=== PATIENT | female | born 1940 | race Caucasian/White ===

== ENCOUNTER 2016-11-13 09:54 | Outpatient (CLI) | payer MEDICARE, MEDICAID | END 2016-11-13 09:55 | disposition home or self-care (01) | DX: I80.209 Phlebitis and thrombophlebitis of unspecified deep vessels of unspecified lower extremity (principal) ==

== ENCOUNTER 2016-11-17 14:00 | Outpatient (CLI) | payer MEDICARE, MEDICAID | END 2016-11-17 14:01 | disposition home or self-care (01) | DX: R30.0 Dysuria (principal); F03.91 Unspecified dementia, unspecified severity, with behavioral disturbance ==

== ENCOUNTER 2016-12-19 08:18 | Outpatient (CLI) | payer MEDICARE, MEDICAID | END 2016-12-19 08:19 | disposition home or self-care (01) | DX: I80.209 Phlebitis and thrombophlebitis of unspecified deep vessels of unspecified lower extremity (principal); E03.9 Hypothyroidism, unspecified; D68.59 Other primary thrombophilia; R62.50 Unspecified lack of expected normal physiological development in childhood; R73.9 Hyperglycemia, unspecified ==

== ENCOUNTER 2017-01-29 10:39 | Outpatient (CLI) | payer MEDICARE, MEDICAID | END 2017-01-29 10:40 | disposition home or self-care (01) | DX: I80.209 Phlebitis and thrombophlebitis of unspecified deep vessels of unspecified lower extremity (principal) ==

== ENCOUNTER 2017-02-27 09:11 | Outpatient (CLI) | payer MEDICARE, MEDICAID ==
[2017-02-27 09:45] LABS: BASOPHILS % (AUTO) 0.6 %; EOSINOPHILS # (AUTO) 0.1 10^3/uL (0.0-0.7); EOSINOPHILS % (AUTO) 2.5 %; HCT - HEMATOCRIT 44.1 % (37.0-47.0); HGB - HEMOGLOBIN 14.4 g/dL (12.0-16.0); LYMPHOCYTES # (AUTO) 1.5 10^3/uL (1.5-3.5); LYMPHOCYTES % (AUTO) 34.9 %; MEAN CORPUSCULAR HEMOGLOBIN 30.4 pg (27.0-31.0); MEAN CORPUSCULAR HGB CONC 32.8 g/dL (32.0-36.0); MEAN CORPUSCULAR VOLUME 92.8 fL (81.0-99.0); MEAN PLATELET VOLUME 8.7 fL (7.9-10.8); MONOCYTES # (AUTO) 0.3 10^3/uL (0.0-1.0); MONOCYTES % (AUTO) 7.1 %; NEUTROPHILS # (AUTO) 2.4 10^3/uL (1.5-6.6); NEUTROPHILS % (AUTO) 54.9 %; NUCLEATED RED BLOOD CELLS AUTO 0.1 /100WBC; RED BLOOD COUNT 4.75 10^6/uL (4.20-5.40); RED CELL DISTRIBUTION WIDTH 14.8 % (12.0-15.0); UNCORRECTED WHITE BLOOD COUNT 4.4 x10^3/uL; WHITE BLOOD COUNT 4.4 x10^3/uL (4.8-10.8)
[2017-02-27 10:03] LABS: INR 2.3 (0.8-1.2); PT - PROTHROMBIN TIME 26.5 secs (9.9-12.6)
[2017-02-27 10:12] LABS: ALBUMIN/GLOBULIN RATIO 1.3 (1.0-2.2); BILIRUBIN,TOTAL 0.6 mg/dL (0.2-1.0); BUN - BLOOD UREA NITROGEN 13 mg/dL (6-20); CALCIUM 8.3 mg/dL (8.5-10.3); CARBON DIOXIDE - CO2 28 mmol/L (21-32); CHLORIDE 107 mmol/L (101-111); CHOL/HDL RATIO 2.9 (<4.4); CHOLESTEROL 149 mg/dL; CREATININE 0.8 mg/dL (0.4-1.0); GFR - MDRD 70 (>89); GLUCOSE 112 mg/dL (70-100); HDL CHOLESTEROL 52 mg/dL; LDL/HDL RATIO 1.4 (<4.4); POTASSIUM 3.6 mmol/L (3.5-5.0); SODIUM 142 mmol/L (135-145); TOTAL PROTEIN 6.4 g/dL (6.7-8.2); TRIGLYCERIDES 117 mg/dL; VLDL CHOLESTEROL 23 mg/dL
== END 2017-02-27 09:12 | disposition home or self-care (01) ==
LOC: LAB 09:11
PROVIDERS: ATTEND Family Medicine
DX: I80.209 Phlebitis and thrombophlebitis of unspecified deep vessels of unspecified lower extremity (principal); E03.9 Hypothyroidism, unspecified; D68.59 Other primary thrombophilia; R62.50 Unspecified lack of expected normal physiological development in childhood; R73.9 Hyperglycemia, unspecified
CPT/HCPCS: 36415; 80053; 80061; 84443; 85025; 85610

== ENCOUNTER 2017-04-02 09:55 | Outpatient (CLI) | payer MEDICARE, MEDICAID ==
[2017-04-02 10:22] LABS: INR 1.5 (0.8-1.2); PT - PROTHROMBIN TIME 16.3 secs (9.9-12.6)
== END 2017-04-02 09:56 | disposition home or self-care (01) ==
LOC: LAB 09:55
PROVIDERS: ATTEND Family Medicine
DX: I80.209 Phlebitis and thrombophlebitis of unspecified deep vessels of unspecified lower extremity (principal)
CPT/HCPCS: 36415; 85610

== ENCOUNTER 2017-04-16 10:13 | Outpatient (CLI) | payer MEDICARE, MEDICAID ==
[2017-04-16 10:32] LABS: INR 3.1 (0.8-1.2); PT - PROTHROMBIN TIME 34.6 secs (9.9-12.6)
== END 2017-04-16 10:14 | disposition home or self-care (01) ==
LOC: LAB 10:13
PROVIDERS: ATTEND Family Medicine
DX: I80.209 Phlebitis and thrombophlebitis of unspecified deep vessels of unspecified lower extremity (principal)
CPT/HCPCS: 36415; 85610

== ENCOUNTER 2017-04-24 09:30 | Outpatient (CLI) | payer MEDICARE, MEDICAID ==
[2017-04-24 10:17] LABS: PT - PROTHROMBIN TIME 45.4 secs (9.9-12.6)
== END 2017-04-24 09:31 | disposition home or self-care (01) ==
LOC: LAB 09:30
PROVIDERS: ATTEND Family Medicine
DX: I80.209 Phlebitis and thrombophlebitis of unspecified deep vessels of unspecified lower extremity (principal)
CPT/HCPCS: 36415; 85610

== ENCOUNTER 2017-05-08 09:29 | Outpatient (CLI) | payer MEDICARE, MEDICAID ==
[2017-05-08 09:53] LABS: INR 1.8 (0.8-1.2); PT - PROTHROMBIN TIME 20.1 secs (9.9-12.6)
== END 2017-05-08 09:30 | disposition home or self-care (01) ==
LOC: LAB 09:29
PROVIDERS: ATTEND Family Medicine
DX: I80.209 Phlebitis and thrombophlebitis of unspecified deep vessels of unspecified lower extremity (principal)
CPT/HCPCS: 36415; 85610

== ENCOUNTER 2017-05-14 09:53 | Outpatient (CLI) | payer MEDICARE, MEDICAID ==
[2017-05-14 10:24] LABS: INR 2.4 (0.8-1.2); PT - PROTHROMBIN TIME 26.6 secs (9.9-12.6)
== END 2017-05-14 09:54 | disposition home or self-care (01) ==
LOC: LAB 09:53
PROVIDERS: ATTEND Family Medicine
DX: I80.209 Phlebitis and thrombophlebitis of unspecified deep vessels of unspecified lower extremity (principal)
CPT/HCPCS: 36415; 85610

== ENCOUNTER 2017-05-28 10:15 | Outpatient (CLI) | payer MEDICARE, MEDICAID ==
[2017-05-28 10:41] LABS: INR 2.3 (0.8-1.2); PT - PROTHROMBIN TIME 26.3 secs (9.9-12.6)
== END 2017-05-28 10:16 | disposition home or self-care (01) ==
LOC: LAB 10:15
PROVIDERS: ATTEND Family Medicine
DX: I80.209 Phlebitis and thrombophlebitis of unspecified deep vessels of unspecified lower extremity (principal)
CPT/HCPCS: 36415; 85610

== ENCOUNTER 2017-06-25 10:31 | Outpatient (CLI) | payer MEDICARE, MEDICAID ==
[2017-06-25 11:08] LABS: INR 2.1 (0.8-1.2); PT - PROTHROMBIN TIME 23.9 secs (9.9-12.6)
== END 2017-06-25 10:32 | disposition home or self-care (01) ==
LOC: LAB 10:31
PROVIDERS: ATTEND Family Medicine
DX: I80.209 Phlebitis and thrombophlebitis of unspecified deep vessels of unspecified lower extremity (principal)
CPT/HCPCS: 36415; 85610

== ENCOUNTER 2017-07-23 10:40 | Outpatient (CLI) | payer MEDICARE, MEDICAID ==
[2017-07-23 11:16] LABS: INR 2.4 (0.8-1.2); PT - PROTHROMBIN TIME 26.8 secs (9.9-12.6)
== END 2017-07-23 10:41 | disposition home or self-care (01) ==
LOC: LAB 10:40
PROVIDERS: ATTEND Family Medicine
DX: I80.209 Phlebitis and thrombophlebitis of unspecified deep vessels of unspecified lower extremity (principal)
CPT/HCPCS: 36415; 85610

== ENCOUNTER 2017-09-01 10:34 | Outpatient (CLI) | payer MEDICARE, MEDICAID ==
[2017-09-01 11:39] LABS: BASOPHILS % (AUTO) 0.6 %; EOSINOPHILS # (AUTO) 0.1 10^3/uL (0.0-0.7); EOSINOPHILS % (AUTO) 1.5 %; HCT - HEMATOCRIT 42.6 % (37.0-47.0); LYMPHOCYTES % (AUTO) 23.6 %; MEAN CORPUSCULAR HEMOGLOBIN 30.6 pg (27.0-31.0); MEAN CORPUSCULAR HGB CONC 32.9 g/dL (32.0-36.0); MONOCYTES # (AUTO) 0.3 10^3/uL (0.0-1.0); MONOCYTES % (AUTO) 6.5 %; NEUTROPHILS # (AUTO) 2.9 10^3/uL (1.5-6.6); NEUTROPHILS % (AUTO) 67.8 %; RED BLOOD COUNT 4.57 10^6/uL (4.20-5.40); RED CELL DISTRIBUTION WIDTH 14.2 % (12.0-15.0); UNCORRECTED WHITE BLOOD COUNT 4.3 x10^3/uL; WHITE BLOOD COUNT 4.3 x10^3/uL (4.8-10.8)
[2017-09-01 11:45] LABS: INR 1.6 (0.8-1.2); PT - PROTHROMBIN TIME 17.9 secs (9.9-12.6)
[2017-09-01 12:02] LABS: ALBUMIN/GLOBULIN RATIO 1.2 (1.0-2.2); BILIRUBIN,TOTAL 0.6 mg/dL (0.2-1.0); BUN - BLOOD UREA NITROGEN 11 mg/dL (6-20); CALCIUM 8.7 mg/dL (8.5-10.3); CARBON DIOXIDE - CO2 27 mmol/L (21-32); CHLORIDE 103 mmol/L (101-111); CREATININE 0.9 mg/dL (0.4-1.0); GFR - MDRD 61 (>89); GLUCOSE 160 mg/dL (70-100); POTASSIUM 3.9 mmol/L (3.5-5.0); SODIUM 141 mmol/L (135-145); TOTAL PROTEIN 6.6 g/dL (6.7-8.2)
== END 2017-09-01 10:35 | disposition home or self-care (01) ==
LOC: LAB 10:34
PROVIDERS: ATTEND Family Medicine
DX: I80.209 Phlebitis and thrombophlebitis of unspecified deep vessels of unspecified lower extremity (principal); E03.9 Hypothyroidism, unspecified; F03.91 Unspecified dementia, unspecified severity, with behavioral disturbance; D68.59 Other primary thrombophilia; E78.5 Hyperlipidemia, unspecified
CPT/HCPCS: 36415; 80053; 84443; 85025; 85610

== ENCOUNTER 2017-09-24 10:50 | Outpatient (CLI) | payer MEDICARE, MEDICAID ==
[2017-09-24 11:57] LABS: INR 2.2 (0.8-1.2); PT - PROTHROMBIN TIME 24.5 secs (9.9-12.6)
== END 2017-09-24 10:51 | disposition home or self-care (01) ==
LOC: LAB 10:50
PROVIDERS: ATTEND Family Medicine
DX: I80.209 Phlebitis and thrombophlebitis of unspecified deep vessels of unspecified lower extremity (principal)
CPT/HCPCS: 36415; 85610

== ENCOUNTER 2017-12-17 10:44 | Outpatient (CLI) | payer MEDICARE, MEDICAID ==
[2017-12-17 11:06] LABS: INR 3.5 (0.8-1.2); PT - PROTHROMBIN TIME 37.5 secs (9.9-12.6)
== END 2017-12-17 10:45 | disposition home or self-care (01) ==
LOC: LAB 10:44
PROVIDERS: ATTEND Family Medicine
DX: I80.209 Phlebitis and thrombophlebitis of unspecified deep vessels of unspecified lower extremity (principal)
CPT/HCPCS: 36415; 85610

== ENCOUNTER 2017-12-31 10:29 | Outpatient (CLI) | payer MEDICARE, MEDICAID ==
[2017-12-31 11:08] LABS: INR 2.3 (0.8-1.2); PT - PROTHROMBIN TIME 24.9 secs (9.9-12.6)
== END 2017-12-31 10:30 | disposition home or self-care (01) ==
LOC: LAB 10:29
PROVIDERS: ATTEND Family Medicine
DX: I80.209 Phlebitis and thrombophlebitis of unspecified deep vessels of unspecified lower extremity (principal)
CPT/HCPCS: 36415; 85610

== ENCOUNTER 2018-01-07 10:35 | Outpatient (CLI) | payer MEDICARE, MEDICAID ==
[2018-01-07 11:14] LABS: INR 3.6 (0.8-1.2); PT - PROTHROMBIN TIME 38.3 secs (9.9-12.6)
== END 2018-01-07 10:36 | disposition home or self-care (01) ==
LOC: LAB 10:35
PROVIDERS: ATTEND Family Medicine
DX: I80.209 Phlebitis and thrombophlebitis of unspecified deep vessels of unspecified lower extremity (principal)
CPT/HCPCS: 36415; 85610

== ENCOUNTER 2018-01-15 10:22 | Outpatient (CLI) | payer MEDICARE, MEDICAID ==
[2018-01-15 11:17] LABS: INR 2.5 (0.8-1.2); PT - PROTHROMBIN TIME 26.8 secs (9.9-12.6)
== END 2018-01-15 10:23 | disposition home or self-care (01) ==
LOC: LAB 10:22
PROVIDERS: ATTEND Family Medicine
DX: I80.209 Phlebitis and thrombophlebitis of unspecified deep vessels of unspecified lower extremity (principal)
CPT/HCPCS: 36415; 85610

== ENCOUNTER 2018-01-21 10:16 | Outpatient (CLI) | payer MEDICARE, MEDICAID ==
[2018-01-21 10:39] LABS: INR 2.9 (0.8-1.2); PT - PROTHROMBIN TIME 31.3 secs (9.9-12.6)
== END 2018-01-21 10:17 | disposition home or self-care (01) ==
LOC: LAB 10:16
PROVIDERS: ATTEND Family Medicine
DX: I80.209 Phlebitis and thrombophlebitis of unspecified deep vessels of unspecified lower extremity (principal)
CPT/HCPCS: 36415; 85610

== ENCOUNTER 2018-02-04 10:33 | Outpatient (CLI) | payer MEDICARE, MEDICAID ==
[2018-02-04 11:10] LABS: INR 2.8 (0.8-1.2); PT - PROTHROMBIN TIME 30.9 secs (9.9-12.6)
== END 2018-02-04 10:34 | disposition home or self-care (01) ==
LOC: LAB 10:33
PROVIDERS: ATTEND Family Medicine
DX: I80.209 Phlebitis and thrombophlebitis of unspecified deep vessels of unspecified lower extremity (principal)
CPT/HCPCS: 36415; 85610

== ENCOUNTER 2018-03-29 10:07 | Outpatient (CLI) | payer MEDICARE, MEDICAID ==
[2018-03-29 10:41] LABS: PT - PROTHROMBIN TIME 32.7 secs (9.9-12.6)
== END 2018-03-29 10:08 | disposition home or self-care (01) ==
LOC: LAB 10:07
PROVIDERS: ATTEND Family Medicine
DX: I80.209 Phlebitis and thrombophlebitis of unspecified deep vessels of unspecified lower extremity (principal)
CPT/HCPCS: 36415; 85610

== ENCOUNTER 2018-05-04 10:05 | Outpatient (CLI) | payer MEDICARE, MEDICAID ==
[2018-05-04 11:18] LABS: INR 1.7 (0.8-1.2); PT - PROTHROMBIN TIME 18.7 secs (9.9-12.6)
== END 2018-05-04 10:06 | disposition home or self-care (01) ==
LOC: LAB 10:05
PROVIDERS: ATTEND Family Medicine
DX: I80.209 Phlebitis and thrombophlebitis of unspecified deep vessels of unspecified lower extremity (principal)
CPT/HCPCS: 36415; 85610

== ENCOUNTER 2018-05-14 10:21 | Outpatient (CLI) | payer MEDICARE, MEDICAID ==
[2018-05-14 10:52] LABS: INR 2.6 (0.8-1.2); PT - PROTHROMBIN TIME 28.7 secs (9.9-12.6)
== END 2018-05-14 10:22 | disposition home or self-care (01) ==
LOC: LAB 10:21
PROVIDERS: ATTEND Family Medicine
DX: I80.209 Phlebitis and thrombophlebitis of unspecified deep vessels of unspecified lower extremity (principal)
CPT/HCPCS: 36415; 85610

== ENCOUNTER 2018-07-06 10:46 | Outpatient (CLI) | payer MEDICARE, MEDICAID ==
[2018-07-06 11:21] LABS: INR 3.4 (0.8-1.2); PT - PROTHROMBIN TIME 36.4 secs (9.9-12.6)
== END 2018-07-06 10:47 | disposition home or self-care (01) ==
LOC: LAB 10:46
PROVIDERS: ATTEND Family Medicine
DX: I80.209 Phlebitis and thrombophlebitis of unspecified deep vessels of unspecified lower extremity (principal)
CPT/HCPCS: 36415; 85610

== ENCOUNTER 2018-07-20 14:55 | Outpatient (CLI) | payer MEDICARE, MEDICAID ==
--- NOTE | 2018-07-20 16:38 | Ultrasound Report ---
Reason: LEG EDEMA, RIGHT Procedure Date: 07/20/2018 Accession Number: [id number] / [id number] Procedure: US - Duplex Ext Veins Right CPT Code: FULL RESULT: EXAM: RIGHT LOWER EXTREMITY VENOUS ULTRASOUND EXAM DATE: 07/20/2018 03:59 PM. CLINICAL HISTORY: LEG EDEMA, RIGHT. COMPARISON: None. TECHNIQUE: Real-time sonographic vascular imaging was performed by the library technician through the lower extremity utilizing both color-flow and Doppler spectral analysis. Multiple patient admitting representative static images were saved for review. FINDINGS: Right side Common Femoral Vein (CFV): Normal. CFV-GSV [place]unction, Profunda Femoral Vein (PFV), and Proximal Femoral Vein: Small amount of nonocclusive predominantly linear material within the veins , question residual thrombus. Femoral Vein (FV) Mid: Normal. Femoral Vein (FV) Dist: Normal. Popliteal Vein: Normal. Posterior Tibial Veins and peroneal Veins: Obscured by lower extremity edema. Other: None. IMPRESSION: No evidence for occlusive venous thrombosis right lower extremity above the knee. Linear material within the proximal profundafemoral and femoral veins may represent residual organized thrombus from prior DVT. RADIA
== END 2018-07-20 14:56 | disposition home or self-care (01) ==
LOC: DI 14:55
PROVIDERS: ATTEND Physician Assistant
DX: R60.0 Localized edema (principal); Z86.718 Personal history of other venous thrombosis and embolism; Z79.01 Long term (current) use of anticoagulants

== ENCOUNTER 2018-09-02 11:10 | Outpatient (CLI) | payer MEDICARE, MEDICAID | END 2018-09-02 11:11 | disposition home or self-care (01) | LOC: LAB 11:10 | PROVIDERS: ATTEND Family Medicine | DX: D68.59 Other primary thrombophilia (principal) | CPT/HCPCS: 85610 ==

== ENCOUNTER 2018-12-07 10:43 | Outpatient (CLI) | payer MEDICARE, MEDICAID | END 2018-12-07 10:44 | disposition home or self-care (01) | LOC: LAB 10:43 | PROVIDERS: ATTEND Family Medicine | DX: D68.59 Other primary thrombophilia (principal) | CPT/HCPCS: 85610 ==

== ENCOUNTER 2018-12-21 11:01 | Outpatient (CLI) | payer MEDICARE, MEDICAID | END 2018-12-21 11:02 | disposition home or self-care (01) | LOC: LAB 11:01 | PROVIDERS: ATTEND Family Medicine | DX: D68.59 Other primary thrombophilia (principal) | CPT/HCPCS: 85610 ==

== ENCOUNTER 2019-01-23 08:00 | Outpatient (CLI) | payer MEDICARE, MEDICAID | END 2019-01-23 23:59 | disposition home or self-care (01) | LOC: LAB.R 08:00 | PROVIDERS: ATTEND Family Medicine | DX: N39.0 Urinary tract infection, site not specified (principal) | CPT/HCPCS: 87086; 87181 ==

== ENCOUNTER 2019-02-07 14:37 | Outpatient (CLI) | payer MEDICARE, MEDICAID | END 2019-02-07 14:38 | disposition home or self-care (01) | LOC: LAB 14:37 | PROVIDERS: ATTEND Family Medicine | DX: D68.59 Other primary thrombophilia (principal) | CPT/HCPCS: 85610 ==

== ENCOUNTER 2019-02-16 08:00 | Outpatient (CLI) | payer MEDICARE, MEDICAID | END 2019-02-16 23:59 | disposition home or self-care (01) | LOC: LAB.WCP 08:00 | PROVIDERS: ATTEND Family Medicine | DX: D68.59 Other primary thrombophilia (principal) ==

== ENCOUNTER 2019-03-10 10:05 | Outpatient (CLI) | payer MEDICARE, MEDICAID ==
[2019-03-10 11:00] LABS: BASOPHILS % (AUTO) 0.7 %; EOSINOPHILS # (AUTO) 0.1 10^3/uL (0.0-0.7); EOSINOPHILS % (AUTO) 2.1 %; LYMPHOCYTES # (AUTO) 1.5 10^3/uL (1.5-3.5); LYMPHOCYTES % (AUTO) 32.3 %; MEAN CORPUSCULAR HEMOGLOBIN 30.9 pg (27.0-31.0); MEAN CORPUSCULAR HGB CONC 33.1 g/dL (32.0-36.0); MEAN CORPUSCULAR VOLUME 93.4 fL (81.0-99.0); MEAN PLATELET VOLUME 8.3 fL (7.9-10.8); MONOCYTES # (AUTO) 0.4 10^3/uL (0.0-1.0); MONOCYTES % (AUTO) 7.5 %; NEUTROPHILS # (AUTO) 2.7 10^3/uL (1.5-6.6); NEUTROPHILS % (AUTO) 57.4 %; PLT - PLATELET COUNT 158 10^3/uL (130-450); RED BLOOD COUNT 4.53 10^6/uL (4.20-5.40); RED CELL DISTRIBUTION WIDTH 14.7 % (12.0-15.0); WHITE BLOOD COUNT 4.8 x10^3/uL (4.8-10.8)
[2019-03-10 11:15] LABS: ALBUMIN 3.8 g/dL (3.2-5.5); ALBUMIN/GLOBULIN RATIO 1.3 (1.0-2.2); ALKALINE PHOSPHATASE 68 IU/L (42-121); ALT ALANINE AMINOTRANSFERASE 13 IU/L (10-60); AST ASPARTATE AMINOTRANSFERASE 17 IU/L (10-42); BILIRUBIN,TOTAL 0.7 mg/dL (0.2-1.0); BUN - BLOOD UREA NITROGEN 15 mg/dL (6-20); CALCIUM 8.5 mg/dL (8.5-10.3); CARBON DIOXIDE - CO2 25 mmol/L (21-32); CHLORIDE 107 mmol/L (101-111); CHOL/HDL RATIO 2.5 (<4.4); CHOLESTEROL 157 mg/dL; CREATININE 0.9 mg/dL (0.4-1.0); GFR - MDRD 61 (>89); GLUCOSE 116 mg/dL (70-100); HDL CHOLESTEROL 64 mg/dL; LDL CHOLESTEROL,CALCULATED 61 mg/dL; SODIUM 144 mmol/L (135-145); TOTAL PROTEIN 6.8 g/dL (6.7-8.2); VLDL CHOLESTEROL 32 mg/dL
== END 2019-03-10 10:06 | disposition home or self-care (01) ==
LOC: LAB 10:05
PROVIDERS: ATTEND Family Medicine
DX: D68.59 Other primary thrombophilia (principal); E03.9 Hypothyroidism, unspecified; E78.5 Hyperlipidemia, unspecified
CPT/HCPCS: 36415; 80053; 80061; 83721; 84443; 85025; 85610

== ENCOUNTER 2019-03-10 10:40 | Emergency (ER) | payer MEDICARE, MEDICAID ==
--- NOTE | 2019-03-10 11:17 | ED Physician Documentation ---
PD HPI LOWER EXT INJURY - Stated complaint Stated Complaint: RT KNEE PX - Chief complaint Chief Complaint: Trauma Ext - History obtained from History obtained from: Patient - History of Present Illness PD HPI LOW EXT INJURY LOCATION: Right, Knee Type of injury: Twist (maybe). No: Fall, Blunt / blow Where injury occurred: Home Timing - onset: How many days ago (3) Timing - duration: Days (3) Timing - details: Gradual onset, Still present. No: Abrupt onset Improved by: No: Rest Worsened by: Moving. No: Palpating Associated symptoms: Swelling (some swelling right anterior knee.). No: Weakness, Numbness Similar symptoms before: Diagnosis (knee arthritis) Review of Systems Constitutional: denies: Fever, Chills Cardiac: denies: Chest pain / pressure, Palpitations Respiratory: denies: Dyspnea, Cough Skin: denies: Rash, Lesions PD PAST MEDICAL HISTORY - Past Medical History Cardiovascular: None Musculoskeletal: Osteoarthritis - Present Medications Home Medications: Ambulatory Orders Medication Instructions Recorded Confirmed Naproxen 375 mg PO BID #20 tablet 03/10/19 Tramadol HCl 50 mg PO Q6H PRN #20 tablet 03/10/19 - Allergies Allergies/Adverse Reactions: Allergies Allergy/AdvReac Type Severity Reaction Status Date / Time No Known Drug Allergies Allergy Verified 03/10/19 10:50 PD ED PE NORMAL - Vitals Vital signs reviewed: Yes - General General: Alert and oriented X 3, No acute distress, Well developed/nourished - Neck Neck: Supple, no meningeal sign, No adenopathy - Cardiac Cardiac: RRR, No murmur - Respiratory Respiratory: Clear bilaterally - Derm Derm: Normal color - Extremities Extremities: Other (right knee with some swelling anteriorly and mild joint effusion. No redness nor warmth to it.) - Neuro Neuro: No motor deficit, No sensory deficit Results - Vitals Vitals: Vital Signs - 24 hr 03/10/19 10:45 Temperature 36.7 C Heart Rate 75 Respiratory 18 Rate O2 Saturation 95 Oxygen O2 Source Room air - Rads (name of study) right knee Radiology: Prelim report reviewed (significant arthritis; no fractures), See rad report PD MEDICAL DECISION MAKING - ED course Complexity details: considered differential, d/w patient (and one of the owners of her [facility]. ) Departure - Departure Disposition: 01 Home, Self Care Clinical Impression: Knee pain, acute Qualifiers: Laterality: right Qualified Code(s): M25.561 - Pain in right knee Acute meniscal injury of knee Qualifiers: Encounter type: initial encounter Laterality: right Qualified Code(s): S83.8X1A - Sprain of other specified parts of right knee, initial encounter Condition: Stable Record reviewed to determine appropriate education?: Yes Instructions: ED Meniscal Injury Knee Poss Follow-Up: Brayden Leigh MD [Primary Care Provider] - Prescriptions: Naproxen 375 mg PO BID #20 tablet Tramadol HCl 50 mg PO Q6H PRN #20 tablet PRN Reason: Pain Comments: There is significant arthritis as expected on your knee x-ray. No obvious fractures. Your symptoms and exam are suggestive of a cartilage problem (meniscus). Use the knee brace when up and around over the next week. You do not have to wear it when you rested and in fact to be good to have it off when resting so your knee does not get too stiff. Use some anti-inflammatories of naproxen twice daily for the next week. Use Tylenol 3 or 4 times a day regularly for the next week. To that add tramadol if needed for pain. Follow-up with your primary care next week for reevaluation of the knee. Call for an appointment. Discharge Date/Time: 03/10/19 12:36
--- NOTE | 2019-03-10 11:32 | XRAY Report ---
Reason: knee pain Procedure Date: 03/10/2019 Accession Number: [id number] / [id number] Procedure: XR - Knee 4 View RT CPT Code: FULL RESULT: EXAM: RIGHT KNEE RADIOGRAPHY EXAM DATE: 03/10/2019 10:57 AM. CLINICAL HISTORY: Knee pain. COMPARISON: KNEE 2 VIEW RT 07/06/2018 2:00 PM. TECHNIQUE: 3 views. FINDINGS: Bones: No acute bony abnormality. Joints: Tricompartmental osteoarthritis which is severe in the patellofemoral compartment. No joint effusion. Soft Tissues: Normal. No soft tissue swelling. IMPRESSION: 1. No acute bony abnormality or joint effusion. 2. Severe patellofemoral joint osteoarthritis. RADIA
[2019-03-10] MEDS ORDERED: traMADol 50 MG TABLET PO STA (11:46)
[2019-03-10] MEDS ORDERED: ACETAMINOPHEN 325 MG TABLET PO STA (11:46)
== END 2019-03-10 12:36 | disposition home or self-care (01) ==
LOC: ED 10:40
DX: S83.8X1A Sprain of other specified parts of right knee, initial encounter (principal); X50.1XXA Overexertion from prolonged static or awkward postures, initial encounter; Y92.099 Unspecified place in other non-institutional residence as the place of occurrence of the external cause; M17.11 Unilateral primary osteoarthritis, right knee; D68.59 Other primary thrombophilia; E03.9 Hypothyroidism, unspecified; E78.5 Hyperlipidemia, unspecified
CPT/HCPCS: 73564; 99283; A9270; 36415; 80053; 80061; 83721; 84443; 85025; 85610

== ENCOUNTER 2019-04-13 09:37 | Outpatient (CLI) | payer MEDICARE, MEDICAID | END 2019-04-13 09:38 | disposition home or self-care (01) | LOC: LAB 09:37 | PROVIDERS: ATTEND Family Medicine | DX: D68.59 Other primary thrombophilia (principal) | CPT/HCPCS: 85610 ==

== ENCOUNTER 2019-04-15 15:10 | Outpatient (CLI) | payer MEDICARE, MEDICAID ==
[2019-04-15 18:43] LABS: BASOPHILS % (AUTO) 0.6 %; EOSINOPHILS # (AUTO) 0.1 10^3/uL (0.0-0.7); EOSINOPHILS % (AUTO) 1.1 %; HGB - HEMOGLOBIN 12.9 g/dL (12.0-16.0); LYMPHOCYTES # (AUTO) 1.7 10^3/uL (1.5-3.5); LYMPHOCYTES % (AUTO) 31.4 %; MEAN CORPUSCULAR HEMOGLOBIN 29.7 pg (27.0-31.0); MEAN CORPUSCULAR HGB CONC 30.1 g/dL (32.0-36.0); MEAN CORPUSCULAR VOLUME 98.6 fL (81.0-99.0); MEAN PLATELET VOLUME 10.8 fL (7.9-10.8); MONOCYTES # (AUTO) 0.4 10^3/uL (0.0-1.0); MONOCYTES % (AUTO) 6.4 %; NEUTROPHILS # (AUTO) 3.3 10^3/uL (1.5-6.6); NEUTROPHILS % (AUTO) 60.1 %; PLT - PLATELET COUNT 248 10^3/uL (130-450); RED BLOOD COUNT 4.34 10^6/uL (4.20-5.40); RED CELL DISTRIBUTION WIDTH 14.6 % (12.0-15.0); WHITE BLOOD COUNT 5.4 x10^3/uL (4.8-10.8)
[2019-04-15 19:16] LABS: ALBUMIN 3.4 g/dL (3.2-5.5); BILIRUBIN,TOTAL 0.7 mg/dL (0.2-1.0); CALCIUM 8.7 mg/dL (8.5-10.3); CREATININE 0.9 mg/dL (0.4-1.0); TOTAL PROTEIN 6.7 g/dL (6.7-8.2)
== END 2019-04-15 15:11 | disposition home or self-care (01) ==
LOC: LAB.WCP 15:10
PROVIDERS: ATTEND Family Medicine
DX: R60.0 Localized edema (principal); R25.1 Tremor, unspecified
CPT/HCPCS: 36415; 80053; 84443; 85025

== ENCOUNTER 2019-05-10 17:34 | Outpatient (CLI) | payer MEDICARE, MEDICAID | END 2019-05-10 17:35 | disposition home or self-care (01) | LOC: LAB 17:34 | PROVIDERS: ATTEND Family Medicine | DX: D68.59 Other primary thrombophilia (principal) | CPT/HCPCS: 85610 ==

== ENCOUNTER 2019-05-24 10:21 | Outpatient (CLI) | payer MEDICARE, MEDICAID | END 2019-05-24 10:22 | disposition home or self-care (01) | LOC: LAB 10:21 | PROVIDERS: ATTEND Family Medicine | DX: D68.59 Other primary thrombophilia (principal) | CPT/HCPCS: 85610 ==

== ENCOUNTER 2019-06-22 09:39 | Outpatient (CLI) | payer MEDICARE, MEDICAID | END 2019-06-22 09:40 | disposition home or self-care (01) | LOC: LAB 09:39 | PROVIDERS: ATTEND Family Medicine | DX: D68.59 Other primary thrombophilia (principal) | CPT/HCPCS: 85610 ==

== ENCOUNTER 2019-07-22 18:40 | Emergency (ER) | payer MEDICARE, MEDICAID ==
[2019-07-22] MEDS ORDERED: MELOXICAM 7.5 MG TABLET PO STA (20:07)
--- NOTE | 2019-07-22 20:11 | ED Physician Documentation ---
History of Present Illness - Stated complaint Stated Complaint: RT KNEE PX - Chief complaint Chief Complaint: Ext Problem - History obtained from History obtained from: Patient, Family - History of Present Illness Timing: Other (4 months) Pain level max: 5 Pain level now: 2 - Additonal information Additional information: Patient with right knee pain for at least 4 months. Her family home brought her in tonight in an attempt to get an MRI for her knee. There is no new injury. She uses a walker to ambulate. She is not wearing her brace. She never followed up with her primary care provider or orthopedics for further evaluation of her potential meniscus injury 4 months ago. She is taken Tylenol for pain. Review of Systems Constitutional: denies: Fever Musculoskeletal: denies: Neck pain, Back pain PD PAST MEDICAL HISTORY - Past Medical History Past Medical History: Yes Cardiovascular: None Endocrine/Autoimmune: HyPOthyroidism GI: Chronic constipation Psych: Anxiety Musculoskeletal: Osteoarthritis Derm: Psoriasis - Past Surgical History Past Surgical History: No - Present Medications Home Medications: Ambulatory Orders Medication Instructions Recorded Confirmed Naproxen 375 mg PO BID #20 tablet 03/10/19 07/22/19 Diclofenac Sodium [Voltaren] 4 gm TP TID PRN #1 gel..gram. 07/22/19 Levothyroxine [Synthroid] 1 tab PO DAILY 07/22/19 07/22/19 Potassium Chloride [K-Dur] 10 meq PO DAILY 07/22/19 07/22/19 Simvastatin [Zocor] 20 mg PO DAILY 07/22/19 07/22/19 Torsemide 40 mg PO DAILY 07/22/19 07/22/19 Warfarin [Coumadin] 5 mg PO DAILY 07/22/19 07/22/19 risperiDONE [Risperdal] 1 tab PO BID 07/22/19 07/22/19 traZODone [Desyrel] 200 mg PO DAILY 07/22/19 07/22/19 - Allergies Allergies/Adverse Reactions: Allergies Allergy/AdvReac Type Severity Reaction Status Date / Time Penicillins Allergy Unknown Verified 07/22/19 19:30 - Social History Does the pt smoke?: No Smoking Status: Never smoker Does the pt drink ETOH?: No Does the pt have substance abuse?: No - Immunizations Immunizations are current?: Yes - POLST Patient has POLST: No PD ED PE NORMAL - Vitals Vital signs reviewed: Yes - General General: Alert and oriented X 3, No acute distress - HEENT HEENT: Moist mucous membranes - Neck Neck: Supple, no meningeal sign - Extremities Extremities: No tenderness to palpate, Normal ROM s pain, No edema, No calf tenderness / cord, Other (Normal examination of the right knee.) - Neuro Neuro: Alert and oriented X 3 Results - Vitals Vitals: Oxygen O2 Source Room air - Labs Labs: Laboratory Tests 07/22/19 20:19 Whole Blood INR 1.9 H - Rads (name of study) Right knee x-ray Radiology: Prelim report reviewed, EMP read contemporaneously, See rad report (No acute abnormality) PD MEDICAL DECISION MAKING - ED course Complexity details: reviewed results, considered differential, d/w patient ED course: No acute abnormalities. No emergency medical condition. Will trial on Voltaren gel for home. Recommend that they keep her in the brace to help with her knee and that she follow-up with orthopedics and her doctor. Patient counseled regarding signs and symptoms for which I believe and urgent re-evaluation would be necessary. Patient with good understanding of and agreement to plan and is comfortable going home at this time This document was made in part using voice recognition software. While efforts are made to proofread this document, sound alike and grammatical errors may occur. Departure - Departure Disposition: 01 Home, Self Care Clinical Impression: Osteoarthritis Qualifiers: Osteoarthritis location: knee Osteoarthritis type: unspecified Laterality: right Qualified Code(s): M17.11 - Unilateral primary osteoarthritis, right knee Condition: Good Instructions: ED Degenerative Joint Disease Follow-Up: Brayden Leigh MD [Primary Care Provider] - Within 1 week [facility] [Provider Group] Prescriptions: Diclofenac Sodium [Voltaren] 4 gm TP TID PRN #1 gel..gram. PRN Reason: knee pain Comments: The x-ray does not show any significant changes. She needs to use the brace at home. We will trial her on Voltaren gel and see if this helps her symptoms. She can follow-up with her doctor and orthopedics for further care. Discharge Date/Time: 07/22/19 21:39
--- NOTE | 2019-07-22 21:05 | XRAY Report ---
Reason: R knee pain, no injury Procedure Date: 07/22/2019 Accession Number: [id number] / [id number] Procedure: XR - Knee 4 View RT CPT Code: FULL RESULT: EXAM: RIGHT KNEE RADIOGRAPHY EXAM DATE: 07/22/2019 08:33 PM. CLINICAL HISTORY: Right knee pain. COMPARISON: KNEE 4 VIEW RT 03/10/2019 10:57 AM. TECHNIQUE: 4 views. FINDINGS: Bones: The bones are osteopenic. No displaced acute fracture identified. No suspicious osseous lesion. Joints: Severe patellofemoral compartment osteoarthritis with small knee joint effusion, similar to prior. Again moderate medial and lateral compartment osteoarthritis. No dislocation. Other: Diffuse soft tissue swelling. IMPRESSION: 1. No acute osseous abnormality. 2. No significant change from prior. RADIA
[2019-07-22 21:37] VITALS: BP 155/86
== END 2019-07-22 21:39 | disposition home or self-care (01) ==
LOC: ED 18:40
DX: M17.11 Unilateral primary osteoarthritis, right knee (principal); Z91.19 Patient's noncompliance with other medical treatment and regimen; Z79.01 Long term (current) use of anticoagulants
CPT/HCPCS: 73564; 85610; 99284; A9270

== ENCOUNTER 2019-10-05 07:00 | Outpatient (CLI) | payer MEDICARE, MEDICAID | END 2019-10-05 23:59 | disposition home or self-care (01) | LOC: LAB.R 07:00 | PROVIDERS: ATTEND Family Medicine | DX: N39.0 Urinary tract infection, site not specified (principal) | CPT/HCPCS: 87086 ==

== ENCOUNTER 2020-01-11 11:02 | Outpatient (CLI) | payer MEDICARE, MEDICAID | END 2020-01-11 11:03 | disposition critical access hospital (66) | LOC: EMS 11:02 | PROVIDERS: ATTEND Surgery | DX: R41.82 Altered mental status, unspecified (principal) | CPT/HCPCS: A0425; A0427 ==

== ENCOUNTER 2020-01-11 11:16 | Inpatient (IN) | payer MEDICARE, MEDICAID ==
--- NOTE | 2020-01-11 11:20 | ED Physician Documentation ---
PD HPI ALTERED MENTAL STATUS - Stated complaint Stated Complaint: POSS STROKE - History obtained from History obtained from: EMS - History of Present Illness Timing - onset: Today (79-year-old woman who is on warfarin I guess became very altered this morning around 930 with some strokelike symptoms. She is somnolent and unable to give any history. Per the paramedics her blood sugar was in the 190s prior to arrival.) Review of Systems Unable to obtain: AMS PD PAST MEDICAL HISTORY - Past Medical History Cardiovascular: None Endocrine/Autoimmune: HyPOthyroidism GI: Chronic constipation Psych: Anxiety Musculoskeletal: Osteoarthritis Derm: Psoriasis - Past Surgical History Past Surgical History: No - Present Medications Home Medications: Ambulatory Orders Medication Instructions Recorded Confirmed Naproxen 375 mg PO BID #20 tablet 03/10/19 07/22/19 Diclofenac Sodium [Voltaren] 4 gm TP TID PRN #1 gel..gram. 07/22/19 Levothyroxine [Synthroid] 1 tab PO DAILY 07/22/19 07/22/19 Potassium Chloride [K-Dur] 10 meq PO DAILY 07/22/19 07/22/19 Simvastatin [Zocor] 20 mg PO DAILY 07/22/19 07/22/19 Torsemide 40 mg PO DAILY 07/22/19 07/22/19 Warfarin [Coumadin] 5 mg PO DAILY 07/22/19 07/22/19 risperiDONE [Risperdal] 1 tab PO BID 07/22/19 07/22/19 traZODone [Desyrel] 200 mg PO DAILY 07/22/19 07/22/19 - Allergies Allergies/Adverse Reactions: Allergies Allergy/AdvReac Type Severity Reaction Status Date / Time Penicillins Allergy Unknown Verified 07/22/19 19:30 - Social History Does the pt smoke?: No Smoking Status: Never smoker Does the pt drink ETOH?: No Does the pt have substance abuse?: No - Immunizations Immunizations are current?: Yes - POLST Patient has POLST: No PD ED PE NORMAL - Vitals Vital signs reviewed: Yes - General General: Other (She is somnolent, snoring respirations. She does not arouse.) - HEENT HEENT: Other (Left eye is everted which I guess is chronic per paramedics.) - Neck Neck: Supple, no meningeal sign, No bony TTP - Cardiac Cardiac: Other (Irregularly irregular) - Respiratory Respiratory: No respiratory distress, Clear bilaterally - Abdomen Abdomen: Soft, Non tender - Neuro Neuro: Other (She withdraws to painful stimulus in all 4 extremities; She seems to have some spontaneous motion in the right upper extremity. Nothing really volitional though.) Eye Opening: None Motor: Withdraws to Pain Verbal: None GCS Score: 6 NIHSS - Time Time: 11:20 - Level of Consciousness Level of consciousness: (3) Responds only with reflex motor or autonomic effects LOC Questions: (2) Answers neither correct LOC Commands: (2)Performs none - Gaze Best Gaze: (2) Forced deviation - Visual Visual: (0) No loss - Facial Palsy Facial Palsy: (3) Complete paralysis - Motor Arms (both separate) Motor Arm (right): (2) Some effort against gravity Motor Arm (left): (4) No movement - Motor Legs (both separate) Motor Leg (right): (2) Some effort against gravity Motor Leg (left): (2) Some effort against gravity - Limb Ataxia Limb Ataxia: (0) Absent - Sensory Sensory: (0) Normal - Best Language Best Language: (3) Mute, global aphasia - Dysarthria Dysarthria: (-) Intubated or other barrier, use comment - Extinction and Inattention (formally neg Extinction and inattention: (2) Profound ariella-inattention or extinction to more than one modality - Total Score/Results Total Score/Result: 27 Results - Vitals Vitals: Vital Signs - 24 hr 01/11/20 01/11/20 01/11/20 11:28 12:11 12:14 Temperature Heart Rate 85 82 94 Respiratory 20 15 17 Rate Blood Pressure 101/62 111/65 105/58 L O2 Saturation 91 L 100 89 L 01/11/20 01/11/20 01/11/20 12:18 12:30 12:42 Temperature Heart Rate 101 H 80 76 Respiratory 16 15 13 Rate Blood Pressure 161/70 H 113/50 L 118/68 O2 Saturation 100 100 99 01/11/20 01/11/20 01/11/20 12:54 13:00 13:15 Temperature 36.3 C L 36.3 C L Heart Rate 79 75 77 Respiratory 16 16 16 Rate Blood Pressure 121/73 127/61 126/74 O2 Saturation 100 100 100 01/11/20 01/11/20 13:30 13:50 Temperature 36.3 C L 36.3 C L Heart Rate 77 72 Respiratory 16 49 H Rate Blood Pressure 137/76 H 120/69 O2 Saturation 100 100 Oxygen O2 Source Mechanical ventilator Oxygen Flow Rate 15 - EKG (time done) 1136 Rate: Rate (enter#) (95) Rhythm: Atrial flutter (with pvcs) [place]: RAD Intervals: Normal [place] QRS: Normal Ischemia: Normal ST segments Computer interpretation: Agree with computer - Labs Labs: Laboratory Tests 01/11/20 01/11/20 01/11/20 11:37 11:37 11:37 WBC 3.3 L RBC 3.98 L Hgb 12.5 Hct 39.8 MCV 100.0 H MCH 31.4 H MCHC 31.4 L RDW 14.0 Plt Count 136 MPV 10.3 Neut # (Auto) 2.0 Lymph # (Auto) 1.0 L [place]elope # (Auto) 0.3 Eos # (Auto) 0.1 Baso # (Auto) 0.0 Absolute Nucleated RBC 0.00 Nucleated RBC % 0.0 PT 48.9 H INR 4.7 H* Whole Blood INR Bld Gas Analysis Time Sample Site ABG pH ABG pCO2 ABG pO2 ABG HCO3 ABG Total CO2 ABG O2 Saturation ABG Base Excess Ruperto Test Respiration Rate O2 Delivery Device Vent Mode FiO2 Tidal Volume PEEP Pressure Support Vent Sodium 138 Potassium 3.8 Chloride 105 Carbon Dioxide 26 Anion Gap 7.0 BUN 13 Creatinine 0.8 Estimated GFR (MDRD) 70 L Glucose 151 H Calcium 8.1 L Total Bilirubin 0.2 AST 16 ALT 10 Alkaline Phosphatase 62 Troponin I High Sens Total Protein 5.9 L Albumin 3.1 L Globulin 2.8 Albumin/Globulin Ratio 1.1 Lipase 43 Urine Color Urine Clarity Urine pH Ur Specific [place] Urine Protein Urine Glucose (UA) Urine Ketones Urine Occult Blood Urine Nitrite Urine Bilirubin Urine Urobilinogen Ur Leukocyte Esterase Ur Microscopic Review Urine Culture Comments Urine Opiates Screen Ur Oxycodone Screen Urine Methadone Screen Ur Propoxyphene Screen Ur Barbiturates Screen Ur Tricyclics Screen Ur Phencyclidine Scrn Ur Amphetamine Screen U Methamphetamines Scrn U Benzodiazepines Scrn Urine Cocaine Screen U Cannabinoids Screen Ethyl Alcohol < 5.0 01/11/20 01/11/20 01/11/20 11:42 12:32 12:47 WBC RBC Hgb Hct MCV MCH MCHC RDW Plt Count MPV Neut # (Auto) Lymph # (Auto) Antelope # (Auto) Eos # (Auto) Baso # (Auto) Absolute Nucleated RBC Nucleated RBC % PT INR Whole Blood INR 4.1 H Bld Gas Analysis Time Sample Site ABG pH ABG pCO2 ABG pO2 ABG HCO3 ABG Total CO2 ABG O2 Saturation ABG Base Excess Ruperto Test Respiration Rate O2 Delivery Device Vent Mode FiO2 Tidal Volume PEEP Pressure Support Vent Sodium Potassium Chloride Carbon Dioxide Anion Gap BUN Creatinine Estimated GFR (MDRD) Glucose Calcium Total Bilirubin AST ALT Alkaline Phosphatase Troponin I High Sens 66.6 H* Total Protein Albumin Globulin Albumin/Globulin Ratio Lipase Urine Color YELLOW Urine Clarity CLEAR Urine pH 6.0 Ur Specific [place] 1.025 Urine Protein NEGATIVE Urine Glucose (UA) NEGATIVE Urine Ketones NEGATIVE Urine Occult Blood NEGATIVE Urine Nitrite NEGATIVE Urine Bilirubin NEGATIVE Urine Urobilinogen 0.2 (NORMAL) Ur Leukocyte Esterase NEGATIVE Ur Microscopic Review NOT INDICATED Urine Culture Comments NOT INDICATED Urine Opiates Screen NEGATIVE Ur Oxycodone Screen NEGATIVE Urine Methadone Screen NEGATIVE Ur Propoxyphene Screen NEGATIVE Ur Barbiturates Screen NEGATIVE Ur Tricyclics Screen POSITIVE H Ur Phencyclidine Scrn NEGATIVE Ur Amphetamine Screen NEGATIVE U Methamphetamines Scrn POSITIVE H U Benzodiazepines Scrn NEGATIVE Urine Cocaine Screen POSITIVE H U Cannabinoids Screen NEGATIVE Ethyl Alcohol 01/11/20 12:54 WBC RBC Hgb Hct MCV MCH MCHC RDW Plt Count MPV Neut # (Auto) Lymph # (Auto) [place] # (Auto) Eos # (Auto) Baso # (Auto) Absolute Nucleated RBC Nucleated RBC % PT INR Whole Blood INR Bld Gas Analysis Time 1254 Sample Site LEFT RADIAL ABG pH 7.33 L ABG pCO2 57 H ABG pO2 132 H ABG HCO3 29.6 H ABG Total CO2 31.3 H ABG O2 Saturation 99 H ABG Base Excess 2.5 Ruperto Test POSITIVE Respiration Rate 16 O2 Delivery Device VENTILATOR Vent Mode SIMV FiO2 50.00 Tidal Volume 500 PEEP 5 Pressure Support Vent 10 Sodium Potassium Chloride Carbon Dioxide Anion Gap BUN Creatinine Estimated GFR (MDRD) Glucose Calcium Total Bilirubin AST ALT Alkaline Phosphatase Troponin I High Sens Total Protein Albumin Globulin Albumin/Globulin Ratio Lipase Urine Color Urine Clarity Urine pH Ur Specific [place] Urine Protein Urine Glucose (UA) Urine Ketones Urine Occult Blood Urine Nitrite Urine Bilirubin Urine Urobilinogen Ur Leukocyte Esterase Ur Microscopic Review Urine Culture Comments Urine Opiates Screen Ur Oxycodone Screen Urine Methadone Screen Ur Propoxyphene Screen Ur Barbiturates Screen Ur Tricyclics Screen Ur Phencyclidine Scrn Ur Amphetamine Screen U Methamphetamines Scrn U Benzodiazepines Scrn Urine Cocaine Screen U Cannabinoids Screen Ethyl Alcohol - Rads (name of study) Ct Head Radiology: EMP read contemporaneously (NAD) CTA Head Radiology: EMP read contemporaneously (3 mm mid right MCA aneurysm without acute disease) CTA of the neck Radiology: EMP read contemporaneously (No acute disease, multinodular thyroid goiter) 1v cxr post intubation Radiology: EMP read contemporaneously (Endotracheal tube is 4 cm above the sosa. OG tube extends beyond the inferior margin of the film. Reticular opacity within the lungs. Possible small effusions.) Procedures - Intubation Provider: Emergency physician Medications: Propofol (100mg), Succinylcholine (200mg), Fentanyl (100mcg) Blade: Glidescope Tube: Size-enter number (7.5), Cuffed, Marked at teeth-enter cm (23) Route: Oral Confirmation: Direct visualization, Bilateral breath sounds, No abdominal breath sound, End tidal CO2, Pulse ox, Chest xray Complications: No compications PD MEDICAL DECISION MAKING - ED course ED course: 79-year-old woman presents with acute obtundation and some strokelike symptoms. Head CT was without bleed and initial read of the CT angiography was without large vessel occlusion. Case was discussed by phone with her caregiver, Avelino Bello who is available at [phone], and her sister, Hortencia Massey who is in [place] but is her decision-maker. She is available at [phone]. The family did want at least a time trial of aggressive treatment and full CODE STATUS for now but may reconsider if after a couple of days she is not improving. Case was discussed by phone with Juliet Gil [facility] tele-stroke neurology who recommended strongly against TPA given her INR. Her urine drug screen was a bit surprising given her living circumstances, it may be causative but that portends a much better prognosis I think that an stroke. - Critical Care Time(min): 50 Time Includes: Direct patient care, Review records, Reassess patient, Document care, Coordinate care, Medical consult (Dr Russell for admit 1230pm), Family consult for tx dec (by phone) Data interpretation: Labs, Pulse ox Procedures included in critical care time: Peripheral IV Procedures excluded from critical care time: Intubation, EKG Departure - Departure Disposition: 66 [facility] DC/Xfer Clinical Impression: Stroke-like episode, Supratherapeutic international normalized ratio (INR) Altered mental status Qualifiers: Altered mental status type: coma Coma depth: Vinson coma 3-8 Coma timing: in the field (EMT or ambulance) Qualified Code(s): R40.2431 - Vinson coma scale score 3-8, in the field [EMT or ambulance] Respiratory failure Qualifiers: Chronicity: acute Respiratory failure complication: unspecified whether with hypoxia or hypercapnia Qualified Code(s): J96.00 - Acute respiratory failure, unspecified whether with hypoxia or hypercapnia Condition: Critical
--- NOTE | 2020-01-11 11:49 | CT Report ---
Reason: Stroke like symptoms Procedure Date: 01/11/2020 Accession Number: [id number] / [id number] Procedure: CT - Head W/O Stroke Protocol CPT Code: Final Report FULL RESULT: EXAM: CT HEAD EXAM DATE: 01/11/2020 11:32 AM. CLINICAL HISTORY: Stroke like symptoms. Acutely obtunded, quadriplegic, high NIH stroke scale. COMPARISON: CT head 05/19/2012. TECHNIQUE: Multiaxial CT images were obtained from the foramen magnum to the vertex. Reformats: Sagittal and coronal. IV contrast: None. In accordance with CT protocol optimization, one or more of the following dose reduction techniques were utilized for this exam: automated exposure control, adjustment of mA and/or KV based on patient size, or use of iterative reconstructive technique. FINDINGS: Parenchyma: No intraparenchymal hemorrhage. No evidence of mass, midline shift, or CT findings of acute infarction. Dc-white differentiation is distinct. Diffuse chronic microangiopathic white matter changes are evident. Extraaxial Spaces: Normal for age. No subdural or epidural collections identified. Ventricles: The ventricles and cortical sulci are enlarged, consistent with age-related tissue loss. Sinuses and orbits: Imaged paranasal sinuses, orbits, and mastoids show no significant abnormality. Bones: No evidence of fracture or calvarial defect. Other: None. IMPRESSION: 1. No intracranial hemorrhage. ASPECT score 10 out of 10. 2. Generalized age-related cortical atrophic changes without evidence of acute intracranial abnormality. RADIA The above critical test findings were discussed with Constantine Hwang by Dr. Félix Landin at 11:45 AM on 01/11/2020.
[2020-01-11] MEDS ORDERED: PROPOFOL 1000 MG/100 ML 100 ML IV STA (11:55)
[2020-01-11] MEDS ORDERED: fentaNYL 100 MCG/2 ML VIAL IVP STA (11:55)
[2020-01-11] MEDS ORDERED: PROPOFOL 200 MG/20 ML VIAL IVP STA (11:55)
[2020-01-11] MEDS ORDERED: SUCCINYLCHOLINE 200 MG/10 ML VIAL IVP STA (11:55)
[2020-01-11 11:56] LABS: BASOPHILS % (AUTO) 0.6 %; EOSINOPHILS # (AUTO) 0.1 10^3/uL (0.0-0.7); EOSINOPHILS % (AUTO) 2.4 %; HGB - HEMOGLOBIN 12.5 g/dL (12.0-16.0); LYMPHOCYTES % (AUTO) 28.8 %; MEAN CORPUSCULAR HEMOGLOBIN 31.4 pg (27.0-31.0); MEAN CORPUSCULAR HGB CONC 31.4 g/dL (32.0-36.0); MEAN PLATELET VOLUME 10.3 fL (7.9-10.8); MONOCYTES # (AUTO) 0.3 10^3/uL (0.0-1.0); MONOCYTES % (AUTO) 8.7 %; NEUTROPHILS % (AUTO) 59.2 %; PLT - PLATELET COUNT 136 10^3/uL (130-450); RED BLOOD COUNT 3.98 10^6/uL (4.20-5.40); WHITE BLOOD COUNT 3.3 x10^3/uL (4.8-10.8)
[2020-01-11 12:03] LABS: PT - PROTHROMBIN TIME 48.9 secs (9.9-12.6)
--- NOTE | 2020-01-11 12:06 | CT Report ---
Reason: altered, stroke sx Procedure Date: 01/11/2020 Accession Number: [id number] / [id number] Procedure: CT - ANGIO NECK W CPT Code: Final Report FULL RESULT: EXAM: CT ANGIOGRAM NECK EXAM DATE: 01/11/2020 11:34 AM. CLINICAL HISTORY: Altered, stroke sx. acutely obtunded, quadriplegic COMPARISON: CT head without contrast the same day. TECHNIQUE: Routine axial helical imaging was performed from the skull base through the aortic arch. Reconstructions: Routine multiplanar 3D MIP reconstructions. IV Contrast: 80 cc Optiray 320. Evaluation of arterial stenosis is based on a NASCET method of measurement. In accordance with CT protocol optimization, one or more of the following dose reduction techniques were utilized for this exam: automated exposure control, adjustment of mA and/or KV based on patient size, or use of iterative reconstructive technique. FINDINGS: Significant motion artifacts of the neck, likely from swallowing or breathing artifacts during acquisition. Most motion artifact centered around the larynx and upper chest. Right Carotid: The common carotid, internal carotid, and external carotid arteries are widely patent. No dissection, significant atherosclerotic plaque, or calcification identified. Left Carotid: The common carotid, internal carotid, and external carotid arteries are widely patent. No dissection, significant atherosclerotic plaque, or calcification identified. Vertebrals: The vertebrobasilar system shows no stenoses. 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 Multilevel degenerative changes of the cervical spine without significant canal narrowing. No suspicious lytic or sclerotic osseous lesion. There is a incidental bone island in right glenoid process of the right scapula. Visualized lungs are clear. IMPRESSION: 1. No significant cervical carotid or vertebral artery stenosis. 2. No evidence for dissection, accounting for motion artifacts centered at the larynx and upper chest. 3. Multinodular thyroid goiter, largest nodule projecting at the sternal notch, compatible with mediastinal goiter. [facility]
[2020-01-11 12:07] LABS: ALBUMIN 3.1 g/dL (3.2-5.5); ALBUMIN/GLOBULIN RATIO 1.1 (1.0-2.2); ALKALINE PHOSPHATASE 62 IU/L (42-121); ALT ALANINE AMINOTRANSFERASE 10 IU/L (10-60); AST ASPARTATE AMINOTRANSFERASE 16 IU/L (10-42); BILIRUBIN,TOTAL 0.2 mg/dL (0.2-1.0); BUN - BLOOD UREA NITROGEN 13 mg/dL (6-20); CALCIUM 8.1 mg/dL (8.5-10.3); CARBON DIOXIDE - CO2 26 mmol/L (21-32); CHLORIDE 105 mmol/L (101-111); CREATININE 0.8 mg/dL (0.4-1.0); GLUCOSE 151 mg/dL (70-100); LIPASE 43 U/L (22-51); SODIUM 138 mmol/L (135-145); TOTAL PROTEIN 5.9 g/dL (6.7-8.2)
[2020-01-11 12:13] LABS: INR 4.7 (0.8-1.2)
--- NOTE | 2020-01-11 12:13 | CT Report ---
Reason: altered, stroke sx Procedure Date: 01/11/2020 Accession Number: [id number] / [id number] Procedure: CT - ANGIO HEAD W/WO CPT Code: Final Report FULL RESULT: EXAM: CT ANGIOGRAM HEAD. CT SCAN OF THE HEAD WITH CONTRAST. EXAM DATE: 01/11/2020 11:34 AM CLINICAL HISTORY: Altered, stroke sx. acutely obtunded, quadriplegia COMPARISON: CT of the head without IV contrast, the same day. TECHNIQUE: - CT Scan Head: Using a multidetector scanner, axial images were acquired from the foramen magnum to the skull vertex following contrast administration. - CT Angiogram: Using a multidetector scanner, high-resolution axial images were acquired from the skull base through vertex following rapid infusion of intravenous contrast. Reformats: Multiplanar MIP reformats were reconstructed. NASCET criteria used for stenosis measurement. IV Contrast: OPTIRAY 320. In accordance with CT protocol optimization, one or more of the following dose reduction techniques were utilized for this exam: automated exposure control, adjustment of mA and/or KV based on patient size, or use of iterative reconstructive technique. FINDINGS: Post contrast CT Head: No abnormal enhancement. Dc white matter differentiation appear preserved. Dural venous sinus and deep cerebral veins appear normal. CTA HEAD: Anterior Circulation: 3.4 mm superiorly projecting aneurysm from the mid M1 segment right MCA with a 3 mm neck (coronal image 72 series 6). The internal carotid arteries (ICA), middle cerebral arteries (MCA), and anterior cerebral arteries ([place]) are patent bilaterally. The anterior communicating artery (A-COM) appears patent. No other aneurysms, stenoses, or anatomic anomalies evident. Posterior Circulation: The superior vertebral artery, basilar, and posterior cerebral arteries ([employer]ID[employer]ING [employer]) are patent. No aneurysms, stenoses, or anomalies evident. The posterior communicating arteries (P-COM) are patent bilaterally. IMPRESSION: CT Head: 1. No intracranial hemorrhage. ASPECT score 10 out of 10. 2. No evidence for hemorrhage, or midline shift, hydrocephalus mass lesion. No abnormal enhancement. CTA Head: 1. 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 2. No significant intracranial arterial stenosis. No evidence for large vessel occlusion. [facility] Preliminary findings were discussed with Constantine Hwang by Dr. Félix Susanto at 11:45 AM on 01/11/2020.
[2020-01-11] MEDS ORDERED: LORazepam 2 MG/ML VIAL IVP STA (12:32)
[2020-01-11 12:52] LABS: MUDS CUTOFF CONCENTRATIONS CUTOFF CONC BELOW:
[2020-01-11 12:58] LABS: BILIRUBIN,URINE NEGATIVE (NEGATIVE); GLUCOSE, URINE (UA) NEGATIVE (NEGATIVE); KETONES,URINE (UA) NEGATIVE (NEGATIVE); LEUKOCYTE ESTERASE, URINE NEGATIVE (NEGATIVE); NITRITE,URINE NEGATIVE (NEGATIVE); OCCULT BLOOD,URINE NEGATIVE (NEGATIVE); PROTEIN,URINE NEGATIVE (NEGATIVE); UROBILINOGEN,URINE 0.2 (NORMAL) E.U./dL (NORMAL)
[2020-01-11] MEDS ORDERED: DEXMEDETOMIDINE 400 MCG/100 ML 100 ML IV SCH (13:00)
--- NOTE | 2020-01-11 13:01 | XRAY Report ---
Reason: INTUBATION Procedure Date: 01/11/2020 Accession Number: [id number] / [id number] Procedure: XR - Chest for Line Placement CPT Code: Final Report FULL RESULT: EXAM: CHEST RADIOGRAPHY EXAM DATE: 01/11/2020 12:38 PM. CLINICAL HISTORY: INTUBATION. COMPARISON: XR CHEST PA AND LAT 05/19/2012 4:53 PM. TECHNIQUE: 1 view. FINDINGS: Lungs/Pleura: There is diffuse reticular opacity within the lungs. Costophrenic sulcus blunting may represent small effusions. No evidence of pneumothorax. Mediastinum: Within exam limitations, the cardiomediastinal contour is normal. Other: None. IMPRESSION: 1. Endotracheal tube tip is 4 cm above the sosa. Orogastric tube tip extends beyond the inferior margin of the film. 2. There is reticular opacity within the lungs. Differential considerations include edema, atelectasis, and/or interstitial lung disease. 3. Costophrenic sulcus blunting is suspicious for small effusions. 4. There is no evidence of pneumothorax. [facility]
[2020-01-11 13:02] LABS: CLARITY,URINE CLEAR (CLEAR)
[2020-01-11 13:11] LABS: ABG HCO3 29.6 mmol/L (22.0-26.0); ABG PCO2 57 mmHg (34-45); ABG PH 7.33 (7.35-7.45); ABG PO2 132 mmHg (80-100)
[2020-01-11 13:12] LABS: ABG BASE EXCESS 2.5 mmol/L (-2.0-3.0); ABG OXYGEN SATURATION 99 % (94-98); ABG TCO2 31.3 MMOL/L (21.0-29.0); ALLEN TEST POSITIVE
[2020-01-11 13:16] LABS: COCAINE SCREEN URINE POSITIVE (NEGATIVE); METHAMPHETAMINES SCREEN, URINE POSITIVE (NEGATIVE); TRICYCLIC ANTIDEPRESSANT,URINE POSITIVE (NEGATIVE)
[2020-01-11 13:17] LABS: AMPHETAMINE SCREEN,URINE NEGATIVE (NEGATIVE); BENZODIAZEPINES SCREEN, URINE NEGATIVE (NEGATIVE); METHADONE SCREEN, URINE NEGATIVE (NEGATIVE); OPIATE SCREEN, URINE NEGATIVE (NEGATIVE); OXYCODONE SCREEN, URINE NEGATIVE (NEGATIVE); PROPOXYPHENE SCREEN, URINE NEGATIVE (NEGATIVE)
[2020-01-11] MEDS ORDERED: ONDANSETRON 4 MG/2 ML VIAL IVP PRN (13:39)
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
[2020-01-11] MEDS: DEXTROSE 5%-0.45% NACL 1,000 ML IV SCH (15:16)
[2020-01-11] MEDS: MIDAZOLAM DRIP 50 MG/100 ML BAG IV SCH ×2 (15:53→23:29)
[2020-01-11] MEDS ORDERED: IOVERSOL 320 100 ML VIAL IVP ONE (16:00)
[2020-01-11 17:01] LABS: MAGNESIUM 2.3 mg/dL (1.7-2.8); PHOSPHORUS 2.4 mg/dL (2.5-4.6)
--- NOTE | 2020-01-11 17:10 | PHARMACY PROGRESS NOTE ---
- Best Possible Medication History Admit Date and Time: 01/11/20 1339 Processed by: Pharmacy Medication History completed: Yes Patient Interview: Pt unable to participate Secondary Source(s): Physician records, Pharmacy records As the person ultimately responsible for medication therapy, providers are able to order a medication from an existing home medication list in [facility] via the "Reconcile Routine" prior to Confirmation of that medication by instructional support technician. Such practice is discouraged except when the physician, in their clinical judgment, deems that a medical need exists for a medication without regard to previous use.
[2020-01-11] MEDS: SODIUM CHLORIDE FLUSH 0.9% 10 ML SYRINGE IVP SCH ×2 (18:03→23:32)
[2020-01-11] MEDS ORDERED: POTASSIUM PHOSPHATE 15 MMOL in SODIUM CHLORIDE 0.9% 250 ML IV ONE (18:30)
[2020-01-11 20:09] LABS: ABG PH 7.54 (7.35-7.45)
[2020-01-11 20:10] LABS: ABG BASE EXCESS 3.2 mmol/L (-2.0-3.0); ABG OXYGEN SATURATION 99 % (94-98); ABG PCO2 30 mmHg (34-45); ABG PO2 137 mmHg (80-100); ABG TCO2 25.9 MMOL/L (21.0-29.0); ALLEN TEST POSITIVE
[2020-01-11] MEDS: CHLORHEXIDINE GLUCONATE 15 ML UDC PO SCH (21:40)
[2020-01-11 23:48] LABS: ABG HCO3 22.8 mmol/L (22.0-26.0); ABG PCO2 32 mmHg (34-45); ABG PH 7.47 (7.35-7.45); ABG PO2 117 mmHg (80-100); ABG TCO2 23.7 MMOL/L (21.0-29.0)
[2020-01-11 23:49] LABS: ABG BASE EXCESS -0.2 mmol/L (-2.0-3.0); ABG OXYGEN SATURATION 98 % (94-98); ALLEN TEST POSITIVE
[2020-01-12] MEDS: SODIUM CHLORIDE FLUSH 0.9% 10 ML SYRINGE IVP PRN (00:45)
[2020-01-12] MEDS: DEXTROSE 5%-0.45% NACL 1,000 ML IV SCH ×3 (00:45→21:17)
[2020-01-12 05:22] LABS: BASOPHILS % (AUTO) 0.4 %; EOSINOPHILS # (AUTO) 0.1 10^3/uL (0.0-0.7); EOSINOPHILS % (AUTO) 2.3 %; HGB - HEMOGLOBIN 12.2 g/dL (12.0-16.0); LYMPHOCYTES # (AUTO) 1.5 10^3/uL (1.5-3.5); LYMPHOCYTES % (AUTO) 27.6 %; MEAN CORPUSCULAR HEMOGLOBIN 31.3 pg (27.0-31.0); MEAN CORPUSCULAR HGB CONC 31.9 g/dL (32.0-36.0); MEAN CORPUSCULAR VOLUME 98.2 fL (81.0-99.0); MEAN PLATELET VOLUME 10.8 fL (7.9-10.8); MONOCYTES # (AUTO) 0.4 10^3/uL (0.0-1.0); MONOCYTES % (AUTO) 8.3 %; NEUTROPHILS # (AUTO) 3.3 10^3/uL (1.5-6.6); PLT - PLATELET COUNT 127 10^3/uL (130-450); RED CELL DISTRIBUTION WIDTH 14.3 % (12.0-15.0); WHITE BLOOD COUNT 5.3 x10^3/uL (4.8-10.8)
[2020-01-12] MEDS ORDERED: MIDAZOLAM 50 MG/10 ML VIAL ONE (05:42)
[2020-01-12] MEDS: MIDAZOLAM DRIP 50 MG/100 ML BAG IV SCH (05:47)
[2020-01-12 05:57] LABS: CREATININE 0.6 mg/dL (0.4-1.0)
[2020-01-12] MEDS: POTASSIUM CHLOR 10 MEQ/100 ML 10 MEQ/100 ML BAG IV SCH ×4 (06:46→10:05)
[2020-01-12 08:09] LABS: MUDS CUTOFF CONCENTRATIONS CUTOFF CONC BELOW:
[2020-01-12 08:21] LABS: AMPHETAMINE SCREEN,URINE NEGATIVE (NEGATIVE); BENZODIAZEPINES SCREEN, URINE POSITIVE (NEGATIVE); COCAINE SCREEN URINE NEGATIVE (NEGATIVE); METHADONE SCREEN, URINE NEGATIVE (NEGATIVE); METHAMPHETAMINES SCREEN, URINE NEGATIVE (NEGATIVE); OPIATE SCREEN, URINE NEGATIVE (NEGATIVE); OXYCODONE SCREEN, URINE NEGATIVE (NEGATIVE); PROPOXYPHENE SCREEN, URINE NEGATIVE (NEGATIVE); TRICYCLIC ANTIDEPRESSANT,URINE POSITIVE (NEGATIVE)
[2020-01-12] MEDS ORDERED: FAMOTIDINE 20 MG/2 ML VIAL IVP SCH (09:00)
[2020-01-12] MEDS: SODIUM CHLORIDE FLUSH 0.9% 10 ML SYRINGE IVP SCH ×2 (09:10→17:05)
[2020-01-12] MEDS: CHLORHEXIDINE GLUCONATE 15 ML UDC PO SCH ×2 (09:15→21:36)
--- NOTE | 2020-01-12 09:56 | PROVIDER PROGRESS NOTE ---
Subjective - Prog Note Date Prog Note Date: 01/12/20 Prog Note Time: 09:54 - Subjective Pt reports feeling: Improved (79 yo F with past medical history with developmental delay, schizophrenia who lives in a snf admitted for new encephalopathy and acute respiratory failure requiring intubation found to have meth and cocaine in UDS. Patient easily arousable, follows simple commands.) Objective - Vital Signs/Intake & Output Reviewed Vital Signs: Yes Vital Signs: Vital Signs x48h Temp Pulse Pulse Resp BP Pulse Ox 01/12/20 09:00 36.4 C L 59 L 12 109/48 L 100 01/12/20 08:00 59 L 13 113/49 L 100 01/12/20 07:48 59 L 01/12/20 07:00 36.5 C 54 L 20 115/50 L 100 01/12/20 06:00 56 L 20 119/54 L 98 01/12/20 05:23 23 L 01/12/20 05:00 36.5 C 58 L 20 125/80 100 01/12/20 04:00 50 L 20 106/53 L 100 01/12/20 03:35 53 L 01/12/20 03:00 55 L 20 95/49 L 100 01/12/20 02:00 50 L 20 102/50 L 100 Intake & Output: Intake & Output 01/09/20 01/10/20 01/11/20 01/12/20 23:59 23:59 23:59 23:59 Intake Total 2830.818 3031.575 Output Total 875 607 Balance 291.390 956.575 - Objective General Appearance: positive: No acute distress Eyes Bilateral: positive: No lid inflammation, Conjunctivae nml, No scleral icterus, Other (Right lazy eye.) Respiratory: positive: No respiratory distress, Other (Mechanical ventilator sounds.) Cardiovascular: positive: Regular rate & rhythm, No murmur Neurologic/Psychiatric: negative: Facial droop - Lab Results Fish Bones: 01/12/20 05:10 01/12/20 05:10 Other Labs: Lab Results x24hrs 01/12/20 01/12/20 01/12/20 Range/Units 08:00 05:10 05:10 WBC (4.8-10.8) x10^3/uL RBC (4.20-5.40) 10^6/uL Hgb (12.0-16.0) g/dL Hct (37.0-47.0) % MCV (81.0-99.0) fL MCH (27.0-31.0) pg MCHC (32.0-36.0) g/dL RDW (12.0-15.0) % Plt Count (130-450) 10^3/uL MPV (7.9-10.8) fL Neut # (Auto) (1.5-6.6) 10^3/uL Lymph # (Auto) (1.5-3.5) 10^3/uL [place] # (Auto) (0.0-1.0) 10^3/uL Eos # (Auto) (0.0-0.7) 10^3/uL Baso # (Auto) (0.0-0.1) 10^3/uL Absolute Nucleated RBC x10^3/uL Nucleated RBC % /100WBC PT (9.9-12.6) secs INR (0.8-1.2) Whole Blood INR 3.7 H (0.8-1.2) Bld Gas Analysis Time Sample Site ABG pH (7.35-7.45) ABG pCO2 (34-45) mmHg ABG pO2 (80-100) mmHg ABG HCO3 (22.0-26.0) mmol/L ABG Total CO2 (21.0-29.0) MMOL/L ABG O2 Saturation (94-98) % ABG Base Excess (-2.0-3.0) mmol/L Ruperto Test Respiration Rate b/min O2 Delivery Device Vent Mode FiO2 Tidal Volume mL PEEP cmH2O Pressure Support Vent cmH2O Sodium (135-145) mmol/L Potassium (3.5-5.0) mmol/L Chloride (101-111) mmol/L Carbon Dioxide (21-32) mmol/L Anion Gap (6-13) BUN (6-20) mg/dL Creatinine (0.4-1.0) mg/dL Estimated GFR (MDRD) (>89) Glucose (70-100) mg/dL Calcium (8.5-10.3) mg/dL Phosphorus 3.8 (2.5-4.6) mg/dL Magnesium 2.3 (1.7-2.8) mg/dL Total Bilirubin (0.2-1.0) mg/dL AST (10-42) IU/L ALT (10-60) IU/L Alkaline Phosphatase (42-121) IU/L Troponin I High Sens (2.3-14.8) ng/L Total Protein (6.7-8.2) g/dL Albumin (3.2-5.5) g/dL Globulin (2.1-4.2) g/dL Albumin/Globulin Ratio (1.0-2.2) Lipase (22-51) U/L Urine Color Urine Clarity (CLEAR) Urine pH (5.0-7.5) PH Ur Specific [place] (1.002-1.030) Urine Protein (NEGATIVE) mg/dL Urine Glucose (UA) (NEGATIVE) mg/dL Urine Ketones (NEGATIVE) mg/dL Urine Occult Blood (NEGATIVE) Urine Nitrite (NEGATIVE) Urine Bilirubin (NEGATIVE) Urine Urobilinogen (NORMAL) E.U./dL Ur Leukocyte Esterase (NEGATIVE) Ur Microscopic Review Urine Culture Comments Nasal Screen MRSA (PCR) (NEGATIVE) Urine Opiates Screen NEGATIVE (NEGATIVE) Ur Oxycodone Screen NEGATIVE (NEGATIVE) Urine Methadone Screen NEGATIVE (NEGATIVE) Ur Propoxyphene Screen NEGATIVE (NEGATIVE) Ur Barbiturates Screen NEGATIVE (NEGATIVE) Ur Tricyclics Screen POSITIVE H (NEGATIVE) Ur Phencyclidine Scrn NEGATIVE (NEGATIVE) Ur Amphetamine Screen NEGATIVE (NEGATIVE) U Methamphetamines Scrn NEGATIVE (NEGATIVE) U Benzodiazepines Scrn POSITIVE H (NEGATIVE) Urine Cocaine Screen NEGATIVE (NEGATIVE) U Cannabinoids Screen NEGATIVE (NEGATIVE) Ethyl Alcohol mg/dL Coronavirus (PCR) 01/12/20 01/12/20 01/11/20 Range/Units 05:10 05:10 23:39 WBC 5.3 (4.8-10.8) x10^3/uL RBC 3.90 L (4.20-5.40) 10^6/uL Hgb 12.2 (12.0-16.0) g/dL Hct 38.3 (37.0-47.0) % MCV 98.2 (81.0-99.0) fL MCH 31.3 H (27.0-31.0) pg MCHC 31.9 L (32.0-36.0) g/dL RDW 14.3 (12.0-15.0) % Plt Count 127 L (130-450) 10^3/uL MPV 10.8 (7.9-10.8) fL Neut # (Auto) 3.3 (1.5-6.6) 10^3/uL Lymph # (Auto) 1.5 (1.5-3.5) 10^3/uL [place] # (Auto) 0.4 (0.0-1.0) 10^3/uL Eos # (Auto) 0.1 (0.0-0.7) 10^3/uL Baso # (Auto) 0.0 (0.0-0.1) 10^3/uL Absolute Nucleated RBC 0.00 x10^3/uL Nucleated RBC % 0.0 /100WBC PT (9.9-12.6) secs INR (0.8-1.2) Whole Blood INR (0.8-1.2) Bld Gas Analysis Time 2347 Sample Site RIGHT BRACHIAL ABG pH 7.47 H (7.35-7.45) ABG pCO2 32 L (34-45) mmHg ABG pO2 117 H (80-100) mmHg ABG HCO3 22.8 (22.0-26.0) mmol/L ABG Total CO2 23.7 (21.0-29.0) MMOL/L ABG O2 Saturation 98 (94-98) % ABG Base Excess -0.2 (-2.0-3.0) mmol/L Ruperto Test POSITIVE Respiration Rate 20 b/min O2 Delivery Device VENTILATOR Vent Mode SIMV FiO2 35.00 Tidal Volume 450 mL PEEP 5 cmH2O Pressure Support Vent 10 cmH2O Sodium 139 (135-145) mmol/L Potassium 3.3 L (3.5-5.0) mmol/L Chloride 109 (101-111) mmol/L Carbon Dioxide 25 (21-32) mmol/L Anion Gap 5.0 L (6-13) BUN 11 (6-20) mg/dL Creatinine 0.6 (0.4-1.0) mg/dL Estimated GFR (MDRD) 97 (>89) Glucose 113 H (70-100) mg/dL Calcium 8.0 L (8.5-10.3) mg/dL Phosphorus (2.5-4.6) mg/dL Magnesium (1.7-2.8) mg/dL Total Bilirubin (0.2-1.0) mg/dL AST (10-42) IU/L ALT (10-60) IU/L Alkaline Phosphatase (42-121) IU/L Troponin I High Sens (2.3-14.8) ng/L Total Protein (6.7-8.2) g/dL Albumin (3.2-5.5) g/dL Globulin (2.1-4.2) g/dL Albumin/Globulin Ratio (1.0-2.2) Lipase (22-51) U/L Urine Color Urine Clarity (CLEAR) Urine pH (5.0-7.5) PH Ur Specific [place] (1.002-1.030) Urine Protein (NEGATIVE) mg/dL Urine Glucose (UA) (NEGATIVE) mg/dL Urine Ketones (NEGATIVE) mg/dL Urine Occult Blood (NEGATIVE) Urine Nitrite (NEGATIVE) Urine Bilirubin (NEGATIVE) Urine Urobilinogen (NORMAL) E.U./dL Ur Leukocyte Esterase (NEGATIVE) Ur Microscopic Review Urine Culture Comments Nasal Screen MRSA (PCR) (NEGATIVE) Urine Opiates Screen (NEGATIVE) Ur Oxycodone Screen (NEGATIVE) Urine Methadone Screen (NEGATIVE) Ur Propoxyphene Screen (NEGATIVE) Ur Barbiturates Screen (NEGATIVE) Ur Tricyclics Screen (NEGATIVE) Ur Phencyclidine Scrn (NEGATIVE) Ur Amphetamine Screen (NEGATIVE) U Methamphetamines Scrn (NEGATIVE) U Benzodiazepines Scrn (NEGATIVE) Urine Cocaine Screen (NEGATIVE) U Cannabinoids Screen (NEGATIVE) Ethyl Alcohol mg/dL Coronavirus (PCR) 01/11/20 01/11/20 01/11/20 Range/Units 19:58 19:00 16:42 WBC (4.8-10.8) x10^3/uL RBC (4.20-5.40) 10^6/uL Hgb (12.0-16.0) g/dL Hct (37.0-47.0) % MCV (81.0-99.0) fL MCH (27.0-31.0) pg MCHC (32.0-36.0) g/dL RDW (12.0-15.0) % Plt Count (130-450) 10^3/uL MPV (7.9-10.8) fL Neut # (Auto) (1.5-6.6) 10^3/uL Lymph # (Auto) (1.5-3.5) 10^3/uL [place] # (Auto) (0.0-1.0) 10^3/uL Eos # (Auto) (0.0-0.7) 10^3/uL Baso # (Auto) (0.0-0.1) 10^3/uL Absolute Nucleated RBC x10^3/uL Nucleated RBC % /100WBC PT (9.9-12.6) secs INR (0.8-1.2) Whole Blood INR (0.8-1.2) Bld Gas Analysis Time 1957 Sample Site RIGHT BRACHIAL ABG pH 7.54 H (7.35-7.45) ABG pCO2 30 L (34-45) mmHg ABG pO2 137 H (80-100) mmHg ABG HCO3 25.0 (22.0-26.0) mmol/L ABG Total CO2 25.9 (21.0-29.0) MMOL/L ABG O2 Saturation 99 H (94-98) % ABG Base Excess 3.2 H (-2.0-3.0) mmol/L Ruperto Test POSITIVE Respiration Rate 16 b/min O2 Delivery Device VENTILATOR Vent Mode SIMV FiO2 40.00 Tidal Volume 600 mL PEEP 5 cmH2O Pressure Support Vent 10 cmH2O Sodium (135-145) mmol/L Potassium (3.5-5.0) mmol/L Chloride (101-111) mmol/L Carbon Dioxide (21-32) mmol/L Anion Gap (6-13) BUN (6-20) mg/dL Creatinine (0.4-1.0) mg/dL Estimated GFR (MDRD) (>89) Glucose (70-100) mg/dL Calcium (8.5-10.3) mg/dL Phosphorus (2.5-4.6) mg/dL Magnesium (1.7-2.8) mg/dL Total Bilirubin (0.2-1.0) mg/dL AST (10-42) IU/L ALT (10-60) IU/L Alkaline Phosphatase (42-121) IU/L Troponin I High Sens 76.4 H* (2.3-14.8) ng/L Total Protein (6.7-8.2) g/dL Albumin (3.2-5.5) g/dL Globulin (2.1-4.2) g/dL Albumin/Globulin Ratio (1.0-2.2) Lipase (22-51) U/L Urine Color Urine Clarity (CLEAR) Urine pH (5.0-7.5) PH Ur Specific [place] (1.002-1.030) Urine Protein (NEGATIVE) mg/dL Urine Glucose (UA) (NEGATIVE) mg/dL Urine Ketones (NEGATIVE) mg/dL Urine Occult Blood (NEGATIVE) Urine Nitrite (NEGATIVE) Urine Bilirubin (NEGATIVE) Urine Urobilinogen (NORMAL) E.U./dL Ur Leukocyte Esterase (NEGATIVE) Ur Microscopic Review Urine Culture Comments Nasal Screen MRSA (PCR) (NEGATIVE) Urine Opiates Screen (NEGATIVE) Ur Oxycodone Screen (NEGATIVE) Urine Methadone Screen (NEGATIVE) Ur Propoxyphene Screen (NEGATIVE) Ur Barbiturates Screen (NEGATIVE) Ur Tricyclics Screen (NEGATIVE) Ur Phencyclidine Scrn (NEGATIVE) Ur Amphetamine Screen (NEGATIVE) U Methamphetamines Scrn (NEGATIVE) U Benzodiazepines Scrn (NEGATIVE) Urine Cocaine Screen (NEGATIVE) U Cannabinoids Screen (NEGATIVE) Ethyl Alcohol mg/dL Coronavirus (PCR) NEGATIVE 01/11/20 01/11/20 01/11/20 Range/Units 16:24 16:24 14:50 WBC (4.8-10.8) x10^3/uL RBC (4.20-5.40) 10^6/uL Hgb (12.0-16.0) g/dL Hct (37.0-47.0) % MCV (81.0-99.0) fL MCH (27.0-31.0) pg MCHC (32.0-36.0) g/dL RDW (12.0-15.0) % Plt Count (130-450) 10^3/uL MPV (7.9-10.8) fL Neut # (Auto) (1.5-6.6) 10^3/uL Lymph # (Auto) (1.5-3.5) 10^3/uL [place] # (Auto) (0.0-1.0) 10^3/uL Eos # (Auto) (0.0-0.7) 10^3/uL Baso # (Auto) (0.0-0.1) 10^3/uL Absolute Nucleated RBC x10^3/uL Nucleated RBC % /100WBC PT (9.9-12.6) secs INR (0.8-1.2) Whole Blood INR (0.8-1.2) Bld Gas Analysis Time Sample Site ABG pH (7.35-7.45) ABG pCO2 (34-45) mmHg ABG pO2 (80-100) mmHg ABG HCO3 (22.0-26.0) mmol/L ABG Total CO2 (21.0-29.0) MMOL/L ABG O2 Saturation (94-98) % ABG Base Excess (-2.0-3.0) mmol/L Ruperto Test Respiration Rate b/min O2 Delivery Device Vent Mode FiO2 Tidal Volume mL PEEP cmH2O Pressure Support Vent cmH2O Sodium (135-145) mmol/L Potassium (3.5-5.0) mmol/L Chloride (101-111) mmol/L Carbon Dioxide (21-32) mmol/L Anion Gap (6-13) BUN (6-20) mg/dL Creatinine (0.4-1.0) mg/dL Estimated GFR (MDRD) (>89) Glucose (70-100) mg/dL Calcium (8.5-10.3) mg/dL Phosphorus 2.4 L (2.5-4.6) mg/dL Magnesium 2.3 (1.7-2.8) mg/dL Total Bilirubin (0.2-1.0) mg/dL AST (10-42) IU/L ALT (10-60) IU/L Alkaline Phosphatase (42-121) IU/L Troponin I High Sens 73.8 H* (2.3-14.8) ng/L Total Protein (6.7-8.2) g/dL Albumin (3.2-5.5) g/dL Globulin (2.1-4.2) g/dL Albumin/Globulin Ratio (1.0-2.2) Lipase (22-51) U/L Urine Color Urine Clarity (CLEAR) Urine pH (5.0-7.5) PH Ur Specific [place] (1.002-1.030) Urine Protein (NEGATIVE) mg/dL Urine Glucose (UA) (NEGATIVE) mg/dL Urine Ketones (NEGATIVE) mg/dL Urine Occult Blood (NEGATIVE) Urine Nitrite (NEGATIVE) Urine Bilirubin (NEGATIVE) Urine Urobilinogen (NORMAL) E.U./dL Ur Leukocyte Esterase (NEGATIVE) Ur Microscopic Review Urine Culture Comments Nasal Screen MRSA (PCR) NEGATIVE (NEGATIVE) Urine Opiates Screen (NEGATIVE) Ur Oxycodone Screen (NEGATIVE) Urine Methadone Screen (NEGATIVE) Ur Propoxyphene Screen (NEGATIVE) Ur Barbiturates Screen (NEGATIVE) Ur Tricyclics Screen (NEGATIVE) Ur Phencyclidine Scrn (NEGATIVE) Ur Amphetamine Screen (NEGATIVE) U Methamphetamines Scrn (NEGATIVE) U Benzodiazepines Scrn (NEGATIVE) Urine Cocaine Screen (NEGATIVE) U Cannabinoids Screen (NEGATIVE) Ethyl Alcohol mg/dL Coronavirus (PCR) 01/11/20 01/11/20 01/11/20 Range/Units 12:54 12:47 12:32 WBC (4.8-10.8) x10^3/uL RBC (4.20-5.40) 10^6/uL Hgb (12.0-16.0) g/dL Hct (37.0-47.0) % MCV (81.0-99.0) fL MCH (27.0-31.0) pg MCHC (32.0-36.0) g/dL RDW (12.0-15.0) % Plt Count (130-450) 10^3/uL MPV (7.9-10.8) fL Neut # (Auto) (1.5-6.6) 10^3/uL Lymph # (Auto) (1.5-3.5) 10^3/uL [place] # (Auto) (0.0-1.0) 10^3/uL Eos # (Auto) (0.0-0.7) 10^3/uL Baso # (Auto) (0.0-0.1) 10^3/uL Absolute Nucleated RBC x10^3/uL Nucleated RBC % /100WBC PT (9.9-12.6) secs INR (0.8-1.2) Whole Blood INR (0.8-1.2) Bld Gas Analysis Time 1254 Sample Site LEFT RADIAL ABG pH 7.33 L (7.35-7.45) ABG pCO2 57 H (34-45) mmHg ABG pO2 132 H (80-100) mmHg ABG HCO3 29.6 H (22.0-26.0) mmol/L ABG Total CO2 31.3 H (21.0-29.0) MMOL/L ABG O2 Saturation 99 H (94-98) % ABG Base Excess 2.5 (-2.0-3.0) mmol/L Ruperto Test POSITIVE Respiration Rate 16 b/min O2 Delivery Device VENTILATOR Vent Mode SIMV FiO2 50.00 Tidal Volume 500 mL PEEP 5 cmH2O Pressure Support Vent 10 cmH2O Sodium (135-145) mmol/L Potassium (3.5-5.0) mmol/L Chloride (101-111) mmol/L Carbon Dioxide (21-32) mmol/L Anion Gap (6-13) BUN (6-20) mg/dL Creatinine (0.4-1.0) mg/dL Estimated GFR (MDRD) (>89) Glucose (70-100) mg/dL Calcium (8.5-10.3) mg/dL Phosphorus (2.5-4.6) mg/dL Magnesium (1.7-2.8) mg/dL Total Bilirubin (0.2-1.0) mg/dL AST (10-42) IU/L ALT (10-60) IU/L Alkaline Phosphatase (42-121) IU/L Troponin I High Sens 66.6 H* (2.3-14.8) ng/L Total Protein (6.7-8.2) g/dL Albumin (3.2-5.5) g/dL Globulin (2.1-4.2) g/dL Albumin/Globulin Ratio (1.0-2.2) Lipase (22-51) U/L Urine Color YELLOW Urine Clarity CLEAR (CLEAR) Urine pH 6.0 (5.0-7.5) PH Ur Specific [place] 1.025 (1.002-1.030) Urine Protein NEGATIVE (NEGATIVE) mg/dL Urine Glucose (UA) NEGATIVE (NEGATIVE) mg/dL Urine Ketones NEGATIVE (NEGATIVE) mg/dL Urine Occult Blood NEGATIVE (NEGATIVE) Urine Nitrite NEGATIVE (NEGATIVE) Urine Bilirubin NEGATIVE (NEGATIVE) Urine Urobilinogen 0.2 (NORMAL) (NORMAL) E.U./dL Ur Leukocyte Esterase NEGATIVE (NEGATIVE) Ur Microscopic Review NOT INDICATED Urine Culture Comments NOT INDICATED Nasal Screen MRSA (PCR) (NEGATIVE) Urine Opiates Screen NEGATIVE (NEGATIVE) Ur Oxycodone Screen NEGATIVE (NEGATIVE) Urine Methadone Screen NEGATIVE (NEGATIVE) Ur Propoxyphene Screen NEGATIVE (NEGATIVE) Ur Barbiturates Screen NEGATIVE (NEGATIVE) Ur Tricyclics Screen POSITIVE H (NEGATIVE) Ur Phencyclidine Scrn NEGATIVE (NEGATIVE) Ur Amphetamine Screen NEGATIVE (NEGATIVE) U Methamphetamines Scrn POSITIVE H (NEGATIVE) U Benzodiazepines Scrn NEGATIVE (NEGATIVE) Urine Cocaine Screen POSITIVE H (NEGATIVE) U Cannabinoids Screen NEGATIVE (NEGATIVE) Ethyl Alcohol mg/dL Coronavirus (PCR) 01/11/20 01/11/20 01/11/20 Range/Units 11:42 11:37 11:37 WBC (4.8-10.8) x10^3/uL RBC (4.20-5.40) 10^6/uL Hgb (12.0-16.0) g/dL Hct (37.0-47.0) % MCV (81.0-99.0) fL MCH (27.0-31.0) pg MCHC (32.0-36.0) g/dL RDW (12.0-15.0) % Plt Count (130-450) 10^3/uL MPV (7.9-10.8) fL Neut # (Auto) (1.5-6.6) 10^3/uL Lymph # (Auto) (1.5-3.5) 10^3/uL [place] # (Auto) (0.0-1.0) 10^3/uL Eos # (Auto) (0.0-0.7) 10^3/uL Baso # (Auto) (0.0-0.1) 10^3/uL Absolute Nucleated RBC x10^3/uL Nucleated RBC % /100WBC PT 48.9 H (9.9-12.6) secs INR 4.7 H* (0.8-1.2) Whole Blood INR 4.1 H (0.8-1.2) Bld Gas Analysis Time Sample Site ABG pH (7.35-7.45) ABG pCO2 (34-45) mmHg ABG pO2 (80-100) mmHg ABG HCO3 (22.0-26.0) mmol/L ABG Total CO2 (21.0-29.0) MMOL/L ABG O2 Saturation (94-98) % ABG Base Excess (-2.0-3.0) mmol/L Ruperto Test Respiration Rate b/min O2 Delivery Device Vent Mode FiO2 Tidal Volume mL PEEP cmH2O Pressure Support Vent cmH2O Sodium 138 (135-145) mmol/L Potassium 3.8 (3.5-5.0) mmol/L Chloride 105 (101-111) mmol/L Carbon Dioxide 26 (21-32) mmol/L Anion Gap 7.0 (6-13) BUN 13 (6-20) mg/dL Creatinine 0.8 (0.4-1.0) mg/dL Estimated GFR (MDRD) 70 L (>89) Glucose 151 H (70-100) mg/dL Calcium 8.1 L (8.5-10.3) mg/dL Phosphorus (2.5-4.6) mg/dL Magnesium (1.7-2.8) mg/dL Total Bilirubin 0.2 (0.2-1.0) mg/dL AST 16 (10-42) IU/L ALT 10 (10-60) IU/L Alkaline Phosphatase 62 (42-121) IU/L Troponin I High Sens (2.3-14.8) ng/L Total Protein 5.9 L (6.7-8.2) g/dL Albumin 3.1 L (3.2-5.5) g/dL Globulin 2.8 (2.1-4.2) g/dL Albumin/Globulin Ratio 1.1 (1.0-2.2) Lipase 43 (22-51) U/L Urine Color Urine Clarity (CLEAR) Urine pH (5.0-7.5) PH Ur Specific [place] (1.002-1.030) Urine Protein (NEGATIVE) mg/dL Urine Glucose (UA) (NEGATIVE) mg/dL Urine Ketones (NEGATIVE) mg/dL Urine Occult Blood (NEGATIVE) Urine Nitrite (NEGATIVE) Urine Bilirubin (NEGATIVE) Urine Urobilinogen (NORMAL) E.U./dL Ur Leukocyte Esterase (NEGATIVE) Ur Microscopic Review Urine Culture Comments Nasal Screen MRSA (PCR) (NEGATIVE) Urine Opiates Screen (NEGATIVE) Ur Oxycodone Screen (NEGATIVE) Urine Methadone Screen (NEGATIVE) Ur Propoxyphene Screen (NEGATIVE) Ur Barbiturates Screen (NEGATIVE) Ur Tricyclics Screen (NEGATIVE) Ur Phencyclidine Scrn (NEGATIVE) Ur Amphetamine Screen (NEGATIVE) U Methamphetamines Scrn (NEGATIVE) U Benzodiazepines Scrn (NEGATIVE) Urine Cocaine Screen (NEGATIVE) U Cannabinoids Screen (NEGATIVE) Ethyl Alcohol < 5.0 mg/dL Coronavirus (PCR) 01/11/20 Range/Units 11:37 WBC 3.3 L (4.8-10.8) x10^3/uL RBC 3.98 L (4.20-5.40) 10^6/uL Hgb 12.5 (12.0-16.0) g/dL Hct 39.8 (37.0-47.0) % MCV 100.0 H (81.0-99.0) fL MCH 31.4 H (27.0-31.0) pg MCHC 31.4 L (32.0-36.0) g/dL RDW 14.0 (12.0-15.0) % Plt Count 136 (130-450) 10^3/uL MPV 10.3 (7.9-10.8) fL Neut # (Auto) 2.0 (1.5-6.6) 10^3/uL Lymph # (Auto) 1.0 L (1.5-3.5) 10^3/uL [place] # (Auto) 0.3 (0.0-1.0) 10^3/uL Eos # (Auto) 0.1 (0.0-0.7) 10^3/uL Baso # (Auto) 0.0 (0.0-0.1) 10^3/uL Absolute Nucleated RBC 0.00 x10^3/uL Nucleated RBC % 0.0 /100WBC PT (9.9-12.6) secs INR (0.8-1.2) Whole Blood INR (0.8-1.2) Bld Gas Analysis Time Sample Site ABG pH (7.35-7.45) ABG pCO2 (34-45) mmHg ABG pO2 (80-100) mmHg ABG HCO3 (22.0-26.0) mmol/L ABG Total CO2 (21.0-29.0) MMOL/L ABG O2 Saturation (94-98) % ABG Base Excess (-2.0-3.0) mmol/L Ruperto Test Respiration Rate b/min O2 Delivery Device Vent Mode FiO2 Tidal Volume mL PEEP cmH2O Pressure Support Vent cmH2O Sodium (135-145) mmol/L Potassium (3.5-5.0) mmol/L Chloride (101-111) mmol/L Carbon Dioxide (21-32) mmol/L Anion Gap (6-13) BUN (6-20) mg/dL Creatinine (0.4-1.0) mg/dL Estimated GFR (MDRD) (>89) Glucose (70-100) mg/dL Calcium (8.5-10.3) mg/dL Phosphorus (2.5-4.6) mg/dL Magnesium (1.7-2.8) mg/dL Total Bilirubin (0.2-1.0) mg/dL AST (10-42) IU/L ALT (10-60) IU/L Alkaline Phosphatase (42-121) IU/L Troponin I High Sens (2.3-14.8) ng/L Total Protein (6.7-8.2) g/dL Albumin (3.2-5.5) g/dL Globulin (2.1-4.2) g/dL Albumin/Globulin Ratio (1.0-2.2) Lipase (22-51) U/L Urine Color Urine Clarity (CLEAR) Urine pH (5.0-7.5) PH Ur Specific [place] (1.002-1.030) Urine Protein (NEGATIVE) mg/dL Urine Glucose (UA) (NEGATIVE) mg/dL Urine Ketones (NEGATIVE) mg/dL Urine Occult Blood (NEGATIVE) Urine Nitrite (NEGATIVE) Urine Bilirubin (NEGATIVE) Urine Urobilinogen (NORMAL) E.U./dL Ur Leukocyte Esterase (NEGATIVE) Ur Microscopic Review Urine Culture Comments Nasal Screen MRSA (PCR) (NEGATIVE) Urine Opiates Screen (NEGATIVE) Ur Oxycodone Screen (NEGATIVE) Urine Methadone Screen (NEGATIVE) Ur Propoxyphene Screen (NEGATIVE) Ur Barbiturates Screen (NEGATIVE) Ur Tricyclics Screen (NEGATIVE) Ur Phencyclidine Scrn (NEGATIVE) Ur Amphetamine Screen (NEGATIVE) U Methamphetamines Scrn (NEGATIVE) U Benzodiazepines Scrn (NEGATIVE) Urine Cocaine Screen (NEGATIVE) U Cannabinoids Screen (NEGATIVE) Ethyl Alcohol mg/dL Coronavirus (PCR) - Diagnostic Imaging Diagnostic Imaging Comments: CXR 15APR - endotracheal tube tip 4cm above sosa. Orogastric tube tip extends beyond the inferior margin of the film. Reticular opacity within the lungs. Costophrenic sulcus blunting CT head/CTA 15APR: No acute intracranial hemorrhage, midline shift, mass. 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 No significant intracranial arterial stenosis. ABX Reporting Has patient been on IV antibiotics over the past 48 hours?: No Assessment/Plan - Problem List (1) Respiratory failure Impression: 79 yo F with acute respiratory failure in the setting of acute encephalopathy (altered mental status) who required intubation. - Differential diagnosis includes but is not limited to: [place], PE, seizure, CHF. - Work on extubation. Patient did not do well with trial of autonomous ventialition with significant apnea. Qualifiers: Chronicity: acute Respiratory failure complication: unspecified whether with hypoxia or hypercapnia Qualified Code(s): J96.00 - Acute respiratory failure, unspecified whether with hypoxia or hypercapnia (2) Altered mental status Impression: 79 yo F with altered mental status without clear etiology. - Differential diagnosis includes but is not limited to: seziure, PE, [place], adverse behavior (history of schziophrenia), hypothyroidism. Repeat UDS which did not have cocaine or meth. Likely original UDS was a fluke. - Rads: TTE - Labs: TSH Qualifiers: Altered mental status type: coma Coma depth: Jh coma 3-8 Coma timing: in the field (EMT or ambulance) Qualified Code(s): R40.2431 - Jh coma scale score 3-8, in the field [EMT or ambulance] (3) Elevated troponin I measurement Impression: 79 yo F admitted for acute respiratory failure, altered mental status of unclear etiology found to have 3 elevated troponin I high sensitivity. No acute EKG changes on admission. 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 - Hold warfarin - Monitor with Daily INR and restart warfarin or switch to DOAC once INR is between 2-3. (5) Schizophrenia Impression: 79 yo F with chronic schizophrenia. - continue risperidone.
[2020-01-12 10:51] LABS: MAGNESIUM 2.2 mg/dL (1.7-2.8); PHOSPHORUS 2.5 mg/dL (2.5-4.6)
[2020-01-12] MEDS ORDERED: IOVERSOL 320 100 ML VIAL IVP ONE ×2 (12:13→15:13)
[2020-01-12] MEDS: LORazepam 2 MG/ML VIAL IVP PRN (12:40)
[2020-01-12] MEDS ORDERED: SODIUM CHLORIDE INHALATION 3 ML NEB ONE (13:07)
--- NOTE | 2020-01-12 14:32 | CT Report ---
Reason: acute respiratory failure Procedure Date: 01/12/2020 Accession Number: [id number] / [id number] Procedure: CT - ANGIO CHEST W/WO CPT Code: Final Report FULL RESULT: EXAM: CT ANGIOGRAM CHEST EXAM DATE: 01/12/2020 01:15 PM. CLINICAL HISTORY: Acute respiratory failure. COMPARISON: XR CHEST PA AND LAT 05/19/2012 4:53 PM. TECHNIQUE: Routine helical imaging was performed through the chest in the pulmonary arterial phase. IV Contrast: OPTIRAY 320. Reconstructions: Coronal 3-D MIP reconstructions. Sagittal and coronal. In accordance with CT protocol optimization, one or more of the following dose reduction techniques were utilized for this exam: automated exposure control, adjustment of mA and/or KV based on patient size, or use of iterative reconstructive technique. FINDINGS: Pulmonary Arteries: Diagnostic quality: Adequate through the mid segmental arteries. No evidence for acute or chronic pulmonary emboli. No evidence of central embolus. Lungs/Pleura: There is bilateral dependent consolidation. There is peripheral punctate hyperdensity within posterior lung bases. There is a small right pleural effusion. There is mild subpleural reticulation. There is no pneumothorax. Mediastinum: There is cardiomegaly. There are no enlarged axillary, supraclavicular, mediastinal, or hilar lymph nodes. There are bilateral thyroid cysts. Thoracic Aorta: There is no evidence of aortic dissection or aneurysm. Upper Abdomen: The visualized portions of the upper abdominal organs demonstrate no acute abnormalities. Other: None. IMPRESSION: 1. No evidence of acute pulmonary embolism. 2. There is bibasilar dependent consolidation which may represent atelectasis. 3. There is subpleural reticulation. There is punctate calcific density within the posterior lungs. Findings may represent fibrosis with diffuse pulmonary ossification. 4. No aortic dissection or aneurysm. [facility]
[2020-01-12] MEDS ORDERED: FUROSEMIDE 20 MG/2 ML VIAL IVP STA (15:52)
[2020-01-12] MEDS ORDERED: ALBUTEROL NEB 2.5 MG/3 ML INH PRN (17:08)
[2020-01-13] MEDS: SODIUM CHLORIDE FLUSH 0.9% 10 ML SYRINGE IVP SCH ×4 (00:18→23:02)
[2020-01-13 05:25] LABS: HGB - HEMOGLOBIN 12.5 g/dL (12.0-16.0); MEAN CORPUSCULAR HEMOGLOBIN 30.2 pg (27.0-31.0); MEAN CORPUSCULAR HGB CONC 30.6 g/dL (32.0-36.0); MEAN CORPUSCULAR VOLUME 98.8 fL (81.0-99.0); RED BLOOD COUNT 4.14 10^6/uL (4.20-5.40); RED CELL DISTRIBUTION WIDTH 14.3 % (12.0-15.0); WHITE BLOOD COUNT 6.1 x10^3/uL (4.8-10.8)
[2020-01-13 05:32] LABS: CALCIUM 7.6 mg/dL (8.5-10.3); CREATININE 0.6 mg/dL (0.4-1.0)
[2020-01-13] MEDS: DEXTROSE 5%-0.45% NACL 1,000 ML IV SCH ×2 (06:08→18:00)
[2020-01-13 06:57] LABS: MAGNESIUM 2.1 mg/dL (1.7-2.8); PHOSPHORUS 2.8 mg/dL (2.5-4.6)
[2020-01-13 08:22] LABS: INR 3.4 (0.8-1.2); PT - PROTHROMBIN TIME 35.9 secs (9.9-12.6)
[2020-01-13] MEDS: FAMOTIDINE 20 MG/2 ML SYRINGE IVP SCH (09:13)
[2020-01-13] MEDS: CHLORHEXIDINE GLUCONATE 15 ML UDC PO SCH ×2 (09:15→20:32)
[2020-01-13] MEDS: MIDAZOLAM DRIP 50 MG/100 ML BAG IV SCH (11:31)
[2020-01-13] MEDS: AZITHROMYCIN INJ 500 MG in SODIUM CHLORIDE 0.9% 250 ML IV SCH (12:40)
--- NOTE | 2020-01-13 12:42 | PROVIDER PROGRESS NOTE ---
Assessment/Plan - Problem List (1) Respiratory failure Qualifiers: Chronicity: acute Respiratory failure complication: unspecified whether with hypoxia or hypercapnia Qualified Code(s): J96.00 - Acute respiratory failure, unspecified whether with hypoxia or hypercapnia Assessment/Plan: Improved. Patient was extubated yesterday and has been doing well since then. She was on 2 L of oxygen via nasal cannula but has since been taken off oxygen. However she sounds somewhat rhonchorous and has significant secretions. In light of a chest CT scan at admission which showed consolidation and a recent temperature of 100 F, patient was started on Rocephin and azithromycin empirically. (2) Altered mental status Qualifiers: Altered mental status type: coma Coma depth: Cameron coma 3-8 Coma timing: in the field (EMT or ambulance) Qualified Code(s): R40.2431 - Jh coma scale score 3-8, in the field [EMT or ambulance] Assessment/Plan: Improved/resolved. Etiology was undetermined It appears patient is back to her baseline. At baseline she is developmentally delayed and functions at the level of a 12-year-old. She is able to answer simple/straightforward questions appropriately. (3) Fever Assessment/Plan: Low-grade. Temperature was 100 F. Patient was started on Rocephin and azithromycin empirically. Urine analysis is pending. Blood cultures pending. (4) Elevated troponin I measurement Assessment/Plan: Troponins were trended and plateaued out. Elevation could have been due to respiratory distress and demand ischemia. 2D echo was done, left ventricular ejection fraction was 65 to 70%. There was no regional wall motion abnormality seen. There was no evidence of aortic stenosis. The left and right ventricles were of normal size (5) Supratherapeutic international normalized ratio (INR) Assessment/Plan: INR today was 3.4. We will continue to hold Coumadin. We will recheck INR in the morning. (6) Schizophrenia Assessment/Plan: Chronic. Patient is on risperidone. We will continue (7) Hypothyroidism Assessment/Plan: Will resume Synthroid 75 mcg q.a.m before breakfast. - Current Meds Current Meds: Current Medications Generic Name Dose Route Start Last Admin Trade Name Freq PRN Reason Stop Dose Admin Chlorhexidine Gluconate 15 ml 01/11/20 22:00 01/13/20 09:15 Peridex PO 15 ml BID JULIETA Administration Famotidine 20 mg 04/17/20 09:00 01/13/20 09:13 Pepcid IVP 20 mg DAILY JULIETA Administration Dextrose/Sodium Chloride 1,000 mls @ 100 mls/hr 01/11/20 14:00 01/13/20 12:00 D5.45ns IV 100 mls/hr .Q10H JULIETA Infusion Midazolam HCl 50 mg in 100 mls @ 7.04 mls/hr 01/11/20 16:00 01/13/20 11:31 Versed Drip IV Not Given .[id number] JULIETA Protocol 0.04 MG/KG/HR Lorazepam 0.5 mg 01/12/20 12:01 01/12/20 12:40 Ativan Inj (Vial) IVP 0.5 mg Q2H PRN Administration Anxiety Sodium Chloride 10 ml 01/11/20 17:00 01/13/20 09:14 Normal Saline Flush 0.9% IVP 10 ml 0100,0900,1700 JULIETA Administration Sodium Chloride 10 ml 01/11/20 13:39 01/12/20 00:45 Normal Saline Flush 0.9% IVP 10 ml PRN PRN Administration NEEDED PER PROVIDER ORDERS - Lab Result Lab results reviewed: No Fish Bone Diagrams: 01/13/20 04:30 01/13/20 04:30 - Additional Planning My Orders: My Active Orders 01/13/20 Blood Culture [CULTURE, BLOOD #1] [] Stat Blood Culture [CULTURE, BLOOD #2] [] Stat 01/13/20 12:27 UA w/ MICROSCOPIC, CULT IF [URIN] Routine 01/13/20 13:00 Azithromycin Inj [Zithromax Inj] 500 mg Sodium Chloride 0.9% [Normal Saline 0.9%] 250 ml IV DAILY cefTRIAXone [Rocephin] 1 gm Sodium Chloride 0.9% Minibag [Normal Saline 0.9% Minibag] 100 ml IV DAILY Subjective - Subjective Patient Reports: Other (Patient seen and examined this morning. She was resting comfortably in bed at time of the exam. Though she functions at the level of a 12-year-old due to developmental delay she is able to answer questions accurately and appropriately. She knows she is in the hospital and can tell me she lives in [place]. She is not able to explain why she is in the hospital. She denied chest pain, abdominal pain, nausea or vomiting. She sounds rhonchorous and has significant secretions. It is reported that she ambulates on her own and with a walker at home. She presents from [facility] home facility. However in the hospital here she has only been able to stand and pivot while working with physical therapy. She spiked a temperature of 100 F today. The rest of her history is unremarkable) Objective Vital Signs: Vital Signs - 24 hr 01/12/20 01/12/20 01/12/20 13:00 13:15 14:00 Temperature Heart Rate 66 Heart Rate [ 66 67 Monitoring electrodes] Respiratory 13 12 Rate Blood Pressure 121/55 L 115/63 [Left Brachial artery] O2 Saturation 98 100 01/12/20 01/12/20 01/12/20 15:00 16:00 17:00 Temperature 36.5 C Heart Rate Heart Rate [ 62 67 66 Monitoring electrodes] Respiratory 12 12 14 Rate Blood Pressure 112/57 L 116/54 L 116/58 L [Left Brachial artery] O2 Saturation 100 100 100 01/12/20 01/12/20 01/12/20 18:00 19:00 19:10 Temperature Heart Rate 64 Heart Rate [ 63 64 Monitoring electrodes] Respiratory 12 24 18 Rate Blood Pressure 110/51 L 108/59 L [Left Brachial artery] O2 Saturation 99 99 01/12/20 01/12/20 01/12/20 20:00 21:00 22:00 Temperature 97.6 C H Heart Rate Heart Rate [ 62 69 71 Monitoring electrodes] Respiratory 14 16 12 Rate Blood Pressure 121/62 128/104 H 123/66 [Left Brachial artery] O2 Saturation 100 99 100 01/12/20 01/13/20 01/13/20 23:00 00:00 01:00 Temperature 98.1 C H Heart Rate Heart Rate [ 67 75 65 Monitoring electrodes] Respiratory 12 14 13 Rate Blood Pressure 130/68 126/65 111/53 L [Left Brachial artery] O2 Saturation 100 99 100 01/13/20 01/13/20 01/13/20 02:00 03:00 04:00 Temperature 98.3 C H Heart Rate Heart Rate [ 71 75 72 Monitoring electrodes] Respiratory 16 20 15 Rate Blood Pressure 114/57 L 123/58 L 118/58 L [Left Brachial artery] O2 Saturation 99 100 98 01/13/20 01/13/20 01/13/20 04:59 06:00 07:00 Temperature Heart Rate Heart Rate [ 75 79 80 Monitoring electrodes] Respiratory 16 20 15 Rate Blood Pressure 129/63 107/95 H 130/54 L [Left Brachial artery] O2 Saturation 100 99 98 01/13/20 01/13/20 08:00 11:58 Temperature 37.4 C 37.7 C H Heart Rate Heart Rate [ 83 96 Monitoring electrodes] Respiratory 19 23 Rate Blood Pressure 121/49 L 132/67 H [Left Brachial artery] O2 Saturation 96 92 Oxygen O2 Source Room air Oxygen Flow Rate 15 I&O (Last 24 Hrs): Intake and Output Totals x24h 01/11/20 01/12/20 01/13/20 23:59 23:59 23:59 Intake Total 6076.474 9318.648 1471.667 Output Total 875 2497 949 Balance 291.390 461.648 522.667 General: Alert, Oriented x3, Cooperative, No acute distress HEENT: Atraumatic, PERRLA, EOMI Neck: No JVD Neuro: Other (Developmentally delayed) Cardiovascular: Regular rate, Normal S1, Normal S2, No murmurs Respiratory: Rhonchi Abdomen: Normal bowel sounds, Soft, No tenderness Extremities: Other (lower extremity edema) Skin: No rashes - Results Results: Laboratory Results WBC 6.1 x10^3/uL (4.8-10.8) 01/13/20 04:30 RBC 4.14 10^6/uL (4.20-5.40) L 01/13/20 04:30 Hgb 12.5 g/dL (12.0-16.0) 01/13/20 04:30 Hct 40.9 % (37.0-47.0) 01/13/20 04:30 MCV 98.8 fL (81.0-99.0) 01/13/20 04:30 MCH 30.2 pg (27.0-31.0) 01/13/20 04:30 MCHC 30.6 g/dL (32.0-36.0) L 01/13/20 04:30 RDW 14.3 % (12.0-15.0) 01/13/20 04:30 Plt Count 148 10^3/uL (130-450) 01/13/20 04:30 MPV 11.0 fL (7.9-10.8) H 01/13/20 04:30 Neut # (Auto) 3.3 10^3/uL (1.5-6.6) 01/12/20 05:10 Lymph # (Auto) 1.5 10^3/uL (1.5-3.5) 01/12/20 05:10 [place] # (Auto) 0.4 10^3/uL (0.0-1.0) 01/12/20 05:10 Eos # (Auto) 0.1 10^3/uL (0.0-0.7) 01/12/20 05:10 Baso # (Auto) 0.0 10^3/uL (0.0-0.1) 01/12/20 05:10 Absolute Nucleated RBC 0.00 x10^3/uL 01/12/20 05:10 Nucleated RBC % 0.0 /100WBC 01/12/20 05:10 PT 35.9 secs (9.9-12.6) H 01/13/20 08:06 INR 3.4 (0.8-1.2) H 01/13/20 08:06 Whole Blood INR 3.7 (0.8-1.2) H 01/12/20 05:10 Bld Gas Analysis Time 234601/11/20 23:39 Sample Site RIGHT BRACHIAL 01/11/20 23:39 ABG pH 7.47 (7.35-7.45) H 01/11/20 23:39 ABG pCO2 32 mmHg (34-45) L 01/11/20 23:39 ABG pO2 117 mmHg (80-100) H 01/11/20 23:39 ABG HCO3 22.8 mmol/L (22.0-26.0) 01/11/20 23:39 ABG Total CO2 23.7 MMOL/L (21.0-29.0) 01/11/20 23:39 ABG O2 Saturation 98 % (94-98) 01/11/20 23:39 ABG Base Excess -0.2 mmol/L (-2.0-3.0) 01/11/20 23:39 Ruperto Test POSITIVE 01/11/20 23:39 Respiration Rate 20 b/min 01/11/20 23:39 O2 Delivery Device VENTILATOR 01/11/20 23:39 Vent Mode SIMV 01/11/20 23:39 FiO2 35.00 01/11/20 23:39 Tidal Volume 450 mL 01/11/20 23:39 PEEP 5 cmH2O 01/11/20 23:39 Pressure Support Vent 10 cmH2O 01/11/20 23:39 Sodium 135 mmol/L (135-145) 01/13/20 04:30 Potassium 3.7 mmol/L (3.5-5.0) 01/13/20 04:30 Chloride 103 mmol/L (101-111) 01/13/20 04:30 Carbon Dioxide 23 mmol/L (21-32) 01/13/20 04:30 Anion Gap 9.0 (6-13) 01/13/20 04:30 BUN 7 mg/dL (6-20) 01/13/20 04:30 Creatinine 0.6 mg/dL (0.4-1.0) 01/13/20 04:30 Estimated GFR (MDRD) 97 (>89) 01/13/20 04:30 Glucose 121 mg/dL (70-100) H 01/13/20 04:30 Calcium 7.6 mg/dL (8.5-10.3) L 01/13/20 04:30 Phosphorus 2.8 mg/dL (2.5-4.6) 01/13/20 04:31 Magnesium 2.1 mg/dL (1.7-2.8) 01/13/20 04:31 Total Bilirubin 0.2 mg/dL (0.2-1.0) 01/11/20 11:37 AST 16 IU/L (10-42) 01/11/20 11:37 ALT 10 IU/L (10-60) 01/11/20 11:37 Alkaline Phosphatase 62 IU/L (42-121) 01/11/20 11:37 Troponin I High Sens 76.4 ng/L (2.3-14.8) H* 01/11/20 19:00 B-Natriuretic Peptide 172 pg/mL (5-100) H 01/12/20 16:52 Total Protein 5.9 g/dL (6.7-8.2) L 01/11/20 11:37 Albumin 3.1 g/dL (3.2-5.5) L 01/11/20 11:37 Globulin 2.8 g/dL (2.1-4.2) 01/11/20 11:37 Albumin/Globulin Ratio 1.1 (1.0-2.2) 01/11/20 11:37 Lipase 43 U/L (22-51) 01/11/20 11:37 TSH 1.98 uIU/mL (0.34-5.60) 01/12/20 05:10 Urine Color YELLOW 01/11/20 12:32 Urine Clarity CLEAR (CLEAR) 01/11/20 12:32 Urine pH 6.0 PH (5.0-7.5) 01/11/20 12:32 Ur Specific [place] 1.025 (1.002-1.030) 01/11/20 12:32 Urine Protein NEGATIVE mg/dL (NEGATIVE) 01/11/20 12:32 Urine Glucose (UA) NEGATIVE mg/dL (NEGATIVE) 01/11/20 12:32 Urine Ketones NEGATIVE mg/dL (NEGATIVE) 01/11/20 12:32 Urine Occult Blood NEGATIVE (NEGATIVE) 01/11/20 12:32 Urine Nitrite NEGATIVE (NEGATIVE) 01/11/20 12:32 Urine Bilirubin NEGATIVE (NEGATIVE) 01/11/20 12:32 Urine Urobilinogen 0.2 (NORMAL) E.U./dL (NORMAL) 01/11/20 12:32 Ur Leukocyte Esterase NEGATIVE (NEGATIVE) 01/11/20 12:32 Ur Microscopic Review NOT INDICATED 01/11/20 12:32 Urine Culture Comments NOT INDICATED 01/11/20 12:32 Nasal Screen MRSA (PCR) NEGATIVE (NEGATIVE) 01/11/20 14:50 Urine Opiates Screen NEGATIVE (NEGATIVE) 01/12/20 08:00 Ur Oxycodone Screen NEGATIVE (NEGATIVE) 01/12/20 08:00 Urine Methadone Screen NEGATIVE (NEGATIVE) 01/12/20 08:00 Ur Propoxyphene Screen NEGATIVE (NEGATIVE) 01/12/20 08:00 Ur Barbiturates Screen NEGATIVE (NEGATIVE) 01/12/20 08:00 Ur Tricyclics Screen POSITIVE (NEGATIVE) H 01/12/20 08:00 Ur Phencyclidine Scrn NEGATIVE (NEGATIVE) 01/12/20 08:00 Ur Amphetamine Screen NEGATIVE (NEGATIVE) 01/12/20 08:00 U Methamphetamines Scrn NEGATIVE (NEGATIVE) 01/12/20 08:00 U Benzodiazepines Scrn POSITIVE (NEGATIVE) H 01/12/20 08:00 Urine Cocaine Screen NEGATIVE (NEGATIVE) 01/12/20 08:00 U Cannabinoids Screen NEGATIVE (NEGATIVE) 01/12/20 08:00 Ethyl Alcohol < 5.0 mg/dL 01/11/20 11:37 Coronavirus (PCR) NEGATIVE 01/11/20 16:42 ABX Reporting Has patient been on IV antibiotics over the past 48 hours?: No
[2020-01-13 13:56] LABS: BILIRUBIN,URINE NEGATIVE (NEGATIVE); GLUCOSE, URINE (UA) NEGATIVE (NEGATIVE); KETONES,URINE (UA) NEGATIVE (NEGATIVE); LEUKOCYTE ESTERASE, URINE TRACE (NEGATIVE); NITRITE,URINE NEGATIVE (NEGATIVE); OCCULT BLOOD,URINE SMALL (NEGATIVE); PH,URINE 6.5 PH (5.0-7.5); PROTEIN,URINE NEGATIVE (NEGATIVE); UROBILINOGEN,URINE 0.2 (NORMAL) E.U./dL (NORMAL)
[2020-01-13 13:57] LABS: CLARITY,URINE CLEAR (CLEAR)
[2020-01-13] MEDS: cefTRIAXone 1 GM in SODIUM CHLORIDE 0.9% MINIBAG 100 ML IV SCH (14:40)
[2020-01-13 14:44] LABS: BACTERIA,URINE Few /HPF (None Seen); RBC,URINE 0-5 /HPF (0-5); SQUAMOUS EPITHELIAL CELL,UR NONE SEEN (<= Few)
[2020-01-13] MEDS: risperiDONE 1 MG TABLET PO SCH (20:32)
[2020-01-13] MEDS ORDERED: traZODone 50 MG TABLET PO SCH (21:00)
[2020-01-13] MEDS: SODIUM CHLORIDE FLUSH 0.9% 10 ML SYRINGE IVP PRN (23:02)
[2020-01-13] MEDS: LORazepam 2 MG/ML VIAL IVP PRN (23:02)
[2020-01-13] MEDS ORDERED: ACETAMINOPHEN 500 MG TABLET PO PRN (23:19)
[2020-01-13] MEDS: MORPHINE 2 MG/ML CARPUJECT IVP PRN (23:30)
[2020-01-14] MEDS: MORPHINE 2 MG/ML CARPUJECT IVP PRN ×2 (03:12→06:28)
[2020-01-14] MEDS: DEXTROSE 5%-0.45% NACL 1,000 ML IV SCH (03:21)
[2020-01-14 05:01] LABS: HGB - HEMOGLOBIN 11.2 g/dL (12.0-16.0); MEAN CORPUSCULAR HEMOGLOBIN 31.6 pg (27.0-31.0); MEAN CORPUSCULAR HGB CONC 31.5 g/dL (32.0-36.0); MEAN CORPUSCULAR VOLUME 100.3 fL (81.0-99.0); MEAN PLATELET VOLUME 10.4 fL (7.9-10.8); RED BLOOD COUNT 3.54 10^6/uL (4.20-5.40); RED CELL DISTRIBUTION WIDTH 14.1 % (12.0-15.0)
[2020-01-14 05:06] LABS: CALCIUM 7.7 mg/dL (8.5-10.3); CREATININE 0.6 mg/dL (0.4-1.0)
[2020-01-14] MEDS ORDERED: LEVOTHYROXINE 75 MCG TABLET PO SCH (07:00)
[2020-01-14] MEDS: cefTRIAXone 1 GM in SODIUM CHLORIDE 0.9% MINIBAG 100 ML IV SCH (08:19)
[2020-01-14] MEDS: risperiDONE 1 MG TABLET PO SCH (08:26)
[2020-01-14 08:47] VITALS: BP 130/50
[2020-01-14] MEDS: SODIUM CHLORIDE FLUSH 0.9% 10 ML SYRINGE IVP SCH (09:00)
--- NOTE | 2020-01-14 09:03 | XRAY Report ---
Reason: Abdominal pain Procedure Date: 01/14/2020 Accession Number: [id number] / [id number] Procedure: XR - Abdomen 1 View X-Ray CPT Code: 59772 Final Report FULL RESULT: EXAM: ABDOMEN RADIOGRAPHY EXAM DATE: 01/14/2020 07:31 AM. CLINICAL HISTORY: Abdominal pain. COMPARISON: CHEST ANGIO 01/12/2020 1:01 PM CHEST 1 VIEW 01/11/2020 12:18 PM. TECHNIQUE: 1 view. FINDINGS: Bowel Gas Pattern: Diffuse gaseous distention of the colon. No obviously dilated loops of bowel identified. Other: Partially visualized opacities in the lung bases. IMPRESSION: 1. Diffuse gaseous distention of colon. 2. No obvious dilated loops of bowel identified. 3. Partially visualized opacities in lung bases. RADIA
[2020-01-14] MEDS: FAMOTIDINE 20 MG/2 ML SYRINGE IVP SCH (09:16)
[2020-01-14] MEDS: AZITHROMYCIN INJ 500 MG in SODIUM CHLORIDE 0.9% 250 ML IV SCH (09:16)
[2020-01-14] MEDS: CHLORHEXIDINE GLUCONATE 15 ML UDC PO SCH (09:19)
--- NOTE | 2020-01-14 12:03 | DISCHARGE SUMMARY ---
Discharge Summary Admit Date: 01/11/20 Discharge Date: 01/14/20 Discharging Provider: Shelia Mclean Primary Care Provider: Stefano Russell Code Status: Attempt Resuscitation Condition at Discharge: Stable Discharge Disposition: 01 Home, Self Care Discharge Facility Name: [facility] - DIAGNOSES Admission Diagnoses: 1. Respiratory failure 2. Altered mental status 3. Fever 4. Elevated troponin I measurement 5. Supratherapeutic INR 6. Schizophrenia 7. Hypothyroidism Discharge Diagnoses with Status of Each Condition: 1. Respiratory failure: Resolved 2. Altered mental status: Resolved 3. Fever: Resolved 4. Elevated troponin I measurement 5. Supratherapeutic INR: Resolved 6. Schizophrenia: Chronic 7. Hypothyroidism: Chronic - HPI History of Present Illness: Per HPI of admission H&P: 79 yo female with developmental delay and schizophrenia who resides at a [facility] in [place]. Pt was eating breakfast and according to visitor services specialist, she got upset at a roommate for stealing her cup of coffee. She then became weak and leaned to one side and needed assistance to get into chair and was not speaking so ambulance was called. Pt is on warfarin for recurrent pulmonary embolism/DVT and was noted to be supra-therapeutic INR. Her GCS in the ED was 6 as she was non-responsive and required intubation. No seizure activity noted. Patient's sister verified patient is a full code. She was thought to be a possible stroke protocol, however, not a candidate for TPA with supra-therapeutic INR and negative CT head. Her UDS did come back later positive for cocaine and met hamphetamine use. Reviewed meds from her primary, she is not on any meds that could give a false positive for that UDS. - HOSPITAL COURSE Hospital Course: At admission CT of the brain and CT of the chest were done. This was found to be unremarkable and could not explain the acute or sudden change in patient's mental status. In less than 24 hours of being admitted the patient was extubated. She did well status post extubation and did not require any supplemental oxygen. Initial urine drug screen indicated positive for methamphetamine and cocaine however this was repeated in less than 24 hours of the first test and came back negative. Suspicion is that this was likely a false positive report. The patient's social setting is such that it would not support this finding. She lives [facility] [place] [facility] and at baseline has some developmental delay. She underwent a COVID testing which was negative on January 11, 2020. Blood cultures were no growth to date On January 13, 2020 she had a temperature of 100 Fahrenheit. The UA was unremarkable. She was empirically placed on Rocephin and azithromycin. This was because there was mention of possible consolidation on the CT scan that was done last admission. She completed a regimen of azithromycin before discharge. She worked with physical therapy while in the hospital here. She was able to ambulate to the bathroom with minimal difficulty. Upon discharge a PT OT order was placed. Patient's caregiver by name Henny was at bedside prior to discharge. The care plan was discussed with her. She was advised to follow-up with the primary care physician within 7 days as needed. - ALLERGIES Allergies/Adverse Reactions: Allergies Allergy/AdvReac Type Severity Reaction Status Date / Time Penicillins Allergy Unknown Verified 07/22/19 19:30 - MEDICATIONS Home Medications: Ambulatory Orders Medication Instructions Recorded Confirmed Levothyroxine [Synthroid] 75 mcg PO QDAC 07/22/19 01/11/20 Simvastatin [Zocor] 20 mg PO QPM 07/22/19 01/11/20 Torsemide 40 mg PO DAILY 07/22/19 01/11/20 Warfarin [Coumadin] 5 mg PO SUTUTHSA 07/22/19 01/11/20 risperiDONE [Risperdal] 3 mg PO BID 07/22/19 01/11/20 Diclofenac Sodium [Voltaren] 2 gm TP BID PRN 01/11/20 01/11/20 Potassium Chloride 10 meq PO BIDWM 01/11/20 01/11/20 Trazodone HCl 200 mg PO QPM 01/11/20 01/11/20 Warfarin [Coumadin] 2.5 mg PO MOWEFR 01/11/20 01/11/20 - PHYSICAL EXAM AT DISCHARGE General Appearance: positive: No acute distress, Alert Eyes Bilateral: positive: Normal inspection, PERRL, EOMI ENT: positive: ENT inspection nml, Pharynx nml, No signs of dehydration Neck: positive: Nml inspection, Thyroid nml, No JVD, Trachea midline Respiratory: positive: Chest non-tender, No respiratory distress, Other (Coarse breath sounds) Cardiovascular: positive: Regular rate & rhythm Abdomen: positive: Nml bowel sounds, No distention Back: positive: Nml inspection Skin: positive: Color nml, No rash, Warm, Dry Extremities: positive: Non-tender, Pedal edema Neurologic/Psychiatric: positive: Oriented x3, Mood/affect nml, Other (Developmental delay. Baseline function at level of 12 yr old) - LABS Result Diagrams: 01/14/20 04:49 01/14/20 04:49 - DIAGNOSTIC IMAGING Diagnostic Imaging Results Comments: 2D echocardiogram was done. On January 13, 2020. Ejection fraction was 65 to 70%. There was a largely unremarkable echocardiogram. - SEPSIS Current Stage of Sepsis: Ruled out - TIME SPENT Time Spent in Discharge (Minutes): 35
--- NOTE | 2020-01-14 12:04 | Discharge Plan ---
Discharge Plan Problem Reviewed?: Yes Disposition: Home, Self Care Condition: Stable Diet: Regular Activity Restrictions: Activity as Tolerated Shower Restrictions: No Assistance Devices: Walker Weight Bearing: Full Weight Health Concerns: You were admitted on January 11, 2020 for acute respiratory failure and altered mental status. There was concern about your ability to protect your airway so you were intubated. Work-up in the hospital included a CT scan of your brain, chest and lab work included CBC, CMP and an ABG. These were largely unremarkable. You also had a COVID-19 testing which came back negative on January 11, 2020. In less than 24 hours on the ventilator you were extubated. You did well after extubation and did not require any supplemental oxygen. To this point the cause of your sudden change in mentation and respiratory failure is unknown. However 2 days later you had a temperature of 100 F. As a result you were em pirically put on antibiotics. This included Rocephin and azithromycin. By the time of discharge you had completed a full regiment of azithromycin.You have not had a fever in over 24 hours. Henny who [facility] came to the hospital and assessed your baseline. She confirms that you are back to your baseline and from her point of view okay to come back to the facility. When you presented to the hospital, your INR was 4.7. As a result your Coumadin was held. We will resume upon discharge with instructions to follow-up with your primary physician for further management Your caregiver Henny was advised to give you prune juice while at the facility to help with bowel movement Your home medications have been resumed. Instructions are for you to follow-up with your primary care physician within 7 days for a post-hospitalization follow-up. You also had an echocardiogram done which showed an ejection fraction of 65 to 70%. It was largely on remarkable 2D echocardiogram. Assessment: The care plan was discussed with Henny who is the caregiver [facility]. She expressed understanding. No Smoking: If you smoke, Please STOP! Call for help.
[2020-01-14 12:43] LABS: INR 2.7 (0.8-1.2); PT - PROTHROMBIN TIME 29.1 secs (9.9-12.6)
[2020-01-14] MEDS ORDERED: AZITHROMYCIN 250 MG TABLET PO SCH (13:00)
== END 2020-01-14 15:45 | disposition home or self-care (01) | DRG 208 ==
LOC: EDUNIT# → ED 11:16 → ICU 13:39
PROVIDERS: ADMIT Family Medicine; ATTEND Internal Medicine
PROC: 5A1935Z Respiratory Ventilation, Less than 24 Consecutive Hours (ICD-10-PCS; principal; 2020-01-11)
DX: J96.00 Acute respiratory failure, unspecified whether with hypoxia or hypercapnia (principal); R40.0 Somnolence; F20.89 Other schizophrenia; R40.2432 Glasgow coma scale score 3-8, at arrival to emergency department; R50.9 Fever, unspecified; E03.9 Hypothyroidism, unspecified; R79.1 Abnormal coagulation profile; F03.90 Unspecified dementia, unspecified severity, without behavioral disturbance, psychotic disturbance, mood disturbance, and anxiety; F41.9 Anxiety disorder, unspecified; R62.50 Unspecified lack of expected normal physiological development in childhood; L40.9 Psoriasis, unspecified; M19.90 Unspecified osteoarthritis, unspecified site; R79.89 Other specified abnormal findings of blood chemistry; K59.09 Other constipation; Z79.01 Long term (current) use of anticoagulants; Z86.711 Personal history of pulmonary embolism; Z86.718 Personal history of other venous thrombosis and embolism
CPT/HCPCS: 31500; 36415; 36600; 51702; 70496; 70498; 71275; 74018; 80048; 80053; 81001; 81003; 82803; 83690; 83735; 83880; 84100; 84443; 84484; 85025; 85027; 85610; 87040; 87077; 87086; 87150; 92610; 93005; 93306; 94002; 94003; 94644; 97163; 97530; 99291; A9270; J0330; J2060; Q9967; U0002; 70450; 71045; 80306; 80320; 81599; 94770

== ENCOUNTER 2020-02-15 08:00 | Outpatient (CLI) | payer MEDICARE, MEDICAID | END 2020-02-15 23:59 | disposition home or self-care (01) | LOC: LAB.WCP 08:00 | PROVIDERS: ATTEND Family Medicine | DX: I82.409 Acute embolism and thrombosis of unspecified deep veins of unspecified lower extremity (principal); Z79.01 Long term (current) use of anticoagulants; D68.59 Other primary thrombophilia; Z86.711 Personal history of pulmonary embolism ==

== ENCOUNTER 2020-02-18 12:42 | Inpatient (IN) | payer MEDICARE, MEDICAID ==
--- NOTE | 2020-02-18 13:26 | ED Physician Documentation ---
PD HPI ALTERED MENTAL STATUS - Stated complaint Stated Complaint: LETHARGIC,FEMALE - Chief complaint Chief Complaint: General - History obtained from History obtained from: Patient, Caregiver - History of Present Illness Timing - onset: How many days ago (few) Timing - duration: Days (This patient has had several days progressive weakness and a bit of confusion and decreased oral intake. Her caregiver at the family correction she is at noted a odorous urine. No chest pain. She did slump to the floor at the edge of the bed earlier today due to weakness but did not aden arently hit her head. She is on anticoagulant) Timing - details: Gradual onset, Still present Quality / character: Less responsive, Confused, Other (general weakness) Associated symptoms: Urinary sx (caregiver states urine was cloudy and dark.). No: Fever, Headache, Stiff neck, Dyspnea, Cough, NVD Contributing factors: No: New medication, Recent med change, Recent illness Basline status: Confused, Walker Similar symptoms before: Diagnosis (similar with prior UTIs or illnesses) Recently seen: Emergency Dept, Admitted (weakness, confusion, elevated troponin in December 2019. Had troponin 70s stable over 3 readings with ECHO showing 55-60% EF and no local wall motion abnormality.) Review of Systems Constitutional: denies: Fever Nose: denies: Rhinorrhea / runny nose, Congestion Throat: denies: Sore throat Cardiac: denies: Chest pain / pressure, Palpitations Respiratory: denies: Dyspnea, Cough GI: reports: Other (decreased oral intake for few days). denies: Vomiting, Diarrhea : denies: Dysuria (caregiver noted cloudy and dark urine for couple days, with strong odor.) Skin: denies: Rash Neurologic: reports: Generalized weakness, Confused (more than baseline. Pt usually uses walker and can be lead/guided with ease. Has needed arm assistance with getting up for few days, and slumped to floor today when trying to get up.) PD PAST MEDICAL HISTORY - Past Medical History Cardiovascular: None, Deep vein thrombosis, Pulmonary embolism Neuro: Dementia, Other Endocrine/Autoimmune: HyPOthyroidism GI: Chronic constipation Psych: Anxiety, Schizophrenia Musculoskeletal: Osteoarthritis Derm: Psoriasis - Past Surgical History Past Surgical History: No - Present Medications Home Medications: Ambulatory Orders Medication Instructions Recorded Confirmed Levothyroxine [Synthroid] 75 mcg PO QDAC 07/22/19 02/18/20 Simvastatin [Zocor] 20 mg PO QPM 07/22/19 02/18/20 Torsemide 40 mg PO BID 07/22/19 02/18/20 Potassium Chloride 10 meq PO BIDWM 01/11/20 02/18/20 Acetaminophen 500 mg PO TID PRN 02/18/20 02/18/20 Ascorbic Acid 500 mg PO DAILY 02/18/20 02/18/20 Docusate Sodium 250Mg Capsule 250 mg PO DAILY 02/18/20 02/18/20 [Colace 250Mg Capsule] Trazodone HCl 200 mg PO QPM 02/18/20 02/18/20 Warfarin Sodium 2.5 mg PO MOWEFR@1400 02/18/20 02/18/20 Warfarin Sodium 5 mg PO SUTUTHSA@1400 02/18/20 02/18/20 risperiDONE [Risperdal] 3 mg PO BID 02/18/20 02/18/20 - Allergies Allergies/Adverse Reactions: Allergies Allergy/AdvReac Type Severity Reaction Status Date / Time Penicillins Allergy Unknown Verified 02/18/20 12:47 - Social History Does the pt smoke?: No Smoking Status: Never smoker Does the pt drink ETOH?: No Does the pt have substance abuse?: No - Immunizations Immunizations are current?: Yes - POLST Patient has POLST: No POLST Status: Full Code PD ED PE NORMAL - Vitals Vital signs reviewed: Yes - General General: No acute distress, Well developed/nourished. No: Alert and oriented X 3 (to person) - HEENT HEENT: Atraumatic, Ears normal, Pharynx benign. No: Moist mucous membranes - Neck Neck: Supple, no meningeal sign, No adenopathy - Cardiac Cardiac: RRR, No murmur - Respiratory Respiratory: Clear bilaterally - Abdomen Abdomen: Soft, Non tender, Non distended. No: Normal bowel sounds (diminished) - Back Back: No CVA TTP - Derm Derm: Normal color, Warm and dry - Extremities Extremities: No calf tenderness / cord, Other (significant bilateral lymphedema in both legs/feet. 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 No: ST elevation c/w ischemia, ST depression - Labs Labs: Laboratory Tests 02/18/20 02/18/20 02/18/20 13:12 13:12 13:12 WBC 8.4 RBC 4.11 L Hgb 12.9 Hct 40.9 MCV 99.5 H MCH 31.4 H MCHC 31.5 L RDW 14.8 Plt Count 161 MPV 10.5 Neut # (Auto) 6.8 H Lymph # (Auto) 0.7 L [place] # (Auto) 0.8 Eos # (Auto) 0.0 Baso # (Auto) 0.0 Absolute Nucleated RBC 0.00 Nucleated RBC % 0.0 PT INR Sodium 138 Potassium 4.0 Chloride 99 L Carbon Dioxide 28 Anion Gap 11.0 BUN 22 H Creatinine 1.1 H Estimated GFR (MDRD) 48 L Glucose 100 Lactic Acid Calcium 8.3 L Magnesium Total Bilirubin 1.1 H AST 50 H ALT 18 Alkaline Phosphatase 62 Troponin I High Sens 289.9 H* B-Natriuretic Peptide Total Protein 6.9 Albumin 3.5 Globulin 3.4 Albumin/Globulin Ratio 1.0 Lipase 36 Urine Color Urine Clarity Urine pH Ur Specific [place] Urine Protein Urine Glucose (UA) Urine Ketones Urine Occult Blood Urine Nitrite Urine Bilirubin Urine Urobilinogen Ur Leukocyte Esterase Urine RBC Urine WBC Ur Epithelial Cells Ur Squamous Epith Cells Urine Bacteria Ur Microscopic Review Urine Culture Comments 02/18/20 02/18/20 02/18/20 13:12 13:12 13:12 WBC RBC Hgb Hct MCV MCH MCHC RDW Plt Count MPV Neut # (Auto) Lymph # (Auto) [place] # (Auto) Eos # (Auto) Baso # (Auto) Absolute Nucleated RBC Nucleated RBC % PT 37.4 H INR 3.5 H Sodium Potassium Chloride Carbon Dioxide Anion Gap BUN Creatinine Estimated GFR (MDRD) Glucose Lactic Acid Calcium Magnesium 2.6 Total Bilirubin AST ALT Alkaline Phosphatase Troponin I High Sens B-Natriuretic Peptide 124 H Total Protein Albumin Globulin Albumin/Globulin Ratio Lipase Urine Color Urine Clarity Urine pH Ur Specific [place] Urine Protein Urine Glucose (UA) Urine Ketones Urine Occult Blood Urine Nitrite Urine Bilirubin Urine Urobilinogen Ur Leukocyte Esterase Urine RBC Urine WBC Ur Epithelial Cells Ur Squamous Epith Cells Urine Bacteria Ur Microscopic Review Urine Culture Comments 02/18/20 02/18/20 13:45 13:50 WBC RBC Hgb Hct MCV MCH MCHC RDW Plt Count MPV Neut # (Auto) Lymph # (Auto) [place] # (Auto) Eos # (Auto) Baso # (Auto) Absolute Nucleated RBC Nucleated RBC % PT INR Sodium Potassium Chloride Carbon Dioxide Anion Gap BUN Creatinine Estimated GFR (MDRD) Glucose Lactic Acid 1.2 Calcium Magnesium Total Bilirubin AST ALT Alkaline Phosphatase Troponin I High Sens B-Natriuretic Peptide Total Protein Albumin Globulin Albumin/Globulin Ratio Lipase Urine Color YELLOW Urine Clarity CLOUDY Urine pH 5.5 Ur Specific [place] <=1.005 Urine Protein NEGATIVE Urine Glucose (UA) NEGATIVE Urine Ketones NEGATIVE Urine Occult Blood LARGE H Urine Nitrite POSITIVE H Urine Bilirubin NEGATIVE Urine Urobilinogen 0.2 (NORMAL) Ur Leukocyte Esterase MODERATE H Urine RBC 0-5 Urine WBC 11-25 H Ur Epithelial Cells None Seen Ur Squamous Epith Cells NONE SEEN Urine Bacteria Few Ur Microscopic Review INDICATED Urine Culture Comments INDICATED - Rads (name of study) head CT Radiology: Prelim report reviewed (no ICH/no acute finding), See rad report chest xray Radiology: Prelim report reviewed (no infiltrate, but coarse interstitial opacities c/w edema or chronic lung changes. ), See rad report PD MEDICAL DECISION MAKING - ED course Complexity details: reviewed results (UTI with also elevated troponin, but was elevated on prior admission and creatinine is elevated now with dehydration, so likely cause for higher level. Low suspicion for ACS. ), considered differential (has general weakness and less interaction. strong odor urine. Will check UA and labs/markers for infection. Slumped to floor but did not hit head, but is on anticoagulant, so will get head CT. ), d/w patient Departure - Departure Disposition: ED Place in Observation Clinical Impression: General weakness, Acute renal insufficiency, Confusion, Elevated troponin, Anticoagulant long-term use UTI (urinary tract infection) Qualifiers: Urinary tract infection type: site unspecified Hematuria presence: without hematuria Qualified Code(s): N39.0 - Urinary tract infection, site not specified Condition: Stable Record reviewed to determine appropriate education?: Yes Discharge Date/Time: 02/18/20 16:18
[2020-02-18 13:38] LABS: BASOPHILS % (AUTO) 0.2 %; HGB - HEMOGLOBIN 12.9 g/dL (12.0-16.0); LYMPHOCYTES # (AUTO) 0.7 10^3/uL (1.5-3.5); LYMPHOCYTES % (AUTO) 8.6 %; MEAN CORPUSCULAR HEMOGLOBIN 31.4 pg (27.0-31.0); MEAN CORPUSCULAR HGB CONC 31.5 g/dL (32.0-36.0); MEAN CORPUSCULAR VOLUME 99.5 fL (81.0-99.0); MEAN PLATELET VOLUME 10.5 fL (7.9-10.8); MONOCYTES # (AUTO) 0.8 10^3/uL (0.0-1.0); MONOCYTES % (AUTO) 9.6 %; NEUTROPHILS # (AUTO) 6.8 10^3/uL (1.5-6.6); NEUTROPHILS % (AUTO) 81.1 %; PLT - PLATELET COUNT 161 10^3/uL (130-450); RED BLOOD COUNT 4.11 10^6/uL (4.20-5.40); RED CELL DISTRIBUTION WIDTH 14.8 % (12.0-15.0); WHITE BLOOD COUNT 8.4 x10^3/uL (4.8-10.8)
[2020-02-18] MEDS ORDERED: SODIUM CHLORIDE 0.9% 1,000 ML IV STA (13:42)
[2020-02-18 13:50] LABS: BILIRUBIN,URINE NEGATIVE (NEGATIVE); GLUCOSE, URINE (UA) NEGATIVE (NEGATIVE); KETONES,URINE (UA) NEGATIVE (NEGATIVE); LEUKOCYTE ESTERASE, URINE MODERATE (NEGATIVE); NITRITE,URINE POSITIVE (NEGATIVE); OCCULT BLOOD,URINE LARGE (NEGATIVE); PH,URINE 5.5 PH (5.0-7.5); PROTEIN,URINE NEGATIVE (NEGATIVE); UROBILINOGEN,URINE 0.2 (NORMAL) E.U./dL (NORMAL)
[2020-02-18 13:55] LABS: ALBUMIN 3.5 g/dL (3.2-5.5); BILIRUBIN,TOTAL 1.1 mg/dL (0.2-1.0); CALCIUM 8.3 mg/dL (8.5-10.3); CREATININE 1.1 mg/dL (0.4-1.0); TOTAL PROTEIN 6.9 g/dL (6.7-8.2)
[2020-02-18 13:58] LABS: CLARITY,URINE CLOUDY (CLEAR)
[2020-02-18 13:59] LABS: INR 3.5 (0.8-1.2); PT - PROTHROMBIN TIME 37.4 secs (9.9-12.6)
--- NOTE | 2020-02-18 14:01 | XRAY Report ---
Reason: Chest pain Procedure Date: 02/18/2020 Accession Number: [id number] / [id number] Procedure: XR - Chest 1 View X-Ray CPT Code: 23200 Final Report FULL RESULT: EXAM: CHEST RADIOGRAPHY EXAM DATE: 02/18/2020 01:31 PM. CLINICAL HISTORY: Chest pain. COMPARISON: CHEST 1 VIEW 01/11/2020 12:18 PM. TECHNIQUE: 1 view. FINDINGS: Lungs/Pleura: EKG leads overlie the chest. Patient's chin overlies the lung apices. Given the limitations, no large pneumothorax. Mild blunting of the right costophrenic angle. Persistent diffuse coarse interstitial opacities noted throughout both lungs. No new consolidation. Mediastinum: Stable mild cardiac enlargement noted. Atheromatous plaques of the thoracic arch is noted. Other: None. IMPRESSION: 1. Coarse interstitial opacities noted throughout both lungs without focal consolidation. Findings may represent edema or chronic lung changes. 2. Pleural thickening versus small right pleural effusion. No significant left pleural effusion. No pneumothorax. 3. Mild cardiac enlargement. RADIA
[2020-02-18 14:20] LABS: BACTERIA,URINE Few /HPF (None Seen); EPITHELIAL CELLS,UR None Seen /HPF (<= Few); RBC,URINE 0-5 /HPF (0-5); SQUAMOUS EPITHELIAL CELL,UR NONE SEEN (<= Few)
[2020-02-18] MEDS ORDERED: cefTRIAXone 1 GM VIAL IVP STA (14:26)
--- NOTE | 2020-02-18 14:40 | CT Report ---
Reason: altered mentation Procedure Date: 02/18/2020 Accession Number: [id number] / [id number] Procedure: CT - HEAD WO CPT Code: Final Report FULL RESULT: EXAM: CT HEAD EXAM DATE: 02/18/2020 02:20 PM. CLINICAL HISTORY: Altered mental status. Fall couple of days ago. On blood thinners. COMPARISON: HEAD W/O STROKE PROTOCOL 01/11/2020 11:23 AM. TECHNIQUE: Multiaxial CT images were obtained from the foramen magnum to the vertex. Reformats: Sagittal and coronal. IV contrast: None. In accordance with CT protocol optimization, one or more of the following dose reduction techniques were utilized for this exam: automated exposure control, adjustment of mA and/or KV based on patient size, or use of iterative reconstructive technique. FINDINGS: Parenchyma: Similar appearance and distribution of mild patchy periventricular white matter hypoattenuation, compatible with chronic small vessel ischemic change. No intraparenchymal hemorrhage, mass effect, or CT findings of evolving acute/subacute infarct. Dc-white differentiation is distinct. Extraaxial Spaces: Normal for age. No subdural or epidural collections identified. Ventricles: The ventricles and basal cisterns are patent. No hydrocephalus or midline shift. Sinuses: The visualized paranasal sinuses and mastoid air cells are clear. Bones: Hyperostosis frontalis interna. No evidence of fracture or calvarial defect. Other: The visualized superficial soft tissues are unremarkable; no hematoma or edema is evident. Left lens replacement. IMPRESSION: No acute intracranial abnormality. RADIA
--- NOTE | 2020-02-18 16:20 | PHARMACY PROGRESS NOTE ---
- Best Possible Medication History Admit Date and Time: 02/18/20 1531 Processed by: Pharmacy Medication History completed: Yes Patient Interview: Pt unable to participate Secondary Source(s): Written medication list, Caregiver, Pharmacy records, In surance records As the person ultimately responsible for medication therapy, providers are able to order a medication from an existing home medication list in [facility] via the "Reconcile Routine" prior to Confirmation of that medication by support clerk. Such practice is discouraged except when the physician, in their clinical judgment, deems that a medical need exists for a medication without regard to previous use.
[2020-02-18] MEDS ORDERED: DEXTROSE 5%-0.9% NACL 1,000 ML IV SCH (17:00)
[2020-02-18] MEDS ORDERED: SODIUM CHLORIDE FLUSH 0.9% 10 ML SYRINGE IVP PRN (19:53)
[2020-02-18] MEDS ORDERED: ONDANSETRON 4 MG/2 ML VIAL IVP PRN (19:53)
--- NOTE | 2020-02-18 20:20 | HISTORY & PHYSICAL EXAMINATION ---
Chief Complaint - Chief Complaint Chief Complaint: lethargic, weakness History of Present Illness - Admitted From Admitted From:: [facility] ED - History Obtained From Records Reviewed: yes History obtained from: ED physician Exam Limitations: developemental delay - History of Present Illness HPI Comment/Other: The HPI was obtained from the HPI of the ED physicians H&P because the patient is developmentally delayed and not able to provide a reliable history. It is reported that the patient has been having several days of progressive weakness, decreased oral intake and has appeared a bit confused. She presented from a family [facility]. Her caregiver reported noting otherwise urine. Work-up in the ED included a UA which indicated a UTI. She was also found to have a troponin of 289. Chest x-ray suggested pulmonary edema. Mild cardiac enlargement was also noted. Her only complaint is of right knee pain which has been chronic. She denies chest pain, dyspnea, abdominal pain, nausea, vomiting or fever. History - Past Medical History Cardiovascular: reports: None, Deep vein thrombosis, Pulmonary embolism Respiratory: reports: None Neuro: reports: Dementia, Other Endocrine/Autoimmune: reports: HyPOthyroidism GI: reports: Chronic constipation : reports: None Psych: reports: Anxiety, Schizophrenia Musculoskeletal: reports: Osteoarthritis Derm: reports: Psoriasis MRSA Hx?: No - Past Surgical History HEENT: reports: Cataracts - Family & Social History Family History Comment/Other: History cannot be obtained because patient is deve lopmentally delayed and unable to provide a reliable history. Living arrangement: senior living - POLST Patient has POLST: No POLST Status: Full Code Meds/Allgy - Home Medications Home Medications: Ambulatory Orders Medication Instructions Recorded Confirmed Levothyroxine [Synthroid] 75 mcg PO QDAC 07/22/19 02/18/20 Simvastatin [Zocor] 20 mg PO QPM 07/22/19 02/18/20 Torsemide 40 mg PO BID 07/22/19 02/18/20 Potassium Chloride 10 meq PO BIDWM 01/11/20 02/18/20 Acetaminophen 500 mg PO TID PRN 02/18/20 02/18/20 Ascorbic Acid 500 mg PO DAILY 02/18/20 02/18/20 Docusate Sodium 250Mg Capsule 250 mg PO DAILY 02/18/20 02/18/20 [Colace 250Mg Capsule] Trazodone HCl 200 mg PO QPM 02/18/20 02/18/20 Warfarin Sodium 2.5 mg PO MOWEFR@1400 02/18/20 02/18/20 Warfarin Sodium 5 mg PO SUTUTHSA@1400 02/18/20 02/18/20 risperiDONE [Risperdal] 3 mg PO BID 02/18/20 02/18/20 - Allergies Allergies/Adverse Reactions: Allergies Allergy/AdvReac Type Severity Reaction Status Date / Time Penicillins Allergy Unknown Verified 02/18/20 12:47 Review of Systems - Constitutional Constitutional: reports: Weakness. denies: Fever - Eyes Eyes: denies: Pain - Ears, Nose & Throat Ears, Nose & Throat: denies: Sore throat - Cardiovascular Cariovascular: reports: Edema. denies: Irregular heart rate, Chest pain - Respiratory Respiratory: denies: Cough, Wheezing, SOB at rest - Gastrointestinal Gastrointestinal: reports: Nausea, Vomiting. denies: Abdominal pain, Abdominal distention, Diarrhea - Genitourinary Genitourinary: reports: Other (strong urine odor) - Musculoskeletal Musculoskeletal: denies: Muscle pain, Back pain, Muscle aches - Integumentary Integumentary: denies: Rash, Pruritis, Lesions, Dryness - Neurological Neurological: reports: General weakness. denies: Focal weakness, Headache, Dizziness - Psychiatric Psychiatric: denies: Depression, Anxiety - Endocrine Endocrine: denies: Polyuria, Polydypsia - Hematologic/Lymphatic Hematologic/Lymphatic: denies: Anemia, Bruising, Petechiae Prior Level of Functionality: Patient resides at a chcf. She gets around with the help of a walker and some assistance. She needs some assistance with grooming as well. Exam - Vital Signs Vital Signs: Vital Signs x48h Temp Pulse Pulse Resp BP BP Pulse Ox 02/18/20 16:41 37.2 C 99 20 160/75 H 97 02/18/20 15:00 79 18 123/65 96 02/18/20 14:00 73 17 115/73 95 02/18/20 12:48 37.4 C 74 20 96/46 L 95 - Physical Exam General Appearance: positive: No acute distress, Alert Eyes Bilateral: positive: PERRL, EOMI ENT: positive: No signs of dehydration Neck: positive: No JVD, Trachea midline Respiratory: positive: Chest non-tender, No respiratory distress, Breath sounds nml. negative: Wheezes, Rales, Rhonchi Cardiovascular: positive: Regular rate & rhythm Abdomen: positive: Non-tender, No organomegaly, Nml bowel sounds, No distention. negative: Guarding, Rebound Back: positive: Nml inspection Skin: positive: Color nml, No rash, Warm, Dry Extremities: positive: Pedal edema (2+ pitting) Neurologic/Psychiatric: positive: Mood/affect nml, Other (awake, alert, oriented to self and place) Conclusion/Plan - Problem List (1) UTI (urinary tract infection) Conclusion/Plan: Urine and Blood cultures obtained Patient started on Rocephin Qualifiers: Urinary tract infection type: site unspecified Hematuria presence: without hematuria Qualified Code(s): N39.0 - Urinary tract infection, site not specified (2) NSTEMI (non-ST elevated myocardial infarction) Conclusion/Plan: Will trend Troponin until it peaks Patient's INR is 3.3 on coumadin. Ejection fraction on a 2D echo done on January 13, 2020 showed an EF of 65 to 70% with normal left ventricular size and normal left ventricular wall thickness. Diastolic function was indeterminate. There was no regional wall abnormality seen Will repeat echo when available during the week (3) Acute renal insufficiency Conclusion/Plan: Likely 2/2 UTI. Treating infection Will monitor renal function. Anticipating improvement (4) History of DVT (deep vein thrombosis) Conclusion/Plan: On coumadin. INR 3.5. Will hold coumadin for now (5) Hypothyroidism Conclusion/Plan: On synthroid 75 mcg qAC (6) Schizophrenia Conclusion/Plan: On risperidone (7) Hyperlipidemia Conclusion/Plan: On simvastatin (8) Pulmonary edema Conclusion/Plan: This was noted on chest x-ray. Suspect CHF in relation to NSTEMI Patient is on torsemide 40 mg twice daily. Will continue. BNP was 124. Patient has 2+ pitting edema of the lower extremities bilaterally. Ejection fraction on a 2D echo done on January 13, 2020 showed an EF of 65 to 70% with normal left ventricular size and normal left ventricular wall thickness. Diastolic function was indeterminate. There was no regional wall abnormality seen Will repeat echo during the weak when available - Lab Results Fish Bones: 02/19/20 04:20 02/19/20 04:20 Core Measures - Anticipated LOS I expect patient to be DC'd or transferred within 96 hours.: Yes - DVT/VTE - Prophylaxis VTE/DVT Device ordered at admit?: Yes VTE/DVT Prophylaxis med ordered at admit?: Yes
[2020-02-18] MEDS ORDERED: traZODone 50 MG TABLET PO SCH (21:00)
[2020-02-18] MEDS ORDERED: HEPARIN 5,000 UNIT/ML VIAL SUBQ SCH (21:00)
[2020-02-18] MEDS: ACETAMINOPHEN 325 MG TABLET PO PRN (21:13)
[2020-02-18] MEDS ORDERED: ATORVASTATIN 10 MG TABLET PO SCH (22:00)
[2020-02-18] MEDS: TORSEMIDE 20 MG TABLET PO SCH (22:15)
[2020-02-18] MEDS: risperiDONE 1 MG TABLET PO SCH (22:15)
[2020-02-19] MEDS: ACETAMINOPHEN 325 MG TABLET PO PRN ×4 (04:17→17:57)
[2020-02-19] MEDS: SODIUM CHLORIDE FLUSH 0.9% 10 ML SYRINGE IVP SCH ×3 (04:20→15:36)
[2020-02-19 05:34] LABS: BASOPHILS % (AUTO) 0.2 %; EOSINOPHILS % (AUTO) 0.2 %; HGB - HEMOGLOBIN 12.7 g/dL (12.0-16.0); LYMPHOCYTES # (AUTO) 1.1 10^3/uL (1.5-3.5); LYMPHOCYTES % (AUTO) 15.8 %; MEAN CORPUSCULAR HEMOGLOBIN 30.7 pg (27.0-31.0); MEAN CORPUSCULAR HGB CONC 30.8 g/dL (32.0-36.0); MEAN CORPUSCULAR VOLUME 99.5 fL (81.0-99.0); MEAN PLATELET VOLUME 11.7 fL (7.9-10.8); MONOCYTES # (AUTO) 0.6 10^3/uL (0.0-1.0); MONOCYTES % (AUTO) 9.5 %; NEUTROPHILS # (AUTO) 4.9 10^3/uL (1.5-6.6); PLT - PLATELET COUNT 152 10^3/uL (130-450); RED BLOOD COUNT 4.14 10^6/uL (4.20-5.40); RED CELL DISTRIBUTION WIDTH 15.2 % (12.0-15.0); WHITE BLOOD COUNT 6.6 x10^3/uL (4.8-10.8)
[2020-02-19 05:42] LABS: INR 3.3 (0.8-1.2); PT - PROTHROMBIN TIME 35.5 secs (9.9-12.6)
[2020-02-19 06:12] LABS: CALCIUM 8.2 mg/dL (8.5-10.3); CREATININE 0.9 mg/dL (0.4-1.0)
[2020-02-19] MEDS: LEVOTHYROXINE 75 MCG TABLET PO SCH (06:50)
[2020-02-19] MEDS ORDERED: POTASSIUM CHLORIDE 20 MEQ TABLET PO SCH (07:16)
[2020-02-19] MEDS: DOCUSATE SODIUM 250 MG CAPSULE PO SCH (08:41)
[2020-02-19] MEDS: polyethylene glycoL 3350 17 GM PACKET PO SCH (08:41)
[2020-02-19] MEDS: POTASSIUM CHLORIDE 10 MEQ CAPSULE PO SCH ×2 (08:41→16:15)
[2020-02-19] MEDS: risperiDONE 1 MG TABLET PO SCH ×2 (08:41→20:27)
[2020-02-19] MEDS: cefTRIAXone 1 GM in SODIUM CHLORIDE 0.9% MINIBAG 100 ML IV SCH (08:41)
[2020-02-19] MEDS: TORSEMIDE 20 MG TABLET PO SCH (08:45)
--- NOTE | 2020-02-19 12:07 | XRAY Report ---
Reason: R knee pain after fall at home week ago Procedure Date: 02/19/2020 Accession Number: [id number] / [id number] Procedure: XR - Knee 2 View RT CPT Code: Final Report FULL RESULT: EXAM: RIGHT KNEE RADIOGRAPHY EXAM DATE: 02/19/2020 10:32 AM. CLINICAL HISTORY: R knee pain after fall at home 1 week ago. Lateral right knee swelling/bruising/pain. COMPARISON: KNEE 4 VIEW RT 07/22/2019 8:12 PM. TECHNIQUE: 2 views. FINDINGS: Bones: Diffusely demineralized. No displaced fractures or bone lesions. Joints: No subluxation or dislocation. There are mild degenerative changes of the medial and lateral joint spaces. There are advanced degenerative changes of the patellofemoral compartment. No joint effusion. Soft Tissues: Diffuse soft tissue swelling appears similar to the prior exam on 07/22/2019. IMPRESSION: 1. No fracture or other acute osseous abnormality identified. Bones are diffusely demineralized. 2. Degenerative osteoarthritis, most advanced at the patellofemoral compartment, similar to prior. RADIA
--- NOTE | 2020-02-19 12:16 | PROVIDER PROGRESS NOTE ---
Assessment/Plan - Problem List (1) NSTEMI (non-ST elevated myocardial infarction) Assessment/Plan: Admission troponin of 200 increased to 300 then 400s and is now reverting down into the 300s. The EKG does show flat T waves in many leads. Start B-volodymyr, daily aspirin and change statin to Atorvastatin 80 mg. Since she is on Coumadin (with a super therapeutic INR), no heparin or Lovenox were ordered for the NSTEMI. Await an Echo for LVEF, before starting MERLINE. Continue telemetry. I will try to reach a DPOA regarding confirming her CODE BLUE status being Full Code, and that only medical management and no transfer for cor angio will be done. Will request a Social Work consult for this. (2) Pulmonary edema Assessment/Plan: The admission chest x-ray was read as having interstitial edema. The patient was minimally symptomatic, able to lie flat in bed without desaturating. Continue with her loop diuretic, which she was on twice daily but will only give daily here because of low blood pressures Watch BM P and magnesium daily (3) E. coli UTI Assessment/Plan: Continue ceftriaxone. Await sensitivities of the culture. No blood cx was apparently sent. (4) Altered mental status Qualifiers: Qualified Code(s): R40.2431 - Jh coma scale score 3-8, in the field [EMT or ambulance] Assessment/Plan: This may have been from a brewing infection since she has a UTI but also could be from the acute NSTEMI and she may be unable to verbalize some discomfort that she has in the chest. Treat infection with IV antibiotics, await cultures. Medical management for the NSTEMI is planned. (5) Schizophrenia Assessment/Plan: Continue Risperidone and Trazadone. (6) Hypokalemia Assessment/Plan: Likely from loop diuretic use. Will replace. Watch BMP daily (7) Anticoagulant long-term use Assessment/Plan: She is on this for history of DVTs and PEs. Since she is on Coumadin (with a super therapeutic INR, 3.4 yesterday, 3.3 today), no Heparin or Lovenox were ordered for the NSTEMI. Follow INR daily. Resume Coumadin when INR is between 2 and 3. (8) Developmental delay, mild Assessment/Plan: As per Hx. She lives in a Sn[facility]. - Current Meds Current Meds: Current Medications Generic Name Dose Route Start Last Admin Trade Name Freq PRN Reason Stop Dose Admin Acetaminophen 650 mg 02/18/20 19:53 02/19/20 08:46 Tylenol PO 650 mg Q4HR PRN Administration Pain 1 to 4 Atorvastatin Calcium 10 mg 02/18/20 22:00 02/18/20 22:16 Lipitor PO 10 mg QPM JULIETA Administration Docusate Sodium 250 - 500 mg 02/19/20 09:00 02/19/20 08:41 Colace 250mg Capsule PO 250 mg DAILY JULIETA Administration Ceftriaxone Sodium 1 gm/ 100 mls @ 200 mls/hr 02/19/20 09:00 02/19/20 09:31 Sodium Chloride IV Infused DAILY JULIETA Infusion Levothyroxine Sodium 75 mcg 02/19/20 07:00 02/19/20 06:50 Synthroid PO 75 mcg QDAC JULIETA Administration Ondansetron HCl 4 mg 02/18/20 19:53 02/18/20 20:37 Zofran Inj IVP 4 mg Q6HR PRN Administration Nausea / Vomiting Polyethylene Glycol 17 gm 02/19/20 09:00 02/19/20 08:41 Miralax PO 17 gm DAILY JULIETA Administration Potassium Chloride 10 meq 02/19/20 08:00 02/19/20 08:41 Micro-K PO 10 meq BIDWM JULIETA Administration Risperidone 3 mg 02/18/20 21:00 02/19/20 08:41 Risperdal PO 3 mg BID JULIETA Administration Sodium Chloride 10 ml 02/19/20 01:00 02/19/20 08:42 Normal Saline Flush 0.9% IVP 10 ml 0100,0900,1700 JULIETA Administration Torsemide 40 mg 02/18/20 21:00 02/19/20 08:45 Torsemide PO 40 mg BID JULIETA Administration - Lab Result Fish Bone Diagrams: 02/19/20 04:20 02/19/20 04:20 - Additional Planning My Orders: My Active Orders 02/18/20 16:34 Vital Signs [RC] Q4HR 02/18/20 16:36 Code Status [OTHERS] Routine 02/19/20 Evaluate and Treat OT [OT] Routine Evaluate and Treat PT [PT] Routine 02/19/20 09:00 Docusate Sodium 250Mg Capsule [Colace 250Mg Capsule] 250 - 500 mg PO DAILY polyethylene glycoL 3350 [Miralax] 17 gm PO DAILY 02/21/20 08:00 Echo Transthoracic Complete [ECHO] Routine Subjective - Subjective Patient Reports: Other (The patient is sitting up in her recliner chair, sipping from a water pitcher and answeres "Yes" when asked if she feels fine, and she needs no help) Objective Vital Signs: Vital Signs - 24 hr 02/18/20 02/18/20 02/18/20 12:48 14:00 15:00 Temperature 37.4 C Heart Rate 74 73 79 Heart Rate [ Brachial] Respiratory 20 17 18 Rate Blood Pressure 96/46 L 115/73 123/65 Blood Pressure [Right Brachial artery] O2 Saturation 95 95 96 02/18/20 02/18/20 02/18/20 16:41 21:00 21:05 Temperature 37.2 C 38.0 C H Heart Rate Heart Rate [ 99 80 Brachial] Respiratory 20 18 18 Rate Blood Pressure Blood Pressure 160/75 H 116/52 L [Right Brachial artery] O2 Saturation 97 91 L 92 02/18/20 02/18/20 02/18/20 22:25 22:34 22:42 Temperature 37.6 C H Heart Rate Heart Rate [ Brachial] Respiratory 18 16 Rate Blood Pressure Blood Pressure [Right Brachial artery] O2 Saturation 89 L 96 02/19/20 02/19/20 02/19/20 00:16 04:24 07:46 Temperature 37.7 C H 36.9 C 37.5 C Heart Rate Heart Rate [ 76 80 73 Brachial] Respiratory 20 96 H 16 Rate Blood Pressure Blood Pressure 101/50 L 135/51 H 108/33 L [Right Brachial artery] O2 Saturation 97 1 L 96 02/19/20 07:54 Temperature Heart Rate Heart Rate [ Brachial] Respiratory Rate Blood Pressure Blood Pressure 95/45 L [Right Brachial artery] O2 Saturation Oxygen O2 Source Nasal cannula I&O (Last 24 Hrs): Intake and Output Totals x24h 02/17/20 02/18/20 02/19/20 23:59 23:59 23:59 Intake Total 1615 580 Output Total 600 950 Balance 1015 -370 General: Alert HEENT: Mucous membr. moist/pink, Other (Unequal gaze) Neck: Supple Neuro: Disoriented Cardiovascular: Regular rate Respiratory: No respiratory distress Abdomen: Soft Extremities: No edema - Results Results: Laboratory Results WBC 6.6 x10^3/uL (4.8-10.8) 02/19/20 04:20 RBC 4.14 10^6/uL (4.20-5.40) L 02/19/20 04:20 Hgb 12.7 g/dL (12.0-16.0) 02/19/20 04:20 Hct 41.2 % (37.0-47.0) 02/19/20 04:20 MCV 99.5 fL (81.0-99.0) H 02/19/20 04:20 MCH 30.7 pg (27.0-31.0) 02/19/20 04:20 MCHC 30.8 g/dL (32.0-36.0) L 02/19/20 04:20 RDW 15.2 % (12.0-15.0) H 02/19/20 04:20 Plt Count 152 10^3/uL (130-450) 02/19/20 04:20 MPV 11.7 fL (7.9-10.8) H 02/19/20 04:20 Neut # (Auto) 4.9 10^3/uL (1.5-6.6) 02/19/20 04:20 Lymph # (Auto) 1.1 10^3/uL (1.5-3.5) L 02/19/20 04:20 [place] # (Auto) 0.6 10^3/uL (0.0-1.0) 02/19/20 04:20 Eos # (Auto) 0.0 10^3/uL (0.0-0.7) 02/19/20 04:20 Baso # (Auto) 0.0 10^3/uL (0.0-0.1) 02/19/20 04:20 Absolute Nucleated RBC 0.00 x10^3/uL 02/19/20 04:20 Nucleated RBC % 0.0 /100WBC 02/19/20 04:20 PT 35.5 secs (9.9-12.6) H 02/19/20 04:20 INR 3.3 (0.8-1.2) H 02/19/20 04:20 Sodium 144 mmol/L (135-145) 02/19/20 04:20 Potassium 3.4 mmol/L (3.5-5.0) L 02/19/20 04:20 Chloride 104 mmol/L (101-111) 02/19/20 04:20 Carbon Dioxide 31 mmol/L (21-32) 02/19/20 04:20 Anion Gap 9.0 (6-13) 02/19/20 04:20 BUN 17 mg/dL (6-20) 02/19/20 04:20 Creatinine 0.9 mg/dL (0.4-1.0) 02/19/20 04:20 Estimated GFR (MDRD) 61 (>89) L 02/19/20 04:20 Glucose 104 mg/dL (70-100) H 02/19/20 04:20 Lactic Acid 1.2 mmol/L (0.5-2.2) 02/18/20 13:50 Calcium 8.2 mg/dL (8.5-10.3) L 02/19/20 04:20 Magnesium 2.6 mg/dL (1.7-2.8) 02/18/20 13:12 Total Bilirubin 1.1 mg/dL (0.2-1.0) H 02/18/20 13:12 AST 50 IU/L (10-42) H 02/18/20 13:12 ALT 18 IU/L (10-60) 02/18/20 13:12 Alkaline Phosphatase 62 IU/L (42-121) 02/18/20 13:12 Troponin I High Sens 393.3 ng/L (2.3-14.8) H* 02/19/20 11:08 B-Natriuretic Peptide 124 pg/mL (5-100) H 02/18/20 13:12 Total Protein 6.9 g/dL (6.7-8.2) 02/18/20 13:12 Albumin 3.5 g/dL (3.2-5.5) 02/18/20 13:12 Globulin 3.4 g/dL (2.1-4.2) 02/18/20 13:12 Albumin/Globulin Ratio 1.0 (1.0-2.2) 02/18/20 13:12 Lipase 36 U/L (22-51) 02/18/20 13:12 Urine Color YELLOW 02/18/20 13:45 Urine Clarity CLOUDY (CLEAR) 02/18/20 13:45 Urine pH 5.5 PH (5.0-7.5) 02/18/20 13:45 Ur Specific [place] <=1.005 (1.002-1.030) 02/18/20 13:45 Urine Protein NEGATIVE mg/dL (NEGATIVE) 02/18/20 13:45 Urine Glucose (UA) NEGATIVE mg/dL (NEGATIVE) 02/18/20 13:45 Urine Ketones NEGATIVE mg/dL (NEGATIVE) 02/18/20 13:45 Urine Occult Blood LARGE (NEGATIVE) H 02/18/20 13:45 Urine Nitrite POSITIVE (NEGATIVE) H 02/18/20 13:45 Urine Bilirubin NEGATIVE (NEGATIVE) 02/18/20 13:45 Urine Urobilinogen 0.2 (NORMAL) E.U./dL (NORMAL) 02/18/20 13:45 Ur Leukocyte Esterase MODERATE (NEGATIVE) H 02/18/20 13:45 Urine RBC 0-5 /HPF (0-5) 02/18/20 13:45 Urine WBC 11-25 /HPF (0-5) H 02/18/20 13:45 Ur Epithelial Cells None Seen /HPF (<= Few) 02/18/20 13:45 Ur Squamous Epith Cells NONE SEEN (<= Few) 02/18/20 13:45 Urine Bacteria Few /HPF (None Seen) 02/18/20 13:45 Ur Microscopic Review INDICATED 02/18/20 13:45 Urine Culture Comments INDICATED 02/18/20 13:45 - Procedures Procedures: Procedures RESPIRATORY VENTILATION, LESS THAN 24 CONSECUTIVE HOURS (01/11/20)
[2020-02-19] MEDS: carvediloL 3.125 MG TABLET PO SCH ×2 (13:14→20:27)
[2020-02-19] MEDS: ASPIRIN CHEW 81 MG TABLET PO SCH (13:14)
[2020-02-19] MEDS: ATORVASTATIN 40 MG TABLET PO SCH (20:27)
[2020-02-20] MEDS: SODIUM CHLORIDE FLUSH 0.9% 10 ML SYRINGE IVP SCH ×3 (00:51→16:35)
[2020-02-20 06:07] LABS: BASOPHILS % (AUTO) 0.3 %; EOSINOPHILS # (AUTO) 0.1 10^3/uL (0.0-0.7); EOSINOPHILS % (AUTO) 1.3 %; HGB - HEMOGLOBIN 11.5 g/dL (12.0-16.0); LYMPHOCYTES # (AUTO) 0.8 10^3/uL (1.5-3.5); LYMPHOCYTES % (AUTO) 21.2 %; MEAN CORPUSCULAR HEMOGLOBIN 30.8 pg (27.0-31.0); MEAN CORPUSCULAR HGB CONC 30.6 g/dL (32.0-36.0); MEAN CORPUSCULAR VOLUME 100.8 fL (81.0-99.0); MEAN PLATELET VOLUME 10.2 fL (7.9-10.8); MONOCYTES # (AUTO) 0.6 10^3/uL (0.0-1.0); MONOCYTES % (AUTO) 15.9 %; NEUTROPHILS # (AUTO) 2.4 10^3/uL (1.5-6.6); NEUTROPHILS % (AUTO) 61.3 %; PLT - PLATELET COUNT 129 10^3/uL (130-450); RED BLOOD COUNT 3.73 10^6/uL (4.20-5.40); RED CELL DISTRIBUTION WIDTH 14.7 % (12.0-15.0)
[2020-02-20 06:11] LABS: INR 2.2 (0.8-1.2); PT - PROTHROMBIN TIME 23.9 secs (9.9-12.6)
[2020-02-20 06:18] LABS: CALCIUM 7.8 mg/dL (8.5-10.3); CREATININE 0.8 mg/dL (0.4-1.0); MAGNESIUM 2.5 mg/dL (1.7-2.8)
[2020-02-20] MEDS: LEVOTHYROXINE 75 MCG TABLET PO SCH (06:49)
[2020-02-20] MEDS: ASPIRIN CHEW 81 MG TABLET PO SCH (08:42)
[2020-02-20] MEDS: carvediloL 3.125 MG TABLET PO SCH ×2 (08:42→20:21)
[2020-02-20] MEDS: POTASSIUM CHLORIDE 10 MEQ CAPSULE PO SCH ×2 (08:42→16:35)
[2020-02-20] MEDS: risperiDONE 1 MG TABLET PO SCH ×2 (08:42→20:21)
[2020-02-20] MEDS: polyethylene glycoL 3350 17 GM PACKET PO SCH (08:43)
[2020-02-20] MEDS: cefTRIAXone 1 GM in SODIUM CHLORIDE 0.9% MINIBAG 100 ML IV SCH (08:43)
[2020-02-20] MEDS: TORSEMIDE 20 MG TABLET PO SCH (08:43)
[2020-02-20] MEDS: SENNA 8.6 MG TABLET PO SCH (08:43)
[2020-02-20] MEDS: DOCUSATE SODIUM 250 MG CAPSULE PO SCH (08:43)
--- NOTE | 2020-02-20 12:18 | PROVIDER PROGRESS NOTE ---
Assessment/Plan - Problem List (1) NSTEMI (non-ST elevated myocardial infarction) Assessment/Plan: A troponin was checked in the ER at admission because of her overall change in condition. The result was 200. The EKG did show inferolateral T wave flattening. Her troponin peaked at 400's. The patient probably could not vocalize any chest symptom complaints because of her being developmentally delayed. She is now on new beta-volodymyr, is on daily aspirin, statin at high-dose, and Coumadin continues therefore she did not receive heparin or Lovenox. I have asked Social Work to help determine if she is a candidate for intervention such as coronary angiography. There apparently was no DPOA paperwork at the assisted where she lives at. Her caregiver at the assisted, Henny, has not returned my call today (today is a holiday, ). We will plan on medical management. An Echo is not available until tomorrow, it was ordered to recheck LVEF. She is walking with PT, she would not qualify for cardiac rehab because of her developmental delay. (2) Pulmonary edema Assessment/Plan: Patient had interstitial edema seen on admission chest x-ray, despite her having no appearance of being orthopneic or dyspneic. She did not get IV hydration, therefore but was kept on her oral diuretics. The dose was torsemide twice daily. Yesterday this was decreased to just daily because she started to develop contraction alkalosis. The Echo is still pending. If EF is less than 40%, an MERLINE-I or ARB should be started. (3) E. coli UTI Assessment/Plan: The initial impression was that her altered mental status was from an infection. Her urine has grown out E. coli. She has had 2 days of IV antibiotics, and will transition to oral antibiotics depending on sensitivities from that urine culture. Blood cultures are negative to date. (4) Altered mental status Qualifiers: Qualified Code(s): R40.2431 - Jh coma scale score 3-8, in the field [EMT or ambulance] Assessment/Plan: At admission, the assisted reported that she had several days of weakness and more confusion. This may have been from her infection but also the acute [place]. Since her second day here, she is alert, communicative, able to feed herself, can walk. It would be appropriate to have her caregiver, Henny, evaluate her here, to see if she is back to her baseline mental status. I requested that SW contact the group for this. (5) Schizophrenia Assessment/Plan: Stable on all her psychiatric medications continued while she is here (6) Hypokalemia Assessment/Plan: Related to loop diuretic use. Replaced. 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 She presented with a supra therapeutic INR, therefore Coumadin has been on hold for several days. Daily INR being checked, and will resume Coumadin when INR is between 2 and 3. (8) Developmental delay, mild Assessment/Plan: The report that was received from the assisted is that she has the mentation of a 12-year-old. She can walk independently but needs to be led by the hand, at the assisted. She does other ADLs pretty independently, from what we see here. - Current Meds Current Meds: Current Medications Generic Name Dose Route Start Last Admin Trade Name Freq PRN Reason Stop Dose Admin Acetaminophen 650 mg 02/18/20 19:53 02/19/20 17:57 Tylenol PO 650 mg Q4HR PRN Administration Pain 1 to 4 Aspirin 81 mg 02/19/20 13:00 02/20/20 08:42 St Kal Aspirin PO 81 mg DAILY JULIETA Administration Atorvastatin Calcium 80 mg 02/19/20 21:00 02/19/20 20:27 Lipitor PO 80 mg QPM JULIETA Administration Carvedilol 3.125 mg 02/19/20 13:00 02/20/20 08:42 Coreg PO 3.125 mg BID JULIETA Administration Docusate Sodium 250 - 500 mg 02/19/20 09:00 02/20/20 08:43 Colace 250mg Capsule PO 250 mg DAILY JULIETA Administration Ceftriaxone Sodium 1 gm/ 100 mls @ 200 mls/hr 02/19/20 09:00 02/20/20 09:17 Sodium Chloride IV Infused DAILY JULIETA Infusion Levothyroxine Sodium 75 mcg 02/19/20 07:00 02/20/20 06:49 Synthroid PO 75 mcg QDAC JULIETA Administration Ondansetron HCl 4 mg 02/18/20 19:53 02/18/20 20:37 Zofran Inj IVP 4 mg Q6HR PRN Administration Nausea / Vomiting Polyethylene Glycol 17 gm 02/19/20 09:00 02/20/20 08:43 Miralax PO 17 gm DAILY JULIETA Administration Potassium Chloride 10 meq 02/19/20 08:00 02/20/20 08:42 Micro-K PO 10 meq BIDWM JULIETA Administration Risperidone 3 mg 02/18/20 21:00 02/20/20 08:42 Risperdal PO 3 mg BID JULIETA Administration Senna 8.6 - 17.2 mg 02/20/20 09:00 02/20/20 08:43 Senokot PO 8.6 mg DAILY JULIETA Administration Sodium Chloride 10 ml 02/19/20 01:00 02/20/20 08:44 Normal Saline Flush 0.9% IVP 10 ml 0100,0900,1700 JULIETA Administration Torsemide 40 mg 02/20/20 09:00 02/20/20 08:43 Torsemide PO 40 mg DAILY JULIETA Administration - Lab Result Fish Bone Diagrams: 02/20/20 05:42 02/20/20 05:42 - Additional Planning My Orders: My Active Orders 02/19/20 13:00 Aspirin Chewable [St Kal Aspirin] 81 mg PO DAILY carvediloL [Coreg] 3.125 mg PO BID 02/19/20 21:00 Atorvastatin [Lipitor] 80 mg PO QPM 02/20/20 09:00 Senna [Senokot] 8.6 - 17.2 mg PO DAILY Torsemide 40 mg PO DAILY 02/21/20 08:00 Echo Transthoracic Complete [ECHO] Routine Subjective - Subjective Patient Reports: Other (The patient is sitting up in bed and smiling, answers with short sentences and appears in no distress.) Objective Vital Signs: Vital Signs - 24 hr 02/19/20 02/19/20 02/19/20 13:00 15:46 15:56 Temperature 37.5 C 36.9 C Heart Rate [ 66 68 68 Brachial] Respiratory 18 19 Rate Blood Pressure 116/57 L 103/46 L [Right Brachial artery] O2 Saturation 95 94 95 02/19/20 02/19/20 02/19/20 19:40 20:53 23:37 Temperature 36.7 C 37.4 C 37.6 C H Heart Rate [ 67 69 Brachial] Respiratory 18 20 Rate Blood Pressure 108/56 L 103/56 L [Right Brachial artery] O2 Saturation 93 92 02/20/20 02/20/20 04:55 07:45 Temperature 37.0 C 37.6 C H Heart Rate [ 75 70 Brachial] Respiratory 20 18 Rate Blood Pressure 136/61 H 109/60 [Right Brachial artery] O2 Saturation 94 92 Oxygen O2 Source Room air I&O (Last 24 Hrs): Intake and Output Totals x24h 02/18/20 02/19/20 02/20/20 23:59 23:59 23:59 Intake Total 1615 1240 820 Output Total 600 2000 1200 Balance 1015 760 -380 General: Alert HEENT: Mucous membr. moist/pink, Other (Unequal gaze) Neck: Supple Neuro: Alert, Disoriented, Non Focal Cardiovascular: Regular rate Respiratory: No respiratory distress Abdomen: Soft Extremities: No edema - Results Results: Laboratory Results WBC 4.0 x10^3/uL (4.8-10.8) L 02/20/20 05:42 RBC 3.73 10^6/uL (4.20-5.40) L 02/20/20 05:42 Hgb 11.5 g/dL (12.0-16.0) L 02/20/20 05:42 Hct 37.6 % (37.0-47.0) 02/20/20 05:42 MCV 100.8 fL (81.0-99.0) H 02/20/20 05:42 MCH 30.8 pg (27.0-31.0) 02/20/20 05:42 MCHC 30.6 g/dL (32.0-36.0) L 02/20/20 05:42 RDW 14.7 % (12.0-15.0) 02/20/20 05:42 Plt Count 129 10^3/uL (130-450) L 02/20/20 05:42 MPV 10.2 fL (7.9-10.8) 02/20/20 05:42 Neut # (Auto) 2.4 10^3/uL (1.5-6.6) 02/20/20 05:42 Lymph # (Auto) 0.8 10^3/uL (1.5-3.5) L 02/20/20 05:42 [place] # (Auto) 0.6 10^3/uL (0.0-1.0) 02/20/20 05:42 Eos # (Auto) 0.1 10^3/uL (0.0-0.7) 02/20/20 05:42 Baso # (Auto) 0.0 10^3/uL (0.0-0.1) 02/20/20 05:42 Absolute Nucleated RBC 0.00 x10^3/uL 02/20/20 05:42 Nucleated RBC % 0.0 /100WBC 02/20/20 05:42 PT 23.9 secs (9.9-12.6) H 02/20/20 05:42 INR 2.2 (0.8-1.2) H 02/20/20 05:42 Sodium 140 mmol/L (135-145) 02/20/20 05:42 Potassium 3.7 mmol/L (3.5-5.0) 02/20/20 05:42 Chloride 103 mmol/L (101-111) 02/20/20 05:42 Carbon Dioxide 31 mmol/L (21-32) 02/20/20 05:42 Anion Gap 6.0 (6-13) 02/20/20 05:42 BUN 15 mg/dL (6-20) 02/20/20 05:42 Creatinine 0.8 mg/dL (0.4-1.0) 02/20/20 05:42 Estimated GFR (MDRD) 70 (>89) L 02/20/20 05:42 Glucose 103 mg/dL (70-100) H 02/20/20 05:42 Lactic Acid 1.2 mmol/L (0.5-2.2) 02/18/20 13:50 Calcium 7.8 mg/dL (8.5-10.3) L 02/20/20 05:42 Magnesium 2.5 mg/dL (1.7-2.8) 02/20/20 05:42 Total Bilirubin 1.1 mg/dL (0.2-1.0) H 02/18/20 13:12 AST 50 IU/L (10-42) H 02/18/20 13:12 ALT 18 IU/L (10-60) 02/18/20 13:12 Alkaline Phosphatase 62 IU/L (42-121) 02/18/20 13:12 Troponin I High Sens 393.3 ng/L (2.3-14.8) H* 02/19/20 11:08 B-Natriuretic Peptide 124 pg/mL (5-100) H 02/18/20 13:12 Total Protein 6.9 g/dL (6.7-8.2) 02/18/20 13:12 Albumin 3.5 g/dL (3.2-5.5) 02/18/20 13:12 Globulin 3.4 g/dL (2.1-4.2) 02/18/20 13:12 Albumin/Globulin Ratio 1.0 (1.0-2.2) 02/18/20 13:12 Lipase 36 U/L (22-51) 02/18/20 13:12 Urine Color YELLOW 02/18/20 13:45 Urine Clarity CLOUDY (CLEAR) 02/18/20 13:45 Urine pH 5.5 PH (5.0-7.5) 02/18/20 13:45 Ur Specific [place] <=1.005 (1.002-1.030) 02/18/20 13:45 Urine Protein NEGATIVE mg/dL (NEGATIVE) 02/18/20 13:45 Urine Glucose (UA) NEGATIVE mg/dL (NEGATIVE) 02/18/20 13:45 Urine Ketones NEGATIVE mg/dL (NEGATIVE) 02/18/20 13:45 Urine Occult Blood LARGE (NEGATIVE) H 02/18/20 13:45 Urine Nitrite POSITIVE (NEGATIVE) H 02/18/20 13:45 Urine Bilirubin NEGATIVE (NEGATIVE) 02/18/20 13:45 Urine Urobilinogen 0.2 (NORMAL) E.U./dL (NORMAL) 02/18/20 13:45 Ur Leukocyte Esterase MODERATE (NEGATIVE) H 02/18/20 13:45 Urine RBC 0-5 /HPF (0-5) 02/18/20 13:45 Urine WBC 11-25 /HPF (0-5) H 02/18/20 13:45 Ur Epithelial Cells None Seen /HPF (<= Few) 02/18/20 13:45 Ur Squamous Epith Cells NONE SEEN (<= Few) 02/18/20 13:45 Urine Bacteria Few /HPF (None Seen) 02/18/20 13:45 Ur Microscopic Review INDICATED 02/18/20 13:45 Urine Culture Comments INDICATED 02/18/20 13:45 - Procedures Procedures: Procedures RESPIRATORY VENTILATION, LESS THAN 24 CONSECUTIVE HOURS (01/11/20)
[2020-02-20] MEDS: ACETAMINOPHEN 325 MG TABLET PO PRN ×2 (14:12→20:26)
--- NOTE | 2020-02-20 16:24 | ADVANCE CARE PLANNING NOTE ---
Advance Care Planning - Planning Encounter Date: 02/20/20 Time: 15:30 Purpose: To update her caregiver, Henny, regarding the patient's progress. To update her sister, Katie Massey, regarding her condition and offer transfer for coronary angiogram. To ascertain if the patient has CODE STATUS wishes or a POLST. Parties in Attendance: I spoke to the caregiver, Henny, by phone outside of the patient's room. I then called the patient's sister, Katie Massey,who is in [place] outside the patient's room. Decisional Capacity of the Patient: The patient is developmentally delayed, as such she does not make her own medical decisions. The sister is the closest next of kin and gives consent. Henny has been the patient's caregiver for 20 years and does know the patient's wishes and her most recent functional status. - Diagnosis for Encounter (1) NSTEMI (non-ST elevated myocardial infarction) Summary: The patient has ruled in for an NSTEMI with troponins of 289 going to 309 and peaking at 415, before dropping. EKG showed T wave flattening consistent with a NSTEMI. An Echo is pending to evaluate the LVEF. The patient has been started on beta-blockers, aspirin, statin and Coumadin continues. (2) Developmental delay, mild Summary: The report that has been received from the [facility] facility is that the patient has the mental capacity of a 12-year-old. - Encounter Subjective/Patient's Story: This is a 79-year-old white female with a history of developmental delay, lives in a [facility], has a history of hypothyroidism, schizophrenia stable on medications, prior UTIs, and prior PE/DVT on chronic Coumadin therapy. She is able to communicate if she has pain and tell people her wishes. She walks at the m[facility] on a flat surface, needs to be led around by hand holding. Henny is the caregiver who has known her for 20 years. Henny asked for updates in the patient's medical condition which I gave her today. Objective/Medical Story: The patient is mostly functional, lives in a m[facility]. She has a Hx of prior PE/DVT and is on chronicx Coumadin. She presented with altered mental status and weakness of about 2 days, which was presumably from a UTI. Cultures have subsequently grown E. coli. She received IV antibiotics and IV hydration and her mental status recovered to probably her baseline after 24 hours. Patient is now walking and is in no distress. A troponin was ordered in the ER at admission which was elevated therefore repeat troponins were cycled and have peaked at 415. The EKG was consistent with inferolateral WI with flattened T waves. An Echo is still pending. The patient is tolerating her new beta-volodymyr, higher statin dose, baby aspirin in addition to her chronic Coumadin. Goals of Care: During the first phone call which was with Henny, the caregiver that knows her for 20 years, I described the patient's current functional and mental status and Henny reports that this is probably her baseline now (Henny has not been here to see her because visitors are prohibited during the current COVID isolation). Henny says that the patient enjoys life, is conversant, was able to participate in a [employer] league until arthritis of her knee got worse 1 or 2 years ago. Henny thinks that the patient would want to be fully resuscitated. Henny thinks that the sister would agree to have the patient transferred for coronary angiogram since they both want the maximum of what is the best for the patient. I described that the patient will need to follow directions like hold her breath or cough or lay still so the arterial puncture can heal, and Henny thinks that the patient can follow those directions. The second phone call was with the sister, Katie Massey, who lives in [place]. I updated her on the patient's diagnoses and explained the risks and benefits of a coronary angiogram and how the patient would be transferred to another facility, versus having no angiogram and have her PCP refer her to a Wire Stra[employer] for outpatient management. I described that she is tolerating her medicines and an Echo is pending to evaluate LV function. The sister decided that she does not want to automatically agree to a coronary angiogram, would like the Echo to be done to see how bad the heart attack was, and to be called again tomorrow with that update, and she will decide about an angiogram tomorrow. There is no POLST. The sister and the patient have never discussed the patient's code wishes. The sister hesitated and stated that she would like to think about the question of CODE STATUS for Felisha. The sister will also call a niece who is an RN and get the nieces opinion about CODE STATUS. The sister then wants to discuss this during tomorrow's phone call as well. 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 I described that if she needs to be put on a ventilator because of a Code Blue, we cannot predict how long that would be ahead of time. The sister wants to think about all the above. Plan: Await results of the Echocardiogram. Katie Massey, the sister, wants to be called with the results of the Echocardiogram to decide about a coronary angiogram, and to discuss what she has decided about CODE STATUS for Felisha. If a coronary angiogram is to be done, both the sister and Henny want it to be done at [facility]. Continue with current medical management. Patient will currently remain a full code. Code Status: Attempt Resuscitation Time spent on advance care plannin min
[2020-02-20] MEDS: ATORVASTATIN 40 MG TABLET PO SCH (20:21)
[2020-02-21] MEDS: SODIUM CHLORIDE FLUSH 0.9% 10 ML SYRINGE IVP SCH ×3 (01:43→16:12)
[2020-02-21 05:50] LABS: BASOPHILS % (AUTO) 0.2 %; EOSINOPHILS # (AUTO) 0.1 10^3/uL (0.0-0.7); EOSINOPHILS % (AUTO) 1.9 %; HGB - HEMOGLOBIN 13.4 g/dL (12.0-16.0); LYMPHOCYTES # (AUTO) 1.1 10^3/uL (1.5-3.5); LYMPHOCYTES % (AUTO) 23.8 %; MEAN CORPUSCULAR HEMOGLOBIN 31.5 pg (27.0-31.0); MEAN CORPUSCULAR HGB CONC 31.5 g/dL (32.0-36.0); MEAN CORPUSCULAR VOLUME 100.2 fL (81.0-99.0); MEAN PLATELET VOLUME 10.2 fL (7.9-10.8); MONOCYTES # (AUTO) 0.6 10^3/uL (0.0-1.0); MONOCYTES % (AUTO) 12.1 %; NEUTROPHILS # (AUTO) 2.9 10^3/uL (1.5-6.6); NEUTROPHILS % (AUTO) 61.6 %; PLT - PLATELET COUNT 175 10^3/uL (130-450); RED BLOOD COUNT 4.25 10^6/uL (4.20-5.40); RED CELL DISTRIBUTION WIDTH 14.6 % (12.0-15.0); WHITE BLOOD COUNT 4.6 x10^3/uL (4.8-10.8)
[2020-02-21 05:55] LABS: INR 1.6 (0.8-1.2); PT - PROTHROMBIN TIME 17.8 secs (9.9-12.6)
[2020-02-21 05:59] LABS: CALCIUM 8.1 mg/dL (8.5-10.3); CREATININE 0.8 mg/dL (0.4-1.0)
[2020-02-21] MEDS: LEVOTHYROXINE 75 MCG TABLET PO SCH (06:23)
[2020-02-21] MEDS: ACETAMINOPHEN 325 MG TABLET PO PRN (10:01)
[2020-02-21] MEDS: polyethylene glycoL 3350 17 GM PACKET PO SCH (10:01)
[2020-02-21] MEDS: risperiDONE 1 MG TABLET PO SCH ×2 (10:02→21:07)
[2020-02-21] MEDS: TORSEMIDE 20 MG TABLET PO SCH (10:02)
[2020-02-21] MEDS: SENNA 8.6 MG TABLET PO SCH (10:02)
[2020-02-21] MEDS: ASPIRIN CHEW 81 MG TABLET PO SCH (10:02)
[2020-02-21] MEDS: carvediloL 3.125 MG TABLET PO SCH ×2 (10:02→21:07)
[2020-02-21] MEDS: POTASSIUM CHLORIDE 10 MEQ CAPSULE PO SCH ×2 (10:02→16:55)
[2020-02-21] MEDS: DOCUSATE SODIUM 250 MG CAPSULE PO SCH (10:03)
[2020-02-21] MEDS: cefTRIAXone 1 GM in SODIUM CHLORIDE 0.9% MINIBAG 100 ML IV SCH (10:03)
[2020-02-21] MEDS ORDERED: WARFARIN 5 MG TABLET PO SCH (14:00)
--- NOTE | 2020-02-21 17:52 | PROVIDER PROGRESS NOTE ---
Subjective - Prog Note Date Prog Note Date: 02/21/20 Prog Note Time: 17:49 - Subjective Pt reports feeling: No change Objective - Vital Signs/Intake & Output Vital Signs: Vital Signs x48h Temp Pulse Resp BP Pulse Ox 02/21/20 16:02 36.9 C 82 16 111/53 L 97 02/21/20 12:12 37.0 C 70 20 118/51 L 96 Intake & Output: Intake & Output 02/18/20 02/19/20 02/20/20 02/21/20 23:59 23:59 23:59 23:59 Intake Total 1615 1240 2312 855 Output Total 600 2000 1650 250 Balance 1015 -760 662 605 - Lab Results Fish Bones: 02/21/20 05:26 02/21/20 05:26 Other Labs: Lab Results x24hrs 02/21/20 02/21/20 02/21/20 Range/Units 05:26 05:26 05:26 WBC 4.6 L (4.8-10.8) x10^3/uL RBC 4.25 (4.20-5.40) 10^6/uL Hgb 13.4 (12.0-16.0) g/dL Hct 42.6 (37.0-47.0) % MCV 100.2 H (81.0-99.0) fL MCH 31.5 H (27.0-31.0) pg MCHC 31.5 L (32.0-36.0) g/dL RDW 14.6 (12.0-15.0) % Plt Count 175 (130-450) 10^3/uL MPV 10.2 (7.9-10.8) fL Neut # (Auto) 2.9 (1.5-6.6) 10^3/uL Lymph # (Auto) 1.1 L (1.5-3.5) 10^3/uL Storey # (Auto) 0.6 (0.0-1.0) 10^3/uL Eos # (Auto) 0.1 (0.0-0.7) 10^3/uL Baso # (Auto) 0.0 (0.0-0.1) 10^3/uL Absolute Nucleated RBC 0.00 x10^3/uL Nucleated RBC % 0.0 /100WBC PT 17.8 H (9.9-12.6) secs INR 1.6 H (0.8-1.2) Sodium 141 (135-145) mmol/L Potassium 3.7 (3.5-5.0) mmol/L Chloride 103 (101-111) mmol/L Carbon Dioxide 27 (21-32) mmol/L Anion Gap 11.0 (6-13) BUN 17 (6-20) mg/dL Creatinine 0.8 (0.4-1.0) mg/dL Estimated GFR (MDRD) 70 L (>89) Glucose 152 H (70-100) mg/dL Calcium 8.1 L (8.5-10.3) mg/dL Assessment/Plan - Problem List (1) NSTEMI (non-ST elevated myocardial infarction) Impression: A troponin was checked in the ER at admission because of her overall change in condition. The result was 289. The EKG did show inferolateral T wave flattening. Troponin started at 289, peaked at 415 and was down to 393 on January 19. The patient probably could not vocalize any chest symptom complaints because of her being developmentally delayed. She is now on new beta-volodymyr, is on daily aspirin, statin at high-dose, and Coumadin continues therefore she did not receive heparin or Lovenox. I have asked Social Work to help determine if she is a candidate for intervention such as coronary angiography. There apparently was no DPOA paperwork at the care home where she lives at. Her caregiver at the care home, [facility], was not able to return the phone call to the provider yesterday. She finally returned the phone call late yesterday evening. Her sister Katie was also spoken to today. They have had a family conference and spoke to Katie's niece who is a nurse. They have decided that they do want cardiology evaluation. If she needs to be transferred to [place] to do so. I spoke to [place] cardiology cushion padder today, Dr. Elliott. He states that it is doubtful they would want to move forward with an angiogram because of the developmental delay in the patient's cognitive abilities. He also feels that she may have had demand ischemia from her infection and not a true NSTEMI. However, he request that I start out with a stress test. If the stress test is positive to give him a call tomorrow. Otherwise she can be discharged home (2) Pulmonary edema resolved. Assessment/Plan: Patient had interstitial edema seen on admission chest x-ray, despite her having no appearance of being orthopneic or dyspneic. She did not get IV hydration, therefore but was kept on her oral diuretics. The dose was torsemide twice daily. 02/19 this was decreased to just daily because she started to develop contraction alkalosis. She only has a preliminary echo report from today. Ejection fraction is minimally reduced from her previous echo. She is currently 55 to 60%. She has grade 1 diastolic dysfunction. No change in management at this time. Continue same medications. (3) E. coli UTI Assessment/Plan: The initial impression was that her altered mental status was from an infection. Her urine has grown out E. coli. She has had 3 days of IV antibiotics, and will transition to oral antibiotics depending on sensitivities from that urine culture. Resistant to Cipro, Levaquin but sensitive to Macrodantin, cefazolin, and ampicillin. Blood cultures are negative to date. She is allergic to penicillin. Will change to Macrodantin. (4) Altered mental status resolved Qualifiers: Qualified Code(s): R40.2431 - Jh coma scale score 3-8, in the field [EMT or ambulance] Assessment/Plan: At admission, the care home reported that she had several days of weakness and more confusion. This may have been from her infection but also the acute IN. Since her second day here, she is alert, communicative, able to feed herself, can walk. It would be appropriate to have her caregiver, Henny, evaluate her here, to see if she is back to her baseline mental status. I requested that SW contact the group for this. Today physical therapy felt that she was almost back to baseline. She is contact-guard assist for up to 20 feet of walking. But they think she would value Occupational Therapy consultation. They want to remind me to add physical therapy and Occupational Therapy to [facility] when she leaves. (5) Schizophrenia Assessment/Plan: Stable on all her psychiatric medications continued while she is here (6) Hypokalemia Assessment/Plan: Related to loop diuretic use. Replaced. 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 She presented with a supra therapeutic INR, therefore Coumadin has been on hold for several days. Daily INR being checked, and will resume Coumadin when INR is between 2 and 3. 1.6 today. usual dose resumed by Wordpress Developer this am. (8) Developmental delay, mild Assessment/Plan: The report that was received from the care home is that she has the mentation of a 12-year-old. She can walk independently but needs to be led by the hand, at the care home. She does other ADLs pretty independently, from what we see h ere.
[2020-02-21] MEDS: NITROFURANTOIN MACRO 100 MG CAPSULE PO SCH (19:01)
[2020-02-21] MEDS: ATORVASTATIN 40 MG TABLET PO SCH (21:07)
[2020-02-22] MEDS: SODIUM CHLORIDE FLUSH 0.9% 10 ML SYRINGE IVP SCH ×3 (01:26→15:58)
[2020-02-22] MEDS: LEVOTHYROXINE 75 MCG TABLET PO SCH (04:57)
[2020-02-22] MEDS: ACETAMINOPHEN 325 MG TABLET PO PRN ×3 (04:57→18:23)
[2020-02-22] MEDS: risperiDONE 1 MG TABLET PO SCH (09:11)
[2020-02-22] MEDS: POTASSIUM CHLORIDE 10 MEQ CAPSULE PO SCH ×2 (09:13→15:59)
[2020-02-22] MEDS: ASPIRIN CHEW 81 MG TABLET PO SCH (09:14)
[2020-02-22] MEDS: SENNA 8.6 MG TABLET PO SCH (09:14)
[2020-02-22] MEDS: NITROFURANTOIN MACRO 100 MG CAPSULE PO SCH ×2 (09:14→15:59)
[2020-02-22] MEDS: TORSEMIDE 20 MG TABLET PO SCH (09:14)
[2020-02-22] MEDS: DOCUSATE SODIUM 250 MG CAPSULE PO SCH (09:15)
[2020-02-22] MEDS ORDERED: REGADENOSON 0.4 MG/5 ML SYRINGE IVP ONE (11:22)
[2020-02-22] MEDS: carvediloL 3.125 MG TABLET PO SCH (13:16)
[2020-02-22] MEDS ORDERED: WARFARIN 2.5 MG TABLET PO SCH (14:00)
[2020-02-22] MEDS: polyethylene glycoL 3350 17 GM PACKET PO SCH (14:13)
--- NOTE | 2020-02-22 14:30 | Nuclear Medicine Report ---
Reason: mich pro Procedure Date: 02/22/2020 Accession Number: [id number] / [id number] Procedure: NM - Myocardial Perfusion STR/RST CPT Code: Final Report FULL RESULT: EXAM: SINGLE-ISOTOPE PHARMACOLOGICAL STRESS TEST WITH REGADENOSON. SINGLE-ISOTOPE AND ONE-DAY REST/STRESS MYOCARDIAL PERFUSION SCANS WITH TOMOGRAPHIC IMAGING, QUANTITATIVE ANALYSIS, WALL MOTION ANALYSIS AND CALCULATION OF EJECTION FRACTION. EXAM DATE: 02/22/2020 01:18 PM. CLINICAL HISTORY: Elevated troponins. COMPARISON: None. TECHNIQUE: After the intravenous administration of 10.6 mCi of Tc-99m sestamibi, a rest myocardial perfusion scan was done with tomography. Motion correction was applied when appropriate. After an appropriate delay, pharmacological stress was performed with the infusion of 0.4 mg regadenoson per protocol. According to protocol, 44.4 mCi of Tc-99m sestamibi was injected for stress myocardial perfusion scan. Motion correction was applied when appropriate. Gated tomographic images were obtained for wall motion analysis and computation of left ventricular ejection fraction. FINDINGS: Perfusion images: Left ventricular chamber size appears normal at rest and unchanged at stress. No convincing fixed perfusion deficits. No convincing reversible perfusion deficits. SSS 5, SRS 0, SDS 5. Gated images: No convincing focal wall motion abnormality. Calculated left ventricular EDV 81 mL, ESV 15 mL. The left ventricular ejection fraction is estimated at 82% (normal > 50%). IMPRESSION: 1. No convincing reversible perfusion deficits to indicate stress-induced ischemia. 2. No convincing fixed perfusion deficits. 3. Left ventricular ejection fraction of 82% (normal > 50%). Please correlate findings with stress ECG tracings and procedure notes. RADIA
--- NOTE | 2020-02-22 15:59 | Discharge Plan ---
Discharge Plan Problem Reviewed?: Yes Disposition: Home, Self Care Condition: Stable Prescriptions: carvediloL [Coreg] 3.125 mg PO BID #60 tablet Nitrofurantoin [Macrobid] 100 mg PO BIDWM #8 capsule Diet: Regular Activity Restrictions: Activity as Tolerated Shower Restrictions: No Driving Restrictions: Yes (no driving) Health Concerns: The patient has developmental delay with cognitive deficits and presents with 2 days of confusion and progressive weakness. In the emergency room she was found to have a urinary tract infection and elevated troponins indicating a possible non-ST elevation myocardial infarction. Treatment consisted of IV antibiotics for the urinary tract infection. She was able to be switched to oral antibiotics. Troponins were checked on a regular basis. She peaked at approximately 429 level. And then went back down. Initially, it was thought that the patient should be transferred for cardiology evaluation with a coronary angiogram. However cardiology at [facility] [place] wanted a stress test done first. If the stress test was positive then she would be evaluated. If the stress test was negative they did not need to see her urgently. The stress test was negative on the day of discharge. Plan of Treatment: 1. Complete antibiotic therapy for urinary tract infection that is growing out E. coli. She will be sent home on 4 more days of Macrobid twice a day. 2. Because of the stress on her heart from the infection, and the rise in troponins, she was started on a protective blood pressure medicine called carvedilol. She will be sent home on that twice a day. 3. We are not resuming aspirin since she is on Coumadin. 4. The case was discussed at length with her power of deputy prosecuting attorney and sister, Katie Massey @[phone]. Care Goals: Please see your primary care provider, Dr. Leigh, in follow-up and have him make a referral to see [facility] [place] cardiology at the medical ambulatory clinic at [facility]. It is not an urgent matter and you can be seen in routine follow-up. Assessment: Patient has cognitive deficits due to developmental delay. Case, treatment, and plan were discussed with her power of deputy prosecuting attorney. She request that the follow-up appointment be made by in-home textiles printer for the patient named Henny. [facility]'s number is [phone]. No Smoking: If you smoke, Please STOP! Call for help. Follow-up with: Brayden Leigh MD [Primary Care Provider] -
--- NOTE | 2020-02-22 17:54 | DISCHARGE SUMMARY ---
"Discharge Summary Admit Date: 02/18/20 Discharge Date: 02/22/20 Discharging Provider: Perla Pang MD Primary Care Provider: Kodi Leigh MD Code Status: Attempt Resuscitation Condition at Discharge: Stable Discharge Disposition: 01 Home, Self Care - DIAGNOSES Discharge Diagnoses with Status of Each Condition: 1. Non-ST elevated myocardial infarction 2. Possible demand ischemia 3. Abnormal chest x-ray 4. E. coli UTI 5. Altered mental status 6. Developmental delay 7. Schizophrenia 8. Hypokalemia 9. Anticoagulant long-term use 10. Hypothyroidism 11. Developmental delay, moderate - HPI History of Present Illness: The HPI was obtained from the HPI of the ED physicians H&P because the patient is developmentally delayed and not able to provide a reliable history. It is reported that the patient has been having several days of progressive weakness, decreased oral intake and has appeared a bit confused. She presented from a family long-term. Her caregiver reported noting otherwise urine. Work-up in the ED included a UA which indicated a UTI. She was also found to have a troponin of 289. Chest x-ray suggested pulmonary edema. Mild cardiac enlargement was also noted. Her only complaint is of right knee pain which has been chronic. She denies chest pain, dyspnea, abdominal pain, nausea, vomiting or fever. History - Past Medical History Cardiovascular: reports: None, Deep vein thrombosis, Pulmonary embolism Respiratory: reports: None Neuro: reports: Dementia, Other Endocrine/Autoimmune: reports: HyPOthyroidism GI: reports: Chronic constipation : reports: None Psych: reports: Anxiety, Schizophrenia Musculoskeletal: reports: Osteoarthritis Derm: reports: Psoriasis - CONSULTS | PROCEDURES Procedures: 1. Chest x-ray coarse interstitial opacities throughout both lungs without focal consolidation. Findings suggest edema or chronic lung changes. Pleural thickening versus small right pleural effusion. Mild cardiac enlargement. On previous CT of the chest done December 2019 there are punctate calcific densities within the posterior lungs, subpleural reticulation. Findings may represent fibrosis with diffuse pulmonary ossification. A chest x-ray also done in December 2019 shows reticular opacities within the lungs. 2. CT of head compared to stroke CT done in December 2019. Stable and similar appearance and distribution of mild patchy periventricular white matter, chronic small vessel ischemic changes. No intraparenchymal hemorrhage, mass-effect or CT finding of evolving acute/subacute infarct. 3. Knee x-ray, right knee. No fracture or osseous abnormality identified. Bones diffusely mineralized. Degenerative arthritis in the patellofemoral compartment. 4. Nuclear medicine myocardial perfusion stress/rest. Left ventricular chamber size is normal. Unchanged with stress. No perfusion defects. Left ventricular end-diastolic volume 81 mm, end-systolic volume 15 mm. Ejection fraction estimated at 82%. 5. Echocardiogram with overall left ventricular systolic function that is normal and an ejection fraction of 55 to 60%. Mildly abnormal heart pressures. - HOSPITAL COURSE Hospital Course: Her initial work-up of her confusion and progressive weakness superimposed on developmental delay and at baseline cognitive deficit which was felt to be due to a UTI and possible non-ST elevation WA because of abnormal troponins. Telemetry was without any arrhythmias. Initial troponin was 289.9. High-sensitivity troponin. She peaked at 415.4. And then decreased on subsequent 1-393.3. EKG had flattened ST-T wave changes. Family was still interested in having her evaluated in spite of her comorbidities. I spoke to cardiology who said that they were not very enthusiastic about taking this woman to a coronary angiogram lab. As such an echocardiogram showed no congestive heart failure. It is felt that the chest x-ray changes being interpreted as congestive heart failure were chronic when old chest x-rays and CTs of the chest were reviewed. Troponins were most likely elevated due to demand ischemia in the face of her infection. Nuclear medicine stress test showed no fixed or reversible perfusion defects. As such she was continued on her simvastatin and Coumadin. Aspirin was not continued. Coreg was continued because of mildly elevated blood pressure. This could be discontinued at the discretion of her primary care provider in follow-up. UTI had E. coli. White cell count was 8.4 on admission and was 4.6 by the time of discharge. Sensitivities were reviewed and she is resistant to ciprofloxacin and Levaquin. Sensitive to all others. As such she was sent home on Macrobid twice daily. Anticoagulation was initially held because of INR 3.5. It was resumed at discharge. She was seen by physical therapy but for most of the last 2 days she was not seen because echo was being done when feet PT came and the second day the patient declined to work with PT. She is able to stand from a chair with assist x1. Ambulate with a walker for 15 feet with assist x1. She needs cues for maneuvering around obstacles. She does communicate, smile, cooperate. Substantial cognitive deficit. She is discharged in stable condition to return to her long-term. Temperature is 36.4, pulse is 70, blood pressure 111/53. Respirations 20. 98% on room air. Facial asymmetry since , dysarthria stable. Cognitive deficit appears stable. Lungs are clear without any increased respiratory distress, crackles rhonchi or wheezing. PMI is normally placed with a regular rate and rhythm. T he abdomen is benign. She does not have any pedal edema. Greater than 30 minutes was spent coordinating discharge. Her sister was contacted every day since her sister is her power of state's attorney. She was amenable to our plan and our discharge. Her name is Katie Massey. Phone number [phone]. - ALLERGIES Allergies/Adverse Reactions: Allergies Allergy/AdvReac Type Severity Reaction Status Date / Time Penicillins Allergy Unknown Verified 02/18/20 12:47 - MEDICATIONS Home Medications: Ambulatory Orders Medication Instructions Recorded Confirmed Levothyroxine [Synthroid] 75 mcg PO QDAC 07/22/19 02/18/20 Simvastatin [Zocor] 20 mg PO QPM 07/22/19 02/18/20 Torsemide 40 mg PO BID 07/22/19 02/18/20 Potassium Chloride 10 meq PO BIDWM 01/11/20 02/18/20 Acetaminophen 500 mg PO TID PRN 02/18/20 02/18/20 Ascorbic Acid 500 mg PO DAILY 02/18/20 02/18/20 Docusate Sodium 250Mg Capsule 250 mg PO DAILY 02/18/20 02/18/20 [Colace 250Mg Capsule] Trazodone HCl 200 mg PO QPM 02/18/20 02/18/20 Warfarin Sodium 2.5 mg PO MOWEFR@1400 02/18/20 02/18/20 Warfarin Sodium 5 mg PO SUTUTHSA@1400 02/18/20 02/18/20 risperiDONE [Risperdal] 3 mg PO BID 02/18/20 02/18/20 Nitrofurantoin [Macrobid] 100 mg PO BIDWM #8 capsule 02/22/20 carvediloL [Coreg] 3.125 mg PO BID #60 tablet 02/22/20 - LABS Result Diagrams: 02/21/20 05:26 02/21/20 05:"
[2020-02-22 18:26] VITALS: BP 111/53
--- NOTE | 2020-02-23 07:43 | PROCEDURE REPORT ---
Hospitalist Procedure Note - Procedure Note Procedure Note: Nuclear Medicine Myocardial Perfusion STR/RST performed 02/22/2020 11:25 Indication: Assessment of abnormal high-sensitivity troponins Clinical history: 79-year-old white female with moderate developmental delay since , presenting to our emergency room with confusion and progressive weakness for 2 days. She has been found to have a urinary tract infection and elevated troponins, chest x-ray showing mild congestive heart failure. Troponins peaked at over 400 and have since gone back down. EKG shows flattened T waves. Echocardiogram shows overall left ventricular systolic function that is normal with ejection fraction 55 to 60%. No regional wall motion abnormalities. Impaired relaxation consistent with grade 1 diastolic dysfunction. New biatrial enlargement seen. No significant valvular heart disease. Risk factors for coronary artery disease include age. There is no hypertension, diabetes, hyperlipidemia, smoking, or significant family history. Family is interested in proceeding to coronary angiogram if necessary. Cardiology is requesting stress test before that step. Procedure: The patient has a power of commercial litigation attorney named Katie Bryson. Phone number [phone]. She verbally agrees over the phone for stress test. Permission obtained yesterday for today's procedure. Pharmacologic stress testing was performed with Lexiscan. Infusion was over 1 minute and 15 seconds. No exercise was performed. Baseline heart rate was 69 bpm with a blood pressure of 122/70. During infusion heart rate felicia to 83, with blood pressure 129/63. Normal response. The patient did not develop any symptoms. There was no symptoms of flushing, chest pain, shortness of breath. The resting EKG demonstrated normal sinus rhythm, and frequent PVCs. No significant ST-T wave changes. T waves were flat in V5 and V6 to begin with. During infusion there were no changes within the ST segments. There was no indication of myocardial ischemia. No change in PVC frequency. Patient underwent rest and stress nuclear imaging with 10.6 mCi of technetium 99 sestamibi/44.4 mCi of technetium 99 sestamibi respectively. Dictated under separate report by radiology, perfusion images showed left ventricular chamber size normal at rest and unchanged at stress. No convincing fixed perfusion deficits. Calculated left ventricular end-diastolic volume is 81 ml, end-systolic volume 15 mL. Ejection fraction estimated 82%. Impression: assessing EKG during stress infusion and myocardial imaging studies, there is no significant coronary artery disease identified.
--- NOTE | 2020-02-23 08:12 | CARDIAC PROCEDURE NOTE ---
Stress Test Report Service Date: 02/22/20 Service Time: 11:25 Ordering Provider: Perla Pang MD Indication for Test: abnormal troponins on admission with flattened T waves on EKG Significant Medical History: 79-year-old white female with moderate developmental delay since , presenting to our emergency room with confusion and progressive weakness for 2 days. She has been found to have a urinary tract infection and elevated troponins, chest x-ray showing mild congestive heart failure. Troponins peaked at over 400 and have since gone back down. EKG shows flattened T waves. Echocardiogram shows overall left ventricular systolic function that is normal with ejection fraction 55 to 60%. No regional wall motion abnormalities. Impaired relaxation consistent with grade 1 diastolic dysfunction. New biatrial enlargement seen. No significant valvular heart disease. Cardiac Risk Factors: age. There is no hypertension, diabetes, hyperlipidemia, smoking, or significant family history. Family is interested in proceeding to coronary angiogram if necessary. Cardiology is requesting stress test before that arnold Type of Stress Test: Pharmacologic Stress Test with MPI Pharmacologic Agent: Lexiscan Procedure: The patient has a power of estate planning attorney named Katie Massey. Phone number [phone]. She verbally agrees over the phone for stress test. Permission obtained yesterday for today's procedure. Pharmacologic stress testing was performed with Lexiscan. Infusion was over 1 minute and 15 seconds. No exercise was performed. Baseline heart rate was 69 bpm with a blood pressure of 122/70. During infusion heart rate felicia to 83, with blood pressure 129/63. Normal response. The patient did not develop any symptoms. There was no symptoms of flushing, chest pain, shortness of breath. The resting EKG demonstrated normal sinus rhythm, and frequent PVCs. No significant ST-T wave changes. T waves were flat in V5 and V6 to begin with. During infusion there were no changes within the ST segments. There was no indication of myocardial ischemia. No change in PVC frequency. Patient underwent rest and stress nuclear imaging with 10.6 mCi of technetium 99 sestamibi/44.4 mCi of technetium 99 sestamibi respectively. Dictated under separate report by radiology, perfusion images showed left ventricular chamber size normal at rest and unchanged at stress. No convincing fixed perfusion deficits. Calculated left ventricular end-diastolic volume is 81 ml, end-systolic volume 15 mL. Ejection fraction estimated 82%. Summary: assessing EKG during stress infusion and myocardial imaging studies, there is no significant coronary artery disease identified.
[2020-02-23] MEDS ORDERED: REGADENOSON 0.4 MG/5 ML SYRINGE IVP ONE (12:50)
== END 2020-02-22 20:55 | disposition home or self-care (01) | DRG 281 ==
LOC: ED 12:42 → MS2 15:31 → OBSVTOIN 02-19 07:50
PROVIDERS: ADMIT Internal Medicine; ATTEND Specialist
DX: I21.A1 Myocardial infarction type 2 (principal); N39.0 Urinary tract infection, site not specified; J81.1 Chronic pulmonary edema; A49.8 Other bacterial infections of unspecified site; E87.6 Hypokalemia; T50.1X5A Adverse effect of loop [high-ceiling] diuretics, initial encounter; Y92.230 Patient room in hospital as the place of occurrence of the external cause; M25.561 Pain in right knee; E78.5 Hyperlipidemia, unspecified; E03.9 Hypothyroidism, unspecified; R62.50 Unspecified lack of expected normal physiological development in childhood; N17.9 Acute kidney failure, unspecified; R41.82 Altered mental status, unspecified; F03.90 Unspecified dementia, unspecified severity, without behavioral disturbance, psychotic disturbance, mood disturbance, and anxiety; F20.9 Schizophrenia, unspecified; F41.9 Anxiety disorder, unspecified; M17.11 Unilateral primary osteoarthritis, right knee; G89.29 Other chronic pain; K59.09 Other constipation; Z74.09 Other reduced mobility; Z79.01 Long term (current) use of anticoagulants; Z86.711 Personal history of pulmonary embolism; Z86.718 Personal history of other venous thrombosis and embolism; Z87.440 Personal history of urinary (tract) infections; Z91.81 History of falling
CPT/HCPCS: 36415; 51701; 70450; 71045; 73560; 78452; 80048; 80053; 81001; 83605; 83690; 83735; 83880; 84484; 85025; 85610; 87086; 87181; 93005; 93017; 93306; 96361; 96365; 96366; 96368; 96372; 96375; 97116; 97162; 97167; 99284; 99285; A9270; A9500; G0378; J2785; 81003

== ENCOUNTER 2020-03-02 08:00 | Outpatient (CLI) | payer MEDICARE, MEDICAID | END 2020-03-02 23:59 | disposition home or self-care (01) | LOC: LAB.WCP 08:00 | PROVIDERS: ATTEND Family Medicine | DX: Z86.711 Personal history of pulmonary embolism (principal); Z79.01 Long term (current) use of anticoagulants ==

== ENCOUNTER 2020-03-27 08:00 | Outpatient (CLI) | payer MEDICARE, MEDICAID | END 2020-03-27 23:59 | disposition home or self-care (01) | LOC: LAB.WCP 08:00 | PROVIDERS: ATTEND Family Medicine | DX: I80.209 Phlebitis and thrombophlebitis of unspecified deep vessels of unspecified lower extremity (principal); Z79.01 Long term (current) use of anticoagulants; Z86.711 Personal history of pulmonary embolism ==

== ENCOUNTER 2020-07-02 11:04 | Outpatient (CLI) | payer MEDICARE, MEDICAID | END 2020-07-02 11:05 | disposition home or self-care (01) | LOC: LAB 11:04 | PROVIDERS: ATTEND Internal Medicine | DX: Z79.899 Other long term (current) drug therapy (principal) | CPT/HCPCS: 36415; 82306 ==

== ENCOUNTER 2020-07-03 16:36 | Outpatient (CLI) | payer MEDICARE, MEDICAID | END 2020-07-03 16:37 | disposition critical access hospital (66) | LOC: EMS 16:36 | PROVIDERS: ATTEND Surgery | DX: M25.561 Pain in right knee (principal) | CPT/HCPCS: A0425; A0429 ==

== ENCOUNTER 2020-07-03 16:57 | Emergency (ER) | payer MEDICARE, MEDICAID ==
--- NOTE | 2020-07-03 17:37 | ED Physician Documentation ---
History of Present Illness - Stated complaint Stated Complaint: WEAKNESS - Chief complaint Chief Complaint: General - History obtained from History obtained from: Patient, EMS - History of Present Illness Timing: Today - Additonal information Additional information: 80 y/o female with developmental delay has a chief complaint of weakness and right knee pain. Review of Systems Constitutional: denies: Fever Eyes: denies: Decreased vision Ears: denies: Ear pain Nose: denies: Congestion Throat: denies: Sore throat Cardiac: denies: Chest pain / pressure Respiratory: denies: Dyspnea, Cough GI: denies: Abdominal Pain, Nausea, Vomiting, Constipation, Diarrhea : denies: Dysuria Skin: denies: Rash Musculoskeletal: reports: Joint pain (right knee). denies: Neck pain, Back pain PD PAST MEDICAL HISTORY - Past Medical History Cardiovascular: None, Hypertension, Deep vein thrombosis, Pulmonary embolism Respiratory: None Neuro: Dementia, Other Endocrine/Autoimmune: HyPOthyroidism GI: Chronic constipation : None Psych: Anxiety, Schizophrenia Musculoskeletal: Osteoarthritis, Gout, Other Derm: Psoriasis - Past Surgical History Past Surgical History: No HEENT: Cataracts - Present Medications Home Medications: Ambulatory Orders Medication Instructions Recorded Confirmed Levothyroxine [Synthroid] 75 mcg PO QDAC 07/22/19 05/09/20 Simvastatin [Zocor] 20 mg PO QPM 07/22/19 05/09/20 Torsemide 40 mg PO BID 07/22/19 05/09/20 Potassium Chloride 10 meq PO BIDWM 01/11/20 05/09/20 Acetaminophen 500 mg PO TID PRN 02/18/20 05/09/20 Ascorbic Acid 500 mg PO DAILY 02/18/20 05/09/20 Docusate Sodium 250Mg Capsule 250 mg PO DAILY 02/18/20 05/09/20 [Colace 250Mg Capsule] Warfarin Sodium 2.5 mg PO MOWEFR@1400 02/18/20 05/09/20 Warfarin Sodium 5 mg PO SUTUTHSA@1400 02/18/20 05/09/20 risperiDONE [Risperdal] 3 mg PO BID 02/18/20 05/09/20 carvediloL [Coreg] 3.125 mg PO BID #60 tablet 02/22/20 05/09/20 Diclofenac Sodium [Voltaren] 2 - 4 mg TOP PRN PRN 04/12/20 05/09/20 EPINEPHrine [Epipen Jr] 0.3 mg IM DAILY PRN 04/12/20 05/09/20 Fluticasone [Flonase] 1 - 2 spray BÁRBARA BID 04/12/20 05/09/20 Hydrocortisone Acet/Aloe Vera 1 applic TD BID PRN 04/12/20 05/09/20 [Nucort Lotion] Ketoconazole [Nizoral] 1 applic TOP TID PRN 04/12/20 05/09/20 Olopatadine HCl [Pataday] 1 drops EACHEYE DAILY PRN 04/12/20 05/09/20 guaiFENesin [Robafen] 2 tsp PO QID PRN 04/12/20 05/09/20 traZODone [Desyrel] 200 mg PO QPM 04/12/20 05/09/20 - Allergies Allergies/Adverse Reactions: Allergies Allergy/AdvReac Type Severity Reaction Status Date / Time Penicillins Allergy Unknown Verified 07/03/20 17:00 - Social History Does the pt smoke?: No Smoking Status: Never smoker Does the pt drink ETOH?: No Does the pt have substance abuse?: No - Immunizations Immunizations are current?: Yes Immunizations: TDAP >10years/unknown - POLST Patient has POLST: No POLST Status: Full Code PD ED PE NORMAL - Vitals Vital signs reviewed: Yes (normal ) - General General: No acute distress, Well developed/nourished, Other (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 ) - Neuro Neuro: hammer heater 2-12 intact, No motor deficit, No sensory deficit, Normal speech Eye Opening: Spontaneous Motor: Obeys Commands Verbal: Confused GCS Score: 14 - Psych Psych: Normal mood, Normal affect Results - Vitals Vitals: Vital Signs - 24 hr 07/03/20 07/03/20 17:00 18:00 Temperature 37.0 C Heart Rate 71 66 Respiratory 16 18 Rate Blood Pressure 122/69 130/99 H O2 Saturation 97 100 Oxygen O2 Source Room air - Labs Labs: Laboratory Tests 07/03/20 07/03/20 07/03/20 17:41 17:41 17:45 WBC 4.5 L RBC 3.88 L Hgb 12.1 Hct 39.2 MCV 101.0 H MCH 31.2 H MCHC 30.9 L RDW 13.3 Plt Count 140 MPV 10.9 H Neut # (Auto) 2.9 Lymph # (Auto) 1.2 L [place] # (Auto) 0.3 Eos # (Auto) 0.1 Baso # (Auto) 0.0 Absolute Nucleated RBC 0.00 Nucleated RBC % 0.0 Sodium 143 Potassium 4.0 Chloride 104 Carbon Dioxide 29 Anion Gap 10.0 BUN 22 H Creatinine 1.1 H Estimated GFR (MDRD) 48 L Glucose 93 Calcium 8.8 Total Bilirubin 0.7 AST 21 ALT 15 Alkaline Phosphatase 66 Total Protein 6.4 L Albumin 3.7 Globulin 2.7 Albumin/Globulin Ratio 1.4 Lipase 50 Urine Color YELLOW Urine Clarity CLEAR Urine pH 7.0 Ur Specific [place] 1.010 Urine Protein NEGATIVE Urine Glucose (UA) NEGATIVE Urine Ketones NEGATIVE Urine Occult Blood NEGATIVE Urine Nitrite NEGATIVE Urine Bilirubin NEGATIVE Urine Urobilinogen 0.2 (NORMAL) Ur Leukocyte Esterase TRACE H Urine RBC None Seen Urine WBC 4-5 Ur Squamous Epith Cells NONE SEEN Urine Bacteria None Seen Ur Microscopic Review INDICATED Urine Culture Comments INDICATED - Rads (name of study) chest Radiology: Prelim report reviewed (Impression: Chronic interstitial reticulations in both lungs. No acute airspace opacity is seen.), EMP read indepedently, See rad report knee Radiology: Prelim report reviewed (Impression: 1. No acute osseous abnormality. If symptoms persist with conservative management, further evaluation with CT or MRI may be obtained. 2 yes chronic lateral subluxation of the patella with severe degenerative changes in the anterior compartment.), EMP read indepedently, See rad report PD MEDICAL DECISION MAKING - ED course Complexity details: reviewed results, re-evaluated patient, considered differential, d/w patient, d/w family ED course: 80 year-old female with a history of developmental delay and schizophrenia has developed weakness over the past 2 weeks and is refusing to bear weight. Her caregivers are unable to care for her in this fashion. They are concerned about the possibility of urinary tract infection. The patient complains of pain in the right knee. The caregiver states that she is always complains of pain in the right knee and she is recently been placed on some meloxicam which did help. The caregiver indicates that they have taken her into the doctor for evaluation of the urine which was clear and the culture came back clear as well and today she is come in we were concerned about urinary tract infection as well and this was not present. She was administered saline as she did appear dehydrated and this did not help much. She does have significant arthritis in her right knee and she is given a dose of dexamethasone and we will attempt to get her up to walk. We did not find other overwhelming findings on laboratory evaluation. She will need a road test after her dexamethasone has some effect and her care is turned over to Dr. De Santiago at shift change.
[2020-07-03 17:48] LABS: BASOPHILS % (AUTO) 0.4 %; EOSINOPHILS # (AUTO) 0.1 10^3/uL (0.0-0.7); EOSINOPHILS % (AUTO) 1.8 %; HGB - HEMOGLOBIN 12.1 g/dL (12.0-16.0); LYMPHOCYTES # (AUTO) 1.2 10^3/uL (1.5-3.5); LYMPHOCYTES % (AUTO) 26.5 %; MEAN CORPUSCULAR HEMOGLOBIN 31.2 pg (27.0-31.0); MEAN CORPUSCULAR HGB CONC 30.9 g/dL (32.0-36.0); MEAN PLATELET VOLUME 10.9 fL (7.9-10.8); MONOCYTES # (AUTO) 0.3 10^3/uL (0.0-1.0); MONOCYTES % (AUTO) 6.4 %; NEUTROPHILS # (AUTO) 2.9 10^3/uL (1.5-6.6); NEUTROPHILS % (AUTO) 64.7 %; PLT - PLATELET COUNT 140 10^3/uL (130-450); RED BLOOD COUNT 3.88 10^6/uL (4.20-5.40); RED CELL DISTRIBUTION WIDTH 13.3 % (12.0-15.0); WHITE BLOOD COUNT 4.5 x10^3/uL (4.8-10.8)
[2020-07-03 18:01] LABS: ALBUMIN 3.7 g/dL (3.2-5.5); ALBUMIN/GLOBULIN RATIO 1.4 (1.0-2.2); BILIRUBIN,TOTAL 0.7 mg/dL (0.2-1.0); CALCIUM 8.8 mg/dL (8.5-10.3); CREATININE 1.1 mg/dL (0.4-1.0); TOTAL PROTEIN 6.4 g/dL (6.7-8.2)
[2020-07-03 18:08] LABS: BILIRUBIN,URINE NEGATIVE (NEGATIVE); CLARITY,URINE CLEAR (CLEAR); GLUCOSE, URINE (UA) NEGATIVE (NEGATIVE); KETONES,URINE (UA) NEGATIVE (NEGATIVE); LEUKOCYTE ESTERASE, URINE TRACE (NEGATIVE); NITRITE,URINE NEGATIVE (NEGATIVE); OCCULT BLOOD,URINE NEGATIVE (NEGATIVE); PROTEIN,URINE NEGATIVE (NEGATIVE); UROBILINOGEN,URINE 0.2 (NORMAL) E.U./dL (NORMAL)
[2020-07-03 18:27] LABS: BACTERIA,URINE None Seen /HPF (None Seen); RBC,URINE None Seen /HPF (0-5); SQUAMOUS EPITHELIAL CELL,UR NONE SEEN (<= Few)
[2020-07-03] MEDS ORDERED: SODIUM CHLORIDE 0.9% 1,000 ML IV STA (18:29)
--- NOTE | 2020-07-03 19:14 | XRAY Report ---
PROCEDURE: Chest 1 View X-Ray INDICATIONS: chest pain TECHNIQUE: One view of the chest was acquired. COMPARISON: Chest radiograph 02/18/2020 FINDINGS: Surgical changes and devices: None. Lungs and pleura: No pleural effusions or pneumothorax. Chronic interstitial markings are seen in cleve th lungs without acute consolidation. Mediastinum: Mediastinal contours appear normal. Heart size is normal. Bones and chest wall: No suspicious bony lesions. Overlying soft tissues appear unremarkable. IMPRESSION: Chronic interstitial reticulations in both lungs. No acute airspace opacity is seen. Reviewed by: Tony Denney MD on 07/03/2020 7:13 PM PDT Approved by: Tony Denney MD on 07/03/2020 7:13 PM PDT Station ID: [id number]
[2020-07-03] MEDS ORDERED: DEXAMETHASONE 10 MG/ML VIAL IVP STA (19:16)
--- NOTE | 2020-07-03 19:17 | XRAY Report ---
PROCEDURE: Knee 4 View RT INDICATIONS: pain in knee TECHNIQUE: 4 views of the right knee were acquired. COMPARISON: Right knee radiographs dated 02/19/2020 FINDINGS: Bones: There is generalized osteopenia. No acute fractures. No suspicious bony lesions. There is c hronic-appearing lateral subluxation of the patella relative to the trochlear groove with severe dege nerative changes in the anterior compartment including full-thickness joint space narrowing, subchond ral sclerosis, marginal osteophyte formation. Soft tissues: No joint effusion. Chondrocalcinosis is seen in the medial and lateral femorotibial co mpartments. IMPRESSION: 1. No acute osseous abnormality. If symptoms persist with conservative management, further evaluatio n with CT or MRI may be obtained. 2. Chronic lateral subluxation of the patella with severe degenerative changes in the anterior kamryn rtment. Reviewed by: Tony Denney MD on 07/03/2020 7:16 PM PDT Approved by: Tony Denney MD on 07/03/2020 7:16 PM PDT Station ID: [id number]
[2020-07-03] MEDS ORDERED: NITROFURANTOIN MACRO 100 MG CAPSULE PO STA (19:56)
--- NOTE | 2020-07-03 20:17 | ED Physician Documentation ---
History of Present Illness - Stated complaint Stated Complaint: WEAKNESS - Chief complaint Chief Complaint: General - History obtained from History obtained from: Patient - Additonal information Additional information: patient signed out to me at shift change by dr tiff levy. please see separate note for complete history and physical. Review of Systems Constitutional: reports: Reviewed and negative Eyes: reports: Reviewed and negative Ears: reports: Reviewed and negative Nose: reports: Reviewed and negative Throat: reports: Reviewed and negative Cardiac: reports: Reviewed and negative Respiratory: reports: Reviewed and negative GI: reports: Reviewed and negative : reports: Frequency Skin: reports: Reviewed and negative Musculoskeletal: reports: Reviewed and negative Neurologic: reports: Generalized weakness Psychiatric: reports: Reviewed and negative Endocrine: reports: Reviewed and negative Immunocompromised: reports: Reviewed and negative PD PAST MEDICAL HISTORY - Past Medical History Cardiovascular: None, Hypertension, Deep vein thrombosis, Pulmonary embolism Respiratory: None Neuro: Dementia, Other Endocrine/Autoimmune: HyPOthyroidism GI: Chronic constipation : None Psych: Anxiety, Schizophrenia Musculoskeletal: Osteoarthritis, Gout, Other Derm: Psoriasis - Past Surgical History Past Surgical History: No HEENT: Cataracts - Present Medications Home Medications: Ambulatory Orders Medication Instructions Recorded Confirmed Levothyroxine [Synthroid] 75 mcg PO QDAC 07/22/19 05/09/20 Simvastatin [Zocor] 20 mg PO QPM 07/22/19 05/09/20 Torsemide 40 mg PO BID 07/22/19 05/09/20 Potassium Chloride 10 meq PO BIDWM 01/11/20 05/09/20 Acetaminophen 500 mg PO TID PRN 02/18/20 05/09/20 Ascorbic Acid 500 mg PO DAILY 02/18/20 05/09/20 Docusate Sodium 250Mg Capsule 250 mg PO DAILY 02/18/20 05/09/20 [Colace 250Mg Capsule] Warfarin Sodium 2.5 mg PO MOWEFR@1400 02/18/20 05/09/20 Warfarin Sodium 5 mg PO SUTUTHSA@1400 02/18/20 05/09/20 risperiDONE [Risperdal] 3 mg PO BID 02/18/20 05/09/20 carvediloL [Coreg] 3.125 mg PO BID #60 tablet 02/22/20 05/09/20 Diclofenac Sodium [Voltaren] 2 - 4 mg TOP PRN PRN 04/12/20 05/09/20 EPINEPHrine [Epipen Jr] 0.3 mg IM DAILY PRN 04/12/20 05/09/20 Fluticasone [Flonase] 1 - 2 spray BÁRBARA BID 04/12/20 05/09/20 Hydrocortisone Acet/Aloe Vera 1 applic TD BID PRN 04/12/20 05/09/20 [Nucort Lotion] Ketoconazole [Nizoral] 1 applic TOP TID PRN 04/12/20 05/09/20 Olopatadine HCl [Pataday] 1 drops EACHEYE DAILY PRN 04/12/20 05/09/20 guaiFENesin [Robafen] 2 tsp PO QID PRN 04/12/20 05/09/20 traZODone [Desyrel] 200 mg PO QPM 04/12/20 05/09/20 Nitrofurantoin [Macrobid] 100 mg PO BID 5 Days #9 capsule 07/03/20 - Allergies Allergies/Adverse Reactions: Allergies Allergy/AdvReac Type Severity Reaction Status Date / Time Penicillins Allergy Unknown Verified 07/03/20 17:00 - Social History Does the pt smoke?: No Smoking Status: Never smoker Does the pt drink ETOH?: No Does the pt have substance abuse?: No - Immunizations Immunizations are current?: Yes Immunizations: TDAP >10years/unknown - POLST Patient has POLST: No POLST Status: Full Code PD ED PE NORMAL - Vitals Vital signs reviewed: Yes - General General: Alert and oriented X 3, No acute distress - HEENT HEENT: PERRL - Neck Neck: Supple, no meningeal sign - Cardiac Cardiac: RRR, No murmur - Respiratory Respiratory: Clear bilaterally - Abdomen Abdomen: Normal bowel sounds, Soft, Non tender, Non distended - Derm Derm: Warm and dry - Extremities Extremities: No deformity - Neuro Neuro: Alert and oriented X 3 - Psych Psych: Normal mood, Normal affect Results - Vitals Vitals: Vital Signs - 24 hr 07/03/20 07/03/20 17:00 18:00 Temperature 37.0 C Heart Rate 71 66 Respiratory 16 18 Rate Blood Pressure 122/69 130/99 H O2 Saturation 97 100 Oxygen O2 Source Room air - Labs Labs: Laboratory Tests 07/03/20 07/03/20 07/03/20 17:41 17:41 17:45 WBC 4.5 L RBC 3.88 L Hgb 12.1 Hct 39.2 MCV 101.0 H MCH 31.2 H MCHC 30.9 L RDW 13.3 Plt Count 140 MPV 10.9 H Neut # (Auto) 2.9 Lymph # (Auto) 1.2 L [place] # (Auto) 0.3 Eos # (Auto) 0.1 Baso # (Auto) 0.0 Absolute Nucleated RBC 0.00 Nucleated RBC % 0.0 Sodium 143 Potassium 4.0 Chloride 104 Carbon Dioxide 29 Anion Gap 10.0 BUN 22 H Creatinine 1.1 H Estimated GFR (MDRD) 48 L Glucose 93 Calcium 8.8 Total Bilirubin 0.7 AST 21 ALT 15 Alkaline Phosphatase 66 Total Protein 6.4 L Albumin 3.7 Globulin 2.7 Albumin/Globulin Ratio 1.4 Lipase 50 Urine Color YELLOW Urine Clarity CLEAR Urine pH 7.0 Ur Specific [place] 1.010 Urine Protein NEGATIVE Urine Glucose (UA) NEGATIVE Urine Ketones NEGATIVE Urine Occult Blood NEGATIVE Urine Nitrite NEGATIVE Urine Bilirubin NEGATIVE Urine Urobilinogen 0.2 (NORMAL) Ur Leukocyte Esterase TRACE H Urine RBC None Seen Urine WBC 4-5 Ur Squamous Epith Cells NONE SEEN Urine Bacteria None Seen Ur Microscopic Review INDICATED Urine Culture Comments INDICATED PD MEDICAL DECISION MAKING - ED course ED course: patient signed out to me at shift change by dr. levy. ua is positive for LE and WBC, patient indicates some urinary frequency and mild dysuria. will initiate treatment with macrobid. patient will need to follow up with her doctor this week. ua will be sent for culture. patient able to ambulate with walker per baseline. patient has a home health care provider. Departure - Departure Disposition: Home, Self Care Clinical Impression: UTI (urinary tract infection) Qualifiers: Urinary tract infection type: acute cystitis Hematuria presence: without hematuria Qualified Code(s): N30.00 - Acute cystitis without hematuria Condition: Stable Instructions: ED UTI Cystitis Female Follow-Up: YOUR, DOCTOR [Other] Prescriptions: Nitrofurantoin [Macrobid] 100 mg PO BID 5 Days #9 capsule Comments: Your urinalysis is concerning for infection, you are being provided a prescription for an antibiotic called nitrofurantoin. Follow up with your doctor this week for a recheck.
[2020-07-03 21:11] VITALS: BP 116/80
== END 2020-07-03 21:33 | disposition home or self-care (01) ==
LOC: ED 16:57
DX: N30.00 Acute cystitis without hematuria (principal)
CPT/HCPCS: 36415; 71045; 73564; 80053; 81001; 83690; 85025; 87086; 87181; 96361; 96374; 99283; 99284; A9270; 81003

== ENCOUNTER 2020-08-21 12:51 | Outpatient (CLI) | payer MEDICARE, MEDICAID ==
--- NOTE | 2020-08-21 13:45 | Ultrasound Report ---
PROCEDURE: Duplex Ext Veins Left INDICATIONS: RECURRENT CELLULITIS,EDEMA TECHNIQUE: Real-time imaging, as well as color and pulse Doppler interrogation, were performed of the lower extr emity deep veins from the inguinal ligament to the popliteal fossa. COMPARISON: None. FINDINGS: The deep veins are normally compressible, and free of intraluminal thrombus. Color and pu lse Doppler demonstrate normal phasic intraluminal flow. There is normal augmentation response to di stal compression maneuver. Nonocclusive thrombus is identified in the proximal greater saphenous vein of the superficial venous system. IMPRESSION: 1. No evidence of thrombosis involving the left lower extremity deep venous system. 2. Nonocclusive thrombus involving the proximal greater saphenous vein in the left lower extremity muhammad perficial venous system. Reviewed by: Leni Hernández MD, PhD on 08/21/2020 1:43 PM PST Approved by: Leni Hernández MD, PhD on 08/21/2020 1:43 PM PST Station ID: [id number]
== END 2020-08-21 12:52 | disposition home or self-care (01) ==
LOC: DI 12:51
PROVIDERS: ATTEND Internal Medicine
DX: I82.812 Embolism and thrombosis of superficial veins of left lower extremity (principal); L03.90 Cellulitis, unspecified; R60.9 Edema, unspecified

== ENCOUNTER 2020-10-16 13:10 | Outpatient (CLI) | payer MEDICARE, MEDICAID ==
--- NOTE | 2020-10-16 14:57 | XRAY Report ---
PROCEDURE: Chest 2 View X-Ray INDICATIONS: COUGH TECHNIQUE: 2 view(s) of the chest. COMPARISON: None. FINDINGS: Surgical changes and devices: None. Lungs and pleura: Increased conspicuity of diffuse interstitial prominence with new bilateral pleural effusions larger on the right. There is suggestion of vascular congestion. No focal consolidation or pneumothorax seen. Lung lungs are slightly diminished Mediastinum: Mediastinal contours are stable. Heart size is prominent. Bones and chest wall: No suspicious bony abnormalities. Soft tissues appear unremarkable. IMPRESSION: Findings suggestive of developing pulmonary edema given bilateral pleural effusions, mild cardiomegal y, interstitial prominence, and mild vascular congestion. However, concurrent infectious/inflammatory process not excluded if clinically appropriate. Reviewed by: Anibal Higgins MD on 10/16/2020 2:56 PM PST Approved by: Anibal Higgins MD on 10/16/2020 2:56 PM PST Station ID: [id number]
== END 2020-10-16 13:11 | disposition home or self-care (01) ==
LOC: DI 13:10
PROVIDERS: ATTEND Internal Medicine
DX: R05 Cough (principal); J90 Pleural effusion, not elsewhere classified; I51.7 Cardiomegaly

== ENCOUNTER 2020-10-20 19:11 | Outpatient (CLI) | payer MEDICARE, MEDICAID | END 2020-10-20 19:12 | disposition critical access hospital (66) | LOC: EMS 19:11 | PROVIDERS: ATTEND Surgery | DX: R06.00 Dyspnea, unspecified (principal) | CPT/HCPCS: A0425; A0427 ==

== ENCOUNTER 2020-10-20 19:20 | Inpatient (IN) | payer MEDICARE, MEDICAID ==
--- NOTE | 2020-10-20 19:29 | ED Physician Documentation ---
PD HPI DYSPNEA - Stated complaint Stated Complaint: SOA - Chief complaint Chief Complaint: Resp - History obtained from History obtained from: Patient, EMS - Additional information Additional information: This is a 80-year-old woman who presents by ambulance from [facility] where she resides due to developmental delay. Reportedly has been having trouble with shortness of breath and had a chest x-ray done about 3 or 4 days ago showing mild pulmonary edema. At that time her torsemide was increased from 20 mg a day to 40 mg a day. Despite that she is continued to worsen with more shortness of breath and no increase in urinary output. Paramedics were summoned tonight and noted her pulse oximetry to be 80% while supine which came up to 92% upright and 95% on a 2 L nasal cannula. No history is really available from the patient due to her developmental delay. Her only complaint is knee pain which evidently is a chronic complaint. I did review the chart, her last admission was in January of last year for a UTI, elevated troponin, and some pulmonary edema. She had an echocardiogram A month prior to that showing EF of 65 to 70% with mildly abnormal right heart pressures and mild tricuspid regurgitation. Review of Systems Unable to obtain: AMS PD PAST MEDICAL HISTORY - Past Medical History Cardiovascular: None, Hypertension, Deep vein thrombosis, Pulmonary embolism Respiratory: None Neuro: Dementia, Other Endocrine/Autoimmune: HyPOthyroidism GI: Chronic constipation : None Psych: Anxiety, Schizophrenia Musculoskeletal: Osteoarthritis, Gout, Other Derm: Psoriasis - Past Surgical History Past Surgical History: No HEENT: Cataracts - Present Medications Home Medications: Ambulatory Orders Medication Instructions Recorded Confirmed Levothyroxine [Synthroid] 75 mcg PO QDAC 07/22/19 05/09/20 Simvastatin [Zocor] 20 mg PO QPM 07/22/19 05/09/20 Torsemide 40 mg PO BID 07/22/19 05/09/20 Potassium Chloride 10 meq PO BIDWM 01/11/20 05/09/20 Acetaminophen 500 mg PO TID PRN 02/18/20 05/09/20 Ascorbic Acid 500 mg PO DAILY 02/18/20 05/09/20 Docusate Sodium 250Mg Capsule 250 mg PO DAILY 02/18/20 05/09/20 [Colace 250Mg Capsule] Warfarin Sodium 2.5 mg PO MOWEFR@1400 02/18/20 05/09/20 Warfarin Sodium 5 mg PO SUTUTHSA@1400 02/18/20 05/09/20 risperiDONE [Risperdal] 3 mg PO BID 02/18/20 05/09/20 carvediloL [Coreg] 3.125 mg PO BID #60 tablet 02/22/20 05/09/20 Diclofenac Sodium [Voltaren] 2 - 4 mg TOP PRN PRN 04/12/20 05/09/20 EPINEPHrine [Epipen Jr] 0.3 mg IM DAILY PRN 04/12/20 05/09/20 Fluticasone [Flonase] 1 - 2 spray BÁRBARA BID 04/12/20 05/09/20 Hydrocortisone Acet/Aloe Vera 1 applic TD BID PRN 04/12/20 05/09/20 [Nucort Lotion] Ketoconazole [Nizoral] 1 applic TOP TID PRN 04/12/20 05/09/20 Olopatadine HCl [Pataday] 1 drops EACHEYE DAILY PRN 04/12/20 05/09/20 guaiFENesin [Robafen] 2 tsp PO QID PRN 04/12/20 05/09/20 traZODone [Desyrel] 200 mg PO QPM 04/12/20 05/09/20 Nitrofurantoin [Macrobid] 100 mg PO BID 5 Days #9 capsule 07/03/20 - Allergies Allergies/Adverse Reactions: Allergies Allergy/AdvReac Type Severity Reaction Status Date / Time Penicillins Allergy Unknown Verified 10/20/20 19:38 - Social History Does the pt smoke?: No Smoking Status: Never smoker Does the pt drink ETOH?: No Does the pt have substance abuse?: No - Immunizations Immunizations are current?: Yes Immunizations: TDAP >10years/unknown - POLST Patient has POLST: No POLST Status: Full Code PD ED PE NORMAL - Vitals Vital signs reviewed: Yes - General General: Other (She is alert and is able to say her name, she does not give any other history.) - HEENT HEENT: Other (Exotropia on the right) - Neck Neck: Supple, no meningeal sign, No bony TTP - Cardiac Cardiac: Other (Irregularly irregular without murmur) - Respiratory Respiratory: No respiratory distress, Other (Quite diminished at both bases) - Abdomen Abdomen: Non tender - Back Back: No CVA TTP, No spinal TTP - Derm Derm: Normal color, Warm and dry - Extremities Extremities: Other (Legs are in wraps, do not look grossly edematous.) - Neuro Eye Opening: Spontaneous Motor: Obeys Commands Verbal: Incomprehensible GCS Score: 12 Results - Vitals Vitals: Vital Signs - 24 hr 10/20/20 19:20 Temperature 35.7 C L Heart Rate 79 Respiratory 21 Rate Blood Pressure 102/50 L O2 Saturation 96 Oxygen O2 Source Nasal cannula Oxygen Flow Rate 2 - EKG (time done) 1924 Rate: Rate (enter#) (74) Rhythm: Atrial fibrillation [place]: Normal Intervals: Other (comuter reads QTC 703 but Q-T < 1/2 R-R) QRS: Low voltage Ischemia: No: ST elevation c/w ischemia, ST depression - Labs Labs: Laboratory Tests 10/20/20 10/20/20 10/20/20 19:32 19:32 19:32 WBC 4.1 L RBC 3.85 L Hgb 11.8 L Hct 38.4 MCV 99.7 H MCH 30.6 MCHC 30.7 L RDW 16.9 H Plt Count 129 L MPV 11.1 H Neut # (Auto) 2.7 Lymph # (Auto) 1.1 L [place] # (Auto) 0.3 Eos # (Auto) 0.1 Baso # (Auto) 0.0 Absolute Nucleated RBC 0.00 Nucleated RBC % 0.0 PT 12.6 INR 1.1 Sodium 144 Potassium 3.9 Chloride 100 L Carbon Dioxide 33 H Anion Gap 11.0 BUN 24 H Creatinine 1.3 H Estimated GFR (MDRD) 40 L Glucose 123 H Calcium 8.8 Magnesium 1.7 Total Bilirubin 0.5 AST 23 ALT 21 Alkaline Phosphatase 114 Troponin I High Sens B-Natriuretic Peptide Total Protein 6.4 L Albumin 3.2 Globulin 3.2 Albumin/Globulin Ratio 1.0 10/20/20 10/20/20 19:32 19:36 WBC RBC Hgb Hct MCV MCH MCHC RDW Plt Count MPV Neut # (Auto) Lymph # (Auto) [place] # (Auto) Eos # (Auto) Baso # (Auto) Absolute Nucleated RBC Nucleated RBC % PT INR Sodium Potassium Chloride Carbon Dioxide Anion Gap BUN Creatinine Estimated GFR (MDRD) Glucose Calcium Magnesium Total Bilirubin AST ALT Alkaline Phosphatase Troponin I High Sens 180.2 H* B-Natriuretic Peptide 222 H Total Protein Albumin Globulin Albumin/Globulin Ratio - Rads (name of study) 1v chest Radiology: EMP read contemporaneously (Increased pulmonary edema with moderate right pleural effusion and small left pleural effusion with bibasilar compressive atelectasis or consolidation.) PD MEDICAL DECISION MAKING - ED course ED course: [employer] respiratory panel ordered to rapidly test specifically for COVID-19 in this patient who is expected to be hospitalized 80-year-old woman presents with shortness of breath, clinically consistent with CHF based on the x-ray and exam. BNP is elevated as is her troponin modestly. This looks very similar to admission in January of last year. At that time her echocardiogram was not too remarkable. She has blood pressures here that would not forgive nitrates and as such she was only given Lasix. Also aspirin. Spoke with Dr. Pang for admission at 8:15 PM. Spoke with Vanessa Bello her POA/caregiver by phone at [phone]. Confirmed full code status. Departure - Departure Disposition: 66 [facility] DC/Xfer Clinical Impression: Elevated troponin I measurement Pulmonary edema Qualifiers: Chronicity: acute Qualified Code(s): J81.0 - Acute pulmonary edema Condition: Serious
[2020-10-20 19:39] LABS: BASOPHILS % (AUTO) 0.2 %; EOSINOPHILS # (AUTO) 0.1 10^3/uL (0.0-0.7); EOSINOPHILS % (AUTO) 1.2 %; HGB - HEMOGLOBIN 11.8 g/dL (12.0-16.0); LYMPHOCYTES # (AUTO) 1.1 10^3/uL (1.5-3.5); LYMPHOCYTES % (AUTO) 26.6 %; MEAN CORPUSCULAR HEMOGLOBIN 30.6 pg (27.0-31.0); MEAN CORPUSCULAR HGB CONC 30.7 g/dL (32.0-36.0); MEAN CORPUSCULAR VOLUME 99.7 fL (81.0-99.0); MEAN PLATELET VOLUME 11.1 fL (7.9-10.8); MONOCYTES # (AUTO) 0.3 10^3/uL (0.0-1.0); MONOCYTES % (AUTO) 6.8 %; NEUTROPHILS # (AUTO) 2.7 10^3/uL (1.5-6.6); NEUTROPHILS % (AUTO) 64.2 %; PLT - PLATELET COUNT 129 10^3/uL (130-450); RED BLOOD COUNT 3.85 10^6/uL (4.20-5.40); RED CELL DISTRIBUTION WIDTH 16.9 % (12.0-15.0); WHITE BLOOD COUNT 4.1 x10^3/uL (4.8-10.8)
[2020-10-20 19:46] LABS: INR 1.1 (0.8-1.2); PT - PROTHROMBIN TIME 12.6 secs (9.9-12.6)
[2020-10-20 19:57] LABS: ALBUMIN 3.2 g/dL (3.2-5.5); BILIRUBIN,TOTAL 0.5 mg/dL (0.2-1.0); CALCIUM 8.8 mg/dL (8.5-10.3); CREATININE 1.3 mg/dL (0.4-1.0); MAGNESIUM 1.7 mg/dL (1.7-2.8); TOTAL PROTEIN 6.4 g/dL (6.7-8.2)
--- NOTE | 2020-10-20 20:07 | XRAY Report ---
PROCEDURE: Chest 1 View X-Ray INDICATIONS: dyspnea TECHNIQUE: One view of the chest was acquired. COMPARISON: 10/16/2020, 07/03/2020. FINDINGS: Surgical changes and devices: None. Lungs and pleura: There is increased pulmonary edema bilaterally. There is interval increase in a mo derate right pleural effusion. There is a persistent small left effusion. Persistent bibasilar opacit ies consistent with compressive atelectasis or consolidation are demonstrated. No evidence of pneumot horax. Mediastinum: Mediastinal contours appear unchanged. Heart size is enlarged. Bones and chest wall: No suspicious bony lesions. Overlying soft tissues appear unremarkable. IMPRESSION: 1. Increased pulmonary edema. 2. Increased moderate right pleural effusion and persistent small left effusion. 3. Persistent bibasilar compressive atelectasis or consolidation. Reviewed by: Félix Limon MD on 10/20/2020 8:06 PM PST Approved by: Félix Limon MD on 10/20/2020 8:06 PM PST Station ID: [id number]
[2020-10-20] MEDS ORDERED: FUROSEMIDE 40 MG/4 ML VIAL IVP STA (20:09)
[2020-10-20] MEDS ORDERED: ASPIRIN CHEW 81 MG TABLET PO STA (20:11)
[2020-10-20] MEDS ORDERED: ASPIRIN 300 MG SUPP PR STA (20:20)
[2020-10-20] MEDS ORDERED: oxyCODONE 5 MG TABLET PO PRN (20:36)
[2020-10-20] MEDS ORDERED: ONDANSETRON ODT 4 MG TABLET TL PRN (20:36)
[2020-10-20] MEDS ORDERED: ACETAMINOPHEN 325 MG TABLET PO PRN (20:36)
[2020-10-20] MEDS ORDERED: SODIUM CHLORIDE FLUSH 0.9% 10 ML SYRINGE IVP PRN (20:36)
[2020-10-20] MEDS ORDERED: ONDANSETRON 4 MG/2 ML VIAL IVP PRN (20:36)
[2020-10-20] MEDS ORDERED: traZODone 50 MG TABLET PO SCH (21:00)
[2020-10-20 21:20] LABS: C. PNEUMONIAE- RESP PCR PANEL NOT DETECTED
[2020-10-20] MEDS: risperiDONE 1 MG TABLET PO SCH (22:04)
[2020-10-20] MEDS: FUROSEMIDE 40 MG/4 ML VIAL IVP SCH (22:04)
--- NOTE | 2020-10-20 22:05 | HISTORY & PHYSICAL EXAMINATION ---
Chief Complaint - Chief Complaint Chief Complaint: shortness of breath History of Present Illness - Admitted From Admitted From:: [facility] - History Obtained From Records Reviewed: [facility] History obtained from: Dr. Hwang Exam Limitations: pt has cognitive deficits - History of Present Illness HPI Comment/Other: This is a 80-year-old white female who lives at [facility] for 21 years due to developmental delay. She was last admitted in January 2020 here for a UTI complicated by elevated troponins. Troponins peaked at over 400 and then went back down. EKG showed flattened T waves. Echocardiogram showed overall left ventricular systolic function that is normal with ejection fraction 55 to 60%. No regional wall motion abnormalities. Impaired relaxation consistent with grade 1 diastolic dysfunction. New biatrial enlargement seen. No significant valvular heart disease. Echocardiogram 1 month prior to her January admission was in December 2019. Her ejection fraction was 65 to 70%. No regional wall motion abnormalities. Right ventricle normal. RVSP was 43 mmHg. She was in sinus rhythm with the December 2019 echo, in the January 2020 echo. EKGs with the January 2020 admission were also sinus rhythm. At that time, she was seen in follow-up with cardiology. They felt that "she had the heart of a 80-year-old" and that there was no cause for worry or alarm. Coreg was stopped. She had already been on Lasix because of chronic leg edema. Subsequent to this, they evaluated the need for Lasix for leg edema. Also the evaluated the need for continuous anticoagulation in the face of a DVT and PE from 21 years ago. 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 They postulated that she developed a DVT with PE because of the new sedentary lifestyle. She been on Coumadin from that point on. However, she had significant knee pain that was really bothersome and was unable to take anything but Tylenol for pain control. They opted to take her off the Coumadin so that this would allow her to do nonsteroidal therapy to control her knee pain. She was not felt to need lifelong anticoagulation. They were also hoping to help her recurrent UTIs. Because of the knee pain she was having less and less ambulation and she was becoming incontinent of urine or not wanting to go pee. So she was getting recurrent UTIs. It also does not help that she hates to drink water. All sorts of things to try to get her to drink water. She refuses so they have been giving her lots of Pedialyte. The leg edema was diagnosed as lymphedema and she underwent lymphedema therapy with leg wraps, compression hose. She ended up on chronic Velcro wraps. And because her legs were doing so well the Lasix was discontinued. Her care provider postulates that the leg wraps were compressing the fluid out of her legs into her upper legs and her lower abdominal wall. Her lower abdominal wall seems to be developing edema as well. The edema then progressed to her legs. She seemed to be having recurrence of leg edema. She was not feeling well. Lasix 20 mg was started. Then a few days ago she was seen by her provider where a chest x-ray showed pulmonary edema and it was increased to 40 mg. In spite of that she did not have increased urine output. Usually she seems to be sensitive to diuretics and will pee quite a bit. With this she did not have improved output. Edema and shortness of breath finally got to the point that shortness of breath was getting worse and worse. Torsemide was increased from 20 to 40 mg a day. Torsemide is listed. But the caregiver keeps on saying that it was Lasix. Despite this treatment intervention, she continued to have shortness of breath. EMS was called [facility] and her pulse oximetry was 80% while supine. Came up to 92% when she was u pright. 95% on 2 L nasal cannula. In the emergency room she was able to say her name but unable to give any other history because of her developmental delay. Temperature was 35.7, heart rate 79, respiration 21, blood pressure 102/50 and 96% saturated on 2 L. She had exotropia of the right eye. No JVD. An irregularly irregular heart rate without murmur. No respiratory distress with very diminished breath sounds at the bases. No use of accessory muscles and no respiratory distress. Legs were not edematous. EKG had atrial fibrillation her CBC was at baseline anemia with hemoglobin 11.8. Troponin was 180.2. BNP 222. Chest x-ray had increased pulmonary edema with moderate right pleural effusion and small left pleural effusion. She was treated with Lasix, but nitrites were not used because of her low blood pressure. Aspirin was also given. She is a full CODE STATUS. With her last admission with the same presentation she was here for over 2 midnights. As such she will be placed as an inpatient. History - Past Medical History Cardiovascular: reports: Congestive heart failure (diastolic on ECHO), Hypertension, Deep vein thrombosis (1998), Pulmonary embolism (1998) Respiratory: reports: None Neuro: reports: Dementia, Other Endocrine/Autoimmune: reports: HyPOthyroidism GI: reports: Chronic constipation DELIVERY NURSE: reports: Other () : reports: Incontinence, Chronic bladder infection Psych: reports: Anxiety, Schizophrenia Musculoskeletal: reports: Osteoarthritis, Gout, Other Derm: reports: Psoriasis MRSA Hx?: No - Past Surgical History HEENT: reports: Cataracts - Family & Social History Family History Comment/Other: History obtained from her caregiver. Mom around age 97-98 of old age. Dad was not known by the caregiver so she does not know what he of. She has 2 sisters. One in [place] and one in [place]. Both are regarded as healthy. No children Living arrangement: [facility] Living Situation: With caregiver(s) Social History Notes: She lives on a farm with her mother all of her life until 1998. Mom at the age of 98-99. She then went to live in a half-way. She has never smoked, never drank, and never had a problem with recreational substance abuse. However, she has cocaine toxicity and methamphetamine abuse noted in her problem list here. She has been at the half-way for 21 years. There is no power of disability attorney. The last power of disability attorney this patient had was her mother. Since there has been no major medical decisions or financial decisions that have changed in the last 21 years, neither sister has assumed that role. The caregiver is Vanessa Bello at [phone]. She lives next door to the half-way and sees this patient on a daily basis, several hours at a time. - Substance History Use: Uses substance without health or social issues: NONE Abuse: Recurrent use of substance despite neg consequences: NONE Dependence: Experiences withdrawal or developed tolerances: NONE - POLST Patient has POLST: No POLST Status: Full Code Meds/Allgy - Home Medications Home Medications: Ambulatory Orders Medication Instructions Recorded Confirmed Levothyroxine [Synthroid] 75 mcg PO QDAC 07/22/19 05/09/20 Simvastatin [Zocor] 20 mg PO QPM 07/22/19 05/09/20 Torsemide 40 mg PO BID 07/22/19 05/09/20 Potassium Chloride 10 meq PO BIDWM 01/11/20 05/09/20 Acetaminophen 500 mg PO TID PRN 02/18/20 05/09/20 Ascorbic Acid 500 mg PO DAILY 02/18/20 05/09/20 Docusate Sodium 250Mg Capsule 250 mg PO DAILY 02/18/20 05/09/20 [Colace 250Mg Capsule] Warfarin Sodium 2.5 mg PO MOWEFR@1400 02/18/20 05/09/20 Warfarin Sodium 5 mg PO SUTUTHSA@1400 02/18/20 05/09/20 risperiDONE [Risperdal] 3 mg PO BID 02/18/20 05/09/20 carvediloL [Coreg] 3.125 mg PO BID #60 tablet 02/22/20 05/09/20 Diclofenac Sodium [Voltaren] 2 - 4 mg TOP PRN PRN 04/12/20 05/09/20 EPINEPHrine [Epipen Jr] 0.3 mg IM DAILY PRN 04/12/20 05/09/20 Fluticasone [Flonase] 1 - 2 spray BÁRBARA BID 04/12/20 05/09/20 Hydrocortisone Acet/Aloe Vera 1 applic TD BID PRN 04/12/20 05/09/20 [Nucort Lotion] Ketoconazole [Nizoral] 1 applic TOP TID PRN 04/12/20 05/09/20 Olopatadine HCl [Pataday] 1 drops EACHEYE DAILY PRN 04/12/20 05/09/20 guaiFENesin [Robafen] 2 tsp PO QID PRN 04/12/20 05/09/20 traZODone [Desyrel] 200 mg PO QPM 04/12/20 05/09/20 Nitrofurantoin [Macrobid] 100 mg PO BID 5 Days #9 capsule 07/03/20 - Allergies Allergies/Adverse Reactions: Allergies Allergy/AdvReac Type Severity Reaction Status Date / Time Penicillins Allergy Unknown Verified 10/20/20 19:38 Review of Systems - Constitutional Constitutional: denies: Fatigue, Fever, Weakness, Poor appetite - Eyes Eyes: reports: Vision loss. denies: Pain, Irritation, Blurred vision - Ears, Nose & Throat Ears, Nose & Throat: reports: Nasal discharge (chronic due to seasonal allergi es), Nasal congestion (chronic due to nasal allergies). denies: Hearing aids, Tinnitus, Vertigo, Nasal pain - Cardiovascular Cariovascular: reports: Edema. denies: Irregular heart rate, Palpitations, Chest pain, Orthopnea - Respiratory Respiratory: reports: Cough (every winter with postnasal drip. predisposition to easy cough due to that). denies: Hemoptysis, SOB at rest, SOB with exertion, Apnea, Stridor - Gastrointestinal Gastrointestinal: reports: Constipation, Other (edema of lower abd wall recently). denies: Abdominal pain, Abdominal distention, Diarrhea, Change in cleve wel habits, Rectal bleeding, Nausea, Vomiting - Genitourinary Genitourinary: reports: Incontinence. denies: Dysuria, Frequency, Urgency, Hematuria - Musculoskeletal Musculoskeletal: denies: Muscle pain, Back pain, Stiffness, Joint pain - Integumentary Integumentary: denies: Rash, Pruritis, Lesions - Neurological Neurological: reports: Memory problems, Pre-existing deficit. denies: General weakness, Focal weakness, Headache, Dizziness - Psychiatric Psychiatric: denies: Depression - Endocrine Endocrine: denies: Polyuria, Polydypsia, Polyphagia Prior Level of Functionality: Due to developmental delay and cognitive deficits, this patient lives in a half-way. She is able to dress herself, feed herself, and do baths or go to the [facility]. However all of these activities require some standby assist. Buttons need to be button, she needs help to be wiped in the bathroom, and she needs to be prompted. Feeding herself is the only thing she does independently. She does walk with a walker. Her main complaint is knee pain. Exam - Vital Signs Vital Signs: Vital Signs x48h Temp Pulse Resp BP Pulse Ox 10/20/20 21:15 71 14 94/51 L 95 10/20/20 19:20 35.7 C L 79 21 102/50 L 96 Conclusion/Plan - Problem List (1) Acute on chronic diastolic heart failure Conclusion/Plan: Her echocardiograms in the past have showed only mild reduction in ejection fraction over 1 month to the next. Mild pulmonary elevated pressures. But sinus rhythm and only grade 1 diastolic heart failure. I have explained what these terms mean to her caregiver. 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 Her diastolic heart failure appears to be a ccompanied by right greater than left pleural effusions. At this time we are thinking that the effusions are from congestive heart failure and not from infection or neoplasm. She also has new onset A. fib which will be addressed below.Right now I am thinking that this patient probably needed her diuretic that was discontinued after careful evaluation. Although the reasoning was quite good to stop the diuretic, in retrospect this has not worked out for her. Plan: Inpatient admission Diuresis with IV Lasix twice daily Repeat echocardiogram If effusions do not respond to diuresis, consider thoracentesis for diagnostic evaluation (2) New onset atrial fibrillation Conclusion/Plan: ?Could be due to the pleural effusion that she now has present. She did have biatrial enlargement last year and that could have also gotten worse enough to induce atrial fibrillation. Troponins are elevated at 180. Is this demand ischemia due to RVR or an NSTEMI. Pulmonary embolism is also under consideration. Plan: Trend troponins DVT prophylaxis with Lovenox but consider anticoagulation again for ChadsVasc scoring TSH Echocardiogram CT pulmonary angiogram due to history of PE and DVT Will be done tomorrow. Her creatinine is elevated. If the creatinine does not come down enough to safely do the CT pulmonary angiogram she may need a VQ scan. Venous Dopplers Metoprolol 25 mg p.o. twice daily (3) Elevated troponin Conclusion/Plan: Due to congestive heart failure, A. fib with RVR that may be just demand ischemia. We will trend troponin. Check EKG in the morning. We will also find out her waste picker was and get those notes by Thursday. (4) Acute renal insufficiency Conclusion/Plan: Acute kidney insufficiency. Baseline creatinine is usually 0.9 with a GFR of 70. Today she is creatinine 1.3 with a GFR of 40. Differential diagnosis includes dehydration, prerenal azotemia due to congestive heart failure or diuretic use. She does have diminished urine output. Plan: Monitor daily Avoid nephrotoxic agents Renal ultrasound to make sure she is not obstructed Bladder scan (5) Leg edema Conclusion/Plan: At this point she has a history of lymphedema, congestive heart failure, and her leg edema could be from these conditions as sole agents or combined problems. However the caregiver describes increasing abdominal wall edema. Decreasing appetite. "Not feeling well". Chronic constipation. Plan: If she does not improve with diuretics and rate control and evaluation and treatment of congestive heart failure, will consider CT of abdomen and pelvis. (6) Developmental delay, mild Conclusion/Plan: The patient lives in a half-way, has a next of kin in [place], but no power of disability attorney. At this time it is not a problem, and the caregiver feels that the patient's wishes are clear enough to be followed. Will ask social studies department chair to see the patient, speak to sister, to see if there is any change that needs to be made. - Lab Results Lab results reviewed: Yes Fish Bones: 10/20/20 19:32 10/20/20 19:32 - Diagnostic Imaging Results Diagnostic Imaging Results: positive: Final report reviewed Diagnostic Imaging Results Comments: Chest x-ray with increased pulmonary edema, increased moderate right pleural effusion and persistent all left effusion, persistent bibasilar compressive atelectasis when compared to October 16, 2020 and July 03, 2020. - EKG Results EKG Interpreted Independently: No EKG Comparison: Changed from prior EKG EKG Findings: This EKG now has new onset atrial fibrillation with compared to telemetry and EKGs from January 2020 Core Measures - Anticipated LOS I expect patient to be DC'd or transferred within 96 hours.: Yes - DVT/VTE - Prophylaxis VTE/DVT Device ordered at admit?: Yes
[2020-10-20] MEDS: METOPROLOL TARTRATE 25 MG TABLET PO SCH (23:57)
[2020-10-21] MEDS: METOPROLOL TARTRATE 25 MG TABLET PO SCH (00:08)
[2020-10-21] MEDS ORDERED: METOPROLOL TARTRATE 25 MG TABLET PO SCH (00:37)
[2020-10-21 01:34] LABS: BILIRUBIN,URINE NEGATIVE (NEGATIVE); CLARITY,URINE CLEAR (CLEAR); GLUCOSE, URINE (UA) NEGATIVE (NEGATIVE); KETONES,URINE (UA) NEGATIVE (NEGATIVE); LEUKOCYTE ESTERASE, URINE NEGATIVE (NEGATIVE); NITRITE,URINE NEGATIVE (NEGATIVE); OCCULT BLOOD,URINE NEGATIVE (NEGATIVE); PROTEIN,URINE NEGATIVE (NEGATIVE); UROBILINOGEN,URINE 0.2 (NORMAL) E.U./dL (NORMAL)
[2020-10-21 01:40] LABS: BACTERIA,URINE Rare /HPF (None Seen); CASTS, URINE 3-5 Hyaline Casts /LPF; RBC,URINE None Seen /HPF (0-5); SQUAMOUS EPITHELIAL CELL,UR NONE SEEN (<= Few)
[2020-10-21 05:40] LABS: CALCIUM 8.2 mg/dL (8.5-10.3); CREATININE 1.2 mg/dL (0.4-1.0)
[2020-10-21] MEDS: FUROSEMIDE 40 MG/4 ML VIAL IVP SCH ×2 (06:13→14:48)
[2020-10-21] MEDS ORDERED: LEVOTHYROXINE 75 MCG TABLET PO SCH (07:00)
--- NOTE | 2020-10-21 07:40 | PROVIDER PROGRESS NOTE ---
Subjective - Prog Note Date Prog Note Date: 10/21/20 Prog Note Time: 07:42 - Subjective Subjective: She awakens to my voice. Scrunches her nose in displeasure. Does not want to be woken up. No labored respiration.Overnight she was felt to be hypothermic. I ordered Bear hugger but when repeat temperature was done she was 96.1 so it wasn't placed. Current Medications - Current Medications Current Medications: Active Medications Acetaminophen (Acetaminophen 325 Mg Tablet) 650 mg PO Q4HR PRN PRN Reason: Pain 1 to 4 Enoxaparin Sodium (Enoxaparin 40 Mg/0.4 Ml Syringe) 40 mg SUBQ DAILY [facility] Furosemide (Furosemide 40 Mg/4 Ml Vial) 40 mg IVP BIDDIURETIC [facility] Last Admin: 10/21/20 06:13 Dose: 40 mg Documented by: Dextrose (D5w) 1,000 mls @ 83.333 mls/hr IV .Q12H [facility] Levothyroxine Sodium (Levothyroxine 75 Mcg Tablet) 75 mcg PO QDAC [facility] Last Admin: 10/21/20 06:06 Dose: Not Given Documented by: Metoprolol Tartrate (Metoprolol Tartrate 25 Mg Tablet) 25 mg PO BID [facility] Ondansetron HCl (Ondansetron Odt 4 Mg Tablet) 4 mg TL Q6HR PRN PRN Reason: Nausea / Vomiting Ondansetron HCl (Ondansetron 4 Mg/2 Ml Vial) 4 mg IVP Q6HR PRN PRN Reason: Nausea / Vomiting Oxycodone HCl (Oxycodone 5 Mg Tablet) 5 mg PO Q4HR PRN PRN Reason: Pain 5 to 7 Polyethylene Glycol (Polyethylene Glycol 3350 17 Gm Packet) 17 gm PO DAILY [facility] Risperidone (Risperidone 1 Mg Tablet) 3 mg PO BID [facility] Last Admin: 10/20/20 22:04 Dose: 3 mg Documented by: Sodium Chloride (Sodium Chloride Flush 0.9% 10 Ml Syringe) 10 ml IVP PRN PRN PRN Reason: NEEDED PER PROVIDER ORDERS Last Admin: 10/20/20 22:05 Dose: 10 ml Documented by: Sodium Chloride (Sodium Chloride Flush 0.9% 10 Ml Syringe) 10 ml IVP 0100,0900,1700 [facility] Last Admin: 10/21/20 00:00 Dose: 10 ml Documented by: Trazodone HCl (Trazodone 50 Mg Tablet) 200 mg PO QPM JULIETA Last Admin: 10/20/20 22:02 Dose: 200 mg Documented by: Levothyroxine [Synthroid] 75 mcg PO QDAC 07/22/19 Simvastatin [Zocor] 20 mg PO QPM 07/22/19 Torsemide 40 mg PO BID 07/22/19 Potassium Chloride 10 meq PO BIDWM 01/11/20 Acetaminophen 500 mg PO TID PRN 02/18/20 Ascorbic Acid 500 mg PO DAILY 02/18/20 Docusate Sodium 250Mg Capsule [Colace 250Mg Capsule] 250 mg PO DAILY 02/18/20 Warfarin Sodium 2.5 mg PO MOWEFR@1400 02/18/20 Warfarin Sodium 5 mg PO SUTUTHSA@1400 02/18/20 risperiDONE [Risperdal] 3 mg PO BID 02/18/20 Diclofenac Sodium [Voltaren] 2 - 4 mg TOP PRN PRN 04/12/20 EPINEPHrine [Epipen Jr] 0.3 mg IM DAILY PRN 04/12/20 Fluticasone [Flonase] 1 - 2 spray BÁRBARA BID 04/12/20 Hydrocortisone Acet/Aloe Vera [Nucort Lotion] 1 applic TD BID PRN 04/12/20 Ketoconazole [Nizoral] 1 applic TOP TID PRN 04/12/20 Olopatadine HCl [Pataday] 1 drops EACHEYE DAILY PRN 04/12/20 guaiFENesin [Robafen] 2 tsp PO QID PRN 04/12/20 traZODone [Desyrel] 200 mg PO QPM 04/12/20 Objective - Vital Signs/Intake & Output Reviewed Vital Signs: Yes Vital Signs: Vital Signs x48h Temp Pulse Resp BP BP Pulse Ox 10/21/20 02:49 96.1 C H 10/21/20 00:09 34.5 C L 52 L 16 104/69 3 L 10/21/20 00:08 104/69 Intake & Output: Intake & Output 10/18/20 10/19/20 10/20/20 10/21/20 23:59 23:59 23:59 23:59 Intake Total 0 Output Total 940 Balance -940 - Objective General Appearance: positive: No acute distress Eyes Bilateral: positive: PERRL ENT: positive: No signs of dehydration Neck: positive: No JVD. negative: Stiff neck Respiratory: positive: No respiratory distress. negative: Breath sounds nml (Diminished at bases. Right lung appears much more diminished chcf up than left lung), Wheezes, Rales, Rhonchi Cardiovascular: positive: Irregularly irregular (Rate is in 50s and 60s), Systolic murmur. negative: Gallop/S4, Friction rub Extremities: positive: Pedal edema Neurologic/Psychiatric: positive: Other (Unable to assess orientation. Her caregivers describe her as, cooperative, conversant with him through grunting conversation. We do not know her well enough to assess that. But she spontaneously moves extremities. Has cognitive deficits.) - Lab Results Fish Bones: 10/20/20 19:32 10/21/20 04:11 Other Labs: Lab Results x24hrs 10/21/20 10/21/20 10/21/20 Range/Units 04:11 01:15 00:51 WBC (4.8-10.8) x10^3/uL RBC (4.20-5.40) 10^6/uL Hgb (12.0-16.0) g/dL Hct (37.0-47.0) % MCV (81.0-99.0) fL MCH (27.0-31.0) pg MCHC (32.0-36.0) g/dL RDW (12.0-15.0) % Plt Count (130-450) 10^3/uL MPV (7.9-10.8) fL Neut # (Auto) (1.5-6.6) 10^3/uL Lymph # (Auto) (1.5-3.5) 10^3/uL Brewster # (Auto) (0.0-1.0) 10^3/uL Eos # (Auto) (0.0-0.7) 10^3/uL Baso # (Auto) (0.0-0.1) 10^3/uL Absolute Nucleated RBC x10^3/uL Nucleated RBC % /100WBC PT (9.9-12.6) secs INR (0.8-1.2) Sodium 147 H (135-145) mmol/L Potassium 3.5 (3.5-5.0) mmol/L Chloride 105 (101-111) mmol/L Carbon Dioxide 35 H (21-32) mmol/L Anion Gap 7.0 (6-13) BUN 25 H (6-20) mg/dL Creatinine 1.2 H (0.4-1.0) mg/dL Estimated GFR (MDRD) 43 L (>89) Glucose 82 (70-100) mg/dL Calcium 8.2 L (8.5-10.3) mg/dL Magnesium (1.7-2.8) mg/dL Total Bilirubin (0.2-1.0) mg/dL AST (10-42) IU/L ALT (10-60) IU/L Alkaline Phosphatase (42-121) IU/L Troponin I High Sens (2.3-14.8) ng/L B-Natriuretic Peptide (5-100) pg/mL Total Protein (6.7-8.2) g/dL Albumin (3.2-5.5) g/dL Globulin (2.1-4.2) g/dL Albumin/Globulin Ratio (1.0-2.2) TSH 5.16 (0.34-5.60) uIU/mL Urine Color YELLOW Urine Clarity CLEAR (CLEAR) Urine pH 5.0 (5.0-7.5) PH Ur Specific Lyons 1.015 (1.002-1.030) Urine Protein NEGATIVE (NEGATIVE) mg/dL Urine Glucose (UA) NEGATIVE (NEGATIVE) mg/dL Urine Ketones NEGATIVE (NEGATIVE) mg/dL Urine Occult Blood NEGATIVE (NEGATIVE) Urine Nitrite NEGATIVE (NEGATIVE) Urine Bilirubin NEGATIVE (NEGATIVE) Urine Urobilinogen 0.2 (NORMAL) (NORMAL) E.U./dL Ur Leukocyte Esterase NEGATIVE (NEGATIVE) Urine RBC None Seen (0-5) /HPF Urine WBC 0-3 (0-5) /HPF Ur Squamous Epith Cells NONE SEEN (<= Few) Urine Bacteria Rare (None Seen) /HPF Urine Casts 3-5 Hyaline Casts /LPF Urine Culture Comments NOT INDICATED Nasal Adenovirus (PCR) Nasal B. parapertussis DNA (PCR) Nasal Coronavir 229E PCR Nasal Coronavir HKU1 PCR Nasal Coronavir NL63 PCR Nasal Coronavir OC43 PCR Nasal Enterovir/Rhinovir PCR Nasal Influenza B PCR Nasal Influenza A PCR Nasal Parainfluen 1 PCR Nasal Parainfluen 2 PCR Nasal Parainfluen 3 PCR Nasal Parainfluen 4 PCR Nasal RSV (PCR) Nasal B.pertussis DNA PCR Nasal C.pneumoniae (PCR) [place]bara Human Metapneumo PCR Nasal M.pneumoniae (PCR) Nasal SARS-CoV-2 (PCR) 10/21/20 10/20/20 10/20/20 Range/Units 00:51 20:00 19:36 WBC (4.8-10.8) x10^3/uL RBC (4.20-5.40) 10^6/uL Hgb (12.0-16.0) g/dL Hct (37.0-47.0) % MCV (81.0-99.0) fL MCH (27.0-31.0) pg MCHC (32.0-36.0) g/dL RDW (12.0-15.0) % Plt Count (130-450) 10^3/uL MPV (7.9-10.8) fL Neut # (Auto) (1.5-6.6) 10^3/uL Lymph # (Auto) (1.5-3.5) 10^3/uL Brewster # (Auto) (0.0-1.0) 10^3/uL Eos # (Auto) (0.0-0.7) 10^3/uL Baso # (Auto) (0.0-0.1) 10^3/uL Absolute Nucleated RBC x10^3/uL Nucleated RBC % /100WBC PT (9.9-12.6) secs INR (0.8-1.2) Sodium (135-145) mmol/L Potassium (3.5-5.0) mmol/L Chloride (101-111) mmol/L Carbon Dioxide (21-32) mmol/L Anion Gap (6-13) BUN (6-20) mg/dL Creatinine (0.4-1.0) mg/dL Estimated GFR (MDRD) (>89) Glucose (70-100) mg/dL Calcium (8.5-10.3) mg/dL Magnesium (1.7-2.8) mg/dL Total Bilirubin (0.2-1.0) mg/dL AST (10-42) IU/L ALT (10-60) IU/L Alkaline Phosphatase (42-121) IU/L Troponin I High Sens 154.8 H* 180.2 H* (2.3-14.8) ng/L B-Natriuretic Peptide (5-100) pg/mL Total Protein (6.7-8.2) g/dL Albumin (3.2-5.5) g/dL Globulin (2.1-4.2) g/dL Albumin/Globulin Ratio (1.0-2.2) TSH (0.34-5.60) uIU/mL Urine Color Urine Clarity (CLEAR) Urine pH (5.0-7.5) PH Ur Specific Lyons (1.002-1.030) Urine Protein (NEGATIVE) mg/dL Urine Glucose (UA) (NEGATIVE) mg/dL Urine Ketones (NEGATIVE) mg/dL Urine Occult Blood (NEGATIVE) Urine Nitrite (NEGATIVE) Urine Bilirubin (NEGATIVE) Urine Urobilinogen (NORMAL) E.U./dL Ur Leukocyte Esterase (NEGATIVE) Urine RBC (0-5) /HPF Urine WBC (0-5) /HPF Ur Squamous Epith Cells (<= Few) Urine Bacteria (None Seen) /HPF Urine Casts /LPF Urine Culture Comments Nasal Adenovirus (PCR) NOT DETECTED Nasal B. parapertussis DNA (PCR) NOT DETECTED Nasal Coronavir 229E PCR NOT DETECTED Nasal Coronavir HKU1 PCR NOT DETECTED Nasal Coronavir NL63 PCR NOT DETECTED Nasal Coronavir OC43 PCR NOT DETECTED Nasal Enterovir/Rhinovir PCR NOT DETECTED Nasal Influenza B PCR NOT DETECTED Nasal Influenza A PCR NOT DETECTED Nasal Parainfluen 1 PCR NOT DETECTED Nasal Parainfluen 2 PCR NOT DETECTED Nasal Parainfluen 3 PCR NOT DETECTED Nasal Parainfluen 4 PCR NOT DETECTED Nasal RSV (PCR) NOT DETECTED Nasal B.pertussis DNA PCR NOT DETECTED Nasal C.pneumoniae (PCR) NOT DETECTED [place] Human Metapneumo PCR NOT DETECTED Nasal M.pneumoniae (PCR) NOT DETECTED Nasal SARS-CoV-2 (PCR) NOT DETECTED 10/20/20 10/20/20 10/20/20 Range/Units 19:32 19:32 19:32 WBC (4.8-10.8) x10^3/uL RBC (4.20-5.40) 10^6/uL Hgb (12.0-16.0) g/dL Hct (37.0-47.0) % MCV (81.0-99.0) fL MCH (27.0-31.0) pg MCHC (32.0-36.0) g/dL RDW (12.0-15.0) % Plt Count (130-450) 10^3/uL MPV (7.9-10.8) fL Neut # (Auto) (1.5-6.6) 10^3/uL Lymph # (Auto) (1.5-3.5) 10^3/uL Brewster # (Auto) (0.0-1.0) 10^3/uL Eos # (Auto) (0.0-0.7) 10^3/uL Baso # (Auto) (0.0-0.1) 10^3/uL Absolute Nucleated RBC x10^3/uL Nucleated RBC % /100WBC PT 12.6 (9.9-12.6) secs INR 1.1 (0.8-1.2) Sodium 144 (135-145) mmol/L Potassium 3.9 (3.5-5.0) mmol/L Chloride 100 L (101-111) mmol/L Carbon Dioxide 33 H (21-32) mmol/L Anion Gap 11.0 (6-13) BUN 24 H (6-20) mg/dL Creatinine 1.3 H (0.4-1.0) mg/dL Estimated GFR (MDRD) 40 L (>89) Glucose 123 H (70-100) mg/dL Calcium 8.8 (8.5-10.3) mg/dL Magnesium 1.7 (1.7-2.8) mg/dL Total Bilirubin 0.5 (0.2-1.0) mg/dL AST 23 (10-42) IU/L ALT 21 (10-60) IU/L Alkaline Phosphatase 114 (42-121) IU/L Troponin I High Sens (2.3-14.8) ng/L B-Natriuretic Peptide 222 H (5-100) pg/mL Total Protein 6.4 L (6.7-8.2) g/dL Albumin 3.2 (3.2-5.5) g/dL Globulin 3.2 (2.1-4.2) g/dL Albumin/Globulin Ratio 1.0 (1.0-2.2) TSH (0.34-5.60) uIU/mL Urine Color Urine Clarity (CLEAR) Urine pH (5.0-7.5) PH Ur Specific Lyons (1.002-1.030) Urine Protein (NEGATIVE) mg/dL Urine Glucose (UA) (NEGATIVE) mg/dL Urine Ketones (NEGATIVE) mg/dL Urine Occult Blood (NEGATIVE) Urine Nitrite (NEGATIVE) Urine Bilirubin (NEGATIVE) Urine Urobilinogen (NORMAL) E.U./dL Ur Leukocyte Esterase (NEGATIVE) Urine RBC (0-5) /HPF Urine WBC (0-5) /HPF Ur Squamous Epith Cells (<= Few) Urine Bacteria (None Seen) /HPF Urine Casts /LPF Urine Culture Comments Nasal Adenovirus (PCR) Nasal B. parapertussis DNA (PCR) Nasal Coronavir 229E PCR Nasal Coronavir HKU1 PCR Nasal Coronavir NL63 PCR Nasal Coronavir OC43 PCR Nasal Enterovir/Rhinovir PCR Nasal Influenza B PCR Nasal Influenza A PCR Nasal Parainfluen 1 PCR Nasal Parainfluen 2 PCR Nasal Parainfluen 3 PCR Nasal Parainfluen 4 PCR Nasal RSV (PCR) Nasal B.pertussis DNA PCR Nasal C.pneumoniae (PCR) [place] Human Metapneumo PCR Nasal M.pneumoniae (PCR) Nasal SARS-CoV-2 (PCR) 10/20/20 Range/Units 19:32 WBC 4.1 L (4.8-10.8) x10^3/uL RBC 3.85 L (4.20-5.40) 10^6/uL Hgb 11.8 L (12.0-16.0) g/dL Hct 38.4 (37.0-47.0) % MCV 99.7 H (81.0-99.0) fL MCH 30.6 (27.0-31.0) pg MCHC 30.7 L (32.0-36.0) g/dL RDW 16.9 H (12.0-15.0) % Plt Count 129 L (130-450) 10^3/uL MPV 11.1 H (7.9-10.8) fL Neut # (Auto) 2.7 (1.5-6.6) 10^3/uL Lymph # (Auto) 1.1 L (1.5-3.5) 10^3/uL Brewster # (Auto) 0.3 (0.0-1.0) 10^3/uL Eos # (Auto) 0.1 (0.0-0.7) 10^3/uL Baso # (Auto) 0.0 (0.0-0.1) 10^3/uL Absolute Nucleated RBC 0.00 x10^3/uL Nucleated RBC % 0.0 /100WBC PT (9.9-12.6) secs INR (0.8-1.2) Sodium (135-145) mmol/L Potassium (3.5-5.0) mmol/L Chloride (101-111) mmol/L Carbon Dioxide (21-32) mmol/L Anion Gap (6-13) BUN (6-20) mg/dL Creatinine (0.4-1.0) mg/dL Estimated GFR (MDRD) (>89) Glucose (70-100) mg/dL Calcium (8.5-10.3) mg/dL Magnesium (1.7-2.8) mg/dL Total Bilirubin (0.2-1.0) mg/dL AST (10-42) IU/L ALT (10-60) IU/L Alkaline Phosphatase (42-121) IU/L Troponin I High Sens (2.3-14.8) ng/L B-Natriuretic Peptide (5-100) pg/mL Total Protein (6.7-8.2) g/dL Albumin (3.2-5.5) g/dL Globulin (2.1-4.2) g/dL Albumin/Globulin Ratio (1.0-2.2) TSH (0.34-5.60) uIU/mL Urine Color Urine Clarity (CLEAR) Urine pH (5.0-7.5) PH Ur Specific Lyons (1.002-1.030) Urine Protein (NEGATIVE) mg/dL Urine Glucose (UA) (NEGATIVE) mg/dL Urine Ketones (NEGATIVE) mg/dL Urine Occult Blood (NEGATIVE) Urine Nitrite (NEGATIVE) Urine Bilirubin (NEGATIVE) Urine Urobilinogen (NORMAL) E.U./dL Ur Leukocyte Esterase (NEGATIVE) Urine RBC (0-5) /HPF Urine WBC (0-5) /HPF Ur Squamous Epith Cells (<= Few) Urine Bacteria (None Seen) /HPF Urine Casts /LPF Urine Culture Comments Nasal Adenovirus (PCR) Nasal B. parapertussis DNA (PCR) Nasal Coronavir 229E PCR Nasal Coronavir HKU1 PCR Nasal Coronavir NL63 PCR Nasal Coronavir OC43 PCR Nasal Enterovir/Rhinovir PCR Nasal Influenza B PCR Nasal Influenza A PCR Nasal Parainfluen 1 PCR Nasal Parainfluen 2 PCR Nasal Parainfluen 3 PCR Nasal Parainfluen 4 PCR Nasal RSV (PCR) Nasal B.pertussis DNA PCR Nasal C.pneumoniae (PCR) [place] Human Metapneumo PCR Nasal M.pneumoniae (PCR) Nasal SARS-CoV-2 (PCR) ABX Reporting Has patient been on IV antibiotics over the past 48 hours?: No Assessment/Plan - Problem List (1) Acute on chronic diastolic heart failure Impression: Her echocardiograms in the past have showed only mild reduction in ejection fraction over 1 month to the next. Mild pulmonary elevated pressures. But sinus rhythm and only grade 1 diastolic heart failure. I have explained what these terms mean to her caregiver. 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 Her diastolic heart failure appears to be accompanied by right greater than left pleural effusions. At this time we are thinking that the effusions are from congestive heart failure and not from infe ction or neoplasm. She also has new onset A. fib which will be addressed below. Right now I am thinking that this patient probably needed her diuretic that was discontinued after careful evaluation. Although the reasoning was quite good to stop the diuretic, in retrospect this has not worked out for her. I have resumed Lasix at 40 mg IV twice daily. She has had -940 cc as of this morning. However she is now hypernatremic. Plan: Add D5 W at 85 cc an hour Continue Diuresis with IV Lasix twice daily Repeat echocardiogram But those are not done on the weekend and will have to be done Thursday If effusions do not respond to diuresis, consider thoracentesis for diagnostic evaluation (2) New onset atrial fibrillation Conclusion/Plan: ?Could be due to the pleural effusion that she now has present. She did have biatrial enlargement last year and that could have also gotten worse enough to induce atrial fibrillation. Troponins are elevated at 180. Second troponin was lower at 154.8. So the trend is flat or reducing. Suspect demand ischemia from her rate. TSH is 5.16. Pulmonary embolism is also under consideration. Plan: DVT prophylaxis with Lovenox but consider anticoagulation again for ChadsVasc scoring Echocardiogram When available. CT pulmonary angiogram due to history of PE and DVT Still cannot be done because of high creatinine. If the creatinine does not come down enough to safely do the CT pulmonary angiogram she may need a VQ scan. Venous Dopplers Ordered and pending. Metoprolol 25 mg p.o. twice daily But parameters are to hold if pulse is less than 60. (3) Elevated troponin Conclusion/Plan: Due to congestive heart failure, A. fib with RVR that may be just demand ischemia. Troponin #180.2. Troponin #2 is 154.8. As such I think her elevation is due to demand from the A. fib with RVR. We will continue to try to find out who her conference center manager is to get those notes or have a discussion with him/her on October 23 (4) Acute renal insufficiency Conclusion/Plan: Acute kidney insufficiency. Baseline creatinine is usually 0.9 with a GFR of 70. On admission she was 24 and 1.3. This morning she is 25 and 1.2. Differential diagnosis includes dehydration, prerenal azotemia due to congestive heart failure or diuretic use. She does have diminished urine output. Plan: Monitor daily Avoid nephrotoxic agents Renal ultrasound to make sure she is not obstructed But she is producing urine so that will be canceled. Bladder scan Showed 350 cc in her bladder. She needed a straight cath to get a urinalysis which was negative. (5) Leg edema Conclusion/Plan: At this point she has a history of lymphedema, congestive heart failure, and her leg edema could be from these conditions as sole agents or combined problems. However the caregiver describes increasing abdominal wall edema. Decreasing appetite. "Not feeling well". Chronic constipation. Plan: If she does not improve with diuretics and rate control and evaluation and treatment of congestive heart failure, will consider CT of abdomen and pelvis. To make sure there is no history of DVT and PE, venous Dopplers ordered for today. 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 At this time it is not a problem, and the caregiver feels that the patient's wishes are clear enough to be followed. Will ask psychotherapist social worker to see the patient, speak to sister, to see if there is any change that needs to be made.
[2020-10-21] MEDS ORDERED: DEXTROSE 5% 1,000 ML IV SCH (08:00)
[2020-10-21] MEDS: SODIUM CHLORIDE FLUSH 0.9% 10 ML SYRINGE IVP SCH ×3 (08:55→16:24)
[2020-10-21] MEDS ORDERED: ENOXAPARIN 40 MG/0.4 ML SYRINGE SUBQ SCH (09:00)
[2020-10-21] MEDS ORDERED: polyethylene glycoL 3350 17 GM PACKET PO SCH (09:00)
[2020-10-21] MEDS ORDERED: SENNA 8.6 MG TABLET PO SCH (09:00)
[2020-10-21] MEDS: risperiDONE 1 MG TABLET PO SCH (09:01)
--- NOTE | 2020-10-21 11:02 | PHARMACY PROGRESS NOTE ---
- Best Possible Medication History Admit Date and Time: 10/20/202035 Processed by: Pharmacy Medication History completed: Yes Patient Interview: Pt unable to participate Secondary Source(s): Facility MAR as ONLY source As the person ultimately responsible for medication therapy, providers are able to order a medication from an existing home medication list in [facility] via the "Reconcile Routine" prior to Confirmation of that medication by litigation support analyst. Such practice is discouraged except when the physician, in their clinical judgment, deems that a medical need exists for a medication without regard to previous use.
[2020-10-21 12:23] LABS: CALCIUM 8.1 mg/dL (8.5-10.3); CREATININE 1.2 mg/dL (0.4-1.0)
--- NOTE | 2020-10-21 13:35 | Ultrasound Report ---
PROCEDURE: Duplex Ext Veins Bilateral INDICATIONS: SHYAM BLAIR TECHNIQUE: Real-time imaging, as well as color and pulse Doppler interrogation, were performed of the deep veins of both legs from the inguinal ligament to the popliteal fossa. COMPARISON: 08/21/2020 FINDINGS: The deep veins are normally compressible, and free of intraluminal thrombus. Color and pu lse Doppler demonstrate normal phasic intravascular flow. There is normal augmentation response to d istal compression maneuver. The previously noted nonocclusive thrombus within the left greater saphe nous vein is not definitely identified on today's examination. There is subcutaneous edema most promi nently within the calves. IMPRESSION: No evidence of deep venous thrombosis in either lower extremity. Reviewed by: Alo Shin DO on 10/21/2020 12:34 PM JOJO Approved by: Alo Shin DO on 10/21/2020 12:34 PM JOJO Station ID: [id number]
--- NOTE | 2020-10-21 17:21 | DISCHARGE SUMMARY ---
Discharge Summary Admit Date: 10/20/20 Discharge Date: 10/21/20 Discharging Provider: Trevon Locke Primary Care Provider: Angelika Hines Code Status: Attempt Resuscitation Condition at Discharge: Serious Discharge Disposition: 02 Transfer Acute Care Hosp Discharge Facility Name: [facility] - DIAGNOSES Admission Diagnoses: Acute on chronic diastolic heart failure New onset atrial relation Elevated troponin Acute renal insufficiency Leg edema Developmental delay, mild Discharge Diagnoses with Status of Each Condition: Atrial fibrillation with slow ventricular response and pauses of up to 7 seconds Acute on chronic diastolic heart failure Elevated troponin Acute kidney injury Hypothyroidism Mild cognitive delay - HPI History of Present Illness: H&P per Dr. Pang: This is a 80-year-old white female who lives at [facility] for 21 years due to developmental delay. She was last admitted in January 2020 here for a UTI complicated by elevated troponins. Troponins peaked at over 400 and then went back down. EKG showed flattened T waves. Echocardiogram showed overall left ventricular systolic function that is normal with ejection fraction 55 to 60%. No regional wall motion abnormalities. Impaired relaxation consistent with grade 1 diastolic dysfunction. New biatrial enlargement seen. No significant valvular heart disease. Echocardiogram 1 month prior to her January admission was in December 2019. Her ejection fraction was 65 to 70%. No regional wall motion abnormalities. Right ventricle normal. RVSP was 43 mmHg. She was in sinus rhythm with the December 2019 echo, in the January 2020 echo. EKGs with the January 2020 admission were also sinus rhythm. At that time, she was seen in follow-up with cardiology. They felt that "she had the heart of a 80-year-old" and that there was no cause for worry or alarm. Coreg was stopped. She had already been on Lasix because of chronic leg edema. Subsequent to this, they evaluated the need for Lasix for leg edema. Also the evaluated the need for continuous anticoagulation in the face of a DVT and PE from 21 years ago. 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 They postulated that she developed a DVT with PE because of the new sedentary lifestyle. She been on Coumadin from that point on. However, she had significant knee pain that was really bothersome and was unable to take anything but Tylenol for pain control. They opted to take her off the Coumadin so that this would allow her to do nonsteroidal therapy to control her knee pain. She was not felt to need lifelong anticoagulation. They were also hoping to help her recurrent UTIs. Because of the knee pain she was having less and less ambulation and she was becoming incontinent of urine or not wanting to go pee. So she was getting recurrent UTIs. It also does not help that she hates to drink water. All sorts of things to try to get her to drink water. She refuses so they have been giving her lots of Pedialyte. The leg edema was diagnosed as lymphedema and she underwent lymphedema therapy with leg wraps, compression hose. She ended up on chronic Velcro wraps. And because her legs were doing so well the Lasix was discontinued. Her care provider postulates that the leg wraps were compressing the fluid out of her legs into her upper legs and her lower abdominal wall. Her lower abdominal wall seems to be developing edema as well. The edema then progressed to her legs. She seemed to be having recurrence of leg edema. She was not feeling well. Lasix 20 mg was started. Then a few days ago she was seen by her provider where a chest x-ray showed pulmonary edema and it was increased to 40 mg. In spite of that she did not have increased urine output. Usually she seems to be sensitive to diuretics and will pee quite a bit. With this she did not have improved output. Edema and shortness of breath finally got to the point that shortness of breath was getting worse and worse. Torsemide was increased from 20 to 40 mg a day. Torsemide is listed. But the caregiver keeps on saying that it was Lasix. Despite this treatment intervention, she continued to have shortness of breath. EMS was called [facility] and her pulse oximetry was 80% while supine. Came up to 92% when she was upright. 95% on 2 L nasal cannula. In the emergency room she was able to say her name but unable to give any other history because of her developmental delay. Temperature was 35.7, heart rate 79, respiration 21, blood pressure 102/50 and 96% saturated on 2 L. She had exotropia of the right eye. No JVD. An irregularly irregular heart rate without murmur. No respiratory distress with very diminished breath sounds at the bases. No use of accessory muscles and no respiratory distress. Legs were not edematous. EKG had atrial fibrillation her CBC was at baseline anemia with hemoglobin 11.8. Troponin was 180.2. BNP 222. Chest x-ray had increased pulmonary edema with moderate right pleural effusion and small left pleural effusion. She was treated with Lasix, but nitrites were not used because of her low blood pressure. Aspirin was also given. She is a full CODE STATUS. With her last admission with the same presentation she was here for over 2 midnights. As such she will be placed as an inpatient. - CONSULTS | PROCEDURES Consultations: Social Work Procedures: Chest x-ray on October 20 showed increased pulmonary edema and increased moderate right pleural effusion and persistent small left effusion. Persistent bibasilar compressive atelectasis or consolidation. Duplex of the bilateral lower extremities showed no evidence of deep vein thrombosis. - HOSPITAL COURSE Hospital Course: The patient was admitted for acute on chronic diastolic heart failure and new onset atrial fibrillation. She is found to have mild acute kidney injury with a creatinine of 1.3. She was diuresed with IV Lasix initially but this was held briefly as she developed mild hyponatremia with a sodium of 147. She was given D5 water with a for a few hours with improvement in her sodium. She was then continued on the IV Lasix. Her troponins were checked and initially they were elevated in the 180s and decreased to 140s. She was not started on anticoagulation as there was low suspicion for ischemia. She did have a nuclear stress stressed back in January 2020 which was low suspicion for coronary artery disease. Given her lower extremity edema, duplex was obtained which was negativ e for DVT. There was still concern for possible PE but we held off on obtaining a CT angiogram given her mild acute kidney injury. TSH was checked and this was within normal limits. She was hypothermic early this morning with a temperature of 34.5 C and was placed on a gerard hugger for a brief period of time with resolution of the hypothermia. Her temperature improved to 35.7C and her latest temperature was 36.6 C and she has been off of the Gerard hugger since approximately 5 AM. The cause of her hypothermia was not clear but there is low suspicion for infection at this time. It was noted this morning that she would become bradycardic down to the 40s and 30s. She initially had pauses up to 4.2 seconds. Given the bradycardia and pauses, she was transferred to the intensive care unit for closer monitoring. I did speak with the patient's caregiver who denies any recent syncope. The patient is not on any AV jill blocking agents. She was previously on carvedilol after being discharged in January 2020 but her mailroom associate, Dr. Guido discontinued this as the patient was feeling dizzy and lightheaded at times. While she was moderate in the ICU this afternoon, she continued to have pauses of up to 4 to 5 seconds. This evening she had a pause up to 7 seconds. The patient was asymptomatic during this time. She was not hypothermic during these episodes and she did not have pauses or bradycardia overnight when she was hypothermic. Given her pauses, I discussed with the patient if she would consider pacemaker. Although she has cognitive delay, her caregiver, Henny, states the patient has ability to make her own medical decisions. She does not have POA. The patient states that she would want a pacemaker if it was deemed necessary. I spoke with Dr. Daly of cardiology at [facility] in [place] who graciously excepted the patient in transfer. She was transferred via ALS in stable condition. I did notify the patient's sister, Katie Massey, who can be reached at [phone]. She is in agreement with the plan to transfer the patient. - ALLERGIES Allergies/Adverse Reactions: Allergies Allergy/AdvReac Type Severity Reaction Status Date / Time Penicillins Allergy Unknown Verified 10/20/20 19:38 - MEDICATIONS Home Medications: Ambulatory Orders Medication Instructions Recorded Confirmed Levothyroxine [Synthroid] 75 mcg PO QDAC 07/22/19 10/21/20 Simvastatin [Zocor] 20 mg PO QPM 07/22/19 10/21/20 Torsemide 40 mg PO DAILY 07/22/19 10/21/20 Potassium Chloride 10 meq PO DAILY 01/11/20 10/21/20 Acetaminophen 1,000 mg PO TID 02/18/20 10/21/20 Ascorbic Acid 500 mg PO DAILY 02/18/20 10/21/20 Docusate Sodium 250Mg Capsule 250 mg PO DAILY 02/18/20 10/21/20 [Colace 250Mg Capsule] Diclofenac Sodium [Voltaren] 2 - 4 gm TOP BID PRN 04/12/20 10/21/20 EPINEPHrine [Epipen Jr] 0.3 mg IM ONCE PRN 04/12/20 10/21/20 Fluticasone [Flonase] 1 spray BÁRBARA BID 04/12/20 10/21/20 Hydrocortisone Acet/Aloe Vera 1 applic TOP BID PRN 04/12/20 10/21/20 [Nucort Lotion] Ketoconazole [Nizoral] 1 applic TOP .TIW PRN 04/12/20 10/21/20 Olopatadine HCl [Pataday] 1 drops EACHEYE DAILY PRN 04/12/20 10/21/20 traZODone [Desyrel] 200 mg PO QPM 04/12/20 10/21/20 Guaifenesin/Dextromethorphan 5 - 10 ml PO Q4H PRN 10/21/20 10/21/20 [Robafen Dm Peak Cold Liquid] Meloxicam [Mobic] 7.5 mg PO BID 10/21/20 10/21/20 QUEtiapine [SEROquel] 100 mg PO QPM 10/21/20 10/21/20 Quetiapine Fumarate [Seroquel] 50 mg PO DAILY 10/21/20 10/21/20 - PHYSICAL EXAM AT DISCHARGE General Appearance: positive: No acute distress, Alert Eyes Bilateral: positive: Normal inspection ENT: positive: ENT inspection nml, Other (Nasal cannula in place.) Neck: positive: Nml inspection Respiratory: positive: No respiratory distress, Rales, Other (Diminished in bases.). negative: Wheezes Cardiovascular: positive: No murmur, Irregularly irregular, Extrasystoles. negative: Systolic murmur Abdomen: positive: Non-tender, No distention. negative: Tenderness Skin: positive: Warm, Dry Extremities: positive: Pedal edema (+2 pitting edema in bilateral lower extremities.) Neurologic/Psychiatric: negative: Disoriented to person, Disoriented to place Physical Exam Other/Comments: Vital Signs - 24 hr 10/20/20 10/20/20 10/20/20 19:20 21:15 21:30 Temperature 35.7 C L 35.6 C L Heart Rate 79 71 Heart Rate [ 60 Brachial] Respiratory 21 14 16 Rate Blood Pressure 102/50 L 94/51 L Blood Pressure 100/50 L [Left Brachial artery] Blood Pressure [Right Brachial artery] O2 Saturation 96 95 98 0110/21/20 10/21/20 00:08 00:09 02:49 Temperature 34.5 C L 35.7 C L Heart Rate Heart Rate [ 52 L Brachial] Respiratory 16 Rate Blood Pressure 104/69 Blood Pressure 104/69 [Left Brachial artery] Blood Pressure [Right Brachial artery] O2 Saturation 3 L 10/21/20 10/21/20 10/21/20 09:00 11:46 13:00 Temperature 35.7 C L 35.7 C L 36.6 C Heart Rate Heart Rate [ 60 65 72 Brachial] Respiratory 22 18 18 Rate Blood Pressure Blood Pressure 105/50 L 103/52 L 138/78 H [Left Brachial artery] Blood Pressure [Right Brachial artery] O2 Saturation 99 100 96 10/21/20 10/21/20 10/21/20 13:50 13:53 13:54 Temperature Heart Rate 82 53 L 74 Heart Rate [ Brachial] Respiratory 16 19 21 Rate Blood Pressure 96/63 Blood Pressure [Left Brachial artery] Blood Pressure [Right Brachial artery] O2 Saturation 10/21/20 10/21/20 10/21/20 13:55 14:00 14:01 Temperature Heart Rate 82 56 L 85 Heart Rate [ 70 Brachial] Respiratory 24 19 19 Rate Blood Pressure 106/73 Blood Pressure [Left Brachial artery] Blood Pressure 96/63 [Right Brachial artery] O2 Saturation 95 10/21/20 10/21/20 10/21/20 14:05 14:10 14:12 Temperature Heart Rate 73 46 L 74 Heart Rate [ Brachial] Respiratory 15 20 19 Rate Blood Pressure Blood Pressure [Left Brachial artery] Blood Pressure [Right Brachial artery] O2 Saturation 10/21/20 10/21/20 10/21/20 14:13 14:15 14:16 Temperature Heart Rate 64 67 66 Heart Rate [ Brachial] Respiratory 14 21 15 Rate Blood Pressure 107/58 L 111/77 Blood Pressure [Left Brachial artery] Blood Pressure [Right Brachial artery] O2 Saturation 10/21/20 10/21/20 10/21/20 14:20 14:25 14:30 Temperature Heart Rate 53 L 58 L 54 L Heart Rate [ Brachial] Respiratory 18 17 18 Rate Blood Pressure Blood Pressure [Left Brachial artery] Blood Pressure [Right Brachial artery] O2 Saturation 10/21/20 10/21/20 10/21/20 14:35 14:40 14:45 Temperature Heart Rate 48 L 51 L 59 L Heart Rate [ Brachial] Respiratory 13 14 15 Rate Blood Pressure Blood Pressure [Left Brachial artery] Blood Pressure [Right Brachial artery] O2 Saturation 10/21/20 10/21/20 10/21/20 14:50 14:55 15:00 Temperature Heart Rate 64 65 77 Heart Rate [ 62 Brachial] Respiratory 16 14 17 Rate Blood Pressure Blood Pressure [Left Brachial artery] Blood Pressure 94/62 [Right Brachial artery] O2 Saturation 91 L 10/21/20 10/21/20 10/21/20 15:01 15:05 15:10 Temperature Heart Rate 62 67 77 Heart Rate [ Brachial] Respiratory 15 13 16 Rate Blood Pressure 94/62 Blood Pressure [Left Brachial artery] Blood Pressure [Right Brachial artery] O2 Saturation 10/21/20 10/21/20 10/21/20 15:15 15:20 15:25 Temperature Heart Rate 54 L 67 73 Heart Rate [ Brachial] Respiratory 10 L 13 15 Rate Blood Pressure Blood Pressure [Left Brachial artery] Blood Pressure [Right Brachial artery] O2 Saturation 10/21/20 10/21/20 10/21/20 15:30 15:35 15:40 Temperature Heart Rate 57 L 60 69 Heart Rate [ Brachial] Respiratory 17 13 13 Rate Blood Pressure Blood Pressure [Left Brachial artery] Blood Pressure [Right Brachial artery] O2 Saturation 10/21/20 10/21/20 10/21/20 15:45 15:50 15:55 Temperature Heart Rate 62 70 65 Heart Rate [ Brachial] Respiratory 25 H 16 14 Rate Blood Pressure Blood Pressure [Left Brachial artery] Blood Pressure [Right Brachial artery] O2 Saturation 10/21/20 10/21/20 10/21/20 16:00 16:01 16:05 Temperature 97.3 C H Heart Rate 65 76 65 Heart Rate [ 70 Brachial] Respiratory 16 15 12 Rate Blood Pressure 112/72 Blood Pressure [Left Brachial artery] Blood Pressure 112/72 [Right Brachial artery] O2 Saturation 10/21/20 10/21/20 10/21/20 16:10 16:15 16:20 Temperature Heart Rate 55 L 72 68 Heart Rate [ Brachial] Respiratory 14 15 13 Rate Blood Pressure Blood Pressure [Left Brachial artery] Blood Pressure [Right Brachial artery] O2 Saturation 10/21/20 10/21/20 10/21/20 16:25 16:30 16:35 Temperature Heart Rate 74 49 L 75 Heart Rate [ Brachial] Respiratory 18 22 12 Rate Blood Pressure Blood Pressure [Left Brachial artery] Blood Pressure [Right Brachial artery] O2 Saturation 10/21/20 10/21/20 10/21/20 16:40 16:45 16:50 Temperature Heart Rate 68 68 56 L Heart Rate [ Brachial] Respiratory 13 16 11 L Rate Blood Pressure Blood Pressure [Left Brachial artery] Blood Pressure [Right Brachial artery] O2 Saturation 10/21/20 10/21/20 10/21/20 16:55 17:00 17:01 Temperature Heart Rate 71 69 70 Heart Rate [ Brachial] Respiratory 12 13 14 Rate Blood Pressure 102/63 Blood Pressure [Left Brachial artery] Blood Pressure [Right Brachial artery] O2 Saturation Oxygen O2 Source Nasal cannula Oxygen Flow Rate 2 - LABS Result Diagrams: 10/20/20 19:32 10/21/20 11:59 Other Lab Results: Laboratory Tests 10/20/20 10/20/20 10/20/20 19:32 19:32 19:32 WBC 4.1 L RBC 3.85 L Hgb 11.8 L Hct 38.4 MCV 99.7 H MCH 30.6 MCHC 30.7 L RDW 16.9 H Plt Count 129 L MPV 11.1 H Neut # (Auto) 2.7 Lymph # (Auto) 1.1 L Day # (Auto) 0.3 Eos # (Auto) 0.1 Baso # (Auto) 0.0 Absolute Nucleated RBC 0.00 Nucleated RBC % 0.0 PT 12.6 INR 1.1 Sodium 144 Potassium 3.9 Chloride 100 L Carbon Dioxide 33 H Anion Gap 11.0 BUN 24 H Creatinine 1.3 H Estimated GFR (MDRD) 40 L Glucose 123 H Calcium 8.8 Magnesium 1.7 Total Bilirubin 0.5 AST 23 ALT 21 Alkaline Phosphatase 114 Troponin I High Sens B-Natriuretic Peptide Total Protein 6.4 L Albumin 3.2 Globulin 3.2 Albumin/Globulin Ratio 1.0 TSH Urine Color Urine Clarity Urine pH Ur Specific [place] Urine Protein Urine Glucose (UA) Urine Ketones Urine Occult Blood Urine Nitrite Urine Bilirubin Urine Urobilinogen Ur Leukocyte Esterase Urine RBC Urine WBC Ur Squamous Epith Cells Urine Bacteria Urine Casts Urine Culture Comments Nasal Adenovirus (PCR) Nasal B. parapertussis DNA (PCR) Nasal Coronavir 229E PCR Nasal Coronavir HKU1 PCR Nasal Coronavir NL63 PCR Nasal Coronavir OC43 PCR Nasal Enterovir/Rhinovir PCR Nasal Influenza B PCR Nasal Influenza A PCR Nasal Parainfluen 1 PCR Nasal Parainfluen 2 PCR Nasal Parainfluen 3 PCR Nasal Parainfluen 4 PCR Nasal RSV (PCR) Nasal B.pertussis DNA PCR Nasal C.pneumoniae (PCR) [place] Human Metapneumo PCR Nasal M.pneumoniae (PCR) Nasal SARS-CoV-2 (PCR) 10/20/20 10/20/20 10/20/20 19:32 19:36 20:00 WBC RBC Hgb Hct MCV MCH MCHC RDW Plt Count MPV Neut # (Auto) Lymph # (Auto) Day # (Auto) Eos # (Auto) Baso # (Auto) Absolute Nucleated RBC Nucleated RBC % PT INR Sodium Potassium Chloride Carbon Dioxide Anion Gap BUN Creatinine Estimated GFR (MDRD) Glucose Calcium Magnesium Total Bilirubin AST ALT Alkaline Phosphatase Troponin I High Sens 180.2 H* B-Natriuretic Peptide 222 H Total Protein Albumin Globulin Albumin/Globulin Ratio TSH Urine Color Urine Clarity Urine pH Ur Specific [place] Urine Protein Urine Glucose (UA) Urine Ketones Urine Occult Blood Urine Nitrite Urine Bilirubin Urine Urobilinogen Ur Leukocyte Esterase Urine RBC Urine WBC Ur Squamous Epith Cells Urine Bacteria Urine Casts Urine Culture Comments Nasal Adenovirus (PCR) NOT DETECTED Nasal B. parapertussis DNA (PCR) NOT DETECTED Nasal Coronavir 229E PCR NOT DETECTED Nasal Coronavir HKU1 PCR NOT DETECTED Nasal Coronavir NL63 PCR NOT DETECTED Nasal Coronavir OC43 PCR NOT DETECTED Nasal Enterovir/Rhinovir PCR NOT DETECTED Nasal Influenza B PCR NOT DETECTED Nasal Influenza A PCR NOT DETECTED Nasal Parainfluen 1 PCR NOT DETECTED Nasal Parainfluen 2 PCR NOT DETECTED Nasal Parainfluen 3 PCR NOT DETECTED Nasal Parainfluen 4 PCR NOT DETECTED Nasal RSV (PCR) NOT DETECTED Nasal B.pertussis DNA PCR NOT DETECTED Nasal C.pneumoniae (PCR) NOT DETECTED [place] Human Metapneumo PCR NOT DETECTED Nasal M.pneumoniae (PCR) NOT DETECTED Nasal SARS-CoV-2 (PCR) NOT DETECTED 10/21/20 10/21/20 10/21/20 00:51 00:51 01:15 WBC RBC Hgb Hct MCV MCH MCHC RDW Plt Count MPV Neut # (Auto) Lymph # (Auto) Day # (Auto) Eos # (Auto) Baso # (Auto) Absolute Nucleated RBC Nucleated RBC % PT INR Sodium Potassium Chloride Carbon Dioxide Anion Gap BUN Creatinine Estimated GFR (MDRD) Glucose Calcium Magnesium Total Bilirubin AST ALT Alkaline Phosphatase Troponin I High Sens 154.8 H* B-Natriuretic Peptide Total Protein Albumin Globulin Albumin/Globulin Ratio TSH 5.16 Urine Color YELLOW Urine Clarity CLEAR Urine pH 5.0 Ur Specific [place] 1.015 Urine Protein NEGATIVE Urine Glucose (UA) NEGATIVE Urine Ketones NEGATIVE Urine Occult Blood NEGATIVE Urine Nitrite NEGATIVE Urine Bilirubin NEGATIVE Urine Urobilinogen 0.2 (NORMAL) Ur Leukocyte Esterase NEGATIVE Urine RBC None Seen Urine WBC 0-3 Ur Squamous Epith Cells NONE SEEN Urine Bacteria Rare Urine Casts 3-5 Hyaline Casts Urine Culture Comments NOT INDICATED Nasal Adenovirus (PCR) Nasal B. parapertussis DNA (PCR) Nasal Coronavir 229E PCR Nasal Coronavir HKU1 PCR Nasal Coronavir NL63 PCR Nasal Coronavir OC43 PCR Nasal Enterovir/Rhinovir PCR Nasal Influenza B PCR Nasal Influenza A PCR Nasal Parainfluen 1 PCR Nasal Parainfluen 2 PCR Nasal Parainfluen 3 PCR Nasal Parainfluen 4 PCR Nasal RSV (PCR) Nasal B.pertussis DNA PCR Nasal C.pneumoniae (PCR) [place] Human Metapneumo PCR Nasal M.pneumoniae (PCR) Nasal SARS-CoV-2 (PCR) 10/21/20 10/21/20 04:11 11:59 WBC RBC Hgb Hct MCV MCH MCHC RDW Plt Count MPV Neut # (Auto) Lymph # (Auto) Day # (Auto) Eos # (Auto) Baso # (Auto) Absolute Nucleated RBC Nucleated RBC % PT INR Sodium 147 H 143 Potassium 3.5 3.7 Chloride 105 101 Carbon Dioxide 35 H 36 H Anion Gap 7.0 6.0 BUN 25 H 24 H Creatinine 1.2 H 1.2 H Estimated GFR (MDRD) 43 L 43 L Glucose 82 111 H Calcium 8.2 L 8.1 L Magnesium Total Bilirubin AST ALT Alkaline Phosphatase Troponin I High Sens B-Natriuretic Peptide Total Protein Albumin Globulin Albumin/Globulin Ratio TSH Urine Color Urine Clarity Urine pH Ur Specific [place] Urine Protein Urine Glucose (UA) Urine Ketones Urine Occult Blood Urine Nitrite Urine Bilirubin Urine Urobilinogen Ur Leukocyte Esterase Urine RBC Urine WBC Ur Squamous Epith Cells Urine Bacteria Urine Casts Urine Culture Comments Nasal Adenovirus (PCR) Nasal B. parapertussis DNA (PCR) Nasal Coronavir 229E PCR Nasal Coronavir HKU1 PCR Nasal Coronavir NL63 PCR Nasal Coronavir OC43 PCR Nasal Enterovir/Rhinovir PCR Nasal Influenza B PCR Nasal Influenza A PCR Nasal Parainfluen 1 PCR Nasal Parainfluen 2 PCR Nasal Parainfluen 3 PCR Nasal Parainfluen 4 PCR Nasal RSV (PCR) Nasal B.pertussis DNA PCR Nasal C.pneumoniae (PCR) [place] Human Metapneumo PCR Nasal M.pneumoniae (PCR) Nasal SARS-CoV-2 (PCR) - DIAGNOSTIC IMAGING Diagnostic Imaging Results: Final report reviewed - TIME SPENT Time Spent in Discharge (Minutes): 44
[2020-10-21 18:34] VITALS: BP 115/67
== END 2020-10-21 18:25 | disposition short-term general hospital (02) | DRG 292 ==
LOC: EDUNIT# → ED 19:20 → MS2 20:36 → ICU 10-21 13:49
PROVIDERS: ADMIT Specialist; ATTEND Internal Medicine
DX: I11.0 Hypertensive heart disease with heart failure (principal); J81.0 Acute pulmonary edema; I10 Essential (primary) hypertension; N17.9 Acute kidney failure, unspecified; E87.0 Hyperosmolality and hypernatremia; I50.33 Acute on chronic diastolic (congestive) heart failure; I48.91 Unspecified atrial fibrillation; R00.1 Bradycardia, unspecified; R77.8 Other specified abnormalities of plasma proteins; F03.90 Unspecified dementia, unspecified severity, without behavioral disturbance, psychotic disturbance, mood disturbance, and anxiety; R32 Unspecified urinary incontinence; Z20.822 Contact with and (suspected) exposure to COVID-19; R62.59 Other lack of expected normal physiological development in childhood; E03.9 Hypothyroidism, unspecified; K59.09 Other constipation; F41.9 Anxiety disorder, unspecified; F20.9 Schizophrenia, unspecified; M19.90 Unspecified osteoarthritis, unspecified site; M10.9 Gout, unspecified; L40.9 Psoriasis, unspecified; Z79.01 Long term (current) use of anticoagulants; Z79.899 Other long term (current) drug therapy; Z86.711 Personal history of pulmonary embolism; Z86.718 Personal history of other venous thrombosis and embolism; Z87.440 Personal history of urinary (tract) infections
CPT/HCPCS: 36415; 71045; 80048; 80053; 81001; 83735; 83880; 84443; 84484; 85025; 85610; 87631; 87640; 93005; 93970; 96374; 99285; A9270; J1650; 0202U; 87086

== ENCOUNTER 2020-10-21 18:34 | Outpatient (CLI) | payer MEDICARE, MEDICAID | END 2020-10-21 18:35 | disposition short-term general hospital (02) | LOC: EMS 18:34 | PROVIDERS: ATTEND Surgery | DX: I48.91 Unspecified atrial fibrillation (principal); I50.9 Heart failure, unspecified; Z74.01 Bed confinement status | CPT/HCPCS: A0425; A0426 ==

== ENCOUNTER 2021-06-26 13:40 | Outpatient (CLI) | payer MEDICARE, MEDICAID | END 2021-06-26 13:41 | disposition critical access hospital (66) | LOC: EMS 13:40 | DX: R10.9 Unspecified abdominal pain (principal) | CPT/HCPCS: A0425; A0429 ==

== ENCOUNTER 2021-06-26 13:52 | Inpatient (IN) | payer MEDICARE, MEDICAID ==
--- NOTE | 2021-06-26 14:19 | ED Physician Documentation ---
PD HPI ABD PAIN - Stated complaint Stated Complaint: ABD PX - Chief complaint Chief Complaint: Abd Pain - History obtained from History obtained from: Patient, EMS - Additional information Additional information: Patient is brought to the emergency department by EMS from her adult family home for chief complaint of upper abdominal pain. The pain apparently began suddenly, though it is difficult to get a history out of this patient, secondary to cognitive delay and distress/pain. The patient indicates that the pain is in her upper abdomen, but cannot comment on whether she has had any nausea or change in her bowel movements. She cannot comment on whether there have been any fevers or dysuria. Review of the patient's records reveals that she has a history of Atrial fibrillation, congestive heart failure, developmental delay, and acute renal insufficiency apparently resolved. CT angiogram of the thorax did not reveal any or aortic pathology a year ago. No other complaints at this time. Review of Systems Ten Systems: 10 systems reviewed and negative Constitutional: reports: Reviewed and negative Eyes: reports: Reviewed and negative Ears: reports: Reviewed and negative Nose: reports: Reviewed and negative Throat: reports: Reviewed and negative Cardiac: reports: Reviewed and negative Respiratory: reports: Reviewed and negative GI: reports: Abdominal Pain : reports: Reviewed and negative Skin: reports: Reviewed and negative Musculoskeletal: reports: Reviewed and negative Neurologic: reports: Reviewed and negative Psychiatric: reports: Reviewed and negative Endocrine: reports: Reviewed and negative Immunocompromised: reports: Reviewed and negative PD PAST MEDICAL HISTORY - Past Medical History Cardiovascular: Congestive heart failure (diastolic on ECHO), Hypertension, Deep vein thrombosis (1998), Pulmonary embolism (1998) Respiratory: None Neuro: Dementia, Other Endocrine/Autoimmune: HyPOthyroidism GI: Chronic constipation 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 () : Incontinence, Chronic bladder infection Psych: Anxiety, Schizophrenia Musculoskeletal: Osteoarthritis, Gout, Other Derm: Psoriasis - Past Surgical History Past Surgical History: No HEENT: Cataracts - Present Medications Home Medications: Ambulatory Orders Medication Instructions Recorded Confirmed Levothyroxine [Synthroid] 75 mcg PO QDAC 07/22/19 10/21/20 Simvastatin [Zocor] 20 mg PO QPM 07/22/19 10/21/20 Torsemide 40 mg PO DAILY 07/22/19 10/21/20 Potassium Chloride 10 meq PO DAILY 01/11/20 10/21/20 Acetaminophen 1,000 mg PO TID 02/18/20 10/21/20 Ascorbic Acid 500 mg PO DAILY 02/18/20 10/21/20 Docusate Sodium 250Mg Capsule 250 mg PO DAILY 02/18/20 10/21/20 [Colace 250Mg Capsule] Diclofenac Sodium [Voltaren] 2 - 4 gm TOP BID PRN 04/12/20 10/21/20 EPINEPHrine [Epipen Jr] 0.3 mg IM ONCE PRN 04/12/20 10/21/20 Fluticasone [Flonase] 1 spray BÁRBARA BID 04/12/20 10/21/20 Hydrocortisone Acet/Aloe Vera 1 applic TOP BID PRN 04/12/20 10/21/20 [Nucort Lotion] Ketoconazole [Nizoral] 1 applic TOP .TIW PRN 04/12/20 10/21/20 Olopatadine HCl [Pataday] 1 drops EACHEYE DAILY PRN 04/12/20 10/21/20 traZODone [Desyrel] 200 mg PO QPM 04/12/20 10/21/20 Guaifenesin/Dextromethorphan 5 - 10 ml PO Q4H PRN 10/21/20 10/21/20 [Robafen Dm Peak Cold Liquid] Meloxicam [Mobic] 7.5 mg PO BID 10/21/20 10/21/20 QUEtiapine [SEROquel] 100 mg PO QPM 10/21/20 10/21/20 Quetiapine Fumarate [Seroquel] 50 mg PO DAILY 10/21/20 10/21/20 - Allergies Allergies/Adverse Reactions: Allergies Allergy/AdvReac Type Severity Reaction Status Date / Time Penicillins Allergy Unknown Verified 06/26/21 14:07 - Social History Does the pt smoke?: No Smoking Status: Never smoker Does the pt drink ETOH?: No Does the pt have substance abuse?: No - Immunizations Immunizations are current?: Yes Immunizations: TDAP >10years/unknown - POLST Patient has POLST: No POLST Status: Full Code PD ED PE NORMAL - Vitals Vital signs reviewed: Yes - General General: Well developed/nourished, Other (Patient is alert and in moderate distress, crying out in pain.) - HEENT HEENT: PERRL - Neck Neck: Supple, no meningeal sign - Cardiac Cardiac: RRR, No murmur, Strong equal pulses - Respiratory Respiratory: No respiratory distress, Clear bilaterally - Abdomen Abdomen: Soft, Non distended, Other (Diffuse moderate tenderness, no rebound or guarding.) - Derm Derm: Normal color, Warm and dry, No rash - Extremities Extremities: No deformity, No calf tenderness / cord, Other (Nonpitting edema bilateral feet.) - Neuro Neuro: Other (Alert. Patient is unable to comply with any further specific neurologic testing. She is moving all 4 extremities, and does follow some commands) - Psych Psych: Normal mood, Normal affect Results - Vitals Vitals: Vital Signs - 24 hr 06/26/21 06/26/21 06/26/21 14:00 16:07 17:56 Temperature 36.9 C Heart Rate 87 82 81 Respiratory 22 17 18 Rate Blood Pressure 142/120 H 119/56 L 118/82 H O2 Saturation 100 90 L 98 Oxygen O2 Source Nasal cannula - Labs Labs: Laboratory Tests 06/26/21 06/26/21 06/26/21 14:26 14:26 17:15 WBC 9.6 RBC 4.77 Hgb 13.8 Hct 45.4 MCV 95.2 MCH 28.9 MCHC 30.4 L RDW 22.3 H Plt Count 264 MPV 11.6 H Neut # (Auto) 8.5 H Lymph # (Auto) 0.8 L [place] # (Auto) 0.3 Eos # (Auto) 0.0 Baso # (Auto) 0.0 Absolute Nucleated RBC 0.00 Nucleated RBC % 0.0 RBC Morph Micro Appear 4+ ANISOCYTOSIS Sodium 141 Potassium 4.2 Chloride 100 L Carbon Dioxide 27 Anion Gap 14.0 H BUN 32 H Creatinine 1.3 H Estimated GFR (MDRD) 40 L Glucose 156 H Lactic Acid 2.3 H Calcium 9.3 Total Bilirubin 0.6 AST 24 ALT 23 Alkaline Phosphatase 147 H Total Protein 7.1 Albumin 3.6 Globulin 3.5 Albumin/Globulin Ratio 1.0 Lipase 42 - Rads (name of study) CT abd/pelvis Radiology: Final report received, EMP read indepedently, See rad report (perforated viscus) PD MEDICAL DECISION MAKING - ED course Complexity details: reviewed old records, reviewed results, re-evaluated patient, considered differential ED course: The pt seemed to be in quite a bit of discomfort, but due to her cognitive condition, as well as her distress, it was difficult to get a clear history from her. She was worked up with labs, which were unremarkable, and a CT of the abdomen and pelvis, which showed free fluid and free air, indicating a perforated viscus. I discussed the case with Dr. Dobson, who agreed to take the pt to OR and admit. Pt was given a dose of cefipime in the ED. She had also been treated with serial doses of Dilaudid for her pain. Departure - Departure Disposition: ED Transfer to [facility] Clinical Impression: Perforated abdominal viscus Condition: Serious Discharge Date/Time: 06/26/21 19:00
[2021-06-26 14:32] LABS: BASOPHILS % (AUTO) 0.4 %; EOSINOPHILS % (AUTO) 0.3 %; HCT - HEMATOCRIT 45.4 % (37.0-47.0); HGB - HEMOGLOBIN 13.8 g/dL (12.0-16.0); LYMPHOCYTES # (AUTO) 0.8 10^3/uL (1.5-3.5); LYMPHOCYTES % (AUTO) 7.9 %; MEAN CORPUSCULAR HEMOGLOBIN 28.9 pg (27.0-31.0); MEAN CORPUSCULAR HGB CONC 30.4 g/dL (32.0-36.0); MEAN CORPUSCULAR VOLUME 95.2 fL (81.0-99.0); MEAN PLATELET VOLUME 11.6 fL (7.9-10.8); MONOCYTES # (AUTO) 0.3 10^3/uL (0.0-1.0); MONOCYTES % (AUTO) 2.9 %; NEUTROPHILS # (AUTO) 8.5 10^3/uL (1.5-6.6); NEUTROPHILS % (AUTO) 88.4 %; PLT - PLATELET COUNT 264 10^3/uL (130-450); RED BLOOD COUNT 4.77 10^6/uL (4.20-5.40); RED CELL DISTRIBUTION WIDTH 22.3 % (12.0-15.0); WHITE BLOOD COUNT 9.6 x10^3/uL (4.8-10.8)
[2021-06-26 14:33] LABS: RBC MORPHOLOGY (MULTIPLE) 4+ ANISOCYTOSIS (NORMAL)
[2021-06-26 14:45] LABS: ALBUMIN 3.6 g/dL (3.2-5.5); BILIRUBIN,TOTAL 0.6 mg/dL (0.2-1.0); CALCIUM 9.3 mg/dL (8.5-10.3); CREATININE 1.3 mg/dL (0.4-1.0); POTASSIUM 4.2 mmol/L (3.5-5.0); TOTAL PROTEIN 7.1 g/dL (6.7-8.2)
[2021-06-26] MEDS ORDERED: IOVERSOL 320 100 ML VIAL IVP ONE ×2 (15:22→20:47)
[2021-06-26] MEDS ORDERED: HYDROmorphone 1 MG/ML CARPUJECT IVP STA ×2 (15:44→17:18)
--- NOTE | 2021-06-26 17:54 | CT Report ---
PROCEDURE: Abdomen/Pelvis W INDICATIONS: abd pain, developmental delay CONTRAST: IV CONTRAST: Optiray 320 ml: 100 PO CONTRAST: *NO PO CONTRAST TECHNIQUE: After the administration of IV contrast, 5 mm thick sections acquired from the diaphragms to the symp hysis. 5 mm thick coronal and sagittal reformats were acquired. For radiation dose reduction, the f ollowing was used: automated exposure control, adjustment of mA and/or kV according to patient size. COMPARISON: Chest CT 01/12/2020 FINDINGS: Image quality: Adequate. ABDOMEN: Lung bases: The heart is diffusely enlarged. Multi lead pacemaker leads are partially imaged. Moderat e-sized bilateral pleural effusions. Dense bibasilar atelectatic changes. Solid organs: Liver and spleen are normal in size and enhancement. Gallbladder demonstrates pericho lecystic edema, probably reactive. Biliary system is non dilated. Pancreas enhances normally. No a drenal nodules. Kidneys demonstrate normal size and enhancement, without hydronephrosis. Peritoneum and bowel: There is extraluminal gas layering along the anterior abdominal wall, more so in the epigastric region. There are several loops of distended and redundant colon layering anteriorl y. There are small segments of normal caliber colon. There is a questionable transition point proxima l descending colon, but without a discrete mass or fecal material. The distal stomach is decompressed and there is moderate antral edema. The proximal duodenum is decom pressed. There is free air immediately adjacent to the second portion of the duodenum. Diffuse generalized inflammatory changes are present throughout the peritoneum including fat strandin g and mild ascites. Nodes and vessels: No retroperitoneal or mesenteric adenopathy by size criteria. Aorta and inferior vena cava are normal in size. Miscellaneous: No ventral hernias. Diffuse anasarca. PELVIS: Genitourinary: Urinary bladder is partially filled, and the wall is mildly thickened in the mucosa is hyperemic. The uterus is within normal limits. Miscellaneous: No inguinal hernias or adenopathy. Bones: Severe, chronic appearing, nonunited left hip fracture, left hip joint effusion, and a cortica john dystrophic calcification. There is partially calcified left trochanteric bursitis. IMPRESSION: 1. Free air with etiology most likely of perforated duodenal or gastric ulcer. 2. Probably reactive colonic distention. Less likely colonic perforation as etiology of free air. A d iscrete transition point other than stricture of the colon is not seen. 3. Generalized third spacing of fluid indicated by ascites, effusions, and anasarca. 4. Chronic appearing left hip fracture. 5. Discussed with Dr. Pennington in the emergency room at 1743 hours. Reviewed by: Stephanie Shah MD on 06/26/2021 5:53 PM PDT Approved by: Stephanie Shah MD on 06/26/2021 5:53 PM PDT Station ID: [id number]
[2021-06-26] MEDS ORDERED: CEFEPIME 2 GM in SODIUM CHLORIDE 0.9% MINIBAG 100 ML IV STA (17:58)
--- NOTE | 2021-06-26 18:48 | HISTORY & PHYSICAL EXAMINATION ---
HPI - Admitted From Admitted from: ED - History Obtained From Records Reviewed: Old records reviewed Exam limitations: Other (Limitation due to cognitive delay and discomfort.) - History of Present Illness Pain/Problem Location Description: Perforated viscus Severity at the worst: reports: Severe HPI Comment/Other: Felisha presents from a local adult family home with acute onset of abdominal pain this morning.Additional history is difficult to obtain due to patient's cognitive and communication challenges.She is complaining of abdominal pain, thirst, and right knee pain.As I am talking to her she repeatedly says I hurt, I hurt.I asked her if it was explained to her that there was a hole in her stomach or in her bowel and she shakes her head yes.I asked her if she would like to have surgery to fix this whole and she says yes.I expressed to her that this lashonda l mean she will stay in the hospital and she continues to shake her head yes.I expressed to her that this likely represents a life and illness.David Alexis has interviewed the patient as well and reports that she is documented as her own decision maker in multiple locations.Felisha has an extensive past medical history that is documented in part by paperwork from [facility]. 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 () : positive: Incontinence, Chronic bladder infection Psych: positive: Anxiety, Schizophrenia Musculoskeletal: positive: Osteoarthritis, Gout, Other Derm: positive: Psoriasis MRSA Hx?: No - Past Surgical History HEENT: positive: Cataracts Social & Family Hx - Living Situation Living Arrangement: Other ([facility]) Living Situation: Other (She reports she has had the same caregiver for the last 22 years) - Social History Does the pt smoke?: No Smoking Status: Never smoker Does the pt drink ETOH?: No Does the pt have substance abuse?: No - POLST Patient has POLST: No POLST Status: Full Code Meds/Allgy - Home Medications Home Medications: Ambulatory Orders Medication Instructions Recorded Confirmed Levothyroxine [Synthroid] 75 mcg PO QDAC 07/22/19 10/21/20 Simvastatin [Zocor] 20 mg PO QPM 07/22/19 10/21/20 Torsemide 40 mg PO DAILY 07/22/19 10/21/20 Potassium Chloride 10 meq PO DAILY 01/11/20 10/21/20 Acetaminophen 1,000 mg PO TID 02/18/20 10/21/20 Ascorbic Acid 500 mg PO DAILY 02/18/20 10/21/20 Docusate Sodium 250Mg Capsule 250 mg PO DAILY 02/18/20 10/21/20 [Colace 250Mg Capsule] Diclofenac Sodium [Voltaren] 2 - 4 gm TOP BID PRN 04/12/20 10/21/20 EPINEPHrine [Epipen Jr] 0.3 mg IM ONCE PRN 04/12/20 10/21/20 Fluticasone [Flonase] 1 spray BÁRBARA BID 04/12/20 10/21/20 Hydrocortisone Acet/Aloe Vera 1 applic TOP BID PRN 04/12/20 10/21/20 [Nucort Lotion] Ketoconazole [Nizoral] 1 applic TOP .TIW PRN 04/12/20 10/21/20 Olopatadine HCl [Pataday] 1 drops EACHEYE DAILY PRN 04/12/20 10/21/20 traZODone [Desyrel] 200 mg PO QPM 04/12/20 10/21/20 Guaifenesin/Dextromethorphan 5 - 10 ml PO Q4H PRN 10/21/20 10/21/20 [Robafen Dm Peak Cold Liquid] Meloxicam [Mobic] 7.5 mg PO BID 10/21/20 10/21/20 QUEtiapine [SEROquel] 100 mg PO QPM 10/21/20 10/21/20 Quetiapine Fumarate [Seroquel] 50 mg PO DAILY 10/21/20 10/21/20 - Allergies Allergies/Adverse Reactions: Allergies Allergy/AdvReac Type Severity Reaction Status Date / Time Penicillins Allergy Unknown Verified 06/26/21 14:07 Review of Systems - Other Findings Other Findings: Unable to obtain a reliable review of systems beyond what was obtained in the history of present illness. Exam - Vital Signs Reviewed Vital Signs: Yes Vital Signs: Vital Signs x48h Temp Pulse Resp BP Pulse Ox 09/29/21 18:22 82 17 114/91 H 100 06/26/21 17:56 81 18 118/82 H 98 06/26/21 16:07 82 17 119/56 L 90 L 06/26/21 14:00 36.9 C 87 22 142/120 H 100 - Physical Exam General Appearance: positive: Moderate distress, Lethargic Eyes Bilateral: positive: Other (Disconjugate gaze is noted without scleral icte lizzie) ENT: positive: Dry mucous membranes, Other (Mucus secretions are noted draining down the right side of her face) Neck: positive: Trachea midline Respiratory: positive: No respiratory distress, Other (Rhonchorous breath sounds bilaterally) Cardiovascular: positive: Regular rate & rhythm Peripheral Pulses: positive: 0 Abdomen: positive: Tenderness, Guarding, Rebound Skin: positive: No rash, Pallor Neurologic/Psychiatric: positive: Slurred/abnml speech Comments/Other: Felisha is a very ill-appearing lady with lower extremity anasarca Results - Lab Results Lab results reviewed: Yes Fish Bones: 06/26/21 14:26 06/26/21 14:26 Other Lab Results: Lab Results x24hrs 06/26/21 06/26/21 06/26/21 Range/Units 17:15 14:26 14:26 WBC 9.6 (4.8-10.8) x10^3/uL RBC 4.77 (4.20-5.40) 10^6/uL Hgb 13.8 (12.0-16.0) g/dL Hct 45.4 (37.0-47.0) % MCV 95.2 (81.0-99.0) fL MCH 28.9 (27.0-31.0) pg MCHC 30.4 L (32.0-36.0) g/dL RDW 22.3 H (12.0-15.0) % Plt Count 264 (130-450) 10^3/uL MPV 11.6 H (7.9-10.8) fL Neut # (Auto) 8.5 H (1.5-6.6) 10^3/uL Lymph # (Auto) 0.8 L (1.5-3.5) 10^3/uL [place] # (Auto) 0.3 (0.0-1.0) 10^3/uL Eos # (Auto) 0.0 (0.0-0.7) 10^3/uL Baso # (Auto) 0.0 (0.0-0.1) 10^3/uL Absolute Nucleated RBC 0.00 x10^3/uL Nucleated RBC % 0.0 /100WBC RBC Morph Micro Appear 4+ ANISOCYTOSIS (NORMAL) Sodium 141 (135-145) mmol/L Potassium 4.2 (3.5-5.0) mmol/L Chloride 100 L (101-111) mmol/L Carbon Dioxide 27 (21-32) mmol/L Anion Gap 14.0 H (6-13) BUN 32 H (6-20) mg/dL Creatinine 1.3 H (0.4-1.0) mg/dL Estimated GFR (MDRD) 40 L (>89) Glucose 156 H (70-100) mg/dL Lactic Acid 2.3 H (0.5-2.2) mmol/L Calcium 9.3 (8.5-10.3) mg/dL Total Bilirubin 0.6 (0.2-1.0) mg/dL AST 24 (10-42) IU/L ALT 23 (10-60) IU/L Alkaline Phosphatase 147 H (42-121) IU/L Total Protein 7.1 (6.7-8.2) g/dL Albumin 3.6 (3.2-5.5) g/dL Globulin 3.5 (2.1-4.2) g/dL Albumin/Globulin Ratio 1.0 (1.0-2.2) Lipase 42 (22-51) U/L - Diagnostic Imaging Results Diagnostic Imaging Results Comments: PT NAME: FELISHA SWARTZ MR#: [id number] REG ER/ED AGE: 81 CI DT/TM: 06/26/21 PCP: : 1940 ATT: SEX: F ORD: Hortencia funk MD EXAM: [id number] CT/ABPEW ([id number]) PROCEDURE: Abdomen/Pelvis W INDICATIONS: abd pain, developmental delay CONTRAST: IV CONTRAST: Optiray 320 ml: 100 PO CONTRAST: *NO PO CONTRAST TECHNIQUE: After the administration of IV contrast, 5 mm thick sections acquired from the diaphragms to the symphysis. 5 mm thick coronal and sagittal reformats were acquired. For radiation dose reduction, the following was used: automated exposure control, adjustment of mA and/or kV according to patient size. COMPARISON: Chest CT 01/12/2020 FINDINGS: Image quality: Adequate. ABDOMEN: Lung bases: The heart is diffusely enlarged. Multi lead pacemaker leads are part ially imaged. Moderate-sized bilateral pleural effusions. Dense bibasilar atelectatic changes. Solid organs: Liver and spleen are normal in size and enhancement. Gallbladder demonstrates pericholecystic edema, probably reactive. Biliary system is non dilated. Pancreas enhances normally. No adrenal nodules. Kidneys demonstrate normal size and enhancement, without hydronephrosis. Peritoneum and bowel: There is extraluminal gas layering along the anterior abdominal wall, more so in the epigastric region. There are several loops of distended and redundant colon layering anteriorly. There are small segments of normal caliber colon. There is a questionable transition point proximal descending colon, but without a discrete mass or fecal material. The distal stomach is decompressed and there is moderate antral edema. The proximal duodenum is decompressed. There is free air immediately adjacent to the second portion of the duodenum. Diffuse generalized inflammatory changes are present throughout the peritoneum including fat stranding and mild ascites. Nodes and vessels: No retroperitoneal or mesenteric adenopathy by size criteria. Aorta and inferior vena cava are normal in size. Miscellaneous: No ventral hernias. Diffuse anasarca. PELVIS: Genitourinary: Urinary bladder is partially filled, and the wall is mildly thickened in the mucosa is hyperemic. The uterus is within normal limits. Miscellaneous: No inguinal hernias or adenopathy. Bones: Severe, chronic appearing, nonunited left hip fracture, left hip joint effusion, and a corticated dystrophic calcification. There is partially calcified left trochanteric bursitis. IMPRESSION: 1. Free air with etiology most likely of perforated duodenal or gastric ulcer. 2. Probably reactive colonic distention. Less likely colonic perforation as etiology of free air. A discrete transition point other than stricture of the colon is not seen. 3. Generalized third spacing of fluid indicated by ascites, effusions, and anasarca. 4. Chronic appearing left hip fracture. 5. Discussed with Dr. Pennington in the emergency room at 1743 hours. Reviewed by: Stephanie Shah MD on 06/26/2021 5:53 PM PDT Approved by: Stephanie Shah MD on 06/26/2021 5:53 PM PDT Station ID: [id number] Security Systems Manager: SARA Paul Radiologist: Stephanie Shah MD Releasing Radiologist: Stephanie Shah MD Released Date Time: 06/26/211752 Impression/Plan - Problem List Problem List: Very ill and generally debilitated 81-year-old lady with multiple severe underlying medical problems who presents with a perforated Viscus, most likely an ulcer.I have attempted to discuss the risks and benefits of surgery with her. She understands that this is a major operation and likely a life and situation.She has expressed her desire to have the procedure by shaking her head and by verbally saying yes. I expressed an expectation that she will be admitted to the intensive care unit postoperatively and will need nutritional support.She continued to shake her set her head yes and to sign the consent in the presence of witnesses.
--- NOTE | 2021-06-26 18:52 | ANESTHESIA ---
Pre-Anesthesia VS, & Labs - Diagnosis perforated ulcer - Procedure exploratory laparotomy Vital Signs: Temp Pulse Resp BP Pulse Ox 36.9 C 82 17 114/91 H 100 06/26/21 14:00 06/26/21 18:22 06/26/21 18:22 06/26/21 18:22 06/26/21 18:22 Height: 5 ft 6 in Weight (kg): 74.843 kg Body Mass Index: 26.6 BMI Classification: Overweight - NPO Last Food Intake: full stomach - Is Patient ?: No - Lab Results Current Lab Results: Laboratory Tests 06/26/21 17:15: Lactic Acid 2.3 H 06/26/21 14:26: Sodium 141, Potassium 4.2, Chloride 100 L, Carbon Dioxide 27, Anion Gap 14.0 H, BUN 32 H, Creatinine 1.3 H, Estimated GFR (MDRD) 40 L, Glucose 156 H, Calcium 9.3, Total Bilirubin 0.6, AST 24, ALT 23, Alkaline Phosphatase 147 H, Total Protein 7.1, Albumin 3.6, Globulin 3.5, Albumin/Globulin Ratio 1.0, Lipase 42 06/26/21 14:26: WBC 9.6, RBC 4.77, Hgb 13.8, Hct 45.4, MCV 95.2, MCH 28.9, MCHC 30.4 L, RDW 22.3 H, Plt Count 264, MPV 11.6 H, Neut # (Auto) 8.5 H, Lymph # (Auto) 0.8 L, [place] # (Auto) 0.3, Eos # (Auto) 0.0, Baso # (Auto) 0.0, Absolute Nucleated RBC 0.00, Nucleated RBC % 0.0, RBC Morph Micro Appear 4+ ANISOCYTOSIS Lab results reviewed: Yes Fish Bones: 06/26/21 14:26 06/26/21 14:26 Home Medications and Allergies Levothyroxine [Synthroid] 75 mcg PO QDAC 07/22/19 Simvastatin [Zocor] 20 mg PO QPM 07/22/19 Torsemide 40 mg PO DAILY 07/22/19 Potassium Chloride 10 meq PO DAILY 01/11/20 Acetaminophen 1,000 mg PO TID 02/18/20 Ascorbic Acid 500 mg PO DAILY 02/18/20 Docusate Sodium 250Mg Capsule [Colace 250Mg Capsule] 250 mg PO DAILY 02/18/20 Diclofenac Sodium [Voltaren] 2 - 4 gm TOP BID PRN 04/12/20 EPINEPHrine [Epipen Jr] 0.3 mg IM ONCE PRN 04/12/20 Fluticasone [Flonase] 1 spray BÁRBARA BID 04/12/20 Hydrocortisone Acet/Aloe Vera [Nucort Lotion] 1 applic TOP BID PRN 04/12/20 Ketoconazole [Nizoral] 1 applic TOP .TIW PRN 04/12/20 Olopatadine HCl [Pataday] 1 drops EACHEYE DAILY PRN 04/12/20 traZODone [Desyrel] 200 mg PO QPM 04/12/20 Guaifenesin/Dextromethorphan [Robafen Dm Peak Cold Liquid] 5 - 10 ml PO Q4H PRN 10/21/20 Meloxicam [Mobic] 7.5 mg PO BID 10/21/20 QUEtiapine [SEROquel] 100 mg PO QPM 10/21/20 Quetiapine Fumarate [Seroquel] 50 mg PO DAILY 10/21/20 Allergies/Adverse Reactions: Allergies Allergy/AdvReac Type Severity Reaction Status Date / Time Penicillins Allergy Unknown Verified 06/26/21 14:07 Anes History & Medical History - Anesthetic History Anesthesia Complications: reports: No previous complications Family history of Anesthesia Complications: Denies Family history of Malignant Hyperthermia: Denies - Medical History Cardiovascular: reports: Congestive heart failure (diastolic on ECHO), Hypertension, Deep vein thrombosis (1998), Pulmonary embolism (1998) Pulmonary: reports: None Gastrointestinal: reports: Chronic constipation Urinary: reports: Incontinence, Chronic bladder infection Neuro: reports: Dementia, Other Musculoskeletal: reports: Osteoarthritis, Gout, Other Endocrine/Autoimmune: reports: HyPOthyroidism Blood Disorders: reports: None Skin: reports: Psoriasis Smoking Status: Never smoker - Surgical History Eyes Ears Nose Throat (EENT): reports: Cataracts Exam General: Mild distress, Other (dementia) Dental: Dentures full Upper, Dentures full Lower Mouth Openin Fingerbreadth Neck Mobility: Reduced Mallampati classification: III Thyromental Distance: 4-6 cm Respiratory: Normal breath sounds, Decreased breath sounds Mental/Cognitive Status: Alert/Oriented X3, Normal for patient Cognitive Status: Within normal limits Plan Anesthesia Type: General, Other (CVL placement) Consent for Procedure(s) Verified and Reviewed: Yes Code Status: Attempt Resuscitation ASA classification: 4-Incapacitating disease Is this case an emergency?: Yes
[2021-06-26] MEDS ORDERED: HYDROmorphone 0.5 MG/0.5 ML SYRINGE IVP PRN ×2 (18:54→20:54)
[2021-06-26] MEDS ORDERED: fentaNYL 100 MCG/2 ML VIAL IVP PRN (18:54)
[2021-06-26] MEDS ORDERED: ONDANSETRON 4 MG/2 ML VIAL IVP PRN ×2 (18:54→20:54)
[2021-06-26] MEDS ORDERED: MORPHINE 2 MG/ML CARPUJECT IVP PRN (18:54)
[2021-06-26] MEDS ORDERED: ATROPINE ABBOJECT 1 MG/10 ML SYRINGE IVP PRN (18:54)
[2021-06-26] MEDS ORDERED: NALOXONE 0.4 MG/ML VIAL IVP PRN (18:54)
[2021-06-26] MEDS ORDERED: ePHEDrine 50 MG/ML VIAL IVP PRN (18:54)
[2021-06-26] MEDS ORDERED: METOCLOPRAMIDE 10 MG/2 ML VIAL IVP PRN (18:54)
[2021-06-26] MEDS ORDERED: LACTATED RINGERS 1,000 ML IV SCH (19:00)
[2021-06-26] MEDS ORDERED: LIDOCAINE 2%-EPI 1:100000 20 ML MDV ONE (19:05)
[2021-06-26] MEDS ORDERED: BUPIVACAINE 0.25% PF 30 ML VIAL ONE (19:05)
--- NOTE | 2021-06-26 20:18 | ANESTHESIA PROCEDURE NOTE ---
Anesth Central Line Template - Central Line Central Line Preparation: Unable to obtain consent, Time out completed, Ultra sound used, Sterile prep and drape Central line location: Right IJ Central line type: Triple lumen Central line catheter tip site resides: Superior vena cava (SVC) Central line aftercare: Chlorhexidine disc placed, Secured, No complications Other Info/Details: 20cm cath sutured at 16. Will confrm placement in ICU with ETT in single PCXR
[2021-06-26] MEDS ORDERED: LIDOCAINE 2%-EPI 1:100000 20 ML MDV SUBQ ONE (20:38)
[2021-06-26] MEDS ORDERED: BUPIVACAINE 0.25% PF 30 ML VIAL SUBQ ONE (20:39)
[2021-06-26] MEDS ORDERED: BENZOCAINE/TETRACAINE/BUTAMBEN 20 GM MM PRN (20:54)
--- NOTE | 2021-06-26 21:22 | ANESTHESIA POST OP EVALUATION ---
Anesthesia Post Eval - Post Anesthesia Eval Vitals: Last Vital Signs Temp 36.9 C 06/26/21 14:00 Pulse 82 06/26/21 18:22 Resp 17 06/26/21 18:22 BP 114/91 H 06/26/21 18:22 Pulse Ox 100 06/26/21 18:22 CV Function Including HR & BP: Stable (96/55, continuing to emerge from anesthesia gas) Pain Control: Satisfactory Nausea & Vomiting: Negative Mental Status: Other (intubated, sedated) Respiratory Status: Airway Patent (7.5ETT@21) Hydration Status: Satisfactory (3+ pitting edema to BLE, hx CHF) Anesthesia Complications: None
--- NOTE | 2021-06-26 21:40 | XRAY Report ---
PROCEDURE: Chest for Line Placement INDICATIONS: line placement TECHNIQUE: One view of the chest was acquired. COMPARISON: 10/20/2020 FINDINGS: Surgical changes and devices: Endotracheal tube tip 1.6 cm from the sosa. Right IJ central venous l ine projecting in the expected location of mid SVC. Nasogastric tube tip below the diaphragm. ICD aden roaching from the left with 2 leads in the heart.. Lungs and pleura: Bilateral midlung streaky alveolar opacities. Diffuse interstitial thickening. Smal l bilateral pleural effusions. Mediastinum: Mediastinal contours appear normal. Heart size is normal. Bones and chest wall: No suspicious bony lesions. Overlying soft tissues appear unremarkable. IMPRESSION: 1. Endotracheal tube tip 1.6 cm from the sosa. 2. Right IJ central venous line projecting over the mid SVC. 3. Bilateral alveolar opacities and bibasilar effusions. Reviewed by: Stephanie Shah MD on 06/26/2021 9:39 PM PDT Approved by: Stephanie Shah MD on 06/26/2021 9:39 PM PDT Station ID: [id number]
[2021-06-26] MEDS: LORazepam 2 MG/ML VIAL IVP PRN (21:48)
[2021-06-26] MEDS: SODIUM CHLORIDE FLUSH 0.9% 10 ML SYRINGE IVP PRN (21:58)
[2021-06-26] MEDS: SODIUM CHLORIDE FLUSH 0.9% 10 ML SYRINGE IVP SCH (21:58)
[2021-06-26] MEDS: ACETAMINOPHEN 1,000 MG/100 ML 100 ML IV SCH (22:04)
[2021-06-26] MEDS ORDERED: LACTATED RINGERS 1,000 ML IV ONE (22:14)
[2021-06-26] MEDS: DEXMEDETOMIDINE 400 MCG/100 ML 100 ML IV SCH (23:05)
[2021-06-26] MEDS: DEXTROSE 5%-0.9% NACL 1,000 ML IV SCH (23:07)
[2021-06-26] MEDS: metroNIDAZOLE 500 MG/100 ML 500 MG/100 ML BAG IV SCH (23:13)
[2021-06-27 00:07] LABS: ABG BASE EXCESS -2.6 mmol/L (-2.0-3.0); ABG HCO3 19.6 mmol/L (22.0-26.0); ABG OXYGEN SATURATION 99 % (94-98); ABG PCO2 27 mmHg (34-45); ABG PH 7.48 (7.35-7.45); ABG TCO2 20.4 MMOL/L (21.0-29.0); ALLEN TEST POSITIVE
[2021-06-27 00:08] LABS: ABG PO2 203 mmHg (80-100)
[2021-06-27 00:09] LABS: ABG MODE OF VENTILATION SIMV; ABG RESPIRATORY RATE 18 b/min
--- NOTE | 2021-06-27 00:28 | CONSULTATION NOTE ---
Referring Provider Name of Referring Provider:: Aline Dobson Consult Date: 06/26/21 Chief Complaint - Chief Complaint Chief Complaint: managment of vent and medical status in post op patient History of Present Illness - Admitted From Admitted From:: [facility] - History Obtained From Records Reviewed: [facility] History obtained from: Dr. Dobson Exam Limitations: patient is intubated and sedated - History of Present Illness HPI Comment/Other: This is a 81-year-old white female who lives in a detention and has schizophrenia. 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 With her last admission in September 2020 the patient did not have a power of defense attorney. Social work had left a message with her senior case manager Yfn Gil at that point in time to see if a power of defense attorney could be appointed. If not, the patient is considered independent with the ability to make her own medical decisions. She was brought in by EMS at 2:00 in the afternoon. She was diagnosed with a urinary tract infection on Thursday (today is Thursday) and is on antibiotics. She had abrupt onset of abdominal pain. In the ER temperature was 36.9. Heart rate 87. Blood pressure 142/120. Respirations 22 and she was 100% saturated on room air. The ER doctor found it difficult to get a history because of her cognitive deficits and her distress and pain. Pain seem to be in the epigastrium. The abdomen was soft, nondistended. Diffuse moderate tenderness without rebound or guarding. She was in moderate distress, crying out in pain. The CT of the abdomen showed free air that was most likely perforated duodenal or gastric ulcer. Reactive colonic distention. Generalized third spacing of fluid indicated by ascites, effusions, anasarca. Chronic appearing left hip fracture. I am being asked to see her in the postoperative setting by Dr. Dobson who has taken this patient emergently to the operating room for a ruptured duodenal ulcer that ruptured posteriorly. She is undergone an exploratory laparotomy with mesh repair of a gastric perforation. Intraoperative blood loss was minimal. She was initially quite hypotensive but with fluid resuscitation they were able to bring her blood pressure up to that she made 60 cc an hour of urine. Dr. Dobson is keeping her on the ventilator overnight because of her serious condition. Plan is to reevaluate her in the morning with extubation planned. She will be started on TPN. She was admitted in January 2020 here for a UTI complicated by elevated troponins. Troponins peaked at over 400 and then went back down. EKG showed flattened T waves. Echocardiogram with January admit showed overall left ventricular systolic function that is normal with ejection fraction 55 to 60%. No regional wall motion abnormalities. Impaired relaxation consistent with grade 1 diastolic dysfunction. New biatrial enlargement seen. No significant valvular heart disease. Echocardiogram 1 month prior to her January admission was in December 2019. Her ejection fraction was 65 to 70%. No regional wall motion abnormalities. Right ventricle normal. RVSP was 43 mmHg. She was in sinus rhythm with the December 2019 echo, in the January 2020 echo. EKGs with the January 2020 admission were also sinus rhythm. At that time, she was seen in follow-up with cardiology. They felt that "she had the heart of a 80-year-old" and that there was no cause for worry or alarm. Coreg was stopped. She had already been on Lasix because of chronic leg edema. Subsequent to this, they evaluated the need for Lasix for leg edema. Also the evaluated the need for continuous anticoagulation in the face of a DVT and PE from 21 years ago. 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 They postulated that she developed a DVT with PE because of the new sedentary lifestyle. She been on Coumadin from that point on. However, she had significant knee pain that was really bothersome and was unable to take anything but Tylenol for pain control. They opted to take her off the Coumadin so that this would allow her to do nonsteroidal therapy to control her knee pain. She was not felt to need lifelong anticoagulation. They were also hoping to help her recurrent UTIs. Because of the knee pain she was having less and less ambulation and she was becoming incontinent of urine or not wanting to go pee. So she was getting recurrent UTIs. It also does not help that she hates to drink water. All sorts of things to try to get her to drink water. She refuses so they have been giv ing her lots of Pedialyte. The leg edema was diagnosed as lymphedema and she underwent lymphedema therapy with leg wraps, compression hose. She ended up on chronic Velcro wraps. And because her legs were doing so well the Lasix was discontinued. Her care provider postulates that the leg wraps were compressing the fluid out of her legs into her upper legs and her lower abdominal wall. Her lower abdominal wall seems to be developing edema as well. The edema then progressed to her legs. She seemed to be having recurrence of leg edema. She was not feeling well. Lasix 20 mg was started. Then a few days prior to September 2020 admission, she was seen by her provider where a chest x-ray showed pulmonary edema and it was increased to 40 mg. In spite of that she did not have increased urine output. Usually she seems to be sensitive to diuretics and will pee quite a bit. With this she did not have improved output. Edema and shortness of breath finally got to the point that shortness of breath was getting worse and worse. With the admission in September she was felt to have acute on chronic diastolic heart failure with new onset atrial fibrillation. Duplex was obtained of her lower extremities to make sure she did not have DVTs. During that stay, she had bradycardia and hypothermia of unclear etiology. TSH was normal. She was not felt to be infected. She was not on any AV jill blocking agents. Pauses started increasing with more frequency and went up to 7 seconds. Patient was asymptomatic. During those episodes she was not hypothermic. Pacemaker was discussed. The patient makes her own medical decisions. No power of defense attorney. The patient's sister is Hortencia Massey who can be reached at [phone]. The patient was transferred to [place] for a pacemaker. We do not have any of those records, but on today's CAT scan, there is a pacemaker in place. History - Past Medical History Cardiovascular: reports: Congestive heart failure (diastolic on ECHO), Hypertension, Deep vein thrombosis (1998), Pulmonary embolism (1998), Atrial fibrillation, Arrhythmia (sinus pauses resulting in pacer 09/2020) Respiratory: reports: Pneumonia (with admit in 2019) Neuro: reports: Dementia, Other (developmental delay and schizophrenia) Endocrine/Autoimmune: reports: HyPOthyroidism GI: reports: Chronic constipation SILVICULTURIST: reports: Other () : reports: Incontinence, Chronic bladder infection HEENT: reports: None Psych: reports: Anxiety, Schizophrenia Musculoskeletal: reports: Osteoarthritis, Gout Derm: reports: Psoriasis MRSA Hx?: No - Past Surgical History HEENT: reports: Cataracts - Family & Social History Family History Comment/Other: History obtained from her caregiver. Mom around age 97-98 of old age. Dad was not known by the caregiver so she does not know what he of. She has 2 sisters. One in [place] and one in [place]. [place] th are regarded as healthy. No children Living arrangement: Other (Adult family home-[place]) Living Situation: Other (She reports she has had the same caregiver for the last 22 years) Social History Notes: She lives on a farm with her mother all of her life until 1998. Mom at the age of 98-99. She then went to live in a detention. She has never smoked, never drank, and never had a problem with recreational substance abuse. However, she has cocaine toxicity and methamphetamine abuse noted in her problem list here. She has been at the detention for 21 years. There is no power of defense attorney. The last power of defense attorney this patient had was her mother. Since there has been no major medical decisions or financial decisions that have changed in the last 21 years, neither sister has assumed that role. The caregiver is Vanessa Bello at [phone]. She lives next door to the detention and sees this patient on a daily basis, several hours at a time. - Substance History Use: Uses substance without health or social issues: NONE - POLST Patient has POLST: No POLST Status: Full Code Meds/Allgy - Home Medications Home Medications: Ambulatory Orders Medication Instructions Recorded Confirmed Levothyroxine [Synthroid] 75 mcg PO QDAC 07/22/19 10/21/20 Simvastatin [Zocor] 20 mg PO QPM 07/22/19 10/21/20 Torsemide 40 mg PO DAILY 07/22/19 10/21/20 Potassium Chloride 10 meq PO DAILY 01/11/20 10/21/20 Acetaminophen 1,000 mg PO TID 02/18/20 10/21/20 Ascorbic Acid 500 mg PO DAILY 02/18/20 10/21/20 Docusate Sodium 250Mg Capsule 250 mg PO DAILY 02/18/20 10/21/20 [Colace 250Mg Capsule] Diclofenac Sodium [Voltaren] 2 - 4 gm TOP BID PRN 04/12/20 10/21/20 EPINEPHrine [Epipen Jr] 0.3 mg IM ONCE PRN 04/12/20 10/21/20 Fluticasone [Flonase] 1 spray BÁRBARA BID 04/12/20 10/21/20 Hydrocortisone Acet/Aloe Vera 1 applic TOP BID PRN 04/12/20 10/21/20 [Nucort Lotion] Ketoconazole [Nizoral] 1 applic TOP .TIW PRN 04/12/20 10/21/20 Olopatadine HCl [Pataday] 1 drops EACHEYE DAILY PRN 04/12/20 10/21/20 traZODone [Desyrel] 200 mg PO QPM 04/12/20 10/21/20 Guaifenesin/Dextromethorphan 5 - 10 ml PO Q4H PRN 10/21/20 10/21/20 [Robafen Dm Peak Cold Liquid] Meloxicam [Mobic] 7.5 mg PO BID 10/21/20 10/21/20 QUEtiapine [SEROquel] 100 mg PO QPM 10/21/20 10/21/20 Quetiapine Fumarate [Seroquel] 50 mg PO DAILY 10/21/20 10/21/20 - Allergies Allergies/Adverse Reactions: Allergies Allergy/AdvReac Type Severity Reaction Status Date / Time Penicillins Allergy Unknown Verified 06/26/21 14:07 Review of Systems - Other Findings Other Findings: At this time, this patient is intubated, with sedatives. Unable to obtain a review of systems. Exam - Vital Signs Reviewed Vital Signs: Yes Vital Signs: Vital Signs x48h Pulse Pulse Resp BP BP Pulse Ox 06/26/21 22:30 70 18 57/39 L 100 06/26/21 22:00 69 18 54/31 L 100 06/26/21 21:30 84 24 110/58 L 100 06/26/21 21:15 75 77 18 95/47 L 100 06/26/21 21:10 81 18 96/55 L 100 06/26/21 21:05 86 15 78/52 L 100 06/26/21 18:22 82 17 114/91 H 100 06/26/21 17:56 81 18 118/82 H 98 - Physical Exam General Appearance: positive: Other (Intubated elderly female, NG tube in right nares, central line and right IJ, bandages in the antecubital fossa's where previous lines were attempted. Unresponsive, on Precedex, fentanyl as needed, Dilaudid as needed, Ativan as needed, morphine as needed) Eyes Bilateral: positive: PERRL ENT: positive: No signs of dehydration Neck: positive: No JVD. negative: Stiff neck Respiratory: positive: No respiratory distress, Other (Patient is intubated with a tidal volume of 470, FiO2 60%, rate of 18, PEEP of 5.). negative: Wheezes, Rales, Rhonchi Cardiovascular: positive: Regular rate & rhythm, Systolic murmur. negative: Gallop/S4, Friction rub Peripheral Pulses: positive: 1+ Abdomen: positive: Other (No bowel sounds.) Skin: positive: Warm, Dry, Pallor, Other (anasarca of abdomen, buttocks, legs) Extremities: positive: Pedal edema, Other (Edema changes. Less serous oozing than she had before.) Neurologic/Psychiatric: positive: Other (Intubated and sedated) Conclusion/Plan - Problem List (1) Perforated duodenal ulcer Conclusion/Plan: Yellow caustic gastric fluid was found in the abdominal cavity as well as undigested pieces of vegetables. She is undergone exploratory lap, mesh repair of the perforated viscus, and is still intubated to protect airway and to support her during probable sepsis and hypotension. Plan: Transferred to ICU from the OR Reevaluate patient in the morning for possibility of extubation Surgery plans TPN Day #1 of Flagyl, Diflucan, cefepime In review of the chart there is no Covid testing done, will check for Covid status (2) Shock circulatory Conclusion/Plan: Preoperatively the patient was hypertensive. In the operating room she dropped her pressures and required aggressive fluid resuscitation. In the postoperative setting her systolic is dropped to the 60s. As such I have given her another bolus of lactated Ringer's, and of started Levophed. The cause of her shock most likely is peritonitis. She does have a previous history of an NSTEMI but intact left ventricular function. Will check troponin.We will check EKG (3) Lactic acidosis Conclusion/Plan: Has undergone surgery. Repair of her perforated duodenum. Empiric antibiotics are cefepime, Diflucan, metronidazole per general surgery. Will repeat lactic acid to trend response (4) Acute renal insufficiency Conclusion/Plan: This patient has normal renal function. Usual creatinine is 0.8-0.9. With her September UTI admission and NSTEMI admission creatinine went up to 1.2. Unclear if her post admission creatinine went down to normal. But with this admission her creatinine is 1.3. Plan: Continue to monitor Avoid nephrotoxic agents (5) History of pulmonary embolism Conclusion/Plan: Due to DVT. With her last admission in September this patient was on anticoagul ation. She had been on anticoagulation for several years. Then she went into atrial fibrillation. At this point in time anticoagulation medication is not on her current list from the outpatient setting. Will verify rhythm is sinus. I am hearing a regular rhythm. At this time will be DVT prophylaxis with Lovenox (6) History of atrial fibrillation Conclusion/Plan: check EKG. On tele she is NSR (7) Anasarca Conclusion/Plan: This patient is not in renal failure, and has controlled diastolic heart failure by history. Total protein on admission is 7.1 with albumin 3.6 so although nutritional deficit could be considered, it is not reflected in these labs.. She is not felt to have ascites from liver failure. There is no previous imaging of her liver or abdomen. There is no ultrasound for me to refer to. Current CT done with this admission shows a diffusely enlarged heart, bilateral pleural effusions, liver is in normal size without portal hypertension. Mild ascites. As such, the only thing I can go by is the enlarged heart on CT scan indicating decompensated heart failure. Her current ambulatory order set still has her on torsemide. But is my understanding that there is been medication changes regarding her Coreg and Lasix between September and now. We will need to verify with the facility what diuretic she is on, if any. We will start Lasix low dose if her pressure can tolerate it to increase urine output. (8) Developmental delay, mild Conclusion/Plan: In the past we have spoken to her Sister Katie, her care provider as well. When she was transferred to [place] the family was in the process of establishing her POA. We will have social work document that in the chart for us. (9) Schizophrenia Conclusion/Plan: She is currently n.p.o. Medications in the ambulatory setting are not yet verified by pharmacy. She has Desyrel, Seroquel on that list. We may need to find an IV equivalent of antipsychotics if she is n.p.o. with resultant deterioration in mental health. 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 Qualifiers: Hypothyroidism type: acquired Qualified Code(s): E03.9 - Hypothyroidism, unspecified - Lab Results Lab results reviewed: Yes Fish Bones: 06/26/21 14:26 06/26/21 14:26 - Diagnostic Imaging Results Diagnostic Imaging Results: positive: Final report reviewed - EKG Results EKG Interpreted Independently: No
[2021-06-27] MEDS ORDERED: FUROSEMIDE 20 MG/2 ML VIAL IVP STA (01:16)
[2021-06-27] MEDS: SODIUM CHLORIDE FLUSH 0.9% 10 ML SYRINGE IVP PRN ×4 (01:39→06:16)
[2021-06-27 02:01] LABS: BILIRUBIN,URINE NEGATIVE (NEGATIVE); GLUCOSE, URINE (UA) NEGATIVE (NEGATIVE); KETONES,URINE (UA) NEGATIVE (NEGATIVE); LEUKOCYTE ESTERASE, URINE TRACE (NEGATIVE); NITRITE,URINE NEGATIVE (NEGATIVE); OCCULT BLOOD,URINE NEGATIVE (NEGATIVE); PROTEIN,URINE NEGATIVE (NEGATIVE); UROBILINOGEN,URINE 0.2 (NORMAL) E.U./dL (NORMAL)
[2021-06-27 02:18] LABS: CLARITY,URINE CLEAR (CLEAR)
[2021-06-27 02:19] LABS: BACTERIA,URINE Few /HPF (None Seen); CASTS, URINE 3-5 Hyaline Casts /LPF; RBC,URINE 0-5 /HPF (0-5); SQUAMOUS EPITHELIAL CELL,UR FEW Squamous (<= Few)
[2021-06-27 02:51] LABS: CORONAVIRUS 229E-RESP PCR NOT DETECTED; CORONAVIRUS HKU1-RESP PCR NOT DETECTED; CORONAVIRUS NL63-RESP PCR NOT DETECTED; CORONAVIRUS OC43-RESP PCR NOT DETECTED
[2021-06-27 02:52] LABS: B. PARAPERTUSSIS- RESP PCR PAN NOT DETECTED; B. PERTUSSIS- RESP PCR PANEL NOT DETECTED; C. PNEUMONIAE- RESP PCR PANEL NOT DETECTED; HUMAN METAPNEUMOVIRUS NOT DETECTED; INFLUENZA A- RESP PCR PANEL NOT DETECTED; INFLUENZA B - RESP PCR PANEL NOT DETECTED; M. PNEUMONIAE- RESP PCR PANEL NOT DETECTED; PARAINFLUENZA VIRUS 1 NOT DETECTED; PARAINFLUENZA VIRUS 2 NOT DETECTED; PARAINFLUENZA VIRUS 3 NOT DETECTED; PARAINFLUENZA VIRUS 4 NOT DETECTED; RHINOVIRUS/ENTEROVIRUS NOT DETECTED; RSV- RESP PCR PANEL NOT DETECTED; SARS-CoV-2 -RESP PCR PANEL DETECTED
[2021-06-27] MEDS: ACETAMINOPHEN 1,000 MG/100 ML 100 ML IV SCH ×4 (03:23→22:05)
[2021-06-27 05:16] LABS: BASOPHILS % (AUTO) 0.5 %; EOSINOPHILS % (AUTO) 2.9 %; HCT - HEMATOCRIT 36.6 % (37.0-47.0); HGB - HEMOGLOBIN 11.7 g/dL (12.0-16.0); LYMPHOCYTES % (AUTO) 4.2 %; MEAN CORPUSCULAR HEMOGLOBIN 29.3 pg (27.0-31.0); MEAN CORPUSCULAR VOLUME 91.7 fL (81.0-99.0); MONOCYTES % (AUTO) 3.7 %; NEUTROPHILS % (AUTO) 88.4 %; PLT - PLATELET COUNT 231 10^3/uL (130-450); RED BLOOD COUNT 3.99 10^6/uL (4.20-5.40); RED CELL DISTRIBUTION WIDTH 21.7 % (12.0-15.0); WHITE BLOOD COUNT 12.5 x10^3/uL (4.8-10.8)
[2021-06-27 05:20] LABS: ABNORMAL LYMPHS % (MANUAL) 0 %
[2021-06-27 05:42] LABS: ALBUMIN 2.5 g/dL (3.2-5.5); ALBUMIN/GLOBULIN RATIO 0.8 (1.0-2.2); BILIRUBIN,TOTAL 0.8 mg/dL (0.2-1.0); CALCIUM 8.1 mg/dL (8.5-10.3); CREATININE 1.3 mg/dL (0.4-1.0); POTASSIUM 4.7 mmol/L (3.5-5.0); TOTAL PROTEIN 5.6 g/dL (6.7-8.2)
[2021-06-27 05:48] LABS: BAND NEUTROPHILS % (MANUAL) 26 %; LYMPHOCYTES # (MANUAL) 1.1 10^3/uL (1.5-3.5); LYMPHOCYTES % (MANUAL) 9 %; MONOCYTES # (MANUAL) 0.1 10^3/uL (0.0-1.0); NEUTROPHILS # (MANUAL) 11.3 10^3/uL (1.5-6.6)
[2021-06-27 05:50] LABS: DIFFERENTIAL COMMENT MANUAL DIFFERENTIAL; PLATELET ESTIMATE, MANUAL NORMAL (130-450,000) (NORMAL)
[2021-06-27 05:54] LABS: ABG HCO3 23.9 mmol/L (22.0-26.0); ABG PCO2 37 mmHg (34-45); ABG PH 7.43 (7.35-7.45); ABG PO2 124 mmHg (80-100)
[2021-06-27 05:55] LABS: ABG OXYGEN SATURATION 99 % (94-98); ALLEN TEST POSITIVE
[2021-06-27 05:56] LABS: ABG MODE OF VENTILATION SIMV; ABG RESPIRATORY RATE 16 b/min
[2021-06-27] MEDS ORDERED: CEFEPIME 1 GM in SODIUM CHLORIDE 0.9% MINIBAG 100 ML IV SCH (06:00)
[2021-06-27] MEDS: metroNIDAZOLE 500 MG/100 ML 500 MG/100 ML BAG IV SCH ×3 (06:10→22:35)
[2021-06-27] MEDS: PANTOPRAZOLE 40 MG VIAL IVP SCH (06:15)
[2021-06-27] MEDS: DEXMEDETOMIDINE 400 MCG/100 ML 100 ML IV SCH (06:36)
[2021-06-27] MEDS: DEXTROSE 5%-0.9% NACL 1,000 ML IV SCH ×2 (06:49→17:00)
[2021-06-27] MEDS ORDERED: LACTATED RINGERS 1,000 ML IV ONE (08:05)
[2021-06-27] MEDS ORDERED: FUROSEMIDE 20 MG/2 ML VIAL IVP SCH (09:00)
[2021-06-27] MEDS: FLUCONAZOLE 200 MG/100 ML 100 ML IV SCH (09:39)
[2021-06-27] MEDS: SODIUM CHLORIDE FLUSH 0.9% 10 ML SYRINGE IVP SCH ×2 (09:40→17:49)
[2021-06-27] MEDS: HYDROmorphone 1 MG/ML CARPUJECT IVP PRN ×2 (13:52→18:12)
--- NOTE | 2021-06-27 15:26 | PROVIDER PROGRESS NOTE ---
Subjective - General Admit Date: 06/26/21 Procedure Date: 06/26/21 Post Op Days: 1 Procedure Performed: Exploratory laparotomy with repair of posterior duodenal ulcer - Review of Systems Drain Type: 19 Georgian Tanner Drain Output Description: Serosanguineous - Other Other Information/Narrative: Gravely ill 81-year-old lady postop day one after exploratory laparotomy with repair of posteriorly perforated duodenal ulcer with madeleine peritonitis among many other complicating medical issues.She is sedated and intubated and excellently managed by the hospitalist service. Objective - Patient Data Vital Signs: Vital Signs x48h Temp Pulse Pulse Resp BP Pulse Ox 06/27/21 14:00 75 16 102/60 100 06/27/21 13:30 72 16 98/77 99 06/27/21 13:17 71 06/27/21 13:15 72 16 105/52 L 100 06/27/21 13:00 75 16 98/49 L 100 06/27/21 12:45 72 16 100/49 L 100 06/27/21 12:30 72 16 106/60 99 06/27/21 12:15 74 16 104/54 L 100 06/27/21 12:00 37.1 C 72 18 101/53 L 99 06/27/21 11:45 77 16 95/51 L 100 06/27/21 11:30 72 16 100/49 L 100 06/27/21 11:15 76 16 99/51 L 100 06/27/21 11:00 72 16 100/49 L 100 06/27/21 10:45 77 16 94/46 L 99 06/27/21 10:30 76 16 106/49 L 100 06/27/21 10:15 72 16 97/55 L 100 06/27/21 10:00 72 16 99/73 100 06/27/21 09:56 74 06/27/21 09:30 76 16 100/50 L 100 06/27/21 09:05 72 16 100/53 L 100 06/27/21 09:00 72 16 112/46 L 100 06/27/21 08:40 72 16 101/44 L 99 06/27/21 08:20 76 16 93/54 L 99 06/27/21 08:00 36.6 C 72 16 87/48 L 99 Weight: Weight 06/25/21 06/26/21 06/27/21 23:59 23:59 23:59 Weight (kg) 82 kg 83 kg Intake & Output: Intake and Output Totals x24h 06/25/21 06/26/21 06/27/21 23:59 23:59 23:59 Intake Total 0946.067 3201.846 Output Total 165 745 Balance 1290.491 2888.846 - Lab Results Lab Results: 06/27/21 04:20 06/27/21 04:20 Other Lab Results: Lab Results x24hrs 06/27/21 06/27/21 06/27/21 Range/Units 11:06 08:08 07:30 WBC (4.8-10.8) x10^3/uL RBC (4.20-5.40) 10^6/uL Hgb (12.0-16.0) g/dL Hct (37.0-47.0) % MCV (81.0-99.0) fL MCH (27.0-31.0) pg MCHC (32.0-36.0) g/dL RDW (12.0-15.0) % Plt Count (130-450) 10^3/uL MPV (7.9-10.8) fL Neut # (Auto) Lymph # (Auto) [place] # (Auto) Eos # (Auto) Baso # (Auto) Absolute Nucleated RBC Total Counted Band Neuts % (Manual) (0 - 10) % Abnorm Lymph % (Manual) % Nucleated RBC % Neutrophils # (Manual) (1.5-6.6) 10^3/uL Lymphocytes # (Manual) (1.5-3.5) 10^3/uL Monocytes # (Manual) (0.0-1.0) 10^3/uL Eosinophils # (Manual) (0-0.7) 10^3/uL Basophils # (Manual) (0-0.1) 10^3/uL Differential Comment Platelet Estimate (NORMAL) RBC Morph Micro Appear (NORMAL) Bld Gas Analysis Time Sample Site ABG pH (7.35-7.45) ABG pCO2 (34-45) mmHg ABG pO2 (80-100) mmHg ABG HCO3 (22.0-26.0) mmol/L ABG Total CO2 (21.0-29.0) MMOL/L ABG O2 Saturation (94-98) % ABG Base Excess (-2.0-3.0) mmol/L Ruperto Test Respiration Rate b/min O2 Delivery Device Vent Mode FiO2 Tidal Volume mL PEEP cmH2O Pressure Support Vent cmH2O IPAP Sodium (135-145) mmol/L Potassium (3.5-5.0) mmol/L Chloride (101-111) mmol/L Carbon Dioxide (21-32) mmol/L Anion Gap (6-13) BUN (6-20) mg/dL Creatinine (0.4-1.0) mg/dL Estimated GFR (MDRD) (>89) Glucose (70-100) mg/dL Lactic Acid 4.1 H* 3.7 H* (0.5-2.2) mmol/L Calcium (8.5-10.3) mg/dL Total Bilirubin (0.2-1.0) mg/dL AST (10-42) IU/L ALT (10-60) IU/L Alkaline Phosphatase (42-121) IU/L Troponin I High Sens 99.6 H* (2.3-14.8) ng/L Total Protein (6.7-8.2) g/dL Albumin (3.2-5.5) g/dL Globulin (2.1-4.2) g/dL Albumin/Globulin Ratio (1.0-2.2) Urine Color Urine Clarity (CLEAR) Urine pH (5.0-7.5) PH Ur Specific [place] (1.002-1.030) Urine Protein (NEGATIVE) mg/dL Urine Glucose (UA) (NEGATIVE) mg/dL Urine Ketones (NEGATIVE) mg/dL Urine Occult Blood (NEGATIVE) Urine Nitrite (NEGATIVE) Urine Bilirubin (NEGATIVE) Urine Urobilinogen (NORMAL) E.U./dL Ur Leukocyte Esterase (NEGATIVE) Urine RBC (0-5) /HPF Urine WBC (0-5) /HPF Ur Squamous Epith Cells (<= Few) Urine Bacteria (None Seen) /HPF Urine Casts /LPF Ur Microscopic Review Urine Culture Comments Nasal Adenovirus (PCR) Nasal B. parapertussis DNA (PCR) Nasal Coronavir 229E PCR Nasal Coronavir HKU1 PCR Nasal Coronavir NL63 PCR Nasal Coronavir OC43 PCR Nasal Enterovir/Rhinovir PCR Nasal Influenza B PCR Nasal Influenza A PCR Nasal Parainfluen 1 PCR Nasal Parainfluen 2 PCR Nasal Parainfluen 3 PCR Nasal Parainfluen 4 PCR Nasal RSV (PCR) Nasal Screen MRSA (PCR) (NEGATIVE) Nasal B.pertussis DNA PCR Nasal C.pneumoniae (PCR) Mk Human Metapneumo PCR Nasal M.pneumoniae (PCR) Nasal SARS-CoV-2 (PCR) 06/27/21 06/27/21 06/27/21 Range/Units 05:43 04:20 04:20 WBC 12.5 H (4.8-10.8) x10^3/uL RBC 3.99 L (4.20-5.40) 10^6/uL Hgb 11.7 L (12.0-16.0) g/dL Hct 36.6 L (37.0-47.0) % MCV 91.7 (81.0-99.0) fL MCH 29.3 (27.0-31.0) pg MCHC 32.0 (32.0-36.0) g/dL RDW 21.7 H (12.0-15.0) % Plt Count 231 (130-450) 10^3/uL MPV 11.0 H (7.9-10.8) fL Neut # (Auto) Not Reportable Lymph # (Auto) Not Reportable [place] # (Auto) Not Reportable Eos # (Auto) Not Reportable Baso # (Auto) Not Reportable Absolute Nucleated RBC Not Reportable Total Counted 100 Band Neuts % (Manual) 26 H (0 - 10) % Abnorm Lymph % (Manual) 0 % Nucleated RBC % Not Reportable Neutrophils # (Manual) 11.3 H (1.5-6.6) 10^3/uL Lymphocytes # (Manual) 1.1 L (1.5-3.5) 10^3/uL Monocytes # (Manual) 0.1 (0.0-1.0) 10^3/uL Eosinophils # (Manual) 0.0 (0-0.7) 10^3/uL Basophils # (Manual) 0.0 (0-0.1) 10^3/uL Differential Comment MANUAL DIFFERENTIAL Platelet Estimate NORMAL (130-450,000) (NORMAL) RBC Morph Micro Appear 1+ OVALOCYTES (NORMAL) Bld Gas Analysis Time 0554 Sample Site RIGHT RADIAL ABG pH 7.43 (7.35-7.45) ABG pCO2 37 (34-45) mmHg ABG pO2 124 H (80-100) mmHg ABG HCO3 23.9 (22.0-26.0) mmol/L ABG Total CO2 25.0 (21.0-29.0) MMOL/L ABG O2 Saturation 99 H (94-98) % ABG Base Excess 0.0 (-2.0-3.0) mmol/L Ruperto Test POSITIVE Respiration Rate 16 b/min O2 Delivery Device VENTILATOR Vent Mode SIMV FiO2 40.00 Tidal Volume 450 mL PEEP 5 cmH2O Pressure Support Vent 10 cmH2O IPAP Not Reportable Sodium 138 (135-145) mmol/L Potassium 4.7 (3.5-5.0) mmol/L Chloride 102 (101-111) mmol/L Carbon Dioxide 24 (21-32) mmol/L Anion Gap 12.0 (6-13) BUN 32 H (6-20) mg/dL Creatinine 1.3 H (0.4-1.0) mg/dL Estimated GFR (MDRD) 40 L (>89) Glucose 186 H (70-100) mg/dL Lactic Acid (0.5-2.2) mmol/L Calcium 8.1 L (8.5-10.3) mg/dL Total Bilirubin 0.8 (0.2-1.0) mg/dL AST 24 (10-42) IU/L ALT 19 (10-60) IU/L Alkaline Phosphatase 101 (42-121) IU/L Troponin I High Sens (2.3-14.8) ng/L Total Protein 5.6 L (6.7-8.2) g/dL Albumin 2.5 L (3.2-5.5) g/dL Globulin 3.1 (2.1-4.2) g/dL Albumin/Globulin Ratio 0.8 L (1.0-2.2) Urine Color Urine Clarity (CLEAR) Urine pH (5.0-7.5) PH Ur Specific [place] (1.002-1.030) Urine Protein (NEGATIVE) mg/dL Urine Glucose (UA) (NEGATIVE) mg/dL Urine Ketones (NEGATIVE) mg/dL Urine Occult Blood (NEGATIVE) Urine Nitrite (NEGATIVE) Urine Bilirubin (NEGATIVE) Urine Urobilinogen (NORMAL) E.U./dL Ur Leukocyte Esterase (NEGATIVE) Urine RBC (0-5) /HPF Urine WBC (0-5) /HPF Ur Squamous Epith Cells (<= Few) Urine Bacteria (None Seen) /HPF Urine Casts /LPF Ur Microscopic Review Urine Culture Comments Nasal Adenovirus (PCR) Nasal B. parapertussis DNA (PCR) Nasal Coronavir 229E PCR Nasal Coronavir HKU1 PCR Nasal Coronavir NL63 PCR Nasal Coronavir OC43 PCR Nasal Enterovir/Rhinovir PCR Nasal Influenza B PCR Nasal Influenza A PCR Nasal Parainfluen 1 PCR Nasal Parainfluen 2 PCR Nasal Parainfluen 3 PCR Nasal Parainfluen 4 PCR Nasal RSV (PCR) Nasal Screen MRSA (PCR) (NEGATIVE) Nasal B.pertussis DNA PCR Nasal C.pneumoniae (PCR) Mk Human Metapneumo PCR Nasal M.pneumoniae (PCR) Nasal SARS-CoV-2 (PCR) 06/27/21 06/27/21 06/26/21 Range/Units 01:43 01:23 23:58 WBC (4.8-10.8) x10^3/uL RBC (4.20-5.40) 10^6/uL Hgb (12.0-16.0) g/dL Hct (37.0-47.0) % MCV (81.0-99.0) fL MCH (27.0-31.0) pg MCHC (32.0-36.0) g/dL RDW (12.0-15.0) % Plt Count (130-450) 10^3/uL MPV (7.9-10.8) fL Neut # (Auto) Lymph # (Auto) [place] # (Auto) Eos # (Auto) Baso # (Auto) Absolute Nucleated RBC Total Counted Band Neuts % (Manual) (0 - 10) % Abnorm Lymph % (Manual) % Nucleated RBC % Neutrophils # (Manual) (1.5-6.6) 10^3/uL Lymphocytes # (Manual) (1.5-3.5) 10^3/uL Monocytes # (Manual) (0.0-1.0) 10^3/uL Eosinophils # (Manual) (0-0.7) 10^3/uL Basophils # (Manual) (0-0.1) 10^3/uL Differential Comment Platelet Estimate (NORMAL) RBC Morph Micro Appear (NORMAL) Bld Gas Analysis Time 0006 Sample Site RIGHT RADIAL ABG pH 7.48 H (7.35-7.45) ABG pCO2 27 L (34-45) mmHg ABG pO2 203 H* (80-100) mmHg ABG HCO3 19.6 L (22.0-26.0) mmol/L ABG Total CO2 20.4 L (21.0-29.0) MMOL/L ABG O2 Saturation 99 H (94-98) % ABG Base Excess -2.6 L (-2.0-3.0) mmol/L Ruperto Test POSITIVE Respiration Rate 18 b/min O2 Delivery Device VENTILATOR Vent Mode SIMV FiO2 60.00 Tidal Volume 470 mL PEEP 5 cmH2O Pressure Support Vent 10 cmH2O IPAP Sodium (135-145) mmol/L Potassium (3.5-5.0) mmol/L Chloride (101-111) mmol/L Carbon Dioxide (21-32) mmol/L Anion Gap (6-13) BUN (6-20) mg/dL Creatinine (0.4-1.0) mg/dL Estimated GFR (MDRD) (>89) Glucose (70-100) mg/dL Lactic Acid (0.5-2.2) mmol/L Calcium (8.5-10.3) mg/dL Total Bilirubin (0.2-1.0) mg/dL AST (10-42) IU/L ALT (10-60) IU/L Alkaline Phosphatase (42-121) IU/L Troponin I High Sens 95.9 H* (2.3-14.8) ng/L Total Protein (6.7-8.2) g/dL Albumin (3.2-5.5) g/dL Globulin (2.1-4.2) g/dL Albumin/Globulin Ratio (1.0-2.2) Urine Color Urine Clarity (CLEAR) Urine pH (5.0-7.5) PH Ur Specific [place] (1.002-1.030) Urine Protein (NEGATIVE) mg/dL Urine Glucose (UA) (NEGATIVE) mg/dL Urine Ketones (NEGATIVE) mg/dL Urine Occult Blood (NEGATIVE) Urine Nitrite (NEGATIVE) Urine Bilirubin (NEGATIVE) Urine Urobilinogen (NORMAL) E.U./dL Ur Leukocyte Esterase (NEGATIVE) Urine RBC (0-5) /HPF Urine WBC (0-5) /HPF Ur Squamous Epith Cells (<= Few) Urine Bacteria (None Seen) /HPF Urine Casts /LPF Ur Microscopic Review Urine Culture Comments Nasal Adenovirus (PCR) NOT DETECTED Nasal B. parapertussis DNA (PCR) NOT DETECTED Nasal Coronavir 229E PCR NOT DETECTED Nasal Coronavir HKU1 PCR NOT DETECTED Nasal Coronavir NL63 PCR NOT DETECTED Nasal Coronavir OC43 PCR NOT DETECTED Nasal Enterovir/Rhinovir PCR NOT DETECTED Nasal Influenza B PCR NOT DETECTED Nasal Influenza A PCR NOT DETECTED Nasal Parainfluen 1 PCR NOT DETECTED Nasal Parainfluen 2 PCR NOT DETECTED Nasal Parainfluen 3 PCR NOT DETECTED Nasal Parainfluen 4 PCR NOT DETECTED Nasal RSV (PCR) NOT DETECTED Nasal Screen MRSA (PCR) (NEGATIVE) Nasal B.pertussis DNA PCR NOT DETECTED Nasal C.pneumoniae (PCR) NOT DETECTED Mk Human Metapneumo PCR NOT DETECTED Nasal M.pneumoniae (PCR) NOT DETECTED Nasal SARS-CoV-2 (PCR) DETECTED A 06/26/21 06/26/21 06/26/21 Range/Units 22:51 21:55 17:15 WBC (4.8-10.8) x10^3/uL RBC (4.20-5.40) 10^6/uL Hgb (12.0-16.0) g/dL Hct (37.0-47.0) % MCV (81.0-99.0) fL MCH (27.0-31.0) pg MCHC (32.0-36.0) g/dL RDW (12.0-15.0) % Plt Count (130-450) 10^3/uL MPV (7.9-10.8) fL Neut # (Auto) Lymph # (Auto) [place] # (Auto) Eos # (Auto) Baso # (Auto) Absolute Nucleated RBC Total Counted Band Neuts % (Manual) (0 - 10) % Abnorm Lymph % (Manual) % Nucleated RBC % Neutrophils # (Manual) (1.5-6.6) 10^3/uL Lymphocytes # (Manual) (1.5-3.5) 10^3/uL Monocytes # (Manual) (0.0-1.0) 10^3/uL Eosinophils # (Manual) (0-0.7) 10^3/uL Basophils # (Manual) (0-0.1) 10^3/uL Differential Comment Platelet Estimate (NORMAL) RBC Morph Micro Appear (NORMAL) Bld Gas Analysis Time Sample Site ABG pH (7.35-7.45) ABG pCO2 (34-45) mmHg ABG pO2 (80-100) mmHg ABG HCO3 (22.0-26.0) mmol/L ABG Total CO2 (21.0-29.0) MMOL/L ABG O2 Saturation (94-98) % ABG Base Excess (-2.0-3.0) mmol/L Ruperto Test Respiration Rate b/min O2 Delivery Device Vent Mode FiO2 Tidal Volume mL PEEP cmH2O Pressure Support Vent cmH2O IPAP Sodium (135-145) mmol/L Potassium (3.5-5.0) mmol/L Chloride (101-111) mmol/L Carbon Dioxide (21-32) mmol/L Anion Gap (6-13) BUN (6-20) mg/dL Creatinine (0.4-1.0) mg/dL Estimated GFR (MDRD) (>89) Glucose (70-100) mg/dL Lactic Acid 2.3 H (0.5-2.2) mmol/L Calcium (8.5-10.3) mg/dL Total Bilirubin (0.2-1.0) mg/dL AST (10-42) IU/L ALT (10-60) IU/L Alkaline Phosphatase (42-121) IU/L Troponin I High Sens (2.3-14.8) ng/L Total Protein (6.7-8.2) g/dL Albumin (3.2-5.5) g/dL Globulin (2.1-4.2) g/dL Albumin/Globulin Ratio (1.0-2.2) Urine Color YELLOW Urine Clarity CLEAR (CLEAR) Urine pH 5.0 (5.0-7.5) PH Ur Specific [place] 1.015 (1.002-1.030) Urine Protein NEGATIVE (NEGATIVE) mg/dL Urine Glucose (UA) NEGATIVE (NEGATIVE) mg/dL Urine Ketones NEGATIVE (NEGATIVE) mg/dL Urine Occult Blood NEGATIVE (NEGATIVE) Urine Nitrite NEGATIVE (NEGATIVE) Urine Bilirubin NEGATIVE (NEGATIVE) Urine Urobilinogen 0.2 (NORMAL) (NORMAL) E.U./dL Ur Leukocyte Esterase TRACE H (NEGATIVE) Urine RBC 0-5 (0-5) /HPF Urine WBC 4-5 (0-5) /HPF Ur Squamous Epith Cells FEW Squamous (<= Few) Urine Bacteria Few (None Seen) /HPF Urine Casts 3-5 Hyaline Casts /LPF Ur Microscopic Review INDICATED Urine Culture Comments INDICATED Nasal Adenovirus (PCR) Nasal B. parapertussis DNA (PCR) Nasal Coronavir 229E PCR Nasal Coronavir HKU1 PCR Nasal Coronavir NL63 PCR Nasal Coronavir OC43 PCR Nasal Enterovir/Rhinovir PCR Nasal Influenza B PCR Nasal Influenza A PCR Nasal Parainfluen 1 PCR Nasal Parainfluen 2 PCR Nasal Parainfluen 3 PCR Nasal Parainfluen 4 PCR Nasal RSV (PCR) Nasal Screen MRSA (PCR) NEGATIVE (NEGATIVE) Nasal B.pertussis DNA PCR Nasal C.pneumoniae (PCR) Mk Human Metapneumo PCR Nasal M.pneumoniae (PCR) Nasal SARS-CoV-2 (PCR) - Current Medications Current Medications: Current Medications Generic Name Dose Route Start Last Admin Trade Name Freq PRN Reason Stop Dose Admin Hydromorphone HCl 1 mg 06/27/21 10:08 06/27/21 13:52 Hydromorphone 1 Mg/Ml Carpuject IVP 1 mg Q2H PRN Administration PAIN Dextrose/Sodium Chloride 1,000 mls @ 100 mls/hr 06/26/21 21:00 06/27/21 13:00 D5ns IV 100 mls/hr .Q10H JULIETA Infusion Metronidazole 500 mg in 100 mls @ 100 mls/hr 06/26/21 22:00 06/27/21 13:52 Flagyl 500 Mg/100 Ml IV 100 mls/hr Q8HR JULIETA Administration Acetaminophen 100 mls @ 400 mls/hr 06/26/21 21:00 06/27/21 09:56 Ofirmev IV Infused Q6H JULIETA Infusion Cefepime HCl 1 gm/ Sodium 100 mls @ 200 mls/hr 06/27/21 06:00 06/27/21 06:55 Chloride IV Infused Q12H JULIETA Infusion Fluconazole 100 mls @ 100 mls/hr 06/27/21 09:00 06/27/21 10:45 Diflucan 200 Mg/100 Ml IV Infused DAILY JULIETA Infusion Norepinephrine Bitartrate 8 mg 250 mls @ 15 mls/hr 06/26/21 23:00 06/27/21 13:00 / Dextrose IV 16 mcg/min .[id number] JULIETA 30 mls/hr Titration Protocol 8 MCG/MIN Dexmedetomidine/Sodium Chloride 100 mls @ 4.1 mls/hr 06/26/21 23:00 06/27/21 13:00 Precedex Premix IV 06/27/21 17:59 0.4 mcg/kg/hr .[id number] JULIETA 8.2 mls/hr Titration Protocol 0.2 MCG/KG/HR Lorazepam 0.5 mg 06/26/21 20:54 06/26/21 21:48 Lorazepam 2 Mg/Ml Vial IVP 0.5 mg Q1H PRN Administration Anxiety Pantoprazole Sodium 40 mg 06/27/21 07:00 06/27/21 06:15 Pantoprazole 40 Mg Vial IVP 40 mg QDAC JULIETA Administration Sodium Chloride 10 ml 06/27/21 01:00 06/27/21 09:40 Sodium Chloride Flush 0.9% 10 Ml Syringe IVP 10 ml 0100,[id number],1700 JULIETA Administration Sodium Chloride 10 ml 06/26/21 20:54 06/27/21 06:16 Sodium Chloride Flush 0.9% 10 Ml Syringe IVP 10 ml PRN PRN Administration NEEDED PER PROVIDER ORDERS Sodium Chloride 20 ml 06/26/21 23:03 06/27/21 04:16 Sodium Chloride Flush 0.9% 10 Ml Syringe IVP 20 ml PRN PRN Administration After Blood Draw - Physical Exam Comments/Other: Abdomen is distended and quiet. ERICK drainage is serous and nonpurulent. NG tube output is green gastric ABX Reporting Has patient been on IV antibiotics over the past 48 hours?: Yes Impression/Plan - Problem List Problem List: Postop day one status post intra-abdominal catastrophe. Appreciate the hospitalist service so very much. Continue n.p.o. with NG tube decompression.Other management per the hospitalist team.TPN to start tonight.
--- NOTE | 2021-06-27 16:19 | PROVIDER PROGRESS NOTE ---
Subjective - Prog Note Date Prog Note Date: 06/27/21 - Subjective Subjective: She remains intubated and sedated with Precedex. She is unable to provide a history. Current Medications - Current Medications Current Medications: Active Medications Benzocaine/Butamben/Tetracaine HCl (Benzocaine/Tetracaine/Butamben 20 Gm) 1 sprays MM DAILY PRN PRN Reason: Throat Pain Enoxaparin Sodium (Enoxaparin 40 Mg/0.4 Ml Syringe) 40 mg SUBQ DAILY JULIETA Hydromorphone HCl (Hydromorphone 1 Mg/Ml Carpuject) 1 mg IVP Q2H PRN PRN Reason: PAIN Last Admin: 06/27/21 13:52 Dose: 1 mg Documented by: Dextrose/Sodium Chloride (D5ns) 1,000 mls @ 100 mls/hr IV .Q10H JULIETA Last Infusion: 06/27/21 13:00 Dose: 100 mls/hr Documented by: Metronidazole (Flagyl 500 Mg/100 Ml) 500 mg in 100 mls @ 100 mls/hr IV Q8HR JULIETA Last Infusion: 06/27/21 15:00 Dose: Infused Documented by: Acetaminophen (Ofirmev) 100 mls @ 400 mls/hr IV Q6H JULIETA Last Admin: 06/27/21 15:29 Dose: 400 mls/hr Documented by: Cefepime HCl 1 gm/ Sodium (Chloride) 100 mls @ 200 mls/hr IV Q12H JULIETA Last Infusion: 06/27/21 06:55 Dose: Infused Documented by: Fluconazole (Diflucan 200 Mg/100 Ml) 100 mls @ 100 mls/hr IV DAILY JULIETA Last Infusion: 06/27/21 10:45 Dose: Infused Documented by: Norepinephrine Bitartrate 8 mg (/ Dextrose) 250 mls @ 15 mls/hr IV .[id number] JULIETA; Protocol Last Titration: 06/27/21 13:00 Dose: 16 mcg/min, 30 mls/hr Documented by: Dexmedetomidine/Sodium Chloride (Precedex Premix) 100 mls @ 4.1 mls/hr IV .[id number] JULIETA; Protocol Stop: 06/27/21 17:59 Last Titration: 06/27/21 13:00 Dose: 0.4 mcg/kg/hr, 8.2 mls/hr Documented by: Sodium Chloride (Normal Saline 0.9%) 500 mls @ 20 mls/hr IV Q24H PRN PRN Reason: TKO RATE Dexmedetomidine HCl 400 mcg/ (Sodium Chloride) 100 mls @ 8.3 mls/hr IV .Q12H3M [facility]; Protocol Multivitamins 10 ml/ TRACE ELEMENTS 1 ml/ Amino Ac/Electrol/Dextrose/Calcium 2,011 mls @ 75 mls/hr IV Q24H [facility]; Protocol Fat Emulsion Intravenous (Intralipid 20%) 250 mls @ 21 mls/hr IV Q24H [facility] Levothyroxine Sodium (Levothyroxine 100 Mcg Vial) 130 mcg IVP MoTh@0700 [facility] Lorazepam (Lorazepam 2 Mg/Ml Vial) 0.5 mg IVP Q1H PRN PRN Reason: Anxiety Last Admin: 06/26/21 21:48 Dose: 0.5 mg Documented by: Ondansetron HCl (Ondansetron 4 Mg/2 Ml Vial) 4 mg IVP Q6H PRN PRN Reason: Nausea / Vomiting Pantoprazole Sodium (Pantoprazole 40 Mg Vial) 40 mg IVP QDAC [facility] Last Admin: 06/27/21 06:15 Dose: 40 mg Documented by: Sodium Chloride (Sodium Chloride Flush 0.9% 10 Ml Syringe) 10 ml IVP 0100,0900,1700 [facility] Last Admin: 06/27/21 09:40 Dose: 10 ml Documented by: Sodium Chloride (Sodium Chloride Flush 0.9% 10 Ml Syringe) 10 ml IVP PRN PRN PRN Reason: NEEDED PER PROVIDER ORDERS Last Admin: 06/27/21 06:16 Dose: 10 ml Documented by: Sodium Chloride (Sodium Chloride Flush 0.9% 10 Ml Syringe) 20 ml IVP PRN PRN PRN Reason: After Blood Draw Last Admin: 06/27/21 04:16 Dose: 20 ml Documented by: Levothyroxine [Synthroid] 75 mcg PO QDAC 07/22/19 Simvastatin [Zocor] 20 mg PO QPM 07/22/19 Torsemide 40 mg PO DAILY 07/22/19 Potassium Chloride 10 meq PO DAILY 01/11/20 Acetaminophen 1,000 mg PO TID 02/18/20 Ascorbic Acid 500 mg PO DAILY 02/18/20 Docusate Sodium 250Mg Capsule [Colace 250Mg Capsule] 250 mg PO DAILY 02/18/20 Diclofenac Sodium [Voltaren] 2 - 4 gm TOP BID PRN 04/12/20 EPINEPHrine [Epipen Jr] 0.3 mg IM ONCE PRN 04/12/20 Fluticasone [Flonase] 1 spray BÁRBARA BID 04/12/20 Hydrocortisone Acet/Aloe Vera [Nucort Lotion] 1 applic TOP BID PRN 04/12/20 Ketoconazole [Nizoral] 1 applic TOP .TIW PRN 04/12/20 Olopatadine HCl [Pataday] 1 drops EACHEYE DAILY PRN 04/12/20 traZODone [Desyrel] 200 mg PO QPM 04/12/20 Guaifenesin/Dextromethorphan [Robafen Dm Peak Cold Liquid] 5 - 10 ml PO Q4H PRN 10/21/20 Meloxicam [Mobic] 7.5 mg PO BID 10/21/20 QUEtiapine [SEROquel] 100 mg PO BID 10/21/20 Objective - Vital Signs/Intake & Output Reviewed Vital Signs: Yes Vital Signs: Vital Signs Temp Pulse Pulse Resp BP Pulse Ox 06/27/21 16:00 37.2 C 74 16 99/57 L 100 06/27/21 15:53 74 06/27/21 15:00 72 16 108/59 L 99 06/27/21 14:45 71 16 106/62 100 06/27/21 14:30 72 16 105/58 L 100 06/27/21 14:15 72 16 104/59 L 100 06/27/21 14:00 75 16 102/60 100 06/27/21 13:45 72 16 99/56 L 100 06/27/21 13:30 72 16 98/77 99 06/27/21 13:17 71 06/27/21 13:15 72 16 105/52 L 100 06/27/21 13:00 75 16 98/49 L 100 06/27/21 12:45 72 16 100/49 L 100 06/27/21 12:30 72 16 106/60 99 Intake & Output: Intake & Output 06/24/21 06/25/21 06/26/21 06/27/21 23:59 23:59 23:59 23:59 Intake Total 9177.986 3076.846 Output Total 165 770 Balance 5303.344 4442.846 - Objective General Appearance: positive: No acute distress, Other (Sedated.) ENT: positive: ENT inspection nml, Other (ET tube in place.) Neck: positive: Nml inspection Respiratory: positive: No respiratory distress, Rhonchi, Other (Diminished in bases.) Cardiovascular: positive: Regular rate & rhythm. negative: Tachycardia, Systolic murmur Abdomen: positive: Abnml bowel sounds (Hypoactive.), Other (Dressing in place. Abdomen soft. ERICK drain with serosanguinous drainage.) Skin: positive: Warm, Dry Extremities: positive: Pedal edema (+3 pitting edema in the bilateral lower extremities) Neurologic/Psychiatric: positive: Other (Sedated.) - Lab Results Fish Bones: 06/27/21 04:20 06/27/21 04:20 Other Labs: Lab Results x24hrs 06/27/21 06/27/21 06/27/21 Range/Units 15:19 11:06 08:08 WBC (4.8-10.8) x10^3/uL RBC (4.20-5.40) 10^6/uL Hgb (12.0-16.0) g/dL Hct (37.0-47.0) % MCV (81.0-99.0) fL MCH (27.0-31.0) pg MCHC (32.0-36.0) g/dL RDW (12.0-15.0) % Plt Count (130-450) 10^3/uL MPV (7.9-10.8) fL Neut # (Auto) Lymph # (Auto) [place] # (Auto) Eos # (Auto) Baso # (Auto) Absolute Nucleated RBC Total Counted Band Neuts % (Manual) (0 - 10) % Abnorm Lymph % (Manual) % Nucleated RBC % Neutrophils # (Manual) (1.5-6.6) 10^3/uL Lymphocytes # (Manual) (1.5-3.5) 10^3/uL Monocytes # (Manual) (0.0-1.0) 10^3/uL Eosinophils # (Manual) (0-0.7) 10^3/uL Basophils # (Manual) (0-0.1) 10^3/uL Differential Comment Platelet Estimate (NORMAL) RBC Morph Micro Appear (NORMAL) Bld Gas Analysis Time Sample Site ABG pH (7.35-7.45) ABG pCO2 (34-45) mmHg ABG pO2 (80-100) mmHg ABG HCO3 (22.0-26.0) mmol/L ABG Total CO2 (21.0-29.0) MMOL/L ABG O2 Saturation (94-98) % ABG Base Excess (-2.0-3.0) mmol/L Ruperto Test Respiration Rate b/min O2 Delivery Device Vent Mode FiO2 Tidal Volume mL PEEP cmH2O Pressure Support Vent cmH2O IPAP Sodium (135-145) mmol/L Potassium (3.5-5.0) mmol/L Chloride (101-111) mmol/L Carbon Dioxide (21-32) mmol/L Anion Gap (6-13) BUN (6-20) mg/dL Creatinine (0.4-1.0) mg/dL Estimated GFR (MDRD) (>89) Glucose (70-100) mg/dL Lactic Acid 2.9 H 4.1 H* (0.5-2.2) mmol/L Calcium (8.5-10.3) mg/dL Total Bilirubin (0.2-1.0) mg/dL AST (10-42) IU/L ALT (10-60) IU/L Alkaline Phosphatase (42-121) IU/L Troponin I High Sens 99.6 H* (2.3-14.8) ng/L Total Protein (6.7-8.2) g/dL Albumin (3.2-5.5) g/dL Globulin (2.1-4.2) g/dL Albumin/Globulin Ratio (1.0-2.2) Urine Color Urine Clarity (CLEAR) Urine pH (5.0-7.5) PH Ur Specific [place] (1.002-1.030) Urine Protein (NEGATIVE) mg/dL Urine Glucose (UA) (NEGATIVE) mg/dL Urine Ketones (NEGATIVE) mg/dL Urine Occult Blood (NEGATIVE) Urine Nitrite (NEGATIVE) Urine Bilirubin (NEGATIVE) Urine Urobilinogen (NORMAL) E.U./dL Ur Leukocyte Esterase (NEGATIVE) Urine RBC (0-5) /HPF Urine WBC (0-5) /HPF Ur Squamous Epith Cells (<= Few) Urine Bacteria (None Seen) /HPF Urine Casts /LPF Ur Microscopic Review Urine Culture Comments Nasal Adenovirus (PCR) Nasal B. parapertussis DNA (PCR) Nasal Coronavir 229E PCR Nasal Coronavir HKU1 PCR Nasal Coronavir NL63 PCR Nasal Coronavir OC43 PCR Nasal Enterovir/Rhinovir PCR Nasal Influenza B PCR Nasal Influenza A PCR Nasal Parainfluen 1 PCR Nasal Parainfluen 2 PCR Nasal Parainfluen 3 PCR Nasal Parainfluen 4 PCR Nasal RSV (PCR) Nasal Screen MRSA (PCR) (NEGATIVE) Nasal B.pertussis DNA PCR Nasal C.pneumoniae (PCR) [place] Human Metapneumo PCR Nasal M.pneumoniae (PCR) Nasal SARS-CoV-2 (PCR) 06/27/21 06/27/21 06/27/21 Range/Units 07:30 05:43 04:20 WBC (4.8-10.8) x10^3/uL RBC (4.20-5.40) 10^6/uL Hgb (12.0-16.0) g/dL Hct (37.0-47.0) % MCV (81.0-99.0) fL MCH (27.0-31.0) pg MCHC (32.0-36.0) g/dL RDW (12.0-15.0) % Plt Count (130-450) 10^3/uL MPV (7.9-10.8) fL Neut # (Auto) Lymph # (Auto) [place] # (Auto) Eos # (Auto) Baso # (Auto) Absolute Nucleated RBC Total Counted Band Neuts % (Manual) (0 - 10) % Abnorm Lymph % (Manual) % Nucleated RBC % Neutrophils # (Manual) (1.5-6.6) 10^3/uL Lymphocytes # (Manual) (1.5-3.5) 10^3/uL Monocytes # (Manual) (0.0-1.0) 10^3/uL Eosinophils # (Manual) (0-0.7) 10^3/uL Basophils # (Manual) (0-0.1) 10^3/uL Differential Comment Platelet Estimate (NORMAL) RBC Morph Micro Appear (NORMAL) Bld Gas Analysis Time 0554 Sample Site RIGHT RADIAL ABG pH 7.43 (7.35-7.45) ABG pCO2 37 (34-45) mmHg ABG pO2 124 H (80-100) mmHg ABG HCO3 23.9 (22.0-26.0) mmol/L ABG Total CO2 25.0 (21.0-29.0) MMOL/L ABG O2 Saturation 99 H (94-98) % ABG Base Excess 0.0 (-2.0-3.0) mmol/L Ruperto Test POSITIVE Respiration Rate 16 b/min O2 Delivery Device VENTILATOR Vent Mode SIMV FiO2 40.00 Tidal Volume 450 mL PEEP 5 cmH2O Pressure Support Vent 10 cmH2O IPAP Not Reportable Sodium 138 (135-145) mmol/L Potassium 4.7 (3.5-5.0) mmol/L Chloride 102 (101-111) mmol/L Carbon Dioxide 24 (21-32) mmol/L Anion Gap 12.0 (6-13) BUN 32 H (6-20) mg/dL Creatinine 1.3 H (0.4-1.0) mg/dL Estimated GFR (MDRD) 40 L (>89) Glucose 186 H (70-100) mg/dL Lactic Acid 3.7 H* (0.5-2.2) mmol/L Calcium 8.1 L (8.5-10.3) mg/dL Total Bilirubin 0.8 (0.2-1.0) mg/dL AST 24 (10-42) IU/L ALT 19 (10-60) IU/L Alkaline Phosphatase 101 (42-121) IU/L Troponin I High Sens (2.3-14.8) ng/L Total Protein 5.6 L (6.7-8.2) g/dL Albumin 2.5 L (3.2-5.5) g/dL Globulin 3.1 (2.1-4.2) g/dL Albumin/Globulin Ratio 0.8 L (1.0-2.2) Urine Color Urine Clarity (CLEAR) Urine pH (5.0-7.5) PH Ur Specific [place] (1.002-1.030) Urine Protein (NEGATIVE) mg/dL Urine Glucose (UA) (NEGATIVE) mg/dL Urine Ketones (NEGATIVE) mg/dL Urine Occult Blood (NEGATIVE) Urine Nitrite (NEGATIVE) Urine Bilirubin (NEGATIVE) Urine Urobilinogen (NORMAL) E.U./dL Ur Leukocyte Esterase (NEGATIVE) Urine RBC (0-5) /HPF Urine WBC (0-5) /HPF Ur Squamous Epith Cells (<= Few) Urine Bacteria (None Seen) /HPF Urine Casts /LPF Ur Microscopic Review Urine Culture Comments Nasal Adenovirus (PCR) Nasal B. parapertussis DNA (PCR) Nasal Coronavir 229E PCR Nasal Coronavir HKU1 PCR Nasal Coronavir NL63 PCR Nasal Coronavir OC43 PCR Nasal Enterovir/Rhinovir PCR Nasal Influenza B PCR Nasal Influenza A PCR Nasal Parainfluen 1 PCR Nasal Parainfluen 2 PCR Nasal Parainfluen 3 PCR Nasal Parainfluen 4 PCR Nasal RSV (PCR) Nasal Screen MRSA (PCR) (NEGATIVE) Nasal B.pertussis DNA PCR Nasal C.pneumoniae (PCR) [place] Human Metapneumo PCR Nasal M.pneumoniae (PCR) Nasal SARS-CoV-2 (PCR) 06/27/21 06/27/21 06/27/21 Range/Units 04:20 01:43 01:23 WBC 12.5 H (4.8-10.8) x10^3/uL RBC 3.99 L (4.20-5.40) 10^6/uL Hgb 11.7 L (12.0-16.0) g/dL Hct 36.6 L (37.0-47.0) % MCV 91.7 (81.0-99.0) fL MCH 29.3 (27.0-31.0) pg MCHC 32.0 (32.0-36.0) g/dL RDW 21.7 H (12.0-15.0) % Plt Count 231 (130-450) 10^3/uL MPV 11.0 H (7.9-10.8) fL Neut # (Auto) Not Reportable Lymph # (Auto) Not Reportable [place] # (Auto) Not Reportable Eos # (Auto) Not Reportable Baso # (Auto) Not Reportable Absolute Nucleated RBC Not Reportable Total Counted 100 Band Neuts % (Manual) 26 H (0 - 10) % Abnorm Lymph % (Manual) 0 % Nucleated RBC % Not Reportable Neutrophils # (Manual) 11.3 H (1.5-6.6) 10^3/uL Lymphocytes # (Manual) 1.1 L (1.5-3.5) 10^3/uL Monocytes # (Manual) 0.1 (0.0-1.0) 10^3/uL Eosinophils # (Manual) 0.0 (0-0.7) 10^3/uL Basophils # (Manual) 0.0 (0-0.1) 10^3/uL Differential Comment MANUAL DIFFERENTIAL Platelet Estimate NORMAL (130-450,000) (NORMAL) RBC Morph Micro Appear 1+ OVALOCYTES (NORMAL) Bld Gas Analysis Time Sample Site ABG pH (7.35-7.45) ABG pCO2 (34-45) mmHg ABG pO2 (80-100) mmHg ABG HCO3 (22.0-26.0) mmol/L ABG Total CO2 (21.0-29.0) MMOL/L ABG O2 Saturation (94-98) % ABG Base Excess (-2.0-3.0) mmol/L Ruperto Test Respiration Rate b/min O2 Delivery Device Vent Mode FiO2 Tidal Volume mL PEEP cmH2O Pressure Support Vent cmH2O IPAP Sodium (135-145) mmol/L Potassium (3.5-5.0) mmol/L Chloride (101-111) mmol/L Carbon Dioxide (21-32) mmol/L Anion Gap (6-13) BUN (6-20) mg/dL Creatinine (0.4-1.0) mg/dL Estimated GFR (MDRD) (>89) Glucose (70-100) mg/dL Lactic Acid (0.5-2.2) mmol/L Calcium (8.5-10.3) mg/dL Total Bilirubin (0.2-1.0) mg/dL AST (10-42) IU/L ALT (10-60) IU/L Alkaline Phosphatase (42-121) IU/L Troponin I High Sens 95.9 H* (2.3-14.8) ng/L Total Protein (6.7-8.2) g/dL Albumin (3.2-5.5) g/dL Globulin (2.1-4.2) g/dL Albumin/Globulin Ratio (1.0-2.2) Urine Color Urine Clarity (CLEAR) Urine pH (5.0-7.5) PH Ur Specific [place] (1.002-1.030) Urine Protein (NEGATIVE) mg/dL Urine Glucose (UA) (NEGATIVE) mg/dL Urine Ketones (NEGATIVE) mg/dL Urine Occult Blood (NEGATIVE) Urine Nitrite (NEGATIVE) Urine Bilirubin (NEGATIVE) Urine Urobilinogen (NORMAL) E.U./dL Ur Leukocyte Esterase (NEGATIVE) Urine RBC (0-5) /HPF Urine WBC (0-5) /HPF Ur Squamous Epith Cells (<= Few) Urine Bacteria (None Seen) /HPF Urine Casts /LPF Ur Microscopic Review Urine Culture Comments Nasal Adenovirus (PCR) NOT DETECTED Nasal B. parapertussis DNA (PCR) NOT DETECTED Nasal Coronavir 229E PCR NOT DETECTED Nasal Coronavir HKU1 PCR NOT DETECTED Nasal Coronavir NL63 PCR NOT DETECTED Nasal Coronavir OC43 PCR NOT DETECTED Nasal Enterovir/Rhinovir PCR NOT DETECTED Nasal Influenza B PCR NOT DETECTED Nasal Influenza A PCR NOT DETECTED Nasal Parainfluen 1 PCR NOT DETECTED Nasal Parainfluen 2 PCR NOT DETECTED Nasal Parainfluen 3 PCR NOT DETECTED Nasal Parainfluen 4 PCR NOT DETECTED Nasal RSV (PCR) NOT DETECTED Nasal Screen MRSA (PCR) (NEGATIVE) Nasal B.pertussis DNA PCR NOT DETECTED Nasal C.pneumoniae (PCR) NOT DETECTED [place] Human Metapneumo PCR NOT DETECTED Nasal M.pneumoniae (PCR) NOT DETECTED Nasal SARS-CoV-2 (PCR) DETECTED A 06/26/21 06/26/21 06/26/21 Range/Units 23:58 22:51 21:55 WBC (4.8-10.8) x10^3/uL RBC (4.20-5.40) 10^6/uL Hgb (12.0-16.0) g/dL Hct (37.0-47.0) % MCV (81.0-99.0) fL MCH (27.0-31.0) pg MCHC (32.0-36.0) g/dL RDW (12.0-15.0) % Plt Count (130-450) 10^3/uL MPV (7.9-10.8) fL Neut # (Auto) Lymph # (Auto) [place] # (Auto) Eos # (Auto) Baso # (Auto) Absolute Nucleated RBC Total Counted Band Neuts % (Manual) (0 - 10) % Abnorm Lymph % (Manual) % Nucleated RBC % Neutrophils # (Manual) (1.5-6.6) 10^3/uL Lymphocytes # (Manual) (1.5-3.5) 10^3/uL Monocytes # (Manual) (0.0-1.0) 10^3/uL Eosinophils # (Manual) (0-0.7) 10^3/uL Basophils # (Manual) (0-0.1) 10^3/uL Differential Comment Platelet Estimate (NORMAL) RBC Morph Micro Appear (NORMAL) Bld Gas Analysis Time 0006 Sample Site RIGHT RADIAL ABG pH 7.48 H (7.35-7.45) ABG pCO2 27 L (34-45) mmHg ABG pO2 203 H* (80-100) mmHg ABG HCO3 19.6 L (22.0-26.0) mmol/L ABG Total CO2 20.4 L (21.0-29.0) MMOL/L ABG O2 Saturation 99 H (94-98) % ABG Base Excess -2.6 L (-2.0-3.0) mmol/L Ruperto Test POSITIVE Respiration Rate 18 b/min O2 Delivery Device VENTILATOR Vent Mode SIMV FiO2 60.00 Tidal Volume 470 mL PEEP 5 cmH2O Pressure Support Vent 10 cmH2O IPAP Sodium (135-145) mmol/L Potassium (3.5-5.0) mmol/L Chloride (101-111) mmol/L Carbon Dioxide (21-32) mmol/L Anion Gap (6-13) BUN (6-20) mg/dL Creatinine (0.4-1.0) mg/dL Estimated GFR (MDRD) (>89) Glucose (70-100) mg/dL Lactic Acid (0.5-2.2) mmol/L Calcium (8.5-10.3) mg/dL Total Bilirubin (0.2-1.0) mg/dL AST (10-42) IU/L ALT (10-60) IU/L Alkaline Phosphatase (42-121) IU/L Troponin I High Sens (2.3-14.8) ng/L Total Protein (6.7-8.2) g/dL Albumin (3.2-5.5) g/dL Globulin (2.1-4.2) g/dL Albumin/Globulin Ratio (1.0-2.2) Urine Color YELLOW Urine Clarity CLEAR (CLEAR) Urine pH 5.0 (5.0-7.5) PH Ur Specific [place] 1.015 (1.002-1.030) Urine Protein NEGATIVE (NEGATIVE) mg/dL Urine Glucose (UA) NEGATIVE (NEGATIVE) mg/dL Urine Ketones NEGATIVE (NEGATIVE) mg/dL Urine Occult Blood NEGATIVE (NEGATIVE) Urine Nitrite NEGATIVE (NEGATIVE) Urine Bilirubin NEGATIVE (NEGATIVE) Urine Urobilinogen 0.2 (NORMAL) (NORMAL) E.U./dL Ur Leukocyte Esterase TRACE H (NEGATIVE) Urine RBC 0-5 (0-5) /HPF Urine WBC 4-5 (0-5) /HPF Ur Squamous Epith Cells FEW Squamous (<= Few) Urine Bacteria Few (None Seen) /HPF Urine Casts 3-5 Hyaline Casts /LPF Ur Microscopic Review INDICATED Urine Culture Comments INDICATED Nasal Adenovirus (PCR) Nasal B. parapertussis DNA (PCR) Nasal Coronavir 229E PCR Nasal Coronavir HKU1 PCR Nasal Coronavir NL63 PCR Nasal Coronavir OC43 PCR Nasal Enterovir/Rhinovir PCR Nasal Influenza B PCR Nasal Influenza A PCR Nasal Parainfluen 1 PCR Nasal Parainfluen 2 PCR Nasal Parainfluen 3 PCR Nasal Parainfluen 4 PCR Nasal RSV (PCR) Nasal Screen MRSA (PCR) NEGATIVE (NEGATIVE) Nasal B.pertussis DNA PCR Nasal C.pneumoniae (PCR) [place] Human Metapneumo PCR Nasal M.pneumoniae (PCR) Nasal SARS-CoV-2 (PCR) 06/26/21 Range/Units 17:15 WBC (4.8-10.8) x10^3/uL RBC (4.20-5.40) 10^6/uL Hgb (12.0-16.0) g/dL Hct (37.0-47.0) % MCV (81.0-99.0) fL MCH (27.0-31.0) pg MCHC (32.0-36.0) g/dL RDW (12.0-15.0) % Plt Count (130-450) 10^3/uL MPV (7.9-10.8) fL Neut # (Auto) Lymph # (Auto) [place] # (Auto) Eos # (Auto) Baso # (Auto) Absolute Nucleated RBC Total Counted Band Neuts % (Manual) (0 - 10) % Abnorm Lymph % (Manual) % Nucleated RBC % Neutrophils # (Manual) (1.5-6.6) 10^3/uL Lymphocytes # (Manual) (1.5-3.5) 10^3/uL Monocytes # (Manual) (0.0-1.0) 10^3/uL Eosinophils # (Manual) (0-0.7) 10^3/uL Basophils # (Manual) (0-0.1) 10^3/uL Differential Comment Platelet Estimate (NORMAL) RBC Morph Micro Appear (NORMAL) Bld Gas Analysis Time Sample Site ABG pH (7.35-7.45) ABG pCO2 (34-45) mmHg ABG pO2 (80-100) mmHg ABG HCO3 (22.0-26.0) mmol/L ABG Total CO2 (21.0-29.0) MMOL/L ABG O2 Saturation (94-98) % ABG Base Excess (-2.0-3.0) mmol/L Ruperto Test Respiration Rate b/min O2 Delivery Device Vent Mode FiO2 Tidal Volume mL PEEP cmH2O Pressure Support Vent cmH2O IPAP Sodium (135-145) mmol/L Potassium (3.5-5.0) mmol/L Chloride (101-111) mmol/L Carbon Dioxide (21-32) mmol/L Anion Gap (6-13) BUN (6-20) mg/dL Creatinine (0.4-1.0) mg/dL Estimated GFR (MDRD) (>89) Glucose (70-100) mg/dL Lactic Acid 2.3 H (0.5-2.2) mmol/L Calcium (8.5-10.3) mg/dL Total Bilirubin (0.2-1.0) mg/dL AST (10-42) IU/L ALT (10-60) IU/L Alkaline Phosphatase (42-121) IU/L Troponin I High Sens (2.3-14.8) ng/L Total Protein (6.7-8.2) g/dL Albumin (3.2-5.5) g/dL Globulin (2.1-4.2) g/dL Albumin/Globulin Ratio (1.0-2.2) Urine Color Urine Clarity (CLEAR) Urine pH (5.0-7.5) PH Ur Specific [place] (1.002-1.030) Urine Protein (NEGATIVE) mg/dL Urine Glucose (UA) (NEGATIVE) mg/dL Urine Ketones (NEGATIVE) mg/dL Urine Occult Blood (NEGATIVE) Urine Nitrite (NEGATIVE) Urine Bilirubin (NEGATIVE) Urine Urobilinogen (NORMAL) E.U./dL Ur Leukocyte Esterase (NEGATIVE) Urine RBC (0-5) /HPF Urine WBC (0-5) /HPF Ur Squamous Epith Cells (<= Few) Urine Bacteria (None Seen) /HPF Urine Casts /LPF Ur Microscopic Review Urine Culture Comments Nasal Adenovirus (PCR) Nasal B. parapertussis DNA (PCR) Nasal Coronavir 229E PCR Nasal Coronavir HKU1 PCR Nasal Coronavir NL63 PCR Nasal Coronavir OC43 PCR Nasal Enterovir/Rhinovir PCR Nasal Influenza B PCR Nasal Influenza A PCR Nasal Parainfluen 1 PCR Nasal Parainfluen 2 PCR Nasal Parainfluen 3 PCR Nasal Parainfluen 4 PCR Nasal RSV (PCR) Nasal Screen MRSA (PCR) (NEGATIVE) Nasal B.pertussis DNA PCR Nasal C.pneumoniae (PCR) [place] Human Metapneumo PCR Nasal M.pneumoniae (PCR) Nasal SARS-CoV-2 (PCR) Sepsis Event Note (H) - Evaluation Current Stage of Sepsis: Septic shock Possible source of Sepsis: positive: GI tract/intra-abdominal - Sepsis Criteria Sepsis Criteria: WBC count greater than 10% bands, SBP drop more than 40mHg, MAP less than 65 mmHg, SBP less than 90 mmHg, Renal: urine output less than 0.5ml/kg/hr for 2 hours or creatinine gr, Metabolic: lactate > 2 mmol/L Assessment/Plan - Problem List (1) Septic shock Impression: This is secondary to perforated duodenal ulcer. She is hypotensive requiring norepinephrine and her lactic acid is greater than 4. We have her on cefepime, Flagyl, Diflucan empirically. I have ordered for liter of lactated Ringer's this morning and we will trend her lactic acid. If he remains elevated we will give another liter of IV fluids. Continue maintenance IV fluids. Continue norepinephrine for mean arterial pressure greater than 65 mmHg. Her overall prognosis remains guarded at this time. (2) Perforated duodenal ulcer Impression: Postop day 1 of an ex lap with repair of posterior duodenal ulcer. She had madeleine peritonitis and is on cefepime, Flagyl, Diflucan empirically. We will continue IV antibiotics for the time being. She remains n.p.o. and TPN will be started this evening. NG tube is in place to low intermittent suction. Management as per general surgery. (3) On mechanically assisted ventilation Impression: She remains intubated given her septic shock. She is sedated with Precedex. She has minimal vent setting requirements and she is not hypoxic. We will continue Precedex for sedation and vent management as per protocol. We will keep her intubated until she has improvement in her hemodynamics. (4) Chronic diastolic heart failure Impression: She has chronic systolic heart failure and she has significant lower extremity edema as well as effusions on exam. Fortunately she is not hypoxic. We will hold off on diuresis given her hypotension and lactic acidosis. She likely to be diuresed at some point but for the time being we will continue to hydrate her unless she shows evidence of hypoxia. (5) History of atrial fibrillation Impression: She is a history of sick sinus syndrome and has a pacemaker in place. She is currently in a paced rhythm. We will continue to monitor on telemetry. (6) History of pulmonary embolism Impression: She is a history of pulmonary embolism and she was on anticoagulation. Currently her med rec does not show that she is being anticoagulated. We will keep her on Lovenox for DVT prophylaxis. (7) Hypothyroidism Impression: Given she is n.p.o., we will hold her Synthroid for the time being. If she is n.p.o. for extended period time we will start IV synthroid. Qualifiers: Hypothyroidism type: acquired Qualified Code(s): E03.9 - Hypothyroidism, unspecified (8) Schizophrenia Impression: We are holding her home medications given she is n.p.o. We may need to consider IV antipsychotics if she becomes delirious which she is at risk of. Qualifiers: Schizophrenia type: schizophreniform disorder Qualified Code(s): F20.81 - Schizophreniform disorder
--- NOTE | 2021-06-27 16:21 | OPERATIVE REPORT ---
Operative Report - General Admit Date: 06/26/21 Procedure Date: 06/26/21 Planned Procedure: Exploratory laparotomy with indicated procedures Pre-Op Diagnosis: Perforated viscus Procedure Performed: Exploratory laparotomy with direct repair of posterior duodenal ulcer, Heineke- Mikulicz pyloromyotomy, Gray patch, drain placement, and evacuation of intraperitoneal abscess. Post Op Diagnosis: Perforated posterior duodenal ulcer - Procedure Note Primary Surgeon: Bronson Anesthesia Provider: ABIGAIL Cox Anesthesia Technique: General ET tube Pathology: Peritoneal fluid culture Estimated Blood Loss (mL): 10 Drain/Tube Type: Tanner drain (19 F in the infraduodenal region) Indications: Perforated viscus Findings: 1 cm perforation of the first portion of the duodenum posteriorly. Complications: None apparent - Other Other Information/Narrative: After obtaining informed consent, the patient is brought to the operating room and placed in the supine position on the operating table.Following successful induction of general endotracheal anesthesia, appropriate padding of all bony prominences, and placement of appropriate monitors, the abdomen was prepped and draped in the standard surgical fashion.Per scope protocol. All elements of the surgical safety checklist were followed before, during, and after the procedure. We began the procedure by infiltrating a mixture of local anesthetics in the midline above the umbilicus. An incision was created here and carried down through the skin and subcutaneous tissue to reveal the peritoneum below. The peritoneum was opened directly with Metzenbaum scissors. We immediately encountered grossly purulent and foul-smelling fluid. This was cultured for bot h aerobic and anaerobic organisms. A pool sucker device was placed in the abdominal cavity and approximately 1.5 L of purulent fluid and vegetable matter was aspirated from the abdominal cavity. Exploration of the region of the antrum and duodenum which had been abnormal on CAT scan revealed a posterior perforated duodenal ulcer. Appropriate exposure was obtained to the region. The ulcer was noted to be full-thickness and approximately 1 cm. I elected to repair the ulcer directly in conjunction with an Heineke-Mikulicz's pyloroplasty due to its very close approximation to the pylorus.To this end, the muscle of the duodenum was opened longitudinally through to the region of the mucosa. It was then closed transversely with interrupted 3-0 silk sutures.This suture line was then inverted with a second row of 3-0 silk sutures. A Gray patch was then applied to the entire repair and wrapped around it by taking a piece of gastrocolic omentum and mobilizing it to the region. The abdomen was then checked for hemostasis. It was irrigated with 3 L of warm saline solution and aspirated free of all fluid and particulate matter. A 19 Kinyarwanda Tanner drain was placed through the left upper quadrant and placed in the infra duodenal area and in the lesser sac where most of the purulent material had been located. This was sewn into place with a nylon suture. A NG tube was passed through the right nare and placed into the stomach with direct visualization and guidance.This was taped in place. The wound was then closed with running looped PDS. The skin incision was closed loosely with clips and Betadine soaked Telfa was placed in between each clip to prevent fluid collection. All sponge, needle, and instrument counts were correct at the conclusion of the case. The patient was transferred to the surgical intensive care unit ventilated and sedated.
[2021-06-27] MEDS ORDERED: CEFEPIME 2 GM in SODIUM CHLORIDE 0.9% MINIBAG 100 ML IV SCH (18:00)
[2021-06-27] MEDS: CEFEPIME 2 GM in SODIUM CHLORIDE 0.9% MINIBAG 100 ML IV SCH (18:03)
[2021-06-27] MEDS: DEXMEDETOMIDINE 400 MCG in SODIUM CHLORIDE 0.9% 100ML 96 ML IV SCH (18:06)
--- NOTE | 2021-06-27 18:18 | PHARMACY PROGRESS NOTE ---
- Best Possible Medication History Admit Date and Time: 06/26/211813 Processed by: Pharmacy (Left message with adult family home for copy of med list) Medication History completed: In progress Patient Interview: Pt unable to participate As the person ultimately responsible for medication therapy, providers are able to order a medication from an existing home medication list in [facility] via the "Reconcile Routine" prior to Confirmation of that medication by computer technical support specialist. Such practice is discouraged except when the physician, in their clinical judgment, deems that a medical need exists for a medication without regard to previous use.
[2021-06-27] MEDS: TPN (CLINIMIX E 5/15) 2,000 ML with MULTIVITAMIN 10 ML, TRACE ELEMENTS 1 ML IV SCH ×3 (18:34)
[2021-06-27] MEDS: FAT EMULSION 20% 250 ML IV SCH (18:34)
[2021-06-27] MEDS: SODIUM CHLORIDE 0.9% 500 ML IV PRN (19:00)
[2021-06-27] MEDS: CHLORHEXIDINE GLUCONATE 15 ML UDC PO SCH (21:29)
[2021-06-28] MEDS: MIDAZOLAM 2 MG/2 ML VIAL IVP PRN ×5 (00:32→23:29)
[2021-06-28] MEDS: LORazepam 2 MG/ML VIAL IVP PRN ×2 (01:43→23:16)
[2021-06-28] MEDS: DEXMEDETOMIDINE 400 MCG in SODIUM CHLORIDE 0.9% 100ML 96 ML IV SCH ×4 (01:48→22:51)
[2021-06-28] MEDS: SODIUM CHLORIDE FLUSH 0.9% 10 ML SYRINGE IVP SCH ×3 (01:59→14:45)
[2021-06-28] MEDS: ACETAMINOPHEN 1,000 MG/100 ML 100 ML IV SCH ×2 (03:24→08:12)
[2021-06-28] MEDS: DEXTROSE 5%-0.9% NACL 1,000 ML IV SCH ×2 (03:29→13:33)
[2021-06-28 05:17] LABS: BASOPHILS % (AUTO) 0.3 %; EOSINOPHILS % (AUTO) 0.3 %; HCT - HEMATOCRIT 34.2 % (37.0-47.0); HGB - HEMOGLOBIN 10.8 g/dL (12.0-16.0); LYMPHOCYTES # (AUTO) 1.6 10^3/uL (1.5-3.5); LYMPHOCYTES % (AUTO) 13.2 %; MEAN CORPUSCULAR HGB CONC 31.6 g/dL (32.0-36.0); MEAN CORPUSCULAR VOLUME 91.9 fL (81.0-99.0); MEAN PLATELET VOLUME 10.9 fL (7.9-10.8); MONOCYTES # (AUTO) 0.5 10^3/uL (0.0-1.0); MONOCYTES % (AUTO) 4.6 %; NEUTROPHILS # (AUTO) 9.6 10^3/uL (1.5-6.6); NEUTROPHILS % (AUTO) 81.2 %; PLT - PLATELET COUNT 204 10^3/uL (130-450); RED BLOOD COUNT 3.72 10^6/uL (4.20-5.40); RED CELL DISTRIBUTION WIDTH 21.7 % (12.0-15.0); WHITE BLOOD COUNT 11.9 x10^3/uL (4.8-10.8)
[2021-06-28 05:21] LABS: SLIDE REVIEW? Indicated
[2021-06-28 05:31] LABS: ALBUMIN 2.2 g/dL (3.2-5.5); ALBUMIN/GLOBULIN RATIO 0.8 (1.0-2.2); BILIRUBIN,TOTAL 0.5 mg/dL (0.2-1.0); CALCIUM 7.7 mg/dL (8.5-10.3); CREATININE 1.4 mg/dL (0.4-1.0); MAGNESIUM 1.9 mg/dL (1.7-2.8); PHOSPHORUS 4.1 mg/dL (2.5-4.6); POTASSIUM 4.3 mmol/L (3.5-5.0); TOTAL PROTEIN 5.1 g/dL (6.7-8.2)
[2021-06-28] MEDS: metroNIDAZOLE 500 MG/100 ML 500 MG/100 ML BAG IV SCH ×3 (06:00→22:13)
[2021-06-28 06:01] LABS: PLATELET ESTIMATE, MANUAL NORMAL (130-450,000) (NORMAL)
[2021-06-28] MEDS: HYDROmorphone 1 MG/ML CARPUJECT IVP PRN ×3 (06:44→21:08)
[2021-06-28] MEDS: PANTOPRAZOLE 40 MG VIAL IVP SCH (06:44)
[2021-06-28 07:07] LABS: CALCIUM, IONIZED 1.07 mmol/L (1.15-1.33); VBG PH 7.371 (7.31-7.41)
[2021-06-28] MEDS ORDERED: CALCIUM GLUCONATE 1,000 MG in SODIUM CHLORIDE 0.9% 50 ML IV ONE (08:00)
[2021-06-28] MEDS: CEFEPIME 2 GM in SODIUM CHLORIDE 0.9% MINIBAG 100 ML IV SCH ×2 (08:50→21:00)
[2021-06-28] MEDS: ENOXAPARIN 40 MG/0.4 ML SYRINGE SUBQ SCH (08:51)
[2021-06-28] MEDS: CHLORHEXIDINE GLUCONATE 15 ML UDC PO SCH ×2 (08:52→21:00)
[2021-06-28] MEDS ORDERED: SODIUM CHLORIDE INHALATION 3 ML NEB ONE (10:19)
[2021-06-28] MEDS: FLUCONAZOLE 200 MG/100 ML 100 ML IV SCH (10:57)
[2021-06-28] MEDS ORDERED: ALTEPLASE 2 MG VIAL IJ ONE (11:56)
[2021-06-28] MEDS ORDERED: WATER FOR INJECTION,STERILE 10 ML MC ONE (12:36)
[2021-06-28] MEDS: SODIUM CHLORIDE 0.9% 500 ML IV PRN (14:34)
--- NOTE | 2021-06-28 16:17 | PROVIDER PROGRESS NOTE ---
Assessment/Plan - Problem List (1) Septic shock Assessment/Plan: Secondary to perforated duodenal ulcer and subsequent peritonitis. Patient is postop day #2 of an expiratory laparotomy With repair of posterior duodenal ulcer. Currently on cefepime, Flagyl and Diflucan. Currently on norepinephrine. Steadily titrating down as patient's pressures permit. Goal is to keep MAP greater than 65. Lactic acid improved down to 1.6 Currently on TPN (2) Perforated duodenal ulcer Assessment/Plan: Patient is postop day #2 of an expiratory laparotomy With repair of posterior duodenal ulcer. Currently on cefepime, Flagyl and Diflucan. Currently on norepinephrine. Steadily titrating down as patient's pressures permit. Goal is to keep MAP greater than 65. Lactic acid improved down to 1.6 Currently on TPN. General surgery primary (3) On mechanically assisted ventilation Assessment/Plan: Patient remains intubated as a result of septic shock. She is sedated with Precedex. We will extubate patient once she is hemodynamically stable after weaning of Levophed (4) Chronic diastolic heart failure Assessment/Plan: Patient has significant lower extremity edema. We will hold off on diuresis while patient is on Levophed. We will decrease hydration if patient becomes hypoxic. Patient is receiving TPN. And improve nutritional status may help with edema. (5) History of atrial fibrillation Assessment/Plan: History of sick sinus syndrome. Has a pacemaker in place. She is currently in a paced rhythm. Continue monitoring on telemetry. (6) History of pulmonary embolism Assessment/Plan: Oral medications currently held. She is on Lovenox for DVT prophylaxis. (7) Hypothyroidism Qualifiers: Hypothyroidism type: acquired Qualified Code(s): E03.9 - Hypothyroidism, unspecified Assessment/Plan: Synthroid currently held while NPO. We will consider IV Synthroid if n.p.o. for an extended period of time. 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 - Current Meds Current Meds: Current Medications Generic Name Dose Route Start Last Admin Trade Name Freq PRN Reason Stop Dose Admin Chlorhexidine Gluconate 15 ml 06/27/21 21:00 06/28/21 08:52 Chlorhexidine Gluconate 15 Ml Udc PO 15 ml BID JULIETA Administration Enoxaparin Sodium 40 mg 06/28/21 09:00 06/28/21 08:51 Enoxaparin 40 Mg/0.4 Ml Syringe SUBQ 40 mg DAILY JULIETA Administration Hydromorphone HCl 1 mg 06/27/21 10:08 06/28/21 15:17 Hydromorphone 1 Mg/Ml Carpuject IVP 1 mg Q2H PRN Administration PAIN Dextrose/Sodium Chloride 1,000 mls @ 100 mls/hr 06/26/21 21:00 06/28/21 13:33 D5ns IV Not Given .Q10H JULIETA Metronidazole 500 mg in 100 mls @ 100 mls/hr 06/26/21 22:00 06/28/21 14:42 Flagyl 500 Mg/100 Ml IV 100 mls/hr Q8HR JULIETA Administration Fluconazole 100 mls @ 100 mls/hr 06/27/21 09:00 06/28/21 12:00 Diflucan 200 Mg/100 Ml IV Infused DAILY JULIETA Infusion Norepinephrine Bitartrate 8 mg 250 mls @ 15 mls/hr 06/26/21 23:00 06/28/21 14:33 / Dextrose IV 10 mcg/min .[id number] JULIETA 18.75 mls/hr Administration Protocol 8 MCG/MIN Sodium Chloride 500 mls @ 20 mls/hr 06/26/21 23:03 06/28/21 14:34 Normal Saline 0.9% IV 20 mls/hr Q24H PRN Administration TKO RATE Dexmedetomidine HCl 400 mcg/ 100 mls @ 8.3 mls/hr 06/27/21 18:00 06/28/21 10:16 Sodium Chloride IV 0.7 mcg/kg/hr .Q12H3M JULIETA 14.525 mls/hr Administration Protocol 0.4 MCG/KG/HR Multivitamins 10 ml/ TRACE 2,011 mls @ 75 mls/hr 06/27/21 19:00 06/27/21 18:34 ELEMENTS 1 ml/ Amino Ac/ IV 75 mls/hr Electrol/Dextrose/Calcium Q24H JULIETA Administration Protocol Fat Emulsion Intravenous 250 mls @ 21 mls/hr 06/27/21 19:00 06/28/21 07:00 Intralipid 20% IV Infused Q24H JULIETA Infusion Cefepime HCl 2 gm/ Sodium 100 mls @ 200 mls/hr 06/27/21 18:00 06/28/21 09:30 Chloride IV Infused BID JULIETA Infusion Lorazepam 0.5 mg 06/26/21 20:54 06/28/21 01:43 Lorazepam 2 Mg/Ml Vial IVP 0.5 mg Q1H PRN Administration Anxiety Midazolam HCl 2 mg 06/28/21 00:24 06/28/21 04:40 Midazolam 2 Mg/2 Ml Vial IVP 2 mg Q2H PRN Administration Agitation Pantoprazole Sodium 40 mg 06/27/21 07:00 06/28/21 06:44 Pantoprazole 40 Mg Vial IVP 40 mg QDAC JULIETA Administration Sodium Chloride 10 ml 06/27/21 01:00 06/28/21 14:45 Sodium Chloride Flush 0.9% 10 Ml Syringe IVP 10 ml 0100,0900,1700 JULIETA Administration Sodium Chloride 10 ml 06/26/21 20:54 06/27/21 06:16 Sodium Chloride Flush 0.9% 10 Ml Syringe IVP 10 ml PRN PRN Administration NEEDED PER PROVIDER ORDERS Sodium Chloride 20 ml 06/26/21 23:03 06/27/21 04:16 Sodium Chloride Flush 0.9% 10 Ml Syringe IVP 20 ml PRN PRN Administration After Blood Draw - Lab Result Fish Bone Diagrams: 06/28/21 05:00 06/28/21 05:00 Subjective - Subjective Patient Reports: Other (And intubated. Appears to be resting comfortably) Objective Vital Signs: Vital Signs - 24 hr 06/27/21 06/27/21 06/27/21 16:30 16:45 17:00 Temperature Heart Rate Heart Rate [ 73 71 72 Monitoring electrodes] Respiratory 16 16 16 Rate Blood Pressure 106/59 L 110/57 L 129/82 H [Left Brachial artery] O2 Saturation 100 100 100 06/27/21 06/27/21 06/27/21 17:15 18:00 19:00 Temperature Heart Rate Heart Rate [ 70 72 72 Monitoring electrodes] Respiratory 16 16 16 Rate Blood Pressure 113/63 111/61 109/54 L [Left Brachial artery] O2 Saturation 100 100 100 06/27/21 06/27/21 06/27/21 19:10 20:00 21:00 Temperature 37.1 C Heart Rate 73 Heart Rate [ 71 70 Monitoring electrodes] Respiratory 16 16 Rate Blood Pressure 131/61 H 109/48 L [Left Brachial artery] O2 Saturation 99 99 06/27/21 06/27/21 06/27/21 21:10 22:00 23:00 Temperature Heart Rate 70 Heart Rate [ 71 70 Monitoring electrodes] Respiratory 16 16 Rate Blood Pressure 122/59 L 121/57 L [Left Brachial artery] O2 Saturation 99 99 06/27/21 06/28/21 06/28/21 23:35 00:00 01:00 Temperature 37.1 C Heart Rate 70 Heart Rate [ 70 70 Monitoring electrodes] Respiratory 16 16 Rate Blood Pressure 120/63 116/57 L [Left Brachial artery] O2 Saturation 99 99 06/28/21 06/28/21 06/28/21 01:20 02:00 02:54 Temperature Heart Rate 72 Heart Rate [ 73 70 Monitoring electrodes] Respiratory 16 16 Rate Blood Pressure 113/48 L 117/62 [Left Brachial artery] O2 Saturation 99 99 06/28/21 06/28/21 06/28/21 03:13 04:00 05:00 Temperature Heart Rate 70 Heart Rate [ 70 72 Monitoring electrodes] Respiratory 16 16 Rate Blood Pressure 124/62 109/62 [Left Brachial artery] O2 Saturation 100 100 06/28/21 06/28/21 06/28/21 05:35 06:00 07:00 Temperature Heart Rate 71 Heart Rate [ 74 71 Monitoring electrodes] Respiratory 16 16 Rate Blood Pressure 114/58 L 109/60 [Left Brachial artery] O2 Saturation 100 100 06/28/21 06/28/21 06/28/21 07:30 08:00 08:45 Temperature 37.0 C Heart Rate 72 Heart Rate [ 71 70 Monitoring electrodes] Respiratory 16 Rate Blood Pressure 112/63 123/84 H [Left Brachial artery] O2 Saturation 100 06/28/21 06/28/21 06/28/21 09:00 09:45 10:00 Temperature Heart Rate 70 Heart Rate [ 71 71 Monitoring electrodes] Respiratory 16 16 Rate Blood Pressure 120/59 L 98/55 L [Left Brachial artery] O2 Saturation 100 100 06/28/21 06/28/21 06/28/21 11:00 11:30 12:00 Temperature 37.3 C Heart Rate 70 Heart Rate [ 70 70 Monitoring electrodes] Respiratory 16 16 Rate Blood Pressure 102/53 L 104/58 L [Left Brachial artery] O2 Saturation 100 100 06/28/21 06/28/2106/28/21 13:00 13:30 14:00 Temperature Heart Rate 70 Heart Rate [ 70 70 Monitoring electrodes] Respiratory 16 16 Rate Blood Pressure 99/53 L 92/55 L [Left Brachial artery] O2 Saturation 100 100 06/28/21 06/28/21 15:00 15:30 Temperature Heart Rate 71 Heart Rate [ 72 Monitoring electrodes] Respiratory 16 Rate Blood Pressure 95/53 L [Left Brachial artery] O2 Saturation 100 Oxygen O2 Source Mechanical ventilator I&O (Last 24 Hrs): Intake and Output Totals x24h 06/26/21 06/27/21 06/28/21 23:59 23:59 23:59 Intake Total 2633.707 3684.196 3102.501 Output Total 165 1220 1290 Balance 8132.004 2018.196 1812.501 General: No acute distress, Other (Sedated and intubated) HEENT: Other (ET tube in place) Neck: Supple, No JVD Neuro: Other (Sedated) Cardiovascular: Regular rate, No murmurs Respiratory: Chest non-tender, No respiratory distress, Breath sounds nml Abdomen: Other (Decreased bowel sounds. Abdomen soft. Percutaneous drainage in place. Draining serosanguineous fluid.) Skin: No rashes, No breakdown - Results Results: Laboratory Results WBC 11.9 x10^3/uL (4.8-10.8) H 06/28/21 05:00 RBC 3.72 10^6/uL (4.20-5.40) L 06/28/21 05:00 Hgb 10.8 g/dL (12.0-16.0) L 06/28/21 05:00 Hct 34.2 % (37.0-47.0) L 06/28/21 05:00 MCV 91.9 fL (81.0-99.0) 06/28/21 05:00 MCH 29.0 pg (27.0-31.0) 06/28/21 05:00 MCHC 31.6 g/dL (32.0-36.0) L 06/28/21 05:00 RDW 21.7 % (12.0-15.0) H 06/28/21 05:00 Plt Count 204 10^3/uL (130-450) 06/28/21 05:00 MPV 10.9 fL (7.9-10.8) H 06/28/21 05:00 Neut # (Auto) 9.6 10^3/uL (1.5-6.6) H 06/28/21 05:00 Lymph # (Auto) 1.6 10^3/uL (1.5-3.5) 06/28/21 05:00 [place] # (Auto) 0.5 10^3/uL (0.0-1.0) 06/28/21 05:00 Eos # (Auto) 0.0 10^3/uL (0.0-0.7) 06/28/21 05:00 Baso # (Auto) 0.0 10^3/uL (0.0-0.1) 06/28/21 05:00 Absolute Nucleated RBC 0.00 x10^3/uL 06/28/21 05:00 Total Counted 100 06/27/21 04:20 Band Neuts % (Manual) 26 % (0-10) H 06/27/21 04:20 Abnorm Lymph % (Manual) 0 % 06/27/21 04:20 Nucleated RBC % 0.0 /100WBC 06/28/21 05:00 Neutrophils # (Manual) 11.3 10^3/uL (1.5-6.6) H 06/27/21 04:20 Lymphocytes # (Manual) 1.1 10^3/uL (1.5-3.5) L 06/27/21 04:20 Monocytes # (Manual) 0.1 10^3/uL (0.0-1.0) 06/27/21 04:20 Eosinophils # (Manual) 0.0 10^3/uL (0-0.7) 06/27/21 04:20 Basophils # (Manual) 0.0 10^3/uL (0-0.1) 06/27/21 04:20 Differential Comment MANUAL DIFFERENTIAL 06/27/21 04:20 Manual Slide Review Indicated 06/28/21 05:00 Platelet Estimate NORMAL (130-450,000) (NORMAL) 06/28/21 05:00 RBC Morph Micro Appear 1+ ANISOCYTOSIS (NORMAL) 1+ HYPOCHROMASIA (NORMAL) 1+ OVALOCYTES (NORMAL) 06/28/21 05:00 RBC Morph Micro Appear 1+ ANISOCYTOSIS (NORMAL) 1+ HYPOCHROMASIA (NORMAL) 1+ OVALOCYTES (NORMAL) 06/28/21 05:00 RBC Morph Micro Appear 1+ ANISOCYTOSIS (NORMAL) 1+ HYPOCHROMASIA (NORMAL) 1+ OVALOCYTES (NORMAL) 06/28/21 05:00 Bld Gas Analysis Time 0554 06/27/21 05:43 Sample Site RIGHT RADIAL 06/27/21 05:43 ABG pH 7.43 (7.35-7.45) 06/27/21 05:43 ABG pCO2 37 mmHg (34-45) 06/27/21 05:43 ABG pO2 124 mmHg (80-100) H 06/27/21 05:43 ABG HCO3 23.9 mmol/L (22.0-26.0) 06/27/21 05:43 ABG Total CO2 25.0 MMOL/L (21.0-29.0) 06/27/21 05:43 ABG O2 Saturation 99 % (94-98) H 06/27/21 05:43 ABG Base Excess 0.0 mmol/L (-2.0-3.0) 06/27/21 05:43 Ruperto Test POSITIVE 06/27/21 05:43 VBG pH 7.371 (7.31-7.41) 06/28/21 06:21 Ionized Calcium 1.07 mmol/L (1.15-1.33) L 06/28/21 06:21 Respiration Rate 16 b/min 06/27/21 05:43 O2 Delivery Device VENTILATOR 06/27/21 05:43 Vent Mode SIMV 06/27/21 05:43 FiO2 40.00 06/27/21 05:43 Tidal Volume 450 mL 06/27/21 05:43 PEEP 5 cmH2O 06/27/21 05:43 Pressure Support Vent 10 cmH2O 06/27/21 05:43 IPAP Not Reportable 06/27/21 05:43 Sodium 137 mmol/L (135-145) 06/28/21 05:00 Potassium 4.3 mmol/L (3.5-5.0) 06/28/21 05:00 Chloride 105 mmol/L (101-111) 06/28/21 05:00 Carbon Dioxide 24 mmol/L (21-32) 06/28/21 05:00 Anion Gap 8.0 (6-13) 06/28/21 05:00 BUN 34 mg/dL (6-20) H 06/28/21 05:00 Creatinine 1.4 mg/dL (0.4-1.0) H 06/28/21 05:00 Estimated GFR (MDRD) 36 (>89) L 06/28/21 05:00 Glucose 136 mg/dL (70-100) H 06/28/21 05:00 Lactic Acid 1.6 mmol/L (0.5-2.2) 06/27/21 21:01 Calcium 7.7 mg/dL (8.5-10.3) L 06/28/21 05:00 Phosphorus 4.1 mg/dL (2.5-4.6) 06/28/21 05:00 Magnesium 1.9 mg/dL (1.7-2.8) 06/28/21 05:00 Total Bilirubin 0.5 mg/dL (0.2-1.0) 06/28/21 05:00 AST 15 IU/L (10-42) 06/28/21 05:00 ALT 13 IU/L (10-60) 06/28/21 05:00 Alkaline Phosphatase 91 IU/L (42-121) 06/28/21 05:00 Troponin I High Sens 99.6 ng/L (2.3-14.8) H* 06/27/21 08:08 Total Protein 5.1 g/dL (6.7-8.2) L 06/28/21 05:00 Albumin 2.2 g/dL (3.2-5.5) L 06/28/21 05:00 Globulin 2.9 g/dL (2.1-4.2) 06/28/21 05:00 Albumin/Globulin Ratio 0.8 (1.0-2.2) L 06/28/21 05:00 Prealbumin 11 mg/dL (18-45) L 06/28/21 05:00 Triglycerides 89 mg/dL (-149) 06/28/21 05:00 Lipase 42 U/L (22-51) 06/26/21 14:26 Urine Color YELLOW 06/26/21 22:51 Urine Clarity CLEAR (CLEAR) 06/26/21 22:51 Urine pH 5.0 PH (5.0-7.5) 06/26/21 22:51 Ur Specific [place] 1.015 (1.002-1.030) 06/26/21 22:51 Urine Protein NEGATIVE mg/dL (NEGATIVE) 06/26/21 22:51 Urine Glucose (UA) NEGATIVE mg/dL (NEGATIVE) 06/26/21 22:51 Urine Ketones NEGATIVE mg/dL (NEGATIVE) 06/26/21 22:51 Urine Occult Blood NEGATIVE (NEGATIVE) 06/26/21 22:51 Urine Nitrite NEGATIVE (NEGATIVE) 06/26/21 22:51 Urine Bilirubin NEGATIVE (NEGATIVE) 06/26/21 22:51 Urine Urobilinogen 0.2 (NORMAL) E.U./dL (NORMAL) 06/26/21 22:51 Ur Leukocyte Esterase TRACE (NEGATIVE) H 06/26/21 22:51 Urine RBC 0-5 /HPF (0-5) 06/26/21 22:51 Urine WBC 4-5 /HPF (0-5) 06/26/21 22:51 Ur Squamous Epith Cells FEW Squamous (<= Few) 06/26/21 22:51 Urine Bacteria Few /HPF (None Seen) 06/26/21 22:51 Urine Casts 3-5 Hyaline Casts /LPF 06/26/21 22:51 Ur Microscopic Review INDICATED 06/26/21 22:51 Urine Culture Comments INDICATED 06/26/21 22:51 Nasal Adenovirus (PCR) NOT DETECTED 06/27/21 01:23 Nasal B. parapertussis DNA (PCR) NOT DETECTED 06/27/21 01:23 Nasal Coronavir 229E PCR NOT DETECTED 06/27/21 01:23 Nasal Coronavir HKU1 PCR NOT DETECTED 06/27/21 01:23 Nasal Coronavir NL63 PCR NOT DETECTED 06/27/21 01:23 Nasal Coronavir OC43 PCR NOT DETECTED 06/27/21 01:23 Nasal Enterovir/Rhinovir PCR NOT DETECTED 06/27/21 01:23 Nasal Influenza B PCR NOT DETECTED 06/27/21 01:23 Nasal Influenza A PCR NOT DETECTED 06/27/21 01:23 Nasal Parainfluen 1 PCR NOT DETECTED 06/27/21 01:23 Nasal Parainfluen 2 PCR NOT DETECTED 06/27/21 01:23 Nasal Parainfluen 3 PCR NOT DETECTED 06/27/21 01:23 Nasal Parainfluen 4 PCR NOT DETECTED 06/27/21 01:23 Nasal RSV (PCR) NOT DETECTED 06/27/21 01:23 Nasal Screen MRSA (PCR) NEGATIVE (NEGATIVE) 06/26/21 21:55 Nasal B.pertussis DNA PCR NOT DETECTED 06/27/21 01:23 Nasal C.pneumoniae (PCR) NOT DETECTED 06/27/21 01:23 Mk Human Metapneumo PCR NOT DETECTED 06/27/21 01:23 Nasal M.pneumoniae (PCR) NOT DETECTED 06/27/21 01:23 Nasal SARS-CoV-2 (PCR) DETECTED A 06/27/21 01:23 - Procedures Procedures: Procedures RESPIRATORY VENTILATION, LESS THAN 24 CONSECUTIVE HOURS (01/11/20) Sepsis Event Note (H) - Evaluation Current Stage of Sepsis: Septic shock Possible source of Sepsis: positive: GI tract/intra-abdominal - Sepsis Criteria Sepsis Criteria: WBC count greater than 10% bands, SBP drop more than 40mHg, MAP less than 65 mmHg, SBP less than 90 mmHg, Renal: urine output less than 0.5ml/kg/hr for 2 hours or creatinine gr, Metabolic: lactate > 2 mmol/L ABX Reporting Has patient been on IV antibiotics over the past 48 hours?: Yes
--- NOTE | 2021-06-28 16:21 | PROVIDER PROGRESS NOTE ---
Subjective - General Admit Date: 06/26/21 Procedure Date: 06/26/21 Post Op Days: 2 Procedure Performed: Exploratory laparotomy with repair of posterior duodenal ulcer - Review of Systems Drain Type: 19 [place] Tanner Drain Output Description: Serosanguineous - Other Other Information/Narrative: Remains intubated and mechanically ventilated.ERICK drain is in place and drainage is more serous today than yesterday. No gross evidence of a leak. Objective - Patient Data Reviewed Vital Signs: Yes Vital Signs: Vital Signs x48h Temp Pulse Pulse Resp BP Pulse Ox 06/28/21 15:30 71 06/28/21 15:00 72 16 95/53 L 100 06/28/21 14:00 70 16 92/55 L 100 06/28/21 13:30 70 06/28/21 13:00 70 16 99/53 L 100 06/28/21 12:00 37.3 C 70 16 104/58 L 100 06/28/21 11:30 70 06/28/21 11:00 70 16 102/53 L 100 06/28/21 10:00 71 16 98/55 L 100 06/28/21 09:45 70 06/28/21 09:00 71 16 120/59 L 100 06/28/21 08:45 70 123/84 H Weight: Weight 06/26/21 06/27/21 06/28/21 23:59 23:59 23:59 Weight (kg) 82 kg 83 kg 91 kg Intake & Output: Intake and Output Totals x24h 06/26/21 06/27/21 06/28/21 23:59 23:59 23:59 Intake Total 3098.640 7808.196 3102.501 Output Total 165 1220 1290 Balance 1062.924 5297.196 1812.501 - Lab Results Lab Results: 06/28/21 05:00 06/28/21 05:00 Other Lab Results: Lab Results x24hrs 06/28/21 06/28/21 06/28/21 Range/Units 06:21 05:00 05:00 WBC 11.9 H (4.8-10.8) x10^3/uL RBC 3.72 L (4.20-5.40) 10^6/uL Hgb 10.8 L (12.0-16.0) g/dL Hct 34.2 L (37.0-47.0) % MCV 91.9 (81.0-99.0) fL MCH 29.0 (27.0-31.0) pg MCHC 31.6 L (32.0-36.0) g/dL RDW 21.7 H (12.0-15.0) % Plt Count 204 (130-450) 10^3/uL MPV 10.9 H (7.9-10.8) fL Neut # (Auto) 9.6 H (1.5-6.6) 10^3/uL Lymph # (Auto) 1.6 (1.5-3.5) 10^3/uL [place] # (Auto) 0.5 (0.0-1.0) 10^3/uL Eos # (Auto) 0.0 (0.0-0.7) 10^3/uL Baso # (Auto) 0.0 (0.0-0.1) 10^3/uL Absolute Nucleated RBC 0.00 x10^3/uL Nucleated RBC % 0.0 /100WBC Manual Slide Review Indicated Platelet Estimate NORMAL (130-450,000) (NORMAL) RBC Morph Micro Appear 1+ OVALOCYTES (NORMAL) VBG pH 7.371 (7.31-7.41) Ionized Calcium 1.07 L (1.15-1.33) mmol/L Sodium 137 (135-145) mmol/L Potassium 4.3 (3.5-5.0) mmol/L Chloride 105 (101-111) mmol/L Carbon Dioxide 24 (21-32) mmol/L Anion Gap 8.0 (6-13) BUN 34 H (6-20) mg/dL Creatinine 1.4 H (0.4-1.0) mg/dL Estimated GFR (MDRD) 36 L (>89) Glucose 136 H (70-100) mg/dL Lactic Acid (0.5-2.2) mmol/L Calcium 7.7 L (8.5-10.3) mg/dL Phosphorus 4.1 (2.5-4.6) mg/dL Magnesium 1.9 (1.7-2.8) mg/dL Total Bilirubin 0.5 (0.2-1.0) mg/dL AST 15 (10-42) IU/L ALT 13 (10-60) IU/L Alkaline Phosphatase 91 (42-121) IU/L Total Protein 5.1 L (6.7-8.2) g/dL Albumin 2.2 L (3.2-5.5) g/dL Globulin 2.9 (2.1-4.2) g/dL Albumin/Globulin Ratio 0.8 L (1.0-2.2) Prealbumin 11 L (18-45) mg/dL Triglycerides 89 ( - 149) mg/dL 06/27/21 06/27/21 Range/Units 21:01 18:01 WBC (4.8-10.8) x10^3/uL RBC (4.20-5.40) 10^6/uL Hgb (12.0-16.0) g/dL Hct (37.0-47.0) % MCV (81.0-99.0) fL MCH (27.0-31.0) pg MCHC (32.0-36.0) g/dL RDW (12.0-15.0) % Plt Count (130-450) 10^3/uL MPV (7.9-10.8) fL Neut # (Auto) (1.5-6.6) 10^3/uL Lymph # (Auto) (1.5-3.5) 10^3/uL [place] # (Auto) (0.0-1.0) 10^3/uL Eos # (Auto) (0.0-0.7) 10^3/uL Baso # (Auto) (0.0-0.1) 10^3/uL Absolute Nucleated RBC x10^3/uL Nucleated RBC % /100WBC Manual Slide Review Platelet Estimate (NORMAL) RBC Morph Micro Appear (NORMAL) VBG pH (7.31-7.41) Ionized Calcium (1.15-1.33) mmol/L Sodium (135-145) mmol/L Potassium (3.5-5.0) mmol/L Chloride (101-111) mmol/L Carbon Dioxide (21-32) mmol/L Anion Gap (6-13) BUN (6-20) mg/dL Creatinine (0.4-1.0) mg/dL Estimated GFR (MDRD) (>89) Glucose (70-100) mg/dL Lactic Acid 1.6 2.1 (0.5-2.2) mmol/L Calcium (8.5-10.3) mg/dL Phosphorus (2.5-4.6) mg/dL Magnesium (1.7-2.8) mg/dL Total Bilirubin (0.2-1.0) mg/dL AST (10-42) IU/L ALT (10-60) IU/L Alkaline Phosphatase (42-121) IU/L Total Protein (6.7-8.2) g/dL Albumin (3.2-5.5) g/dL Globulin (2.1-4.2) g/dL Albumin/Globulin Ratio (1.0-2.2) Prealbumin (18-45) mg/dL Triglycerides ( - 149) mg/dL - Current Medications Current Medications: Current Medications Generic Name Dose Route Start Last Admin Trade Name Freq PRN Reason Stop Dose Admin Chlorhexidine Gluconate 15 ml 06/27/21 21:00 06/28/21 08:52 Chlorhexidine Gluconate 15 Ml Udc PO 15 ml BID JULIETA Administration Enoxaparin Sodium 40 mg 06/28/21 09:00 06/28/21 08:51 Enoxaparin 40 Mg/0.4 Ml Syringe SUBQ 40 mg DAILY JULIETA Administration Hydromorphone HCl 1 mg 06/27/21 10:08 06/28/21 15:17 Hydromorphone 1 Mg/Ml Carpuject IVP 1 mg Q2H PRN Administration PAIN Dextrose/Sodium Chloride 1,000 mls @ 100 mls/hr 06/26/21 21:00 06/28/21 13:33 D5ns IV Not Given .Q10H JULIETA Metronidazole 500 mg in 100 mls @ 100 mls/hr 06/26/21 22:00 06/28/21 14:42 Flagyl 500 Mg/100 Ml IV 100 mls/hr Q8HR JULIETA Administration Fluconazole 100 mls @ 100 mls/hr 06/27/21 09:00 06/28/21 12:00 Diflucan 200 Mg/100 Ml IV Infused DAILY JULIETA Infusion Norepinephrine Bitartrate 8 mg 250 mls @ 15 mls/hr 06/26/21 23:00 06/28/21 14:33 / Dextrose IV 10 mcg/min .[id number] JULIETA 18.75 mls/hr Administration Protocol 8 MCG/MIN Sodium Chloride 500 mls @ 20 mls/hr 06/26/21 23:03 06/28/21 14:34 Normal Saline 0.9% IV 20 mls/hr Q24H PRN Administration TKO RATE Dexmedetomidine HCl 400 mcg/ 100 mls @ 8.3 mls/hr 06/27/21 18:00 06/28/21 10:16 Sodium Chloride IV 0.7 mcg/kg/hr .Q12H3M JULIETA 14.525 mls/hr Administration Protocol 0.4 MCG/KG/HR Multivitamins 10 ml/ TRACE 2,011 mls @ 75 mls/hr 06/27/21 19:00 06/27/21 18:34 ELEMENTS 1 ml/ Amino Ac/ IV 75 mls/hr Electrol/Dextrose/Calcium Q24H JULIETA Administration Protocol Fat Emulsion Intravenous 250 mls @ 21 mls/hr 06/27/21 19:00 06/28/21 07:00 Intralipid 20% IV Infused Q24H JULIETA Infusion Cefepime HCl 2 gm/ Sodium 100 mls @ 200 mls/hr 06/27/21 18:00 06/28/21 09:30 Chloride IV Infused BID JULIETA Infusion Lorazepam 0.5 mg 06/26/21 20:54 06/28/21 01:43 Lorazepam 2 Mg/Ml Vial IVP 0.5 mg Q1H PRN Administration Anxiety Midazolam HCl 2 mg 06/28/21 00:24 06/28/21 04:40 Midazolam 2 Mg/2 Ml Vial IVP 2 mg Q2H PRN Administration Agitation Pantoprazole Sodium 40 mg 06/27/21 07:00 06/28/21 06:44 Pantoprazole 40 Mg Vial IVP 40 mg QDAC JULIETA Administration Sodium Chloride 10 ml 06/27/21 01:00 06/28/21 14:45 Sodium Chloride Flush 0.9% 10 Ml Syringe IVP 10 ml 0100,0900,1700 JULIETA Administration Sodium Chloride 10 ml 06/26/21 20:54 06/27/21 06:16 Sodium Chloride Flush 0.9% 10 Ml Syringe IVP 10 ml PRN PRN Administration NEEDED PER PROVIDER ORDERS Sodium Chloride 20 ml 06/26/21 23:03 06/27/21 04:16 Sodium Chloride Flush 0.9% 10 Ml Syringe IVP 20 ml PRN PRN Administration After Blood Draw - Physical Exam Wound/Incisions: positive: Dressing dry and intact Abdomen: positive: Tenderness. negative: Nml bowel sounds (Few bowel sounds) Skin: positive: Color nml Comments/Other: Gravely ill following repair of posterior perforated duodenal ulcer. Medicine is managing the lion share of the issues here. She remains intubated and mechanically ventilated.ERICK drainage is much more serous today than yesterdayCan remove the existing dressings and resoak the berry with Betadine solution. And replace a dry dressing. We need to leave the berry in for a few more days to allow for drainage as she had significant peritonitis and contamination.
[2021-06-28] MEDS: FAT EMULSION 20% 250 ML IV SCH (18:41)
[2021-06-28] MEDS: TPN (CLINIMIX E 5/15) 2,000 ML with MULTIVITAMIN 10 ML, TRACE ELEMENTS 1 ML IV SCH ×3 (18:42)
[2021-06-28] MEDS: GLYCOPYRROLATE 1 MG/5 ML VIAL SUBQ PRN (22:19)
[2021-06-28] MEDS: ACETAMINOPHEN 1,000 MG/100 ML 100 ML IV PRN (23:26)
[2021-06-29] MEDS: MIDAZOLAM 2 MG/2 ML VIAL IVP PRN ×5 (02:30→22:42)
[2021-06-29] MEDS: DEXTROSE 5%-0.9% NACL 1,000 ML IV SCH ×2 (02:48→08:24)
[2021-06-29 05:11] LABS: BASOPHILS % (AUTO) 0.3 %; EOSINOPHILS # (AUTO) 0.2 10^3/uL (0.0-0.7); EOSINOPHILS % (AUTO) 1.9 %; HGB - HEMOGLOBIN 9.6 g/dL (12.0-16.0); LYMPHOCYTES # (AUTO) 1.4 10^3/uL (1.5-3.5); MEAN CORPUSCULAR HEMOGLOBIN 28.6 pg (27.0-31.0); MEAN CORPUSCULAR VOLUME 92.3 fL (81.0-99.0); MEAN PLATELET VOLUME 11.2 fL (7.9-10.8); MONOCYTES # (AUTO) 0.4 10^3/uL (0.0-1.0); NEUTROPHILS # (AUTO) 8.1 10^3/uL (1.5-6.6); NEUTROPHILS % (AUTO) 79.1 %; PLT - PLATELET COUNT 144 10^3/uL (130-450); RED BLOOD COUNT 3.36 10^6/uL (4.20-5.40); RED CELL DISTRIBUTION WIDTH 21.2 % (12.0-15.0); WHITE BLOOD COUNT 10.2 x10^3/uL (4.8-10.8)
[2021-06-29 05:12] LABS: SLIDE REVIEW? Indicated
[2021-06-29 05:21] LABS: ALBUMIN 1.9 g/dL (3.2-5.5); ALBUMIN/GLOBULIN RATIO 0.7 (1.0-2.2); BILIRUBIN,TOTAL 0.8 mg/dL (0.2-1.0); CALCIUM 7.8 mg/dL (8.5-10.3); POTASSIUM 4.4 mmol/L (3.5-5.0); TOTAL PROTEIN 4.8 g/dL (6.7-8.2)
[2021-06-29] MEDS: SODIUM CHLORIDE FLUSH 0.9% 10 ML SYRINGE IVP SCH ×3 (05:26→16:41)
[2021-06-29 05:31] LABS: PLATELET ESTIMATE, MANUAL NORMAL (130-450,000) (NORMAL); PLATELET MORPHOLOGY NORMAL APPEARANCE (NORMAL); WBC MORPHOLOGY (MULTIPLE) NORMAL APPEARANCE (NORMAL)
[2021-06-29] MEDS: DEXMEDETOMIDINE 400 MCG in SODIUM CHLORIDE 0.9% 100ML 96 ML IV SCH ×3 (05:59→20:53)
[2021-06-29] MEDS: metroNIDAZOLE 500 MG/100 ML 500 MG/100 ML BAG IV SCH ×3 (06:00→16:40)
[2021-06-29 06:25] LABS: CALCIUM, IONIZED 1.09 mmol/L (1.15-1.33); VBG PH 7.421 (7.31-7.41)
[2021-06-29] MEDS: PANTOPRAZOLE 40 MG VIAL IVP SCH (07:05)
--- NOTE | 2021-06-29 07:50 | PROVIDER PROGRESS NOTE ---
Assessment/Plan - Problem List (1) Septic shock Assessment/Plan: (1) Septic shock Assessment/Plan: Secondary to perforated duodenal ulcer and subsequent peritonitis. Patient is postop day #3 of an expiratory laparotomy With repair of posterior duodenal ulcer. Currently on cefepime, Flagyl and Diflucan. Currently on norepinephrine. Steadily titrating down as patient's pressures permit. Goal is to keep MAP greater than 65. Lactic acid improved down to 1.6 Currently on TPN at goal (2) Perforated duodenal ulcer Assessment/Plan: Patient is postop day #3 of an expiratory laparotomy With repair of posterior duodenal ulcer. Currently on cefepime, Flagyl and Diflucan. Currently on norepinephrine. Steadily titrating down as patient's pressures permit. Goal is to keep MAP greater than 65. Lactic acid improved down to 1.6 Currently on TPN. General surgery primary (3) On mechanically assisted ventilation Assessment/Plan: Patient remains intubated as a result of septic shock. She is sedated with Precedex. We will extubate patient once she is hemodynamically stable after weaning of Levophed (4) Chronic diastolic heart failure Assessment/Plan: Patient has significant lower extremity edema. We will hold off on diuresis while patient is on Levophed. We will decrease hydration if patient becomes hypoxic. Patient is receiving TPN. And improve nutritional status may help with edema. (5) History of atrial fibrillation Assessment/Plan: History of sick sinus syndrome. Has a pacemaker in place. She is currently in a paced rhythm. Continue monitoring on telemetry. (6) History of pulmonary embolism Assessment/Plan: Oral medications currently held. She is on Lovenox for DVT prophylaxis. (7) Hypothyroidism Qualifiers: Hypothyroidism type: acquired Qualified Code(s): E03.9 - Hypothyroidism, unspecified Assessment/Plan: Synthroid currently held while NPO. We will consider IV Synthroid if n.p.o. for an extended period of time. 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 - Current Meds Current Meds: Current Medications Generic Name Dose Route Start Last Admin Trade Name Freq PRN Reason Stop Dose Admin Chlorhexidine Gluconate 15 ml 06/27/21 21:00 06/28/21 21:00 Chlorhexidine Gluconate 15 Ml Udc PO 15 ml BID JULIETA Administration Enoxaparin Sodium 40 mg 06/28/21 09:00 06/28/21 08:51 Enoxaparin 40 Mg/0.4 Ml Syringe SUBQ 40 mg DAILY JULIETA Administration Glycopyrrolate 0.2 mg 06/28/21 21:17 06/28/21 22:19 Glycopyrrolate 1 Mg/5 Ml Vial SUBQ 0.2 mg Q6H PRN Administration Excessive Secretions Hydromorphone HCl 1 mg 06/27/21 10:08 06/28/21 21:08 Hydromorphone 1 Mg/Ml Carpuject IVP 1 mg Q2H PRN Administration PAIN Dextrose/Sodium Chloride 1,000 mls @ 100 mls/hr 06/26/21 21:00 06/29/21 02:48 D5ns IV Not Given .Q10H JULIETA Metronidazole 500 mg in 100 mls @ 100 mls/hr 06/26/21 22:00 06/29/21 06:00 Flagyl 500 Mg/100 Ml IV 100 mls/hr Q8HR JULIETA Administration Fluconazole 100 mls @ 100 mls/hr 06/27/21 09:00 06/28/21 12:00 Diflucan 200 Mg/100 Ml IV Infused DAILY JULIETA Infusion Norepinephrine Bitartrate 8 mg 250 mls @ 15 mls/hr 06/26/21 23:00 06/29/21 02:27 / Dextrose IV 10 mcg/min .[id number] JULIETA 18.75 mls/hr Administration Protocol 8 MCG/MIN Sodium Chloride 500 mls @ 20 mls/hr 06/26/21 23:03 06/28/21 14:34 Normal Saline 0.9% IV 20 mls/hr Q24H PRN Administration TKO RATE Dexmedetomidine HCl 400 mcg/ 100 mls @ 8.3 mls/hr 06/27/21 18:00 06/29/21 05:59 Sodium Chloride IV 0.7 mcg/kg/hr .Q12H3M JULIETA 14.525 mls/hr Administration Protocol 0.4 MCG/KG/HR Multivitamins 10 ml/ TRACE 2,011 mls @ 75 mls/hr 06/27/21 19:00 06/28/21 18:42 ELEMENTS 1 ml/ Amino Ac/ IV 75 mls/hr Electrol/Dextrose/Calcium Q24H JULIETA Administration Protocol Fat Emulsion Intravenous 250 mls @ 21 mls/hr 06/27/21 19:00 06/29/21 06:37 Intralipid 20% IV Infused Q24H JULIETA Infusion Cefepime HCl 2 gm/ Sodium 100 mls @ 200 mls/hr 06/27/21 18:00 06/28/21 21:30 Chloride IV Infused BID JULIETA Infusion Acetaminophen 100 mls @ 400 mls/hr 06/28/21 10:21 06/28/21 23:41 Ofirmev IV Infused Q6H PRN Infusion pain Lorazepam 0.5 mg 06/26/21 20:54 06/28/21 23:16 Lorazepam 2 Mg/Ml Vial IVP 0.5 mg Q1H PRN Administration Anxiety Midazolam HCl 2 mg 06/28/21 00:24 06/29/21 05:25 Midazolam 2 Mg/2 Ml Vial IVP 2 mg Q2H PRN Administration Agitation Pantoprazole Sodium 40 mg 06/27/21 07:00 06/29/21 07:05 Pantoprazole 40 Mg Vial IVP 40 mg QDAC JULIETA Administration Sodium Chloride 10 ml 06/27/21 01:00 06/29/21 05:26 Sodium Chloride Flush 0.9% 10 Ml Syringe IVP 10 ml 0100,0900,1700 JULIETA Administration Sodium Chloride 10 ml 06/26/21 20:54 06/27/21 06:16 Sodium Chloride Flush 0.9% 10 Ml Syringe IVP 10 ml PRN PRN Administration NEEDED PER PROVIDER ORDERS Sodium Chloride 20 ml 06/26/21 23:03 06/27/21 04:16 Sodium Chloride Flush 0.9% 10 Ml Syringe IVP 20 ml PRN PRN Administration After Blood Draw - Lab Result Fish Bone Diagrams: 06/29/21 04:42 06/29/21 04:42 Subjective - Subjective Patient Reports: Other (Sedated and intubated. Appears to be resting comfortably) Objective Vital Signs: Vital Signs - 24 hr 06/28/21 06/28/21 06/28/21 08:00 08:45 09:00 Temperature 37.0 C Heart Rate Heart Rate [ 71 70 71 Monitoring electrodes] Respiratory 16 16 Rate Blood Pressure 112/63 123/84 H 120/59 L [Left Brachial artery] O2 Saturation 100 100 06/28/21 06/28/21 06/28/21 09:45 10:00 11:00 Temperature Heart Rate 70 Heart Rate [ 71 70 Monitoring electrodes] Respiratory 16 16 Rate Blood Pressure 98/55 L 102/53 L [Left Brachial artery] O2 Saturation 100 100 06/28/21 06/28/21 06/28/21 11:30 12:00 13:00 Temperature 37.3 C Heart Rate 70 Heart Rate [ 70 70 Monitoring electrodes] Respiratory 16 16 Rate Blood Pressure 104/58 L 99/53 L [Left Brachial artery] O2 Saturation 100 100 06/28/21 06/28/21 06/28/21 13:30 14:00 15:00 Temperature Heart Rate 70 Heart Rate [ 70 72 Monitoring electrodes] Respiratory 16 16 Rate Blood Pressure 92/55 L 95/53 L [Left Brachial artery] O2 Saturation 100 100 06/28/21 06/28/21 06/28/21 15:30 16:00 17:00 Temperature 37.2 C Heart Rate 71 Heart Rate [ 70 70 Monitoring electrodes] Respiratory 16 16 Rate Blood Pressure 95/51 L 99/53 L [Left Brachial artery] O2 Saturation 100 100 06/28/21 06/28/21 06/28/21 17:50 18:00 19:00 Temperature Heart Rate 70 Heart Rate [ 72 70 Monitoring electrodes] Respiratory 16 16 Rate Blood Pressure 99/57 L 99/51 L [Left Brachial artery] O2 Saturation 100 100 06/28/21 06/28/21 06/28/21 20:00 20:26 20:52 Temperature 37.2 C Heart Rate 71 Heart Rate [ 71 74 Monitoring electrodes] Respiratory 16 16 Rate Blood Pressure 100/50 L 105/56 L [Left Brachial artery] O2 Saturation 100 99 06/28/21 06/28/21 06/29/21 22:00 23:00 00:00 Temperature 37.9 C 37.4 C Heart Rate 84 Heart Rate [ 70 84 79 Monitoring electrodes] Respiratory 16 21 16 Rate Blood Pressure 101/54 L 111/61 109/63 [Left Brachial artery] O2 Saturation 99 99 99 06/29/21 06/29/21 06/29/21 01:00 02:00 03:00 Temperature 36.5 C Heart Rate 74 78 Heart Rate [ 83 75 Monitoring electrodes] Respiratory 16 16 Rate Blood Pressure 121/59 L 112/64 [Left Brachial artery] O2 Saturation 99 100 06/29/21 06/29/21 06/29/21 05:00 06:00 06:10 Temperature 37.1 C Heart Rate 73 Heart Rate [ 77 74 Monitoring electrodes] Respiratory 19 19 Rate Blood Pressure 107/62 108/60 [Left Brachial artery] O2 Saturation 99 99 06/29/21 07:00 Temperature Heart Rate Heart Rate [ 73 Monitoring electrodes] Respiratory 16 Rate Blood Pressure 115/53 L [Left Brachial artery] O2 Saturation 100 Oxygen O2 Source Mechanical ventilator I&O (Last 24 Hrs): Intake and Output Totals x24h 06/27/21 06/28/21 06/29/21 23:59 23:59 23:59 Intake Total 3863.196 5522.631 573.125 Output Total 1220 1765 1330 Balance 2643.196 7037.631 -426.875 Comments/Notes: General: No acute distress, Other (Sedated and intubated) HEENT: Other (ET tube in place) Neck: Supple, No JVD Neuro: Other (Sedated) Cardiovascular: Regular rate, No murmurs Respiratory: Chest non-tender, No respiratory distress, Breath sounds nml Abdomen: Other (Decreased bowel sounds. Abdomen soft. Percutaneous drainage in place. Draining serosanguineous fluid.) Skin: No rashes, No breakdown - Results Results: Laboratory Results WBC 10.2 x10^3/uL (4.8-10.8) 06/29/21 04:42 RBC 3.36 10^6/uL (4.20-5.40) L 06/29/21 04:42 Hgb 9.6 g/dL (12.0-16.0) L 06/29/21 04:42 Hct 31.0 % (37.0-47.0) L 06/29/21 04:42 MCV 92.3 fL (81.0-99.0) 06/29/21 04:42 MCH 28.6 pg (27.0-31.0) 06/29/21 04:42 MCHC 31.0 g/dL (32.0-36.0) L 06/29/21 04:42 RDW 21.2 % (12.0-15.0) H 06/29/21 04:42 Plt Count 144 10^3/uL (130-450) 06/29/21 04:42 MPV 11.2 fL (7.9-10.8) H 06/29/21 04:42 Neut # (Auto) 8.1 10^3/uL (1.5-6.6) H 06/29/21 04:42 Lymph # (Auto) 1.4 10^3/uL (1.5-3.5) L 06/29/21 04:42 [place] # (Auto) 0.4 10^3/uL (0.0-1.0) 06/29/21 04:42 Eos # (Auto) 0.2 10^3/uL (0.0-0.7) 06/29/21 04:42 Baso # (Auto) 0.0 10^3/uL (0.0-0.1) 06/29/21 04:42 Absolute Nucleated RBC 0.00 x10^3/uL 06/29/21 04:42 Total Counted 100 06/27/21 04:20 Band Neuts % (Manual) 26 % (0-10) H 06/27/21 04:20 Abnorm Lymph % (Manual) 0 % 06/27/21 04:20 Nucleated RBC % 0.0 /100WBC 06/29/21 04:42 Neutrophils # (Manual) 11.3 10^3/uL (1.5-6.6) H 06/27/21 04:20 Lymphocytes # (Manual) 1.1 10^3/uL (1.5-3.5) L 06/27/21 04:20 Monocytes # (Manual) 0.1 10^3/uL (0.0-1.0) 06/27/21 04:20 Eosinophils # (Manual) 0.0 10^3/uL (0-0.7) 06/27/21 04:20 Basophils # (Manual) 0.0 10^3/uL (0-0.1) 06/27/21 04:20 Differential Comment MANUAL DIFFERENTIAL 06/27/21 04:20 Manual Slide Review Indicated 06/29/21 04:42 WBC Morphology NORMAL APPEARANCE (NORMAL) 06/29/21 04:42 Platelet Estimate NORMAL (130-450,000) (NORMAL) 06/29/21 04:42 Platelet Morphology NORMAL APPEARANCE (NORMAL) 06/29/21 04:42 RBC Morph Micro Appear 1+ HYPOCHROMASIA (NORMAL) 1+ OVALOCYTES (NORMAL) 1+ ANISOCYTOSIS (NORMAL) 06/29/21 04:42 RBC Morph Micro Appear 1+ HYPOCHROMASIA (NORMAL) 1+ OVALOCYTES (NORMAL) 1+ ANISOCYTOSIS (NORMAL) 06/29/21 04:42 RBC Morph Micro Appear 1+ HYPOCHROMASIA (NORMAL) 1+ OVALOCYTES (NORMAL) 1+ ANISOCYTOSIS (NORMAL) 06/29/21 04:42 Bld Gas Analysis Time 0554 06/27/21 05:43 Sample Site RIGHT RADIAL 06/27/21 05:43 ABG pH 7.43 (7.35-7.45) 06/27/21 05:43 ABG pCO2 37 mmHg (34-45) 06/27/21 05:43 ABG pO2 124 mmHg (80-100) H 06/27/21 05:43 ABG HCO3 23.9 mmol/L (22.0-26.0) 06/27/21 05:43 ABG Total CO2 25.0 MMOL/L (21.0-29.0) 06/27/21 05:43 ABG O2 Saturation 99 % (94-98) H 06/27/21 05:43 ABG Base Excess 0.0 mmol/L (-2.0-3.0) 06/27/21 05:43 Ruperto Test POSITIVE 06/27/21 05:43 VBG pH 7.421 (7.31-7.41) H 06/29/21 06:15 Ionized Calcium 1.09 mmol/L (1.15-1.33) L 06/29/21 06:15 Respiration Rate 16 b/min 06/27/21 05:43 O2 Delivery Device VENTILATOR 06/27/21 05:43 Vent Mode SIMV 06/27/21 05:43 FiO2 40.00 06/27/21 05:43 Tidal Volume 450 mL 06/27/21 05:43 PEEP 5 cmH2O 06/27/21 05:43 Pressure Support Vent 10 cmH2O 06/27/21 05:43 IPAP Not Reportable 06/27/21 05:43 Sodium 138 mmol/L (135-145) 06/29/21 04:42 Potassium 4.4 mmol/L (3.5-5.0) 06/29/21 04:42 Chloride 107 mmol/L (101-111) 06/29/21 04:42 Carbon Dioxide 24 mmol/L (21-32) 06/29/21 04:42 Anion Gap 7.0 (6-13) 06/29/21 04:42 BUN 31 mg/dL (6-20) H 06/29/21 04:42 Creatinine 1.0 mg/dL (0.4-1.0) 06/29/21 04:42 Estimated GFR (MDRD) 53 (>89) L 06/29/21 04:42 Glucose 151 mg/dL (70-100) H 06/29/21 04:42 Lactic Acid 1.6 mmol/L (0.5-2.2) 06/27/21 21:01 Calcium 7.8 mg/dL (8.5-10.3) L 06/29/21 04:42 Phosphorus 4.1 mg/dL (2.5-4.6) 06/28/21 05:00 Magnesium 1.9 mg/dL (1.7-2.8) 06/28/21 05:00 Total Bilirubin 0.8 mg/dL (0.2-1.0) 06/29/21 04:42 AST 13 IU/L (10-42) 06/29/21 04:42 ALT 11 IU/L (10-60) 06/29/21 04:42 Alkaline Phosphatase 80 IU/L (42-121) 06/29/21 04:42 Troponin I High Sens 99.6 ng/L (2.3-14.8) H* 06/27/21 08:08 Total Protein 4.8 g/dL (6.7-8.2) L 06/29/21 04:42 Albumin 1.9 g/dL (3.2-5.5) L 06/29/21 04:42 Globulin 2.9 g/dL (2.1-4.2) 06/29/21 04:42 Albumin/Globulin Ratio 0.7 (1.0-2.2) L 06/29/21 04:42 Prealbumin 11 mg/dL (18-45) L 06/28/21 05:00 Triglycerides 89 mg/dL (-149) 06/28/21 05:00 Lipase 42 U/L (22-51) 06/26/21 14:26 Urine Color YELLOW 06/26/21 22:51 Urine Clarity CLEAR (CLEAR) 06/26/21 22:51 Urine pH 5.0 PH (5.0-7.5) 06/26/21 22:51 Ur Specific [place] 1.015 (1.002-1.030) 06/26/21 22:51 Urine Protein NEGATIVE mg/dL (NEGATIVE) 06/26/21 22:51 Urine Glucose (UA) NEGATIVE mg/dL (NEGATIVE) 06/26/21 22:51 Urine Ketones NEGATIVE mg/dL (NEGATIVE) 06/26/21 22:51 Urine Occult Blood NEGATIVE (NEGATIVE) 06/26/21 22:51 Urine Nitrite NEGATIVE (NEGATIVE) 06/26/21 22:51 Urine Bilirubin NEGATIVE (NEGATIVE) 06/26/21 22:51 Urine Urobilinogen 0.2 (NORMAL) E.U./dL (NORMAL) 06/26/21 22:51 Ur Leukocyte Esterase TRACE (NEGATIVE) H 06/26/21 22:51 Urine RBC 0-5 /HPF (0-5) 06/26/21 22:51 Urine WBC 4-5 /HPF (0-5) 06/26/21 22:51 Ur Squamous Epith Cells FEW Squamous (<= Few) 06/26/21 22:51 Urine Bacteria Few /HPF (None Seen) 06/26/21 22:51 Urine Casts 3-5 Hyaline Casts /LPF 06/26/21 22:51 Ur Microscopic Review INDICATED 06/26/21 22:51 Urine Culture Comments INDICATED 06/26/21 22:51 Nasal Adenovirus (PCR) NOT DETECTED 06/27/21 01:23 Nasal B. parapertussis DNA (PCR) NOT DETECTED 06/27/21 01:23 Nasal Coronavir 229E PCR NOT DETECTED 06/27/21 01:23 Nasal Coronavir HKU1 PCR NOT DETECTED 06/27/21 01:23 Nasal Coronavir NL63 PCR NOT DETECTED 06/27/21 01:23 Nasal Coronavir OC43 PCR NOT DETECTED 06/27/21 01:23 Nasal Enterovir/Rhinovir PCR NOT DETECTED 06/27/21 01:23 Nasal Influenza B PCR NOT DETECTED 06/27/21 01:23 Nasal Influenza A PCR NOT DETECTED 06/27/21 01:23 Nasal Parainfluen 1 PCR NOT DETECTED 06/27/21 01:23 Nasal Parainfluen 2 PCR NOT DETECTED 06/27/21 01:23 Nasal Parainfluen 3 PCR NOT DETECTED 06/27/21 01:23 Nasal Parainfluen 4 PCR NOT DETECTED 06/27/21 01:23 Nasal RSV (PCR) NOT DETECTED 06/27/21 01:23 Nasal Screen MRSA (PCR) NEGATIVE (NEGATIVE) 06/26/21 21:55 Nasal B.pertussis DNA PCR NOT DETECTED 06/27/21 01:23 Nasal C.pneumoniae (PCR) NOT DETECTED 06/27/21 01:23 Mk Human Metapneumo PCR NOT DETECTED 06/27/21 01:23 Nasal M.pneumoniae (PCR) NOT DETECTED 06/27/21 01:23 Nasal SARS-CoV-2 (PCR) DETECTED A 06/27/21 01:23 - Procedures Procedures: Procedures RESPIRATORY VENTILATION, LESS THAN 24 CONSECUTIVE HOURS (01/11/20) Sepsis Event Note (H) - Evaluation Current Stage of Sepsis: Septic shock Possible source of Sepsis: positive: GI tract/intra-abdominal - Sepsis Criteria Sepsis Criteria: WBC count greater than 10% bands, SBP drop more than 40mHg, MAP less than 65 mmHg, SBP less than 90 mmHg, Renal: urine output less than 0.5ml/kg/hr for 2 hours or creatinine gr, Metabolic: lactate > 2 mmol/L ABX Reporting Has patient been on IV antibiotics over the past 48 hours?: Yes
[2021-06-29] MEDS ORDERED: CALCIUM GLUCONATE 1,000 MG in SODIUM CHLORIDE 0.9% 50 ML IV ONE (08:00)
[2021-06-29 08:18] LABS: ABG HCO3 24.2 mmol/L (22.0-26.0); ABG OXYGEN SATURATION 98 % (94-98); ABG PCO2 34 mmHg (34-45); ABG PH 7.48 (7.35-7.45); ABG PO2 97 mmHg (80-100); ABG TCO2 25.2 MMOL/L (21.0-29.0); ALLEN TEST POSITIVE
[2021-06-29 08:19] LABS: ABG MODE OF VENTILATION ASSIST/CONTROL; ABG RESPIRATORY RATE 16 b/min
[2021-06-29] MEDS: SODIUM CHLORIDE 0.9% 500 ML IV PRN (08:20)
[2021-06-29] MEDS: CHLORHEXIDINE GLUCONATE 15 ML UDC PO SCH ×2 (08:23→20:56)
[2021-06-29] MEDS: ENOXAPARIN 40 MG/0.4 ML SYRINGE SUBQ SCH (08:24)
[2021-06-29] MEDS: CEFEPIME 2 GM in SODIUM CHLORIDE 0.9% MINIBAG 100 ML IV SCH ×2 (09:39→20:56)
[2021-06-29] MEDS: FLUCONAZOLE 200 MG/100 ML 100 ML IV SCH (09:44)
[2021-06-29] MEDS: GLYCOPYRROLATE 1 MG/5 ML VIAL SUBQ PRN (09:46)
--- NOTE | 2021-06-29 10:41 | PROVIDER PROGRESS NOTE ---
Subjective - General Admit Date: 06/26/21 Procedure Date: 06/26/21 Post Op Days: 3 Procedure Performed: Exploratory laparotomy with repair of posterior duodenal ulcer - Review of Systems Wound/Incisions: positive: Dressing dry and intact Drain Type: 19 Kinyarwanda Tanner Drain Output Description: Serosanguineous - Other Other Information/Narrative: Remains on the ventilator and sedated.Overall she is improving. Objective clinical data are more encouraging though she remains gravely ill. Objective - Patient Data Reviewed Vital Signs: Yes Vital Signs: Vital Signs x48h Temp Pulse Pulse Resp BP Pulse Ox 06/29/21 10:00 75 18 102/62 100 06/29/21 09:33 36.7 C 70 16 100 06/29/21 09:00 70 19 91/53 L 100 06/29/21 08:00 36.7 C 70 16 99/65 100 06/29/21 07:27 75 06/29/21 07:00 73 16 115/53 L 100 06/29/21 06:10 73 06/29/21 06:00 37.1 C 74 19 108/60 99 06/29/21 05:00 77 19 107/62 99 06/29/21 03:00 78 Weight: Weight 06/27/21 06/28/21 06/29/21 23:59 23:59 23:59 Weight (kg) 83 kg 91 kg Intake & Output: Intake and Output Totals x24h 06/27/21 06/28/21 06/29/21 23:59 23:59 23:59 Intake Total 3863.196 5522.631 1322.521 Output Total 1220 1765 1535 Balance 2643.196 3757.631 -212.479 - Lab Results Lab Results: 06/29/21 04:42 06/29/21 04:42 Other Lab Results: Lab Results x24hrs 06/29/21 06/29/21 06/29/21 Range/Units 08:14 06:15 04:42 WBC (4.8-10.8) x10^3/uL RBC (4.20-5.40) 10^6/uL Hgb (12.0-16.0) g/dL Hct (37.0-47.0) % MCV (81.0-99.0) fL MCH (27.0-31.0) pg MCHC (32.0-36.0) g/dL RDW (12.0-15.0) % Plt Count (130-450) 10^3/uL MPV (7.9-10.8) fL Neut # (Auto) (1.5-6.6) 10^3/uL Lymph # (Auto) (1.5-3.5) 10^3/uL [place] # (Auto) (0.0-1.0) 10^3/uL Eos # (Auto) (0.0-0.7) 10^3/uL Baso # (Auto) (0.0-0.1) 10^3/uL Absolute Nucleated RBC x10^3/uL Nucleated RBC % /100WBC Manual Slide Review WBC Morphology (NORMAL) Platelet Estimate (NORMAL) Platelet Morphology (NORMAL) RBC Morph Micro Appear (NORMAL) Bld Gas Analysis Time 0814 Sample Site LEFT RADIAL ABG pH 7.48 H (7.35-7.45) ABG pCO2 34 (34-45) mmHg ABG pO2 97 (80-100) mmHg ABG HCO3 24.2 (22.0-26.0) mmol/L ABG Total CO2 25.2 (21.0-29.0) MMOL/L ABG O2 Saturation 98 (94-98) % ABG Base Excess 1.0 (-2.0-3.0) mmol/L Ruperto Test POSITIVE VBG pH 7.421 H (7.31-7.41) Ionized Calcium 1.09 L (1.15-1.33) mmol/L Respiration Rate 16 b/min O2 Delivery Device VENTILATOR Vent Mode ASSIST/CONTROL FiO2 30.00 Tidal Volume 450 mL PEEP 5 cmH2O Sodium 138 (135-145) mmol/L Potassium 4.4 (3.5-5.0) mmol/L Chloride 107 (101-111) mmol/L Carbon Dioxide 24 (21-32) mmol/L Anion Gap 7.0 (6-13) BUN 31 H (6-20) mg/dL Creatinine 1.0 (0.4-1.0) mg/dL Estimated GFR (MDRD) 53 L (>89) Glucose 151 H (70-100) mg/dL Calcium 7.8 L (8.5-10.3) mg/dL Total Bilirubin 0.8 (0.2-1.0) mg/dL AST 13 (10-42) IU/L ALT 11 (10-60) IU/L Alkaline Phosphatase 80 (42-121) IU/L Total Protein 4.8 L (6.7-8.2) g/dL Albumin 1.9 L (3.2-5.5) g/dL Globulin 2.9 (2.1-4.2) g/dL Albumin/Globulin Ratio 0.7 L (1.0-2.2) 06/29/21 Range/Units 04:42 WBC 10.2 (4.8-10.8) x10^3/uL RBC 3.36 L (4.20-5.40) 10^6/uL Hgb 9.6 L (12.0-16.0) g/dL Hct 31.0 L (37.0-47.0) % MCV 92.3 (81.0-99.0) fL MCH 28.6 (27.0-31.0) pg MCHC 31.0 L (32.0-36.0) g/dL RDW 21.2 H (12.0-15.0) % Plt Count 144 (130-450) 10^3/uL MPV 11.2 H (7.9-10.8) fL Neut # (Auto) 8.1 H (1.5-6.6) 10^3/uL Lymph # (Auto) 1.4 L (1.5-3.5) 10^3/uL [place] # (Auto) 0.4 (0.0-1.0) 10^3/uL Eos # (Auto) 0.2 (0.0-0.7) 10^3/uL Baso # (Auto) 0.0 (0.0-0.1) 10^3/uL Absolute Nucleated RBC 0.00 x10^3/uL Nucleated RBC % 0.0 /100WBC Manual Slide Review Indicated WBC Morphology NORMAL APPEARANCE (NORMAL) Platelet Estimate NORMAL (130-450,000) (NORMAL) Platelet Morphology NORMAL APPEARANCE (NORMAL) RBC Morph Micro Appear 1+ ANISOCYTOSIS (NORMAL) Bld Gas Analysis Time Sample Site ABG pH (7.35-7.45) ABG pCO2 (34-45) mmHg ABG pO2 (80-100) mmHg ABG HCO3 (22.0-26.0) mmol/L ABG Total CO2 (21.0-29.0) MMOL/L ABG O2 Saturation (94-98) % ABG Base Excess (-2.0-3.0) mmol/L Ruperto Test VBG pH (7.31-7.41) Ionized Calcium (1.15-1.33) mmol/L Respiration Rate b/min O2 Delivery Device Vent Mode FiO2 Tidal Volume mL PEEP cmH2O Sodium (135-145) mmol/L Potassium (3.5-5.0) mmol/L Chloride (101-111) mmol/L Carbon Dioxide (21-32) mmol/L Anion Gap (6-13) BUN (6-20) mg/dL Creatinine (0.4-1.0) mg/dL Estimated GFR (MDRD) (>89) Glucose (70-100) mg/dL Calcium (8.5-10.3) mg/dL Total Bilirubin (0.2-1.0) mg/dL AST (10-42) IU/L ALT (10-60) IU/L Alkaline Phosphatase (42-121) IU/L Total Protein (6.7-8.2) g/dL Albumin (3.2-5.5) g/dL Globulin (2.1-4.2) g/dL Albumin/Globulin Ratio (1.0-2.2) - Current Medications Current Medications: Current Medications Generic Name Dose Route Start Last Admin Trade Name Freq PRN Reason Stop Dose Admin Chlorhexidine Gluconate 15 ml 06/27/21 21:00 06/29/21 08:23 Chlorhexidine Gluconate 15 Ml Udc PO 15 ml BID JULIETA Administration Enoxaparin Sodium 40 mg 06/28/21 09:00 06/29/21 08:24 Enoxaparin 40 Mg/0.4 Ml Syringe SUBQ 40 mg DAILY JULIETA Administration Glycopyrrolate 0.2 mg 06/28/21 21:17 06/29/21 09:46 Glycopyrrolate 1 Mg/5 Ml Vial SUBQ 0.2 mg Q6H PRN Administration Excessive Secretions Hydromorphone HCl 1 mg 06/27/21 10:08 06/28/21 21:08 Hydromorphone 1 Mg/Ml Carpuject IVP 1 mg Q2H PRN Administration PAIN Fluconazole 100 mls @ 100 mls/hr 09/30/21 09:00 06/29/21 09:44 Diflucan 200 Mg/100 Ml IV 100 mls/hr DAILY JULIETA Administration Norepinephrine Bitartrate 8 mg 250 mls @ 15 mls/hr 06/26/21 23:00 06/29/21 08:00 / Dextrose IV 8 mcg/min .[id number] JULIETA 15 mls/hr Titration Protocol 8 MCG/MIN Sodium Chloride 500 mls @ 20 mls/hr 06/26/21 23:03 06/29/21 08:20 Normal Saline 0.9% IV 20 mls/hr Q24H PRN Administration TKO RATE Dexmedetomidine HCl 400 mcg/ 100 mls @ 8.3 mls/hr 06/27/21 18:00 06/29/21 05:59 Sodium Chloride IV 0.7 mcg/kg/hr .Q12H3M JULIETA 14.525 mls/hr Administration Protocol 0.4 MCG/KG/HR Multivitamins 10 ml/ TRACE 2,011 mls @ 75 mls/hr 06/27/21 19:00 06/28/21 18:42 ELEMENTS 1 ml/ Amino Ac/ IV 75 mls/hr Electrol/Dextrose/Calcium Q24H JULIETA Administration Protocol Fat Emulsion Intravenous 250 mls @ 21 mls/hr 06/27/21 19:00 06/29/21 06:37 Intralipid 20% IV Infused Q24H JULIETA Infusion Cefepime HCl 2 gm/ Sodium 100 mls @ 200 mls/hr 06/27/21 18:00 06/29/21 10:10 Chloride IV Infused BID JULIETA Infusion Acetaminophen 100 mls @ 400 mls/hr 06/28/21 10:21 06/28/21 23:41 Ofirmev IV Infused Q6H PRN Infusion pain Metronidazole 500 mg in 100 mls @ 100 mls/hr 06/29/21 09:00 06/29/21 09:45 Flagyl 500 Mg/100 Ml IV Infused Q8H JULIETA Infusion Lorazepam 0.5 mg 06/26/21 20:54 06/28/21 23:16 Lorazepam 2 Mg/Ml Vial IVP 0.5 mg Q1H PRN Administration Anxiety Midazolam HCl 2 mg 06/28/21 00:24 06/29/21 09:58 Midazolam 2 Mg/2 Ml Vial IVP 2 mg Q2H PRN Administration Agitation Pantoprazole Sodium 40 mg 06/27/21 07:00 06/29/21 07:05 Pantoprazole 40 Mg Vial IVP 40 mg QDAC JULIETA Administration Sodium Chloride 10 ml 06/27/21 01:00 06/29/21 08:23 Sodium Chloride Flush 0.9% 10 Ml Syringe IVP 30 ml 0100,0900,1700 JULIETA Administration Sodium Chloride 10 ml 06/26/21 20:54 06/27/21 06:16 Sodium Chloride Flush 0.9% 10 Ml Syringe IVP 10 ml PRN PRN Administration NEEDED PER PROVIDER ORDERS Sodium Chloride 20 ml 06/26/21 23:03 06/27/21 04:16 Sodium Chloride Flush 0.9% 10 Ml Syringe IVP 20 ml PRN PRN Administration After Blood Draw - Physical Exam Wound/Incisions: positive: Healing well Abdomen: positive: No distention, Abnml bowel sounds (Few bowel sounds but improved from yesterday's exam) Comments/Other: Appears comfortable. Her abdominal wound is clean. I removed all of the estella today. We will just pain to the incision with Betadine now and covered with a dry dressing. Her drain is making only serous fluid now. The drain site is clean. ABX Reporting Has patient been on IV antibiotics over the past 48 hours?: Yes Impression/Plan - Problem List Problem List: 1. Gradual improvement following sepsis secondary to a perforated duodenal ulcer with peritonitis. She continues on cefepime, Diflucan, and Flagyl. 2. Wound is clean and dry. Healing is slow. Estella all removed. No evidence of infection. 3. TPN continues at goal. 4. All other management per the hospitalist service.
[2021-06-29] MEDS: HYDROmorphone 1 MG/ML CARPUJECT IVP PRN ×2 (11:01→17:37)
[2021-06-29] MEDS: TPN (CLINIMIX E 5/15) 2,000 ML with MULTIVITAMIN 10 ML, TRACE ELEMENTS 1 ML IV SCH ×3 (19:00)
[2021-06-29] MEDS: FAT EMULSION 20% 250 ML IV SCH (19:01)
[2021-06-30] MEDS: SODIUM CHLORIDE FLUSH 0.9% 10 ML SYRINGE IVP SCH ×3 (01:09→17:10)
[2021-06-30] MEDS: metroNIDAZOLE 500 MG/100 ML 500 MG/100 ML BAG IV SCH ×3 (01:09→17:10)
[2021-06-30] MEDS: HYDROmorphone 1 MG/ML CARPUJECT IVP PRN ×3 (01:18→15:48)
[2021-06-30] MEDS: MIDAZOLAM 2 MG/2 ML VIAL IVP PRN ×2 (02:46→08:24)
[2021-06-30 03:44] LABS: ABG HCO3 23.8 mmol/L (22.0-26.0); ABG OXYGEN SATURATION 97 % (94-98); ABG PCO2 35 mmHg (34-45); ABG PH 7.45 (7.35-7.45); ABG PO2 94 mmHg (80-100); ABG TCO2 24.9 MMOL/L (21.0-29.0); ALLEN TEST POSITIVE
[2021-06-30 03:45] LABS: ABG MODE OF VENTILATION ASSIST/CONTROL; ABG RESPIRATORY RATE 16 b/min
[2021-06-30] MEDS: DEXMEDETOMIDINE 400 MCG in SODIUM CHLORIDE 0.9% 100ML 96 ML IV SCH ×3 (03:57→19:31)
[2021-06-30 05:00] LABS: BASOPHILS % (AUTO) 0.3 %; EOSINOPHILS # (AUTO) 0.2 10^3/uL (0.0-0.7); EOSINOPHILS % (AUTO) 2.8 %; HCT - HEMATOCRIT 29.9 % (37.0-47.0); HGB - HEMOGLOBIN 9.4 g/dL (12.0-16.0); LYMPHOCYTES # (AUTO) 1.4 10^3/uL (1.5-3.5); LYMPHOCYTES % (AUTO) 17.4 %; MEAN CORPUSCULAR HEMOGLOBIN 29.2 pg (27.0-31.0); MEAN CORPUSCULAR HGB CONC 31.4 g/dL (32.0-36.0); MEAN CORPUSCULAR VOLUME 92.9 fL (81.0-99.0); MEAN PLATELET VOLUME 11.2 fL (7.9-10.8); MONOCYTES # (AUTO) 0.4 10^3/uL (0.0-1.0); MONOCYTES % (AUTO) 5.5 %; NEUTROPHILS # (AUTO) 5.8 10^3/uL (1.5-6.6); NEUTROPHILS % (AUTO) 73.1 %; NRBC ABSOLUTE COUNT (AUTO) 0.02 x10^3/uL; NUCLEATED RED BLOOD CELLS AUTO 0.3 /100WBC; PLT - PLATELET COUNT 155 10^3/uL (130-450); RED BLOOD COUNT 3.22 10^6/uL (4.20-5.40); RED CELL DISTRIBUTION WIDTH 20.7 % (12.0-15.0)
[2021-06-30 05:16] LABS: ALBUMIN 1.8 g/dL (3.2-5.5); ALBUMIN/GLOBULIN RATIO 0.6 (1.0-2.2); ALKALINE PHOSPHATASE 74 IU/L (42-121); ALT ALANINE AMINOTRANSFERASE < 10 IU/L (10-60); AST ASPARTATE AMINOTRANSFERASE 12 IU/L (10-42); BILIRUBIN,TOTAL 0.6 mg/dL (0.2-1.0); BUN - BLOOD UREA NITROGEN 28 mg/dL (6-20); CALCIUM 7.8 mg/dL (8.5-10.3); CARBON DIOXIDE - CO2 23 mmol/L (21-32); CHLORIDE 109 mmol/L (101-111); CREATININE 0.8 mg/dL (0.4-1.0); GFR - MDRD 69 (>89); GLUCOSE 124 mg/dL (70-100); MAGNESIUM 1.9 mg/dL (1.7-2.8); PHOSPHORUS 2.5 mg/dL (2.5-4.6); POTASSIUM 4.3 mmol/L (3.5-5.0); PREALBUMIN 9 mg/dL (18-45); SODIUM 138 mmol/L (135-145); TOTAL PROTEIN 4.8 g/dL (6.7-8.2); TRIGLYCERIDES 75 mg/dL
[2021-06-30 05:22] LABS: PLATELET ESTIMATE, MANUAL NORMAL (130-450,000) (NORMAL); PLATELET MORPHOLOGY NORMAL APPEARANCE (NORMAL); WBC MORPHOLOGY (MULTIPLE) NORMAL APPEARANCE (NORMAL)
[2021-06-30 05:25] LABS: SLIDE REVIEW? Indicated
[2021-06-30 05:50] LABS: CALCIUM, IONIZED 1.13 mmol/L (1.15-1.33); VBG PH 7.394 (7.31-7.41)
[2021-06-30] MEDS: PANTOPRAZOLE 40 MG VIAL IVP SCH (06:52)
--- NOTE | 2021-06-30 08:29 | PROVIDER PROGRESS NOTE ---
Assessment/Plan - Problem List (1) Septic shock Assessment/Plan: Secondary to perforated duodenal ulcer and subsequent peritonitis. Patient is postop day #4 of an expiratory laparotomy With repair of posterior duodenal ulcer. Currently on cefepime, Flagyl and Diflucan. Currently on norepinephrine. Steadily titrating down as patient's pressures permit. Goal is to keep MAP greater than 65. Lactic acid improved down to 1.6 Currently on TPN at goal (2) Perforated duodenal ulcer Assessment/Plan: Patient is postop day #4 of an expiratory laparotomy With repair of posterior duodenal ulcer. Currently on cefepime, Flagyl and Diflucan. Currently on norepinephrine. Steadily titrating down as patient's pressures permit. Goal is to keep MAP greater than 65. Lactic acid improved down to 1.6 Currently on TPN. General surgery primary (3) On mechanically assisted ventilation Assessment/Plan: Patient remains intubated as a result of septic shock. She is sedated with Precedex. We will extubate patient once she is hemodynamically stable after weaning of Levophed (4) Chronic diastolic heart failure Assessment/Plan: Patient has significant lower extremity edema. We will hold off on diuresis while patient is on Levophed. We will decrease hydration if patient becomes hypoxic. Patient is receiving TPN. And improve nutritional status may help with edema. (5) History of atrial fibrillation Assessment/Plan: History of sick sinus syndrome. Has a pacemaker in place. She is currently in a paced rhythm. Continue monitoring on telemetry. (6) History of pulmonary embolism Assessment/Plan: Oral medications currently held. She is on Lovenox for DVT prophylaxis. (7) Hypothyroidism Qualifiers: Hypothyroidism type: acquired Qualified Code(s): E03.9 - Hypothyroidism, unspecified Assessment/Plan: Synthroid currently held while NPO. We will consider IV Synthroid if n.p.o. for an extended period of time. 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 - Current Meds Current Meds: Current Medications Generic Name Dose Route Start Last Admin Trade Name Freq PRN Reason Stop Dose Admin Chlorhexidine Gluconate 15 ml 06/27/21 21:00 06/29/21 20:56 Chlorhexidine Gluconate 15 Ml Udc PO 15 ml BID JULIETA Administration Enoxaparin Sodium 40 mg 06/28/21 09:00 06/29/21 08:24 Enoxaparin 40 Mg/0.4 Ml Syringe SUBQ 40 mg DAILY JULIETA Administration Glycopyrrolate 0.2 mg 06/28/21 21:17 06/29/21 09:46 Glycopyrrolate 1 Mg/5 Ml Vial SUBQ 0.2 mg Q6H PRN Administration Excessive Secretions Hydromorphone HCl 1 mg 06/27/21 10:08 06/30/21 01:18 Hydromorphone 1 Mg/Ml Carpuject IVP 1 mg Q2H PRN Administration PAIN Fluconazole 100 mls @ 100 mls/hr 06/27/21 09:00 06/29/21 11:00 Diflucan 200 Mg/100 Ml IV Infused DAILY JULIETA Infusion Norepinephrine Bitartrate 8 mg 250 mls @ 15 mls/hr 06/26/21 23:00 06/29/21 22:54 / Dextrose IV 7 mcg/min .[id number] JULIETA 13.125 mls/hr Administration Protocol 8 MCG/MIN Sodium Chloride 500 mls @ 20 mls/hr 06/26/21 23:03 06/29/21 08:20 Normal Saline 0.9% IV 20 mls/hr Q24H PRN Administration TKO RATE Dexmedetomidine HCl 400 mcg/ 100 mls @ 8.3 mls/hr 06/27/21 18:00 06/30/21 03:57 Sodium Chloride IV 0.7 mcg/kg/hr .Q12H3M JULIETA 14.525 mls/hr Administration Protocol 0.4 MCG/KG/HR Multivitamins 10 ml/ TRACE 2,011 mls @ 75 mls/hr 06/27/21 19:00 06/29/21 19:00 ELEMENTS 1 ml/ Amino Ac/ IV 75 mls/hr Electrol/Dextrose/Calcium Q24H JULIETA Administration Protocol Fat Emulsion Intravenous 250 mls @ 21 mls/hr 06/27/21 19:00 06/29/21 19:01 Intralipid 20% IV 21 mls/hr Q24H JULIETA Administration Cefepime HCl 2 gm/ Sodium 100 mls @ 200 mls/hr 06/27/21 18:00 06/29/21 21:30 Chloride IV Infused BID JULIETA Infusion Acetaminophen 100 mls @ 400 mls/hr 06/28/21 10:21 06/28/21 23:41 Ofirmev IV Infused Q6H PRN Infusion pain Metronidazole 500 mg in 100 mls @ 100 mls/hr 06/29/21 09:00 06/30/21 02:10 Flagyl 500 Mg/100 Ml IV Infused Q8H JULIETA Infusion Lorazepam 0.5 mg 06/26/21 20:54 06/28/21 23:16 Lorazepam 2 Mg/Ml Vial IVP 0.5 mg Q1H PRN Administration Anxiety Midazolam HCl 2 mg 06/28/21 00:24 06/30/21 08:24 Midazolam 2 Mg/2 Ml Vial IVP 2 mg Q2H PRN Administration Agitation Pantoprazole Sodium 40 mg 06/27/21 07:00 06/30/21 06:52 Pantoprazole 40 Mg Vial IVP 40 mg QDAC JULIETA Administration Sodium Chloride 10 ml 06/27/21 01:00 06/30/21 01:09 Sodium Chloride Flush 0.9% 10 Ml Syringe IVP 10 ml 0100,0900,1700 JULIETA Administration Sodium Chloride 10 ml 06/26/21 20:54 06/27/21 06:16 Sodium Chloride Flush 0.9% 10 Ml Syringe IVP 10 ml PRN PRN Administration NEEDED PER PROVIDER ORDERS Sodium Chloride 20 ml 06/26/21 23:03 06/27/21 04:16 Sodium Chloride Flush 0.9% 10 Ml Syringe IVP 20 ml PRN PRN Administration After Blood Draw - Lab Result Fish Bone Diagrams: 06/30/21 04:50 06/30/21 04:50 Subjective - Subjective Patient Reports: Other (Sedated and intubated. Appears to be resting comfortably) Objective Vital Signs: Vital Signs - 24 hr 06/29/21 06/29/21 06/29/21 09:00 09:33 10:00 Temperature 36.7 C Heart Rate 70 Heart Rate [ 70 75 Monitoring electrodes] Respiratory 19 16 18 Rate Blood Pressure 91/53 L 102/62 [Left Brachial artery] O2 Saturation 100 100 100 06/29/21 06/29/2121 11:00 12:00 13:00 Temperature 36.4 C L Heart Rate Heart Rate [ 72 71 70 Monitoring electrodes] Respiratory 16 17 16 Rate Blood Pressure 118/65 104/54 L 92/53 L [Left Brachial artery] O2 Saturation 100 100 100 06/29/21 06/29/21 06/29/21 13:06 14:00 15:00 Temperature Heart Rate 70 Heart Rate [ 73 70 Monitoring electrodes] Respiratory 22 19 Rate Blood Pressure 96/57 L 94/56 L [Left Brachial artery] O2 Saturation 100 100 06/29/21 06/29/21 06/29/21 16:00 16:15 17:00 Temperature 36.8 C Heart Rate 72 Heart Rate [ 73 72 Monitoring electrodes] Respiratory 20 20 Rate Blood Pressure 96/58 L 91/53 L [Left Brachial artery] O2 Saturation 100 100 06/29/21 06/29/21 06/29/21 17:45 18:00 19:00 Temperature Heart Rate Heart Rate [ 70 73 70 Monitoring electrodes] Respiratory 18 19 Rate Blood Pressure 81/45 L 94/56 L 95/55 L [Left Brachial artery] O2 Saturation 100 100 06/29/21 06/29/21 06/29/21 19:14 19:45 21:00 Temperature 36.6 C Heart Rate 70 Heart Rate [ 70 70 Monitoring electrodes] Respiratory 15 17 Rate Blood Pressure 98/57 L 110/57 L [Left Brachial artery] O2 Saturation 100 100 06/29/21 06/29/21 06/29/21 22:00 22:34 23:00 Temperature Heart Rate 70 Heart Rate [ 70 70 Monitoring electrodes] Respiratory 19 17 Rate Blood Pressure 102/58 L 110/60 [Left Brachial artery] O2 Saturation 100 100 06/30/21 06/30/21 06/30/21 00:00 01:00 02:00 Temperature 36.8 C Heart Rate 70 Heart Rate [ 70 71 Monitoring electrodes] Respiratory 19 18 18 Rate Blood Pressure 103/54 L 109/56 L 105/55 L [Left Brachial artery] O2 Saturation 100 100 100 06/30/21 06/30/21 06/30/21 03:00 03:25 04:00 Temperature 36.8 C Heart Rate 70 Heart Rate [ 71 72 Monitoring electrodes] Respiratory 19 19 Rate Blood Pressure 104/60 108/55 L [Left Brachial artery] O2 Saturation 100 100 06/30/21 06/30/21 06/30/21 05:00 06:00 06:59 Temperature Heart Rate 71 Heart Rate [ 73 70 Monitoring electrodes] Respiratory 19 18 Rate Blood Pressure 109/64 115/58 L [Left Brachial artery] O2 Saturation 99 100 06/30/21 07:00 Temperature Heart Rate Heart Rate [ 82 Monitoring electrodes] Respiratory 20 Rate Blood Pressure 120/54 L [Left Brachial artery] O2 Saturation 100 Oxygen O2 Source Mechanical ventilator I&O (Last 24 Hrs): Intake and Output Totals x24h 06/28/21 06/29/21 06/30/21 23:59 23:59 23:59 Intake Total 5522.631 3847.791 360 Output Total 1765 2455 760 Balance 3757.631 1392.791 -400 General: No acute distress, Other (Sedated and intubated) HEENT: Other (ET tube in place) Neuro: Other (Sedated) Cardiovascular: Regular rate, No murmurs Respiratory: Chest non-tender, No respiratory distress, Other (Coarse breath sounds) Abdomen: Normal bowel sounds, Soft, No tenderness, No masses Extremities: No clubbing, No cyanosis, Other (3+ edema bilaterally) Skin: No rashes, No breakdown, No significant lesion - Results Results: Laboratory Results WBC 8.0 x10^3/uL (4.8-10.8) 06/30/21 04:50 RBC 3.22 10^6/uL (4.20-5.40) L 06/30/21 04:50 Hgb 9.4 g/dL (12.0-16.0) L 06/30/21 04:50 Hct 29.9 % (37.0-47.0) L 06/30/21 04:50 MCV 92.9 fL (81.0-99.0) 06/30/21 04:50 MCH 29.2 pg (27.0-31.0) 06/30/21 04:50 MCHC 31.4 g/dL (32.0-36.0) L 06/30/21 04:50 RDW 20.7 % (12.0-15.0) H 06/30/21 04:50 Plt Count 155 10^3/uL (130-450) 06/30/21 04:50 MPV 11.2 fL (7.9-10.8) H 06/30/21 04:50 Neut # (Auto) 5.8 10^3/uL (1.5-6.6) 06/30/21 04:50 Lymph # (Auto) 1.4 10^3/uL (1.5-3.5) L 06/30/21 04:50 [place] # (Auto) 0.4 10^3/uL (0.0-1.0) 06/30/21 04:50 Eos # (Auto) 0.2 10^3/uL (0.0-0.7) 06/30/21 04:50 Baso # (Auto) 0.0 10^3/uL (0.0-0.1) 06/30/21 04:50 Absolute Nucleated RBC 0.02 x10^3/uL 06/30/21 04:50 Total Counted 100 06/27/21 04:20 Band Neuts % (Manual) 26 % (0-10) H 06/27/21 04:20 Abnorm Lymph % (Manual) 0 % 06/27/21 04:20 Nucleated RBC % 0.3 /100WBC 06/30/21 04:50 Neutrophils # (Manual) 11.3 10^3/uL (1.5-6.6) H 06/27/21 04:20 Lymphocytes # (Manual) 1.1 10^3/uL (1.5-3.5) L 06/27/21 04:20 Monocytes # (Manual) 0.1 10^3/uL (0.0-1.0) 06/27/21 04:20 Eosinophils # (Manual) 0.0 10^3/uL (0-0.7) 06/27/21 04:20 Basophils # (Manual) 0.0 10^3/uL (0-0.1) 06/27/21 04:20 Differential Comment MANUAL DIFFERENTIAL 06/27/21 04:20 Manual Slide Review Indicated 06/30/21 04:50 WBC Morphology NORMAL APPEARANCE (NORMAL) 06/30/21 04:50 Platelet Estimate NORMAL (130-450,000) (NORMAL) 06/30/21 04:50 Platelet Morphology NORMAL APPEARANCE (NORMAL) 06/30/21 04:50 RBC Morph Micro Appear 1+ HYPOCHROMASIA (NORMAL) 1+ OVALOCYTES (NORMAL) 1+ ANISOCYTOSIS (NORMAL) 06/30/21 04:50 RBC Morph Micro Appear 1+ HYPOCHROMASIA (NORMAL) 1+ OVALOCYTES (NORMAL) 1+ ANISOCYTOSIS (NORMAL) 06/30/21 04:50 RBC Morph Micro Appear 1+ HYPOCHROMASIA (NORMAL) 1+ OVALOCYTES (NORMAL) 1+ ANISOCYTOSIS (NORMAL) 06/30/21 04:50 Bld Gas Analysis Time 0344 06/30/21 03:38 Sample Site LEFT RADIAL 06/30/21 03:38 ABG pH 7.45 (7.35-7.45) 06/30/21 03:38 ABG pCO2 35 mmHg (34-45) 06/30/21 03:38 ABG pO2 94 mmHg (80-100) 06/30/21 03:38 ABG HCO3 23.8 mmol/L (22.0-26.0) 06/30/21 03:38 ABG Total CO2 24.9 MMOL/L (21.0-29.0) 06/30/21 03:38 ABG O2 Saturation 97 % (94-98) 06/30/21 03:38 ABG Base Excess 0.0 mmol/L (-2.0-3.0) 06/30/21 03:38 Ruperto Test POSITIVE 06/30/21 03:38 VBG pH 7.394 (7.31-7.41) 06/30/21 04:50 Ionized Calcium 1.13 mmol/L (1.15-1.33) L 06/30/21 04:50 Respiration Rate 16 b/min 06/30/21 03:38 O2 Delivery Device VENTILATOR 06/30/21 03:38 Vent Mode ASSIST/CONTROL 06/30/21 03:38 FiO2 30.00 06/30/21 03:38 Tidal Volume 400 mL 06/30/21 03:38 PEEP 5 cmH2O 06/30/21 03:38 Pressure Support Vent 10 cmH2O 06/27/21 05:43 IPAP Not Reportable 06/27/21 05:43 Sodium 138 mmol/L (135-145) 06/30/21 04:50 Potassium 4.3 mmol/L (3.5-5.0) 06/30/21 04:50 Chloride 109 mmol/L (101-111) 06/30/21 04:50 Carbon Dioxide 23 mmol/L (21-32) 06/30/21 04:50 Anion Gap 6.0 (6-13) 06/30/21 04:50 BUN 28 mg/dL (6-20) H 06/30/21 04:50 Creatinine 0.8 mg/dL (0.4-1.0) 06/30/21 04:50 Estimated GFR (MDRD) 69 (>89) L 06/30/21 04:50 Glucose 124 mg/dL (70-100) H 06/30/21 04:50 Lactic Acid 1.6 mmol/L (0.5-2.2) 06/27/21 21:01 Calcium 7.8 mg/dL (8.5-10.3) L 06/30/21 04:50 Phosphorus 2.5 mg/dL (2.5-4.6) 06/30/21 04:50 Magnesium 1.9 mg/dL (1.7-2.8) 06/30/21 04:50 Total Bilirubin 0.6 mg/dL (0.2-1.0) 06/30/21 04:50 AST 12 IU/L (10-42) 06/30/21 04:50 ALT < 10 IU/L (10-60) L 06/30/21 04:50 Alkaline Phosphatase 74 IU/L (42-121) 06/30/21 04:50 Troponin I High Sens 99.6 ng/L (2.3-14.8) H* 06/27/21 08:08 Total Protein 4.8 g/dL (6.7-8.2) L 06/30/21 04:50 Albumin 1.8 g/dL (3.2-5.5) L 06/30/21 04:50 Globulin 3.0 g/dL (2.1-4.2) 06/30/21 04:50 Albumin/Globulin Ratio 0.6 (1.0-2.2) L 06/30/21 04:50 Prealbumin 9 mg/dL (18-45) L 06/30/21 04:50 Triglycerides 75 mg/dL (-149) 06/30/21 04:50 Lipase 42 U/L (22-51) 06/26/21 14:26 Urine Color YELLOW 06/26/21 22:51 Urine Clarity CLEAR (CLEAR) 06/26/21 22:51 Urine pH 5.0 PH (5.0-7.5) 06/26/21 22:51 Ur Specific [place] 1.015 (1.002-1.030) 06/26/21 22:51 Urine Protein NEGATIVE mg/dL (NEGATIVE) 06/26/21 22:51 Urine Glucose (UA) NEGATIVE mg/dL (NEGATIVE) 06/26/21 22:51 Urine Ketones NEGATIVE mg/dL (NEGATIVE) 06/26/21 22:51 Urine Occult Blood NEGATIVE (NEGATIVE) 06/26/21 22:51 Urine Nitrite NEGATIVE (NEGATIVE) 06/26/21 22:51 Urine Bilirubin NEGATIVE (NEGATIVE) 06/26/21 22:51 Urine Urobilinogen 0.2 (NORMAL) E.U./dL (NORMAL) 06/26/21 22:51 Ur Leukocyte Esterase TRACE (NEGATIVE) H 06/26/21 22:51 Urine RBC 0-5 /HPF (0-5) 06/26/21 22:51 Urine WBC 4-5 /HPF (0-5) 06/26/21 22:51 Ur Squamous Epith Cells FEW Squamous (<= Few) 06/26/21 22:51 Urine Bacteria Few /HPF (None Seen) 06/26/21 22:51 Urine Casts 3-5 Hyaline Casts /LPF 06/26/21 22:51 Ur Microscopic Review INDICATED 06/26/21 22:51 Urine Culture Comments INDICATED 06/26/21 22:51 Nasal Adenovirus (PCR) NOT DETECTED 06/27/21 01:23 Nasal B. parapertussis DNA (PCR) NOT DETECTED 06/27/21 01:23 Nasal Coronavir 229E PCR NOT DETECTED 06/27/21 01:23 Nasal Coronavir HKU1 PCR NOT DETECTED 06/27/21 01:23 Nasal Coronavir NL63 PCR NOT DETECTED 06/27/21 01:23 Nasal Coronavir OC43 PCR NOT DETECTED 06/27/21 01:23 Nasal Enterovir/Rhinovir PCR NOT DETECTED 06/27/21 01:23 Nasal Influenza B PCR NOT DETECTED 06/27/21 01:23 Nasal Influenza A PCR NOT DETECTED 06/27/21 01:23 Nasal Parainfluen 1 PCR NOT DETECTED 06/27/21 01:23 Nasal Parainfluen 2 PCR NOT DETECTED 06/27/21 01:23 Nasal Parainfluen 3 PCR NOT DETECTED 06/27/21 01:23 Nasal Parainfluen 4 PCR NOT DETECTED 06/27/21 01:23 Nasal RSV (PCR) NOT DETECTED 06/27/21 01:23 Nasal Screen MRSA (PCR) NEGATIVE (NEGATIVE) 06/26/21 21:55 Nasal B.pertussis DNA PCR NOT DETECTED 06/27/21 01:23 Nasal C.pneumoniae (PCR) NOT DETECTED 06/27/21 01:23 Mk Human Metapneumo PCR NOT DETECTED 06/27/21 01:23 Nasal M.pneumoniae (PCR) NOT DETECTED 06/27/21 01:23 Nasal SARS-CoV-2 (PCR) DETECTED A 06/27/21 01:23 - Procedures Procedures: Procedures RESPIRATORY VENTILATION, LESS THAN 24 CONSECUTIVE HOURS (01/11/20) Sepsis Event Note (H) - Evaluation Current Stage of Sepsis: Septic shock Possible source of Sepsis: positive: GI tract/intra-abdominal - Sepsis Criteria Sepsis Criteria: WBC count greater than 10% bands, SBP drop more than 40mHg, MAP less than 65 mmHg, SBP less than 90 mmHg, Renal: urine output less than 0.5ml/kg/hr for 2 hours or creatinine gr, Metabolic: lactate > 2 mmol/L ABX Reporting Has patient been on IV antibiotics over the past 48 hours?: Yes
[2021-06-30] MEDS: CEFEPIME 2 GM in SODIUM CHLORIDE 0.9% MINIBAG 100 ML IV SCH ×2 (08:48→20:31)
[2021-06-30] MEDS: CHLORHEXIDINE GLUCONATE 15 ML UDC PO SCH ×2 (08:52→20:32)
[2021-06-30] MEDS: ENOXAPARIN 40 MG/0.4 ML SYRINGE SUBQ SCH (08:52)
[2021-06-30] MEDS: FLUCONAZOLE 200 MG/100 ML 100 ML IV SCH (09:47)
--- NOTE | 2021-06-30 12:32 | PROVIDER PROGRESS NOTE ---
Subjective - Subjective Subjective: sedated/ not responsive Objective - Vital Signs/Intake & Output Vital Signs: Vital Signs x48h Temp Pulse Pulse Resp BP Pulse Ox 06/30/21 12:09 70 06/30/21 12:00 37 C 73 23 105/56 L 100 06/30/21 11:00 70 20 109/53 L 100 06/30/21 10:00 72 19 105/50 L 100 06/30/21 09:09 70 06/30/21 09:00 71 20 91/50 L 99 06/30/21 08:00 37.5 C 20 91/50 L 99 06/30/21 07:00 82 20 120/54 L 100 06/30/21 06:59 71 06/30/21 06:00 70 18 115/58 L 100 06/30/21 05:00 73 19 109/64 99 Intake & Output: Intake & Output 06/27/21 06/28/21 06/29/21 06/30/21 23:59 23:59 23:59 23:59 Intake Total 3863.196 5522.631 3847.791 1195.244 Output Total 1220 1765 2455 1035 Balance 2643.196 3757.631 1392.791 160.244 - Objective General Appearance: positive: No acute distress Abdomen: positive: Non-tender, No distention, Other (claus serous ngt thin green incision partially open. clean no erythema or drainage) - Lab Results Fish Bones: 06/30/21 04:50 06/30/21 04:50 Other Labs: Lab Results x24hrs 06/30/21 06/30/21 06/30/21 Range/Units 04:50 04:50 04:50 WBC 8.0 (4.8-10.8) x10^3/uL RBC 3.22 L (4.20-5.40) 10^6/uL Hgb 9.4 L (12.0-16.0) g/dL Hct 29.9 L (37.0-47.0) % MCV 92.9 (81.0-99.0) fL MCH 29.2 (27.0-31.0) pg MCHC 31.4 L (32.0-36.0) g/dL RDW 20.7 H (12.0-15.0) % Plt Count 155 (130-450) 10^3/uL MPV 11.2 H (7.9-10.8) fL Neut # (Auto) 5.8 (1.5-6.6) 10^3/uL Lymph # (Auto) 1.4 L (1.5-3.5) 10^3/uL Pettis # (Auto) 0.4 (0.0-1.0) 10^3/uL Eos # (Auto) 0.2 (0.0-0.7) 10^3/uL Baso # (Auto) 0.0 (0.0-0.1) 10^3/uL Absolute Nucleated RBC 0.02 x10^3/uL Nucleated RBC % 0.3 /100WBC Manual Slide Review Indicated WBC Morphology NORMAL APPEARANCE (NORMAL) Platelet Estimate NORMAL (130-450,000) (NORMAL) Platelet Morphology NORMAL APPEARANCE (NORMAL) RBC Morph Micro Appear 1+ ANISOCYTOSIS (NORMAL) Bld Gas Analysis Time Sample Site ABG pH (7.35-7.45) ABG pCO2 (34-45) mmHg ABG pO2 (80-100) mmHg ABG HCO3 (22.0-26.0) mmol/L ABG Total CO2 (21.0-29.0) MMOL/L ABG O2 Saturation (94-98) % ABG Base Excess (-2.0-3.0) mmol/L Ruperto Test VBG pH 7.394 (7.31-7.41) Ionized Calcium 1.13 L (1.15-1.33) mmol/L Respiration Rate b/min O2 Delivery Device Vent Mode FiO2 Tidal Volume mL PEEP cmH2O Sodium 138 (135-145) mmol/L Potassium 4.3 (3.5-5.0) mmol/L Chloride 109 (101-111) mmol/L Carbon Dioxide 23 (21-32) mmol/L Anion Gap 6.0 (6-13) BUN 28 H (6-20) mg/dL Creatinine 0.8 (0.4-1.0) mg/dL Estimated GFR (MDRD) 69 L (>89) Glucose 124 H (70-100) mg/dL Calcium 7.8 L (8.5-10.3) mg/dL Phosphorus 2.5 (2.5-4.6) mg/dL Magnesium 1.9 (1.7-2.8) mg/dL Total Bilirubin 0.6 (0.2-1.0) mg/dL AST 12 (10-42) IU/L ALT < 10 L (10-60) IU/L Alkaline Phosphatase 74 (42-121) IU/L Total Protein 4.8 L (6.7-8.2) g/dL Albumin 1.8 L (3.2-5.5) g/dL Globulin 3.0 (2.1-4.2) g/dL Albumin/Globulin Ratio 0.6 L (1.0-2.2) Prealbumin 9 L (18-45) mg/dL Triglycerides 75 ( - 149) mg/dL 06/30/21 Range/Units 03:38 WBC (4.8-10.8) x10^3/uL RBC (4.20-5.40) 10^6/uL Hgb (12.0-16.0) g/dL Hct (37.0-47.0) % MCV (81.0-99.0) fL MCH (27.0-31.0) pg MCHC (32.0-36.0) g/dL RDW (12.0-15.0) % Plt Count (130-450) 10^3/uL MPV (7.9-10.8) fL Neut # (Auto) (1.5-6.6) 10^3/uL Lymph # (Auto) (1.5-3.5) 10^3/uL Pettis # (Auto) (0.0-1.0) 10^3/uL Eos # (Auto) (0.0-0.7) 10^3/uL Baso # (Auto) (0.0-0.1) 10^3/uL Absolute Nucleated RBC x10^3/uL Nucleated RBC % /100WBC Manual Slide Review WBC Morphology (NORMAL) Platelet Estimate (NORMAL) Platelet Morphology (NORMAL) RBC Morph Micro Appear (NORMAL) Bld Gas Analysis Time 0344 Sample Site LEFT RADIAL ABG pH 7.45 (7.35-7.45) ABG pCO2 35 (34-45) mmHg ABG pO2 94 (80-100) mmHg ABG HCO3 23.8 (22.0-26.0) mmol/L ABG Total CO2 24.9 (21.0-29.0) MMOL/L ABG O2 Saturation 97 (94-98) % ABG Base Excess 0.0 (-2.0-3.0) mmol/L Ruperto Test POSITIVE VBG pH (7.31-7.41) Ionized Calcium (1.15-1.33) mmol/L Respiration Rate 16 b/min O2 Delivery Device VENTILATOR Vent Mode ASSIST/CONTROL FiO2 30.00 Tidal Volume 400 mL PEEP 5 cmH2O Sodium (135-145) mmol/L Potassium (3.5-5.0) mmol/L Chloride (101-111) mmol/L Carbon Dioxide (21-32) mmol/L Anion Gap (6-13) BUN (6-20) mg/dL Creatinine (0.4-1.0) mg/dL Estimated GFR (MDRD) (>89) Glucose (70-100) mg/dL Calcium (8.5-10.3) mg/dL Phosphorus (2.5-4.6) mg/dL Magnesium (1.7-2.8) mg/dL Total Bilirubin (0.2-1.0) mg/dL AST (10-42) IU/L ALT (10-60) IU/L Alkaline Phosphatase (42-121) IU/L Total Protein (6.7-8.2) g/dL Albumin (3.2-5.5) g/dL Globulin (2.1-4.2) g/dL Albumin/Globulin Ratio (1.0-2.2) Prealbumin (18-45) mg/dL Triglycerides ( - 149) mg/dL Sepsis Event Note (H) - Evaluation Current Stage of Sepsis: Septic shock Possible source of Sepsis: positive: GI tract/intra-abdominal - Sepsis Criteria Sepsis Criteria: WBC count greater than 10% bands, SBP drop more than 40mHg, MAP less than 65 mmHg, SBP less than 90 mmHg, Renal: urine output less than 0.5ml/kg/hr for 2 hours or creatinine gr, Metabolic: lactate > 2 mmol/L Assessment/Plan - Problem List (1) Perforated duodenal ulcer Impression: continue ngt to suction daily dry gauze dressing changes
[2021-06-30] MEDS ORDERED: SODIUM CHLORIDE INHALATION 3 ML NEB ONE (13:32)
[2021-06-30] MEDS: TPN (CLINIMIX E 5/15) 2,000 ML with MULTIVITAMIN 10 ML, TRACE ELEMENTS 1 ML IV SCH ×3 (19:09)
[2021-06-30] MEDS: FAT EMULSION 20% 250 ML IV SCH (19:10)
[2021-07-01] MEDS: metroNIDAZOLE 500 MG/100 ML 500 MG/100 ML BAG IV SCH ×3 (01:04→17:36)
[2021-07-01] MEDS: SODIUM CHLORIDE FLUSH 0.9% 10 ML SYRINGE IVP SCH ×3 (01:04→17:39)
[2021-07-01] MEDS: DEXMEDETOMIDINE 400 MCG in SODIUM CHLORIDE 0.9% 100ML 96 ML IV SCH ×4 (02:34→21:39)
[2021-07-01 06:00] LABS: BASOPHILS % (AUTO) 0.6 %; EOSINOPHILS # (AUTO) 0.2 10^3/uL (0.0-0.7); EOSINOPHILS % (AUTO) 3.4 %; HCT - HEMATOCRIT 29.4 % (37.0-47.0); HGB - HEMOGLOBIN 9.1 g/dL (12.0-16.0); LYMPHOCYTES % (AUTO) 15.8 %; MEAN CORPUSCULAR VOLUME 93.6 fL (81.0-99.0); MEAN PLATELET VOLUME 11.1 fL (7.9-10.8); MONOCYTES # (AUTO) 0.7 10^3/uL (0.0-1.0); MONOCYTES % (AUTO) 11.2 %; NEUTROPHILS # (AUTO) 4.3 10^3/uL (1.5-6.6); NEUTROPHILS % (AUTO) 66.1 %; NRBC ABSOLUTE COUNT (AUTO) 0.02 x10^3/uL; NUCLEATED RED BLOOD CELLS AUTO 0.3 /100WBC; PLT - PLATELET COUNT 156 10^3/uL (130-450); RED BLOOD COUNT 3.14 10^6/uL (4.20-5.40); RED CELL DISTRIBUTION WIDTH 20.4 % (12.0-15.0); WHITE BLOOD COUNT 6.5 x10^3/uL (4.8-10.8)
[2021-07-01 06:06] LABS: SLIDE REVIEW? Indicated
[2021-07-01 06:20] LABS: PLATELET ESTIMATE, MANUAL NORMAL (130-450,000) (NORMAL); PLATELET MORPHOLOGY NORMAL APPEARANCE (NORMAL); RBC MORPHOLOGY (MULTIPLE) 1+ ANISOCYTOSIS (NORMAL); WBC MORPHOLOGY (MULTIPLE) NORMAL APPEARANCE (NORMAL)
[2021-07-01] MEDS: LEVOTHYROXINE 100 MCG VIAL IVP SCH (06:41)
[2021-07-01] MEDS: PANTOPRAZOLE 40 MG VIAL IVP SCH (06:41)
[2021-07-01 07:16] LABS: ALBUMIN 1.8 g/dL (3.2-5.5); ALBUMIN/GLOBULIN RATIO 0.6 (1.0-2.2); ALKALINE PHOSPHATASE 66 IU/L (42-121); ALT ALANINE AMINOTRANSFERASE < 10 IU/L (10-60); AST ASPARTATE AMINOTRANSFERASE 12 IU/L (10-42); BILIRUBIN,TOTAL 0.4 mg/dL (0.2-1.0); BUN - BLOOD UREA NITROGEN 27 mg/dL (6-20); CALCIUM 7.9 mg/dL (8.5-10.3); CARBON DIOXIDE - CO2 21 mmol/L (21-32); CHLORIDE 106 mmol/L (101-111); CREATININE 0.7 mg/dL (0.4-1.0); GFR - MDRD 81 (>89); GLUCOSE 150 mg/dL (70-100); POTASSIUM 4.2 mmol/L (3.5-5.0); SODIUM 135 mmol/L (135-145); TOTAL PROTEIN 4.9 g/dL (6.7-8.2)
[2021-07-01] MEDS: MIDAZOLAM 2 MG/2 ML VIAL IVP PRN ×2 (08:08→17:10)
[2021-07-01] MEDS: ENOXAPARIN 40 MG/0.4 ML SYRINGE SUBQ SCH (08:27)
[2021-07-01] MEDS: CHLORHEXIDINE GLUCONATE 15 ML UDC PO SCH ×2 (08:27→20:36)
[2021-07-01] MEDS: FLUCONAZOLE 200 MG/100 ML 100 ML IV SCH (08:28)
[2021-07-01] MEDS: HYDROmorphone 1 MG/ML CARPUJECT IVP PRN ×3 (09:22→15:33)
[2021-07-01] MEDS: CEFEPIME 2 GM in SODIUM CHLORIDE 0.9% MINIBAG 100 ML IV SCH ×2 (10:21→20:36)
--- NOTE | 2021-07-01 13:48 | PROVIDER PROGRESS NOTE ---
Assessment/Plan - Problem List (1) Septic shock Assessment/Plan: Patient initially with septic shock secondary to perforated duodenal ulcer. Peritoneal fluid culture is negative Urine culture shows no growth Chest x-ray done today shows residual bilateral airspace opacities, Unclear if this represents infection Currently hypotensive, requires Levophed for pressure support Intubated Since postop Suspect shock is likely multifactorial in the setting of perforated ulcer, as well as chronic anasarca with fluid redistribution and depletion of intravascular volume Is receiving maintenance fluids for pressure support which Further worsening the anasarca but also necessary for blood pressure support. Albumin is trending down as low as 1.8 Per I's and O's, is maintaining fluid positive status daily with diminished urinary output Will start a trial of IV albumin, and if this is effective in improving blood pressure can start weaning off IV fluids Consider chasing albumin with Lasix (2) Anasarca Assessment/Plan: As above, severe anasarca with very low albumin Unclear how much of this is baseline as patient apparently has had this prior to admission but likely much worse now No clear single organ system to explain this, as there is no evidence of liver cirrhosis, diastolic dysfunction does not seem to be enough to explain this, and likely this is at least some a consequence of aggressive IV fluid resuscitation in the setting of septic shock As above, trial of albumin IV (3) On mechanically assisted ventilation Assessment/Plan: Continues to be intubatedWith chest x-ray today showingImprovement in the aeration of the upper lung zones with residual bilateral opacities which may represent atelectasis versus infection Continue to wean off the vent as able Appreciate respiratory therapy's diligent efforts on this patient Continue upper airway suctioning as needed (4) Perforated duodenal ulcer Assessment/Plan: Surgery is primary on this patient and managing the perforated viscus Currently showing no evidence off bleeding, or expansion of perforation (5) Hypothyroidism Qualifiers: Hypothyroidism type: acquired Qualified Code(s): E03.9 - Hypothyroidism, unspecified Assessment/Plan: Not taking p.o., so therefore not taking levothyroxine Check TSH and Free T4 Consider IV levothyroxine if not extubated in the next couple of days (6) Schizophrenia Qualifiers: Schizophrenia type: schizophreniform disorder Qualified Code(s): F20.81 - Schizophreniform disorder Assessment/Plan: Intubated Resume meds when able - Current Meds Current Meds: Current Medications Generic Name Dose Route Start Last Admin Trade Name Freq PRN Reason Stop Dose Admin Chlorhexidine Gluconate 15 ml 06/27/21 21:00 07/01/21 08:27 Chlorhexidine Gluconate 15 Ml Udc PO 15 ml BID JULIETA Administration Enoxaparin Sodium 40 mg 06/28/21 09:00 07/01/21 08:27 Enoxaparin 40 Mg/0.4 Ml Syringe SUBQ 40 mg DAILY JULIETA Administration Glycopyrrolate 0.2 mg 06/28/21 21:17 06/29/21 09:46 Glycopyrrolate 1 Mg/5 Ml Vial SUBQ 0.2 mg Q6H PRN Administration Excessive Secretions Hydromorphone HCl 1 mg 06/27/21 10:08 07/01/21 09:38 Hydromorphone 1 Mg/Ml Carpuject IVP 1 mg Q2H PRN Administration PAIN Fluconazole 100 mls @ 100 mls/hr 06/27/21 09:00 07/01/21 09:30 Diflucan 200 Mg/100 Ml IV Infused DAILY JULIETA Infusion Norepinephrine Bitartrate 8 mg 250 mls @ 15 mls/hr 06/26/21 23:00 07/01/21 12:15 / Dextrose IV 4 mcg/min .[id number] JULIETA 7.5 mls/hr Titration Protocol 8 MCG/MIN Sodium Chloride 500 mls @ 20 mls/hr 06/26/21 23:03 06/30/21 19:27 Normal Saline 0.9% IV Infused Q24H PRN Infusion TKO RATE Dexmedetomidine HCl 400 mcg/ 100 mls @ 8.3 mls/hr 06/27/21 18:00 07/01/21 11:44 Sodium Chloride IV 0.9 mcg/kg/hr .Q12H3M JULIETA 18.675 mls/hr Titration Protocol 0.4 MCG/KG/HR Multivitamins 10 ml/ TRACE 2,011 mls @ 75 mls/hr 06/27/21 19:00 07/01/21 12:14 ELEMENTS 1 ml/ Amino Ac/ IV 75 mls/hr Electrol/Dextrose/Calcium Q24H JULIETA Infusion Protocol Fat Emulsion Intravenous 250 mls @ 21 mls/hr 06/27/21 19:00 07/01/21 07:12 Intralipid 20% IV Infused Q24H JULIETA Infusion Cefepime HCl 2 gm/ Sodium 100 mls @ 200 mls/hr 06/27/21 18:00 07/01/21 11:45 Chloride IV Infused BID JULIETA Infusion Acetaminophen 100 mls @ 400 mls/hr 06/28/21 10:21 06/28/21 23:41 Ofirmev IV Infused Q6H PRN Infusion pain Metronidazole 500 mg in 100 mls @ 100 mls/hr 06/29/21 09:00 07/01/21 10:22 Flagyl 500 Mg/100 Ml IV Infused Q8H JULIETA Infusion Levothyroxine Sodium 130 mcg 07/01/21 07:00 07/01/21 06:41 Levothyroxine 100 Mcg Vial IVP 130 mcg MoTh@0700 JULIETA Administration Lorazepam 0.5 mg 06/26/21 20:54 06/28/21 23:16 Lorazepam 2 Mg/Ml Vial IVP 0.5 mg Q1H PRN Administration Anxiety Midazolam HCl 2 mg 06/28/21 00:24 07/01/21 08:08 Midazolam 2 Mg/2 Ml Vial IVP 2 mg Q2H PRN Administration Agitation Pantoprazole Sodium 40 mg 06/27/21 07:00 07/01/21 06:41 Pantoprazole 40 Mg Vial IVP 40 mg QDAC JULIETA Administration Sodium Chloride 10 ml 06/27/21 01:00 07/01/21 08:30 Sodium Chloride Flush 0.9% 10 Ml Syringe IVP 10 ml 0100,0900,1700 JULIETA Administration Sodium Chloride 10 ml 06/26/21 20:54 06/27/21 06:16 Sodium Chloride Flush 0.9% 10 Ml Syringe IVP 10 ml PRN PRN Administration NEEDED PER PROVIDER ORDERS Sodium Chloride 20 ml 06/26/21 23:03 06/27/21 04:16 Sodium Chloride Flush 0.9% 10 Ml Syringe IVP 20 ml PRN PRN Administration After Blood Draw - Lab Result Lab results reviewed: Yes Fish Bone Diagrams: 07/01/21 05:34 07/01/21 06:50 - Diagnostic Imaging Results Diagnostic Imaging Results: Final report reviewed - Additional Planning Condition/Complexity: Critical My Orders: My Active Orders 07/01/21 13:32 Chest 1 View X-Ray [XR] Routine Time Spent: 31-60 minutes Subjective - Subjective Patient Reports: Other (Patient is intubated, unable to provide subjective report) Objective Vital Signs: Vital Signs - 24 hr 06/30/21 06/30/21 06/30/21 14:00 14:57 15:00 Temperature Heart Rate 75 Heart Rate [ 71 71 Monitoring electrodes] Respiratory 19 23 Rate Blood Pressure 108/53 L 99/55 L [Left Brachial artery] O2 Saturation 100 100 06/30/21 06/30/21 06/30/21 15:30 16:00 16:17 Temperature Heart Rate Heart Rate [ 74 70 70 Monitoring electrodes] Respiratory 18 18 18 Rate Blood Pressure 96/45 L 84/47 L 85/47 L [Left Brachial artery] O2 Saturation 99 99 99 06/30/21 06/30/21 06/30/21 16:32 17:00 17:21 Temperature Heart Rate 70 Heart Rate [ 70 71 Monitoring electrodes] Respiratory 18 18 Rate Blood Pressure 89/51 L 97/53 L [Left Brachial artery] O2 Saturation 99 100 06/30/21 06/30/21 06/30/21 17:28 17:33 18:00 Temperature Heart Rate Heart Rate [ 70 72 Monitoring electrodes] Respiratory 18 19 Rate Blood Pressure 92/50 L 87/45 L 89/48 L [Left Brachial artery] O2 Saturation 100 99 06/30/21 06/30/21 06/30/21 18:19 19:00 20:00 Temperature 37.0 C Heart Rate Heart Rate [ 73 73 71 Monitoring electrodes] Respiratory 17 19 20 Rate Blood Pressure 84/47 L 92/50 L 92/48 L [Left Brachial artery] O2 Saturation 100 100 100 06/30/21 06/30/21 06/30/21 20:04 21:00 22:00 Temperature Heart Rate 70 Heart Rate [ 70 73 Monitoring electrodes] Respiratory 20 23 Rate Blood Pressure 91/50 L 116/56 L [Left Brachial artery] O2 Saturation 100 99 06/30/21 06/30/21 07/01/21 22:31 23:00 00:00 Temperature 37.0 C Heart Rate 72 Heart Rate [ 76 74 Monitoring electrodes] Respiratory 20 20 Rate Blood Pressure 98/51 L 114/54 L [Left Brachial artery] O2 Saturation 100 99 07/01/21 07/01/21 07/01/21 00:09 01:00 02:00 Temperature Heart Rate 79 Heart Rate [ 78 71 Monitoring electrodes] Respiratory 22 16 Rate Blood Pressure 106/56 L 93/48 L [Left Brachial artery] O2 Saturation 99 100 07/01/21 07/01/21 07/01/21 02:22 03:00 04:00 Temperature 36.9 C Heart Rate 79 Heart Rate [ 76 72 Monitoring electrodes] Respiratory 19 22 Rate Blood Pressure 108/51 L 100/46 L [Left Brachial artery] O2 Saturation 99 100 07/01/21 07/01/21 07/01/21 05:00 06:00 07:00 Temperature Heart Rate Heart Rate [ 74 72 81 Monitoring electrodes] Respiratory 21 18 21 Rate Blood Pressure 100/52 L 100/54 L 118/56 L [Left Brachial artery] O2 Saturation 99 93 100 07/01/21 07/01/21 07/01/21 07:01 08:00 09:00 Temperature 37.1 C Heart Rate 71 Heart Rate [ 74 70 Monitoring electrodes] Respiratory 21 22 Rate Blood Pressure 111/66 98/57 L [Left Brachial artery] O2 Saturation 100 100 07/01/21 07/01/21 07/01/21 09:39 10:00 11:00 Temperature Heart Rate 70 Heart Rate [ 70 70 Monitoring electrodes] Respiratory 18 18 Rate Blood Pressure 102/59 L 94/58 L [Left Brachial artery] O2 Saturation 100 100 07/01/21 07/01/21 07/01/21 12:00 12:37 13:00 Temperature 36.9 C Heart Rate 70 Heart Rate [ 70 70 Monitoring electrodes] Respiratory 18 10 L Rate Blood Pressure 95/57 L 89/54 L [Left Brachial artery] O2 Saturation 100 100 Oxygen O2 Source Mechanical ventilator I&O (Last 24 Hrs): Intake and Output Totals x24h 06/29/21 06/30/21 07/01/21 23:59 23:59 23:59 Intake Total 3847.791 3871.150 2413.278 Output Total 2455 1744 975 Balance 7613.604 4569.150 1438.278 General: Other (Chemically sedated and intubated, occasionally showing signs of agitation in response but without following commands, Generalized anasarca) HEENT: Atraumatic Neck: No JVD, No thyromegaly Neuro: Other (Chemically sedated, no gross neurological deficits noted) Cardiovascular: Regular rate, Normal S1 (Bilateral upper airway secretions, left side is slightly more diminished than the right, Few, fine crackles), Normal S2 Respiratory: Chest non-tender, No respiratory distress, Breath sounds nml Abdomen: Normal bowel sounds Extremities: Other (Severe bilateral lower extremity edema, with moderate to severe bilateral upper extremity edema) Skin: No rashes (Photograph of sacral decubitus ulcer is noted and reviewed) - Results Results: Laboratory Results WBC 6.5 x10^3/uL (4.8-10.8) 07/01/21 05:34 RBC 3.14 10^6/uL (4.20-5.40) L 07/01/21 05:34 Hgb 9.1 g/dL (12.0-16.0) L 07/01/21 05:34 Hct 29.4 % (37.0-47.0) L 07/01/21 05:34 MCV 93.6 fL (81.0-99.0) 07/01/21 05:34 MCH 29.0 pg (27.0-31.0) 07/01/21 05:34 MCHC 31.0 g/dL (32.0-36.0) L 07/01/21 05:34 RDW 20.4 % (12.0-15.0) H 07/01/21 05:34 Plt Count 156 10^3/uL (130-450) 07/01/21 05:34 MPV 11.1 fL (7.9-10.8) H 07/01/21 05:34 Neut # (Auto) 4.3 10^3/uL (1.5-6.6) 07/01/21 05:34 Lymph # (Auto) 1.0 10^3/uL (1.5-3.5) L 07/01/21 05:34 [place] # (Auto) 0.7 10^3/uL (0.0-1.0) 07/01/21 05:34 Eos # (Auto) 0.2 10^3/uL (0.0-0.7) 07/01/21 05:34 Baso # (Auto) 0.0 10^3/uL (0.0-0.1) 07/01/21 05:34 Absolute Nucleated RBC 0.02 x10^3/uL 07/01/21 05:34 Total Counted 100 06/27/21 04:20 Band Neuts % (Manual) 26 % (0-10) H 06/27/21 04:20 Abnorm Lymph % (Manual) 0 % 06/27/21 04:20 Nucleated RBC % 0.3 /100WBC 07/01/21 05:34 Neutrophils # (Manual) 11.3 10^3/uL (1.5-6.6) H 06/27/21 04:20 Lymphocytes # (Manual) 1.1 10^3/uL (1.5-3.5) L 06/27/21 04:20 Monocytes # (Manual) 0.1 10^3/uL (0.0-1.0) 06/27/21 04:20 Eosinophils # (Manual) 0.0 10^3/uL (0-0.7) 06/27/21 04:20 Basophils # (Manual) 0.0 10^3/uL (0-0.1) 06/27/21 04:20 Differential Comment MANUAL DIFFERENTIAL 06/27/21 04:20 Manual Slide Review Indicated 07/01/21 05:34 WBC Morphology NORMAL APPEARANCE (NORMAL) 07/01/21 05:34 Platelet Estimate NORMAL (130-450,000) (NORMAL) 07/01/21 05:34 Platelet Morphology NORMAL APPEARANCE (NORMAL) 07/01/21 05:34 RBC Morph Micro Appear 1+ ANISOCYTOSIS (NORMAL) 07/01/21 05:34 Bld Gas Analysis Time 0344 06/30/21 03:38 Sample Site LEFT RADIAL 06/30/21 03:38 ABG pH 7.45 (7.35-7.45) 06/30/21 03:38 ABG pCO2 35 mmHg (34-45) 06/30/21 03:38 ABG pO2 94 mmHg (80-100) 06/30/21 03:38 ABG HCO3 23.8 mmol/L (22.0-26.0) 06/30/21 03:38 ABG Total CO2 24.9 MMOL/L (21.0-29.0) 06/30/21 03:38 ABG O2 Saturation 97 % (94-98) 06/30/21 03:38 ABG Base Excess 0.0 mmol/L (-2.0-3.0) 06/30/21 03:38 Ruperto Test POSITIVE 06/30/21 03:38 VBG pH 7.394 (7.31-7.41) 06/30/21 04:50 Ionized Calcium 1.13 mmol/L (1.15-1.33) L 06/30/21 04:50 Respiration Rate 16 b/min 06/30/21 03:38 O2 Delivery Device VENTILATOR 06/30/21 03:38 Vent Mode ASSIST/CONTROL 06/30/21 03:38 FiO2 30.00 06/30/21 03:38 Tidal Volume 400 mL 06/30/21 03:38 PEEP 5 cmH2O 06/30/21 03:38 Pressure Support Vent 10 cmH2O 06/27/21 05:43 IPAP Not Reportable 06/27/21 05:43 Sodium 135 mmol/L (135-145) 07/01/21 06:50 Potassium 4.2 mmol/L (3.5-5.0) 07/01/21 06:50 Chloride 106 mmol/L (101-111) 07/01/21 06:50 Carbon Dioxide 21 mmol/L (21-32) 07/01/21 06:50 Anion Gap 8.0 (6-13) 07/01/21 06:50 BUN 27 mg/dL (6-20) H 07/01/21 06:50 Creatinine 0.7 mg/dL (0.4-1.0) 07/01/21 06:50 Estimated GFR (MDRD) 81 (>89) L 07/01/21 06:50 Glucose 150 mg/dL (70-100) H 07/01/21 06:50 Lactic Acid 1.6 mmol/L (0.5-2.2) 06/27/21 21:01 Calcium 7.9 mg/dL (8.5-10.3) L 07/01/21 06:50 Phosphorus 2.5 mg/dL (2.5-4.6) 06/30/21 04:50 Magnesium 1.9 mg/dL (1.7-2.8) 06/30/21 04:50 Total Bilirubin 0.4 mg/dL (0.2-1.0) 07/01/21 06:50 AST 12 IU/L (10-42) 07/01/21 06:50 ALT < 10 IU/L (10-60) L 07/01/21 06:50 Alkaline Phosphatase 66 IU/L (42-121) 07/01/21 06:50 Troponin I High Sens 99.6 ng/L (2.3-14.8) H* 06/27/21 08:08 Total Protein 4.9 g/dL (6.7-8.2) L 07/01/21 06:50 Albumin 1.8 g/dL (3.2-5.5) L 07/01/21 06:50 Globulin 3.1 g/dL (2.1-4.2) 07/01/21 06:50 Albumin/Globulin Ratio 0.6 (1.0-2.2) L 07/01/21 06:50 Prealbumin 9 mg/dL (18-45) L 06/30/21 04:50 Triglycerides 75 mg/dL (-149) 06/30/21 04:50 Lipase 42 U/L (22-51) 06/26/21 14:26 Urine Color YELLOW 06/26/21 22:51 Urine Clarity CLEAR (CLEAR) 06/26/21 22:51 Urine pH 5.0 PH (5.0-7.5) 06/26/21 22:51 Ur Specific [place] 1.015 (1.002-1.030) 06/26/21 22:51 Urine Protein NEGATIVE mg/dL (NEGATIVE) 06/26/21 22:51 Urine Glucose (UA) NEGATIVE mg/dL (NEGATIVE) 06/26/21 22:51 Urine Ketones NEGATIVE mg/dL (NEGATIVE) 06/26/21 22:51 Urine Occult Blood NEGATIVE (NEGATIVE) 06/26/21 22:51 Urine Nitrite NEGATIVE (NEGATIVE) 06/26/21 22:51 Urine Bilirubin NEGATIVE (NEGATIVE) 06/26/21 22:51 Urine Urobilinogen 0.2 (NORMAL) E.U./dL (NORMAL) 06/26/21 22:51 Ur Leukocyte Esterase TRACE (NEGATIVE) H 06/26/21 22:51 Urine RBC 0-5 /HPF (0-5) 06/26/21 22:51 Urine WBC 4-5 /HPF (0-5) 06/26/21 22:51 Ur Squamous Epith Cells FEW Squamous (<= Few) 06/26/21 22:51 Urine Bacteria Few /HPF (None Seen) 06/26/21 22:51 Urine Casts 3-5 Hyaline Casts /LPF 06/26/21 22:51 Ur Microscopic Review INDICATED 06/26/21 22:51 Urine Culture Comments INDICATED 06/26/21 22:51 Nasal Adenovirus (PCR) NOT DETECTED 06/27/21 01:23 Nasal B. parapertussis DNA (PCR) NOT DETECTED 06/27/21 01:23 Nasal Coronavir 229E PCR NOT DETECTED 06/27/21 01:23 Nasal Coronavir HKU1 PCR NOT DETECTED 06/27/21 01:23 Nasal Coronavir NL63 PCR NOT DETECTED 06/27/21 01:23 Nasal Coronavir OC43 PCR NOT DETECTED 06/27/21 01:23 Nasal Enterovir/Rhinovir PCR NOT DETECTED 06/27/21 01:23 Nasal Influenza B PCR NOT DETECTED 06/27/21 01:23 Nasal Influenza A PCR NOT DETECTED 06/27/21 01:23 Nasal Parainfluen 1 PCR NOT DETECTED 06/27/21 01:23 Nasal Parainfluen 2 PCR NOT DETECTED 06/27/21 01:23 Nasal Parainfluen 3 PCR NOT DETECTED 06/27/21 01:23 Nasal Parainfluen 4 PCR NOT DETECTED 06/27/21 01:23 Nasal RSV (PCR) NOT DETECTED 06/27/21 01:23 Nasal Screen MRSA (PCR) NEGATIVE (NEGATIVE) 06/26/21 21:55 Nasal B.pertussis DNA PCR NOT DETECTED 06/27/21 01:23 Nasal C.pneumoniae (PCR) NOT DETECTED 06/27/21 01:23 Mk Human Metapneumo PCR NOT DETECTED 06/27/21 01:23 Nasal M.pneumoniae (PCR) NOT DETECTED 06/27/21 01:23 Nasal SARS-CoV-2 (PCR) DETECTED A 06/27/21 01:23 - Procedures Procedures: Procedures RESPIRATORY VENTILATION, LESS THAN 24 CONSECUTIVE HOURS (01/11/20) Sepsis Event Note (H) - Evaluation Current Stage of Sepsis: Septic shock Possible source of Sepsis: positive: GI tract/intra-abdominal - Sepsis Criteria Sepsis Criteria: WBC count greater than 10% bands, SBP drop more than 40mHg, MAP less than 65 mmHg, SBP less than 90 mmHg, Renal: urine output less than 0.5ml/kg/hr for 2 hours or creatinine gr, Metabolic: lactate > 2 mmol/L ABX Reporting Has patient been on IV antibiotics over the past 48 hours?: Yes Current Medications - Current Medications Current Medications: Current Medications Generic Name Dose Route Start Last Admin Trade Name Freq PRN Reason Stop Dose Admin Chlorhexidine Gluconate 15 ml 06/27/21 21:00 07/01/21 08:27 Chlorhexidine Gluconate 15 Ml Udc PO 15 ml BID JULIETA Administration Enoxaparin Sodium 40 mg 06/28/21 09:00 07/01/21 08:27 Enoxaparin 40 Mg/0.4 Ml Syringe SUBQ 40 mg DAILY JULIETA Administration Glycopyrrolate 0.2 mg 06/28/21 21:17 06/29/21 09:46 Glycopyrrolate 1 Mg/5 Ml Vial SUBQ 0.2 mg Q6H PRN Administration Excessive Secretions Hydromorphone HCl 1 mg 06/27/21 10:08 07/01/21 09:38 Hydromorphone 1 Mg/Ml Carpuject IVP 1 mg Q2H PRN Administration PAIN Fluconazole 100 mls @ 100 mls/hr 06/27/21 09:00 07/01/21 09:30 Diflucan 200 Mg/100 Ml IV Infused DAILY JULIETA Infusion Norepinephrine Bitartrate 8 mg 250 mls @ 15 mls/hr 06/26/21 23:00 07/01/21 12:15 / Dextrose IV 4 mcg/min .[id number] JULIETA 7.5 mls/hr Titration Protocol 8 MCG/MIN Sodium Chloride 500 mls @ 20 mls/hr 06/26/21 23:03 06/30/21 19:27 Normal Saline 0.9% IV Infused Q24H PRN Infusion TKO RATE Dexmedetomidine HCl 400 mcg/ 100 mls @ 8.3 mls/hr 06/27/21 18:00 07/01/21 11:44 Sodium Chloride IV 0.9 mcg/kg/hr .Q12H3M JULIETA 18.675 mls/hr Titration Protocol 0.4 MCG/KG/HR Multivitamins 10 ml/ TRACE 2,011 mls @ 75 mls/hr 06/27/21 19:00 07/01/21 12:14 ELEMENTS 1 ml/ Amino Ac/ IV 75 mls/hr Electrol/Dextrose/Calcium Q24H JULIETA Infusion Protocol Fat Emulsion Intravenous 250 mls @ 21 mls/hr 06/27/21 19:00 07/01/21 07:12 Intralipid 20% IV Infused Q24H JULIETA Infusion Cefepime HCl 2 gm/ Sodium 100 mls @ 200 mls/hr 06/27/21 18:00 07/01/21 11:45 Chloride IV Infused BID JULIETA Infusion Acetaminophen 100 mls @ 400 mls/hr 06/28/21 10:21 06/28/21 23:41 Ofirmev IV Infused Q6H PRN Infusion pain Metronidazole 500 mg in 100 mls @ 100 mls/hr 06/29/21 09:00 07/01/21 10:22 Flagyl 500 Mg/100 Ml IV Infused Q8H JULIETA Infusion Levothyroxine Sodium 130 mcg 07/01/21 07:00 07/01/21 06:41 Levothyroxine 100 Mcg Vial IVP 130 mcg MoTh@0700 JULIETA Administration Lorazepam 0.5 mg 06/26/21 20:54 06/28/21 23:16 Lorazepam 2 Mg/Ml Vial IVP 0.5 mg Q1H PRN Administration Anxiety Midazolam HCl 2 mg 06/28/21 00:24 07/01/21 08:08 Midazolam 2 Mg/2 Ml Vial IVP 2 mg Q2H PRN Administration Agitation Pantoprazole Sodium 40 mg 06/27/21 07:00 07/01/21 06:41 Pantoprazole 40 Mg Vial IVP 40 mg QDAC JULIETA Administration Sodium Chloride 10 ml 06/27/21 01:00 07/01/21 08:30 Sodium Chloride Flush 0.9% 10 Ml Syringe IVP 10 ml 0100,0900,1700 JULIETA Administration Sodium Chloride 10 ml 06/26/21 20:54 06/27/21 06:16 Sodium Chloride Flush 0.9% 10 Ml Syringe IVP 10 ml PRN PRN Administration NEEDED PER PROVIDER ORDERS Sodium Chloride 20 ml 06/26/21 23:03 06/27/21 04:16 Sodium Chloride Flush 0.9% 10 Ml Syringe IVP 20 ml PRN PRN Administration After Blood Draw
[2021-07-01] MEDS: ALBUMIN 25% 12.5 GM/50 ML VIAL IV SCH ×2 (15:15→21:31)
--- NOTE | 2021-07-01 15:48 | PROVIDER PROGRESS NOTE ---
Subjective - Subjective Subjective: on vent. unresponsive. Objective - Vital Signs/Intake & Output Reviewed Vital Signs: Yes Vital Signs: Vital Signs x48h Temp Pulse Pulse Resp BP Pulse Ox 07/01/21 15:21 84/51 L 07/01/21 15:00 70 19 101/89 H 100 07/01/21 14:00 70 18 91/51 L 100 07/01/21 13:00 70 10 L 89/54 L 100 07/01/21 12:37 70 07/01/21 12:00 36.9 C 70 18 95/57 L 100 07/01/21 11:00 70 18 94/58 L 100 07/01/21 10:00 70 18 102/59 L 100 07/01/21 09:39 70 07/01/21 09:00 70 22 98/57 L 100 07/01/21 08:00 37.1 C 74 21 111/66 100 Intake & Output: Intake & Output 06/28/21 06/29/21 06/30/21 07/01/21 23:59 23:59 23:59 23:59 Intake Total 5522.631 3847.791 3871.150 2507.438 Output Total 1765 2455 1744 1073 Balance 3757.631 0111.278 9349.150 1434.438 - Objective General Appearance: positive: No acute distress Abdomen: positive: Non-tender, No distention, Other (no erythema or drainage. claus thin serosanguinous ng thin green/ improved from yesterday) - Lab Results Fish Bones: 07/01/21 05:34 07/01/21 06:50 Other Labs: Lab Results x24hrs 07/01/21 07/01/21 Range/Units 06:50 05:34 WBC 6.5 (4.8-10.8) x10^3/uL RBC 3.14 L (4.20-5.40) 10^6/uL Hgb 9.1 L (12.0-16.0) g/dL Hct 29.4 L (37.0-47.0) % MCV 93.6 (81.0-99.0) fL MCH 29.0 (27.0-31.0) pg MCHC 31.0 L (32.0-36.0) g/dL RDW 20.4 H (12.0-15.0) % Plt Count 156 (130-450) 10^3/uL MPV 11.1 H (7.9-10.8) fL Neut # (Auto) 4.3 (1.5-6.6) 10^3/uL Lymph # (Auto) 1.0 L (1.5-3.5) 10^3/uL Vermilion # (Auto) 0.7 (0.0-1.0) 10^3/uL Eos # (Auto) 0.2 (0.0-0.7) 10^3/uL Baso # (Auto) 0.0 (0.0-0.1) 10^3/uL Absolute Nucleated RBC 0.02 x10^3/uL Nucleated RBC % 0.3 /100WBC Manual Slide Review Indicated WBC Morphology NORMAL APPEARANCE (NORMAL) Platelet Estimate NORMAL (130-450,000) (NORMAL) Platelet Morphology NORMAL APPEARANCE (NORMAL) RBC Morph Micro Appear 1+ ANISOCYTOSIS (NORMAL) Sodium 135 (135-145) mmol/L Potassium 4.2 (3.5-5.0) mmol/L Chloride 106 (101-111) mmol/L Carbon Dioxide 21 (21-32) mmol/L Anion Gap 8.0 (6-13) BUN 27 H (6-20) mg/dL Creatinine 0.7 (0.4-1.0) mg/dL Estimated GFR (MDRD) 81 L (>89) Glucose 150 H (70-100) mg/dL Calcium 7.9 L (8.5-10.3) mg/dL Total Bilirubin 0.4 (0.2-1.0) mg/dL AST 12 (10-42) IU/L ALT < 10 L (10-60) IU/L Alkaline Phosphatase 66 (42-121) IU/L Total Protein 4.9 L (6.7-8.2) g/dL Albumin 1.8 L (3.2-5.5) g/dL Globulin 3.1 (2.1-4.2) g/dL Albumin/Globulin Ratio 0.6 L (1.0-2.2) Sepsis Event Note (H) - Evaluation Current Stage of Sepsis: Septic shock Possible source of Sepsis: positive: GI tract/intra-abdominal - Sepsis Criteria Sepsis Criteria: WBC count greater than 10% bands, SBP drop more than 40mHg, MAP less than 65 mmHg, SBP less than 90 mmHg, Renal: urine output less than 0 .5ml/kg/hr for 2 hours or creatinine gr, Metabolic: lactate > 2 mmol/L Assessment/Plan - Problem List (1) Perforated duodenal ulcer Impression: ileus still present. benign abdomen. recommend continue ngt to suction
[2021-07-01] MEDS: FAT EMULSION 20% 250 ML IV SCH (19:11)
[2021-07-01] MEDS: TPN (CLINIMIX E 5/15) 2,000 ML with MULTIVITAMIN 10 ML, TRACE ELEMENTS 1 ML IV SCH ×3 (19:11)
[2021-07-02] MEDS: metroNIDAZOLE 500 MG/100 ML 500 MG/100 ML BAG IV SCH ×3 (01:20→18:23)
[2021-07-02] MEDS: SODIUM CHLORIDE FLUSH 0.9% 10 ML SYRINGE IVP SCH ×3 (01:21→18:25)
[2021-07-02] MEDS: HYDROmorphone 1 MG/ML CARPUJECT IVP PRN ×3 (02:25→22:27)
[2021-07-02] MEDS: DEXMEDETOMIDINE 400 MCG in SODIUM CHLORIDE 0.9% 100ML 96 ML IV SCH ×4 (03:45→22:17)
[2021-07-02 05:06] LABS: CALCIUM, IONIZED 1.16 mmol/L (1.15-1.33); VBG PH 7.311 (7.31-7.41)
[2021-07-02 05:22] LABS: ALBUMIN 2.1 g/dL (3.2-5.5); ALBUMIN/GLOBULIN RATIO 0.7 (1.0-2.2); ALKALINE PHOSPHATASE 65 IU/L (42-121); ALT ALANINE AMINOTRANSFERASE < 10 IU/L (10-60); AST ASPARTATE AMINOTRANSFERASE 12 IU/L (10-42); BILIRUBIN,TOTAL 0.4 mg/dL (0.2-1.0); BUN - BLOOD UREA NITROGEN 26 mg/dL (6-20); CARBON DIOXIDE - CO2 22 mmol/L (21-32); CHLORIDE 106 mmol/L (101-111); CREATININE 0.7 mg/dL (0.4-1.0); CRP - C-REACTIVE PROTEIN 9.2 mg/dL (0-1.0); GFR - MDRD 81 (>89); GLUCOSE 152 mg/dL (70-100); MAGNESIUM 1.9 mg/dL (1.7-2.8); PHOSPHORUS 2.4 mg/dL (2.5-4.6); POTASSIUM 4.4 mmol/L (3.5-5.0); PREALBUMIN 11 mg/dL (18-45); SODIUM 135 mmol/L (135-145); TOTAL PROTEIN 5.1 g/dL (6.7-8.2); TRIGLYCERIDES 79 mg/dL
[2021-07-02 05:35] LABS: THYROID STIMULATING HORMONE 3.29 uIU/mL (0.34-5.60)
[2021-07-02 05:37] LABS: FREE T4 (FREE THYROXINE) 0.97 ng/dL (0.58-1.64)
[2021-07-02] MEDS: ALBUMIN 25% 12.5 GM/50 ML VIAL IV SCH ×3 (05:53→21:42)
[2021-07-02] MEDS: PANTOPRAZOLE 40 MG VIAL IVP SCH (06:39)
[2021-07-02] MEDS: CEFEPIME 2 GM in SODIUM CHLORIDE 0.9% MINIBAG 100 ML IV SCH ×2 (08:07→20:56)
[2021-07-02] MEDS: ENOXAPARIN 40 MG/0.4 ML SYRINGE SUBQ SCH (08:08)
[2021-07-02] MEDS: FLUCONAZOLE 200 MG/100 ML 100 ML IV SCH (08:16)
[2021-07-02] MEDS: CHLORHEXIDINE GLUCONATE 15 ML UDC PO SCH ×2 (08:33→20:57)
--- NOTE | 2021-07-02 09:08 | XRAY Report ---
PROCEDURE: Chest 1 View X-Ray INDICATIONS: Intubated, Evaluate for changes, pulm congestion? TECHNIQUE: One view of the chest was acquired. COMPARISON: June 26, 2021 FINDINGS: Surgical changes and devices: Redemonstrated support devices, grossly unchanged. Lungs and pleura: Improved aeration of the upper lung zones. Residual, right greater than the left, m id to lower lung zone densities. Mediastinum: The cardiomediastinal silhouette is upper limits of normal, which may be exaggerated by technique. Bones and chest wall: No suspicious bony lesions. Overlying soft tissues appear unremarkable. IMPRESSION: 1. Improved aeration of the upper lung zones with residual bilateral airspace opacities as detailed a akin., Reviewed by: Bonifacio Worley MD on 07/01/2021 10:49 AM PDT Approved by: Bonifacio Worley MD on 07/01/2021 10:49 AM PDT Station ID: [id number]
[2021-07-02] MEDS: MIDAZOLAM 2 MG/2 ML VIAL IVP PRN (15:06)
--- NOTE | 2021-07-02 16:21 | PROVIDER PROGRESS NOTE ---
Subjective - Prog Note Date Prog Note Date: 07/02/21 - Subjective Subjective: more alert today. responded to name Objective - Vital Signs/Intake & Output Reviewed Vital Signs: Yes Vital Signs: Vital Signs x48h Temp Pulse Pulse Resp BP Pulse Ox 07/02/21 16:00 37.4 C 70 17 94/46 L 100 07/02/21 15:00 72 20 104/60 100 07/02/21 14:00 36.8 C 70 16 96/50 L 100 07/02/21 13:00 71 16 96/53 L 100 07/02/21 12:30 64 07/02/21 12:00 70 16 94/52 L 100 07/02/21 11:00 70 17 97/52 L 100 07/02/21 10:00 70 17 96/55 L 100 07/02/21 09:30 37.0 C 07/02/21 09:00 70 17 96/61 100 Intake & Output: Intake & Output 06/29/21 06/30/21 07/01/21 07/02/21 23:59 23:59 23:59 23:59 Intake Total 3847.791 3871.150 3446.813 964.687 Output Total 2455 1744 1576 952 Balance 7922.798 4752.150 1870.813 12.687 - Objective General Appearance: positive: No acute distress Abdomen: positive: Non-tender, No distention, Other (incision c/d/i no erythema scant thin drainage ngt still green) - Lab Results Fish Bones: 07/01/21 05:34 07/02/21 04:42 Other Labs: Lab Results x24hrs 07/02/21 07/02/21 07/02/21 Range/Units 04:42 04:42 04:42 VBG pH 7.311 (7.31-7.41) Ionized Calcium 1.16 (1.15-1.33) mmol/L Sodium 135 (135-145) mmol/L Potassium 4.4 (3.5-5.0) mmol/L Chloride 106 (101-111) mmol/L Carbon Dioxide 22 (21-32) mmol/L Anion Gap 7.0 (6-13) BUN 26 H (6-20) mg/dL Creatinine 0.7 (0.4-1.0) mg/dL Estimated GFR (MDRD) 81 L (>89) Glucose 152 H (70-100) mg/dL Calcium 8.0 L (8.5-10.3) mg/dL Phosphorus 2.4 L (2.5-4.6) mg/dL Magnesium 1.9 (1.7-2.8) mg/dL Total Bilirubin 0.4 (0.2-1.0) mg/dL AST 12 (10-42) IU/L ALT < 10 L (10-60) IU/L Alkaline Phosphatase 65 (42-121) IU/L C-Reactive Protein 9.2 H (0-1.0) mg/dL Total Protein 5.1 L (6.7-8.2) g/dL Albumin 2.1 L (3.2-5.5) g/dL Globulin 3.0 (2.1-4.2) g/dL Albumin/Globulin Ratio 0.7 L (1.0-2.2) Prealbumin 11 L (18-45) mg/dL Triglycerides 79 ( - 149) mg/dL TSH 3.29 (0.34-5.60) uIU/mL Free T4 0.97 (0.58-1.64) ng/dL Sepsis Event Note (H) - Evaluation Current Stage of Sepsis: Septic shock Possible source of Sepsis: positive: GI tract/intra-abdominal - Sepsis Criteria Sepsis Criteria: WBC count greater than 10% bands, SBP drop more than 40mHg, MAP less than 65 mmHg, SBP less than 90 mmHg, Renal: urine output less than 0.5ml/kg/hr for 2 hours or creatinine gr, Metabolic: lactate > 2 mmol/L Assessment/Plan - Problem List (1) Perforated duodenal ulcer Impression: benign abdomen. ileus present. recommend continue ngt to suction
--- NOTE | 2021-07-02 18:14 | PROVIDER PROGRESS NOTE ---
Assessment/Plan - Problem List (1) Septic shock Assessment/Plan: Patient initially with septic shock secondary to perforated duodenal ulcer. Peritoneal fluid culture is negative Urine culture shows no growth Chest x-ray done today shows residual bilateral airspace opacities, Unclear if this represents infection Currently hypotensive, requires Levophed for pressure support Intubated Since postop Suspect shock is likely multifactorial in the setting of perforated ulcer, as well as chronic anasarca with fluid redistribution and depletion of intravascular volume Is receiving maintenance fluids for pressure support which Further worsening the anasarca but also necessary for blood pressure support. Albumin is trending down as low as 1.8 Per I's and O's, is maintaining fluid positive status daily with diminished urinary output Started a trial of IV albumin on 07/01, and if this is effective in improving blood pressure can start weaning off IV fluids Consider chasing albumin with Lasix (2) Anasarca Assessment/Plan: As above, severe anasarca with very low albumin Unclear how much of this is baseline as patient apparently has had this prior to admission but likely much worse now No clear single organ system to explain this, as there is no evidence of liver cirrhosis, diastolic dysfunction does not seem to be enough to explain this, and likely this is at least some a consequence of aggressive IV fluid resuscitation in the setting of septic shock As above, trial of albumin IV (3) On mechanically assisted ventilation Assessment/Plan: Continues to be intubatedWith chest x-ray today showingImprovement in the aerat ion of the upper lung zones with residual bilateral opacities which may represent atelectasis versus infection Continue to wean off the vent as able Appreciate respiratory therapy's diligent efforts on this patient Continue upper airway suctioning as needed (4) Perforated duodenal ulcer Assessment/Plan: Surgery is primary on this patient and managing the perforated viscus Currently showing no evidence off bleeding, or expansion of perforation (5) Hypothyroidism Qualifiers: Hypothyroidism type: acquired Qualified Code(s): E03.9 - Hypothyroidism, unspecified Assessment/Plan: Not taking p.o., so therefore not taking levothyroxine TSH and Free T4 normal (6) Schizophrenia Qualifiers: Schizophrenia type: schizophreniform disorder Qualified Code(s): F20.81 - Schizophreniform disorder - Current Meds Current Meds: Current Medications Generic Name Dose Route Start Last Admin Trade Name Freq PRN Reason Stop Dose Admin Chlorhexidine Gluconate 15 ml 06/27/21 21:00 07/02/21 08:33 Chlorhexidine Gluconate 15 Ml Udc PO 15 ml BID JULIETA Administration Enoxaparin Sodium 40 mg 06/28/21 09:00 07/02/21 08:08 Enoxaparin 40 Mg/0.4 Ml Syringe SUBQ 40 mg DAILY JULIETA Administration Glycopyrrolate 0.2 mg 06/28/21 21:17 06/29/21 09:46 Glycopyrrolate 1 Mg/5 Ml Vial SUBQ 0.2 mg Q6H PRN Administration Excessive Secretions Hydromorphone HCl 1 mg 06/27/21 10:08 07/02/21 08:16 Hydromorphone 1 Mg/Ml Carpuject IVP 1 mg Q2H PRN Administration PAIN Fluconazole 100 mls @ 100 mls/hr 06/27/21 09:00 07/02/21 09:26 Diflucan 200 Mg/100 Ml IV Infused DAILY JULIETA Infusion Norepinephrine Bitartrate 8 mg 250 mls @ 15 mls/hr 06/26/21 23:00 07/02/21 02:06 / Dextrose IV 5 mcg/min .[id number] JULIETA 9.375 mls/hr Titration Protocol 8 MCG/MIN Sodium Chloride 500 mls @ 20 mls/hr 06/26/21 23:03 06/30/21 19:27 Normal Saline 0.9% IV Infused Q24H PRN Infusion TKO RATE Dexmedetomidine HCl 400 mcg/ 100 mls @ 8.3 mls/hr 06/27/21 18:00 07/02/21 14:05 Sodium Chloride IV 0.9 mcg/kg/hr .Q12H3M JULIETA 18.675 mls/hr Titration Protocol 0.4 MCG/KG/HR Multivitamins 10 ml/ TRACE 2,011 mls @ 75 mls/hr 06/27/21 19:00 07/01/21 19:11 ELEMENTS 1 ml/ Amino Ac/ IV 75 mls/hr Electrol/Dextrose/Calcium Q24H JULIETA Administration Protocol Fat Emulsion Intravenous 250 mls @ 21 mls/hr 06/27/21 19:00 07/02/21 07:06 Intralipid 20% IV Infused Q24H JULIETA Infusion Cefepime HCl 2 gm/ Sodium 100 mls @ 200 mls/hr 06/27/21 18:00 07/02/21 09:26 Chloride IV Infused BID JULIETA Infusion Acetaminophen 100 mls @ 400 mls/hr 06/28/21 10:21 06/28/21 23:41 Ofirmev IV Infused Q6H PRN Infusion pain Metronidazole 500 mg in 100 mls @ 100 mls/hr 06/29/21 09:00 07/02/21 10:25 Flagyl 500 Mg/100 Ml IV Infused Q8H JULIETA Infusion Albumin Human 12.5 gm in 50 mls @ 50 mls/hr 07/01/21 15:00 07/02/21 15:49 Albuminar-25 IV 50 mls/hr TID JULIETA Administration Levothyroxine Sodium 130 mcg 07/01/21 07:00 07/01/21 06:41 Levothyroxine 100 Mcg Vial IVP 130 mcg MoTh@0700 JULIETA Administration Lorazepam 0.5 mg 06/26/21 20:54 06/28/21 23:16 Lorazepam 2 Mg/Ml Vial IVP 0.5 mg Q1H PRN Administration Anxiety Midazolam HCl 2 mg 06/28/21 00:24 07/02/21 15:06 Midazolam 2 Mg/2 Ml Vial IVP 2 mg Q2H PRN Administration Agitation Pantoprazole Sodium 40 mg 06/27/21 07:00 07/02/21 06:39 Pantoprazole 40 Mg Vial IVP 40 mg QDAC JULIETA Administration Sodium Chloride 10 ml 06/27/21 01:00 07/02/21 08:20 Sodium Chloride Flush 0.9% 10 Ml Syringe IVP 10 ml 0100,0900,1700 JULIETA Administration Sodium Chloride 10 ml 06/26/21 20:54 06/27/21 06:16 Sodium Chloride Flush 0.9% 10 Ml Syringe IVP 10 ml PRN PRN Administration NEEDED PER PROVIDER ORDERS Sodium Chloride 20 ml 06/26/21 23:03 06/27/21 04:16 Sodium Chloride Flush 0.9% 10 Ml Syringe IVP 20 ml PRN PRN Administration After Blood Draw - Lab Result Lab results reviewed: Yes Fish Bone Diagrams: 07/01/21 05:34 07/02/21 04:42 - Additional Planning My Orders: My Active Orders 07/02/21 17:00 Neutra-Phos [K-Phos Neutral] 250 mg PO TIDWM 07/02/21 21:00 Calcium Carbonate [Tums] 500 mg PO BID 07/03/21 05:00 CRP - C-REACTIVE PROTEIN [CHEM] DAILYLAB 07/04/21 05:00 CRP - C-REACTIVE PROTEIN [CHEM] DAILYLAB Subjective - Subjective Patient Reports: Other (Chemically sedated and intubated, unable to provide subjective report) Nursing Reports: Other (No significant changes) Objective Vital Signs: Vital Signs - 24 hr 07/01/21 07/01/21 07/01/21 19:00 19:10 20:00 Temperature Heart Rate 70 Heart Rate [ 70 70 Monitoring electrodes] Respiratory 12 20 Rate Blood Pressure 91/56 L 103/52 L [Left Brachial artery] O2 Saturation 100 100 07/01/21 07/01/21 07/01/21 21:00 21:55 22:00 Temperature Heart Rate 72 Heart Rate [ 70 70 Monitoring electrodes] Respiratory 19 18 Rate Blood Pressure 104/56 L 104/54 L [Left Brachial artery] O2 Saturation 100 100 07/01/21 07/01/21 07/02/21 23:00 23:30 00:01 Temperature 36.7 C Heart Rate 70 Heart Rate [ 70 70 Monitoring electrodes] Respiratory 22 16 Rate Blood Pressure 98/59 L 93/54 L [Left Brachial artery] O2 Saturation 100 100 07/02/21 07/02/21 07/02/21 01:00 01:45 02:00 Temperature Heart Rate 71 Heart Rate [ 70 70 Monitoring electrodes] Respiratory 21 16 Rate Blood Pressure 101/47 L 98/52 L [Left Brachial artery] O2 Saturation 100 100 07/02/21 07/02/21 07/02/21 03:00 03:35 04:00 Temperature 37.0 C Heart Rate 70 Heart Rate [ 70 70 Monitoring electrodes] Respiratory 15 17 Rate Blood Pressure 100/50 L 96/48 L [Left Brachial artery] O2 Saturation 100 100 07/02/21 07/02/21 07/02/21 05:00 05:35 06:00 Temperature Heart Rate 70 Heart Rate [ 70 70 Monitoring electrodes] Respiratory 16 18 Rate Blood Pressure 98/52 L 96/53 L [Left Brachial artery] O2 Saturation 100 100 07/02/21 07/02/21 07/02/21 07:00 08:00 08:08 Temperature Heart Rate 72 Heart Rate [ 70 70 Monitoring electrodes] Respiratory 19 17 Rate Blood Pressure 95/53 L 99/52 L [Left Brachial artery] O2 Saturation 100 100 07/02/21 07/02/21 07/02/21 09:00 09:30 10:00 Temperature 37.0 C Heart Rate Heart Rate [ 70 70 Monitoring electrodes] Respiratory 17 17 Rate Blood Pressure 96/61 96/55 L [Left Brachial artery] O2 Saturation 100 100 07/02/21 07/02/21 07/02/21 11:00 12:00 12:30 Temperature Heart Rate 64 Heart Rate [ 70 70 Monitoring electrodes] Respiratory 17 16 Rate Blood Pressure 97/52 L 94/52 L [Left Brachial artery] O2 Saturation 100 100 07/02/21 07/02/21 07/02/21 13:00 14:00 15:00 Temperature 36.8 C Heart Rate Heart Rate [ 71 70 72 Monitoring electrodes] Respiratory 16 16 20 Rate Blood Pressure 96/53 L 96/50 L 104/60 [Left Brachial artery] O2 Saturation 100 100 100 07/02/21 07/02/21 07/02/21 16:00 17:00 18:00 Temperature 37.4 C Heart Rate Heart Rate [ 70 70 70 Monitoring electrodes] Respiratory 17 19 13 Rate Blood Pressure 94/46 L 92/51 L 89/51 L [Left Brachial artery] O2 Saturation 100 100 100 Oxygen O2 Source Mechanical ventilator I&O (Last 24 Hrs): Intake and Output Totals x24h 06/30/21 07/01/21 07/02/21 23:59 23:59 23:59 Intake Total 3871.150 3446.813 964.687 Output Total 1744 1576 1087 Balance 2127.150 1870.813 -122.313 General: Other (Chemically sedated and intubated) Neuro: Other (Chemically sedated and intubated, some responsive movements while suctioning showing signs of appropriate involuntary movement) Cardiovascular: Regular rate Abdomen: Normal bowel sounds - Results Results: Laboratory Results WBC 6.5 x10^3/uL (4.8-10.8) 07/01/21 05:34 RBC 3.14 10^6/uL (4.20-5.40) L 07/01/21 05:34 Hgb 9.1 g/dL (12.0-16.0) L 07/01/21 05:34 Hct 29.4 % (37.0-47.0) L 07/01/21 05:34 MCV 93.6 fL (81.0-99.0) 07/01/21 05:34 MCH 29.0 pg (27.0-31.0) 07/01/21 05:34 MCHC 31.0 g/dL (32.0-36.0) L 07/01/21 05:34 RDW 20.4 % (12.0-15.0) H 07/01/21 05:34 Plt Count 156 10^3/uL (130-450) 07/01/21 05:34 MPV 11.1 fL (7.9-10.8) H 07/01/21 05:34 Neut # (Auto) 4.3 10^3/uL (1.5-6.6) 07/01/21 05:34 Lymph # (Auto) 1.0 10^3/uL (1.5-3.5) L 07/01/21 05:34 [place] # (Auto) 0.7 10^3/uL (0.0-1.0) 07/01/21 05:34 Eos # (Auto) 0.2 10^3/uL (0.0-0.7) 07/01/21 05:34 Baso # (Auto) 0.0 10^3/uL (0.0-0.1) 07/01/21 05:34 Absolute Nucleated RBC 0.02 x10^3/uL 07/01/21 05:34 Total Counted 100 06/27/21 04:20 Band Neuts % (Manual) 26 % (0-10) H 06/27/21 04:20 Abnorm Lymph % (Manual) 0 % 06/27/21 04:20 Nucleated RBC % 0.3 /100WBC 07/01/21 05:34 Neutrophils # (Manual) 11.3 10^3/uL (1.5-6.6) H 06/27/21 04:20 Lymphocytes # (Manual) 1.1 10^3/uL (1.5-3.5) L 06/27/21 04:20 Monocytes # (Manual) 0.1 10^3/uL (0.0-1.0) 06/27/21 04:20 Eosinophils # (Manual) 0.0 10^3/uL (0-0.7) 06/27/21 04:20 Basophils # (Manual) 0.0 10^3/uL (0-0.1) 06/27/21 04:20 Differential Comment MANUAL DIFFERENTIAL 06/27/21 04:20 Manual Slide Review Indicated 07/01/21 05:34 WBC Morphology NORMAL APPEARANCE (NORMAL) 07/01/21 05:34 Platelet Estimate NORMAL (130-450,000) (NORMAL) 07/01/21 05:34 Platelet Morphology NORMAL APPEARANCE (NORMAL) 07/01/21 05:34 RBC Morph Micro Appear 1+ ANISOCYTOSIS (NORMAL) 07/01/21 05:34 Bld Gas Analysis Time 0344 06/30/21 03:38 Sample Site LEFT RADIAL 06/30/21 03:38 ABG pH 7.45 (7.35-7.45) 06/30/21 03:38 ABG pCO2 35 mmHg (34-45) 06/30/21 03:38 ABG pO2 94 mmHg (80-100) 06/30/21 03:38 ABG HCO3 23.8 mmol/L (22.0-26.0) 06/30/21 03:38 ABG Total CO2 24.9 MMOL/L (21.0-29.0) 06/30/21 03:38 ABG O2 Saturation 97 % (94-98) 06/30/21 03:38 ABG Base Excess 0.0 mmol/L (-2.0-3.0) 06/30/21 03:38 Ruperto Test POSITIVE 06/30/21 03:38 VBG pH 7.311 (7.31-7.41) 07/02/21 04:42 Ionized Calcium 1.16 mmol/L (1.15-1.33) 07/02/21 04:42 Respiration Rate 16 b/min 06/30/21 03:38 O2 Delivery Device VENTILATOR 06/30/21 03:38 Vent Mode ASSIST/CONTROL 06/30/21 03:38 FiO2 30.00 06/30/21 03:38 Tidal Volume 400 mL 06/30/21 03:38 PEEP 5 cmH2O 06/30/21 03:38 Pressure Support Vent 10 cmH2O 06/27/21 05:43 IPAP Not Reportable 06/27/21 05:43 Sodium 135 mmol/L (135-145) 07/02/21 04:42 Potassium 4.4 mmol/L (3.5-5.0) 07/02/21 04:42 Chloride 106 mmol/L (101-111) 07/02/21 04:42 Carbon Dioxide 22 mmol/L (21-32) 07/02/21 04:42 Anion Gap 7.0 (6-13) 07/02/21 04:42 BUN 26 mg/dL (6-20) H 07/02/21 04:42 Creatinine 0.7 mg/dL (0.4-1.0) 07/02/21 04:42 Estimated GFR (MDRD) 81 (>89) L 07/02/21 04:42 Glucose 152 mg/dL (70-100) H 07/02/21 04:42 Lactic Acid 1.6 mmol/L (0.5-2.2) 06/27/21 21:01 Calcium 8.0 mg/dL (8.5-10.3) L 07/02/21 04:42 Phosphorus 2.4 mg/dL (2.5-4.6) L 07/02/21 04:42 Magnesium 1.9 mg/dL (1.7-2.8) 07/02/21 04:42 Total Bilirubin 0.4 mg/dL (0.2-1.0) 07/02/21 04:42 AST 12 IU/L (10-42) 07/02/21 04:42 ALT < 10 IU/L (10-60) L 07/02/21 04:42 Alkaline Phosphatase 65 IU/L (42-121) 07/02/21 04:42 Troponin I High Sens 99.6 ng/L (2.3-14.8) H* 06/27/21 08:08 C-Reactive Protein 9.2 mg/dL (0-1.0) H 07/02/21 04:42 Total Protein 5.1 g/dL (6.7-8.2) L 07/02/21 04:42 Albumin 2.1 g/dL (3.2-5.5) L 07/02/21 04:42 Globulin 3.0 g/dL (2.1-4.2) 07/02/21 04:42 Albumin/Globulin Ratio 0.7 (1.0-2.2) L 07/02/21 04:42 Prealbumin 11 mg/dL (18-45) L 07/02/21 04:42 Triglycerides 79 mg/dL (-149) 07/02/21 04:42 Lipase 42 U/L (22-51) 06/26/21 14:26 TSH 3.29 uIU/mL (0.34-5.60) 07/02/21 04:42 Free T4 0.97 ng/dL (0.58-1.64) 07/02/21 04:42 Urine Color YELLOW 06/26/21 22:51 Urine Clarity CLEAR (CLEAR) 06/26/21 22:51 Urine pH 5.0 PH (5.0-7.5) 06/26/21 22:51 Ur Specific [place] 1.015 (1.002-1.030) 06/26/21 22:51 Urine Protein NEGATIVE mg/dL (NEGATIVE) 06/26/21 22:51 Urine Glucose (UA) NEGATIVE mg/dL (NEGATIVE) 06/26/21 22:51 Urine Ketones NEGATIVE mg/dL (NEGATIVE) 06/26/21 22:51 Urine Occult Blood NEGATIVE (NEGATIVE) 06/26/21 22:51 Urine Nitrite NEGATIVE (NEGATIVE) 06/26/21 22:51 Urine Bilirubin NEGATIVE (NEGATIVE) 06/26/21 22:51 Urine Urobilinogen 0.2 (NORMAL) E.U./dL (NORMAL) 06/26/21 22:51 Ur Leukocyte Esterase TRACE (NEGATIVE) H 06/26/21 22:51 Urine RBC 0-5 /HPF (0-5) 06/26/21 22:51 Urine WBC 4-5 /HPF (0-5) 06/26/21 22:51 Ur Squamous Epith Cells FEW Squamous (<= Few) 06/26/21 22:51 Urine Bacteria Few /HPF (None Seen) 06/26/21 22:51 Urine Casts 3-5 Hyaline Casts /LPF 06/26/21 22:51 Ur Microscopic Review INDICATED 06/26/21 22:51 Urine Culture Comments INDICATED 06/26/21 22:51 Nasal Adenovirus (PCR) NOT DETECTED 06/27/21 01:23 Nasal B. parapertussis DNA (PCR) NOT DETECTED 06/27/21 01:23 Nasal Coronavir 229E PCR NOT DETECTED 06/27/21 01:23 Nasal Coronavir HKU1 PCR NOT DETECTED 06/27/21 01:23 Nasal Coronavir NL63 PCR NOT DETECTED 06/27/21 01:23 Nasal Coronavir OC43 PCR NOT DETECTED 06/27/21 01:23 Nasal Enterovir/Rhinovir PCR NOT DETECTED 06/27/21 01:23 Nasal Influenza B PCR NOT DETECTED 06/27/21 01:23 Nasal Influenza A PCR NOT DETECTED 06/27/21 01:23 Nasal Parainfluen 1 PCR NOT DETECTED 06/27/21 01:23 Nasal Parainfluen 2 PCR NOT DETECTED 06/27/21 01:23 Nasal Parainfluen 3 PCR NOT DETECTED 06/27/21 01:23 Nasal Parainfluen 4 PCR NOT DETECTED 06/27/21 01:23 Nasal RSV (PCR) NOT DETECTED 06/27/21 01:23 Nasal Screen MRSA (PCR) NEGATIVE (NEGATIVE) 06/26/21 21:55 Nasal B.pertussis DNA PCR NOT DETECTED 06/27/21 01:23 Nasal C.pneumoniae (PCR) NOT DETECTED 06/27/21 01:23 Mk Human Metapneumo PCR NOT DETECTED 06/27/21 01:23 Nasal M.pneumoniae (PCR) NOT DETECTED 06/27/21 01:23 Nasal SARS-CoV-2 (PCR) DETECTED A 06/27/21 01:23 - Procedures Procedures: Procedures RESPIRATORY VENTILATION, LESS THAN 24 CONSECUTIVE HOURS (01/11/20) Sepsis Event Note (H) - Evaluation Current Stage of Sepsis: Septic shock Possible source of Sepsis: positive: GI tract/intra-abdominal - Sepsis Criteria Sepsis Criteria: WBC count greater than 10% bands, SBP drop more than 40mHg, MAP less than 65 mmHg, SBP less than 90 mmHg, Renal: urine output less than 0.5ml/kg/hr for 2 hours or creatinine gr, Metabolic: lactate > 2 mmol/L ABX Reporting Has patient been on IV antibiotics over the past 48 hours?: Yes Current Medications - Current Medications Current Medications: Current Medications Generic Name Dose Route Start Last Admin Trade Name Freq PRN Reason Stop Dose Admin Chlorhexidine Gluconate 15 ml 06/27/21 21:00 07/02/21 08:33 Chlorhexidine Gluconate 15 Ml Udc PO 15 ml BID JULIETA Administration Enoxaparin Sodium 40 mg 06/28/21 09:00 07/02/21 08:08 Enoxaparin 40 Mg/0.4 Ml Syringe SUBQ 40 mg DAILY JULIETA Administration Glycopyrrolate 0.2 mg 06/28/21 21:17 06/29/21 09:46 Glycopyrrolate 1 Mg/5 Ml Vial SUBQ 0.2 mg Q6H PRN Administration Excessive Secretions Hydromorphone HCl 1 mg 06/27/21 10:08 07/02/21 08:16 Hydromorphone 1 Mg/Ml Carpuject IVP 1 mg Q2H PRN Administration PAIN Fluconazole 100 mls @ 100 mls/hr 06/27/21 09:00 07/02/21 09:26 Diflucan 200 Mg/100 Ml IV Infused DAILY JULIETA Infusion Norepinephrine Bitartrate 8 mg 250 mls @ 15 mls/hr 06/26/21 23:00 07/02/21 02:06 / Dextrose IV 5 mcg/min .Q63O05M JULIETA 9.375 mls/hr Titration Protocol 8 MCG/MIN Sodium Chloride 500 mls @ 20 mls/hr 06/26/21 23:03 06/30/21 19:27 Normal Saline 0.9% IV Infused Q24H PRN Infusion TKO RATE Dexmedetomidine HCl 400 mcg/ 100 mls @ 8.3 mls/hr 06/27/21 18:00 07/02/21 14:05 Sodium Chloride IV 0.9 mcg/kg/hr .Q12H3M JULIETA 18.675 mls/hr Titration Protocol 0.4 MCG/KG/HR Multivitamins 10 ml/ TRACE 2,011 mls @ 75 mls/hr 06/27/21 19:00 07/01/21 19:11 ELEMENTS 1 ml/ Amino Ac/ IV 75 mls/hr Electrol/Dextrose/Calcium Q24H JULIETA Administration Protocol Fat Emulsion Intravenous 250 mls @ 21 mls/hr 06/27/21 19:00 07/02/21 07:06 Intralipid 20% IV Infused Q24H JULIETA Infusion Cefepime HCl 2 gm/ Sodium 100 mls @ 200 mls/hr 06/27/21 18:00 07/02/21 09:26 Chloride IV Infused BID JULIETA Infusion Acetaminophen 100 mls @ 400 mls/hr 06/28/21 10:21 06/28/21 23:41 Ofirmev IV Infused Q6H PRN Infusion pain Metronidazole 500 mg in 100 mls @ 100 mls/hr 06/29/21 09:00 07/02/21 10:25 Flagyl 500 Mg/100 Ml IV Infused Q8H JULIETA Infusion Albumin Human 12.5 gm in 50 mls @ 50 mls/hr 07/01/21 15:00 07/02/21 15:49 Albuminar-25 IV 50 mls/hr TID JULIETA Administration Levothyroxine Sodium 130 mcg 07/01/21 07:00 07/01/21 06:41 Levothyroxine 100 Mcg Vial IVP 130 mcg MoTh@0700 JULIETA Administration Lorazepam 0.5 mg 06/26/21 20:54 06/28/21 23:16 Lorazepam 2 Mg/Ml Vial IVP 0.5 mg Q1H PRN Administration Anxiety Midazolam HCl 2 mg 06/28/21 00:24 07/02/21 15:06 Midazolam 2 Mg/2 Ml Vial IVP 2 mg Q2H PRN Administration Agitation Pantoprazole Sodium 40 mg 06/27/21 07:00 07/02/21 06:39 Pantoprazole 40 Mg Vial IVP 40 mg QDAC JULIETA Administration Sodium Chloride 10 ml 06/27/21 01:00 07/02/21 08:20 Sodium Chloride Flush 0.9% 10 Ml Syringe IVP 10 ml 0100,0900,1700 JULIETA Administration Sodium Chloride 10 ml 06/26/21 20:54 06/27/21 06:16 Sodium Chloride Flush 0.9% 10 Ml Syringe IVP 10 ml PRN PRN Administration NEEDED PER PROVIDER ORDERS Sodium Chloride 20 ml 06/26/21 23:03 06/27/21 04:16 Sodium Chloride Flush 0.9% 10 Ml Syringe IVP 20 ml PRN PRN Administration After Blood Draw
[2021-07-02] MEDS: TPN (CLINIMIX E 5/15) 2,000 ML with MULTIVITAMIN 10 ML, TRACE ELEMENTS 1 ML IV SCH ×3 (19:31)
[2021-07-02] MEDS: NEUTRA-PHOS 250 MG TABLET PO SCH (19:31)
[2021-07-02] MEDS: FAT EMULSION 20% 250 ML IV SCH (19:36)
[2021-07-02] MEDS: CALCIUM CARBONATE CHEW 500 MG TABLET PO SCH (20:55)
[2021-07-03] MEDS: metroNIDAZOLE 500 MG/100 ML 500 MG/100 ML BAG IV SCH ×3 (00:57→16:59)
[2021-07-03] MEDS: SODIUM CHLORIDE FLUSH 0.9% 10 ML SYRINGE IVP SCH ×3 (00:58→17:00)
[2021-07-03] MEDS: DEXMEDETOMIDINE 400 MCG in SODIUM CHLORIDE 0.9% 100ML 96 ML IV SCH ×6 (02:08→21:23)
[2021-07-03] MEDS: ALBUMIN 25% 12.5 GM/50 ML VIAL IV SCH ×3 (06:03→22:12)
[2021-07-03] MEDS: PANTOPRAZOLE 40 MG VIAL IVP SCH (06:04)
[2021-07-03 07:48] LABS: CREATININE 0.6 mg/dL (0.4-1.0); POTASSIUM 4.4 mmol/L (3.5-5.0)
[2021-07-03 07:49] LABS: BASOPHILS % (AUTO) 0.5 %; EOSINOPHILS # (AUTO) 0.5 10^3/uL (0.0-0.7); EOSINOPHILS % (AUTO) 5.6 %; HCT - HEMATOCRIT 27.6 % (37.0-47.0); HGB - HEMOGLOBIN 8.6 g/dL (12.0-16.0); LYMPHOCYTES % (AUTO) 11.8 %; MEAN CORPUSCULAR HEMOGLOBIN 29.6 pg (27.0-31.0); MEAN CORPUSCULAR HGB CONC 31.2 g/dL (32.0-36.0); MEAN CORPUSCULAR VOLUME 94.8 fL (81.0-99.0); MEAN PLATELET VOLUME 12.2 fL (7.9-10.8); MONOCYTES # (AUTO) 0.6 10^3/uL (0.0-1.0); MONOCYTES % (AUTO) 7.3 %; NEUTROPHILS # (AUTO) 5.9 10^3/uL (1.5-6.6); NEUTROPHILS % (AUTO) 72.9 %; PLT - PLATELET COUNT 195 10^3/uL (130-450); RED BLOOD COUNT 2.91 10^6/uL (4.20-5.40); RED CELL DISTRIBUTION WIDTH 19.7 % (12.0-15.0)
[2021-07-03] MEDS ORDERED: SODIUM CHLORIDE INHALATION 3 ML NEB ONE (08:08)
[2021-07-03] MEDS: CEFEPIME 2 GM in SODIUM CHLORIDE 0.9% MINIBAG 100 ML IV SCH ×2 (08:30→20:05)
--- NOTE | 2021-07-03 08:56 | XRAY Report ---
PROCEDURE: Chest 1 View X-Ray INDICATIONS: Intubated, Follow up TECHNIQUE: One view of the chest was acquired. COMPARISON: July 01, 2021 FINDINGS: SUPPORT DEVICES: Redemonstrated support devices, grossly unchanged. LUNG/PLEURA: Redemonstrated bilateral airspace opacities, right greater than left. No pneumothorax. MEDIASTINUM: Prominence of the cardiomediastinal silhouette, partially exaggerated by technique. BONES/SOFT TISSUES: No acute abnormality. IMPRESSION: 1.No significant interval change. Reviewed by: Bonifacio Worley MD on 07/03/2021 8:55 AM PDT Approved by: Bonifacio Worley MD on 07/03/2021 8:55 AM PDT Station ID: [id number]
[2021-07-03] MEDS: ENOXAPARIN 40 MG/0.4 ML SYRINGE SUBQ SCH (10:25)
[2021-07-03] MEDS: CALCIUM CARBONATE CHEW 500 MG TABLET PO SCH ×2 (10:25→20:13)
[2021-07-03] MEDS: NEUTRA-PHOS 250 MG TABLET PO SCH ×3 (10:25→16:52)
[2021-07-03] MEDS: CHLORHEXIDINE GLUCONATE 15 ML UDC PO SCH ×2 (10:30→20:13)
[2021-07-03] MEDS: SCOPOLAMINE PATCH TOP SCH (11:30)
--- NOTE | 2021-07-03 12:01 | PROVIDER PROGRESS NOTE ---
Subjective - Prog Note Date Prog Note Date: 07/03/21 Objective - Vital Signs/Intake & Output Vital Signs: Vital Signs x48h Temp Pulse Pulse Resp BP Pulse Ox 07/03/21 11:20 70 07/03/21 11:00 70 18 97/51 L 100 07/03/21 10:00 70 20 101/51 L 100 07/03/21 09:30 70 07/03/21 09:00 37 C 70 20 97/51 L 100 07/03/21 08:00 70 17 102/53 L 100 07/03/21 07:50 70 07/03/21 07:00 70 18 98/55 L 100 07/03/21 06:00 70 20 82/71 L 98 07/03/21 05:25 70 07/03/21 05:00 70 18 98/53 L 100 07/03/21 04:00 36.7 C 70 18 96/55 L 100 Intake & Output: Intake & Output 06/30/21 07/01/21 07/02/21 07/03/21 23:59 23:59 23:59 23:59 Intake Total 3871.150 3446.813 3422.273 2194.792 Output Total 1744 1576 1392 968 Balance 2127.150 2002.177 0747.273 1226.792 - Objective Abdomen: positive: Non-tender, No distention (no erythema. claus serosanguinous incision c/d/i benign abdomen. ngt improved however still green out put) - Lab Results Fish Bones: 07/03/21 07:30 07/03/21 07:30 Other Labs: Lab Results x24hrs 07/03/21 07/03/21 07/03/21 Range/Units 07:30 07:30 07:30 WBC 8.0 (4.8-10.8) x10^3/uL RBC 2.91 L (4.20-5.40) 10^6/uL Hgb 8.6 L (12.0-16.0) g/dL Hct 27.6 L (37.0-47.0) % MCV 94.8 (81.0-99.0) fL MCH 29.6 (27.0-31.0) pg MCHC 31.2 L (32.0-36.0) g/dL RDW 19.7 H (12.0-15.0) % Plt Count 195 (130-450) 10^3/uL MPV 12.2 H (7.9-10.8) fL Neut # (Auto) 5.9 (1.5-6.6) 10^3/uL Lymph # (Auto) 1.0 L (1.5-3.5) 10^3/uL [place] # (Auto) 0.6 (0.0-1.0) 10^3/uL Eos # (Auto) 0.5 (0.0-0.7) 10^3/uL Baso # (Auto) 0.0 (0.0-0.1) 10^3/uL Absolute Nucleated RBC 0.00 x10^3/uL Nucleated RBC % 0.0 /100WBC Sodium 135 (135-145) mmol/L Potassium 4.4 (3.5-5.0) mmol/L Chloride 110 (101-111) mmol/L Carbon Dioxide 20 L (21-32) mmol/L Anion Gap 5.0 L (6-13) BUN 23 H (6-20) mg/dL Creatinine 0.6 (0.4-1.0) mg/dL Estimated GFR (MDRD) 96 (>89) Glucose 149 H (70-100) mg/dL Calcium 8.0 L (8.5-10.3) mg/dL C-Reactive Protein (0-1.0) mg/dL B-Natriuretic Peptide 919 H (5-100) pg/mL 07/03/21 Range/Units 04:48 WBC (4.8-10.8) x10^3/uL RBC (4.20-5.40) 10^6/uL Hgb (12.0-16.0) g/dL Hct (37.0-47.0) % MCV (81.0-99.0) fL MCH (27.0-31.0) pg MCHC (32.0-36.0) g/dL RDW (12.0-15.0) % Plt Count (130-450) 10^3/uL MPV (7.9-10.8) fL Neut # (Auto) (1.5-6.6) 10^3/uL Lymph # (Auto) (1.5-3.5) 10^3/uL [place] # (Auto) (0.0-1.0) 10^3/uL Eos # (Auto) (0.0-0.7) 10^3/uL Baso # (Auto) (0.0-0.1) 10^3/uL Absolute Nucleated RBC x10^3/uL Nucleated RBC % /100WBC Sodium (135-145) mmol/L Potassium (3.5-5.0) mmol/L Chloride (101-111) mmol/L Carbon Dioxide (21-32) mmol/L Anion Gap (6-13) BUN (6-20) mg/dL Creatinine (0.4-1.0) mg/dL Estimated GFR (MDRD) (>89) Glucose (70-100) mg/dL Calcium (8.5-10.3) mg/dL C-Reactive Protein 8.0 H (0-1.0) mg/dL B-Natriuretic Peptide (5-100) pg/mL Sepsis Event Note (H) - Evaluation Current Stage of Sepsis: Septic shock Possible source of Sepsis: positive: GI tract/intra-abdominal - Sepsis Criteria Sepsis Criteria: WBC count greater than 10% bands, SBP drop more than 40mHg, MAP less than 65 mmHg, SBP less than 90 mmHg, Renal: urine output less than 0.5ml/kg/hr for 2 hours or creatinine gr, Metabolic: lactate > 2 mmol/L Assessment/Plan - Problem List (1) Perforated duodenal ulcer Impression: ileus slowly improving. may give meds per ngt and clamp for 1 hour. ngt to suction other times
[2021-07-03] MEDS: FLUCONAZOLE 200 MG/100 ML 100 ML IV SCH (12:10)
--- NOTE | 2021-07-03 14:04 | PROVIDER PROGRESS NOTE ---
Assessment/Plan - Problem List (1) Septic shock Assessment/Plan: Patient initially with septic shock secondary to perforated duodenal ulcer. Peritoneal fluid culture is negative Urine culture shows no growth Chest x-ray done today shows residual bilateral airspace opacities, Unclear if this represents infection Currently hypotensive, requires Levophed for pressure support Intubated Since postop Suspect shock is likely multifactorial in the setting of perforated ulcer, as well as chronic anasarca with fluid redistribution and depletion of intravascular volume Is receiving maintenance fluids for pressure support which Further worsening the anasarca but also necessary for blood pressure support. Albumin is trending down as low as 1.8 Per I's and O's, is maintaining fluid positive status daily with diminished urinary output Started a trial of IV albumin on 07/01, not much improvement in BP Consider d/c after 5 days Due to low BP, trial of Lasix is still somewhat contraindicated. (2) Anasarca Assessment/Plan: As above, severe anasarca with very low albumin Unclear how much of this is baseline as patient apparently has had this prior to admission but likely much worse now No clear single organ system to explain this, as there is no evidence of liver cirrhosis, diastolic dysfunction does not seem to be enough to explain this, and likely this is at least some a consequence of aggressive IV fluid resuscitation in the setting of septic shock As above, trial of albumin IV (3) On mechanically assisted ventilation Assessment/Plan: Doing somewhat better. On minimal vent settings today. Discussed with RT for trial of CPAP. If blood pressure improves, can consider possible extubation in 1 to 2 days (4) Perforated duodenal ulcer Assessment/Plan: Surgery is primary on this patient and managing the perforated viscus Wound looks good Currently showing no evidence off bleeding, or expansion of perforation (5) Hypothyroidism Qualifiers: Hypothyroidism type: acquired Qualified Code(s): E03.9 - Hypothyroidism, unspecified Assessment/Plan: Not taking p.o., so therefore not taking levothyroxine TSH and Free T4 normal (6) Schizophrenia Qualifiers: Schizophrenia type: schizophreniform disorder Qualified Code(s): F20.81 - Schizophreniform disorder - Current Meds Current Meds: Current Medications Generic Name Dose Route Start Last Admin Trade Name Freq PRN Reason Stop Dose Admin Calcium Carbonate/Glycine 500 mg 07/02/21 21:00 07/03/21 10:25 Calcium Carbonate Chew 500 Mg Tablet PO 500 mg BID JULIETA Administration Chlorhexidine Gluconate 15 ml 06/27/21 21:00 07/03/21 10:30 Chlorhexidine Gluconate 15 Ml Udc PO 15 ml BID JULIETA Administration Enoxaparin Sodium 40 mg 06/28/21 09:00 07/03/21 10:25 Enoxaparin 40 Mg/0.4 Ml Syringe SUBQ 40 mg DAILY JULIETA Administration Glycopyrrolate 0.2 mg 06/28/21 21:17 06/29/21 09:46 Glycopyrrolate 1 Mg/5 Ml Vial SUBQ 0.2 mg Q6H PRN Administration Excessive Secretions Hydromorphone HCl 1 mg 06/27/21 10:08 07/02/21 22:27 Hydromorphone 1 Mg/Ml Carpuject IVP 1 mg Q2H PRN Administration PAIN Fluconazole 100 mls @ 100 mls/hr 06/27/21 09:00 07/03/21 12:10 Diflucan 200 Mg/100 Ml IV 100 mls/hr DAILY JULIETA Administration Norepinephrine Bitartrate 8 mg 250 mls @ 15 mls/hr 06/26/21 23:00 07/03/21 12:00 / Dextrose IV 3 mcg/min .[id number] JULIETA 5.625 mls/hr Titration Protocol 8 MCG/MIN Sodium Chloride 500 mls @ 20 mls/hr 06/26/21 23:03 06/30/21 19:27 Normal Saline 0.9% IV Infused Q24H PRN Infusion TKO RATE Dexmedetomidine HCl 400 mcg/ 100 mls @ 8.3 mls/hr 06/27/21 18:00 07/03/21 12:00 Sodium Chloride IV 1.2 mcg/kg/hr .Q12H3M JULIETA 24.9 mls/hr Titration Protocol 0.4 MCG/KG/HR Multivitamins 10 ml/ TRACE 2,011 mls @ 75 mls/hr 06/27/21 19:00 07/03/21 12:00 ELEMENTS 1 ml/ Amino Ac/ IV 75 mls/hr Electrol/Dextrose/Calcium Q24H JULIETA Infusion Protocol Fat Emulsion Intravenous 250 mls @ 21 mls/hr 06/27/21 19:00 07/03/21 07:35 Intralipid 20% IV Infused Q24H JULIETA Infusion Cefepime HCl 2 gm/ Sodium 100 mls @ 200 mls/hr 06/27/21 18:00 07/03/21 09:00 Chloride IV Infused BID JULIETA Infusion Acetaminophen 100 mls @ 400 mls/hr 06/28/21 10:21 06/28/21 23:41 Ofirmev IV Infused Q6H PRN Infusion pain Metronidazole 500 mg in 100 mls @ 100 mls/hr 06/29/21 09:00 07/03/21 10:20 Flagyl 500 Mg/100 Ml IV Infused Q8H JULIETA Infusion Albumin Human 12.5 gm in 50 mls @ 50 mls/hr 07/01/21 15:00 07/03/21 07:06 Albuminar-25 IV Infused TID JULIETA Infusion Levothyroxine Sodium 130 mcg 07/01/21 07:00 07/01/21 06:41 Levothyroxine 100 Mcg Vial IVP 130 mcg MoTh@0700 JULIETA Administration Lorazepam 0.5 mg 06/26/21 20:54 06/28/21 23:16 Lorazepam 2 Mg/Ml Vial IVP 0.5 mg Q1H PRN Administration Anxiety Midazolam HCl 2 mg 06/28/21 00:24 07/02/21 15:06 Midazolam 2 Mg/2 Ml Vial IVP 2 mg Q2H PRN Administration Agitation Pantoprazole Sodium 40 mg 06/27/21 07:00 07/03/21 06:04 Pantoprazole 40 Mg Vial IVP 40 mg QDAC JULIETA Administration Scopolamine HBr 1 patch 07/03/21 11:00 07/03/21 11:30 Scopolamine Patch TOP 1 patch Q3D JULIETA Administration Sodium Chloride 10 ml 06/27/21 01:00 07/03/21 10:30 Sodium Chloride Flush 0.9% 10 Ml Syringe IVP 10 ml 0100,0900,1700 JULIETA Administration Sodium Chloride 10 ml 06/26/21 20:54 06/27/21 06:16 Sodium Chloride Flush 0.9% 10 Ml Syringe IVP 10 ml PRN PRN Administration NEEDED PER PROVIDER ORDERS Sodium Chloride 20 ml 06/26/21 23:03 06/27/21 04:16 Sodium Chloride Flush 0.9% 10 Ml Syringe IVP 20 ml PRN PRN Administration After Blood Draw Sodium Phosphate 250 mg 07/02/21 17:00 07/03/21 12:10 Neutra-Phos 250 Mg Tablet PO 250 mg TIDWM [facility] Administration - Lab Result Fish Bone Diagrams: 07/03/21 07:30 07/03/21 07:30 - Additional Planning My Orders: My Active Orders 07/02/21 17:00 Neutra-Phos [K-Phos Neutral] 250 mg PO TIDWM 07/02/21 21:00 Calcium Carbonate [Tums] 500 mg PO BID 07/03/21 11:00 Scopolamine Patch [Transderm-Scop] 1 patch TOP Q3D 07/04/21 05:00 CBC W/O DIFF (HEMOGRAM) [HEME] DAILYLAB CMP [COMPREHENSIVE METABOLIC PANEL] [CHEM] DAILYLAB CRP - C-REACTIVE PROTEIN [CHEM] DAILYLAB MAGNESIUM [CHEM] DAILYLAB PHOSPHORUS [CHEM] DAILYLAB 07/04/21 09:00 Chest 1 View X-Ray [XR] DAILY IRON TIBC PANEL [CHEM] DAILY 07/05/21 05:00 CBC W/O DIFF (HEMOGRAM) [HEME] DAILYLAB CMP [COMPREHENSIVE METABOLIC PANEL] [CHEM] DAILYLAB MAGNESIUM [CHEM] DAILYLAB PHOSPHORUS [CHEM] DAILYLAB 07/05/21 09:00 Chest 1 View X-Ray [XR] DAILY 07/06/21 05:00 CBC W/O DIFF (HEMOGRAM) [HEME] DAILYLAB CMP [COMPREHENSIVE METABOLIC PANEL] [CHEM] DAILYLAB MAGNESIUM [CHEM] DAILYLAB PHOSPHORUS [CHEM] DAILYLAB 07/06/21 09:00 Chest 1 View X-Ray [XR] DAILY 07/07/21 05:00 CBC W/O DIFF (HEMOGRAM) [HEME] DAILYLAB CMP [COMPREHENSIVE METABOLIC PANEL] [CHEM] DAILYLAB MAGNESIUM [CHEM] DAILYLAB PHOSPHORUS [CHEM] DAILYLAB Subjective - Subjective Patient Reports: Other (Patient sedated) Objective Vital Signs: Vital Signs - 24 hr 07/02/21 07/02/21 07/02/21 15:00 16:00 17:00 Temperature 37.4 C Heart Rate 70 Heart Rate [ 72 70 70 Monitoring electrodes] Respiratory 20 17 19 Rate Blood Pressure 104/60 94/46 L 92/51 L [Left Brachial artery] O2 Saturation 100 100 100 07/02/21 07/02/21 07/02/21 18:00 19:00 20:00 Temperature 37.1 C Heart Rate Heart Rate [ 70 72 70 Monitoring electrodes] Respiratory 13 18 18 Rate Blood Pressure 89/51 L 96/53 L 98/53 L [Left Brachial artery] O2 Saturation 100 100 100 07/02/21 07/02/21 07/02/21 20:15 21:00 22:00 Temperature Heart Rate 70 Heart Rate [ 70 70 Monitoring electrodes] Respiratory 22 17 Rate Blood Pressure 93/72 101/54 L [Left Brachial artery] O2 Saturation 100 100 07/02/21 07/02/21 07/03/21 23:00 23:20 00:00 Temperature 36.9 C Heart Rate 75 Heart Rate [ 70 70 Monitoring electrodes] Respiratory 22 18 Rate Blood Pressure 108/65 106/55 L [Left Brachial artery] O2 Saturation 100 100 07/03/21 07/03/21 07/03/21 01:00 01:30 02:00 Temperature Heart Rate 70 Heart Rate [ 70 70 Monitoring electrodes] Respiratory 18 18 Rate Blood Pressure 107/52 L 103/54 L [Left Brachial artery] O2 Saturation 100 100 07/03/21 07/03/21 07/03/21 03:00 03:20 04:00 Temperature 36.7 C Heart Rate 70 Heart Rate [ 70 70 Monitoring electrodes] Respiratory 17 18 Rate Blood Pressure 103/67 96/55 L [Left Brachial artery] O2 Saturation 100 100 07/03/21 07/03/21 07/03/21 05:00 05:25 06:00 Temperature Heart Rate 70 Heart Rate [ 70 70 Monitoring electrodes] Respiratory 18 20 Rate Blood Pressure 98/53 L 82/71 L [Left Brachial artery] O2 Saturation 100 98 07/03/21 07/03/21 07/03/21 07:00 07:50 08:00 Temperature Heart Rate 70 Heart Rate [ 70 70 Monitoring electrodes] Respiratory 18 17 Rate Blood Pressure 98/55 L 102/53 L [Left Brachial artery] O2 Saturation 100 100 07/03/21 07/03/21 07/03/21 09:00 09:30 10:00 Temperature 37 C Heart Rate 70 Heart Rate [ 70 70 Monitoring electrodes] Respiratory 20 20 Rate Blood Pressure 97/51 L 101/51 L [Left Brachial artery] O2 Saturation 100 100 07/03/21 07/03/21 07/03/21 11:00 11:20 12:00 Temperature Heart Rate 70 Heart Rate [ 70 71 Monitoring electrodes] Respiratory 18 21 Rate Blood Pressure 97/51 L 98/51 L [Left Brachial artery] O2 Saturation 100 97 07/03/21 13:20 Temperature Heart Rate 70 Heart Rate [ Monitoring electrodes] Respiratory Rate Blood Pressure [Left Brachial artery] O2 Saturation Oxygen O2 Source Mechanical ventilator I&O (Last 24 Hrs): Intake and Output Totals x24h 07/01/21 07/02/21 07/03/21 23:59 23:59 23:59 Intake Total 3446.813 3422.273 2300.317 Output Total 1576 1392 968 Balance 3041.968 3376.273 1332.317 General: Other (Chemically sedated, but at times responsive and following commands. Apparently had even sat up earlier today) HEENT: Atraumatic Neuro: Non Focal Cardiovascular: Normal S1, Normal S2 Respiratory: No respiratory distress (Diminished breath sounds with few fine crackles throughout both lung salter) Abdomen: Normal bowel sounds, Soft, No tenderness, No hepatospenomegaly, No masses Extremities: Other (Generalized anasarca with massive lower extremity edema) - Results Results: Laboratory Results WBC 8.0 x10^3/uL (4.8-10.8) 07/03/21 07:30 RBC 2.91 10^6/uL (4.20-5.40) L 07/03/21 07:30 Hgb 8.6 g/dL (12.0-16.0) L 07/03/21 07:30 Hct 27.6 % (37.0-47.0) L 07/03/21 07:30 MCV 94.8 fL (81.0-99.0) 07/03/21 07:30 MCH 29.6 pg (27.0-31.0) 07/03/21 07:30 MCHC 31.2 g/dL (32.0-36.0) L 07/03/21 07:30 RDW 19.7 % (12.0-15.0) H 07/03/21 07:30 Plt Count 195 10^3/uL (130-450) 07/03/21 07:30 MPV 12.2 fL (7.9-10.8) H 07/03/21 07:30 Neut # (Auto) 5.9 10^3/uL (1.5-6.6) 07/03/21 07:30 Lymph # (Auto) 1.0 10^3/uL (1.5-3.5) L 07/03/21 07:30 [place] # (Auto) 0.6 10^3/uL (0.0-1.0) 07/03/21 07:30 Eos # (Auto) 0.5 10^3/uL (0.0-0.7) 07/03/21 07:30 Baso # (Auto) 0.0 10^3/uL (0.0-0.1) 07/03/21 07:30 Absolute Nucleated RBC 0.00 x10^3/uL 07/03/21 07:30 Total Counted 100 06/27/21 04:20 Band Neuts % (Manual) 26 % (0-10) H 06/27/21 04:20 Abnorm Lymph % (Manual) 0 % 06/27/21 04:20 Nucleated RBC % 0.0 /100WBC 07/03/21 07:30 Neutrophils # (Manual) 11.3 10^3/uL (1.5-6.6) H 06/27/21 04:20 Lymphocytes # (Manual) 1.1 10^3/uL (1.5-3.5) L 06/27/21 04:20 Monocytes # (Manual) 0.1 10^3/uL (0.0-1.0) 06/27/21 04:20 Eosinophils # (Manual) 0.0 10^3/uL (0-0.7) 06/27/21 04:20 Basophils # (Manual) 0.0 10^3/uL (0-0.1) 06/27/21 04:20 Differential Comment MANUAL DIFFERENTIAL 06/27/21 04:20 Manual Slide Review Indicated 07/01/21 05:34 WBC Morphology NORMAL APPEARANCE (NORMAL) 07/01/21 05:34 Platelet Estimate NORMAL (130-450,000) (NORMAL) 07/01/21 05:34 Platelet Morphology NORMAL APPEARANCE (NORMAL) 07/01/21 05:34 RBC Morph Micro Appear 1+ ANISOCYTOSIS (NORMAL) 07/01/21 05:34 Bld Gas Analysis Time 0344 06/30/21 03:38 Sample Site LEFT RADIAL 06/30/21 03:38 ABG pH 7.45 (7.35-7.45) 06/30/21 03:38 ABG pCO2 35 mmHg (34-45) 06/30/21 03:38 ABG pO2 94 mmHg (80-100) 06/30/21 03:38 ABG HCO3 23.8 mmol/L (22.0-26.0) 06/30/21 03:38 ABG Total CO2 24.9 MMOL/L (21.0-29.0) 06/30/21 03:38 ABG O2 Saturation 97 % (94-98) 06/30/21 03:38 ABG Base Excess 0.0 mmol/L (-2.0-3.0) 06/30/21 03:38 Ruperto Test POSITIVE 06/30/21 03:38 VBG pH 7.311 (7.31-7.41) 07/02/21 04:42 Ionized Calcium 1.16 mmol/L (1.15-1.33) 07/02/21 04:42 Respiration Rate 16 b/min 06/30/21 03:38 O2 Delivery Device VENTILATOR 06/30/21 03:38 Vent Mode ASSIST/CONTROL 06/30/21 03:38 FiO2 30.00 06/30/21 03:38 Tidal Volume 400 mL 06/30/21 03:38 PEEP 5 cmH2O 06/30/21 03:38 Pressure Support Vent 10 cmH2O 06/27/21 05:43 IPAP Not Reportable 06/27/21 05:43 Sodium 135 mmol/L (135-145) 07/03/21 07:30 Potassium 4.4 mmol/L (3.5-5.0) 07/03/21 07:30 Chloride 110 mmol/L (101-111) 07/03/21 07:30 Carbon Dioxide 20 mmol/L (21-32) L 07/03/21 07:30 Anion Gap 5.0 (6-13) L 07/03/21 07:30 BUN 23 mg/dL (6-20) H 07/03/21 07:30 Creatinine 0.6 mg/dL (0.4-1.0) 07/03/21 07:30 Estimated GFR (MDRD) 96 (>89) 07/03/21 07:30 Glucose 149 mg/dL (70-100) H 07/03/21 07:30 Lactic Acid 1.6 mmol/L (0.5-2.2) 06/27/21 21:01 Calcium 8.0 mg/dL (8.5-10.3) L 07/03/21 07:30 Phosphorus 2.4 mg/dL (2.5-4.6) L 07/02/21 04:42 Magnesium 1.9 mg/dL (1.7-2.8) 07/02/21 04:42 Total Bilirubin 0.4 mg/dL (0.2-1.0) 07/02/21 04:42 AST 12 IU/L (10-42) 07/02/21 04:42 ALT < 10 IU/L (10-60) L 07/02/21 04:42 Alkaline Phosphatase 65 IU/L (42-121) 07/02/21 04:42 Troponin I High Sens 99.6 ng/L (2.3-14.8) H* 06/27/21 08:08 C-Reactive Protein 8.0 mg/dL (0-1.0) H 07/03/21 04:48 B-Natriuretic Peptide 919 pg/mL (5-100) H 07/03/21 07:30 Total Protein 5.1 g/dL (6.7-8.2) L 07/02/21 04:42 Albumin 2.1 g/dL (3.2-5.5) L 07/02/21 04:42 Globulin 3.0 g/dL (2.1-4.2) 07/02/21 04:42 Albumin/Globulin Ratio 0.7 (1.0-2.2) L 07/02/21 04:42 Prealbumin 11 mg/dL (18-45) L 07/02/21 04:42 Triglycerides 79 mg/dL (-149) 07/02/21 04:42 Lipase 42 U/L (22-51) 06/26/21 14:26 TSH 3.29 uIU/mL (0.34-5.60) 07/02/21 04:42 Free T4 0.97 ng/dL (0.58-1.64) 07/02/21 04:42 Urine Color YELLOW 06/26/21 22:51 Urine Clarity CLEAR (CLEAR) 06/26/21 22:51 Urine pH 5.0 PH (5.0-7.5) 06/26/21 22:51 Ur Specific [place] 1.015 (1.002-1.030) 06/26/21 22:51 Urine Protein NEGATIVE mg/dL (NEGATIVE) 06/26/21 22:51 Urine Glucose (UA) NEGATIVE mg/dL (NEGATIVE) 06/26/21 22:51 Urine Ketones NEGATIVE mg/dL (NEGATIVE) 06/26/21 22:51 Urine Occult Blood NEGATIVE (NEGATIVE) 06/26/21 22:51 Urine Nitrite NEGATIVE (NEGATIVE) 06/26/21 22:51 Urine Bilirubin NEGATIVE (NEGATIVE) 06/26/21 22:51 Urine Urobilinogen 0.2 (NORMAL) E.U./dL (NORMAL) 06/26/21 22:51 Ur Leukocyte Esterase TRACE (NEGATIVE) H 06/26/21 22:51 Urine RBC 0-5 /HPF (0-5) 06/26/21 22:51 Urine WBC 4-5 /HPF (0-5) 06/26/21 22:51 Ur Squamous Epith Cells FEW Squamous (<= Few) 06/26/21 22:51 Urine Bacteria Few /HPF (None Seen) 06/26/21 22:51 Urine Casts 3-5 Hyaline Casts /LPF 06/26/21 22:51 Ur Microscopic Review INDICATED 06/26/21 22:51 Urine Culture Comments INDICATED 06/26/21 22:51 Nasal Adenovirus (PCR) NOT DETECTED 06/27/21 01:23 Nasal B. parapertussis DNA (PCR) NOT DETECTED 06/27/21 01:23 Nasal Coronavir 229E PCR NOT DETECTED 06/27/21 01:23 Nasal Coronavir HKU1 PCR NOT DETECTED 06/27/21 01:23 Nasal Coronavir NL63 PCR NOT DETECTED 06/27/21 01:23 Nasal Coronavir OC43 PCR NOT DETECTED 06/27/21 01:23 Nasal Enterovir/Rhinovir PCR NOT DETECTED 06/27/21 01:23 Nasal Influenza B PCR NOT DETECTED 06/27/21 01:23 Nasal Influenza A PCR NOT DETECTED 06/27/21 01:23 Nasal Parainfluen 1 PCR NOT DETECTED 06/27/21 01:23 Nasal Parainfluen 2 PCR NOT DETECTED 06/27/21 01:23 Nasal Parainfluen 3 PCR NOT DETECTED 06/27/21 01:23 Nasal Parainfluen 4 PCR NOT DETECTED 06/27/21 01:23 Nasal RSV (PCR) NOT DETECTED 06/27/21 01:23 Nasal Screen MRSA (PCR) NEGATIVE (NEGATIVE) 06/26/21 21:55 Nasal B.pertussis DNA PCR NOT DETECTED 06/27/21 01:23 Nasal C.pneumoniae (PCR) NOT DETECTED 06/27/21 01:23 Mk Human Metapneumo PCR NOT DETECTED 06/27/21 01:23 Nasal M.pneumoniae (PCR) NOT DETECTED 06/27/21 01:23 Nasal SARS-CoV-2 (PCR) DETECTED A 06/27/21 01:23 - Procedures Procedures: Procedures RESPIRATORY VENTILATION, LESS THAN 24 CONSECUTIVE HOURS (01/11/20) Sepsis Event Note (H) - Evaluation Current Stage of Sepsis: Septic shock Possible source of Sepsis: positive: GI tract/intra-abdominal - Sepsis Criteria Sepsis Criteria: WBC count greater than 10% bands, SBP drop more than 40mHg, MAP less than 65 mmHg, SBP less than 90 mmHg, Renal: urine output less than 0.5ml/kg/hr for 2 hours or creatinine gr, Metabolic: lactate > 2 mmol/L ABX Reporting Has patient been on IV antibiotics over the past 48 hours?: Yes Current Medications - Current Medications Current Medications: Current Medications Generic Name Dose Route Start Last Admin Trade Name Freq PRN Reason Stop Dose Admin Calcium Carbonate/Glycine 500 mg 07/02/21 21:00 07/03/21 10:25 Calcium Carbonate Chew 500 Mg Tablet PO 500 mg BID JULIETA Administration Chlorhexidine Gluconate 15 ml 06/27/21 21:00 07/03/21 10:30 Chlorhexidine Gluconate 15 Ml Udc PO 15 ml BID JULIETA Administration Enoxaparin Sodium 40 mg 06/28/21 09:00 07/03/21 10:25 Enoxaparin 40 Mg/0.4 Ml Syringe SUBQ 40 mg DAILY JULIETA Administration Glycopyrrolate 0.2 mg 06/28/21 21:17 06/29/21 09:46 Glycopyrrolate 1 Mg/5 Ml Vial SUBQ 0.2 mg Q6H PRN Administration Excessive Secretions Hydromorphone HCl 1 mg 06/27/21 10:08 07/02/21 22:27 Hydromorphone 1 Mg/Ml Carpuject IVP 1 mg Q2H PRN Administration PAIN Fluconazole 100 mls @ 100 mls/hr 06/27/21 09:00 07/03/21 12:10 Diflucan 200 Mg/100 Ml IV 100 mls/hr DAILY JULIETA Administration Norepinephrine Bitartrate 8 mg 250 mls @ 15 mls/hr 06/26/21 23:00 07/03/21 12:00 / Dextrose IV 3 mcg/min .[id number] JULIETA 5.625 mls/hr Titration Protocol 8 MCG/MIN Sodium Chloride 500 mls @ 20 mls/hr 06/26/21 23:03 06/30/21 19:27 Normal Saline 0.9% IV Infused Q24H PRN Infusion TKO RATE Dexmedetomidine HCl 400 mcg/ 100 mls @ 8.3 mls/hr 06/27/21 18:00 07/03/21 12:00 Sodium Chloride IV 1.2 mcg/kg/hr .Q12H3M JULIETA 24.9 mls/hr Titration Protocol 0.4 MCG/KG/HR Multivitamins 10 ml/ TRACE 2,011 mls @ 75 mls/hr 06/27/21 19:00 07/03/21 12:00 ELEMENTS 1 ml/ Amino Ac/ IV 75 mls/hr Electrol/Dextrose/Calcium Q24H JULIETA Infusion Protocol Fat Emulsion Intravenous 250 mls @ 21 mls/hr 06/27/21 19:00 07/03/21 07:35 Intralipid 20% IV Infused Q24H JULIETA Infusion Cefepime HCl 2 gm/ Sodium 100 mls @ 200 mls/hr 06/27/21 18:00 07/03/21 09:00 Chloride IV Infused BID JULIETA Infusion Acetaminophen 100 mls @ 400 mls/hr 06/28/21 10:21 06/28/21 23:41 Ofirmev IV Infused Q6H PRN Infusion pain Metronidazole 500 mg in 100 mls @ 100 mls/hr 06/29/21 09:00 07/03/21 10:20 Flagyl 500 Mg/100 Ml IV Infused Q8H JULIETA Infusion Albumin Human 12.5 gm in 50 mls @ 50 mls/hr 07/01/21 15:00 07/03/21 07:06 Albuminar-25 IV Infused TID JULIETA Infusion Levothyroxine Sodium 130 mcg 07/01/21 07:00 07/01/21 06:41 Levothyroxine 100 Mcg Vial IVP 130 mcg MoTh@0700 JULIETA Administration Lorazepam 0.5 mg 06/26/21 20:54 06/28/21 23:16 Lorazepam 2 Mg/Ml Vial IVP 0.5 mg Q1H PRN Administration Anxiety Midazolam HCl 2 mg 06/28/21 00:24 07/02/21 15:06 Midazolam 2 Mg/2 Ml Vial IVP 2 mg Q2H PRN Administration Agitation Pantoprazole Sodium 40 mg 06/27/21 07:00 07/03/21 06:04 Pantoprazole 40 Mg Vial IVP 40 mg QDAC JULIETA Administration Scopolamine HBr 1 patch 07/03/21 11:00 07/03/21 11:30 Scopolamine Patch TOP 1 patch Q3D JULIETA Administration Sodium Chloride 10 ml 06/27/21 01:00 07/03/21 10:30 Sodium Chloride Flush 0.9% 10 Ml Syringe IVP 10 ml 0100,0900,1700 JULIETA Administration Sodium Chloride 10 ml 06/26/21 20:54 06/27/21 06:16 Sodium Chloride Flush 0.9% 10 Ml Syringe IVP 10 ml PRN PRN Administration NEEDED PER PROVIDER ORDERS Sodium Chloride 20 ml 06/26/21 23:03 06/27/21 04:16 Sodium Chloride Flush 0.9% 10 Ml Syringe IVP 20 ml PRN PRN Administration After Blood Draw Sodium Phosphate 250 mg 07/02/21 17:00 07/03/21 12:10 Neutra-Phos 250 Mg Tablet PO 250 mg TIDWM JULIETA Administration
[2021-07-03 15:03] LABS: ABG BASE EXCESS -2.2 mmol/L (-2.0-3.0); ABG HCO3 21.8 mmol/L (22.0-26.0); ABG OXYGEN SATURATION 97 % (94-98); ABG PCO2 34 mmHg (34-45); ABG PH 7.42 (7.35-7.45); ABG PO2 93 mmHg (80-100); ABG TCO2 22.9 MMOL/L (21.0-29.0)
[2021-07-03 15:04] LABS: ABG MODE OF VENTILATION CPAP; ALLEN TEST POSITIVE
[2021-07-03] MEDS: TPN (CLINIMIX E 5/15) 2,000 ML with MULTIVITAMIN 10 ML, TRACE ELEMENTS 1 ML IV SCH ×3 (18:25)
[2021-07-03] MEDS: FAT EMULSION 20% 250 ML IV SCH (18:25)
[2021-07-03] MEDS: GLYCOPYRROLATE 1 MG/5 ML VIAL SUBQ PRN (22:07)
[2021-07-03] MEDS: HYDROmorphone 1 MG/ML CARPUJECT IVP PRN (22:09)
[2021-07-04] MEDS: MIDAZOLAM 2 MG/2 ML VIAL IVP PRN (00:23)
[2021-07-04] MEDS: HYDROmorphone 1 MG/ML CARPUJECT IVP PRN ×6 (00:29→22:17)
[2021-07-04] MEDS: metroNIDAZOLE 500 MG/100 ML 500 MG/100 ML BAG IV SCH ×3 (00:32→17:31)
[2021-07-04] MEDS: SODIUM CHLORIDE FLUSH 0.9% 10 ML SYRINGE IVP SCH ×4 (00:37→19:23)
[2021-07-04] MEDS: LORazepam 2 MG/ML VIAL IVP PRN ×5 (02:34→22:17)
[2021-07-04] MEDS: DEXMEDETOMIDINE 400 MCG in SODIUM CHLORIDE 0.9% 100ML 96 ML IV SCH ×7 (03:37→22:06)
[2021-07-04 05:14] LABS: ALBUMIN 2.3 g/dL (3.2-5.5); ALBUMIN/GLOBULIN RATIO 0.9 (1.0-2.2); ALKALINE PHOSPHATASE 80 IU/L (42-121); ALT ALANINE AMINOTRANSFERASE 13 IU/L (10-60); AST ASPARTATE AMINOTRANSFERASE 18 IU/L (10-42); BILIRUBIN,TOTAL 0.4 mg/dL (0.2-1.0); BUN - BLOOD UREA NITROGEN 21 mg/dL (6-20); CARBON DIOXIDE - CO2 22 mmol/L (21-32); CHLORIDE 110 mmol/L (101-111); CREATININE 0.6 mg/dL (0.4-1.0); GFR - MDRD 96 (>89); GLUCOSE 150 mg/dL (70-100); IONIZED CALCIUM IF INDICATED YES; POTASSIUM 4.1 mmol/L (3.5-5.0); SODIUM 137 mmol/L (135-145); TOTAL PROTEIN 4.8 g/dL (6.7-8.2)
[2021-07-04 05:16] LABS: CALCIUM, IONIZED 1.16 mmol/L (1.15-1.33); VBG PH 7.344 (7.31-7.41)
[2021-07-04 05:21] LABS: ALBUMIN 2.4 g/dL (3.2-5.5); BILIRUBIN,TOTAL 0.4 mg/dL (0.2-1.0); CREATININE 0.5 mg/dL (0.4-1.0); CRP - C-REACTIVE PROTEIN 7.1 mg/dL (0-1.0); PHOSPHORUS 2.3 mg/dL (2.5-4.6); TOTAL PROTEIN 4.8 g/dL (6.7-8.2)
[2021-07-04 05:25] LABS: HCT - HEMATOCRIT 24.6 % (37.0-47.0); HGB - HEMOGLOBIN 7.8 g/dL (12.0-16.0); MEAN CORPUSCULAR HEMOGLOBIN 29.4 pg (27.0-31.0); MEAN CORPUSCULAR HGB CONC 31.7 g/dL (32.0-36.0); MEAN CORPUSCULAR VOLUME 92.8 fL (81.0-99.0); MEAN PLATELET VOLUME 12.2 fL (7.9-10.8); RED BLOOD COUNT 2.65 10^6/uL (4.20-5.40); RED CELL DISTRIBUTION WIDTH 19.5 % (12.0-15.0); WHITE BLOOD COUNT 6.3 x10^3/uL (4.8-10.8)
[2021-07-04] MEDS: ALBUMIN 25% 12.5 GM/50 ML VIAL IV SCH (05:30)
[2021-07-04 05:39] LABS: % IRON SATURATION 10 % (20-50); IRON 11 ug/dL (28-170); TOTAL IRON BINDING CAPACITY 115 ug/dL (250-450); TRANSFERRIN 82 mg/dL (192-382)
[2021-07-04] MEDS: PANTOPRAZOLE 40 MG VIAL IVP SCH (06:07)
[2021-07-04] MEDS: LEVOTHYROXINE 100 MCG VIAL IVP SCH (06:07)
[2021-07-04] MEDS: CEFEPIME 2 GM in SODIUM CHLORIDE 0.9% MINIBAG 100 ML IV SCH ×2 (08:00→20:46)
[2021-07-04] MEDS: NEUTRA-PHOS 250 MG TABLET PO SCH ×3 (08:08→17:00)
[2021-07-04] MEDS: CHLORHEXIDINE GLUCONATE 15 ML UDC PO SCH ×2 (08:08→20:46)
[2021-07-04] MEDS: CALCIUM CARBONATE CHEW 500 MG TABLET PO SCH ×2 (08:08→20:46)
[2021-07-04] MEDS: GLYCOPYRROLATE 1 MG/5 ML VIAL SUBQ PRN ×2 (08:10→16:00)
[2021-07-04] MEDS: ENOXAPARIN 40 MG/0.4 ML SYRINGE SUBQ SCH (08:10)
[2021-07-04] MEDS: FLUCONAZOLE 200 MG/100 ML 100 ML IV SCH (08:45)
--- NOTE | 2021-07-04 08:57 | XRAY Report ---
PROCEDURE: Chest 1 View X-Ray INDICATIONS: Intubated, Follow up TECHNIQUE: One view of the chest was acquired. COMPARISON: July 03, 2021 FINDINGS: SUPPORT DEVICES: Redemonstrated support devices, grossly unchanged. LUNG/PLEURA: Persistent bilateral airspace opacities, right greater than left. No pneumothorax. MEDIASTINUM: Prominence of the cardiac mediastinal silhouette, partially exaggerated by technique. BONES/SOFT TISSUES: No acute abnormality. IMPRESSION: 1.No significant interval change. Reviewed by: Bonifacio Worley MD on 07/04/2021 8:56 AM PDT Approved by: Bonifacio Worley MD on 07/04/2021 8:56 AM PDT Station ID: [id number]
[2021-07-04] MEDS ORDERED: LEVALBUTEROL 1.25 MG/3 ML NEB INH ONE (09:39)
[2021-07-04] MEDS: SODIUM CHLORIDE FLUSH 0.9% 10 ML SYRINGE IVP PRN ×2 (09:45→22:17)
[2021-07-04] MEDS: IRON DEXTRAN 200 MG in SODIUM CHLORIDE 0.9% 100ML 100 ML IV SCH (11:00)
--- NOTE | 2021-07-04 12:30 | PROVIDER PROGRESS NOTE ---
Subjective - Prog Note Date Prog Note Date: 07/04/21 Objective - Vital Signs/Intake & Output Reviewed Vital Signs: Yes Vital Signs: Vital Signs x48h Temp Pulse Pulse Resp BP Pulse Ox 07/04/21 12:00 70 18 95/51 L 100 07/04/21 11:00 36.6 C 70 18 94/49 L 100 07/04/21 10:00 70 22 95/47 L 100 07/04/21 09:48 84 07/04/21 09:00 75 18 109/75 100 07/04/21 08:00 36.4 C L 70 16 88/53 L 100 07/04/21 07:39 70 07/04/21 07:00 70 18 99/53 L 100 07/04/21 06:00 70 17 104/56 L 100 07/04/21 05:43 72 07/04/21 05:00 36.6 C 70 20 103/57 L 100 Intake & Output: Intake & Output 07/01/21 07/02/21 07/03/21 07/04/21 23:59 23:59 23:59 23:59 Intake Total 3446.813 3422.273 3386.602 2594.316 Output Total 1576 1392 1739 1020 Balance 7073.076 6754.273 2436.795 0854.316 - Objective General Appearance: positive: No acute distress Abdomen: positive: Non-tender, No distention, Other (ngt dark to green) - Lab Results Fish Bones: 07/04/21 04:43 07/04/21 04:43 Other Labs: Lab Results x24hrs 07/04/21 07/04/21 07/04/21 Range/Units 04:43 04:43 04:43 WBC (4.8-10.8) x10^3/uL RBC (4.20-5.40) 10^6/uL Hgb (12.0-16.0) g/dL Hct (37.0-47.0) % MCV (81.0-99.0) fL MCH (27.0-31.0) pg MCHC (32.0-36.0) g/dL RDW (12.0-15.0) % Plt Count (130-450) 10^3/uL MPV (7.9-10.8) fL Bld Gas Analysis Time Sample Site ABG pH (7.35-7.45) ABG pCO2 (34-45) mmHg ABG pO2 (80-100) mmHg ABG HCO3 (22.0-26.0) mmol/L ABG Total CO2 (21.0-29.0) MMOL/L ABG O2 Saturation (94-98) % ABG Base Excess (-2.0-3.0) mmol/L Ruperto Test VBG pH 7.344 (7.31-7.41) Ionized Calcium 1.16 YES (1.15-1.33) mmol/L O2 Delivery Device Vent Mode FiO2 PEEP cmH2O Pressure Support Vent cmH2O Sodium 137 (135-145) mmol/L Potassium 4.1 (3.5-5.0) mmol/L Chloride 110 (101-111) mmol/L Carbon Dioxide 22 (21-32) mmol/L Anion Gap 5.0 L (6-13) BUN 21 H (6-20) mg/dL Creatinine 0.6 (0.4-1.0) mg/dL Estimated GFR (MDRD) 96 (>89) Glucose 150 H (70-100) mg/dL Calcium 8.0 L (8.5-10.3) mg/dL Phosphorus (2.5-4.6) mg/dL Magnesium (1.7-2.8) mg/dL Iron 11 L (28-170) ug/dL TIBC 115 L (250-450) ug/dL % Saturation 10 L (20-50) % Transferrin 82 L (192-382) mg/dL Total Bilirubin 0.4 (0.2-1.0) mg/dL AST 18 (10-42) IU/L ALT 13 (10-60) IU/L Alkaline Phosphatase 80 (42-121) IU/L C-Reactive Protein (0-1.0) mg/dL Total Protein 4.8 L (6.7-8.2) g/dL Albumin 2.3 L (3.2-5.5) g/dL Globulin 2.5 (2.1-4.2) g/dL Albumin/Globulin Ratio 0.9 L (1.0-2.2) 07/04/21 07/04/21 07/03/21 Range/Units 04:43 04:43 14:55 WBC 6.3 (4.8-10.8) x10^3/uL RBC 2.65 L (4.20-5.40) 10^6/uL Hgb 7.8 L (12.0-16.0) g/dL Hct 24.6 L (37.0-47.0) % MCV 92.8 (81.0-99.0) fL MCH 29.4 (27.0-31.0) pg MCHC 31.7 L (32.0-36.0) g/dL RDW 19.5 H (12.0-15.0) % Plt Count 247 (130-450) 10^3/uL MPV 12.2 H (7.9-10.8) fL Bld Gas Analysis Time 1455 Sample Site LEFT RADIAL ABG pH 7.42 (7.35-7.45) ABG pCO2 34 (34-45) mmHg ABG pO2 93 (80-100) mmHg ABG HCO3 21.8 L (22.0-26.0) mmol/L ABG Total CO2 22.9 (21.0-29.0) MMOL/L ABG O2 Saturation 97 (94-98) % ABG Base Excess -2.2 L (-2.0-3.0) mmol/L Ruperto Test POSITIVE VBG pH (7.31-7.41) Ionized Calcium (1.15-1.33) mmol/L O2 Delivery Device VENTILATOR Vent Mode CPAP FiO2 30.00 PEEP 5 cmH2O Pressure Support Vent 12 cmH2O Sodium 135 (135-145) mmol/L Potassium 4.0 (3.5-5.0) mmol/L Chloride 109 (101-111) mmol/L Carbon Dioxide 22 (21-32) mmol/L Anion Gap 4.0 L (6-13) BUN 21 H (6-20) mg/dL Creatinine 0.5 (0.4-1.0) mg/dL Estimated GFR (MDRD) 119 (>89) Glucose 152 H (70-100) mg/dL Calcium 8.0 L (8.5-10.3) mg/dL Phosphorus 2.3 L (2.5-4.6) mg/dL Magnesium 2.0 (1.7-2.8) mg/dL Iron (28-170) ug/dL TIBC (250-450) ug/dL % Saturation (20-50) % Transferrin (192-382) mg/dL Total Bilirubin 0.4 (0.2-1.0) mg/dL AST 16 (10-42) IU/L ALT 13 (10-60) IU/L Alkaline Phosphatase 82 (42-121) IU/L C-Reactive Protein 7.1 H (0-1.0) mg/dL Total Protein 4.8 L (6.7-8.2) g/dL Albumin 2.4 L (3.2-5.5) g/dL Globulin 2.5 (2.1-4.2) g/dL Albumin/Globulin Ratio 1.0 (1.0-2.2) Sepsis Event Note (H) - Evaluation Current Stage of Sepsis: Septic shock Possible source of Sepsis: positive: GI tract/intra-abdominal - Sepsis Criteria Sepsis Criteria: WBC count greater than 10% bands, SBP drop more than 40mHg, MAP less than 65 mmHg, SBP less than 90 mmHg, Renal: urine output less than 0.5ml/kg/hr for 2 hours or creatinine gr, Metabolic: lactate > 2 mmol/L Assessment/Plan - Problem List (1) Perforated duodenal ulcer Impression: red blood cell count down today. recommend continue ngt to suction. I do not believe she is a candidate here at located within [facility] for further procedures such as endoscopy or additional surgery
--- NOTE | 2021-07-04 12:50 | PROVIDER PROGRESS NOTE ---
Assessment/Plan - Problem List (1) Iron deficiency anemia Assessment/Plan: H&H have been steadily dropping over the last few days. Hemoglobin today 7.8 No evidence of bleeding can be identified Iron studies done this morning show severe iron deficiency anemia Started IV iron We will discuss with general surgery if this continues to drop as we need to look for source of bleeding (2) Septic shock Assessment/Plan: Patient initially with septic shock secondary to perforated duodenal ulcer. Peritoneal fluid culture is negative Urine culture shows no growth Chest x-ray shows residual bilateral airspace opacities, Unclear if this represents infection. Currently hypotensive, requires Levophed for pressure support, today at 3 mics Intubated Since postop Suspect shock is likely multifactorial in the setting of perforated ulcer, as well as chronic anasarca with fluid redistribution and depletion of intravascular volume Is receiving maintenance fluids for pressure support which Further worsening the anasarca but also necessary for blood pressure support. Albumin has been low, 4 days of albumin did not help much. Cont to try to wean pressors (3) Anasarca Assessment/Plan: As above, severe anasarca with very low albumin Unclear how much of this is baseline as patient apparently has had this prior to admission but likely much worse now No clear single organ system to explain this, as there is no evidence of liver cirrhosis, diastolic dysfunction does not seem to be enough to explain this, and likely this is at least some a consequence of aggressive IV fluid resuscitation in the setting of septic shock Albumin IV did not help very much, will d/c this Low BP makes it difficult to diurese (4) On mechanically assisted ventilation Assessment/Plan: Has been tolerating CPAP trials somewhat well We will continue to try to wean Per facility protocol, prefers to be off pressors prior to extubation though I think at this point given she has been intubated for 8 days, I may favor extubation even while on pressors to avoid need for more invasive measures such as tracheostomy (5) Perforated duodenal ulcer Assessment/Plan: Repaired the days ago Primary Per surgery See above (6) Hypothyroidism Qualifiers: Hypothyroidism type: acquired Qualified Code(s): E03.9 - Hypothyroidism, unspecified (7) Schizophrenia Qualifiers: Schizophrenia type: schizophreniform disorder Qualified Code(s): F20.81 - Schizophreniform disorder - Current Meds Current Meds: Current Medications Generic Name Dose Route Start Last Admin Trade Name Freq PRN Reason Stop Dose Admin Calcium Carbonate/Glycine 500 mg 07/02/21 21:00 07/04/21 08:08 Calcium Carbonate Chew 500 Mg Tablet PO 500 mg BID JULIETA Administration Chlorhexidine Gluconate 15 ml 06/27/21 21:00 07/04/21 08:08 Chlorhexidine Gluconate 15 Ml Udc PO 15 ml BID JULIETA Administration Enoxaparin Sodium 40 mg 06/28/21 09:00 07/04/21 08:10 Enoxaparin 40 Mg/0.4 Ml Syringe SUBQ 40 mg DAILY JULIETA Administration Glycopyrrolate 0.2 mg 06/28/21 21:17 07/04/21 08:10 Glycopyrrolate 1 Mg/5 Ml Vial SUBQ 0.2 mg Q6H PRN Administration Excessive Secretions Hydromorphone HCl 1 mg 06/27/21 10:08 07/04/21 09:45 Hydromorphone 1 Mg/Ml Carpuject IVP 1 mg Q2H PRN Administration PAIN Fluconazole 100 mls @ 100 mls/hr 06/27/21 09:00 07/04/21 09:45 Diflucan 200 Mg/100 Ml IV Infused DAILY JULIETA Infusion Norepinephrine Bitartrate 8 mg 250 mls @ 15 mls/hr 06/26/21 23:00 07/04/21 12:00 / Dextrose IV 3 mcg/min .[id number] JULIETA 5.625 mls/hr Administration Protocol 8 MCG/MIN Sodium Chloride 500 mls @ 20 mls/hr 06/26/21 23:03 06/30/21 19:27 Normal Saline 0.9% IV Infused Q24H PRN Infusion TKO RATE Dexmedetomidine HCl 400 mcg/ 100 mls @ 8.3 mls/hr 06/27/21 18:00 07/04/21 12:00 Sodium Chloride IV 1.1 mcg/kg/hr .Q12H3M JULIETA 22.825 mls/hr Titration Protocol 0.4 MCG/KG/HR Multivitamins 10 ml/ TRACE 2,011 mls @ 75 mls/hr 06/27/21 19:00 07/04/21 12:00 ELEMENTS 1 ml/ Amino Ac/ IV 75 mls/hr Electrol/Dextrose/Calcium Q24H JULIETA Infusion Protocol Fat Emulsion Intravenous 250 mls @ 21 mls/hr 06/27/21 19:00 07/04/21 06:43 Intralipid 20% IV Infused Q24H JULIETA Infusion Cefepime HCl 2 gm/ Sodium 100 mls @ 200 mls/hr 06/27/21 18:00 07/04/21 08:30 Chloride IV Infused BID JULIETA Infusion Acetaminophen 100 mls @ 400 mls/hr 06/28/21 10:21 06/28/21 23:41 Ofirmev IV Infused Q6H PRN Infusion pain Metronidazole 500 mg in 100 mls @ 100 mls/hr 06/29/21 09:00 07/04/21 10:45 Flagyl 500 Mg/100 Ml IV Infused Q8H JULIETA Infusion Albumin Human 12.5 gm in 50 mls @ 50 mls/hr 07/01/21 15:00 07/04/21 06:44 Albuminar-25 IV Infused TID JULIETA Infusion Iron Dextran 200 mg/ Sodium 104 mls @ 104 mls/hr 07/04/21 11:00 07/04/21 12:00 Chloride IV 07/06/21 09:59 Infused DAILY JULIETA Infusion Levothyroxine Sodium 130 mcg 07/01/21 07:00 07/04/21 06:07 Levothyroxine 100 Mcg Vial IVP 130 mcg MoTh@0700 JULIETA Administration Lorazepam 0.5 mg 06/26/21 20:54 07/04/21 09:45 Lorazepam 2 Mg/Ml Vial IVP 0.5 mg Q1H PRN Administration Anxiety Midazolam HCl 2 mg 06/28/21 00:24 07/04/21 00:23 Midazolam 2 Mg/2 Ml Vial IVP 2 mg Q2H PRN Administration Agitation Pantoprazole Sodium 40 mg 06/27/21 07:00 07/04/21 06:07 Pantoprazole 40 Mg Vial IVP 40 mg QDAC JULIETA Administration Scopolamine HBr 1 patch 07/03/21 11:00 07/03/21 11:30 Scopolamine Patch TOP 1 patch Q3D JULIETA Administration Sodium Chloride 10 ml 06/27/21 01:00 07/04/21 08:07 Sodium Chloride Flush 0.9% 10 Ml Syringe IVP 10 ml [id number],[id number],1700 JULIETA Administration Sodium Chloride 10 ml 06/26/21 20:54 07/04/21 09:45 Sodium Chloride Flush 0.9% 10 Ml Syringe IVP 10 ml PRN PRN Administration NEEDED PER PROVIDER ORDERS Sodium Chloride 20 ml 06/26/21 23:03 06/27/21 04:16 Sodium Chloride Flush 0.9% 10 Ml Syringe IVP 20 ml PRN PRN Administration After Blood Draw Sodium Phosphate 250 mg 07/02/21 17:00 07/04/21 11:55 Neutra-Phos 250 Mg Tablet PO 250 mg TIDWM JULIETA Administration - Lab Result Lab results reviewed: Yes Fish Bone Diagrams: 07/04/21 04:43 07/04/21 04:43 - Additional Planning Condition/Complexity: Critical My Orders: My Active Orders 07/04/21 11:00 Iron Dextran [Infed] 200 mg Sodium Chloride 0.9% 100Ml [Normal Saline 0.9% 100Ml] 100 ml IV DAILY 07/05/21 05:00 CBC W/O DIFF (HEMOGRAM) [HEME] DAILYLAB CMP [COMPREHENSIVE METABOLIC PANEL] [CHEM] DAILYLAB MAGNESIUM [CHEM] DAILYLAB PHOSPHORUS [CHEM] DAILYLAB 07/05/21 09:00 Chest 1 View X-Ray [XR] DAILY 07/06/21 05:00 CBC W/O DIFF (HEMOGRAM) [HEME] DAILYLAB CMP [COMPREHENSIVE METABOLIC PANEL] [CHEM] DAILYLAB MAGNESIUM [CHEM] DAILYLAB PHOSPHORUS [CHEM] DAILYLAB 07/06/21 09:00 Chest 1 View X-Ray [XR] DAILY 07/07/21 05:00 CBC W/O DIFF (HEMOGRAM) [HEME] DAILYLAB CMP [COMPREHENSIVE METABOLIC PANEL] [CHEM] DAILYLAB MAGNESIUM [CHEM] DAILYLAB PHOSPHORUS [CHEM] DAILYLAB Consult/Specialty: Surgery Subjective - Subjective Patient Reports: Other (Intubated, sedated) Objective Vital Signs: Vital Signs - 24 hr 07/03/21 07/03/21 07/03/21 13:00 13:20 14:00 Temperature Heart Rate 70 Heart Rate [ 70 70 Monitoring electrodes] Respiratory 16 16 Rate Blood Pressure 98/53 L 99/53 L [Left Brachial artery] O2 Saturation 100 100 07/03/21 07/03/21 07/03/21 15:00 16:00 17:20 Temperature 37.3 C Heart Rate 70 Heart Rate [ 70 70 70 Monitoring electrodes] Respiratory 16 16 16 Rate Blood Pressure 104/54 L 100/51 L 95/53 L [Left Brachial artery] O2 Saturation 100 100 100 1007/03/21 07/03/21 17:22 18:00 19:00 Temperature 36.6 C Heart Rate 70 Heart Rate [ 70 70 Monitoring electrodes] Respiratory 16 16 Rate Blood Pressure 98/53 L 102/57 L [Left Brachial artery] O2 Saturation 100 100 07/03/21 07/03/21 07/03/21 20:00 21:00 22:00 Temperature Heart Rate 70 Heart Rate [ 70 70 70 Monitoring electrodes] Respiratory 18 16 16 Rate Blood Pressure 104/56 L 106/56 L 101/58 L [Left Brachial artery] O2 Saturation 100 100 100 07/03/21 07/04/21 07/04/21 23:00 00:00 01:00 Temperature 36.5 C Heart Rate 70 Heart Rate [ 70 40 L 70 Monitoring electrodes] Respiratory 17 18 20 Rate Blood Pressure 103/55 L 107/56 L 104/57 L [Left Brachial artery] O2 Saturation 100 100 100 07/04/21 07/04/21 07/04/21 02:00 03:00 04:00 Temperature Heart Rate 70 Heart Rate [ 70 70 70 Monitoring electrodes] Respiratory 18 18 16 Rate Blood Pressure 102/61 102/54 L 101/52 L [Left Brachial artery] O2 Saturation 100 100 100 07/04/21 07/04/21 07/04/21 05:00 05:43 06:00 Temperature 36.6 C Heart Rate 72 Heart Rate [ 70 70 Monitoring electrodes] Respiratory 20 17 Rate Blood Pressure 103/57 L 104/56 L [Left Brachial artery] O2 Saturation 100 100 07/04/21 07/04/21 07/04/21 07:00 07:39 08:00 Temperature 36.4 C L Heart Rate 70 Heart Rate [ 70 70 Monitoring electrodes] Respiratory 18 16 Rate Blood Pressure 99/53 L 88/53 L [Left Brachial artery] O2 Saturation 100 100 07/04/21 07/04/21 07/04/21 09:00 09:48 10:00 Temperature Heart Rate 84 Heart Rate [ 75 70 Monitoring electrodes] Respiratory 18 22 Rate Blood Pressure 109/75 95/47 L [Left Brachial artery] O2 Saturation 100 100 07/04/21 07/04/21 11:00 12:00 Temperature 36.6 C Heart Rate Heart Rate [ 70 70 Monitoring electrodes] Respiratory 18 18 Rate Blood Pressure 94/49 L 95/51 L [Left Brachial artery] O2 Saturation 100 100 Oxygen O2 Source Mechanical ventilator I&O (Last 24 Hrs): Intake and Output Totals x24h 07/02/21 07/03/21 07/04/21 23:59 23:59 23:59 Intake Total 3422.273 3386.602 2594.316 Output Total 1392 1739 1020 Balance 2030.273 1833.221 4457.316 General: Other (, Appears to be comfortable, Generalized severe anasarca) HEENT: Atraumatic Cardiovascular: Regular rate, Normal S1, Normal S2 Respiratory: Chest non-tender, No respiratory distress Abdomen: Soft, Other (Hypoactive bowel sounds, abdominal incisional wound midline) Genitourinary: Other Extremities: Other (Severe bilateral lower extremity edema, Moderate to severe bilateral upper extremity edema) - Results Results: Laboratory Results WBC 6.3 x10^3/uL (4.8-10.8) 07/04/21 04:43 RBC 2.65 10^6/uL (4.20-5.40) L 07/04/21 04:43 Hgb 7.8 g/dL (12.0-16.0) L 07/04/21 04:43 Hct 24.6 % (37.0-47.0) L 07/04/21 04:43 MCV 92.8 fL (81.0-99.0) 07/04/21 04:43 MCH 29.4 pg (27.0-31.0) 07/04/21 04:43 MCHC 31.7 g/dL (32.0-36.0) L 07/04/21 04:43 RDW 19.5 % (12.0-15.0) H 07/04/21 04:43 Plt Count 247 10^3/uL (130-450) 07/04/21 04:43 MPV 12.2 fL (7.9-10.8) H 07/04/21 04:43 Neut # (Auto) 5.9 10^3/uL (1.5-6.6) 07/03/21 07:30 Lymph # (Auto) 1.0 10^3/uL (1.5-3.5) L 07/03/21 07:30 [place] # (Auto) 0.6 10^3/uL (0.0-1.0) 07/03/21 07:30 Eos # (Auto) 0.5 10^3/uL (0.0-0.7) 07/03/21 07:30 Baso # (Auto) 0.0 10^3/uL (0.0-0.1) 07/03/21 07:30 Absolute Nucleated RBC 0.00 x10^3/uL 07/03/21 07:30 Total Counted 100 06/27/21 04:20 Band Neuts % (Manual) 26 % (0-10) H 06/27/21 04:20 Abnorm Lymph % (Manual) 0 % 06/27/21 04:20 Nucleated RBC % 0.0 /100WBC 07/03/21 07:30 Neutrophils # (Manual) 11.3 10^3/uL (1.5-6.6) H 06/27/21 04:20 Lymphocytes # (Manual) 1.1 10^3/uL (1.5-3.5) L 06/27/21 04:20 Monocytes # (Manual) 0.1 10^3/uL (0.0-1.0) 06/27/21 04:20 Eosinophils # (Manual) 0.0 10^3/uL (0-0.7) 06/27/21 04:20 Basophils # (Manual) 0.0 10^3/uL (0-0.1) 06/27/21 04:20 Differential Comment MANUAL DIFFERENTIAL 06/27/21 04:20 Manual Slide Review Indicated 07/01/21 05:34 WBC Morphology NORMAL APPEARANCE (NORMAL) 07/01/21 05:34 Platelet Estimate NORMAL (130-450,000) (NORMAL) 07/01/21 05:34 Platelet Morphology NORMAL APPEARANCE (NORMAL) 07/01/21 05:34 RBC Morph Micro Appear 1+ ANISOCYTOSIS (NORMAL) 07/01/21 05:34 Bld Gas Analysis Time 1455 07/03/21 14:55 Sample Site LEFT RADIAL 07/03/21 14:55 ABG pH 7.42 (7.35-7.45) 07/03/21 14:55 ABG pCO2 34 mmHg (34-45) 07/03/21 14:55 ABG pO2 93 mmHg (80-100) 07/03/21 14:55 ABG HCO3 21.8 mmol/L (22.0-26.0) L 07/03/21 14:55 ABG Total CO2 22.9 MMOL/L (21.0-29.0) 07/03/21 14:55 ABG O2 Saturation 97 % (94-98) 07/03/21 14:55 ABG Base Excess -2.2 mmol/L (-2.0-3.0) L 07/03/21 14:55 Ruperto Test POSITIVE 07/03/21 14:55 VBG pH 7.344 (7.31-7.41) 07/04/21 04:43 Ionized Calcium 1.16 mmol/L (1.15-1.33) 07/04/21 04:43 Respiration Rate 16 b/min 06/30/21 03:38 O2 Delivery Device VENTILATOR 07/03/21 14:55 Vent Mode CPAP 07/03/21 14:55 FiO2 30.00 07/03/21 14:55 Tidal Volume 400 mL 06/30/21 03:38 PEEP 5 cmH2O 07/03/21 14:55 Pressure Support Vent 12 cmH2O 07/03/21 14:55 IPAP Not Reportable 06/27/21 05:43 Sodium 135 mmol/L (135-145) 07/04/21 04:43 Sodium 137 mmol/L (135-145) 07/04/21 04:43 Potassium 4.0 mmol/L (3.5-5.0) 07/04/21 04:43 Potassium 4.1 mmol/L (3.5-5.0) 07/04/21 04:43 Chloride 109 mmol/L (101-111) 07/04/21 04:43 Chloride 110 mmol/L (101-111) 07/04/21 04:43 Carbon Dioxide 22 mmol/L (21-32) 07/04/21 04:43 Carbon Dioxide 22 mmol/L (21-32) 07/04/21 04:43 Anion Gap 4.0 (6-13) L 07/04/21 04:43 Anion Gap 5.0 (6-13) L 07/04/21 04:43 BUN 21 mg/dL (6-20) H 07/04/21 04:43 BUN 21 mg/dL (6-20) H 07/04/21 04:43 Creatinine 0.5 mg/dL (0.4-1.0) 07/04/21 04:43 Creatinine 0.6 mg/dL (0.4-1.0) 07/04/21 04:43 Estimated GFR (MDRD) 96 (>89) 07/04/21 04:43 Estimated GFR (MDRD) 119 (>89) 07/04/21 04:43 Glucose 150 mg/dL (70-100) H 07/04/21 04:43 Glucose 152 mg/dL (70-100) H 07/04/21 04:43 Lactic Acid 1.6 mmol/L (0.5-2.2) 06/27/21 21:01 Calcium 8.0 mg/dL (8.5-10.3) L 07/04/21 04:43 Calcium 8.0 mg/dL (8.5-10.3) L 07/04/21 04:43 Ionized Calcium YES 07/04/21 04:43 Phosphorus 2.3 mg/dL (2.5-4.6) L 07/04/21 04:43 Magnesium 2.0 mg/dL (1.7-2.8) 07/04/21 04:43 Iron 11 ug/dL (28-170) L 07/04/21 04:43 TIBC 115 ug/dL (250-450) L 07/04/21 04:43 % Saturation 10 % (20-50) L 07/04/21 04:43 Transferrin 82 mg/dL (192-382) L 07/04/21 04:43 Total Bilirubin 0.4 mg/dL (0.2-1.0) 07/04/21 04:43 Total Bilirubin 0.4 mg/dL (0.2-1.0) 07/04/21 04:43 AST 16 IU/L (10-42) 07/04/21 04:43 AST 18 IU/L (10-42) 07/04/21 04:43 ALT 13 IU/L (10-60) 07/04/21 04:43 ALT 13 IU/L (10-60) 07/04/21 04:43 Alkaline Phosphatase 80 IU/L (42-121) 07/04/21 04:43 Alkaline Phosphatase 82 IU/L (42-121) 07/04/21 04:43 Troponin I High Sens 99.6 ng/L (2.3-14.8) H* 06/27/21 08:08 C-Reactive Protein 7.1 mg/dL (0-1.0) H 07/04/21 04:43 B-Natriuretic Peptide 919 pg/mL (5-100) H 07/03/21 07:30 Total Protein 4.8 g/dL (6.7-8.2) L 07/04/21 04:43 Total Protein 4.8 g/dL (6.7-8.2) L 07/04/21 04:43 Albumin 2.3 g/dL (3.2-5.5) L 07/04/21 04:43 Albumin 2.4 g/dL (3.2-5.5) L 07/04/21 04:43 Globulin 2.5 g/dL (2.1-4.2) 07/04/21 04:43 Globulin 2.5 g/dL (2.1-4.2) 07/04/21 04:43 Albumin/Globulin Ratio 0.9 (1.0-2.2) L 07/04/21 04:43 Albumin/Globulin Ratio 1.0 (1.0-2.2) 07/04/21 04:43 Prealbumin 11 mg/dL (18-45) L 07/02/21 04:42 Triglycerides 79 mg/dL (-149) 07/02/21 04:42 Lipase 42 U/L (22-51) 06/26/21 14:26 TSH 3.29 uIU/mL (0.34-5.60) 07/02/21 04:42 Free T4 0.97 ng/dL (0.58-1.64) 07/02/21 04:42 Urine Color YELLOW 06/26/21 22:51 Urine Clarity CLEAR (CLEAR) 06/26/21 22:51 Urine pH 5.0 PH (5.0-7.5) 06/26/21 22:51 Ur Specific [place] 1.015 (1.002-1.030) 06/26/21 22:51 Urine Protein NEGATIVE mg/dL (NEGATIVE) 06/26/21 22:51 Urine Glucose (UA) NEGATIVE mg/dL (NEGATIVE) 06/26/21 22:51 Urine Ketones NEGATIVE mg/dL (NEGATIVE) 06/26/21 22:51 Urine Occult Blood NEGATIVE (NEGATIVE) 06/26/21 22:51 Urine Nitrite NEGATIVE (NEGATIVE) 06/26/21 22:51 Urine Bilirubin NEGATIVE (NEGATIVE) 06/26/21 22:51 Urine Urobilinogen 0.2 (NORMAL) E.U./dL (NORMAL) 06/26/21 22:51 Ur Leukocyte Esterase TRACE (NEGATIVE) H 06/26/21 22:51 Urine RBC 0-5 /HPF (0-5) 06/26/21 22:51 Urine WBC 4-5 /HPF (0-5) 06/26/21 22:51 Ur Squamous Epith Cells FEW Squamous (<= Few) 06/26/21 22:51 Urine Bacteria Few /HPF (None Seen) 06/26/21 22:51 Urine Casts 3-5 Hyaline Casts /LPF 06/26/21 22:51 Ur Microscopic Review INDICATED 06/26/21 22:51 Urine Culture Comments INDICATED 06/26/21 22:51 Nasal Adenovirus (PCR) NOT DETECTED 06/27/21 01:23 Nasal B. parapertussis DNA (PCR) NOT DETECTED 06/27/21 01:23 Nasal Coronavir 229E PCR NOT DETECTED 06/27/21 01:23 Nasal Coronavir HKU1 PCR NOT DETECTED 06/27/21 01:23 Nasal Coronavir NL63 PCR NOT DETECTED 06/27/21 01:23 Nasal Coronavir OC43 PCR NOT DETECTED 06/27/21 01:23 Nasal Enterovir/Rhinovir PCR NOT DETECTED 06/27/21 01:23 Nasal Influenza B PCR NOT DETECTED 06/27/21 01:23 Nasal Influenza A PCR NOT DETECTED 06/27/21 01:23 Nasal Parainfluen 1 PCR NOT DETECTED 06/27/21 01:23 Nasal Parainfluen 2 PCR NOT DETECTED 06/27/21 01:23 Nasal Parainfluen 3 PCR NOT DETECTED 06/27/21 01:23 Nasal Parainfluen 4 PCR NOT DETECTED 06/27/21 01:23 Nasal RSV (PCR) NOT DETECTED 06/27/21 01:23 Nasal Screen MRSA (PCR) NEGATIVE (NEGATIVE) 06/26/21 21:55 Nasal B.pertussis DNA PCR NOT DETECTED 06/27/21 01:23 Nasal C.pneumoniae (PCR) NOT DETECTED 06/27/21 01:23 Mk Human Metapneumo PCR NOT DETECTED 06/27/21 01:23 Nasal M.pneumoniae (PCR) NOT DETECTED 06/27/21 01:23 Nasal SARS-CoV-2 (PCR) DETECTED A 06/27/21 01:23 - Procedures Procedures: Procedures RESPIRATORY VENTILATION, LESS THAN 24 CONSECUTIVE HOURS (01/11/20) Sepsis Event Note (H) - Evaluation Current Stage of Sepsis: Septic shock Possible source of Sepsis: positive: GI tract/intra-abdominal - Sepsis Criteria Sepsis Criteria: WBC count greater than 10% bands, SBP drop more than 40mHg, MAP less than 65 mmHg, SBP less than 90 mmHg, Renal: urine output less than 0.5ml/kg/hr for 2 hours or creatinine gr, Metabolic: lactate > 2 mmol/L ABX Reporting Has patient been on IV antibiotics over the past 48 hours?: Yes Current Medications - Current Medications Current Medications: Current Medications Generic Name Dose Route Start Last Admin Trade Name Freq PRN Reason Stop Dose Admin Calcium Carbonate/Glycine 500 mg 07/02/21 21:00 07/04/21 08:08 Calcium Carbonate Chew 500 Mg Tablet PO 500 mg BID JULIETA Administration Chlorhexidine Gluconate 15 ml 06/27/21 21:00 07/04/21 08:08 Chlorhexidine Gluconate 15 Ml Udc PO 15 ml BID JULIETA Administration Enoxaparin Sodium 40 mg 06/28/21 09:00 07/04/21 08:10 Enoxaparin 40 Mg/0.4 Ml Syringe SUBQ 40 mg DAILY JULIETA Administration Glycopyrrolate 0.2 mg 06/28/21 21:17 07/04/21 08:10 Glycopyrrolate 1 Mg/5 Ml Vial SUBQ 0.2 mg Q6H PRN Administration Excessive Secretions Hydromorphone HCl 1 mg 06/27/21 10:08 07/04/21 09:45 Hydromorphone 1 Mg/Ml Carpuject IVP 1 mg Q2H PRN Administration PAIN Fluconazole 100 mls @ 100 mls/hr 06/27/21 09:00 07/04/21 09:45 Diflucan 200 Mg/100 Ml IV Infused DAILY JULIETA Infusion Norepinephrine Bitartrate 8 mg 250 mls @ 15 mls/hr 06/26/21 23:00 07/04/21 12:00 / Dextrose IV 3 mcg/min .[id number] JULIETA 5.625 mls/hr Administration Protocol 8 MCG/MIN Sodium Chloride 500 mls @ 20 mls/hr 06/26/21 23:03 06/30/21 19:27 Normal Saline 0.9% IV Infused Q24H PRN Infusion TKO RATE Dexmedetomidine HCl 400 mcg/ 100 mls @ 8.3 mls/hr 06/27/21 18:00 07/04/21 12:00 Sodium Chloride IV 1.1 mcg/kg/hr .Q12H3M JULIETA 22.825 mls/hr Titration Protocol 0.4 MCG/KG/HR Multivitamins 10 ml/ TRACE 2,011 mls @ 75 mls/hr 06/27/21 19:00 07/04/21 12:00 ELEMENTS 1 ml/ Amino Ac/ IV 75 mls/hr Electrol/Dextrose/Calcium Q24H JULIETA Infusion Protocol Fat Emulsion Intravenous 250 mls @ 21 mls/hr 06/27/21 19:00 07/04/21 06:43 Intralipid 20% IV Infused Q24H JULIETA Infusion Cefepime HCl 2 gm/ Sodium 100 mls @ 200 mls/hr 06/27/21 18:00 07/04/21 08:30 Chloride IV Infused BID JULIETA Infusion Acetaminophen 100 mls @ 400 mls/hr 06/28/21 10:21 06/28/21 23:41 Ofirmev IV Infused Q6H PRN Infusion pain Metronidazole 500 mg in 100 mls @ 100 mls/hr 06/29/21 09:00 07/04/21 10:45 Flagyl 500 Mg/100 Ml IV Infused Q8H JULIETA Infusion Iron Dextran 200 mg/ Sodium 104 mls @ 104 mls/hr 07/04/21 11:00 07/04/21 12:00 Chloride IV 07/06/21 09:59 Infused DAILY JULIETA Infusion Levothyroxine Sodium 130 mcg 07/01/21 07:00 07/04/21 06:07 Levothyroxine 100 Mcg Vial IVP 130 mcg MoTh@0700 JULIETA Administration Lorazepam 0.5 mg 06/26/21 20:54 07/04/21 09:45 Lorazepam 2 Mg/Ml Vial IVP 0.5 mg Q1H PRN Administration Anxiety Midazolam HCl 2 mg 06/28/21 00:24 07/04/21 00:23 Midazolam 2 Mg/2 Ml Vial IVP 2 mg Q2H PRN Administration Agitation Pantoprazole Sodium 40 mg 06/27/21 07:00 07/04/21 06:07 Pantoprazole 40 Mg Vial IVP 40 mg QDAC JULIETA Administration Scopolamine HBr 1 patch 07/03/21 11:00 07/03/21 11:30 Scopolamine Patch TOP 1 patch Q3D JULIETA Administration Sodium Chloride 10 ml 06/27/21 01:00 07/04/21 08:07 Sodium Chloride Flush 0.9% 10 Ml Syringe IVP 10 ml 0100,0900,1700 JULIETA Administration Sodium Chloride 10 ml 06/26/21 20:54 07/04/21 09:45 Sodium Chloride Flush 0.9% 10 Ml Syringe IVP 10 ml PRN PRN Administration NEEDED PER PROVIDER ORDERS Sodium Chloride 20 ml 06/26/21 23:03 06/27/21 04:16 Sodium Chloride Flush 0.9% 10 Ml Syringe IVP 20 ml PRN PRN Administration After Blood Draw Sodium Phosphate 250 mg 07/02/21 17:00 07/04/21 11:55 Neutra-Phos 250 Mg Tablet PO 250 mg TIDWM JULIETA Administration
[2021-07-04] MEDS ORDERED: ALBUTEROL NEB 2.5 MG/3 ML INH PRN (15:05)
[2021-07-04] MEDS: TPN (CLINIMIX E 5/15) 2,000 ML with MULTIVITAMIN 10 ML, TRACE ELEMENTS 1 ML IV SCH ×3 (18:00)
[2021-07-04] MEDS: FAT EMULSION 20% 250 ML IV SCH (18:10)
[2021-07-05] MEDS: metroNIDAZOLE 500 MG/100 ML 500 MG/100 ML BAG IV SCH ×3 (00:52→17:12)
[2021-07-05] MEDS: DEXMEDETOMIDINE 400 MCG in SODIUM CHLORIDE 0.9% 100ML 96 ML IV SCH ×4 (02:27→23:10)
[2021-07-05] MEDS: LORazepam 2 MG/ML VIAL IVP PRN ×4 (04:10→23:06)
[2021-07-05] MEDS: SODIUM CHLORIDE FLUSH 0.9% 10 ML SYRINGE IVP PRN ×7 (04:10→23:07)
[2021-07-05] MEDS: HYDROmorphone 1 MG/ML CARPUJECT IVP PRN (04:10)
[2021-07-05 06:12] LABS: HCT - HEMATOCRIT 25.4 % (37.0-47.0); HGB - HEMOGLOBIN 7.8 g/dL (12.0-16.0); MEAN CORPUSCULAR HEMOGLOBIN 29.1 pg (27.0-31.0); MEAN CORPUSCULAR HGB CONC 30.7 g/dL (32.0-36.0); MEAN CORPUSCULAR VOLUME 94.8 fL (81.0-99.0); MEAN PLATELET VOLUME 11.9 fL (7.9-10.8); RED BLOOD COUNT 2.68 10^6/uL (4.20-5.40); RED CELL DISTRIBUTION WIDTH 19.4 % (12.0-15.0); WHITE BLOOD COUNT 6.8 x10^3/uL (4.8-10.8)
[2021-07-05 06:26] LABS: ALBUMIN 2.2 g/dL (3.2-5.5); ALBUMIN/GLOBULIN RATIO 0.8 (1.0-2.2); BILIRUBIN,TOTAL 0.3 mg/dL (0.2-1.0); CALCIUM 8.5 mg/dL (8.5-10.3); CREATININE 0.5 mg/dL (0.4-1.0); MAGNESIUM 1.9 mg/dL (1.7-2.8); PHOSPHORUS 2.3 mg/dL (2.5-4.6); POTASSIUM 4.2 mmol/L (3.5-5.0); TOTAL PROTEIN 4.8 g/dL (6.7-8.2)
[2021-07-05] MEDS: PANTOPRAZOLE 40 MG VIAL IVP SCH (06:42)
--- NOTE | 2021-07-05 08:45 | XRAY Report ---
PROCEDURE: Chest 1 View X-Ray INDICATIONS: Intubated, follow-up TECHNIQUE: One view of the chest was acquired. COMPARISON: None. FINDINGS: Surgical changes and devices: Support devices are in unchanged and appropriate position. Lungs and pleura: Patchy bilateral airspace opacities not significantly changed from prior study. Ple ural effusions are stable. Mediastinum: Mediastinal contours appear normal. Heart size is normal. Bones and chest wall: No suspicious bony lesions. Overlying soft tissues appear unremarkable. IMPRESSION: No significant change from prior study. Support devices in appropriate position. Reviewed by: Ariel Perez MD on 07/05/2021 8:44 AM PDT Approved by: Ariel Perez MD on 07/05/2021 8:44 AM PDT Station ID: [id number]
[2021-07-05] MEDS: NEUTRA-PHOS 250 MG TABLET PO SCH ×3 (08:56→17:25)
[2021-07-05] MEDS: CALCIUM CARBONATE CHEW 500 MG TABLET PO SCH ×2 (08:58→20:38)
[2021-07-05] MEDS: CHLORHEXIDINE GLUCONATE 15 ML UDC PO SCH ×2 (08:59→20:36)
[2021-07-05] MEDS: ENOXAPARIN 40 MG/0.4 ML SYRINGE SUBQ SCH (08:59)
[2021-07-05] MEDS: CEFEPIME 2 GM in SODIUM CHLORIDE 0.9% MINIBAG 100 ML IV SCH ×2 (08:59→20:38)
[2021-07-05] MEDS: SODIUM CHLORIDE FLUSH 0.9% 10 ML SYRINGE IVP SCH ×3 (09:00→19:36)
[2021-07-05] MEDS: FLUCONAZOLE 200 MG/100 ML 100 ML IV SCH (09:00)
[2021-07-05] MEDS: MIN OIL/DIMETHICON/COCONUT OIL 92 GM TUBE TOP PRN (09:01)
[2021-07-05] MEDS: IRON DEXTRAN 200 MG in SODIUM CHLORIDE 0.9% 100ML 100 ML IV SCH (10:03)
[2021-07-05 11:10] LABS: ABG BASE EXCESS -6.5 mmol/L (-2.0-3.0); ABG HCO3 17.7 mmol/L (22.0-26.0); ABG OXYGEN SATURATION 95 % (94-98); ABG PCO2 31 mmHg (34-45); ABG PH 7.38 (7.35-7.45); ABG PO2 77 mmHg (80-100); ABG TCO2 18.7 MMOL/L (21.0-29.0); ALLEN TEST POSITIVE
[2021-07-05 11:11] LABS: ABG MODE OF VENTILATION CPAP
[2021-07-05] MEDS: GLYCOPYRROLATE 1 MG/5 ML VIAL SUBQ PRN (11:45)
[2021-07-05] MEDS: ACETAMINOPHEN 1,000 MG/100 ML 100 ML IV PRN (13:09)
[2021-07-05] MEDS ORDERED: ACETAMINOPHEN 500 MG TABLET PO PRN (15:54)
[2021-07-05] MEDS ORDERED: FUROSEMIDE 20 MG/2 ML VIAL IVP ONE (16:00)
[2021-07-05] MEDS ORDERED: LEVOTHYROXINE 75 MCG TABLET PO SCH (16:00)
[2021-07-05] MEDS: oxyCODONE 5 MG TABLET PO PRN (16:08)
--- NOTE | 2021-07-05 16:08 | PROVIDER PROGRESS NOTE ---
Subjective - Prog Note Date Prog Note Date: 07/05/21 Objective - Vital Signs/Intake & Output Vital Signs: Vital Signs x48h Temp Pulse Pulse Resp BP Pulse Ox 07/05/21 15:00 84 23 98/52 L 100 07/05/21 14:00 86 22 112/51 L 100 07/05/21 13:00 102 H 23 108/46 L 100 07/05/21 12:00 37 C 90 24 126/92 H 99 07/05/21 11:00 70 22 79/54 L 100 07/05/21 10:00 70 21 91/51 L 100 07/05/21 09:19 70 07/05/21 09:00 70 22 96/47 L 100 Intake & Output: Intake & Output 07/02/21 07/03/21 07/04/21 07/05/21 23:59 23:59 23:59 23:59 Intake Total 3422.273 3386.602 4060.943 2333.920 Output Total 1392 1739 2015 1330 Balance 2030.273 9361.783 8213.943 1003.920 - Objective General Appearance: positive: No acute distress ENT: positive: No signs of dehydration Respiratory: positive: No respiratory distress Abdomen: positive: Non-tender, No distention, Other (incision c/d/i ngt still dark green) - Lab Results Fish Bones: 07/05/21 05:31 07/05/21 05:31 Other Labs: Lab Results x24hrs 07/05/21 07/05/21 07/05/21 Range/Units 11:00 05:31 05:31 WBC 6.8 (4.8-10.8) x10^3/uL RBC 2.68 L (4.20-5.40) 10^6/uL Hgb 7.8 L (12.0-16.0) g/dL Hct 25.4 L (37.0-47.0) % MCV 94.8 (81.0-99.0) fL MCH 29.1 (27.0-31.0) pg MCHC 30.7 L (32.0-36.0) g/dL RDW 19.4 H (12.0-15.0) % Plt Count 342 (130-450) 10^3/uL MPV 11.9 H (7.9-10.8) fL Bld Gas Analysis Time 1100 Sample Site RIGHT RADIAL ABG pH 7.38 (7.35-7.45) ABG pCO2 31 L (34-45) mmHg ABG pO2 77 L (80-100) mmHg ABG HCO3 17.7 L (22.0-26.0) mmol/L ABG Total CO2 18.7 L (21.0-29.0) MMOL/L ABG O2 Saturation 95 (94-98) % ABG Base Excess -6.5 L (-2.0-3.0) mmol/L Ruperto Test POSITIVE O2 Delivery Device VENTILATOR Vent Mode CPAP FiO2 30.00 PEEP 5 cmH2O Pressure Support Vent 12 cmH2O Sodium (135-145) mmol/L Potassium (3.5-5.0) mmol/L Chloride (101-111) mmol/L Carbon Dioxide (21-32) mmol/L Anion Gap (6-13) BUN (6-20) mg/dL Creatinine (0.4-1.0) mg/dL Estimated GFR (MDRD) (>89) Glucose (70-100) mg/dL Calcium (8.5-10.3) mg/dL Phosphorus (2.5-4.6) mg/dL Magnesium (1.7-2.8) mg/dL Total Bilirubin (0.2-1.0) mg/dL AST (10-42) IU/L ALT (10-60) IU/L Alkaline Phosphatase (42-121) IU/L Total Protein (6.7-8.2) g/dL Albumin (3.2-5.5) g/dL Globulin (2.1-4.2) g/dL Albumin/Globulin Ratio (1.0-2.2) Prealbumin (18-45) mg/dL Triglycerides ( - 149) mg/dL Cortisol AM Sample 6.1 ug/dL 07/05/21 Range/Units 05:31 WBC (4.8-10.8) x10^3/uL RBC (4.20-5.40) 10^6/uL Hgb (12.0-16.0) g/dL Hct (37.0-47.0) % MCV (81.0-99.0) fL MCH (27.0-31.0) pg MCHC (32.0-36.0) g/dL RDW (12.0-15.0) % Plt Count (130-450) 10^3/uL MPV (7.9-10.8) fL Bld Gas Analysis Time Sample Site ABG pH (7.35-7.45) ABG pCO2 (34-45) mmHg ABG pO2 (80-100) mmHg ABG HCO3 (22.0-26.0) mmol/L ABG Total CO2 (21.0-29.0) MMOL/L ABG O2 Saturation (94-98) % ABG Base Excess (-2.0-3.0) mmol/L Ruperto Test O2 Delivery Device Vent Mode FiO2 PEEP cmH2O Pressure Support Vent cmH2O Sodium 139 (135-145) mmol/L Potassium 4.2 (3.5-5.0) mmol/L Chloride 111 (101-111) mmol/L Carbon Dioxide 21 (21-32) mmol/L Anion Gap 7.0 (6-13) BUN 20 (6-20) mg/dL Creatinine 0.5 (0.4-1.0) mg/dL Estimated GFR (MDRD) 119 (>89) Glucose 144 H (70-100) mg/dL Calcium 8.5 (8.5-10.3) mg/dL Phosphorus 2.3 L (2.5-4.6) mg/dL Magnesium 1.9 (1.7-2.8) mg/dL Total Bilirubin 0.3 (0.2-1.0) mg/dL AST 13 (10-42) IU/L ALT 11 (10-60) IU/L Alkaline Phosphatase 82 (42-121) IU/L Total Protein 4.8 L (6.7-8.2) g/dL Albumin 2.2 L (3.2-5.5) g/dL Globulin 2.6 (2.1-4.2) g/dL Albumin/Globulin Ratio 0.8 L (1.0-2.2) Prealbumin 11 L (18-45) mg/dL Triglycerides 64 ( - 149) mg/dL Cortisol AM Sample ug/dL Sepsis Event Note (H) - Evaluation Current Stage of Sepsis: Septic shock Possible source of Sepsis: positive: GI tract/intra-abdominal - Sepsis Criteria Sepsis Criteria: WBC count greater than 10% bands, SBP drop more than 40mHg, MAP less than 65 mmHg, SBP less than 90 mmHg, Renal: urine output less than 0.5ml/kg/hr for 2 hours or creatinine gr, Metabolic: lactate > 2 mmol/L Assessment/Plan - Problem List (1) Perforated duodenal ulcer Impression: recommend continue ngt to suction. may clamp for 1 hour for meds
--- NOTE | 2021-07-05 16:48 | XRAY Report ---
PROCEDURE: Chest 1 View X-Ray INDICATIONS: Increased crackles, extubated, eval for pulm edema TECHNIQUE: One view of the chest was acquired. COMPARISON: 07/05/2021 at 0532 hours FINDINGS: Surgical changes and devices: Pacemaker, right IJ line. Interval removal of ET tube. NG tube in place .. Lungs and pleura: Pulmonary edema, pleural effusions, right greater than left, bibasilar atelectasis. Mediastinum: Mediastinal contours appear normal. Cardiomegaly. Bones and chest wall: No suspicious bony lesions. Overlying soft tissues appear unremarkable. IMPRESSION: Congestive heart failure. Reviewed by: Alex Bowden MD on 07/05/2021 4:47 PM PDT Approved by: Alex Bowden MD on 07/05/2021 4:47 PM PDT Station ID: [id number]
--- NOTE | 2021-07-05 16:50 | XRAY Report ---
PROCEDURE: Abdomen 1 View X-Ray INDICATIONS: constipation, abdominal pain TECHNIQUE: 1 view of the abdomen were acquired. COMPARISON: None FINDINGS: Surgical changes and devices: NG tube projects to stomach. Bowel: Nonspecific bowel gas pattern. Prominent mid abdominal bowel loops. Question ileus. Soft tissues: No masses; visualized solid organ contours appear normal in size. No suspicious abdom inal calcifications. Bones: No suspicious bony abnormalities. IMPRESSION: Question ileus pattern. Reviewed by: Alex Bowden MD on 07/05/2021 4:49 PM PDT Approved by: Alex Bowden MD on 07/05/2021 4:49 PM PDT Station ID: [id number]
--- NOTE | 2021-07-05 18:04 | PROVIDER PROGRESS NOTE ---
Assessment/Plan - Problem List (1) On mechanically assisted ventilation Assessment/Plan: Intubated since postop, w/o clear source evidence of PNA Extubated today - doing well on 30% on 4L NC Cont try wean oxygen Trial of low dose Lasix (20 mg IV) due to fluid overload If BP allows, titrate up (2) Iron deficiency anemia Assessment/Plan: Started Iron yesterday H&H improved (3) Septic shock Assessment/Plan: Resolved (4) Anasarca Assessment/Plan: See above Started Lasix 20 mg, titrate up as BP allows (5) Perforated duodenal ulcer Assessment/Plan: Per surgery - no evidence of bleeding Defer to surgery when to use NG for feeds - will help get fluid off when not relying on TPN for nutrition (6) Hypothyroidism Qualifiers: Hypothyroidism type: acquired Qualified Code(s): E03.9 - Hypothyroidism, unspecified Assessment/Plan: Resume synthroid (7) Schizophrenia Qualifiers: Schizophrenia type: schizophreniform disorder Qualified Code(s): F20.81 - Schizophreniform disorder Assessment/Plan: Stable Resume seroqeul (8) Ileus following gastrointestinal surgery Assessment/Plan: Reviewed abd xray Ileus seen Trial of lactulose per NG - Current Meds Current Meds: Current Medications Generic Name Dose Route Start Last Admin Trade Name Freq PRN Reason Stop Dose Admin Calcium Carbonate/Glycine 500 mg 07/02/21 21:00 07/05/21 08:58 Calcium Carbonate Chew 500 Mg Tablet PO 500 mg BID JULIETA Administration Chlorhexidine Gluconate 15 ml 06/27/21 21:00 07/05/21 08:59 Chlorhexidine Gluconate 15 Ml Udc PO 15 ml BID JULIETA Administration Enoxaparin Sodium 40 mg 06/28/21 09:00 07/05/21 08:59 Enoxaparin 40 Mg/0.4 Ml Syringe SUBQ 40 mg DAILY JULIETA Administration Glycopyrrolate 0.2 mg 06/28/21 21:17 07/05/21 11:45 Glycopyrrolate 1 Mg/5 Ml Vial SUBQ 0.2 mg Q6H PRN Administration Excessive Secretions Fluconazole 100 mls @ 100 mls/hr 06/27/21 09:00 07/05/21 10:00 Diflucan 200 Mg/100 Ml IV Infused DAILY JULIETA Infusion Norepinephrine Bitartrate 8 mg 250 mls @ 15 mls/hr 06/26/21 23:00 07/05/21 17:00 / Dextrose IV 0 mcg/min .[id number] JULIETA 0 mls/hr Titration Protocol 8 MCG/MIN Sodium Chloride 500 mls @ 20 mls/hr 06/26/21 23:03 06/30/21 19:27 Normal Saline 0.9% IV Infused Q24H PRN Infusion TKO RATE Dexmedetomidine HCl 400 mcg/ 100 mls @ 8.3 mls/hr 06/27/21 18:00 07/05/21 17:00 Sodium Chloride IV 0.4 mcg/kg/hr .Q12H3M JULIETA 8.3 mls/hr Titration Protocol 0.4 MCG/KG/HR Multivitamins 10 ml/ TRACE 2,011 mls @ 75 mls/hr 06/27/21 19:00 07/05/21 17:00 ELEMENTS 1 ml/ Amino Ac/ IV 75 mls/hr Electrol/Dextrose/Calcium Q24H JULIETA Infusion Protocol Cefepime HCl 2 gm/ Sodium 100 mls @ 200 mls/hr 06/27/21 18:00 07/05/21 09:35 Chloride IV Infused BID JULIETA Infusion Metronidazole 500 mg in 100 mls @ 100 mls/hr 06/29/21 09:00 07/05/21 17:12 Flagyl 500 Mg/100 Ml IV 100 mls/hr Q8H JULIETA Administration Iron Dextran 200 mg/ Sodium 104 mls @ 104 mls/hr 07/04/21 11:00 07/05/21 11:06 Chloride IV 07/06/21 09:59 Infused DAILY JULIETA Infusion Lorazepam 0.5 mg 06/26/21 20:54 07/05/21 13:05 Lorazepam 2 Mg/Ml Vial IVP 0.5 mg Q1H PRN Administration Anxiety Midazolam HCl 2 mg 06/28/21 00:24 07/04/21 00:23 Midazolam 2 Mg/2 Ml Vial IVP 2 mg Q2H PRN Administration Agitation Mineral Oil 1 applic 07/01/21 01:24 07/05/21 09:01 Min Oil/Dimethicon/Coconut Oil 92 Gm Tube TOP 1 ea PRN PRN Administration Skin Care Oxycodone HCl 5 mg 07/05/21 15:57 07/05/21 16:08 Oxycodone 5 Mg Tablet PO 5 mg Q4HR PRN Administration PAIN Pantoprazole Sodium 40 mg 06/27/21 07:00 07/05/21 06:42 Pantoprazole 40 Mg Vial IVP 40 mg QDAC JULIETA Administration Scopolamine HBr 1 patch 07/03/21 11:00 07/03/21 11:30 Scopolamine Patch TOP 1 patch Q3D JULIETA Administration Sodium Chloride 10 ml 06/27/21 01:00 07/05/21 17:24 Sodium Chloride Flush 0.9% 10 Ml Syringe IVP 10 ml 0100,0900,1700 JULIETA Administration Sodium Chloride 10 ml 06/26/21 20:54 07/05/21 06:42 Sodium Chloride Flush 0.9% 10 Ml Syringe IVP 10 ml PRN PRN Administration NEEDED PER PROVIDER ORDERS Sodium Chloride 20 ml 06/26/21 23:03 07/05/21 05:31 Sodium Chloride Flush 0.9% 10 Ml Syringe IVP 20 ml PRN PRN Administration After Blood Draw Sodium Phosphate 250 mg 07/02/21 17:00 07/05/21 17:25 Neutra-Phos 250 Mg Tablet PO 250 mg TIDWM JULIETA Administration - Lab Result Lab results reviewed: Yes Fish Bone Diagrams: 07/05/21 05:31 07/05/21 05:31 - Diagnostic Imaging Results Diagnostic Imaging Results: Final report reviewed - Additional Planning Condition/Complexity: Improved My Orders: My Active Orders 07/05/21 15:54 Acetaminophen [Tylenol] 500 mg PO Q4HR PRN 07/05/21 15:57 HYDROmorphone 0.5MG SYRINGE [Dilaudid 0.5MG Syringe] 0.5 mg IVP TID PRN oxyCODONE [Roxicodone] 5 mg PO Q4HR PRN 07/05/21 21:00 QUEtiapine [SEROquel] 100 mg PO BID 07/06/21 05:00 CBC W/O DIFF (HEMOGRAM) [HEME] DAILYLAB CMP [COMPREHENSIVE METABOLIC PANEL] [CHEM] DAILYLAB MAGNESIUM [CHEM] DAILYLAB PHOSPHORUS [CHEM] DAILYLAB 07/06/21 09:00 Chest 1 View X-Ray [XR] DAILY FUROSEMIDE INJ 20mg VIAL [LASIX INJ 20mg VIAL] 20 mg IVP DAILY 07/07/21 05:00 CBC W/O DIFF (HEMOGRAM) [HEME] DAILYLAB CMP [COMPREHENSIVE METABOLIC PANEL] [CHEM] DAILYLAB MAGNESIUM [CHEM] DAILYLAB PHOSPHORUS [CHEM] DAILYLAB 07/07/21 07:00 Levothyroxine [Synthroid] 75 mcg PO QDAC Consult/Specialty: Surgery Subjective - Subjective Patient Reports: No Complaints Objective Vital Signs: Vital Signs - 24 hr 07/04/21 07/04/21 07/04/21 18:23 19:00 20:00 Temperature 36.8 C Heart Rate 70 Heart Rate [ 70 70 Monitoring electrodes] Respiratory 18 16 Rate Blood Pressure 101/52 L 102/52 L [Left Brachial artery] O2 Saturation 100 100 07/04/21 07/04/21 07/04/21 21:00 21:03 22:00 Temperature 37 C 36.8 C Heart Rate 70 Heart Rate [ 70 70 Monitoring electrodes] Respiratory 16 16 Rate Blood Pressure 102/56 L 102/58 L [Left Brachial artery] O2 Saturation 100 100 07/04/21 07/05/21 07/05/21 23:00 00:00 01:00 Temperature 36.8 C 37 C 36.7 C Heart Rate Heart Rate [ 70 70 73 Monitoring electrodes] Respiratory 16 16 16 Rate Blood Pressure 99/51 L 101/53 L 101/53 L [Left Brachial artery] O2 Saturation 100 100 100 07/05/21 07/05/21 07/05/21 02:00 02:28 03:00 Temperature 36.7 C Heart Rate 70 Heart Rate [ 74 70 Monitoring electrodes] Respiratory 16 16 Rate Blood Pressure 100/52 L 99/52 L [Left Brachial artery] O2 Saturation 100 100 07/05/21 07/05/21 07/05/21 04:00 04:02 04:06 Temperature 36.8 C Heart Rate Heart Rate [ 76 70 70 Monitoring electrodes] Respiratory 17 16 20 Rate Blood Pressure 97/52 L 91/48 L 97/54 L [Left Brachial artery] O2 Saturation 100 100 100 07/05/21 07/05/21 07/05/21 04:10 04:15 04:20 Temperature Heart Rate Heart Rate [ 78 74 74 Monitoring electrodes] Respiratory 20 16 16 Rate Blood Pressure 101/54 L 112/50 L 96/50 L [Left Brachial artery] O2 Saturation 100 100 100 07/05/21 07/05/21 07/05/21 04:35 04:45 05:00 Temperature 36.5 C Heart Rate Heart Rate [ 73 79 70 Monitoring electrodes] Respiratory 17 17 16 Rate Blood Pressure 100/51 L 103/54 L 103/55 L [Left Brachial artery] O2 Saturation 100 100 100 07/05/21 07/05/21 07/05/21 06:00 07:00 07:19 Temperature 36.6 C 36.6 C Heart Rate 78 Heart Rate [ 75 70 Monitoring electrodes] Respiratory 16 16 Rate Blood Pressure 102/52 L 101/54 L [Left Brachial artery] O2 Saturation 100 100 07/05/21 07/05/21 07/05/21 08:00 09:00 09:19 Temperature 36.4 C L Heart Rate 70 Heart Rate [ 70 70 Monitoring electrodes] Respiratory 20 22 Rate Blood Pressure 101/55 L 96/47 L [Left Brachial artery] O2 Saturation 100 100 07/05/21 07/05/21 07/05/21 10:00 11:00 12:00 Temperature 37 C Heart Rate Heart Rate [ 70 70 90 Monitoring electrodes] Respiratory 21 22 24 Rate Blood Pressure 91/51 L 79/54 L 126/92 H [Left Brachial artery] O2 Saturation 100 100 99 07/05/21 07/05/21 07/05/21 13:00 14:00 15:00 Temperature Heart Rate Heart Rate [ 102 H 86 84 Monitoring electrodes] Respiratory 23 22 23 Rate Blood Pressure 108/46 L 112/51 L 98/52 L [Left Brachial artery] O2 Saturation 100 100 100 07/05/21 07/05/21 16:00 17:00 Temperature 37 C Heart Rate Heart Rate [ 92 96 Monitoring electrodes] Respiratory 26 H 24 Rate Blood Pressure 100/44 L 111/42 L [Left Brachial artery] O2 Saturation 100 100 Oxygen O2 Source Nasal cannula I&O (Last 24 Hrs): Intake and Output Totals x24h 07/03/21 07/04/21 07/05/21 23:59 23:59 23:59 Intake Total 3386.602 4060.943 2598.726 Output Total 1739 2015 1655 Balance 9466.855 6979.943 943.726 General: Other (Lethargic, but awake, tracking with eyes somewhat, not following commands, but spontaneous movements) HEENT: Atraumatic Neuro: Alert, Disoriented Cardiovascular: Regular rate, Normal S1, Normal S2 Respiratory: Chest non-tender, No respiratory distress, Rales, Rhonchi Genitourinary: Other (Hypoactive bowel sounds, soft, no organomegaly, midline incisional scar without evidence of infection) Extremities: Other (Severe bilateral lower extremity edema, moderate to severe bilateral upper extremity edema, generalized anasarca) Comments/Notes: Previously observed pruritic rash resolving - Results Results: Laboratory Results WBC 6.8 x10^3/uL (4.8-10.8) 07/05/21 05:31 RBC 2.68 10^6/uL (4.20-5.40) L 07/05/21 05:31 Hgb 7.8 g/dL (12.0-16.0) L 07/05/21 05:31 Hct 25.4 % (37.0-47.0) L 07/05/21 05:31 MCV 94.8 fL (81.0-99.0) 07/05/21 05:31 MCH 29.1 pg (27.0-31.0) 07/05/21 05:31 MCHC 30.7 g/dL (32.0-36.0) L 07/05/21 05:31 RDW 19.4 % (12.0-15.0) H 07/05/21 05:31 Plt Count 342 10^3/uL (130-450) 07/05/21 05:31 MPV 11.9 fL (7.9-10.8) H 07/05/21 05:31 Neut # (Auto) 5.9 10^3/uL (1.5-6.6) 07/03/21 07:30 Lymph # (Auto) 1.0 10^3/uL (1.5-3.5) L 07/03/21 07:30 [place]ne # (Auto) 0.6 10^3/uL (0.0-1.0) 07/03/21 07:30 Eos # (Auto) 0.5 10^3/uL (0.0-0.7) 07/03/21 07:30 Baso # (Auto) 0.0 10^3/uL (0.0-0.1) 07/03/21 07:30 Absolute Nucleated RBC 0.00 x10^3/uL 07/03/21 07:30 Total Counted 100 06/27/21 04:20 Band Neuts % (Manual) 26 % (0-10) H 06/27/21 04:20 Abnorm Lymph % (Manual) 0 % 06/27/21 04:20 Nucleated RBC % 0.0 /100WBC 07/03/21 07:30 Neutrophils # (Manual) 11.3 10^3/uL (1.5-6.6) H 06/27/21 04:20 Lymphocytes # (Manual) 1.1 10^3/uL (1.5-3.5) L 06/27/21 04:20 Monocytes # (Manual) 0.1 10^3/uL (0.0-1.0) 06/27/21 04:20 Eosinophils # (Manual) 0.0 10^3/uL (0-0.7) 06/27/21 04:20 Basophils # (Manual) 0.0 10^3/uL (0-0.1) 06/27/21 04:20 Differential Comment MANUAL DIFFERENTIAL 06/27/21 04:20 Manual Slide Review Indicated 07/01/21 05:34 WBC Morphology NORMAL APPEARANCE (NORMAL) 07/01/21 05:34 Platelet Estimate NORMAL (130-450,000) (NORMAL) 07/01/21 05:34 Platelet Morphology NORMAL APPEARANCE (NORMAL) 07/01/21 05:34 RBC Morph Micro Appear 1+ ANISOCYTOSIS (NORMAL) 07/01/21 05:34 Bld Gas Analysis Time 1100 07/05/21 11:00 Sample Site RIGHT RADIAL 07/05/21 11:00 ABG pH 7.38 (7.35-7.45) 07/05/21 11:00 ABG pCO2 31 mmHg (34-45) L 07/05/21 11:00 ABG pO2 77 mmHg (80-100) L 07/05/21 11:00 ABG HCO3 17.7 mmol/L (22.0-26.0) L 07/05/21 11:00 ABG Total CO2 18.7 MMOL/L (21.0-29.0) L 07/05/21 11:00 ABG O2 Saturation 95 % (94-98) 07/05/21 11:00 ABG Base Excess -6.5 mmol/L (-2.0-3.0) L 07/05/21 11:00 Ruperto Test POSITIVE 07/05/21 11:00 VBG pH 7.344 (7.31-7.41) 07/04/21 04:43 Ionized Calcium 1.16 mmol/L (1.15-1.33) 07/04/21 04:43 Respiration Rate 16 b/min 06/30/21 03:38 O2 Delivery Device VENTILATOR 07/05/21 11:00 Vent Mode CPAP 07/05/21 11:00 FiO2 30.00 07/05/21 11:00 Tidal Volume 400 mL 06/30/21 03:38 PEEP 5 cmH2O 07/05/21 11:00 Pressure Support Vent 12 cmH2O 07/05/21 11:00 IPAP Not Reportable 06/27/21 05:43 Sodium 139 mmol/L (135-145) 07/05/21 05:31 Potassium 4.2 mmol/L (3.5-5.0) 07/05/21 05:31 Chloride 111 mmol/L (101-111) 07/05/21 05:31 Carbon Dioxide 21 mmol/L (21-32) 07/05/21 05:31 Anion Gap 7.0 (6-13) 07/05/21 05:31 BUN 20 mg/dL (6-20) 07/05/21 05:31 Creatinine 0.5 mg/dL (0.4-1.0) 07/05/21 05:31 Estimated GFR (MDRD) 119 (>89) 07/05/21 05:31 Glucose 144 mg/dL (70-100) H 07/05/21 05:31 Lactic Acid 1.6 mmol/L (0.5-2.2) 06/27/21 21:01 Calcium 8.5 mg/dL (8.5-10.3) 07/05/21 05:31 Ionized Calcium YES 07/04/21 04:43 Phosphorus 2.3 mg/dL (2.5-4.6) L 07/05/21 05:31 Magnesium 1.9 mg/dL (1.7-2.8) 07/05/21 05:31 Iron 11 ug/dL (28-170) L 07/04/21 04:43 TIBC 115 ug/dL (250-450) L 07/04/21 04:43 % Saturation 10 % (20-50) L 07/04/21 04:43 Transferrin 82 mg/dL (192-382) L 07/04/21 04:43 Total Bilirubin 0.3 mg/dL (0.2-1.0) 07/05/21 05:31 AST 13 IU/L (10-42) 07/05/21 05:31 ALT 11 IU/L (10-60) 07/05/21 05:31 Alkaline Phosphatase 82 IU/L (42-121) 07/05/21 05:31 Troponin I High Sens 99.6 ng/L (2.3-14.8) H* 06/27/21 08:08 C-Reactive Protein 7.1 mg/dL (0-1.0) H 07/04/21 04:43 B-Natriuretic Peptide 919 pg/mL (5-100) H 07/03/21 07:30 Total Protein 4.8 g/dL (6.7-8.2) L 07/05/21 05:31 Albumin 2.2 g/dL (3.2-5.5) L 07/05/21 05:31 Globulin 2.6 g/dL (2.1-4.2) 07/05/21 05:31 Albumin/Globulin Ratio 0.8 (1.0-2.2) L 07/05/21 05:31 Prealbumin 11 mg/dL (18-45) L 07/05/21 05:31 Triglycerides 64 mg/dL (-149) 07/05/21 05:31 Lipase 42 U/L (22-51) 06/26/21 14:26 TSH 3.29 uIU/mL (0.34-5.60) 07/02/21 04:42 Free T4 0.97 ng/dL (0.58-1.64) 07/02/21 04:42 Cortisol AM Sample 6.1 ug/dL 07/05/21 05:31 Urine Color YELLOW 06/26/21 22:51 Urine Clarity CLEAR (CLEAR) 06/26/21 22:51 Urine pH 5.0 PH (5.0-7.5) 06/26/21 22:51 Ur Specific [place] 1.015 (1.002-1.030) 06/26/21 22:51 Urine Protein NEGATIVE mg/dL (NEGATIVE) 06/26/21 22:51 Urine Glucose (UA) NEGATIVE mg/dL (NEGATIVE) 06/26/21 22:51 Urine Ketones NEGATIVE mg/dL (NEGATIVE) 06/26/21 22:51 Urine Occult Blood NEGATIVE (NEGATIVE) 06/26/21 22:51 Urine Nitrite NEGATIVE (NEGATIVE) 06/26/21 22:51 Urine Bilirubin NEGATIVE (NEGATIVE) 06/26/21 22:51 Urine Urobilinogen 0.2 (NORMAL) E.U./dL (NORMAL) 06/26/21 22:51 Ur Leukocyte Esterase TRACE (NEGATIVE) H 06/26/21 22:51 Urine RBC 0-5 /HPF (0-5) 06/26/21 22:51 Urine WBC 4-5 /HPF (0-5) 06/26/21 22:51 Ur Squamous Epith Cells FEW Squamous (<= Few) 06/26/21 22:51 Urine Bacteria Few /HPF (None Seen) 06/26/21 22:51 Urine Casts 3-5 Hyaline Casts /LPF 06/26/21 22:51 Ur Microscopic Review INDICATED 06/26/21 22:51 Urine Culture Comments INDICATED 06/26/21 22:51 Nasal Adenovirus (PCR) NOT DETECTED 06/27/21 01:23 Nasal B. parapertussis DNA (PCR) NOT DETECTED 06/27/21 01:23 Nasal Coronavir 229E PCR NOT DETECTED 06/27/21 01:23 Nasal Coronavir HKU1 PCR NOT DETECTED 06/27/21 01:23 Nasal Coronavir NL63 PCR NOT DETECTED 06/27/21 01:23 Nasal Coronavir OC43 PCR NOT DETECTED 06/27/21 01:23 Nasal Enterovir/Rhinovir PCR NOT DETECTED 06/27/21 01:23 Nasal Influenza B PCR NOT DETECTED 06/27/21 01:23 Nasal Influenza A PCR NOT DETECTED 06/27/21 01:23 Nasal Parainfluen 1 PCR NOT DETECTED 06/27/21 01:23 Nasal Parainfluen 2 PCR NOT DETECTED 06/27/21 01:23 Nasal Parainfluen 3 PCR NOT DETECTED 06/27/21 01:23 Nasal Parainfluen 4 PCR NOT DETECTED 06/27/21 01:23 Nasal RSV (PCR) NOT DETECTED 06/27/21 01:23 Nasal Screen MRSA (PCR) NEGATIVE (NEGATIVE) 06/26/21 21:55 Nasal B.pertussis DNA PCR NOT DETECTED 06/27/21 01:23 Nasal C.pneumoniae (PCR) NOT DETECTED 06/27/21 01:23 Mk Human Metapneumo PCR NOT DETECTED 06/27/21 01:23 Nasal M.pneumoniae (PCR) NOT DETECTED 06/27/21 01:23 Nasal SARS-CoV-2 (PCR) DETECTED A 06/27/21 01:23 - Procedures Procedures: Procedures RESPIRATORY VENTILATION, LESS THAN 24 CONSECUTIVE HOURS (01/11/20) Sepsis Event Note (H) - Evaluation Current Stage of Sepsis: Septic shock Possible source of Sepsis: positive: GI tract/intra-abdominal - Sepsis Criteria Sepsis Criteria: WBC count greater than 10% bands, SBP drop more than 40mHg, MAP less than 65 mmHg, SBP less than 90 mmHg, Renal: urine output less than 0.5ml/kg/hr for 2 hours or creatinine gr, Metabolic: lactate > 2 mmol/L ABX Reporting Has patient been on IV antibiotics over the past 48 hours?: Yes Current Medications - Current Medications Current Medications: Current Medications Generic Name Dose Route Start Last Admin Trade Name Freq PRN Reason Stop Dose Admin Calcium Carbonate/Glycine 500 mg 07/02/21 21:00 07/05/21 08:58 Calcium Carbonate Chew 500 Mg Tablet PO 500 mg BID JULIETA Administration Chlorhexidine Gluconate 15 ml 06/27/21 21:00 07/05/21 08:59 Chlorhexidine Gluconate 15 Ml Udc PO 15 ml BID JULIETA Administration Enoxaparin Sodium 40 mg 06/28/21 09:00 07/05/21 08:59 Enoxaparin 40 Mg/0.4 Ml Syringe SUBQ 40 mg DAILY JULIETA Administration Glycopyrrolate 0.2 mg 06/28/21 21:17 07/05/21 11:45 Glycopyrrolate 1 Mg/5 Ml Vial SUBQ 0.2 mg Q6H PRN Administration Excessive Secretions Fluconazole 100 mls @ 100 mls/hr 06/27/21 09:00 07/05/21 10:00 Diflucan 200 Mg/100 Ml IV Infused DAILY JULIETA Infusion Norepinephrine Bitartrate 8 mg 250 mls @ 15 mls/hr 06/26/21 23:00 07/05/21 17:00 / Dextrose IV 0 mcg/min .[id number] JULIETA 0 mls/hr Titration Protocol 8 MCG/MIN Sodium Chloride 500 mls @ 20 mls/hr 06/26/21 23:03 06/30/21 19:27 Normal Saline 0.9% IV Infused Q24H PRN Infusion TKO RATE Dexmedetomidine HCl 400 mcg/ 100 mls @ 8.3 mls/hr 06/27/21 18:00 07/05/21 17:00 Sodium Chloride IV 0.4 mcg/kg/hr .Q12H3M JULIETA 8.3 mls/hr Titration Protocol 0.4 MCG/KG/HR Multivitamins 10 ml/ TRACE 2,011 mls @ 75 mls/hr 06/27/21 19:00 07/05/21 1 7:00 ELEMENTS 1 ml/ Amino Ac/ IV 75 mls/hr Electrol/Dextrose/Calcium Q24H JULIETA Infusion Protocol Cefepime HCl 2 gm/ Sodium 100 mls @ 200 mls/hr 06/27/21 18:00 07/05/21 09:35 Chloride IV Infused BID JULIETA Infusion Metronidazole 500 mg in 100 mls @ 100 mls/hr 06/29/21 09:00 07/05/21 17:12 Flagyl 500 Mg/100 Ml IV 100 mls/hr Q8H JULIETA Administration Iron Dextran 200 mg/ Sodium 104 mls @ 104 mls/hr 07/04/21 11:00 07/05/21 11:06 Chloride IV 07/06/21 09:59 Infused DAILY JULIETA Infusion Lorazepam 0.5 mg 06/26/21 20:54 07/05/21 13:05 Lorazepam 2 Mg/Ml Vial IVP 0.5 mg Q1H PRN Administration Anxiety Midazolam HCl 2 mg 06/28/21 00:24 07/04/21 00:23 Midazolam 2 Mg/2 Ml Vial IVP 2 mg Q2H PRN Administration Agitation Mineral Oil 1 applic 07/01/21 01:24 07/05/21 09:01 Min Oil/Dimethicon/Coconut Oil 92 Gm Tube TOP 1 ea PRN PRN Administration Skin Care Oxycodone HCl 5 mg 07/05/21 15:57 07/05/21 16:08 Oxycodone 5 Mg Tablet PO 5 mg Q4HR PRN Administration PAIN Pantoprazole Sodium 40 mg 06/27/21 07:00 07/05/21 06:42 Pantoprazole 40 Mg Vial IVP 40 mg QDAC JULIETA Administration Scopolamine HBr 1 patch 07/03/21 11:00 07/03/21 11:30 Scopolamine Patch TOP 1 patch Q3D JULIETA Administration Sodium Chloride 10 ml 06/27/21 01:00 07/05/21 17:24 Sodium Chloride Flush 0.9% 10 Ml Syringe IVP 10 ml 0100,0900,1700 JULIETA Administration Sodium Chloride 10 ml 06/26/21 20:54 07/05/21 06:42 Sodium Chloride Flush 0.9% 10 Ml Syringe IVP 10 ml PRN PRN Administration NEEDED PER PROVIDER ORDERS Sodium Chloride 20 ml 06/26/21 23:03 07/05/21 05:31 Sodium Chloride Flush 0.9% 10 Ml Syringe IVP 20 ml PRN PRN Administration After Blood Draw Sodium Phosphate 250 mg 07/02/21 17:00 07/05/21 17:25 Neutra-Phos 250 Mg Tablet PO 250 mg TIDWM JULIETA Administration
[2021-07-05] MEDS ORDERED: POTASSIUM CHLOR 20 MEQ/100 ML 20 MEQ/100 ML BAG IV SCH ×2 (19:00→20:00)
[2021-07-05 19:15] LABS: CALCIUM 8.3 mg/dL (8.5-10.3); CREATININE 0.5 mg/dL (0.4-1.0); POTASSIUM 4.5 mmol/L (3.5-5.0)
[2021-07-05] MEDS: TPN (CLINIMIX E 5/15) 2,000 ML with MULTIVITAMIN 10 ML, TRACE ELEMENTS 1 ML IV SCH ×3 (19:16)
[2021-07-05] MEDS: FAT EMUL/SOY/MCT/OLIV/FISH OIL 50 GM/250 ML BAG IV SCH (19:17)
[2021-07-05] MEDS: HYDROmorphone 0.5 MG/0.5 ML SYRINGE IVP PRN ×2 (19:36→22:02)
[2021-07-05] MEDS: LACTULOSE 10 GM /15 ML UDC PO SCH (20:37)
[2021-07-05] MEDS: QUEtiapine 100 MG TABLET PO SCH (20:38)
[2021-07-05] MEDS: PHENOL THROAT SPRAY 177 ML MM PRN (22:02)
[2021-07-06] MEDS: HYDROmorphone 0.5 MG/0.5 ML SYRINGE IVP PRN ×5 (02:06→23:29)
[2021-07-06] MEDS: SODIUM CHLORIDE FLUSH 0.9% 10 ML SYRINGE IVP PRN ×5 (02:06→06:32)
[2021-07-06] MEDS: metroNIDAZOLE 500 MG/100 ML 500 MG/100 ML BAG IV SCH ×3 (02:06→17:01)
[2021-07-06] MEDS: LORazepam 2 MG/ML VIAL IVP PRN ×2 (02:06→09:06)
[2021-07-06 05:49] LABS: HCT - HEMATOCRIT 25.2 % (37.0-47.0); HGB - HEMOGLOBIN 7.6 g/dL (12.0-16.0); MEAN CORPUSCULAR HEMOGLOBIN 28.6 pg (27.0-31.0); MEAN CORPUSCULAR HGB CONC 30.2 g/dL (32.0-36.0); MEAN CORPUSCULAR VOLUME 94.7 fL (81.0-99.0); MEAN PLATELET VOLUME 11.8 fL (7.9-10.8); RED BLOOD COUNT 2.66 10^6/uL (4.20-5.40); RED CELL DISTRIBUTION WIDTH 19.6 % (12.0-15.0); WHITE BLOOD COUNT 9.6 x10^3/uL (4.8-10.8)
[2021-07-06 06:10] LABS: ALBUMIN 2.1 g/dL (3.2-5.5); ALBUMIN/GLOBULIN RATIO 0.8 (1.0-2.2); BILIRUBIN,TOTAL 0.4 mg/dL (0.2-1.0); CALCIUM 8.2 mg/dL (8.5-10.3); CREATININE 0.5 mg/dL (0.4-1.0); PHOSPHORUS 3.1 mg/dL (2.5-4.6); POTASSIUM 4.2 mmol/L (3.5-5.0); TOTAL PROTEIN 4.7 g/dL (6.7-8.2)
[2021-07-06] MEDS: PANTOPRAZOLE 40 MG VIAL IVP SCH (06:32)
[2021-07-06] MEDS: PHENOL THROAT SPRAY 177 ML MM PRN ×2 (06:33→23:35)
[2021-07-06] MEDS: CEFEPIME 2 GM in SODIUM CHLORIDE 0.9% MINIBAG 100 ML IV SCH ×2 (08:53→20:17)
[2021-07-06] MEDS: ENOXAPARIN 40 MG/0.4 ML SYRINGE SUBQ SCH (08:54)
[2021-07-06] MEDS ORDERED: FUROSEMIDE 20 MG/2 ML VIAL IVP SCH (09:00)
[2021-07-06] MEDS: GLYCOPYRROLATE 1 MG/5 ML VIAL SUBQ PRN ×2 (09:03→23:35)
[2021-07-06] MEDS: QUEtiapine 100 MG TABLET PO SCH ×2 (09:12→20:17)
[2021-07-06] MEDS: CALCIUM CARBONATE CHEW 500 MG TABLET PO SCH ×2 (09:12→20:17)
[2021-07-06] MEDS: NEUTRA-PHOS 250 MG TABLET PO SCH ×3 (09:12→17:00)
[2021-07-06] MEDS: LACTULOSE 10 GM /15 ML UDC PO SCH ×2 (09:13→20:17)
[2021-07-06] MEDS: CHLORHEXIDINE GLUCONATE 15 ML UDC PO SCH ×2 (09:13→20:16)
[2021-07-06] MEDS: FLUCONAZOLE 200 MG/100 ML 100 ML IV SCH (09:52)
[2021-07-06] MEDS: DEXMEDETOMIDINE 400 MCG in SODIUM CHLORIDE 0.9% 100ML 96 ML IV SCH ×2 (10:45→21:29)
[2021-07-06] MEDS: SODIUM CHLORIDE FLUSH 0.9% 10 ML SYRINGE IVP SCH ×2 (10:57→18:49)
[2021-07-06] MEDS: SCOPOLAMINE PATCH TOP SCH (10:57)
[2021-07-06] MEDS: IRON DEXTRAN 200 MG in SODIUM CHLORIDE 0.9% 100ML 100 ML IV SCH (11:03)
--- NOTE | 2021-07-06 14:10 | XRAY Report ---
PROCEDURE: Chest 1 View X-Ray INDICATIONS: Intubated, Follow up TECHNIQUE: One view of the chest was acquired. COMPARISON: 07/05/2021. FINDINGS: Surgical changes and devices: Left chest wall cardiac pacer is stable. NG tube and central venous cat heter stable. Lungs and pleura: Small right and trace left pleural effusions. Bilateral lung pulmonary edema has wo rsened in the interval since prior exam.. Mediastinum: Mediastinal contours appear normal. Heart is enlarged. Bones and chest wall: No suspicious bony lesions. Overlying soft tissues appear unremarkable. IMPRESSION: Worsening CHF. Reviewed by: Leni Hernández MD, PhD on 07/06/2021 2:09 PM PDT Approved by: Leni Hernández MD, PhD on 07/06/2021 2:09 PM PDT Station ID: [id number]
--- NOTE | 2021-07-06 14:47 | PROVIDER PROGRESS NOTE ---
Subjective - General Admit Date: 06/26/21 Procedure Date: 06/26/21 Post Op Days: 10 Procedure Performed: Exploratory laparotomy with repair of posterior duodenal ulcer - Review of Systems Wound/Incisions: positive: Healing well Drain Type: 19 Lao Tanner Drain Output Description: Serosanguineous Objective - Patient Data Reviewed Vital Signs: Yes Vital Signs: Vital Signs x48h Temp Pulse Resp BP Pulse Ox 07/06/21 13:00 85 20 116/41 L 98 07/06/21 12:00 36.1 C L 82 20 112/51 L 96 07/06/21 11:00 99 22 125/53 L 97 07/06/21 10:00 91 21 122/61 97 07/06/21 09:00 92 21 141/60 H 95 07/06/21 08:00 36.2 C L 81 17 125/45 L 94 07/06/21 07:00 36.6 C 94 18 102/58 L 97 Weight: Weight 07/04/21 07/05/21 07/06/21 23:59 23:59 23:59 Weight (kg) 87 kg 89 kg 90 kg Intake & Output: Intake and Output Totals x24h 07/04/21 07/05/21 07/06/21 23:59 23:59 23:59 Intake Total 4060.943 3405.166 2163.408 Output Total 20140 1710 Balance 2045.943 495.166 453.408 - Lab Results Lab Results: 07/06/21 05:10 07/06/21 05:10 Other Lab Results: Lab Results x24hrs 07/06/21 07/06/21 07/05/21 Range/Units 05:10 05:10 19:01 WBC 9.6 (4.8-10.8) x10^3/uL RBC 2.66 L (4.20-5.40) 10^6/uL Hgb 7.6 L (12.0-16.0) g/dL Hct 25.2 L (37.0-47.0) % MCV 94.7 (81.0-99.0) fL MCH 28.6 (27.0-31.0) pg MCHC 30.2 L (32.0-36.0) g/dL RDW 19.6 H (12.0-15.0) % Plt Count 395 (130-450) 10^3/uL MPV 11.8 H (7.9-10.8) fL Sodium 138 139 (135-145) mmol/L Potassium 4.2 4.5 (3.5-5.0) mmol/L Chloride 110 109 (101-111) mmol/L Carbon Dioxide 23 23 (21-32) mmol/L Anion Gap 5.0 L 7.0 (6-13) BUN 24 H 23 H (6-20) mg/dL Creatinine 0.5 0.5 (0.4-1.0) mg/dL Estimated GFR (MDRD) 119 119 (>89) Glucose 160 H 145 H (70-100) mg/dL Calcium 8.2 L 8.3 L (8.5-10.3) mg/dL Phosphorus 3.1 (2.5-4.6) mg/dL Magnesium 2.0 (1.7-2.8) mg/dL Total Bilirubin 0.4 (0.2-1.0) mg/dL AST 13 (10-42) IU/L ALT 10 (10-60) IU/L Alkaline Phosphatase 78 (42-121) IU/L Total Protein 4.7 L (6.7-8.2) g/dL Albumin 2.1 L (3.2-5.5) g/dL Globulin 2.6 (2.1-4.2) g/dL Albumin/Globulin Ratio 0.8 L (1.0-2.2) - Current Medications Current Medications: Current Medications Generic Name Dose Route Start Last Admin Trade Name Freq PRN Reason Stop Dose Admin Calcium Carbonate/Glycine 500 mg 07/02/21 21:00 07/06/21 09:12 Calcium Carbonate Chew 500 Mg Tablet PO 500 mg BID JULIETA Administration Chlorhexidine Gluconate 15 ml 06/27/21 21:00 07/06/21 09:13 Chlorhexidine Gluconate 15 Ml Udc PO 15 ml BID JULIETA Administration Enoxaparin Sodium 40 mg 06/28/21 09:00 07/06/21 08:54 Enoxaparin 40 Mg/0.4 Ml Syringe SUBQ 40 mg DAILY JULIETA Administration Glycopyrrolate 0.2 mg 06/28/21 21:17 07/06/21 09:03 Glycopyrrolate 1 Mg/5 Ml Vial SUBQ 0.2 mg Q6H PRN Administration Excessive Secretions Hydromorphone HCl 0.5 mg 07/05/21 15:57 07/06/21 08:57 Hydromorphone 0.5 Mg/0.5 Ml Syringe IVP 0.5 mg TID PRN Administration PAIN Fluconazole 100 mls @ 100 mls/hr 06/27/21 09:00 07/06/21 10:55 Diflucan 200 Mg/100 Ml IV Infused DAILY JULIETA Infusion Norepinephrine Bitartrate 8 mg 250 mls @ 15 mls/hr 06/26/21 23:00 07/06/21 13:00 / Dextrose IV 6 mcg/min .[id number] JULIETA 11.25 mls/hr Titration Protocol 8 MCG/MIN Sodium Chloride 500 mls @ 20 mls/hr 06/26/21 23:03 06/30/21 19:27 Normal Saline 0.9% IV Infused Q24H PRN Infusion TKO RATE Dexmedetomidine HCl 400 mcg/ 100 mls @ 8.3 mls/hr 06/27/21 18:00 07/06/21 13:00 Sodium Chloride IV 0.4 mcg/kg/hr .Q12H3M JULIETA 8.3 mls/hr Titration Protocol 0.4 MCG/KG/HR Multivitamins 10 ml/ TRACE 2,011 mls @ 75 mls/hr 06/27/21 19:00 07/06/21 13:00 ELEMENTS 1 ml/ Amino Ac/ IV 75 mls/hr Electrol/Dextrose/Calcium Q24H JULIETA Infusion Protocol Cefepime HCl 2 gm/ Sodium 100 mls @ 200 mls/hr 06/27/21 18:00 07/06/21 09:30 Chloride IV Infused BID JULIETA Infusion Metronidazole 500 mg in 100 mls @ 100 mls/hr 06/29/21 09:00 07/06/21 13:00 Flagyl 500 Mg/100 Ml IV 100 mls/hr Q8H JULIETA Infusion Fat Emulsion-Soy/MCT/[place]/Fish Oil 50 gm in 250 mls @ 21 mls/hr 07/05/21 19:00 07/06/21 07:15 Smoflipid 20% Iv Fat Emulsion IV Infused 1900 JULIETA Infusion Lactulose 20 gm 07/05/21 21:00 07/06/21 09:13 Lactulose 10 Gm /15 Ml Udc PO 20 gm BID JULIETA Administration Lorazepam 0.5 mg 06/26/21 20:54 07/06/21 09:06 Lorazepam 2 Mg/Ml Vial IVP 0.5 mg Q1H PRN Administration Anxiety Midazolam HCl 2 mg 06/28/21 00:24 07/04/21 00:23 Midazolam 2 Mg/2 Ml Vial IVP 2 mg Q2H PRN Administration Agitation Mineral Oil 1 applic 07/01/21 01:24 07/05/21 09:01 Min Oil/Dimethicon/Coconut Oil 92 Gm Tube TOP 1 ea PRN PRN Administration Skin Care Oxycodone HCl 5 mg 07/05/21 15:57 07/05/21 16:08 Oxycodone 5 Mg Tablet PO 5 mg Q4HR PRN Administration PAIN Pantoprazole Sodium 40 mg 06/27/21 07:00 07/06/21 06:32 Pantoprazole 40 Mg Vial IVP 40 mg QDAC JULIETA Administration Phenol/Menthol 2 sprays 07/05/21 21:24 07/06/21 06:33 Phenol Throat [place] 177 Ml MM 2 sprays Q2HR PRN Administration Throat Pain Quetiapine Fumarate 100 mg 07/05/21 21:00 07/06/21 09:12 Quetiapine 100 Mg Tablet PO 100 mg BID JULIETA Administration Scopolamine HBr 1 patch 07/03/21 11:00 07/06/21 10:57 Scopolamine Patch TOP 1 patch Q3D JULIETA Administration Sodium Chloride 10 ml 06/27/21 01:00 07/06/21 10:57 Sodium Chloride Flush 0.9% 10 Ml Syringe IVP 10 ml 0100,0900,1700 JULIETA Administration Sodium Chloride 10 ml 06/26/21 20:54 07/06/21 06:32 Sodium Chloride Flush 0.9% 10 Ml Syringe IVP 10 ml PRN PRN Administration NEEDED PER PROVIDER ORDERS Sodium Chloride 20 ml 06/26/21 23:03 07/06/21 05:08 Sodium Chloride Flush 0.9% 10 Ml Syringe IVP 20 ml PRN PRN Administration After Blood Draw Sodium Phosphate 250 mg 07/02/21 17:00 07/06/21 12:01 Neutra-Phos 250 Mg Tablet PO 250 mg TIDWM JULIETA Administration - Physical Exam Wound/Incisions: positive: Healing well. negative: Drainage Abdomen: positive: Non-tender Impression/Plan - Problem List Problem List: 81-year-old female postop day 9 status post repair of perforated posterior duodenal ulcer with extensive contamination. Heineke-Mikulicz pyloroplasty was done with Gray patch. Tanner drain was placed in the area of the perforation and has nonpurulent drainage. The patient continues on antibiotics and was extubated within the past 24 hours. She is on TPN and this should be continued until she is awake enough to begin taking p.o. Continue PPI and Lovenox. Chest x-ray report today shows increased CHF which will be managed by the hospitalist service.
--- NOTE | 2021-07-06 14:50 | PROVIDER PROGRESS NOTE ---
Assessment/Plan - Problem List (1) Acute respiratory failure Assessment/Plan: Intubated since postop, w/o clear source evidence of PNA, Extubated on 07/05, o2 demand continue to go down, ddx: pulmonary edema, possibly iatrogenic ivf given in periop period, CHF. CXR today suggestive of worsening CHF. -will continue titrate o2 supplement, -continue diuresis with daily lasix 20mg iv for now, pt seems to have good uop, will try bid (2) Iron deficiency anemia Assessment/Plan: Started Iron 07/04, h/h slowly trending down wo signs of active bleeding, as per surgery, wound looks good without hematoma. plt count stable despite dvt ppx with LMWH, -will target hgb>7, transfuse as needed, -h/h continues to trend down, will repeat CT a/p (3) Septic shock Assessment/Plan: Resolved (4) Anasarca Assessment/Plan: See above Started Lasix 20 mg, titrate up as BP allows (5) Perforated duodenal ulcer Assessment/Plan: Per surgery - no evidence of bleeding Defer to surgery when to use NG for feeds - will help get fluid off when not relying on TPN for nutrition (6) Hypothyroidism Qualifiers: Hypothyroidism type: acquired Qualified Code(s): E03.9 - Hypothyroidism, unspecified Assessment/Plan: Resume synthroid (7) Schizophrenia Qualifiers: Schizophrenia type: schizophreniform disorder Qualified Code(s): F20.81 - Schizophreniform disorder Assessment/Plan: Stable Resume seroqeul (8) Ileus following gastrointestinal surgery Assessment/Plan: Reviewed abd xray Ileus seen Trial of lactulose per NG - Current Meds Current Meds: Current Medications Generic Name Dose Route Start Last Admin Trade Name Freq PRN Reason Stop Dose Admin Calcium Carbonate/Glycine 500 mg 07/02/21 21:00 07/06/21 09:12 Calcium Carbonate Chew 500 Mg Tablet PO 500 mg BID JULIETA Administration Chlorhexidine Gluconate 15 ml 06/27/21 21:00 07/06/21 09:13 Chlorhexidine Gluconate 15 Ml Udc PO 15 ml BID JULIETA Administration Enoxaparin Sodium 40 mg 06/28/21 09:00 07/06/21 08:54 Enoxaparin 40 Mg/0.4 Ml Syringe SUBQ 40 mg DAILY JULIETA Administration Glycopyrrolate 0.2 mg 06/28/21:17 07/06/21 09:03 Glycopyrrolate 1 Mg/5 Ml Vial SUBQ 0.2 mg Q6H PRN Administration Excessive Secretions Hydromorphone HCl 0.5 mg 07/05/21 15:57 07/06/21 08:57 Hydromorphone 0.5 Mg/0.5 Ml Syringe IVP 0.5 mg TID PRN Administration PAIN Fluconazole 100 mls @ 100 mls/hr 06/27/21 09:00 07/06/21 10:55 Diflucan 200 Mg/100 Ml IV Infused DAILY JULIETA Infusion Norepinephrine Bitartrate 8 mg 250 mls @ 15 mls/hr 06/26/21 23:00 07/06/21 14:40 / Dextrose IV 5 mcg/min .[id number] JULIETA 9.375 mls/hr Titration Protocol 8 MCG/MIN Sodium Chloride 500 mls @ 20 mls/hr 06/26/21 23:03 06/30/21 19:27 Normal Saline 0.9% IV Infused Q24H PRN Infusion TKO RATE Dexmedetomidine HCl 400 mcg/ 100 mls @ 8.3 mls/hr 06/27/21 18:00 07/06/21 13:00 Sodium Chloride IV 0.4 mcg/kg/hr .Q12H3M JULIETA 8.3 mls/hr Titration Protocol 0.4 MCG/KG/HR Multivitamins 10 ml/ TRACE 2,011 mls @ 75 mls/hr 06/27/21 19:00 07/06/21 13:00 ELEMENTS 1 ml/ Amino Ac/ IV 75 mls/hr Electrol/Dextrose/Calcium Q24H JULIETA Infusion Protocol Cefepime HCl 2 gm/ Sodium 100 mls @ 200 mls/hr 06/27/21 18:00 07/06/21 09:30 Chloride IV Infused BID JULIETA Infusion Metronidazole 500 mg in 100 mls @ 100 mls/hr 06/29/21 09:00 07/06/21 14:46 Flagyl 500 Mg/100 Ml IV Infused Q8H JULIETA Infusion Fat Emulsion-Soy/MCT/[place]/Fish Oil 50 gm in 250 mls @ 21 mls/hr 07/05/21 19:00 07/06/21 07:15 Smoflipid 20% Iv Fat Emulsion IV Infused 1900 JULIETA Infusion Lactulose 20 gm 07/05/21 21:00 07/06/21 09:13 Lactulose 10 Gm /15 Ml Udc PO 20 gm BID JULIETA Administration Lorazepam 0.5 mg 06/26/21 20:54 07/06/21 09:06 Lorazepam 2 Mg/Ml Vial IVP 0.5 mg Q1H PRN Administration Anxiety Midazolam HCl 2 mg 06/28/21 00:24 07/04/21 00:23 Midazolam 2 Mg/2 Ml Vial IVP 2 mg Q2H PRN Administration Agitation Mineral Oil 1 applic 07/01/21 01:24 07/05/21 09:01 Min Oil/Dimethicon/Coconut Oil 92 Gm Tube TOP 1 ea PRN PRN Administration Skin Care Oxycodone HCl 5 mg 07/05/21 15:57 07/05/21 16:08 Oxycodone 5 Mg Tablet PO 5 mg Q4HR PRN Administration PAIN Pantoprazole Sodium 40 mg 06/27/21 07:00 07/06/21 06:32 Pantoprazole 40 Mg Vial IVP 40 mg QDAC JULIETA Administration Phenol/Menthol 2 sprays 07/05/21 21:24 07/06/21 06:33 Phenol Throat [place] 177 Ml MM 2 sprays Q2HR PRN Administration Throat Pain Quetiapine Fumarate 100 mg 07/05/21 21:00 07/06/21 09:12 Quetiapine 100 Mg Tablet PO 100 mg BID JULIETA Administration Scopolamine HBr 1 patch 07/03/21 11:00 07/06/21 10:57 Scopolamine Patch TOP 1 patch Q3D JULIETA Administration Sodium Chloride 10 ml 06/27/21 01:00 07/06/21 10:57 Sodium Chloride Flush 0.9% 10 Ml Syringe IVP 10 ml 0100,0900,1700 JULIETA Administration Sodium Chloride 10 ml 06/26/21 20:54 07/06/21 06:32 Sodium Chloride Flush 0.9% 10 Ml Syringe IVP 10 ml PRN PRN Administration NEEDED PER PROVIDER ORDERS Sodium Chloride 20 ml 06/26/21 23:03 07/06/21 05:08 Sodium Chloride Flush 0.9% 10 Ml Syringe IVP 20 ml PRN PRN Administration After Blood Draw Sodium Phosphate 250 mg 07/02/21 17:00 07/06/21 12:01 Neutra-Phos 250 Mg Tablet PO 250 mg TIDWM JULIETA Administration - Lab Result Fish Bone Diagrams: 07/06/21 05:10 07/06/21 05:10 Subjective - Subjective Patient Reports: Other Nursing Reports: Sedated (pt was still sedated with Precedex, still requires pressors levophed to 10mcg, titrating down, noted good UOP, good oxygenation on 2-3liters NC. pt was sedated, unable to answer any questions.) Objective Vital Signs: Vital Signs - 24 hr 07/05/21 07/05/21 07/05/21 15:00 16:00 17:00 Temperature 37 C Heart Rate [ 84 92 96 Monitoring electrodes] Respiratory 23 26 H 24 Rate Blood Pressure 98/52 L 100/44 L 111/42 L [Left Brachial artery] O2 Saturation 100 100 100 07/05/21 07/05/21 07/05/21 18:00 19:01 19:28 Temperature 36.3 C L Heart Rate [ 90 94 Monitoring electrodes] Respiratory 22 24 Rate Blood Pressure 105/52 L 90/34 L [Left Brachial artery] O2 Saturation 98 98 07/05/21 07/05/21 07/05/21 19:55 20:00 20:05 Temperature Heart Rate [ 93 96 Monitoring electrodes] Respiratory 22 Rate Blood Pressure 98/44 L 112/47 L 110/40 L [Left Brachial artery] O2 Saturation 100 07/05/21 07/05/21 07/05/21 20:10 20:15 20:20 Temperature Heart Rate [ 91 80 91 Monitoring electrodes] Respiratory Rate Blood Pressure 99/43 L 99/56 L 92/39 L [Left Brachial artery] O2 Saturation 07/05/21 07/05/21 07/05/21 20:25 20:30 20:40 Temperature Heart Rate [ 86 90 95 Monitoring electrodes] Respiratory Rate Blood Pressure 93/41 L 98/42 L 112/44 L [Left Brachial artery] O2 Saturation 07/05/21 07/05/21 07/05/21 20:45 21:00 22:00 Temperature 36.7 C Heart Rate [ 93 74 79 Monitoring electrodes] Respiratory 23 24 Rate Blood Pressure 119/40 L 127/45 L 112/45 L [Left Brachial artery] O2 Saturation 97 94 07/05/21 07/06/21 07/06/21 23:00 00:00 01:00 Temperature 36.6 C 36.6 C Heart Rate [ 74 88 78 Monitoring electrodes] Respiratory 23 24 21 Rate Blood Pressure 114/88 H 93/69 99/44 L [Left Brachial artery] O2 Saturation 97 98 98 07/06/21 07/06/21 07/06/21 02:00 03:00 04:00 Temperature 36.3 C L Heart Rate [ 84 84 85 Monitoring electrodes] Respiratory 22 23 19 Rate Blood Pressure 110/44 L 111/86 H 102/41 L [Left Brachial artery] O2 Saturation 98 98 99 07/06/21 07/06/21 07/06/21 05:15 06:00 07:00 Temperature 36.6 C 36.6 C 36.6 C Heart Rate [ 94 87 94 Monitoring electrodes] Respiratory 24 19 18 Rate Blood Pressure 111/44 L 118/55 L 102/58 L [Left Brachial artery] O2 Saturation 99 99 97 07/06/21 07/06/21 07/06/21 08:00 09:00 10:00 Temperature 36.2 C L Heart Rate [ 81 92 91 Monitoring electrodes] Respiratory 17 21 21 Rate Blood Pressure 125/45 L 141/60 H 122/61 [Left Brachial artery] O2 Saturation 94 95 97 07/06/21 07/06/21 07/06/21 11:00 12:00 13:00 Temperature 36.1 C L Heart Rate [ 99 82 85 Monitoring electrodes] Respiratory 22 20 20 Rate Blood Pressure 125/53 L 112/51 L 116/41 L [Left Brachial artery] O2 Saturation 97 96 98 Oxygen O2 Source NC with humidity I&O (Last 24 Hrs): Intake and Output Totals x24h 07/04/21 07/05/21 07/06/21 23:59 23:59 23:59 Intake Total 4060.943 3405.166 2258.825 Output Total 20140 1710 Balance 2045.943 495.166 548.825 General: Other (sedated) Cardiovascular: Regular rate, Normal S1, Normal S2, No murmurs Respiratory: Other (coarse BS throughout anteriorly no wheezing.) Abdomen: Normal bowel sounds, Soft, No tenderness, No hepatospenomegaly, No masses Extremities: Other (pt was in anasarca, pitting edema noted throughout including upper torso) Comments/Notes: RIJ cvc in place, NGT and szymanski cath in place - Results Results: Laboratory Results WBC 9.6 x10^3/uL (4.8-10.8) 07/06/21 05:10 RBC 2.66 10^6/uL (4.20-5.40) L 07/06/21 05:10 Hgb 7.6 g/dL (12.0-16.0) L 07/06/21 05:10 Hct 25.2 % (37.0-47.0) L 07/06/21 05:10 MCV 94.7 fL (81.0-99.0) 07/06/21 05:10 MCH 28.6 pg (27.0-31.0) 07/06/21 05:10 MCHC 30.2 g/dL (32.0-36.0) L 07/06/21 05:10 RDW 19.6 % (12.0-15.0) H 07/06/21 05:10 Plt Count 395 10^3/uL (130-450) 07/06/21 05:10 MPV 11.8 fL (7.9-10.8) H 07/06/21 05:10 Neut # (Auto) 5.9 10^3/uL (1.5-6.6) 07/03/21 07:30 Lymph # (Auto) 1.0 10^3/uL (1.5-3.5) L 07/03/21 07:30 [place] # (Auto) 0.6 10^3/uL (0.0-1.0) 07/03/21 07:30 Eos # (Auto) 0.5 10^3/uL (0.0-0.7) 07/03/21 07:30 Baso # (Auto) 0.0 10^3/uL (0.0-0.1) 07/03/21 07:30 Absolute Nucleated RBC 0.00 x10^3/uL 07/03/21 07:30 Total Counted 100 06/27/21 04:20 Band Neuts % (Manual) 26 % (0-10) H 06/27/21 04:20 Abnorm Lymph % (Manual) 0 % 06/27/21 04:20 Nucleated RBC % 0.0 /100WBC 07/03/21 07:30 Neutrophils # (Manual) 11.3 10^3/uL (1.5-6.6) H 06/27/21 04:20 Lymphocytes # (Manual) 1.1 10^3/uL (1.5-3.5) L 06/27/21 04:20 Monocytes # (Manual) 0.1 10^3/uL (0.0-1.0) 06/27/21 04:20 Eosinophils # (Manual) 0.0 10^3/uL (0-0.7) 06/27/21 04:20 Basophils # (Manual) 0.0 10^3/uL (0-0.1) 06/27/21 04:20 Differential Comment MANUAL DIFFERENTIAL 06/27/21 04:20 Manual Slide Review Indicated 07/01/21 05:34 WBC Morphology NORMAL APPEARANCE (NORMAL) 07/01/21 05:34 Platelet Estimate NORMAL (130-450,000) (NORMAL) 07/01/21 05:34 Platelet Morphology NORMAL APPEARANCE (NORMAL) 07/01/21 05:34 RBC Morph Micro Appear 1+ ANISOCYTOSIS (NORMAL) 07/01/21 05:34 Bld Gas Analysis Time 1100 07/05/21 11:00 Sample Site RIGHT RADIAL 07/05/21 11:00 ABG pH 7.38 (7.35-7.45) 07/05/21 11:00 ABG pCO2 31 mmHg (34-45) L 07/05/21 11:00 ABG pO2 77 mmHg (80-100) L 07/05/21 11:00 ABG HCO3 17.7 mmol/L (22.0-26.0) L 07/05/21 11:00 ABG Total CO2 18.7 MMOL/L (21.0-29.0) L 07/05/21 11:00 ABG O2 Saturation 95 % (94-98) 07/05/21 11:00 ABG Base Excess -6.5 mmol/L (-2.0-3.0) L 07/05/21 11:00 Ruperto Test POSITIVE 07/05/21 11:00 VBG pH 7.344 (7.31-7.41) 07/04/21 04:43 Ionized Calcium 1.16 mmol/L (1.15-1.33) 07/04/21 04:43 Respiration Rate 16 b/min 06/30/21 03:38 O2 Delivery Device VENTILATOR 07/05/21 11:00 Vent Mode CPAP 07/05/21 11:00 FiO2 30.00 07/05/21 11:00 Tidal Volume 400 mL 06/30/21 03:38 PEEP 5 cmH2O 07/05/21 11:00 Pressure Support Vent 12 cmH2O 07/05/21 11:00 IPAP Not Reportable 06/27/21 05:43 Sodium 138 mmol/L (135-145) 07/06/21 05:10 Potassium 4.2 mmol/L (3.5-5.0) 07/06/21 05:10 Chloride 110 mmol/L (101-111) 07/06/21 05:10 Carbon Dioxide 23 mmol/L (21-32) 07/06/21 05:10 Anion Gap 5.0 (6-13) L 07/06/21 05:10 BUN 24 mg/dL (6-20) H 07/06/21 05:10 Creatinine 0.5 mg/dL (0.4-1.0) 07/06/21 05:10 Estimated GFR (MDRD) 119 (>89) 07/06/21 05:10 Glucose 160 mg/dL (70-100) H 07/06/21 05:10 Lactic Acid 1.6 mmol/L (0.5-2.2) 06/27/21 21:01 Calcium 8.2 mg/dL (8.5-10.3) L 07/06/21 05:10 Ionized Calcium YES 07/04/21 04:43 Phosphorus 3.1 mg/dL (2.5-4.6) 07/06/21 05:10 Magnesium 2.0 mg/dL (1.7-2.8) 07/06/21 05:10 Iron 11 ug/dL (28-170) L 07/04/21 04:43 TIBC 115 ug/dL (250-450) L 07/04/21 04:43 % Saturation 10 % (20-50) L 07/04/21 04:43 Transferrin 82 mg/dL (192-382) L 07/04/21 04:43 Total Bilirubin 0.4 mg/dL (0.2-1.0) 07/06/21 05:10 AST 13 IU/L (10-42) 07/06/21 05:10 ALT 10 IU/L (10-60) 07/06/21 05:10 Alkaline Phosphatase 78 IU/L (42-121) 07/06/21 05:10 Troponin I High Sens 99.6 ng/L (2.3-14.8) H* 06/27/21 08:08 C-Reactive Protein 7.1 mg/dL (0-1.0) H 07/04/21 04:43 B-Natriuretic Peptide 919 pg/mL (5-100) H 07/03/21 07:30 Total Protein 4.7 g/dL (6.7-8.2) L 07/06/21 05:10 Albumin 2.1 g/dL (3.2-5.5) L 07/06/21 05:10 Globulin 2.6 g/dL (2.1-4.2) 07/06/21 05:10 Albumin/Globulin Ratio 0.8 (1.0-2.2) L 07/06/21 05:10 Prealbumin 11 mg/dL (18-45) L 07/05/21 05:31 Triglycerides 64 mg/dL (-149) 07/05/21 05:31 Lipase 42 U/L (22-51) 06/26/21 14:26 TSH 3.29 uIU/mL (0.34-5.60) 07/02/21 04:42 Free T4 0.97 ng/dL (0.58-1.64) 07/02/21 04:42 Cortisol AM Sample 6.1 ug/dL 07/05/21 05:31 Urine Color YELLOW 06/26/21 22:51 Urine Clarity CLEAR (CLEAR) 06/26/21 22:51 Urine pH 5.0 PH (5.0-7.5) 06/26/21 22:51 Ur Specific [place] 1.015 (1.002-1.030) 06/26/21 22:51 Urine Protein NEGATIVE mg/dL (NEGATIVE) 06/26/21 22:51 Urine Glucose (UA) NEGATIVE mg/dL (NEGATIVE) 06/26/21 22:51 Urine Ketones NEGATIVE mg/dL (NEGATIVE) 06/26/21 22:51 Urine Occult Blood NEGATIVE (NEGATIVE) 06/26/21 22:51 Urine Nitrite NEGATIVE (NEGATIVE) 06/26/21 22:51 Urine Bilirubin NEGATIVE (NEGATIVE) 06/26/21 22:51 Urine Urobilinogen 0.2 (NORMAL) E.U./dL (NORMAL) 06/26/21 22:51 Ur Leukocyte Esterase TRACE (NEGATIVE) H 06/26/21 22:51 Urine RBC 0-5 /HPF (0-5) 06/26/21 22:51 Urine WBC 4-5 /HPF (0-5) 06/26/21 22:51 Ur Squamous Epith Cells FEW Squamous (<= Few) 06/26/21 22:51 Urine Bacteria Few /HPF (None Seen) 06/26/21 22:51 Urine Casts 3-5 Hyaline Casts /LPF 06/26/21 22:51 Ur Microscopic Review INDICATED 06/26/21 22:51 Urine Culture Comments INDICATED 06/26/21 22:51 Nasal Adenovirus (PCR) NOT DETECTED 06/27/21 01:23 Nasal B. parapertussis DNA (PCR) NOT DETECTED 06/27/21 01:23 Nasal Coronavir 229E PCR NOT DETECTED 06/27/21 01:23 Nasal Coronavir HKU1 PCR NOT DETECTED 06/27/21 01:23 Nasal Coronavir NL63 PCR NOT DETECTED 06/27/21 01:23 Nasal Coronavir OC43 PCR NOT DETECTED 06/27/21 01:23 Nasal Enterovir/Rhinovir PCR NOT DETECTED 06/27/21 01:23 Nasal Influenza B PCR NOT DETECTED 06/27/21 01:23 Nasal Influenza A PCR NOT DETECTED 06/27/21 01:23 Nasal Parainfluen 1 PCR NOT DETECTED 06/27/21 01:23 Nasal Parainfluen 2 PCR NOT DETECTED 06/27/21 01:23 Nasal Parainfluen 3 PCR NOT DETECTED 06/27/21 01:23 Nasal Parainfluen 4 PCR NOT DETECTED 06/27/21 01:23 Nasal RSV (PCR) NOT DETECTED 06/27/21 01:23 Nasal Screen MRSA (PCR) NEGATIVE (NEGATIVE) 06/26/21 21:55 Nasal B.pertussis DNA PCR NOT DETECTED 06/27/21 01:23 Nasal C.pneumoniae (PCR) NOT DETECTED 06/27/21 01:23 Mk Human Metapneumo PCR NOT DETECTED 06/27/21 01:23 Nasal M.pneumoniae (PCR) NOT DETECTED 06/27/21 01:23 Nasal SARS-CoV-2 (PCR) DETECTED A 06/27/21 01:23 - Procedures Procedures: Procedures RESPIRATORY VENTILATION, LESS THAN 24 CONSECUTIVE HOURS (01/11/20) Sepsis Event Note (H) - Evaluation Current Stage of Sepsis: Septic shock Possible source of Sepsis: positive: GI tract/intra-abdominal - Sepsis Criteria Sepsis Criteria: WBC count greater than 10% bands, SBP drop more than 40mHg, MAP less than 65 mmHg, SBP less than 90 mmHg, Renal: urine output less than 0.5ml/kg/hr for 2 hours or creatinine gr, Metabolic: lactate > 2 mmol/L
[2021-07-06] MEDS: FUROSEMIDE 20 MG/2 ML VIAL IVP SCH (16:12)
[2021-07-06] MEDS: TPN (CLINIMIX E 5/15) 2,000 ML with MULTIVITAMIN 10 ML, TRACE ELEMENTS 1 ML IV SCH ×3 (18:39)
[2021-07-06] MEDS: FAT EMUL/SOY/MCT/OLIV/FISH OIL 50 GM/250 ML BAG IV SCH (18:40)
[2021-07-06] MEDS: oxyCODONE 5 MG TABLET PO PRN (19:58)
[2021-07-06] MEDS: MIN OIL/DIMETHICON/COCONUT OIL 92 GM TUBE TOP PRN (20:24)
[2021-07-07] MEDS: SODIUM CHLORIDE FLUSH 0.9% 10 ML SYRINGE IVP PRN ×6 (00:49→15:00)
[2021-07-07] MEDS: SODIUM CHLORIDE FLUSH 0.9% 10 ML SYRINGE IVP SCH ×3 (00:49→17:29)
[2021-07-07] MEDS: LORazepam 2 MG/ML VIAL IVP PRN (00:49)
[2021-07-07] MEDS: metroNIDAZOLE 500 MG/100 ML 500 MG/100 ML BAG IV SCH ×3 (00:54→16:47)
[2021-07-07] MEDS: HYDROmorphone 0.5 MG/0.5 ML SYRINGE IVP PRN ×5 (02:39→18:26)
[2021-07-07 05:45] LABS: HCT - HEMATOCRIT 25.1 % (37.0-47.0); HGB - HEMOGLOBIN 7.8 g/dL (12.0-16.0); MEAN CORPUSCULAR HEMOGLOBIN 29.7 pg (27.0-31.0); MEAN CORPUSCULAR HGB CONC 31.1 g/dL (32.0-36.0); MEAN CORPUSCULAR VOLUME 95.4 fL (81.0-99.0); MEAN PLATELET VOLUME 11.3 fL (7.9-10.8); RED BLOOD COUNT 2.63 10^6/uL (4.20-5.40); RED CELL DISTRIBUTION WIDTH 19.9 % (12.0-15.0); WHITE BLOOD COUNT 9.5 x10^3/uL (4.8-10.8)
[2021-07-07 06:16] LABS: ALBUMIN/GLOBULIN RATIO 0.7 (1.0-2.2); ALKALINE PHOSPHATASE 72 IU/L (42-121); ALT ALANINE AMINOTRANSFERASE < 10 IU/L (10-60); AST ASPARTATE AMINOTRANSFERASE 10 IU/L (10-42); BILIRUBIN,TOTAL 0.5 mg/dL (0.2-1.0); BUN - BLOOD UREA NITROGEN 20 mg/dL (6-20); CARBON DIOXIDE - CO2 25 mmol/L (21-32); CHLORIDE 110 mmol/L (101-111); CREATININE 0.4 mg/dL (0.4-1.0); GFR - MDRD 154 (>89); GLUCOSE 138 mg/dL (70-100); MAGNESIUM 1.9 mg/dL (1.7-2.8); PHOSPHORUS 2.7 mg/dL (2.5-4.6); SODIUM 141 mmol/L (135-145); TOTAL PROTEIN 4.7 g/dL (6.7-8.2)
[2021-07-07] MEDS: LEVOTHYROXINE 75 MCG TABLET PO SCH (06:46)
[2021-07-07] MEDS: PANTOPRAZOLE 40 MG VIAL IVP SCH (06:46)
[2021-07-07] MEDS: CALCIUM CARBONATE CHEW 500 MG TABLET PO SCH ×2 (08:24→20:12)
[2021-07-07] MEDS: NEUTRA-PHOS 250 MG TABLET PO SCH ×3 (08:25→16:58)
[2021-07-07] MEDS: LACTULOSE 10 GM /15 ML UDC PO SCH ×2 (08:26→20:13)
[2021-07-07] MEDS: QUEtiapine 100 MG TABLET PO SCH ×2 (08:26→20:12)
[2021-07-07] MEDS: CEFEPIME 2 GM in SODIUM CHLORIDE 0.9% MINIBAG 100 ML IV SCH ×2 (08:29→20:13)
[2021-07-07] MEDS: ENOXAPARIN 40 MG/0.4 ML SYRINGE SUBQ SCH (08:31)
[2021-07-07] MEDS: CHLORHEXIDINE GLUCONATE 15 ML UDC PO SCH ×2 (08:32→20:12)
[2021-07-07] MEDS: FUROSEMIDE 20 MG/2 ML VIAL IVP SCH ×3 (08:33→20:13)
--- NOTE | 2021-07-07 08:54 | PROVIDER PROGRESS NOTE ---
Assessment/Plan - Problem List (1) Acute encephalopathy Assessment/Plan: pt followed minimal commands, still fairly lethargic since off on sedation in 10 AM, reportedly pt has poor cognitive function at baseline. -will continue to monitor mental status, consider starting PT eval for dispo once pt is more lucid. Acute peritonitis s/p perforated DU. Peritoneal fluid culture on 06/26 ngtd. BCX not available. shock resolved, off on vasopressor 07/07 AM. -continue cefepime, flagyl for now, 06/27- consider 14d course, Anasarca Assessment/Plan: grossly overloaded still from iatrogenic ivf given in periop period -continue diuresis with daily lasix 20mg iv qd increase to bid today 07/07, monitor UOP, consider titrating lasix based on vol status. Perforated duodenal ulcer Assessment/Plan: s/p exploratory laparotomy with repair of posteriorly perforated duodenal ulcer on 06/26 by , course c/b septic shock, prolonged respiratory failure on vent, s/p extubated on 07/05. -awaits surgery eval, tentative plan for po contrast study tomorrow via NG, if pt can start po feeding -continue TPN for now via RIJ CVC(06/26-)Given mentation, pt likely needs modality for salvage determiner feeding, consider inserting PICC line for TPN, would discontinue RIJ cvc, to reduce risks of infection, Iron deficiency anemia Assessment/Plan: Started Iron 07/04, h/h slowly trending down wo signs of active bleeding, as per surgery, wound looks good without hematoma. plt count stable despite dvt ppx with LMWH, -h/h stable today, target hgb>7, transfuse as needed, -if h/h continues to trend down, will repeat CT a/p Ileus following gastrointestinal surgery Assessment/Plan: Reviewed abd xray Ileus seen Trial of lactulose per NG Chronic, stable, resolved, Hypothyroidism Qualifiers: Hypothyroidism type: acquired Qualified Code(s): E03.9 - Hypothyroidism, unspecified Assessment/Plan: Resume synthroid Schizophrenia Qualifiers: Schizophrenia type: schizophreniform disorder Qualified Code(s): F20.81 - Schizophreniform disorder Assessment/Plan: Stable Resume seroqeul Acute respiratory failure requiring reintubation, RESOLVED, Intubated since postop, w/o clear source evidence of PNA, Extubated on 07/05, o2 demand continue to go down, ddx: pulmonary edema, possibly iatrogenic ivf given in periop period, CHF. CXR today suggestive of worsening CHF. pt remained stable on RA since 07/06- Septic shock, RESOLVED secondary to presumed intraabdominal infection s/p perforated DU. Peritoneal fluid culture on 06/26 ngtd. BCX not available. shock resolved, off on vasopressor 07/07 AM. - Current Meds Current Meds: Current Medications Generic Name Dose Route Start Last Admin Trade Name Freq PRN Reason Stop Dose Admin Calcium Carbonate/Glycine 500 mg 07/02/21 21:00 07/07/21 08:24 Calcium Carbonate Chew 500 Mg Tablet PO 500 mg BID JULIETA Administration Chlorhexidine Gluconate 15 ml 06/27/21 21:00 07/07/21 08:32 Chlorhexidine Gluconate 15 Ml Udc PO 15 ml BID JULIETA Administration Enoxaparin Sodium 40 mg 06/28/21 09:00 07/07/21 08:31 Enoxaparin 40 Mg/0.4 Ml Syringe SUBQ 40 mg DAILY JULIETA Administration Glycopyrrolate 0.2 mg 06/28/21 21:17 07/06/21 23:35 Glycopyrrolate 1 Mg/5 Ml Vial SUBQ 0.2 mg Q6H PRN Administration Excessive Secretions Hydromorphone HCl 0.5 mg 07/06/21 22:57 07/07/21 08:31 Hydromorphone 0.5 Mg/0.5 Ml Syringe IVP 0.5 mg Q3H PRN Administration PAIN Fluconazole 100 mls @ 100 mls/hr 06/27/21 09:00 07/06/21 10:55 Diflucan 200 Mg/100 Ml IV Infused DAILY JULIETA Infusion Norepinephrine Bitartrate 8 mg 250 mls @ 15 mls/hr 06/26/21 23:00 07/07/21 08:00 / Dextrose IV 4 mcg/min .[id number] JULIETA 7.5 mls/hr Titration Protocol 8 MCG/MIN Sodium Chloride 500 mls @ 20 mls/hr 06/26/21 23:03 06/30/21 19:27 Normal Saline 0.9% IV Infused Q24H PRN Infusion TKO RATE Multivitamins 10 ml/ TRACE 2,011 mls @ 75 mls/hr 06/27/21 19:00 07/07/21 05:00 ELEMENTS 1 ml/ Amino Ac/ IV 75 mls/hr Electrol/Dextrose/Calcium Q24H JULIETA Infusion Protocol Cefepime HCl 2 gm/ Sodium 100 mls @ 200 mls/hr 06/27/21 18:00 07/07/21 08:29 Chloride IV 200 mls/hr BID JULIETA Administration Metronidazole 500 mg in 100 mls @ 100 mls/hr 06/29/21 09:00 07/07/21 02:00 Flagyl 500 Mg/100 Ml IV Infused Q8H JULIETA Infusion Fat Emulsion-Soy/MCT/[place]/Fish Oil 50 gm in 250 mls @ 21 mls/hr 07/05/21 19:00 07/07/21 06:35 Smoflipid 20% Iv Fat Emulsion IV Infused 1900 JULIETA Infusion Lactulose 20 gm 07/05/21 21:00 07/07/21 08:26 Lactulose 10 Gm /15 Ml Udc PO 20 gm BID JULIETA Administration Levothyroxine Sodium 75 mcg 07/07/21 07:00 07/07/21 06:46 Levothyroxine 75 Mcg Tablet PO 75 mcg QDAC JULIETA Administration Lorazepam 0.5 mg 06/26/21 20:54 07/07/21 00:49 Lorazepam 2 Mg/Ml Vial IVP 0.5 mg Q1H PRN Administration Anxiety Midazolam HCl 2 mg 06/28/21 00:24 07/04/21 00:23 Midazolam 2 Mg/2 Ml Vial IVP 2 mg Q2H PRN Administration Agitation Mineral Oil 1 applic 07/01/21 01:24 07/06/21 20:24 Min Oil/Dimethicon/Coconut Oil 92 Gm Tube TOP 1 ea PRN PRN Administration Skin Care Oxycodone HCl 5 mg 07/05/21 15:57 07/06/21 19:58 Oxycodone 5 Mg Tablet PO 5 mg Q4HR PRN Administration PAIN Pantoprazole Sodium 40 mg 06/27/21 07:00 07/07/21 06:46 Pantoprazole 40 Mg Vial IVP 40 mg QDAC JULIETA Administration Phenol/Menthol 2 sprays 07/05/21 21:24 07/06/21 23:35 Phenol Throat [place] 177 Ml MM 2 sprays Q2HR PRN Administration Throat Pain Quetiapine Fumarate 100 mg 07/05/21 21:00 07/07/21 08:26 Quetiapine 100 Mg Tablet PO 100 mg BID JULIETA Administration Scopolamine HBr 1 patch 07/03/21 11:00 07/06/21 10:57 Scopolamine Patch TOP 1 patch Q3D JULIETA Administration Sodium Chloride 10 ml 06/27/21 01:00 07/07/21 08:33 Sodium Chloride Flush 0.9% 10 Ml Syringe IVP 10 ml [id number] JULIETA Administration Sodium Chloride 10 ml 06/26/21 20:54 07/07/21 06:46 Sodium Chloride Flush 0.9% 10 Ml Syringe IVP 10 ml PRN PRN Administration NEEDED PER PROVIDER ORDERS Sodium Chloride 20 ml 06/26/21 23:03 07/07/21 05:12 Sodium Chloride Flush 0.9% 10 Ml Syringe IVP 20 ml PRN PRN Administration After Blood Draw Sodium Phosphate 250 mg 07/02/21 17:00 07/07/21 08:25 Neutra-Phos 250 Mg Tablet PO 250 mg TIDWM JULIETA Administration - Lab Result Lab results reviewed: Yes Fish Bone Diagrams: 07/07/21 05:10 07/07/21 05:10 - Additional Planning My Orders: My Active Orders 07/07/21 09:00 FUROSEMIDE INJ 20mg VIAL [LASIX INJ 20mg VIAL] 20 mg IVP BID Subjective - Subjective Patient Reports: Other (pt seems to respond to vocal stimuli, followed some commmands, still moaning intermittently with upper respiratory sounds. per community health nurse staff, pt had no BM likely since the surgery) Objective Vital Signs: Vital Signs - 24 hr 07/06/21 07/06/21 07/06/21 09:00 10:00 11:00 Temperature Heart Rate [ 92 91 99 Monitoring electrodes] Respiratory 21 21 22 Rate Blood Pressure 141/60 H 122/61 125/53 L [Left Brachial artery] O2 Saturation 95 97 97 07/06/21 07/06/21 07/06/21 12:00 13:00 14:00 Temperature 36.1 C L 36.1 C L Heart Rate [ 82 85 91 Monitoring electrodes] Respiratory 20 20 24 Rate Blood Pressure 112/51 L 116/41 L 109/58 L [Left Brachial artery] O2 Saturation 96 98 92 07/06/21 07/06/21 07/06/21 15:00 16:00 17:00 Temperature 36.5 C 36.2 C L Heart Rate [ 95 82 82 Monitoring electrodes] Respiratory 21 24 18 Rate Blood Pressure 118/46 L 118/49 L 122/50 L [Left Brachial artery] O2 Saturation 92 94 95 07/06/21 07/06/21 07/06/21 18:00 19:00 20:00 Temperature Heart Rate [ 87 88 89 Monitoring electrodes] Respiratory 21 16 19 Rate Blood Pressure 123/59 L 115/67 131/54 H [Left Brachial artery] O2 Saturation 96 96 97 07/06/21 07/06/21 07/06/21 21:00 22:00 23:00 Temperature 36.5 C Heart Rate [ 92 85 92 Monitoring electrodes] Respiratory 24 18 19 Rate Blood Pressure 124/49 L 135/52 H 130/56 L [Left Brachial artery] O2 Saturation 95 95 94 07/07/21 07/07/21 07/07/21 00:00 01:00 02:00 Temperature 36.5 C 36.6 C Heart Rate [ 106 H 89 83 Monitoring electrodes] Respiratory 19 17 25 H Rate Blood Pressure 115/41 L 115/45 L 115/42 L [Left Brachial artery] O2 Saturation 94 94 96 07/07/21 07/07/21 07/07/21 03:00 04:00 05:06 Temperature 36.6 C 36 C L Heart Rate [ 89 95 84 Monitoring electrodes] Respiratory 16 15 17 Rate Blood Pressure 106/60 90/46 L 90/59 L [Left Brachial artery] O2 Saturation 96 96 96 07/07/21 07/07/21 06:00 07:00 Temperature 36.6 C Heart Rate [ 81 95 Monitoring electrodes] Respiratory 15 17 Rate Blood Pressure 126/61 130/59 L [Left Brachial artery] O2 Saturation 94 94 Oxygen O2 Source Room air I&O (Last 24 Hrs): Intake and Output Totals x24h 07/05/21 07/06/21 07/07/21 23:59 23:59 23:59 Intake Total 3405.166 3489.863 861.657 Output Total 2910 4690 1075 Balance 495.166 -1200.137 -213.343 General: Mild distress HEENT: Atraumatic, PERRLA, EOMI Lymphatic: no adenopathy Neuro: Disoriented, Non Focal Cardiovascular: Regular rate, Normal S1, Normal S2, No murmurs Respiratory: Chest non-tender, No respiratory distress, Breath sounds nml Abdomen: Normal bowel sounds, Soft, No tenderness, No hepatospenomegaly, No masses Extremities: Other (diffuse 2+pitting edema) - Results Results: Laboratory Results WBC 9.5 x10^3/uL (4.8-10.8) 07/07/21 05:10 RBC 2.63 10^6/uL (4.20-5.40) L 07/07/21 05:10 Hgb 7.8 g/dL (12.0-16.0) L 07/07/21 05:10 Hct 25.1 % (37.0-47.0) L 07/07/21 05:10 MCV 95.4 fL (81.0-99.0) 07/07/21 05:10 MCH 29.7 pg (27.0-31.0) 07/07/21 05:10 MCHC 31.1 g/dL (32.0-36.0) L 07/07/21 05:10 RDW 19.9 % (12.0-15.0) H 07/07/21 05:10 Plt Count 451 10^3/uL (130-450) H 07/07/21 05:10 MPV 11.3 fL (7.9-10.8) H 07/07/21 05:10 Neut # (Auto) 5.9 10^3/uL (1.5-6.6) 07/03/21 07:30 Lymph # (Auto) 1.0 10^3/uL (1.5-3.5) L 07/03/21 07:30 [place] # (Auto) 0.6 10^3/uL (0.0-1.0) 07/03/21 07:30 Eos # (Auto) 0.5 10^3/uL (0.0-0.7) 07/03/21 07:30 Baso # (Auto) 0.0 10^3/uL (0.0-0.1) 07/03/21 07:30 Absolute Nucleated RBC 0.00 x10^3/uL 07/03/21 07:30 Total Counted 100 06/27/21 04:20 Band Neuts % (Manual) 26 % (0-10) H 06/27/21 04:20 Abnorm Lymph % (Manual) 0 % 06/27/21 04:20 Nucleated RBC % 0.0 /100WBC 07/03/21 07:30 Neutrophils # (Manual) 11.3 10^3/uL (1.5-6.6) H 06/27/21 04:20 Lymphocytes # (Manual) 1.1 10^3/uL (1.5-3.5) L 06/27/21 04:20 Monocytes # (Manual) 0.1 10^3/uL (0.0-1.0) 06/27/21 04:20 Eosinophils # (Manual) 0.0 10^3/uL (0-0.7) 06/27/21 04:20 Basophils # (Manual) 0.0 10^3/uL (0-0.1) 06/27/21 04:20 Differential Comment MANUAL DIFFERENTIAL 06/27/21 04:20 Manual Slide Review Indicated 07/01/21 05:34 WBC Morphology NORMAL APPEARANCE (NORMAL) 07/01/21 05:34 Platelet Estimate NORMAL (130-450,000) (NORMAL) 07/01/21 05:34 Platelet Morphology NORMAL APPEARANCE (NORMAL) 07/01/21 05:34 RBC Morph Micro Appear 1+ ANISOCYTOSIS (NORMAL) 07/01/21 05:34 Bld Gas Analysis Time 1100 07/05/21 11:00 Sample Site RIGHT RADIAL 07/05/21 11:00 ABG pH 7.38 (7.35-7.45) 07/05/21 11:00 ABG pCO2 31 mmHg (34-45) L 07/05/21 11:00 ABG pO2 77 mmHg (80-100) L 07/05/21 11:00 ABG HCO3 17.7 mmol/L (22.0-26.0) L 07/05/21 11:00 ABG Total CO2 18.7 MMOL/L (21.0-29.0) L 07/05/21 11:00 ABG O2 Saturation 95 % (94-98) 07/05/21 11:00 ABG Base Excess -6.5 mmol/L (-2.0-3.0) L 07/05/21 11:00 [place] Test POSITIVE 07/05/21 11:00 VBG pH 7.344 (7.31-7.41) 07/04/21 04:43 Ionized Calcium 1.16 mmol/L (1.15-1.33) 07/04/21 04:43 Respiration Rate 16 b/min 06/30/21 03:38 O2 Delivery Device VENTILATOR 07/05/21 11:00 Vent Mode CPAP 07/05/21 11:00 FiO2 30.00 07/05/21 11:00 Tidal Volume 400 mL 06/30/21 03:38 PEEP 5 cmH2O 07/05/21 11:00 Pressure Support Vent 12 cmH2O 07/05/21 11:00 IPAP Not Reportable 06/27/21 05:43 Sodium 141 mmol/L (135-145) 07/07/21 05:10 Potassium 4.0 mmol/L (3.5-5.0) 07/07/21 05:10 Chloride 110 mmol/L (101-111) 07/07/21 05:10 Carbon Dioxide 25 mmol/L (21-32) 07/07/21 05:10 Anion Gap 6.0 (6-13) 07/07/21 05:10 BUN 20 mg/dL (6-20) 07/07/21 05:10 Creatinine 0.4 mg/dL (0.4-1.0) 07/07/21 05:10 Estimated GFR (MDRD) 154 (>89) 07/07/21 05:10 Glucose 138 mg/dL (70-100) H 07/07/21 05:10 Lactic Acid 1.6 mmol/L (0.5-2.2) 06/27/21 21:01 Calcium 8.0 mg/dL (8.5-10.3) L 07/07/21 05:10 Ionized Calcium YES 07/04/21 04:43 Phosphorus 2.7 mg/dL (2.5-4.6) 07/07/21 05:10 Magnesium 1.9 mg/dL (1.7-2.8) 07/07/21 05:10 Iron 11 ug/dL (28-170) L 07/04/21 04:43 TIBC 115 ug/dL (250-450) L 07/04/21 04:43 % Saturation 10 % (20-50) L 07/04/21 04:43 Transferrin 82 mg/dL (192-382) L 07/04/21 04:43 Total Bilirubin 0.5 mg/dL (0.2-1.0) 07/07/21 05:10 AST 10 IU/L (10-42) 07/07/21 05:10 ALT < 10 IU/L (10-60) L 07/07/21 05:10 Alkaline Phosphatase 72 IU/L (42-121) 07/07/21 05:10 Troponin I High Sens 99.6 ng/L (2.3-14.8) H* 06/27/21 08:08 C-Reactive Protein 7.1 mg/dL (0-1.0) H 07/04/21 04:43 B-Natriuretic Peptide 919 pg/mL (5-100) H 07/03/21 07:30 Total Protein 4.7 g/dL (6.7-8.2) L 07/07/21 05:10 Albumin 2.0 g/dL (3.2-5.5) L 07/07/21 05:10 Globulin 2.7 g/dL (2.1-4.2) 07/07/21 05:10 Albumin/Globulin Ratio 0.7 (1.0-2.2) L 07/07/21 05:10 Prealbumin 11 mg/dL (18-45) L 07/05/21 05:31 Triglycerides 64 mg/dL (-149) 07/05/21 05:31 Lipase 42 U/L (22-51) 06/26/21 14:26 TSH 3.29 uIU/mL (0.34-5.60) 07/02/21 04:42 Free T4 0.97 ng/dL (0.58-1.64) 07/02/21 04:42 Cortisol AM Sample 6.1 ug/dL 07/05/21 05:31 Urine Color YELLOW 06/26/21 22:51 Urine Clarity CLEAR (CLEAR) 06/26/21 22:51 Urine pH 5.0 PH (5.0-7.5) 06/26/21 22:51 Ur Specific [place] 1.015 (1.002-1.030) 06/26/21 22:51 Urine Protein NEGATIVE mg/dL (NEGATIVE) 06/26/21 22:51 Urine Glucose (UA) NEGATIVE mg/dL (NEGATIVE) 06/26/21 22:51 Urine Ketones NEGATIVE mg/dL (NEGATIVE) 06/26/21 22:51 Urine Occult Blood NEGATIVE (NEGATIVE) 06/26/21 22:51 Urine Nitrite NEGATIVE (NEGATIVE) 06/26/21 22:51 Urine Bilirubin NEGATIVE (NEGATIVE) 06/26/21 22:51 Urine Urobilinogen 0.2 (NORMAL) E.U./dL (NORMAL) 06/26/21 22:51 Ur Leukocyte Esterase TRACE (NEGATIVE) H 06/26/21 22:51 Urine RBC 0-5 /HPF (0-5) 06/26/21 22:51 Urine WBC 4-5 /HPF (0-5) 06/26/21 22:51 Ur Squamous Epith Cells FEW Squamous (<= Few) 06/26/21 22:51 Urine Bacteria Few /HPF (None Seen) 06/26/21 22:51 Urine Casts 3-5 Hyaline Casts /LPF 06/26/21 22:51 Ur Microscopic Review INDICATED 06/26/21 22:51 Urine Culture Comments INDICATED 06/26/21 22:51 Nasal Adenovirus (PCR) NOT DETECTED 06/27/21 01:23 Nasal B. parapertussis DNA (PCR) NOT DETECTED 06/27/21 01:23 Nasal Coronavir 229E PCR NOT DETECTED 06/27/21 01:23 Nasal Coronavir HKU1 PCR NOT DETECTED 06/27/21 01:23 Nasal Coronavir NL63 PCR NOT DETECTED 06/27/21 01:23 Nasal Coronavir OC43 PCR NOT DETECTED 06/27/21 01:23 Nasal Enterovir/Rhinovir PCR NOT DETECTED 06/27/21 01:23 Nasal Influenza B PCR NOT DETECTED 06/27/21 01:23 Nasal Influenza A PCR NOT DETECTED 06/27/21 01:23 Nasal Parainfluen 1 PCR NOT DETECTED 06/27/21 01:23 Nasal Parainfluen 2 PCR NOT DETECTED 06/27/21 01:23 Nasal Parainfluen 3 PCR NOT DETECTED 06/27/21 01:23 Nasal Parainfluen 4 PCR NOT DETECTED 06/27/21 01:23 Nasal RSV (PCR) NOT DETECTED 06/27/21 01:23 Nasal Screen MRSA (PCR) NEGATIVE (NEGATIVE) 06/26/21 21:55 Nasal B.pertussis DNA PCR NOT DETECTED 06/27/21 01:23 Nasal C.pneumoniae (PCR) NOT DETECTED 06/27/21 01:23 Mk Human Metapneumo PCR NOT DETECTED 06/27/21 01:23 Nasal M.pneumoniae (PCR) NOT DETECTED 06/27/21 01:23 Nasal SARS-CoV-2 (PCR) DETECTED A 06/27/21 01:23 - Procedures Procedures: Procedures RESPIRATORY VENTILATION, LESS THAN 24 CONSECUTIVE HOURS (01/11/20) Sepsis Event Note (H) - Evaluation Current Stage of Sepsis: Septic shock Possible source of Sepsis: positive: GI tract/intra-abdominal - Sepsis Criteria Sepsis Criteria: WBC count greater than 10% bands, SBP drop more than 40mHg, MAP less than 65 mmHg, SBP less than 90 mmHg, Renal: urine output less than 0.5ml/kg/hr for 2 hours or creatinine gr, Metabolic: lactate > 2 mmol/L
--- NOTE | 2021-07-07 09:27 | PROVIDER PROGRESS NOTE ---
Subjective - General Admit Date: 06/26/21 Procedure Date: 06/26/21 Post Op Days: 11 Procedure Performed: Exploratory laparotomy with repair of posterior duodenal ulcer - Review of Systems Wound/Incisions: positive: Healing well. negative: Drainage Drain Type: 19 [place] Drain Output Description: Serosanguineous Objective - Patient Data Vital Signs: Vital Signs x48h Temp Pulse Resp BP Pulse Ox 07/07/21 09:00 98 25 H 134/66 H 94 07/07/21 08:00 36.1 C L 91 21 139/64 H 94 07/07/21 07:00 36.6 C 95 17 130/59 L 94 07/07/21 06:00 81 15 126/61 94 07/07/21 05:06 36 C L 84 17 90/59 L 96 07/07/21 04:00 95 15 90/46 L 96 07/07/21 03:00 36.6 C 89 16 106/60 96 07/07/21 02:00 83 25 H 115/42 L 96 Weight: Weight 07/05/21 07/06/21 07/07/21 23:59 23:59 23:59 Weight (kg) 89 kg 90 kg Intake & Output: Intake and Output Totals x24h 07/05/21 07/06/21 07/07/21 23:59 23:59 23:59 Intake Total 3405.166 3489.863 870.282 Output Total 2910 4690 1730 Balance 495.166 -1200.137 -859.718 - Lab Results Lab Results: 07/07/21 05:10 07/07/21 05:10 Other Lab Results: Lab Results x24hrs 07/07/21 07/07/21 Range/Units 05:10 05:10 WBC 9.5 (4.8-10.8) x10^3/uL RBC 2.63 L (4.20-5.40) 10^6/uL Hgb 7.8 L (12.0-16.0) g/dL Hct 25.1 L (37.0-47.0) % MCV 95.4 (81.0-99.0) fL MCH 29.7 (27.0-31.0) pg MCHC 31.1 L (32.0-36.0) g/dL RDW 19.9 H (12.0-15.0) % Plt Count 451 H (130-450) 10^3/uL MPV 11.3 H (7.9-10.8) fL Sodium 141 (135-145) mmol/L Potassium 4.0 (3.5-5.0) mmol/L Chloride 110 (101-111) mmol/L Carbon Dioxide 25 (21-32) mmol/L Anion Gap 6.0 (6-13) BUN 20 (6-20) mg/dL Creatinine 0.4 (0.4-1.0) mg/dL Estimated GFR (MDRD) 154 (>89) Glucose 138 H (70-100) mg/dL Calcium 8.0 L (8.5-10.3) mg/dL Phosphorus 2.7 (2.5-4.6) mg/dL Magnesium 1.9 (1.7-2.8) mg/dL Total Bilirubin 0.5 (0.2-1.0) mg/dL AST 10 (10-42) IU/L ALT < 10 L (10-60) IU/L Alkaline Phosphatase 72 (42-121) IU/L Total Protein 4.7 L (6.7-8.2) g/dL Albumin 2.0 L (3.2-5.5) g/dL Globulin 2.7 (2.1-4.2) g/dL Albumin/Globulin Ratio 0.7 L (1.0-2.2) - Current Medications Current Medications: Current Medications Generic Name Dose Route Start Last Admin Trade Name Freq PRN Reason Stop Dose Admin Calcium Carbonate/Glycine 500 mg 07/02/21 21:00 07/07/21 08:24 Calcium Carbonate Chew 500 Mg Tablet PO 500 mg BID JULIETA Administration Chlorhexidine Gluconate 15 ml 06/27/21 21:00 07/07/21 08:32 Chlorhexidine Gluconate 15 Ml Udc PO 15 ml BID JULIETA Administration Enoxaparin Sodium 40 mg 06/28/21 09:00 07/07/21 08:31 Enoxaparin 40 Mg/0.4 Ml Syringe SUBQ 40 mg DAILY JULIETA Administration Glycopyrrolate 0.2 mg 06/28/21 21:17 07/06/21 23:35 Glycopyrrolate 1 Mg/5 Ml Vial SUBQ 0.2 mg Q6H PRN Administration Excessive Secretions Hydromorphone HCl 0.5 mg 07/06/21 22:57 07/07/21 08:31 Hydromorphone 0.5 Mg/0.5 Ml Syringe IVP 0.5 mg Q3H PRN Administration PAIN Fluconazole 100 mls @ 100 mls/hr 06/27/21 09:00 07/06/21 10:55 Diflucan 200 Mg/100 Ml IV Infused DAILY JULIETA Infusion Norepinephrine Bitartrate 8 mg 250 mls @ 15 mls/hr 06/26/21 23:00 07/07/21 09:09 / Dextrose IV 3 mcg/min .[id number] JULIETA 5.625 mls/hr Titration Protocol 8 MCG/MIN Sodium Chloride 500 mls @ 20 mls/hr 06/26/21 23:03 06/30/21 19:27 Normal Saline 0.9% IV Infused Q24H PRN Infusion TKO RATE Multivitamins 10 ml/ TRACE 2,011 mls @ 75 mls/hr 06/27/21 19:00 07/07/21 05:00 ELEMENTS 1 ml/ Amino Ac/ IV 75 mls/hr Electrol/Dextrose/Calcium Q24H JULIETA Infusion Protocol Cefepime HCl 2 gm/ Sodium 100 mls @ 200 mls/hr 06/27/21 18:00 07/07/21 08:29 Chloride IV 200 mls/hr BID JULIETA Administration Metronidazole 500 mg in 100 mls @ 100 mls/hr 06/29/21 09:00 07/07/21 02:00 Flagyl 500 Mg/100 Ml IV Infused Q8H JULIETA Infusion Fat Emulsion-Soy/MCT/[place]/Fish Oil 50 gm in 250 mls @ 21 mls/hr 07/05/21 19:00 07/07/21 06:35 Smoflipid 20% Iv Fat Emulsion IV Infused 1900 JULIETA Infusion Lactulose 20 gm 07/05/21 21:00 07/07/21 08:26 Lactulose 10 Gm /15 Ml Udc PO 20 gm BID JULIETA Administration Levothyroxine Sodium 75 mcg 07/07/21 07:00 07/07/21 06:46 Levothyroxine 75 Mcg Tablet PO 75 mcg QDAC JULIETA Administration Lorazepam 0.5 mg 06/26/21 20:54 07/07/21 00:49 Lorazepam 2 Mg/Ml Vial IVP 0.5 mg Q1H PRN Administration Anxiety Midazolam HCl 2 mg 06/28/21 00:24 07/04/21 00:23 Midazolam 2 Mg/2 Ml Vial IVP 2 mg Q2H PRN Administration Agitation Mineral Oil 1 applic 07/01/21 01:24 07/06/21 20:24 Min Oil/Dimethicon/Coconut Oil 92 Gm Tube TOP 1 ea PRN PRN Administration Skin Care Oxycodone HCl 5 mg 07/05/21 15:57 07/06/21 19:58 Oxycodone 5 Mg Tablet PO 5 mg Q4HR PRN Administration PAIN Pantoprazole Sodium 40 mg 06/27/21 07:00 07/07/21 06:46 Pantoprazole 40 Mg Vial IVP 40 mg QDAC JULIETA Administration Phenol/Menthol 2 sprays 07/05/21 21:24 07/06/21 23:35 Phenol Throat [place] 177 Ml MM 2 sprays Q2HR PRN Administration Throat Pain Quetiapine Fumarate 100 mg 07/05/21 21:00 07/07/21 08:26 Quetiapine 100 Mg Tablet PO 100 mg BID JULIETA Administration Scopolamine HBr 1 patch 07/03/21 11:00 07/06/21 10:57 Scopolamine Patch TOP 1 patch Q3D JULIETA Administration Sodium Chloride 10 ml 06/27/21 01:00 07/07/21 08:33 Sodium Chloride Flush 0.9% 10 Ml Syringe IVP 10 ml 0100,0900,1700 JULIETA Administration Sodium Chloride 10 ml 06/26/21 20:54 07/07/21 06:46 Sodium Chloride Flush 0.9% 10 Ml Syringe IVP 10 ml PRN PRN Administration NEEDED PER PROVIDER ORDERS Sodium Chloride 20 ml 06/26/21 23:03 07/07/21 05:12 Sodium Chloride Flush 0.9% 10 Ml Syringe IVP 20 ml PRN PRN Administration After Blood Draw Sodium Phosphate 250 mg 07/02/21 17:00 07/07/21 08:25 Neutra-Phos 250 Mg Tablet PO 250 mg TIDWM JULIETA Administration - Physical Exam Wound/Incisions: positive: Healing well General Appearance: positive: Other (More alert today, nods head in response to questions) Abdomen: positive: Non-tender Impression/Plan - Problem List Problem List: 10 days s/p Gray patch repair with Heineke-Mikulicz pyloroplasty for posterior perforated duodenal ulcer. More alert today. Better urine output with increased Lasix. NG output not increased. Will discuss with Dr Dobson whether a contrast study per NGT will be needed prior to pulling NG tube. Currently, NG is being used for some med administration, so will leave in place since patient not ready to start taking po. Continue TPN, consider PICC line as TPN will likely be needed for a few days more.
[2021-07-07] MEDS: FLUCONAZOLE 200 MG/100 ML 100 ML IV SCH (09:48)
[2021-07-07] MEDS: GLYCOPYRROLATE 1 MG/5 ML VIAL SUBQ PRN (10:52)
[2021-07-07] MEDS: PHENOL THROAT SPRAY 177 ML MM PRN (11:03)
[2021-07-07] MEDS: TPN (CLINIMIX E 5/15) 2,000 ML with MULTIVITAMIN 10 ML, TRACE ELEMENTS 1 ML IV SCH ×3 (18:25)
[2021-07-07] MEDS: FAT EMUL/SOY/MCT/OLIV/FISH OIL 50 GM/250 ML BAG IV SCH (18:26)
[2021-07-07] MEDS: oxyCODONE 5 MG TABLET PO PRN (20:12)
--- NOTE | 2021-07-07 21:24 | XRAY Report ---
PROCEDURE: Chest for Line Placement INDICATIONS: Nasogastric tube TECHNIQUE: One view of the chest was acquired. COMPARISON: 07/06/2021 FINDINGS: Surgical changes and devices: NGT, tip of which is in the gastric lumen. Left-sided pacer. Right inte rnal jugular vein central venous catheter. Lungs and pleura: No pleural effusions or pneumothorax. Decreased, moderate bilateral pulmonary airs pace opacity. Mediastinum: Mediastinal contours appear normal. Heart size is normal. Bones and chest wall: No suspicious bony lesions. Overlying soft tissues appear unremarkable. IMPRESSION: 1. Tubes and catheters as above. 2. Decreased bilateral pneumonia/edema. Reviewed by: Roberto Zavaleta MD on 07/07/2021 9:23 PM PDT Approved by: Roberto Zavaleta MD on 07/07/2021 9:23 PM PDT Station ID: [id number]
[2021-07-08] MEDS: HYDROmorphone 0.5 MG/0.5 ML SYRINGE IVP PRN ×3 (00:09→14:13)
[2021-07-08] MEDS: SODIUM CHLORIDE FLUSH 0.9% 10 ML SYRINGE IVP SCH ×3 (00:10→17:20)
[2021-07-08] MEDS: metroNIDAZOLE 500 MG/100 ML 500 MG/100 ML BAG IV SCH ×3 (00:32→17:17)
[2021-07-08] MEDS: oxyCODONE 5 MG TABLET PO PRN (01:52)
[2021-07-08] MEDS: LEVOTHYROXINE 75 MCG TABLET PO SCH (06:24)
[2021-07-08] MEDS: PANTOPRAZOLE 40 MG VIAL IVP SCH (06:24)
[2021-07-08 08:04] LABS: BASOPHILS # (AUTO) 0.1 10^3/uL (0.0-0.1); BASOPHILS % (AUTO) 0.5 %; EOSINOPHILS # (AUTO) 0.5 10^3/uL (0.0-0.7); EOSINOPHILS % (AUTO) 4.4 %; HCT - HEMATOCRIT 27.8 % (37.0-47.0); HGB - HEMOGLOBIN 8.5 g/dL (12.0-16.0); LYMPHOCYTES # (AUTO) 1.1 10^3/uL (1.5-3.5); LYMPHOCYTES % (AUTO) 8.8 %; MEAN CORPUSCULAR HEMOGLOBIN 29.1 pg (27.0-31.0); MEAN CORPUSCULAR HGB CONC 30.6 g/dL (32.0-36.0); MEAN CORPUSCULAR VOLUME 95.2 fL (81.0-99.0); MEAN PLATELET VOLUME 11.1 fL (7.9-10.8); MONOCYTES # (AUTO) 0.5 10^3/uL (0.0-1.0); MONOCYTES % (AUTO) 4.1 %; NEUTROPHILS # (AUTO) 9.8 10^3/uL (1.5-6.6); NEUTROPHILS % (AUTO) 79.7 %; NRBC ABSOLUTE COUNT (AUTO) 0.05 x10^3/uL; NUCLEATED RED BLOOD CELLS AUTO 0.4 /100WBC; PLT - PLATELET COUNT 538 10^3/uL (130-450); RED BLOOD COUNT 2.92 10^6/uL (4.20-5.40); RED CELL DISTRIBUTION WIDTH 20.4 % (12.0-15.0); WHITE BLOOD COUNT 12.3 x10^3/uL (4.8-10.8)
[2021-07-08 08:05] LABS: PLATELET ESTIMATE, MANUAL INCREASED (>450,000) (NORMAL); PLATELET MORPHOLOGY NORMAL APPEARANCE (NORMAL); RBC MORPHOLOGY (MULTIPLE) 1+ ANISOCYTOSIS (NORMAL); SLIDE REVIEW? Indicated
[2021-07-08 08:06] LABS: WBC MORPHOLOGY (MULTIPLE) NORMAL APPEARANCE (NORMAL)
--- NOTE | 2021-07-08 08:14 | PROVIDER PROGRESS NOTE ---
Subjective - Prog Note Date Prog Note Date: 07/08/21 Prog Note Time: 08:14 - Subjective Subjective: Awake. Speech is garbled. Extubated and off pressors as of yesterday. No flatus. No bowel movement since June 23. On TPN. Current Medications - Current Medications Current Medications: Active Medications Generic Name Dose Route Start Last Admin Trade Name Freq PRN Reason Stop Dose Admin Acetaminophen 500 mg 07/05/21 15:54 Acetaminophen 500 Mg Tablet PO Q4HR PRN Pain or Fever > 38C (100.4F) Albuterol 2.5 mg 07/04/21 15:05 Albuterol Neb 2.5 Mg/3 Ml INH RTQ4H PRN Wheezing Benzocaine/Butamben/Tetracaine HCl 1 sprays 06/26/21 20:54 Benzocaine/Tetracaine/Butamben 20 Gm MM DAILY PRN Throat Pain Calcium Carbonate/Glycine 500 mg 07/02/21 21:00 07/07/21 20:12 Calcium Carbonate Chew 500 Mg Tablet PO 500 mg BID JULIETA Administration Chlorhexidine Gluconate 15 ml 06/27/21 21:00 07/07/21 20:12 Chlorhexidine Gluconate 15 Ml Udc PO 15 ml BID JULIETA Administration Enoxaparin Sodium 40 mg 06/28/21 09:00 07/07/21 08:31 Enoxaparin 40 Mg/0.4 Ml Syringe SUBQ 40 mg DAILY JULIETA Administration Furosemide 20 mg 07/07/21 09:00 07/07/21 20:13 Furosemide 20 Mg/2 Ml Vial IVP 20 mg BID JULIETA Administration Glycopyrrolate 0.2 mg 06/28/21 21:17 07/07/21 10:52 Glycopyrrolate 1 Mg/5 Ml Vial SUBQ 0.2 mg Q6H PRN Administration Excessive Secretions Hydromorphone HCl 0.5 mg 07/06/21 22:57 07/08/21 00:09 Hydromorphone 0.5 Mg/0.5 Ml Syringe IVP 0.5 mg Q3H PRN Administration PAIN Fluconazole 100 mls @ 100 mls/hr 06/27/21 09:00 07/07/21 10:48 Diflucan 200 Mg/100 Ml IV Infused DAILY JULIETA Infusion Norepinephrine Bitartrate 8 mg 250 mls @ 15 mls/hr 06/26/21 23:00 07/08/21 01:47 / Dextrose IV Not Given .[id number] JULIETA Protocol 8 MCG/MIN Sodium Chloride 500 mls @ 20 mls/hr 06/26/21 23:03 06/30/21 19:27 Normal Saline 0.9% IV Infused Q24H PRN Infusion TKO RATE Multivitamins 10 ml/ TRACE 2,011 mls @ 75 mls/hr 06/27/21 19:00 07/07/21 18:25 ELEMENTS 1 ml/ Amino Ac/ IV 75 mls/hr Electrol/Dextrose/Calcium Q24H JULIETA Administration Protocol Cefepime HCl 2 gm/ Sodium 100 mls @ 200 mls/hr 06/27/21 18:00 07/07/21 20:52 Chloride IV Infused BID JULIETA Infusion Metronidazole 500 mg in 100 mls @ 100 mls/hr 06/29/21 09:00 07/08/21 01:47 Flagyl 500 Mg/100 Ml IV Infused Q8H JULIETA Infusion Fat Emulsion-Soy/MCT/[place]/Fish Oil 50 gm in 250 mls @ 21 mls/hr 07/05/21 19:00 07/08/21 06:25 Smoflipid 20% Iv Fat Emulsion IV Infused 1900 JULIETA Infusion Lactulose 20 gm 07/05/21 21:00 07/07/21 20:13 Lactulose 10 Gm /15 Ml Udc PO 20 gm BID JULIETA Administration Levothyroxine Sodium 75 mcg 07/07/21 07:00 07/08/21 06:24 Levothyroxine 75 Mcg Tablet PO 75 mcg QDAC JULIETA Administration Lorazepam 0.5 mg 06/26/21 20:54 07/07/21 00:49 Lorazepam 2 Mg/Ml Vial IVP 0.5 mg Q1H PRN Administration Anxiety Midazolam HCl 2 mg 06/28/21 00:24 07/04/21 00:23 Midazolam 2 Mg/2 Ml Vial IVP 2 mg Q2H PRN Administration Agitation Mineral Oil 1 applic 07/01/21 01:24 07/06/21 20:24 Min Oil/Dimethicon/Coconut Oil 92 Gm Tube TOP 1 ea PRN PRN Administration Skin Care Ondansetron HCl 4 mg 06/26/21 20:54 Ondansetron 4 Mg/2 Ml Vial IVP Q6H PRN Nausea / Vomiting Oxycodone HCl 5 mg 07/05/21 15:57 07/08/21 01:52 Oxycodone 5 Mg Tablet PO 5 mg Q4HR PRN Administration PAIN Pantoprazole Sodium 40 mg 06/27/21 07:00 07/08/21 06:24 Pantoprazole 40 Mg Vial IVP 40 mg QDAC JULIETA Administration Phenol/Menthol 2 sprays 07/05/21 21:24 07/07/21 11:03 Phenol Throat Munith 177 Ml MM 2 sprays Q2HR PRN Administration Throat Pain Quetiapine Fumarate 100 mg 07/05/21 21:00 07/07/21 20:12 Quetiapine 100 Mg Tablet PO 100 mg BID JULIETA Administration Scopolamine HBr 1 patch 07/03/21 11:00 07/06/21 10:57 Scopolamine Patch TOP 1 patch Q3D JULIETA Administration Sodium Chloride 10 ml 06/27/21 01:00 07/08/21 00:10 Sodium Chloride Flush 0.9% 10 Ml Syringe IVP 10 ml 0100,0900,1700 JULIETA Administration Sodium Chloride 10 ml 06/26/21 20:54 07/07/21 15:00 Sodium Chloride Flush 0.9% 10 Ml Syringe IVP 10 ml PRN PRN Administration NEEDED PER PROVIDER ORDERS Sodium Chloride 20 ml 06/26/21 23:03 07/07/21 05:12 Sodium Chloride Flush 0.9% 10 Ml Syringe IVP 20 ml PRN PRN Administration After Blood Draw Sodium Phosphate 250 mg 07/02/21 17:00 07/07/21 16:58 Neutra-Phos 250 Mg Tablet PO 250 mg TIDWM JULIETA Administration Levothyroxine [Synthroid] 75 mcg PO QDAC 07/22/19 Simvastatin [Zocor] 20 mg PO QPM 07/22/19 Torsemide 40 mg PO DAILY 07/22/19 Potassium Chloride 10 meq PO DAILY 01/11/20 EPINEPHrine [Epipen Jr] 0.3 mg IM ONCE PRN 04/12/20 traZODone [Desyrel] 200 mg PO QPM 04/12/20 Meloxicam [Mobic] 7.5 mg PO BID 10/21/20 QUEtiapine [SEROquel] 100 mg PO BID 10/21/20 Objective - Vital Signs/Intake & Output Reviewed Vital Signs: Yes Vital Signs: Vital Signs x48h Temp Pulse Resp BP Pulse Ox 07/08/21 08:00 36.6 C 85 19 129/54 L 97 07/08/21 07:00 83 14 121/61 94 07/08/21 06:00 79 18 120/56 L 94 07/08/21 05:00 81 21 125/50 L 94 07/08/21 04:00 36.6 C 87 21 122/57 L 96 07/08/21 03:00 86 22 131/50 H 97 07/08/21 02:00 92 20 135/59 H 98 07/08/21 01:00 88 19 129/73 98 Intake & Output: Intake & Output 07/05/21 07/06/21 07/07/21 07/08/21 23:59 23:59 23:59 23:59 Intake Total 3405.166 3489.863 2640.217 400 Output Total 2910 4690 4875 1228 Balance 495.166 -1200.137 -2234.783 -828 - Objective General Appearance: positive: Mild distress (copious secretions) Eyes Bilateral: positive: PERRL. negative: EOMI (right eye laterally deviated) ENT: positive: No signs of dehydration Neck: positive: No JVD. negative: Stiff neck Respiratory: positive: No respiratory distress (but weak cough), Rhonchi. negative: Wheezes, Rales Cardiovascular: positive: Regular rate & rhythm. negative: Gallop/S4, Friction rub Abdomen: positive: No organomegaly, Abnml bowel sounds (not really heard), Other (sllightly distended.) Skin: positive: Warm, Dry Extremities: positive: Full ROM, Pedal edema (Legs being wrapped with Quang wrap to reduce edema. Also SCDs at times.) Neurologic/Psychiatric: positive: Other (occ moans, eyes will look at you if you call her name, nonverbal,) - Lab Results Fish Bones: 07/15/21 04:49 07/14/21 04:38 Other Labs: Lab Results x24hrs 07/08/21 07/08/21 07/08/21 Range/Units 07:45 06:11 00:04 WBC 12.3 H (4.8-10.8) x10^3/uL RBC 2.92 L (4.20-5.40) 10^6/uL Hgb 8.5 L (12.0-16.0) g/dL Hct 27.8 L (37.0-47.0) % MCV 95.2 (81.0-99.0) fL MCH 29.1 (27.0-31.0) pg MCHC 30.6 L (32.0-36.0) g/dL RDW 20.4 H (12.0-15.0) % Plt Count 538 H (130-450) 10^3/uL MPV 11.1 H (7.9-10.8) fL Neut # (Auto) 9.8 H (1.5-6.6) 10^3/uL Lymph # (Auto) 1.1 L (1.5-3.5) 10^3/uL [place] # (Auto) 0.5 (0.0-1.0) 10^3/uL Eos # (Auto) 0.5 (0.0-0.7) 10^3/uL Baso # (Auto) 0.1 (0.0-0.1) 10^3/uL Absolute Nucleated RBC 0.05 x10^3/uL Nucleated RBC % 0.4 /100WBC Manual Slide Review Indicated WBC Morphology NORMAL APPEARANCE (NORMAL) Platelet Estimate INCREASED (>450,000) (NORMAL) Platelet Morphology NORMAL APPEARANCE (NORMAL) RBC Morph Micro Appear 1+ ANISOCYTOSIS (NORMAL) POC Whole Bld Glucose 150 H 147 H (70 - 100) mg/dL 07/07/21 07/07/21 07/07/21 Range/Units 17:02 11:50 05:22 WBC (4.8-10.8) x10^3/uL RBC (4.20-5.40) 10^6/uL Hgb (12.0-16.0) g/dL Hct (37.0-47.0) % MCV (81.0-99.0) fL MCH (27.0-31.0) pg MCHC (32.0-36.0) g/dL RDW (12.0-15.0) % Plt Count (130-450) 10^3/uL MPV (7.9-10.8) fL Neut # (Auto) (1.5-6.6) 10^3/uL Lymph # (Auto) (1.5-3.5) 10^3/uL [place] # (Auto) (0.0-1.0) 10^3/uL Eos # (Auto) (0.0-0.7) 10^3/uL Baso # (Auto) (0.0-0.1) 10^3/uL Absolute Nucleated RBC x10^3/uL Nucleated RBC % /100WBC Manual Slide Review WBC Morphology (NORMAL) Platelet Estimate (NORMAL) Platelet Morphology (NORMAL) RBC Morph Micro Appear (NORMAL) POC Whole Bld Glucose 148 H 164 H 140 H (70 - 100) mg/dL 07/06/21 07/06/21 07/06/21 Range/Units 23:25 18:06 12:18 WBC (4.8-10.8) x10^3/uL RBC (4.20-5.40) 10^6/uL Hgb (12.0-16.0) g/dL Hct (37.0-47.0) % MCV (81.0-99.0) fL MCH (27.0-31.0) pg MCHC (32.0-36.0) g/dL RDW (12.0-15.0) % Plt Count (130-450) 10^3/uL MPV (7.9-10.8) fL Neut # (Auto) (1.5-6.6) 10^3/uL Lymph # (Auto) (1.5-3.5) 10^3/uL [place] # (Auto) (0.0-1.0) 10^3/uL Eos # (Auto) (0.0-0.7) 10^3/uL Baso # (Auto) (0.0-0.1) 10^3/uL Absolute Nucleated RBC x10^3/uL Nucleated RBC % /100WBC Manual Slide Review WBC Morphology (NORMAL) Platelet Estimate (NORMAL) Platelet Morphology (NORMAL) RBC Morph Micro Appear (NORMAL) POC Whole Bld Glucose 152 H 182 H 163 H (70 - 100) mg/dL 07/06/21 07/05/21 07/05/21 Range/Units 05:14 23:53 17:36 WBC (4.8-10.8) x10^3/uL RBC (4.20-5.40) 10^6/uL Hgb (12.0-16.0) g/dL Hct (37.0-47.0) % MCV (81.0-99.0) fL MCH (27.0-31.0) pg MCHC (32.0-36.0) g/dL RDW (12.0-15.0) % Plt Count (130-450) 10^3/uL MPV (7.9-10.8) fL Neut # (Auto) (1.5-6.6) 10^3/uL Lymph # (Auto) (1.5-3.5) 10^3/uL [place] # (Auto) (0.0-1.0) 10^3/uL Eos # (Auto) (0.0-0.7) 10^3/uL Baso # (Auto) (0.0-0.1) 10^3/uL Absolute Nucleated RBC x10^3/uL Nucleated RBC % /100WBC Manual Slide Review WBC Morphology (NORMAL) Platelet Estimate (NORMAL) Platelet Morphology (NORMAL) RBC Morph Micro Appear (NORMAL) POC Whole Bld Glucose 132 H 146 H 135 H (70 - 100) mg/dL 07/05/21 07/05/21 07/04/21 Range/Units 12:05 05:38 23:39 WBC (4.8-10.8) x10^3/uL RBC (4.20-5.40) 10^6/uL Hgb (12.0-16.0) g/dL Hct (37.0-47.0) % MCV (81.0-99.0) fL MCH (27.0-31.0) pg MCHC (32.0-36.0) g/dL RDW (12.0-15.0) % Plt Count (130-450) 10^3/uL MPV (7.9-10.8) fL Neut # (Auto) (1.5-6.6) 10^3/uL Lymph # (Auto) (1.5-3.5) 10^3/uL [place] # (Auto) (0.0-1.0) 10^3/uL Eos # (Auto) (0.0-0.7) 10^3/uL Baso # (Auto) (0.0-0.1) 10^3/uL Absolute Nucleated RBC x10^3/uL Nucleated RBC % /100WBC Manual Slide Review WBC Morphology (NORMAL) Platelet Estimate (NORMAL) Platelet Morphology (NORMAL) RBC Morph Micro Appear (NORMAL) POC Whole Bld Glucose 137 H 138 H 141 H (70 - 100) mg/dL 07/04/21 07/04/21 07/04/21 Range/Units 18:30 11:52 00:18 WBC (4.8-10.8) x10^3/uL RBC (4.20-5.40) 10^6/uL Hgb (12.0-16.0) g/dL Hct (37.0-47.0) % MCV (81.0-99.0) fL MCH (27.0-31.0) pg MCHC (32.0-36.0) g/dL RDW (12.0-15.0) % Plt Count (130-450) 10^3/uL MPV (7.9-10.8) fL Neut # (Auto) (1.5-6.6) 10^3/uL Lymph # (Auto) (1.5-3.5) 10^3/uL [place] # (Auto) (0.0-1.0) 10^3/uL Eos # (Auto) (0.0-0.7) 10^3/uL Baso # (Auto) (0.0-0.1) 10^3/uL Absolute Nucleated RBC x10^3/uL Nucleated RBC % /100WBC Manual Slide Review WBC Morphology (NORMAL) Platelet Estimate (NORMAL) Platelet Morphology (NORMAL) RBC Morph Micro Appear (NORMAL) POC Whole Bld Glucose 123 H 134 H 162 H (70 - 100) mg/dL 07/03/21 07/03/21 07/03/21 Range/Units 17:57 12:21 06:06 WBC (4.8-10.8) x10^3/uL RBC (4.20-5.40) 10^6/uL Hgb (12.0-16.0) g/dL Hct (37.0-47.0) % MCV (81.0-99.0) fL MCH (27.0-31.0) pg MCHC (32.0-36.0) g/dL RDW (12.0-15.0) % Plt Count (130-450) 10^3/uL MPV (7.9-10.8) fL Neut # (Auto) (1.5-6.6) 10^3/uL Lymph # (Auto) (1.5-3.5) 10^3/uL [place] # (Auto) (0.0-1.0) 10^3/uL Eos # (Auto) (0.0-0.7) 10^3/uL Baso # (Auto) (0.0-0.1) 10^3/uL Absolute Nucleated RBC x10^3/uL Nucleated RBC % /100WBC Manual Slide Review WBC Morphology (NORMAL) Platelet Estimate (NORMAL) Platelet Morphology (NORMAL) RBC Morph Micro Appear (NORMAL) POC Whole Bld Glucose 87 143 H 143 H (70 - 100) mg/dL 07/03/21 07/02/21 07/02/21 Range/Units 00:24 17:49 11:27 WBC (4.8-10.8) x10^3/uL RBC (4.20-5.40) 10^6/uL Hgb (12.0-16.0) g/dL Hct (37.0-47.0) % MCV (81.0-99.0) fL MCH (27.0-31.0) pg MCHC (32.0-36.0) g/dL RDW (12.0-15.0) % Plt Count (130-450) 10^3/uL MPV (7.9-10.8) fL Neut # (Auto) (1.5-6.6) 10^3/uL Lymph # (Auto) (1.5-3.5) 10^3/uL [place] # (Auto) (0.0-1.0) 10^3/uL Eos # (Auto) (0.0-0.7) 10^3/uL Baso # (Auto) (0.0-0.1) 10^3/uL Absolute Nucleated RBC x10^3/uL Nucleated RBC % /100WBC Manual Slide Review WBC Morphology (NORMAL) Platelet Estimate (NORMAL) Platelet Morphology (NORMAL) RBC Morph Micro Appear (NORMAL) POC Whole Bld Glucose 146 H 114 H 138 H (70 - 100) mg/dL 10/02/1507/01/21 07/01/21 Range/Units 05:44 23:55 17:55 WBC (4.8-10.8) x10^3/uL RBC (4.20-5.40) 10^6/uL Hgb (12.0-16.0) g/dL Hct (37.0-47.0) % MCV (81.0-99.0) fL MCH (27.0-31.0) pg MCHC (32.0-36.0) g/dL RDW (12.0-15.0) % Plt Count (130-450) 10^3/uL MPV (7.9-10.8) fL Neut # (Auto) (1.5-6.6) 10^3/uL Lymph # (Auto) (1.5-3.5) 10^3/uL [place] # (Auto) (0.0-1.0) 10^3/uL Eos # (Auto) (0.0-0.7) 10^3/uL Baso # (Auto) (0.0-0.1) 10^3/uL Absolute Nucleated RBC x10^3/uL Nucleated RBC % /100WBC Manual Slide Review WBC Morphology (NORMAL) Platelet Estimate (NORMAL) Platelet Morphology (NORMAL) RBC Morph Micro Appear (NORMAL) POC Whole Bld Glucose 137 H 134 H 131 H (70 - 100) mg/dL 07/01/21 07/01/21 06/30/21 Range/Units 11:12 00:01 17:43 WBC (4.8-10.8) x10^3/uL RBC (4.20-5.40) 10^6/uL Hgb (12.0-16.0) g/dL Hct (37.0-47.0) % MCV (81.0-99.0) fL MCH (27.0-31.0) pg MCHC (32.0-36.0) g/dL RDW (12.0-15.0) % Plt Count (130-450) 10^3/uL MPV (7.9-10.8) fL Neut # (Auto) (1.5-6.6) 10^3/uL Lymph # (Auto) (1.5-3.5) 10^3/uL [place] # (Auto) (0.0-1.0) 10^3/uL Eos # (Auto) (0.0-0.7) 10^3/uL Baso # (Auto) (0.0-0.1) 10^3/uL Absolute Nucleated RBC x10^3/uL Nucleated RBC % /100WBC Manual Slide Review WBC Morphology (NORMAL) Platelet Estimate (NORMAL) Platelet Morphology (NORMAL) RBC Morph Micro Appear (NORMAL) POC Whole Bld Glucose 124 H 141 H 112 H (70 - 100) mg/dL 06/30/21 06/29/21 06/29/21 Range/Units 11:25 23:50 17:39 WBC (4.8-10.8) x10^3/uL RBC (4.20-5.40) 10^6/uL Hgb (12.0-16.0) g/dL Hct (37.0-47.0) % MCV (81.0-99.0) fL MCH (27.0-31.0) pg MCHC (32.0-36.0) g/dL RDW (12.0-15.0) % Plt Count (130-450) 10^3/uL MPV (7.9-10.8) fL Neut # (Auto) (1.5-6.6) 10^3/uL Lymph # (Auto) (1.5-3.5) 10^3/uL [place] # (Auto) (0.0-1.0) 10^3/uL Eos # (Auto) (0.0-0.7) 10^3/uL Baso # (Auto) (0.0-0.1) 10^3/uL Absolute Nucleated RBC x10^3/uL Nucleated RBC % /100WBC Manual Slide Review WBC Morphology (NORMAL) Platelet Estimate (NORMAL) Platelet Morphology (NORMAL) RBC Morph Micro Appear (NORMAL) POC Whole Bld Glucose 119 H 115 H 113 H (70 - 100) mg/dL 06/29/21 06/29/21 06/28/21 Range/Units 12:27 00:25 18:19 WBC (4.8-10.8) x10^3/uL RBC (4.20-5.40) 10^6/uL Hgb (12.0-16.0) g/dL Hct (37.0-47.0) % MCV (81.0-99.0) fL MCH (27.0-31.0) pg MCHC (32.0-36.0) g/dL RDW (12.0-15.0) % Plt Count (130-450) 10^3/uL MPV (7.9-10.8) fL Neut # (Auto) (1.5-6.6) 10^3/uL Lymph # (Auto) (1.5-3.5) 10^3/uL [place] # (Auto) (0.0-1.0) 10^3/uL Eos # (Auto) (0.0-0.7) 10^3/uL Baso # (Auto) (0.0-0.1) 10^3/uL Absolute Nucleated RBC x10^3/uL Nucleated RBC % /100WBC Manual Slide Review WBC Morphology (NORMAL) Platelet Estimate (NORMAL) Platelet Morphology (NORMAL) RBC Morph Micro Appear (NORMAL) POC Whole Bld Glucose 105 H 113 H 114 H (70 - 100) mg/dL 06/28/21 06/28/21 06/27/21 Range/Units 11:30 01:06 18:47 WBC (4.8-10.8) x10^3/uL RBC (4.20-5.40) 10^6/uL Hgb (12.0-16.0) g/dL Hct (37.0-47.0) % MCV (81.0-99.0) fL MCH (27.0-31.0) pg MCHC (32.0-36.0) g/dL RDW (12.0-15.0) % Plt Count (130-450) 10^3/uL MPV (7.9-10.8) fL Neut # (Auto) (1.5-6.6) 10^3/uL Lymph # (Auto) (1.5-3.5) 10^3/uL [place] # (Auto) (0.0-1.0) 10^3/uL Eos # (Auto) (0.0-0.7) 10^3/uL Baso # (Auto) (0.0-0.1) 10^3/uL Absolute Nucleated RBC x10^3/uL Nucleated RBC % /100WBC Manual Slide Review WBC Morphology (NORMAL) Platelet Estimate (NORMAL) Platelet Morphology (NORMAL) RBC Morph Micro Appear (NORMAL) POC Whole Bld Glucose 104 H 140 H 132 H (70 - 100) mg/dL 06/27/21 06/27/21 Range/Units 13:53 04:30 WBC (4.8-10.8) x10^3/uL RBC (4.20-5.40) 10^6/uL Hgb (12.0-16.0) g/dL Hct (37.0-47.0) % MCV (81.0-99.0) fL MCH (27.0-31.0) pg MCHC (32.0-36.0) g/dL RDW (12.0-15.0) % Plt Count (130-450) 10^3/uL MPV (7.9-10.8) fL Neut # (Auto) (1.5-6.6) 10^3/uL Lymph # (Auto) (1.5-3.5) 10^3/uL [place] # (Auto) (0.0-1.0) 10^3/uL Eos # (Auto) (0.0-0.7) 10^3/uL Baso # (Auto) (0.0-0.1) 10^3/uL Absolute Nucleated RBC x10^3/uL Nucleated RBC % /100WBC Manual Slide Review WBC Morphology (NORMAL) Platelet Estimate (NORMAL) Platelet Morphology (NORMAL) RBC Morph Micro Appear (NORMAL) POC Whole Bld Glucose 131 H 176 H (70 - 100) mg/dL ABX Reporting Has patient been on IV antibiotics over the past 48 hours?: Yes Sepsis Event Note (H) - Evaluation Current Stage of Sepsis: Septic shock Possible source of Sepsis: positive: GI tract/intra-abdominal - Sepsis Criteria Sepsis Criteria: WBC count greater than 10% bands, SBP drop more than 40mHg, MAP less than 65 mmHg, SBP less than 90 mmHg, Renal: urine output less than 0.5ml/kg/hr for 2 hours or creatinine gr, Metabolic: lactate > 2 mmol/L Assessment/Plan - Problem List (1) Metabolic encephalopathy Impression: pt followed minimal commands, still fairly lethargic since off on sedation in 10/10 AM, reportedly pt has poor cognitive function at baseline. -will continue to monitor mental status, consider starting PT eval for dispo once pt is more lucid. In discussing with nursing, she is not ready today. I am hoping she will be ready for that in the next 2 days. Caregiver has called nursing, social work, and left a message with me that she would like to discuss this patient's case. However the caregiver is not power of metal sander and finisher. That would be her Sister Katie Massey. Acute peritonitis Resolved s/p perforated DU. Peritoneal fluid culture on 06/26 ngtd. BCX not available. shock resolved, off on vasopressor 10 AM. -continue cefepime, flagyl for now, 06/27- consider 14d course, Anasarca Due to severe protein calorie malnutrition and fluid overload Assessment/Plan: grossly overloaded still from iatrogenic ivf given in periop period -continue diuresis with daily lasix 20mg iv qd increase to bid July 06 she was -1200 cc. July 07 -2234 cc. monitor UOP, consider titrating lasix based on vol status. Perforated duodenal ulcer Assessment/Plan: s/p exploratory laparotomy with repair of posteriorly perforated duodenal ulcer on 06/26 by , course c/b septic shock, prolonged respiratory failure on vent, s/p extubated on 07/05. -awaits surgery eval, tentative plan for po contrast study tomorrow not today via NG, to see if pt can start po feeding -continue TPN for now via RIJ CVC(06/26-)Given mentation, pt likely needs modality for retirement feeding, consider inserting PICC line for TPN, would discontinue RIJ cvc, to reduce risks of infection, once surgery has decided we will move forward Iron deficiency anemia Assessment/Plan: Started Iron 07/04, h/h slowly trending down wo signs of active bleeding, as per surgery, wound looks good without hematoma. plt count stable despite dvt ppx with LMWH, -h/h stable today, target hgb>7, transfuse as needed, -if h/h continues to trend down, will repeat CT a/p Ileus following gastrointestinal surgery Assessment/Plan: Reviewed abd xray Ileus seen Trial of lactulose per NG Chronic, stable, resolved, Hypothyroidism Qualifiers: Hypothyroidism type: acquired Qualified Code(s): E03.9 - Hypothyroidism, unspecified Assessment/Plan: Resume synthroid Schizophrenia Qualifiers: Schizophrenia type: schizophreniform disorder Qualified Code(s): F20.81 - Schizophreniform disorder Assessment/Plan: Stable Resume seroqeul Acute respiratory failure requiring reintubation, RESOLVED, Intubated since postop, w/o clear source evidence of PNA, Extubated on 07/05, o2 demand continue to go down, ddx: pulmonary edema, possibly iatrogenic ivf given in periop period, CHF. CXR today suggestive of worsening CHF. pt remained stable on RA since 07/06- Septic shock, RESOLVED secondary to presumed intraabdominal infection s/p perforated DU. Peritoneal fluid culture on 06/26 ngtd. BCX not available. shock resolved, off on vasopressor 07/07 AM.
[2021-07-08 08:15] LABS: CALCIUM 8.3 mg/dL (8.5-10.3); CREATININE 0.4 mg/dL (0.4-1.0); POTASSIUM 3.9 mmol/L (3.5-5.0)
[2021-07-08] MEDS: CEFEPIME 2 GM in SODIUM CHLORIDE 0.9% MINIBAG 100 ML IV SCH ×2 (08:35→20:38)
[2021-07-08] MEDS: ENOXAPARIN 40 MG/0.4 ML SYRINGE SUBQ SCH (08:37)
[2021-07-08] MEDS: NEUTRA-PHOS 250 MG TABLET PO SCH ×3 (08:52→17:17)
[2021-07-08] MEDS: CALCIUM CARBONATE CHEW 500 MG TABLET PO SCH ×2 (08:52→20:39)
[2021-07-08] MEDS: QUEtiapine 100 MG TABLET PO SCH ×2 (08:52→20:39)
[2021-07-08] MEDS: FUROSEMIDE 20 MG/2 ML VIAL IVP SCH ×2 (08:53→20:38)
[2021-07-08] MEDS: FLUCONAZOLE 200 MG/100 ML 100 ML IV SCH (09:13)
[2021-07-08] MEDS: LACTULOSE 10 GM /15 ML UDC PO SCH ×2 (09:13→20:39)
[2021-07-08] MEDS: CHLORHEXIDINE GLUCONATE 15 ML UDC PO SCH ×2 (10:21→20:39)
[2021-07-08] MEDS ORDERED: DIATRIZOATE MEGLU/DIATRIZO SOD 30 ML BOTTLE PO ONE (14:43)
[2021-07-08] MEDS: LORazepam 2 MG/ML VIAL IVP PRN (15:11)
[2021-07-08] MEDS: GLYCOPYRROLATE 1 MG/5 ML VIAL SUBQ PRN (17:18)
--- NOTE | 2021-07-08 17:37 | PROVIDER PROGRESS NOTE ---
Subjective - General Admit Date: 06/26/21 Procedure Date: 06/26/21 Post Op Days: 12 Procedure Performed: Exploratory laparotomy with repair of posterior duodenal ulcer - Review of Systems Wound/Incisions: positive: Healing well Drain Type: 19 [place] Tanner Drain Output Description: Serosanguineous - Other Other Information/Narrative: Felisha appears dramatically improved from when I last saw her a week ago.She is shaking her head yes and no to questions.Wet productive cough. Objective - Patient Data Reviewed Vital Signs: Yes Vital Signs: Vital Signs x48h Temp Pulse Resp BP Pulse Ox 07/08/21 17:00 86 20 120/65 96 07/08/21 16:00 36.5 C 82 22 118/59 L 97 07/08/21 15:00 83 22 126/66 95 07/08/21 14:00 84 22 129/56 L 95 07/08/21 13:00 92 21 133/67 H 95 07/08/21 12:00 81 20 121/60 95 07/08/21 11:00 82 19 122/57 L 96 07/08/21 10:00 88 18 124/52 L 95 Weight: Weight 07/06/21 07/07/21 07/08/21 23:59 23:59 23:59 Weight (kg) 90 kg 87.5 kg 90.5 kg Intake & Output: Intake and Output Totals x24h 07/06/21 07/07/21 07/08/21 23:59 23:59 23:59 Intake Total 3489.863 2640.217 730 Output Total 4690 5977 2798 Balance -0980.137 -8174.783 -4648 - Lab Results Lab Results: 07/08/21 07:45 07/08/21 07:45 Other Lab Results: Lab Results x24hrs 07/08/21 07/08/21 07/08/21 Range/Units 12:07 07:45 07:45 WBC 12.3 H (4.8-10.8) x10^3/uL RBC 2.92 L (4.20-5.40) 10^6/uL Hgb 8.5 L (12.0-16.0) g/dL Hct 27.8 L (37.0-47.0) % MCV 95.2 (81.0-99.0) fL MCH 29.1 (27.0-31.0) pg MCHC 30.6 L (32.0-36.0) g/dL RDW 20.4 H (12.0-15.0) % Plt Count 538 H (130-450) 10^3/uL MPV 11.1 H (7.9-10.8) fL Neut # (Auto) 9.8 H (1.5-6.6) 10^3/uL Lymph # (Auto) 1.1 L (1.5-3.5) 10^3/uL [place] # (Auto) 0.5 (0.0-1.0) 10^3/uL Eos # (Auto) 0.5 (0.0-0.7) 10^3/uL Baso # (Auto) 0.1 (0.0-0.1) 10^3/uL Absolute Nucleated RBC 0.05 x10^3/uL Nucleated RBC % 0.4 /100WBC Manual Slide Review Indicated WBC Morphology NORMAL APPEARANCE (NORMAL) Platelet Estimate INCREASED (>450,000) (NORMAL) Platelet Morphology NORMAL APPEARANCE (NORMAL) RBC Morph Micro Appear 1+ ANISOCYTOSIS (NORMAL) Sodium 143 (135-145) mmol/L Potassium 3.9 (3.5-5.0) mmol/L Chloride 109 (101-111) mmol/L Carbon Dioxide 27 (21-32) mmol/L Anion Gap 7.0 (6-13) BUN 17 (6-20) mg/dL Creatinine 0.4 (0.4-1.0) mg/dL Estimated GFR (MDRD) 154 (>89) Glucose 171 H (70-100) mg/dL POC Whole Bld Glucose 160 H (70 - 100) mg/dL Calcium 8.3 L (8.5-10.3) mg/dL 07/08/21 07/08/21 Range/Units 06:11 00:04 WBC (4.8-10.8) x10^3/uL RBC (4.20-5.40) 10^6/uL Hgb (12.0-16.0) g/dL Hct (37.0-47.0) % MCV (81.0-99.0) fL MCH (27.0-31.0) pg MCHC (32.0-36.0) g/dL RDW (12.0-15.0) % Plt Count (130-450) 10^3/uL MPV (7.9-10.8) fL Neut # (Auto) (1.5-6.6) 10^3/uL Lymph # (Auto) (1.5-3.5) 10^3/uL [place] # (Auto) (0.0-1.0) 10^3/uL Eos # (Auto) (0.0-0.7) 10^3/uL Baso # (Auto) (0.0-0.1) 10^3/uL Absolute Nucleated RBC x10^3/uL Nucleated RBC % /100WBC Manual Slide Review WBC Morphology (NORMAL) Platelet Estimate (NORMAL) Platelet Morphology (NORMAL) RBC Morph Micro Appear (NORMAL) Sodium (135-145) mmol/L Potassium (3.5-5.0) mmol/L Chloride (101-111) mmol/L Carbon Dioxide (21-32) mmol/L Anion Gap (6-13) BUN (6-20) mg/dL Creatinine (0.4-1.0) mg/dL Estimated GFR (MDRD) (>89) Glucose (70-100) mg/dL POC Whole Bld Glucose 150 H 147 H (70 - 100) mg/dL Calcium (8.5-10.3) mg/dL - Imaging Results Imaging Results Comments: Gastrografin study to evaluate for duodenal leak is reassuring. - Current Medications Current Medications: Current Medications Generic Name Dose Route Start Last Admin Trade Name Colinq PRN Reason Stop Dose Admin Calcium Carbonate/Glycine 500 mg 07/02/21 21:00 07/08/21 08:52 Calcium Carbonate Chew 500 Mg Tablet PO 500 mg BID JULIETA Administration Chlorhexidine Gluconate 15 ml 06/27/21 21:00 07/08/21 10:21 Chlorhexidine Gluconate 15 Ml Udc PO 15 ml BID JULIETA Administration Enoxaparin Sodium 40 mg 06/28/21 09:00 07/08/21 08:37 Enoxaparin 40 Mg/0.4 Ml Syringe SUBQ 40 mg DAILY JULIETA Administration Furosemide 20 mg 07/07/21 09:00 07/08/21 08:53 Furosemide 20 Mg/2 Ml Vial IVP 20 mg BID JULIETA Administration Glycopyrrolate 0.2 mg 06/28/21 21:17 07/08/21 17:18 Glycopyrrolate 1 Mg/5 Ml Vial SUBQ 0.2 mg Q6H PRN Administration Excessive Secretions Hydromorphone HCl 0.5 mg 07/06/21 22:57 07/08/21 14:13 Hydromorphone 0.5 Mg/0.5 Ml Syringe IVP 0.5 mg Q3H PRN Administration PAIN Fluconazole 100 mls @ 100 mls/hr 06/27/21 09:00 07/08/21 10:13 Diflucan 200 Mg/100 Ml IV Infused DAILY JULIETA Infusion Norepinephrine Bitartrate 8 mg 250 mls @ 15 mls/hr 06/26/21 23:00 07/08/21 01:47 / Dextrose IV Not Given .[id number] JULIETA Protocol 8 MCG/MIN Sodium Chloride 500 mls @ 20 mls/hr 06/26/21 23:03 06/30/21 19:27 Normal Saline 0.9% IV Infused Q24H PRN Infusion TKO RATE Multivitamins 10 ml/ TRACE 2,011 mls @ 75 mls/hr 06/27/21 19:00 07/07/21 18:25 ELEMENTS 1 ml/ Amino Ac/ IV 75 mls/hr Electrol/Dextrose/Calcium Q24H JULIETA Administration Protocol Cefepime HCl 2 gm/ Sodium 100 mls @ 200 mls/hr 06/27/21 18:00 07/08/21 09:05 Chloride IV Infused BID JULIETA Infusion Metronidazole 500 mg in 100 mls @ 100 mls/hr 06/29/21 09:00 07/08/21 17:17 Flagyl 500 Mg/100 Ml IV 100 mls/hr Q8H JULIETA Administration Fat Emulsion-Soy/MCT/[place]/Fish Oil 50 gm in 250 mls @ 21 mls/hr 07/05/21 19:00 07/08/21 06:25 Smoflipid 20% Iv Fat Emulsion IV Infused 1900 JULIETA Infusion Lactulose 20 gm 07/05/21 21:00 07/08/21 09:13 Lactulose 10 Gm /15 Ml Udc PO 20 gm BID JULIETA Administration Levothyroxine Sodium 75 mcg 07/07/21 07:00 07/08/21 06:24 Levothyroxine 75 Mcg Tablet PO 75 mcg QDAC JULIETA Administration Lorazepam 0.5 mg 06/26/21 20:54 07/08/21 15:11 Lorazepam 2 Mg/Ml Vial IVP 0.5 mg Q1H PRN Administration Anxiety Midazolam HCl 2 mg 06/28/21 00:24 07/04/21 00:23 Midazolam 2 Mg/2 Ml Vial IVP 2 mg Q2H PRN Administration Agitation Mineral Oil 1 applic 07/01/21 01:24 07/06/21 20:24 Min Oil/Dimethicon/Coconut Oil 92 Gm Tube TOP 1 ea PRN PRN Administration Skin Care Oxycodone HCl 5 mg 07/05/21 15:57 07/08/21 01:52 Oxycodone 5 Mg Tablet PO 5 mg Q4HR PRN Administration PAIN Pantoprazole Sodium 40 mg 06/27/21 07:00 07/08/21 06:24 Pantoprazole 40 Mg Vial IVP 40 mg QDAC JULIETA Administration Phenol/Menthol 2 sprays 07/05/21 21:24 07/07/21 11:03 Phenol Throat [place] 177 Ml MM 2 sprays Q2HR PRN Administration Throat Pain Quetiapine Fumarate 100 mg 07/05/21 21:00 07/08/21 08:52 Quetiapine 100 Mg Tablet PO 100 mg BID JULIETA Administration Scopolamine HBr 1 patch 07/03/21 11:00 07/06/21 10:57 Scopolamine Patch TOP 1 patch Q3D JULIETA Administration Sodium Chloride 10 ml 06/27/21 01:00 07/08/21 17:20 Sodium Chloride Flush 0.9% 10 Ml Syringe IVP Not Given 0100,[id number],1700 JULIETA Sodium Chloride 10 ml 06/26/21 20:54 07/07/21 15:00 Sodium Chloride Flush 0.9% 10 Ml Syringe IVP 10 ml PRN PRN Administration NEEDED PER PROVIDER ORDERS Sodium Chloride 20 ml 06/26/21 23:03 07/07/21 05:12 Sodium Chloride Flush 0.9% 10 Ml Syringe IVP 20 ml PRN PRN Administration After Blood Draw Sodium Phosphate 250 mg 07/02/21 17:00 07/08/21 17:17 Neutra-Phos 250 Mg Tablet PO 250 mg TIDWM JULIETA Administration - Physical Exam Wound/Incisions: positive: Healing well, No drainage General Appearance: positive: No acute distress Abdomen: positive: Nml bowel sounds, No distention, Tenderness. negative: Guarding, Rebound Skin: positive: Color nml ABX Reporting Has patient been on IV antibiotics over the past 48 hours?: Yes Impression/Plan - Problem List Problem List: 1. No evidence of leak following Gastrografin challenge.Will remove the NG tube and start clear liquids tonight.If the drain remains clear, can advance to a soft diet in the morning. 2. Can discontinue IV antibiotics from a surgical perspective.She may need to continue them from another perspective but from a purely abdominal sepsis perspective, she has been fully treated.
[2021-07-08] MEDS: TPN (CLINIMIX E 5/15) 2,000 ML with MULTIVITAMIN 10 ML, TRACE ELEMENTS 1 ML IV SCH ×3 (18:22)
[2021-07-08] MEDS: FAT EMUL/SOY/MCT/OLIV/FISH OIL 50 GM/250 ML BAG IV SCH (18:23)
[2021-07-09] MEDS: metroNIDAZOLE 500 MG/100 ML 500 MG/100 ML BAG IV SCH ×3 (00:51→17:28)
[2021-07-09] MEDS: HYDROmorphone 0.5 MG/0.5 ML SYRINGE IVP PRN ×2 (00:51→16:38)
[2021-07-09] MEDS: SODIUM CHLORIDE FLUSH 0.9% 10 ML SYRINGE IVP PRN ×6 (00:52→15:38)
[2021-07-09] MEDS: LORazepam 2 MG/ML VIAL IVP PRN ×2 (01:39→15:17)
[2021-07-09] MEDS: SODIUM CHLORIDE FLUSH 0.9% 10 ML SYRINGE IVP SCH ×3 (01:40→16:39)
[2021-07-09 05:47] LABS: BASOPHILS # (AUTO) 0.1 10^3/uL (0.0-0.1); BASOPHILS % (AUTO) 0.5 %; EOSINOPHILS # (AUTO) 0.3 10^3/uL (0.0-0.7); HCT - HEMATOCRIT 28.1 % (37.0-47.0); HGB - HEMOGLOBIN 8.6 g/dL (12.0-16.0); LYMPHOCYTES % (AUTO) 8.6 %; MEAN CORPUSCULAR HGB CONC 30.6 g/dL (32.0-36.0); MEAN CORPUSCULAR VOLUME 94.6 fL (81.0-99.0); MONOCYTES # (AUTO) 0.5 10^3/uL (0.0-1.0); MONOCYTES % (AUTO) 4.6 %; NEUTROPHILS # (AUTO) 9.3 10^3/uL (1.5-6.6); NEUTROPHILS % (AUTO) 80.8 %; NRBC ABSOLUTE COUNT (AUTO) 0.04 x10^3/uL; NUCLEATED RED BLOOD CELLS AUTO 0.3 /100WBC; PLT - PLATELET COUNT 556 10^3/uL (130-450); RED BLOOD COUNT 2.97 10^6/uL (4.20-5.40); RED CELL DISTRIBUTION WIDTH 20.9 % (12.0-15.0); WHITE BLOOD COUNT 11.5 x10^3/uL (4.8-10.8)
[2021-07-09 05:54] LABS: SLIDE REVIEW? Indicated
[2021-07-09 05:59] LABS: CALCIUM 8.2 mg/dL (8.5-10.3); CREATININE 0.5 mg/dL (0.4-1.0); POTASSIUM 3.7 mmol/L (3.5-5.0)
[2021-07-09 06:06] LABS: PLATELET ESTIMATE, MANUAL INCREASED (>450,000) (NORMAL); PLATELET MORPHOLOGY NORMAL APPEARANCE (NORMAL); RBC MORPHOLOGY (MULTIPLE) 1+ ANISOCYTOSIS (NORMAL); WBC MORPHOLOGY (MULTIPLE) NORMAL APPEARANCE (NORMAL)
[2021-07-09] MEDS: LEVOTHYROXINE 75 MCG TABLET PO SCH (06:16)
[2021-07-09] MEDS: PANTOPRAZOLE 40 MG VIAL IVP SCH (06:16)
--- NOTE | 2021-07-09 08:19 | PROVIDER PROGRESS NOTE ---
Subjective - General Admit Date: 06/26/21 Procedure Date: 06/26/21 Post Op Days: 13 Procedure Performed: Exploratory laparotomy with repair of posterior duodenal ulcer - Review of Systems Wound/Incisions: positive: Healing well, No drainage Drain Type: 19 [place] Tanner Drain Output Description: Serosanguineous - Other Other Information/Narrative: No bowel movement since admission. Getting lactulose per NGT but not helping. Sleepy but nods head. Objective - Patient Data Vital Signs: Vital Signs x48h Pulse Pulse Resp BP Pulse Ox 07/09/21 07:45 96 23 07/09/21 07:00 87 18 121/54 L 93 07/09/21 06:00 84 14 129/67 92 07/09/21 05:00 85 21 125/61 93 07/09/21 04:00 86 19 115/51 L 93 07/09/21 03:00 84 14 120/53 L 96 07/09/21 02:00 90 15 114/69 94 07/09/21 01:00 101 H 24 122/60 94 Weight: Weight 07/07/21 07/08/21 07/09/21 23:59 23:59 23:59 Weight (kg) 87.5 kg 90.5 kg 88.5 kg Intake & Output: Intake and Output Totals x24h 07/07/21 07/08/21 07/09/21 23:59 23:59 23:59 Intake Total 2640.217 2966.25 400 Output Total 4875 3738 1106 Balance -2234.783 -771.75 -706 - Lab Results Lab Results: 07/09/21 05:00 07/09/21 05:00 Other Lab Results: Lab Results x24hrs 07/09/21 07/09/21 07/09/21 Range/Units 05:00 05:00 00:10 WBC 11.5 H (4.8-10.8) x10^3/uL RBC 2.97 L (4.20-5.40) 10^6/uL Hgb 8.6 L (12.0-16.0) g/dL Hct 28.1 L (37.0-47.0) % MCV 94.6 (81.0-99.0) fL MCH 29.0 (27.0-31.0) pg MCHC 30.6 L (32.0-36.0) g/dL RDW 20.9 H (12.0-15.0) % Plt Count 556 H (130-450) 10^3/uL MPV 11.0 H (7.9-10.8) fL Neut # (Auto) 9.3 H (1.5-6.6) 10^3/uL Lymph # (Auto) 1.0 L (1.5-3.5) 10^3/uL [place] # (Auto) 0.5 (0.0-1.0) 10^3/uL Eos # (Auto) 0.3 (0.0-0.7) 10^3/uL Baso # (Auto) 0.1 (0.0-0.1) 10^3/uL Absolute Nucleated RBC 0.04 x10^3/uL Nucleated RBC % 0.3 /100WBC Manual Slide Review Indicated WBC Morphology NORMAL APPEARANCE (NORMAL) Platelet Estimate INCREASED (>450,000) (NORMAL) Platelet Morphology NORMAL APPEARANCE (NORMAL) RBC Morph Micro Appear 1+ ANISOCYTOSIS (NORMAL) Sodium 142 (135-145) mmol/L Potassium 3.7 (3.5-5.0) mmol/L Chloride 107 (101-111) mmol/L Carbon Dioxide 30 (21-32) mmol/L Anion Gap 5.0 L (6-13) BUN 19 (6-20) mg/dL Creatinine 0.5 (0.4-1.0) mg/dL Estimated GFR (MDRD) 119 (>89) Glucose 141 H (70-100) mg/dL POC Whole Bld Glucose 142 H (70 - 100) mg/dL Calcium 8.2 L (8.5-10.3) mg/dL 07/08/21 07/08/21 Range/Units 17:59 12:07 WBC (4.8-10.8) x10^3/uL RBC (4.20-5.40) 10^6/uL Hgb (12.0-16.0) g/dL Hct (37.0-47.0) % MCV (81.0-99.0) fL MCH (27.0-31.0) pg MCHC (32.0-36.0) g/dL RDW (12.0-15.0) % Plt Count (130-450) 10^3/uL MPV (7.9-10.8) fL Neut # (Auto) (1.5-6.6) 10^3/uL Lymph # (Auto) (1.5-3.5) 10^3/uL [place] # (Auto) (0.0-1.0) 10^3/uL Eos # (Auto) (0.0-0.7) 10^3/uL Baso # (Auto) (0.0-0.1) 10^3/uL Absolute Nucleated RBC x10^3/uL Nucleated RBC % /100WBC Manual Slide Review WBC Morphology (NORMAL) Platelet Estimate (NORMAL) Platelet Morphology (NORMAL) RBC Morph Micro Appear (NORMAL) Sodium (135-145) mmol/L Potassium (3.5-5.0) mmol/L Chloride (101-111) mmol/L Carbon Dioxide (21-32) mmol/L Anion Gap (6-13) BUN (6-20) mg/dL Creatinine (0.4-1.0) mg/dL Estimated GFR (MDRD) (>89) Glucose (70-100) mg/dL POC Whole Bld Glucose 148 H 160 H (70 - 100) mg/dL Calcium (8.5-10.3) mg/dL - Current Medications Current Medications: Current Medications Generic Name Dose Route Start Last Admin Trade Name Freq PRN Reason Stop Dose Admin Calcium Carbonate/Glycine 500 mg 07/02/21 21:00 07/08/21 20:39 Calcium Carbonate Chew 500 Mg Tablet PO 500 mg BID JULIETA Administration Chlorhexidine Gluconate 15 ml 06/27/21 21:00 07/08/21 20:39 Chlorhexidine Gluconate 15 Ml Udc PO 15 ml BID JULIETA Administration Enoxaparin Sodium 40 mg 06/28/21 09:00 07/08/21 08:37 Enoxaparin 40 Mg/0.4 Ml Syringe SUBQ 40 mg DAILY JULIETA Administration Furosemide 20 mg 07/07/21 09:00 07/08/21 20:38 Furosemide 20 Mg/2 Ml Vial IVP 20 mg BID JULIETA Administration Glycopyrrolate 0.2 mg 06/28/21 21:17 07/08/21 17:18 Glycopyrrolate 1 Mg/5 Ml Vial SUBQ 0.2 mg Q6H PRN Administration Excessive Secretions Hydromorphone HCl 0.5 mg 07/06/21 22:57 07/09/21 00:51 Hydromorphone 0.5 Mg/0.5 Ml Syringe IVP 0.5 mg Q3H PRN Administration PAIN Fluconazole 100 mls @ 100 mls/hr 06/27/21 09:00 07/08/21 10:13 Diflucan 200 Mg/100 Ml IV Infused DAILY JULIETA Infusion Norepinephrine Bitartrate 8 mg 250 mls @ 15 mls/hr 06/26/21 23:00 07/08/21 18:59 / Dextrose IV Not Given .[id number] JULIETA Protocol 8 MCG/MIN Sodium Chloride 500 mls @ 20 mls/hr 06/26/21 23:03 06/30/21 19:27 Normal Saline 0.9% IV Infused Q24H PRN Infusion TKO RATE Multivitamins 10 ml/ TRACE 2,011 mls @ 75 mls/hr 06/27/21 19:00 07/08/21 18:22 ELEMENTS 1 ml/ Amino Ac/ IV 75 mls/hr Electrol/Dextrose/Calcium Q24H JULIETA Administration Protocol Cefepime HCl 2 gm/ Sodium 100 mls @ 200 mls/hr 06/27/21 18:00 07/08/21 21:37 Chloride IV Infused BID JULIETA Infusion Metronidazole 500 mg in 100 mls @ 100 mls/hr 06/29/21 09:00 07/09/21 02:13 Flagyl 500 Mg/100 Ml IV Infused Q8H JULIETA Infusion Fat Emulsion-Soy/MCT/[place]/Fish Oil 50 gm in 250 mls @ 21 mls/hr 07/05/21 19:00 07/09/21 06:28 Smoflipid 20% Iv Fat Emulsion IV Infused 1900 JLUIETA Infusion Lactulose 20 gm 07/05/21 21:00 07/08/21 20:39 Lactulose 10 Gm /15 Ml Udc PO 20 gm BID JULIETA Administration Levothyroxine Sodium 75 mcg 07/07/21 07:00 07/09/21 06:16 Levothyroxine 75 Mcg Tablet PO 75 mcg QDAC JULIETA Administration Lorazepam 0.5 mg 06/26/21 20:54 07/09/21 01:39 Lorazepam 2 Mg/Ml Vial IVP 0.5 mg Q1H PRN Administration Anxiety Midazolam HCl 2 mg 06/28/21 00:24 07/04/21 00:23 Midazolam 2 Mg/2 Ml Vial IVP 2 mg Q2H PRN Administration Agitation Mineral Oil 1 applic 07/01/21 01:24 07/06/21 20:24 Min Oil/Dimethicon/Coconut Oil 92 Gm Tube TOP 1 ea PRN PRN Administration Skin Care Oxycodone HCl 5 mg 07/05/21 15:57 07/08/21 01:52 Oxycodone 5 Mg Tablet PO 5 mg Q4HR PRN Administration PAIN Pantoprazole Sodium 40 mg 06/27/21 07:00 07/09/21 06:16 Pantoprazole 40 Mg Vial IVP 40 mg QDAC JULIETA Administration Phenol/Menthol 2 sprays 07/05/21 21:24 07/07/21 11:03 Phenol Throat [place] 177 Ml MM 2 sprays Q2HR PRN Administration Throat Pain Quetiapine Fumarate 100 mg 07/05/21 21:00 07/08/21 20:39 Quetiapine 100 Mg Tablet PO 100 mg BID JULIETA Administration Scopolamine HBr 1 patch 07/03/21 11:00 07/06/21 10:57 Scopolamine Patch TOP 1 patch Q3D JULIETA Administration Sodium Chloride 10 ml 06/27/21 01:00 07/09/21 01:40 Sodium Chloride Flush 0.9% 10 Ml Syringe IVP 10 ml 0100,0900,1700 JULIETA Administration Sodium Chloride 10 ml 06/26/21 20:54 07/09/21 05:06 Sodium Chloride Flush 0.9% 10 Ml Syringe IVP 10 ml PRN PRN Administration NEEDED PER PROVIDER ORDERS Sodium Chloride 20 ml 06/26/21 23:03 07/09/21 05:06 Sodium Chloride Flush 0.9% 10 Ml Syringe IVP 20 ml PRN PRN Administration After Blood Draw Sodium Phosphate 250 mg 07/02/21 17:00 07/08/21 17:17 Neutra-Phos 250 Mg Tablet PO 250 mg TIDWM JULIETA Administration - Physical Exam Wound/Incisions: positive: Healing well General Appearance: positive: No acute distress, Lethargic Abdomen: positive: Nml bowel sounds, Tenderness. negative: Guarding, Rebound Impression/Plan - Problem List Problem List: 1. Gastrografin challenge is consistent with gastric outlet obstruction. We will need to leave the NG tube in place and put back to suction. Hopefully this will resolve with conservative management. 2. Will start enemas from below. Add low-dose Reglan if medicine has no objection.
[2021-07-09] MEDS ORDERED: METOCLOPRAMIDE 10 MG/2 ML VIAL IVP PRN (08:22)
[2021-07-09] MEDS: NEUTRA-PHOS 250 MG TABLET PO SCH (08:27)
[2021-07-09] MEDS: CALCIUM CARBONATE CHEW 500 MG TABLET PO SCH (08:27)
--- NOTE | 2021-07-09 08:33 | XRAY Report ---
PROCEDURE: SBFT Challenge Panel INDICATIONS: Gastrografin challenge to assess for leak COMPARISON: Abdominal x-ray 07/05/2021 FINDINGS: Preprocedural pasting inspector film shows a diffusely dilated and air-filled small bowel. Gastrografin contrast was administered through the patient's nasogastric tube and serial AP abdominal radiographs were obtained over the course of the hours. At no point did the contrast progressed beyo nd the stomach. The small bowel gas pattern remains diffusely dilated. Oral contrast did not progress into the duodenum and, therefore, duodenal leak cannot be strictly excluded. IMPRESSION: Gastrografin contrast administered through the patient's enteric tube did not progress at all, remain ing in the stomach for the entire 18 hour duration of the exam. There is no plain radiographic eviden ce of extraluminal contrast material, although this would not be expected even in the setting of a du odenal leak given the retention of contrast in the stomach. If clinically warranted, a repeat CT exam ination could be considered. Reviewed by: Ariel Perez MD on 07/09/2021 8:31 AM PDT Approved by: Ariel Perez MD on 07/09/2021 8:31 AM PDT Station ID: [id number]
[2021-07-09] MEDS ORDERED: MINERAL OIL ENEMA 133 ML BOTTLE RC ONE ×2 (09:00→16:00)
[2021-07-09] MEDS: FUROSEMIDE 20 MG/2 ML VIAL IVP SCH ×2 (09:06→21:04)
[2021-07-09] MEDS: FLUCONAZOLE 200 MG/100 ML 100 ML IV SCH (09:17)
[2021-07-09] MEDS: CEFEPIME 2 GM in SODIUM CHLORIDE 0.9% MINIBAG 100 ML IV SCH ×2 (09:41→21:03)
[2021-07-09] MEDS: QUEtiapine 100 MG TABLET PO SCH (09:48)
[2021-07-09] MEDS: oxyCODONE 5 MG TABLET PO PRN (09:48)
[2021-07-09] MEDS: LACTULOSE 10 GM /15 ML UDC PO SCH ×2 (09:51→11:59)
[2021-07-09] MEDS: CHLORHEXIDINE GLUCONATE 15 ML UDC PO SCH ×2 (09:51→21:04)
[2021-07-09] MEDS: ENOXAPARIN 40 MG/0.4 ML SYRINGE SUBQ SCH (09:52)
--- NOTE | 2021-07-09 10:59 | PROVIDER PROGRESS NOTE ---
<Tobi Treviño - Last Filed: 07/09/21 15:21> Subjective - Prog Note Date Prog Note Date: 07/09/21 Prog Note Time: 10:58 - Subjective Pt reports feeling: No change (UTO due to patients mental status and communication deficits) Subjective: Pt opens eyes to verbal stimuli. She can follow commands and move her extremities. She makes garbled noises in an attempt to communicate, but no clear speech. RNs reported a desaturation event around 1000 where her saturation dropped into the 80s. The nurses provided suction that removed "frothy secretions." She was put on 5L O2 via nasal canula. She is now saturating at 98. RN reports that she has psychiatric nursing assistant named Henny that is fairly involved and has called to check on her. Current Medications - Current Medications Current Medications: Active Medications Acetaminophen (Acetaminophen 500 Mg Tablet) 500 mg PO Q4HR PRN PRN Reason: Pain or Fever > 38C (100.4F) Benzocaine/Butamben/Tetracaine HCl (Benzocaine/Tetracaine/Butamben 20 Gm) 1 sprays MM DAILY PRN PRN Reason: Throat Pain Calcium Carbonate/Glycine (Calcium Carbonate Chew 500 Mg Tablet) 500 mg PO BID [facility] Last Admin: 07/09/21 08:27 Dose: 500 mg Documented by: Chlorhexidine Gluconate (Chlorhexidine Gluconate 15 Ml Udc) 15 ml PO BID [facility] Last Admin: 07/09/21 09:51 Dose: 15 ml Documented by: Enoxaparin Sodium (Enoxaparin 40 Mg/0.4 Ml Syringe) 40 mg SUBQ DAILY [facility] Last Admin: 07/09/21 09:52 Dose: 40 mg Documented by: Furosemide (Furosemide 20 Mg/2 Ml Vial) 20 mg IVP BID [facility] Last Admin: 07/09/21 09:06 Dose: 20 mg Documented by: Glycopyrrolate (Glycopyrrolate 1 Mg/5 Ml Vial) 0.2 mg SUBQ Q6H PRN PRN Reason: Excessive Secretions Last Admin: 07/08/21 17:18 Dose: 0.2 mg Documented by: Hydromorphone HCl (Hydromorphone 0.5 Mg/0.5 Ml Syringe) 0.5 mg IVP Q3H PRN PRN Reason: PAIN Last Admin: 07/09/21 00:51 Dose: 0.5 mg Documented by: Fluconazole (Diflucan 200 Mg/100 Ml) 100 mls @ 100 mls/hr IV DAILY [facility] Last Admin: 07/09/21 09:17 Dose: 100 mls/hr Documented by: Norepinephrine Bitartrate 8 mg (/ Dextrose) 250 mls @ 15 mls/hr IV .[id number] [facility]; Protocol Last Admin: 07/08/21 18:59 Dose: Not Given Documented by: Sodium Chloride (Normal Saline 0.9%) 500 mls @ 20 mls/hr IV Q24H PRN PRN Reason: TKO RATE Last Infusion: 06/30/21 19:27 Dose: Infused Documented by: Multivitamins 10 ml/ TRACE ELEMENTS 1 ml/ Amino Ac/Electrol/Dextrose/Calcium 2,011 mls @ 75 mls/hr IV Q24H [facility]; Protocol Last Admin: 07/08/21 18:22 Dose: 75 mls/hr Documented by: Cefepime HCl 2 gm/ Sodium (Chloride) 100 mls @ 200 mls/hr IV BID [facility] Last Admin: 07/09/21 09:41 Dose: 200 mls/hr Documented by: Metronidazole (Flagyl 500 Mg/100 Ml) 500 mg in 100 mls @ 100 mls/hr IV Q8H [facility] Last Admin: 07/09/21 09:29 Dose: 100 mls/hr Documented by: Fat Emulsion-Soy/MCT/[place]/Fish Oil (Smoflipid 20% Iv Fat Emulsion) 50 gm in 250 mls @ 21 mls/hr IV 1900 [facility] Last Infusion: 07/09/21 06:28 Dose: Infused Documented by: Lactulose (Lactulose 10 Gm /15 Ml Udc) 20 gm PO BID [facility] Last Admin: 07/08/21 20:39 Dose: 20 gm Documented by: Levothyroxine Sodium (Levothyroxine 75 Mcg Tablet) 75 mcg PO QDAC [facility] Last Admin: 07/09/21 06:16 Dose: 75 mcg Documented by: Lorazepam (Lorazepam 2 Mg/Ml Vial) 0.5 mg IVP Q1H PRN PRN Reason: Anxiety Last Admin: 07/09/21 01:39 Dose: 0.5 mg Documented by: Metoclopramide HCl (Metoclopramide 10 Mg/2 Ml Vial) 5 mg IVP Q6HR PRN PRN Reason: Nausea / Vomiting Midazolam HCl (Midazolam 2 Mg/2 Ml Vial) 2 mg IVP Q2H PRN PRN Reason: Agitation Last Admin: 07/04/21 00:23 Dose: 2 mg Documented by: Mineral Oil (Min Oil/Dimethicon/Coconut Oil 92 Gm Tube) 1 applic TOP PRN PRN PRN Reason: Skin Care Last Admin: 07/06/21 20:24 Dose: 1 ea Documented by: Ondansetron HCl (Ondansetron 4 Mg/2 Ml Vial) 4 mg IVP Q6H PRN PRN Reason: Nausea / Vomiting Oxycodone HCl (Oxycodone 5 Mg Tablet) 5 mg PO Q4HR PRN PRN Reason: PAIN Last Admin: 07/09/21 09:48 Dose: 5 mg Documented by: Pantoprazole Sodium (Pantoprazole 40 Mg Vial) 40 mg IVP QDAC [facility] Last Admin: 07/09/21 06:16 Dose: 40 mg Documented by: Phenol/Menthol (Phenol Throat [place] 177 Ml) 2 sprays MM Q2HR PRN PRN Reason: Throat Pain Last Admin: 07/07/21 11:03 Dose: 2 sprays Documented by: Quetiapine Fumarate (Quetiapine 100 Mg Tablet) 100 mg PO BID [facility] Last Admin: 07/09/21 09:48 Dose: 100 mg Documented by: Scopolamine HBr (Scopolamine Patch) 1 patch TOP Q3D [facility] Last Admin: 07/06/21 10:57 Dose: 1 patch Documented by: Sodium Chloride (Sodium Chloride Flush 0.9% 10 Ml Syringe) 10 ml IVP 0100,0900,1700 [facility] Last Admin: 07/09/21 09:06 Dose: 10 ml Documented by: Sodium Chloride (Sodium Chloride Flush 0.9% 10 Ml Syringe) 10 ml IVP PRN PRN PRN Reason: NEEDED PER PROVIDER ORDERS Last Admin: 07/09/21 11:10 Dose: 10 ml Documented by: Sodium Chloride (Sodium Chloride Flush 0.9% 10 Ml Syringe) 20 ml IVP PRN PRN PRN Reason: After Blood Draw Last Admin: 07/09/21 05:06 Dose: 20 ml Documented by: Sodium Phosphate (Neutra-Phos 250 Mg Tablet) 250 mg PO TIDWM [facility] Last Admin: 07/09/21 08:27 Dose: 250 mg Documented by: Levothyroxine [Synthroid] 75 mcg PO QDAC 07/22/19 Simvastatin [Zocor] 20 mg PO QPM 07/22/19 Torsemide 40 mg PO DAILY 07/22/19 Potassium Chloride 10 meq PO DAILY 01/11/20 EPINEPHrine [Epipen Jr] 0.3 mg IM ONCE PRN 04/12/20 traZODone [Desyrel] 200 mg PO QPM 04/12/20 Meloxicam [Mobic] 7.5 mg PO BID 10/21/20 QUEtiapine [SEROquel] 100 mg PO BID 10/21/20 Objective - Vital Signs/Intake & Output Vital Signs: Vital Signs x48h Pulse Pulse Resp BP Pulse Ox 07/09/21 09:28 96 23 93 07/09/21 07:45 96 23 07/09/21 07:00 87 18 121/54 L 93 07/09/21 06:00 84 14 129/67 92 07/09/21 05:00 85 21 125/61 93 07/09/21 04:00 86 19 115/51 L 93 07/09/21 03:00 84 14 120/53 L 96 Intake & Output: Intake & Output 07/06/21 07/07/21 07/08/21 07/09/21 23:59 23:59 23:59 23:59 Intake Total 3489.863 2640.217 2966.25 400 Output Total 4690 4875 3738 1106 Balance -1200.137 -2234.783 -771.75 -706 - Objective General Appearance: positive: No acute distress, Lethargic (Gargling present) Eyes Bilateral: positive: Other (R eye deviation.) Neck: positive: No JVD, Trachea midline Respiratory: positive: Other (Upper airway noise/gurgling). negative: Wheezes (Difficult to auscultate, but no obvious wheezes) Cardiovascular: positive: Regular rate & rhythm Peripheral Pulses: 1+ Radial (R), 1+ Radial (L) Abdomen: positive: Nml bowel sounds, Other (Difficult to gauge patients pain response. No grimacing or reaction to palpation.) Skin: positive: Warm, Dry Extremities: positive: Pedal edema (Significant edema present bilaterally.) Neurologic/Psychiatric: positive: Other - Lab Results Fish Bones: 07/09/21 05:00 07/09/21 05:00 Other Labs: Lab Results x24hrs 07/09/21 07/09/21 07/09/21 Range/Units 05:00 05:00 00:10 WBC 11.5 H (4.8-10.8) x10^3/uL RBC 2.97 L (4.20-5.40) 10^6/uL Hgb 8.6 L (12.0-16.0) g/dL Hct 28.1 L (37.0-47.0) % MCV 94.6 (81.0-99.0) fL MCH 29.0 (27.0-31.0) pg MCHC 30.6 L (32.0-36.0) g/dL RDW 20.9 H (12.0-15.0) % Plt Count 556 H (130-450) 10^3/uL MPV 11.0 H (7.9-10.8) fL Neut # (Auto) 9.3 H (1.5-6.6) 10^3/uL Lymph # (Auto) 1.0 L (1.5-3.5) 10^3/uL [place] # (Auto) 0.5 (0.0-1.0) 10^3/uL Eos # (Auto) 0.3 (0.0-0.7) 10^3/uL Baso # (Auto) 0.1 (0.0-0.1) 10^3/uL Absolute Nucleated RBC 0.04 x10^3/uL Nucleated RBC % 0.3 /100WBC Manual Slide Review Indicated WBC Morphology NORMAL APPEARANCE (NORMAL) Platelet Estimate INCREASED (>450,000) (NORMAL) Platelet Morphology NORMAL APPEARANCE (NORMAL) RBC Morph Micro Appear 1+ ANISOCYTOSIS (NORMAL) Sodium 142 (135-145) mmol/L Potassium 3.7 (3.5-5.0) mmol/L Chloride 107 (101-111) mmol/L Carbon Dioxide 30 (21-32) mmol/L Anion Gap 5.0 L (6-13) BUN 19 (6-20) mg/dL Creatinine 0.5 (0.4-1.0) mg/dL Estimated GFR (MDRD) 119 (>89) Glucose 141 H (70-100) mg/dL POC Whole Bld Glucose 142 H (70 - 100) mg/dL Calcium 8.2 L (8.5-10.3) mg/dL 07/08/21 07/08/21 Range/Units 17:59 12:07 WBC (4.8-10.8) x10^3/uL RBC (4.20-5.40) 10^6/uL Hgb (12.0-16.0) g/dL Hct (37.0-47.0) % MCV (81.0-99.0) fL MCH (27.0-31.0) pg MCHC (32.0-36.0) g/dL RDW (12.0-15.0) % Plt Count (130-450) 10^3/uL MPV (7.9-10.8) fL Neut # (Auto) (1.5-6.6) 10^3/uL Lymph # (Auto) (1.5-3.5) 10^3/uL [place] # (Auto) (0.0-1.0) 10^3/uL Eos # (Auto) (0.0-0.7) 10^3/uL Baso # (Auto) (0.0-0.1) 10^3/uL Absolute Nucleated RBC x10^3/uL Nucleated RBC % /100WBC Manual Slide Review WBC Morphology (NORMAL) Platelet Estimate (NORMAL) Platelet Morphology (NORMAL) RBC Morph Micro Appear (NORMAL) Sodium (135-145) mmol/L Potassium (3.5-5.0) mmol/L Chloride (101-111) mmol/L Carbon Dioxide (21-32) mmol/L Anion Gap (6-13) BUN (6-20) mg/dL Creatinine (0.4-1.0) mg/dL Estimated GFR (MDRD) (>89) Glucose (70-100) mg/dL POC Whole Bld Glucose 148 H 160 H (70 - 100) mg/dL Calcium (8.5-10.3) mg/dL Sepsis Event Note (H) - Evaluation Current Stage of Sepsis: Septic shock Possible source of Sepsis: positive: GI tract/intra-abdominal - Sepsis Criteria Sepsis Criteria: WBC count greater than 10% bands, SBP drop more than 40mHg, MAP less than 65 mmHg, SBP less than 90 mmHg, Renal: urine output less than 0.5ml/kg/hr for 2 hours or creatinine gr, Metabolic: lactate > 2 mmol/L Assessment/Plan - Problem List (1) Acute encephalopathy Impression: pt followed minimal commands, still fairly lethargic since off on sedation in 10 AM, reportedly pt has poor cognitive function at baseline. -will continue to monitor mental status, consider starting PT eval for dispo once pt is more lucid. Caregiver has called nursing, social work, and left a message with me that she would like to discuss this patient's case. However the caregiver is not power of estate attorney. That would be her Sister Katie Massey. Acute peritonitis Resolved s/p perforated DU. Peritoneal fluid culture on 06/26 ngtd. BCX not available. shock resolved, off on vasopressor 07/07 AM. -continue cefepime, flagyl for now, 06/27- consider 14d course, Anasarca Due to severe protein calorie malnutrition and fluid overload Assessment/Plan: grossly overloaded still from iatrogenic ivf given in periop period -continue diuresis with daily lasix 20mg iv qd increase to bid 07/07, July 06 she was -1200 cc. July 07 -2234 cc. monitor UOP, consider titrating lasix based on vol status. Perforated duodenal ulcer, Status post direct repair Heineke-Mikurez Pyloroplasty, Gram Patch Assessment/Plan: s/p exploratory laparotomy with repair of posteriorly perforated duodenal ulcer on 06/26 by , course c/b septic shock, prolonged respiratory failure on vent, s/p extubated on 07/05. -Gastrografin challenge was consistent with gastric outlet obstruction. Dr. Dobson hopes that this will resolve with conservative management.This may take an extended period of time to resolve. -Leave NG tube in place and suction. Will start enemas from below to try and get things moving. Surgeon would also like low-dose Reglan added. Continue TPN for now via RIJ CVC(06/26-)Given mentation, pt likely needs modality for terminal carman feeding, consider inserting PICC line for TPN, would discontinue RIJ cvc, to reduce risks of infection. At this time surgery has decided to wait before pursuing further surgical intervention. Will continue to monitor patients progress and reassess. Iron deficiency anemia Assessment/Plan: Started Iron 07/04, h/h slowly trending down wo signs of active bleeding, as per surgery, wound looks good without hematoma. plt count stable despite dvt ppx with LMWH, -h/h stable today, target hgb>7, transfuse as needed, -h/h seems to be trending up. Today with the most recent hgb at 8.6. Ileus following gastrointestinal surgery Assessment/Plan: Reviewed abd xray Ileus seen Patient has received lactulose via NGT, but it does not appear to be helping per surgeon. Will start low-dose Reglan. Chronic, stable, resolved, Hypothyroidism Qualifiers: Hypothyroidism type: acquired Qualified Code(s): E03.9 - Hypothyroidism, unspecified Assessment/Plan: Continue synthroid Schizophrenia Qualifiers: Schizophrenia type: schizophreniform disorder Qualified Code(s): F20.81 - Schizophreniform disorder Assessment/Plan: Stable Continue seroqeul Acute respiratory failure requiring reintubation, RESOLVED, Intubated since postop, w/o clear source evidence of PNA, Extubated on 07/05, o2 demand continue to go down, ddx: pulmonary edema, possibly iatrogenic ivf given in periop period, CHF. CXR today 07/08 suggestive of worsening CHF. pt remained stable on RA since 07/06- Septic shock, RESOLVED secondary to presumed intraabdominal infection s/p perforated DU. Peritoneal fluid culture on 06/26 ngtd. BCX not available. shock resolved, off on vasopressor 1010 AM. <Perla Pang L - Last Filed: 07/09/21 18:15> Objective - Vital Signs/Intake & Output Vital Signs: Vital Signs x48h Temp Pulse Pulse Resp BP Pulse Ox 07/09/21 18:12 36.1 C L 103 H 22 125/84 H 99 07/09/21 17:00 36.1 C L 110 H 113 H 24 127/75 99 07/09/21 16:00 36.1 C L 78 12 109/65 100 07/09/21 15:02 36.3 C L 85 19 119/71 100 07/09/21 14:50 89 07/09/21 14:00 36.7 C 77 25 H 125/62 91 L 07/09/21 13:20 21 94 07/09/21 13:13 19 90 L 07/09/21 12:50 20 94 07/09/21 12:00 36.8 C 75 18 113/57 L 99 07/09/21 11:00 86 17 109/56 L 99 Intake & Output: Intake & Output 07/06/21 07/07/21 07/08/21 07/09/21 23:59 23:59 23:59 23:59 Intake Total 3489.863 2640.217 2966.25 1888.75 Output Total 4690 4875 3738 2603 Balance -1200.137 -2234.783 -771.75 -714.25 - Lab Results Fish Bones: 07/09/21 05:00 07/09/21 05:00 Other Labs: Lab Results x24hrs 07/09/21 07/09/21 07/09/21 Range/Units 14:25 12:17 05:00 WBC (4.8-10.8) x10^3/uL RBC (4.20-5.40) 10^6/uL Hgb (12.0-16.0) g/dL Hct (37.0-47.0) % MCV (81.0-99.0) fL MCH (27.0-31.0) pg MCHC (32.0-36.0) g/dL RDW (12.0-15.0) % Plt Count (130-450) 10^3/uL MPV (7.9-10.8) fL Neut # (Auto) (1.5-6.6) 10^3/uL Lymph # (Auto) (1.5-3.5) 10^3/uL [place] # (Auto) (0.0-1.0) 10^3/uL Eos # (Auto) (0.0-0.7) 10^3/uL Baso # (Auto) (0.0-0.1) 10^3/uL Absolute Nucleated RBC x10^3/uL Nucleated RBC % /100WBC Manual Slide Review WBC Morphology (NORMAL) Platelet Estimate (NORMAL) Platelet Morphology (NORMAL) RBC Morph Micro Appear (NORMAL) Bld Gas Analysis Time 1436 Sample Site RIGHT RADIAL ABG pH 7.35 (7.35-7.45) ABG pCO2 55 H (34-45) mmHg ABG pO2 83 (80-100) mmHg ABG HCO3 29.9 H (22.0-26.0) mmol/L ABG Total CO2 31.6 H (21.0-29.0) MMOL/L ABG O2 Saturation 95 (94-98) % ABG Base Excess 3.4 H (-2.0-3.0) mmol/L Ruperto Test POSITIVE O2 Delivery Device NON REBREATHER MASK O2 Liters/Min 15.00 LPM Sodium 142 (135-145) mmol/L Potassium 3.7 (3.5-5.0) mmol/L Chloride 107 (101-111) mmol/L Carbon Dioxide 30 (21-32) mmol/L Anion Gap 5.0 L (6-13) BUN 19 (6-20) mg/dL Creatinine 0.5 (0.4-1.0) mg/dL Estimated GFR (MDRD) 119 (>89) Glucose 141 H (70-100) mg/dL POC Whole Bld Glucose 142 H (70 - 100) mg/dL Calcium 8.2 L (8.5-10.3) mg/dL 07/09/21 07/09/21 Range/Units 05:00 00:10 WBC 11.5 H (4.8-10.8) x10^3/uL RBC 2.97 L (4.20-5.40) 10^6/uL Hgb 8.6 L (12.0-16.0) g/dL Hct 28.1 L (37.0-47.0) % MCV 94.6 (81.0-99.0) fL MCH 29.0 (27.0-31.0) pg MCHC 30.6 L (32.0-36.0) g/dL RDW 20.9 H (12.0-15.0) % Plt Count 556 H (130-450) 10^3/uL MPV 11.0 H (7.9-10.8) fL Neut # (Auto) 9.3 H (1.5-6.6) 10^3/uL Lymph # (Auto) 1.0 L (1.5-3.5) 10^3/uL [place] # (Auto) 0.5 (0.0-1.0) 10^3/uL Eos # (Auto) 0.3 (0.0-0.7) 10^3/uL Baso # (Auto) 0.1 (0.0-0.1) 10^3/uL Absolute Nucleated RBC 0.04 x10^3/uL Nucleated RBC % 0.3 /100WBC Manual Slide Review Indicated WBC Morphology NORMAL APPEARANCE (NORMAL) Platelet Estimate INCREASED (>450,000) (NORMAL) Platelet Morphology NORMAL APPEARANCE (NORMAL) RBC Morph Micro Appear 1+ ANISOCYTOSIS (NORMAL) Bld Gas Analysis Time Sample Site ABG pH (7.35-7.45) ABG pCO2 (34-45) mmHg ABG pO2 (80-100) mmHg ABG HCO3 (22.0-26.0) mmol/L ABG Total CO2 (21.0-29.0) MMOL/L ABG O2 Saturation (94-98) % ABG Base Excess (-2.0-3.0) mmol/L Ruperto Test O2 Delivery Device O2 Liters/Min LPM Sodium (135-145) mmol/L Potassium (3.5-5.0) mmol/L Chloride (101-111) mmol/L Carbon Dioxide (21-32) mmol/L Anion Gap (6-13) BUN (6-20) mg/dL Creatinine (0.4-1.0) mg/dL Estimated GFR (MDRD) (>89) Glucose (70-100) mg/dL POC Whole Bld Glucose 142 H (70 - 100) mg/dL Calcium (8.5-10.3) mg/dL
[2021-07-09] MEDS: SCOPOLAMINE PATCH TOP SCH (12:54)
--- NOTE | 2021-07-09 14:19 | XRAY Report ---
PROCEDURE: Chest 1 View X-Ray INDICATIONS: sudden desat and gurgling TECHNIQUE: One view of the chest was acquired. COMPARISON: 07/07/2021. FINDINGS: Surgical changes and devices: Central venous catheter projects in the mid SVC via right IJ approach. NG tube projects across the GE junction without visualization of distal tip and side-port. Left chest cardiac pacer is stable. Lungs and pleura: Small bilateral pleural fluid collections. Bibasilar lung consolidation. Left basil ar consolidation has increased in size compared to prior examination. Right basilar lung consolidatio n is stable. Mediastinum: Mediastinal contours appear normal. Heart is enlarged. Bones and chest wall: No suspicious bony lesions. Overlying soft tissues appear unremarkable. IMPRESSION: Worsening left basilar lung consolidation concerning for progression of pneumonia. Stable bilateral p leural fluid collections and right basilar pneumonia. Reviewed by: Leni Hernández MD, PhD on 07/09/2021 2:17 PM PDT Approved by: Leni Hernández MD, PhD on 07/09/2021 2:17 PM PDT Station ID: [id number]
[2021-07-09 15:22] LABS: ABG BASE EXCESS 3.4 mmol/L (-2.0-3.0); ABG HCO3 29.9 mmol/L (22.0-26.0); ABG PCO2 55 mmHg (34-45); ABG PH 7.35 (7.35-7.45); ABG PO2 83 mmHg (80-100); ABG TCO2 31.6 MMOL/L (21.0-29.0)
[2021-07-09 15:23] LABS: ABG OXYGEN SATURATION 95 % (94-98); ALLEN TEST POSITIVE
[2021-07-09] MEDS: levoFLOXacin 750 MG/150 ML 750 MG/150 ML BAG IV SCH (15:24)
[2021-07-09] MEDS ORDERED: VANCOMYCIN INJ 2 GM in SODIUM CHLORIDE 0.9% 500 ML IV ONE (15:30)
--- NOTE | 2021-07-09 15:46 | PHARMACY PROGRESS NOTE ---
- Therapy Status Therapy status: Awaiting steady state Basis for treatment: Empirical Treatment indication: HAP Trough goal: 15-20 Concurrent antibiotics: Cefepime, Flagyl, and Fluconazole since 06/27 Levofloxacin started 07/09 - FLORENTIN Risk Risk level for Acute Kidney Injury: High Acute Kidney Injury risk factors: Goal trough >15, Admission to ICU - Monitoring and Recommendation Clinical response to treatment: I&O Previous 24 hours 07/07/21 07/08/21 07/09/21 23:59 23:59 23:59 Intake Total 2640.217 2966.25 1888.75 Output Total 4875 3738 2503 [facility] -2234.783 -771.75 -614.25 Lab Results 07/09/21 07/08/21 07/07/21 05:00 07:45 05:10 BUN 19 17 20 Creatinine 0.5 0.4 0.4 Estimated GFR (MDRD) 119 154 154 07/06/21 07/05/21 07/05/21 05:10 19:01 05:31 BUN 24 H 23 H 20 Creatinine 0.5 0.5 0.5 Estimated GFR (MDRD) 119 119 119 07/04/21 07/04/21 07/03/21 04:43 04:43 07:30 BUN 21 H 21 H 23 H Creatinine 0.6 0.5 0.6 Estimated GFR (MDRD) 96 119 96 07/02/21 07/01/21 06/30/21 04:42 06:50 04:50 BUN 26 H 27 H 28 H Creatinine 0.7 0.7 0.8 Estimated GFR (MDRD) 81 L 81 L 69 L 06/29/21 06/28/21 06/27/21 04:42 05:00 04:20 BUN 31 H 34 H 32 H Creatinine 1.0 1.4 H 1.3 H Estimated GFR (MDRD) 53 L 36 L 40 L 06/26/21 14:26 BUN 32 H Creatinine 1.3 H Estimated GFR (MDRD) 40 L Cultures 06/26/21 20:05 Peritoneal Fluid Anaerobic Culture - Final 06/26/21 20:05 Peritoneal Fluid Body Fluid Culture - Final 06/26/21 22:51 Urine,Clean Catch Urine Culture - Final No growth Monitoring plan: Daily serum creatinine, Suggest ongoing fluid replacement Next trough due (date/time): 07/11/21 at 15:30 Areas for additional monitoring: Therapy de-escalation based on culture results, Acute Kidney Injury Pharmacy recommendation: Continue current regime (Loading dose of 2 gm followed by maintenance dose of 1.5 gm IV q12h for estimated trough of ~ 16 mcg/mL; trough ordered for when pharmacy on site and patient closer to steady state)
[2021-07-09] MEDS: GLYCOPYRROLATE 1 MG/5 ML VIAL SUBQ PRN (15:48)
[2021-07-09] MEDS: TPN (CLINIMIX E 5/15) 2,000 ML with MULTIVITAMIN 10 ML, TRACE ELEMENTS 1 ML IV SCH ×3 (18:41)
[2021-07-09] MEDS: FAT EMUL/SOY/MCT/OLIV/FISH OIL 50 GM/250 ML BAG IV SCH (18:46)
[2021-07-10] MEDS: HYDROmorphone 0.5 MG/0.5 ML SYRINGE IVP PRN ×3 (00:03→22:43)
[2021-07-10] MEDS: LORazepam 2 MG/ML VIAL IVP PRN ×5 (00:03→21:37)
[2021-07-10] MEDS: SODIUM CHLORIDE FLUSH 0.9% 10 ML SYRINGE IVP SCH ×4 (00:04→22:43)
[2021-07-10] MEDS: metroNIDAZOLE 500 MG/100 ML 500 MG/100 ML BAG IV SCH (00:42)
[2021-07-10] MEDS: VANCOMYCIN INJ 1 GM, VANCOMYCIN INJ 500 MG in SODIUM CHLORIDE 0.9% 500 ML IV SCH ×2 (03:57→17:00)
[2021-07-10] MEDS: SODIUM CHLORIDE FLUSH 0.9% 10 ML SYRINGE IVP PRN ×4 (04:27→21:12)
[2021-07-10 05:16] LABS: BASOPHILS # (AUTO) 0.1 10^3/uL (0.0-0.1); BASOPHILS % (AUTO) 0.7 %; EOSINOPHILS # (AUTO) 0.5 10^3/uL (0.0-0.7); EOSINOPHILS % (AUTO) 5.7 %; HCT - HEMATOCRIT 28.6 % (37.0-47.0); HGB - HEMOGLOBIN 8.6 g/dL (12.0-16.0); LYMPHOCYTES # (AUTO) 1.1 10^3/uL (1.5-3.5); LYMPHOCYTES % (AUTO) 12.6 %; MEAN CORPUSCULAR HGB CONC 30.1 g/dL (32.0-36.0); MEAN CORPUSCULAR VOLUME 96.3 fL (81.0-99.0); MEAN PLATELET VOLUME 10.6 fL (7.9-10.8); MONOCYTES # (AUTO) 0.6 10^3/uL (0.0-1.0); MONOCYTES % (AUTO) 6.8 %; NEUTROPHILS # (AUTO) 6.2 10^3/uL (1.5-6.6); NEUTROPHILS % (AUTO) 71.3 %; NRBC ABSOLUTE COUNT (AUTO) 0.03 x10^3/uL; NUCLEATED RED BLOOD CELLS AUTO 0.3 /100WBC; PLT - PLATELET COUNT 520 10^3/uL (130-450); RED BLOOD COUNT 2.97 10^6/uL (4.20-5.40); RED CELL DISTRIBUTION WIDTH 21.2 % (12.0-15.0); WHITE BLOOD COUNT 8.7 x10^3/uL (4.8-10.8)
[2021-07-10 05:24] LABS: SLIDE REVIEW? Indicated
[2021-07-10 05:25] LABS: CALCIUM 7.9 mg/dL (8.5-10.3); CREATININE 0.4 mg/dL (0.4-1.0); POTASSIUM 3.5 mmol/L (3.5-5.0)
[2021-07-10 05:45] LABS: PLATELET ESTIMATE, MANUAL INCREASED (>450,000) (NORMAL)
[2021-07-10] MEDS: PANTOPRAZOLE 40 MG VIAL IVP SCH (06:15)
--- NOTE | 2021-07-10 08:14 | PROVIDER PROGRESS NOTE ---
Subjective - Prog Note Date Prog Note Date: 07/10/21 Prog Note Time: 08:07 - Subjective Subjective: slight down turn yesterday. summarized in A/P Current Medications - Current Medications Current Medications: Active Medications Benzocaine/Butamben/Tetracaine HCl (Benzocaine/Tetracaine/Butamben 20 Gm) 1 sprays MM DAILY PRN PRN Reason: Throat Pain Chlorhexidine Gluconate (Chlorhexidine Gluconate 15 Ml Udc) 15 ml PO BID [facility] Last Admin: 07/09/21 21:04 Dose: 15 ml Documented by: Enoxaparin Sodium (Enoxaparin 40 Mg/0.4 Ml Syringe) 40 mg SUBQ DAILY [facility] Last Admin: 07/09/21 09:52 Dose: 40 mg Documented by: Furosemide (Furosemide 20 Mg/2 Ml Vial) 20 mg IVP BID [facility] Last Admin: 07/09/21 21:04 Dose: 20 mg Documented by: Glycopyrrolate (Glycopyrrolate 1 Mg/5 Ml Vial) 0.2 mg SUBQ Q6H PRN PRN Reason: Excessive Secretions Last Admin: 07/09/21 15:48 Dose: 0.2 mg Documented by: Hydromorphone HCl (Hydromorphone 0.5 Mg/0.5 Ml Syringe) 0.5 mg IVP Q3H PRN PRN Reason: PAIN Last Admin: 07/10/21 00:03 Dose: 0.5 mg Documented by: Norepinephrine Bitartrate 8 mg (/ Dextrose) 250 mls @ 15 mls/hr IV .[id number] [facility]; Protocol Last Admin: 07/10/21 05:41 Dose: Not Given Documented by: Sodium Chloride (Normal Saline 0.9%) 500 mls @ 20 mls/hr IV Q24H PRN PRN Reason: TKO RATE Last Infusion: 06/30/21 19:27 Dose: Infused Documented by: Multivitamins 10 ml/ TRACE ELEMENTS 1 ml/ Amino Ac/Electrol/Dextrose/Calcium 2,011 mls @ 75 mls/hr IV Q24H [facility]; Protocol Last Admin: 07/09/21 18:41 Dose: 75 mls/hr Documented by: Cefepime HCl 2 gm/ Sodium (Chloride) 100 mls @ 200 mls/hr IV BID [facility] Last Infusion: 07/09/21 22:22 Dose: Infused Documented by: Fat Emulsion-Soy/MCT/[place]/Fish Oil (Smoflipid 20% Iv Fat Emulsion) 50 gm in 250 mls @ 21 mls/hr IV 1900 [facility] Last Admin: 07/09/21 18:46 Dose: 21 mls/hr Documented by: Levofloxacin (Levaquin 750 Mg/150 Ml) 750 mg in 150 mls @ 100 mls/hr IV Q24H [facility] Last Infusion: 07/09/21 19:30 Dose: Infused Documented by: Vancomycin HCl 1 gm/Vancomycin HCl 500 mg/ Sodium Chloride 500 mls @ 250 mls/hr IV Q12H [facility] Last Infusion: 07/10/21 06:37 Dose: Infused Documented by: Lorazepam (Lorazepam 2 Mg/Ml Vial) 0.5 mg IVP Q1H PRN PRN Reason: Anxiety Last Admin: 07/10/21 01:12 Dose: 0.5 mg Documented by: Metoclopramide HCl (Metoclopramide 10 Mg/2 Ml Vial) 5 mg IVP Q6HR PRN PRN Reason: Nausea / Vomiting Midazolam HCl (Midazolam 2 Mg/2 Ml Vial) 2 mg IVP Q2H PRN PRN Reason: Agitation Last Admin: 07/04/21 00:23 Dose: 2 mg Documented by: Mineral Oil (Min Oil/Dimethicon/Coconut Oil 92 Gm Tube) 1 applic TOP PRN PRN PRN Reason: Skin Care Last Admin: 07/06/21 20:24 Dose: 1 ea Documented by: Ondansetron HCl (Ondansetron 4 Mg/2 Ml Vial) 4 mg IVP Q6H PRN PRN Reason: Nausea / Vomiting Pantoprazole Sodium (Pantoprazole 40 Mg Vial) 40 mg IVP QDAC [facility] Last Admin: 07/10/21 06:15 Dose: 40 mg Documented by: Phenol/Menthol (Phenol Throat [place] 177 Ml) 2 sprays MM Q2HR PRN PRN Reason: Throat Pain Last Admin: 07/07/21 11:03 Dose: 2 sprays Documented by: Scopolamine HBr (Scopolamine Patch) 1 patch TOP Q3D [facility] Last Admin: 07/09/21 12:54 Dose: 1 patch Documented by: Sodium Chloride (Sodium Chloride Flush 0.9% 10 Ml Syringe) 10 ml IVP 0100,0900,1700 [facility] Last Admin: 07/10/21 00:04 Dose: 10 ml Documented by: Sodium Chloride (Sodium Chloride Flush 0.9% 10 Ml Syringe) 10 ml IVP PRN PRN PRN Reason: NEEDED PER PROVIDER ORDERS Last Admin: 07/10/21 06:15 Dose: 10 ml Documented by: Sodium Chloride (Sodium Chloride Flush 0.9% 10 Ml Syringe) 20 ml IVP PRN PRN PRN Reason: After Blood Draw Last Admin: 07/10/21 04:27 Dose: 20 ml Documented by: Levothyroxine [Synthroid] 75 mcg PO QDAC 07/22/19 Simvastatin [Zocor] 20 mg PO QPM 07/22/19 Torsemide 40 mg PO DAILY 07/22/19 Potassium Chloride 10 meq PO DAILY 01/11/20 EPINEPHrine [Epipen Jr] 0.3 mg IM ONCE PRN 04/12/20 traZODone [Desyrel] 200 mg PO QPM 04/12/20 Meloxicam [Mobic] 7.5 mg PO BID 10/21/20 QUEtiapine [SEROquel] 100 mg PO BID 10/21/20 Objective - Vital Signs/Intake & Output Reviewed Vital Signs: Yes Vital Signs: Vital Signs x48h Temp Pulse Resp BP Pulse Ox 07/10/21 07:00 77 19 128/56 L 97 07/10/21 06:00 76 15 108/48 L 96 07/10/21 05:00 74 13 117/57 L 95 07/10/21 04:00 37.0 C 73 16 128/81 H 96 07/10/21 03:00 71 18 132/58 H 92 07/10/21 02:00 80 21 126/65 96 07/10/21 01:00 87 24 118/51 L 97 Intake & Output: Intake & Output 07/07/21 07/08/21 07/09/21 07/10/21 23:59 23:59 23:59 23:59 Intake Total 2640.217 2966.25 3533.75 600 Output Total 4875 3738 3927 990 Balance -2234.783 -771.75 -393.25 -390 - Objective General Appearance: positive: Mild distress, Other (eyes open and she follows me and nurses as we speak, follows commands w movement of arms, legs but she wants to pull at IV and lines) Eyes Bilateral: positive: PERRL, EOMI ENT: positive: No signs of dehydration Neck: positive: No JVD. negative: Stiff neck Respiratory: positive: Rhonchi (diffusely), Other (copious copious secretions. no use of accessory muscles. no cough unless we suction secretions) Cardiovascular: positive: Regular rate & rhythm. negative: Gallop/S4, Friction rub Abdomen: positive: Tenderness (possible. she grimaces and tries to grab my hand w exam but soft, one bowel sound. NG in place) Skin: positive: Warm, Dry, Pallor Extremities: positive: Pedal edema (of large large feet. SCD in place) Neurologic/Psychiatric: positive: Other (she responds to voice and commands. nonverbal. grunts and grimaces. moves her arms purposefully to grab at things. moves legs to get more comfortable. right eye deviation lateral and chronic, garbles speech, moans) - Lab Results Fish Bones: 07/10/21 04:25 07/10/21 04:25 Other Labs: Lab Results x24hrs 07/10/21 07/10/21 07/10/21 Range/Units 06:12 04:25 04:25 WBC 8.7 (4.8-10.8) x10^3/uL RBC 2.97 L (4.20-5.40) 10^6/uL Hgb 8.6 L (12.0-16.0) g/dL Hct 28.6 L (37.0-47.0) % MCV 96.3 (81.0-99.0) fL MCH 29.0 (27.0-31.0) pg MCHC 30.1 L (32.0-36.0) g/dL RDW 21.2 H (12.0-15.0) % Plt Count 520 H (130-450) 10^3/uL MPV 10.6 (7.9-10.8) fL Neut # (Auto) 6.2 (1.5-6.6) 10^3/uL Lymph # (Auto) 1.1 L (1.5-3.5) 10^3/uL Piatt # (Auto) 0.6 (0.0-1.0) 10^3/uL Eos # (Auto) 0.5 (0.0-0.7) 10^3/uL Baso # (Auto) 0.1 (0.0-0.1) 10^3/uL Absolute Nucleated RBC 0.03 x10^3/uL Nucleated RBC % 0.3 /100WBC Manual Slide Review Indicated Platelet Estimate INCREASED (>450,000) (NORMAL) RBC Morph Micro Appear 1+ POLYCHROMASIA (NORMAL) Bld Gas Analysis Time Sample Site ABG pH (7.35-7.45) ABG pCO2 (34-45) mmHg ABG pO2 (80-100) mmHg ABG HCO3 (22.0-26.0) mmol/L ABG Total CO2 (21.0-29.0) MMOL/L ABG O2 Saturation (94-98) % ABG Base Excess (-2.0-3.0) mmol/L Ruperto Test O2 Delivery Device O2 Liters/Min LPM Sodium 140 (135-145) mmol/L Potassium 3.5 (3.5-5.0) mmol/L Chloride 102 (101-111) mmol/L Carbon Dioxide 33 H (21-32) mmol/L Anion Gap 5.0 L (6-13) BUN 20 (6-20) mg/dL Creatinine 0.4 (0.4-1.0) mg/dL Estimated GFR (MDRD) 154 (>89) Glucose 140 H (70-100) mg/dL POC Whole Bld Glucose 141 H (70 - 100) mg/dL Calcium 7.9 L (8.5-10.3) mg/dL 07/09/21 07/09/21 07/09/21 Range/Units 23:50 18:22 14:25 WBC (4.8-10.8) x10^3/uL RBC (4.20-5.40) 10^6/uL Hgb (12.0-16.0) g/dL Hct (37.0-47.0) % MCV (81.0-99.0) fL MCH (27.0-31.0) pg MCHC (32.0-36.0) g/dL RDW (12.0-15.0) % Plt Count (130-450) 10^3/uL MPV (7.9-10.8) fL Neut # (Auto) (1.5-6.6) 10^3/uL Lymph # (Auto) (1.5-3.5) 10^3/uL Piatt # (Auto) (0.0-1.0) 10^3/uL Eos # (Auto) (0.0-0.7) 10^3/uL Baso # (Auto) (0.0-0.1) 10^3/uL Absolute Nucleated RBC x10^3/uL Nucleated RBC % /100WBC Manual Slide Review Platelet Estimate (NORMAL) RBC Morph Micro Appear (NORMAL) Bld Gas Analysis Time 1436 Sample Site RIGHT RADIAL ABG pH 7.35 (7.35-7.45) ABG pCO2 55 H (34-45) mmHg ABG pO2 83 (80-100) mmHg ABG HCO3 29.9 H (22.0-26.0) mmol/L ABG Total CO2 31.6 H (21.0-29.0) MMOL/L ABG O2 Saturation 95 (94-98) % ABG Base Excess 3.4 H (-2.0-3.0) mmol/L Ruperto Test POSITIVE O2 Delivery Device NON REBREATHER MASK O2 Liters/Min 15.00 LPM Sodium (135-145) mmol/L Potassium (3.5-5.0) mmol/L Chloride (101-111) mmol/L Carbon Dioxide (21-32) mmol/L Anion Gap (6-13) BUN (6-20) mg/dL Creatinine (0.4-1.0) mg/dL Estimated GFR (MDRD) (>89) Glucose (70-100) mg/dL POC Whole Bld Glucose 128 H 119 H (70 - 100) mg/dL Calcium (8.5-10.3) mg/dL 07/09/21 Range/Units 12:17 WBC (4.8-10.8) x10^3/uL RBC (4.20-5.40) 10^6/uL Hgb (12.0-16.0) g/dL Hct (37.0-47.0) % MCV (81.0-99.0) fL MCH (27.0-31.0) pg MCHC (32.0-36.0) g/dL RDW (12.0-15.0) % Plt Count (130-450) 10^3/uL MPV (7.9-10.8) fL Neut # (Auto) (1.5-6.6) 10^3/uL Lymph # (Auto) (1.5-3.5) 10^3/uL Piatt # (Auto) (0.0-1.0) 10^3/uL Eos # (Auto) (0.0-0.7) 10^3/uL Baso # (Auto) (0.0-0.1) 10^3/uL Absolute Nucleated RBC x10^3/uL Nucleated RBC % /100WBC Manual Slide Review Platelet Estimate (NORMAL) RBC Morph Micro Appear (NORMAL) Bld Gas Analysis Time Sample Site ABG pH (7.35-7.45) ABG pCO2 (34-45) mmHg ABG pO2 (80-100) mmHg ABG HCO3 (22.0-26.0) mmol/L ABG Total CO2 (21.0-29.0) MMOL/L ABG O2 Saturation (94-98) % ABG Base Excess (-2.0-3.0) mmol/L Ruperto Test O2 Delivery Device O2 Liters/Min LPM Sodium (135-145) mmol/L Potassium (3.5-5.0) mmol/L Chloride (101-111) mmol/L Carbon Dioxide (21-32) mmol/L Anion Gap (6-13) BUN (6-20) mg/dL Creatinine (0.4-1.0) mg/dL Estimated GFR (MDRD) (>89) Glucose (70-100) mg/dL POC Whole Bld Glucose 142 H (70 - 100) mg/dL Calcium (8.5-10.3) mg/dL ABX Reporting Has patient been on IV antibiotics over the past 48 hours?: Yes Sepsis Event Note (H) - Evaluation Current Stage of Sepsis: Septic shock Possible source of Sepsis: positive: GI tract/intra-abdominal - Sepsis Criteria Sepsis Criteria: WBC count greater than 10% bands, SBP drop more than 40mHg, MAP less than 65 mmHg, SBP less than 90 mmHg, Renal: urine output less than 0.5ml/kg/hr for 2 hours or creatinine gr, Metabolic: lactate > 2 mmol/L Assessment/Plan - Problem List (1) Hospital-acquired pneumonia Impression: Yesterday she had a sudden drop in oxygen sats. She has had copious secretions even when she was intubated. Long strings of phlegm were being produced around the ET tube. Since extubation she has struggled w weak cough, and continued secretions. Yesterday had the sudden drop. Required increased 02. ABG confirmed mild hypercapnea with the hypoxia. The CXR confirmed worsening LLL pneumonia. I added Vancomycin and Levaquin to her Cefipime and surgery was ok w stopping the flagyll and diflucan. BiPap used for a short time but she was miserable w the mask leaking around the NG and the lack of fit around her chin. It worked but with the struggle I stopped it and tolerating Robinul is being used but not frequently. Night RN didn't use it. She is stable this am. Going up and down on 02 requirement from 2-4 and back down. still w secretions. Plan: emphasize secretion clearance Day #2 abx nebs return to BiPAP prn. She does have episodes of apnea w snoring but 02 sats maintained Anasarca Due to severe protein calorie malnutrition and fluid overload Assessment/Plan: grossly overloaded still from iatrogenic ivf given in periop period -continue diuresis with daily lasix 20mg iv qd increase to bid 07/07, July 06 she was -1200 cc. July 07 -4 cc. July 08 -771 . July 09 -393. monitor UOP, I will increase lasix to 40 in am and 20 in pm. Watch creat to make sure I don't put her behind. Perforated duodenal ulcer, Status post direct repair Servando Pyloroplasty, Gram Patch Assessment/Plan: s/p exploratory laparotomy with repair of posteriorly perforated duodenal ulcer on 06/26 by , course c/b septic shock, prolonged respiratory failure on vent, s/p extubated on 07/05. -Gastrografin challenge 07/09 was consistent with gastric outlet obstruction. Dr. Dobson hopes that this will resolve with conservative management.This may take an extended period of time to resolve. Some literature states as long as 6 weeks. -Leave NG tube in place and suction. Stop all meds thru NG. Given enemas from below / to try and get things moving. Surgeon would also like low-dose Reglan added. Continue TPN for now via RIJ CVC(06/26-) Given mentation, pt likely needs modality for buttermaker helper feeding, will ask for inserting PICC line for TPN today, would discontinue RIJ cvc, to reduce risks of infection. At this time surgery has decided to wait before pursuing further surgical intervention. Will continue to monitor patients progress and reassess. Iron deficiency anemia Assessment/Plan: Started Iron 07/04, h/h slowly trending down wo signs of active bleeding, as per surgery, wound looks good without hematoma. plt count stable despite dvt ppx with LMWH, -h/h stable today, target hgb>7, transfuse as needed, -h/h seems to be trending up. Today and yesterday hgb at 8.6. Ileus following gastrointestinal surgery Assessment/Plan: Reviewed abd xray Ileus seen Patient has received lactulose via NGT, but it does not appear to be helping per surgeon.Started low-dose Reglan 07/10 Chronic, stable, resolved, Acute encephalopathy resolved Impression: pt still follows minimal commands, still lethargic since off on sedation in 07/07 AM but she does respond more and more, reportedly pt has poor cognitive function at baseline. -will continue to monitor mental status, consider starting PT eval for dispo once pt is more lucid. Acute peritonitis Resolved s/p perforated DU. Peritoneal fluid culture on 06/26 ngtd. BCX not available. shock resolved, off on vasopressor 07/07 AM. -completed cefipime, flagyl and diflucan per General Surgery and per note they were ok with change for HAP. Hypothyroidism Qualifiers: Hypothyroidism type: acquired Qualified Code(s): E03.9 - Hypothyroidism, unspecified Assessment/Plan: Continue synthroid Schizophrenia Qualifiers: Schizophrenia type: schizophreniform disorder Qualified Code(s): F20.81 - Schizophreniform disorder Assessment/Plan: Stable Continue seroqeul Acute respiratory failure requiring reintubation, RESOLVED, Intubated since postop, w/o clear source evidence of PNA, Extubated on 07/05, o2 demand continue to go down, ddx: pulmonary edema, possibly iatrogenic ivf given in periop period, CHF. CXR today 07/08 suggestive of worsening CHF. pt remained stable on RA since 07/06- Septic shock, RESOLVED secondary to presumed intraabdominal infection s/p perforated DU. Peritoneal fluid culture on 06/26 ngtd. BCX not available. shock resolved, off on vasopressor 1010 AM.
[2021-07-10] MEDS: ENOXAPARIN 40 MG/0.4 ML SYRINGE SUBQ SCH (08:41)
[2021-07-10] MEDS: FUROSEMIDE 20 MG/2 ML VIAL IVP SCH ×2 (08:42→20:54)
[2021-07-10] MEDS: CEFEPIME 2 GM in SODIUM CHLORIDE 0.9% MINIBAG 100 ML IV SCH ×2 (08:42→20:54)
[2021-07-10] MEDS: CHLORHEXIDINE GLUCONATE 15 ML UDC PO SCH ×2 (08:54→20:54)
[2021-07-10] MEDS: GLYCOPYRROLATE 1 MG/5 ML VIAL SUBQ PRN ×2 (08:54→20:54)
[2021-07-10] MEDS ORDERED: METOPROLOL 5 MG/5 ML VIAL IVP SCH (10:30)
[2021-07-10] MEDS ORDERED: RACEPINEPHRINE 2.25% NEB INH ONE (10:45)
--- NOTE | 2021-07-10 10:54 | XRAY Report ---
PROCEDURE: Chest for Line Placement INDICATIONS: PICC LINE AND NG TUBE PLACEMENT TECHNIQUE: One view of the chest was acquired. COMPARISON: July 09, 2021 FINDINGS: Surgical changes and devices: Redemonstrated left cardiac device, enteric tube, and right IJ catheter . Interval placement of a right PICC line with tip projecting over the mid SVC region. Lungs and pleura: Low lung volumes are prominence of the bronchovascular markings. Increased intersti tial markings. No pneumothorax. Mediastinum: Calcified atheromatous change of the aorta. The cardiac silhouette is mildly enlarged, p artially exaggerated by technique. Bones and chest wall: No suspicious bony lesions. Overlying soft tissues appear unremarkable. IMPRESSION: Support devices as detailed above. Reviewed by: Bonifacio Worley MD on 07/10/2021 10:52 AM PDT Approved by: Bonifacio Worley MD on 07/10/2021 10:52 AM PDT Station ID: [id number]
[2021-07-10] MEDS ORDERED: MIDAZOLAM 2 MG/2 ML VIAL ONE (10:59)
[2021-07-10] MEDS ORDERED: KETAMINE 500 MG/10 ML VIAL ONE (10:59)
[2021-07-10] MEDS ORDERED: DEXMEDETOMIDINE 400 MCG/100 ML 100 ML IV SCH (11:00)
[2021-07-10] MEDS ORDERED: PHENYLEPHRINE 10 MG/ML VIAL ONE (11:32)
[2021-07-10] MEDS ORDERED: PROPOFOL 200 MG/20 ML VIAL IVP ONE (11:32)
[2021-07-10] MEDS ORDERED: ROCURONIUM 50 MG/5 ML VIAL ONE (11:32)
[2021-07-10] MEDS ORDERED: ePHEDrine 50 MG/ML VIAL IVP ONE (11:32)
--- NOTE | 2021-07-10 11:32 | XRAY Report ---
PROCEDURE: Chest for Line Placement INDICATIONS: Ett tube placement TECHNIQUE: One view of the chest was acquired. COMPARISON: Same day at 10:09 AM FINDINGS: Surgical changes and devices: ET tube tip is seen at the level of sosa. Left chest wall pacemaker l joaquin are in the region of right atrium and right ventricle. Enteric tube tip is below the left hemidi aphragm. Right-sided PICC line tip is in SVC.. Lungs and pleura: Right greater than left bilateral pleural effusion and bibasilar infiltrate/atelect asis are seen. Pulmonary edema is also noted. No gross pneumothorax. There is interval worsening of r ight apical aeration with suggestion of right apical atelectasis. Mediastinum: Mediastinal contours appear normal. Heart size is normal. Bones and chest wall: No suspicious bony lesions. Overlying soft tissues appear unremarkable. IMPRESSION: ET tube tip is at the level of sosa. Right greater than left bilateral pleural effusion and pulmonary edema. Underlying bilateral scattere d pulmonary infiltrates cannot be excluded. No gross pneumothorax. Suggestion of worsening right apic al consolidation/atelectasis. Reviewed by: Min Shah MD on 07/10/2021 11:31 AM PDT Approved by: Min Shah MD on 07/10/2021 11:31 AM PDT Station ID: [id number]
--- NOTE | 2021-07-10 11:45 | ANESTHESIA PROCEDURE NOTE ---
Anesth Central Line Template - Central Line Central Line Preparation: Unable to obtain consent Central line location: Right Basilic Central line type: PICC Double Lumen Central line catheter tip site resides: Superior vena cava (SVC) Central line aftercare: Secured, Placement confirmed, No pneumothorax, No complications, Bundle checklist complete, Pt tolerated well
--- NOTE | 2021-07-10 11:48 | ANESTHESIA PROCEDURE NOTE ---
Anesthesia Intubation Template - Intubation Blade: positive: Glidescope Tube: Size-enter number (7.5), Marked at teeth-enter cm (21) Route: Oral Placement Confirmation: End tidal CO2, Direct visualization, Bilateral breath sounds Complications: No complications
[2021-07-10 12:21] LABS: ABG PCO2 40 mmHg (34-45); ABG PH 7.46 (7.35-7.45); ABG TCO2 29.2 MMOL/L (21.0-29.0)
[2021-07-10 12:22] LABS: ABG MODE OF VENTILATION VC; ABG OXYGEN SATURATION 100 % (94-98); ALLEN TEST POSITIVE
[2021-07-10] MEDS: DEXMEDETOMIDINE 400 MCG in SODIUM CHLORIDE 0.9% 100ML 96 ML IV PRN ×4 (12:22→22:09)
[2021-07-10 12:23] LABS: ABG PO2 296 mmHg (80-100); ABG RESPIRATORY RATE 20 b/min
[2021-07-10] MEDS: levoFLOXacin 750 MG/150 ML 750 MG/150 ML BAG IV SCH (15:25)
--- NOTE | 2021-07-10 18:03 | PROVIDER PROGRESS NOTE ---
Subjective - General Admit Date: 06/26/21 Procedure Date: 06/26/21 Post Op Days: 14 Procedure Performed: Exploratory laparotomy with repair of posterior duodenal ulcer - Review of Systems Wound/Incisions: positive: Healing well Drain Type: 19 [place] Tanner Drain Output Description: Serosanguineous - Other Other Information/Narrative: Felisha continues to do poorly but she is somewhat improved since intubation. Appears more comfortable.Her NG tube is still making bilious fluid but the volume has decreased. Only 50 cc over the last 12 hours which is an encouraging sign.She had one oral retention enema yesterday and there were no results from the enema not even the fluid that was placed in the abdomen returned.White count dropped today as well into the normal range. Objective - Patient Data Reviewed Vital Signs: Yes Vital Signs: Vital Signs x48h Temp Pulse Pulse Resp BP Pulse Ox 07/10/21 17:15 81 07/10/21 17:00 86 20 110/54 L 100 07/10/21 16:00 82 20 113/48 L 100 07/10/21 15:35 80 07/10/21 15:00 36.4 C L 75 20 105/58 L 100 07/10/21 14:00 76 20 102/57 L 100 07/10/21 13:44 80 07/10/21 13:30 112/65 07/10/21 13:15 78/47 L 07/10/21 13:00 77 20 73/45 L 99 07/10/21 12:34 100 07/10/21 12:30 88 14 07/10/21 12:00 93 20 114/81 H 100 07/10/21 11:00 103 H 22 135/68 H 96 Weight: Weight 07/08/21 07/09/21 07/10/21 23:59 23:59 23:59 Weight (kg) 90.5 kg 88.5 kg 86.5 kg Intake & Output: Intake and Output Totals x24h 07/08/21 07/09/21 07/10/21 23:59 23:59 23:59 Intake Total 2966.25 3533.75 909.903 Output Total 3738 3927 1443 Balance -771.75 -393.25 -533.097 - Lab Results Lab Results: 07/10/21 04:25 07/10/21 04:25 Other Lab Results: Lab Results x24hrs 07/10/21 07/10/21 07/10/21 Range/Units 17:38 13:05 12:10 WBC (4.8-10.8) x10^3/uL RBC (4.20-5.40) 10^6/uL Hgb (12.0-16.0) g/dL Hct (37.0-47.0) % MCV (81.0-99.0) fL MCH (27.0-31.0) pg MCHC (32.0-36.0) g/dL RDW (12.0-15.0) % Plt Count (130-450) 10^3/uL MPV (7.9-10.8) fL Neut # (Auto) (1.5-6.6) 10^3/uL Lymph # (Auto) (1.5-3.5) 10^3/uL [place] # (Auto) (0.0-1.0) 10^3/uL Eos # (Auto) (0.0-0.7) 10^3/uL Baso # (Auto) (0.0-0.1) 10^3/uL Absolute Nucleated RBC x10^3/uL Nucleated RBC % /100WBC Manual Slide Review Platelet Estimate (NORMAL) RBC Morph Micro Appear (NORMAL) Bld Gas Analysis Time 1220 Sample Site LRAD ABG pH 7.46 H (7.35-7.45) ABG pCO2 40 (34-45) mmHg ABG pO2 296 H* (80-100) mmHg ABG HCO3 28.0 H (22.0-26.0) mmol/L ABG Total CO2 29.2 H (21.0-29.0) MMOL/L ABG O2 Saturation 100 H (94-98) % ABG Base Excess 4.0 H (-2.0-3.0) mmol/L Ruperto Test POSITIVE Respiration Rate 20 b/min O2 Delivery Device VENTILATOR Vent Mode VC FiO2 100.00 Tidal Volume 450 mL PEEP 3 cmH2O Sodium (135-145) mmol/L Potassium (3.5-5.0) mmol/L Chloride (101-111) mmol/L Carbon Dioxide (21-32) mmol/L Anion Gap (6-13) BUN (6-20) mg/dL Creatinine (0.4-1.0) mg/dL Estimated GFR (MDRD) (>89) Glucose (70-100) mg/dL POC Whole Bld Glucose 160 H 204 H (70 - 100) mg/dL Calcium (8.5-10.3) mg/dL 07/10/21 07/10/21 07/10/21 Range/Units 06:12 04:25 04:25 WBC 8.7 (4.8-10.8) x10^3/uL RBC 2.97 L (4.20-5.40) 10^6/uL Hgb 8.6 L (12.0-16.0) g/dL Hct 28.6 L (37.0-47.0) % MCV 96.3 (81.0-99.0) fL MCH 29.0 (27.0-31.0) pg MCHC 30.1 L (32.0-36.0) g/dL RDW 21.2 H (12.0-15.0) % Plt Count 520 H (130-450) 10^3/uL MPV 10.6 (7.9-10.8) fL Neut # (Auto) 6.2 (1.5-6.6) 10^3/uL Lymph # (Auto) 1.1 L (1.5-3.5) 10^3/uL [place] # (Auto) 0.6 (0.0-1.0) 10^3/uL Eos # (Auto) 0.5 (0.0-0.7) 10^3/uL Baso # (Auto) 0.1 (0.0-0.1) 10^3/uL Absolute Nucleated RBC 0.03 x10^3/uL Nucleated RBC % 0.3 /100WBC Manual Slide Review Indicated Platelet Estimate INCREASED (>450,000) (NORMAL) RBC Morph Micro Appear 1+ POLYCHROMASIA (NORMAL) Bld Gas Analysis Time Sample Site ABG pH (7.35-7.45) ABG pCO2 (34-45) mmHg ABG pO2 (80-100) mmHg ABG HCO3 (22.0-26.0) mmol/L ABG Total CO2 (21.0-29.0) MMOL/L ABG O2 Saturation (94-98) % ABG Base Excess (-2.0-3.0) mmol/L Ruperto Test Respiration Rate b/min O2 Delivery Device Vent Mode FiO2 Tidal Volume mL PEEP cmH2O Sodium 140 (135-145) mmol/L Potassium 3.5 (3.5-5.0) mmol/L Chloride 102 (101-111) mmol/L Carbon Dioxide 33 H (21-32) mmol/L Anion Gap 5.0 L (6-13) BUN 20 (6-20) mg/dL Creatinine 0.4 (0.4-1.0) mg/dL Estimated GFR (MDRD) 154 (>89) Glucose 140 H (70-100) mg/dL POC Whole Bld Glucose 141 H (70 - 100) mg/dL Calcium 7.9 L (8.5-10.3) mg/dL 07/09/21 07/09/21 Range/Units 23:50 18:22 WBC (4.8-10.8) x10^3/uL RBC (4.20-5.40) 10^6/uL Hgb (12.0-16.0) g/dL Hct (37.0-47.0) % MCV (81.0-99.0) fL MCH (27.0-31.0) pg MCHC (32.0-36.0) g/dL RDW (12.0-15.0) % Plt Count (130-450) 10^3/uL MPV (7.9-10.8) fL Neut # (Auto) (1.5-6.6) 10^3/uL Lymph # (Auto) (1.5-3.5) 10^3/uL [place] # (Auto) (0.0-1.0) 10^3/uL Eos # (Auto) (0.0-0.7) 10^3/uL Baso # (Auto) (0.0-0.1) 10^3/uL Absolute Nucleated RBC x10^3/uL Nucleated RBC % /100WBC Manual Slide Review Platelet Estimate (NORMAL) RBC Morph Micro Appear (NORMAL) Bld Gas Analysis Time Sample Site ABG pH (7.35-7.45) ABG pCO2 (34-45) mmHg ABG pO2 (80-100) mmHg ABG HCO3 (22.0-26.0) mmol/L ABG Total CO2 (21.0-29.0) MMOL/L ABG O2 Saturation (94-98) % ABG Base Excess (-2.0-3.0) mmol/L Ruperto Test Respiration Rate b/min O2 Delivery Device Vent Mode FiO2 Tidal Volume mL PEEP cmH2O Sodium (135-145) mmol/L Potassium (3.5-5.0) mmol/L Chloride (101-111) mmol/L Carbon Dioxide (21-32) mmol/L Anion Gap (6-13) BUN (6-20) mg/dL Creatinine (0.4-1.0) mg/dL Estimated GFR (MDRD) (>89) Glucose (70-100) mg/dL POC Whole Bld Glucose 128 H 119 H (70 - 100) mg/dL Calcium (8.5-10.3) mg/dL - Imaging Results Radiology Imaging: positive: Final report received Imaging Results Comments: May be suggestive of worsening right pneumonia - Current Medications Current Medications: Current Medications Generic Name Dose Route Start Last Admin Trade Name Freq PRN Reason Stop Dose Admin Chlorhexidine Gluconate 15 ml 06/27/21 21:00 07/10/21 08:54 Chlorhexidine Gluconate 15 Ml Udc PO 15 ml BID JULIETA Administration Enoxaparin Sodium 40 mg 06/28/21 09:00 07/10/21 08:41 Enoxaparin 40 Mg/0.4 Ml Syringe SUBQ 40 mg DAILY JULIETA Administration Furosemide 20 mg 07/07/21 09:00 07/10/21 08:42 Furosemide 20 Mg/2 Ml Vial IVP 20 mg BID JULIETA Administration Glycopyrrolate 0.2 mg 06/28/21 21:17 07/10/21 08:54 Glycopyrrolate 1 Mg/5 Ml Vial SUBQ 0.2 mg Q6H PRN Administration Excessive Secretions Hydromorphone HCl 0.5 mg 07/06/21 22:57 07/10/21 12:55 Hydromorphone 0.5 Mg/0.5 Ml Syringe IVP 0.5 mg Q3H PRN Administration PAIN Sodium Chloride 500 mls @ 20 mls/hr 06/26/21 23:03 06/30/21 19:27 Normal Saline 0.9% IV Infused Q24H PRN Infusion TKO RATE Multivitamins 10 ml/ TRACE 2,011 mls @ 75 mls/hr 06/27/21 19:00 07/09/21 18:41 ELEMENTS 1 ml/ Amino Ac/ IV 75 mls/hr Electrol/Dextrose/Calcium Q24H JULIETA Administration Protocol Cefepime HCl 2 gm/ Sodium 100 mls @ 200 mls/hr 06/27/21 18:00 07/10/21 08:42 Chloride IV 100 mls/hr BID JULIETA Administration Fat Emulsion-Soy/MCT/[place]/Fish Oil 50 gm in 250 mls @ 21 mls/hr 07/05/21 19:00 07/10/21 09:03 Smoflipid 20% Iv Fat Emulsion IV Infused 1900 JULIETA Infusion Levofloxacin 750 mg in 150 mls @ 100 mls/hr 07/09/21 15:00 07/10/21 15:25 Levaquin 750 Mg/150 Ml IV 100 mls/hr Q24H JULIETA Administration Vancomycin HCl 1 gm/ 500 mls @ 250 mls/hr 07/10/21 04:00 07/10/21 17:00 Vancomycin HCl 500 mg/ Sodium IV 250 mls/hr Chloride Q12H JULIETA Administration Norepinephrine Bitartrate 8 mg 250 mls @ 15 mls/hr 07/10/21 12:00 07/10/21 13:17 / Dextrose IV 4 mcg/min .[id number] JULIETA 7.5 mls/hr Administration Protocol 8 MCG/MIN Dexmedetomidine HCl 400 mcg/ 100 mls @ 4.325 mls/hr 07/10/21 11:20 07/10/21 15:32 Sodium Chloride IV 1.5 mcg/kg/hr .Q23H8M PRN 32.438 mls/hr Agitation Administration Protocol 0.2 MCG/KG/HR Lorazepam 0.5 mg 06/26/21 20:54 07/10/21 15:40 Lorazepam 2 Mg/Ml Vial IVP 0.5 mg Q1H PRN Administration Anxiety Mineral Oil 1 applic 07/01/21 01:24 07/06/21 20:24 Min Oil/Dimethicon/Coconut Oil 92 Gm Tube TOP 1 ea PRN PRN Administration Skin Care Pantoprazole Sodium 40 mg 06/27/21 07:00 07/10/21 06:15 Pantoprazole 40 Mg Vial IVP 40 mg QDAC JULIETA Administration Phenol/Menthol 2 sprays 07/05/21 21:24 07/07/21 11:03 Phenol Throat [place] 177 Ml MM 2 sprays Q2HR PRN Administration Throat Pain Scopolamine HBr 1 patch 07/03/21 11:00 07/09/21 12:54 Scopolamine Patch TOP 1 patch Q3D JULIETA Administration Sodium Chloride 10 ml 06/27/21 01:00 07/10/21 17:02 Sodium Chloride Flush 0.9% 10 Ml Syringe IVP 10 ml 0100,0900,1700 JULIETA Administration Sodium Chloride 10 ml 06/26/21 20:54 07/10/21 06:15 Sodium Chloride Flush 0.9% 10 Ml Syringe IVP 10 ml PRN PRN Administration NEEDED PER PROVIDER ORDERS Sodium Chloride 20 ml 06/26/21 23:03 07/10/21 04:27 Sodium Chloride Flush 0.9% 10 Ml Syringe IVP 20 ml PRN PRN Administration After Blood Draw - Physical Exam Wound/Incisions: positive: Healing well Abdomen: positive: Other (Few bowel tones. No tenderness is elicited with palpation. The midline incision is closed and without erythema.) ABX Reporting Has patient been on IV antibiotics over the past 48 hours?: Yes Impression/Plan - Problem List Problem List: Unfortunately, she continues to do poorly. The Gastrografin challenge was consistent with gastric outlet obstruction but her NG tube output is not supporting that.Perhaps she is improving.Will not make any significant changes today.We will consider repeating the Gastrografin challenge on Thursday if she continues to improve. Could certainly consider a repeat enema but will let her rest for the remainder of the day. Would like to be able to treat her constipation from above as well.
[2021-07-10] MEDS: FAT EMUL/SOY/MCT/OLIV/FISH OIL 50 GM/250 ML BAG IV SCH (18:59)
[2021-07-10] MEDS: TPN (CLINIMIX E 5/15) 2,000 ML with MULTIVITAMIN 10 ML, TRACE ELEMENTS 1 ML IV SCH ×3 (19:00)
[2021-07-10] MEDS: SODIUM CHLORIDE 0.9% 500 ML IV PRN (21:10)
[2021-07-11] MEDS: DEXMEDETOMIDINE 400 MCG in SODIUM CHLORIDE 0.9% 100ML 96 ML IV PRN ×7 (01:37→23:05)
[2021-07-11] MEDS: VANCOMYCIN INJ 1 GM, VANCOMYCIN INJ 500 MG in SODIUM CHLORIDE 0.9% 500 ML IV SCH (03:38)
[2021-07-11] MEDS: SODIUM CHLORIDE FLUSH 0.9% 10 ML SYRINGE IVP PRN ×5 (03:41→22:17)
[2021-07-11] MEDS: LORazepam 2 MG/ML VIAL IVP PRN ×3 (03:41→22:16)
[2021-07-11] MEDS: HYDROmorphone 0.5 MG/0.5 ML SYRINGE IVP PRN ×2 (05:27→20:29)
[2021-07-11 05:40] LABS: BASOPHILS % (AUTO) 0.7 %; HCT - HEMATOCRIT 26.8 % (37.0-47.0); HGB - HEMOGLOBIN 8.5 g/dL (12.0-16.0); LYMPHOCYTES % (AUTO) 21.7 %; MEAN CORPUSCULAR HEMOGLOBIN 30.1 pg (27.0-31.0); MEAN CORPUSCULAR HGB CONC 31.7 g/dL (32.0-36.0); MEAN PLATELET VOLUME 10.3 fL (7.9-10.8); MONOCYTES % (AUTO) 8.9 %; NEUTROPHILS % (AUTO) 59.6 %; PLT - PLATELET COUNT 313 10^3/uL (130-450); RED BLOOD COUNT 2.82 10^6/uL (4.20-5.40); RED CELL DISTRIBUTION WIDTH 22.1 % (12.0-15.0)
[2021-07-11 05:44] LABS: ABNORMAL LYMPHS % (MANUAL) 0 %
[2021-07-11 05:48] LABS: CREATININE 0.5 mg/dL (0.4-1.0); POTASSIUM 3.7 mmol/L (3.5-5.0)
[2021-07-11 06:29] LABS: BAND NEUTROPHILS % (MANUAL) 4 %; DIFFERENTIAL COMMENT MANUAL DIFFERENTIAL; EOSINOPHILS # (MANUAL) 0.1 10^3/uL (0-0.7); LYMPHOCYTES # (MANUAL) 0.7 10^3/uL (1.5-3.5); LYMPHOCYTES % (MANUAL) 12 %; METAMYELOCYTES % (MANUAL) 1 %; MONOCYTES # (MANUAL) 0.4 10^3/uL (0.0-1.0); MYELOCYTES % (MANUAL) 1 %; NEUTROPHILS # (MANUAL) 4.7 10^3/uL (1.5-6.6); PLATELET ESTIMATE, MANUAL NORMAL (130-450,000) (NORMAL)
[2021-07-11] MEDS: PANTOPRAZOLE 40 MG VIAL IVP SCH (06:34)
[2021-07-11] MEDS: SODIUM CHLORIDE FLUSH 0.9% 10 ML SYRINGE IVP SCH ×3 (06:35→17:20)
[2021-07-11 07:38] LABS: ABG BASE EXCESS 3.8 mmol/L (-2.0-3.0); ABG HCO3 25.6 mmol/L (22.0-26.0); ABG MODE OF VENTILATION ASSIST/CONTROL; ABG OXYGEN SATURATION 97 % (94-98); ABG PCO2 29 mmHg (34-45); ABG PH 7.57 (7.35-7.45); ABG PO2 90 mmHg (80-100); ABG RESPIRATORY RATE 20 b/min; ABG TCO2 26.5 MMOL/L (21.0-29.0); ALLEN TEST POSITIVE
--- NOTE | 2021-07-11 08:19 | PROVIDER PROGRESS NOTE ---
Subjective - Prog Note Date Prog Note Date: 07/11/21 Prog Note Time: 08:17 - Subjective Subjective: she had been reintubated yesterday bc of struggle to breath w apnea and copious secretions. Started guppy breathing after her PICC so electively intubated. Doing well and needing minimal support. Fi02 is 40%, and this am alkalotic. No new events. Current Medications - Current Medications Current Medications: Active Medications Benzocaine/Butamben/Tetracaine HCl (Benzocaine/Tetracaine/Butamben 20 Gm) 1 sprays MM DAILY PRN PRN Reason: Throat Pain Chlorhexidine Gluconate (Chlorhexidine Gluconate 15 Ml Udc) 15 ml PO BID [facility] Last Admin: 07/10/21 20:54 Dose: 15 ml Documented by: Enoxaparin Sodium (Enoxaparin 40 Mg/0.4 Ml Syringe) 40 mg SUBQ DAILY [facility] Last Admin: 07/10/21 08:41 Dose: 40 mg Documented by: Furosemide (Furosemide 20 Mg/2 Ml Vial) 20 mg IVP BID [facility] Last Admin: 07/10/21 20:54 Dose: 20 mg Documented by: Glycopyrrolate (Glycopyrrolate 1 Mg/5 Ml Vial) 0.2 mg SUBQ Q6H PRN PRN Reason: Excessive Secretions Last Admin: 07/10/21 20:54 Dose: 0.2 mg Documented by: Hydromorphone HCl (Hydromorphone 0.5 Mg/0.5 Ml Syringe) 0.5 mg IVP Q3H PRN PRN Reason: PAIN Last Admin: 07/11/21 05:27 Dose: 0.5 mg Documented by: Sodium Chloride (Normal Saline 0.9%) 500 mls @ 20 mls/hr IV Q24H PRN PRN Reason: TKO RATE Last Infusion: 07/11/21 07:15 Dose: 20 mls/hr Documented by: Multivitamins 10 ml/ TRACE ELEMENTS 1 ml/ Amino Ac/Electrol/Dextrose/Calcium 2,011 mls @ 75 mls/hr IV Q24H [facility]; Protocol Last Infusion: 07/11/21 07:00 Dose: 75 mls/hr Documented by: Cefepime HCl 2 gm/ Sodium (Chloride) 100 mls @ 200 mls/hr IV BID [facility] Last Infusion: 07/10/21 21:55 Dose: Infused Documented by: Fat Emulsion-Soy/MCT/[place]/Fish Oil (Smoflipid 20% Iv Fat Emulsion) 50 gm in 250 mls @ 21 mls/hr IV 1900 JULIETA Last Infusion: 07/11/21 06:42 Dose: Infused Documented by: Levofloxacin (Levaquin 750 Mg/150 Ml) 750 mg in 150 mls @ 100 mls/hr IV Q24H [facility] Last Infusion: 07/10/21 16:55 Dose: Infused Documented by: Vancomycin HCl 1 gm/Vancomycin HCl 500 mg/ Sodium Chloride 500 mls @ 250 mls/hr IV Q12H [facility] Last Infusion: 07/11/21 06:14 Dose: Infused Documented by: Norepinephrine Bitartrate 8 mg (/ Dextrose) 250 mls @ 15 mls/hr IV .[id number] JULIETA; Protocol Last Titration: 07/11/21 07:00 Dose: 1 mcg/min, 1.875 mls/hr Documented by: Dexmedetomidine HCl 400 mcg/ (Sodium Chloride) 100 mls @ 4.325 mls/hr IV .Q23H8M PRN; Protocol PRN Reason: Agitation Last Titration: 07/11/21 07:00 Dose: 1.5 mcg/kg/hr, 32.438 mls/hr Documented by: Lorazepam (Lorazepam 2 Mg/Ml Vial) 0.5 mg IVP Q1H PRN PRN Reason: Anxiety Last Admin: 07/11/21 07:05 Dose: 0.5 mg Documented by: Metoclopramide HCl (Metoclopramide 10 Mg/2 Ml Vial) 5 mg IVP Q6HR PRN PRN Reason: Nausea / Vomiting Mineral Oil (Min Oil/Dimethicon/Coconut Oil 92 Gm Tube) 1 applic TOP PRN PRN PRN Reason: Skin Care Last Admin: 07/06/21 20:24 Dose: 1 ea Documented by: Ondansetron HCl (Ondansetron 4 Mg/2 Ml Vial) 4 mg IVP Q6H PRN PRN Reason: Nausea / Vomiting Pantoprazole Sodium (Pantoprazole 40 Mg Vial) 40 mg IVP QDAC [facility] Last Admin: 07/11/21 06:34 Dose: 40 mg Documented by: Phenol/Menthol (Phenol Throat [place] 177 Ml) 2 sprays MM Q2HR PRN PRN Reason: Throat Pain Last Admin: 07/07/21 11:03 Dose: 2 sprays Documented by: Scopolamine HBr (Scopolamine Patch) 1 patch TOP Q3D [facility] Last Admin: 07/09/21 12:54 Dose: 1 patch Documented by: Sodium Chloride (Sodium Chloride Flush 0.9% 10 Ml Syringe) 10 ml IVP 0100,0900,1700 [facility] Last Admin: 07/11/21 06:35 Dose: 10 ml Documented by: Sodium Chloride (Sodium Chloride Flush 0.9% 10 Ml Syringe) 10 ml IVP PRN PRN PRN Reason: NEEDED PER PROVIDER ORDERS Last Admin: 07/11/21 07:04 Dose: 10 ml Documented by: Sodium Chloride (Sodium Chloride Flush 0.9% 10 Ml Syringe) 20 ml IVP PRN PRN PRN Reason: After Blood Draw Last Admin: 07/11/21 05:24 Dose: 20 ml Documented by: Levothyroxine [Synthroid] 75 mcg PO QDAC 07/22/19 Simvastatin [Zocor] 20 mg PO QPM 07/22/19 Torsemide 40 mg PO DAILY 07/22/19 Potassium Chloride 10 meq PO DAILY 01/11/20 EPINEPHrine [Epipen Jr] 0.3 mg IM ONCE PRN 04/12/20 traZODone [Desyrel] 200 mg PO QPM 04/12/20 Meloxicam [Mobic] 7.5 mg PO BID 10/21/20 QUEtiapine [SEROquel] 100 mg PO BID 10/21/20 Objective - Vital Signs/Intake & Output Reviewed Vital Signs: Yes Vital Signs: Vital Signs x48h Pulse Pulse Resp BP Pulse Ox 07/11/21 07:11 79 07/11/21 07:00 73 20 97/52 L 100 07/11/21 06:15 77 110/57 L 07/11/21 06:00 74 20 114/44 L 100 07/11/21 05:40 74 100/54 L 07/11/21 05:35 77 89/59 L 07/11/21 05:30 74 88/50 L 07/11/21 05:25 70 07/11/21 05:15 77 97/50 L 07/11/21 05:05 74 78/66 L 07/11/21 05:00 77 20 99/52 L 99 07/11/21 04:55 71 109/53 L 07/11/21 04:50 77 105/55 L 07/11/21 04:45 76 102/56 L 07/11/21 04:30 77 100/69 07/11/21 04:15 72 104/54 L 07/11/21 04:05 75 111/55 L 07/11/21 04:00 74 20 103/57 L 100 07/11/21 03:05 84 07/11/21 03:00 83 20 107/60 100 07/11/21 02:00 76 20 110/63 100 07/11/21 01:30 78 07/11/21 01:11 70 123/59 L 07/11/21 01:00 78 20 114/50 L 100 07/11/21 00:45 80 107/52 L 07/11/21 00:40 81 110/56 L 07/11/21 00:35 73 122/60 07/11/21 00:30 78 121/56 L Intake & Output: Intake & Output 07/08/21 07/09/21 07/10/21 07/11/21 23:59 23:59 23:59 23:59 Intake Total 2966.25 3533.75 4301.742 1640.833 Output Total 3738 3927 2488 1220 Balance -771.75 -393.25 1813.742 420.833 - Objective General Appearance: positive: Other (intubated and on precedex.) Eyes Bilateral: positive: PERRL, EOMI ENT: positive: No signs of dehydration Neck: positive: No JVD. negative: Stiff neck Respiratory: positive: Wheezes, Rhonchi, Other (ABG 7.57/28.6/89.7 on rate of 20, TV 450, AC) Cardiovascular: positive: Regular rate & rhythm, Systolic murmur. negative: Gallop/S4, Friction rub Abdomen: positive: No organomegaly, Nml bowel sounds, No distention Skin: positive: Warm, Dry Extremities: positive: Pedal edema (large swollen feet but that has been present since on service. Anasarca has improved but still htere) - Lab Results Fish Bones: 07/11/21 05:00 07/11/21 05:00 Other Labs: Lab Results x24hrs 07/11/21 07/11/21 07/11/21 Range/Units 07:25 05:24 05:00 WBC (4.8-10.8) x10^3/uL RBC (4.20-5.40) 10^6/uL Hgb (12.0-16.0) g/dL Hct (37.0-47.0) % MCV (81.0-99.0) fL MCH (27.0-31.0) pg MCHC (32.0-36.0) g/dL RDW (12.0-15.0) % Plt Count (130-450) 10^3/uL MPV (7.9-10.8) fL Neut # (Auto) Lymph # (Auto) Cooper # (Auto) Eos # (Auto) Baso # (Auto) Absolute Nucleated RBC Total Counted Band Neuts % (Manual) (0 - 10) % Abnorm Lymph % (Manual) % Metamyelocytes % ( - 0) % Myelocytes % ( - 0) % Nucleated RBC % Neutrophils # (Manual) (1.5-6.6) 10^3/uL Lymphocytes # (Manual) (1.5-3.5) 10^3/uL Monocytes # (Manual) (0.0-1.0) 10^3/uL Eosinophils # (Manual) (0-0.7) 10^3/uL Basophils # (Manual) (0-0.1) 10^3/uL Differential Comment Platelet Estimate (NORMAL) RBC Morph Micro Appear (NORMAL) Bld Gas Analysis Time 0725 Sample Site LEFT RADIAL ABG pH 7.57 H (7.35-7.45) ABG pCO2 29 L (34-45) mmHg ABG pO2 90 (80-100) mmHg ABG HCO3 25.6 (22.0-26.0) mmol/L ABG Total CO2 26.5 (21.0-29.0) MMOL/L ABG O2 Saturation 97 (94-98) % ABG Base Excess 3.8 H (-2.0-3.0) mmol/L Ruperto Test POSITIVE Respiration Rate 20 b/min O2 Delivery Device VENTILATOR Vent Mode ASSIST/CONTROL FiO2 35.00 Tidal Volume 450 mL PEEP 5 cmH2O Sodium 140 (135-145) mmol/L Potassium 3.7 (3.5-5.0) mmol/L Chloride 106 (101-111) mmol/L Carbon Dioxide 28 (21-32) mmol/L Anion Gap 6.0 (6-13) BUN 26 H (6-20) mg/dL Creatinine 0.5 (0.4-1.0) mg/dL Estimated GFR (MDRD) 119 (>89) Glucose 175 H (70-100) mg/dL POC Whole Bld Glucose 137 H (70 - 100) mg/dL Calcium 8.0 L (8.5-10.3) mg/dL 07/11/21 07/10/21 07/10/21 Range/Units 05:00 23:57 17:38 WBC 6.0 (4.8-10.8) x10^3/uL RBC 2.82 L (4.20-5.40) 10^6/uL Hgb 8.5 L (12.0-16.0) g/dL Hct 26.8 L (37.0-47.0) % MCV 95.0 (81.0-99.0) fL MCH 30.1 (27.0-31.0) pg MCHC 31.7 L (32.0-36.0) g/dL RDW 22.1 H (12.0-15.0) % Plt Count 313 (130-450) 10^3/uL MPV 10.3 (7.9-10.8) fL Neut # (Auto) Not Reportable Lymph # (Auto) Not Reportable Cooper # (Auto) Not Reportable Eos # (Auto) Not Reportable Baso # (Auto) Not Reportable Absolute Nucleated RBC Not Reportable Total Counted 100 Band Neuts % (Manual) 4 (0 - 10) % Abnorm Lymph % (Manual) 0 % Metamyelocytes % 1 H ( - 0) % Myelocytes % 1 H ( - 0) % Nucleated RBC % Not Reportable Neutrophils # (Manual) 4.7 (1.5-6.6) 10^3/uL Lymphocytes # (Manual) 0.7 L (1.5-3.5) 10^3/uL Monocytes # (Manual) 0.4 (0.0-1.0) 10^3/uL Eosinophils # (Manual) 0.1 (0-0.7) 10^3/uL Basophils # (Manual) 0.0 (0-0.1) 10^3/uL Differential Comment MANUAL DIFFERENTIAL Platelet Estimate NORMAL (130-450,000) (NORMAL) RBC Morph Micro Appear 1+ OVALOCYTES (NORMAL) Bld Gas Analysis Time Sample Site ABG pH (7.35-7.45) ABG pCO2 (34-45) mmHg ABG pO2 (80-100) mmHg ABG HCO3 (22.0-26.0) mmol/L ABG Total CO2 (21.0-29.0) MMOL/L ABG O2 Saturation (94-98) % ABG Base Excess (-2.0-3.0) mmol/L Ruperto Test Respiration Rate b/min O2 Delivery Device Vent Mode FiO2 Tidal Volume mL PEEP cmH2O Sodium (135-145) mmol/L Potassium (3.5-5.0) mmol/L Chloride (101-111) mmol/L Carbon Dioxide (21-32) mmol/L Anion Gap (6-13) BUN (6-20) mg/dL Creatinine (0.4-1.0) mg/dL Estimated GFR (MDRD) (>89) Glucose (70-100) mg/dL POC Whole Bld Glucose 166 H 160 H (70 - 100) mg/dL Calcium (8.5-10.3) mg/dL 07/10/21 07/10/21 Range/Units 13:05 12:10 WBC (4.8-10.8) x10^3/uL RBC (4.20-5.40) 10^6/uL Hgb (12.0-16.0) g/dL Hct (37.0-47.0) % MCV (81.0-99.0) fL MCH (27.0-31.0) pg MCHC (32.0-36.0) g/dL RDW (12.0-15.0) % Plt Count (130-450) 10^3/uL MPV (7.9-10.8) fL Neut # (Auto) Lymph # (Auto) [place] # (Auto) Eos # (Auto) Baso # (Auto) Absolute Nucleated RBC Total Counted Band Neuts % (Manual) (0 - 10) % Abnorm Lymph % (Manual) % Metamyelocytes % ( - 0) % Myelocytes % ( - 0) % Nucleated RBC % Neutrophils # (Manual) (1.5-6.6) 10^3/uL Lymphocytes # (Manual) (1.5-3.5) 10^3/uL Monocytes # (Manual) (0.0-1.0) 10^3/uL Eosinophils # (Manual) (0-0.7) 10^3/uL Basophils # (Manual) (0-0.1) 10^3/uL Differential Comment Platelet Estimate (NORMAL) RBC Morph Micro Appear (NORMAL) Bld Gas Analysis Time 1220 Sample Site LRAD ABG pH 7.46 H (7.35-7.45) ABG pCO2 40 (34-45) mmHg ABG pO2 296 H* (80-100) mmHg ABG HCO3 28.0 H (22.0-26.0) mmol/L ABG Total CO2 29.2 H (21.0-29.0) MMOL/L ABG O2 Saturation 100 H (94-98) % ABG Base Excess 4.0 H (-2.0-3.0) mmol/L Ruperto Test POSITIVE Respiration Rate 20 b/min O2 Delivery Device VENTILATOR Vent Mode VC FiO2 100.00 Tidal Volume 450 mL PEEP 3 cmH2O Sodium (135-145) mmol/L Potassium (3.5-5.0) mmol/L Chloride (101-111) mmol/L Carbon Dioxide (21-32) mmol/L Anion Gap (6-13) BUN (6-20) mg/dL Creatinine (0.4-1.0) mg/dL Estimated GFR (MDRD) (>89) Glucose (70-100) mg/dL POC Whole Bld Glucose 204 H (70 - 100) mg/dL Calcium (8.5-10.3) mg/dL ABX Reporting Has patient been on IV antibiotics over the past 48 hours?: Yes Sepsis Event Note (H) - Evaluation Current Stage of Sepsis: Resolved (days ago since surgery) Possible source of Sepsis: positive: GI tract/intra-abdominal - Sepsis Criteria Sepsis Criteria: WBC count greater than 10% bands, SBP drop more than 40mHg, MAP less than 65 mmHg, SBP less than 90 mmHg, Renal: urine output less than 0.5ml/kg/hr for 2 hours or creatinine gr, Metabolic: lactate > 2 mmol/L Assessment/Plan - Problem List (1) Hospital-acquired pneumonia Impression: 07/09 she had a sudden drop in oxygen sats. She has had copious secretions even when she was intubated. Long strings of phlegm were being produced around the ET tube. Since extubation she has struggled w weak cough, and continued secretions. 07/09 had the sudden drop. Required increased 02. ABG confirmed mild hypercapnea with the hypoxia. The CXR confirmed worsening LLL pneumonia. I added Vancomycin and Levaquin to her Cefipime and surgery was ok w stopping the flagyll and diflucan. BiPap used for a short time but she was miserable w the mask leaking around the NG and the lack of fit around her chin. It worked but with the struggle I stopped it and tolerating Robinul is being used but not frequently. Night RN didn't use it. Was stable 07/10 am but by afternoon strug gling to breath. Using acessory muscles in spite of O2. Knowing she did not do well w BiPap we intubated with Anesthesia. PICC line was placed as well. Plan: Day #2 reintubation emphasize secretion clearance Day #3/7 abx nebs Reduce her rate from 20 to 16. Acute respiratory failure requiring reintubation, recurred. Was kept intubated postop, w/o clear source evidence of PNA, Extubated on 07/05, o2 demand continue to go down, ddx: pulmonary edema, possibly iatrogenic ivf given in periop period, CHF. CXR 07/08 suggestive of worsening CHF. pt remained stable on RA since 07/06 but then lost ground 07/09 and had BiPap. Seemed to stabilize w treatment for HAP. Then intubated again 07/10. Anasarca Due to severe protein calorie malnutrition and fluid overload Assessment/Plan: grossly overloaded still from iatrogenic ivf given in periop period -continue diuresis with daily lasix 20mg iv qd increase to bid 07/07, July 06 she was -1200 cc. July 07 -2234 cc. July 08 -771 . July 09 -393. July 09 is +1812. monitor UOP, I thought I increased lasix to 40 in am and 20 in pm but did not write the order. So will increase to 40 mg bid now. Watch creat to make sure I don't put her behind. Perforated duodenal ulcer, Status post direct repair Remi-Olga Pyloroplasty, Gram Patch Assessment/Plan: s/p exploratory laparotomy with repair of posteriorly perforated duodenal ulcer on 06/26 by , course c/b septic shock, prolonged respiratory failure on vent, s/p extubated on 07/05. -Gastrografin challenge 07/09 was consistent with gastric outlet obstruction. Dr. Dobson hopes that this will resolve with conservative management.This may take an extended period of time to resolve. Some literature states as long as 6 weeks. -Leave NG tube in place and suction. Stop all meds thru NG. Given enemas from below 07/09 to try and get things moving. Surgeon would also like low-dose Reglan added. Continue TPN for now via RIJ CVC(06/26-) Given mentation, pt likely needs modality for skilled nursing feeding, will ask for inserting PICC line for TPN today, would discontinue RIJ cvc, to reduce risks of infection. At this time surgery has decided to wait before pursuing further surgical intervention. Will continue to monitor patients progress and reassess. Iron deficiency anemia Assessment/Plan: Started Iron 07/04, h/h slowly trending down wo signs of active bleeding, as per surgery, wound looks good without hematoma. plt count stable despite dvt ppx with LMWH, -h/h stable today, target hgb>7, transfuse as needed, -h/h seems to be trending up. Today hgb at 8.5. Ileus following gastrointestinal surgery Assessment/Plan: Reviewed abd xray Ileus seen Patient has received lactulose via NGT, but it does not appear to be helping per surgeon.Started low-dose Reglan 07/10. Because she had total lack of dye passing w gastrograffin all NG input stopped. We are waiting to see when she opens up and it is a wait and see. Chronic, stable, resolved, Acute encephalopathy resolved Impression: pt still follows minimal commands, still lethargic since off on sedation in 10 AM but she does respond more and more, reportedly pt has poor cognitive function at baseline. -will continue to monitor mental status, consider starting PT eval for dispo once pt is more lucid. Acute peritonitis Resolved s/p perforated DU. Peritoneal fluid culture on 06/26 ngtd. BCX not available. shock resolved, off on vasopressor 07/07 AM. -completed cefipime, flagyl and diflucan per General Surgery and per note they were ok with change for HAP. 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 Peritoneal fluid culture on 06/26 ngtd. BCX not available. shock resolved, off on vasopressor 10/10 AM.
[2021-07-11] MEDS: CEFEPIME 2 GM in SODIUM CHLORIDE 0.9% MINIBAG 100 ML IV SCH ×2 (09:12→20:31)
[2021-07-11] MEDS: ENOXAPARIN 40 MG/0.4 ML SYRINGE SUBQ SCH (09:17)
[2021-07-11] MEDS: FUROSEMIDE 40 MG/4 ML VIAL IVP SCH ×2 (09:22→20:32)
[2021-07-11] MEDS: CHLORHEXIDINE GLUCONATE 15 ML UDC PO SCH ×2 (09:26→20:32)
--- NOTE | 2021-07-11 13:20 | PROVIDER PROGRESS NOTE ---
Subjective - General Admit Date: 06/26/21 Procedure Date: 06/26/21 Post Op Days: 15 Procedure Performed: Exploratory laparotomy with repair of posterior duodenal ulcer - Review of Systems Wound/Incisions: positive: Healing well Drain Type: 19 Amharic Tanner Drain Output Description: Serosanguineous - Other Other Information/Narrative: Pain and Felisha appears much more comfortable on the ventilator. Objective - Patient Data Vital Signs: Vital Signs x48h Temp Pulse Pulse Resp BP Pulse Ox 07/11/21 12:42 76 07/11/21 11:00 72 16 103/59 L 100 07/11/21 10:00 74 16 99/51 L 100 07/11/21 09:54 79 07/11/21 09:00 36.4 C L 72 16 98/49 L 99 07/11/21 08:00 73 16 105/52 L 100 07/11/21 07:11 79 07/11/21 07:00 73 20 97/52 L 100 07/11/21 06:15 77 110/57 L 07/11/21 06:00 74 20 114/44 L 100 07/11/21 05:40 74 100/54 L 07/11/21 05:35 77 89/59 L 07/11/21 05:30 74 88/50 L 07/11/21 05:25 70 Weight: Weight 07/09/21 07/10/21 07/11/21 23:59 23:59 23:59 Weight (kg) 88.5 kg 86.5 kg 87.5 kg Intake & Output: Intake and Output Totals x24h 07/09/21 07/10/21 07/11/21 23:59 23:59 23:59 Intake Total 3533.75 4301.742 2277.495 Output Total 3927 2488 2345 Balance -393.25 1813.742 -67.505 - Lab Results Lab Results: 07/11/21 05:00 07/11/21 05:00 Other Lab Results: Lab Results x24hrs 07/11/21 07/11/21 07/11/21 Range/Units 11:27 07:25 05:24 WBC (4.8-10.8) x10^3/uL RBC (4.20-5.40) 10^6/uL Hgb (12.0-16.0) g/dL Hct (37.0-47.0) % MCV (81.0-99.0) fL MCH (27.0-31.0) pg MCHC (32.0-36.0) g/dL RDW (12.0-15.0) % Plt Count (130-450) 10^3/uL MPV (7.9-10.8) fL Neut # (Auto) Lymph # (Auto) [place] # (Auto) Eos # (Auto) Baso # (Auto) Absolute Nucleated RBC Total Counted Band Neuts % (Manual) (0 - 10) % Abnorm Lymph % (Manual) % Metamyelocytes % ( - 0) % Myelocytes % ( - 0) % Nucleated RBC % Neutrophils # (Manual) (1.5-6.6) 10^3/uL Lymphocytes # (Manual) (1.5-3.5) 10^3/uL Monocytes # (Manual) (0.0-1.0) 10^3/uL Eosinophils # (Manual) (0-0.7) 10^3/uL Basophils # (Manual) (0-0.1) 10^3/uL Differential Comment Platelet Estimate (NORMAL) RBC Morph Micro Appear (NORMAL) Bld Gas Analysis Time 0725 Sample Site LEFT RADIAL ABG pH 7.57 H (7.35-7.45) ABG pCO2 29 L (34-45) mmHg ABG pO2 90 (80-100) mmHg ABG HCO3 25.6 (22.0-26.0) mmol/L ABG Total CO2 26.5 (21.0-29.0) MMOL/L ABG O2 Saturation 97 (94-98) % ABG Base Excess 3.8 H (-2.0-3.0) mmol/L Ruperto Test POSITIVE Respiration Rate 20 b/min O2 Delivery Device VENTILATOR Vent Mode ASSIST/CONTROL FiO2 35.00 Tidal Volume 450 mL PEEP 5 cmH2O Sodium (135-145) mmol/L Potassium (3.5-5.0) mmol/L Chloride (101-111) mmol/L Carbon Dioxide (21-32) mmol/L Anion Gap (6-13) BUN (6-20) mg/dL Creatinine (0.4-1.0) mg/dL Estimated GFR (MDRD) (>89) Glucose (70-100) mg/dL POC Whole Bld Glucose 152 H 137 H (70 - 100) mg/dL Calcium (8.5-10.3) mg/dL 07/11/21 07/11/21 07/10/21 Range/Units 05:00 05:00 23:57 WBC 6.0 (4.8-10.8) x10^3/uL RBC 2.82 L (4.20-5.40) 10^6/uL Hgb 8.5 L (12.0-16.0) g/dL Hct 26.8 L (37.0-47.0) % MCV 95.0 (81.0-99.0) fL MCH 30.1 (27.0-31.0) pg MCHC 31.7 L (32.0-36.0) g/dL RDW 22.1 H (12.0-15.0) % Plt Count 313 (130-450) 10^3/uL MPV 10.3 (7.9-10.8) fL Neut # (Auto) Not Reportable Lymph # (Auto) Not Reportable [place] # (Auto) Not Reportable Eos # (Auto) Not Reportable Baso # (Auto) Not Reportable Absolute Nucleated RBC Not Reportable Total Counted 100 Band Neuts % (Manual) 4 (0 - 10) % Abnorm Lymph % (Manual) 0 % Metamyelocytes % 1 H ( - 0) % Myelocytes % 1 H ( - 0) % Nucleated RBC % Not Reportable Neutrophils # (Manual) 4.7 (1.5-6.6) 10^3/uL Lymphocytes # (Manual) 0.7 L (1.5-3.5) 10^3/uL Monocytes # (Manual) 0.4 (0.0-1.0) 10^3/uL Eosinophils # (Manual) 0.1 (0-0.7) 10^3/uL Basophils # (Manual) 0.0 (0-0.1) 10^3/uL Differential Comment MANUAL DIFFERENTIAL Platelet Estimate NORMAL (130-450,000) (NORMAL) RBC Morph Micro Appear 1+ OVALOCYTES (NORMAL) Bld Gas Analysis Time Sample Site ABG pH (7.35-7.45) ABG pCO2 (34-45) mmHg ABG pO2 (80-100) mmHg ABG HCO3 (22.0-26.0) mmol/L ABG Total CO2 (21.0-29.0) MMOL/L ABG O2 Saturation (94-98) % ABG Base Excess (-2.0-3.0) mmol/L Ruperto Test Respiration Rate b/min O2 Delivery Device Vent Mode FiO2 Tidal Volume mL PEEP cmH2O Sodium 140 (135-145) mmol/L Potassium 3.7 (3.5-5.0) mmol/L Chloride 106 (101-111) mmol/L Carbon Dioxide 28 (21-32) mmol/L Anion Gap 6.0 (6-13) BUN 26 H (6-20) mg/dL Creatinine 0.5 (0.4-1.0) mg/dL Estimated GFR (MDRD) 119 (>89) Glucose 175 H (70-100) mg/dL POC Whole Bld Glucose 166 H (70 - 100) mg/dL Calcium 8.0 L (8.5-10.3) mg/dL 07/10/21 Range/Units 17:38 WBC (4.8-10.8) x10^3/uL RBC (4.20-5.40) 10^6/uL Hgb (12.0-16.0) g/dL Hct (37.0-47.0) % MCV (81.0-99.0) fL MCH (27.0-31.0) pg MCHC (32.0-36.0) g/dL RDW (12.0-15.0) % Plt Count (130-450) 10^3/uL MPV (7.9-10.8) fL Neut # (Auto) Lymph # (Auto) [place] # (Auto) Eos # (Auto) Baso # (Auto) Absolute Nucleated RBC Total Counted Band Neuts % (Manual) (0 - 10) % Abnorm Lymph % (Manual) % Metamyelocytes % ( - 0) % Myelocytes % ( - 0) % Nucleated RBC % Neutrophils # (Manual) (1.5-6.6) 10^3/uL Lymphocytes # (Manual) (1.5-3.5) 10^3/uL Monocytes # (Manual) (0.0-1.0) 10^3/uL Eosinophils # (Manual) (0-0.7) 10^3/uL Basophils # (Manual) (0-0.1) 10^3/uL Differential Comment Platelet Estimate (NORMAL) RBC Morph Micro Appear (NORMAL) Bld Gas Analysis Time Sample Site ABG pH (7.35-7.45) ABG pCO2 (34-45) mmHg ABG pO2 (80-100) mmHg ABG HCO3 (22.0-26.0) mmol/L ABG Total CO2 (21.0-29.0) MMOL/L ABG O2 Saturation (94-98) % ABG Base Excess (-2.0-3.0) mmol/L Ruperto Test Respiration Rate b/min O2 Delivery Device Vent Mode FiO2 Tidal Volume mL PEEP cmH2O Sodium (135-145) mmol/L Potassium (3.5-5.0) mmol/L Chloride (101-111) mmol/L Carbon Dioxide (21-32) mmol/L Anion Gap (6-13) BUN (6-20) mg/dL Creatinine (0.4-1.0) mg/dL Estimated GFR (MDRD) (>89) Glucose (70-100) mg/dL POC Whole Bld Glucose 160 H (70 - 100) mg/dL Calcium (8.5-10.3) mg/dL - Current Medications Current Medications: Current Medications Generic Name Dose Route Start Last Admin Trade Name Freq PRN Reason Stop Dose Admin Chlorhexidine Gluconate 15 ml 06/27/21 21:00 07/11/21 09:26 Chlorhexidine Gluconate 15 Ml Udc PO 15 ml BID JULIETA Administration Enoxaparin Sodium 40 mg 06/28/21 09:00 07/11/21 09:17 Enoxaparin 40 Mg/0.4 Ml Syringe SUBQ 40 mg DAILY JULIETA Administration Furosemide 40 mg 07/11/21 09:00 07/11/21 09:22 Furosemide 40 Mg/4 Ml Vial IVP 40 mg BID JULIETA Administration Glycopyrrolate 0.2 mg 06/28/21 21:17 07/10/21 20:54 Glycopyrrolate 1 Mg/5 Ml Vial SUBQ 0.2 mg Q6H PRN Administration Excessive Secretions Hydromorphone HCl 0.5 mg 07/06/21 22:57 07/11/21 05:27 Hydromorphone 0.5 Mg/0.5 Ml Syringe IVP 0.5 mg Q3H PRN Administration PAIN Sodium Chloride 500 mls @ 20 mls/hr 06/26/21 23:03 07/11/21 07:15 Normal Saline 0.9% IV 20 mls/hr Q24H PRN Infusion TKO RATE Multivitamins 10 ml/ TRACE 2,011 mls @ 75 mls/hr 06/27/21 19:00 07/11/21 12:12 ELEMENTS 1 ml/ Amino Ac/ IV 75 mls/hr Electrol/Dextrose/Calcium Q24H JULIETA Infusion Protocol Cefepime HCl 2 gm/ Sodium 100 mls @ 200 mls/hr 06/27/21 18:00 07/11/21 10:15 Chloride IV Infused BID JULIETA Infusion Fat Emulsion-Soy/MCT/[place]/Fish Oil 50 gm in 250 mls @ 21 mls/hr 07/05/21 19:00 07/11/21 06:42 Smoflipid 20% Iv Fat Emulsion IV Infused 1900 JULIETA Infusion Levofloxacin 750 mg in 150 mls @ 100 mls/hr 07/09/21 15:00 07/10/21 16:55 Levaquin 750 Mg/150 Ml IV Infused Q24H JULIETA Infusion Vancomycin HCl 1 gm/ 500 mls @ 250 mls/hr 07/10/21 04:00 07/11/21 06:14 Vancomycin HCl 500 mg/ Sodium IV Infused Chloride Q12H JULIETA Infusion Norepinephrine Bitartrate 8 mg 250 mls @ 15 mls/hr 07/10/21 12:00 07/11/21 12:00 / Dextrose IV 1 mcg/min .[id number] JULIETA 1.875 mls/hr Titration Protocol 8 MCG/MIN Dexmedetomidine HCl 400 mcg/ 100 mls @ 4.325 mls/hr 07/10/21 11:20 07/11/21 11:45 Sodium Chloride IV 1 mcg/kg/hr .Q23H8M PRN 21.625 mls/hr Agitation Administration Protocol 0.2 MCG/KG/HR Lorazepam 0.5 mg 06/26/21 20:54 07/11/21 07:05 Lorazepam 2 Mg/Ml Vial IVP 0.5 mg Q1H PRN Administration Anxiety Mineral Oil 1 applic 07/01/21 01:24 07/06/21 20:24 Min Oil/Dimethicon/Coconut Oil 92 Gm Tube TOP 1 ea PRN PRN Administration Skin Care Pantoprazole Sodium 40 mg 06/27/21 07:00 07/11/21 06:34 Pantoprazole 40 Mg Vial IVP 40 mg QDAC JULIETA Administration Phenol/Menthol 2 sprays 07/05/21 21:24 07/07/21 11:03 Phenol Throat [place] 177 Ml MM 2 sprays Q2HR PRN Administration Throat Pain Scopolamine HBr 1 patch 07/03/21 11:00 07/09/21 12:54 Scopolamine Patch TOP 1 patch Q3D JULIETA Administration Sodium Chloride 10 ml 06/27/21 01:00 07/11/21 09:23 Sodium Chloride Flush 0.9% 10 Ml Syringe IVP 10 ml 0100,0900,1700 JULIETA Administration Sodium Chloride 10 ml 06/26/21 20:54 07/11/21 07:04 Sodium Chloride Flush 0.9% 10 Ml Syringe IVP 10 ml PRN PRN Administration NEEDED PER PROVIDER ORDERS Sodium Chloride 20 ml 06/26/21 23:03 07/11/21 05:24 Sodium Chloride Flush 0.9% 10 Ml Syringe IVP 20 ml PRN PRN Administration After Blood Draw - Physical Exam Wound/Incisions: positive: Healing well Abdomen: positive: Nml bowel sounds, No distention Comments/Other: NG tube output is between 50 and 200 mils a day and is less bilious. ABX Reporting Has patient been on IV antibiotics over the past 48 hours?: Yes Impression/Plan - Problem List Problem List: Perforated Viscus We will repeat the Gastrografin challenge today. It would be nice to be able to give her p.o. meds through her NG tube. It would also be helpful to be able to give her lactulose to help with the constipation/obstipation.
[2021-07-11] MEDS ORDERED: DIATRIZOATE MEGLU/DIATRIZO SOD 30 ML BOTTLE PO ONE (13:49)
--- NOTE | 2021-07-11 14:52 | XRAY Report ---
PROCEDURE: Abdomen 1 View X-Ray INDICATIONS: Gastrografin study for outlet obstruction/ checking for obstruction before challenge pe r physician TECHNIQUE: 1 view of the abdomen were acquired. COMPARISON: July 08, 2021 FINDINGS: Surgical changes and devices: Partially imaged enteric tube extends below the left diaphragm into the region of the stomach.. Bowel: Nonspecific bowel gas pattern. Enteric contrast is seen within the colon. Soft tissues: No masses; visualized solid organ contours appear normal in size. No suspicious abdom inal calcifications. Bones: No suspicious bony abnormalities. IMPRESSION: Passage of enteric contrast into the colon. Reviewed by: Bonifacio Worley MD on 07/11/2021 2:50 PM PDT Approved by: Bonifacio Worley MD on 07/11/2021 2:50 PM PDT Station ID: [id number]
[2021-07-11] MEDS: levoFLOXacin 750 MG/150 ML 750 MG/150 ML BAG IV SCH (15:25)
[2021-07-11 15:58] LABS: VANCOMYCIN,TROUGH 29.4 ug/mL (10.0-20.0)
[2021-07-11] MEDS: FAT EMUL/SOY/MCT/OLIV/FISH OIL 50 GM/250 ML BAG IV SCH (18:20)
[2021-07-11] MEDS: TPN (CLINIMIX E 5/15) 2,000 ML with MULTIVITAMIN 10 ML, TRACE ELEMENTS 1 ML IV SCH ×3 (18:20)
[2021-07-11] MEDS: VANCOMYCIN INJ 1 GM in SODIUM CHLORIDE 0.9% 250 ML IV SCH (21:54)
--- NOTE | 2021-07-11 22:18 | XRAY Report ---
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 No suspicious abdominal calcificati ons. Visualized solid organ contours appear normal in size. No suspicious bony abnormalities. Cont rast was noted within portions of the colon at the start of the exam, residual from prior contrast ex am. Contrast is noted initially within the stomach at the immediate as well as 15 minute film. Contrast i s noted to progress through the stomach into the nonobstructed bowel. However, it is noted at the 4 h our film, a significant portion of the contrast still remains within the stomach. IMPRESSION: Significant portion of the contrast remaining within the stomach 4 hours postadministration. Findings are suggestive of gastric outlet obstruction or potentially gastroparesis. As clinically indicated, follow-up x-ray in 12 to 24 hours may be obtained to document complete passage of contrast from the s tomach. Overall nonobstructive bowel gas pattern. Reviewed by: Jane Ireland MD on 07/11/2021 10:17 PM PDT Approved by: Jane Ireland MD on 07/11/2021 10:17 PM PDT Station ID: [id number]
[2021-07-12] MEDS: SODIUM CHLORIDE FLUSH 0.9% 10 ML SYRINGE IVP SCH ×3 (00:03→18:25)
[2021-07-12] MEDS: HYDROmorphone 0.5 MG/0.5 ML SYRINGE IVP PRN ×3 (00:25→23:35)
[2021-07-12] MEDS: LORazepam 2 MG/ML VIAL IVP PRN ×4 (01:24→21:45)
[2021-07-12] MEDS: DEXMEDETOMIDINE 400 MCG in SODIUM CHLORIDE 0.9% 100ML 96 ML IV PRN ×7 (02:25→21:44)
[2021-07-12] MEDS: SODIUM CHLORIDE FLUSH 0.9% 10 ML SYRINGE IVP PRN ×2 (04:29→06:23)
[2021-07-12 04:59] LABS: BASOPHILS # (AUTO) 0.1 10^3/uL (0.0-0.1); BASOPHILS % (AUTO) 0.9 %; EOSINOPHILS # (AUTO) 0.4 10^3/uL (0.0-0.7); EOSINOPHILS % (AUTO) 6.3 %; HCT - HEMATOCRIT 28.1 % (37.0-47.0); HGB - HEMOGLOBIN 8.9 g/dL (12.0-16.0); LYMPHOCYTES # (AUTO) 1.4 10^3/uL (1.5-3.5); MEAN CORPUSCULAR HEMOGLOBIN 29.7 pg (27.0-31.0); MEAN CORPUSCULAR HGB CONC 31.7 g/dL (32.0-36.0); MEAN CORPUSCULAR VOLUME 93.7 fL (81.0-99.0); MEAN PLATELET VOLUME 10.4 fL (7.9-10.8); MONOCYTES # (AUTO) 0.6 10^3/uL (0.0-1.0); MONOCYTES % (AUTO) 10.2 %; NEUTROPHILS # (AUTO) 3.1 10^3/uL (1.5-6.6); NEUTROPHILS % (AUTO) 54.9 %; PLT - PLATELET COUNT 317 10^3/uL (130-450); RED CELL DISTRIBUTION WIDTH 22.6 % (12.0-15.0); WHITE BLOOD COUNT 5.7 x10^3/uL (4.8-10.8)
[2021-07-12 05:03] LABS: SLIDE REVIEW? Indicated
[2021-07-12 05:16] LABS: ALBUMIN/GLOBULIN RATIO 0.6 (1.0-2.2); BILIRUBIN,TOTAL 0.6 mg/dL (0.2-1.0); CALCIUM 7.6 mg/dL (8.5-10.3); CREATININE 0.5 mg/dL (0.4-1.0); MAGNESIUM 1.9 mg/dL (1.7-2.8); PHOSPHORUS 2.6 mg/dL (2.5-4.6); TOTAL PROTEIN 5.1 g/dL (6.7-8.2)
[2021-07-12 05:27] LABS: PLATELET ESTIMATE, MANUAL NORMAL (130-450,000) (NORMAL); PLATELET MORPHOLOGY NORMAL APPEARANCE (NORMAL); RBC MORPHOLOGY (MULTIPLE) 2+ ANISOCYTOSIS (NORMAL); WBC MORPHOLOGY (MULTIPLE) NORMAL APPEARANCE (NORMAL)
[2021-07-12] MEDS: SODIUM CHLORIDE 0.9% 500 ML IV PRN (05:55)
[2021-07-12] MEDS: PANTOPRAZOLE 40 MG VIAL IVP SCH (06:23)
[2021-07-12] MEDS: POTASSIUM CHLOR 20 MEQ/100 ML 20 MEQ/100 ML BAG IV SCH ×2 (08:40→11:29)
[2021-07-12] MEDS: ENOXAPARIN 40 MG/0.4 ML SYRINGE SUBQ SCH (08:48)
[2021-07-12] MEDS: CHLORHEXIDINE GLUCONATE 15 ML UDC PO SCH ×2 (08:49→20:03)
[2021-07-12] MEDS: FUROSEMIDE 40 MG/4 ML VIAL IVP SCH ×2 (09:11→20:03)
[2021-07-12] MEDS: CEFEPIME 2 GM in SODIUM CHLORIDE 0.9% MINIBAG 100 ML IV SCH ×2 (10:06→20:03)
[2021-07-12] MEDS: METOCLOPRAMIDE 10 MG/2 ML VIAL IVP SCH ×3 (10:32→23:39)
--- NOTE | 2021-07-12 11:09 | PROVIDER PROGRESS NOTE ---
Subjective - Prog Note Date Prog Note Date: 07/12/21 Prog Note Time: 11:07 - Subjective Subjective: Gastrografin challenge was to be repeated yesterday. However we temporize by checking plain films to see if any Gastrografin passed through. It had gotten to the colon from her previous Gastrografin challenge. That was on July 08. Yesterday, Contrast was put in and noted within the stomach 4 hours later. Findings were suggestive of gastric outlet obstruction or potentially gastroparesis. Nonobstructive bowel gas pattern. Surgery started very slow tube feedings on her yesterday. I started her on Lasix 40 twice daily since her urine output had diminished over the last few days. Unfortunately blood pressure is responded by being consistently low. The patient herself is stayed stable. There has been no fever. She gets occasionally hypotensive at 95-96 systolic. She is on an FiO2 of 35% with a tidal volume of 450 and maintaining O2 sats of 100%. PEEP of 5. I did turn down the rate yesterday from 20->16. She has not had a bowel movement since before surgery. Nursing is unable to say if she is having flatus or not. Current Medications - Current Medications Current Medications: Active Medications Benzocaine/Butamben/Tetracaine HCl (Benzocaine/Tetracaine/Butamben 20 Gm) 1 sprays MM DAILY PRN PRN Reason: Throat Pain Chlorhexidine Gluconate (Chlorhexidine Gluconate 15 Ml Udc) 15 ml PO BID [facility] Last Admin: 07/12/21 08:49 Dose: 15 ml Documented by: Enoxaparin Sodium (Enoxaparin 40 Mg/0.4 Ml Syringe) 40 mg SUBQ DAILY [facility] Last Admin: 07/12/21 08:48 Dose: 40 mg Documented by: Furosemide (Furosemide 40 Mg/4 Ml Vial) 40 mg IVP BID [facility] Last Admin: 07/12/21 09:11 Dose: 40 mg Documented by: Glycopyrrolate (Glycopyrrolate 1 Mg/5 Ml Vial) 0.2 mg SUBQ Q6H PRN PRN Reason: Excessive Secretions Last Admin: 07/10/21 20:54 Dose: 0.2 mg Documented by: Hydromorphone HCl (Hydromorphone 0.5 Mg/0.5 Ml Syringe) 0.5 mg IVP Q3H PRN PRN Reason: PAIN Last Admin: 07/12/21 00:25 Dose: 0.5 mg Documented by: Sodium Chloride (Normal Saline 0.9%) 500 mls @ 20 mls/hr IV Q24H PRN PRN Reason: TKO RATE Last Infusion: 07/12/21 08:00 Dose: 20 mls/hr Documented by: Multivitamins 10 ml/ TRACE ELEMENTS 1 ml/ Amino Ac/Electrol/Dextrose/Calcium 2,011 mls @ 42 mls/hr IV Q24H JULIETA; Protocol Last Infusion: 07/12/21 10:00 Dose: 55 mls/hr Documented by: Cefepime HCl 2 gm/ Sodium (Chloride) 100 mls @ 200 mls/hr IV BID JULIETA Last Admin: 07/12/21 10:06 Dose: 100 mls/hr Documented by: Fat Emulsion-Soy/MCT/[place]/Fish Oil (Smoflipid 20% Iv Fat Emulsion) 50 gm in 250 mls @ 21 mls/hr IV 1900 JULIETA Last Infusion: 07/12/21 06:35 Dose: Infused Documented by: Levofloxacin (Levaquin 750 Mg/150 Ml) 750 mg in 150 mls @ 100 mls/hr IV Q24H JULIETA Last Infusion: 07/11/21 16:55 Dose: Infused Documented by: Norepinephrine Bitartrate 8 mg (/ Dextrose) 250 mls @ 15 mls/hr IV .[id number] JULIETA; Protocol Last Titration: 07/12/21 10:00 Dose: 3 mcg/min, 5.625 mls/hr Documented by: Dexmedetomidine HCl 400 mcg/ (Sodium Chloride) 100 mls @ 4.325 mls/hr IV .Q23H8M PRN; Protocol PRN Reason: Agitation Last Admin: 07/12/21 09:00 Dose: 1.5 mcg/kg/hr, 32.438 mls/hr Documented by: Vancomycin HCl 1 gm/ Sodium (Chloride) 250 mls @ 167 mls/hr IV Q18H JULIETA Last Infusion: 07/12/21 00:05 Dose: Infused Documented by: Lorazepam (Lorazepam 2 Mg/Ml Vial) 0.5 mg IVP Q1H PRN PRN Reason: Anxiety Last Admin: 07/12/21 01:24 Dose: 0.5 mg Documented by: Metoclopramide HCl (Metoclopramide 10 Mg/2 Ml Vial) 5 mg IVP Q6HR [facility] Last Admin: 07/12/21 10:32 Dose: 5 mg Documented by: Mineral Oil (Min Oil/Dimethicon/Coconut Oil 92 Gm Tube) 1 applic TOP PRN PRN PRN Reason: Skin Care Last Admin: 07/06/21 20:24 Dose: 1 ea Documented by: Ondansetron HCl (Ondansetron 4 Mg/2 Ml Vial) 4 mg IVP Q6H PRN PRN Reason: Nausea / Vomiting Pantoprazole Sodium (Pantoprazole 40 Mg Vial) 40 mg IVP QDAC [facility] Last Admin: 07/12/21 06:23 Dose: 40 mg Documented by: Phenol/Menthol (Phenol Throat [place] 177 Ml) 2 sprays MM Q2HR PRN PRN Reason: Throat Pain Last Admin: 07/07/21 11:03 Dose: 2 sprays Documented by: Scopolamine HBr (Scopolamine Patch) 1 patch TOP Q3D [facility] Last Admin: 07/09/21 12:54 Dose: 1 patch Documented by: Sodium Chloride (Sodium Chloride Flush 0.9% 10 Ml Syringe) 10 ml IVP 0100,0900,1700 [facility] Last Admin: 07/12/21 09:11 Dose: 10 ml Documented by: Sodium Chloride (Sodium Chloride Flush 0.9% 10 Ml Syringe) 10 ml IVP PRN PRN PRN Reason: NEEDED PER PROVIDER ORDERS Last Admin: 07/12/21 06:23 Dose: 10 ml Documented by: Sodium Chloride (Sodium Chloride Flush 0.9% 10 Ml Syringe) 20 ml IVP PRN PRN PRN Reason: After Blood Draw Last Admin: 07/12/21 04:29 Dose: 20 ml Documented by: Levothyroxine [Synthroid] 75 mcg PO QDAC 07/22/19 Simvastatin [Zocor] 20 mg PO QPM 07/22/19 Torsemide 40 mg PO DAILY 07/22/19 Potassium Chloride 10 meq PO DAILY 01/11/20 EPINEPHrine [Epipen Jr] 0.3 mg IM ONCE PRN 04/12/20 traZODone [Desyrel] 200 mg PO QPM 04/12/20 Meloxicam [Mobic] 7.5 mg PO BID 10/21/20 QUEtiapine [SEROquel] 100 mg PO BID 10/21/20 Objective - Vital Signs/Intake & Output Reviewed Vital Signs: Yes Vital Signs: Vital Signs x48h Temp Pulse Pulse Resp BP Pulse Ox 07/12/21 10:00 74 16 96/44 L 100 07/12/21 09:25 80 07/12/21 09:00 80 17 95/48 L 100 07/12/21 08:00 37.1 C 72 17 95/48 L 100 07/12/21 07:10 72 07/12/21 07:00 70 16 98/54 L 100 07/12/21 06:21 72 16 100/56 L 100 07/12/21 05:00 79 16 103/52 L 100 07/12/21 04:50 72 07/12/21 04:00 72 16 108/58 L 100 07/12/21 03:45 70 07/12/21 03:19 36.4 C L Intake & Output: Intake & Output 07/09/21 07/10/21 07/11/21 07/12/21 23:59 23:59 23:59 23:59 Intake Total 3533.75 4301.742 4642.037 2100.208 Output Total 3927 2488 3570 1605 Balance -393.25 5083.620 0431.037 495.208 - Objective General Appearance: positive: Other (Eyes closed. Intubated. On Precedex. Yet when you walk in the room and start speaking, such as to nursing, her eyes do open and she watches us.) Eyes Bilateral: negative: EOMI (Right eye deviation that I have been in remiss of failing to note. That is chronic and constant. It deviates laterally.) ENT: positive: No signs of dehydration Neck: positive: No JVD. negative: Stiff neck Respiratory: positive: No respiratory distress, Rhonchi (Much less than before. Lungs are much improved since it started Lasix 40 mg IV push twice daily. The copious secretions have also subsided. Nursing states that the last large str ingy phlegm was yesterday) Cardiovascular: positive: Regular rate & rhythm, Systolic murmur. negative: Gallop/S4, Friction rub Abdomen: positive: No distention, Other (Very hypoactive bowel sounds.). negative: Guarding, Rebound Skin: positive: Warm, Dry, Pallor Extremities: positive: Full ROM (She spontaneously moves them herself to get comfortable. Bend at the hips, bend at the knees. Using her hands and arms to grasp at things.), Pedal edema (waterside worker RN has started wrapping Quang wraps a round her toes and bring it back up through her foot, ankle and calves to shrink them down. While she still has large feet, there is significantly less edema from yesterday to today.) Neurologic/Psychiatric: positive: Other (Intubated, on Precedex. Eyes do open to voice. Responds to painful stimuli and will purposely withdraw from touch if she is uncomfortable.) - Lab Results Fish Bones: 07/12/21 04:30 07/12/21 04:30 Other Labs: Lab Results x24hrs 07/12/21 07/12/21 07/12/21 Range/Units 06:26 04:30 04:30 WBC (4.8-10.8) x10^3/uL RBC (4.20-5.40) 10^6/uL Hgb (12.0-16.0) g/dL Hct (37.0-47.0) % MCV (81.0-99.0) fL MCH (27.0-31.0) pg MCHC (32.0-36.0) g/dL RDW (12.0-15.0) % Plt Count (130-450) 10^3/uL MPV (7.9-10.8) fL Neut # (Auto) (1.5-6.6) 10^3/uL Lymph # (Auto) (1.5-3.5) 10^3/uL [place] # (Auto) (0.0-1.0) 10^3/uL Eos # (Auto) (0.0-0.7) 10^3/uL Baso # (Auto) (0.0-0.1) 10^3/uL Absolute Nucleated RBC x10^3/uL Nucleated RBC % /100WBC Manual Slide Review WBC Morphology (NORMAL) Platelet Estimate (NORMAL) Platelet Morphology (NORMAL) RBC Morph Micro Appear (NORMAL) Sodium 137 Cancelled Potassium 3.0 L Cancelled Chloride 99 L Cancelled Carbon Dioxide 28 Cancelled Anion Gap 10.0 Cancelled BUN 27 H Cancelled Creatinine 0.5 Cancelled Estimated GFR (MDRD) 119 Cancelled Glucose 167 H Cancelled POC Whole Bld Glucose 157 H (70 - 100) mg/dL Calcium 7.6 L Cancelled Phosphorus 2.6 (2.5-4.6) mg/dL Magnesium 1.9 (1.7-2.8) mg/dL Total Bilirubin 0.6 (0.2-1.0) mg/dL AST 40 (10-42) IU/L ALT 24 (10-60) IU/L Alkaline Phosphatase 107 (42-121) IU/L Total Protein 5.1 L (6.7-8.2) g/dL Albumin 2.0 L (3.2-5.5) g/dL Globulin 3.1 (2.1-4.2) g/dL Albumin/Globulin Ratio 0.6 L (1.0-2.2) Prealbumin 23 (18-45) mg/dL Vancomycin Trough (10.0-20.0) ug/mL 07/12/21 07/12/21 07/11/21 Range/Units 04:30 00:08 18:46 WBC 5.7 (4.8-10.8) x10^3/uL RBC 3.00 L (4.20-5.40) 10^6/uL Hgb 8.9 L (12.0-16.0) g/dL Hct 28.1 L (37.0-47.0) % MCV 93.7 (81.0-99.0) fL MCH 29.7 (27.0-31.0) pg MCHC 31.7 L (32.0-36.0) g/dL RDW 22.6 H (12.0-15.0) % Plt Count 317 (130-450) 10^3/uL MPV 10.4 (7.9-10.8) fL Neut # (Auto) 3.1 (1.5-6.6) 10^3/uL Lymph # (Auto) 1.4 L (1.5-3.5) 10^3/uL [place] # (Auto) 0.6 (0.0-1.0) 10^3/uL Eos # (Auto) 0.4 (0.0-0.7) 10^3/uL Baso # (Auto) 0.1 (0.0-0.1) 10^3/uL Absolute Nucleated RBC 0.00 x10^3/uL Nucleated RBC % 0.0 /100WBC Manual Slide Review Indicated WBC Morphology NORMAL APPEARANCE (NORMAL) Platelet Estimate NORMAL (130-450,000) (NORMAL) Platelet Morphology NORMAL APPEARANCE (NORMAL) RBC Morph Micro Appear 2+ ANISOCYTOSIS (NORMAL) Sodium Potassium Chloride Carbon Dioxide Anion Gap BUN Creatinine Estimated GFR (MDRD) Glucose POC Whole Bld Glucose 155 H 137 H (70 - 100) mg/dL Calcium Phosphorus (2.5-4.6) mg/dL Magnesium (1.7-2.8) mg/dL Total Bilirubin (0.2-1.0) mg/dL AST (10-42) IU/L ALT (10-60) IU/L Alkaline Phosphatase (42-121) IU/L Total Protein (6.7-8.2) g/dL Albumin (3.2-5.5) g/dL Globulin (2.1-4.2) g/dL Albumin/Globulin Ratio (1.0-2.2) Prealbumin (18-45) mg/dL Vancomycin Trough (10.0-20.0) ug/mL 07/11/21 07/11/21 Range/Units 15:15 11:27 WBC (4.8-10.8) x10^3/uL RBC (4.20-5.40) 10^6/uL Hgb (12.0-16.0) g/dL Hct (37.0-47.0) % MCV (81.0-99.0) fL MCH (27.0-31.0) pg MCHC (32.0-36.0) g/dL RDW (12.0-15.0) % Plt Count (130-450) 10^3/uL MPV (7.9-10.8) fL Neut # (Auto) (1.5-6.6) 10^3/uL Lymph # (Auto) (1.5-3.5) 10^3/uL [place] # (Auto) (0.0-1.0) 10^3/uL Eos # (Auto) (0.0-0.7) 10^3/uL Baso # (Auto) (0.0-0.1) 10^3/uL Absolute Nucleated RBC x10^3/uL Nucleated RBC % /100WBC Manual Slide Review WBC Morphology (NORMAL) Platelet Estimate (NORMAL) Platelet Morphology (NORMAL) RBC Morph Micro Appear (NORMAL) Sodium Potassium Chloride Carbon Dioxide Anion Gap BUN Creatinine Estimated GFR (MDRD) Glucose POC Whole Bld Glucose 152 H (70 - 100) mg/dL Calcium Phosphorus (2.5-4.6) mg/dL Magnesium (1.7-2.8) mg/dL Total Bilirubin (0.2-1.0) mg/dL AST (10-42) IU/L ALT (10-60) IU/L Alkaline Phosphatase (42-121) IU/L Total Protein (6.7-8.2) g/dL Albumin (3.2-5.5) g/dL Globulin (2.1-4.2) g/dL Albumin/Globulin Ratio (1.0-2.2) Prealbumin (18-45) mg/dL Vancomycin Trough 29.4 H* (10.0-20.0) ug/mL ABX Reporting Has patient been on IV antibiotics over the past 48 hours?: Yes Sepsis Event Note (H) - Evaluation Current Stage of Sepsis: Resolved (days ago since surgery) Possible source of Sepsis: positive: GI tract/intra-abdominal - Sepsis Criteria Sepsis Criteria: WBC count greater than 10% bands, SBP drop more than 40mHg, MAP less than 65 mmHg, SBP less than 90 mmHg, Renal: urine output less than 0.5m l/kg/hr for 2 hours or creatinine gr, Metabolic: lactate > 2 mmol/L Assessment/Plan - Problem List (1) Hospital-acquired pneumonia Impression: 07/09 she had a sudden drop in oxygen sats. She has had copious secretions even when she was intubated. Long strings of phlegm were being produced around the ET tube. Since extubation she has struggled w weak cough, and continued secretions. 07/09 had the sudden drop. Required increased 02. ABG confirmed mild hypercapnea with the hypoxia. The CXR confirmed worsening LLL pneumonia. I added Vancomycin and Levaquin to her Cefipime and surgery was ok w stopping the flagyll and diflucan. BiPap used for a short time but she was miserable w the mask leaking around the NG and the lack of fit around her chin. It worked but with the struggle I stopped it and tolerating Robinul is being used but not frequently. Night RN didn't use it. Was stable 07/10 am but by afternoon struggling to breath. Using acessory muscles in spite of O2. Knowing she did not do well w BiPap we intubated with Anesthesia. PICC line was placed as well. At this point she is very stable. I increased her diuresis yesterday with brisk urine output. I do not want to intravascularly deplete her so will lower Lasix dose. Plan: Day #3 reintubation emphasize secretion clearance Day #4/7 abx nebs Keep lasix at 40 bid until creat rises. Watch BP Acute respiratory failure requiring reintubation, recurred. Was kept intubated postop, w/o clear source evidence of PNA, Extubated on 07/05, 02 demand continue to go down, ddx: pulmonary edema, possibly iatrogenic ivf giv en in periop period, CHF. CXR 07/08 suggestive of worsening CHF. pt remained stable on RA since 07/06 but then lost ground 07/09 and had BiPap. Seemed to stabilize w treatment for HAP. Then intubated again 07/10. At this time stable respiratory status w ongoing tx for HAP and fluid overload. Anasarca Due to severe protein calorie malnutrition and fluid overload Assessment/Plan: grossly overloaded still from iatrogenic ivf given in periop period -continue diuresis with daily lasix 20mg iv qd increase to bid 07/07, July 06 she was -1200 cc. July 07 -2234 cc. July 08 -771 . July 09 -393. July 10 is +1813. Lasix increased to 40 bid from 20 bid July 11 +1072 Monitor UOP and Watch creat to make sure I don't put her behind. Perforated duodenal ulcer, Status post direct repair Heineke-Mikeleanor Pyloroplasty, Gram Patch POD #16 Assessment/Plan: s/p exploratory laparotomy with repair of posteriorly perforated duodenal ulcer on 06/26 by , course c/b septic shock, prolonged respiratory failure on vent, s/p extubated on 07/05. -Gastrografin challenge 07/09 was consistent with gastric outlet obstruction. Dr. Dobson hopes that this will resolve with conservative management.This may take an extended period of time to resolve. Some literature states as long as 6 weeks. -Leave NG tube in place and suction. Stop all meds thru NG. Given enemas from below 07/09 to try and get things moving. Surgeon would also like low-dose Reglan added. 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 Repeat UGI study done 07/11 and shows partial gastric outlet obstruction. Dr. Dobson opted to started very low rate tube feeds. Still on TPN. Reglan is prn and will change to fixed schedule since it does help according to RN Iron deficiency anemia Assessment/Plan: Started Iron 07/04, h/h slowly trending down wo signs of active bleeding, as per surgery, wound looks good without hematoma. plt count stable despite dvt ppx with LMWH, -h/h stable today, target hgb>7, transfuse as needed, -h/h seems to be trending up. Today hgb at 8.9. Ileus following gastrointestinal surgery Assessment/Plan: Reviewed abd xray Ileus seen Patient has received lactulose via NGT, but it does not appear to be helping per surgeon.Started low-dose Reglan 07/10. Because she had total lack of dye pa ssing w gastrograffin all NG input stopped 07/10 On review of followup films 07/08, dye in colon 24 hours later. Repeat dye study 07/12 still not completely open but no obstructed in colon. We are waiting to see when she opens up and it is a wait and see. Chronic, stable, resolved, Acute encephalopathy resolved Impression: pt still follows minimal commands, still lethargic since off on sedation in 10 AM but she does respond more and more, reportedly pt has poor cognitive function at baseline. -will continue to monitor mental status, consider starting PT eval for dispo once pt is more lucid. Acute peritonitis Resolved s/p perforated DU. Peritoneal fluid culture on 06/26 ngtd. BCX not available. shock resolved, off on vasopressor 10 AM. -completed cefipime, flagyl and diflucan per General Surgery and per note they were ok with change for HAP. Hypothyroidism Qualifiers: Hypothyroidism type: acquired Qualified Code(s): E03.9 - Hypothyroidism, unspecified Assessment/Plan: Continue synthroid. It was discontinued on July 05. Unclear what the reasoning was. However I have discussed with pharmacy and we are resuming 130 mcg on Mondays and . 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 Echo December 2019 had ejection fraction of 65 to 70%. Mild tricuspid regurgitation. RVSP was 43 mmHg. Echo January 2020 had ejection fraction of 55 to 60%. Echocardiogram done June 27, 2021 has an ejection fraction of 40 to 45% and her systolic function is globally impaired. Right ventricular pacing evident. Was placed in September 2020? Mild to moderate right ventricular enlargement. Moderate to severe mitral regurgitation. Moderate LAE, severe ORI. Septic shock, RESOLVED secondary to presumed intraabdominal infection s/p perforated DU. Peritoneal fluid culture on 06/26 ngtd. BCX not available. shock resolved, off on vasopressor 10/10 AM. DVT prophylaxis Lovenox continues
[2021-07-12] MEDS: SCOPOLAMINE PATCH TOP SCH (11:25)
[2021-07-12] MEDS: LEVOTHYROXINE 100 MCG VIAL IVP SCH (12:17)
--- NOTE | 2021-07-12 12:25 | PROVIDER PROGRESS NOTE ---
Subjective - Subjective Subjective: on vent. tolerating tube feeds at 25 per hour with low residual Objective - Vital Signs/Intake & Output Vital Signs: Vital Signs x48h Temp Pulse Pulse Resp BP Pulse Ox 07/12/21 11:59 79 16 103/42 L 100 07/12/21 11:00 36.0 C L 78 18 103/44 L 100 07/12/21 10:00 74 16 96/44 L 100 07/12/21 09:25 80 07/12/21 09:00 80 17 95/48 L 100 07/12/21 08:00 37.1 C 72 17 95/48 L 100 07/12/21 07:10 72 07/12/21 07:00 70 16 98/54 L 100 07/12/21 06:21 72 16 100/56 L 100 07/12/21 05:00 79 16 103/52 L 100 07/12/21 04:50 72 Intake & Output: Intake & Output 07/09/21 07/10/21 07/11/21 07/12/21 23:59 23:59 23:59 23:59 Intake Total 3533.75 4301.742 4642.037 2491.270 Output Total 3927 2488 3570 2080 Balance -393.25 3952.318 0249.037 411.270 - Objective General Appearance: positive: Other (on vent.) Abdomen: positive: Non-tender, No distention - Lab Results Fish Bones: 07/12/21 04:30 07/12/21 04:30 Other Labs: Lab Results x24hrs 07/12/21 07/12/21 07/12/21 Range/Units 11:27 06:26 04:30 WBC (4.8-10.8) x10^3/uL RBC (4.20-5.40) 10^6/uL Hgb (12.0-16.0) g/dL Hct (37.0-47.0) % MCV (81.0-99.0) fL MCH (27.0-31.0) pg MCHC (32.0-36.0) g/dL RDW (12.0-15.0) % Plt Count (130-450) 10^3/uL MPV (7.9-10.8) fL Neut # (Auto) (1.5-6.6) 10^3/uL Lymph # (Auto) (1.5-3.5) 10^3/uL [place] # (Auto) (0.0-1.0) 10^3/uL Eos # (Auto) (0.0-0.7) 10^3/uL Baso # (Auto) (0.0-0.1) 10^3/uL Absolute Nucleated RBC x10^3/uL Nucleated RBC % /100WBC Manual Slide Review WBC Morphology (NORMAL) Platelet Estimate (NORMAL) Platelet Morphology (NORMAL) RBC Morph Micro Appear (NORMAL) Sodium 137 Potassium 3.0 L Chloride 99 L Carbon Dioxide 28 Anion Gap 10.0 BUN 27 H Creatinine 0.5 Estimated GFR (MDRD) 119 Glucose 167 H POC Whole Bld Glucose 146 H 157 H (70 - 100) mg/dL Calcium 7.6 L Phosphorus 2.6 (2.5-4.6) mg/dL Magnesium 1.9 (1.7-2.8) mg/dL Total Bilirubin 0.6 (0.2-1.0) mg/dL AST 40 (10-42) IU/L ALT 24 (10-60) IU/L Alkaline Phosphatase 107 (42-121) IU/L Total Protein 5.1 L (6.7-8.2) g/dL Albumin 2.0 L (3.2-5.5) g/dL Globulin 3.1 (2.1-4.2) g/dL Albumin/Globulin Ratio 0.6 L (1.0-2.2) Prealbumin 23 (18-45) mg/dL Vancomycin Trough (10.0-20.0) ug/mL 07/12/21 07/12/21 07/12/21 Range/Units 04:30 04:30 00:08 WBC 5.7 (4.8-10.8) x10^3/uL RBC 3.00 L (4.20-5.40) 10^6/uL Hgb 8.9 L (12.0-16.0) g/dL Hct 28.1 L (37.0-47.0) % MCV 93.7 (81.0-99.0) fL MCH 29.7 (27.0-31.0) pg MCHC 31.7 L (32.0-36.0) g/dL RDW 22.6 H (12.0-15.0) % Plt Count 317 (130-450) 10^3/uL MPV 10.4 (7.9-10.8) fL Neut # (Auto) 3.1 (1.5-6.6) 10^3/uL Lymph # (Auto) 1.4 L (1.5-3.5) 10^3/uL [place] # (Auto) 0.6 (0.0-1.0) 10^3/uL Eos # (Auto) 0.4 (0.0-0.7) 10^3/uL Baso # (Auto) 0.1 (0.0-0.1) 10^3/uL Absolute Nucleated RBC 0.00 x10^3/uL Nucleated RBC % 0.0 /100WBC Manual Slide Review Indicated WBC Morphology NORMAL APPEARANCE (NORMAL) Platelet Estimate NORMAL (130-450,000) (NORMAL) Platelet Morphology NORMAL APPEARANCE (NORMAL) RBC Morph Micro Appear 2+ ANISOCYTOSIS (NORMAL) Sodium Cancelled Potassium Cancelled Chloride Cancelled Carbon Dioxide Cancelled Anion Gap Cancelled BUN Cancelled Creatinine Cancelled Estimated GFR (MDRD) Cancelled Glucose Cancelled POC Whole Bld Glucose 155 H (70 - 100) mg/dL Calcium Cancelled Phosphorus (2.5-4.6) mg/dL Magnesium (1.7-2.8) mg/dL Total Bilirubin (0.2-1.0) mg/dL AST (10-42) IU/L ALT (10-60) IU/L Alkaline Phosphatase (42-121) IU/L Total Protein (6.7-8.2) g/dL Albumin (3.2-5.5) g/dL Globulin (2.1-4.2) g/dL Albumin/Globulin Ratio (1.0-2.2) Prealbumin (18-45) mg/dL Vancomycin Trough (10.0-20.0) ug/mL 07/11/21 07/11/21 Range/Units 18:46 15:15 WBC (4.8-10.8) x10^3/uL RBC (4.20-5.40) 10^6/uL Hgb (12.0-16.0) g/dL Hct (37.0-47.0) % MCV (81.0-99.0) fL MCH (27.0-31.0) pg MCHC (32.0-36.0) g/dL RDW (12.0-15.0) % Plt Count (130-450) 10^3/uL MPV (7.9-10.8) fL Neut # (Auto) (1.5-6.6) 10^3/uL Lymph # (Auto) (1.5-3.5) 10^3/uL [place] # (Auto) (0.0-1.0) 10^3/uL Eos # (Auto) (0.0-0.7) 10^3/uL Baso # (Auto) (0.0-0.1) 10^3/uL Absolute Nucleated RBC x10^3/uL Nucleated RBC % /100WBC Manual Slide Review WBC Morphology (NORMAL) Platelet Estimate (NORMAL) Platelet Morphology (NORMAL) RBC Morph Micro Appear (NORMAL) Sodium Potassium Chloride Carbon Dioxide Anion Gap BUN Creatinine Estimated GFR (MDRD) Glucose POC Whole Bld Glucose 137 H (70 - 100) mg/dL Calcium Phosphorus (2.5-4.6) mg/dL Magnesium (1.7-2.8) mg/dL Total Bilirubin (0.2-1.0) mg/dL AST (10-42) IU/L ALT (10-60) IU/L Alkaline Phosphatase (42-121) IU/L Total Protein (6.7-8.2) g/dL Albumin (3.2-5.5) g/dL Globulin (2.1-4.2) g/dL Albumin/Globulin Ratio (1.0-2.2) Prealbumin (18-45) mg/dL Vancomycin Trough 29.4 H* (10.0-20.0) ug/mL - Diagnostic Imaging Diagnostic Imaging Results: positive: Read independently (no gastric outlet obstruction or bowel obstruction) Sepsis Event Note (H) - Evaluation Current Stage of Sepsis: Resolved (days ago since surgery) Possible source of Sepsis: positive: GI tract/intra-abdominal - Sepsis Criteria Sepsis Criteria: WBC count greater than 10% bands, SBP drop more than 40mHg, MAP less than 65 mmHg, SBP less than 90 mmHg, Renal: urine output less than 0.5ml/kg/hr for 2 hours or creatinine gr, Metabolic: lactate > 2 mmol/L Assessment/Plan - Problem List (1) Perforated duodenal ulcer Impression: agree with current care with very slowly advancing tube feeds and checking residuals.
--- NOTE | 2021-07-12 12:38 | XRAY Report ---
PROCEDURE: Abdomen 1 View X-Ray INDICATIONS: followup of dye in stomach TECHNIQUE: 1 view of the abdomen were acquired. COMPARISON: July 11, 2021 FINDINGS: ABDOMEN: Nonspecific bowel gas pattern. An enteric tube extends into the left upper quadrant. Enteric contrast is seen throughout the colon. BONES/SOFT TISSUES: No acute abnormality. IMPRESSION: 1.Passage of enteric contrast within the colon. Reviewed by: Bonifacio Worley MD on 07/12/2021 12:37 PM PDT Approved by: Bonifacio Worley MD on 07/12/2021 12:37 PM PDT Station ID: [id number]
[2021-07-12] MEDS: levoFLOXacin 750 MG/150 ML 750 MG/150 ML BAG IV SCH (16:00)
[2021-07-12] MEDS: VANCOMYCIN INJ 1 GM in SODIUM CHLORIDE 0.9% 250 ML IV SCH (17:30)
--- NOTE | 2021-07-12 18:05 | ADVANCE CARE PLANNING NOTE ---
Advance Care Planning - Planning Encounter Date: 07/12/21 Time: 18:03 Purpose: establsih care goals At sister's request. Katie Massey asked me to give her a call at [phone] Parties in Attendance: sister Katie Massey [phone] Decisional Capacity of the Patient: Unable to ascertain. Intubated on Precedex. In the past, even with cognitive deficit, she was given the authority to be her own healthcare authority. She has a immigration case manager named Yfn and her sister is Katie Massey. - Diagnosis for Encounter (10) Schizophrenia Qualifiers: Schizophrenia type: unspecified Qualified Code(s): F20.9 - Schizophrenia, unspecified Summary: This is a 81-year-old lady who has had developmental delay and schizophrenia for most of her adult life. She has been in a chcf and very well taking care of. Her care provider has been Henny. Her sister is Katie, and the patient does not do well when she is not at her chcf. With this current hospitalization, her sister is very fearful this patient will not do well if she recovers. - Encounter Subjective/Patient's Story: She lives in a prison and has been hospitalized many times. Each time she has been able to return back to her prison. At one point she was very sick and needed to be transferred to [facility]. From [place] it was hoped that she would get physical therapy and rehab at a assisted facility but the patient was exceedingly unhappy, uncooperative. As such she was sent back to her prison and cannula was able to do "miracle work" to get Ms. Rodgers back to baseline. With this admission she had sudden onset of abdominal pain and was found to have a perforated duodenal ulcer. She has now been in the hospital for 17 days with a jordyn course. Sister has been praying on this. She thinks that Felisha will not do well even if she recovers. She is going to need long-term rehab and she does know Felisha will do well psychologically if she has to do that outside the prison. As such she is thinking that if Felisha does not get better in the next 48 hours and has some signs of improvement, she may ask for transition to hospice. Vilma would like her discharged back to the prison under the care of cannula. She is discussed this with Yfn, the immigration case manager. 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 Multiple admissions to our hospital for various causes such as pneumonia, DVT, congestive heart failure, arrhythmia. Her last admission prior to June 26 was September 2020 for acute on chronic diastolic heart failure and new onset atrial fibrillation. She was transferred to [facility] when her atrial fibrillation was also associated with sinus pauses of up to 7 seconds. She had a pacer placed. With this admission there was sudden onset of abdominal pain. She had a ruptured duodenal ulcer. Underwent surgery. Postoperative course marked by severe protein calorie malnutrition, copious pulmonary secretions, and slowly responsive bowel that has not really opened up/postoperative ileus. Has copious secretions resulted in reintubation as well as hospital-acquired pneumonia. She is on a ventilator, getting TPN and very slow trickle of tube feeds. She is borderline hypotensive. Requiring quite a bit of diuresis for anasarca. Requiring electrolyte replacement. No transfusions yet. Goals of Care: She will like to see her return to her chcf. She would like to see her return to her previous baseline status of ambulating with a walker. But she knows that that would be a long hard road between his current situation and then. If the patient does not improve over the next 48 hours, she thinks that the immigration case manager and herself will asked the patient to be discharged to the chcf with hospice care. Plan: Continue current supportive care of antibiotics, ventilator, IV fluids, TPN and see how she does. Reassess the patient Thursday morning. Today is Thursday Code Status: Do Not Attempt Resuscitation Time spent on advance care plannin minutes
[2021-07-12] MEDS: FAT EMUL/SOY/MCT/OLIV/FISH OIL 50 GM/250 ML BAG IV SCH (18:48)
[2021-07-12] MEDS: TPN (CLINIMIX E 5/15) 2,000 ML with MULTIVITAMIN 10 ML, TRACE ELEMENTS 1 ML IV SCH ×3 (18:49)
[2021-07-12] MEDS: GLYCOPYRROLATE 1 MG/5 ML VIAL SUBQ PRN (20:12)
[2021-07-13] MEDS: SODIUM CHLORIDE FLUSH 0.9% 10 ML SYRINGE IVP SCH ×4 (01:49→23:40)
[2021-07-13] MEDS: DEXMEDETOMIDINE 400 MCG in SODIUM CHLORIDE 0.9% 100ML 96 ML IV PRN ×6 (02:42→20:09)
[2021-07-13] MEDS: HYDROmorphone 0.5 MG/0.5 ML SYRINGE IVP PRN ×4 (02:43→21:10)
[2021-07-13] MEDS ORDERED: LACTATED RINGERS 1,000 ML IV ONE (02:47)
[2021-07-13 03:25] LABS: BASOPHILS # (AUTO) 0.1 10^3/uL (0.0-0.1); BASOPHILS % (AUTO) 0.8 %; EOSINOPHILS # (AUTO) 0.5 10^3/uL (0.0-0.7); LYMPHOCYTES # (AUTO) 1.8 10^3/uL (1.5-3.5); LYMPHOCYTES % (AUTO) 21.8 %; MEAN CORPUSCULAR HEMOGLOBIN 29.8 pg (27.0-31.0); MEAN CORPUSCULAR HGB CONC 31.3 g/dL (32.0-36.0); MEAN CORPUSCULAR VOLUME 95.2 fL (81.0-99.0); MEAN PLATELET VOLUME 10.2 fL (7.9-10.8); MONOCYTES # (AUTO) 0.7 10^3/uL (0.0-1.0); MONOCYTES % (AUTO) 7.9 %; NEUTROPHILS # (AUTO) 4.9 10^3/uL (1.5-6.6); NEUTROPHILS % (AUTO) 59.3 %; PLT - PLATELET COUNT 347 10^3/uL (130-450); RED BLOOD COUNT 3.36 10^6/uL (4.20-5.40); RED CELL DISTRIBUTION WIDTH 22.8 % (12.0-15.0); WHITE BLOOD COUNT 8.3 x10^3/uL (4.8-10.8)
[2021-07-13 03:26] LABS: SLIDE REVIEW? Indicated
[2021-07-13 03:33] LABS: CALCIUM 7.9 mg/dL (8.5-10.3); CREATININE 0.6 mg/dL (0.4-1.0); POTASSIUM 3.7 mmol/L (3.5-5.0)
[2021-07-13 03:49] LABS: PLATELET ESTIMATE, MANUAL NORMAL (130-450,000) (NORMAL); PLATELET MORPHOLOGY NORMAL APPEARANCE (NORMAL); RBC MORPHOLOGY (MULTIPLE) 2+ ANISOCYTOSIS (NORMAL); WBC MORPHOLOGY (MULTIPLE) NORMAL APPEARANCE (NORMAL)
[2021-07-13] MEDS: LORazepam 2 MG/ML VIAL IVP PRN ×3 (04:02→23:23)
[2021-07-13] MEDS: METOCLOPRAMIDE 10 MG/2 ML VIAL IVP SCH ×4 (05:05→23:40)
[2021-07-13] MEDS: PANTOPRAZOLE 40 MG VIAL IVP SCH (06:11)
[2021-07-13] MEDS: CEFEPIME 2 GM in SODIUM CHLORIDE 0.9% MINIBAG 100 ML IV SCH ×2 (08:30→20:09)
[2021-07-13] MEDS: ENOXAPARIN 40 MG/0.4 ML SYRINGE SUBQ SCH (08:33)
[2021-07-13] MEDS: CHLORHEXIDINE GLUCONATE 15 ML UDC PO SCH ×2 (08:34→20:09)
[2021-07-13] MEDS: VANCOMYCIN INJ 1 GM in SODIUM CHLORIDE 0.9% 250 ML IV SCH (10:51)
--- NOTE | 2021-07-13 15:47 | PROVIDER PROGRESS NOTE ---
Subjective - General Admit Date: 06/26/21 Procedure Date: 06/26/21 Post Op Days: 17 Procedure Performed: Exploratory laparotomy with repair of posterior duodenal ulcer - Review of Systems Wound/Incisions: positive: Healing well Drain Type: 19 Thai Tanner Drain Output Description: Serosanguineous - Other Other Information/Narrative: Stable on the vent. Has not had a bowel movement. Back on pressors. Tube feed residual was high today at 200. Recheck 4 hours later was 80. Objective - Patient Data Vital Signs: Vital Signs x48h Temp Pulse Pulse Resp BP Pulse Ox 07/13/21 15:00 81 15 102/48 L 100 07/13/21 14:30 78 12 101/51 L 100 07/13/21 14:00 78 12 105/41 L 100 07/13/21 13:35 76 07/13/21 13:00 81 12 96/54 L 100 07/13/21 12:00 36.2 C L 82 16 118/71 100 07/13/21 11:29 82 07/13/21 11:00 75 14 101/46 L 100 07/13/21 10:00 81 16 102/48 L 100 07/13/21 09:37 80 07/13/21 09:00 75 16 102/51 L 100 07/13/21 08:00 36.7 C 83 12 129/48 L 100 Weight: Weight 07/11/21 07/12/21 07/13/21 23:59 23:59 23:59 Weight (kg) 87.5 kg 86 kg Intake & Output: Intake and Output Totals x24h 07/11/21 07/12/21 07/13/21 23:59 23:59 23:59 Intake Total 4642.037 4269.739 3412.761 Output Total 3570 3785 1750 Balance 1072.037 224.899 7689.761 - Lab Results Lab Results: 07/13/21 03:18 07/13/21 03:18 Other Lab Results: Lab Results x24hrs 07/13/21 07/13/21 07/13/21 Range/Units 12:23 03:18 03:18 WBC 8.3 (4.8-10.8) x10^3/uL RBC 3.36 L (4.20-5.40) 10^6/uL Hgb 10.0 L (12.0-16.0) g/dL Hct 32.0 L (37.0-47.0) % MCV 95.2 (81.0-99.0) fL MCH 29.8 (27.0-31.0) pg MCHC 31.3 L (32.0-36.0) g/dL RDW 22.8 H (12.0-15.0) % Plt Count 347 (130-450) 10^3/uL MPV 10.2 (7.9-10.8) fL Neut # (Auto) 4.9 (1.5-6.6) 10^3/uL Lymph # (Auto) 1.8 (1.5-3.5) 10^3/uL [place] # (Auto) 0.7 (0.0-1.0) 10^3/uL Eos # (Auto) 0.5 (0.0-0.7) 10^3/uL Baso # (Auto) 0.1 (0.0-0.1) 10^3/uL Absolute Nucleated RBC 0.00 x10^3/uL Nucleated RBC % 0.0 /100WBC Manual Slide Review Indicated WBC Morphology NORMAL APPEARANCE (NORMAL) Platelet Estimate NORMAL (130-450,000) (NORMAL) Platelet Morphology NORMAL APPEARANCE (NORMAL) RBC Morph Micro Appear 2+ ANISOCYTOSIS (NORMAL) Sodium 137 (135-145) mmol/L Potassium 3.7 (3.5-5.0) mmol/L Chloride 101 (101-111) mmol/L Carbon Dioxide 26 (21-32) mmol/L Anion Gap 10.0 (6-13) BUN 26 H (6-20) mg/dL Creatinine 0.6 (0.4-1.0) mg/dL Estimated GFR (MDRD) 96 (>89) Glucose 161 H (70-100) mg/dL POC Whole Bld Glucose 147 H (70 - 100) mg/dL Lactic Acid (0.5-2.2) mmol/L Calcium 7.9 L (8.5-10.3) mg/dL 07/13/21 07/12/21 07/12/21 Range/Units 03:18 23:44 18:31 WBC (4.8-10.8) x10^3/uL RBC (4.20-5.40) 10^6/uL Hgb (12.0-16.0) g/dL Hct (37.0-47.0) % MCV (81.0-99.0) fL MCH (27.0-31.0) pg MCHC (32.0-36.0) g/dL RDW (12.0-15.0) % Plt Count (130-450) 10^3/uL MPV (7.9-10.8) fL Neut # (Auto) (1.5-6.6) 10^3/uL Lymph # (Auto) (1.5-3.5) 10^3/uL [place] # (Auto) (0.0-1.0) 10^3/uL Eos # (Auto) (0.0-0.7) 10^3/uL Baso # (Auto) (0.0-0.1) 10^3/uL Absolute Nucleated RBC x10^3/uL Nucleated RBC % /100WBC Manual Slide Review WBC Morphology (NORMAL) Platelet Estimate (NORMAL) Platelet Morphology (NORMAL) RBC Morph Micro Appear (NORMAL) Sodium (135-145) mmol/L Potassium (3.5-5.0) mmol/L Chloride (101-111) mmol/L Carbon Dioxide (21-32) mmol/L Anion Gap (6-13) BUN (6-20) mg/dL Creatinine (0.4-1.0) mg/dL Estimated GFR (MDRD) (>89) Glucose (70-100) mg/dL POC Whole Bld Glucose 125 H 130 H (70 - 100) mg/dL Lactic Acid 1.7 (0.5-2.2) mmol/L Calcium (8.5-10.3) mg/dL - Current Medications Current Medications: Current Medications Generic Name Dose Route Start Last Admin Trade Name Freq PRN Reason Stop Dose Admin Chlorhexidine Gluconate 15 ml 06/27/21 21:00 07/13/21 08:34 Chlorhexidine Gluconate 15 Ml Udc PO 15 ml BID JULIETA Administration Enoxaparin Sodium 40 mg 06/28/21 09:00 07/13/21 08:33 Enoxaparin 40 Mg/0.4 Ml Syringe SUBQ 40 mg DAILY JULIETA Administration Glycopyrrolate 0.2 mg 06/28/21 21:17 07/12/21 20:12 Glycopyrrolate 1 Mg/5 Ml Vial SUBQ 0.2 mg Q6H PRN Administration Excessive Secretions Hydromorphone HCl 0.5 mg 07/06/21 22:57 07/13/21 11:16 Hydromorphone 0.5 Mg/0.5 Ml Syringe IVP 0.5 mg Q3H PRN Administration PAIN Sodium Chloride 500 mls @ 20 mls/hr 06/26/21 23:03 07/12/21 18:53 Normal Saline 0.9% IV 20 mls/hr Q24H PRN Infusion TKO RATE Multivitamins 10 ml/ TRACE 2,011 mls @ 42 mls/hr 06/27/21 19:00 07/12/21 18:49 ELEMENTS 1 ml/ Amino Ac/ IV 42 mls/hr Electrol/Dextrose/Calcium Q24H JULIETA Administration Protocol Cefepime HCl 2 gm/ Sodium 100 mls @ 200 mls/hr 06/27/21 18:00 07/13/21 09:35 Chloride IV Infused BID JULIETA Infusion Fat Emulsion-Soy/MCT/[place]/Fish Oil 50 gm in 250 mls @ 21 mls/hr 07/05/21 19:00 07/13/21 06:44 Smoflipid 20% Iv Fat Emulsion IV Infused 1900 JULIETA Infusion Levofloxacin 750 mg in 150 mls @ 100 mls/hr 07/09/21 15:00 07/12/21 17:30 Levaquin 750 Mg/150 Ml IV Infused Q24H JULIETA Infusion Norepinephrine Bitartrate 8 mg 250 mls @ 15 mls/hr 07/10/21 12:00 07/13/21 14:15 / Dextrose IV 8 mcg/min .[id number] JULIETA 15 mls/hr Titration Protocol 8 MCG/MIN Dexmedetomidine HCl 400 mcg/ 100 mls @ 4.325 mls/hr 07/10/21 11:20 07/13/21 13:20 Sodium Chloride IV 1.5 mcg/kg/hr .Q23H8M PRN 32.438 mls/hr Agitation Administration Protocol 0.2 MCG/KG/HR Vancomycin HCl 1 gm/ Sodium 250 mls @ 167 mls/hr 07/11/21 22:00 07/13/21 13:20 Chloride IV Infused Q18H JULIETA Infusion Levothyroxine Sodium 130 mcg 07/12/21 12:00 07/12/21 12:17 Levothyroxine 100 Mcg Vial IVP 130 mcg MoTh@0700 JULIETA Administration Lorazepam 0.5 mg 06/26/21 20:54 07/13/21 04:02 Lorazepam 2 Mg/Ml Vial IVP 0.5 mg Q1H PRN Administration Anxiety Metoclopramide HCl 5 mg 07/12/21 10:00 07/13/21 12:37 Metoclopramide 10 Mg/2 Ml Vial IVP 5 mg Q6HR JULIETA Administration Mineral Oil 1 applic 07/01/21 01:24 07/06/21 20:24 Min Oil/Dimethicon/Coconut Oil 92 Gm Tube TOP 1 ea PRN PRN Administration Skin Care Pantoprazole Sodium 40 mg 06/27/21 07:00 07/13/21 06:11 Pantoprazole 40 Mg Vial IVP 40 mg QDAC JULIETA Administration Phenol/Menthol 2 sprays 07/05/21 21:24 07/07/21 11:03 Phenol Throat [place] 177 Ml MM 2 sprays Q2HR PRN Administration Throat Pain Sodium Chloride 10 ml 06/27/21 01:00 07/13/21 09:10 Sodium Chloride Flush 0.9% 10 Ml Syringe IVP 10 ml 0100,0900,1700 JULIETA Administration Sodium Chloride 10 ml 06/26/21 20:54 07/12/21 06:23 Sodium Chloride Flush 0.9% 10 Ml Syringe IVP 10 ml PRN PRN Administration NEEDED PER PROVIDER ORDERS Sodium Chloride 20 ml 06/26/21 23:03 07/12/21 04:29 Sodium Chloride Flush 0.9% 10 Ml Syringe IVP 20 ml PRN PRN Administration After Blood Draw - Physical Exam Abdomen: positive: Non-tender, Nml bowel sounds, No distention ABX Reporting Has patient been on IV antibiotics over the past 48 hours?: Yes Impression/Plan - Problem List Problem List: 1. Hold tube feeds and resume in the AM at 25/hr. 2. Dulcolax suppository
[2021-07-13] MEDS: levoFLOXacin 750 MG/150 ML 750 MG/150 ML BAG IV SCH (15:58)
--- NOTE | 2021-07-13 16:55 | PROVIDER PROGRESS NOTE ---
Subjective - Prog Note Date Prog Note Date: 07/13/21 Prog Note Time: 16:53 - Subjective Subjective: Overnight she had another hypotension that she required a liter of fluid, Lasix stopped, and she is now on increasing Levophed doses. Current Medications - Current Medications Current Medications: Active Medications Benzocaine/Butamben/Tetracaine HCl (Benzocaine/Tetracaine/Butamben 20 Gm) 1 sprays MM DAILY PRN PRN Reason: Throat Pain Bisacodyl (Bisacodyl 10 Mg Supp) 10 mg VA DAILY JULIETA Chlorhexidine Gluconate (Chlorhexidine Gluconate 15 Ml Udc) 15 ml PO BID JULIETA Last Admin: 07/13/21 08:34 Dose: 15 ml Documented by: Enoxaparin Sodium (Enoxaparin 40 Mg/0.4 Ml Syringe) 40 mg SUBQ DAILY [facility] Last Admin: 07/13/21 08:33 Dose: 40 mg Documented by: Glycopyrrolate (Glycopyrrolate 1 Mg/5 Ml Vial) 0.2 mg SUBQ Q6H PRN PRN Reason: Excessive Secretions Last Admin: 07/12/21 20:12 Dose: 0.2 mg Documented by: Hydromorphone HCl (Hydromorphone 0.5 Mg/0.5 Ml Syringe) 0.5 mg IVP Q3H PRN PRN Reason: PAIN Last Admin: 07/13/21 11:16 Dose: 0.5 mg Documented by: Sodium Chloride (Normal Saline 0.9%) 500 mls @ 20 mls/hr IV Q24H PRN PRN Reason: TKO RATE Last Infusion: 07/12/21 18:53 Dose: 20 mls/hr Documented by: Multivitamins 10 ml/ TRACE ELEMENTS 1 ml/ Amino Ac/Electrol/Dextrose/Calcium 2,011 mls @ 42 mls/hr IV Q24H JULIETA; Protocol Last Admin: 07/12/21 18:49 Dose: 42 mls/hr Documented by: Cefepime HCl 2 gm/ Sodium (Chloride) 100 mls @ 200 mls/hr IV BID JULIETA Last Infusion: 07/13/21 09:35 Dose: Infused Documented by: Fat Emulsion-Soy/MCT/[place]/Fish Oil (Smoflipid 20% Iv Fat Emulsion) 50 gm in 250 mls @ 21 mls/hr IV 1900 JULIETA Last Infusion: 07/13/21 06:44 Dose: Infused Documented by: Levofloxacin (Levaquin 750 Mg/150 Ml) 750 mg in 150 mls @ 100 mls/hr IV Q24H [facility] Last Admin: 07/13/21 15:58 Dose: 100 mls/hr Documented by: Norepinephrine Bitartrate 8 mg (/ Dextrose) 250 mls @ 15 mls/hr IV .[id number] [facility]; Protocol Last Titration: 07/13/21 14:15 Dose: 8 mcg/min, 15 mls/hr Documented by: Dexmedetomidine HCl 400 mcg/ (Sodium Chloride) 100 mls @ 4.325 mls/hr IV .Q23H8M PRN; Protocol PRN Reason: Agitation Last Admin: 07/13/21 16:28 Dose: 1.5 mcg/kg/hr, 32.438 mls/hr Documented by: Vancomycin HCl 1 gm/ Sodium (Chloride) 250 mls @ 167 mls/hr IV Q18H [facility] Last Infusion: 07/13/21 13:20 Dose: Infused Documented by: Levothyroxine Sodium (Levothyroxine 100 Mcg Vial) 130 mcg IVP MoTh@0700 [facility] Last Admin: 07/12/21 12:17 Dose: 130 mcg Documented by: Lorazepam (Lorazepam 2 Mg/Ml Vial) 0.5 mg IVP Q1H PRN PRN Reason: Anxiety Last Admin: 07/13/21 04:02 Dose: 0.5 mg Documented by: Metoclopramide HCl (Metoclopramide 10 Mg/2 Ml Vial) 5 mg IVP Q6HR [facility] Last Admin: 07/13/21 12:37 Dose: 5 mg Documented by: Mineral Oil (Min Oil/Dimethicon/Coconut Oil 92 Gm Tube) 1 applic TOP PRN PRN PRN Reason: Skin Care Last Admin: 07/06/21 20:24 Dose: 1 ea Documented by: Ondansetron HCl (Ondansetron 4 Mg/2 Ml Vial) 4 mg IVP Q6H PRN PRN Reason: Nausea / Vomiting Pantoprazole Sodium (Pantoprazole 40 Mg Vial) 40 mg IVP QDAC [facility] Last Admin: 07/13/21 06:11 Dose: 40 mg Documented by: Phenol/Menthol (Phenol Throat [place] 177 Ml) 2 sprays MM Q2HR PRN PRN Reason: Throat Pain Last Admin: 07/07/21 11:03 Dose: 2 sprays Documented by: Sodium Chloride (Sodium Chloride Flush 0.9% 10 Ml Syringe) 10 ml IVP 0100,0900,1700 JULIETA Last Admin: 07/13/21 09:10 Dose: 10 ml Documented by: Sodium Chloride (Sodium Chloride Flush 0.9% 10 Ml Syringe) 10 ml IVP PRN PRN PRN Reason: NEEDED PER PROVIDER ORDERS Last Admin: 07/12/21 06:23 Dose: 10 ml Documented by: Sodium Chloride (Sodium Chloride Flush 0.9% 10 Ml Syringe) 20 ml IVP PRN PRN PRN Reason: After Blood Draw Last Admin: 07/12/21 04:29 Dose: 20 ml Documented by: Levothyroxine [Synthroid] 75 mcg PO QDAC 07/22/19 Simvastatin [Zocor] 20 mg PO QPM 07/22/19 Torsemide 40 mg PO DAILY 07/22/19 Potassium Chloride 10 meq PO DAILY 01/11/20 EPINEPHrine [Epipen Jr] 0.3 mg IM ONCE PRN 04/12/20 traZODone [Desyrel] 200 mg PO QPM 04/12/20 Meloxicam [Mobic] 7.5 mg PO BID 10/21/20 QUEtiapine [SEROquel] 100 mg PO BID 10/21/20 Objective - Vital Signs/Intake & Output Reviewed Vital Signs: Yes Vital Signs: Vital Signs x48h Temp Pulse Pulse Resp BP Pulse Ox 07/13/21 16:00 80 12 108/51 L 100 07/13/21 15:58 76 07/13/21 15:00 81 15 102/48 L 100 07/13/21 14:30 78 12 101/51 L 100 07/13/21 14:00 78 12 105/41 L 100 07/13/21 13:35 76 07/13/21 13:00 81 12 96/54 L 100 07/13/21 12:00 36.2 C L 82 16 118/71 100 07/13/21 11:29 82 07/13/21 11:00 75 14 101/46 L 100 07/13/21 10:00 81 16 102/48 L 100 07/13/21 09:37 80 07/13/21 09:00 75 16 102/51 L 100 Intake & Output: Intake & Output 07/10/21 07/11/21 07/12/21 07/13/21 23:59 23:59 23:59 23:59 Intake Total 4301.742 4642.037 4269.739 3512.761 Output Total 2488 3570 3785 1825 Balance 3643.199 0578.037 302.926 9002.761 - Objective General Appearance: positive: Other (Intubated, on Precedex. No longer opening her eyes.) ENT: positive: No signs of dehydration Neck: positive: No JVD. negative: Stiff neck Respiratory: positive: No respiratory distress, Rhonchi, Other (We have changed her to SIMV. Initially she was not breathing above the vent and has been gradually improving her respiratory drive through the course of the day.). negative: Wheezes, Rales Cardiovascular: positive: Irregularly irregular. negative: Gallop/S4, Friction rub Abdomen: positive: No organomegaly, No distention, Abnml bowel sounds (Hypoactive bowel sounds with residual of over 200 cc in her stomach) Skin: positive: Warm, Dry, Pallor Extremities: positive: Pedal edema (And anasarca) - Lab Results Fish Bones: 07/13/21 03:18 07/13/21 03:18 Other Labs: Lab Results x24hrs 07/13/21 07/13/21 07/13/21 Range/Units 12:23 03:18 03:18 WBC 8.3 (4.8-10.8) x10^3/uL RBC 3.36 L (4.20-5.40) 10^6/uL Hgb 10.0 L (12.0-16.0) g/dL Hct 32.0 L (37.0-47.0) % MCV 95.2 (81.0-99.0) fL MCH 29.8 (27.0-31.0) pg MCHC 31.3 L (32.0-36.0) g/dL RDW 22.8 H (12.0-15.0) % Plt Count 347 (130-450) 10^3/uL MPV 10.2 (7.9-10.8) fL Neut # (Auto) 4.9 (1.5-6.6) 10^3/uL Lymph # (Auto) 1.8 (1.5-3.5) 10^3/uL Evangeline # (Auto) 0.7 (0.0-1.0) 10^3/uL Eos # (Auto) 0.5 (0.0-0.7) 10^3/uL Baso # (Auto) 0.1 (0.0-0.1) 10^3/uL Absolute Nucleated RBC 0.00 x10^3/uL Nucleated RBC % 0.0 /100WBC Manual Slide Review Indicated WBC Morphology NORMAL APPEARANCE (NORMAL) Platelet Estimate NORMAL (130-450,000) (NORMAL) Platelet Morphology NORMAL APPEARANCE (NORMAL) RBC Morph Micro Appear 2+ ANISOCYTOSIS (NORMAL) Sodium 137 (135-145) mmol/L Potassium 3.7 (3.5-5.0) mmol/L Chloride 101 (101-111) mmol/L Carbon Dioxide 26 (21-32) mmol/L Anion Gap 10.0 (6-13) BUN 26 H (6-20) mg/dL Creatinine 0.6 (0.4-1.0) mg/dL Estimated GFR (MDRD) 96 (>89) Glucose 161 H (70-100) mg/dL POC Whole Bld Glucose 147 H (70 - 100) mg/dL Lactic Acid (0.5-2.2) mmol/L Calcium 7.9 L (8.5-10.3) mg/dL 07/13/21 07/12/21 07/12/21 Range/Units 03:18 23:44 18:31 WBC (4.8-10.8) x10^3/uL RBC (4.20-5.40) 10^6/uL Hgb (12.0-16.0) g/dL Hct (37.0-47.0) % MCV (81.0-99.0) fL MCH (27.0-31.0) pg MCHC (32.0-36.0) g/dL RDW (12.0-15.0) % Plt Count (130-450) 10^3/uL MPV (7.9-10.8) fL Neut # (Auto) (1.5-6.6) 10^3/uL Lymph # (Auto) (1.5-3.5) 10^3/uL Evangeline # (Auto) (0.0-1.0) 10^3/uL Eos # (Auto) (0.0-0.7) 10^3/uL Baso # (Auto) (0.0-0.1) 10^3/uL Absolute Nucleated RBC x10^3/uL Nucleated RBC % /100WBC Manual Slide Review WBC Morphology (NORMAL) Platelet Estimate (NORMAL) Platelet Morphology (NORMAL) RBC Morph Micro Appear (NORMAL) Sodium (135-145) mmol/L Potassium (3.5-5.0) mmol/L Chloride (101-111) mmol/L Carbon Dioxide (21-32) mmol/L Anion Gap (6-13) BUN (6-20) mg/dL Creatinine (0.4-1.0) mg/dL Estimated GFR (MDRD) (>89) Glucose (70-100) mg/dL POC Whole Bld Glucose 125 H 130 H (70 - 100) mg/dL Lactic Acid 1.7 (0.5-2.2) mmol/L Calcium (8.5-10.3) mg/dL ABX Reporting Has patient been on IV antibiotics over the past 48 hours?: Yes Sepsis Event Note (H) - Evaluation Current Stage of Sepsis: Resolved (days ago since surgery) Possible source of Sepsis: positive: GI tract/intra-abdominal - Sepsis Criteria Sepsis Criteria: WBC count greater than 10% bands, SBP drop more than 40mHg, MAP less than 65 mmHg, SBP less than 90 mmHg, Renal: urine output less than 0.5ml/kg/hr for 2 hours or creatinine gr, Metabolic: lactate > 2 mmol/L Assessment/Plan - Problem List (1) Hospital-acquired pneumonia Impression: 07/09 she had a sudden drop in oxygen sats. She has had copious secretions even when she was intubated. Long strings of phlegm were being produced around the ET tube. Since extubation she has struggled w weak cough, and continued secretions. 07/09 had the sudden drop. Required increased 02. ABG confirmed mild hypercapnea with the hypoxia. The CXR confirmed worsening LLL pneumonia. I added Vancomycin and Levaquin to her Cefipime and surgery was ok w stopping the flagyll and diflucan. BiPap used for a short time but she was miserable w the mask leaking around the NG and the lack of fit around her chin. It worked but with the struggle I stopped it and tolerating Robinul is being used but not frequently. Night RN didn't use it. Was stable 07/10 am but by afternoon struggling to breath. Using acessory muscles in spite of O2. Knowing she did not do well w BiPap we intubated with Anesthesia. PICC line was placed as well. She started getting hypotensive again 24 to 36 hours ago. Back on Levophed. I had increased her Lasix to increase her urine output. Then reduced her Lasix wondering if this was causing hypotension. She received a liter of fluid and Levophed has been maintained to keep a mean arterial pressure of 65. In the back of our minds is the request of her sister to see how she does this weekend. On Thursday if she is not significantly improved (July 15) her sister and the leather case finisher may opt to transition her to hospice. Discharge will be back to her skilled nursing under the care of Henny and hospice. Plan: Day #4 reintubation emphasize secretion clearance Day #5/ abx nebs Lasix stopped We will reevaluate on July 15 with her sister and her leather case finisher to see how they want us to proceed Acute respiratory failure requiring reintubation, recurred. Was kept intubated postop, w/o clear source evidence of PNA, Extubated on demand continue to go down, ddx: pulmonary edema, possibly iatrogenic ivf given in periop period, CHF. CXR 07/08 suggestive of worsening CHF. pt remained stable on RA since 07/06 but then lost ground 07/09 and had BiPap. Seemed to stabilize w treatment for HAP. Then intubated again 07/10. At this time stable respiratory status w ongoing tx for HAP and fluid overload. Respiratory is working to see if her drive to breathe is stronger. Anasarca Due to severe protein calorie malnutrition and fluid overload Assessment/Plan: grossly overloaded still from iatrogenic ivf given in periop period -continue diuresis with daily lasix 20mg iv qd increase to bid July 06 she was -1200 cc. July 07 -2234 cc. July 08 -771 . July 09 -393. July 10 is +1813. Lasix increased to 40 bid from 20 bid July 11 +1072 July 12 +484 Off lasix as of last night. Perforated duodenal ulcer, Status post direct repair Heineke-Mikurez Pyloroplasty, Gram Patch POD #17 Assessment/Plan: s/p exploratory laparotomy with repair of posteriorly perforated duodenal ulcer on 06/26 by , course c/b septic shock, prolonged respiratory failure on vent, s/p extubated on 07/05. -Gastrografin challenge 07/09 was consistent with gastric outlet obstruction. Dr. Dobson hopes that this will resolve with conservative management.This may take an extended period of time to resolve. Some literature states as long as 6 weeks. -Leave NG tube in place and suction. Stop all meds thru NG. Given enemas from below 07/09 to try and get things moving. Surgeon would also like low-dose Reglan added. Continue TPN for now via RIJ CVC(06/26) Given mentation, pt likely needs modality for exterminator helper feeding, PICC line inserted 07/10 and discontinued RIJ cvc, to reduce risks of infection. Repeat UGI study done 07/11 and shows partial gastric outlet obstruction. Dr. Dobson opted to started very low rate tube feeds. Still on TPN. Reglan was prn and changed to fixed schedule since it does help according to RN Today NO tuber feeds. Rectal supp given. Iron deficiency anemia Assessment/Plan: Started Iron 07/04, h/h slowly trending down wo signs of active bleeding, as per surgery, wound looks good without hematoma. plt count stable despite dvt ppx with LMWH, -h/h stable today, target hgb>7, transfuse as needed, -h/h seems to be trending up. Today hgb at 10.0. Ileus following gastrointestinal surgery Assessment/Plan: Reviewed abd xray Ileus seen Patient has received lactulose via NGT, but it does not appear to be helping per surgeon.Started low-dose Reglan 07/10. Because she had total lack of dye passing w gastrograffin all NG input stopped 07/10 On review of followup films 07/08, dye in colon 24 hours later. Repeat dye study 07/12 still not completely open but no obstructed in colon. She is off tube feedings right now. Continue TPN. I do not think she is improving enough for her family to want us to proceed after July 15. Will reevaluate tomorrow. Chronic, stable, resolved, Acute encephalopathy resolved Impression: pt still follows minimal commands, still lethargic since off on sedation in 07/07 AM but she does respond more and more, reportedly pt has poor cognitive function at baseline. -will continue to monitor mental status, consider starting PT eval for dispo once pt is more lucid. Acute peritonitis Resolved s/p perforated DU. Peritoneal fluid culture on 06/26 ngtd. BCX not available. shock resolved, off on vasopressor 07/07 AM. -completed cefipime, flagyl and diflucan per General Surgery and per note they were ok with change for HAP. Hypothyroidism Qualifiers: Hypothyroidism type: acquired Qualified Code(s): E03.9 - Hypothyroidism, unspecified Assessment/Plan: Continue synthroid. It was discontinued on July 05. Unclear what the reasoning was. However I have discussed with pharmacy and we are resuming 130 mcg on Mondays and . 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 Echo December 2019 had ejection fraction of 65 to 70%. Mild tricuspid regurgitation. RVSP was 43 mmHg. Echo January 2020 had ejection fraction of 55 to 60%. Echocardiogram done June 27, 2021 has an ejection fraction of 40 to 45% and her systolic function is globally impaired. Right ventricular pacing evident. Was placed in September 2020? Mild to moderate right ventricular enlargement. Moderate to severe mitral regurgitation. Moderate LAE, severe ORI. Septic shock, RESOLVED secondary to presumed intraabdominal infection s/p perforated DU. Peritoneal fluid culture on 06/26 ngtd. BCX not available. shock resolved, off on vasopressor 07/07 AM. DVT prophylaxis Lovenox continues (10) Schizophrenia Qualifiers: Schizophrenia type: unspecified Qualified Code(s): F20.9 - Schizophrenia, unspecified
[2021-07-13] MEDS: GLYCOPYRROLATE 1 MG/5 ML VIAL SUBQ PRN ×2 (17:58→22:16)
[2021-07-13] MEDS: FAT EMUL/SOY/MCT/OLIV/FISH OIL 50 GM/250 ML BAG IV SCH (19:24)
[2021-07-13] MEDS: TPN (CLINIMIX E 5/15) 2,000 ML with MULTIVITAMIN 10 ML, TRACE ELEMENTS 1 ML IV SCH ×3 (20:10)
[2021-07-14] MEDS: DEXMEDETOMIDINE 400 MCG in SODIUM CHLORIDE 0.9% 100ML 96 ML IV PRN ×4 (00:52→21:46)
[2021-07-14] MEDS: LORazepam 2 MG/ML VIAL IVP PRN ×7 (02:35→21:46)
[2021-07-14] MEDS: SODIUM CHLORIDE FLUSH 0.9% 10 ML SYRINGE IVP PRN (02:35)
[2021-07-14] MEDS: HYDROmorphone 0.5 MG/0.5 ML SYRINGE IVP PRN ×5 (02:37→22:16)
[2021-07-14] MEDS: SODIUM CHLORIDE 0.9% 500 ML IV PRN (02:40)
[2021-07-14] MEDS: VANCOMYCIN INJ 1 GM in SODIUM CHLORIDE 0.9% 250 ML IV SCH ×2 (03:23→21:50)
[2021-07-14 05:07] LABS: BASOPHILS # (AUTO) 0.1 10^3/uL (0.0-0.1); BASOPHILS % (AUTO) 0.8 %; EOSINOPHILS # (AUTO) 0.5 10^3/uL (0.0-0.7); EOSINOPHILS % (AUTO) 8.2 %; HCT - HEMATOCRIT 28.7 % (37.0-47.0); HGB - HEMOGLOBIN 9.1 g/dL (12.0-16.0); LYMPHOCYTES # (AUTO) 1.2 10^3/uL (1.5-3.5); LYMPHOCYTES % (AUTO) 19.3 %; MEAN CORPUSCULAR HEMOGLOBIN 30.2 pg (27.0-31.0); MEAN CORPUSCULAR HGB CONC 31.7 g/dL (32.0-36.0); MEAN CORPUSCULAR VOLUME 95.3 fL (81.0-99.0); MEAN PLATELET VOLUME 10.7 fL (7.9-10.8); MONOCYTES # (AUTO) 0.6 10^3/uL (0.0-1.0); MONOCYTES % (AUTO) 9.3 %; NEUTROPHILS # (AUTO) 3.6 10^3/uL (1.5-6.6); NEUTROPHILS % (AUTO) 59.7 %; PLT - PLATELET COUNT 233 10^3/uL (130-450); RED BLOOD COUNT 3.01 10^6/uL (4.20-5.40); RED CELL DISTRIBUTION WIDTH 22.1 % (12.0-15.0)
[2021-07-14] MEDS: METOCLOPRAMIDE 10 MG/2 ML VIAL IVP SCH ×4 (05:07→23:46)
[2021-07-14 05:13] LABS: SLIDE REVIEW? Indicated
[2021-07-14 05:21] LABS: ALBUMIN 1.9 g/dL (3.2-5.5); ALBUMIN/GLOBULIN RATIO 0.6 (1.0-2.2); BILIRUBIN,TOTAL 0.6 mg/dL (0.2-1.0); CALCIUM 7.6 mg/dL (8.5-10.3); CREATININE 0.6 mg/dL (0.4-1.0); PHOSPHORUS 2.9 mg/dL (2.5-4.6); POTASSIUM 3.7 mmol/L (3.5-5.0); TOTAL PROTEIN 5.1 g/dL (6.7-8.2)
[2021-07-14 05:31] LABS: ABG BASE EXCESS 4.4 mmol/L (-2.0-3.0); ABG HCO3 27.2 mmol/L (22.0-26.0); ABG OXYGEN SATURATION 99 % (94-98); ABG PCO2 34 mmHg (34-45); ABG PH 7.52 (7.35-7.45); ABG PO2 129 mmHg (80-100); ABG TCO2 28.2 MMOL/L (21.0-29.0)
[2021-07-14 05:32] LABS: ABG MODE OF VENTILATION ASSIST/CONTROL; ABG RESPIRATORY RATE 12 b/min; ALLEN TEST POSITIVE
[2021-07-14 05:34] LABS: PLATELET ESTIMATE, MANUAL NORMAL (130-450,000) (NORMAL); PLATELET MORPHOLOGY NORMAL APPEARANCE (NORMAL); RBC MORPHOLOGY (MULTIPLE) 2+ ANISOCYTOSIS (NORMAL); WBC MORPHOLOGY (MULTIPLE) NORMAL APPEARANCE (NORMAL)
[2021-07-14] MEDS: PANTOPRAZOLE 40 MG VIAL IVP SCH (06:04)
[2021-07-14] MEDS: ENOXAPARIN 40 MG/0.4 ML SYRINGE SUBQ SCH (08:46)
[2021-07-14] MEDS: CEFEPIME 2 GM in SODIUM CHLORIDE 0.9% MINIBAG 100 ML IV SCH ×2 (08:46→20:39)
[2021-07-14] MEDS: SODIUM CHLORIDE FLUSH 0.9% 10 ML SYRINGE IVP SCH ×3 (08:46→23:46)
[2021-07-14] MEDS: CHLORHEXIDINE GLUCONATE 15 ML UDC PO SCH ×2 (08:46→20:41)
--- NOTE | 2021-07-14 09:14 | PROVIDER PROGRESS NOTE ---
Subjective - Prog Note Date Prog Note Date: 07/14/21 Prog Note Time: 09:13 - Subjective Subjective: no event overnight per stockroom selector. Still on vent, levophed coming down, vent setting changed due to respiratory alkalosis with a pH 7.52 and pC02 34. TV c hanged to 425 from 450. We are not having much success getting her off the levo. At 930 this morning her blood pressure changed with quite a bit of thick secretions at the ET tube. She was suctioned. Levophed went back up again. This morning she does not have any residual on NG check. Tube feeds have not been restarted Current Medications - Current Medications Current Medications: Active Medications Benzocaine/Butamben/Tetracaine HCl (Benzocaine/Tetracaine/Butamben 20 Gm) 1 sprays MM DAILY PRN PRN Reason: Throat Pain Bisacodyl (Bisacodyl 10 Mg Supp) 10 mg TX DAILY JULIETA Chlorhexidine Gluconate (Chlorhexidine Gluconate 15 Ml Udc) 15 ml PO BID JULIETA Last Admin: 07/14/21 08:46 Dose: 15 ml Documented by: Enoxaparin Sodium (Enoxaparin 40 Mg/0.4 Ml Syringe) 40 mg SUBQ DAILY JULIETA Last Admin: 07/14/21 08:46 Dose: 40 mg Documented by: Glycopyrrolate (Glycopyrrolate 1 Mg/5 Ml Vial) 0.2 mg SUBQ Q6H PRN PRN Reason: Excessive Secretions Last Admin: 07/13/21 22:16 Dose: 0.2 mg Documented by: Hydromorphone HCl (Hydromorphone 0.5 Mg/0.5 Ml Syringe) 0.5 mg IVP Q3H PRN PRN Reason: PAIN Last Admin: 07/14/21 02:37 Dose: 0.5 mg Documented by: Sodium Chloride (Normal Saline 0.9%) 500 mls @ 20 mls/hr IV Q24H PRN PRN Reason: TKO RATE Last Admin: 07/14/21 02:40 Dose: 20 mls/hr Documented by: Multivitamins 10 ml/ TRACE ELEMENTS 1 ml/ Amino Ac/Electrol/Dextrose/Calcium 2,011 mls @ 42 mls/hr IV Q24H JULIETA; Protocol Last Admin: 07/13/21 20:10 Dose: Not Given Documented by: Cefepime HCl 2 gm/ Sodium (Chloride) 100 mls @ 200 mls/hr IV BID [facility] Last Admin: 07/14/21 08:46 Dose: 100 mls/hr Documented by: Fat Emulsion-Soy/MCT/[place]/Fish Oil (Smoflipid 20% Iv Fat Emulsion) 50 gm in 250 mls @ 21 mls/hr IV 1900 [facility] Last Admin: 07/13/21 19:24 Dose: 21 mls/hr Documented by: Levofloxacin (Levaquin 750 Mg/150 Ml) 750 mg in 150 mls @ 100 mls/hr IV Q24H [facility] Last Infusion: 07/13/21 17:40 Dose: Infused Documented by: Norepinephrine Bitartrate 8 mg (/ Dextrose) 250 mls @ 15 mls/hr IV .[id number] [facility]; Protocol Last Titration: 07/14/21 08:30 Dose: 8 mcg/min, 15 mls/hr Documented by: Dexmedetomidine HCl 400 mcg/ (Sodium Chloride) 100 mls @ 4.325 mls/hr IV .Q23H8M PRN; Protocol PRN Reason: Agitation Last Titration: 07/14/21 04:02 Dose: 0.06 mcg/kg/hr, 1.3 mls/hr Documented by: Vancomycin HCl 1 gm/ Sodium (Chloride) 250 mls @ 167 mls/hr IV Q18H [facility] Last Infusion: 07/14/21 05:16 Dose: Infused Documented by: Levothyroxine Sodium (Levothyroxine 100 Mcg Vial) 130 mcg IVP MoTh@0700 [facility] Last Admin: 07/12/21 12:17 Dose: 130 mcg Documented by: Lorazepam (Lorazepam 2 Mg/Ml Vial) 0.5 mg IVP Q1H PRN PRN Reason: Anxiety Last Admin: 07/14/21 08:45 Dose: 0.5 mg Documented by: Metoclopramide HCl (Metoclopramide 10 Mg/2 Ml Vial) 5 mg IVP Q6HR [facility] Last Admin: 07/14/21 05:07 Dose: 5 mg Documented by: Mineral Oil (Min Oil/Dimethicon/Coconut Oil 92 Gm Tube) 1 applic TOP PRN PRN PRN Reason: Skin Care Last Admin: 07/06/21 20:24 Dose: 1 ea Documented by: Ondansetron HCl (Ondansetron 4 Mg/2 Ml Vial) 4 mg IVP Q6H PRN PRN Reason: Nausea / Vomiting Pantoprazole Sodium (Pantoprazole 40 Mg Vial) 40 mg IVP QDAC [facility] Last Admin: 07/14/21 06:04 Dose: 40 mg Documented by: Phenol/Menthol (Phenol Throat [place] 177 Ml) 2 sprays MM Q2HR PRN PRN Reason: Throat Pain Last Admin: 07/07/21 11:03 Dose: 2 sprays Documented by: Sodium Chloride (Sodium Chloride Flush 0.9% 10 Ml Syringe) 10 ml IVP 0100,0900,1700 [facility] Last Admin: 07/14/21 08:46 Dose: 10 ml Documented by: Sodium Chloride (Sodium Chloride Flush 0.9% 10 Ml Syringe) 10 ml IVP PRN PRN PRN Reason: NEEDED PER PROVIDER ORDERS Last Admin: 07/12/21 06:23 Dose: 10 ml Documented by: Sodium Chloride (Sodium Chloride Flush 0.9% 10 Ml Syringe) 20 ml IVP PRN PRN PRN Reason: After Blood Draw Last Admin: 07/14/21 02:35 Dose: 20 ml Documented by: Levothyroxine [Synthroid] 75 mcg PO QDAC 07/22/19 Simvastatin [Zocor] 20 mg PO QPM 07/22/19 Torsemide 40 mg PO DAILY 07/22/19 Potassium Chloride 10 meq PO DAILY 01/11/20 EPINEPHrine [Epipen Jr] 0.3 mg IM ONCE PRN 04/12/20 traZODone [Desyrel] 200 mg PO QPM 04/12/20 Meloxicam [Mobic] 7.5 mg PO BID 10/21/20 QUEtiapine [SEROquel] 100 mg PO BID 10/21/20 Objective - Vital Signs/Intake & Output Reviewed Vital Signs: Yes Vital Signs: Vital Signs x48h Temp Pulse Pulse Resp BP Pulse Ox 07/14/21 08:15 77 12 95/49 L 100 07/14/21 08:00 77 17 101/53 L 100 07/14/21 07:11 80 07/14/21 07:00 60 20 100/44 L 100 07/14/21 06:00 76 28 H 121/62 100 07/14/21 05:44 77 07/14/21 05:00 36.7 C 80 13 104/48 L 100 07/14/21 04:00 36.6 C 80 12 118/44 L 100 07/14/21 03:20 119/61 07/14/21 03:00 79 76 12 64/35 L 100 07/14/21 02:32 106/81 H 07/14/21 02:00 78 15 89/50 L 100 07/14/21 01:43 104/60 07/14/21 01:38 116/61 07/14/21 01:31 87/63 L 07/14/21 01:24 80/39 L Intake & Output: Intake & Output 07/11/21 07/12/21 07/13/21 07/14/21 23:59 23:59 23:59 23:59 Intake Total 4642.037 4269.739 5284.252 672.063 Output Total 3570 3785 2385 1090 Balance 1072.037 392.774 4938.252 -417.937 - Objective General Appearance: positive: Other (Intubated elderly cachectic female, barely responsive. This morning she did open eyes. On Precedex and Levophed) Eyes Bilateral: positive: PERRL. negative: EOMI (Right eye deviation laterally) Neck: positive: No JVD Respiratory: positive: No respiratory distress, Rhonchi, Other (Blood gases discussed in subjective) Abdomen: positive: Abnml bowel sounds (1 bowel sounds heard. Not distended. Wound clean.) Skin: positive: Warm, Dry, Pallor Extremities: positive: Full ROM, Pedal edema (And diffuse anasarca) - Lab Results Fish Bones: 07/14/21 04:38 07/14/21 04:38 Other Labs: Lab Results x24hrs 07/14/21 07/14/21 07/14/21 Range/Units 05:25 04:38 04:38 WBC 6.0 (4.8-10.8) x10^3/uL RBC 3.01 L (4.20-5.40) 10^6/uL Hgb 9.1 L (12.0-16.0) g/dL Hct 28.7 L (37.0-47.0) % MCV 95.3 (81.0-99.0) fL MCH 30.2 (27.0-31.0) pg MCHC 31.7 L (32.0-36.0) g/dL RDW 22.1 H (12.0-15.0) % Plt Count 233 (130-450) 10^3/uL MPV 10.7 (7.9-10.8) fL Neut # (Auto) 3.6 (1.5-6.6) 10^3/uL Lymph # (Auto) 1.2 L (1.5-3.5) 10^3/uL [place] # (Auto) 0.6 (0.0-1.0) 10^3/uL Eos # (Auto) 0.5 (0.0-0.7) 10^3/uL Baso # (Auto) 0.1 (0.0-0.1) 10^3/uL Absolute Nucleated RBC 0.00 x10^3/uL Nucleated RBC % 0.0 /100WBC Manual Slide Review Indicated WBC Morphology NORMAL APPEARANCE (NORMAL) Platelet Estimate NORMAL (130-450,000) (NORMAL) Platelet Morphology NORMAL APPEARANCE (NORMAL) RBC Morph Micro Appear 2+ ANISOCYTOSIS (NORMAL) Bld Gas Analysis Time 0532 Sample Site LEFT RADIAL ABG pH 7.52 H (7.35-7.45) ABG pCO2 34 (34-45) mmHg ABG pO2 129 H (80-100) mmHg ABG HCO3 27.2 H (22.0-26.0) mmol/L ABG Total CO2 28.2 (21.0-29.0) MMOL/L ABG O2 Saturation 99 H (94-98) % ABG Base Excess 4.4 H (-2.0-3.0) mmol/L Ruperto Test POSITIVE Respiration Rate 12 b/min O2 Delivery Device VENTILATOR Vent Mode ASSIST/CONTROL FiO2 35.00 Tidal Volume 450 mL PEEP 5 cmH2O Sodium 134 L (135-145) mmol/L Potassium 3.7 (3.5-5.0) mmol/L Chloride 101 (101-111) mmol/L Carbon Dioxide 27 (21-32) mmol/L Anion Gap 6.0 (6-13) BUN 22 H (6-20) mg/dL Creatinine 0.6 (0.4-1.0) mg/dL Estimated GFR (MDRD) 96 (>89) Glucose 160 H (70-100) mg/dL POC Whole Bld Glucose (70 - 100) mg/dL Calcium 7.6 L (8.5-10.3) mg/dL Phosphorus 2.9 (2.5-4.6) mg/dL Magnesium 2.0 (1.7-2.8) mg/dL Total Bilirubin 0.6 (0.2-1.0) mg/dL AST 23 (10-42) IU/L ALT 24 (10-60) IU/L Alkaline Phosphatase 106 (42-121) IU/L Total Protein 5.1 L (6.7-8.2) g/dL Albumin 1.9 L (3.2-5.5) g/dL Globulin 3.2 (2.1-4.2) g/dL Albumin/Globulin Ratio 0.6 L (1.0-2.2) Prealbumin 20 (18-45) mg/dL 07/13/21 07/13/21 Range/Units 23:14 12:23 WBC (4.8-10.8) x10^3/uL RBC (4.20-5.40) 10^6/uL Hgb (12.0-16.0) g/dL Hct (37.0-47.0) % MCV (81.0-99.0) fL MCH (27.0-31.0) pg MCHC (32.0-36.0) g/dL RDW (12.0-15.0) % Plt Count (130-450) 10^3/uL MPV (7.9-10.8) fL Neut # (Auto) (1.5-6.6) 10^3/uL Lymph # (Auto) (1.5-3.5) 10^3/uL [place] # (Auto) (0.0-1.0) 10^3/uL Eos # (Auto) (0.0-0.7) 10^3/uL Baso # (Auto) (0.0-0.1) 10^3/uL Absolute Nucleated RBC x10^3/uL Nucleated RBC % /100WBC Manual Slide Review WBC Morphology (NORMAL) Platelet Estimate (NORMAL) Platelet Morphology (NORMAL) RBC Morph Micro Appear (NORMAL) Bld Gas Analysis Time Sample Site ABG pH (7.35-7.45) ABG pCO2 (34-45) mmHg ABG pO2 (80-100) mmHg ABG HCO3 (22.0-26.0) mmol/L ABG Total CO2 (21.0-29.0) MMOL/L ABG O2 Saturation (94-98) % ABG Base Excess (-2.0-3.0) mmol/L Ruperto Test Respiration Rate b/min O2 Delivery Device Vent Mode FiO2 Tidal Volume mL PEEP cmH2O Sodium (135-145) mmol/L Potassium (3.5-5.0) mmol/L Chloride (101-111) mmol/L Carbon Dioxide (21-32) mmol/L Anion Gap (6-13) BUN (6-20) mg/dL Creatinine (0.4-1.0) mg/dL Estimated GFR (MDRD) (>89) Glucose (70-100) mg/dL POC Whole Bld Glucose 147 H 147 H (70 - 100) mg/dL Calcium (8.5-10.3) mg/dL Phosphorus (2.5-4.6) mg/dL Magnesium (1.7-2.8) mg/dL Total Bilirubin (0.2-1.0) mg/dL AST (10-42) IU/L ALT (10-60) IU/L Alkaline Phosphatase (42-121) IU/L Total Protein (6.7-8.2) g/dL Albumin (3.2-5.5) g/dL Globulin (2.1-4.2) g/dL Albumin/Globulin Ratio (1.0-2.2) Prealbumin (18-45) mg/dL ABX Reporting Has patient been on IV antibiotics over the past 48 hours?: Yes Sepsis Event Note (H) - Evaluation Current Stage of Sepsis: Resolved (days ago since surgery) Possible source of Sepsis: positive: GI tract/intra-abdominal - Sepsis Criteria Sepsis Criteria: WBC count greater than 10% bands, SBP drop more than 40mHg, MAP less than 65 mmHg, SBP less than 90 mmHg, Renal: urine output less than 0.5ml /kg/hr for 2 hours or creatinine gr, Metabolic: lactate > 2 mmol/L Assessment/Plan - Problem List (1) Hospital-acquired pneumonia Impression: 07/09 she had a sudden drop in oxygen sats. She has had copious secretions even when she was intubated. Long strings of phlegm were being produced around the ET tube. Since extubation she has struggled w weak cough, and continued secretions. 07/09 had the sudden drop. Required increased 02. ABG confirmed mild hypercapnea with the hypoxia. The CXR confirmed worsening LLL pneumonia. I added Vancomycin and Levaquin to her Cefipime and surgery was ok w stopping the flagyll and diflucan. BiPap used for a short time but she was miserable w the mask leaking around the NG and the lack of fit around her chin. It worked but with the struggle I stopped it and tolerating Robinul is being used but not frequently. Night RN didn't use it. Was stable 07/10 am but by afternoon struggling to breath. Using acessory muscles in spite of O2. Knowing she did not do well w BiPap we intubated with Anesthesia. PICC line was placed as well. She started getting hypotensive again 07/12. Back on Levophed. I had increased her Lasix to increase her urine output. Then reduced her Lasix wondering if this was causing hypotension. Lasix was stopped 07/13. She received a liter of fluid and Levophed has been maintained to keep a mean arterial pressure of 65. We tried to decrease vent settings yesterday and she did not want to breath with the SIMV but did start to. This am was stable w vent and levo being weaned but had even to copious secretions and hypotension again. Back up on levo. In the back of our minds is the request of her sister to see how she does this weekend. On Thursday if she is not significantly improved (July 15) her sister and the case monitor may opt to transition her to hospice. Discharge will be back to her [facility] under the care of [facility] and hospice. Plan: Day #5 reintubation emphasize secretion clearance Day #6/7 abx nebs Lasix stopped 07/13 We will reevaluate on July 15 with her sister and her case monitor to see how they want us to proceed. I did try to call her sister today. Left a message on the phone number that we have. Acute respiratory failure recurred requiring reintubation Was kept intubated postop, w/o clear source evidence of PNA, Extubated on 07/05, 02 demand continue to go down, ddx: pulmonary edema, possibly iatrogenic ivf given in periop period, CHF. CXR 07/08 suggestive of worsening CHF. pt remained stable on RA since 07/06 but then lost ground 07/09 and had BiPap. Seemed to stabilize w treatment for HAP. Then intubated again 07/10. Since intubation, she has been easy to ventilate. If anything I am over ventilating her and I have reduced her rate first. Then we reduced her tidal volume. This morning she continues to be alkalotic and I have decreased her tidal volume even further. Anasarca Due to severe protein calorie malnutrition and fluid overload Assessment/Plan: grossly overloaded still from iatrogenic ivf given in periop period -continue diuresis with daily lasix 20mg iv qd increase to bid July 06 she was -1200 cc. July 07 -2234 cc. July 08 -771 . July 09 -393. July 10 is +1813. Lasix increased to 40 bid from 20 bid July 11 +1072 July 12 +484 Off lasix as of pm 07/12July 13 +2899 Plan: is to continue TPN in face of low blood pressure requiring levophed but try to max nutriton so her 3rd spacing resolves. Off Tube feeds until she has BM since she had a 200 cc residual 07/13 Perforated duodenal ulcer, Status post direct repair Levyinemarilin-Olga Pyloroplas ty, Gram Patch POD #18 Assessment/Plan: s/p exploratory laparotomy with repair of posteriorly perforated duodenal ulcer on 06/26 by , course c/b septic shock, prolonged respiratory failure on vent, s/p extubated on 07/05. -Gastrografin challenge 07/09 was consistent with gastric outlet obstruction. Dr. Dobson hopes that this will resolve with conservative management.This may take an extended period of time to resolve. Some literature states as long as 6 weeks. -Leave NG tube in place and suction. Stop all meds thru NG. Given enemas from below 07/09 to try and get things moving. Surgeon would also like low-dose Reglan added. Continue TPN for now via RIJ CVC(06/26) Given mentation, pt likely needs modality for detention feeding, PICC line inserted 07/10 and discontinued RIJ cvc, to reduce risks of infection. Repeat UGI study done 07/11 and shows partial gastric outlet obstruction. Dr. Dobson opted to started very low rate tube feeds. Still on TPN. Reglan was prn and changed to fixed schedule since it does help according to RN 07/13 and today, NO feeds. Rectal supp given. Iron deficiency anemia Assessment/Plan: Started Iron 07/04, h/h slowly trending down wo signs of active bleeding, as per surgery, wound looks good without hematoma. plt count stable despite dvt ppx with LMWH, -h/h stable today, target hgb>7, transfuse as needed, -h/h seems to be trending up. Today hgb at 9.1. Ileus following gastrointestinal surgery Assessment/Plan: Reviewed abd xray Ileus seen Patient has received lactulose via NGT, but it does not appear to be helping per surgeon.Started low-dose Reglan 07/10. Because she had total lack of dye passing w gastrograffin all NG input stopped 07/10 On review of followup films 07/08, dye in colon 24 hours later. Repeat dye study 07/12 still not completely open but no obstructed in colon. She is off tube feedings right now. Continue TPN. I still do not think she is improving enough for her family to want us to proceed after July 15. I have left message with Katie Bryson for her to call me. Chronic, stable, resolved, Acute encephalopathy resolved Impression: pt still follows minimal commands, still lethargic since off on sedation in 07/07 AM but she does respond more and more, reportedly pt has poor cognitive function at baseline. -will continue to monitor mental status, consider starting PT eval for dispo once pt is more lucid. Because of the precedex and ativan difficult to assess if she has mentation or not now. but she is openining her eyes this am. Acute peritonitis Resolved s/p perforated DU. Peritoneal fluid culture on 06/26 ngtd. BCX not available. shock resolved, off on vasopressor 07/07 AM. -completed cefipime, flagyl and diflucan per General Surgery and per note they were ok with change for HAP. Hypothyroidism Qualifiers: Hypothyroidism type: acquired Qualified Code(s): E03.9 - Hypothyroidism, unspecified Assessment/Plan: Continue synthroid. It was discontinued on July 05. Unclear what the reasoning was. However I have discussed with pharmacy and we are resuming 130 mcg on Mondays and . 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 Echo December 2019 had ejection fraction of 65 to 70%. Mild tricuspid regurgi tation. RVSP was 43 mmHg. Echo January 2020 had ejection fraction of 55 to 60%. Echocardiogram done June 27, 2021 has an ejection fraction of 40 to 45% and her systolic function is globally impaired. Right ventricular pacing evident. Was placed in September 2020? Mild to moderate right ventricular enlargement. Moderate to severe mitral regurgitation. Moderate LAE, severe ORI. Septic shock, RESOLVED secondary to presumed intraabdominal infection s/p perforated DU. Peritoneal fluid culture on 06/26 ngtd. BCX not available. shock resolved, off on vasopressor 10/10 AM. DVT prophylaxis Lovenox continues (10) Schizophrenia Qualifiers: Schizophrenia type: unspecified Qualified Code(s): F20.9 - Schizophrenia, unspecified
[2021-07-14] MEDS: BISACODYL 10 MG SUPP PR SCH (11:56)
--- NOTE | 2021-07-14 14:22 | PROVIDER PROGRESS NOTE ---
Subjective - General Admit Date: 06/26/21 Procedure Date: 06/26/21 Post Op Days: 18 Procedure Performed: Exploratory laparotomy with repair of posterior duodenal ulcer - Review of Systems Wound/Incisions: positive: Healing well Drain Type: 19 Arabic Tanner Drain Output Description: Serosanguineous - Other Other Information/Narrative: Remains sedated and mechanically ventilated. Course has been, and continues to be, a jordyn one. Tube feeds remain off for fear of aspiration but there was no NG residual this morning. Remains on TPN. Wound is clean and healing. Gravely ill. Objective - Patient Data Reviewed Vital Signs: Yes Vital Signs: Vital Signs x48h Temp Pulse Pulse Resp BP Pulse Ox 07/14/21 13:49 82 07/14/21 13:00 98 12 113/77 98 07/14/21 12:30 101/87 H 07/14/21 12:00 37.2 C 99 12 110/44 L 99 07/14/21 11:30 12 109/41 L 100 07/14/21 11:21 82 07/14/21 11:00 83 12 109/45 L 100 07/14/21 10:30 88 12 108/49 L 100 07/14/21 10:20 82 26 H 110/44 L 100 07/14/21 10:10 99/82 H 07/14/21 10:05 57/25 L 07/14/21 10:00 83 26 H 117/52 L 99 07/14/21 09:59 82 07/14/21 09:45 83 95/78 07/14/21 08:15 77 12 95/49 L 100 07/14/21 08:00 77 17 101/53 L 100 07/14/21 07:11 80 07/14/21 07:00 60 20 100/44 L 100 Weight: Weight 07/12/21 07/13/21 07/14/21 23:59 23:59 23:59 Weight (kg) 86 kg 87.2 kg Intake & Output: Intake and Output Totals x24h 07/12/21 07/13/21 07/14/21 23:59 23:59 23:59 Intake Total 4269.739 5284.252 1289.978 Output Total 7895 2385 1470 Balance 258.303 9491.252 -180.022 - Lab Results Lab Results: 07/14/21 04:38 07/14/21 04:38 Other Lab Results: Lab Results x24hrs 07/14/21 07/14/21 07/14/21 Range/Units 11:39 05:25 04:38 WBC 6.0 (4.8-10.8) x10^3/uL RBC 3.01 L (4.20-5.40) 10^6/uL Hgb 9.1 L (12.0-16.0) g/dL Hct 28.7 L (37.0-47.0) % MCV 95.3 (81.0-99.0) fL MCH 30.2 (27.0-31.0) pg MCHC 31.7 L (32.0-36.0) g/dL RDW 22.1 H (12.0-15.0) % Plt Count 233 (130-450) 10^3/uL MPV 10.7 (7.9-10.8) fL Neut # (Auto) 3.6 (1.5-6.6) 10^3/uL Lymph # (Auto) 1.2 L (1.5-3.5) 10^3/uL [place] # (Auto) 0.6 (0.0-1.0) 10^3/uL Eos # (Auto) 0.5 (0.0-0.7) 10^3/uL Baso # (Auto) 0.1 (0.0-0.1) 10^3/uL Absolute Nucleated RBC 0.00 x10^3/uL Nucleated RBC % 0.0 /100WBC Manual Slide Review Indicated WBC Morphology NORMAL APPEARANCE (NORMAL) Platelet Estimate NORMAL (130-450,000) (NORMAL) Platelet Morphology NORMAL APPEARANCE (NORMAL) RBC Morph Micro Appear 2+ ANISOCYTOSIS (NORMAL) Bld Gas Analysis Time 0532 Sample Site LEFT RADIAL ABG pH 7.52 H (7.35-7.45) ABG pCO2 34 (34-45) mmHg ABG pO2 129 H (80-100) mmHg ABG HCO3 27.2 H (22.0-26.0) mmol/L ABG Total CO2 28.2 (21.0-29.0) MMOL/L ABG O2 Saturation 99 H (94-98) % ABG Base Excess 4.4 H (-2.0-3.0) mmol/L Ruperto Test POSITIVE Respiration Rate 12 b/min O2 Delivery Device VENTILATOR Vent Mode ASSIST/CONTROL FiO2 35.00 Tidal Volume 450 mL PEEP 5 cmH2O Sodium (135-145) mmol/L Potassium (3.5-5.0) mmol/L Chloride (101-111) mmol/L Carbon Dioxide (21-32) mmol/L Anion Gap (6-13) BUN (6-20) mg/dL Creatinine (0.4-1.0) mg/dL Estimated GFR (MDRD) (>89) Glucose (70-100) mg/dL POC Whole Bld Glucose 162 H (70 - 100) mg/dL Calcium (8.5-10.3) mg/dL Phosphorus (2.5-4.6) mg/dL Magnesium (1.7-2.8) mg/dL Total Bilirubin (0.2-1.0) mg/dL AST (10-42) IU/L ALT (10-60) IU/L Alkaline Phosphatase (42-121) IU/L Total Protein (6.7-8.2) g/dL Albumin (3.2-5.5) g/dL Globulin (2.1-4.2) g/dL Albumin/Globulin Ratio (1.0-2.2) Prealbumin (18-45) mg/dL 07/14/21 07/13/21 Range/Units 04:38 23:14 WBC (4.8-10.8) x10^3/uL RBC (4.20-5.40) 10^6/uL Hgb (12.0-16.0) g/dL Hct (37.0-47.0) % MCV (81.0-99.0) fL MCH (27.0-31.0) pg MCHC (32.0-36.0) g/dL RDW (12.0-15.0) % Plt Count (130-450) 10^3/uL MPV (7.9-10.8) fL Neut # (Auto) (1.5-6.6) 10^3/uL Lymph # (Auto) (1.5-3.5) 10^3/uL [place] # (Auto) (0.0-1.0) 10^3/uL Eos # (Auto) (0.0-0.7) 10^3/uL Baso # (Auto) (0.0-0.1) 10^3/uL Absolute Nucleated RBC x10^3/uL Nucleated RBC % /100WBC Manual Slide Review WBC Morphology (NORMAL) Platelet Estimate (NORMAL) Platelet Morphology (NORMAL) RBC Morph Micro Appear (NORMAL) Bld Gas Analysis Time Sample Site ABG pH (7.35-7.45) ABG pCO2 (34-45) mmHg ABG pO2 (80-100) mmHg ABG HCO3 (22.0-26.0) mmol/L ABG Total CO2 (21.0-29.0) MMOL/L ABG O2 Saturation (94-98) % ABG Base Excess (-2.0-3.0) mmol/L Ruperto Test Respiration Rate b/min O2 Delivery Device Vent Mode FiO2 Tidal Volume mL PEEP cmH2O Sodium 134 L (135-145) mmol/L Potassium 3.7 (3.5-5.0) mmol/L Chloride 101 (101-111) mmol/L Carbon Dioxide 27 (21-32) mmol/L Anion Gap 6.0 (6-13) BUN 22 H (6-20) mg/dL Creatinine 0.6 (0.4-1.0) mg/dL Estimated GFR (MDRD) 96 (>89) Glucose 160 H (70-100) mg/dL POC Whole Bld Glucose 147 H (70 - 100) mg/dL Calcium 7.6 L (8.5-10.3) mg/dL Phosphorus 2.9 (2.5-4.6) mg/dL Magnesium 2.0 (1.7-2.8) mg/dL Total Bilirubin 0.6 (0.2-1.0) mg/dL AST 23 (10-42) IU/L ALT 24 (10-60) IU/L Alkaline Phosphatase 106 (42-121) IU/L Total Protein 5.1 L (6.7-8.2) g/dL Albumin 1.9 L (3.2-5.5) g/dL Globulin 3.2 (2.1-4.2) g/dL Albumin/Globulin Ratio 0.6 L (1.0-2.2) Prealbumin 20 (18-45) mg/dL - Current Medications Current Medications: Current Medications Generic Name Dose Route Start Last Admin Trade Name Freq PRN Reason Stop Dose Admin Bisacodyl 10 mg 07/14/21 09:00 07/14/21 11:56 Bisacodyl 10 Mg Supp DE 10 mg DAILY JULIETA Administration Chlorhexidine Gluconate 15 ml 06/27/21 21:00 07/14/21 08:46 Chlorhexidine Gluconate 15 Ml Udc PO 15 ml BID JULIETA Administration Enoxaparin Sodium 40 mg 06/28/21 09:00 07/14/21 08:46 Enoxaparin 40 Mg/0.4 Ml Syringe SUBQ 40 mg DAILY JULIETA Administration Glycopyrrolate 0.2 mg 06/28/21 21:17 07/13/21 22:16 Glycopyrrolate 1 Mg/5 Ml Vial SUBQ 0.2 mg Q6H PRN Administration Excessive Secretions Hydromorphone HCl 0.5 mg 07/06/21 22:57 07/14/21 02:37 Hydromorphone 0.5 Mg/0.5 Ml Syringe IVP 0.5 mg Q3H PRN Administration PAIN Sodium Chloride 500 mls @ 20 mls/hr 06/26/21 23:03 07/14/21 02:40 Normal Saline 0.9% IV 20 mls/hr Q24H PRN Administration TKO RATE Multivitamins 10 ml/ TRACE 2,011 mls @ 42 mls/hr 06/27/21 19:00 07/13/21 20:10 ELEMENTS 1 ml/ Amino Ac/ IV Not Given Electrol/Dextrose/Calcium Q24H [facility] Protocol Cefepime HCl 2 gm/ Sodium 100 mls @ 200 mls/hr 06/27/21 18:00 07/14/21 09:45 Chloride IV 0 mls/hr BID JULIETA Infusion Fat Emulsion-Soy/MCT/[place]/Fish Oil 50 gm in 250 mls @ 21 mls/hr 07/05/21 19:00 07/14/21 07:20 Smoflipid 20% Iv Fat Emulsion IV Infused 1900 JULIETA Infusion Levofloxacin 750 mg in 150 mls @ 100 mls/hr 07/09/21 15:00 07/13/21 17:40 Levaquin 750 Mg/150 Ml IV Infused Q24H JULIETA Infusion Norepinephrine Bitartrate 8 mg 250 mls @ 15 mls/hr 07/10/21 12:00 07/14/21 13:05 / Dextrose IV 12 mcg/min .[id number] JULIETA 22.5 mls/hr Administration Protocol 8 MCG/MIN Dexmedetomidine HCl 400 mcg/ 100 mls @ 4.325 mls/hr 07/10/21 11:20 07/14/21 10:00 Sodium Chloride IV 1.2 mcg/kg/hr .Q23H8M PRN 25.95 mls/hr Agitation Titration Protocol 0.2 MCG/KG/HR Vancomycin HCl 1 gm/ Sodium 250 mls @ 167 mls/hr 07/11/21 22:00 07/14/21 05:16 Chloride IV Infused Q18H JULIETA Infusion Levothyroxine Sodium 130 mcg 07/12/21 12:00 07/12/21 12:17 Levothyroxine 100 Mcg Vial IVP 130 mcg MoTh@0700 JULIETA Administration Lorazepam 0.5 mg 06/26/21 20:54 07/14/21 08:45 Lorazepam 2 Mg/Ml Vial IVP 0.5 mg Q1H PRN Administration Anxiety Metoclopramide HCl 5 mg 07/12/21 10:00 07/14/21 11:48 Metoclopramide 10 Mg/2 Ml Vial IVP 5 mg Q6HR JULIETA Administration Mineral Oil 1 applic 07/01/21 01:24 07/06/21 20:24 Min Oil/Dimethicon/Coconut Oil 92 Gm Tube TOP 1 ea PRN PRN Administration Skin Care Pantoprazole Sodium 40 mg 06/27/21 07:00 07/14/21 06:04 Pantoprazole 40 Mg Vial IVP 40 mg QDAC JULIETA Administration Phenol/Menthol 2 sprays 07/05/21 21:24 07/07/21 11:03 Phenol Throat [place] 177 Ml MM 2 sprays Q2HR PRN Administration Throat Pain Sodium Chloride 10 ml 06/27/21 01:00 07/14/21 08:46 Sodium Chloride Flush 0.9% 10 Ml Syringe IVP 10 ml 0100,0900,1700 JULIETA Administration Sodium Chloride 10 ml 06/26/21 20:54 07/12/21 06:23 Sodium Chloride Flush 0.9% 10 Ml Syringe IVP 10 ml PRN PRN Administration NEEDED PER PROVIDER ORDERS Sodium Chloride 20 ml 06/26/21 23:03 07/14/21 02:35 Sodium Chloride Flush 0.9% 10 Ml Syringe IVP 20 ml PRN PRN Administration After Blood Draw - Physical Exam Abdomen: positive: Other (Hypoactive bowel tones. No distension. No bowel movement since admission but gastrograffin seen on the colon on xray.) ABX Reporting Has patient been on IV antibiotics over the past 48 hours?: Yes Impression/Plan - Problem List Problem List: Perforated viscus is no longer the issue. Appreciate all of the excellent and attentive care of the medicine service. Will stop tube feeds for now and just continue with TPN as there are more pressing concerns to address.
[2021-07-14] MEDS: levoFLOXacin 750 MG/150 ML 750 MG/150 ML BAG IV SCH (15:00)
[2021-07-14 18:34] LABS: CORONAVIRUS 229E-RESP PCR NOT DETECTED; CORONAVIRUS HKU1-RESP PCR NOT DETECTED; CORONAVIRUS NL63-RESP PCR NOT DETECTED; CORONAVIRUS OC43-RESP PCR NOT DETECTED; HUMAN METAPNEUMOVIRUS NOT DETECTED; INFLUENZA A- RESP PCR PANEL NOT DETECTED; RHINOVIRUS/ENTEROVIRUS NOT DETECTED; SARS-CoV-2 -RESP PCR PANEL NOT DETECTED
[2021-07-14 18:35] LABS: B. PARAPERTUSSIS- RESP PCR PAN NOT DETECTED; B. PERTUSSIS- RESP PCR PANEL NOT DETECTED; C. PNEUMONIAE- RESP PCR PANEL NOT DETECTED; INFLUENZA B - RESP PCR PANEL NOT DETECTED; M. PNEUMONIAE- RESP PCR PANEL NOT DETECTED; PARAINFLUENZA VIRUS 1 NOT DETECTED; PARAINFLUENZA VIRUS 2 NOT DETECTED; PARAINFLUENZA VIRUS 3 NOT DETECTED; PARAINFLUENZA VIRUS 4 NOT DETECTED; RSV- RESP PCR PANEL NOT DETECTED
[2021-07-14] MEDS: TPN (CLINIMIX E 5/15) 2,000 ML with MULTIVITAMIN 10 ML, TRACE ELEMENTS 1 ML IV SCH ×3 (19:14)
[2021-07-14] MEDS: FAT EMUL/SOY/MCT/OLIV/FISH OIL 50 GM/250 ML BAG IV SCH (19:15)
[2021-07-15] MEDS: LORazepam 2 MG/ML VIAL IVP PRN ×7 (01:13→23:47)
[2021-07-15] MEDS: HYDROmorphone 0.5 MG/0.5 ML SYRINGE IVP PRN ×7 (01:13→21:08)
[2021-07-15] MEDS: DEXMEDETOMIDINE 400 MCG in SODIUM CHLORIDE 0.9% 100ML 96 ML IV PRN ×5 (01:19→20:28)
[2021-07-15] MEDS: GLYCOPYRROLATE 1 MG/5 ML VIAL SUBQ PRN ×2 (02:51→12:26)
[2021-07-15 05:23] LABS: BASOPHILS # (AUTO) 0.1 10^3/uL (0.0-0.1); BASOPHILS % (AUTO) 0.9 %; EOSINOPHILS # (AUTO) 0.7 10^3/uL (0.0-0.7); HCT - HEMATOCRIT 29.4 % (37.0-47.0); HGB - HEMOGLOBIN 9.2 g/dL (12.0-16.0); LYMPHOCYTES % (AUTO) 18.9 %; MEAN CORPUSCULAR HEMOGLOBIN 30.6 pg (27.0-31.0); MEAN CORPUSCULAR HGB CONC 31.3 g/dL (32.0-36.0); MEAN CORPUSCULAR VOLUME 97.7 fL (81.0-99.0); MEAN PLATELET VOLUME 10.9 fL (7.9-10.8); MONOCYTES # (AUTO) 0.6 10^3/uL (0.0-1.0); MONOCYTES % (AUTO) 11.6 %; NEUTROPHILS % (AUTO) 55.1 %; PLT - PLATELET COUNT 198 10^3/uL (130-450); RED BLOOD COUNT 3.01 10^6/uL (4.20-5.40); WHITE BLOOD COUNT 5.5 x10^3/uL (4.8-10.8)
[2021-07-15 05:24] LABS: SLIDE REVIEW? Indicated
[2021-07-15] MEDS: METOCLOPRAMIDE 10 MG/2 ML VIAL IVP SCH ×4 (05:28→23:50)
[2021-07-15 05:53] LABS: PLATELET ESTIMATE, MANUAL NORMAL (130-450,000) (NORMAL); PLATELET MORPHOLOGY NORMAL APPEARANCE (NORMAL); RBC MORPHOLOGY (MULTIPLE) 2+ ANISOCYTOSIS (NORMAL); WBC MORPHOLOGY (MULTIPLE) NORMAL APPEARANCE (NORMAL)
[2021-07-15] MEDS: LEVOTHYROXINE 100 MCG VIAL IVP SCH (06:00)
[2021-07-15] MEDS: PANTOPRAZOLE 40 MG VIAL IVP SCH (06:00)
[2021-07-15] MEDS: BISACODYL 10 MG SUPP PR SCH (08:32)
[2021-07-15] MEDS: CEFEPIME 2 GM in SODIUM CHLORIDE 0.9% MINIBAG 100 ML IV SCH (08:32)
[2021-07-15] MEDS: SODIUM CHLORIDE FLUSH 0.9% 10 ML SYRINGE IVP SCH ×2 (08:33→18:13)
[2021-07-15] MEDS: ENOXAPARIN 40 MG/0.4 ML SYRINGE SUBQ SCH (08:33)
[2021-07-15] MEDS: CHLORHEXIDINE GLUCONATE 15 ML UDC PO SCH ×2 (08:33→21:09)
--- NOTE | 2021-07-15 11:44 | ADVANCE CARE PLANNING NOTE ---
Advance Care Planning - Planning Encounter Date: 07/15/21 Time: 11:43 Purpose: establish goals of care Parties in Attendance: [facility] who owns and runs the Adult Home Patient resides in, Social Work Vilma, Hospitalist Perla Pang MD Decisional Capacity of the Patient: Unable to participate. She is on a ventilator, sedated. This has been a problem in the past. The patient is developmentally delayed with cognitive deficit. No one truly has power of banking attorney except next of kin/sister which is Katie Massey. Prior to Katie, who is the patient's mother. In the mother's will, she has left Katie with the responsibility of taking care of her sister, Felisha. Formal power of banking attorney has never been obtained. Henny is the payee that takes care of Felisha's finances. Henny cannot be the POA since she is the payee and has the chcf Felisha lives in. Katie sometimes lives out of the country. Katie has let us know that [facility] can be a point of contact to help guide us in making decisions. - Diagnosis for Encounter (3) Perforated duodenal ulcer Summary: s/p exploratory laparotomy with repair of posteriorly perforated duodenal ulcer on 06/26 by , course c/b septic shock, prolonged respiratory failure on vent, s/p extubated on 07/05. -Gastrografin challenge 07/09 was consistent with gastric outlet obstruction. Dr. Dobson hopes that this will resolve with conservative management.This may take an extended period of time to resolve. Some literature states as long as 6 weeks. -Leave NG tube in place and suction. Stop all meds thru NG. Given enemas from below 07/09 to try and get things moving. Surgeon would also like low-dose Reglan added. Continue TPN for now via RIJ CVC(06/26) Given mentation, pt likely needs modality for care home feeding, PICC line inserted 07/10 and discontinued RIJ cvc, to reduce risks of infection. Reintubated July 10 due to severe secretions and hospital-acquired pneumonia. Henny me that this was a problem at [facility] in September when she got her central line. Severe secretions that resulted in a day and a half intubation. Repeat UGI study done 07/11 and shows partial gastric outlet obstruction. Dr. Octavia ly opted to started very low rate tube feeds. Still on TPN. Reglan was prn and changed to fixed schedule since it does help according to RN. We have had to stop tube feedings since she had a 200 cc residual over the weekend. We decreased the rate, but continues to have no bowel movement. As that tube feedings have been stopped and were going back up on the TPN. - Encounter Subjective/Patient's Story: She has been with lifelong developmental delay and cognitive deficit. She lives with her mother until her 50s. And then when mom the responsibility of taking care of her went to [facility]. Her sister. She has been living in a chcf for over 20 years now. That chcf is "her family". She is able to communicate effectively with [facility] and other people. She makes her wishes known. She ambulates in the facility with a walker at most. She is usually a cheerful, stable personality. With one of her last hospitalizations for congestive heart failure in September 2020, she ended up needing to be transferred to [facility] for a pacemaker. She was diuresed for congestive heart failure but ended up having such copious se cretions (much like she is doing this admission) that she needed to be intubated very temporarily. She underwent a successful placement of a pacemaker. When she was discharged from [facility], she was doing so poorly that they sent her home with hospice care. With a lot of care on [facility]'s part the patient was able to slowly recover. She went from being completely bedbound unable to sit up. She is was then able to sit up. Able then start transferring to a bed. Able to start walking 2-3 steps. To then being completely independent again to her baseline. She had a wonderful summer. And then this duodenal rupture happened. Summary of duodenal rupture is as above. Can you is here to advocate for Felisha. To get Felisha back to the custodial soon as possible so she knows Felsiha does much better there than she does at hospitals. Below is the plan as Felisha (via Katie) would like to happen Objective/Medical Story: Cognitive delay patient, comes in with ruptured duodenal ulcer. Septic shock. Successful repair with a Gray patch. Intubated because of secretions after surgery. Postoperative complications include malnutrition, atrial fibrillation, anasarca with third spacing. She was extubated. Unfortunately secretions got the best of her and she developed a hospital-acquired pneumonia, and had to be reintubated. Her bowels not moving well and she has not had a bowel movement since before admission. As such is difficult for us to use tube feedings. She is on TPN. 2 days ago respiratory therapy started working on weaning parameters to see if we can get her to start breathing better on her own. Goals of Care: Goal is to get her to her chcf as soon as possible. Henny states that even if she is completely bedbound and dependent on caregivers for washing her body, changing her diaper, etc., she is willing to take her home. She knows that this may not be successful. The patient seems much weaker and more deconditioned than she was in September. While she wants to take her home, she and Katie have not come up with a plan if this does not work. They do not know if they are in or bring her back to the hospital or letter transition to hospice care. Plan: 1. Focus on extubation. Continue sedation vacations, use SIMV, may be even pressure support with T-piece with increasing time. Hopefully extubate in the next 1 to 2 days. Today is day #6 of reintubation. 2. Complete therapy for hospital-acquired pneumonia. Today is day #7 of antibiotics. I will be stopping antibiotics. 3. While we will focus on nutrition by continuing to get her got to open up, the custodial is willing to take her home on TPN. They are able to do so. 4. Discharged to her custodial when she is safely extubated, even if she is completely bedbound. 5. Katie and eren to sit down and discuss the future. If Felisha does not respond to cannulas administrations, will she be bringing the patient back to the hospital, or when she transition to hospice? Code Status: Attempt Resuscitation Time spent on advance care plannin minutes
--- NOTE | 2021-07-15 12:36 | PROVIDER PROGRESS NOTE ---
Subjective - Prog Note Date Prog Note Date: 07/15/21 Prog Note Time: 17:41 - Subjective Subjective: She continues to be intubated. Respiratory therapy is working on increasing her respiratory drive. Whenever we lower her sedation she struggles against the vent, starts to get hypoxic and we have to start all over again. Secretions come and go. Still on Levophed. No fever. Urine output is close to 2-1/2 L a day. Advance care planning conversation documented under separate dictation. Please refer to that note. I met with her long-term resident care assistant, Henny, who owns the correction that this patient lives in. Can you has been taking care of her for over 20 years.Was given permission to discuss the case by the patient's sister, Katie Massey. Current Medications - Current Medications Current Medications: Active Medications Benzocaine/Butamben/Tetracaine HCl (Benzocaine/Tetracaine/Butamben 20 Gm) 1 sprays MM DAILY PRN PRN Reason: Throat Pain Bisacodyl (Bisacodyl 10 Mg Supp) 10 mg FL DAILY JULIETA Last Admin: 07/15/21 08:32 Dose: 10 mg Documented by: Chlorhexidine Gluconate (Chlorhexidine Gluconate 15 Ml Udc) 15 ml PO BID JULIETA Last Admin: 07/15/21 08:33 Dose: 15 ml Documented by: Enoxaparin Sodium (Enoxaparin 40 Mg/0.4 Ml Syringe) 40 mg SUBQ DAILY JULIETA Last Admin: 07/15/21 08:33 Dose: 40 mg Documented by: Glycopyrrolate (Glycopyrrolate 1 Mg/5 Ml Vial) 0.2 mg SUBQ Q6H PRN PRN Reason: Excessive Secretions Last Admin: 07/15/21 12:26 Dose: 0.2 mg Documented by: Hydromorphone HCl (Hydromorphone 0.5 Mg/0.5 Ml Syringe) 1 mg IVP Q2H PRN PRN Reason: PAIN Last Admin: 07/15/21 15:54 Dose: 1 mg Documented by: Sodium Chloride (Normal Saline 0.9%) 500 mls @ 20 mls/hr IV Q24H PRN PRN Reason: TKO RATE Last Infusion: 07/15/21 15:38 Dose: 0 mls/hr Documented by: Multivitamins 10 ml/ TRACE ELEMENTS 1 ml/ Amino Ac/Electrol/Dextrose/Calcium 2,011 mls @ 75 mls/hr IV Q24H [facility]; Protocol Last Infusion: 07/15/21 16:00 Dose: 75 mls/hr Documented by: Cefepime HCl 2 gm/ Sodium (Chloride) 100 mls @ 200 mls/hr IV BID [facility] Last Infusion: 07/15/21 09:49 Dose: Infused Documented by: Fat Emulsion-Soy/MCT/[place]/Fish Oil (Smoflipid 20% Iv Fat Emulsion) 50 gm in 250 mls @ 21 mls/hr IV 1900 JULIETA Last Infusion: 07/15/21 06:19 Dose: Infused Documented by: Levofloxacin (Levaquin 750 Mg/150 Ml) 750 mg in 150 mls @ 100 mls/hr IV Q24H [facility] Last Admin: 07/15/21 15:37 Dose: 100 mls/hr Documented by: Norepinephrine Bitartrate 8 mg (/ Dextrose) 250 mls @ 15 mls/hr IV .[id number] [facility]; Protocol Last Titration: 07/15/21 16:00 Dose: 12 mcg/min, 22.5 mls/hr Documented by: Dexmedetomidine HCl 400 mcg/ (Sodium Chloride) 100 mls @ 4.325 mls/hr IV .Q23H8M PRN; Protocol PRN Reason: Agitation Last Admin: 07/15/21 15:54 Dose: 1 mcg/kg/hr, 21.625 mls/hr Documented by: Vancomycin HCl 1 gm/ Sodium (Chloride) 250 mls @ 167 mls/hr IV Q18H [facility] Last Infusion: 07/15/21 00:16 Dose: Infused Documented by: Levothyroxine Sodium (Levothyroxine 100 Mcg Vial) 130 mcg IVP MoTh@0700 [facility] Last Admin: 07/15/21 06:00 Dose: 130 mcg Documented by: Lorazepam (Lorazepam 2 Mg/Ml Vial) 0.5 mg IVP Q1H PRN PRN Reason: Anxiety Last Admin: 07/15/21 15:53 Dose: 0.5 mg Documented by: Metoclopramide HCl (Metoclopramide 10 Mg/2 Ml Vial) 5 mg IVP Q6HR [facility] Last Admin: 07/15/21 11:25 Dose: 5 mg Documented by: Mineral Oil (Min Oil/Dimethicon/Coconut Oil 92 Gm Tube) 1 applic TOP PRN PRN PRN Reason: Skin Care Last Admin: 07/06/21 20:24 Dose: 1 ea Documented by: Ondansetron HCl (Ondansetron 4 Mg/2 Ml Vial) 4 mg IVP Q6H PRN PRN Reason: Nausea / Vomiting Pantoprazole Sodium (Pantoprazole 40 Mg Vial) 40 mg IVP QDAC [facility] Last Admin: 07/15/21 06:00 Dose: 40 mg Documented by: Phenol/Menthol (Phenol Throat Vesper 177 Ml) 2 sprays MM Q2HR PRN PRN Reason: Throat Pain Last Admin: 07/07/21 11:03 Dose: 2 sprays Documented by: Sodium Chloride (Sodium Chloride Flush 0.9% 10 Ml Syringe) 10 ml IVP 0100,0900,1700 [facility] Last Admin: 07/15/21 08:33 Dose: 10 ml Documented by: Sodium Chloride (Sodium Chloride Flush 0.9% 10 Ml Syringe) 10 ml IVP PRN PRN PRN Reason: NEEDED PER PROVIDER ORDERS Last Admin: 07/12/21 06:23 Dose: 10 ml Documented by: Sodium Chloride (Sodium Chloride Flush 0.9% 10 Ml Syringe) 20 ml IVP PRN PRN PRN Reason: After Blood Draw Last Admin: 07/14/21 02:35 Dose: 20 ml Documented by: Levothyroxine [Synthroid] 75 mcg PO QDAC 07/22/19 Simvastatin [Zocor] 20 mg PO QPM 07/22/19 Torsemide 40 mg PO DAILY 07/22/19 Potassium Chloride 10 meq PO DAILY 01/11/20 EPINEPHrine [Epipen Jr] 0.3 mg IM ONCE PRN 04/12/20 traZODone [Desyrel] 200 mg PO QPM 04/12/20 Meloxicam [Mobic] 7.5 mg PO BID 10/21/20 QUEtiapine [SEROquel] 100 mg PO BID 10/21/20 Objective - Vital Signs/Intake & Output Reviewed Vital Signs: Yes Vital Signs: Vital Signs x48h Temp Pulse Pulse Resp BP Pulse Ox 07/15/21 12:04 81 07/15/21 11:00 79 16 91/38 L 100 07/15/21 10:00 80 16 99 07/15/21 09:48 80 07/15/21 09:00 79 12 96/72 100 07/15/21 08:28 82 07/15/21 08:00 37 C 81 12 99/67 100 07/15/21 07:00 80 12 102/75 100 07/15/21 06:21 83 07/15/21 06:00 79 13 105/62 99 07/15/21 05:00 36.6 C 81 12 104/63 99 07/15/21 04:39 80 Intake & Output: Intake & Output 07/12/21 07/13/21 07/14/21 07/15/21 23:59 23:59 23:59 23:59 Intake Total 4269.739 5284.252 3164.203 2050.363 Output Total 3785 2385 2445 1575 Balance 275.760 6110.252 719.203 475.363 - Objective General Appearance: positive: Other (, On Precedex. When Precedex is lightened, patient does open eyes more, grimaces, bites the tube.) Eyes Bilateral: positive: PERRL. negative: EOMI (Right eye lateral deviation that is chronic) Neck: positive: No JVD. negative: Stiff neck Respiratory: positive: No respiratory distress, Rhonchi. negative: Wheezes, Rales Cardiovascular: positive: Regular rate & rhythm. negative: Gallop/S4, Friction rub Abdomen: positive: No distention, Abnml bowel sounds (Hypoactive), Other (Still no bowel movement since 23 June). negative: Guarding, Rebound Skin: positive: Warm Extremities: positive: Pedal edema (And anasarca) Neurologic/Psychiatric: positive: Other (Intubated, sedated. Does spontaneously move upper extremities and pull against restraints. We will also move her legs against noxious stimuli. Will draw up feet when I check for Babinski's.) - Lab Results Fish Bones: 07/15/21 04:49 07/14/21 04:38 Other Labs: Lab Results x24hrs 07/15/21 07/15/21 07/14/21 Range/Units 06:22 04:49 23:44 WBC 5.5 (4.8-10.8) x10^3/uL RBC 3.01 L (4.20-5.40) 10^6/uL Hgb 9.2 L (12.0-16.0) g/dL Hct 29.4 L (37.0-47.0) % MCV 97.7 (81.0-99.0) fL MCH 30.6 (27.0-31.0) pg MCHC 31.3 L (32.0-36.0) g/dL RDW 22.0 H (12.0-15.0) % Plt Count 198 (130-450) 10^3/uL MPV 10.9 H (7.9-10.8) fL Neut # (Auto) 3.0 (1.5-6.6) 10^3/uL Lymph # (Auto) 1.0 L (1.5-3.5) 10^3/uL [place] # (Auto) 0.6 (0.0-1.0) 10^3/uL Eos # (Auto) 0.7 (0.0-0.7) 10^3/uL Baso # (Auto) 0.1 (0.0-0.1) 10^3/uL Absolute Nucleated RBC 0.00 x10^3/uL Nucleated RBC % 0.0 /100WBC Manual Slide Review Indicated WBC Morphology NORMAL APPEARANCE (NORMAL) Platelet Estimate NORMAL (130-450,000) (NORMAL) Platelet Morphology NORMAL APPEARANCE (NORMAL) RBC Morph Micro Appear 2+ ANISOCYTOSIS (NORMAL) POC Whole Bld Glucose 148 H 143 H (70 - 100) mg/dL Nasal Adenovirus (PCR) Nasal B. parapertussis DNA (PCR) Nasal Coronavir 229E PCR Nasal Coronavir HKU1 PCR Nasal Coronavir NL63 PCR Nasal Coronavir OC43 PCR Nasal Enterovir/Rhinovir PCR Nasal Influenza B PCR Nasal Influenza A PCR Nasal Parainfluen 1 PCR Nasal Parainfluen 2 PCR Nasal Parainfluen 3 PCR Nasal Parainfluen 4 PCR Nasal RSV (PCR) Nasal B.pertussis DNA PCR Nasal C.pneumoniae (PCR) Mk Human Metapneumo PCR Nasal M.pneumoniae (PCR) Nasal SARS-CoV-2 (PCR) 07/14/21 07/14/21 Range/Units 18:09 16:00 WBC (4.8-10.8) x10^3/uL RBC (4.20-5.40) 10^6/uL Hgb (12.0-16.0) g/dL Hct (37.0-47.0) % MCV (81.0-99.0) fL MCH (27.0-31.0) pg MCHC (32.0-36.0) g/dL RDW (12.0-15.0) % Plt Count (130-450) 10^3/uL MPV (7.9-10.8) fL Neut # (Auto) (1.5-6.6) 10^3/uL Lymph # (Auto) (1.5-3.5) 10^3/uL [place] # (Auto) (0.0-1.0) 10^3/uL Eos # (Auto) (0.0-0.7) 10^3/uL Baso # (Auto) (0.0-0.1) 10^3/uL Absolute Nucleated RBC x10^3/uL Nucleated RBC % /100WBC Manual Slide Review WBC Morphology (NORMAL) Platelet Estimate (NORMAL) Platelet Morphology (NORMAL) RBC Morph Micro Appear (NORMAL) POC Whole Bld Glucose 142 H (70 - 100) mg/dL Nasal Adenovirus (PCR) NOT DETECTED Nasal B. parapertussis DNA (PCR) NOT DETECTED Nasal Coronavir 229E PCR NOT DETECTED Nasal Coronavir HKU1 PCR NOT DETECTED Nasal Coronavir NL63 PCR NOT DETECTED Nasal Coronavir OC43 PCR NOT DETECTED Nasal Enterovir/Rhinovir PCR NOT DETECTED Nasal Influenza B PCR NOT DETECTED Nasal Influenza A PCR NOT DETECTED Nasal Parainfluen 1 PCR NOT DETECTED Nasal Parainfluen 2 PCR NOT DETECTED Nasal Parainfluen 3 PCR NOT DETECTED Nasal Parainfluen 4 PCR NOT DETECTED Nasal RSV (PCR) NOT DETECTED Nasal B.pertussis DNA PCR NOT DETECTED Nasal C.pneumoniae (PCR) NOT DETECTED Mk Human Metapneumo PCR NOT DETECTED Nasal M.pneumoniae (PCR) NOT DETECTED Nasal SARS-CoV-2 (PCR) NOT DETECTED ABX Reporting Has patient been on IV antibiotics over the past 48 hours?: Yes Sepsis Event Note (H) - Evaluation Current Stage of Sepsis: Resolved (days ago since surgery) Possible source of Sepsis: positive: GI tract/intra-abdominal - Sepsis Criteria Sepsis Criteria: WBC count greater than 10% bands, SBP drop more than 40mHg, MAP less than 65 mmHg, SBP less than 90 mmHg, Renal: urine output less than 0.5 ml/kg/hr for 2 hours or creatinine gr, Metabolic: lactate > 2 mmol/L Assessment/Plan - Problem List (1) Hospital-acquired pneumonia Impression: She has been in the hospital since June 26. Initially septic from a pe rforated duodenum and was kept intubated postoperatively. Extubated July 05. After extubation she struggled w weak cough, and continued secretions. Apparently this is a problem for her. While intubated much was suctioned out. After extubation it was difficult to keep up with the secretions and she started not being able to cough them up. It is a weak cough. 07/09 had the sudden drop. Required increased 02. ABG confirmed mild hypercapnea with the hypoxia. The CXR confirmed worsening LLL pneumonia. I added Vancomycin and Levaquin to her Cefipime and surgery was ok w stopping the flagyll and diflucan. BiPap used for a short time but she was miserable w the mask leaking around the NG and the lack of fit around her chin. It worked but with the struggle I stopped it and tolerating Robinul is being used but not frequently. Night RN didn't use it. Was stable 07/10 am but by afternoon struggling to breath. Using acessory muscles in spite of O2. Knowing she did not do well w BiPap we intubated afternoon of 07/10 with Anesthesia. PICC line was placed as well. She started getting hypotensive again 07/12. Back on Levophed. We think is because of aggressive diuresis for anasarca. See below. Lasix was stopped 07/13. She received a liter of fluid and Levophed has been maintained to keep a mean arterial pressure of 65. We tried to decrease vent settings 07/14 and she did not want to breath with the SIMV but did start to. This am was stable w vent and levo being weaned but had even to copious secretions and hypotension again. Back up on levo. Please see advance care planning conversation. Our goal is to extubate this patient in the next few days to get her back to her long-term. Plan: Day #6 reintubation emphasize secretion clearance Day #7/ abx so I will stop Cefepime, vancomycin, and Levaquin. nebs Lasix stopped 07/13 Acute respiratory failure recurred requiring reintubation Was kept intubated postop, w/o clear source evidence of PNA, Extubated on 07/05, 02 demand continue to go down, ddx: pulmonary edema, possibly iatrogenic ivf given in periop period, CHF. CXR 07/08 suggestive of worsening CHF. pt remained stable on RA since 07/06 but then lost ground 07/09 and had BiPap. Seemed to stabilize w treatment for HAP. Then intubated again 07/10. Since intubation, she has been easy to ventilate. If anything I am over ventilating her and I have reduced her rate first. Then we reduced her tidal volume. Volume has been reduced twice. We will discuss with respiratory therapy. Work aggressively with SIMV and trials of pressure support and T-piece to get her breathing on her own. The goal is to get her extubated the next 2 to 3 days so she can return to her long-term. [facility] is interested in a tracheostomy. I explained that the patient is not a candidate for tracheostomy yet. Anasarca Due to severe protein calorie malnutrition and fluid overload Assessment/Plan: grossly overloaded still from iatrogenic ivf given in periop period -continue diuresis with daily lasix 20mg iv qd increase to bid 07/07, July 06 she was -1200 cc. July 07 -2234 cc. July 08 -771 . July 09 -393. July 10 is +1813. Lasix increased to 40 bid from 20 bid July 11 +1072 July 12 +484 Off lasix as of pm 07/12July 13 +2899 July 14 +719 Plan: is to continue TPN in face of low blood pressure requiring levophed but try to max nutriton so her 3rd spacing resolves. Off Tube feeds until she has BM since she had a 200 cc residual 07/13 Perforated duodenal ulcer, Status post direct repair Heineke-Mikeleanor Pyloroplasty, Gram Patch POD #18 Assessment/Plan: s/p exploratory laparotomy with repair of posteriorly perforated duodenal ulcer on 06/26 by , course c/b septic shock, prolonged respiratory failure on vent, s/p extubated on 07/05. -Gastrografin challenge 07/09 was consistent with gastric outlet obstruction. Genaro Dobson hopes that this will resolve with conservative management.This may take an extended period of time to resolve. Some literature states as long as 6 weeks. -Leave NG tube in place and suction. Stop all meds thru NG. Given enemas from below 07/09 to try and get things moving. Surgeon would also like low-dose Reglan added. Continue TPN for now via RIJ CVC(06/26) Given mentation, pt likely needs modality for terminal clerk feeding, PICC line inserted 07/10 and discontinued RIJ cvc, to reduce risks of infection. Repeat UGI study done 07/11 and shows partial gastric outlet obstruction. Dr. Dobson opted to started very low rate tube feeds. Still on TPN. Reglan was prn and changed to fixed schedule since it does help according to RN NO tube feeds since 07/13 Go up on TPN delivery for calories. Discussed with nutrition Iron deficiency anemia Assessment/Plan: Started Iron 07/04, h/h slowly trending down wo signs of active bleeding, as per surgery, wound looks good without hematoma. plt count stable despite dvt ppx with LMWH, -h/h stable today, target hgb>7, transfuse as needed, -h/h seems to be trending up. Today hgb at 9.2. Ileus following gastrointestinal surgery Assessment/Plan: Reviewed abd xray Ileus seen Patient has received lactulose via NGT, but it does not appear to be helping per surgeon.Started low-dose Reglan 07/10. Because she had total lack of dye passing w gastrograffin all NG input stopped 07/10 On review of followup films 07/08, dye in colon 24 hours later. Repeat dye study 07/12 still not completely open but no obstructed in colon. She is off tube feedings right now. Continue TPN. Chronic, stable, resolved, Acute encephalopathy resolved Impression: pt still follows minimal commands, still lethargic since off on sedation in 10 AM but she does respond more and more, reportedly pt has poor cognitive function at baseline. -will continue to monitor mental status, consider starting PT eval for dispo once pt is more lucid. Because of the precedex and ativan difficult to assess if she has mentation or not now. but she is openining her eyes this am. Acute peritonitis Resolved s/p perforated DU. Peritoneal fluid culture on 06/26 ngtd. BCX not available. shock resolved, off on vasopressor 10 AM. -completed cefipime, flagyl and diflucan per General Surgery and per note they were ok with change for HAP. Hypothyroidism Qualifiers: Hypothyroidism type: acquired Qualified Code(s): E03.9 - Hypothyroidism, unspecified Assessment/Plan: Continue synthroid. It was discontinued on July 05. Unclear what the reasoning was. However I have discussed with pharmacy and we are resuming 130 mcg on Mondays and . 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 Echo December 2019 had ejection fraction of 65 to 70%. Mild tricuspid regurgitation. RVSP was 43 mmHg. Echo January 2020 had ejection fraction of 55 to 60%. Echocardiogram done June 27, 2021 has an ejection fraction of 40 to 45% and her systolic function is globally impaired. Right ventricular pacing evident. Was placed in September 2020? Mild to moderate right ventricular enlargement. Moderate to severe mitral regurgitation. Moderate LAE, severe ORI. Septic shock, RESOLVED secondary to presumed intraabdominal infection s/p perforated DU. Peritoneal fluid culture on 06/26 ngtd. BCX not available. shock resolved, off on vasopressor 10/10 AM. DVT prophylaxis Lovenox continues
[2021-07-15] MEDS: levoFLOXacin 750 MG/150 ML 750 MG/150 ML BAG IV SCH (15:37)
[2021-07-15 16:07] LABS: VANCOMYCIN,TROUGH 16.8 ug/mL (10.0-20.0)
--- NOTE | 2021-07-15 17:14 | PROVIDER PROGRESS NOTE ---
Subjective - General Admit Date: 06/26/21 Procedure Date: 06/26/21 Post Op Days: 19 Procedure Performed: Exploratory laparotomy with repair of posterior duodenal ulcer - Review of Systems Wound/Incisions: positive: Healing well Drain Type: 19 [place] Tanner Drain Output Description: Serosanguineous - Other Other Information/Narrative: Remains intubated and mechanically ventilated. She is sedated. We did not restart tube feeds. She has returned to full dose TPN.Please see Dr. Pang's note for discharge planning Objective - Patient Data Vital Signs: Vital Signs x48h Temp Pulse Pulse Resp BP Pulse Ox 07/15/21 16:03 80 07/15/21 16:00 36.6 C 80 20 95/72 100 07/15/21 15:00 83 16 113/46 L 100 07/15/21 14:00 89 16 123/42 L 100 07/15/21 13:40 92 07/15/21 13:00 85 18 116/52 L 100 07/15/21 12:04 81 07/15/21 12:00 36.8 C 80 20 108/79 95 07/15/21 11:00 79 16 91/38 L 100 07/15/21 10:00 80 16 99 07/15/21 09:48 80 Weight: Weight 07/13/21 07/14/21 07/15/21 23:59 23:59 23:59 Weight (kg) 87.2 kg 88.4 kg Intake & Output: Intake and Output Totals x24h 07/13/21 07/14/21 07/15/21 23:59 23:59 23:59 Intake Total 5284.252 3164.203 2693.227 Output Total 2385 2445 2005 Balance 2899.252 719.203 688.227 - Lab Results Lab Results: 07/15/21 04:49 07/14/21 04:38 Other Lab Results: Lab Results x24hrs 07/15/21 07/15/21 07/15/21 Range/Units 15:30 12:39 06:22 WBC (4.8-10.8) x10^3/uL RBC (4.20-5.40) 10^6/uL Hgb (12.0-16.0) g/dL Hct (37.0-47.0) % MCV (81.0-99.0) fL MCH (27.0-31.0) pg MCHC (32.0-36.0) g/dL RDW (12.0-15.0) % Plt Count (130-450) 10^3/uL MPV (7.9-10.8) fL Neut # (Auto) (1.5-6.6) 10^3/uL Lymph # (Auto) (1.5-3.5) 10^3/uL [place] # (Auto) (0.0-1.0) 10^3/uL Eos # (Auto) (0.0-0.7) 10^3/uL Baso # (Auto) (0.0-0.1) 10^3/uL Absolute Nucleated RBC x10^3/uL Nucleated RBC % /100WBC Manual Slide Review WBC Morphology (NORMAL) Platelet Estimate (NORMAL) Platelet Morphology (NORMAL) RBC Morph Micro Appear (NORMAL) POC Whole Bld Glucose 154 H 148 H (70 - 100) mg/dL Nasal Adenovirus (PCR) Nasal B. parapertussis DNA (PCR) Nasal Coronavir 229E PCR Nasal Coronavir HKU1 PCR Nasal Coronavir NL63 PCR Nasal Coronavir OC43 PCR Nasal Enterovir/Rhinovir PCR Nasal Influenza B PCR Nasal Influenza A PCR Nasal Parainfluen 1 PCR Nasal Parainfluen 2 PCR Nasal Parainfluen 3 PCR Nasal Parainfluen 4 PCR Nasal RSV (PCR) Nasal B.pertussis DNA PCR Nasal C.pneumoniae (PCR) Mk Human Metapneumo PCR Nasal M.pneumoniae (PCR) Nasal SARS-CoV-2 (PCR) Last Dose Date Not Reportable Last Dose Time Not Reportable Vancomycin Trough 16.8 (10.0-20.0) ug/mL 07/15/21 07/14/21 07/14/21 Range/Units 04:49 23:44 18:09 WBC 5.5 (4.8-10.8) x10^3/uL RBC 3.01 L (4.20-5.40) 10^6/uL Hgb 9.2 L (12.0-16.0) g/dL Hct 29.4 L (37.0-47.0) % MCV 97.7 (81.0-99.0) fL MCH 30.6 (27.0-31.0) pg MCHC 31.3 L (32.0-36.0) g/dL RDW 22.0 H (12.0-15.0) % Plt Count 198 (130-450) 10^3/uL MPV 10.9 H (7.9-10.8) fL Neut # (Auto) 3.0 (1.5-6.6) 10^3/uL Lymph # (Auto) 1.0 L (1.5-3.5) 10^3/uL [place] # (Auto) 0.6 (0.0-1.0) 10^3/uL Eos # (Auto) 0.7 (0.0-0.7) 10^3/uL Baso # (Auto) 0.1 (0.0-0.1) 10^3/uL Absolute Nucleated RBC 0.00 x10^3/uL Nucleated RBC % 0.0 /100WBC Manual Slide Review Indicated WBC Morphology NORMAL APPEARANCE (NORMAL) Platelet Estimate NORMAL (130-450,000) (NORMAL) Platelet Morphology NORMAL APPEARANCE (NORMAL) RBC Morph Micro Appear 2+ ANISOCYTOSIS (NORMAL) POC Whole Bld Glucose 143 H 142 H (70 - 100) mg/dL Nasal Adenovirus (PCR) Nasal B. parapertussis DNA (PCR) Nasal Coronavir 229E PCR Nasal Coronavir HKU1 PCR Nasal Coronavir NL63 PCR Nasal Coronavir OC43 PCR Nasal Enterovir/Rhinovir PCR Nasal Influenza B PCR Nasal Influenza A PCR Nasal Parainfluen 1 PCR Nasal Parainfluen 2 PCR Nasal Parainfluen 3 PCR Nasal Parainfluen 4 PCR Nasal RSV (PCR) Nasal B.pertussis DNA PCR Nasal C.pneumoniae (PCR) Mk Human Metapneumo PCR Nasal M.pneumoniae (PCR) Nasal SARS-CoV-2 (PCR) Last Dose Date Last Dose Time Vancomycin Trough (10.0-20.0) ug/mL 07/14/21 Range/Units 16:00 WBC (4.8-10.8) x10^3/uL RBC (4.20-5.40) 10^6/uL Hgb (12.0-16.0) g/dL Hct (37.0-47.0) % MCV (81.0-99.0) fL MCH (27.0-31.0) pg MCHC (32.0-36.0) g/dL RDW (12.0-15.0) % Plt Count (130-450) 10^3/uL MPV (7.9-10.8) fL Neut # (Auto) (1.5-6.6) 10^3/uL Lymph # (Auto) (1.5-3.5) 10^3/uL [place] # (Auto) (0.0-1.0) 10^3/uL Eos # (Auto) (0.0-0.7) 10^3/uL Baso # (Auto) (0.0-0.1) 10^3/uL Absolute Nucleated RBC x10^3/uL Nucleated RBC % /100WBC Manual Slide Review WBC Morphology (NORMAL) Platelet Estimate (NORMAL) Platelet Morphology (NORMAL) RBC Morph Micro Appear (NORMAL) POC Whole Bld Glucose (70 - 100) mg/dL Nasal Adenovirus (PCR) NOT DETECTED Nasal B. parapertussis DNA (PCR) NOT DETECTED Nasal Coronavir 229E PCR NOT DETECTED Nasal Coronavir HKU1 PCR NOT DETECTED Nasal Coronavir NL63 PCR NOT DETECTED Nasal Coronavir OC43 PCR NOT DETECTED Nasal Enterovir/Rhinovir PCR NOT DETECTED Nasal Influenza B PCR NOT DETECTED Nasal Influenza A PCR NOT DETECTED Nasal Parainfluen 1 PCR NOT DETECTED Nasal Parainfluen 2 PCR NOT DETECTED Nasal Parainfluen 3 PCR NOT DETECTED Nasal Parainfluen 4 PCR NOT DETECTED Nasal RSV (PCR) NOT DETECTED Nasal B.pertussis DNA PCR NOT DETECTED Nasal C.pneumoniae (PCR) NOT DETECTED Mk Human Metapneumo PCR NOT DETECTED Nasal M.pneumoniae (PCR) NOT DETECTED Nasal SARS-CoV-2 (PCR) NOT DETECTED Last Dose Date Last Dose Time Vancomycin Trough (10.0-20.0) ug/mL - Current Medications Current Medications: Current Medications Generic Name Dose Route Start Last Admin Trade Name Freq PRN Reason Stop Dose Admin Bisacodyl 10 mg 07/14/21 09:00 07/15/21 08:32 Bisacodyl 10 Mg Supp TN 10 mg DAILY JULIETA Administration Chlorhexidine Gluconate 15 ml 06/27/21 21:00 07/15/21 08:33 Chlorhexidine Gluconate 15 Ml Udc PO 15 ml BID JULIETA Administration Enoxaparin Sodium 40 mg 06/28/21 09:00 07/15/21 08:33 Enoxaparin 40 Mg/0.4 Ml Syringe SUBQ 40 mg DAILY JULIETA Administration Glycopyrrolate 0.2 mg 06/28/21 21:17 07/15/21 12:26 Glycopyrrolate 1 Mg/5 Ml Vial SUBQ 0.2 mg Q6H PRN Administration Excessive Secretions Hydromorphone HCl 1 mg 07/14/21 21:41 07/15/21 15:54 Hydromorphone 0.5 Mg/0.5 Ml Syringe IVP 1 mg Q2H PRN Administration PAIN Sodium Chloride 500 mls @ 20 mls/hr 06/26/21 23:03 07/15/21 15:38 Normal Saline 0.9% IV 0 mls/hr Q24H PRN Infusion TKO RATE Multivitamins 10 ml/ TRACE 2,011 mls @ 75 mls/hr 06/27/21 19:00 07/15/21 16:00 ELEMENTS 1 ml/ Amino Ac/ IV 75 mls/hr Electrol/Dextrose/Calcium Q24H JULIETA Infusion Protocol Cefepime HCl 2 gm/ Sodium 100 mls @ 200 mls/hr 06/27/21 18:00 07/15/21 09:49 Chloride IV Infused BID JULIETA Infusion Fat Emulsion-Soy/MCT/[place]hel[place]/Fish Oil 50 gm in 250 mls @ 21 mls/hr 07/05/21 19:00 07/15/21 06:19 Smoflipid 20% Iv Fat Emulsion IV Infused 1900 JULIETA Infusion Levofloxacin 750 mg in 150 mls @ 100 mls/hr 07/09/21 15:00 07/15/21 15:37 Levaquin 750 Mg/150 Ml IV 100 mls/hr Q24H JULIETA Administration Norepinephrine Bitartrate 8 mg 250 mls @ 15 mls/hr 07/10/21 12:00 07/15/21 16:00 / Dextrose IV 12 mcg/min .[id number] JULIETA 22.5 mls/hr Titration Protocol 8 MCG/MIN Dexmedetomidine HCl 400 mcg/ 100 mls @ 4.325 mls/hr 07/10/21 11:20 07/15/21 15:54 Sodium Chloride IV 1 mcg/kg/hr .Q23H8M PRN 21.625 mls/hr Agitation Administration Protocol 0.2 MCG/KG/HR Vancomycin HCl 1 gm/ Sodium 250 mls @ 167 mls/hr 07/11/21 22:00 07/15/21 00:16 Chloride IV Infused Q18H JULIETA Infusion Levothyroxine Sodium 130 mcg 07/12/21 12:00 07/15/21 06:00 Levothyroxine 100 Mcg Vial IVP 130 mcg MoTh@0700 JULIETA Administration Lorazepam 0.5 mg 06/26/21 20:54 07/15/21 15:53 Lorazepam 2 Mg/Ml Vial IVP 0.5 mg Q1H PRN Administration Anxiety Metoclopramide HCl 5 mg 07/12/21 10:00 07/15/21 11:25 Metoclopramide 10 Mg/2 Ml Vial IVP 5 mg Q6HR JULIETA Administration Mineral Oil 1 applic 07/01/21 01:24 07/06/21 20:24 Min Oil/Dimethicon/Coconut Oil 92 Gm Tube TOP 1 ea PRN PRN Administration Skin Care Pantoprazole Sodium 40 mg 06/27/21 07:00 07/15/21 06:00 Pantoprazole 40 Mg Vial IVP 40 mg QDAC JULIETA Administration Phenol/Menthol 2 sprays 07/05/21 21:24 07/07/21 11:03 Phenol Throat Banner 177 Ml MM 2 sprays Q2HR PRN Administration Throat Pain Sodium Chloride 10 ml 06/27/21 01:00 07/15/21 08:33 Sodium Chloride Flush 0.9% 10 Ml Syringe IVP 10 ml 0100,0900,1700 JULIETA Administration Sodium Chloride 10 ml 06/26/21 20:54 07/12/21 06:23 Sodium Chloride Flush 0.9% 10 Ml Syringe IVP 10 ml PRN PRN Administration NEEDED PER PROVIDER ORDERS Sodium Chloride 20 ml 06/26/21 23:03 07/14/21 02:35 Sodium Chloride Flush 0.9% 10 Ml Syringe IVP 20 ml PRN PRN Administration After Blood Draw - Physical Exam Abdomen: positive: Nml bowel sounds ABX Reporting Has patient been on IV antibiotics over the past 48 hours?: Yes Impression/Plan - Problem List Problem List: Ill and unfortunate 81-year-old lady initially admitted more than 2 weeks ago with a perforated posterior duodenal ulcer and peritonitis. 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 For this reason, her tube feed residuals are intermittently high. At the moment they have been stopped.Plan is for CPAP trials and trials off of sedation with a goal of extubation if possible.No issue with continuing TPN for now.She has not had a bowel movement in many days but there is Gastrografin visually present within her colon on x-rays.She has received one enema which she retained without any change. She has received Dulcolax suppository with no output.Perhaps we will try again when she is more awake.Greatly appreciate all of the efforts of the hospitalist service
[2021-07-15] MEDS: FAT EMUL/SOY/MCT/OLIV/FISH OIL 50 GM/250 ML BAG IV SCH (18:14)
[2021-07-15] MEDS: TPN (CLINIMIX E 5/15) 2,000 ML with MULTIVITAMIN 10 ML, TRACE ELEMENTS 1 ML IV SCH ×3 (18:14)
[2021-07-15] MEDS: SODIUM CHLORIDE 0.9% 500 ML IV PRN (18:17)
[2021-07-16] MEDS: DEXMEDETOMIDINE 400 MCG in SODIUM CHLORIDE 0.9% 100ML 96 ML IV PRN ×3 (01:04→13:57)
[2021-07-16 05:10] LABS: BASOPHILS # (AUTO) 0.1 10^3/uL (0.0-0.1); BASOPHILS % (AUTO) 0.9 %; EOSINOPHILS # (AUTO) 0.9 10^3/uL (0.0-0.7); EOSINOPHILS % (AUTO) 15.6 %; HCT - HEMATOCRIT 29.9 % (37.0-47.0); HGB - HEMOGLOBIN 9.1 g/dL (12.0-16.0); LYMPHOCYTES # (AUTO) 1.1 10^3/uL (1.5-3.5); LYMPHOCYTES % (AUTO) 19.6 %; MEAN CORPUSCULAR HGB CONC 30.4 g/dL (32.0-36.0); MEAN CORPUSCULAR VOLUME 98.7 fL (81.0-99.0); MEAN PLATELET VOLUME 11.8 fL (7.9-10.8); MONOCYTES # (AUTO) 0.7 10^3/uL (0.0-1.0); MONOCYTES % (AUTO) 11.7 %; NEUTROPHILS % (AUTO) 51.3 %; PLT - PLATELET COUNT 191 10^3/uL (130-450); RED BLOOD COUNT 3.03 10^6/uL (4.20-5.40); RED CELL DISTRIBUTION WIDTH 21.7 % (12.0-15.0); WHITE BLOOD COUNT 5.8 x10^3/uL (4.8-10.8)
[2021-07-16 05:19] LABS: SLIDE REVIEW? Indicated
[2021-07-16 05:32] LABS: PLATELET ESTIMATE, MANUAL NORMAL (130-450,000) (NORMAL); PLATELET MORPHOLOGY NORMAL APPEARANCE (NORMAL); RBC MORPHOLOGY (MULTIPLE) 2+ ANISOCYTOSIS (NORMAL); WBC MORPHOLOGY (MULTIPLE) NORMAL APPEARANCE (NORMAL)
[2021-07-16] MEDS: METOCLOPRAMIDE 10 MG/2 ML VIAL IVP SCH ×3 (06:40→18:24)
[2021-07-16] MEDS: PANTOPRAZOLE 40 MG VIAL IVP SCH (06:41)
[2021-07-16] MEDS: SODIUM CHLORIDE FLUSH 0.9% 10 ML SYRINGE IVP SCH ×3 (06:41→17:06)
--- NOTE | 2021-07-16 07:32 | PROVIDER PROGRESS NOTE ---
Assessment/Plan - Problem List (1) Septic shock Assessment/Plan: Improved/resolved. 2/2 peritonitis which is resolved. Patient is currently not on any antibiotics. (2) Perforated duodenal ulcer Assessment/Plan: Postop day #21. Status post ex lap with repair of posterior duodenal ulcer General surgery following. Patient had a bowel movement today. Tube feed initiation approved from surgery's perspective. Nutrition to assist with management of tube feeds. (3) On mechanically assisted ventilation Assessment/Plan: Patient was re-intubated due to failure to manage secretions. This is day #7 since re-intubation Will wean down Precedex and attempt to extubate tomorrow. If patient fails extubation trial, will discuss with decision makers regarding trach placement. (4) Chronic diastolic heart failure Assessment/Plan: Echo December 2019 had ejection fraction of 65 to 70%. Mild tricuspid regurgitation. RVSP was 43 mmHg. Echo January 2020 had ejection fraction of 55 to 60%. Echocardiogram done June 27, 2021 has an ejection fraction of 40 to 45% and her systolic function is globally impaired. Right ventricular pacing evident. Was placed in September 2020? Mild to moderate right ventricular enlargement. Moderate to severe mitral regurgitation. Moderate LAE, severe ORI. (5) History of atrial fibrillation Assessment/Plan: Echo December 2019 had ejection fraction of 65 to 70%. Mild tricuspid regurgitation. RVSP was 43 mmHg. Echo January 2020 had ejection fraction of 55 to 60%. Echocardiogram done June 27, 2021 has an ejection fraction of 40 to 45% and her systolic function is globally impaired. Right ventricular pacing evident. Was placed in September 2020? Mild to moderate right ventricular enlargement. Moderate to severe mitral regurgitation. Moderate LAE, severe ORI. Rate controlled. Currently not on any medication. (6) History of pulmonary embolism Assessment/Plan: DVT prophylaxis with Lovenox subcu 40mg (7) Hypothyroidism Assessment/Plan: On Synthroid 130 mcg IV Mondays and . (8) Schizophrenia Assessment/Plan: On Seroquel (9) Anasarca Assessment/Plan: TPN will be switched to tube feeds today since patient had a bowel movement. Continues to be on Levophed due to low blood pressures. (10) Iron deficiency anemia Assessment/Plan: Hemoglobin stable at 9.1. (11) Hospital-acquired pneumonia Assessment/Plan: Patient completed antibiotic regiment of vancomycin, Levaquin and cefepime. This was discontinued on 07/15/2021 She also used to be on Flagyl and Diflucan which were discontinued. - Current Meds Current Meds: Current Medications Generic Name Dose Route Start Last Admin Trade Name Freq PRN Reason Stop Dose Admin Bisacodyl 10 mg 07/14/21 09:00 07/15/21 08:32 Bisacodyl 10 Mg Supp [place] 10 mg DAILY JULIETA Administration Chlorhexidine Gluconate 15 ml 06/27/21 21:00 07/15/21 21:09 Chlorhexidine Gluconate 15 Ml Udc PO 15 ml BID JULIETA Administration Enoxaparin Sodium 40 mg 06/28/21 09:00 07/15/21 08:33 Enoxaparin 40 Mg/0.4 Ml Syringe SUBQ 40 mg DAILY JULIETA Administration Glycopyrrolate 0.2 mg 06/28/21 21:17 07/15/21 12:26 Glycopyrrolate 1 Mg/5 Ml Vial SUBQ 0.2 mg Q6H PRN Administration Excessive Secretions Hydromorphone HCl 1 mg 07/14/21 21:41 07/15/21 21:08 Hydromorphone 0.5 Mg/0.5 Ml Syringe IVP 1 mg Q2H PRN Administration PAIN Sodium Chloride 500 mls @ 20 mls/hr 06/26/21 23:03 07/15/21 18:17 Normal Saline 0.9% IV 20 mls/hr Q24H PRN Administration TKO RATE Multivitamins 10 ml/ TRACE 2,011 mls @ 75 mls/hr 06/27/21 19:00 07/15/21 18:14 ELEMENTS 1 ml/ Amino Ac/ IV 75 mls/hr Electrol/Dextrose/Calcium Q24H JULIETA Administration Protocol Fat Emulsion-Soy/MCT/[place]/Fish Oil 50 gm in 250 mls @ 21 mls/hr 07/05/21 19:00 07/15/21 18:14 Smoflipid 20% Iv Fat Emulsion IV 21 mls/hr 1900 JULIETA Administration Norepinephrine Bitartrate 8 mg 250 mls @ 15 mls/hr 07/10/21 12:00 07/16/21 00:59 / Dextrose IV 12 mcg/min .[id number] JULIETA 22.5 mls/hr Administration Protocol 8 MCG/MIN Dexmedetomidine HCl 400 mcg/ 100 mls @ 4.325 mls/hr 07/10/21 11:20 07/16/21 01:04 Sodium Chloride IV 1 mcg/kg/hr .Q23H8M PRN 21.625 mls/hr Agitation Administration Protocol 0.2 MCG/KG/HR Levothyroxine Sodium 130 mcg 07/12/21 12:00 07/15/21 06:00 Levothyroxine 100 Mcg Vial IVP 130 mcg MoTh@0700 JULIETA Administration Lorazepam 0.5 mg 06/26/21 20:54 07/15/21 23:47 Lorazepam 2 Mg/Ml Vial IVP 0.5 mg Q1H PRN Administration Anxiety Metoclopramide HCl 5 mg 07/12/21 10:00 07/16/21 06:40 Metoclopramide 10 Mg/2 Ml Vial IVP 5 mg Q6HR JULIETA Administration Mineral Oil 1 applic 07/01/21 01:24 07/06/21 20:24 Min Oil/Dimethicon/Coconut Oil 92 Gm Tube TOP 1 ea PRN PRN Administration Skin Care Pantoprazole Sodium 40 mg 06/27/21 07:00 07/16/21 06:41 Pantoprazole 40 Mg Vial IVP 40 mg QDAC JULIETA Administration Phenol/Menthol 2 sprays 07/05/21 21:24 07/07/21 11:03 Phenol Throat [place] 177 Ml MM 2 sprays Q2HR PRN Administration Throat Pain Sodium Chloride 10 ml 06/27/21 01:00 07/16/21 06:41 Sodium Chloride Flush 0.9% 10 Ml Syringe IVP 10 ml 0100,0900,1700 JULIETA Administration Sodium Chloride 10 ml 06/26/21 20:54 07/12/21 06:23 Sodium Chloride Flush 0.9% 10 Ml Syringe IVP 10 ml PRN PRN Administration NEEDED PER PROVIDER ORDERS Sodium Chloride 20 ml 06/26/21 23:03 07/14/21 02:35 Sodium Chloride Flush 0.9% 10 Ml Syringe IVP 20 ml PRN PRN Administration After Blood Draw - Lab Result Fish Bone Diagrams: 07/16/21 04:47 07/16/21 04:47 - Additional Planning My Orders: My Active Orders 07/16/21 07:15 Initiate NonViolent Restraint [RC] .PerProtocol 07/16/21 07:28 BMP - BASIC METABOLIC PANEL [CHEM] Routine 07/17/21 05:00 BMP - BASIC METABOLIC PANEL [CHEM] DAILYLAB 07/18/21 05:00 BMP - BASIC METABOLIC PANEL [CHEM] DAILYLAB 07/19/21 05:00 BMP - BASIC METABOLIC PANEL [CHEM] DAILYLAB 07/20/21 05:00 BMP - BASIC METABOLIC PANEL [CHEM] DAILYLAB 07/21/21 05:00 BMP - BASIC METABOLIC PANEL [CHEM] DAILYLAB Subjective - Subjective Patient Reports: Other (Patient is sedated and intubated and unable to provide history. Occasionally she appears restless. Patient had a moderate bowel movement today) Objective Vital Signs: Vital Signs - 24 hr 07/15/21 07/15/21 07/15/21 08:00 08:28 09:00 Temperature 37 C Heart Rate 82 Heart Rate [ 81 79 Monitoring electrodes] Respiratory 12 12 Rate Blood Pressure 99/67 96/72 [Left Brachial artery] O2 Saturation 100 100 07/15/21 07/15/21 07/15/21 09:48 10:00 11:00 Temperature Heart Rate 80 Heart Rate [ 80 79 Monitoring electrodes] Respiratory 16 16 Rate Blood Pressure 91/38 L [Left Brachial artery] O2 Saturation 99 100 07/15/21 07/15/21 07/15/21 12:00 12:04 13:00 Temperature 36.8 C Heart Rate 81 Heart Rate [ 80 85 Monitoring electrodes] Respiratory 20 18 Rate Blood Pressure 108/79 116/52 L [Left Brachial artery] O2 Saturation 95 100 07/15/21 07/15/21 07/15/21 13:40 14:00 15:00 Temperature Heart Rate 92 Heart Rate [ 89 83 Monitoring electrodes] Respiratory 16 16 Rate Blood Pressure 123/42 L 113/46 L [Left Brachial artery] O2 Saturation 100 100 07/15/21 07/15/21 07/15/21 16:00 16:03 17:00 Temperature 36.6 C Heart Rate 80 Heart Rate [ 80 83 Monitoring electrodes] Respiratory 20 16 Rate Blood Pressure 95/72 96/39 L [Left Brachial artery] O2 Saturation 100 100 07/15/21 07/15/21 07/15/21 17:28 18:00 19:00 Temperature Heart Rate 84 Heart Rate [ 83 83 Monitoring electrodes] Respiratory 18 16 Rate Blood Pressure 94/52 L 110/50 L [Left Brachial artery] O2 Saturation 100 100 07/15/21 07/15/2121 19:35 20:00 21:00 Temperature 36.7 C Heart Rate 85 Heart Rate [ 84 82 Monitoring electrodes] Respiratory 13 23 Rate Blood Pressure 75/65 L 116/78 [Left Brachial artery] O2 Saturation 100 100 07/15/21 07/15/21 07/15/21 21:35 22:00 23:00 Temperature Heart Rate 84 Heart Rate [ 83 82 Monitoring electrodes] Respiratory 12 12 Rate Blood Pressure 110/47 L 110/44 L [Left Brachial artery] O2 Saturation 100 99 07/15/21 07/16/21 07/16/21 23:40 00:00 01:00 Temperature 36.6 C Heart Rate 81 Heart Rate [ 81 83 Monitoring electrodes] Respiratory 12 16 Rate Blood Pressure 94/57 L 105/49 L [Left Brachial artery] O2 Saturation 98 98 07/16/21 07/16/21 07/16/21 01:45 02:00 03:00 Temperature Heart Rate 78 Heart Rate [ 82 91 Monitoring electrodes] Respiratory 15 14 Rate Blood Pressure 101/46 L 111/43 L [Left Brachial artery] O2 Saturation 100 100 07/16/21 07/16/21 07/16/21 03:45 04:00 05:00 Temperature 36.7 C Heart Rate 78 Heart Rate [ 81 80 Monitoring electrodes] Respiratory 12 17 Rate Blood Pressure 109/56 L 104/44 L [Left Brachial artery] O2 Saturation 100 100 07/16/21 07/16/21 05:35 06:00 Temperature Heart Rate 77 Heart Rate [ 81 Monitoring electrodes] Respiratory 12 Rate Blood Pressure 105/45 L [Left Brachial artery] O2 Saturation 100 Oxygen O2 Source Mechanical ventilator I&O (Last 24 Hrs): Intake and Output Totals x24h 07/14/21 07/15/21 07/16/21 23:59 23:59 23:59 Intake Total 3164.203 3154.481 256.600 Output Total 2445 2720 870 Balance 719.203 434.481 -613.400 General: Mild distress, Other (Sedated and intubated. Intermittently opens eyes. Copious) HEENT: Atraumatic, PERRLA, EOMI Neck: Supple, No JVD Neuro: Other (Sedated and intubated) Cardiovascular: Regular rate Respiratory: Chest non-tender, No respiratory distress, Breath sounds nml Abdomen: Normal bowel sounds, Soft, No tenderness Extremities: No clubbing, No cyanosis Skin: No rashes, No breakdown, No significant lesion - Results Results: Laboratory Results WBC 5.8 x10^3/uL (4.8-10.8) 07/16/21 04:47 RBC 3.03 10^6/uL (4.20-5.40) L 07/16/21 04:47 Hgb 9.1 g/dL (12.0-16.0) L 07/16/21 04:47 Hct 29.9 % (37.0-47.0) L 07/16/21 04:47 MCV 98.7 fL (81.0-99.0) 07/16/21 04:47 MCH 30.0 pg (27.0-31.0) 07/16/21 04:47 MCHC 30.4 g/dL (32.0-36.0) L 07/16/21 04:47 RDW 21.7 % (12.0-15.0) H 07/16/21 04:47 Plt Count 191 10^3/uL (130-450) 07/16/21 04:47 MPV 11.8 fL (7.9-10.8) H 07/16/21 04:47 Neut # (Auto) 3.0 10^3/uL (1.5-6.6) 07/16/21 04:47 Lymph # (Auto) 1.1 10^3/uL (1.5-3.5) L 07/16/21 04:47 [place] # (Auto) 0.7 10^3/uL (0.0-1.0) 07/16/21 04:47 Eos # (Auto) 0.9 10^3/uL (0.0-0.7) H 07/16/21 04:47 Baso # (Auto) 0.1 10^3/uL (0.0-0.1) 07/16/21 04:47 Absolute Nucleated RBC 0.00 x10^3/uL 07/16/21 04:47 Total Counted 100 07/11/21 05:00 Band Neuts % (Manual) 4 % (0-10) 07/11/21 05:00 Abnorm Lymph % (Manual) 0 % 07/11/21 05:00 Metamyelocytes % 1 % (-0) H 07/11/21 05:00 Myelocytes % 1 % (-0) H 07/11/21 05:00 Nucleated RBC % 0.0 /100WBC 07/16/21 04:47 Neutrophils # (Manual) 4.7 10^3/uL (1.5-6.6) 07/11/21 05:00 Lymphocytes # (Manual) 0.7 10^3/uL (1.5-3.5) L 07/11/21 05:00 Monocytes # (Manual) 0.4 10^3/uL (0.0-1.0) 07/11/21 05:00 Eosinophils # (Manual) 0.1 10^3/uL (0-0.7) 07/11/21 05:00 Basophils # (Manual) 0.0 10^3/uL (0-0.1) 07/11/21 05:00 Differential Comment MANUAL DIFFERENTIAL 07/11/21 05:00 Manual Slide Review Indicated 07/16/21 04:47 WBC Morphology NORMAL APPEARANCE (NORMAL) 07/16/21 04:47 Platelet Estimate NORMAL (130-450,000) (NORMAL) 07/16/21 04:47 Platelet Morphology NORMAL APPEARANCE (NORMAL) 07/16/21 04:47 RBC Morph Micro Appear 2+ ANISOCYTOSIS (NORMAL) 07/16/21 04:47 Bld Gas Analysis Time 0532 07/14/21 05:25 Sample Site LEFT RADIAL 07/14/21 05:25 ABG pH 7.52 (7.35-7.45) H 07/14/21 05:25 ABG pCO2 34 mmHg (34-45) 07/14/21 05:25 ABG pO2 129 mmHg (80-100) H 07/14/21 05:25 ABG HCO3 27.2 mmol/L (22.0-26.0) H 07/14/21 05:25 ABG Total CO2 28.2 MMOL/L (21.0-29.0) 07/14/21 05:25 ABG O2 Saturation 99 % (94-98) H 07/14/21 05:25 ABG Base Excess 4.4 mmol/L (-2.0-3.0) H 07/14/21 05:25 [place] Test POSITIVE 07/14/21 05:25 VBG pH 7.344 (7.31-7.41) 07/04/21 04:43 Ionized Calcium 1.16 mmol/L (1.15-1.33) 07/04/21 04:43 Respiration Rate 12 b/min 07/14/21 05:25 O2 Delivery Device VENTILATOR 07/14/21 05:25 O2 Liters/Min 15.00 LPM 07/09/21 14:25 Vent Mode ASSIST/CONTROL 07/14/21 05:25 FiO2 35.00 07/14/21 05:25 Tidal Volume 450 mL 07/14/21 05:25 PEEP 5 cmH2O 07/14/21 05:25 Pressure Support Vent 12 cmH2O 07/05/21 11:00 IPAP Not Reportable 06/27/21 05:43 Sodium 134 mmol/L (135-145) L 07/14/21 04:38 Potassium 3.7 mmol/L (3.5-5.0) 07/14/21 04:38 Chloride 101 mmol/L (101-111) 07/14/21 04:38 Carbon Dioxide 27 mmol/L (21-32) 07/14/21 04:38 Anion Gap 6.0 (6-13) 07/14/21 04:38 BUN 22 mg/dL (6-20) H 07/14/21 04:38 Creatinine 0.6 mg/dL (0.4-1.0) 07/14/21 04:38 Estimated GFR (MDRD) 96 (>89) 07/14/21 04:38 Glucose 160 mg/dL (70-100) H 07/14/21 04:38 POC Whole Bld Glucose 137 mg/dL (70 - 100) H 07/16/21 06:48 Lactic Acid 1.7 mmol/L (0.5-2.2) 07/13/21 03:18 Calcium 7.6 mg/dL (8.5-10.3) L 07/14/21 04:38 Ionized Calcium YES 07/04/21 04:43 Phosphorus 2.9 mg/dL (2.5-4.6) 07/14/21 04:38 Magnesium 2.0 mg/dL (1.7-2.8) 07/14/21 04:38 Iron 11 ug/dL (28-170) L 07/04/21 04:43 TIBC 115 ug/dL (250-450) L 07/04/21 04:43 % Saturation 10 % (20-50) L 07/04/21 04:43 Transferrin 82 mg/dL (192-382) L 07/04/21 04:43 Total Bilirubin 0.6 mg/dL (0.2-1.0) 07/14/21 04:38 AST 23 IU/L (10-42) 07/14/21 04:38 ALT 24 IU/L (10-60) 07/14/21 04:38 Alkaline Phosphatase 106 IU/L (42-121) 07/14/21 04:38 Troponin I High Sens 99.6 ng/L (2.3-14.8) H* 06/27/21 08:08 C-Reactive Protein 7.1 mg/dL (0-1.0) H 07/04/21 04:43 B-Natriuretic Peptide 919 pg/mL (5-100) H 07/03/21 07:30 Total Protein 5.1 g/dL (6.7-8.2) L 07/14/21 04:38 Albumin 1.9 g/dL (3.2-5.5) L 07/14/21 04:38 Globulin 3.2 g/dL (2.1-4.2) 07/14/21 04:38 Albumin/Globulin Ratio 0.6 (1.0-2.2) L 07/14/21 04:38 Prealbumin 20 mg/dL (18-45) 07/14/21 04:38 Triglycerides 64 mg/dL (-149) 07/05/21 05:31 Lipase 42 U/L (22-51) 06/26/21 14:26 TSH 3.29 uIU/mL (0.34-5.60) 07/02/21 04:42 Free T4 0.97 ng/dL (0.58-1.64) 07/02/21 04:42 Cortisol AM Sample 6.1 ug/dL 07/05/21 05:31 Urine Color YELLOW 06/26/21 22:51 Urine Clarity CLEAR (CLEAR) 06/26/21 22:51 Urine pH 5.0 PH (5.0-7.5) 06/26/21 22:51 Ur Specific [place] 1.015 (1.002-1.030) 06/26/21 22:51 Urine Protein NEGATIVE mg/dL (NEGATIVE) 06/26/21 22:51 Urine Glucose (UA) NEGATIVE mg/dL (NEGATIVE) 06/26/21 22:51 Urine Ketones NEGATIVE mg/dL (NEGATIVE) 06/26/21 22:51 Urine Occult Blood NEGATIVE (NEGATIVE) 06/26/21 22:51 Urine Nitrite NEGATIVE (NEGATIVE) 06/26/21 22:51 Urine Bilirubin NEGATIVE (NEGATIVE) 06/26/21 22:51 Urine Urobilinogen 0.2 (NORMAL) E.U./dL (NORMAL) 06/26/21 22:51 Ur Leukocyte Esterase TRACE (NEGATIVE) H 06/26/21 22:51 Urine RBC 0-5 /HPF (0-5) 06/26/21 22:51 Urine WBC 4-5 /HPF (0-5) 06/26/21 22:51 Ur Squamous Epith Cells FEW Squamous (<= Few) 06/26/21 22:51 Urine Bacteria Few /HPF (None Seen) 06/26/21 22:51 Urine Casts 3-5 Hyaline Casts /LPF 06/26/21 22:51 Ur Microscopic Review INDICATED 06/26/21 22:51 Urine Culture Comments INDICATED 06/26/21 22:51 Nasal Adenovirus (PCR) NOT DETECTED 07/14/21 16:00 Nasal B. parapertussis DNA (PCR) NOT DETECTED 07/14/21 16:00 Nasal Coronavir 229E PCR NOT DETECTED 07/14/21 16:00 Nasal Coronavir HKU1 PCR NOT DETECTED 07/14/21 16:00 Nasal Coronavir NL63 PCR NOT DETECTED 07/14/21 16:00 Nasal Coronavir OC43 PCR NOT DETECTED 07/14/21 16:00 Nasal Enterovir/Rhinovir PCR NOT DETECTED 07/14/21 16:00 Nasal Influenza B PCR NOT DETECTED 07/14/21 16:00 Nasal Influenza A PCR NOT DETECTED 07/14/21 16:00 Nasal Parainfluen 1 PCR NOT DETECTED 07/14/21 16:00 Nasal Parainfluen 2 PCR NOT DETECTED 07/14/21 16:00 Nasal Parainfluen 3 PCR NOT DETECTED 07/14/21 16:00 Nasal Parainfluen 4 PCR NOT DETECTED 07/14/21 16:00 Nasal RSV (PCR) NOT DETECTED 07/14/21 16:00 Nasal Screen MRSA (PCR) NEGATIVE (NEGATIVE) 06/26/21 21:55 Nasal B.pertussis DNA PCR NOT DETECTED 07/14/21 16:00 Nasal C.pneumoniae (PCR) NOT DETECTED 07/14/21 16:00 Mk Human Metapneumo PCR NOT DETECTED 07/14/21 16:00 Nasal M.pneumoniae (PCR) NOT DETECTED 07/14/21 16:00 Nasal SARS-CoV-2 (PCR) NOT DETECTED 07/14/21 16:00 Last Dose Date Not Reportable 07/15/21 15:30 Last Dose Time Not Reportable 07/15/21 15:30 Vancomycin Trough 16.8 ug/mL (10.0-20.0) 07/15/21 15:30 - Procedures Procedures: Procedures RESPIRATORY VENTILATION, LESS THAN 24 CONSECUTIVE HOURS (01/11/20) Sepsis Event Note (H) - Evaluation Current Stage of Sepsis: Septic shock Possible source of Sepsis: positive: GI tract/intra-abdominal - Sepsis Criteria Sepsis Criteria: WBC count greater than 10% bands, SBP drop more than 40mHg, MAP less than 65 mmHg, SBP less than 90 mmHg, Renal: urine output less than 0.5ml/kg/hr for 2 hours or creatinine gr, Metabolic: lactate > 2 mmol/L ABX Reporting Has patient been on IV antibiotics over the past 48 hours?: No
[2021-07-16 07:49] LABS: CALCIUM 7.9 mg/dL (8.5-10.3); CREATININE 0.5 mg/dL (0.4-1.0); POTASSIUM 3.3 mmol/L (3.5-5.0)
[2021-07-16] MEDS: BISACODYL 10 MG SUPP PR SCH (09:09)
[2021-07-16] MEDS: LORazepam 2 MG/ML VIAL IVP PRN ×2 (09:57→21:02)
[2021-07-16] MEDS: ENOXAPARIN 40 MG/0.4 ML SYRINGE SUBQ SCH (10:53)
[2021-07-16] MEDS: CHLORHEXIDINE GLUCONATE 15 ML UDC PO SCH ×2 (10:54→21:04)
[2021-07-16] MEDS: HYDROmorphone 0.5 MG/0.5 ML SYRINGE IVP PRN (13:35)
[2021-07-16] MEDS: GLYCOPYRROLATE 1 MG/5 ML VIAL SUBQ PRN (13:36)
[2021-07-16] MEDS: SODIUM CHLORIDE FLUSH 0.9% 10 ML SYRINGE IVP PRN (13:38)
[2021-07-16] MEDS: POTASSIUM CHLOR 20 MEQ/100 ML 20 MEQ/100 ML BAG IV SCH ×2 (14:07→15:14)
[2021-07-16 14:20] LABS: CALCIUM, IONIZED 1.14 mmol/L (1.15-1.33); VBG PH 7.391 (7.31-7.41)
--- NOTE | 2021-07-16 14:50 | PROVIDER PROGRESS NOTE ---
Subjective - General Admit Date: 06/26/21 Procedure Date: 06/26/21 Post Op Days: 20 Procedure Performed: Exploratory laparotomy with repair of posterior duodenal ulcer - Review of Systems Wound/Incisions: positive: Healing well Drain Type: 19 Amharic Tanner Drain Output Description: Serosanguineous - Other Other Information/Narrative: Remains intubated and sedated with copious secretions. Prognosis is extremely poor.Currently had a small liquid stool. Objective - Patient Data Vital Signs: Vital Signs x48h Temp Pulse Pulse Resp BP Pulse Ox 07/16/21 13:00 36.8 C 87 18 97 07/16/21 12:00 36.8 C 83 15 123/45 L 100 07/16/21 11:55 84 07/16/21 11:21 36.9 C 84 18 60/42 L 99 07/16/21 09:07 82 18 91/45 L 100 07/16/21 08:46 95 108/85 H 07/16/21 08:18 95/40 L 07/16/21 07:46 81 07/16/21 07:40 36.7 C 67 14 88/57 L 100 Weight: Weight 07/14/21 07/15/21 07/16/21 23:59 23:59 23:59 Weight (kg) 87.2 kg 88.4 kg 88.5 kg Intake & Output: Intake and Output Totals x24h 07/14/21 07/15/21 07/16/21 23:59 23:59 23:59 Intake Total 3164.203 3154.481 703.037 Output Total 2445 2720 1264 Balance 719.203 434.481 -560.963 - Lab Results Lab Results: 07/16/21 04:47 07/16/21 04:47 Other Lab Results: Lab Results x24hrs 07/16/21 07/16/21 07/16/21 Range/Units 14:10 06:48 04:47 WBC (4.8-10.8) x10^3/uL RBC (4.20-5.40) 10^6/uL Hgb (12.0-16.0) g/dL Hct (37.0-47.0) % MCV (81.0-99.0) fL MCH (27.0-31.0) pg MCHC (32.0-36.0) g/dL RDW (12.0-15.0) % Plt Count (130-450) 10^3/uL MPV (7.9-10.8) fL Neut # (Auto) (1.5-6.6) 10^3/uL Lymph # (Auto) (1.5-3.5) 10^3/uL [place] # (Auto) (0.0-1.0) 10^3/uL Eos # (Auto) (0.0-0.7) 10^3/uL Baso # (Auto) (0.0-0.1) 10^3/uL Absolute Nucleated RBC x10^3/uL Nucleated RBC % /100WBC Manual Slide Review WBC Morphology (NORMAL) Platelet Estimate (NORMAL) Platelet Morphology (NORMAL) RBC Morph Micro Appear (NORMAL) VBG pH 7.391 (7.31-7.41) Ionized Calcium 1.14 L (1.15-1.33) mmol/L Sodium 136 (135-145) mmol/L Potassium 3.3 L (3.5-5.0) mmol/L Chloride 105 (101-111) mmol/L Carbon Dioxide 25 (21-32) mmol/L Anion Gap 6.0 (6-13) BUN 20 (6-20) mg/dL Creatinine 0.5 (0.4-1.0) mg/dL Estimated GFR (MDRD) 119 (>89) Glucose 142 H (70-100) mg/dL POC Whole Bld Glucose 137 H (70 - 100) mg/dL Calcium 7.9 L (8.5-10.3) mg/dL Last Dose Date Last Dose Time Vancomycin Trough (10.0-20.0) ug/mL 07/16/21 07/15/21 07/15/21 Range/Units 04:47 23:53 18:31 WBC 5.8 (4.8-10.8) x10^3/uL RBC 3.03 L (4.20-5.40) 10^6/uL Hgb 9.1 L (12.0-16.0) g/dL Hct 29.9 L (37.0-47.0) % MCV 98.7 (81.0-99.0) fL MCH 30.0 (27.0-31.0) pg MCHC 30.4 L (32.0-36.0) g/dL RDW 21.7 H (12.0-15.0) % Plt Count 191 (130-450) 10^3/uL MPV 11.8 H (7.9-10.8) fL Neut # (Auto) 3.0 (1.5-6.6) 10^3/uL Lymph # (Auto) 1.1 L (1.5-3.5) 10^3/uL [place] # (Auto) 0.7 (0.0-1.0) 10^3/uL Eos # (Auto) 0.9 H (0.0-0.7) 10^3/uL Baso # (Auto) 0.1 (0.0-0.1) 10^3/uL Absolute Nucleated RBC 0.00 x10^3/uL Nucleated RBC % 0.0 /100WBC Manual Slide Review Indicated WBC Morphology NORMAL APPEARANCE (NORMAL) Platelet Estimate NORMAL (130-450,000) (NORMAL) Platelet Morphology NORMAL APPEARANCE (NORMAL) RBC Morph Micro Appear 2+ ANISOCYTOSIS (NORMAL) VBG pH (7.31-7.41) Ionized Calcium (1.15-1.33) mmol/L Sodium (135-145) mmol/L Potassium (3.5-5.0) mmol/L Chloride (101-111) mmol/L Carbon Dioxide (21-32) mmol/L Anion Gap (6-13) BUN (6-20) mg/dL Creatinine (0.4-1.0) mg/dL Estimated GFR (MDRD) (>89) Glucose (70-100) mg/dL POC Whole Bld Glucose 136 H 139 H (70 - 100) mg/dL Calcium (8.5-10.3) mg/dL Last Dose Date Last Dose Time Vancomycin Trough (10.0-20.0) ug/mL 07/15/21 Range/Units 15:30 WBC (4.8-10.8) x10^3/uL RBC (4.20-5.40) 10^6/uL Hgb (12.0-16.0) g/dL Hct (37.0-47.0) % MCV (81.0-99.0) fL MCH (27.0-31.0) pg MCHC (32.0-36.0) g/dL RDW (12.0-15.0) % Plt Count (130-450) 10^3/uL MPV (7.9-10.8) fL Neut # (Auto) (1.5-6.6) 10^3/uL Lymph # (Auto) (1.5-3.5) 10^3/uL [place] # (Auto) (0.0-1.0) 10^3/uL Eos # (Auto) (0.0-0.7) 10^3/uL Baso # (Auto) (0.0-0.1) 10^3/uL Absolute Nucleated RBC x10^3/uL Nucleated RBC % /100WBC Manual Slide Review WBC Morphology (NORMAL) Platelet Estimate (NORMAL) Platelet Morphology (NORMAL) RBC Morph Micro Appear (NORMAL) VBG pH (7.31-7.41) Ionized Calcium (1.15-1.33) mmol/L Sodium (135-145) mmol/L Potassium (3.5-5.0) mmol/L Chloride (101-111) mmol/L Carbon Dioxide (21-32) mmol/L Anion Gap (6-13) BUN (6-20) mg/dL Creatinine (0.4-1.0) mg/dL Estimated GFR (MDRD) (>89) Glucose (70-100) mg/dL POC Whole Bld Glucose (70 - 100) mg/dL Calcium (8.5-10.3) mg/dL Last Dose Date Not Reportable Last Dose Time Not Reportable Vancomycin Trough 16.8 (10.0-20.0) ug/mL - Current Medications Current Medications: Current Medications Generic Name Dose Route Start Last Admin Trade Name Freq PRN Reason Stop Dose Admin Bisacodyl 10 mg 07/14/21 09:00 07/16/21 09:09 Bisacodyl 10 Mg Supp [place] 10 mg DAILY JULIETA Administration Chlorhexidine Gluconate 15 ml 06/27/21 21:00 07/16/21 10:54 Chlorhexidine Gluconate 15 Ml Udc PO 15 ml BID JULIETA Administration Enoxaparin Sodium 40 mg 06/28/21 09:00 07/16/21 10:53 Enoxaparin 40 Mg/0.4 Ml Syringe SUBQ 40 mg DAILY JULIETA Administration Glycopyrrolate 0.2 mg 06/28/21 21:17 07/16/21 13:36 Glycopyrrolate 1 Mg/5 Ml Vial SUBQ 0.2 mg Q6H PRN Administration Excessive Secretions Hydromorphone HCl 1 mg 07/14/21 21:41 07/16/21 13:35 Hydromorphone 0.5 Mg/0.5 Ml Syringe IVP 1 mg Q2H PRN Administration PAIN Sodium Chloride 500 mls @ 20 mls/hr 06/26/21 23:03 07/15/21 18:17 Normal Saline 0.9% IV 20 mls/hr Q24H PRN Administration TKO RATE Multivitamins 10 ml/ TRACE 2,011 mls @ 75 mls/hr 06/27/21 19:00 07/15/21 18:14 ELEMENTS 1 ml/ Amino Ac/ IV 75 mls/hr Electrol/Dextrose/Calcium Q24H JULIETA Administration Protocol Fat Emulsion-Soy/MCT/[place]/Fish Oil 50 gm in 250 mls @ 21 mls/hr 07/05/21 19:00 07/15/21 18:14 Smoflipid 20% Iv Fat Emulsion IV 21 mls/hr 1900 JULIETA Administration Norepinephrine Bitartrate 8 mg 250 mls @ 15 mls/hr 07/10/21 12:00 07/16/21 1 1:08 / Dextrose IV 16 mcg/min .[id number] JULIETA 30 mls/hr Administration Protocol 8 MCG/MIN Dexmedetomidine HCl 400 mcg/ 100 mls @ 4.325 mls/hr 07/10/21 11:20 07/16/21 13:57 Sodium Chloride IV 1.5 mcg/kg/hr .Q23H8M PRN 32.438 mls/hr Agitation Administration Protocol 0.2 MCG/KG/HR Potassium Chloride 20 meq in 100 mls @ 100 mls/hr 07/16/21 14:00 07/16/21 14:07 Potassium Chloride IV 07/16/21 15:59 100 mls/hr Q1H JULIETA Administration Protocol Levothyroxine Sodium 130 mcg 07/12/21 12:00 07/15/21 06:00 Levothyroxine 100 Mcg Vial IVP 130 mcg MoTh@0700 JULIETA Administration Lorazepam 0.5 mg 06/26/21 20:54 07/16/21 09:57 Lorazepam 2 Mg/Ml Vial IVP 0.5 mg Q1H PRN Administration Anxiety Metoclopramide HCl 5 mg 07/12/21 10:00 07/16/21 13:33 Metoclopramide 10 Mg/2 Ml Vial IVP 5 mg Q6HR JULIETA Administration Mineral Oil 1 applic 07/01/21 01:24 07/06/21 20:24 Min Oil/Dimethicon/Coconut Oil 92 Gm Tube TOP 1 ea PRN PRN Administration Skin Care Pantoprazole Sodium 40 mg 06/27/21 07:00 07/16/21 06:41 Pantoprazole 40 Mg Vial IVP 40 mg QDAC JULIETA Administration Phenol/Menthol 2 sprays 07/05/21 21:24 07/07/21 11:03 Phenol Throat [place] 177 Ml MM 2 sprays Q2HR PRN Administration Throat Pain Sodium Chloride 10 ml 06/27/21 01:00 07/16/21 14:05 Sodium Chloride Flush 0.9% 10 Ml Syringe IVP 10 ml 0100,0900,1700 JULIETA Administration Sodium Chloride 10 ml 06/26/21 20:54 07/16/21 13:38 Sodium Chloride Flush 0.9% 10 Ml Syringe IVP 30 ml PRN PRN Administration NEEDED PER PROVIDER ORDERS Sodium Chloride 20 ml 06/26/21 23:03 07/14/21 02:35 Sodium Chloride Flush 0.9% 10 Ml Syringe IVP 20 ml PRN PRN Administration After Blood Draw - Physical Exam Wound/Incisions: positive: Healing well Abdomen: positive: Nml bowel sounds, No distention ABX Reporting Has patient been on IV antibiotics over the past 48 hours?: Yes Impression/Plan - Problem List Problem List: Peritonitis has resolved and the GI tract is open. She has multiple other confounding problems. From a surgical perspective, could restart tube feeds at a trophic rate of 20 or 25. 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 This seems to be worse during her periods of hypotension.Alternatively, we can just continue full dose TPN.
[2021-07-16] MEDS: DEXMEDETOMIDINE 1,000 MCG in SODIUM CHLORIDE 0.9% 240 ML IV PRN (17:05)
[2021-07-16] MEDS: FAT EMUL/SOY/MCT/OLIV/FISH OIL 50 GM/250 ML BAG IV SCH (18:44)
[2021-07-16] MEDS: TPN (CLINIMIX E 5/15) 2,000 ML with MULTIVITAMIN 10 ML, TRACE ELEMENTS 1 ML IV SCH ×3 (18:51)
[2021-07-17] MEDS: METOCLOPRAMIDE 10 MG/2 ML VIAL IVP SCH ×2 (00:01→06:35)
[2021-07-17] MEDS: LORazepam 2 MG/ML VIAL IVP PRN (00:01)
[2021-07-17] MEDS: GLYCOPYRROLATE 1 MG/5 ML VIAL SUBQ PRN (00:54)
[2021-07-17] MEDS: DEXMEDETOMIDINE 1,000 MCG in SODIUM CHLORIDE 0.9% 240 ML IV PRN (00:54)
[2021-07-17] MEDS: PANTOPRAZOLE 40 MG VIAL IVP SCH (06:35)
[2021-07-17] MEDS: SODIUM CHLORIDE FLUSH 0.9% 10 ML SYRINGE IVP SCH ×3 (06:36→16:30)
--- NOTE | 2021-07-17 07:38 | PROVIDER PROGRESS NOTE ---
Assessment/Plan - Problem List (1) Septic shock Assessment/Plan: Resolved. 2/2 peritonitis which is resolved. Patient is currently not on any antibiotics. (2) Perforated duodenal ulcer Assessment/Plan: Postop day #22. Status post ex lap with repair of posterior duodenal ulcer General surgery following. Bowel movement more regular. Tube feed initiated at 25ml/hr 07/17/21 but discontinued later in the day due to vomiting when rolled for cleaning (3) On mechanically assisted ventilation Assessment/Plan: Patient extubated again 07/17/21. Maintaining/ Protecting airway well Weaned off precedex (4) Chronic diastolic heart failure Assessment/Plan: Echo December 2019 had ejection fraction of 65 to 70%. Mild tricuspid regurgitation. RVSP was 43 mmHg. Echo January 2020 had ejection fraction of 55 to 60%. Echocardiogram done June 27, 2021 has an ejection fraction of 40 to 45% and her systolic function is globally impaired. Right ventricular pacing evident. Was placed in September 2020? Mild to moderate right ventricular enlargement. Moderate to severe mitral regurgitation. Moderate LAE, severe ORI. (5) History of atrial fibrillation Assessment/Plan: Echo December 2019 had ejection fraction of 65 to 70%. Mild tricuspid regurgitation. RVSP was 43 mmHg. Echo January 2020 had ejection fraction of 55 to 60%. Echocardiogram done June 27, 2021 has an ejection fraction of 40 to 45% and her systolic function is globally impaired. Right ventricular pacing evident. Was placed in September 2020? Mild to moderate right ventricular en largement. Moderate to severe mitral regurgitation. Moderate LAE, severe ORI. Mildly tachycardic between 100 to 110. If heart rate greater than 120, will consider giving diltiazem (6) History of pulmonary embolism Assessment/Plan: DVT prophylaxis with Lovenox subcu 40mg (7) Hypothyroidism Assessment/Plan: On Synthroid 130 mcg IV Mondays and . (8) Schizophrenia Assessment/Plan: On Seroquel 100mg po bid (9) Anasarca Assessment/Plan: Tube feed initiated and later discontinued 07/17 due to vomiting Continues to be on Levophed due to low blood pressures. (10) Iron deficiency anemia Assessment/Plan: Hemoglobin stable at 10.6. (11) Hospital-acquired pneumonia Assessment/Plan: Patient completed antibiotic regiment of vancomycin, Levaquin and cefepime. This was discontinued on 07/15/2021 She also used to be on Flagyl and Diflucan which were discontinued. - Current Meds Current Meds: Current Medications Generic Name Dose Route Start Last Admin Trade Name Freq PRN Reason Stop Dose Admin Bisacodyl 10 mg 07/14/21 09:00 07/16/21 09:09 Bisacodyl 10 Mg Supp ND 10 mg DAILY JULIETA Administration Chlorhexidine Gluconate 15 ml 06/27/21 21:00 07/16/21 21:04 Chlorhexidine Gluconate 15 Ml Udc PO 15 ml BID JULIETA Administration Enoxaparin Sodium 40 mg 06/28/21 09:00 07/16/21 10:53 Enoxaparin 40 Mg/0.4 Ml Syringe SUBQ 40 mg DAILY JULIETA Administration Glycopyrrolate 0.2 mg 06/28/21 21:17 07/17/21 00:54 Glycopyrrolate 1 Mg/5 Ml Vial SUBQ 0.2 mg Q6H PRN Administration Excessive Secretions Hydromorphone HCl 1 mg 07/14/21 21:41 07/16/21 13:35 Hydromorphone 0.5 Mg/0.5 Ml Syringe IVP 1 mg Q2H PRN Administration PAIN Sodium Chloride 500 mls @ 20 mls/hr 06/26/21 23:03 07/16/21 16:14 Normal Saline 0.9% IV 20 mls/hr Q24H PRN Infusion TKO RATE Multivitamins 10 ml/ TRACE 2,011 mls @ 75 mls/hr 06/27/21 19:00 07/16/21 18:51 ELEMENTS 1 ml/ Amino Ac/ IV 75 mls/hr Electrol/Dextrose/Calcium Q24H JULIETA Administration Protocol Fat Emulsion-Soy/MCT/[place]cf[place]/Fish Oil 50 gm in 250 mls @ 21 mls/hr 07/05/21 19:00 07/17/21 07:32 Smoflipid 20% Iv Fat Emulsion IV Infused 1900 JULIETA Infusion Norepinephrine Bitartrate 8 mg 250 mls @ 15 mls/hr 07/10/21 12:00 07/17/21 05:37 / Dextrose IV 13 mcg/min .[id number] JULIETA 24.375 mls/hr Administration Protocol 8 MCG/MIN Dexmedetomidine HCl 1,000 mcg/ 250 mls @ 32.438 mls/hr 07/16/21 17:00 07/17/21 07:00 Sodium Chloride IV 0.9 mcg/kg/hr .Q7H43M PRN 19.463 mls/hr Agitation Titration Protocol 1.5 MCG/KG/HR Levothyroxine Sodium 130 mcg 07/12/21 12:00 07/15/21 06:00 Levothyroxine 100 Mcg Vial IVP 130 mcg MoTh@0700 JULIETA Administration Lorazepam 0.5 mg 06/26/21 20:54 07/17/21 00:01 Lorazepam 2 Mg/Ml Vial IVP 0.5 mg Q1H PRN Administration Anxiety Metoclopramide HCl 5 mg 07/12/21 10:00 07/17/21 06:35 Metoclopramide 10 Mg/2 Ml Vial IVP 5 mg Q6HR JULIETA Administration Mineral Oil 1 applic 07/01/21 01:24 07/06/21 20:24 Min Oil/Dimethicon/Coconut Oil 92 Gm Tube TOP 1 ea PRN PRN Administration Skin Care Pantoprazole Sodium 40 mg 06/27/21 07:00 07/17/21 06:35 Pantoprazole 40 Mg Vial IVP 40 mg QDAC JULIETA Administration Phenol/Menthol 2 sprays 07/05/21 21:24 07/07/21 11:03 Phenol Throat [place] 177 Ml MM 2 sprays Q2HR PRN Administration Throat Pain Sodium Chloride 10 ml 06/27/21 01:00 07/17/21 06:36 Sodium Chloride Flush 0.9% 10 Ml Syringe IVP 10 ml 0100,0900,1700 JULIETA Administration Sodium Chloride 10 ml 06/26/21 20:54 07/16/21 13:38 Sodium Chloride Flush 0.9% 10 Ml Syringe IVP 30 ml PRN PRN Administration NEEDED PER PROVIDER ORDERS Sodium Chloride 20 ml 06/26/21 23:03 07/14/21 02:35 Sodium Chloride Flush 0.9% 10 Ml Syringe IVP 20 ml PRN PRN Administration After Blood Draw - Lab Result Fish Bone Diagrams: 07/17/21 07:50 07/17/21 07:50 - Additional Planning My Orders: My Active Orders 07/17/21 05:00 BMP - BASIC METABOLIC PANEL [CHEM] DAILYLAB 07/18/21 05:00 BMP - BASIC METABOLIC PANEL [CHEM] DAILYLAB 07/19/21 05:00 BMP - BASIC METABOLIC PANEL [CHEM] DAILYLAB 07/20/21 05:00 BMP - BASIC METABOLIC PANEL [CHEM] DAILYLAB 07/21/21 05:00 BMP - BASIC METABOLIC PANEL [CHEM] DAILYLAB Subjective - Subjective Patient Reports: Other (Patient was weaned off sedation and extubated today. She has been maintaining/protecting her airway since extubation. She did not seem to be in any significant distress. 3 bowel movements were reported since yesterday.) Objective Vital Signs: Vital Signs - 24 hr 07/16/21 07/16/21 07/16/21 07:40 07:46 08:18 Temperature 36.7 C Heart Rate 81 Heart Rate [ 67 Monitoring electrodes] Respiratory 14 Rate Blood Pressure 88/57 L 95/40 L [Left Brachial artery] O2 Saturation 100 07/16/21 07/16/21 07/16/21 08:46 09:07 11:21 Temperature 36.9 C Heart Rate Heart Rate [ 95 82 84 Monitoring electrodes] Respiratory 18 18 Rate Blood Pressure 108/85 H 91/45 L 60/42 L [Left Brachial artery] O2 Saturation 100 99 07/16/21 07/16/21 07/16/21 11:55 12:00 13:00 Temperature 36.8 C 36.8 C Heart Rate 84 Heart Rate [ 83 87 Monitoring electrodes] Respiratory 15 18 Rate Blood Pressure 123/45 L [Left Brachial artery] O2 Saturation 100 97 07/16/21 07/16/21 07/16/21 14:00 15:00 15:48 Temperature 36.9 C 36.9 C Heart Rate Heart Rate [ 89 84 Monitoring electrodes] Respiratory 15 16 Rate Blood Pressure 128/50 L 132/52 H [Left Brachial artery] O2 Saturation 100 100 07/16/21 07/16/21 07/16/21 16:00 16:02 17:00 Temperature Heart Rate 84 Heart Rate [ 75 76 Monitoring electrodes] Respiratory 27 H 14 Rate Blood Pressure 128/74 134/60 H [Left Brachial artery] O2 Saturation 100 100 07/16/21 07/16/21 07/16/21 18:42 19:00 19:50 Temperature 36.5 C Heart Rate 70 Heart Rate [ 83 81 Monitoring electrodes] Respiratory 27 H 21 Rate Blood Pressure 91/44 L 119/76 [Left Brachial artery] O2 Saturation 100 100 07/16/21 07/16/21 07/16/21 20:00 21:00 21:45 Temperature 36.7 C Heart Rate 87 Heart Rate [ 70 87 Monitoring electrodes] Respiratory 21 18 Rate Blood Pressure 132/72 H 142/71 H [Left Brachial artery] O2 Saturation 99 99 07/16/21 07/16/21 07/16/21 22:00 23:00 23:30 Temperature Heart Rate 89 Heart Rate [ 88 83 Monitoring electrodes] Respiratory 19 20 Rate Blood Pressure 125/55 L 118/50 L [Left Brachial artery] O2 Saturation 99 100 07/17/21 07/17/21 07/17/21 00:00 01:00 01:40 Temperature 36.8 C Heart Rate 90 Heart Rate [ 92 88 Monitoring electrodes] Respiratory 17 18 Rate Blood Pressure 123/60 117/43 L [Left Brachial artery] O2 Saturation 99 99 07/17/21 07/17/21 07/17/21 02:00 03:00 03:20 Temperature Heart Rate 84 Heart Rate [ 88 86 Monitoring electrodes] Respiratory Rate Blood Pressure 132/65 H 132/77 H [Left Brachial artery] O2 Saturation 99 99 07/17/21 07/17/21 07/17/21 04:00 05:00 05:40 Temperature 36.7 C Heart Rate 85 Heart Rate [ 85 83 Monitoring electrodes] Respiratory 18 Rate Blood Pressure 120/54 L 108/44 L [Left Brachial artery] O2 Saturation 99 100 07/17/21 07/17/21 07/17/21 06:00 07:00 07:15 Temperature Heart Rate 95 Heart Rate [ 83 84 Monitoring electrodes] Respiratory 18 18 Rate Blood Pressure 108/43 L 109/47 L [Left Brachial artery] O2 Saturation 99 99 Oxygen O2 Source Mechanical ventilator I&O (Last 24 Hrs): Intake and Output Totals x24h 07/15/21 07/16/21 07/17/21 23:59 23:59 23:59 Intake Total 3154.481 3799.594 903.604 Output Total 2720 2129 470 Balance 603.954 7210.594 433.604 General: Alert, Mild distress HEENT: PERRLA, EOMI Neck: Supple, No JVD Neuro: Alert, Other (Awake, alert, not oriented to place, time or reason) Cardiovascular: Other (Mild tachycardia) Respiratory: Chest non-tender, No respiratory distress Abdomen: Normal bowel sounds, Soft, No tenderness Extremities: No clubbing, No cyanosis, No edema, Other (2+ edema) Skin: No rashes, No breakdown, No significant lesion - Results Results: Laboratory Results WBC 5.8 x10^3/uL (4.8-10.8) 07/16/21 04:47 RBC 3.03 10^6/uL (4.20-5.40) L 07/16/21 04:47 Hgb 9.1 g/dL (12.0-16.0) L 07/16/21 04:47 Hct 29.9 % (37.0-47.0) L 07/16/21 04:47 MCV 98.7 fL (81.0-99.0) 07/16/21 04:47 MCH 30.0 pg (27.0-31.0) 07/16/21 04:47 MCHC 30.4 g/dL (32.0-36.0) L 07/16/21 04:47 RDW 21.7 % (12.0-15.0) H 07/16/21 04:47 Plt Count 191 10^3/uL (130-450) 07/16/21 04:47 MPV 11.8 fL (7.9-10.8) H 07/16/21 04:47 Neut # (Auto) 3.0 10^3/uL (1.5-6.6) 07/16/21 04:47 Lymph # (Auto) 1.1 10^3/uL (1.5-3.5) L 07/16/21 04:47 [place] # (Auto) 0.7 10^3/uL (0.0-1.0) 07/16/21 04:47 Eos # (Auto) 0.9 10^3/uL (0.0-0.7) H 07/16/21 04:47 Baso # (Auto) 0.1 10^3/uL (0.0-0.1) 07/16/21 04:47 Absolute Nucleated RBC 0.00 x10^3/uL 07/16/21 04:47 Total Counted 100 07/11/21 05:00 Band Neuts % (Manual) 4 % (0-10) 07/11/21 05:00 Abnorm Lymph % (Manual) 0 % 07/11/21 05:00 Metamyelocytes % 1 % (-0) H 07/11/21 05:00 Myelocytes % 1 % (-0) H 07/11/21 05:00 Nucleated RBC % 0.0 /100WBC 07/16/21 04:47 Neutrophils # (Manual) 4.7 10^3/uL (1.5-6.6) 07/11/21 05:00 Lymphocytes # (Manual) 0.7 10^3/uL (1.5-3.5) L 07/11/21 05:00 Monocytes # (Manual) 0.4 10^3/uL (0.0-1.0) 07/11/21 05:00 Eosinophils # (Manual) 0.1 10^3/uL (0-0.7) 07/11/21 05:00 Basophils # (Manual) 0.0 10^3/uL (0-0.1) 07/11/21 05:00 Differential Comment MANUAL DIFFERENTIAL 07/11/21 05:00 Manual Slide Review Indicated 07/16/21 04:47 WBC Morphology NORMAL APPEARANCE (NORMAL) 07/16/21 04:47 Platelet Estimate NORMAL (130-450,000) (NORMAL) 07/16/21 04:47 Platelet Morphology NORMAL APPEARANCE (NORMAL) 07/16/21 04:47 RBC Morph Micro Appear 2+ ANISOCYTOSIS (NORMAL) 07/16/21 04:47 Bld Gas Analysis Time 0532 07/14/21 05:25 Sample Site LEFT RADIAL 07/14/21 05:25 ABG pH 7.52 (7.35-7.45) H 07/14/21 05:25 ABG pCO2 34 mmHg (34-45) 07/14/21 05:25 ABG pO2 129 mmHg (80-100) H 07/14/21 05:25 ABG HCO3 27.2 mmol/L (22.0-26.0) H 07/14/21 05:25 ABG Total CO2 28.2 MMOL/L (21.0-29.0) 07/14/21 05:25 ABG O2 Saturation 99 % (94-98) H 07/14/21 05:25 ABG Base Excess 4.4 mmol/L (-2.0-3.0) H 07/14/21 05:25 Ruperto Test POSITIVE 07/14/21 05:25 VBG pH 7.391 (7.31-7.41) 07/16/21 14:10 Ionized Calcium 1.14 mmol/L (1.15-1.33) L 07/16/21 14:10 Respiration Rate 12 b/min 07/14/21 05:25 O2 Delivery Device VENTILATOR 07/14/21 05:25 O2 Liters/Min 15.00 LPM 07/09/21 14:25 Vent Mode ASSIST/CONTROL 07/14/21 05:25 FiO2 35.00 07/14/21 05:25 Tidal Volume 450 mL 07/14/21 05:25 PEEP 5 cmH2O 07/14/21 05:25 Pressure Support Vent 12 cmH2O 07/05/21 11:00 IPAP Not Reportable 06/27/21 05:43 Sodium 136 mmol/L (135-145) 07/16/21 04:47 Potassium 4.0 mmol/L (3.5-5.0) 07/16/21 16:49 Chloride 105 mmol/L (101-111) 07/16/21 04:47 Carbon Dioxide 25 mmol/L (21-32) 07/16/21 04:47 Anion Gap 6.0 (6-13) 07/16/21 04:47 BUN 20 mg/dL (6-20) 07/16/21 04:47 Creatinine 0.5 mg/dL (0.4-1.0) 07/16/21 04:47 Estimated GFR (MDRD) 119 (>89) 07/16/21 04:47 Glucose 142 mg/dL (70-100) H 07/16/21 04:47 POC Whole Bld Glucose 172 mg/dL (70 - 100) H 07/17/21 06:27 Lactic Acid 1.7 mmol/L (0.5-2.2) 07/13/21 03:18 Calcium 7.9 mg/dL (8.5-10.3) L 07/16/21 04:47 Ionized Calcium YES 07/04/21 04:43 Phosphorus 2.9 mg/dL (2.5-4.6) 07/14/21 04:38 Magnesium 2.0 mg/dL (1.7-2.8) 07/14/21 04:38 Iron 11 ug/dL (28-170) L 07/04/21 04:43 TIBC 115 ug/dL (250-450) L 07/04/21 04:43 % Saturation 10 % (20-50) L 07/04/21 04:43 Transferrin 82 mg/dL (192-382) L 07/04/21 04:43 Total Bilirubin 0.6 mg/dL (0.2-1.0) 07/14/21 04:38 AST 23 IU/L (10-42) 07/14/21 04:38 ALT 24 IU/L (10-60) 07/14/21 04:38 Alkaline Phosphatase 106 IU/L (42-121) 07/14/21 04:38 Troponin I High Sens 99.6 ng/L (2.3-14.8) H* 06/27/21 08:08 C-Reactive Protein 7.1 mg/dL (0-1.0) H 07/04/21 04:43 B-Natriuretic Peptide 919 pg/mL (5-100) H 07/03/21 07:30 Total Protein 5.1 g/dL (6.7-8.2) L 07/14/21 04:38 Albumin 1.9 g/dL (3.2-5.5) L 07/14/21 04:38 Globulin 3.2 g/dL (2.1-4.2) 07/14/21 04:38 Albumin/Globulin Ratio 0.6 (1.0-2.2) L 07/14/21 04:38 Prealbumin 20 mg/dL (18-45) 07/14/21 04:38 Triglycerides 64 mg/dL (-149) 07/05/21 05:31 Lipase 42 U/L (22-51) 06/26/21 14:26 TSH 3.29 uIU/mL (0.34-5.60) 07/02/21 04:42 Free T4 0.97 ng/dL (0.58-1.64) 07/02/21 04:42 Cortisol AM Sample 6.1 ug/dL 07/05/21 05:31 Urine Color YELLOW 06/26/21 22:51 Urine Clarity CLEAR (CLEAR) 06/26/21 22:51 Urine pH 5.0 PH (5.0-7.5) 06/26/21 22:51 Ur Specific [place] 1.015 (1.002-1.030) 06/26/21 22:51 Urine Protein NEGATIVE mg/dL (NEGATIVE) 06/26/21 22:51 Urine Glucose (UA) NEGATIVE mg/dL (NEGATIVE) 06/26/21 22:51 Urine Ketones NEGATIVE mg/dL (NEGATIVE) 06/26/21 22:51 Urine Occult Blood NEGATIVE (NEGATIVE) 06/26/21 22:51 Urine Nitrite NEGATIVE (NEGATIVE) 06/26/21 22:51 Urine Bilirubin NEGATIVE (NEGATIVE) 06/26/21 22:51 Urine Urobilinogen 0.2 (NORMAL) E.U./dL (NORMAL) 06/26/21 22:51 Ur Leukocyte Esterase TRACE (NEGATIVE) H 06/26/21 22:51 Urine RBC 0-5 /HPF (0-5) 06/26/21 22:51 Urine WBC 4-5 /HPF (0-5) 06/26/21 22:51 Ur Squamous Epith Cells FEW Squamous (<= Few) 06/26/21 22:51 Urine Bacteria Few /HPF (None Seen) 06/26/21 22:51 Urine Casts 3-5 Hyaline Casts /LPF 06/26/21 22:51 Ur Microscopic Review INDICATED 06/26/21 22:51 Urine Culture Comments INDICATED 06/26/21 22:51 Nasal Adenovirus (PCR) NOT DETECTED 07/14/21 16:00 Nasal B. parapertussis DNA (PCR) NOT DETECTED 07/14/21 16:00 Nasal Coronavir 229E PCR NOT DETECTED 07/14/21 16:00 Nasal Coronavir HKU1 PCR NOT DETECTED 07/14/21 16:00 Nasal Coronavir NL63 PCR NOT DETECTED 07/14/21 16:00 Nasal Coronavir OC43 PCR NOT DETECTED 07/14/21 16:00 Nasal Enterovir/Rhinovir PCR NOT DETECTED 07/14/21 16:00 Nasal Influenza B PCR NOT DETECTED 07/14/21 16:00 Nasal Influenza A PCR NOT DETECTED 07/14/21 16:00 Nasal Parainfluen 1 PCR NOT DETECTED 07/14/21 16:00 Nasal Parainfluen 2 PCR NOT DETECTED 07/14/21 16:00 Nasal Parainfluen 3 PCR NOT DETECTED 07/14/21 16:00 Nasal Parainfluen 4 PCR NOT DETECTED 07/14/21 16:00 Nasal RSV (PCR) NOT DETECTED 07/14/21 16:00 Nasal Screen MRSA (PCR) NEGATIVE (NEGATIVE) 06/26/21 21:55 Nasal B.pertussis DNA PCR NOT DETECTED 07/14/21 16:00 Nasal C.pneumoniae (PCR) NOT DETECTED 07/14/21 16:00 Mk Human Metapneumo PCR NOT DETECTED 07/14/21 16:00 Nasal M.pneumoniae (PCR) NOT DETECTED 07/14/21 16:00 Nasal SARS-CoV-2 (PCR) NOT DETECTED 07/14/21 16:00 Last Dose Date Not Reportable 07/15/21 15:30 Last Dose Time Not Reportable 07/15/21 15:30 Vancomycin Trough 16.8 ug/mL (10.0-20.0) 07/15/21 15:30 - Procedures Procedures: Procedures RESPIRATORY VENTILATION, LESS THAN 24 CONSECUTIVE HOURS (01/11/20) Sepsis Event Note (H) - Evaluation Current Stage of Sepsis: Septic shock Possible source of Sepsis: positive: GI tract/intra-abdominal - Sepsis Criteria Sepsis Criteria: WBC count greater than 10% bands, SBP drop more than 40mHg, MAP less than 65 mmHg, SBP less than 90 mmHg, Renal: urine output less than 0.5ml/kg/hr for 2 hours or creatinine gr, Metabolic: lactate > 2 mmol/L ABX Reporting Has patient been on IV antibiotics over the past 48 hours?: No
[2021-07-17 07:59] LABS: BASOPHILS # (AUTO) 0.1 10^3/uL (0.0-0.1); BASOPHILS % (AUTO) 0.8 %; EOSINOPHILS # (AUTO) 0.2 10^3/uL (0.0-0.7); EOSINOPHILS % (AUTO) 2.9 %; HCT - HEMATOCRIT 34.2 % (37.0-47.0); HGB - HEMOGLOBIN 10.6 g/dL (12.0-16.0); LYMPHOCYTES # (AUTO) 0.6 10^3/uL (1.5-3.5); LYMPHOCYTES % (AUTO) 9.1 %; MEAN CORPUSCULAR HEMOGLOBIN 29.9 pg (27.0-31.0); MEAN CORPUSCULAR VOLUME 96.6 fL (81.0-99.0); MEAN PLATELET VOLUME 12.3 fL (7.9-10.8); MONOCYTES # (AUTO) 0.4 10^3/uL (0.0-1.0); NEUTROPHILS % (AUTO) 80.6 %; RED BLOOD COUNT 3.54 10^6/uL (4.20-5.40); RED CELL DISTRIBUTION WIDTH 21.4 % (12.0-15.0); WHITE BLOOD COUNT 6.2 x10^3/uL (4.8-10.8)
[2021-07-17 08:01] LABS: SLIDE REVIEW? Indicated
[2021-07-17 08:11] LABS: ALBUMIN 2.1 g/dL (3.2-5.5); ALBUMIN/GLOBULIN RATIO 0.6 (1.0-2.2); BILIRUBIN,TOTAL 0.6 mg/dL (0.2-1.0); CALCIUM 8.1 mg/dL (8.5-10.3); CREATININE 0.5 mg/dL (0.4-1.0); MAGNESIUM 1.9 mg/dL (1.7-2.8); PHOSPHORUS 2.6 mg/dL (2.5-4.6); POTASSIUM 4.2 mmol/L (3.5-5.0); TOTAL PROTEIN 5.4 g/dL (6.7-8.2)
[2021-07-17 08:16] LABS: PLATELET ESTIMATE, MANUAL NORMAL (130-450,000) (NORMAL); PLATELET MORPHOLOGY PLATELET CLUMPING (NORMAL); RBC MORPHOLOGY (MULTIPLE) 1+ ANISOCYTOSIS (NORMAL)
[2021-07-17] MEDS: BISACODYL 10 MG SUPP PR SCH (10:13)
[2021-07-17] MEDS: CHLORHEXIDINE GLUCONATE 15 ML UDC PO SCH ×2 (10:14→22:17)
[2021-07-17] MEDS: ENOXAPARIN 40 MG/0.4 ML SYRINGE SUBQ SCH (10:24)
[2021-07-17] MEDS ORDERED: QUEtiapine 100 MG TABLET PO SCH (12:00)
[2021-07-17] MEDS: ACETAMINOPHEN 325 MG TABLET PO PRN (12:15)
[2021-07-17] MEDS: SODIUM CHLORIDE FLUSH 0.9% 10 ML SYRINGE IVP PRN (15:58)
[2021-07-17] MEDS: FAT EMUL/SOY/MCT/OLIV/FISH OIL 50 GM/250 ML BAG IV SCH (18:21)
[2021-07-17] MEDS: TPN (CLINIMIX E 5/15) 2,000 ML with MULTIVITAMIN 10 ML, TRACE ELEMENTS 1 ML IV SCH ×3 (18:33)
[2021-07-17 18:47] LABS: ABG BASE EXCESS -3.1 mmol/L (-2.0-3.0); ABG HCO3 26.9 mmol/L (22.0-26.0); ABG OXYGEN SATURATION 88 % (94-98); ABG PO2 69 mmHg (80-100); ABG TCO2 29.3 MMOL/L (21.0-29.0); ALLEN TEST POSITIVE
[2021-07-17 18:50] LABS: ABG PCO2 79 mmHg (34-45); ABG PH 7.15 (7.35-7.45)
--- NOTE | 2021-07-17 19:03 | XRAY Report ---
PROCEDURE: Chest 1 View X-Ray INDICATIONS: crackles, TECHNIQUE: One view of the chest was acquired. COMPARISON: 07/10/2021. FINDINGS: Surgical changes and devices: Left chest wall cardiac pacer is stable. NG tube projects past GE junct ion with side port projecting over the proximal stomach and nonvisualization of the distal tip. Tip o f the PICC line projects over the distal SVC.. Lungs and pleura: Small bilateral pleural fluid collections. Bibasilar patchy consolidations right gr eater than left. Cephalization of pulmonary vascular bilateral perihilar opacities. Mediastinum: Mediastinal contours appear normal. Heart is enlarged. Bones and chest wall: No suspicious bony lesions. Overlying soft tissues appear unremarkable. IMPRESSION: 1. Small bilateral pleural fluid collections. 2. Bibasilar airspace opacities suspicious for aspiration versus pneumonia. 3. Cephalization of pulmonary vasculature and perihilar opacities compatible with pulmonary edema. Reviewed by: Leni Hernández MD, PhD on 07/17/2021 7:02 PM PDT Approved by: eLni Hernández MD, PhD on 07/17/2021 7:02 PM PDT Station ID: [id number]
[2021-07-17] MEDS ORDERED: ETOMIDATE 40 MG/20 ML VIAL IVP ONE (19:10)
[2021-07-17] MEDS ORDERED: ROCURONIUM 50 MG/5 ML VIAL ONE (19:11)
[2021-07-17] MEDS ORDERED: PROPOFOL 500 MG/50 ML 500 MG/50 ML VIAL ONE (19:21)
[2021-07-17] MEDS ORDERED: SODIUM CHLORIDE 0.9% 500 ML IV ONE (19:22)
[2021-07-17] MEDS: PROPOFOL 500 MG/50 ML 500 MG/50 ML VIAL IV SCH ×2 (19:22→22:17)
[2021-07-17] MEDS: SODIUM CHLORIDE 0.9% 500 ML IV PRN (19:22)
--- NOTE | 2021-07-17 20:10 | XRAY Report ---
PROCEDURE: Chest for Line Placement INDICATIONS: s/p intubatiion TECHNIQUE: One view of the chest was acquired. COMPARISON: 07/17/2021 at 1823 hours. FINDINGS: Surgical changes and devices: NG tube, PICC line and cardiac pacer stable. ET tube is in place which projects approximately 3.0 cm. The sosa.. Lungs and pleura: Bilateral pleural fluid collection stable compared to prior examination. Bibasilar lung consolidation right greater than left stable compared to prior examination. Bilateral hilar opac ities and cephalization of pulmonary vasculature stable. Mediastinum: Mediastinal contours appear normal. Heart size is normal. Bones and chest wall: No suspicious bony lesions. Overlying soft tissues appear unremarkable. IMPRESSION: ET tube projects 3.0 cm superior to the sosa. Reviewed by: Leni Hernández MD, PhD on 07/17/2021 8:09 PM PDT Approved by: Leni Hernández MD, PhD on 07/17/2021 8:09 PM PDT Station ID: [id number]
[2021-07-17 20:28] LABS: BASOPHILS % (AUTO) 0.2 %; HCT - HEMATOCRIT 30.5 % (37.0-47.0); HGB - HEMOGLOBIN 9.2 g/dL (12.0-16.0); LYMPHOCYTES # (AUTO) 0.2 10^3/uL (1.5-3.5); MEAN CORPUSCULAR HGB CONC 30.2 g/dL (32.0-36.0); MEAN CORPUSCULAR VOLUME 99.3 fL (81.0-99.0); MEAN PLATELET VOLUME 10.7 fL (7.9-10.8); MONOCYTES # (AUTO) 0.2 10^3/uL (0.0-1.0); MONOCYTES % (AUTO) 4.1 %; NEUTROPHILS # (AUTO) 5.2 10^3/uL (1.5-6.6); NEUTROPHILS % (AUTO) 91.6 %; PLT - PLATELET COUNT 191 10^3/uL (130-450); RED BLOOD COUNT 3.07 10^6/uL (4.20-5.40); RED CELL DISTRIBUTION WIDTH 21.1 % (12.0-15.0); WHITE BLOOD COUNT 5.7 x10^3/uL (4.8-10.8)
[2021-07-17 20:37] LABS: CREATININE 0.6 mg/dL (0.4-1.0); POTASSIUM 4.3 mmol/L (3.5-5.0)
[2021-07-17 22:02] LABS: ABG BASE EXCESS -2.1 mmol/L (-2.0-3.0); ABG HCO3 23.3 mmol/L (22.0-26.0); ABG OXYGEN SATURATION 99 % (94-98); ABG PCO2 42 mmHg (34-45); ABG PH 7.36 (7.35-7.45); ABG TCO2 24.5 MMOL/L (21.0-29.0); ALLEN TEST POSITIVE
[2021-07-17 22:03] LABS: ABG MODE OF VENTILATION AC/VC; ABG RESPIRATORY RATE 18 b/min
[2021-07-17 22:07] LABS: ABG PO2 155 mmHg (80-100)
[2021-07-17] MEDS: FUROSEMIDE 40 MG/4 ML VIAL IVP SCH (22:17)
[2021-07-17] MEDS: metroNIDAZOLE 500 MG/100 ML 500 MG/100 ML BAG IV SCH (22:17)
[2021-07-17] MEDS: HYDROmorphone 0.5 MG/0.5 ML SYRINGE IVP PRN (23:31)
[2021-07-18] MEDS: PROPOFOL 500 MG/50 ML 500 MG/50 ML VIAL IV SCH ×5 (01:00→12:26)
[2021-07-18] MEDS: SODIUM CHLORIDE FLUSH 0.9% 10 ML SYRINGE IVP SCH ×4 (04:40→21:54)
[2021-07-18] MEDS: metroNIDAZOLE 500 MG/100 ML 500 MG/100 ML BAG IV SCH ×3 (04:45→19:58)
[2021-07-18 04:52] LABS: ABG BASE EXCESS 0.4 mmol/L (-2.0-3.0); ABG HCO3 24.7 mmol/L (22.0-26.0); ABG OXYGEN SATURATION 89 % (94-98); ABG PCO2 38 mmHg (34-45); ABG PH 7.43 (7.35-7.45); ABG TCO2 25.9 MMOL/L (21.0-29.0); ALLEN TEST POSITIVE
[2021-07-18 04:53] LABS: ABG MODE OF VENTILATION ASSIST/CONTROL; ABG RESPIRATORY RATE 18 b/min
[2021-07-18 04:54] LABS: ABG PO2 55 mmHg (80-100)
[2021-07-18] MEDS ORDERED: DEXTROSE 5% 250 ML IV ONE (05:12)
[2021-07-18 06:26] LABS: BASOPHILS % (AUTO) 0.3 %; EOSINOPHILS % (AUTO) 0.3 %; HCT - HEMATOCRIT 32.9 % (37.0-47.0); HGB - HEMOGLOBIN 9.9 g/dL (12.0-16.0); LYMPHOCYTES # (AUTO) 0.4 10^3/uL (1.5-3.5); LYMPHOCYTES % (AUTO) 6.5 %; MEAN CORPUSCULAR HEMOGLOBIN 30.3 pg (27.0-31.0); MEAN CORPUSCULAR HGB CONC 30.1 g/dL (32.0-36.0); MEAN CORPUSCULAR VOLUME 100.6 fL (81.0-99.0); MEAN PLATELET VOLUME 11.9 fL (7.9-10.8); MONOCYTES # (AUTO) 0.3 10^3/uL (0.0-1.0); MONOCYTES % (AUTO) 5.1 %; NEUTROPHILS # (AUTO) 5.6 10^3/uL (1.5-6.6); NEUTROPHILS % (AUTO) 86.6 %; PLT - PLATELET COUNT 159 10^3/uL (130-450); RED BLOOD COUNT 3.27 10^6/uL (4.20-5.40); RED CELL DISTRIBUTION WIDTH 21.2 % (12.0-15.0); WHITE BLOOD COUNT 6.4 x10^3/uL (4.8-10.8)
[2021-07-18 06:32] LABS: SLIDE REVIEW? Indicated
[2021-07-18] MEDS: PANTOPRAZOLE 40 MG VIAL IVP SCH (06:34)
[2021-07-18] MEDS: LEVOTHYROXINE 100 MCG VIAL IVP SCH (06:34)
[2021-07-18] MEDS: FUROSEMIDE 40 MG/4 ML VIAL IVP SCH ×2 (06:36→14:46)
[2021-07-18 07:07] LABS: CALCIUM 7.9 mg/dL (8.5-10.3); CREATININE 0.5 mg/dL (0.4-1.0); POTASSIUM 3.3 mmol/L (3.5-5.0)
--- NOTE | 2021-07-18 07:23 | PROVIDER PROGRESS NOTE ---
Assessment/Plan - Problem List (1) On mechanically assisted ventilation Assessment/Plan: Patient was extubated around 9 AM on 07/17/2021. This was the 7 days since re-intubation. She seemed to be maintaining/protecting her airway through the course of the morning into the afternoon. In the course of being cleaned/changed mid-afternoon, she vomited a significant amount of tube feed, By 6 PM on 07/17/2021ppeared less responsive. She was also very diaphoretic and appeared to be in respiratory distress. While she had only required 2 L of oxygen via nasal cannula to keep her oxygen saturation in the high 90s during the day, her oxygen requirement increased significantly. An ABG was done which showed 1.15, PCO2 79, PO2 69. Chest x-ray Around 7 PM on 07/17/2021 showed bibasilar airspace opacities linden picious for aspiration versus pneumonia. Cephalization of pulmonary vasculature and perihilar opacities compatible with pulmonary edema The patient's caregiver Henny was at bedside and wished for re-intubation. Her sister Katie Massey (DPOA) has given approval for Henny's input into the patient's medical decision As a result the patient was re-intubated. Based on previous conversations and discussion around the time of this reintubation the indication would be for a trach and PEG. On 07/18/2021 I further discussed with Henny regarding the patient's quality of life with placement of a trach and PEG considering that she will be vent dependent indefinitely and also be at risk of aspirations. I mentioned consideration for palliative or hospice care. Henny and Katie Massey wish to proceed with a trach and PEG. I have reached out to [facility] in [place], [facility] in [place] and [facility] in [place] however these hospitals are currently at capacity. The placed her name on the list and will contact me once there is an availability. Yesterday after intubation the patient was sedated with propofol. This was changed to fentanyl and Precedex today 07/18/2021 to permit continuation of patient's TPN. ABG at 9 AM today showed pH 7.46, PCO2 37, PO2 101 and bicarb 25.4. The patient was on an FiO2 of 35%, assist control mode, tidal volume 420 PEEP 5. FiO2 was decreased to 30 and respiratory rate was decreased from 18 to 16 She is on norepinephrine. Patient was placed on Flagyl due to aspiration. She remains afebrile. White blood cell count is normal at 6.2 (2) Anasarca Assessment/Plan: Lasix 40 mg IV twice daily. Patient has a net 2500ml urine output today. (3) Chronic diastolic heart failure Assessment/Plan: Echo December 2019 had ejection fraction of 65 to 70%. Mild tricuspid regurgitation. RVSP was 43 mmHg. Echo January 2020 had ejection fraction of 55 to 60%. Echocardiogram done June 27, 2021 has an ejection fraction of 40 to 45% and her systolic function is globally impaired. Right ventricular pacing evident. Was placed in September 2020? Mild to moderate right ventricular enlargement. Moderate to severe mitral regurgitation. Moderate LAE, severe ORI. On Lasix 40mg IV bid (4) Septic shock Assessment/Plan: Resolved. 2/2 peritonitis which is resolved. (5) Perforated duodenal ulcer Assessment/Plan: Postop day #23. Status post ex lap with repair of posterior duodenal ulcer General surgery following. Bowel movement more regular. Tube feed discontinue later in the day on 07/17/21 due to aspiration. It had been initiated earlier on 07/17/21 at 25ml/hr (6) Hypothyroidism Assessment/Plan: On Synthroid 130 mcg IV Mondays and . (9) Schizophrenia Assessment/Plan: Seroquel decreased from 100mg po bid to 25mg po bid (10) Iron deficiency anemia Assessment/Plan: Hemoglobin stable at 9.9 - Current Meds Current Meds: Current Medications Generic Name Dose Route Start Last Admin Trade Name Freq PRN Reason Stop Dose Admin Acetaminophen 650 mg 07/17/21 11:05 07/17/21 12:15 Acetaminophen 325 Mg Tablet PO 650 mg Q6HR PRN Administration Pain or Fever > 38C (100.4F) Bisacodyl 10 mg 07/14/21 09:00 07/17/21 10:13 Bisacodyl 10 Mg Supp IL Not Given DAILY JULIETA Chlorhexidine Gluconate 15 ml 06/27/21 21:00 07/17/21 22:17 Chlorhexidine Gluconate 15 Ml Udc PO 15 ml BID JULIETA Administration Enoxaparin Sodium 40 mg 06/28/21 09:00 07/17/21 10:24 Enoxaparin 40 Mg/0.4 Ml Syringe SUBQ 40 mg DAILY JULIETA Administration Furosemide 40 mg 07/17/21 19:00 07/18/21 06:36 Furosemide 40 Mg/4 Ml Vial IVP 40 mg BIDDIURETIC JULIETA Administration Glycopyrrolate 0.2 mg 06/28/21 21:17 07/17/21 00:54 Glycopyrrolate 1 Mg/5 Ml Vial SUBQ 0.2 mg Q6H PRN Administration Excessive Secretions Hydromorphone HCl 1 mg 07/14/21 21:41 07/17/21 23:31 Hydromorphone 0.5 Mg/0.5 Ml Syringe IVP 1 mg Q2H PRN Administration PAIN Sodium Chloride 500 mls @ 20 mls/hr 06/26/21 23:03 07/17/21 19:22 Normal Saline 0.9% IV 20 mls/hr Q24H PRN Administration TKO RATE Multivitamins 10 ml/ TRACE 2,011 mls @ 75 mls/hr 06/27/21 19:00 07/17/21 18:33 ELEMENTS 1 ml/ Amino Ac/ IV 75 mls/hr Electrol/Dextrose/Calcium Q24H JULIETA Administration Protocol Fat Emulsion-Soy/MCT/[place]/Fish Oil 50 gm in 250 mls @ 21 mls/hr 07/05/21 19:00 07/17/21 18:21 Smoflipid 20% Iv Fat Emulsion IV 21 mls/hr 1900 JULIETA Administration Norepinephrine Bitartrate 8 mg 250 mls @ 15 mls/hr 07/10/21 12:00 07/18/21 05:14 / Dextrose IV 6.4 mcg/min .[id number] JULIETA 12 mls/hr Titration Protocol 8 MCG/MIN Propofol 500 mg in 50 mls @ 5.49 mls/hr 07/17/21 20:00 07/18/21 06:27 Diprivan IV 35 mcg/kg/min .Q9H7M JULIETA 19.215 mls/hr Administration Protocol 10 MCG/KG/MIN Metronidazole 500 mg in 100 mls @ 100 mls/hr 07/17/21 20:00 07/18/21 04:45 Flagyl 500 Mg/100 Ml IV 100 mls/hr Q8H JULIETA Administration Levothyroxine Sodium 130 mcg 07/12/21 12:00 07/18/21 06:34 Levothyroxine 100 Mcg Vial IVP 130 mcg MoTh@0700 JULIETA Administration Lorazepam 0.5 mg 06/26/21 20:54 07/17/21 00:01 Lorazepam 2 Mg/Ml Vial IVP 0.5 mg Q1H PRN Administration Anxiety Mineral Oil 1 applic 07/01/21 01:24 07/06/21 20:24 Min Oil/Dimethicon/Coconut Oil 92 Gm Tube TOP 1 ea PRN PRN Administration Skin Care Pantoprazole Sodium 40 mg 06/27/21 07:00 07/18/21 06:34 Pantoprazole 40 Mg Vial IVP 40 mg QDAC JULIETA Administration Phenol/Menthol 2 sprays 07/05/21 21:24 07/07/21 11:03 Phenol Throat [place] 177 Ml MM 2 sprays Q2HR PRN Administration Throat Pain Sodium Chloride 10 ml 06/27/21 01:00 07/18/21 04:40 Sodium Chloride Flush 0.9% 10 Ml Syringe IVP 10 ml 0100,0900,1700 JULIETA Administration Sodium Chloride 10 ml 06/26/21 20:54 07/17/21 15:58 Sodium Chloride Flush 0.9% 10 Ml Syringe IVP 10 ml PRN PRN Administration NEEDED PER PROVIDER ORDERS Sodium Chloride 20 ml 06/26/21 23:03 07/14/21 02:35 Sodium Chloride Flush 0.9% 10 Ml Syringe IVP 20 ml PRN PRN Administration After Blood Draw - Lab Result Fish Bone Diagrams: 07/18/21 06:20 07/18/21 06:51 - Additional Planning My Orders: My Active Orders 07/17/21 10:01 Miscellaenous Nursing Order [RC] ONCE 07/17/21 11:05 Acetaminophen [Tylenol] 650 mg PO Q6HR PRN 07/17/21 19:00 FUROSEMIDE INJ 40mg VIAL [LASIX INJ 40 mg VIAL] 40 mg IVP BIDDIURETIC 07/17/21 20:00 Propofol 500 mg/50 ml [Diprivan] 500 mg in 50 ml IV 10 mcg/kg/min metroNIDAZOLE 500 MG/100 ML [Flagyl 500 mg/100 ml] 500 mg in 100 ml IV Q8H 07/18/21 08:00 Potassium Chloride/Water 10 mEq/100 mL q1h (Enter # of bags) Potassium Chlor 10 Meq/100 ml [Potassium Chloride] 10 meq in 100 ml IV Q1H 07/19/21 05:00 BMP - BASIC METABOLIC PANEL [CHEM] DAILYLAB 07/20/21 05:00 BMP - BASIC METABOLIC PANEL [CHEM] DAILYLAB 07/21/21 05:00 BMP - BASIC METABOLIC PANEL [CHEM] DAILYLAB Subjective - Subjective Patient Reports: Other (Sedated and intubated thus unable to provide a history) Objective Vital Signs: Vital Signs - 24 hr 07/17/21 07/17/21 07/17/21 08:00 08:15 08:16 Temperature 38.0 C H Heart Rate 112 H Heart Rate [ 89 109 H 105 H Monitoring electrodes] Respiratory 20 Rate Blood Pressure 148/113 H 155/122 H 135/107 H [Left Brachial artery] O2 Saturation 99 07/17/21 07/17/21 07/17/21 08:38 08:49 09:00 Temperature 38.8 C H Heart Rate Heart Rate [ 108 H 100 105 H Monitoring electrodes] Respiratory 25 H Rate Blood Pressure 130/108 H 145/85 H 131/89 H [Left Brachial artery] O2 Saturation 100 07/17/21 07/17/21 07/17/21 09:27 09:51 09:52 Temperature 37.6 C 38.8 C H 37.0 C Heart Rate Heart Rate [ 100 95 Monitoring electrodes] Respiratory 22 27 H Rate Blood Pressure 152/55 H 138/56 H [Left Brachial artery] O2 Saturation 99 100 07/17/21 07/17/21 07/17/21 10:00 11:00 12:00 Temperature 37.5 C 37.2 C 38.1 C H Heart Rate Heart Rate [ 105 H 105 H 108 H Monitoring electrodes] Respiratory 24 20 19 Rate Blood Pressure 137/69 H 145/62 H 142/90 H [Left Brachial artery] O2 Saturation 95 94 96 07/17/21 07/17/21 07/17/21 13:00 14:00 15:00 Temperature 37.5 C 37.2 C Heart Rate Heart Rate [ 109 H 109 H 104 H Monitoring electrodes] Respiratory 20 25 H 29 H Rate Blood Pressure 131/58 H 121/47 L 138/45 H [Left Brachial artery] O2 Saturation 97 100 97 07/17/21 07/17/21 07/17/21 16:00 17:00 17:58 Temperature 37.5 C 37.3 C Heart Rate Heart Rate [ 102 H 99 Monitoring electrodes] Respiratory 25 H 26 H 25 H Rate Blood Pressure 127/49 L 118/48 L [Left Brachial artery] O2 Saturation 100 95 92 07/17/21 07/17/21 07/17/21 18:00 18:30 18:45 Temperature 37.0 C Heart Rate Heart Rate [ 86 Monitoring electrodes] Respiratory 26 H 28 H 28 H Rate Blood Pressure 124/54 L [Left Brachial artery] O2 Saturation 93 89 L 88 L 07/17/21 07/17/21 07/17/21 18:54 19:02 19:06 Temperature Heart Rate Heart Rate [ Monitoring electrodes] Respiratory 27 H 21 Rate Blood Pressure 78/37 L 79/37 L [Left Brachial artery] O2 Saturation 91 L 91 L 07/17/21 07/17/21 07/17/21 19:14 19:44 20:00 Temperature 36.7 C Heart Rate Heart Rate [ 75 106 H Monitoring electrodes] Respiratory 25 H 9 L Rate Blood Pressure 79/37 L 120/40 L 101/49 L [Left Brachial artery] O2 Saturation 93 96 07/17/21 07/17/21 07/17/21 21:00 22:00 22:34 Temperature Heart Rate 96 Heart Rate [ 99 92 Monitoring electrodes] Respiratory 20 16 Rate Blood Pressure 102/52 L 101/61 [Left Brachial artery] O2 Saturation 100 99 07/17/21 07/18/21 07/18/21 23:00 00:00 01:00 Temperature 36.7 C Heart Rate 93 Heart Rate [ 98 112 H 91 Monitoring electrodes] Respiratory 20 18 22 Rate Blood Pressure 105/53 L 83/65 L 104/51 L [Left Brachial artery] O2 Saturation 99 100 100 07/18/21 07/18/21 07/18/21 02:00 03:00 03:51 Temperature Heart Rate 104 H Heart Rate [ 101 H 99 Monitoring electrodes] Respiratory 19 19 Rate Blood Pressure 116/63 105/69 [Left Brachial artery] O2 Saturation 100 100 07/18/21 07/18/21 07/18/21 04:00 05:00 06:00 Temperature 36.8 C Heart Rate Heart Rate [ 98 108 H 99 Monitoring electrodes] Respiratory 18 20 23 Rate Blood Pressure 118/55 L 123/67 125/52 L [Left Brachial artery] O2 Saturation 100 100 100 07/18/21 07/18/21 07:00 07:17 Temperature Heart Rate 100 Heart Rate [ 98 Monitoring electrodes] Respiratory 24 Rate Blood Pressure 125/52 L [Left Brachial artery] O2 Saturation 100 Oxygen O2 Source Mechanical ventilator I&O (Last 24 Hrs): Intake and Output Totals x24h 07/16/21 07/17/21 07/18/21 23:59 23:59 23:59 Intake Total 3826.068 3241.247 279.226 Output Total 2129 1204 2035 Balance 6398.064 1050.247 -1755.774 General: Other (Sedated and intubated) HEENT: PERRLA, EOMI Neck: No JVD Neuro: Other (Sedated) Cardiovascular: Other (Mild tachycardia) Respiratory: Chest non-tender, Rhonchi (bilaterally) Abdomen: Normal bowel sounds, Soft Extremities: Other (3+ lower extremity edema) Skin: No rashes, No breakdown, No significant lesion - Results Results: Laboratory Results WBC 6.4 x10^3/uL (4.8-10.8) 07/18/21 06:20 RBC 3.27 10^6/uL (4.20-5.40) L 07/18/21 06:20 Hgb 9.9 g/dL (12.0-16.0) L 07/18/21 06:20 Hct 32.9 % (37.0-47.0) L 07/18/21 06:20 MCV 100.6 fL (81.0-99.0) H 07/18/21 06:20 MCH 30.3 pg (27.0-31.0) 07/18/21 06:20 MCHC 30.1 g/dL (32.0-36.0) L 07/18/21 06:20 RDW 21.2 % (12.0-15.0) H 07/18/21 06:20 Plt Count 159 10^3/uL (130-450) 07/18/21 06:20 MPV 11.9 fL (7.9-10.8) H 07/18/21 06:20 Neut # (Auto) 5.2 10^3/uL (1.5-6.6) 07/17/21 20:14 Lymph # (Auto) 0.2 10^3/uL (1.5-3.5) L 07/17/21 20:14 [place] # (Auto) 0.2 10^3/uL (0.0-1.0) 07/17/21 20:14 Eos # (Auto) 0.0 10^3/uL (0.0-0.7) 07/17/21 20:14 Baso # (Auto) 0.0 10^3/uL (0.0-0.1) 07/17/21 20:14 Absolute Nucleated RBC 0.00 x10^3/uL 07/17/21 20:14 Total Counted 100 07/11/21 05:00 Band Neuts % (Manual) 4 % (0-10) 07/11/21 05:00 Abnorm Lymph % (Manual) 0 % 07/11/21 05:00 Metamyelocytes % 1 % (-0) H 07/11/21 05:00 Myelocytes % 1 % (-0) H 07/11/21 05:00 Nucleated RBC % 0.0 /100WBC 07/17/21 20:14 Neutrophils # (Manual) 4.7 10^3/uL (1.5-6.6) 07/11/21 05:00 Lymphocytes # (Manual) 0.7 10^3/uL (1.5-3.5) L 07/11/21 05:00 Monocytes # (Manual) 0.4 10^3/uL (0.0-1.0) 07/11/21 05:00 Eosinophils # (Manual) 0.1 10^3/uL (0-0.7) 07/11/21 05:00 Basophils # (Manual) 0.0 10^3/uL (0-0.1) 07/11/21 05:00 Differential Comment MANUAL DIFFERENTIAL 07/11/21 05:00 Manual Slide Review Indicated 07/18/21 06:20 WBC Morphology NORMAL APPEARANCE (NORMAL) 07/16/21 04:47 Platelet Estimate NORMAL (130-450,000) (NORMAL) 07/17/21 07:50 Platelet Morphology PLATELET CLUMPING (NORMAL) 07/17/21 07:50 RBC Morph Micro Appear 1+ ANISOCYTOSIS (NORMAL) 07/17/21 07:50 Bld Gas Analysis Time 0448 07/18/21 04:40 Sample Site RIGHT RADIAL 07/18/21 04:40 ABG pH 7.43 (7.35-7.45) 07/18/21 04:40 ABG pCO2 38 mmHg (34-45) 07/18/21 04:40 ABG pO2 55 mmHg (80-100) L* 07/18/21 04:40 ABG HCO3 24.7 mmol/L (22.0-26.0) 07/18/21 04:40 ABG Total CO2 25.9 MMOL/L (21.0-29.0) 07/18/21 04:40 ABG O2 Saturation 89 % (94-98) L 07/18/21 04:40 ABG Base Excess 0.4 mmol/L (-2.0-3.0) 07/18/21 04:40 Ruperto Test POSITIVE 07/18/21 04:40 VBG pH 7.391 (7.31-7.41) 07/16/21 14:10 Ionized Calcium 1.14 mmol/L (1.15-1.33) L 07/16/21 14:10 Respiration Rate 18 b/min 07/18/21 04:40 O2 Delivery Device VENTILATOR 07/18/21 04:40 O2 Liters/Min 4.50 LPM 07/17/21 18:35 Vent Mode ASSIST/CONTROL 07/18/21 04:40 FiO2 24.00 07/18/21 04:40 Tidal Volume 420 mL 07/18/21 04:40 PEEP 5 cmH2O 07/18/21 04:40 Pressure Support Vent 12 cmH2O 07/05/21 11:00 IPAP Not Reportable 06/27/21 05:43 Sodium 136 mmol/L (135-145) 07/18/21 06:51 Potassium 3.3 mmol/L (3.5-5.0) L 07/18/21 06:51 Chloride 104 mmol/L (101-111) 07/18/21 06:51 Carbon Dioxide 24 mmol/L (21-32) 07/18/21 06:51 Anion Gap 8.0 (6-13) 07/18/21 06:51 BUN 24 mg/dL (6-20) H 07/18/21 06:51 Creatinine 0.5 mg/dL (0.4-1.0) 07/18/21 06:51 Estimated GFR (MDRD) 119 (>89) 07/18/21 06:51 Glucose 138 mg/dL (70-100) H 07/18/21 06:51 POC Whole Bld Glucose 123 mg/dL (70 - 100) H 07/18/21 06:21 Lactic Acid 1.0 mmol/L (0.5-2.2) 07/17/21 20:14 Calcium 7.9 mg/dL (8.5-10.3) L 07/18/21 06:51 Ionized Calcium YES 07/04/21 04:43 Phosphorus 2.6 mg/dL (2.5-4.6) 07/17/21 07:50 Magnesium 1.9 mg/dL (1.7-2.8) 07/17/21 07:50 Iron 11 ug/dL (28-170) L 07/04/21 04:43 TIBC 115 ug/dL (250-450) L 07/04/21 04:43 % Saturation 10 % (20-50) L 07/04/21 04:43 Transferrin 82 mg/dL (192-382) L 07/04/21 04:43 Total Bilirubin 0.6 mg/dL (0.2-1.0) 07/17/21 07:50 AST 18 IU/L (10-42) 07/17/21 07:50 ALT 15 IU/L (10-60) 07/17/21 07:50 Alkaline Phosphatase 97 IU/L (42-121) 07/17/21 07:50 Troponin I High Sens 141.9 ng/L (2.3-14.8) H* 07/17/21 20:14 C-Reactive Protein 7.1 mg/dL (0-1.0) H 07/04/21 04:43 B-Natriuretic Peptide 919 pg/mL (5-100) H 07/03/21 07:30 Total Protein 5.4 g/dL (6.7-8.2) L 07/17/21 07:50 Albumin 2.1 g/dL (3.2-5.5) L 07/17/21 07:50 Globulin 3.3 g/dL (2.1-4.2) 07/17/21 07:50 Albumin/Globulin Ratio 0.6 (1.0-2.2) L 07/17/21 07:50 Prealbumin 13 mg/dL (18-45) L 07/17/21 07:50 Triglycerides 64 mg/dL (-149) 07/05/21 05:31 Lipase 42 U/L (22-51) 06/26/21 14:26 TSH 3.29 uIU/mL (0.34-5.60) 07/02/21 04:42 Free T4 0.97 ng/dL (0.58-1.64) 07/02/21 04:42 Cortisol AM Sample 6.1 ug/dL 07/05/21 05:31 Urine Color YELLOW 06/26/21 22:51 Urine Clarity CLEAR (CLEAR) 06/26/21 22:51 Urine pH 5.0 PH (5.0-7.5) 06/26/21 22:51 Ur Specific [place] 1.015 (1.002-1.030) 06/26/21 22:51 Urine Protein NEGATIVE mg/dL (NEGATIVE) 06/26/21 22:51 Urine Glucose (UA) NEGATIVE mg/dL (NEGATIVE) 06/26/21 22:51 Urine Ketones NEGATIVE mg/dL (NEGATIVE) 06/26/21 22:51 Urine Occult Blood NEGATIVE (NEGATIVE) 06/26/21 22:51 Urine Nitrite NEGATIVE (NEGATIVE) 06/26/21 22:51 Urine Bilirubin NEGATIVE (NEGATIVE) 06/26/21 22:51 Urine Urobilinogen 0.2 (NORMAL) E.U./dL (NORMAL) 06/26/21 22:51 Ur Leukocyte Esterase TRACE (NEGATIVE) H 06/26/21 22:51 Urine RBC 0-5 /HPF (0-5) 06/26/21 22:51 Urine WBC 4-5 /HPF (0-5) 06/26/21 22:51 Ur Squamous Epith Cells FEW Squamous (<= Few) 06/26/21 22:51 Urine Bacteria Few /HPF (None Seen) 06/26/21 22:51 Urine Casts 3-5 Hyaline Casts /LPF 06/26/21 22:51 Ur Microscopic Review INDICATED 06/26/21 22:51 Urine Culture Comments INDICATED 06/26/21 22:51 Nasal Adenovirus (PCR) NOT DETECTED 07/14/21 16:00 Nasal B. parapertussis DNA (PCR) NOT DETECTED 07/14/21 16:00 Nasal Coronavir 229E PCR NOT DETECTED 07/14/21 16:00 Nasal Coronavir HKU1 PCR NOT DETECTED 07/14/21 16:00 Nasal Coronavir NL63 PCR NOT DETECTED 07/14/21 16:00 Nasal Coronavir OC43 PCR NOT DETECTED 07/14/21 16:00 Nasal Enterovir/Rhinovir PCR NOT DETECTED 07/14/21 16:00 Nasal Influenza B PCR NOT DETECTED 07/14/21 16:00 Nasal Influenza A PCR NOT DETECTED 07/14/21 16:00 Nasal Parainfluen 1 PCR NOT DETECTED 07/14/21 16:00 Nasal Parainfluen 2 PCR NOT DETECTED 07/14/21 16:00 Nasal Parainfluen 3 PCR NOT DETECTED 07/14/21 16:00 Nasal Parainfluen 4 PCR NOT DETECTED 07/14/21 16:00 Nasal RSV (PCR) NOT DETECTED 07/14/21 16:00 Nasal Screen MRSA (PCR) NEGATIVE (NEGATIVE) 06/26/21 21:55 Nasal B.pertussis DNA PCR NOT DETECTED 07/14/21 16:00 Nasal C.pneumoniae (PCR) NOT DETECTED 07/14/21 16:00 Mk Human Metapneumo PCR NOT DETECTED 07/14/21 16:00 Nasal M.pneumoniae (PCR) NOT DETECTED 07/14/21 16:00 Nasal SARS-CoV-2 (PCR) NOT DETECTED 07/14/21 16:00 Last Dose Date Not Reportable 07/15/21 15:30 Last Dose Time Not Reportable 07/15/21 15:30 Vancomycin Trough 16.8 ug/mL (10.0-20.0) 07/15/21 15:30 - Procedures Procedures: Procedures RESPIRATORY VENTILATION, LESS THAN 24 CONSECUTIVE HOURS (01/11/20) Sepsis Event Note (H) - Evaluation Current Stage of Sepsis: Septic shock Possible source of Sepsis: positive: GI tract/intra-abdominal - Sepsis Criteria Sepsis Criteria: WBC count greater than 10% bands, SBP drop more than 40mHg, MAP less than 65 mmHg, SBP less than 90 mmHg, Renal: urine output less than 0.5ml/kg/hr for 2 hours or creatinine gr, Metabolic: lactate > 2 mmol/L ABX Reporting Has patient been on IV antibiotics over the past 48 hours?: Yes
[2021-07-18 07:53] LABS: PLATELET ESTIMATE, MANUAL NORMAL (130-450,000) (NORMAL); PLATELET MORPHOLOGY NORMAL APPEARANCE (NORMAL)
[2021-07-18 08:25] LABS: CALCIUM, IONIZED 1.09 mmol/L (1.15-1.33); VBG PH 7.388 (7.31-7.41)
[2021-07-18 08:37] LABS: MAGNESIUM 1.9 mg/dL (1.7-2.8); PHOSPHORUS 2.7 mg/dL (2.5-4.6)
[2021-07-18] MEDS: POTASSIUM CHLOR 10 MEQ/100 ML 10 MEQ/100 ML BAG IV SCH ×4 (09:10→12:11)
[2021-07-18] MEDS: ENOXAPARIN 40 MG/0.4 ML SYRINGE SUBQ SCH (09:13)
[2021-07-18] MEDS: CHLORHEXIDINE GLUCONATE 15 ML UDC PO SCH ×2 (09:13→20:27)
[2021-07-18 09:20] LABS: ABG BASE EXCESS 1.6 mmol/L (-2.0-3.0); ABG HCO3 25.4 mmol/L (22.0-26.0); ABG PCO2 37 mmHg (34-45); ABG PH 7.46 (7.35-7.45); ABG PO2 101 mmHg (80-100); ABG TCO2 26.5 MMOL/L (21.0-29.0)
[2021-07-18 09:21] LABS: ABG OXYGEN SATURATION 98 % (94-98)
[2021-07-18 09:22] LABS: ABG MODE OF VENTILATION ASSIST/CONTROL; ABG RESPIRATORY RATE 18 b/min
[2021-07-18] MEDS: BISACODYL 10 MG SUPP PR SCH (10:45)
[2021-07-18] MEDS ORDERED: DEXMEDETOMIDINE 400 MCG/100 ML 100 ML IV SCH (11:00)
[2021-07-18] MEDS ORDERED: fentaNYL 2,500 MCG in SODIUM CHLORIDE 0.9% 200 ML IV SCH (11:15)
[2021-07-18] MEDS: SODIUM CHLORIDE FLUSH 0.9% 10 ML SYRINGE IVP PRN ×2 (14:46→14:49)
[2021-07-18] MEDS: fentaNYL 2,500 MCG/250 ML 2,500 MCG/250 ML BAG IV SCH (15:10)
[2021-07-18] MEDS: LORazepam 2 MG/ML VIAL IVP PRN (16:47)
[2021-07-18] MEDS: TPN (CLINIMIX E 5/15) 2,000 ML with MULTIVITAMIN 10 ML, TRACE ELEMENTS 1 ML IV SCH ×3 (19:32)
[2021-07-18] MEDS: QUEtiapine 25 MG TABLET PO SCH (20:27)
[2021-07-18] MEDS: SODIUM CHLORIDE 0.9% 500 ML IV PRN (20:29)
[2021-07-18] MEDS: GLYCOPYRROLATE 1 MG/5 ML VIAL SUBQ PRN (20:40)
[2021-07-18] MEDS ORDERED: DIGOXIN 500 MCG/2 ML AMP IVP STA ×2 (21:30→21:46)
[2021-07-19] MEDS: fentaNYL 2,500 MCG/250 ML 2,500 MCG/250 ML BAG IV SCH ×3 (00:28→16:45)
[2021-07-19] MEDS ORDERED: DIGOXIN 500 MCG/2 ML AMP IVP ONE ×2 (01:00)
[2021-07-19] MEDS: SODIUM CHLORIDE FLUSH 0.9% 10 ML SYRINGE IVP PRN ×6 (02:35→18:59)
[2021-07-19] MEDS: metroNIDAZOLE 500 MG/100 ML 500 MG/100 ML BAG IV SCH ×3 (04:21→20:09)
[2021-07-19] MEDS: PANTOPRAZOLE 40 MG VIAL IVP SCH (06:07)
[2021-07-19] MEDS: FUROSEMIDE 40 MG/4 ML VIAL IVP SCH ×2 (06:07→14:34)
[2021-07-19 06:29] LABS: DIGOXIN 1.4 ng/mL
[2021-07-19 06:30] LABS: ALBUMIN 1.7 g/dL (3.2-5.5); BILIRUBIN,DIRECT 0.2 mg/dL (0.1-0.5); BILIRUBIN,TOTAL 0.2 mg/dL (0.2-1.0); CALCIUM 7.3 mg/dL (8.5-10.3); CHOL/HDL RATIO 4.1 (<4.4); CHOLESTEROL 78 mg/dL; CREATININE 0.6 mg/dL (0.4-1.0); HDL CHOLESTEROL 19 mg/dL; LDL CHOLESTEROL,CALCULATED 45 mg/dL; LDL/HDL RATIO 2.4 (<4.4); POTASSIUM 3.7 mmol/L (3.5-5.0); TOTAL PROTEIN 4.6 g/dL (6.7-8.2); TRIGLYCERIDES 69 mg/dL; VLDL CHOLESTEROL 14 mg/dL
[2021-07-19 07:04] LABS: MAGNESIUM 1.9 mg/dL (1.7-2.8); PHOSPHORUS 2.6 mg/dL (2.5-4.6)
[2021-07-19 08:27] LABS: BASOPHILS % (AUTO) 0.3 %; HCT - HEMATOCRIT 26.7 % (37.0-47.0); LYMPHOCYTES % (AUTO) 12.7 %; MEAN CORPUSCULAR HEMOGLOBIN 29.4 pg (27.0-31.0); MEAN CORPUSCULAR VOLUME 98.2 fL (81.0-99.0); MEAN PLATELET VOLUME 11.8 fL (7.9-10.8); MONOCYTES % (AUTO) 4.8 %; NEUTROPHILS % (AUTO) 81.2 %; PLT - PLATELET COUNT 172 10^3/uL (130-450); RED BLOOD COUNT 2.72 10^6/uL (4.20-5.40); RED CELL DISTRIBUTION WIDTH 21.3 % (12.0-15.0); WHITE BLOOD COUNT 3.9 x10^3/uL (4.8-10.8)
--- NOTE | 2021-07-19 08:34 | XRAY Report ---
PROCEDURE: Chest 1 View X-Ray INDICATIONS: Intubated, TECHNIQUE: One view of the chest was acquired. COMPARISON: July 17, 2021 FINDINGS: SUPPORT DEVICES: Redemonstrated left cardiac device, endotracheal tube, right PICC line, and enteric tube. LUNG/PLEURA: Persistent mid/lower lung airspace opacities with slight improved aeration of the upper lung zones. Blunting of the costophrenic sulci, which may reflect pleural fluid. MEDIASTINUM: The cardiac silhouette is upper limits of normal, partially exaggerated by technique. BONES/SOFT TISSUES: No acute abnormality. IMPRESSION: 1.No significant interval change. Reviewed by: Bonifacio Worley MD on 07/19/2021 8:32 AM PDT Approved by: Bonifacio Worley MD on 07/19/2021 8:32 AM PDT Station ID: [id number]
[2021-07-19 08:44] LABS: ABNORMAL LYMPHS % (MANUAL) 0 %
[2021-07-19] MEDS: ACETAMINOPHEN 325 MG TABLET PO PRN ×2 (09:01→17:24)
[2021-07-19] MEDS: BISACODYL 10 MG SUPP PR SCH (09:03)
[2021-07-19] MEDS: QUEtiapine 25 MG TABLET PO SCH (09:04)
[2021-07-19] MEDS: CHLORHEXIDINE GLUCONATE 15 ML UDC PO SCH ×2 (09:04→20:10)
[2021-07-19] MEDS: ENOXAPARIN 40 MG/0.4 ML SYRINGE SUBQ SCH (09:04)
[2021-07-19 09:05] LABS: ABG HCO3 27.2 mmol/L (22.0-26.0); ABG PCO2 39 mmHg (34-45); ABG PH 7.46 (7.35-7.45)
[2021-07-19 09:06] LABS: ABG BASE EXCESS 3.2 mmol/L (-2.0-3.0); ABG MODE OF VENTILATION ACVC; ABG OXYGEN SATURATION 99 % (94-98); ABG RESPIRATORY RATE 12 b/min; ABG TCO2 28.4 MMOL/L (21.0-29.0); ALLEN TEST POSITIVE
[2021-07-19 09:12] LABS: BAND NEUTROPHILS % (MANUAL) 4 %; BASOPHILS % (MANUAL) 1 %; LYMPHOCYTES # (MANUAL) 0.2 10^3/uL (1.5-3.5); LYMPHOCYTES % (MANUAL) 6 %; METAMYELOCYTES % (MANUAL) 1 %; MONOCYTES # (MANUAL) 0.2 10^3/uL (0.0-1.0); NEUTROPHILS # (MANUAL) 3.4 10^3/uL (1.5-6.6)
[2021-07-19 09:13] LABS: DIFFERENTIAL COMMENT MANUAL DIFFERENTIAL; PLATELET ESTIMATE, MANUAL NORMAL (130-450,000) (NORMAL); PLATELET MORPHOLOGY NORMAL APPEARANCE (NORMAL)
[2021-07-19 09:14] LABS: ABG PO2 211 mmHg (80-100)
[2021-07-19] MEDS ORDERED: POTASSIUM CHLOR 20 MEQ/100 ML 20 MEQ/100 ML BAG IV ONE ×2 (10:16→20:00)
[2021-07-19 10:22] LABS: CALCIUM, IONIZED 1.08 mmol/L (1.15-1.33); VBG PH 7.4 (7.31-7.41)
[2021-07-19] MEDS: levoFLOXacin 750 MG/150 ML 750 MG/150 ML BAG IV SCH (10:34)
[2021-07-19] MEDS: DEXMEDETOMIDINE 400 MCG in SODIUM CHLORIDE 0.9% 100ML 96 ML IV SCH ×3 (12:34→12:47)
[2021-07-19] MEDS: SODIUM CHLORIDE FLUSH 0.9% 10 ML SYRINGE IVP SCH ×3 (12:40→23:20)
[2021-07-19] MEDS: CALCIUM CARBONATE CHEW 500 MG TABLET PO SCH ×3 (13:08→23:19)
--- NOTE | 2021-07-19 14:23 | PROVIDER PROGRESS NOTE ---
Assessment/Plan - Problem List (1) Acute respiratory failure requiring reintubation Assessment/Plan: 07/19/21 This is day #2 of the third intubation. Overall patient has been intubated for over 21 days. Continue sedation with fentanyl. ABG done today showed pH 7.46 PCO2 39 PO2 211 aBicarbonate 27. This was on an FiO2 of 30, AC VC mode, tidal volume 450, Respiratory rate 12,PEEP 5, We will continue to attempt to transfer patient to another facility for higher level of care. 07/18/21 Patient was extubated around 9 AM on 07/17/2021. This was the 7 days since re-intubation. She seemed to be maintaining/protecting her airway through the course of the morning into the afternoon. In the course of being cleaned/changed mid-afternoon, she vomited a significant amount of tube feed, By 6 PM on 07/17/2021ppeared less responsive. She was also very diaphoretic and appeared to be in respiratory distress. While she had only required 2 L of oxygen via nasal cannula to keep her oxygen saturation in the high 90s during the day, her oxygen requirement increased significantly. An ABG was done which showed 1.15, PCO2 79, PO2 69. Chest x-ray Around 7 PM on 07/17/2021 showed bibasilar airspace opacities muhammad spicious for aspiration versus pneumonia. Cephalization of pulmonary vasculature and perihilar opacities compatible with pulmonary edema The patient's caregiver Henny was at bedside and wished for re-intubation. Her sister Katie Massey (DPOA) has given approval for Henny's input into the patient's medical decision As a result the patient was re-intubated. Based on previous conversations and discussion around the time of this reintubation the indication would be for a trach and PEG. On 07/18/2021 I further discussed with Henny regarding the patient's quality of life with placement of a trach and PEG considering that she will be vent dependent indefinitely and also be at risk of aspirations. I mentioned consideration for palliative or hospice care. Henny and Katie Massey wish to proceed with a trach and PEG. I have reached out to [facility] in [place], [facility] in [place] and [facility] in [place] however these hospitals are currently at capacity. The placed her name on the list and will contact me once there is an availability. Yesterday after intubation the patient was sedated with propofol. This was changed to fentanyl and Precedex today 07/18/2021 to permit continuation of patient's TPN. ABG at 9 AM today showed pH 7.46, PCO2 37, PO2 101 and bicarb 25.4. The patient was on an FiO2 of 35%, assist control mode, tidal volume 420 PEEP 5. FiO2 was decreased to 30 and respiratory rate was decreased from 18 to 16 She is on norepinephrine. Patient was placed on Flagyl due to aspiration. She remains afebrile. White blood cell count is normal at 6.2 (2) On mechanically assisted ventilation Assessment/Plan: This is day #2 of the third intubation. Overall patient has been intubated for over 21 days. Continue sedation with fentanyl. ABG done today showed pH 7.46 PCO2 39 PO2 211 aBicarbonate 27. This was on an FiO2 of 30, AC VC mode, tidal volume 450, Respiratory rate 12,PEEP 5, We will continue to attempt to transfer patient to another facility for higher level of care. (3) Aspiration pneumonia Assessment/Plan: CXR done today showed no interval change. Patient had a temperature of 38.8 C. Her white blood cell count dropped to 3.9. Around 9 AM on 07/19/2021 her systolic blood pressure dropped to the 80s. Levaquin 750 mg IV daily was added to Flagyl 500 mg IV 3 times daily after blood cultures were drawn. Patient is on levophed drip (4) Septic shock Assessment/Plan: Secondary to aspiration pneumonia. Patient is currently on Levaquin and Flagyl IV. Patient is on norepinephrine drip. Blood cultures are pending. (5) Ileus following gastrointestinal surgery Assessment/Plan: NG tube draining bilious looking secretions. Will resume Reglan 5 mg IV every 6 hours as needed. Discontinue Seroquel to minimize risk of serotonin syndrome (6) Anasarca Assessment/Plan: Continue Lasix 40 mg IV twice daily. (7) Chronic diastolic heart failure Assessment/Plan: Echo December 2019 had ejection fraction of 65 to 70%. Mild tricuspid regurgitation. RVSP was 43 mmHg. Echo January 2020 had ejection fraction of 55 to 60%. Echocardiogram done June 27, 2021 has an ejection fraction of 40 to 45% and her systolic function is globally impaired. Right ventricular pacing evident. Was placed in September 2020? Mild to moderate right ventricular enlargement. Moderate to severe mitral regurgitation. Moderate LAE, severe ORI. On Lasix 40mg IV bid (8) Perforated duodenal ulcer Assessment/Plan: Postop day #24. Status post ex lap with repair of posterior duodenal ulcer General surgery following. Bowel movement more regular. Tube feed discontinue later in the day on 07/17/21 due to aspiration. It had been initiated earlier on 07/17/21 at 25ml/hr (9) Hypothyroidism Assessment/Plan: On Synthroid 130 mcg IV Mondays and . (10) History of atrial fibrillation Assessment/Plan: Rate controlled. Not on any medication. (11) History of pulmonary embolism Assessment/Plan: On Lovenox 40 mg subcu daily for DVT prophylaxis. (12) Schizophrenia Assessment/Plan: Seroquel discontinued while patient is receiving Reglan for ileus. (13) Iron deficiency anemia Assessment/Plan: We will continue to monitor hemoglobin. - Current Meds Current Meds: Current Medications Generic Name Dose Route Start Last Admin Trade Name Freq PRN Reason Stop Dose Admin Acetaminophen 650 mg 07/17/21 11:05 07/19/21 09:01 Acetaminophen 325 Mg Tablet PO 650 mg Q6HR PRN Administration Pain or Fever > 38C (100.4F) Bisacodyl 10 mg 07/14/21 09:00 07/19/21 09:03 Bisacodyl 10 Mg Supp HI 10 mg DAILY JULIETA Administration Calcium Carbonate/Glycine 1,250 mg 07/19/21 13:00 07/19/21 13:08 Calcium Carbonate Chew 500 Mg Tablet PO 07/19/21 17:01 1,250 mg Q4H JULIETA Administration Protocol Chlorhexidine Gluconate 15 ml 06/27/21 21:00 07/19/21 09:04 Chlorhexidine Gluconate 15 Ml Udc PO 15 ml BID JULIETA Administration Enoxaparin Sodium 40 mg 06/28/21 09:00 07/19/21 09:04 Enoxaparin 40 Mg/0.4 Ml Syringe SUBQ 40 mg DAILY JULIETA Administration Furosemide 40 mg 07/17/21 19:00 07/19/21 06:07 Furosemide 40 Mg/4 Ml Vial IVP 40 mg BIDDIURETIC JULIETA Administration Glycopyrrolate 0.2 mg 06/28/21 21:17 07/18/21 20:40 Glycopyrrolate 1 Mg/5 Ml Vial SUBQ 0.2 mg Q6H PRN Administration Excessive Secretions Sodium Chloride 500 mls @ 20 mls/hr 06/26/21 23:03 07/19/21 12:43 Normal Saline 0.9% IV 20 mls/hr Q24H PRN Infusion TKO RATE Multivitamins 10 ml/ TRACE 2,011 mls @ 75 mls/hr 06/27/21 19:00 07/19/21 12:45 ELEMENTS 1 ml/ Amino Ac/ IV 75 mls/hr Electrol/Dextrose/Calcium Q24H JULIETA Infusion Protocol Norepinephrine Bitartrate 8 mg 250 mls @ 15 mls/hr 07/10/21 12:00 07/19/21 13:53 / Dextrose IV 16 mcg/min .[id number] JULIETA 30 mls/hr Titration Protocol 8 MCG/MIN Metronidazole 500 mg in 100 mls @ 100 mls/hr 07/17/21 20:00 07/19/21 13:50 Flagyl 500 Mg/100 Ml IV Infused Q8H JULIETA Infusion Dexmedetomidine HCl 400 mcg/ 100 mls @ 8.3 mls/hr 07/18/21 11:30 07/19/21 12:47 Sodium Chloride IV Not Given .Q12H3M JULIETA Protocol 0.4 MCG/KG/HR Fentanyl 2,500 mcg in 250 mls @ 8.65 mls/hr 07/18/21 12:30 07/19/21 14:05 Fentanyl IV 4 mcg/kg/hr .[id number] JULIETA 34.6 mls/hr Titration Protocol 1 MCG/KG/HR Levofloxacin 750 mg in 150 mls @ 100 mls/hr 07/19/21 10:00 07/19/21 12:05 Levaquin 750 Mg/150 Ml IV Infused Q24H JULIETA Infusion Levothyroxine Sodium 130 mcg 07/12/21 12:00 07/18/21 06:34 Levothyroxine 100 Mcg Vial IVP 130 mcg MoTh@0700 JULIETA Administration Mineral Oil 1 applic 07/01/21 01:24 07/06/21 20:24 Min Oil/Dimethicon/Coconut Oil 92 Gm Tube TOP 1 ea PRN PRN Administration Skin Care Pantoprazole Sodium 40 mg 06/27/21 07:00 07/19/21 06:07 Pantoprazole 40 Mg Vial IVP 40 mg QDAC JULIETA Administration Phenol/Menthol 2 sprays 07/05/21 21:24 07/07/21 11:03 Phenol Throat [place] 177 Ml MM 2 sprays Q2HR PRN Administration Throat Pain Quetiapine Fumarate 25 mg 07/18/21 21:00 07/19/21 09:04 Quetiapine 25 Mg Tablet PO 25 mg BID JULIETA Administration Sodium Chloride 10 ml 06/27/21 01:00 07/19/21 12:40 Sodium Chloride Flush 0.9% 10 Ml Syringe IVP Not Given 0100,0900,1700 JULIETA Sodium Chloride 10 ml 06/26/21 20:54 07/19/21 06:07 Sodium Chloride Flush 0.9% 10 Ml Syringe IVP 10 ml PRN PRN Administration NEEDED PER PROVIDER ORDERS Sodium Chloride 20 ml 06/26/21 23:03 07/19/21 05:10 Sodium Chloride Flush 0.9% 10 Ml Syringe IVP 20 ml PRN PRN Administration After Blood Draw - Lab Result Fish Bone Diagrams: 07/20/21 04:32 07/20/21 04:32 - Additional Planning My Orders: My Active Orders 07/18/21 21:00 QUEtiapine [SEROquel] 25 mg PO BID 07/19/21 08:03 RT - Obtain Arterial Specimen [RC] .ONCE 07/19/21 09:37 Blood Culture [CULTURE, BLOOD #1] [] Routine 07/19/21 10:00 levoFLOXacin 750 MG/150 ML [Levaquin 750 mg/150 ml] 750 mg in 150 ml IV Q24H 07/19/21 10:14 Blood Culture [CULTURE, BLOOD #2] [] Routine 07/19/21 11:05 Initiate NonViolent Restraint [RC] .PerProtocol 07/19/21 12:50 POTASSIUM [CHEM] Urgent 07/19/21 13:00 Calcium Carbonate [Tums] 1,250 mg PO Q4H 07/20/21 05:00 BMP - BASIC METABOLIC PANEL [CHEM] DAILYLAB CBC - COMP BLD CT W/AUTO DIFF [HEME] DAILYLAB 07/21/21 05:00 BMP - BASIC METABOLIC PANEL [CHEM] DAILYLAB CBC - COMP BLD CT W/AUTO DIFF [HEME] DAILYLAB 07/22/21 05:00 CBC - COMP BLD CT W/AUTO DIFF [HEME] DAILYLAB 07/23/21 05:00 CBC - COMP BLD CT W/AUTO DIFF [HEME] DAILYLAB 07/24/21 05:00 CBC - COMP BLD CT W/AUTO DIFF [HEME] DAILYLAB Subjective - Subjective Patient Reports: Other (Patient is sedated and intubated thus unable to provide a history. BP dropped to 88/43 around 9 am requiring resumption of pressor. She also had a temp of 38.8 degree Celsius and WBC dropped to 3.9) Objective Vital Signs: Vital Signs - 24 hr 07/18/21 07/18/21 07/18/21 14:30 15:00 15:25 Temperature Heart Rate 108 H Heart Rate [ 104 H Monitoring electrodes] Respiratory 13 24 Rate Blood Pressure 112/39 L 132/53 H [Left Brachial artery] O2 Saturation 98 98 07/18/21 07/18/21 07/18/21 16:00 17:00 17:05 Temperature 37.3 C Heart Rate Heart Rate [ 84 115 H 99 Monitoring electrodes] Respiratory 19 12 11 L Rate Blood Pressure 147/76 H 146/47 H 140/47 H [Left Brachial artery] O2 Saturation 99 100 100 07/18/21 07/18/21 07/18/21 17:10 17:15 17:20 Temperature Heart Rate Heart Rate [ 104 H 99 112 H Monitoring electrodes] Respiratory 14 16 16 Rate Blood Pressure 131/52 H 146/47 H 147/44 H [Left Brachial artery] O2 Saturation 100 100 100 07/18/21 07/18/21 07/18/21 17:25 17:30 17:35 Temperature Heart Rate Heart Rate [ 113 H 97 105 H Monitoring electrodes] Respiratory 12 15 14 Rate Blood Pressure 107/64 134/58 H 132/59 H [Left Brachial artery] O2 Saturation 100 100 100 07/18/21 07/18/21 07/18/21 17:36 17:40 17:45 Temperature Heart Rate 118 H Heart Rate [ 114 H 112 H Monitoring electrodes] Respiratory 12 14 Rate Blood Pressure 127/46 L 115/54 L [Left Brachial artery] O2 Saturation 100 100 07/18/21 07/18/21 07/18/21 18:00 18:15 18:30 Temperature Heart Rate Heart Rate [ 112 H 114 H 111 H Monitoring electrodes] Respiratory 9 L 16 18 Rate Blood Pressure 124/37 L 125/45 L 122/53 L [Left Brachial artery] O2 Saturation 99 100 100 07/18/21 07/18/21 07/18/21 20:00 20:06 21:00 Temperature Heart Rate 115 H Heart Rate [ 110 H 109 H Monitoring electrodes] Respiratory 14 14 Rate Blood Pressure 123/50 L 89/39 L [Left Brachial artery] O2 Saturation 98 98 07/18/21 07/18/21 07/18/21 21:53 22:00 23:00 Temperature 37.3 C Heart Rate 136 H 88 Heart Rate [ 118 H 112 H Monitoring electrodes] Respiratory 16 16 Rate Blood Pressure 99/55 L 99/44 L [Left Brachial artery] O2 Saturation 99 99 07/19/21 07/19/21 07/19/21 00:00 01:00 02:00 Temperature 37.2 C 37.2 C Heart Rate 76 Heart Rate [ 108 H 116 H 109 H Monitoring electrodes] Respiratory 16 16 16 Rate Blood Pressure 114/54 L 107/47 L 102/46 L [Left Brachial artery] O2 Saturation 98 98 98 07/19/21 07/19/21 07/19/21 02:35 03:00 04:00 Temperature 37.4 C Heart Rate 115 H Heart Rate [ 107 H 98 Monitoring electrodes] Respiratory 16 16 Rate Blood Pressure 114/56 L 122/58 L [Left Brachial artery] O2 Saturation 98 99 07/19/21 07/19/21 07/19/21 04:02 05:04 06:00 Temperature 37.3 C 37.4 C Heart Rate 76 Heart Rate [ 118 H 96 Monitoring electrodes] Respiratory 22 16 Rate Blood Pressure 127/53 L 104/47 L [Left Brachial artery] O2 Saturation 98 100 07/19/21 07/19/21 07/19/21 06:04 07:00 07:28 Temperature Heart Rate 96 95 Heart Rate [ 90 Monitoring electrodes] Respiratory 16 Rate Blood Pressure 98/44 L [Left Brachial artery] O2 Saturation 100 07/19/21 07/19/21 07/19/21 08:00 09:35 09:42 Temperature 38.8 C H Heart Rate Heart Rate [ 95 93 97 Monitoring electrodes] Respiratory 13 12 15 Rate Blood Pressure 118/47 L 70/35 L 81/45 L [Left Brachial artery] O2 Saturation 100 97 98 07/19/21 07/19/21 07/19/21 10:00 10:26 11:00 Temperature 37.8 C 37.8 C Heart Rate Heart Rate [ 89 91 91 Monitoring electrodes] Respiratory 13 12 Rate Blood Pressure 93/56 L 92/44 L 103/40 L [Left Brachial artery] O2 Saturation 97 96 07/19/21 07/19/21 07/19/21 11:19 12:53 13:00 Temperature 99.2 C H 99.2 C H Heart Rate 95 Heart Rate [ 93 99 Monitoring electrodes] Respiratory 12 16 Rate Blood Pressure 109/40 L 107/64 [Left Brachial artery] O2 Saturation 97 98 07/19/21 13:53 Temperature Heart Rate Heart Rate [ 92 Monitoring electrodes] Respiratory Rate Blood Pressure 97/40 L [Left Brachial artery] O2 Saturation Oxygen O2 Source Mechanical ventilator I&O (Last 24 Hrs): Intake and Output Totals x24h 07/17/21 07/18/21 07/19/21 23:59 23:59 23:59 Intake Total 3241.247 4480.961 2636.322 Output Total 1204 5221 1158 Balance 2037.247 -482.915 4801.322 General: Other (Sedated and intubated) HEENT: PERRLA, EOMI Neck: No JVD Cardiovascular: Regular rate, Normal S1, Normal S2 Respiratory: Chest non-tender, Rhonchi (bilaterally) Abdomen: Normal bowel sounds, Soft Extremities: Other (3+ lower extremity edema) Skin: No rashes, No breakdown, No significant lesion - Results Results: Laboratory Results WBC 3.9 x10^3/uL (4.8-10.8) L 07/19/21 05:50 RBC 2.72 10^6/uL (4.20-5.40) L 07/19/21 05:50 Hgb 8.0 g/dL (12.0-16.0) L 07/19/21 05:50 Hct 26.7 % (37.0-47.0) L 07/19/21 05:50 MCV 98.2 fL (81.0-99.0) 07/19/21 05:50 MCH 29.4 pg (27.0-31.0) 07/19/21 05:50 MCHC 30.0 g/dL (32.0-36.0) L 07/19/21 05:50 RDW 21.3 % (12.0-15.0) H 07/19/21 05:50 Plt Count 172 10^3/uL (130-450) 07/19/21 05:50 MPV 11.8 fL (7.9-10.8) H 07/19/21 05:50 Neut # (Auto) Not Reportable 07/19/21 05:50 Lymph # (Auto) Not Reportable 07/19/21 05:50 [place] # (Auto) Not Reportable 07/19/21 05:50 Eos # (Auto) Not Reportable 07/19/21 05:50 Baso # (Auto) Not Reportable 07/19/21 05:50 Absolute Nucleated RBC Not Reportable 07/19/21 05:50 Total Counted 100 07/19/21 05:50 Band Neuts % (Manual) 4 % (0-10) 07/19/21 05:50 Abnorm Lymph % (Manual) 0 % 07/19/21 05:50 Metamyelocytes % 1 % (-0) H 07/19/21 05:50 Myelocytes % 1 % (-0) H 07/11/21 05:00 Nucleated RBC % Not Reportable 07/19/21 05:50 Neutrophils # (Manual) 3.4 10^3/uL (1.5-6.6) 07/19/21 05:50 Lymphocytes # (Manual) 0.2 10^3/uL (1.5-3.5) L 07/19/21 05:50 Monocytes # (Manual) 0.2 10^3/uL (0.0-1.0) 07/19/21 05:50 Eosinophils # (Manual) 0.0 10^3/uL (0-0.7) 07/19/21 05:50 Basophils # (Manual) 0.0 10^3/uL (0-0.1) 07/19/21 05:50 Differential Comment MANUAL DIFFERENTIAL 07/19/21 05:50 Manual Slide Review Indicated 07/18/21 06:20 WBC Morphology NORMAL APPEARANCE (NORMAL) 07/16/21 04:47 Platelet Estimate NORMAL (130-450,000) (NORMAL) 07/19/21 05:50 Platelet Morphology NORMAL APPEARANCE (NORMAL) 07/19/21 05:50 RBC Morph Micro Appear 2+ HYPOCHROMASIA (NORMAL) 3+ ANISOCYTOSIS (NORMAL) 07/19/21 05:50 RBC Morph Micro Appear 2+ HYPOCHROMASIA (NORMAL) 3+ ANISOCYTOSIS (NORMAL) 07/19/21 05:50 Bld Gas Analysis Time 0900 07/19/21 09:00 Sample Site LEFT RADIAL 07/19/21 09:00 ABG pH 7.46 (7.35-7.45) H 07/19/21 09:00 ABG pCO2 39 mmHg (34-45) 07/19/21 09:00 ABG pO2 211 mmHg (80-100) H* 07/19/21 09:00 ABG HCO3 27.2 mmol/L (22.0-26.0) H 07/19/21 09:00 ABG Total CO2 28.4 MMOL/L (21.0-29.0) 07/19/21 09:00 ABG O2 Saturation 99 % (94-98) H 07/19/21 09:00 ABG Base Excess 3.2 mmol/L (-2.0-3.0) H 07/19/21 09:00 Ruperto Test POSITIVE 07/19/21 09:00 VBG pH 7.400 (7.31-7.41) 07/19/21 10:14 Ionized Calcium 1.08 mmol/L (1.15-1.33) L 07/19/21 10:14 Respiration Rate 12 b/min 07/19/21 09:00 O2 Delivery Device VENTILATOR 07/19/21 09:00 O2 Liters/Min 4.50 LPM 07/17/21 18:35 Vent Mode ACVC 07/19/21 09:00 FiO2 30.00 07/19/21 09:00 Tidal Volume 450 mL 07/19/21 09:00 PEEP 5 cmH2O 07/19/21 09:00 Pressure Support Vent 12 cmH2O 07/05/21 11:00 IPAP Not Reportable 06/27/21 05:43 Sodium 135 mmol/L (135-145) 07/19/21 05:50 Potassium 3.7 mmol/L (3.5-5.0) 07/19/21 05:50 Chloride 100 mmol/L (101-111) L 07/19/21 05:50 Carbon Dioxide 27 mmol/L (21-32) 07/19/21 05:50 Anion Gap 8.0 (6-13) 07/19/21 05:50 BUN 25 mg/dL (6-20) H 07/19/21 05:50 Creatinine 0.6 mg/dL (0.4-1.0) 07/19/21 05:50 Estimated GFR (MDRD) 96 (>89) 07/19/21 05:50 Glucose 119 mg/dL (70-100) H 07/19/21 05:50 POC Whole Bld Glucose 135 mg/dL (70 - 100) H 07/19/21 12:44 Lactic Acid 1.0 mmol/L (0.5-2.2) 07/17/21 20:14 Calcium 7.3 mg/dL (8.5-10.3) L 07/19/21 05:50 Ionized Calcium YES 07/04/21 04:43 Phosphorus 2.6 mg/dL (2.5-4.6) 07/19/21 05:50 Magnesium 1.9 mg/dL (1.7-2.8) 07/19/21 05:50 Iron 11 ug/dL (28-170) L 07/04/21 04:43 TIBC 115 ug/dL (250-450) L 07/04/21 04:43 % Saturation 10 % (20-50) L 07/04/21 04:43 Transferrin 82 mg/dL (192-382) L 07/04/21 04:43 Total Bilirubin 0.2 mg/dL (0.2-1.0) 07/19/21 05:50 Direct Bilirubin 0.2 mg/dL (0.1-0.5) 07/19/21 05:50 AST 96 IU/L (10-42) H 07/19/21 05:50 ALT 54 IU/L (10-60) 07/19/21 05:50 Alkaline Phosphatase 137 IU/L (42-121) H 07/19/21 05:50 Troponin I High Sens 121.5 ng/L (2.3-14.8) H* 07/18/21 06:51 C-Reactive Protein 7.1 mg/dL (0-1.0) H 07/04/21 04:43 B-Natriuretic Peptide 919 pg/mL (5-100) H 07/03/21 07:30 Total Protein 4.6 g/dL (6.7-8.2) L 07/19/21 05:50 Albumin 1.7 g/dL (3.2-5.5) L 07/19/21 05:50 Globulin 2.9 g/dL (2.1-4.2) 07/19/21 05:50 Albumin/Globulin Ratio 0.6 (1.0-2.2) L 07/17/21 07:50 Prealbumin 13 mg/dL (18-45) L 07/17/21 07:50 Triglycerides 69 mg/dL (-149) 07/19/21 05:50 Cholesterol 78 mg/dL (-199) 07/19/21 05:50 LDL Cholesterol, Calc 45 mg/dL (-129) 07/19/21 05:50 VLDL Cholesterol 14 mg/dL 07/19/21 05:50 HDL Cholesterol 19 mg/dL (60-) L 07/19/21 05:50 LDL/HDL Ratio 2.4 (<4.4) 07/19/21 05:50 Cholesterol/HDL Ratio 4.1 (<4.4) 07/19/21 05:50 Lipase 42 U/L (22-51) 06/26/21 14:26 TSH 3.29 uIU/mL (0.34-5.60) 07/02/21 04:42 Free T4 0.97 ng/dL (0.58-1.64) 07/02/21 04:42 Cortisol AM Sample 6.1 ug/dL 07/05/21 05:31 Urine Color YELLOW 06/26/21 22:51 Urine Clarity CLEAR (CLEAR) 06/26/21 22:51 Urine pH 5.0 PH (5.0-7.5) 06/26/21 22:51 Ur Specific [place] 1.015 (1.002-1.030) 06/26/21 22:51 Urine Protein NEGATIVE mg/dL (NEGATIVE) 06/26/21 22:51 Urine Glucose (UA) NEGATIVE mg/dL (NEGATIVE) 06/26/21 22:51 Urine Ketones NEGATIVE mg/dL (NEGATIVE) 06/26/21 22:51 Urine Occult Blood NEGATIVE (NEGATIVE) 06/26/21 22:51 Urine Nitrite NEGATIVE (NEGATIVE) 06/26/21 22:51 Urine Bilirubin NEGATIVE (NEGATIVE) 06/26/21 22:51 Urine Urobilinogen 0.2 (NORMAL) E.U./dL (NORMAL) 06/26/21 22:51 Ur Leukocyte Esterase TRACE (NEGATIVE) H 06/26/21 22:51 Urine RBC 0-5 /HPF (0-5) 06/26/21 22:51 Urine WBC 4-5 /HPF (0-5) 06/26/21 22:51 Ur Squamous Epith Cells FEW Squamous (<= Few) 06/26/21 22:51 Urine Bacteria Few /HPF (None Seen) 06/26/21 22:51 Urine Casts 3-5 Hyaline Casts /LPF 06/26/21 22:51 Ur Microscopic Review INDICATED 06/26/21 22:51 Urine Culture Comments INDICATED 06/26/21 22:51 Nasal Adenovirus (PCR) NOT DETECTED 07/14/21 16:00 Nasal B. parapertussis DNA (PCR) NOT DETECTED 07/14/21 16:00 Nasal Coronavir 229E PCR NOT DETECTED 07/14/21 16:00 Nasal Coronavir HKU1 PCR NOT DETECTED 07/14/21 16:00 Nasal Coronavir NL63 PCR NOT DETECTED 07/14/21 16:00 Nasal Coronavir OC43 PCR NOT DETECTED 07/14/21 16:00 Nasal Enterovir/Rhinovir PCR NOT DETECTED 07/14/21 16:00 Nasal Influenza B PCR NOT DETECTED 07/14/21 16:00 Nasal Influenza A PCR NOT DETECTED 07/14/21 16:00 Nasal Parainfluen 1 PCR NOT DETECTED 07/14/21 16:00 Nasal Parainfluen 2 PCR NOT DETECTED 07/14/21 16:00 Nasal Parainfluen 3 PCR NOT DETECTED 07/14/21 16:00 Nasal Parainfluen 4 PCR NOT DETECTED 07/14/21 16:00 Nasal RSV (PCR) NOT DETECTED 07/14/21 16:00 Nasal Screen MRSA (PCR) NEGATIVE (NEGATIVE) 06/26/21 21:55 Nasal B.pertussis DNA PCR NOT DETECTED 07/14/21 16:00 Nasal C.pneumoniae (PCR) NOT DETECTED 07/14/21 16:00 Mk Human Metapneumo PCR NOT DETECTED 07/14/21 16:00 Nasal M.pneumoniae (PCR) NOT DETECTED 07/14/21 16:00 Nasal SARS-CoV-2 (PCR) NOT DETECTED 07/14/21 16:00 Last Dose Date 07/19/2021 07/19/21 05:50 Last Dose Time 0100 07/19/21 05:50 Vancomycin Trough 16.8 ug/mL (10.0-20.0) 07/15/21 15:30 Digoxin 1.4 ng/mL 07/19/21 05:50 - Procedures Procedures: Procedures RESPIRATORY VENTILATION, LESS THAN 24 CONSECUTIVE HOURS (01/11/20) Sepsis Event Note (H) - Evaluation Current Stage of Sepsis: Septic shock Possible source of Sepsis: positive: GI tract/intra-abdominal - Sepsis Criteria Sepsis Criteria: WBC count greater than 10% bands, SBP drop more than 40mHg, MAP less than 65 mmHg, SBP less than 90 mmHg, Renal: urine output less than 0.5ml/kg/hr for 2 hours or creatinine gr, Metabolic: lactate > 2 mmol/L ABX Reporting Has patient been on IV antibiotics over the past 48 hours?: Yes
[2021-07-19] MEDS ORDERED: METOCLOPRAMIDE 10 MG/2 ML VIAL IVP PRN (14:37)
[2021-07-19] MEDS: TPN (CLINIMIX E 5/15) 2,000 ML with MULTIVITAMIN 10 ML, TRACE ELEMENTS 1 ML IV SCH ×3 (18:44)
[2021-07-19] MEDS: FAT EMUL/SOY/MCT/OLIV/FISH OIL 50 GM/250 ML BAG IV SCH (18:48)
[2021-07-19 21:39] LABS: CALCIUM, IONIZED 1.08 mmol/L (1.15-1.33); VBG PH 7.388 (7.31-7.41)
[2021-07-19] MEDS: SODIUM CHLORIDE 0.9% 500 ML IV PRN (23:18)
[2021-07-20] MEDS: fentaNYL 2,500 MCG/250 ML 2,500 MCG/250 ML BAG IV SCH ×4 (00:05→21:11)
[2021-07-20] MEDS: CALCIUM CARBONATE CHEW 500 MG TABLET PO SCH (03:04)
[2021-07-20] MEDS: metroNIDAZOLE 500 MG/100 ML 500 MG/100 ML BAG IV SCH ×3 (04:00→20:01)
[2021-07-20] MEDS: DEXMEDETOMIDINE 400 MCG/100 ML 100 ML IV SCH ×3 (04:10→23:06)
[2021-07-20 05:06] LABS: BASOPHILS % (AUTO) 0.5 %; HCT - HEMATOCRIT 28.2 % (37.0-47.0); HGB - HEMOGLOBIN 8.5 g/dL (12.0-16.0); LYMPHOCYTES % (AUTO) 15.5 %; MEAN CORPUSCULAR HEMOGLOBIN 29.4 pg (27.0-31.0); MEAN CORPUSCULAR HGB CONC 30.1 g/dL (32.0-36.0); MEAN CORPUSCULAR VOLUME 97.6 fL (81.0-99.0); MEAN PLATELET VOLUME 12.1 fL (7.9-10.8); MONOCYTES % (AUTO) 4.4 %; PLT - PLATELET COUNT 160 10^3/uL (130-450); RED BLOOD COUNT 2.89 10^6/uL (4.20-5.40); RED CELL DISTRIBUTION WIDTH 20.7 % (12.0-15.0); WHITE BLOOD COUNT 4.3 x10^3/uL (4.8-10.8)
[2021-07-20 05:13] LABS: ABNORMAL LYMPHS % (MANUAL) 0 %
[2021-07-20 05:18] LABS: CALCIUM 7.6 mg/dL (8.5-10.3); CREATININE 0.6 mg/dL (0.4-1.0); POTASSIUM 3.9 mmol/L (3.5-5.0)
[2021-07-20 05:35] LABS: BAND NEUTROPHILS % (MANUAL) 17 %; LYMPHOCYTES # (MANUAL) 0.6 10^3/uL (1.5-3.5); LYMPHOCYTES % (MANUAL) 14 %; MONOCYTES # (MANUAL) 0.4 10^3/uL (0.0-1.0); MYELOCYTES % (MANUAL) 1 %; NEUTROPHILS # (MANUAL) 3.3 10^3/uL (1.5-6.6); RBC MORPHOLOGY (MULTIPLE) 1+ ANISOCYTOSIS (NORMAL)
[2021-07-20 05:36] LABS: DIFFERENTIAL COMMENT MANUAL DIFFERENTIAL; PLATELET ESTIMATE, MANUAL NORMAL (130-450,000) (NORMAL); PLATELET MORPHOLOGY NORMAL APPEARANCE (NORMAL); WBC MORPHOLOGY (MULTIPLE) NORMAL APPEARANCE (NORMAL)
[2021-07-20] MEDS: FUROSEMIDE 40 MG/4 ML VIAL IVP SCH ×2 (06:09→15:11)
[2021-07-20] MEDS: PANTOPRAZOLE 40 MG VIAL IVP SCH (06:09)
[2021-07-20] MEDS: SODIUM CHLORIDE FLUSH 0.9% 10 ML SYRINGE IVP PRN ×2 (06:09→23:11)
[2021-07-20] MEDS: ACETAMINOPHEN 325 MG TABLET PO PRN ×2 (06:30→17:20)
[2021-07-20 06:44] LABS: MAGNESIUM 1.8 mg/dL (1.7-2.8); PHOSPHORUS 2.3 mg/dL (2.5-4.6)
[2021-07-20 07:34] LABS: CALCIUM, IONIZED 1.06 mmol/L (1.15-1.33); VBG PH 7.413 (7.31-7.41)
--- NOTE | 2021-07-20 07:50 | PROVIDER PROGRESS NOTE ---
Assessment/Plan - Problem List (1) Acute respiratory failure requiring reintubation Assessment/Plan: 07/20/21 No significant change in patient's clinical status This is day #3 of the third intubation. Overall patient has been intubated for over 21 days. Continue sedation with fentanyl. ABG done today showed pH 7.39 PCO2 45 PO2 62 Bicarbonate 26.3. This was on an FiO2 of 25, AC VC mode, tidal volume 450, Respiratory rate 12,PEEP 5, We will continue to attempt to transfer patient to another facility for higher level of care. 07/19/21 This is day #2 of the third intubation. Overall patient has been intubated for over 21 days. Continue sedation with fentanyl. ABG done today showed pH 7.46 PCO2 39 PO2 211 aBicarbonate 27. This was on an FiO2 of 30, AC VC mode, tidal volume 450, Respiratory rate 12, PEEP 5, We will continue to attempt to transfer patient to another facility for higher level of care. 07/18/21 Patient was extubated around 9 AM on 07/17/2021. This was the 7 days since re-intubation. She seemed to be maintaining/protecting her airway through the course of the morning into the afternoon. In the course of being cleaned/changed mid-afternoon, she vomited a significant amount of tube feed, By 6 PM on 07/17/2021ppeared less responsive. She was also very diaphoretic and appeared to be in respiratory distress. While she had only required 2 L of oxygen via nasal cannula to keep her oxygen saturation in the high 90s during the day, her oxygen requirement increased significantly. An ABG was done which showed 1.15, PCO2 79, PO2 69. Chest x-ray Around 7 PM on 07/17/2021 showed bibasilar airspace opacities suspicious for aspiration versus pneumonia. Cephalization of pulmonary vasculature and perihilar opacities compatible with pulmonary edema The patient's caregiver Henny was at bedside and wished for re-intubation. Her sister Katie Massey (DPOA) has given approval for Henny's input into the patient's medical decision As a result the patient was re-intubated. Based on previous conversations and discussion around the time of this reintubation the indication would be for a trach and PEG. On 07/18/2021 I further discussed with eHnny regarding the patient's quality of life with placement of a trach and PEG considering that she will be vent dependent indefinitely and also be at risk of aspirations. I mentioned consideration for palliative or hospice care. [facility] and [facility] wish to proceed with a trach and PEG. I have reached out to [facility] in [place], [facility] in [place] and [facility] in [place] however these hospitals are currently at capacity. The p laced her name on the list and will contact me once there is an availability. Yesterday after intubation the patient was sedated with propofol. This was changed to fentanyl and Precedex today 07/18/2021 to permit continuation of patient's TPN. ABG at 9 AM today showed pH 7.46, PCO2 37, PO2 101 and bicarb 25.4. The patient was on an FiO2 of 35%, assist control mode, tidal volume 420 PEEP 5. FiO2 was decreased to 30 and respiratory rate was decreased from 18 to 16 She is on norepinephrine. Patient was placed on Flagyl due to aspiration. She remains afebrile. White blood cell count is normal at 6.2 (2) On mechanically assisted ventilation Assessment/Plan: No significant change in patient's clinical status This is day #3 of the third intubation. Overall patient has been intubated for over 21 days. Continue sedation with fentanyl. ABG done today showed pH 7.39 PCO2 45 PO2 62 Bicarbonate 26.3. This was on an FiO2 of 25, AC VC mode, tidal volume 450, Respiratory rate 12,PEEP 5, We will continue to attempt to transfer patient to another facility for higher level of care. (3) Aspiration pneumonia Assessment/Plan: Patient had a temperature of 38.2 C. Her white blood cell count was 4.3. Continue Levaquin 750 mg IV daily and Flagyl 500 mg IV 3 times daily Continue levophed drip (4) Septic shock Assessment/Plan: Secondary to aspiration pneumonia. Patient is currently on Levaquin and Flagyl IV. Patient is on norepinephrine drip. Blood cultures are NGTD X1 day. (5) Ileus following gastrointestinal surgery Assessment/Plan: NG tube draining bilious looking secretions. On Reglan 5 mg IV every 6 hours as needed. (6) Anasarca Assessment/Plan: Lasix increased from 40 mg to 60 mg IV twice daily. (7) Chronic diastolic heart failure Assessment/Plan: Echo December 2019 had ejection fraction of 65 to 70%. Mild tricuspid regurgitation. RVSP was 43 mmHg. Echo January 2020 had ejection fraction of 55 to 60%. Echocardiogram done June 27, 2021 has an ejection fraction of 40 to 45% and her systolic function is globally impaired. Right ventricular pacing evident. Was placed in September 2020? Mild to moderate right ventricular enlargement. Moderate to severe mitral regurgitation. Moderate LAE, severe ORI. On Lasix 60mg IV bid (8) Perforated duodenal ulcer Assessment/Plan: Postop day #25. Status post ex lap with repair of posterior duodenal ulcer General surgery following. Bowel movement more regular. Tube feed discontinue later in the day on 07/17/21 due to aspiration. It had been initiated earlier on 07/17/21 at 25ml/hr (9) Hypothyroidism Assessment/Plan: On Synthroid 130 mcg IV Mondays and . (10) History of atrial fibrillation Assessment/Plan: Rate controlled. Not on any medication. (11) History of pulmonary embolism Assessment/Plan: On Lovenox 40 mg subcu daily for DVT prophylaxis. (12) Schizophrenia Assessment/Plan: Seroquel discontinued while patient is receiving Reglan for ileus. (13) Iron deficiency anemia Assessment/Plan: We will continue to monitor hemoglobin. - Current Meds Current Meds: Current Medications Generic Name Dose Route Start Last Admin Trade Name Freq PRN Reason Stop Dose Admin Acetaminophen 650 mg 07/17/21 11:05 07/20/21 06:30 Acetaminophen 325 Mg Tablet PO 650 mg Q6HR PRN Administration Pain or Fever > 38C (100.4F) Bisacodyl 10 mg 07/14/21 09:00 07/19/21 09:03 Bisacodyl 10 Mg Supp UT 10 mg DAILY JULIETA Administration Chlorhexidine Gluconate 15 ml 06/27/21 21:00 07/19/21 20:10 Chlorhexidine Gluconate 15 Ml Udc PO 15 ml BID JULIETA Administration Enoxaparin Sodium 40 mg 06/28/21 09:00 07/19/21 09:04 Enoxaparin 40 Mg/0.4 Ml Syringe SUBQ 40 mg DAILY JULIETA Administration Furosemide 40 mg 07/17/21 19:00 07/20/21 06:09 Furosemide 40 Mg/4 Ml Vial IVP 40 mg BIDDIURETIC JULIETA Administration Glycopyrrolate 0.2 mg 06/28/21 21:17 07/18/21 20:40 Glycopyrrolate 1 Mg/5 Ml Vial SUBQ 0.2 mg Q6H PRN Administration Excessive Secretions Sodium Chloride 500 mls @ 20 mls/hr 06/26/21 23:03 07/20/21 06:46 Normal Saline 0.9% IV 20 mls/hr Q24H PRN Infusion TKO RATE Multivitamins 10 ml/ TRACE 2,011 mls @ 75 mls/hr 06/27/21 19:00 07/20/21 06:4 3 ELEMENTS 1 ml/ Amino Ac/ IV 75 mls/hr Electrol/Dextrose/Calcium Q24H JULIETA Infusion Protocol Norepinephrine Bitartrate 8 mg 250 mls @ 15 mls/hr 07/10/21 12:00 07/20/21 06:43 / Dextrose IV 20 mcg/min .[id number] JULIETA 37.5 mls/hr Titration Protocol 8 MCG/MIN Metronidazole 500 mg in 100 mls @ 100 mls/hr 07/17/21 20:00 07/20/21 05:10 Flagyl 500 Mg/100 Ml IV Infused Q8H JULIETA Infusion Fentanyl 2,500 mcg in 250 mls @ 8.65 mls/hr 07/18/21 12:30 07/20/21 06:03 Fentanyl IV 4 mcg/kg/hr .[id number] JULIETA 34.6 mls/hr Administration Protocol 1 MCG/KG/HR Fat Emulsion-Soy/MCT/Fos[place]/Fish Oil 50 gm in 250 mls @ 21 mls/hr 07/19/21 19:00 07/20/21 06:46 Smoflipid 20% Iv Fat Emulsion IV Infused 1900 JULIETA Infusion Levofloxacin 750 mg in 150 mls @ 100 mls/hr 07/19/21 10:00 07/19/21 12:05 Levaquin 750 Mg/150 Ml IV Infused Q24H JULIETA Infusion Dexmedetomidine/Sodium Chloride 100 mls @ 4.35 mls/hr 07/19/21 17:00 07/20/21 06:41 Precedex Premix IV 0.4 mcg/kg/hr .Q23H JULIETA 8.7 mls/hr Titration Protocol 0.2 MCG/KG/HR Levothyroxine Sodium 130 mcg 07/12/21 12:00 07/18/21 06:34 Levothyroxine 100 Mcg Vial IVP 130 mcg MoTh@0700 JULIETA Administration Mineral Oil 1 applic 07/01/21 01:24 07/06/21 20:24 Min Oil/Dimethicon/Coconut Oil 92 Gm Tube TOP 1 ea PRN PRN Administration Skin Care Pantoprazole Sodium 40 mg 06/27/21 07:00 07/20/21 06:09 Pantoprazole 40 Mg Vial IVP 40 mg QDAC JULIETA Administration Phenol/Menthol 2 sprays 07/05/21 21:24 07/07/21 11:03 Phenol Throat Wyatt 177 Ml MM 2 sprays Q2HR PRN Administration Throat Pain Sodium Chloride 10 ml 06/27/21 01:00 07/19/21 23:20 Sodium Chloride Flush 0.9% 10 Ml Syringe IVP 10 ml 0100,0900,1700 JULIETA Administration Sodium Chloride 10 ml 06/26/21 20:54 07/20/21 06:09 Sodium Chloride Flush 0.9% 10 Ml Syringe IVP 10 ml PRN PRN Administration NEEDED PER PROVIDER ORDERS Sodium Chloride 20 ml 06/26/21 23:03 07/19/21 05:10 Sodium Chloride Flush 0.9% 10 Ml Syringe IVP 20 ml PRN PRN Administration After Blood Draw - Lab Result Fish Bone Diagrams: 07/20/21 04:32 07/20/21 04:32 - Additional Planning My Orders: My Active Orders 07/19/21 09:37 Blood Culture [CULTURE, BLOOD #1] [] Routine 07/19/21 10:00 levoFLOXacin 750 MG/150 ML [Levaquin 750 mg/150 ml] 750 mg in 150 ml IV Q24H 07/19/21 10:14 Blood Culture [CULTURE, BLOOD #2] [RM] Routine 07/19/21 14:37 Metoclopramide Inj [Reglan Inj] 5 mg IVP Q6HR PRN 07/20/21 07:41 ABG - ARTERIAL BLOOD GAS [BG] Routine 07/20/21 07:42 RT - Obtain Arterial Specimen [RC] .ONCE 07/20/21 08:00 Neutra-Phos [K-Phos Neutral] 250 mg PO Q2H 07/21/21 05:00 BMP - BASIC METABOLIC PANEL [CHEM] DAILYLAB CBC - COMP BLD CT W/AUTO DIFF [HEME] DAILYLAB 07/22/21 05:00 CBC - COMP BLD CT W/AUTO DIFF [HEME] DAILYLAB 07/23/21 05:00 CBC - COMP BLD CT W/AUTO DIFF [HEME] DAILYLAB 07/24/21 05:00 CBC - COMP BLD CT W/AUTO DIFF [HEME] DAILYLAB Subjective - Subjective Patient Reports: Other (Patient is sedated and intubated thus unable to provide a history. Appeared comfortable. Temperature this morning was 38.2 C. Patient appears very edematous) Objective Vital Signs: Vital Signs - 24 hr 07/19/21 07/19/21 07/19/21 08:00 09:35 09:42 Temperature 38.8 C H Heart Rate Heart Rate [ 95 93 97 Monitoring electrodes] Respiratory 13 12 15 Rate Blood Pressure 118/47 L 70/35 L 81/45 L [Left Brachial artery] O2 Saturation 100 97 98 07/19/21 07/19/21 07/19/21 10:00 10:26 11:00 Temperature 37.8 C 37.8 C Heart Rate Heart Rate [ 89 91 91 Monitoring electrodes] Respiratory 13 12 Rate Blood Pressure 93/56 L 92/44 L 103/40 L [Left Brachial artery] O2 Saturation 97 96 07/19/21 07/19/21 07/19/21 11:19 11:30 12:00 Temperature Heart Rate 95 Heart Rate [ 90 87 Monitoring electrodes] Respiratory Rate Blood Pressure 103/40 L 109/59 L [Left Brachial artery] O2 Saturation 07/19/21 07/19/21 07/19/21 12:53 13:00 13:45 Temperature 99.2 C H 99.2 C H Heart Rate Heart Rate [ 93 99 94 Monitoring electrodes] Respiratory 12 16 Rate Blood Pressure 109/40 L 107/64 97/40 L [Left Brachial artery] O2 Saturation 97 98 07/19/21 07/19/21 07/19/21 13:53 14:00 15:00 Temperature 37.7 C Heart Rate Heart Rate [ 92 94 91 Monitoring electrodes] Respiratory 13 16 Rate Blood Pressure 97/40 L 97/46 L 110/49 L [Left Brachial artery] O2 Saturation 99 98 07/19/21 07/19/21 07/19/21 15:35 15:39 16:00 Temperature Heart Rate 90 Heart Rate [ 96 84 Monitoring electrodes] Respiratory 17 Rate Blood Pressure 109/43 L 108/37 L [Left Brachial artery] O2 Saturation 100 07/19/21 07/19/21 07/19/21 17:06 18:00 19:00 Temperature 39.2 C H 38.7 C H 38.2 C H Heart Rate Heart Rate [ 104 H 99 87 Monitoring electrodes] Respiratory 13 13 12 Rate Blood Pressure 138/47 H 90/47 L 94/44 L [Left Brachial artery] O2 Saturation 100 97 94 07/19/21 07/19/21 07/19/21 19:10 20:00 21:00 Temperature 37.2 C Heart Rate 90 Heart Rate [ 90 92 Monitoring electrodes] Respiratory 9 L 12 Rate Blood Pressure 111/59 L 113/37 L [Left Brachial artery] O2 Saturation 94 94 07/19/21 07/19/21 07/19/21 21:55 22:00 23:00 Temperature 37.3 C 37 C Heart Rate 91 Heart Rate [ 88 95 Monitoring electrodes] Respiratory 12 16 Rate Blood Pressure 124/51 L 123/62 [Left Brachial artery] O2 Saturation 95 94 07/20/21 07/20/21 07/20/21 00:00 00:10 01:00 Temperature 37 C 37.0 C Heart Rate 92 Heart Rate [ 91 98 Monitoring electrodes] Respiratory 16 12 Rate Blood Pressure 125/58 L 112/66 [Left Brachial artery] O2 Saturation 95 96 07/20/21 07/20/21 07/20/21 02:00 03:00 03:05 Temperature 37.4 C 37.4 C Heart Rate 99 Heart Rate [ 96 97 Monitoring electrodes] Respiratory 20 18 Rate Blood Pressure 130/54 L 112/61 [Left Brachial artery] O2 Saturation 93 95 07/20/21 07/20/21 07/20/21 04:00 05:00 05:20 Temperature Heart Rate 85 Heart Rate [ 105 H 87 Monitoring electrodes] Respiratory 14 14 Rate Blood Pressure 132/55 H 116/53 L [Left Brachial artery] O2 Saturation 92 95 07/20/21 07/20/21 06:00 07:00 Temperature 38.2 C H 38.2 C H Heart Rate Heart Rate [ 81 87 Monitoring electrodes] Respiratory 11 L 15 Rate Blood Pressure 126/62 113/50 L [Left Brachial artery] O2 Saturation 96 94 Oxygen O2 Source Mechanical ventilator I&O (Last 24 Hrs): Intake and Output Totals x24h 07/18/21 07/19/21 07/20/21 23:59 23:59 23:59 Intake Total 4480.961 3958.306 2257.342 Output Total 5221 2678 1025 Balance -982.721 1585.306 1232.342 Comments/Notes: General: Other (Sedated and intubated) HEENT: PERRLA, EOMI Neck: No JVD Cardiovascular: Regular rate, Normal S1, Normal S2 Respiratory: Chest non-tender, Rhonchi (bilaterally) Abdomen: Normal bowel sounds, Soft Extremities: Other (3+ lower extremity edema) Skin: No rashes, No breakdown, No significant lesion - Results Results: Laboratory Results WBC 4.3 x10^3/uL (4.8-10.8) L 07/20/21 04:32 RBC 2.89 10^6/uL (4.20-5.40) L 07/20/21 04:32 Hgb 8.5 g/dL (12.0-16.0) L 07/20/21 04:32 Hct 28.2 % (37.0-47.0) L 07/20/21 04:32 MCV 97.6 fL (81.0-99.0) 07/20/21 04:32 MCH 29.4 pg (27.0-31.0) 07/20/21 04:32 MCHC 30.1 g/dL (32.0-36.0) L 07/20/21 04:32 RDW 20.7 % (12.0-15.0) H 07/20/21 04:32 Plt Count 160 10^3/uL (130-450) 07/20/21 04:32 MPV 12.1 fL (7.9-10.8) H 07/20/21 04:32 Neut # (Auto) Not Reportable 07/20/21 04:32 Lymph # (Auto) Not Reportable 07/20/21 04:32 Baker # (Auto) Not Reportable 07/20/21 04:32 Eos # (Auto) Not Reportable 07/20/21 04:32 Baso # (Auto) Not Reportable 07/20/21 04:32 Absolute Nucleated RBC Not Reportable 07/20/21 04:32 Total Counted 100 07/20/21 04:32 Band Neuts % (Manual) 17 % (0-10) H 07/20/21 04:32 Abnorm Lymph % (Manual) 0 % 07/20/21 04:32 Metamyelocytes % 1 % (-0) H 07/19/21 05:50 Myelocytes % 1 % (-0) H 07/20/21 04:32 Nucleated RBC % Not Reportable 07/20/21 04:32 Neutrophils # (Manual) 3.3 10^3/uL (1.5-6.6) 07/20/21 04:32 Lymphocytes # (Manual) 0.6 10^3/uL (1.5-3.5) L 07/20/21 04:32 Monocytes # (Manual) 0.4 10^3/uL (0.0-1.0) 07/20/21 04:32 Eosinophils # (Manual) 0.0 10^3/uL (0-0.7) 07/20/21 04:32 Basophils # (Manual) 0.0 10^3/uL (0-0.1) 07/20/21 04:32 Differential Comment MANUAL DIFFERENTIAL 07/20/21 04:32 Manual Slide Review Indicated 07/18/21 06:20 WBC Morphology NORMAL APPEARANCE (NORMAL) 07/20/21 04:32 Platelet Estimate NORMAL (130-450,000) (NORMAL) 07/20/21 04:32 Platelet Morphology NORMAL APPEARANCE (NORMAL) 07/20/21 04:32 RBC Morph Micro Appear 1+ ANISOCYTOSIS (NORMAL) 07/20/21 04:32 Bld Gas Analysis Time 0900 07/19/21 09:00 Sample Site LEFT RADIAL 07/19/21 09:00 ABG pH 7.46 (7.35-7.45) H 07/19/21 09:00 ABG pCO2 39 mmHg (34-45) 07/19/21 09:00 ABG pO2 211 mmHg (80-100) H* 07/19/21 09:00 ABG HCO3 27.2 mmol/L (22.0-26.0) H 07/19/21 09:00 ABG Total CO2 28.4 MMOL/L (21.0-29.0) 07/19/21 09:00 ABG O2 Saturation 99 % (94-98) H 07/19/21 09:00 ABG Base Excess 3.2 mmol/L (-2.0-3.0) H 07/19/21 09:00 Ruperto Test POSITIVE 07/19/21 09:00 VBG pH 7.413 (7.31-7.41) H 07/20/21 07:15 Ionized Calcium 1.06 mmol/L (1.15-1.33) L 07/20/21 07:15 Respiration Rate 12 b/min 07/19/21 09:00 O2 Delivery Device VENTILATOR 07/19/21 09:00 O2 Liters/Min 4.50 LPM 07/17/21 18:35 Vent Mode ACVC 07/19/21 09:00 FiO2 30.00 07/19/21 09:00 Tidal Volume 450 mL 07/19/21 09:00 PEEP 5 cmH2O 07/19/21 09:00 Pressure Support Vent 12 cmH2O 07/05/21 11:00 IPAP Not Reportable 06/27/21 05:43 Sodium 134 mmol/L (135-145) L 07/20/21 04:32 Potassium 3.9 mmol/L (3.5-5.0) 07/20/21 04:32 Chloride 100 mmol/L (101-111) L 07/20/21 04:32 Carbon Dioxide 28 mmol/L (21-32) 07/20/21 04:32 Anion Gap 6.0 (6-13) 07/20/21 04:32 BUN 24 mg/dL (6-20) H 07/20/21 04:32 Creatinine 0.6 mg/dL (0.4-1.0) 07/20/21 04:32 Estimated GFR (MDRD) 96 (>89) 07/20/21 04:32 Glucose 158 mg/dL (70-100) H 07/20/21 04:32 POC Whole Bld Glucose 167 mg/dL (70 - 100) H 07/20/21 06:12 Lactic Acid 1.0 mmol/L (0.5-2.2) 07/17/21 20:14 Calcium 7.6 mg/dL (8.5-10.3) L 07/20/21 04:32 Ionized Calcium YES 07/04/21 04:43 Phosphorus 2.3 mg/dL (2.5-4.6) L 07/20/21 04:32 Magnesium 1.8 mg/dL (1.7-2.8) 07/20/21 04:32 Iron 11 ug/dL (28-170) L 07/04/21 04:43 TIBC 115 ug/dL (250-450) L 07/04/21 04:43 % Saturation 10 % (20-50) L 07/04/21 04:43 Transferrin 82 mg/dL (192-382) L 07/04/21 04:43 Total Bilirubin 0.2 mg/dL (0.2-1.0) 07/19/21 05:50 Direct Bilirubin 0.2 mg/dL (0.1-0.5) 07/19/21 05:50 AST 96 IU/L (10-42) H 07/19/21 05:50 ALT 54 IU/L (10-60) 07/19/21 05:50 Alkaline Phosphatase 137 IU/L (42-121) H 07/19/21 05:50 Troponin I High Sens 121.5 ng/L (2.3-14.8) H* 07/18/21 06:51 C-Reactive Protein 7.1 mg/dL (0-1.0) H 07/04/21 04:43 B-Natriuretic Peptide 919 pg/mL (5-100) H 07/03/21 07:30 Total Protein 4.6 g/dL (6.7-8.2) L 07/19/21 05:50 Albumin 1.7 g/dL (3.2-5.5) L 07/19/21 05:50 Globulin 2.9 g/dL (2.1-4.2) 07/19/21 05:50 Albumin/Globulin Ratio 0.6 (1.0-2.2) L 07/17/21 07:50 Prealbumin 13 mg/dL (18-45) L 07/17/21 07:50 Triglycerides 69 mg/dL (-149) 07/19/21 05:50 Cholesterol 78 mg/dL (-199) 07/19/21 05:50 LDL Cholesterol, Calc 45 mg/dL (-129) 07/19/21 05:50 VLDL Cholesterol 14 mg/dL 07/19/21 05:50 HDL Cholesterol 19 mg/dL (60-) L 07/19/21 05:50 LDL/HDL Ratio 2.4 (<4.4) 07/19/21 05:50 Cholesterol/HDL Ratio 4.1 (<4.4) 07/19/21 05:50 Lipase 42 U/L (22-51) 06/26/21 14:26 TSH 3.29 uIU/mL (0.34-5.60) 07/02/21 04:42 Free T4 0.97 ng/dL (0.58-1.64) 07/02/21 04:42 Cortisol AM Sample 6.1 ug/dL 07/05/21 05:31 Urine Color YELLOW 06/26/21 22:51 Urine Clarity CLEAR (CLEAR) 06/26/21 22:51 Urine pH 5.0 PH (5.0-7.5) 06/26/21 22:51 Ur Specific [place] 1.015 (1.002-1.030) 06/26/21 22:51 Urine Protein NEGATIVE mg/dL (NEGATIVE) 06/26/21 22:51 Urine Glucose (UA) NEGATIVE mg/dL (NEGATIVE) 06/26/21 22:51 Urine Ketones NEGATIVE mg/dL (NEGATIVE) 06/26/21 22:51 Urine Occult Blood NEGATIVE (NEGATIVE) 06/26/21 22:51 Urine Nitrite NEGATIVE (NEGATIVE) 06/26/21 22:51 Urine Bilirubin NEGATIVE (NEGATIVE) 06/26/21 22:51 Urine Urobilinogen 0.2 (NORMAL) E.U./dL (NORMAL) 06/26/21 22:51 Ur Leukocyte Esterase TRACE (NEGATIVE) H 06/26/21 22:51 Urine RBC 0-5 /HPF (0-5) 06/26/21 22:51 Urine WBC 4-5 /HPF (0-5) 06/26/21 22:51 Ur Squamous Epith Cells FEW Squamous (<= Few) 06/26/21 22:51 Urine Bacteria Few /HPF (None Seen) 06/26/21 22:51 Urine Casts 3-5 Hyaline Casts /LPF 06/26/21 22:51 Ur Microscopic Review INDICATED 06/26/21 22:51 Urine Culture Comments INDICATED 06/26/21 22:51 Nasal Adenovirus (PCR) NOT DETECTED 07/14/21 16:00 Nasal B. parapertussis DNA (PCR) NOT DETECTED 07/14/21 16:00 Nasal Coronavir 229E PCR NOT DETECTED 07/14/21 16:00 Nasal Coronavir HKU1 PCR NOT DETECTED 07/14/21 16:00 Nasal Coronavir NL63 PCR NOT DETECTED 07/14/21 16:00 Nasal Coronavir OC43 PCR NOT DETECTED 07/14/21 16:00 Nasal Enterovir/Rhinovir PCR NOT DETECTED 07/14/21 16:00 Nasal Influenza B PCR NOT DETECTED 07/14/21 16:00 Nasal Influenza A PCR NOT DETECTED 07/14/21 16:00 Nasal Parainfluen 1 PCR NOT DETECTED 07/14/21 16:00 Nasal Parainfluen 2 PCR NOT DETECTED 07/14/21 16:00 Nasal Parainfluen 3 PCR NOT DETECTED 07/14/21 16:00 Nasal Parainfluen 4 PCR NOT DETECTED 07/14/21 16:00 Nasal RSV (PCR) NOT DETECTED 07/14/21 16:00 Nasal Screen MRSA (PCR) NEGATIVE (NEGATIVE) 06/26/21 21:55 Nasal B.pertussis DNA PCR NOT DETECTED 07/14/21 16:00 Nasal C.pneumoniae (PCR) NOT DETECTED 07/14/21 16:00 Mk Human Metapneumo PCR NOT DETECTED 07/14/21 16:00 Nasal M.pneumoniae (PCR) NOT DETECTED 07/14/21 16:00 Nasal SARS-CoV-2 (PCR) NOT DETECTED 07/14/21 16:00 Last Dose Date 07/19/2021 07/19/21 05:50 Last Dose Time 0100 07/19/21 05:50 Vancomycin Trough 16.8 ug/mL (10.0-20.0) 07/15/21 15:30 Digoxin 1.4 ng/mL 07/19/21 05:50 - Procedures Procedures: Procedures RESPIRATORY VENTILATION, LESS THAN 24 CONSECUTIVE HOURS (01/11/20) Sepsis Event Note (H) - Evaluation Current Stage of Sepsis: Septic shock Possible source of Sepsis: positive: GI tract/intra-abdominal - Sepsis Criteria Sepsis Criteria: WBC count greater than 10% bands, SBP drop more than 40mHg, MAP less than 65 mmHg, SBP less than 90 mmHg, Renal: urine output less than 0.5ml/kg/hr for 2 hours or creatinine gr, Metabolic: lactate > 2 mmol/L ABX Reporting Has patient been on IV antibiotics over the past 48 hours?: Yes
[2021-07-20] MEDS ORDERED: NEUTRA-PHOS 250 MG TABLET PO SCH (08:00)
[2021-07-20 08:16] LABS: ABG PCO2 45 mmHg (34-45); ABG PH 7.39 (7.35-7.45); ABG PO2 62 mmHg (80-100)
[2021-07-20 08:17] LABS: ABG BASE EXCESS 1.1 mmol/L (-2.0-3.0); ABG HCO3 26.3 mmol/L (22.0-26.0); ABG MODE OF VENTILATION AC/VC; ABG OXYGEN SATURATION 91 % (94-98); ABG RESPIRATORY RATE 12 b/min; ABG TCO2 27.7 MMOL/L (21.0-29.0); ALLEN TEST POSITIVE
[2021-07-20] MEDS: BISACODYL 10 MG SUPP PR SCH (09:07)
[2021-07-20] MEDS: NEUTRA-PHOS 250 MG TABLET PO SCH ×2 (09:07→12:15)
[2021-07-20] MEDS: SODIUM CHLORIDE FLUSH 0.9% 10 ML SYRINGE IVP SCH ×3 (09:08→20:02)
[2021-07-20] MEDS: ENOXAPARIN 40 MG/0.4 ML SYRINGE SUBQ SCH (09:08)
[2021-07-20] MEDS: CHLORHEXIDINE GLUCONATE 15 ML UDC PO SCH ×2 (09:08→20:11)
[2021-07-20] MEDS: levoFLOXacin 750 MG/150 ML 750 MG/150 ML BAG IV SCH (11:30)
[2021-07-20] MEDS: TPN (CLINIMIX E 5/15) 2,000 ML with MULTIVITAMIN 10 ML, TRACE ELEMENTS 1 ML IV SCH ×3 (18:31)
[2021-07-20] MEDS: FAT EMUL/SOY/MCT/OLIV/FISH OIL 50 GM/250 ML BAG IV SCH (18:32)
[2021-07-20] MEDS: SCOPOLAMINE PATCH TOP SCH (19:00)
[2021-07-21] MEDS: HYDROmorphone 1 MG/ML CARPUJECT IVP PRN ×3 (00:13→08:16)
[2021-07-21] MEDS: SODIUM CHLORIDE FLUSH 0.9% 10 ML SYRINGE IVP SCH ×4 (00:13→23:52)
[2021-07-21] MEDS: fentaNYL 2,500 MCG/250 ML 2,500 MCG/250 ML BAG IV SCH ×5 (03:18→23:40)
[2021-07-21] MEDS: metroNIDAZOLE 500 MG/100 ML 500 MG/100 ML BAG IV SCH ×3 (04:11→19:47)
[2021-07-21] MEDS: SODIUM CHLORIDE FLUSH 0.9% 10 ML SYRINGE IVP PRN ×2 (04:19→06:09)
[2021-07-21] MEDS: DEXMEDETOMIDINE 400 MCG/100 ML 100 ML IV SCH ×3 (05:00→18:00)
[2021-07-21 05:23] LABS: BASOPHILS % (AUTO) 0.3 %; EOSINOPHILS % (AUTO) 0.3 %; HCT - HEMATOCRIT 26.3 % (37.0-47.0); HGB - HEMOGLOBIN 8.2 g/dL (12.0-16.0); LYMPHOCYTES % (AUTO) 19.9 %; MEAN CORPUSCULAR HGB CONC 31.2 g/dL (32.0-36.0); MEAN CORPUSCULAR VOLUME 96.3 fL (81.0-99.0); MEAN PLATELET VOLUME 12.5 fL (7.9-10.8); MONOCYTES % (AUTO) 6.5 %; NEUTROPHILS % (AUTO) 69.1 %; PLT - PLATELET COUNT 110 10^3/uL (130-450); RED BLOOD COUNT 2.73 10^6/uL (4.20-5.40); RED CELL DISTRIBUTION WIDTH 20.7 % (12.0-15.0); WHITE BLOOD COUNT 3.9 x10^3/uL (4.8-10.8)
[2021-07-21 05:27] LABS: CALCIUM 7.2 mg/dL (8.5-10.3); CREATININE 0.5 mg/dL (0.4-1.0); POTASSIUM 3.5 mmol/L (3.5-5.0)
[2021-07-21 05:33] LABS: MAGNESIUM 1.8 mg/dL (1.7-2.8); PHOSPHORUS 2.3 mg/dL (2.5-4.6)
[2021-07-21 05:44] LABS: ABNORMAL LYMPHS % (MANUAL) 1 %; BAND NEUTROPHILS % (MANUAL) 26 %; LYMPHOCYTES # (MANUAL) 0.7 10^3/uL (1.5-3.5); LYMPHOCYTES % (MANUAL) 17 %; MONOCYTES # (MANUAL) 0.2 10^3/uL (0.0-1.0); MYELOCYTES % (MANUAL) 2 %; PLATELET ESTIMATE, MANUAL DECREASED (<130,000) (NORMAL); PLATELET MORPHOLOGY NORMAL APPEARANCE (NORMAL); RBC MORPHOLOGY (MULTIPLE) 1+ ANISOCYTOSIS (NORMAL)
[2021-07-21 05:45] LABS: DIFFERENTIAL COMMENT MANUAL DIFFERENTIAL; WBC MORPHOLOGY (MULTIPLE) NORMAL APPEARANCE (NORMAL)
[2021-07-21] MEDS: PANTOPRAZOLE 40 MG VIAL IVP SCH (06:09)
[2021-07-21] MEDS: FUROSEMIDE 40 MG/4 ML VIAL IVP SCH ×2 (06:09→14:12)
[2021-07-21] MEDS: SODIUM CHLORIDE 0.9% 500 ML IV PRN (08:16)
[2021-07-21] MEDS: BISACODYL 10 MG SUPP PR SCH (08:19)
[2021-07-21] MEDS: NEUTRA-PHOS 250 MG TABLET PO SCH ×2 (08:19→10:25)
[2021-07-21] MEDS: CHLORHEXIDINE GLUCONATE 15 ML UDC PO SCH ×2 (08:19→21:07)
[2021-07-21 08:30] LABS: CALCIUM, IONIZED 1.05 mmol/L (1.15-1.33); VBG PH 7.428 (7.31-7.41)
[2021-07-21] MEDS: ENOXAPARIN 40 MG/0.4 ML SYRINGE SUBQ SCH (08:30)
--- NOTE | 2021-07-21 08:32 | PROVIDER PROGRESS NOTE ---
Assessment/Plan - Problem List (1) Acute respiratory failure requiring reintubation Assessment/Plan: 07/21/21 No significant change in patient's clinical status This is day #4 of the third intubation. Overall patient has been intubated for over 21 days. Continue sedation with fentanyl and precedex We will continue to attempt to transfer patient to another facility for higher level of care. Attempts to date have been unsuccessful. 07/20/21 No significant change in patient's clinical status This is day #3 of the third intubation. Overall patient has been intubated for over 21 days. Continue sedation with fentanyl and precedex. ABG done today showed pH 7.39 PCO2 45 PO2 62 Bicarbonate 26.3. We will continue to attempt to transfer patient to another facility for higher level of care. 07/19/21 This is day #2 of the third intubation. Overall patient has been intubated for over 21 days. Continue sedation with fentanyl. ABG done today showed pH 7.46 PCO2 39 PO2 211 aBicarbonate 27. This was on an FiO2 of 30, AC VC mode, tidal volume 450, Respiratory rate 12,PEEP 5, We will continue to attempt to transfer patient to another facility for higher level of care. 07/18/21 Patient was extubated around 9 AM on 07/17/2021. This was the 7 days since re-intubation. She seemed to be maintaining/protecting her airway through the course of the morning into the afternoon. In the course of being cleaned/changed mid-afternoon, she vomited a significant amount of tube feed, By 6 PM on 07/17/2021ppeared less responsive. She was also very diaphoretic and appeared to be in respiratory distress. While she had only required 2 L of oxygen via nasal cannula to keep her oxygen saturation in the high 90s during the day, her oxygen requirement increased significantly. An ABG was done which showed 1.15, PCO2 79, PO2 69. Chest x-ray Around 7 PM on 07/17/2021 showed bibasilar airspace opacities suspicious for aspiration versus pneumonia. Cephalization of pulmonary vasculature and perihilar opacities compatible with pulmonary edema The patient's caregiver Henny was at bedside and wished for re-intubation. Her sister Katie Massey (DPTOM) has given approval for Henny's input into the patient's medical decision As a result the patient was re-intubated. Based on previous conversations and discussion around the time of this reintubation the indication would be for a trach and PEG. On 07/18/2021 I further discussed with [facility] regarding the patient's quality of life with placement of a trach and PEG considering that she will be vent dependent indefinitely and also be at risk of aspirations. I mentioned consideration for palliative or hospice care. [facility] and [facility] wish to proceed with a trach and PEG. I have reached out to [facility] in [place], [facility] in [place] and [facility] in [place] however these hospitals are currently at capacity. The placed her name on the list and will contact me once there is an availability. Yesterday after intubation the patient was sedated with propofol. This was changed to fentanyl and Precedex today 07/18/2021 to permit continuation of patient's TPN. ABG at 9 AM today showed pH 7.46, PCO2 37, PO2 101 and bicarb 25.4. The patient was on an FiO2 of 35%, assist control mode, tidal volume 420 PEEP 5. FiO2 was decreased to 30 and respiratory rate was decreased from 18 to 16 She is on norepinephrine. Patient was placed on Flagyl due to aspiration. She remains afebrile. White blood cell count is normal at 6.2 (2) On mechanically assisted ventilation Assessment/Plan: No significant change in patient's clinical status This is day #4 of the third intubation. Overall patient has been intubated for over 21 days. Continue sedation with fentanyl. This was on an FiO2 of 25, AC VC mode, tidal volume 450, Respiratory rate 12,PEEP 5, We will continue to attempt to transfer patient to another facility for higher level of care. (3) Aspiration pneumonia Assessment/Plan: Patient had a temperature of 38.2 C. Her white blood cell count was 4.3. Continue Levaquin 750 mg IV daily and Flagyl 500 mg IV 3 times daily 2 blood cultures grew yeast. The patient was started on Diflucan 200 mg IV daily on 07/21/21. Continue levophed drip (4) Septic shock Assessment/Plan: Secondary to aspiration pneumonia. Patient is currently on Levaquin and Flagyl IV. 2 blood cultures grew yeast. The patient was started on Diflucan 200 mg IV daily on 07/21/21. Patient is on norepinephrine drip. (5) Ileus following gastrointestinal surgery Assessment/Plan: NG tube draining bilious looking secretions. On Reglan 5 mg IV every 6 hours as needed. No bowel movement in 3 days. (6) Anasarca Assessment/Plan: Lasix increased from 40 mg to 60 mg IV twice daily. TPN held 07/21/2021 Due to extensive anasarca (7) Chronic diastolic heart failure Assessment/Plan: Echo December 2019 had ejection fraction of 65 to 70%. Mild tricuspid regurgitation. RVSP was 43 mmHg. Echo January 2020 had ejection fraction of 55 to 60%. Echocardiogram done June 27, 2021 has an ejection fraction of 40 to 45% and her systolic function is globally impaired. Right ventricular pacing evident. Was placed in September 2020? Mild to moderate right ventricular enlargement. Moderate to severe mitral regurgitation. Moderate LAE, severe ORI. On Lasix 60mg IV bid (8) Perforated duodenal ulcer Assessment/Plan: Postop day #26. Status post ex lap with repair of posterior duodenal ulcer General surgery following. No bowel movement in 3 days. Increased billous appearing secretions Tube feed discontinue later in the day on 07/17/21 due to aspiration. It had been initiated earlier on 07/17/21 at 25ml/hr TPN held 07/21/2021 Due to extensive anasarca (9) Hypothyroidism Assessment/Plan: On Synthroid 130 mcg IV Mondays and . (10) History of atrial fibrillation Assessment/Plan: Rate controlled. Not on any medication. (11) History of pulmonary embolism Assessment/Plan: On Lovenox 40 mg subcu daily for DVT prophylaxis. (12) Schizophrenia Assessment/Plan: Seroquel discontinued while patient is receiving Reglan for ileus. (13) Iron deficiency anemia Assessment/Plan: We will continue to monitor hemoglobin. - Current Meds Current Meds: Current Medications Generic Name Dose Route Start Last Admin Trade Name Freq PRN Reason Stop Dose Admin Acetaminophen 650 mg 07/17/21 11:05 07/20/21 17:20 Acetaminophen 325 Mg Tablet PO 650 mg Q6HR PRN Administration Pain or Fever > 38C (100.4F) Bisacodyl 10 mg 07/14/21 09:00 07/21/21 08:19 Bisacodyl 10 Mg Supp [place] 10 mg DAILY JULIETA Administration Chlorhexidine Gluconate 15 ml 06/27/21 21:00 07/21/21 08:19 Chlorhexidine Gluconate 15 Ml Udc PO 15 ml BID JULIETA Administration Enoxaparin Sodium 40 mg 06/28/21 09:00 07/21/21 08:30 Enoxaparin 40 Mg/0.4 Ml Syringe SUBQ 40 mg DAILY JULIETA Administration Furosemide 60 mg 07/20/21 15:00 07/21/21 06:09 Furosemide 40 Mg/4 Ml Vial IVP 60 mg BIDDIURETIC JULIETA Administration Glycopyrrolate 0.2 mg 06/28/21 21:17 07/18/21 20:40 Glycopyrrolate 1 Mg/5 Ml Vial SUBQ 0.2 mg Q6H PRN Administration Excessive Secretions Hydromorphone HCl 1 mg 07/18/21 09:27 07/21/21 08:16 Hydromorphone 1 Mg/Ml Carpuject IVP 1 mg Q2H PRN Administration PAIN Sodium Chloride 500 mls @ 20 mls/hr 06/26/21 23:03 07/21/21 08:16 Normal Saline 0.9% IV 20 mls/hr Q24H PRN Administration TKO RATE Multivitamins 10 ml/ TRACE 2,011 mls @ 75 mls/hr 06/27/21 19:00 07/21/21 06:45 ELEMENTS 1 ml/ Amino Ac/ IV 75 mls/hr Electrol/Dextrose/Calcium Q24H JULIETA Infusion Protocol Norepinephrine Bitartrate 8 mg 250 mls @ 15 mls/hr 07/10/21 12:00 07/21/21 07:45 / Dextrose IV 12 mcg/min .[id number] JULIETA 22.5 mls/hr Administration Protocol 8 MCG/MIN Metronidazole 500 mg in 100 mls @ 100 mls/hr 07/17/21 20:00 07/21/21 05:15 Flagyl 500 Mg/100 Ml IV Infused Q8H JULIETA Infusion Fentanyl 2,500 mcg in 250 mls @ 8.65 mls/hr 07/18/21 12:30 07/21/21 08:15 Fentanyl IV 6 mcg/kg/hr .[id number] JULIETA 51.9 mls/hr Administration Protocol 1 MCG/KG/HR Fat Emulsion-Soy/MCT/[place]/Fish Oil 50 gm in 250 mls @ 21 mls/hr 07/19/21 19:00 07/21/21 06:30 Smoflipid 20% Iv Fat Emulsion IV Infused 1900 JULIETA Infusion Levofloxacin 750 mg in 150 mls @ 100 mls/hr 07/19/21 10:00 07/20/21 13:00 Levaquin 750 Mg/150 Ml IV Infused Q24H JULIETA Infusion Dexmedetomidine/Sodium Chloride 100 mls @ 4.35 mls/hr 07/19/21 17:00 07/21/21 06:45 Precedex Premix IV 0.8 mcg/kg/hr .Q23H JULIETA 17.4 mls/hr Titration Protocol 0.2 MCG/KG/HR Levothyroxine Sodium 130 mcg 07/12/21 12:00 07/18/21 06:34 Levothyroxine 100 Mcg Vial IVP 130 mcg MoTh@0700 JULIETA Administration Mineral Oil 1 applic 07/01/21 01:24 07/06/21 20:24 Min Oil/Dimethicon/Coconut Oil 92 Gm Tube TOP 1 ea PRN PRN Administration Skin Care Pantoprazole Sodium 40 mg 06/27/21 07:00 07/21/21 06:09 Pantoprazole 40 Mg Vial IVP 40 mg QDAC JULIETA Administration Phenol/Menthol 2 sprays 07/05/21 21:24 07/07/21 11:03 Phenol Throat [place] 177 Ml MM 2 sprays Q2HR PRN Administration Throat Pain Scopolamine HBr 1 patch 07/20/21 19:00 07/20/21 19:00 Scopolamine Patch TOP 1 patch Q3D JULIETA Administration Sodium Chloride 10 ml 06/27/21 01:00 07/21/21 00:13 Sodium Chloride Flush 0.9% 10 Ml Syringe IVP 10 ml 0100,0900,1700 JULIETA Administration Sodium Chloride 10 ml 06/26/21 20:54 07/21/21 06:09 Sodium Chloride Flush 0.9% 10 Ml Syringe IVP 10 ml PRN PRN Administration NEEDED PER PROVIDER ORDERS Sodium Chloride 20 ml 06/26/21 23:03 07/19/21 05:10 Sodium Chloride Flush 0.9% 10 Ml Syringe IVP 20 ml PRN PRN Administration After Blood Draw Sodium Phosphate 250 mg 07/21/21 08:00 07/21/21 08:19 Neutra-Phos 250 Mg Tablet PO 07/21/21 10:01 250 mg Q2H JULIETA Administration Protocol - Lab Result Fish Bone Diagrams: 07/22/21 04:54 07/22/21 04:54 - Additional Planning My Orders: My Active Orders 07/20/21 15:00 FUROSEMIDE INJ 40mg VIAL [LASIX INJ 40 mg VIAL] 60 mg IVP BIDDIURETIC 07/20/21 19:00 Scopolamine Patch [Transderm-Scop] 1 patch TOP Q3D 07/22/21 05:00 CBC - COMP BLD CT W/AUTO DIFF [HEME] DAILYLAB 07/23/21 05:00 CBC - COMP BLD CT W/AUTO DIFF [HEME] DAILYLAB 07/24/21 05:00 CBC - COMP BLD CT W/AUTO DIFF [HEME] DAILYLAB Subjective - Subjective Patient Reports: Other (Patient is sedated and intubated thus unable to provide a history. Patient was very restless and appeared uncomfortable despite sedation. She was significantly diaphoretic. She had a temperature this morning of 38.2 C. She has significant anasarca.) Objective Vital Signs: Vital Signs - 24 hr 07/20/21 07/20/21 07/20/21 09:00 10:00 11:00 Temperature Heart Rate Heart Rate [ 84 78 82 Monitoring electrodes] Respiratory 18 13 15 Rate Blood Pressure 138/64 H 115/53 L 123/59 L [Left Brachial artery] O2 Saturation 95 96 95 07/20/21 07/20/21 07/20/21 11:30 12:10 13:00 Temperature 36.5 C Heart Rate 84 Heart Rate [ 80 86 Monitoring electrodes] Respiratory 12 16 Rate Blood Pressure 120/63 110/55 L [Left Brachial artery] O2 Saturation 95 96 07/20/21 07/20/21 07/20/21 14:00 14:02 15:00 Temperature 38 C H Heart Rate 91 Heart Rate [ 93 81 Monitoring electrodes] Respiratory 16 15 Rate Blood Pressure 140/70 H 107/54 L [Left Brachial artery] O2 Saturation 95 94 07/20/21 07/20/21 07/20/21 16:00 17:00 18:00 Temperature 38 C H 37.3 C Heart Rate Heart Rate [ 89 89 96 Monitoring electrodes] Respiratory 16 16 13 Rate Blood Pressure 122/60 140/69 H 120/75 [Left Brachial artery] O2 Saturation 97 95 97 07/20/21 07/20/21 07/20/21 18:14 19:00 19:25 Temperature Heart Rate 88 81 Heart Rate [ 78 Monitoring electrodes] Respiratory 12 Rate Blood Pressure 113/51 L [Left Brachial artery] O2 Saturation 95 07/20/21 07/20/21 07/20/21 20:05 21:25 22:00 Temperature 37.1 C 37.2 C Heart Rate 79 Heart Rate [ 81 75 Monitoring electrodes] Respiratory 14 14 Rate Blood Pressure 101/54 L 98/53 L [Left Brachial artery] O2 Saturation 96 97 07/20/21 07/20/21 07/20/21 23:00 23:30 23:35 Temperature 37.3 C Heart Rate 85 Heart Rate [ 102 H 75 Monitoring electrodes] Respiratory 16 15 Rate Blood Pressure 98/46 L 113/60 [Left Brachial artery] O2 Saturation 98 98 07/21/21 07/21/21 07/21/21 00:00 01:00 01:25 Temperature Heart Rate 76 Heart Rate [ 81 76 Monitoring electrodes] Respiratory 11 L 14 Rate Blood Pressure 109/58 L 110/54 L [Left Brachial artery] O2 Saturation 96 96 07/21/21 07/21/21 07/21/21 02:00 03:00 03:30 Temperature Heart Rate 77 Heart Rate [ 75 86 Monitoring electrodes] Respiratory 14 17 Rate Blood Pressure 109/60 100/54 L [Left Brachial artery] O2 Saturation 97 99 07/21/21 07/21/21 07/21/21 04:00 05:00 05:25 Temperature 37.3 C Heart Rate 73 Heart Rate [ 77 75 Monitoring electrodes] Respiratory 14 15 Rate Blood Pressure 109/47 L 103/48 L [Left Brachial artery] O2 Saturation 96 98 07/21/21 07/21/21 07/21/21 06:00 07:00 07:05 Temperature 37.2 C 37.4 C Heart Rate 80 Heart Rate [ 72 78 Monitoring electrodes] Respiratory 14 15 Rate Blood Pressure 99/54 L 119/56 L [Left Brachial artery] O2 Saturation 99 93 Oxygen O2 Source Mechanical ventilator I&O (Last 24 Hrs): Intake and Output Totals x24h 07/19/21 07/20/21 07/21/21 23:59 23:59 23:59 Intake Total 3958.306 4873.307 2104.920 Output Total 2678 3453 1415 Balance 2590.463 0396.307 689.920 General: Other (Intubated, sedated, restless, diaphoretic) HEENT: PERRLA, EOMI Neck: Supple Neuro: Other (Sedated and intubated) Cardiovascular: Regular rate, Normal S1, Normal S2 Respiratory: Chest non-tender, No respiratory distress, Rhonchi (bilaterally) Abdomen: Normal bowel sounds, Soft Extremities: Other (Anasarca) Skin: No rashes, No breakdown, No significant lesion - Results Results: Laboratory Results WBC 3.9 x10^3/uL (4.8-10.8) L 07/21/21 04:20 RBC 2.73 10^6/uL (4.20-5.40) L 07/21/21 04:20 Hgb 8.2 g/dL (12.0-16.0) L 07/21/21 04:20 Hct 26.3 % (37.0-47.0) L 07/21/21 04:20 MCV 96.3 fL (81.0-99.0) 07/21/21 04:20 MCH 30.0 pg (27.0-31.0) 07/21/21 04:20 MCHC 31.2 g/dL (32.0-36.0) L 07/21/21 04:20 RDW 20.7 % (12.0-15.0) H 07/21/21 04:20 Plt Count 110 10^3/uL (130-450) L 07/21/21 04:20 MPV 12.5 fL (7.9-10.8) H 07/21/21 04:20 Neut # (Auto) Not Reportable 07/21/21 04:20 Lymph # (Auto) Not Reportable 07/21/21 04:20 [place] # (Auto) Not Reportable 07/21/21 04:20 Eos # (Auto) Not Reportable 07/21/21 04:20 Baso # (Auto) Not Reportable 07/21/21 04:20 Absolute Nucleated RBC Not Reportable 07/21/21 04:20 Total Counted 100 07/21/21 04:20 Band Neuts % (Manual) 26 % (0-10) H 07/21/21 04:20 Abnorm Lymph % (Manual) 1 % 07/21/21 04:20 Metamyelocytes % 1 % (-0) H 07/19/21 05:50 Myelocytes % 2 % (-0) H 07/21/21 04:20 Nucleated RBC % Not Reportable 07/21/21 04:20 Neutrophils # (Manual) 3.0 10^3/uL (1.5-6.6) 07/21/21 04:20 Lymphocytes # (Manual) 0.7 10^3/uL (1.5-3.5) L 07/21/21 04:20 Monocytes # (Manual) 0.2 10^3/uL (0.0-1.0) 07/21/21 04:20 Eosinophils # (Manual) 0.0 10^3/uL (0-0.7) 07/21/21 04:20 Basophils # (Manual) 0.0 10^3/uL (0-0.1) 07/21/21 04:20 Differential Comment MANUAL DIFFERENTIAL 07/21/21 04:20 Manual Slide Review Indicated 07/18/21 06:20 WBC Morphology NORMAL APPEARANCE (NORMAL) 07/21/21 04:20 Platelet Estimate DECREASED (<130,000) (NORMAL) 07/21/21 04:20 Platelet Morphology NORMAL APPEARANCE (NORMAL) 07/21/21 04:20 RBC Morph Micro Appear 1+ ANISOCYTOSIS (NORMAL) 07/21/21 04:20 Bld Gas Analysis Time 0808 07/20/21 08:08 Sample Site LEFT RADIAL 07/20/21 08:08 ABG pH 7.39 (7.35-7.45) 07/20/21 08:08 ABG pCO2 45 mmHg (34-45) 07/20/21 08:08 ABG pO2 62 mmHg (80-100) L 07/20/21 08:08 ABG HCO3 26.3 mmol/L (22.0-26.0) H 07/20/21 08:08 ABG Total CO2 27.7 MMOL/L (21.0-29.0) 07/20/21 08:08 ABG O2 Saturation 91 % (94-98) L 07/20/21 08:08 ABG Base Excess 1.1 mmol/L (-2.0-3.0) 07/20/21 08:08 Ruperto Test POSITIVE 07/20/21 08:08 VBG pH 7.428 (7.31-7.41) H 07/21/21 08:19 Ionized Calcium 1.05 mmol/L (1.15-1.33) L 07/21/21 08:19 Respiration Rate 12 b/min 07/20/21 08:08 O2 Delivery Device VENTILATOR 07/20/21 08:08 O2 Liters/Min 4.50 LPM 07/17/21 18:35 Vent Mode AC/VC 07/20/21 08:08 FiO2 25.00 07/20/21 08:08 Tidal Volume 420 mL 07/20/21 08:08 PEEP 5 cmH2O 07/20/21 08:08 Pressure Support Vent 12 cmH2O 07/05/21 11:00 IPAP Not Reportable 06/27/21 05:43 Sodium 133 mmol/L (135-145) L 07/21/21 04:20 Potassium 3.5 mmol/L (3.5-5.0) 07/21/21 04:20 Chloride 98 mmol/L (101-111) L 07/21/21 04:20 Carbon Dioxide 27 mmol/L (21-32) 07/21/21 04:20 Anion Gap 8.0 (6-13) 07/21/21 04:20 BUN 24 mg/dL (6-20) H 07/21/21 04:20 Creatinine 0.5 mg/dL (0.4-1.0) 07/21/21 04:20 Estimated GFR (MDRD) 119 (>89) 07/21/21 04:20 Glucose 147 mg/dL (70-100) H 07/21/21 04:20 POC Whole Bld Glucose 136 mg/dL (70 - 100) H 07/21/21 06:13 Lactic Acid 1.0 mmol/L (0.5-2.2) 07/17/21 20:14 Calcium 7.2 mg/dL (8.5-10.3) L 07/21/21 04:20 Ionized Calcium YES 07/04/21 04:43 Phosphorus 2.3 mg/dL (2.5-4.6) L 07/21/21 04:20 Magnesium 1.8 mg/dL (1.7-2.8) 07/21/21 04:20 Iron 11 ug/dL (28-170) L 07/04/21 04:43 TIBC 115 ug/dL (250-450) L 07/04/21 04:43 % Saturation 10 % (20-50) L 07/04/21 04:43 Transferrin 82 mg/dL (192-382) L 07/04/21 04:43 Total Bilirubin 0.2 mg/dL (0.2-1.0) 07/19/21 05:50 Direct Bilirubin 0.2 mg/dL (0.1-0.5) 07/19/21 05:50 AST 96 IU/L (10-42) H 07/19/21 05:50 ALT 54 IU/L (10-60) 07/19/21 05:50 Alkaline Phosphatase 137 IU/L (42-121) H 07/19/21 05:50 Troponin I High Sens 121.5 ng/L (2.3-14.8) H* 07/18/21 06:51 C-Reactive Protein 7.1 mg/dL (0-1.0) H 07/04/21 04:43 B-Natriuretic Peptide 919 pg/mL (5-100) H 07/03/21 07:30 Total Protein 4.6 g/dL (6.7-8.2) L 07/19/21 05:50 Albumin 1.7 g/dL (3.2-5.5) L 07/19/21 05:50 Globulin 2.9 g/dL (2.1-4.2) 07/19/21 05:50 Albumin/Globulin Ratio 0.6 (1.0-2.2) L 07/17/21 07:50 Prealbumin 13 mg/dL (18-45) L 07/17/21 07:50 Triglycerides 69 mg/dL (-149) 07/19/21 05:50 Cholesterol 78 mg/dL (-199) 07/19/21 05:50 LDL Cholesterol, Calc 45 mg/dL (-129) 07/19/21 05:50 VLDL Cholesterol 14 mg/dL 07/19/21 05:50 HDL Cholesterol 19 mg/dL (60-) L 07/19/21 05:50 LDL/HDL Ratio 2.4 (<4.4) 07/19/21 05:50 Cholesterol/HDL Ratio 4.1 (<4.4) 07/19/21 05:50 Lipase 42 U/L (22-51) 06/26/21 14:26 TSH 3.29 uIU/mL (0.34-5.60) 07/02/21 04:42 Free T4 0.97 ng/dL (0.58-1.64) 07/02/21 04:42 Cortisol AM Sample 6.1 ug/dL 07/05/21 05:31 Urine Color YELLOW 06/26/21 22:51 Urine Clarity CLEAR (CLEAR) 06/26/21 22:51 Urine pH 5.0 PH (5.0-7.5) 06/26/21 22:51 Ur Specific Coral 1.015 (1.002-1.030) 06/26/21 22:51 Urine Protein NEGATIVE mg/dL (NEGATIVE) 06/26/21 22:51 Urine Glucose (UA) NEGATIVE mg/dL (NEGATIVE) 06/26/21 22:51 Urine Ketones NEGATIVE mg/dL (NEGATIVE) 06/26/21 22:51 Urine Occult Blood NEGATIVE (NEGATIVE) 06/26/21 22:51 Urine Nitrite NEGATIVE (NEGATIVE) 06/26/21 22:51 Urine Bilirubin NEGATIVE (NEGATIVE) 06/26/21 22:51 Urine Urobilinogen 0.2 (NORMAL) E.U./dL (NORMAL) 06/26/21 22:51 Ur Leukocyte Esterase TRACE (NEGATIVE) H 06/26/21 22:51 Urine RBC 0-5 /HPF (0-5) 06/26/21 22:51 Urine WBC 4-5 /HPF (0-5) 06/26/21 22:51 Ur Squamous Epith Cells FEW Squamous (<= Few) 06/26/21 22:51 Urine Bacteria Few /HPF (None Seen) 06/26/21 22:51 Urine Casts 3-5 Hyaline Casts /LPF 06/26/21 22:51 Ur Microscopic Review INDICATED 06/26/21 22:51 Urine Culture Comments INDICATED 06/26/21 22:51 Nasal Adenovirus (PCR) NOT DETECTED 07/14/21 16:00 Nasal B. parapertussis DNA (PCR) NOT DETECTED 07/14/21 16:00 Nasal Coronavir 229E PCR NOT DETECTED 07/14/21 16:00 Nasal Coronavir HKU1 PCR NOT DETECTED 07/14/21 16:00 Nasal Coronavir NL63 PCR NOT DETECTED 07/14/21 16:00 Nasal Coronavir OC43 PCR NOT DETECTED 07/14/21 16:00 Nasal Enterovir/Rhinovir PCR NOT DETECTED 07/14/21 16:00 Nasal Influenza B PCR NOT DETECTED 07/14/21 16:00 Nasal Influenza A PCR NOT DETECTED 07/14/21 16:00 Nasal Parainfluen 1 PCR NOT DETECTED 07/14/21 16:00 Nasal Parainfluen 2 PCR NOT DETECTED 07/14/21 16:00 Nasal Parainfluen 3 PCR NOT DETECTED 07/14/21 16:00 Nasal Parainfluen 4 PCR NOT DETECTED 07/14/21 16:00 Nasal RSV (PCR) NOT DETECTED 07/14/21 16:00 Nasal Screen MRSA (PCR) NEGATIVE (NEGATIVE) 06/26/21 21:55 Nasal B.pertussis DNA PCR NOT DETECTED 07/14/21 16:00 Nasal C.pneumoniae (PCR) NOT DETECTED 07/14/21 16:00 Mk Human Metapneumo PCR NOT DETECTED 07/14/21 16:00 Nasal M.pneumoniae (PCR) NOT DETECTED 07/14/21 16:00 Nasal SARS-CoV-2 (PCR) NOT DETECTED 07/14/21 16:00 Last Dose Date 07/19/2021 07/19/21 05:50 Last Dose Time 0100 07/19/21 05:50 Vancomycin Trough 16.8 ug/mL (10.0-20.0) 07/15/21 15:30 Digoxin 1.4 ng/mL 07/19/21 05:50 - Procedures Procedures: Procedures RESPIRATORY VENTILATION, LESS THAN 24 CONSECUTIVE HOURS (01/11/20) Sepsis Event Note (H) - Evaluation Current Stage of Sepsis: Septic shock Possible source of Sepsis: positive: GI tract/intra-abdominal - Sepsis Criteria Sepsis Criteria: WBC count greater than 10% bands, SBP drop more than 40mHg, MAP less than 65 mmHg, SBP less than 90 mmHg, Renal: urine output less than 0.5ml/kg/hr for 2 hours or creatinine gr, Metabolic: lactate > 2 mmol/L ABX Reporting Has patient been on IV antibiotics over the past 48 hours?: Yes
[2021-07-21] MEDS: ACETAMINOPHEN 325 MG TABLET PO PRN (10:00)
[2021-07-21] MEDS: levoFLOXacin 750 MG/150 ML 750 MG/150 ML BAG IV SCH (10:15)
[2021-07-21] MEDS: FLUCONAZOLE 200 MG/100 ML 100 ML IV SCH (13:15)
[2021-07-22] MEDS: DEXMEDETOMIDINE 400 MCG/100 ML 100 ML IV SCH ×2 (00:43→07:16)
[2021-07-22] MEDS: metroNIDAZOLE 500 MG/100 ML 500 MG/100 ML BAG IV SCH ×3 (04:26→19:44)
[2021-07-22 05:04] LABS: BASOPHILS % (AUTO) 0.4 %; EOSINOPHILS % (AUTO) 0.6 %; HCT - HEMATOCRIT 28.6 % (37.0-47.0); LYMPHOCYTES % (AUTO) 37.8 %; MEAN CORPUSCULAR HEMOGLOBIN 29.6 pg (27.0-31.0); MEAN CORPUSCULAR HGB CONC 31.5 g/dL (32.0-36.0); MEAN CORPUSCULAR VOLUME 94.1 fL (81.0-99.0); MEAN PLATELET VOLUME 12.4 fL (7.9-10.8); NEUTROPHILS % (AUTO) 51.3 %; PLT - PLATELET COUNT 102 10^3/uL (130-450); RED BLOOD COUNT 3.04 10^6/uL (4.20-5.40); RED CELL DISTRIBUTION WIDTH 20.6 % (12.0-15.0); WHITE BLOOD COUNT 4.6 x10^3/uL (4.8-10.8)
[2021-07-22 05:06] LABS: ABNORMAL LYMPHS % (MANUAL) 0 %
[2021-07-22] MEDS: SODIUM CHLORIDE FLUSH 0.9% 10 ML SYRINGE IVP PRN ×2 (05:22)
[2021-07-22] MEDS: fentaNYL 2,500 MCG/250 ML 2,500 MCG/250 ML BAG IV SCH ×4 (05:22→20:23)
[2021-07-22 05:23] LABS: BAND NEUTROPHILS % (MANUAL) 18 %; LYMPHOCYTES # (MANUAL) 1.3 10^3/uL (1.5-3.5); LYMPHOCYTES % (MANUAL) 28 %; METAMYELOCYTES % (MANUAL) 1 %; MONOCYTES # (MANUAL) 0.3 10^3/uL (0.0-1.0); MYELOCYTES % (MANUAL) 1 %; NEUTROPHILS # (MANUAL) 2.9 10^3/uL (1.5-6.6); PLATELET ESTIMATE, MANUAL DECREASED (<130,000) (NORMAL); PLATELET MORPHOLOGY NORMAL APPEARANCE (NORMAL); RBC MORPHOLOGY (MULTIPLE) 1+ ANISOCYTOSIS (NORMAL)
[2021-07-22 05:24] LABS: DIFFERENTIAL COMMENT MANUAL DIFFERENTIAL; WBC MORPHOLOGY (MULTIPLE) NORMAL APPEARANCE (NORMAL)
[2021-07-22] MEDS: LEVOTHYROXINE 100 MCG VIAL IVP SCH (06:14)
[2021-07-22] MEDS: PANTOPRAZOLE 40 MG VIAL IVP SCH (06:14)
[2021-07-22] MEDS: FUROSEMIDE 40 MG/4 ML VIAL IVP SCH ×2 (06:14→14:12)
[2021-07-22 07:06] LABS: MAGNESIUM 1.6 mg/dL (1.7-2.8); PHOSPHORUS 2.4 mg/dL (2.5-4.6); POTASSIUM 3.3 mmol/L (3.5-5.0)
[2021-07-22] MEDS ORDERED: MAGNESIUM SULFATE 2 GRAM 2 GM/50 ML BAG IV ONE (07:10)
--- NOTE | 2021-07-22 07:46 | PROVIDER PROGRESS NOTE ---
Assessment/Plan - Problem List (1) Acute respiratory failure requiring reintubation Assessment/Plan: 07/22/21 No significant change in patient's clinical status This is day #5 of the third intubation. Overall patient has been intubated for over 21 days. Continue sedation with fentanyl and precedex We will continue to attempt to transfer patient to another facility for higher level of care. Attempts to date have been unsuccessful. The patient's caregiver (Henny) was at bedside at time of exam. I again summarized the overall picture highlighting that there was no progress/improvement in patient's overall clinical condition. I attempted to highlight patient's poor prognosis. It has been a difficult balance continuing nutrition with high intravenous volumes versus managing patient's anasarca even while keeping intravascular pressures adequate. I shared my opinion that the patient's quality of life was currently poor. A point Henny disagrees with, countering that as long as there is life, that is value for which we should continue care. She took my input under advisement but made no change to current plan of care which includes continung antimicrobial, pressors, vent support and also involves transferring patient. 07/21/21 No significant change in patient's clinical status This is day #4 of the third intubation. Overall patient has been intubated for over 21 days. Continue sedation with fentanyl and precedex We will continue to attempt to transfer patient to another facility for higher level of care. Attempts to date have been unsuccessful. 07/20/21 No significant change in patient's clinical status This is day #3 of the third intubation. Overall patient has been intubated for over 21 days. Continue sedation with fentanyl and precedex. ABG done today showed pH 7.39 PCO2 45 PO2 62 Bicarbonate 26.3. We will continue to attempt to transfer patient to another facility for higher level of care. 07/19/21 This is day #2 of the third intubation. Overall patient has been intubated for over 21 days. Continue sedation with fentanyl. ABG done today showed pH 7.46 PCO2 39 PO2 211 aBicarbonate 27. This was on an FiO2 of 30, AC VC mode, tidal volume 450, Respiratory rate 12,PEEP 5, We will continue to attempt to transfer patient to another facility for higher level of care. 07/18/21 Patient was extubated around 9 AM on 07/17/2021. This was the 7 days since re-intubation. She seemed to be maintaining/protecting her airway through the course of the morning into the afternoon. In the course of being cleaned/changed mid-afternoon, she vomited a significant amount of tube feed, By 6 PM on 07/17/2021ppeared less responsive. She was also very diaphoretic and appeared to be in respiratory distress. While she had only required 2 L of oxygen via nasal cannula to keep her oxygen saturation in the high 90s during the day, her oxygen requirement increased significantly. An ABG was done which showed 1.15, PCO2 79, PO2 69. Chest x-ray Around 7 PM on 07/17/2021 showed bibasilar airspace opacities suspicious for aspiration versus pneumonia. Cephalization of pulmonary vasculature and perihilar opacities compatible with pulmonary edema The patient's caregiver Henny was at bedside and wished for re-intubation. Her sister Katie Massey (DPOA) has given approval for Henny's input into the patient's medical decision As a result the patient was re-intubated. Based on previous conversations and discussion around the time of this reintubation the indication would be for a trach and PEG. On 07/18/2021 I further discussed with Henny regarding the patient's quality of life with placement of a trach and PEG considering that she will be vent dependent indefinitely and also be at risk of aspirations. I mentioned consideration for palliative or hospice care. Henny and Katie Massey wish to proceed with a trach and PEG. I have reached out to [facility] in [place], [facility] in [place] and [facility] in [place] however these hospitals are currently at capacity. The placed her name on the list and will contact me once there is an availability. Yesterday after intubation the patient was sedated with propofol. This was changed to fentanyl and Precedex today 07/18/2021 to permit continuation of patient's TPN. ABG at 9 AM today showed pH 7.46, PCO2 37, PO2 101 and bicarb 25.4. The patient was on an FiO2 of 35%, assist control mode, tidal volume 420 PEEP 5. FiO2 was decreased to 30 and respiratory rate was decreased from 18 to 16 She is on norepinephrine. Patient was placed on Flagyl due to aspiration. She remains afebrile. White blood cell count is normal at 6.2 (2) On mechanically assisted ventilation Assessment/Plan: No significant change in patient's clinical status This is day #5 of the third intubation. Overall patient has been intubated for over 21 days. Continue sedation with fentanyl. We will continue to attempt to transfer patient to another facility for higher level of care. (3) Aspiration pneumonia Assessment/Plan: Patient had a temperature of 38.2 C. Her white blood cell count was 4.3. Continue Levaquin 750 mg IV daily and Flagyl 500 mg IV 3 times daily 2 blood cultures grew yeast. The patient was started on Diflucan 200 mg IV daily on 07/21/21. Continue levophed drip (4) Septic shock Assessment/Plan: Secondary to aspiration pneumonia. Patient is currently on Levaquin and Flagyl IV. 2 blood cultures grew yeast. The patient was started on Diflucan 200 mg IV daily on 07/21/21. Patient is on norepinephrine drip. (5) Ileus following gastrointestinal surgery Assessment/Plan: NG tube draining bilious looking secretions. On Reglan 5 mg IV every 6 hours as needed. No bowel movement in 3 days. (6) Anasarca Assessment/Plan: Improvement in swelling (especially in upper extremities) On Lasix 60 mg IV twice daily. TPN held 07/21/2021 due to extensive anasarca (7) Chronic diastolic heart failure Assessment/Plan: Echo December 2019 had ejection fraction of 65 to 70%. Mild tricuspid regurg itation. RVSP was 43 mmHg. Echo January 2020 had ejection fraction of 55 to 60%. Echocardiogram done June 27, 2021 has an ejection fraction of 40 to 45% and her systolic function is globally impaired. Right ventricular pacing evident. Was placed in September 2020? Mild to moderate right ventricular enlargement. Moderate to severe mitral regurgitation. Moderate LAE, severe ORI. On Lasix 60mg IV bid (8) Perforated duodenal ulcer Assessment/Plan: Postop day #27. Status post ex lap with repair of posterior duodenal ulcer General surgery following. No bowel movement in 3 days. Increased billous appearing secretions Tube feed discontinue later in the day on 07/17/21 due to aspiration. It had been initiated earlier on 07/17/21 at 25ml/hr TPN held 07/21/2021 Due to extensive anasarca (9) Hypothyroidism Assessment/Plan: On Synthroid 130 mcg IV Mondays and . (10) History of atrial fibrillation Assessment/Plan: Rate controlled. Not on any medication. (11) History of pulmonary embolism Assessment/Plan: On Lovenox 40 mg subcu daily for DVT prophylaxis. (12) Schizophrenia Assessment/Plan: Seroquel discontinued while patient is receiving Reglan for ileus. (13) Iron deficiency anemia Assessment/Plan: We will continue to monitor hemoglobin. - Current Meds Current Meds: Current Medications Generic Name Dose Route Start Last Admin Trade Name Freq PRN Reason Stop Dose Admin Acetaminophen 650 mg 07/17/21 11:05 07/21/21 10:00 Acetaminophen 325 Mg Tablet PO 650 mg Q6HR PRN Administration Pain or Fever > 38C (100.4F) Bisacodyl 10 mg 07/14/21 09:00 07/21/21 08:19 Bisacodyl 10 Mg Supp AL 10 mg DAILY JULIETA Administration Chlorhexidine Gluconate 15 ml 06/27/21 21:00 07/21/21 21:07 Chlorhexidine Gluconate 15 Ml Udc PO 15 ml BID JULIETA Administration Enoxaparin Sodium 40 mg 06/28/21 09:00 07/21/21 08:30 Enoxaparin 40 Mg/0.4 Ml Syringe SUBQ 40 mg DAILY JULIETA Administration Furosemide 60 mg 07/20/21 15:00 07/22/21 06:14 Furosemide 40 Mg/4 Ml Vial IVP 60 mg BIDDIURETIC JULIETA Administration Glycopyrrolate 0.2 mg 06/28/21 21:17 07/18/21 20:40 Glycopyrrolate 1 Mg/5 Ml Vial SUBQ 0.2 mg Q6H PRN Administration Excessive Secretions Hydromorphone HCl 1 mg 07/18/21 09:27 07/21/21 08:16 Hydromorphone 1 Mg/Ml Carpuject IVP 1 mg Q2H PRN Administration PAIN Sodium Chloride 500 mls @ 20 mls/hr 06/26/21 23:03 07/21/21 18:00 Normal Saline 0.9% IV 20 mls/hr Q24H PRN Infusion TKO RATE Multivitamins 10 ml/ TRACE 2,011 mls @ 75 mls/hr 06/27/21 19:00 07/21/21 11:20 ELEMENTS 1 ml/ Amino Ac/ IV 0 mls/hr Electrol/Dextrose/Calcium Q24H JULIETA Infusion Protocol Norepinephrine Bitartrate 8 mg 250 mls @ 15 mls/hr 07/10/21 12:00 07/22/21 05:26 / Dextrose IV 12 mcg/min .[id number] JULIETA 22.5 mls/hr Administration Protocol 8 MCG/MIN Metronidazole 500 mg in 100 mls @ 100 mls/hr 07/17/21 20:00 07/22/21 05:26 Flagyl 500 Mg/100 Ml IV Infused Q8H JULIETA Infusion Fentanyl 2,500 mcg in 250 mls @ 8.65 mls/hr 07/18/21 12:30 07/22/21 05:22 Fentanyl IV 6 mcg/kg/hr .[id number] JULIETA 51.9 mls/hr Administration Protocol 1 MCG/KG/HR Levofloxacin 750 mg in 150 mls @ 100 mls/hr 07/19/21 10:00 07/21/21 11:45 Levaquin 750 Mg/150 Ml IV Infused Q24H JULIETA Infusion Dexmedetomidine/Sodium Chloride 100 mls @ 4.35 mls/hr 07/19/21 17:00 07/22/21 07:16 Precedex Premix IV 0.8 mcg/kg/hr .Q23H JULIETA 17.4 mls/hr Administration Protocol 0.2 MCG/KG/HR Fluconazole 100 mls @ 66.667 mls/hr 07/21/21 13:00 07/21/21 14:45 Diflucan 200 Mg/100 Ml IV Infused DAILY JULIETA Infusion Levothyroxine Sodium 130 mcg 07/12/21 12:00 07/22/21 06:14 Levothyroxine 100 Mcg Vial IVP 130 mcg MoTh@0700 JULIETA Administration Mineral Oil 1 applic 07/01/21 01:24 07/06/21 20:24 Min Oil/Dimethicon/Coconut Oil 92 Gm Tube TOP 1 ea PRN PRN Administration Skin Care Pantoprazole Sodium 40 mg 06/27/21 07:00 07/22/21 06:14 Pantoprazole 40 Mg Vial IVP 40 mg QDAC JULIETA Administration Phenol/Menthol 2 sprays 07/05/21 21:24 07/07/21 11:03 Phenol Throat [place] 177 Ml MM 2 sprays Q2HR PRN Administration Throat Pain Scopolamine HBr 1 patch 07/20/21 19:00 07/20/21 19:00 Scopolamine Patch TOP 1 patch Q3D JULIETA Administration Sodium Chloride 10 ml 06/27/21 01:00 07/21/21 23:52 Sodium Chloride Flush 0.9% 10 Ml Syringe IVP 10 ml 0100,0900,1700 JULIETA Administration Sodium Chloride 10 ml 06/26/21 20:54 07/22/21 05:22 Sodium Chloride Flush 0.9% 10 Ml Syringe IVP 10 ml PRN PRN Administration NEEDED PER PROVIDER ORDERS Sodium Chloride 20 ml 06/26/21 23:03 07/22/21 05:22 Sodium Chloride Flush 0.9% 10 Ml Syringe IVP 20 ml PRN PRN Administration After Blood Draw - Lab Result Fish Bone Diagrams: 07/22/21 04:54 07/22/21 04:54 - Additional Planning My Orders: My Active Orders 07/21/21 13:00 Fluconazole 200 mg/100 ml [Diflucan 200 mg/100 ml] 100 ml IV DAILY 07/23/21 05:00 CBC - COMP BLD CT W/AUTO DIFF [HEME] DAILYLAB 07/24/21 05:00 CBC - COMP BLD CT W/AUTO DIFF [HEME] DAILYLAB Subjective - Subjective Patient Reports: Other (Patient is sedated and intubated thus unable to provide a history. She appeared more comfortable today. She has been afebrile for more than 24 hours. Upper extremity swelling is significantly improved) Objective Vital Signs: Vital Signs - 24 hr 07/21/21 07/21/21 07/21/21 08:00 09:00 10:00 Temperature 38.4 C H 38.1 C H Heart Rate 93 Heart Rate [ 90 75 70 Monitoring electrodes] Respiratory 18 12 13 Rate Blood Pressure 91/44 L 107/49 L 107/47 L [Left Brachial artery] O2 Saturation 93 96 96 07/21/21 07/21/21 07/21/21 10:57 11:06 11:41 Temperature 38.1 C H Heart Rate 96 Heart Rate [ 88 Monitoring electrodes] Respiratory 13 Rate Blood Pressure 105/45 L [Left Brachial artery] O2 Saturation 97 07/21/21 07/21/21 07/21/21 11:59 13:00 14:00 Temperature 35 C L 36.3 C L 35.4 C L Heart Rate Heart Rate [ 87 84 83 Monitoring electrodes] Respiratory 14 14 13 Rate Blood Pressure 98/45 L 110/59 L 110/54 L [Left Brachial artery] O2 Saturation 96 97 97 07/21/21 07/21/21 07/21/21 14:33 15:00 16:00 Temperature Heart Rate 87 Heart Rate [ 81 87 Monitoring electrodes] Respiratory 14 14 Rate Blood Pressure 121/42 L 115/53 L [Left Brachial artery] O2 Saturation 97 95 07/21/21 07/21/21 07/21/21 17:00 18:00 18:17 Temperature 37.1 C Heart Rate 87 Heart Rate [ 84 79 Monitoring electrodes] Respiratory 12 19 Rate Blood Pressure 118/52 L 107/59 L [Left Brachial artery] O2 Saturation 95 96 07/21/21 07/21/21 07/21/21 19:00 19:10 19:40 Temperature 37.6 C Heart Rate 76 Heart Rate [ 80 Monitoring electrodes] Respiratory 16 Rate Blood Pressure 112/86 H [Left Brachial artery] O2 Saturation 97 07/21/21 07/21/21 07/21/21 20:00 21:00 21:35 Temperature Heart Rate 78 Heart Rate [ 78 74 Monitoring electrodes] Respiratory 15 12 Rate Blood Pressure 94/48 L 97/50 L [Left Brachial artery] O2 Saturation 96 96 07/21/21 07/21/21 07/21/21 22:00 23:00 23:15 Temperature Heart Rate 75 Heart Rate [ 76 75 Monitoring electrodes] Respiratory 14 11 L Rate Blood Pressure 99/51 L 100/58 L [Left Brachial artery] O2 Saturation 96 97 07/22/21 07/22/21 07/22/21 00:00 01:00 01:30 Temperature Heart Rate 84 Heart Rate [ 79 74 Monitoring electrodes] Respiratory 14 13 Rate Blood Pressure 99/51 L 104/44 L [Left Brachial artery] O2 Saturation 97 96 07/22/21 07/22/21 07/22/21 02:00 03:00 03:40 Temperature Heart Rate 81 Heart Rate [ 74 78 Monitoring electrodes] Respiratory 14 18 Rate Blood Pressure 100/57 L 103/54 L [Left Brachial artery] O2 Saturation 97 100 07/22/21 07/22/21 07/22/21 04:00 05:00 05:40 Temperature Heart Rate 78 Heart Rate [ 77 80 Monitoring electrodes] Respiratory 17 15 Rate Blood Pressure 100/49 L 105/50 L [Left Brachial artery] O2 Saturation 96 96 1007/22/21 07/22/21 06:00 07:00 07:14 Temperature 36.6 C Heart Rate 75 Heart Rate [ 83 79 Monitoring electrodes] Respiratory 18 15 Rate Blood Pressure 105/55 L 106/50 L [Left Brachial artery] O2 Saturation 97 95 Oxygen O2 Source Mechanical ventilator I&O (Last 24 Hrs): Intake and Output Totals x24h 07/20/21 07/21/21 07/22/21 23:59 23:59 23:59 Intake Total 4873.307 4352.887 450 Output Total 3453 3518 675 Balance 1420.307 834.887 -225 Comments/Notes: General: Other (Intubated, sedated, restless, resting comfortably) HEENT: PERRLA, EOMI Neck: Supple Neuro: Other (Sedated and intubated) Cardiovascular: Regular rate, Normal S1, Normal S2 Respiratory: Chest non-tender, No respiratory distress, Rhonchi (bilaterally) Abdomen: Normal bowel sounds, Soft Extremities: Other ([place] decreased) Skin: No rashes, No breakdown, No significant lesion - Results Results: Laboratory Results WBC 4.6 x10^3/uL (4.8-10.8) L 07/22/21 04:54 RBC 3.04 10^6/uL (4.20-5.40) L 07/22/21 04:54 Hgb 9.0 g/dL (12.0-16.0) L 07/22/21 04:54 Hct 28.6 % (37.0-47.0) L 07/22/21 04:54 MCV 94.1 fL (81.0-99.0) 07/22/21 04:54 MCH 29.6 pg (27.0-31.0) 07/22/21 04:54 MCHC 31.5 g/dL (32.0-36.0) L 07/22/21 04:54 RDW 20.6 % (12.0-15.0) H 07/22/21 04:54 Plt Count 102 10^3/uL (130-450) L 07/22/21 04:54 MPV 12.4 fL (7.9-10.8) H 07/22/21 04:54 Neut # (Auto) Not Reportable 07/22/21 04:54 Lymph # (Auto) Not Reportable 07/22/21 04:54 Christian # (Auto) Not Reportable 07/22/21 04:54 Eos # (Auto) Not Reportable 07/22/21 04:54 Baso # (Auto) Not Reportable 07/22/21 04:54 Absolute Nucleated RBC Not Reportable 07/22/21 04:54 Total Counted 100 07/22/21 04:54 Band Neuts % (Manual) 18 % (0-10) H 07/22/21 04:54 Abnorm Lymph % (Manual) 0 % 07/22/21 04:54 Metamyelocytes % 1 % (-0) H 07/22/21 04:54 Myelocytes % 1 % (-0) H 07/22/21 04:54 Nucleated RBC % Not Reportable 07/22/21 04:54 Neutrophils # (Manual) 2.9 10^3/uL (1.5-6.6) 07/22/21 04:54 Lymphocytes # (Manual) 1.3 10^3/uL (1.5-3.5) L 07/22/21 04:54 Monocytes # (Manual) 0.3 10^3/uL (0.0-1.0) 07/22/21 04:54 Eosinophils # (Manual) 0.0 10^3/uL (0-0.7) 07/22/21 04:54 Basophils # (Manual) 0.0 10^3/uL (0-0.1) 07/22/21 04:54 Differential Comment MANUAL DIFFERENTIAL 07/22/21 04:54 Manual Slide Review Indicated 07/18/21 06:20 WBC Morphology NORMAL APPEARANCE (NORMAL) 07/22/21 04:54 Platelet Estimate DECREASED (<130,000) (NORMAL) 07/22/21 04:54 Platelet Morphology NORMAL APPEARANCE (NORMAL) 07/22/21 04:54 RBC Morph Micro Appear 1+ ANISOCYTOSIS (NORMAL) 07/22/21 04:54 Bld Gas Analysis Time 0808 07/20/21 08:08 Sample Site LEFT RADIAL 07/20/21 08:08 ABG pH 7.39 (7.35-7.45) 07/20/21 08:08 ABG pCO2 45 mmHg (34-45) 07/20/21 08:08 ABG pO2 62 mmHg (80-100) L 07/20/21 08:08 ABG HCO3 26.3 mmol/L (22.0-26.0) H 07/20/21 08:08 ABG Total CO2 27.7 MMOL/L (21.0-29.0) 07/20/21 08:08 ABG O2 Saturation 91 % (94-98) L 07/20/21 08:08 ABG Base Excess 1.1 mmol/L (-2.0-3.0) 07/20/21 08:08 Ruperto Test POSITIVE 07/20/21 08:08 VBG pH 7.428 (7.31-7.41) H 07/21/21 08:19 Ionized Calcium 1.05 mmol/L (1.15-1.33) L 07/21/21 08:19 Respiration Rate 12 b/min 07/20/21 08:08 O2 Delivery Device VENTILATOR 07/20/21 08:08 O2 Liters/Min 4.50 LPM 07/17/21 18:35 Vent Mode AC/VC 07/20/21 08:08 FiO2 25.00 07/20/21 08:08 Tidal Volume 420 mL 07/20/21 08:08 PEEP 5 cmH2O 07/20/21 08:08 Pressure Support Vent 12 cmH2O 07/05/21 11:00 IPAP Not Reportable 06/27/21 05:43 Sodium 133 mmol/L (135-145) L 07/21/21 04:20 Potassium 3.3 mmol/L (3.5-5.0) L 07/22/21 04:54 Chloride 98 mmol/L (101-111) L 07/21/21 04:20 Carbon Dioxide 27 mmol/L (21-32) 07/21/21 04:20 Anion Gap 8.0 (6-13) 07/21/21 04:20 BUN 24 mg/dL (6-20) H 07/21/21 04:20 Creatinine 0.5 mg/dL (0.4-1.0) 07/21/21 04:20 Estimated GFR (MDRD) 119 (>89) 07/21/21 04:20 Glucose 147 mg/dL (70-100) H 07/21/21 04:20 POC Whole Bld Glucose 86 mg/dL (70 - 100) 07/22/21 06:12 Lactic Acid 1.0 mmol/L (0.5-2.2) 07/21/21 12:54 Calcium 7.2 mg/dL (8.5-10.3) L 07/21/21 04:20 Ionized Calcium YES 07/04/21 04:43 Phosphorus 2.4 mg/dL (2.5-4.6) L 07/22/21 04:54 Magnesium 1.6 mg/dL (1.7-2.8) L 07/22/21 04:54 Iron 11 ug/dL (28-170) L 07/04/21 04:43 TIBC 115 ug/dL (250-450) L 07/04/21 04:43 % Saturation 10 % (20-50) L 07/04/21 04:43 Transferrin 82 mg/dL (192-382) L 07/04/21 04:43 Total Bilirubin 0.2 mg/dL (0.2-1.0) 07/19/21 05:50 Direct Bilirubin 0.2 mg/dL (0.1-0.5) 07/19/21 05:50 AST 96 IU/L (10-42) H 07/19/21 05:50 ALT 54 IU/L (10-60) 07/19/21 05:50 Alkaline Phosphatase 137 IU/L (42-121) H 07/19/21 05:50 Troponin I High Sens 121.5 ng/L (2.3-14.8) H* 07/18/21 06:51 C-Reactive Protein 7.1 mg/dL (0-1.0) H 07/04/21 04:43 B-Natriuretic Peptide 919 pg/mL (5-100) H 07/03/21 07:30 Total Protein 4.6 g/dL (6.7-8.2) L 07/19/21 05:50 Albumin 1.7 g/dL (3.2-5.5) L 07/19/21 05:50 Globulin 2.9 g/dL (2.1-4.2) 07/19/21 05:50 Albumin/Globulin Ratio 0.6 (1.0-2.2) L 07/17/21 07:50 Prealbumin 13 mg/dL (18-45) L 07/17/21 07:50 Triglycerides 69 mg/dL (-149) 07/19/21 05:50 Cholesterol 78 mg/dL (-199) 07/19/21 05:50 LDL Cholesterol, Calc 45 mg/dL (-129) 07/19/21 05:50 VLDL Cholesterol 14 mg/dL 07/19/21 05:50 HDL Cholesterol 19 mg/dL (60-) L 07/19/21 05:50 LDL/HDL Ratio 2.4 (<4.4) 07/19/21 05:50 Cholesterol/HDL Ratio 4.1 (<4.4) 07/19/21 05:50 Lipase 42 U/L (22-51) 06/26/21 14:26 TSH 3.29 uIU/mL (0.34-5.60) 07/02/21 04:42 Free T4 0.97 ng/dL (0.58-1.64) 07/02/21 04:42 Cortisol AM Sample 6.1 ug/dL 07/05/21 05:31 Urine Color YELLOW 06/26/21 22:51 Urine Clarity CLEAR (CLEAR) 06/26/21 22:51 Urine pH 5.0 PH (5.0-7.5) 06/26/21 22:51 Ur Specific [place] 1.015 (1.002-1.030) 06/26/21 22:51 Urine Protein NEGATIVE mg/dL (NEGATIVE) 06/26/21 22:51 Urine Glucose (UA) NEGATIVE mg/dL (NEGATIVE) 06/26/21 22:51 Urine Ketones NEGATIVE mg/dL (NEGATIVE) 06/26/21 22:51 Urine Occult Blood NEGATIVE (NEGATIVE) 06/26/21 22:51 Urine Nitrite NEGATIVE (NEGATIVE) 06/26/21 22:51 Urine Bilirubin NEGATIVE (NEGATIVE) 06/26/21 22:51 Urine Urobilinogen 0.2 (NORMAL) E.U./dL (NORMAL) 06/26/21 22:51 Ur Leukocyte Esterase TRACE (NEGATIVE) H 06/26/21 22:51 Urine RBC 0-5 /HPF (0-5) 06/26/21 22:51 Urine WBC 4-5 /HPF (0-5) 06/26/21 22:51 Ur Squamous Epith Cells FEW Squamous (<= Few) 06/26/21 22:51 Urine Bacteria Few /HPF (None Seen) 06/26/21 22:51 Urine Casts 3-5 Hyaline Casts /LPF 06/26/21 22:51 Ur Microscopic Review INDICATED 06/26/21 22:51 Urine Culture Comments INDICATED 06/26/21 22:51 Nasal Adenovirus (PCR) NOT DETECTED 07/14/21 16:00 Nasal B. parapertussis DNA (PCR) NOT DETECTED 07/14/21 16:00 Nasal Coronavir 229E PCR NOT DETECTED 07/14/21 16:00 Nasal Coronavir HKU1 PCR NOT DETECTED 07/14/21 16:00 Nasal Coronavir NL63 PCR NOT DETECTED 07/14/21 16:00 Nasal Coronavir OC43 PCR NOT DETECTED 07/14/21 16:00 Nasal Enterovir/Rhinovir PCR NOT DETECTED 07/14/21 16:00 Nasal Influenza B PCR NOT DETECTED 07/14/21 16:00 Nasal Influenza A PCR NOT DETECTED 07/14/21 16:00 Nasal Parainfluen 1 PCR NOT DETECTED 07/14/21 16:00 Nasal Parainfluen 2 PCR NOT DETECTED 07/14/21 16:00 Nasal Parainfluen 3 PCR NOT DETECTED 07/14/21 16:00 Nasal Parainfluen 4 PCR NOT DETECTED 07/14/21 16:00 Nasal RSV (PCR) NOT DETECTED 07/14/21 16:00 Nasal Screen MRSA (PCR) NEGATIVE (NEGATIVE) 06/26/21 21:55 Nasal B.pertussis DNA PCR NOT DETECTED 07/14/21 16:00 Nasal C.pneumoniae (PCR) NOT DETECTED 07/14/21 16:00 Mk Human Metapneumo PCR NOT DETECTED 07/14/21 16:00 Nasal M.pneumoniae (PCR) NOT DETECTED 07/14/21 16:00 Nasal SARS-CoV-2 (PCR) NOT DETECTED 07/14/21 16:00 Last Dose Date 07/19/2021 07/19/21 05:50 Last Dose Time 0100 07/19/21 05:50 Vancomycin Trough 16.8 ug/mL (10.0-20.0) 07/15/21 15:30 Digoxin 1.4 ng/mL 07/19/21 05:50 - Procedures Procedures: Procedures RESPIRATORY VENTILATION, LESS THAN 24 CONSECUTIVE HOURS (01/11/20) Sepsis Event Note (H) - Evaluation Current Stage of Sepsis: Septic shock Possible source of Sepsis: positive: GI tract/intra-abdominal - Sepsis Criteria Sepsis Criteria: WBC count greater than 10% bands, SBP drop more than 40mHg, MAP less than 65 mmHg, SBP less than 90 mmHg, Renal: urine output less than 0.5ml/kg/hr for 2 hours or creatinine gr, Metabolic: lactate > 2 mmol/L ABX Reporting Has patient been on IV antibiotics over the past 48 hours?: Yes
[2021-07-22 07:58] LABS: VBG PH 7.477 (7.31-7.41)
[2021-07-22] MEDS ORDERED: POTASSIUM PHOSPHATE 15 MMOL in SODIUM CHLORIDE 0.9% 250 ML IV ONE (09:00)
[2021-07-22 09:42] LABS: CALCIUM 7.2 mg/dL (8.5-10.3); CREATININE 0.6 mg/dL (0.4-1.0); POTASSIUM 3.3 mmol/L (3.5-5.0)
[2021-07-22] MEDS: FLUCONAZOLE 200 MG/100 ML 100 ML IV SCH (09:48)
[2021-07-22] MEDS: CHLORHEXIDINE GLUCONATE 15 ML UDC PO SCH ×2 (09:50→19:51)
[2021-07-22] MEDS: BISACODYL 10 MG SUPP PR SCH (09:50)
[2021-07-22] MEDS: ENOXAPARIN 40 MG/0.4 ML SYRINGE SUBQ SCH (10:40)
[2021-07-22] MEDS: SODIUM CHLORIDE FLUSH 0.9% 10 ML SYRINGE IVP SCH ×2 (10:42→14:12)
[2021-07-22] MEDS: levoFLOXacin 750 MG/150 ML 750 MG/150 ML BAG IV SCH (10:55)
[2021-07-22] MEDS: POTASSIUM CHLOR 10 MEQ/100 ML 10 MEQ/100 ML BAG IV SCH ×2 (12:00→13:06)
[2021-07-22] MEDS: DEXMEDETOMIDINE 1,000 MCG in SODIUM CHLORIDE 0.9% 240 ML IV PRN (13:05)
[2021-07-22] MEDS: POTASSIUM CHLOR 20 MEQ/100 ML 20 MEQ/100 ML BAG IV SCH ×2 (22:05→23:09)
[2021-07-22] MEDS: HYDROmorphone 1 MG/ML CARPUJECT IVP PRN (23:27)
[2021-07-23] MEDS: DEXMEDETOMIDINE 1,000 MCG in SODIUM CHLORIDE 0.9% 240 ML IV PRN ×3 (00:17→23:29)
[2021-07-23] MEDS: SODIUM CHLORIDE FLUSH 0.9% 10 ML SYRINGE IVP SCH ×3 (00:30→18:16)
[2021-07-23] MEDS: fentaNYL 2,500 MCG/250 ML 2,500 MCG/250 ML BAG IV SCH ×6 (01:03→23:28)
[2021-07-23] MEDS: HYDROmorphone 1 MG/ML CARPUJECT IVP PRN ×3 (01:22→19:51)
[2021-07-23] MEDS ORDERED: POTASSIUM CHLOR 20 MEQ/100 ML 20 MEQ/100 ML BAG IV ONE ×2 (01:32→06:17)
[2021-07-23] MEDS: metroNIDAZOLE 500 MG/100 ML 500 MG/100 ML BAG IV SCH ×3 (03:48→20:08)
[2021-07-23 05:41] LABS: CALCIUM, IONIZED 0.96 mmol/L (1.15-1.33); VBG PH 7.481 (7.31-7.41)
[2021-07-23 05:43] LABS: BASOPHILS % (AUTO) 0.5 %; HCT - HEMATOCRIT 30.9 % (37.0-47.0); HGB - HEMOGLOBIN 9.9 g/dL (12.0-16.0); LYMPHOCYTES % (AUTO) 44.3 %; MEAN CORPUSCULAR HEMOGLOBIN 29.3 pg (27.0-31.0); MEAN CORPUSCULAR VOLUME 91.4 fL (81.0-99.0); MEAN PLATELET VOLUME 12.2 fL (7.9-10.8); MONOCYTES % (AUTO) 7.8 %; NEUTROPHILS % (AUTO) 43.9 %; PLT - PLATELET COUNT 119 10^3/uL (130-450); RED BLOOD COUNT 3.38 10^6/uL (4.20-5.40); RED CELL DISTRIBUTION WIDTH 20.6 % (12.0-15.0); WHITE BLOOD COUNT 6.1 x10^3/uL (4.8-10.8)
[2021-07-23] MEDS: FUROSEMIDE 40 MG/4 ML VIAL IVP SCH ×2 (05:43→13:46)
[2021-07-23 05:58] LABS: CALCIUM 7.2 mg/dL (8.5-10.3); CREATININE 0.6 mg/dL (0.4-1.0); POTASSIUM 3.8 mmol/L (3.5-5.0)
[2021-07-23] MEDS: PANTOPRAZOLE 40 MG VIAL IVP SCH (06:07)
[2021-07-23 06:12] LABS: MAGNESIUM 1.8 mg/dL (1.7-2.8); PHOSPHORUS 2.4 mg/dL (2.5-4.6)
[2021-07-23] MEDS ORDERED: MAGNESIUM SULFATE 2 GRAM 2 GM/50 ML BAG IV ONE (06:16)
[2021-07-23 06:31] LABS: ABNORMAL LYMPHS % (MANUAL) 2 %; BAND NEUTROPHILS % (MANUAL) 4 %; BASOPHILS # (MANUAL) 0.1 10^3/uL (0-0.1); BASOPHILS % (MANUAL) 1 %; EOSINOPHILS # (MANUAL) 0.1 10^3/uL (0-0.7); LYMPHOCYTES # (MANUAL) 2.2 10^3/uL (1.5-3.5); LYMPHOCYTES % (MANUAL) 34 %; MONOCYTES # (MANUAL) 0.4 10^3/uL (0.0-1.0); NEUTROPHILS # (MANUAL) 3.4 10^3/uL (1.5-6.6); PLATELET ESTIMATE, MANUAL DECREASED (<130,000) (NORMAL); PLATELET MORPHOLOGY NORMAL APPEARANCE (NORMAL); WBC MORPHOLOGY (MULTIPLE) NORMAL APPEARANCE (NORMAL)
[2021-07-23 06:32] LABS: DIFFERENTIAL COMMENT MANUAL DIFFERENTIAL
[2021-07-23] MEDS ORDERED: CALCIUM GLUCONATE 2,000 MG in SODIUM CHLORIDE 0.9% 100ML 100 ML IV ONE (07:00)
[2021-07-23] MEDS ORDERED: SODIUM CHLORIDE INHALATION 3 ML NEB ONE (07:26)
--- NOTE | 2021-07-23 07:33 | PROVIDER PROGRESS NOTE ---
Assessment/Plan - Problem List (1) Acute respiratory failure requiring reintubation Assessment/Plan: 07/23/21 Patient has been stable on the vent. She continues to be afebrile for a second day. Her white blood cell count today was normal. This is day #6 of the third intubation. Overall patient has been intubated for over 21 days. Continue sedation with fentanyl and precedex We will continue to attempt to transfer patient to another facility for higher level of care. Attempts to date have been unsuccessful. I had a conversation with the patient's niece Larissa who is a nurse and the patient's sister Katlin at bedside. I summarized and presented her clinical condition. They expressed understanding and asked follow-up questions. They understand that she is vent dependent have not failed extubation attempts a couple of times, aspirating and having difficulties managing her secretions. She requested that I talk to another physician for a second opinion. I spoke with Dr. Aline French who was agreeable to discuss with the patient's niece. I will also present the case to and lead systems architect at a higher level of care facility for any insight. 07/22/21 No significant change in patient's clinical status This is day #5 of the third intubation. Overall patient has been intubated for over 21 days. Continue sedation with fentanyl and precedex We will continue to attempt to transfer patient to another facility for higher level of care. Attempts to date have been unsuccessful. The patient's caregiver (Henny) was at bedside at time of exam. I again summarized the overall picture highlighting that there was no progress/improvement in patient's overall clinical condition. I attempted to highlight patient's poor prognosis. It has been a difficult balance continuing nutrition with high intravenous vol umes versus managing patient's anasarca even while keeping intravascular pressures adequate. I shared my opinion that the patient's quality of life was currently poor. A point Henny disagrees with, countering that as long as there is life, that is value for which we should continue care. She took my input under advisement but made no change to current plan of care which includes continung antimicrobial, pressors, vent support and also involves transferring patient. 07/21/21 No significant change in patient's clinical status This is day #4 of the third intubation. Overall patient has been intubated for over 21 days. Continue sedation with fentanyl and precedex We will continue to attempt to transfer patient to another facility for higher level of care. Attempts to date have been unsuccessful. 07/20/21 No significant change in patient's clinical status This is day #3 of the third intubation. Overall patient has been intubated for over 21 days. Continue sedation with fentanyl and precedex. ABG done today showed pH 7.39 PCO2 45 PO2 62 Bicarbonate 26.3. We will continue to attempt to transfer patient to another facility for higher level of care. 07/19/21 This is day #2 of the third intubation. Overall patient has been intubated for over 21 days. Continue sedation with fentanyl. ABG done today showed pH 7.46 PCO2 39 PO2 211 aBicarbonate 27. This was on an FiO2 of 30, AC VC mode, tidal volume 450, Respiratory rate 12,PEEP 5, We will continue to attempt to transfer patient to another facility for higher level of care. 07/18/21 Patient was extubated around 9 AM on 07/17/2021. This was the 7 days since re-intubation. She seemed to be maintaining/protecting her airway through the course of the morning into the afternoon. In the course of being cleaned/changed mid-afternoon, she vomited a significant amount of tube feed, By 6 PM on 07/17/2021ppeared less responsive. She was also very diaphoretic and appeared to be in respiratory distress. While she had only required 2 L of oxygen via nasal cannula to keep her oxygen saturation in the high 90s during the day, her oxygen requirement increased significantly. An ABG was done which showed 1.15, PCO2 79, PO2 69. Chest x-ray Around 7 PM on 07/17/2021 showed bibasilar airspace opacities suspicious for aspiration versus pneumonia. Cephalization of pulmonary vasculature and perihilar opacities compatible with pulmonary edema The patient's caregiver Henny was at bedside and wished for re-intubation. Her sister Katie Massey (DPTOM) has given approval for Henny's input into the patient's medical decision As a result the patient was re-intubated. Based on previous conversations and discussion around the time of this reintu bation the indication would be for a trach and PEG. On 07/18/2021 I further discussed with Henny regarding the patient's quality of life with placement of a trach and PEG considering that she will be vent dependent indefinitely and also be at risk of aspirations. I mentioned consideration for palliative or hospice care. [facility] and [facility] wish to proceed with a trach and PEG. I have reached out to [facility] in [place], [facility] in [place] and [facility] in [place] however these hospitals are currently at capacity. The placed her name on the list and will contact me once there is an availability. Yesterday after intubation the patient was sedated with propofol. This was changed to fentanyl and Precedex today 07/18/2021 to permit continuation of patient's TPN. ABG at 9 AM today showed pH 7.46, PCO2 37, PO2 101 and bicarb 25.4. The patient was on an FiO2 of 35%, assist control mode, tidal volume 420 PEEP 5. FiO2 was decreased to 30 and respiratory rate was decreased from 18 to 16 She is on norepinephrine. Patient was placed on Flagyl due to aspiration. She remains afebrile. White blood cell count is normal at 6.2 (2) On mechanically assisted ventilation Assessment/Plan: No significant change in patient's clinical status This is day #5 of the third intubation. Overall patient has been intubated for over 21 days. Continue sedation with fentanyl. We will continue to attempt to transfer patient to another facility for higher level of care. (3) Aspiration pneumonia Assessment/Plan: Patient had a temperature of 38.2 C. Her white blood cell count was 4.3. Continue Levaquin 750 mg IV daily and Flagyl 500 mg IV 3 times daily 2 blood cultures grew yeast. The patient was started on Diflucan 200 mg IV daily on 07/21/21. Continue levophed drip (4) Septic shock Assessment/Plan: Secondary to aspiration pneumonia. Patient is currently on Levaquin and Flagyl IV. 2 blood cultures grew yeast. The patient was started on Diflucan 200 mg IV felicia ly on 07/21/21. Patient is on norepinephrine drip. (5) Ileus following gastrointestinal surgery Assessment/Plan: NG tube draining bilious looking secretions. On Reglan 5 mg IV every 6 hours scheduled. No bowel movement in 5 days. Abdominal x-ray done 07/23/21 showed persistent enteric contrast, compatible with delayed transit. (6) Anasarca Assessment/Plan: Improvement in swelling (especially in upper extremities) On Lasix 60 mg IV twice daily. TPN held 07/21/2021 due to extensive anasarca (7) Chronic diastolic heart failure Assessment/Plan: Echo December 2019 had ejection fraction of 65 to 70%. Mild tricuspid regurgitation. RVSP was 43 mmHg. Echo January 2020 had ejection fraction of 55 to 60%. Echocardiogram done June 27, 2021 has an ejection fraction of 40 to 45% and her systolic function is globally impaired. Right ventricular pacing evident. Was placed in September 2020? Mild to moderate right ventricular enlargement. Moderate to severe mitral regurgitation. Moderate LAE, severe ORI. On Lasix 60mg IV bid (8) Perforated duodenal ulcer Assessment/Plan: Postop day #28. Status post ex lap with repair of posterior duodenal ulcer General surgery following. No bowel movement in 3 days. Increased billous appearing secretions Tube feed discontinue later in the day on 07/17/21 due to aspiration. It had been initiated earlier on 07/17/21 at 25ml/hr TPN held 07/21/2021 due to extensive anasarca (9) Hypothyroidism Assessment/Plan: On Synthroid 130 mcg IV Mondays and . (10) History of atrial fibrillation Assessment/Plan: Rate controlled. Not on any medication. (11) History of pulmonary embolism Assessment/Plan: On Lovenox 40 mg subcu daily for DVT prophylaxis. (12) Schizophrenia Assessment/Plan: Seroquel discontinued while patient is receiving Reglan for ileus. (13) Iron deficiency anemia Assessment/Plan: We will continue to monitor hemoglobin. - Current Meds Current Meds: Current Medications Generic Name Dose Route Start Last Admin Trade Name Freq PRN Reason Stop Dose Admin Acetaminophen 650 mg 07/17/21 11:05 07/21/21 10:00 Acetaminophen 325 Mg Tablet PO 650 mg Q6HR PRN Administration Pain or Fever > 38C (100.4F) Bisacodyl 10 mg 07/14/21 09:00 07/22/21 09:50 Bisacodyl 10 Mg Supp LA 10 mg DAILY JULIETA Administration Chlorhexidine Gluconate 15 ml 06/27/21 21:00 07/22/21 19:51 Chlorhexidine Gluconate 15 Ml Udc PO 15 ml BID JULIETA Administration Enoxaparin Sodium 40 mg 06/28/21 09:00 07/22/21 10:40 Enoxaparin 40 Mg/0.4 Ml Syringe SUBQ 40 mg DAILY JULIETA Administration Furosemide 60 mg 07/20/21 15:00 07/23/21 05:43 Furosemide 40 Mg/4 Ml Vial IVP 60 mg BIDDIURETIC JULIETA Administration Glycopyrrolate 0.2 mg 06/28/21 21:17 07/18/21 20:40 Glycopyrrolate 1 Mg/5 Ml Vial SUBQ 0.2 mg Q6H PRN Administration Excessive Secretions Hydromorphone HCl 1 mg 07/18/21 09:27 07/23/21 04:14 Hydromorphone 1 Mg/Ml Carpuject IVP 1 mg Q2H PRN Administration PAIN Sodium Chloride 500 mls @ 20 mls/hr 06/26/21 23:03 07/22/21 20:57 Normal Saline 0.9% IV Infused Q24H PRN Infusion TKO RATE Multivitamins 10 ml/ TRACE 2,011 mls @ 75 mls/hr 06/27/21 19:00 07/21/21 11:20 ELEMENTS 1 ml/ Amino Ac/ IV 0 mls/hr Electrol/Dextrose/Calcium Q24H JULIETA Infusion Protocol Norepinephrine Bitartrate 8 mg 250 mls @ 15 mls/hr 07/10/21 12:00 07/22/21 20:24 / Dextrose IV 10 mcg/min .[id number] JULIETA 18.75 mls/hr Administration Protocol 8 MCG/MIN Metronidazole 500 mg in 100 mls @ 100 mls/hr 07/17/21 20:00 07/23/21 05:00 Flagyl 500 Mg/100 Ml IV Infused Q8H JULIETA Infusion Fentanyl 2,500 mcg in 250 mls @ 8.65 mls/hr 07/18/21 12:30 07/23/21 05:42 Fentanyl IV 7 mcg/kg/hr .[id number] JULIETA 60.55 mls/hr Administration Protocol 1 MCG/KG/HR Levofloxacin 750 mg in 150 mls @ 100 mls/hr 07/19/21 10:00 07/22/21 12:30 Levaquin 750 Mg/150 Ml IV Infused Q24H JULIETA Infusion Fluconazole 100 mls @ 66.667 mls/hr 07/21/21 13:00 07/22/21 11:30 Diflucan 200 Mg/100 Ml IV Infused DAILY JULIETA Infusion Dexmedetomidine HCl 1,000 mcg/ 250 mls @ 32.438 mls/hr 07/22/21 13:30 07/23/21 00:17 Sodium Chloride IV 1 mcg/kg/hr .Q7H43M PRN 21.625 mls/hr Agitation Administration Protocol 1.5 MCG/KG/HR Calcium Gluconate 2,000 mg/ 120 mls @ 120 mls/hr 07/23/21 07:00 07/23/21 06:35 Sodium Chloride IV 07/23/21 07:59 120 mls/hr ONCE ONE Administration Protocol Levothyroxine Sodium 130 mcg 07/12/21 12:00 07/22/21 06:14 Levothyroxine 100 Mcg Vial IVP 130 mcg MoTh@0700 JULIETA Administration Mineral Oil 1 applic 07/01/21 01:24 07/06/21 20:24 Min Oil/Dimethicon/Coconut Oil 92 Gm Tube TOP 1 ea PRN PRN Administration Skin Care Pantoprazole Sodium 40 mg 06/27/21 07:00 07/23/21 06:07 Pantoprazole 40 Mg Vial IVP 40 mg QDAC JULIETA Administration Phenol/Menthol 2 sprays 07/05/21 21:24 07/07/21 11:03 Phenol Throat [place] 177 Ml MM 2 sprays Q2HR PRN Administration Throat Pain Scopolamine HBr 1 patch 07/20/21 19:00 07/20/21 19:00 Scopolamine Patch TOP 1 patch Q3D JULIETA Administration Sodium Chloride 10 ml 06/27/21 01:00 07/23/21 00:30 Sodium Chloride Flush 0.9% 10 Ml Syringe IVP Not Given 0100,0900,1700 JULIETA Sodium Chloride 10 ml 06/26/21 20:54 07/22/21 05:22 Sodium Chloride Flush 0.9% 10 Ml Syringe IVP 10 ml PRN PRN Administration NEEDED PER PROVIDER ORDERS Sodium Chloride 20 ml 06/26/21 23:03 07/22/21 05:22 Sodium Chloride Flush 0.9% 10 Ml Syringe IVP 20 ml PRN PRN Administration After Blood Draw - Lab Result Fish Bone Diagrams: 07/24/21 04:12 07/24/21 15:55 - Additional Planning My Orders: My Active Orders 07/24/21 05:00 BMP - BASIC METABOLIC PANEL [CHEM] DAILYLAB CALCIUM, IONIZED ([facility]) [BG] DAILYLAB CBC - COMP BLD CT W/AUTO DIFF [HEME] DAILYLAB MAGNESIUM [CHEM] DAILYLAB PHOSPHORUS [CHEM] DAILYLAB 07/25/21 05:00 BMP - BASIC METABOLIC PANEL [CHEM] DAILYLAB CALCIUM, IONIZED ([facility]) [BG] DAILYLAB MAGNESIUM [CHEM] DAILYLAB PHOSPHORUS [CHEM] DAILYLAB 07/26/21 05:00 BMP - BASIC METABOLIC PANEL [CHEM] DAILYLAB 07/27/21 05:00 BMP - BASIC METABOLIC PANEL [CHEM] DAILYLAB 07/28/21 05:00 BMP - BASIC METABOLIC PANEL [CHEM] DAILYLAB 07/29/21 05:00 BMP - BASIC METABOLIC PANEL [CHEM] DAILYLAB Subjective - Subjective Patient Reports: Other (Patient is sedated and intubated thus unable to provide a history. Resting calmly in bed. Continues to be afebrile. Edema continues to improve.) Objective Vital Signs: Vital Signs - 24 hr 07/22/21 07/22/21 07/22/21 08:00 09:00 10:00 Temperature 36.6 C Heart Rate Heart Rate [75] 75 79 Heart Rate [ 82 75 79 Monitoring electrodes] Respiratory 13 17 12 Rate Blood Pressure 109/52 L 94/49 L 101/47 L [Left Brachial artery] O2 Saturation 96 97 07/22/21 07/22/21 07/22/21 11:00 12:00 13:00 Temperature 79 C H Heart Rate Heart Rate [75] 78 79 79 Heart Rate [ 78 79 79 Monitoring electrodes] Respiratory 12 13 20 Rate Blood Pressure 121/48 L 104/47 L 94/52 L [Left Brachial artery] O2 Saturation 98 96 98 07/22/21 07/22/21 07/22/21 14:00 15:00 16:00 Temperature 36.6 C Heart Rate Heart Rate [75] 80 83 81 Heart Rate [ Monitoring electrodes] Respiratory 17 12 16 Rate Blood Pressure 87/57 L 95/71 117/57 L [Left Brachial artery] O2 Saturation 97 97 98 07/22/21 07/22/21 07/22/21 17:00 18:00 19:00 Temperature Heart Rate Heart Rate [75] 86 89 90 Heart Rate [ Monitoring electrodes] Respiratory 21 22 17 Rate Blood Pressure 128/44 L 96/73 110/60 [Left Brachial artery] O2 Saturation 98 99 97 07/22/21 07/22/21 07/22/21 20:00 21:00 21:30 Temperature 37.5 C Heart Rate 75 Heart Rate [75] 90 79 Heart Rate [ 14 L Monitoring electrodes] Respiratory 97 H 14 Rate Blood Pressure 132/58 H 104/58 L [Left Brachial artery] O2 Saturation 98 07/22/21 07/22/21 07/23/21 22:00 23:00 00:00 Temperature 37.9 C Heart Rate Heart Rate [75] Heart Rate [ 77 89 79 Monitoring electrodes] Respiratory 14 15 21 Rate Blood Pressure 109/62 115/58 L 105/58 L [Left Brachial artery] O2 Saturation 100 96 99 07/23/21 07/23/21 07/23/21 01:00 02:00 03:00 Temperature Heart Rate 77 Heart Rate [75] Heart Rate [ 77 78 76 Monitoring electrodes] Respiratory 12 17 12 Rate Blood Pressure 110/56 L 108/68 98/60 [Left Brachial artery] O2 Saturation 99 99 99 07/23/21 07/23/21 07/23/21 04:00 05:00 06:00 Temperature 37.5 C Heart Rate Heart Rate [75] Heart Rate [ 77 77 75 Monitoring electrodes] Respiratory 12 12 12 Rate Blood Pressure 111/50 L 109/52 L 110/44 L [Left Brachial artery] O2 Saturation 99 98 99 07/23/21 07:00 Temperature Heart Rate Heart Rate [75] Heart Rate [ 75 Monitoring electrodes] Respiratory 7 L Rate Blood Pressure 105/44 L [Left Brachial artery] O2 Saturation 98 Oxygen O2 Source Mechanical ventilator I&O (Last 24 Hrs): Intake and Output Totals x24h 07/21/21 07/22/21 07/23/21 23:59 23:59 23:59 Intake Total 4352.887 3118.821 894.069 Output Total 3518 4150 1300 Balance 834.887 -1031.179 -405.931 Comments/Notes: General: Other (Intubated, sedated, restless, resting comfortably) HEENT: PERRLA, EOMI Neck: Supple Neuro: Other (Sedated and intubated) Cardiovascular: Regular rate, Normal S1, Normal S2 Respiratory: Chest non-tender, No respiratory distress, Rhonchi (bilaterally) Abdomen: Normal bowel sounds, Soft Extremities: Other ([place] decreased) Skin: No rashes, No breakdown, No significant lesion - Results Results: Laboratory Results WBC 6.1 x10^3/uL (4.8-10.8) 07/23/21 04:51 RBC 3.38 10^6/uL (4.20-5.40) L 07/23/21 04:51 Hgb 9.9 g/dL (12.0-16.0) L 07/23/21 04:51 Hct 30.9 % (37.0-47.0) L 07/23/21 04:51 MCV 91.4 fL (81.0-99.0) 07/23/21 04:51 MCH 29.3 pg (27.0-31.0) 07/23/21 04:51 MCHC 32.0 g/dL (32.0-36.0) 07/23/21 04:51 RDW 20.6 % (12.0-15.0) H 07/23/21 04:51 Plt Count 119 10^3/uL (130-450) L 07/23/21 04:51 MPV 12.2 fL (7.9-10.8) H 07/23/21 04:51 Neut # (Auto) Not Reportable 07/23/21 04:51 Lymph # (Auto) Not Reportable 07/23/21 04:51 [place] # (Auto) Not Reportable 07/23/21 04:51 Eos # (Auto) Not Reportable 07/23/21 04:51 Baso # (Auto) Not Reportable 07/23/21 04:51 Absolute Nucleated RBC Not Reportable 07/23/21 04:51 Total Counted 100 07/23/21 04:51 Band Neuts % (Manual) 4 % (0-10) 07/23/21 04:51 Abnorm Lymph % (Manual) 2 % 07/23/21 04:51 Metamyelocytes % 1 % (-0) H 07/22/21 04:54 Myelocytes % 1 % (-0) H 07/22/21 04:54 Nucleated RBC % Not Reportable 07/23/21 04:51 Neutrophils # (Manual) 3.4 10^3/uL (1.5-6.6) 07/23/21 04:51 Lymphocytes # (Manual) 2.2 10^3/uL (1.5-3.5) 07/23/21 04:51 Monocytes # (Manual) 0.4 10^3/uL (0.0-1.0) 07/23/21 04:51 Eosinophils # (Manual) 0.1 10^3/uL (0-0.7) 07/23/21 04:51 Basophils # (Manual) 0.1 10^3/uL (0-0.1) 07/23/21 04:51 Differential Comment MANUAL DIFFERENTIAL 07/23/21 04:51 Manual Slide Review Indicated 07/18/21 06:20 WBC Morphology NORMAL APPEARANCE (NORMAL) 07/23/21 04:51 Platelet Estimate DECREASED (<130,000) (NORMAL) 07/23/21 04:51 Platelet Morphology NORMAL APPEARANCE (NORMAL) 07/23/21 04:51 RBC Morph Micro Appear 2+ ANISOCYTOSIS (NORMAL) 1+ HYPOCHROMASIA (NORMAL) 07/23/21 04:51 RBC Morph Micro Appear 2+ ANISOCYTOSIS (NORMAL) 1+ HYPOCHROMASIA (NORMAL) 07/23/21 04:51 Bld Gas Analysis Time 0808 07/20/21 08:08 Sample Site LEFT RADIAL 07/20/21 08:08 ABG pH 7.39 (7.35-7.45) 07/20/21 08:08 ABG pCO2 45 mmHg (34-45) 07/20/21 08:08 ABG pO2 62 mmHg (80-100) L 07/20/21 08:08 ABG HCO3 26.3 mmol/L (22.0-26.0) H 07/20/21 08:08 ABG Total CO2 27.7 MMOL/L (21.0-29.0) 07/20/21 08:08 ABG O2 Saturation 91 % (94-98) L 07/20/21 08:08 ABG Base Excess 1.1 mmol/L (-2.0-3.0) 07/20/21 08:08 Ruperto Test POSITIVE 07/20/21 08:08 VBG pH 7.481 (7.31-7.41) H 07/23/21 04:51 Ionized Calcium 0.96 mmol/L (1.15-1.33) L 07/23/21 04:51 Respiration Rate 12 b/min 07/20/21 08:08 O2 Delivery Device VENTILATOR 07/20/21 08:08 O2 Liters/Min 4.50 LPM 07/17/21 18:35 Vent Mode AC/VC 07/20/21 08:08 FiO2 25.00 07/20/21 08:08 Tidal Volume 420 mL 07/20/21 08:08 PEEP 5 cmH2O 07/20/21 08:08 Pressure Support Vent 12 cmH2O 07/05/21 11:00 IPAP Not Reportable 06/27/21 05:43 Sodium 137 mmol/L (135-145) 07/23/21 04:51 Potassium 3.8 mmol/L (3.5-5.0) 07/23/21 04:51 Chloride 100 mmol/L (101-111) L 07/23/21 04:51 Carbon Dioxide 27 mmol/L (21-32) 07/23/21 04:51 Anion Gap 10.0 (6-13) 07/23/21 04:51 BUN 18 mg/dL (6-20) 07/23/21 04:51 Creatinine 0.6 mg/dL (0.4-1.0) 07/23/21 04:51 Estimated GFR (MDRD) 96 (>89) 07/23/21 04:51 Glucose 107 mg/dL (70-100) H 07/23/21 04:51 POC Whole Bld Glucose 104 mg/dL (70 - 100) H 07/23/21 05:52 Lactic Acid 1.0 mmol/L (0.5-2.2) 07/21/21 12:54 Calcium 7.2 mg/dL (8.5-10.3) L 07/23/21 04:51 Ionized Calcium YES 07/04/21 04:43 Phosphorus 2.4 mg/dL (2.5-4.6) L 07/23/21 04:51 Magnesium 1.8 mg/dL (1.7-2.8) 07/23/21 04:51 Iron 11 ug/dL (28-170) L 07/04/21 04:43 TIBC 115 ug/dL (250-450) L 07/04/21 04:43 % Saturation 10 % (20-50) L 07/04/21 04:43 Transferrin 82 mg/dL (192-382) L 07/04/21 04:43 Total Bilirubin 0.2 mg/dL (0.2-1.0) 07/19/21 05:50 Direct Bilirubin 0.2 mg/dL (0.1-0.5) 07/19/21 05:50 AST 96 IU/L (10-42) H 07/19/21 05:50 ALT 54 IU/L (10-60) 07/19/21 05:50 Alkaline Phosphatase 137 IU/L (42-121) H 07/19/21 05:50 Troponin I High Sens 121.5 ng/L (2.3-14.8) H* 07/18/21 06:51 C-Reactive Protein 7.1 mg/dL (0-1.0) H 07/04/21 04:43 B-Natriuretic Peptide 919 pg/mL (5-100) H 07/03/21 07:30 Total Protein 4.6 g/dL (6.7-8.2) L 07/19/21 05:50 Albumin 1.7 g/dL (3.2-5.5) L 07/19/21 05:50 Globulin 2.9 g/dL (2.1-4.2) 07/19/21 05:50 Albumin/Globulin Ratio 0.6 (1.0-2.2) L 07/17/21 07:50 Prealbumin 5 mg/dL (18-45) L 07/22/21 04:54 Triglycerides 69 mg/dL (-149) 07/19/21 05:50 Cholesterol 78 mg/dL (-199) 07/19/21 05:50 LDL Cholesterol, Calc 45 mg/dL (-129) 07/19/21 05:50 VLDL Cholesterol 14 mg/dL 07/19/21 05:50 HDL Cholesterol 19 mg/dL (60-) L 07/19/21 05:50 LDL/HDL Ratio 2.4 (<4.4) 07/19/21 05:50 Cholesterol/HDL Ratio 4.1 (<4.4) 07/19/21 05:50 Lipase 42 U/L (22-51) 06/26/21 14:26 TSH 3.29 uIU/mL (0.34-5.60) 07/02/21 04:42 Free T4 0.97 ng/dL (0.58-1.64) 07/02/21 04:42 Cortisol AM Sample 6.1 ug/dL 07/05/21 05:31 Urine Color YELLOW 06/26/21 22:51 Urine Clarity CLEAR (CLEAR) 06/26/21 22:51 Urine pH 5.0 PH (5.0-7.5) 06/26/21 22:51 Ur Specific [place] 1.015 (1.002-1.030) 06/26/21 22:51 Urine Protein NEGATIVE mg/dL (NEGATIVE) 06/26/21 22:51 Urine Glucose (UA) NEGATIVE mg/dL (NEGATIVE) 06/26/21 22:51 Urine Ketones NEGATIVE mg/dL (NEGATIVE) 06/26/21 22:51 Urine Occult Blood NEGATIVE (NEGATIVE) 06/26/21 22:51 Urine Nitrite NEGATIVE (NEGATIVE) 06/26/21 22:51 Urine Bilirubin NEGATIVE (NEGATIVE) 06/26/21 22:51 Urine Urobilinogen 0.2 (NORMAL) E.U./dL (NORMAL) 06/26/21 22:51 Ur Leukocyte Esterase TRACE (NEGATIVE) H 06/26/21 22:51 Urine RBC 0-5 /HPF (0-5) 06/26/21 22:51 Urine WBC 4-5 /HPF (0-5) 06/26/21 22:51 Ur Squamous Epith Cells FEW Squamous (<= Few) 06/26/21 22:51 Urine Bacteria Few /HPF (None Seen) 06/26/21 22:51 Urine Casts 3-5 Hyaline Casts /LPF 06/26/21 22:51 Ur Microscopic Review INDICATED 06/26/21 22:51 Urine Culture Comments INDICATED 06/26/21 22:51 Nasal Adenovirus (PCR) NOT DETECTED 07/14/21 16:00 Nasal B. parapertussis DNA (PCR) NOT DETECTED 07/14/21 16:00 Nasal Coronavir 229E PCR NOT DETECTED 07/14/21 16:00 Nasal Coronavir HKU1 PCR NOT DETECTED 07/14/21 16:00 Nasal Coronavir NL63 PCR NOT DETECTED 07/14/21 16:00 Nasal Coronavir OC43 PCR NOT DETECTED 07/14/21 16:00 Nasal Enterovir/Rhinovir PCR NOT DETECTED 07/14/21 16:00 Nasal Influenza B PCR NOT DETECTED 07/14/21 16:00 Nasal Influenza A PCR NOT DETECTED 07/14/21 16:00 Nasal Parainfluen 1 PCR NOT DETECTED 07/14/21 16:00 Nasal Parainfluen 2 PCR NOT DETECTED 07/14/21 16:00 Nasal Parainfluen 3 PCR NOT DETECTED 07/14/21 16:00 Nasal Parainfluen 4 PCR NOT DETECTED 07/14/21 16:00 Nasal RSV (PCR) NOT DETECTED 07/14/21 16:00 Nasal Screen MRSA (PCR) NEGATIVE (NEGATIVE) 06/26/21 21:55 Nasal B.pertussis DNA PCR NOT DETECTED 07/14/21 16:00 Nasal C.pneumoniae (PCR) NOT DETECTED 07/14/21 16:00 Mk Human Metapneumo PCR NOT DETECTED 07/14/21 16:00 Nasal M.pneumoniae (PCR) NOT DETECTED 07/14/21 16:00 Nasal SARS-CoV-2 (PCR) NOT DETECTED 07/14/21 16:00 Last Dose Date 07/19/2021 07/19/21 05:50 Last Dose Time 0100 07/19/21 05:50 Vancomycin Trough 16.8 ug/mL (10.0-20.0) 07/15/21 15:30 Digoxin 1.4 ng/mL 07/19/21 05:50 - Procedures Procedures: Procedures RESPIRATORY VENTILATION, LESS THAN 24 CONSECUTIVE HOURS (01/11/20) Sepsis Event Note (H) - Evaluation Current Stage of Sepsis: Septic shock Possible source of Sepsis: positive: GI tract/intra-abdominal - Sepsis Criteria Sepsis Criteria: WBC count greater than 10% bands, SBP drop more than 40mHg, MAP less than 65 mmHg, SBP less than 90 mmHg, Renal: urine output less than 0.5ml/kg/hr for 2 hours or creatinine gr, Metabolic: lactate > 2 mmol/L ABX Reporting Has patient been on IV antibiotics over the past 48 hours?: Yes
[2021-07-23] MEDS ORDERED: POTASSIUM PHOSPHATE 15 MMOL in SODIUM CHLORIDE 0.9% 250 ML IV ONE (08:00)
[2021-07-23] MEDS: SODIUM CHLORIDE 0.9% 500 ML IV PRN ×2 (09:17→12:48)
[2021-07-23] MEDS: FLUCONAZOLE 200 MG/100 ML 100 ML IV SCH (09:33)
[2021-07-23] MEDS: CHLORHEXIDINE GLUCONATE 15 ML UDC PO SCH ×2 (09:39→20:38)
[2021-07-23] MEDS: BISACODYL 10 MG SUPP PR SCH (09:39)
[2021-07-23] MEDS: ENOXAPARIN 40 MG/0.4 ML SYRINGE SUBQ SCH (09:40)
[2021-07-23 10:07] LABS: CALCIUM 7.8 mg/dL (8.5-10.3); MAGNESIUM 2.1 mg/dL (1.7-2.8)
[2021-07-23] MEDS: levoFLOXacin 750 MG/150 ML 750 MG/150 ML BAG IV SCH (10:46)
--- NOTE | 2021-07-23 11:13 | XRAY Report ---
PROCEDURE: Abdomen 1 View X-Ray INDICATIONS: decreased bowel sound. No Bowel movement in days TECHNIQUE: 1 view of the abdomen were acquired. COMPARISON: July 12, 2021 FINDINGS: Surgical changes and devices: An enteric tube extends below the left diaphragm into the region of the stomach. Overlying monitor devices are seen. Bowel: No pneumoperitoneum. Nonspecific bowel gas pattern. Persistent enteric contrast in the colon . Soft tissues: No masses; visualized solid organ contours appear normal in size. No suspicious abdom inal calcifications. 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 IMPRESSION: Persistent enteric contrast, compatible with delayed transit. Reviewed by: Bonifacio Worley MD on 07/23/2021 11:11 AM PDT Approved by: Bonifacio Worley MD on 07/23/2021 11:11 AM PDT Station ID: [id number]
[2021-07-23] MEDS: METOCLOPRAMIDE 10 MG/2 ML VIAL IVP SCH ×2 (12:53→18:19)
[2021-07-23 13:31] LABS: CALCIUM, IONIZED 0.98 mmol/L (1.15-1.33); VBG PH 7.574 (7.31-7.41)
[2021-07-23] MEDS: SODIUM CHLORIDE FLUSH 0.9% 10 ML SYRINGE IVP PRN (13:55)
[2021-07-23] MEDS ORDERED: CALCIUM GLUCONATE 2,000 MG in DEXTROSE 5% 100 ML IV ONE (16:00)
--- NOTE | 2021-07-23 18:01 | XRAY Report ---
PROCEDURE: Chest 1 View X-Ray INDICATIONS: intubated. Aspiration, rhonchous TECHNIQUE: One view of the chest was acquired. COMPARISON: 07/17. FINDINGS: Surgical changes and devices: ET tube projects 6.4 cm superior to the sosa. Dual-lead cardiac pacer is stable. PICC line projects to the distal SVC via right-sided approach. Lungs and pleura: Opacification of in the lung bases has decreased in size the interval since prior e xam. Trace bilateral pleural fluid collections slightly increased in size. Mediastinum: Mediastinal contours appear normal. Heart size is normal. Bones and chest wall: No suspicious bony lesions. Overlying soft tissues appear unremarkable. IMPRESSION: Bibasilar opacities decreased in size, but without resolution. Finding compatible with persistent pne umonia/aspiration Reviewed by: Leni Hernández MD, PhD on 07/23/2021 6:00 PM PDT Approved by: Leni Hernández MD, PhD on 07/23/2021 6:00 PM PDT Station ID: [id number]
[2021-07-23] MEDS: SCOPOLAMINE PATCH TOP SCH (18:18)
[2021-07-23 19:52] LABS: CALCIUM, IONIZED 1.02 mmol/L (1.15-1.33); VBG PH 7.511 (7.31-7.41)
[2021-07-23] MEDS ORDERED: CALCIUM GLUCONATE 1,000 MG in SODIUM CHLORIDE 0.9% 50 ML IV ONE ×2 (21:00→23:45)
[2021-07-23 23:27] LABS: VBG PH 7.497 (7.31-7.41)
[2021-07-24] MEDS: METOCLOPRAMIDE 10 MG/2 ML VIAL IVP SCH ×4 (00:02→18:37)
[2021-07-24] MEDS: HYDROmorphone 1 MG/ML CARPUJECT IVP PRN ×4 (00:03→22:38)
[2021-07-24] MEDS: SODIUM CHLORIDE FLUSH 0.9% 10 ML SYRINGE IVP SCH ×4 (01:39→19:35)
[2021-07-24] MEDS: metroNIDAZOLE 500 MG/100 ML 500 MG/100 ML BAG IV SCH ×3 (03:55→20:04)
[2021-07-24] MEDS: fentaNYL 2,500 MCG/250 ML 2,500 MCG/250 ML BAG IV SCH ×5 (03:55→22:21)
[2021-07-24 04:55] LABS: BASOPHILS % (AUTO) 0.3 %; EOSINOPHILS % (AUTO) 2.7 %; HCT - HEMATOCRIT 29.3 % (37.0-47.0); HGB - HEMOGLOBIN 9.5 g/dL (12.0-16.0); LYMPHOCYTES % (AUTO) 38.8 %; MEAN CORPUSCULAR HEMOGLOBIN 29.3 pg (27.0-31.0); MEAN CORPUSCULAR HGB CONC 32.4 g/dL (32.0-36.0); MEAN CORPUSCULAR VOLUME 90.4 fL (81.0-99.0); MEAN PLATELET VOLUME 12.6 fL (7.9-10.8); MONOCYTES % (AUTO) 7.2 %; NEUTROPHILS % (AUTO) 49.5 %; PLT - PLATELET COUNT 153 10^3/uL (130-450); RED BLOOD COUNT 3.24 10^6/uL (4.20-5.40); RED CELL DISTRIBUTION WIDTH 20.5 % (12.0-15.0); WHITE BLOOD COUNT 6.7 x10^3/uL (4.8-10.8)
[2021-07-24 04:57] LABS: CALCIUM, IONIZED 1.03 mmol/L (1.15-1.33); VBG PH 7.444 (7.31-7.41)
[2021-07-24] MEDS ORDERED: CALCIUM GLUCONATE 1,000 MG in SODIUM CHLORIDE 0.9% 50 ML IV ONE (05:00)
[2021-07-24 05:02] LABS: ABNORMAL LYMPHS % (MANUAL) 0 %
[2021-07-24 05:06] LABS: CALCIUM 7.4 mg/dL (8.5-10.3); CREATININE 0.6 mg/dL (0.4-1.0); MAGNESIUM 1.7 mg/dL (1.7-2.8); PHOSPHORUS 3.2 mg/dL (2.5-4.6); POTASSIUM 3.1 mmol/L (3.5-5.0)
[2021-07-24] MEDS ORDERED: MAGNESIUM SULFATE 2 GRAM 2 GM/50 ML BAG IV ONE (05:08)
[2021-07-24] MEDS ORDERED: CALCIUM GLUCONATE 1000 MG/10 ML VIAL ONE (05:26)
[2021-07-24] MEDS: FUROSEMIDE 40 MG/4 ML VIAL IVP SCH ×2 (05:33→14:19)
[2021-07-24 05:55] LABS: BAND NEUTROPHILS % (MANUAL) 8 %; EOSINOPHILS # (MANUAL) 0.2 10^3/uL (0-0.7); LYMPHOCYTES # (MANUAL) 2.5 10^3/uL (1.5-3.5); LYMPHOCYTES % (MANUAL) 38 %; METAMYELOCYTES % (MANUAL) 1 %; MONOCYTES # (MANUAL) 0.5 10^3/uL (0.0-1.0); MYELOCYTES % (MANUAL) 1 %; NEUTROPHILS # (MANUAL) 3.4 10^3/uL (1.5-6.6); PLATELET ESTIMATE, MANUAL NORMAL (130-450,000) (NORMAL)
[2021-07-24 05:56] LABS: DIFFERENTIAL COMMENT MANUAL DIFFERENTIAL
[2021-07-24] MEDS: POTASSIUM CHLOR 20 MEQ/100 ML 20 MEQ/100 ML BAG IV SCH ×2 (06:46→08:07)
[2021-07-24] MEDS: PANTOPRAZOLE 40 MG VIAL IVP SCH (08:07)
[2021-07-24] MEDS: CHLORHEXIDINE GLUCONATE 15 ML UDC PO SCH ×2 (08:19→21:10)
[2021-07-24] MEDS: ENOXAPARIN 40 MG/0.4 ML SYRINGE SUBQ SCH (08:19)
[2021-07-24] MEDS: BISACODYL 10 MG SUPP PR SCH (08:19)
[2021-07-24] MEDS: FLUCONAZOLE 200 MG/100 ML 100 ML IV SCH (08:19)
--- NOTE | 2021-07-24 08:20 | PROVIDER PROGRESS NOTE ---
Assessment/Plan - Problem List (1) Acute respiratory failure requiring reintubation Assessment/Plan: 07/24/21 No change in patient's clinical condition. Stable on vent. Afebrile. White blood cell count normal. Day #7 of third intubation. Continuing sedation with fentanyl and Precedex. Attempted to transfer patient to [facility] today was unsuccessful due to no bed availability. 07/23/21 Patient has been stable on the vent. She continues to be afebrile for a second day. Her white blood cell count today was normal. This is day #6 of the third intubation. Overall patient has been intubated for over 21 days. Continue sedation with fentanyl and precedex We will continue to attempt to transfer patient to another facility for higher level of care. Attempts to date have been unsuccessful. I had a conversation with the patient's niece Larissa who is a nurse and the patient's sister Katlin at bedside. I summarized and presented her clinical condition. They expressed understanding and asked follow-up questions. They understand that she is vent dependent have not failed extubation attempts a couple of times, aspirating and having difficulties managing her secretions. She requested that I talk to another physician for a second opinion. I spoke with Dr. Aline French who was agreeable to discuss with the patient's niece. I will also present the case to and tableman at a higher level of care facility for any insight. 07/22/21 No significant change in patient's clinical status This is day #5 of the third intubation. Overall patient has been intubated for over 21 days. Continue sedation with fentanyl and precedex We will continue to attempt to transfer patient to another facility for higher level of care. Attempts to date have been unsuccessful. The patient's caregiver (Henny) was at bedside at time of exam. I again summarized the overall picture highlighting that there was no progress/improvement in patient's overall clinical condition. I attempted to highlight patient's poor prognosis. It has been a difficult balance continuing nutrition with high intravenous volumes versus managing patient's anasarca even while keeping intravascular pressures adequate. I shared my opinion that the patient's quality of life was currently poor. A point Henny disagrees with, countering that as long as there is life, that is value for which we should continue care. She took my input under advisement but made no change to current plan of care which includes continung antimicrobial, pressors, vent support and also involves transferring patient. 07/21/21 No significant change in patient's clinical status This is day #4 of the third intubation. Overall patient has been intubated for over 21 days. Continue sedation with fentanyl and precedex We will continue to attempt to transfer patient to another facility for higher level of care. Attempts to date have been unsuccessful. 07/20/21 No significant change in patient's clinical status This is day #3 of the third intubation. Overall patient has been intubated for over 21 days. Continue sedation with fentanyl and precedex. ABG done today showed pH 7.39 PCO2 45 PO2 62 Bicarbonate 26.3. We will continue to attempt to transfer patient to another facility for higher level of care. 07/19/21 This is day #2 of the third intubation. Overall patient has been intubated for over 21 days. Continue sedation with fentanyl. ABG done today showed pH 7.46 PCO2 39 PO2 211 aBicarbonate 27. This was on an FiO2 of 30, AC VC mode, tidal volume 450, Respiratory rate 12,PEEP 5, We will continue to attempt to transfer patient to another facility for higher level of care. 07/18/21 Patient was extubated around 9 AM on 07/17/2021. This was the 7 days since re-intubation. She seemed to be maintaining/protecting her airway through the course of the morning into the afternoon. In the course of being cleaned/changed mid-afternoon, she vomited a significant amount of tube feed, By 6 PM on 07/17/2021ppeared less responsive. She was also very diaphoretic and appeared to be in respiratory distress. While she had only required 2 L of oxygen via nasal cannula to keep her oxygen saturation in the high 90s during the day, her oxygen requirement increased significantly. An ABG was done which showed 1.15, PCO2 79, PO2 69. Chest x-ray Around 7 PM on 07/17/2021 showed bibasilar airspace opacities suspicious for aspiration versus pneumonia. Cephalization of pulmonary vasculature and perihilar opacities compatible with pulmonary edema The patient's caregiver Henny was at bedside and wished for re-intubation. Her sister Katie Massey (DPTOM) has given approval for Henny's input into the patient's medical decision As a result the patient was re-intubated. Based on previous conversations and discussion around the time of this reintubation the indication would be for a trach and PEG. On 07/18/2021 I further discussed with [facility] regarding the patient's quality of life with placement of a trach and PEG considering that she will be vent dependent indefinitely and also be at risk of aspirations. I mentioned consideration for palliative or hospice care. [facility] and [facility] wish to proceed with a trach and PEG. I have reached out to [facility] in [place], [facility] in [place] and [facility] in [place] however these hospitals are currently at capacity. The placed her name on the list and will contact me once there is an availability. Yesterday after intubation the patient was sedated with propofol. This was changed to fentanyl and Precedex today 07/18/2021 to permit continuation of patient's TPN. ABG at 9 AM today showed pH 7.46, PCO2 37, PO2 101 and bicarb 25.4. The patient was on an FiO2 of 35%, assist control mode, tidal volume 420 PEEP 5. FiO2 was decreased to 30 and respiratory rate was decreased from 18 to 16 She is on norepinephrine. Patient was placed on Flagyl due to aspiration. She remains afebrile. White blood cell count is normal at 6.2 (2) On mechanically assisted ventilation Assessment/Plan: No significant change in patient's clinical status This is day #7 of the third intubation. Overall patient has been intubated for over 21 days. Continue sedation with fentanyl. We will continue to attempt to transfer patient to another facility for higher level of care. (3) Aspiration pneumonia Assessment/Plan: Patient had a temperature of 38.2 C. Her white blood cell count was 4.3. Continue Levaquin 750 mg IV daily and Flagyl 500 mg IV 3 times daily 2 blood cultures grew yeast. The patient was started on Diflucan 200 mg IV daily on 07/21/21. Continue levophed drip (4) Septic shock Assessment/Plan: Improved/resolved. Secondary to aspiration pneumonia. Patient is currently on Levaquin and Flagyl IV. 2 blood cultures grew yeast. The patient was started on Diflucan 200 mg IV daily on 07/21/21. Patient is on norepinephrine drip. We will discontinue Levaquin, Flagyl and Diflucan after 7 days total. (5) Ileus following gastrointestinal surgery Assessment/Plan: NG tube draining bilious looking secretions. On Reglan 5 mg IV every 6 hours scheduled. No bowel movement in 5 days. Abdominal x-ray done 07/23/21 showed persistent enteric contrast, compatible with delayed transit. (6) Anasarca Assessment/Plan: Improvement in swelling (especially in upper extremities) On Lasix 60 mg IV twice daily. TPN resumed 07/24/2021 at half rate (7) Chronic diastolic heart failure Assessment/Plan: Echo December 2019 had ejection fraction of 65 to 70%. Mild tricuspid regurgitation. RVSP was 43 mmHg. Echo January 2020 had ejection fraction of 55 to 60%. Echocardiogram done June 27, 2021 has an ejection fraction of 40 to 45% and her systolic function is globally impaired. Right ventricular pacing evident. Was placed in September 2020? Mild to moderate right ventricular enlargement. Moderate to severe mitral regurgitation. Moderate LAE, severe ORI. On Lasix 60mg IV bid (8) Perforated duodenal ulcer Assessment/Plan: Postop day #28. Status post ex lap with repair of posterior duodenal ulcer General surgery following. No bowel movement in 3 days. Increased billous appearing secretions Tube feed discontinue later in the day on 07/17/21 due to aspiration. It had been initiated earlier on 07/17/21 at 25ml/hr TPN held 07/21/2021 due to extensive anasarca TPN resumed 07/24/2021. (9) Hypothyroidism Assessment/Plan: On Synthroid 130 mcg IV Mondays and . (10) History of atrial fibrillation Assessment/Plan: Rate controlled. Not on any medication. (11) History of pulmonary embolism Assessment/Plan: On Lovenox 40 mg subcu daily for DVT prophylaxis. (12) Schizophrenia Assessment/Plan: Seroquel discontinued while patient is receiving Reglan for ileus. (13) Iron deficiency anemia Assessment/Plan: We will continue to monitor hemoglobin. - Current Meds Current Meds: Current Medications Generic Name Dose Route Start Last Admin Trade Name Freq PRN Reason Stop Dose Admin Acetaminophen 650 mg 07/17/21 11:05 07/21/21 10:00 Acetaminophen 325 Mg Tablet PO 650 mg Q6HR PRN Administration Pain or Fever > 38C (100.4F) Bisacodyl 10 mg 07/14/21 09:00 07/23/21 09:39 Bisacodyl 10 Mg Supp NV 10 mg DAILY JULIETA Administration Chlorhexidine Gluconate 15 ml 06/27/21 21:00 07/23/21 20:38 Chlorhexidine Gluconate 15 Ml Udc PO 15 ml BID JULIETA Administration Enoxaparin Sodium 40 mg 06/28/21 09:00 07/23/21 09:40 Enoxaparin 40 Mg/0.4 Ml Syringe SUBQ 40 mg DAILY JULIETA Administration Furosemide 60 mg 07/20/21 15:00 07/24/21 05:33 Furosemide 40 Mg/4 Ml Vial IVP 60 mg BIDDIURETIC JULIETA Administration Glycopyrrolate 0.2 mg 06/28/21 21:17 07/18/21 20:40 Glycopyrrolate 1 Mg/5 Ml Vial SUBQ 0.2 mg Q6H PRN Administration Excessive Secretions Hydromorphone HCl 1 mg 07/18/21 09:27 07/24/21 00:03 Hydromorphone 1 Mg/Ml Carpuject IVP 1 mg Q2H PRN Administration PAIN Sodium Chloride 500 mls @ 20 mls/hr 06/26/21 23:03 07/23/21 12:48 Normal Saline 0.9% IV 20 mls/hr Q24H PRN Administration TKO RATE Multivitamins 10 ml/ TRACE 2,011 mls @ 75 mls/hr 06/27/21 19:00 07/21/21 11:20 ELEMENTS 1 ml/ Amino Ac/ IV 0 mls/hr Electrol/Dextrose/Calcium Q24H JULIETA Infusion Protocol Norepinephrine Bitartrate 8 mg 250 mls @ 15 mls/hr 07/10/21 12:00 07/24/21 01:30 / Dextrose IV 8 mcg/min .[id number] JULIETA 15 mls/hr Titration Protocol 8 MCG/MIN Metronidazole 500 mg in 100 mls @ 100 mls/hr 07/17/21 20:00 07/24/21 04:59 Flagyl 500 Mg/100 Ml IV Infused Q8H JULIETA Infusion Fentanyl 2,500 mcg in 250 mls @ 8.65 mls/hr 07/18/21 12:30 07/24/21 03:55 Fentanyl IV 8 mcg/kg/hr .[id number] JULIETA 69.2 mls/hr Administration Protocol 1 MCG/KG/HR Levofloxacin 750 mg in 150 mls @ 100 mls/hr 07/19/21 10:00 07/23/21 12:20 Levaquin 750 Mg/150 Ml IV Infused Q24H JULIETA Infusion Fluconazole 100 mls @ 66.667 mls/hr 07/21/21 13:00 07/23/21 11:08 Diflucan 200 Mg/100 Ml IV Infused DAILY JULIETA Infusion Dexmedetomidine HCl 1,000 mcg/ 250 mls @ 32.438 mls/hr 07/22/21 13:30 07/23/21 23:29 Sodium Chloride IV 1.2 mcg/kg/hr .Q7H43M PRN 25.95 mls/hr Agitation Administration Protocol 1.5 MCG/KG/HR Levothyroxine Sodium 130 mcg 07/12/21 12:00 07/22/21 06:14 Levothyroxine 100 Mcg Vial IVP 130 mcg MoTh@0700 JULIETA Administration Metoclopramide HCl 5 mg 07/23/21 12:00 07/24/21 05:33 Metoclopramide 10 Mg/2 Ml Vial IVP 5 mg Q6HR JULIETA Administration Mineral Oil 1 applic 07/01/21 01:24 07/06/21 20:24 Min Oil/Dimethicon/Coconut Oil 92 Gm Tube TOP 1 ea PRN PRN Administration Skin Care Pantoprazole Sodium 40 mg 06/27/21 07:00 07/24/21 08:07 Pantoprazole 40 Mg Vial IVP 40 mg QDAC JULIETA Administration Phenol/Menthol 2 sprays 07/05/21 21:24 07/07/21 11:03 Phenol Throat [place] 177 Ml MM 2 sprays Q2HR PRN Administration Throat Pain Scopolamine HBr 1 patch 07/20/21 19:00 07/23/21 18:18 Scopolamine Patch TOP 1 patch Q3D JULIETA Administration Sodium Chloride 10 ml 06/27/21 01:00 07/24/21 01:39 Sodium Chloride Flush 0.9% 10 Ml Syringe IVP Not Given 0100,0900,1700 JULIETA Sodium Chloride 10 ml 06/26/21 20:54 07/23/21 13:55 Sodium Chloride Flush 0.9% 10 Ml Syringe IVP 20 ml PRN PRN Administration NEEDED PER PROVIDER ORDERS Sodium Chloride 20 ml 06/26/21 23:03 07/22/21 05:22 Sodium Chloride Flush 0.9% 10 Ml Syringe IVP 20 ml PRN PRN Administration After Blood Draw - Lab Result Fish Bone Diagrams: 07/24/21 04:12 07/24/21 15:55 - Additional Planning My Orders: My Active Orders 07/23/21 12:00 Metoclopramide Inj [Reglan Inj] 5 mg IVP Q6HR 07/25/21 05:00 BMP - BASIC METABOLIC PANEL [CHEM] DAILYLAB CALCIUM, IONIZED ([facility]) [BG] DAILYLAB CBC - COMP BLD CT W/AUTO DIFF [HEME] DAILYLAB MAGNESIUM [CHEM] DAILYLAB PHOSPHORUS [CHEM] DAILYLAB 07/26/21 05:00 BMP - BASIC METABOLIC PANEL [CHEM] DAILYLAB CBC - COMP BLD CT W/AUTO DIFF [HEME] DAILYLAB 07/27/21 05:00 BMP - BASIC METABOLIC PANEL [CHEM] DAILYLAB CBC - COMP BLD CT W/AUTO DIFF [HEME] DAILYLAB 07/28/21 05:00 BMP - BASIC METABOLIC PANEL [CHEM] DAILYLAB CBC - COMP BLD CT W/AUTO DIFF [HEME] DAILYLAB 07/29/21 05:00 BMP - BASIC METABOLIC PANEL [CHEM] DAILYLAB CBC - COMP BLD CT W/AUTO DIFF [HEME] DAILYLAB Objective Vital Signs: Vital Signs - 24 hr 07/23/21 07/23/21 07/23/21 09:00 10:19 11:00 Temperature 36.6 C 36.9 C Heart Rate Heart Rate [ 74 78 72 Monitoring electrodes] Respiratory 13 15 Rate Blood Pressure 112/49 L 116/46 L 108/59 L [Left Brachial artery] O2 Saturation 99 99 07/23/21 07/23/21 07/23/21 11:30 12:00 12:15 Temperature 37 C Heart Rate 74 Heart Rate [ 77 Monitoring electrodes] Respiratory 21 Rate Blood Pressure 97/50 L 103/45 L [Left Brachial artery] O2 Saturation 100 07/23/21 07/23/21 07/23/21 12:30 13:55 14:00 Temperature 37.1 C Heart Rate 88 Heart Rate [ 92 Monitoring electrodes] Respiratory 20 Rate Blood Pressure 99/42 L 105/47 L [Left Brachial artery] O2 Saturation 99 07/23/21 07/23/21 07/23/21 15:00 16:00 17:00 Temperature 37 C Heart Rate Heart Rate [ 90 88 81 Monitoring electrodes] Respiratory 23 13 13 Rate Blood Pressure 92/56 L 123/66 115/55 L [Left Brachial artery] O2 Saturation 98 99 99 07/23/21 07/23/21 07/23/21 17:08 18:00 19:00 Temperature 37.4 C Heart Rate 93 88 Heart Rate [ 80 78 Monitoring electrodes] Respiratory 14 14 Rate Blood Pressure 95/81 H 125/53 L [Left Brachial artery] O2 Saturation 98 99 07/23/21 07/23/21 07/23/21 20:00 21:00 22:00 Temperature Heart Rate Heart Rate [ 77 74 73 Monitoring electrodes] Respiratory 16 15 17 Rate Blood Pressure 129/62 123/59 L 136/58 H [Left Brachial artery] O2 Saturation 99 98 98 07/23/21 07/23/21 07/24/21 22:30 23:00 00:00 Temperature Heart Rate 88 Heart Rate [ 76 75 Monitoring electrodes] Respiratory 14 14 Rate Blood Pressure 129/59 L 125/55 L [Left Brachial artery] O2 Saturation 98 99 07/24/21 07/24/21 07/24/21 01:00 01:35 02:00 Temperature Heart Rate 88 Heart Rate [ 74 70 Monitoring electrodes] Respiratory 20 13 Rate Blood Pressure 130/71 132/55 H [Left Brachial artery] O2 Saturation 100 98 07/24/21 07/24/21 07/24/21 03:00 04:00 05:00 Temperature 37.6 C Heart Rate Heart Rate [ 71 72 70 Monitoring electrodes] Respiratory 14 14 6 L Rate Blood Pressure 135/55 H 135/56 H 132/54 H [Left Brachial artery] O2 Saturation 98 99 99 07/24/21 07/24/21 07/24/21 05:33 06:00 07:00 Temperature Heart Rate 88 Heart Rate [ 70 69 Monitoring electrodes] Respiratory 12 15 Rate Blood Pressure 133/61 H 118/52 L [Left Brachial artery] O2 Saturation 99 98 Oxygen O2 Source Mechanical ventilator I&O (Last 24 Hrs): Intake and Output Totals x24h 07/22/21 07/23/21 07/24/21 23:59 23:59 23:59 Intake Total 3118.821 4020.047 726.125 Output Total 4150 5195 1235 Balance -1031.179 -1174.953 -508.875 - Results Results: Laboratory Results WBC 6.7 x10^3/uL (4.8-10.8) 07/24/21 04:12 RBC 3.24 10^6/uL (4.20-5.40) L 07/24/21 04:12 Hgb 9.5 g/dL (12.0-16.0) L 07/24/21 04:12 Hct 29.3 % (37.0-47.0) L 07/24/21 04:12 MCV 90.4 fL (81.0-99.0) 07/24/21 04:12 MCH 29.3 pg (27.0-31.0) 07/24/21 04:12 MCHC 32.4 g/dL (32.0-36.0) 07/24/21 04:12 RDW 20.5 % (12.0-15.0) H 07/24/21 04:12 Plt Count 153 10^3/uL (130-450) 07/24/21 04:12 MPV 12.6 fL (7.9-10.8) H 07/24/21 04:12 Neut # (Auto) Not Reportable 07/24/21 04:12 Lymph # (Auto) Not Reportable 07/24/21 04:12 [place] # (Auto) Not Reportable 07/24/21 04:12 Eos # (Auto) Not Reportable 07/24/21 04:12 Baso # (Auto) Not Reportable 07/24/21 04:12 Absolute Nucleated RBC Not Reportable 07/24/21 04:12 Total Counted 100 07/24/21 04:12 Band Neuts % (Manual) 8 % (0-10) 07/24/21 04:12 Abnorm Lymph % (Manual) 0 % 07/24/21 04:12 Metamyelocytes % 1 % (-0) H 07/24/21 04:12 Myelocytes % 1 % (-0) H 07/24/21 04:12 Nucleated RBC % Not Reportable 07/24/21 04:12 Neutrophils # (Manual) 3.4 10^3/uL (1.5-6.6) 07/24/21 04:12 Lymphocytes # (Manual) 2.5 10^3/uL (1.5-3.5) 07/24/21 04:12 Monocytes # (Manual) 0.5 10^3/uL (0.0-1.0) 07/24/21 04:12 Eosinophils # (Manual) 0.2 10^3/uL (0-0.7) 07/24/21 04:12 Basophils # (Manual) 0.0 10^3/uL (0-0.1) 07/24/21 04:12 Differential Comment MANUAL DIFFERENTIAL 07/24/21 04:12 Manual Slide Review Indicated 07/18/21 06:20 WBC Morphology NORMAL APPEARANCE (NORMAL) 07/23/21 04:51 Platelet Estimate NORMAL (130-450,000) (NORMAL) 07/24/21 04:12 Platelet Morphology NORMAL APPEARANCE (NORMAL) 07/23/21 04:51 RBC Morph Micro Appear 2+ ANISOCYTOSIS (NORMAL) 2+ HYPOCHROMASIA (NORMAL) 1+ OVALOCYTES (NORMAL) 07/24/21 04:12 RBC Morph Micro Appear 2+ ANISOCYTOSIS (NORMAL) 2+ HYPOCHROMASIA (NORMAL) 1+ OVALOCYTES (NORMAL) 07/24/21 04:12 RBC Morph Micro Appear 2+ ANISOCYTOSIS (NORMAL) 2+ HYPOCHROMASIA (NORMAL) 1+ OVALOCYTES (NORMAL) 07/24/21 04:12 Bld Gas Analysis Time 0808 07/20/21 08:08 Sample Site LEFT RADIAL 07/20/21 08:08 ABG pH 7.39 (7.35-7.45) 07/20/21 08:08 ABG pCO2 45 mmHg (34-45) 07/20/21 08:08 ABG pO2 62 mmHg (80-100) L 07/20/21 08:08 ABG HCO3 26.3 mmol/L (22.0-26.0) H 07/20/21 08:08 ABG Total CO2 27.7 MMOL/L (21.0-29.0) 07/20/21 08:08 ABG O2 Saturation 91 % (94-98) L 07/20/21 08:08 ABG Base Excess 1.1 mmol/L (-2.0-3.0) 07/20/21 08:08 Ruperto Test POSITIVE 07/20/21 08:08 VBG pH 7.444 (7.31-7.41) H 07/24/21 04:12 Ionized Calcium 1.03 mmol/L (1.15-1.33) L 07/24/21 04:12 Respiration Rate 12 b/min 07/20/21 08:08 O2 Delivery Device VENTILATOR 07/20/21 08:08 O2 Liters/Min 4.50 LPM 07/17/21 18:35 Vent Mode AC/VC 07/20/21 08:08 FiO2 25.00 07/20/21 08:08 Tidal Volume 420 mL 07/20/21 08:08 PEEP 5 cmH2O 07/20/21 08:08 Pressure Support Vent 12 cmH2O 07/05/21 11:00 IPAP Not Reportable 06/27/21 05:43 Sodium 136 mmol/L (135-145) 07/24/21 04:12 Potassium 3.1 mmol/L (3.5-5.0) L 07/24/21 04:12 Chloride 97 mmol/L (101-111) L 07/24/21 04:12 Carbon Dioxide 27 mmol/L (21-32) 07/24/21 04:12 Anion Gap 12.0 (6-13) 07/24/21 04:12 BUN 14 mg/dL (6-20) 07/24/21 04:12 Creatinine 0.6 mg/dL (0.4-1.0) 07/24/21 04:12 Estimated GFR (MDRD) 96 (>89) 07/24/21 04:12 Glucose 125 mg/dL (70-100) H 07/24/21 04:12 POC Whole Bld Glucose 121 mg/dL (70 - 100) H 07/23/21 23:47 Lactic Acid 1.0 mmol/L (0.5-2.2) 07/21/21 12:54 Calcium 7.4 mg/dL (8.5-10.3) L 07/24/21 04:12 Ionized Calcium YES 07/04/21 04:43 Phosphorus 3.2 mg/dL (2.5-4.6) 07/24/21 04:12 Magnesium 1.7 mg/dL (1.7-2.8) 07/24/21 04:12 Iron 11 ug/dL (28-170) L 07/04/21 04:43 TIBC 115 ug/dL (250-450) L 07/04/21 04:43 % Saturation 10 % (20-50) L 07/04/21 04:43 Transferrin 82 mg/dL (192-382) L 07/04/21 04:43 Total Bilirubin 0.2 mg/dL (0.2-1.0) 07/19/21 05:50 Direct Bilirubin 0.2 mg/dL (0.1-0.5) 07/19/21 05:50 AST 96 IU/L (10-42) H 07/19/21 05:50 ALT 54 IU/L (10-60) 07/19/21 05:50 Alkaline Phosphatase 137 IU/L (42-121) H 07/19/21 05:50 Troponin I High Sens 121.5 ng/L (2.3-14.8) H* 07/18/21 06:51 C-Reactive Protein 7.1 mg/dL (0-1.0) H 07/04/21 04:43 B-Natriuretic Peptide 919 pg/mL (5-100) H 07/03/21 07:30 Total Protein 4.6 g/dL (6.7-8.2) L 07/19/21 05:50 Albumin 1.7 g/dL (3.2-5.5) L 07/19/21 05:50 Globulin 2.9 g/dL (2.1-4.2) 07/19/21 05:50 Albumin/Globulin Ratio 0.6 (1.0-2.2) L 07/17/21 07:50 Prealbumin 5 mg/dL (18-45) L 07/22/21 04:54 Triglycerides 69 mg/dL (-149) 07/19/21 05:50 Cholesterol 78 mg/dL (-199) 07/19/21 05:50 LDL Cholesterol, Calc 45 mg/dL (-129) 07/19/21 05:50 VLDL Cholesterol 14 mg/dL 07/19/21 05:50 HDL Cholesterol 19 mg/dL (60-) L 07/19/21 05:50 LDL/HDL Ratio 2.4 (<4.4) 07/19/21 05:50 Cholesterol/HDL Ratio 4.1 (<4.4) 07/19/21 05:50 Lipase 42 U/L (22-51) 06/26/21 14:26 TSH 3.29 uIU/mL (0.34-5.60) 07/02/21 04:42 Free T4 0.97 ng/dL (0.58-1.64) 07/02/21 04:42 Cortisol AM Sample 6.1 ug/dL 07/05/21 05:31 Urine Color YELLOW 06/26/21 22:51 Urine Clarity CLEAR (CLEAR) 06/26/21 22:51 Urine pH 5.0 PH (5.0-7.5) 06/26/21 22:51 Ur Specific [place] 1.015 (1.002-1.030) 06/26/21 22:51 Urine Protein NEGATIVE mg/dL (NEGATIVE) 06/26/21 22:51 Urine Glucose (UA) NEGATIVE mg/dL (NEGATIVE) 06/26/21 22:51 Urine Ketones NEGATIVE mg/dL (NEGATIVE) 06/26/21 22:51 Urine Occult Blood NEGATIVE (NEGATIVE) 06/26/21 22:51 Urine Nitrite NEGATIVE (NEGATIVE) 06/26/21 22:51 Urine Bilirubin NEGATIVE (NEGATIVE) 06/26/21 22:51 Urine Urobilinogen 0.2 (NORMAL) E.U./dL (NORMAL) 06/26/21 22:51 Ur Leukocyte Esterase TRACE (NEGATIVE) H 06/26/21 22:51 Urine RBC 0-5 /HPF (0-5) 06/26/21 22:51 Urine WBC 4-5 /HPF (0-5) 06/26/21 22:51 Ur Squamous Epith Cells FEW Squamous (<= Few) 06/26/21 22:51 Urine Bacteria Few /HPF (None Seen) 06/26/21 22:51 Urine Casts 3-5 Hyaline Casts /LPF 06/26/21 22:51 Ur Microscopic Review INDICATED 06/26/21 22:51 Urine Culture Comments INDICATED 06/26/21 22:51 Nasal Adenovirus (PCR) NOT DETECTED 07/14/21 16:00 Nasal B. parapertussis DNA (PCR) NOT DETECTED 07/14/21 16:00 Nasal Coronavir 229E PCR NOT DETECTED 07/14/21 16:00 Nasal Coronavir HKU1 PCR NOT DETECTED 07/14/21 16:00 Nasal Coronavir NL63 PCR NOT DETECTED 07/14/21 16:00 Nasal Coronavir OC43 PCR NOT DETECTED 07/14/21 16:00 Nasal Enterovir/Rhinovir PCR NOT DETECTED 07/14/21 16:00 Nasal Influenza B PCR NOT DETECTED 07/14/21 16:00 Nasal Influenza A PCR NOT DETECTED 07/14/21 16:00 Nasal Parainfluen 1 PCR NOT DETECTED 07/14/21 16:00 Nasal Parainfluen 2 PCR NOT DETECTED 07/14/21 16:00 Nasal Parainfluen 3 PCR NOT DETECTED 07/14/21 16:00 Nasal Parainfluen 4 PCR NOT DETECTED 07/14/21 16:00 Nasal RSV (PCR) NOT DETECTED 07/14/21 16:00 Nasal Screen MRSA (PCR) NEGATIVE (NEGATIVE) 06/26/21 21:55 Nasal B.pertussis DNA PCR NOT DETECTED 07/14/21 16:00 Nasal C.pneumoniae (PCR) NOT DETECTED 07/14/21 16:00 Mk Human Metapneumo PCR NOT DETECTED 07/14/21 16:00 Nasal M.pneumoniae (PCR) NOT DETECTED 07/14/21 16:00 Nasal SARS-CoV-2 (PCR) NOT DETECTED 07/14/21 16:00 Last Dose Date 07/19/2021 07/19/21 05:50 Last Dose Time 0100 07/19/21 05:50 Vancomycin Trough 16.8 ug/mL (10.0-20.0) 07/15/21 15:30 Digoxin 1.4 ng/mL 07/19/21 05:50 - Procedures Procedures: Procedures RESPIRATORY VENTILATION, LESS THAN 24 CONSECUTIVE HOURS (01/11/20) Sepsis Event Note (H) - Evaluation Current Stage of Sepsis: Septic shock Possible source of Sepsis: positive: GI tract/intra-abdominal - Sepsis Criteria Sepsis Criteria: WBC count greater than 10% bands, SBP drop more than 40mHg, MAP less than 65 mmHg, SBP less than 90 mmHg, Renal: urine output less than 0.5ml/kg/hr for 2 hours or creatinine gr, Metabolic: lactate > 2 mmol/L ABX Reporting Has patient been on IV antibiotics over the past 48 hours?: Yes
[2021-07-24] MEDS: GLYCOPYRROLATE 1 MG/5 ML VIAL SUBQ PRN ×2 (08:21→21:10)
[2021-07-24] MEDS: levoFLOXacin 750 MG/150 ML 750 MG/150 ML BAG IV SCH (09:53)
[2021-07-24] MEDS: DEXMEDETOMIDINE 1,000 MCG in SODIUM CHLORIDE 0.9% 240 ML IV PRN ×2 (09:53→17:09)
--- NOTE | 2021-07-24 11:58 | PROVIDER PROGRESS NOTE ---
Subjective - Prog Note Date Prog Note Date: 07/24/21 - Subjective Subjective: on vent. unresponsive Objective - Vital Signs/Intake & Output Reviewed Vital Signs: Yes Vital Signs: Vital Signs x48h Temp Pulse Pulse Resp BP Pulse Ox 07/24/21 10:13 74 07/24/21 10:00 75 12 118/51 L 100 07/24/21 09:03 113/55 L 07/24/21 09:00 74 12 100 07/24/21 08:24 90 07/24/21 08:00 36.6 C 70 16 115/59 L 99 07/24/21 07:00 69 15 118/52 L 98 07/24/21 06:00 70 12 133/61 H 99 07/24/21 05:33 88 07/24/21 05:00 70 6 L 132/54 H 99 07/24/21 04:00 37.6 C 72 14 135/56 H 99 Intake & Output: Intake & Output 07/21/21 07/22/21 07/23/21 07/24/21 23:59 23:59 23:59 23:59 Intake Total 4352.887 3118.821 4020.047 1980.395 Output Total 3518 4150 5195 2365 Balance 834.887 -1031.179 -1174.953 -384.605 - Objective General Appearance: positive: No acute distress Abdomen: positive: Non-tender, No distention, Other (incision well healed. drain scant serous) - Lab Results Fish Bones: 07/24/21 04:12 07/24/21 04:12 Other Labs: Lab Results x24hrs 07/24/21 07/24/21 07/24/21 Range/Units 11:38 04:12 04:12 WBC (4.8-10.8) x10^3/uL RBC (4.20-5.40) 10^6/uL Hgb (12.0-16.0) g/dL Hct (37.0-47.0) % MCV (81.0-99.0) fL MCH (27.0-31.0) pg MCHC (32.0-36.0) g/dL RDW (12.0-15.0) % Plt Count (130-450) 10^3/uL MPV (7.9-10.8) fL Neut # (Auto) Lymph # (Auto) [place] # (Auto) Eos # (Auto) Baso # (Auto) Absolute Nucleated RBC Total Counted Band Neuts % (Manual) (0 - 10) % Abnorm Lymph % (Manual) % Metamyelocytes % ( - 0) % Myelocytes % ( - 0) % Nucleated RBC % Neutrophils # (Manual) (1.5-6.6) 10^3/uL Lymphocytes # (Manual) (1.5-3.5) 10^3/uL Monocytes # (Manual) (0.0-1.0) 10^3/uL Eosinophils # (Manual) (0-0.7) 10^3/uL Basophils # (Manual) (0-0.1) 10^3/uL Differential Comment Platelet Estimate (NORMAL) RBC Morph Micro Appear (NORMAL) VBG pH 7.444 H (7.31-7.41) Ionized Calcium 1.03 L (1.15-1.33) mmol/L Sodium 136 (135-145) mmol/L Potassium 3.1 L (3.5-5.0) mmol/L Chloride 97 L (101-111) mmol/L Carbon Dioxide 27 (21-32) mmol/L Anion Gap 12.0 (6-13) BUN 14 (6-20) mg/dL Creatinine 0.6 (0.4-1.0) mg/dL Estimated GFR (MDRD) 96 (>89) Glucose 125 H (70-100) mg/dL POC Whole Bld Glucose 121 H (70 - 100) mg/dL Calcium 7.4 L (8.5-10.3) mg/dL Phosphorus 3.2 (2.5-4.6) mg/dL Magnesium 1.7 (1.7-2.8) mg/dL 07/24/21 07/23/21 07/23/21 Range/Units 04:12 23:47 23:18 WBC 6.7 (4.8-10.8) x10^3/uL RBC 3.24 L (4.20-5.40) 10^6/uL Hgb 9.5 L (12.0-16.0) g/dL Hct 29.3 L (37.0-47.0) % MCV 90.4 (81.0-99.0) fL MCH 29.3 (27.0-31.0) pg MCHC 32.4 (32.0-36.0) g/dL RDW 20.5 H (12.0-15.0) % Plt Count 153 (130-450) 10^3/uL MPV 12.6 H (7.9-10.8) fL Neut # (Auto) Not Reportable Lymph # (Auto) Not Reportable [place] # (Auto) Not Reportable Eos # (Auto) Not Reportable Baso # (Auto) Not Reportable Absolute Nucleated RBC Not Reportable Total Counted 100 Band Neuts % (Manual) 8 (0 - 10) % Abnorm Lymph % (Manual) 0 % Metamyelocytes % 1 H ( - 0) % Myelocytes % 1 H ( - 0) % Nucleated RBC % Not Reportable Neutrophils # (Manual) 3.4 (1.5-6.6) 10^3/uL Lymphocytes # (Manual) 2.5 (1.5-3.5) 10^3/uL Monocytes # (Manual) 0.5 (0.0-1.0) 10^3/uL Eosinophils # (Manual) 0.2 (0-0.7) 10^3/uL Basophils # (Manual) 0.0 (0-0.1) 10^3/uL Differential Comment MANUAL DIFFERENTIAL Platelet Estimate NORMAL (130-450,000) (NORMAL) RBC Morph Micro Appear 1+ OVALOCYTES (NORMAL) VBG pH 7.497 H (7.31-7.41) Ionized Calcium 1.00 L (1.15-1.33) mmol/L Sodium (135-145) mmol/L Potassium (3.5-5.0) mmol/L Chloride (101-111) mmol/L Carbon Dioxide (21-32) mmol/L Anion Gap (6-13) BUN (6-20) mg/dL Creatinine (0.4-1.0) mg/dL Estimated GFR (MDRD) (>89) Glucose (70-100) mg/dL POC Whole Bld Glucose 121 H (70 - 100) mg/dL Calcium (8.5-10.3) mg/dL Phosphorus (2.5-4.6) mg/dL Magnesium (1.7-2.8) mg/dL 07/23/21 07/23/21 07/23/21 Range/Units 19:40 18:04 15:45 WBC (4.8-10.8) x10^3/uL RBC (4.20-5.40) 10^6/uL Hgb (12.0-16.0) g/dL Hct (37.0-47.0) % MCV (81.0-99.0) fL MCH (27.0-31.0) pg MCHC (32.0-36.0) g/dL RDW (12.0-15.0) % Plt Count (130-450) 10^3/uL MPV (7.9-10.8) fL Neut # (Auto) Lymph # (Auto) [place] # (Auto) Eos # (Auto) Baso # (Auto) Absolute Nucleated RBC Total Counted Band Neuts % (Manual) (0 - 10) % Abnorm Lymph % (Manual) % Metamyelocytes % ( - 0) % Myelocytes % ( - 0) % Nucleated RBC % Neutrophils # (Manual) (1.5-6.6) 10^3/uL Lymphocytes # (Manual) (1.5-3.5) 10^3/uL Monocytes # (Manual) (0.0-1.0) 10^3/uL Eosinophils # (Manual) (0-0.7) 10^3/uL Basophils # (Manual) (0-0.1) 10^3/uL Differential Comment Platelet Estimate (NORMAL) RBC Morph Micro Appear (NORMAL) VBG pH 7.511 H (7.31-7.41) Ionized Calcium 1.02 L (1.15-1.33) mmol/L Sodium (135-145) mmol/L Potassium (3.5-5.0) mmol/L Chloride (101-111) mmol/L Carbon Dioxide (21-32) mmol/L Anion Gap (6-13) BUN (6-20) mg/dL Creatinine (0.4-1.0) mg/dL Estimated GFR (MDRD) (>89) Glucose (70-100) mg/dL POC Whole Bld Glucose 114 H (70 - 100) mg/dL Calcium (8.5-10.3) mg/dL Phosphorus 2.9 (2.5-4.6) mg/dL Magnesium (1.7-2.8) mg/dL 07/23/21 Range/Units 13:18 WBC (4.8-10.8) x10^3/uL RBC (4.20-5.40) 10^6/uL Hgb (12.0-16.0) g/dL Hct (37.0-47.0) % MCV (81.0-99.0) fL MCH (27.0-31.0) pg MCHC (32.0-36.0) g/dL RDW (12.0-15.0) % Plt Count (130-450) 10^3/uL MPV (7.9-10.8) fL Neut # (Auto) Lymph # (Auto) [place] # (Auto) Eos # (Auto) Baso # (Auto) Absolute Nucleated RBC Total Counted Band Neuts % (Manual) (0 - 10) % Abnorm Lymph % (Manual) % Metamyelocytes % ( - 0) % Myelocytes % ( - 0) % Nucleated RBC % Neutrophils # (Manual) (1.5-6.6) 10^3/uL Lymphocytes # (Manual) (1.5-3.5) 10^3/uL Monocytes # (Manual) (0.0-1.0) 10^3/uL Eosinophils # (Manual) (0-0.7) 10^3/uL Basophils # (Manual) (0-0.1) 10^3/uL Differential Comment Platelet Estimate (NORMAL) RBC Morph Micro Appear (NORMAL) VBG pH 7.574 H (7.31-7.41) Ionized Calcium 0.98 L (1.15-1.33) mmol/L Sodium (135-145) mmol/L Potassium (3.5-5.0) mmol/L Chloride (101-111) mmol/L Carbon Dioxide (21-32) mmol/L Anion Gap (6-13) BUN (6-20) mg/dL Creatinine (0.4-1.0) mg/dL Estimated GFR (MDRD) (>89) Glucose (70-100) mg/dL POC Whole Bld Glucose (70 - 100) mg/dL Calcium (8.5-10.3) mg/dL Phosphorus (2.5-4.6) mg/dL Magnesium (1.7-2.8) mg/dL Sepsis Event Note (H) - Evaluation Current Stage of Sepsis: Septic shock Possible source of Sepsis: positive: GI tract/intra-abdominal - Sepsis Criteria Sepsis Criteria: WBC count greater than 10% bands, SBP drop more than 40mHg, MAP less than 65 mmHg, SBP less than 90 mmHg, Renal: urine output less than 0.5ml/kg/hr for 2 hours or creatinine gr, Metabolic: lactate > 2 mmol/L Assessment/Plan - Problem List (1) Perforated duodenal ulcer Impression: benign abdomen. incision well healed. poor motility stomach and colon clinically and by imaging. spoke with her surgeon. ethics involvement prior to further invasive procedures recommended. I am in agreement with this
[2021-07-24 16:16] LABS: CALCIUM 7.4 mg/dL (8.5-10.3); MAGNESIUM 1.8 mg/dL (1.7-2.8); PHOSPHORUS 3.2 mg/dL (2.5-4.6)
[2021-07-24 16:29] LABS: CALCIUM, IONIZED 0.99 mmol/L (1.15-1.33); VBG PH 7.461 (7.31-7.41)
[2021-07-24] MEDS ORDERED: POTASSIUM CHLOR 20 MEQ/100 ML 20 MEQ/100 ML BAG IV ONE (16:47)
[2021-07-24] MEDS ORDERED: CALCIUM GLUCONATE 2,000 MG in SODIUM CHLORIDE 0.9% 100ML 100 ML IV ONE (17:30)
[2021-07-24] MEDS: TPN (CLINIMIX E 5/15) 2,000 ML with MULTIVITAMIN 10 ML, TRACE ELEMENTS 1 ML IV SCH ×3 (18:37)
[2021-07-24] MEDS: FAT EMUL/SOY/MCT/OLIV/FISH OIL 50 GM/250 ML BAG IV SCH (18:38)
[2021-07-24] MEDS: SODIUM CHLORIDE 0.9% 500 ML IV PRN (22:16)
[2021-07-25] MEDS: SODIUM CHLORIDE FLUSH 0.9% 10 ML SYRINGE IVP SCH ×4 (00:25→23:25)
[2021-07-25] MEDS: METOCLOPRAMIDE 10 MG/2 ML VIAL IVP SCH ×5 (00:25→23:20)
[2021-07-25] MEDS: fentaNYL 2,500 MCG/250 ML 2,500 MCG/250 ML BAG IV SCH ×5 (02:17→16:55)
[2021-07-25] MEDS: metroNIDAZOLE 500 MG/100 ML 500 MG/100 ML BAG IV SCH (03:43)
[2021-07-25] MEDS: DEXMEDETOMIDINE 1,000 MCG in SODIUM CHLORIDE 0.9% 240 ML IV PRN ×3 (04:31→22:41)
[2021-07-25] MEDS: HYDROmorphone 1 MG/ML CARPUJECT IVP PRN ×2 (05:01→12:17)
[2021-07-25] MEDS: SODIUM CHLORIDE FLUSH 0.9% 10 ML SYRINGE IVP PRN ×4 (05:03→18:50)
[2021-07-25 06:01] LABS: BASOPHILS % (AUTO) 0.3 %; EOSINOPHILS % (AUTO) 5.8 %; HCT - HEMATOCRIT 27.2 % (37.0-47.0); HGB - HEMOGLOBIN 8.5 g/dL (12.0-16.0); LYMPHOCYTES % (AUTO) 24.9 %; MEAN CORPUSCULAR HEMOGLOBIN 28.9 pg (27.0-31.0); MEAN CORPUSCULAR HGB CONC 31.3 g/dL (32.0-36.0); MEAN CORPUSCULAR VOLUME 92.5 fL (81.0-99.0); MEAN PLATELET VOLUME 12.3 fL (7.9-10.8); MONOCYTES % (AUTO) 6.9 %; NEUTROPHILS % (AUTO) 60.3 %; PLT - PLATELET COUNT 165 10^3/uL (130-450); RED BLOOD COUNT 2.94 10^6/uL (4.20-5.40); RED CELL DISTRIBUTION WIDTH 20.8 % (12.0-15.0); WHITE BLOOD COUNT 6.1 x10^3/uL (4.8-10.8)
[2021-07-25 06:05] LABS: ABNORMAL LYMPHS % (MANUAL) 0 %
[2021-07-25 06:08] LABS: CALCIUM, IONIZED 1.02 mmol/L (1.15-1.33); VBG PH 7.462 (7.31-7.41)
[2021-07-25 06:14] LABS: CALCIUM 7.1 mg/dL (8.5-10.3); CREATININE 0.5 mg/dL (0.4-1.0); MAGNESIUM 1.9 mg/dL (1.7-2.8); PHOSPHORUS 2.9 mg/dL (2.5-4.6); POTASSIUM 2.9 mmol/L (3.5-5.0)
[2021-07-25] MEDS: LEVOTHYROXINE 100 MCG VIAL IVP SCH (06:34)
[2021-07-25] MEDS: PANTOPRAZOLE 40 MG VIAL IVP SCH (06:34)
[2021-07-25] MEDS: POTASSIUM CHLOR 20 MEQ/100 ML 20 MEQ/100 ML BAG IV SCH ×5 (06:34→22:36)
[2021-07-25] MEDS ORDERED: CALCIUM GLUCONATE 1,000 MG in SODIUM CHLORIDE 0.9% 50 ML IV ONE (07:00)
[2021-07-25 07:27] LABS: BAND NEUTROPHILS % (MANUAL) 2 %; EOSINOPHILS # (MANUAL) 0.4 10^3/uL (0-0.7); LYMPHOCYTES % (MANUAL) 16 %; MONOCYTES # (MANUAL) 0.7 10^3/uL (0.0-1.0)
[2021-07-25 07:28] LABS: DIFFERENTIAL COMMENT MANUAL DIFFERENTIAL
--- NOTE | 2021-07-25 07:56 | PROVIDER PROGRESS NOTE ---
Subjective - Subjective Subjective: unresponsive, agitated appearing Objective - Vital Signs/Intake & Output Vital Signs: Vital Signs x48h Temp Pulse Pulse Resp BP Pulse Ox 07/25/21 07:00 70 12 96/43 L 100 07/25/21 06:00 70 12 107/50 L 100 07/25/21 05:35 71 07/25/21 05:00 70 23 111/93 H 100 07/25/21 04:43 37 C 07/25/21 04:00 70 13 99/56 L 99 07/25/21 03:30 70 07/25/21 03:00 70 11 L 80/61 L 99 07/25/21 02:00 70 13 117/52 L 100 07/25/21 01:40 70 07/25/21 01:00 70 12 104/70 100 07/25/21 00:27 36.4 C L 07/25/21 00:10 70 106/56 L 07/25/21 00:05 70 106/44 L 07/25/21 00:00 70 15 100 Intake & Output: Intake & Output 07/22/21 07/23/21 07/24/21 07/25/21 23:59 23:59 23:59 23:59 Intake Total 3118.821 4020.047 4198.679 1672.508 Output Total 4150 5195 4695 375 Balance -1031.179 -1174.953 -734.639 3423.508 - Objective General Appearance: positive: Mild distress Abdomen: positive: Non-tender, No distention, Other (drain removed) - Lab Results Fish Bones: 07/25/21 04:33 07/25/21 04:33 Other Labs: Lab Results x24hrs 07/25/21 07/25/21 07/25/21 Range/Units 04:33 04:33 04:33 WBC 6.1 (4.8-10.8) x10^3/uL RBC 2.94 L (4.20-5.40) 10^6/uL Hgb 8.5 L (12.0-16.0) g/dL Hct 27.2 L (37.0-47.0) % MCV 92.5 (81.0-99.0) fL MCH 28.9 (27.0-31.0) pg MCHC 31.3 L (32.0-36.0) g/dL RDW 20.8 H (12.0-15.0) % Plt Count 165 (130-450) 10^3/uL MPV 12.3 H (7.9-10.8) fL Neut # (Auto) Not Reportable Lymph # (Auto) Not Reportable Bureau # (Auto) Not Reportable Eos # (Auto) Not Reportable Baso # (Auto) Not Reportable Absolute Nucleated RBC Not Reportable Total Counted 100 Band Neuts % (Manual) 2 (0 - 10) % Abnorm Lymph % (Manual) 0 % Nucleated RBC % Not Reportable Neutrophils # (Manual) 4.0 (1.5-6.6) 10^3/uL Lymphocytes # (Manual) 1.0 L (1.5-3.5) 10^3/uL Monocytes # (Manual) 0.7 (0.0-1.0) 10^3/uL Eosinophils # (Manual) 0.4 (0-0.7) 10^3/uL Basophils # (Manual) 0.0 (0-0.1) 10^3/uL Differential Comment MANUAL DIFFERENTIAL VBG pH 7.462 H (7.31-7.41) Ionized Calcium 1.02 L (1.15-1.33) mmol/L Sodium 136 (135-145) mmol/L Potassium 2.9 L (3.5-5.0) mmol/L Chloride 98 L (101-111) mmol/L Carbon Dioxide 29 (21-32) mmol/L Anion Gap 9.0 (6-13) BUN 10 (6-20) mg/dL Creatinine 0.5 (0.4-1.0) mg/dL Estimated GFR (MDRD) 119 (>89) Glucose 163 H (70-100) mg/dL POC Whole Bld Glucose (70 - 100) mg/dL Calcium 7.1 L (8.5-10.3) mg/dL Phosphorus 2.9 (2.5-4.6) mg/dL Magnesium 1.9 (1.7-2.8) mg/dL 07/24/21 07/24/21 07/24/21 Range/Units 23:40 18:12 15:55 WBC (4.8-10.8) x10^3/uL RBC (4.20-5.40) 10^6/uL Hgb (12.0-16.0) g/dL Hct (37.0-47.0) % MCV (81.0-99.0) fL MCH (27.0-31.0) pg MCHC (32.0-36.0) g/dL RDW (12.0-15.0) % Plt Count (130-450) 10^3/uL MPV (7.9-10.8) fL Neut # (Auto) Lymph # (Auto) [place] # (Auto) Eos # (Auto) Baso # (Auto) Absolute Nucleated RBC Total Counted Band Neuts % (Manual) (0 - 10) % Abnorm Lymph % (Manual) % Nucleated RBC % Neutrophils # (Manual) (1.5-6.6) 10^3/uL Lymphocytes # (Manual) (1.5-3.5) 10^3/uL Monocytes # (Manual) (0.0-1.0) 10^3/uL Eosinophils # (Manual) (0-0.7) 10^3/uL Basophils # (Manual) (0-0.1) 10^3/uL Differential Comment VBG pH 7.461 H (7.31-7.41) Ionized Calcium 0.99 L (1.15-1.33) mmol/L Sodium (135-145) mmol/L Potassium (3.5-5.0) mmol/L Chloride (101-111) mmol/L Carbon Dioxide (21-32) mmol/L Anion Gap (6-13) BUN (6-20) mg/dL Creatinine (0.4-1.0) mg/dL Estimated GFR (MDRD) (>89) Glucose (70-100) mg/dL POC Whole Bld Glucose 147 H 120 H (70 - 100) mg/dL Calcium (8.5-10.3) mg/dL Phosphorus (2.5-4.6) mg/dL Magnesium (1.7-2.8) mg/dL 07/24/21 07/24/21 07/24/21 Range/Units 15:55 15:55 11:38 WBC (4.8-10.8) x10^3/uL RBC (4.20-5.40) 10^6/uL Hgb (12.0-16.0) g/dL Hct (37.0-47.0) % MCV (81.0-99.0) fL MCH (27.0-31.0) pg MCHC (32.0-36.0) g/dL RDW (12.0-15.0) % Plt Count (130-450) 10^3/uL MPV (7.9-10.8) fL Neut # (Auto) Lymph # (Auto) [place] # (Auto) Eos # (Auto) Baso # (Auto) Absolute Nucleated RBC Total Counted Band Neuts % (Manual) (0 - 10) % Abnorm Lymph % (Manual) % Nucleated RBC % Neutrophils # (Manual) (1.5-6.6) 10^3/uL Lymphocytes # (Manual) (1.5-3.5) 10^3/uL Monocytes # (Manual) (0.0-1.0) 10^3/uL Eosinophils # (Manual) (0-0.7) 10^3/uL Basophils # (Manual) (0-0.1) 10^3/uL Differential Comment VBG pH (7.31-7.41) Ionized Calcium (1.15-1.33) mmol/L Sodium (135-145) mmol/L Potassium 3.6 (3.5-5.0) mmol/L Chloride (101-111) mmol/L Carbon Dioxide (21-32) mmol/L Anion Gap (6-13) BUN (6-20) mg/dL Creatinine (0.4-1.0) mg/dL Estimated GFR (MDRD) (>89) Glucose (70-100) mg/dL POC Whole Bld Glucose 121 H (70 - 100) mg/dL Calcium 7.4 L (8.5-10.3) mg/dL Phosphorus 3.2 (2.5-4.6) mg/dL Magnesium 1.8 (1.7-2.8) mg/dL Sepsis Event Note (H) - Evaluation Current Stage of Sepsis: Septic shock Possible source of Sepsis: positive: GI tract/intra-abdominal - Sepsis Criteria Sepsis Criteria: WBC count greater than 10% bands, SBP drop more than 40mHg, MAP less than 65 mmHg, SBP less than 90 mmHg, Renal: urine output less than 0.5ml/kg/hr for 2 hours or creatinine gr, Metabolic: lactate > 2 mmol/L
--- NOTE | 2021-07-25 08:02 | PROVIDER PROGRESS NOTE ---
Assessment/Plan - Problem List (1) Acute respiratory failure requiring reintubation Assessment/Plan: 07/25/21 Patient more restless on the vent today. She continues to be afebrile. White blood cell count normal. Day #8 of third intubation Consulted Dr. Tobi Adrian for a second opinion today 07/25/21. Please refer to his consult note for more details Following his recommendations, the following changes have been made: Titrating down and weaning patient off fentanyl Titrating down and weaning of levophed as blood pressure tolerates Continue sedation with Precedex only Initiated Lubiprostone 24mcg bid. Plan to allow about 2 days of lubiprostone while off opiates to see if there will be improved gut motility Only after gut motility is restored can a J-tube be placed. Dr Adrian can do a trache and j-tube at that time 07/24/21 No change in patient's clinical condition. Stable on vent. Afebrile. White blood cell count normal. Day #7 of third intubation. Continuing sedation with fentanyl and Precedex. Attempted to transfer patient to [facility] today was unsuccessful due to no bed availability. 07/23/21 Patient has been stable on the vent. She continues to be afebrile for a second day. Her white blood cell count today was normal. This is day #6 of the third intubation. Overall patient has been intubated for over 21 days. Continue sedation with fentanyl and precedex We will continue to attempt to transfer patient to another facility for higher level of care. Attempts to date have been unsuccessful. I had a conversation with the patient's niece Larissa who is a nurse and the patient's sister Katlin at bedside. I summarized and presented her clinical condition. They expressed understanding and asked follow-up questions. They understand that she is vent dependent having failed extubation attempts a couple of times, aspirating and having difficulties managing her secretions. She requested that I talk to another physician for a second opinion. I spoke with Dr. Aline Dobson who was agreeable to discuss with the patient's niece. I will also present the case to and library director at a higher level of care facility for any insight. 07/22/21 No significant change in patient's clinical status This is day #5 of the third intubation. Overall patient has been intubated for over 21 days. Continue sedation with fentanyl and precedex We will continue to attempt to transfer patient to another facility for higher level of care. Attempts to date have been unsuccessful. The patient's caregiver (Henny) was at bedside at time of exam. I again summarized the overall picture highlighting that there was no progress/improvement in patient's overall clinical condition. I attempted to highlight patient's poor prognosis. It has been a difficult balance continuing nutrition with high intravenous volumes versus managing patient's anasarca even while keeping intravascular pressures adequate. I shared my opinion that the patient's quality of life was currently poor. A point Henny disagrees with, countering that as long as there is life, that is value for which we should continue care. She took my input under advisement but made no change to current plan of care which includes continung antimicrobial, pressors, vent support and also involves transferring patient. 07/21/21 No significant change in patient's clinical status This is day #4 of the third intubation. Overall patient has been intubated for over 21 days. Continue sedation with fentanyl and precedex We will continue to attempt to transfer patient to another facility for higher level of care. Attempts to date have been unsuccessful. 07/20/21 No significant change in patient's clinical status This is day #3 of the third intubation. Overall patient has been intubated for over 21 days. Continue sedation with fentanyl and precedex. ABG done today showed pH 7.39 PCO2 45 PO2 62 Bicarbonate 26.3. We will continue to attempt to transfer patient to another facility for higher level of care. 07/19/21 This is day #2 of the third intubation. Overall patient has been intubated for over 21 days. Continue sedation with fentanyl. ABG done today showed pH 7.46 PCO2 39 PO2 211 aBicarbonate 27. This was on an FiO2 of 30, AC VC mode, tidal volume 450, Respiratory rate 12,PEEP 5, We will continue to attempt to transfer patient to another facility for higher level of care. 07/18/21 Patient was extubated around 9 AM on 07/17/2021. This was the 7 days since re-intubation. She seemed to be maintaining/protecting her airway through the course of the morning into the afternoon. In the course of being cleaned/changed mid-afternoon, she vomited a significant amount of tube feed, By 6 PM on 07/17/2021ppeared less responsive. She was also very diaphoretic and appeared to be in respiratory distress. While she had only required 2 L of oxygen via nasal cannula to keep her oxygen saturation in the high 90s during the day, her oxygen requirement increased significantly. An ABG was done which showed 1.15, PCO2 79, PO2 69. Chest x-ray Around 7 PM on 07/17/2021 showed bibasilar airspace opacities suspicious for aspiration versus pneumonia. Cephalization of pulmonary vasculature and perihilar opacities compatible with pulmonary edema The patient's caregiver Henny was at bedside and wished for re-intubation. Her sister Katie Massey (DPOA) has given approval for Henny's input into the patient's medical decision As a result the patient was re-intubated. Based on previous conversations and discussion around the time of this reintubation the indication would be for a trach and PEG. On 07/18/2021 I further discussed with Henny regarding the patient's quality of life with placement of a trach and PEG considering that she will be vent dependent indefinitely and also be at risk of aspirations. I mentioned consideration for palliative or hospice care. Henny and Katie Massey wish to proceed with a trach and PEG. I have reached out to [facility] in [place], [facility] in [place] and [facility] in [place] however these hospitals are currently at capacity. The placed her name on the list and will contact me once there is an availability. Yesterday after intubation the patient was sedated with propofol. This was changed to fentanyl and Precedex today 07/18/2021 to permit continua tion of patient's TPN. ABG at 9 AM today showed pH 7.46, PCO2 37, PO2 101 and bicarb 25.4. The patient was on an FiO2 of 35%, assist control mode, tidal volume 420 PEEP 5. FiO2 was decreased to 30 and respiratory rate was decreased from 18 to 16 She is on norepinephrine. Patient was placed on Flagyl due to aspiration. She remains afebrile. White blood cell count is normal at 6.2 (2) On mechanically assisted ventilation Assessment/Plan: No significant change in patient's clinical status This is day #8 of the third intubation. Overall patient has been intubated for over 21 days. Weaning off fentanyl. Continue precedex (3) Aspiration pneumonia Assessment/Plan: Flagyl, Levaquin and Diflucan discontinued on 07/25/21 (4) Septic shock Assessment/Plan: Improved/resolved. Secondary to aspiration pneumonia. Flagyl, Levaquin and Diflucan discontinued on 07/25/21 (5) Ileus following gastrointestinal surgery Assessment/Plan: NG tube draining bilious looking secretions. On Reglan 5 mg IV every 6 hours scheduled. No bowel movement in 6 days. Abdominal x-ray done 07/23/21 showed persistent enteric contrast, compatible with delayed transit. Weaning off fentanyl today 07/25/21 Lubiprostone 24mcg po bid added to regimen (6) Anasarca Assessment/Plan: Improvement in swelling (especially in upper extremities) On Lasix 60 mg IV twice daily. TPN resumed 07/24/2021 at half rate (7) Chronic diastolic heart failure Assessment/Plan: Echo December 2019 had ejection fraction of 65 to 70%. Mild tricuspid regurgitation. RVSP was 43 mmHg. Echo January 2020 had ejection fraction of 55 to 60%. Echocardiogram done June 27, 2021 has an ejection fraction of 40 to 45% and her systolic function is globally impaired. Right ventricular pacing evident. Was placed in September 2020? Mild to moderate right ventricular enlargement. Moderate to severe mitral regurgitation. Moderate LAE, severe ORI. BNP 07/25/21 was 346. Will not repeat a 2D echo Lasix decreased to 40mg IV bid (8) Perforated duodenal ulcer Assessment/Plan: Postop day #29. Status post ex lap with repair of posterior duodenal ulcer General surgery following. No bowel movement in 6 days. NG tube to suction Tube feed initiated in the morning on 07/17/21 at 25ml/hr Tube feed discontinued later in the day on 07/17/21 due to aspiration. TPN held 07/21/2021 due to extensive anasarca TPN resumed 07/24/2021 at half rate. (9) Hypothyroidism Assessment/Plan: On Synthroid 130 mcg IV Mondays and . TSH on 07/25/21 was 3.87 (10) History of atrial fibrillation Assessment/Plan: Rate controlled. Not on any medication. (11) History of pulmonary embolism Assessment/Plan: On Lovenox 40 mg subcu daily and SCD's for DVT prophylaxis. (12) Schizophrenia Assessment/Plan: Seroquel discontinued while patient is receiving Reglan for ileus. (13) Iron deficiency anemia Assessment/Plan: Hemoglobin stable. We will continue to monitor. - Current Meds Current Meds: Current Medications Generic Name Dose Route Start Last Admin Trade Name Freq PRN Reason Stop Dose Admin Acetaminophen 650 mg 07/17/21 11:05 07/21/21 10:00 Acetaminophen 325 Mg Tablet PO 650 mg Q6HR PRN Administration Pain or Fever > 38C (100.4F) Bisacodyl 10 mg 07/14/21 09:00 07/24/21 08:19 Bisacodyl 10 Mg Supp [place] 10 mg DAILY JULIETA Administration Chlorhexidine Gluconate 15 ml 06/27/21 21:00 07/24/21 21:10 Chlorhexidine Gluconate 15 Ml Udc PO 15 ml BID JULIETA Administration Enoxaparin Sodium 40 mg 06/28/21 09:00 07/24/21 08:19 Enoxaparin 40 Mg/0.4 Ml Syringe SUBQ 40 mg DAILY JULIETA Administration Furosemide 60 mg 07/20/21 15:00 07/24/21 14:19 Furosemide 40 Mg/4 Ml Vial IVP 60 mg BIDDIURETIC JULIETA Administration Glycopyrrolate 0.2 mg 06/28/21 21:17 07/24/21 21:10 Glycopyrrolate 1 Mg/5 Ml Vial SUBQ 0.2 mg Q6H PRN Administration Excessive Secretions Hydromorphone HCl 1 mg 07/18/21 09:27 07/25/21 05:01 Hydromorphone 1 Mg/Ml Carpuject IVP 1 mg Q2H PRN Administration PAIN Sodium Chloride 500 mls @ 20 mls/hr 06/26/21 23:03 07/25/21 07:00 Normal Saline 0.9% IV 20 mls/hr Q24H PRN Infusion TKO RATE Multivitamins 10 ml/ TRACE 2,011 mls @ 41 mls/hr 06/27/21 19:00 07/25/21 07:00 ELEMENTS 1 ml/ Amino Ac/ IV 41 mls/hr Electrol/Dextrose/Calcium Q24H JULIETA Infusion Protocol Norepinephrine Bitartrate 8 mg 250 mls @ 15 mls/hr 07/10/21 12:00 07/25/21 07:00 / Dextrose IV 4 mcg/min .[id number] JULIETA 7.5 mls/hr Titration Protocol 8 MCG/MIN Fentanyl 2,500 mcg in 250 mls @ 8.65 mls/hr 07/18/21 12:30 07/25/21 07:00 Fentanyl IV 9 mcg/kg/hr .[id number] JULIETA 77.85 mls/hr Titration Protocol 1 MCG/KG/HR Dexmedetomidine HCl 1,000 mcg/ 250 mls @ 32.438 mls/hr 07/22/21 13:30 07/25/21 07:00 Sodium Chloride IV 1.3 mcg/kg/hr .Q7H43M PRN 28.113 mls/hr Agitation Titration Protocol 1.5 MCG/KG/HR Fat Emulsion-Soy/MCT/[place]/Fish Oil 50 gm in 250 mls @ 21 mls/hr 07/24/21 19:0 0 07/25/21 07:00 Smoflipid 20% Iv Fat Emulsion IV Infused 1900 JULIETA Infusion Potassium Chloride 20 meq in 100 mls @ 100 mls/hr 07/25/21 07:00 07/25/21 07:40 Potassium Chloride IV 07/25/21 09:59 100 mls/hr Q1H JULIETA Administration Protocol Calcium Gluconate 1,000 mg/ 60 mls @ 50 mls/hr 07/25/21 07:00 07/25/21 08:00 Sodium Chloride IV 07/25/21 08:11 Infused ONCE ONE Infusion Protocol Levothyroxine Sodium 130 mcg 07/12/21 12:00 07/25/21 06:34 Levothyroxine 100 Mcg Vial IVP 130 mcg MoTh@0700 JULIETA Administration Metoclopramide HCl 5 mg 07/23/21 12:00 07/25/21 06:34 Metoclopramide 10 Mg/2 Ml Vial IVP 5 mg Q6HR JULIETA Administration Mineral Oil 1 applic 07/01/21 01:24 07/06/21 20:24 Min Oil/Dimethicon/Coconut Oil 92 Gm Tube TOP 1 ea PRN PRN Administration Skin Care Pantoprazole Sodium 40 mg 06/27/21 07:00 07/25/21 06:34 Pantoprazole 40 Mg Vial IVP 40 mg QDAC JULIETA Administration Phenol/Menthol 2 sprays 07/05/21 21:24 07/07/21 11:03 Phenol Throat Datto 177 Ml MM 2 sprays Q2HR PRN Administration Throat Pain Scopolamine HBr 1 patch 07/20/21 19:00 07/23/21 18:18 Scopolamine Patch TOP 1 patch Q3D JULIETA Administration Sodium Chloride 10 ml 06/27/21 01:00 07/25/21 00:25 Sodium Chloride Flush 0.9% 10 Ml Syringe IVP 10 ml 0100,0900,1700 JULIETA Administration Sodium Chloride 10 ml 06/26/21 20:54 07/25/21 06:34 Sodium Chloride Flush 0.9% 10 Ml Syringe IVP 10 ml PRN PRN Administration NEEDED PER PROVIDER ORDERS Sodium Chloride 20 ml 06/26/21 23:03 07/25/21 05:03 Sodium Chloride Flush 0.9% 10 Ml Syringe IVP 20 ml PRN PRN Administration After Blood Draw - Lab Result Fish Bone Diagrams: 07/25/21 04:33 07/25/21 04:33 - Additional Planning My Orders: My Active Orders 07/24/21 19:00 Fat Emul/Soy/Mct/Oliv/Fish Oil [Smoflipid 20% IV Fat Emulsion] 50 gm in 250 ml IV 1900 07/26/21 05:00 BMP - BASIC METABOLIC PANEL [CHEM] DAILYLAB CBC - COMP BLD CT W/AUTO DIFF [HEME] DAILYLAB 07/27/21 05:00 BMP - BASIC METABOLIC PANEL [CHEM] DAILYLAB CBC - COMP BLD CT W/AUTO DIFF [HEME] DAILYLAB 07/28/21 05:00 BMP - BASIC METABOLIC PANEL [CHEM] DAILYLAB CBC - COMP BLD CT W/AUTO DIFF [HEME] DAILYLAB 07/29/21 05:00 BMP - BASIC METABOLIC PANEL [CHEM] DAILYLAB CBC - COMP BLD CT W/AUTO DIFF [HEME] DAILYLAB Subjective - Subjective Patient Reports: Other (Currently sedated and intubated. Patient was more restl ess today than previous days.) Objective Vital Signs: Vital Signs - 24 hr 07/24/21 07/24/21 07/24/21 08:24 09:00 09:03 Temperature Heart Rate 90 Heart Rate [ 74 Monitoring electrodes] Respiratory 12 Rate Blood Pressure 113/55 L [Left Brachial artery] O2 Saturation 100 07/24/21 07/24/21 07/24/21 10:00 10:13 11:00 Temperature Heart Rate 74 Heart Rate [ 75 74 Monitoring electrodes] Respiratory 12 16 Rate Blood Pressure 118/51 L 118/57 L [Left Brachial artery] O2 Saturation 100 98 07/24/21 07/24/21 07/24/21 12:00 12:37 13:00 Temperature 36.7 C Heart Rate 74 Heart Rate [ 75 72 Monitoring electrodes] Respiratory 15 16 Rate Blood Pressure 125/60 120/52 L [Left Brachial artery] O2 Saturation 98 98 07/24/21 07/24/21 07/24/21 14:00 15:00 15:06 Temperature Heart Rate 78 Heart Rate [ 72 72 Monitoring electrodes] Respiratory 14 14 Rate Blood Pressure 122/58 L 120/52 L [Left Brachial artery] O2 Saturation 100 100 07/24/21 07/24/21 07/24/21 15:46 16:00 17:00 Temperature 36.8 C 36.8 C Heart Rate Heart Rate [ 70 81 Monitoring electrodes] Respiratory 13 14 Rate Blood Pressure 131/54 H 117/48 L [Left Brachial artery] O2 Saturation 100 100 07/24/21 07/24/21 07/24/21 17:10 18:00 19:00 Temperature Heart Rate 84 Heart Rate [ 77 84 Monitoring electrodes] Respiratory 16 15 Rate Blood Pressure 122/59 L 95/57 L [Left Brachial artery] O2 Saturation 100 100 07/24/21 07/24/21 07/24/21 19:35 20:00 21:00 Temperature 36.9 C Heart Rate 76 Heart Rate [ 78 72 Monitoring electrodes] Respiratory 14 13 Rate Blood Pressure 119/59 L 127/58 L [Left Brachial artery] O2 Saturation 100 100 07/24/21 07/24/21 07/24/21 21:19 21:20 21:25 Temperature Heart Rate Heart Rate [ 84 70 70 Monitoring electrodes] Respiratory Rate Blood Pressure 139/53 H 126/52 L 116/46 L [Left Brachial artery] O2 Saturation 07/24/21 07/24/21 07/24/21 21:30 21:35 21:45 Temperature Heart Rate 70 Heart Rate [ 70 70 70 Monitoring electrodes] Respiratory Rate Blood Pressure 111/44 L 115/46 L 104/44 L [Left Brachial artery] O2 Saturation 07/24/21 07/24/21 07/24/21 22:00 22:15 22:28 Temperature Heart Rate Heart Rate [ 70 70 75 Monitoring electrodes] Respiratory 12 Rate Blood Pressure 113/49 L 114/49 L 101/37 L [Left Brachial artery] O2 Saturation 100 07/24/21 07/24/21 07/24/21 22:31 23:00 23:15 Temperature Heart Rate Heart Rate [ 76 70 70 Monitoring electrodes] Respiratory 17 Rate Blood Pressure 94/43 L 91/40 L 98/39 L [Left Brachial artery] O2 Saturation 99 07/24/21 07/25/21 07/25/21 23:25 00:00 00:05 Temperature Heart Rate 70 Heart Rate [ 70 70 Monitoring electrodes] Respiratory 15 Rate Blood Pressure 106/44 L [Left Brachial artery] O2 Saturation 100 07/25/21 07/25/21 07/25/21 00:10 00:27 01:00 Temperature 36.4 C L Heart Rate Heart Rate [ 70 70 Monitoring electrodes] Respiratory 12 Rate Blood Pressure 106/56 L 104/70 [Left Brachial artery] O2 Saturation 100 07/25/21 07/25/21 07/25/21 01:40 02:00 03:00 Temperature Heart Rate 70 Heart Rate [ 70 70 Monitoring electrodes] Respiratory 13 11 L Rate Blood Pressure 117/52 L 80/61 L [Left Brachial artery] O2 Saturation 100 99 07/25/21 07/25/21 07/25/21 03:30 04:00 04:43 Temperature 37 C Heart Rate 70 Heart Rate [ 70 Monitoring electrodes] Respiratory 13 Rate Blood Pressure 99/56 L [Left Brachial artery] O2 Saturation 99 07/25/21 07/25/21 07/25/21 05:00 05:35 06:00 Temperature Heart Rate 71 Heart Rate [ 70 70 Monitoring electrodes] Respiratory 23 12 Rate Blood Pressure 111/93 H 107/50 L [Left Brachial artery] O2 Saturation 100 100 07/25/21 07:00 Temperature Heart Rate Heart Rate [ 70 Monitoring electrodes] Respiratory 12 Rate Blood Pressure 96/43 L [Left Brachial artery] O2 Saturation 100 Oxygen O2 Source Mechanical ventilator I&O (Last 24 Hrs): Intake and Output Totals x24h 07/23/21 07/24/21 07/25/21 23:59 23:59 23:59 Intake Total 4020.047 4198.679 1732.508 Output Total 5195 4695 375 Balance -1174.953 -204.538 7621.508 Comments/Notes: General: Other (Intubated, sedated, restless, resting comfortably) HEENT: PERRLA, EOMI Neck: Supple Neuro: Other (Sedated and intubated) Cardiovascular: Regular rate, Normal S1, Normal S2 Respiratory: Chest non-tender, No respiratory distress, Rhonchi (bilaterally) Abdomen: Normal bowel sounds, Soft Extremities: Other ([place] decreased) Skin: No rashes, No breakdown, No significant lesion - Results Results: Laboratory Results WBC 6.1 x10^3/uL (4.8-10.8) 07/25/21 04:33 RBC 2.94 10^6/uL (4.20-5.40) L 07/25/21 04:33 Hgb 8.5 g/dL (12.0-16.0) L 07/25/21 04:33 Hct 27.2 % (37.0-47.0) L 07/25/21 04:33 MCV 92.5 fL (81.0-99.0) 07/25/21 04:33 MCH 28.9 pg (27.0-31.0) 07/25/21 04:33 MCHC 31.3 g/dL (32.0-36.0) L 07/25/21 04:33 RDW 20.8 % (12.0-15.0) H 07/25/21 04:33 Plt Count 165 10^3/uL (130-450) 07/25/21 04:33 MPV 12.3 fL (7.9-10.8) H 07/25/21 04:33 Neut # (Auto) Not Reportable 07/25/21 04:33 Lymph # (Auto) Not Reportable 07/25/21 04:33 [place] # (Auto) Not Reportable 07/25/21 04:33 Eos # (Auto) Not Reportable 07/25/21 04:33 Baso # (Auto) Not Reportable 07/25/21 04:33 Absolute Nucleated RBC Not Reportable 07/25/21 04:33 Total Counted 100 07/25/21 04:33 Band Neuts % (Manual) 2 % (0-10) 07/25/21 04:33 Abnorm Lymph % (Manual) 0 % 07/25/21 04:33 Metamyelocytes % 1 % (-0) H 07/24/21 04:12 Myelocytes % 1 % (-0) H 07/24/21 04:12 Nucleated RBC % Not Reportable 07/25/21 04:33 Neutrophils # (Manual) 4.0 10^3/uL (1.5-6.6) 07/25/21 04:33 Lymphocytes # (Manual) 1.0 10^3/uL (1.5-3.5) L 07/25/21 04:33 Monocytes # (Manual) 0.7 10^3/uL (0.0-1.0) 07/25/21 04:33 Eosinophils # (Manual) 0.4 10^3/uL (0-0.7) 07/25/21 04:33 Basophils # (Manual) 0.0 10^3/uL (0-0.1) 07/25/21 04:33 Differential Comment MANUAL DIFFERENTIAL 07/25/21 04:33 Manual Slide Review Indicated 07/18/21 06:20 WBC Morphology NORMAL APPEARANCE (NORMAL) 07/23/21 04:51 Platelet Estimate NORMAL (130-450,000) (NORMAL) 07/24/21 04:12 Platelet Morphology NORMAL APPEARANCE (NORMAL) 07/23/21 04:51 RBC Morph Micro Appear 2+ ANISOCYTOSIS (NORMAL) 2+ HYPOCHROMASIA (NORMAL) 1+ OVALOCYTES (NORMAL) 07/24/21 04:12 RBC Morph Micro Appear 2+ ANISOCYTOSIS (NORMAL) 2+ HYPOCHROMASIA (NORMAL) 1+ OVALOCYTES (NORMAL) 07/24/21 04:12 RBC Morph Micro Appear 2+ ANISOCYTOSIS (NORMAL) 2+ HYPOCHROMASIA (NORMAL) 1+ OVALOCYTES (NORMAL) 07/24/21 04:12 Bld Gas Analysis Time 0808 07/20/21 08:08 Sample Site LEFT RADIAL 07/20/21 08:08 ABG pH 7.39 (7.35-7.45) 07/20/21 08:08 ABG pCO2 45 mmHg (34-45) 07/20/21 08:08 ABG pO2 62 mmHg (80-100) L 07/20/21 08:08 ABG HCO3 26.3 mmol/L (22.0-26.0) H 07/20/21 08:08 ABG Total CO2 27.7 MMOL/L (21.0-29.0) 07/20/21 08:08 ABG O2 Saturation 91 % (94-98) L 07/20/21 08:08 ABG Base Excess 1.1 mmol/L (-2.0-3.0) 07/20/21 08:08 Ruperto Test POSITIVE 07/20/21 08:08 VBG pH 7.462 (7.31-7.41) H 07/25/21 04:33 Ionized Calcium 1.02 mmol/L (1.15-1.33) L 07/25/21 04:33 Respiration Rate 12 b/min 07/20/21 08:08 O2 Delivery Device VENTILATOR 07/20/21 08:08 O2 Liters/Min 4.50 LPM 07/17/21 18:35 Vent Mode AC/VC 07/20/21 08:08 FiO2 25.00 07/20/21 08:08 Tidal Volume 420 mL 07/20/21 08:08 PEEP 5 cmH2O 07/20/21 08:08 Pressure Support Vent 12 cmH2O 07/05/21 11:00 IPAP Not Reportable 06/27/21 05:43 Sodium 136 mmol/L (135-145) 07/25/21 04:33 Potassium 2.9 mmol/L (3.5-5.0) L 07/25/21 04:33 Chloride 98 mmol/L (101-111) L 07/25/21 04:33 Carbon Dioxide 29 mmol/L (21-32) 07/25/21 04:33 Anion Gap 9.0 (6-13) 07/25/21 04:33 BUN 10 mg/dL (6-20) 07/25/21 04:33 Creatinine 0.5 mg/dL (0.4-1.0) 07/25/21 04:33 Estimated GFR (MDRD) 119 (>89) 07/25/21 04:33 Glucose 163 mg/dL (70-100) H 07/25/21 04:33 POC Whole Bld Glucose 147 mg/dL (70 - 100) H 07/24/21 23:40 Lactic Acid 1.0 mmol/L (0.5-2.2) 07/21/21 12:54 Calcium 7.1 mg/dL (8.5-10.3) L 07/25/21 04:33 Ionized Calcium YES 07/04/21 04:43 Phosphorus 2.9 mg/dL (2.5-4.6) 07/25/21 04:33 Magnesium 1.9 mg/dL (1.7-2.8) 07/25/21 04:33 Iron 11 ug/dL (28-170) L 07/04/21 04:43 TIBC 115 ug/dL (250-450) L 07/04/21 04:43 % Saturation 10 % (20-50) L 07/04/21 04:43 Transferrin 82 mg/dL (192-382) L 07/04/21 04:43 Total Bilirubin 0.2 mg/dL (0.2-1.0) 07/19/21 05:50 Direct Bilirubin 0.2 mg/dL (0.1-0.5) 07/19/21 05:50 AST 96 IU/L (10-42) H 07/19/21 05:50 ALT 54 IU/L (10-60) 07/19/21 05:50 Alkaline Phosphatase 137 IU/L (42-121) H 07/19/21 05:50 Troponin I High Sens 121.5 ng/L (2.3-14.8) H* 07/18/21 06:51 C-Reactive Protein 7.1 mg/dL (0-1.0) H 07/04/21 04:43 B-Natriuretic Peptide 919 pg/mL (5-100) H 07/03/21 07:30 Total Protein 4.6 g/dL (6.7-8.2) L 07/19/21 05:50 Albumin 1.7 g/dL (3.2-5.5) L 07/19/21 05:50 Globulin 2.9 g/dL (2.1-4.2) 07/19/21 05:50 Albumin/Globulin Ratio 0.6 (1.0-2.2) L 07/17/21 07:50 Prealbumin 5 mg/dL (18-45) L 07/22/21 04:54 Triglycerides 69 mg/dL (-149) 07/19/21 05:50 Cholesterol 78 mg/dL (-199) 07/19/21 05:50 LDL Cholesterol, Calc 45 mg/dL (-129) 07/19/21 05:50 VLDL Cholesterol 14 mg/dL 07/19/21 05:50 HDL Cholesterol 19 mg/dL (60-) L 07/19/21 05:50 LDL/HDL Ratio 2.4 (<4.4) 07/19/21 05:50 Cholesterol/HDL Ratio 4.1 (<4.4) 07/19/21 05:50 Lipase 42 U/L (22-51) 06/26/21 14:26 TSH 3.29 uIU/mL (0.34-5.60) 07/02/21 04:42 Free T4 0.97 ng/dL (0.58-1.64) 07/02/21 04:42 Cortisol AM Sample 6.1 ug/dL 07/05/21 05:31 Urine Color YELLOW 06/26/21 22:51 Urine Clarity CLEAR (CLEAR) 06/26/21 22:51 Urine pH 5.0 PH (5.0-7.5) 06/26/21 22:51 Ur Specific Ethan 1.015 (1.002-1.030) 06/26/21 22:51 Urine Protein NEGATIVE mg/dL (NEGATIVE) 06/26/21 22:51 Urine Glucose (UA) NEGATIVE mg/dL (NEGATIVE) 06/26/21 22:51 Urine Ketones NEGATIVE mg/dL (NEGATIVE) 06/26/21 22:51 Urine Occult Blood NEGATIVE (NEGATIVE) 06/26/21 22:51 Urine Nitrite NEGATIVE (NEGATIVE) 06/26/21 22:51 Urine Bilirubin NEGATIVE (NEGATIVE) 06/26/21 22:51 Urine Urobilinogen 0.2 (NORMAL) E.U./dL (NORMAL) 06/26/21 22:51 Ur Leukocyte Esterase TRACE (NEGATIVE) H 06/26/21 22:51 Urine RBC 0-5 /HPF (0-5) 06/26/21 22:51 Urine WBC 4-5 /HPF (0-5) 06/26/21 22:51 Ur Squamous Epith Cells FEW Squamous (<= Few) 06/26/21 22:51 Urine Bacteria Few /HPF (None Seen) 06/26/21 22:51 Urine Casts 3-5 Hyaline Casts /LPF 06/26/21 22:51 Ur Microscopic Review INDICATED 06/26/21 22:51 Urine Culture Comments INDICATED 06/26/21 22:51 Nasal Adenovirus (PCR) NOT DETECTED 07/14/21 16:00 Nasal B. parapertussis DNA (PCR) NOT DETECTED 07/14/21 16:00 Nasal Coronavir 229E PCR NOT DETECTED 07/14/21 16:00 Nasal Coronavir HKU1 PCR NOT DETECTED 07/14/21 16:00 Nasal Coronavir NL63 PCR NOT DETECTED 07/14/21 16:00 Nasal Coronavir OC43 PCR NOT DETECTED 07/14/21 16:00 Nasal Enterovir/Rhinovir PCR NOT DETECTED 07/14/21 16:00 Nasal Influenza B PCR NOT DETECTED 07/14/21 16:00 Nasal Influenza A PCR NOT DETECTED 07/14/21 16:00 Nasal Parainfluen 1 PCR NOT DETECTED 07/14/21 16:00 Nasal Parainfluen 2 PCR NOT DETECTED 07/14/21 16:00 Nasal Parainfluen 3 PCR NOT DETECTED 07/14/21 16:00 Nasal Parainfluen 4 PCR NOT DETECTED 07/14/21 16:00 Nasal RSV (PCR) NOT DETECTED 07/14/21 16:00 Nasal Screen MRSA (PCR) NEGATIVE (NEGATIVE) 06/26/21 21:55 Nasal B.pertussis DNA PCR NOT DETECTED 07/14/21 16:00 Nasal C.pneumoniae (PCR) NOT DETECTED 07/14/21 16:00 Mk Human Metapneumo PCR NOT DETECTED 07/14/21 16:00 Nasal M.pneumoniae (PCR) NOT DETECTED 07/14/21 16:00 Nasal SARS-CoV-2 (PCR) NOT DETECTED 07/14/21 16:00 Last Dose Date 07/19/2021 07/19/21 05:50 Last Dose Time 0100 07/19/21 05:50 Vancomycin Trough 16.8 ug/mL (10.0-20.0) 07/15/21 15:30 Digoxin 1.4 ng/mL 07/19/21 05:50 - Procedures Procedures: Procedures RESPIRATORY VENTILATION, LESS THAN 24 CONSECUTIVE HOURS (01/11/20) Sepsis Event Note (H) - Evaluation Current Stage of Sepsis: Septic shock Possible source of Sepsis: positive: GI tract/intra-abdominal - Sepsis Criteria Sepsis Criteria: WBC count greater than 10% bands, SBP drop more than 40mHg, MAP less than 65 mmHg, SBP less than 90 mmHg, Renal: urine output less than 0.5ml/kg/hr for 2 hours or creatinine gr, Metabolic: lactate > 2 mmol/L ABX Reporting Has patient been on IV antibiotics over the past 48 hours?: Yes
[2021-07-25] MEDS: FUROSEMIDE 40 MG/4 ML VIAL IVP SCH ×2 (09:20→14:15)
[2021-07-25] MEDS: ENOXAPARIN 40 MG/0.4 ML SYRINGE SUBQ SCH (09:25)
[2021-07-25] MEDS: CHLORHEXIDINE GLUCONATE 15 ML UDC PO SCH ×2 (09:45→20:13)
[2021-07-25] MEDS: BISACODYL 10 MG SUPP PR SCH (09:45)
--- NOTE | 2021-07-25 13:29 | CONSULTATION NOTE ---
Referring Provider Name of Referring Provider:: Shelia Mclean DO Consult Date: 07/25/21 Chief Complaint - Chief Complaint Chief Complaint: Lack of postoperative surgical progress History of Present Illness - History Obtained From Records Reviewed: Yes History obtained from: Extensive chart review, discussion with nursing and physicians Exam Limitations: Patient's inability to give history due to current medical status and prese - History of Present Illness HPI Comment/Other: Dr. Mclean as well as the family of this poor unfortunate 81-year-old female asked that a second opinion be provided about her current medical/surgical status and what can be done to improve it. I will attempt to summarize her history here after an extensive chart review. Review of the chart reveals the progressive medical decline of a 81-year-old female who had been beset with mental and developmental delay as well as schizophrenia. While her mother was alive she was able to live at home with her mother, but once her mother she relocated to a care facility. Review of her records prior to her arriv al at this hospital revealed difficulties with mobility, increasing cardiac issues including congestive heart failure, peripheral edema, and atrial fibrillation, and frequent urinary tract infections (thought to be due to her decreased mobility). She presented to our emergency department on June 26, 2021 but the extent of her medical surgical diagnosis was only determined through labs as well as radiology. She was unable to give an adequate or appropriate history. When her radiographic studies revealed free air and fluid in the abdomen (consistent with a perforated viscus) Dr. Dobson was consulted and she took the patient urgently to the operating room where a perforated duodenal ulcer was found and treated with a pyloroplasty as well as a Gray patch. The patient was gravely ill and treated with broad-spectrum antibiotics and she was remained intubated. The hospitalist group was consulted due to the severity of her disease and has been involved in her care since that time. With intensive care the patient was subsequently extubated but needed to be reintubated after a bout of aspiration. Again, she was extubated after intensive treatment but needed to be reintubated less than 24 hours due to decreasing O2 sats. I believe to Gastrografin challenges have been done and on recent studies some contrast dye is still present in her bowels (not unexpected considering the fact that the patient complained of severe constipation prior to admission to the hospital and she is on fentanyl continuously). When I came to see her today I find a patient who is intubated, sedated (Precedex), receiving continuous IV fentanyl, receiving continuous Levophed, whose drain has been removed and whose antibiotics have been stopped. Although she is reacting it is not with any purpose. She does not respond to her name being called. 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 Mom around age 97-98 of old age. Dad was not known by the caregiver so she does not know what he of. She has 2 sisters. One in [place] and one in [place]. Both are regarded as healthy. No children [facility] Living Situation: Other (She reports she has had the same caregiver for the last 22 years) Social History Notes: [place] with her mother all of her life until 1998. Mom at the age of 98-99. She then went to live in a halfway. She has never smoked, never drank, and never had a problem with recreational substance abuse. However, she has cocaine toxicity and methamphetamine abuse noted in her problem list here. She has been at the halfway for 21 years. There is no power of hospital librarian. The last power of hospital librarian this patient had was her mother. Since there has been no major medical decisions or financial decisions that have changed in the last 21 years, neither sister has assumed that role. The caregiver is Vanessa Bello at [phone]. She lives next door to the halfway and sees this patient on a daily basis, several hours at a time. - Substance History Use: Uses substance without health or social issues: NONE - POLST Patient has POLST: No POLST Status: Full Code Meds/Allgy - Home Medications Home Medications: Ambulatory Orders Medication Instructions Recorded Confirmed Levothyroxine [Synthroid] 75 mcg PO QDAC 07/22/19 06/27/21 Simvastatin [Zocor] 20 mg PO QPM 07/22/19 06/27/21 Torsemide 40 mg PO DAILY 07/22/19 06/27/21 Potassium Chloride 10 meq PO DAILY 01/11/20 06/27/21 EPINEPHrine [Epipen Jr] 0.3 mg IM ONCE PRN 04/12/20 06/27/21 traZODone [Desyrel] 200 mg PO QPM 04/12/20 06/27/21 Meloxicam [Mobic] 7.5 mg PO BID 10/21/20 06/27/21 QUEtiapine [SEROquel] 100 mg PO BID 10/21/20 06/27/21 - Allergies Allergies/Adverse Reactions: Allergies Allergy/AdvReac Type Severity Reaction Status Date / Time Penicillins Allergy Unknown Verified 06/26/21 14:07 Review of Systems - Constitutional Constitutional: reports: Other - Eyes Eyes: reports: Other - Other Findings Other Findings: Unable to evaluate due to patient's pre-existing mental status (primarily) and current medical surgical issues (intubation and sedation). Exam - Vital Signs Reviewed Vital Signs: Yes Vital Signs: Vital Signs x48h Temp Pulse Pulse Resp BP Pulse Ox 07/25/21 13:00 70 18 107/53 L 100 07/25/21 11:30 36.3 C L 70 18 101/59 L 100 07/25/21 11:00 70 18 95/47 L 100 07/25/21 10:00 70 21 97/49 L 98 07/25/21 09:34 70 07/25/21 09:00 70 14 124/100 H 100 07/25/21 08:22 37.2 C 07/25/21 07:00 70 12 96/43 L 100 07/25/21 06:00 70 12 107/50 L 100 07/25/21 05:35 71 - Physical Exam General Appearance: positive: Other (The patient is intubated and sedated although she is responding to stimuli it is not with any purpose.) Eyes Bilateral: positive: Other (Nondirected motion.) ENT: positive: Dry mucous membranes, Other (Endotracheal tube in position.) Neck: positive: Trachea midline Respiratory: positive: Breath sounds nml (Anterolaterally.) Cardiovascular: positive: Regular rate & rhythm Abdomen: positive: Other (Obese, doughy, decreased bowel sounds, well-healed incision without hernia.) Back: positive: Other (Not evaluated.) Skin: positive: Color nml, Warm Extremities: negative: Meena's sign/cords Neurologic/Psychiatric: positive: Other (The patient is intubated and sedated although she is responding to stimuli it is not with any purpose.) Conclusion/Plan - Lab Results Lab results reviewed: Yes Fish Bones: 07/25/21 04:33 07/25/21 04:33 - Diagnostic Imaging Results Diagnostic Imaging Results: positive: Final report reviewed - Other Other Results/Comments: POD 29 s/p exploratory laparotomy with pyloroplasty and Gray patch for perforated posterior duodenal ulcer 1) FEN The patient has severe protein malnutrition with her most recent albumin 1.7. Ongoing diuretics have dropped her potassium and this is being replaced. Once the calcium level is adjusted for the low albumin it is normal. My recommendation would be for hyperalimentation that primarily uses protein and fat and it decreases carbohydrates given but unfortunately at this institution we cannot tailor the hyperalimentation that much. Her low serum albumin is contributing to her edema and anasarca. 2) Pulmonary The patient is intubated but is on minimal ventilator support with an FiO2 of 25%. I have not seen any weaning studies and we may not as the patient cannot follow instruction. The patient, I believe is extubatable from a pulmonary standpoint but the tube may be in place to protect her airway. If this is felt to be the primary cause then tracheostomy should be considered as it will allow for easier pulmonary toilet. If tracheostomy is to be seriously considered I would recommend that it be performed prior to the patient being extubated. 3) ID An extensive review of the chart as well as physical examination has failed to convince me that the patient has any significant infectious disease concerns at this point in time. The antibiotics have been stopped. She is not febrile. She is not tachycardic. Her blood chemistries do not suggest a lactic acidosis. She, however, continues to require Levophed to support her blood pressure. This should be weaned off. 4) Cardiac As stated above the patient has had 3 cardiac issues prior to arriving at this hospital. Her diastolic dysfunction and congestive heart failure along with her edema could be improved with improved nutrition and mobility. There is no question that the Levophed needs to be weaned off. It works primarily as a peripheral vasoconstrictor but there is also some inotropic effect on the heart. Importantly, it should be used when the intravascular volume has been corrected is much as possible with the appropriate fluids. This may be why this patient is having difficulty coming off her Levophed in the sense that her low albumin is contributing to anasarca and decreased intravascular volume. I would recommend that the patient receive IV albumin and then see whether or not the Levophed can be weaned off. As far as repeat echocardiogram I will defer to my hospitalist colleagues as to the appropriateness and timing of this. 5) Renal Review of the current numbers do not have me concerned. 6)Development delay/Schizophrenia I do not have any words of wisdom as to how to affect these 2 conditions but these 2 conditions will markedly affect her ability to recover from this. Specifically, she is unlikely to follow instructions with regards to physical therapy or occupational therapy to gain her strength back and she is unlikely to follow instruction to help prevent recurrent medical issues such as swallowing coaching to prevent aspiration. 7) History of PE Mechanical prophylaxis is in place. 8) Thyroid Last study recorded was July 02. I would recommend reexamining this issue over the next few days. Replace as necessary. 9) Pain There is no indication for continuous fentanyl administration. The patient is essentially 1 month out from surgery and the fentanyl cannot be given to treat postoperative pain. If it is being given for sedation in combination with the Precedex I would strongly recommend that it be discontinued or another nonopiate medication to be considered. 10) GI The patient had constipation prior to presentation in our emergency department for years and now is receiving continuous fentanyl. I am not surprised that the patient is not showing good GI function. I would recommend stopping the fentanyl and consider the use of Relistor. To address any concern that the pharmacist may have the cost of the Relistor will be markedly less and the cost of continued ICU care. My understanding is that there has been consideration of a ethics consultation. Although I think this is entirely appropriate it would not address the medical issues above. Instead it the consult should address the appropriateness of ongoing treatment. What should be very apparent in this patient is that she faces an almost insurmountable uphill course in order to get back to where she was preoperatively. She must be extubated (plus minus tracheostomy), she must be off pressors, she must avoid aspiration (plus minus percutaneous feeding), her bowel function must return, and she must improve her strength and mobility. Normally this is a significant ask. In this patient with her schizophrenia and her developmental delay I think it is entirely appropriate to ask whether or not she could accomplish this healing and improvement. Lastly, surgically if required I can perform a tracheostomy. If a feeding tube is requested, bowel function MUST have returned and be normal prior to this otherwise a feeding tube is contraindicated. I would like to thank Dr. Mclean very much for the invitation to participate in this patient's care. Please let me know if I can be of further help.
[2021-07-25] MEDS: LUBIPROSTONE 24 MCG CAPSULE PO SCH ×2 (14:30→22:18)
[2021-07-25] MEDS ORDERED: ALBUMIN 25% 12.5 GM/50 ML VIAL IV STA (15:06)
[2021-07-25] MEDS: LORazepam 2 MG/ML VIAL IVP PRN ×2 (17:25→22:25)
[2021-07-25] MEDS: FAT EMUL/SOY/MCT/OLIV/FISH OIL 50 GM/250 ML BAG IV SCH (18:35)
[2021-07-25] MEDS: TPN (CLINIMIX E 5/15) 2,000 ML with MULTIVITAMIN 10 ML, TRACE ELEMENTS 1 ML, POTASSIUM ... IV SCH ×4 (18:35)
[2021-07-25] MEDS: GLYCOPYRROLATE 1 MG/5 ML VIAL SUBQ PRN (23:20)
[2021-07-25] MEDS: SCOPOLAMINE PATCH TOP SCH (23:42)
[2021-07-26] MEDS: SODIUM CHLORIDE 0.9% 500 ML IV PRN (00:44)
[2021-07-26] MEDS: LORazepam 2 MG/ML VIAL IVP PRN ×3 (03:40→20:22)
[2021-07-26] MEDS: SODIUM CHLORIDE FLUSH 0.9% 10 ML SYRINGE IVP PRN (03:40)
[2021-07-26 05:18] LABS: BASOPHILS % (AUTO) 0.3 %; EOSINOPHILS # (AUTO) 0.3 10^3/uL (0.0-0.7); HCT - HEMATOCRIT 29.2 % (37.0-47.0); HGB - HEMOGLOBIN 9.2 g/dL (12.0-16.0); LYMPHOCYTES # (AUTO) 0.9 10^3/uL (1.5-3.5); MEAN CORPUSCULAR HEMOGLOBIN 29.8 pg (27.0-31.0); MEAN CORPUSCULAR HGB CONC 31.5 g/dL (32.0-36.0); MEAN CORPUSCULAR VOLUME 94.5 fL (81.0-99.0); MEAN PLATELET VOLUME 12.9 fL (7.9-10.8); MONOCYTES # (AUTO) 0.4 10^3/uL (0.0-1.0); MONOCYTES % (AUTO) 5.8 %; NEUTROPHILS # (AUTO) 5.2 10^3/uL (1.5-6.6); PLT - PLATELET COUNT 183 10^3/uL (130-450); RED BLOOD COUNT 3.09 10^6/uL (4.20-5.40); RED CELL DISTRIBUTION WIDTH 21.6 % (12.0-15.0); WHITE BLOOD COUNT 6.9 x10^3/uL (4.8-10.8)
[2021-07-26 05:19] LABS: CALCIUM, IONIZED 1.07 mmol/L (1.15-1.33); SLIDE REVIEW? Indicated; VBG PH 7.362 (7.31-7.41)
[2021-07-26 05:32] LABS: PLATELET ESTIMATE, MANUAL NORMAL (130-450,000) (NORMAL); PLATELET MORPHOLOGY NORMAL APPEARANCE (NORMAL); WBC MORPHOLOGY (MULTIPLE) NORMAL APPEARANCE (NORMAL)
[2021-07-26 05:36] LABS: CALCIUM 7.2 mg/dL (8.5-10.3); CREATININE 0.6 mg/dL (0.4-1.0); POTASSIUM 3.7 mmol/L (3.5-5.0)
[2021-07-26] MEDS ORDERED: CALCIUM GLUCONATE 1,000 MG in SODIUM CHLORIDE 0.9% 50 ML IV ONE ×2 (05:39→15:04)
[2021-07-26] MEDS ORDERED: POTASSIUM CHLOR 20 MEQ/100 ML 20 MEQ/100 ML BAG IV ONE (05:39)
[2021-07-26 05:40] LABS: MAGNESIUM 1.7 mg/dL (1.7-2.8); PHOSPHORUS 3.1 mg/dL (2.5-4.6)
[2021-07-26] MEDS ORDERED: MAGNESIUM SULFATE 2 GRAM 2 GM/50 ML BAG IV ONE (05:42)
[2021-07-26] MEDS: FUROSEMIDE 40 MG/4 ML VIAL IVP SCH ×2 (06:02→13:31)
[2021-07-26] MEDS: METOCLOPRAMIDE 10 MG/2 ML VIAL IVP SCH ×3 (06:07→18:00)
[2021-07-26] MEDS: PANTOPRAZOLE 40 MG VIAL IVP SCH (06:07)
[2021-07-26] MEDS: DEXMEDETOMIDINE 1,000 MCG in SODIUM CHLORIDE 0.9% 240 ML IV PRN ×2 (08:55→18:00)
[2021-07-26] MEDS: ENOXAPARIN 40 MG/0.4 ML SYRINGE SUBQ SCH (09:18)
[2021-07-26] MEDS: BISACODYL 10 MG SUPP PR SCH (09:19)
[2021-07-26] MEDS: LUBIPROSTONE 24 MCG CAPSULE PO SCH ×2 (09:20→20:22)
[2021-07-26] MEDS: CHLORHEXIDINE GLUCONATE 15 ML UDC PO SCH ×2 (09:20→20:22)
[2021-07-26] MEDS: SODIUM CHLORIDE FLUSH 0.9% 10 ML SYRINGE IVP SCH ×2 (09:42→17:25)
[2021-07-26] MEDS: GLYCOPYRROLATE 1 MG/5 ML VIAL SUBQ PRN ×2 (09:55→16:14)
[2021-07-26] MEDS ORDERED: ALBUMIN 25% 12.5 GM/50 ML VIAL IV SCH (10:24)
[2021-07-26 12:37] LABS: CALCIUM 7.5 mg/dL (8.5-10.3); CALCIUM, IONIZED 1.05 mmol/L (1.15-1.33); CREATININE 0.6 mg/dL (0.4-1.0); VBG PH 7.461 (7.31-7.41)
--- NOTE | 2021-07-26 12:45 | PROVIDER PROGRESS NOTE ---
Assessment/Plan - Problem List (1) Acute respiratory failure requiring reintubation Assessment/Plan: Patient still restless on the vent today. She continues to be afebrile. White blood cell count normal. Day #9 of third intubation Consulted Dr. Tobi Adrian for a second opinion 07/25/21. Please refer to his consult note for more details Following his recommendations, the following changes were made: Pt off fentanyl Titrating down and weaning of levophed as blood pressure tolerates, will use Midodrine if needed for low BP, rtarget NAP down to 55. Continue sedation with Precedex, off Fentynyl. But need to add something for her head thrashing, will add Versed drip. Ordered Lubiprostone 24mcg bid. Plan to allow about 2 days of lubiprostone while off opiates to see if there will be improved gut motility Only after gut motility is restored can a J-tube be placed. Dr Adrian can do a tracheostomy and j-tube at that time 07/24/21 No change in patient's clinical condition. Stable on vent. Afebrile. White blood cell count normal. Day #7 of third intubation. Continuing sedation with fentanyl and Precedex. Attempted to transfer patient to [facility] today was unsuccessful due to no bed availability. 07/23/21 Patient has been stable on the vent. She continues to be afebrile for a second day. Her white blood cell count today was normal. This is day #6 of the third intubation. Overall patient has been intubated for over 21 days. Continue sedation with fentanyl and precedex We will continue to attempt to transfer patient to another facility for higher level of care. Attempts to date have been unsuccessful. I had a conversation with the patient's niece Larissa who is a nurse and the patient's sister Katlin at bedside. I summarized and presented her clinical condition. They expressed understanding and asked follow-up questions. They understand that she is vent dependent having failed extubation attempts a couple of times, aspirating and having difficulties managing her secretions. She requested that I talk to another physician for a second opinion. I spoke with Dr. Aline Dobson who was agreeable to discuss with the patient's niece. I will also present the case to and complaint investigations officer at a higher level of care facility for any insight. 07/22/21 No significant change in patient's clinical status This is day #5 of the third intubation. Overall patient has been intubated for over 21 days. Continue sedation with fentanyl and precedex We will continue to attempt to transfer patient to another facility for higher level of care. Attempts to date have been unsuccessful. The patient's caregiver (Henny) was at bedside at time of exam. I again summarized the overall picture highlighting that there was no progress/improvement in patient's overall clinical condition. I attempted to highlight patient's poor prognosis. It has been a difficult balance continuing nutrition with high intravenous volumes versus managing patient's anasarca even while keeping intravascular pressures adequate. I shared my opinion that the patient's quality of life was currently poor. A point Henny disagrees with, countering that as long as there is life, that is value for which we should continue care. She took my input under advisement but made no change to current plan of care which includes continung antimicrobial, pressors, vent support and also involves transferring patient. 07/21/21 No significant change in patient's clinical status This is day #4 of the third intubation. Overall patient has been intubated for over 21 days. Continue sedation with fentanyl and precedex We will continue to attempt to transfer patient to another facility for higher level of care. Attempts to date have been unsuccessful. 07/20/21 No significant change in patient's clinical status This is day #3 of the third intubation. Overall patient has been intubated for over 21 days. Continue sedation with fentanyl and precedex. ABG done today showed pH 7.39 PCO2 45 PO2 62 Bicarbonate 26.3. We will continue to attempt to transfer patient to another facility for higher level of care. 07/19/21 This is day #2 of the third intubation. Overall patient has been intubated for over 21 days. Continue sedation with fentanyl. ABG done today showed pH 7.46 PCO2 39 PO2 211 aBicarbonate 27. This was on an FiO2 of 30, AC VC mode, tidal volume 450, Respiratory rate 12,PEEP 5, We will continue to attempt to transfer patient to another facility for higher level of care. 07/18/21 Patient was extubated around 9 AM on 07/17/2021. This was the 7 days since re-intubation. She seemed to be maintaining/protecting her airway through the course of the morning into the afternoon. In the course of being cleaned/changed mid-afternoon, she vomited a significant amount of tube feed, By 6 PM on 07/17/2021ppeared less responsive. She was also very diaphoretic and appeared to be in respiratory distress. While she had only required 2 L of oxygen via nasal cannula to keep her oxygen saturation in the high 90s during the day, her oxygen requirement increased significantly. An ABG was done which showed 1.15, PCO2 79, PO2 69. Chest x-ray Around 7 PM on 07/17/2021 showed bibasilar airspace opacities suspicious for aspiration versus pneumonia. Cephalization of pulmonary vasculature and perihilar opacities compatible with pulmonary edema The patient's caregiver Henny was at bedside and wished for re-intubation. Her sister Katie Massey (DPOA) has given approval for Henny's input into the patient's medical decision As a result the patient was re-intubated. Based on previous conversations and discussion around the time of this reintubation the indication would be for a trach and PEG. On 07/18/2021 I further discussed with Henny regarding the patient's quality of life with placement of a trach and PEG considering that she will be vent dependent indefinitely and also be at risk of aspirations. I mentioned consideration for palliative or hospice care. Henny and Katie Massey wish to proceed with a trach and PEG. I have reached out to [facility] in [place], [facility] in [place] and [email or web address] in [place] however these hospitals are currently at capacity. The placed her name on the list and will contact me once there is an availability. Yesterday after intubation the patient was sedated with propofol. This was changed to fentanyl and Precedex today 07/18/2021 to permit continua tion of patient's TPN. ABG at 9 AM today showed pH 7.46, PCO2 37, PO2 101 and bicarb 25.4. The patient was on an FiO2 of 35%, assist control mode, tidal volume 420 PEEP 5. FiO2 was decreased to 30 and respiratory rate was decreased from 18 to 16 She is on norepinephrine. Patient was placed on Flagyl due to aspiration. She remains afebrile. White blood cell count is normal at 6.2 (2) On mechanically assisted ventilation Assessment/Plan: No significant change in patient's clinical status This is day #9 of the third intubation. Overall patient has been intubated for over 21 days. She is off fentanyl. Continuing precedex. Adding Versed for thrashing. (3) Ileus following gastrointestinal surgery Assessment/Plan: NG tube draining bilious looking secretions. On Reglan 5 mg IV every 6 hours scheduled. No bowel movement in 6 days. Abdominal x-ray done 07/23/21 showed persistent enteric contrast, compatible wi th delayed transit. Weaned off fentanyl on 07/25/21, to help decrease narcotic-induced ileus. Lubiprostone 24mcg po bid added to regimen (4) Anasarca Assessment/Plan: Improvement in swelling in upper extremities. On Lasix 60 mg IV twice daily. Will add daily iv Albumen for the next 4 days. TPN resumed 07/24/2021 at half rate (5) Chronic diastolic heart failure Assessment/Plan: Echo December 2019 had ejection fraction of 65 to 70%. Mild tricuspid regurgitation. RVSP was 43 mmHg. Echo January 2020 had ejection fraction of 55 to 60%. Echocardiogram done June 27, 2021 has an ejection fraction of 40 to 45% and her systolic function is globally impaired. Right ventricular pacing evident. (Pacer was placed in September 2020?) Mild to moderate right ventricular enlargement. Moderate to severe mitral regurgitation. Moderate LAE, severe ORI. BNP 07/25/21 was 346. Will not repeat a 2D echo Lasix decreased to 40mg IV bid (6) Perforated duodenal ulcer Assessment/Plan: Postop day #230. Status post ex lap with repair of posterior duodenal ulcer General surgery following. No bowel movement in 6 days. NG tube to suction Tube feed initiated in the morning on 07/17/21 at 25ml/hr Tube feed discontinued later in the day on 07/17/21 due to aspiration. TPN held 07/21/2021 due to extensive anasarca TPN resumed 07/24/2021 at half rate. (7) Hypothyroidism Assessment/Plan: On Synthroid 130 mcg IV Mondays and . TSH on 07/25/21 was 3.87 (8) History of atrial fibrillation Assessment/Plan: Rate controlled. Not on any medication. (10) History of pulmonary embolism Assessment/Plan: On Lovenox 40 mg subcu daily and SCD's for DVT prophylaxis. (11) Schizophrenia Assessment/Plan: Seroquel discontinued while patient is receiving Reglan for ileus. (12) Iron deficiency anemia Assessment/Plan: Hemoglobin stable. We will continue to monitor. (13) Aspiration pneumonia Assessment/Plan: Flagyl, Levaquin and Diflucan discontinued on 07/25/21. Her pulm resistance is good, per report of RT today. (14) Septic shock Assessment/Plan: Resolved. Secondary to aspiration pneumonia. Flagyl, Levaquin and Diflucan discontinued on 07/25/21 - Current Meds Current Meds: Current Medications Generic Name Dose Route Start Last Admin Trade Name Freq PRN Reason Stop Dose Admin Acetaminophen 650 mg 07/17/21 11:05 07/21/21 10:00 Acetaminophen 325 Mg Tablet PO 650 mg Q6HR PRN Administration Pain or Fever > 38C (100.4F) Bisacodyl 10 mg 07/14/21 09:00 07/26/21 09:19 Bisacodyl 10 Mg Supp ME 10 mg DAILY JULIETA Administration Chlorhexidine Gluconate 15 ml 06/27/21 21:00 07/26/21 09:20 Chlorhexidine Gluconate 15 Ml Udc PO 15 ml BID JULIETA Administration Enoxaparin Sodium 40 mg 06/28/21 09:00 07/26/21 09:18 Enoxaparin 40 Mg/0.4 Ml Syringe SUBQ 40 mg DAILY JULIETA Administration Furosemide 40 mg 07/26/21 06:00 07/26/21 06:02 Furosemide 40 Mg/4 Ml Vial IVP 40 mg BIDDIURETIC JULIETA Administration Glycopyrrolate 0.2 mg 06/28/21 21:17 07/26/21 09:55 Glycopyrrolate 1 Mg/5 Ml Vial SUBQ 0.2 mg Q6H PRN Administration Excessive Secretions Sodium Chloride 500 mls @ 20 mls/hr 06/26/21 23:03 07/26/21 11:00 Normal Saline 0.9% IV 20 mls/hr Q24H PRN Infusion TKO RATE Norepinephrine Bitartrate 8 mg 250 mls @ 15 mls/hr 07/10/21 12:00 07/26/21 12:00 / Dextrose IV 2 mcg/min .[id number] JULIETA 3.75 mls/hr Titration Protocol 8 MCG/MIN Dexmedetomidine HCl 1,000 mcg/ 250 mls @ 32.438 mls/hr 07/22/21 13:30 07/26/21 11:00 Sodium Chloride IV 1.3 mcg/kg/hr .Q7H43M PRN 28.113 mls/hr Agitation Titration Protocol 1.5 MCG/KG/HR Fat Emulsion-Soy/MCT/[place]/Fish Oil 50 gm in 250 mls @ 21 mls/hr 07/24/21 19:00 07/26/21 07:00 Smoflipid 20% Iv Fat Emulsion IV Infused 1900 JULIETA Infusion Multivitamins 10 ml/ TRACE 2,051 mls @ 42 mls/hr 07/25/21 19:00 07/26/21 1 1:00 ELEMENTS 1 ml/ Potassium IV 42 mls/hr Chloride 80 meq/ Amino Ac/ Q24H JULIETA Infusion Electrol/Dextrose/Calcium Protocol Levothyroxine Sodium 130 mcg 07/12/21 12:00 07/25/21 06:34 Levothyroxine 100 Mcg Vial IVP 130 mcg MoTh@0700 JULIETA Administration Lubiprostone 24 mcg 07/25/21 14:00 07/26/21 09:20 Lubiprostone 24 Mcg Capsule PO 24 mcg BID JULIETA Administration Metoclopramide HCl 5 mg 07/23/21 12:00 07/26/21 12:03 Metoclopramide 10 Mg/2 Ml Vial IVP 5 mg Q6HR JULIETA Administration Mineral Oil 1 applic 07/01/21 01:24 07/06/21 20:24 Min Oil/Dimethicon/Coconut Oil 92 Gm Tube TOP 1 ea PRN PRN Administration Skin Care Pantoprazole Sodium 40 mg 06/27/21 07:00 07/26/21 06:07 Pantoprazole 40 Mg Vial IVP 40 mg QDAC JULIETA Administration Phenol/Menthol 2 sprays 07/05/21 21:24 07/07/21 11:03 Phenol Throat [place] 177 Ml MM 2 sprays Q2HR PRN Administration Throat Pain Scopolamine HBr 1 patch 07/25/21 23:00 07/25/21 23:42 Scopolamine Patch TOP 1 patch Q3D JULIETA Administration Sodium Chloride 10 ml 06/27/21 01:00 07/26/21 09:42 Sodium Chloride Flush 0.9% 10 Ml Syringe IVP 10 ml 0100,0900,1700 JULIETA Administration Sodium Chloride 10 ml 06/26/21 20:54 07/25/21 18:50 Sodium Chloride Flush 0.9% 10 Ml Syringe IVP 10 ml PRN PRN Administration NEEDED PER PROVIDER ORDERS Sodium Chloride 20 ml 06/26/21 23:03 07/26/21 03:40 Sodium Chloride Flush 0.9% 10 Ml Syringe IVP 20 ml PRN PRN Administration After Blood Draw - Lab Result Fish Bone Diagrams: 07/27/21 05:19 07/27/21 05:19 - Additional Planning My Orders: My Active Orders 07/26/21 10:24 Albumin 25% [Albuminar-25] 12.5 gm in 50 ml IV DAILY 07/26/21 10:25 Miscellaenous Nursing Order [RC] QSHIFT 07/26/21 10:26 Miscellaenous Nursing Order [RC] QSHIFT 07/26/21 10:29 LORazepam INJ [Ativan Inj (Vial)] 1 mg IVP Q6H PRN 07/26/21 14:00 Midodrine [ProAmatine] 2.5 mg PO TID Subjective - Subjective Nursing Reports: Other (Sedated and intubated) Objective Vital Signs: Vital Signs - 24 hr 07/25/21 07/25/21 07/25/21 13:00 14:00 14:30 Temperature Heart Rate 70 Heart Rate [ 70 70 Monitoring electrodes] Respiratory 18 14 Rate Blood Pressure 107/53 L 99/51 L [Left Brachial artery] O2 Saturation 100 99 07/25/21 07/25/21 07/25/21 15:00 16:00 17:00 Temperature 36.1 C L Heart Rate Heart Rate [ 71 70 70 Monitoring electrodes] Respiratory 15 15 14 Rate Blood Pressure 90/34 L 87/42 L 94/47 L [Left Brachial artery] O2 Saturation 97 100 100 07/25/21 07/25/21 07/25/21 17:34 18:00 19:00 Temperature 36.6 C 36.3 C L Heart Rate 70 Heart Rate [ 70 70 Monitoring electrodes] Respiratory 16 12 Rate Blood Pressure 93/47 L 97/46 L [Left Brachial artery] O2 Saturation 100 100 07/25/21 07/25/21 07/25/21 19:14 19:30 20:00 Temperature 36.8 C 36.3 C L Heart Rate 70 Heart Rate [ 70 Monitoring electrodes] Respiratory 23 Rate Blood Pressure 100/44 L [Left Brachial artery] O2 Saturation 100 07/25/21 07/25/21 07/25/21 21:00 21:20 22:00 Temperature Heart Rate 70 Heart Rate [ 70 70 Monitoring electrodes] Respiratory 14 12 Rate Blood Pressure 108/61 102/60 [Left Brachial artery] O2 Saturation 100 100 07/25/21 07/25/21 07/25/21 23:00 23:25 23:30 Temperature Heart Rate 72 Heart Rate [ 72 72 Monitoring electrodes] Respiratory 12 Rate Blood Pressure 76/42 L 92/44 L [Left Brachial artery] O2 Saturation 98 07/25/21 07/25/21 07/25/21 23:35 23:40 23:45 Temperature Heart Rate Heart Rate [ 73 72 73 Monitoring electrodes] Respiratory Rate Blood Pressure 91/47 L 94/42 L 97/55 L [Left Brachial artery] O2 Saturation 07/26/21 07/26/21 07/26/21 00:00 00:15 01:00 Temperature 36.0 C L Heart Rate Heart Rate [ 73 74 70 Monitoring electrodes] Respiratory 12 12 Rate Blood Pressure 95/49 L 106/44 L 101/48 L [Left Brachial artery] O2 Saturation 100 99 07/26/21 07/26/21 07/26/21 01:15 02:00 03:00 Temperature Heart Rate 72 Heart Rate [ 71 70 Monitoring electrodes] Respiratory 12 12 Rate Blood Pressure 112/61 108/58 L [Left Brachial artery] O2 Saturation 100 100 07/26/21 07/26/21 07/26/21 03:30 04:00 04:35 Temperature 36.6 C Heart Rate 71 Heart Rate [ 72 70 Monitoring electrodes] Respiratory 15 15 Rate Blood Pressure 81/69 L 87/47 L [Left Brachial artery] O2 Saturation 99 100 07/26/21 07/26/21 07/26/21 05:00 05:35 05:45 Temperature Heart Rate 70 Heart Rate [ 72 70 70 Monitoring electrodes] Respiratory 12 Rate Blood Pressure 104/48 L 94/45 L 96/42 L [Left Brachial artery] O2 Saturation 100 07/26/21 07/26/21 07/26/21 06:00 06:16 06:30 Temperature Heart Rate Heart Rate [ 70 73 74 Monitoring electrodes] Respiratory 12 Rate Blood Pressure 88/43 L 95/80 106/52 L [Left Brachial artery] O2 Saturation 100 07/26/21 07/26/21 07/26/21 07:00 08:00 08:11 Temperature 36.7 C Heart Rate 73 Heart Rate [ 72 72 Monitoring electrodes] Respiratory 12 20 Rate Blood Pressure 111/49 L 66/52 L [Left Brachial artery] O2 Saturation 100 100 07/26/21 07/26/21 07/26/21 09:00 10:00 11:00 Temperature Heart Rate Heart Rate [ 79 73 82 Monitoring electrodes] Respiratory 23 12 14 Rate Blood Pressure 115/51 L 100/47 L 97/39 L [Left Brachial artery] O2 Saturation 100 100 100 07/26/21 07/26/21 11:30 12:00 Temperature Heart Rate 75 Heart Rate [ 70 Monitoring electrodes] Respiratory 14 Rate Blood Pressure 107/46 L [Left Brachial artery] O2 Saturation 100 Oxygen O2 Source Mechanical ventilator I&O (Last 24 Hrs): Intake and Output Totals x24h 07/24/21 07/25/21 07/26/21 23:59 23:59 23:59 Intake Total 4198.679 4551.189 1530.992 Output Total 4695 2468 986 Balance -082.051 1096.189 544.992 General: Other (Sedated, intubated on the ventilator, however occaisionally thrashing her head side to side non-purposefully) HEENT: Other (Thin, open mouth despite intuvated) Neck: Supple Neuro: Other (Sedated non-purposeful mvms) Cardiovascular: Regular rate, No murmurs Respiratory: Breath sounds nml Abdomen: Soft Extremities: Other (2+ edema of extremities) - Results Results: Laboratory Results WBC 6.9 x10^3/uL (4.8-10.8) 07/26/21 04:30 RBC 3.09 10^6/uL (4.20-5.40) L 07/26/21 04:30 Hgb 9.2 g/dL (12.0-16.0) L 07/26/21 04:30 Hct 29.2 % (37.0-47.0) L 07/26/21 04:30 MCV 94.5 fL (81.0-99.0) 07/26/21 04:30 MCH 29.8 pg (27.0-31.0) 07/26/21 04:30 MCHC 31.5 g/dL (32.0-36.0) L 07/26/21 04:30 RDW 21.6 % (12.0-15.0) H 07/26/21 04:30 Plt Count 183 10^3/uL (130-450) 07/26/21 04:30 MPV 12.9 fL (7.9-10.8) H 07/26/21 04:30 Neut # (Auto) 5.2 10^3/uL (1.5-6.6) 07/26/21 04:30 Lymph # (Auto) 0.9 10^3/uL (1.5-3.5) L 07/26/21 04:30 Rogers # (Auto) 0.4 10^3/uL (0.0-1.0) 07/26/21 04:30 Eos # (Auto) 0.3 10^3/uL (0.0-0.7) 07/26/21 04:30 Baso # (Auto) 0.0 10^3/uL (0.0-0.1) 07/26/21 04:30 Absolute Nucleated RBC 0.00 x10^3/uL 07/26/21 04:30 Total Counted 100 07/25/21 04:33 Band Neuts % (Manual) 2 % (0-10) 07/25/21 04:33 Abnorm Lymph % (Manual) 0 % 07/25/21 04:33 Metamyelocytes % 1 % (-0) H 07/24/21 04:12 Myelocytes % 1 % (-0) H 07/24/21 04:12 Nucleated RBC % 0.0 /100WBC 07/26/21 04:30 Neutrophils # (Manual) 4.0 10^3/uL (1.5-6.6) 07/25/21 04:33 Lymphocytes # (Manual) 1.0 10^3/uL (1.5-3.5) L 07/25/21 04:33 Monocytes # (Manual) 0.7 10^3/uL (0.0-1.0) 07/25/21 04:33 Eosinophils # (Manual) 0.4 10^3/uL (0-0.7) 07/25/21 04:33 Basophils # (Manual) 0.0 10^3/uL (0-0.1) 07/25/21 04:33 Differential Comment MANUAL DIFFERENTIAL 07/25/21 04:33 Manual Slide Review Indicated 07/26/21 04:30 WBC Morphology NORMAL APPEARANCE (NORMAL) 07/26/21 04:30 Platelet Estimate NORMAL (130-450,000) (NORMAL) 07/26/21 04:30 Platelet Morphology NORMAL APPEARANCE (NORMAL) 07/26/21 04:30 RBC Morph Micro Appear 2+ ANISOCYTOSIS (NORMAL) 1+ POLYCHROMASIA (NORMAL) 07/26/21 04:30 RBC Morph Micro Appear 2+ ANISOCYTOSIS (NORMAL) 1+ POLYCHROMASIA (NORMAL) 07/26/21 04:30 Bld Gas Analysis Time 0808 07/20/21 08:08 Sample Site LEFT RADIAL 07/20/21 08:08 ABG pH 7.39 (7.35-7.45) 07/20/21 08:08 ABG pCO2 45 mmHg (34-45) 07/20/21 08:08 ABG pO2 62 mmHg (80-100) L 07/20/21 08:08 ABG HCO3 26.3 mmol/L (22.0-26.0) H 07/20/21 08:08 ABG Total CO2 27.7 MMOL/L (21.0-29.0) 07/20/21 08:08 ABG O2 Saturation 91 % (94-98) L 07/20/21 08:08 ABG Base Excess 1.1 mmol/L (-2.0-3.0) 07/20/21 08:08 Ruperto Test POSITIVE 07/20/21 08:08 VBG pH 7.461 (7.31-7.41) H 07/26/21 12:22 Ionized Calcium 1.05 mmol/L (1.15-1.33) L 07/26/21 12:22 Respiration Rate 12 b/min 07/20/21 08:08 O2 Delivery Device VENTILATOR 07/20/21 08:08 O2 Liters/Min 4.50 LPM 07/17/21 18:35 Vent Mode AC/VC 07/20/21 08:08 FiO2 25.00 07/20/21 08:08 Tidal Volume 420 mL 07/20/21 08:08 PEEP 5 cmH2O 07/20/21 08:08 Pressure Support Vent 12 cmH2O 07/05/21 11:00 IPAP Not Reportable 06/27/21 05:43 Sodium 137 mmol/L (135-145) 07/26/21 12:22 Potassium 4.0 mmol/L (3.5-5.0) 07/26/21 12:22 Chloride 100 mmol/L (101-111) L 07/26/21 12:22 Carbon Dioxide 29 mmol/L (21-32) 07/26/21 12:22 Anion Gap 8.0 (6-13) 07/26/21 12:22 BUN 12 mg/dL (6-20) 07/26/21 12:22 Creatinine 0.6 mg/dL (0.4-1.0) 07/26/21 12:22 Estimated GFR (MDRD) 96 (>89) 07/26/21 12:22 Glucose 163 mg/dL (70-100) H 07/26/21 12:22 POC Whole Bld Glucose 140 mg/dL (70 - 100) H 07/26/21 11:10 Lactic Acid 1.0 mmol/L (0.5-2.2) 07/21/21 12:54 Calcium 7.5 mg/dL (8.5-10.3) L 07/26/21 12:22 Ionized Calcium YES 07/04/21 04:43 Phosphorus 3.1 mg/dL (2.5-4.6) 07/26/21 04:30 Magnesium 1.7 mg/dL (1.7-2.8) 07/26/21 04:30 Iron 11 ug/dL (28-170) L 07/04/21 04:43 TIBC 115 ug/dL (250-450) L 07/04/21 04:43 % Saturation 10 % (20-50) L 07/04/21 04:43 Transferrin 82 mg/dL (192-382) L 07/04/21 04:43 Total Bilirubin 0.2 mg/dL (0.2-1.0) 07/19/21 05:50 Direct Bilirubin 0.2 mg/dL (0.1-0.5) 07/19/21 05:50 AST 96 IU/L (10-42) H 07/19/21 05:50 ALT 54 IU/L (10-60) 07/19/21 05:50 Alkaline Phosphatase 137 IU/L (42-121) H 07/19/21 05:50 Troponin I High Sens 121.5 ng/L (2.3-14.8) H* 07/18/21 06:51 C-Reactive Protein 7.1 mg/dL (0-1.0) H 07/04/21 04:43 B-Natriuretic Peptide 364 pg/mL (5-100) H 07/25/21 16:05 Total Protein 4.6 g/dL (6.7-8.2) L 07/19/21 05:50 Albumin 1.7 g/dL (3.2-5.5) L 07/19/21 05:50 Globulin 2.9 g/dL (2.1-4.2) 07/19/21 05:50 Albumin/Globulin Ratio 0.6 (1.0-2.2) L 07/17/21 07:50 Prealbumin 5 mg/dL (18-45) L 07/22/21 04:54 Triglycerides 69 mg/dL (-149) 07/19/21 05:50 Cholesterol 78 mg/dL (-199) 07/19/21 05:50 LDL Cholesterol, Calc 45 mg/dL (-129) 07/19/21 05:50 VLDL Cholesterol 14 mg/dL 07/19/21 05:50 HDL Cholesterol 19 mg/dL (60-) L 07/19/21 05:50 LDL/HDL Ratio 2.4 (<4.4) 07/19/21 05:50 Cholesterol/HDL Ratio 4.1 (<4.4) 07/19/21 05:50 Lipase 42 U/L (22-51) 06/26/21 14:26 TSH 3.87 uIU/mL (0.34-5.60) 07/25/21 16:05 Free T4 0.97 ng/dL (0.58-1.64) 07/02/21 04:42 Cortisol AM Sample 6.1 ug/dL 07/05/21 05:31 Urine Color YELLOW 06/26/21 22:51 Urine Clarity CLEAR (CLEAR) 06/26/21 22:51 Urine pH 5.0 PH (5.0-7.5) 06/26/21 22:51 Ur Specific [place] 1.015 (1.002-1.030) 06/26/21 22:51 Urine Protein NEGATIVE mg/dL (NEGATIVE) 06/26/21 22:51 Urine Glucose (UA) NEGATIVE mg/dL (NEGATIVE) 06/26/21 22:51 Urine Ketones NEGATIVE mg/dL (NEGATIVE) 06/26/21 22:51 Urine Occult Blood NEGATIVE (NEGATIVE) 06/26/21 22:51 Urine Nitrite NEGATIVE (NEGATIVE) 06/26/21 22:51 Urine Bilirubin NEGATIVE (NEGATIVE) 06/26/21 22:51 Urine Urobilinogen 0.2 (NORMAL) E.U./dL (NORMAL) 06/26/21 22:51 Ur Leukocyte Esterase TRACE (NEGATIVE) H 06/26/21 22:51 Urine RBC 0-5 /HPF (0-5) 06/26/21 22:51 Urine WBC 4-5 /HPF (0-5) 06/26/21 22:51 Ur Squamous Epith Cells FEW Squamous (<= Few) 06/26/21 22:51 Urine Bacteria Few /HPF (None Seen) 06/26/21 22:51 Urine Casts 3-5 Hyaline Casts /LPF 06/26/21 22:51 Ur Microscopic Review INDICATED 06/26/21 22:51 Urine Culture Comments INDICATED 06/26/21 22:51 Nasal Adenovirus (PCR) NOT DETECTED 07/14/21 16:00 Nasal B. parapertussis DNA (PCR) NOT DETECTED 07/14/21 16:00 Nasal Coronavir 229E PCR NOT DETECTED 07/14/21 16:00 Nasal Coronavir HKU1 PCR NOT DETECTED 07/14/21 16:00 Nasal Coronavir NL63 PCR NOT DETECTED 07/14/21 16:00 Nasal Coronavir OC43 PCR NOT DETECTED 07/14/21 16:00 Nasal Enterovir/Rhinovir PCR NOT DETECTED 07/14/21 16:00 Nasal Influenza B PCR NOT DETECTED 07/14/21 16:00 Nasal Influenza A PCR NOT DETECTED 07/14/21 16:00 Nasal Parainfluen 1 PCR NOT DETECTED 07/14/21 16:00 Nasal Parainfluen 2 PCR NOT DETECTED 07/14/21 16:00 Nasal Parainfluen 3 PCR NOT DETECTED 07/14/21 16:00 Nasal Parainfluen 4 PCR NOT DETECTED 07/14/21 16:00 Nasal RSV (PCR) NOT DETECTED 07/14/21 16:00 Nasal Screen MRSA (PCR) NEGATIVE (NEGATIVE) 06/26/21 21:55 Nasal B.pertussis DNA PCR NOT DETECTED 07/14/21 16:00 Nasal C.pneumoniae (PCR) NOT DETECTED 07/14/21 16:00 Mk Human Metapneumo PCR NOT DETECTED 07/14/21 16:00 Nasal M.pneumoniae (PCR) NOT DETECTED 07/14/21 16:00 Nasal SARS-CoV-2 (PCR) NOT DETECTED 07/14/21 16:00 Last Dose Date 07/19/2021 07/19/21 05:50 Last Dose Time 0100 07/19/21 05:50 Vancomycin Trough 16.8 ug/mL (10.0-20.0) 07/15/21 15:30 Digoxin 1.4 ng/mL 07/19/21 05:50 - Procedures Procedures: Procedures RESPIRATORY VENTILATION, LESS THAN 24 CONSECUTIVE HOURS (01/11/20) Sepsis Event Note (H) - Evaluation Current Stage of Sepsis: Septic shock Possible source of Sepsis: positive: GI tract/intra-abdominal - Sepsis Criteria Sepsis Criteria: WBC count greater than 10% bands, SBP drop more than 40mHg, MAP less than 65 mmHg, SBP less than 90 mmHg, Renal: urine output less than 0.5ml/kg/hr for 2 hours or creatinine gr, Metabolic: lactate > 2 mmol/L
[2021-07-26] MEDS ORDERED: ALBUMIN 25% 12.5 GM/50 ML VIAL IV STA (13:23)
[2021-07-26] MEDS: MIDODRINE 2.5 MG TABLET PO SCH ×2 (13:31→21:19)
[2021-07-26] MEDS: MIDAZOLAM DRIP 50 MG/100 ML BAG IV SCH ×2 (13:54→23:37)
[2021-07-26] MEDS: TPN (CLINIMIX E 5/15) 2,000 ML with MULTIVITAMIN 10 ML, TRACE ELEMENTS 1 ML, POTASSIUM ... IV SCH ×4 (18:30)
[2021-07-26] MEDS: FAT EMUL/SOY/MCT/OLIV/FISH OIL 50 GM/250 ML BAG IV SCH (18:30)
[2021-07-26 21:08] LABS: CALCIUM, IONIZED 1.05 mmol/L (1.15-1.33); VBG PH 7.454 (7.31-7.41)
[2021-07-27] MEDS: METOCLOPRAMIDE 10 MG/2 ML VIAL IVP SCH ×3 (03:28→12:16)
[2021-07-27] MEDS: SODIUM CHLORIDE FLUSH 0.9% 10 ML SYRINGE IVP SCH ×3 (03:28→19:18)
[2021-07-27] MEDS: DEXMEDETOMIDINE 1,000 MCG in SODIUM CHLORIDE 0.9% 240 ML IV PRN ×2 (03:51→15:10)
[2021-07-27] MEDS: SODIUM CHLORIDE 0.9% 500 ML IV PRN (03:55)
[2021-07-27 05:25] LABS: BASOPHILS % (AUTO) 0.3 %; EOSINOPHILS # (AUTO) 0.3 10^3/uL (0.0-0.7); EOSINOPHILS % (AUTO) 3.9 %; HCT - HEMATOCRIT 28.2 % (37.0-47.0); LYMPHOCYTES # (AUTO) 1.1 10^3/uL (1.5-3.5); LYMPHOCYTES % (AUTO) 16.9 %; MEAN CORPUSCULAR HEMOGLOBIN 29.4 pg (27.0-31.0); MEAN CORPUSCULAR HGB CONC 31.9 g/dL (32.0-36.0); MEAN CORPUSCULAR VOLUME 92.2 fL (81.0-99.0); MEAN PLATELET VOLUME 12.7 fL (7.9-10.8); MONOCYTES # (AUTO) 0.4 10^3/uL (0.0-1.0); MONOCYTES % (AUTO) 6.2 %; NEUTROPHILS # (AUTO) 4.6 10^3/uL (1.5-6.6); NEUTROPHILS % (AUTO) 71.1 %; PLT - PLATELET COUNT 149 10^3/uL (130-450); RED BLOOD COUNT 3.06 10^6/uL (4.20-5.40); RED CELL DISTRIBUTION WIDTH 21.6 % (12.0-15.0); WHITE BLOOD COUNT 6.4 x10^3/uL (4.8-10.8)
[2021-07-27 05:26] LABS: SLIDE REVIEW? Indicated
[2021-07-27 05:40] LABS: CALCIUM 7.2 mg/dL (8.5-10.3); CREATININE 0.5 mg/dL (0.4-1.0); MAGNESIUM 1.9 mg/dL (1.7-2.8); PHOSPHORUS 2.8 mg/dL (2.5-4.6); POTASSIUM 3.7 mmol/L (3.5-5.0)
[2021-07-27 05:44] LABS: PLATELET MORPHOLOGY NORMAL APPEARANCE (NORMAL); RBC MORPHOLOGY (MULTIPLE) 2+ ANISOCYTOSIS (NORMAL)
[2021-07-27 05:45] LABS: PLATELET ESTIMATE, MANUAL NORMAL (130-450,000) (NORMAL); WBC MORPHOLOGY (MULTIPLE) NORMAL APPEARANCE (NORMAL)
[2021-07-27] MEDS: FUROSEMIDE 40 MG/4 ML VIAL IVP SCH ×2 (06:10→14:58)
[2021-07-27] MEDS: PANTOPRAZOLE 40 MG VIAL IVP SCH (06:10)
[2021-07-27] MEDS: MIDODRINE 2.5 MG TABLET PO SCH ×3 (06:11→21:13)
[2021-07-27] MEDS: ENOXAPARIN 40 MG/0.4 ML SYRINGE SUBQ SCH (09:33)
[2021-07-27] MEDS: BISACODYL 10 MG SUPP PR SCH (09:33)
[2021-07-27] MEDS: CHLORHEXIDINE GLUCONATE 15 ML UDC PO SCH ×2 (09:33→21:13)
[2021-07-27] MEDS: LUBIPROSTONE 24 MCG CAPSULE PO SCH (09:34)
[2021-07-27] MEDS: MIDAZOLAM DRIP 50 MG/100 ML BAG IV SCH ×2 (11:07→22:25)
[2021-07-27] MEDS: ALBUMIN 25% 12.5 GM/50 ML VIAL IV SCH (12:21)
--- NOTE | 2021-07-27 12:30 | PROVIDER PROGRESS NOTE ---
Subjective - General Admit Date: 06/26/21 Procedure Date: 06/26/21 Post Op Days: 31 Procedure Performed: Exploratory laparotomy with repair of posterior duodenal ulcer - Review of Systems Wound/Incisions: positive: Healing well (Healed.) - Other Other Information/Narrative: Intubated and sedated with a pre-procedure baseline of schizophrenia and developmental delay. Objective - Patient Data Reviewed Vital Signs: Yes Vital Signs: Vital Signs x48h Temp Pulse Pulse Resp BP Pulse Ox 07/27/21 12:00 36.6 C 74 14 70/51 L 98 07/27/21 11:40 72 07/27/21 11:30 73 13 67/52 L 99 07/27/21 11:00 71 12 70/52 L 98 07/27/21 10:00 25 L 12 75/56 L 07/27/21 09:30 71 12 77/54 L 99 07/27/21 08:30 71 20 81/49 L 100 07/27/21 08:22 71 12 87/59 L 100 07/27/21 08:00 36.1 C L 73 12 92/59 L 100 07/27/21 07:40 71 07/27/21 07:00 71 12 88/59 L 100 07/27/21 06:00 71 12 87/60 L 100 07/27/21 05:00 72 12 91/58 L 100 Weight: Weight 07/25/21 07/26/21 07/27/21 23:59 23:59 23:59 Weight (kg) 87.5 kg 88.5 kg 91.1 kg Intake & Output: Intake and Output Totals x24h 07/25/21 07/26/21 07/27/21 23:59 23:59 23:59 Intake Total 4551.189 2453.617 1172.937 Output Total 2468 1566 920 Balance 2083.189 887.617 252.937 - Lab Results Lab Results: 07/27/21 05:19 07/27/21 05:19 Other Lab Results: Lab Results x24hrs 07/27/21 07/27/21 07/27/21 Range/Units 06:10 05:19 05:19 WBC 6.4 (4.8-10.8) x10^3/uL RBC 3.06 L (4.20-5.40) 10^6/uL Hgb 9.0 L (12.0-16.0) g/dL Hct 28.2 L (37.0-47.0) % MCV 92.2 (81.0-99.0) fL MCH 29.4 (27.0-31.0) pg MCHC 31.9 L (32.0-36.0) g/dL RDW 21.6 H (12.0-15.0) % Plt Count 149 (130-450) 10^3/uL MPV 12.7 H (7.9-10.8) fL Neut # (Auto) 4.6 (1.5-6.6) 10^3/uL Lymph # (Auto) 1.1 L (1.5-3.5) 10^3/uL [place] # (Auto) 0.4 (0.0-1.0) 10^3/uL Eos # (Auto) 0.3 (0.0-0.7) 10^3/uL Baso # (Auto) 0.0 (0.0-0.1) 10^3/uL Absolute Nucleated RBC 0.00 x10^3/uL Nucleated RBC % 0.0 /100WBC Manual Slide Review Indicated WBC Morphology NORMAL APPEARANCE (NORMAL) Platelet Estimate NORMAL (130-450,000) (NORMAL) Platelet Morphology NORMAL APPEARANCE (NORMAL) RBC Morph Micro Appear 2+ ANISOCYTOSIS (NORMAL) VBG pH (7.31-7.41) Ionized Calcium (1.15-1.33) mmol/L Sodium 133 L (135-145) mmol/L Potassium 3.7 (3.5-5.0) mmol/L Chloride 99 L (101-111) mmol/L Carbon Dioxide 24 (21-32) mmol/L Anion Gap 10.0 (6-13) BUN 12 (6-20) mg/dL Creatinine 0.5 (0.4-1.0) mg/dL Estimated GFR (MDRD) 119 (>89) Glucose 152 H (70-100) mg/dL POC Whole Bld Glucose 143 H (70 - 100) mg/dL Calcium 7.2 L (8.5-10.3) mg/dL Phosphorus 2.8 (2.5-4.6) mg/dL Magnesium 1.9 (1.7-2.8) mg/dL 07/26/21 07/26/21 07/26/21 Range/Units 22:54 21:00 18:26 WBC (4.8-10.8) x10^3/uL RBC (4.20-5.40) 10^6/uL Hgb (12.0-16.0) g/dL Hct (37.0-47.0) % MCV (81.0-99.0) fL MCH (27.0-31.0) pg MCHC (32.0-36.0) g/dL RDW (12.0-15.0) % Plt Count (130-450) 10^3/uL MPV (7.9-10.8) fL Neut # (Auto) (1.5-6.6) 10^3/uL Lymph # (Auto) (1.5-3.5) 10^3/uL [place] # (Auto) (0.0-1.0) 10^3/uL Eos # (Auto) (0.0-0.7) 10^3/uL Baso # (Auto) (0.0-0.1) 10^3/uL Absolute Nucleated RBC x10^3/uL Nucleated RBC % /100WBC Manual Slide Review WBC Morphology (NORMAL) Platelet Estimate (NORMAL) Platelet Morphology (NORMAL) RBC Morph Micro Appear (NORMAL) VBG pH 7.454 H (7.31-7.41) Ionized Calcium 1.05 L (1.15-1.33) mmol/L Sodium (135-145) mmol/L Potassium (3.5-5.0) mmol/L Chloride (101-111) mmol/L Carbon Dioxide (21-32) mmol/L Anion Gap (6-13) BUN (6-20) mg/dL Creatinine (0.4-1.0) mg/dL Estimated GFR (MDRD) (>89) Glucose (70-100) mg/dL POC Whole Bld Glucose 168 H 142 H (70 - 100) mg/dL Calcium (8.5-10.3) mg/dL Phosphorus (2.5-4.6) mg/dL Magnesium (1.7-2.8) mg/dL 07/26/21 07/26/21 07/26/21 Range/Units 12:22 12:22 12:22 WBC (4.8-10.8) x10^3/uL RBC (4.20-5.40) 10^6/uL Hgb (12.0-16.0) g/dL Hct (37.0-47.0) % MCV (81.0-99.0) fL MCH (27.0-31.0) pg MCHC (32.0-36.0) g/dL RDW (12.0-15.0) % Plt Count (130-450) 10^3/uL MPV (7.9-10.8) fL Neut # (Auto) (1.5-6.6) 10^3/uL Lymph # (Auto) (1.5-3.5) 10^3/uL [place] # (Auto) (0.0-1.0) 10^3/uL Eos # (Auto) (0.0-0.7) 10^3/uL Baso # (Auto) (0.0-0.1) 10^3/uL Absolute Nucleated RBC x10^3/uL Nucleated RBC % /100WBC Manual Slide Review WBC Morphology (NORMAL) Platelet Estimate (NORMAL) Platelet Morphology (NORMAL) RBC Morph Micro Appear (NORMAL) VBG pH 7.461 H (7.31-7.41) Ionized Calcium 1.05 L (1.15-1.33) mmol/L Sodium 137 (135-145) mmol/L Potassium 4.0 (3.5-5.0) mmol/L Chloride 100 L (101-111) mmol/L Carbon Dioxide 29 (21-32) mmol/L Anion Gap 8.0 (6-13) BUN 12 (6-20) mg/dL Creatinine 0.6 (0.4-1.0) mg/dL Estimated GFR (MDRD) 96 (>89) Glucose 163 H (70-100) mg/dL POC Whole Bld Glucose (70 - 100) mg/dL Calcium 7.5 L (8.5-10.3) mg/dL Phosphorus (2.5-4.6) mg/dL Magnesium 2.0 (1.7-2.8) mg/dL - Imaging Results Radiology Imaging: positive: Other (Recent AXR shows NG tube in stomach.) - Current Medications Current Medications: Current Medications Generic Name Dose Route Start Last Admin Trade Name Freq PRN Reason Stop Dose Admin Acetaminophen 650 mg 07/17/21 11:05 07/21/21 10:00 Acetaminophen 325 Mg Tablet PO 650 mg Q6HR PRN Administration Pain or Fever > 38C (100.4F) Bisacodyl 10 mg 07/14/21 09:00 07/27/21 09:33 Bisacodyl 10 Mg Supp OH 10 mg DAILY JULIETA Administration Chlorhexidine Gluconate 15 ml 06/27/21 21:00 07/27/21 09:33 Chlorhexidine Gluconate 15 Ml Udc PO 15 ml BID JULIETA Administration Enoxaparin Sodium 40 mg 06/28/21 09:00 07/27/21 09:33 Enoxaparin 40 Mg/0.4 Ml Syringe SUBQ 40 mg DAILY JULIETA Administration Furosemide 40 mg 07/26/21 06:00 07/27/21 06:10 Furosemide 40 Mg/4 Ml Vial IVP 40 mg BIDDIURETIC JULIETA Administration Glycopyrrolate 0.2 mg 06/28/21 21:17 07/26/21 16:14 Glycopyrrolate 1 Mg/5 Ml Vial SUBQ 0.2 mg Q6H PRN Administration Excessive Secretions Sodium Chloride 500 mls @ 20 mls/hr 06/26/21 23:03 07/27/21 03:55 Normal Saline 0.9% IV 20 mls/hr Q24H PRN Administration TKO RATE Dexmedetomidine HCl 1,000 mcg/ 250 mls @ 32.438 mls/hr 07/22/21 13:30 07/27/21 11:15 Sodium Chloride IV 1.1 mcg/kg/hr .Q7H43M PRN 23.788 mls/hr Agitation Titration Protocol 1.5 MCG/KG/HR Fat Emulsion-Soy/MCT/[place]/Fish Oil 50 gm in 250 mls @ 21 mls/hr 07/24/21 19:00 07/27/21 06:52 Smoflipid 20% Iv Fat Emulsion IV Infused 1900 JULIETA Infusion Multivitamins 10 ml/ TRACE 2,051 mls @ 42 mls/hr 07/25/21 19:00 07/26/21 18:30 ELEMENTS 1 ml/ Potassium IV 42 mls/hr Chloride 80 meq/ Amino Ac/ Q24H JULIETA Administration Electrol/Dextrose/Calcium Protocol Midazolam HCl 50 mg in 100 mls @ 7.08 mls/hr 10/29/21 14:00 07/27/21 11:39 Versed Drip IV 0.03 mg/kg/hr .Q14H8M JULIETA 5.31 mls/hr Titration Protocol 0.04 MG/KG/HR Albumin Human 12.5 gm in 50 mls @ 50 mls/hr 07/27/21 12:00 07/27/21 12:21 Albuminar-25 IV 07/30/21 00:01 50 mls/hr 1200 JULIETA Administration Levothyroxine Sodium 130 mcg 07/12/21 12:00 07/25/21 06:34 Levothyroxine 100 Mcg Vial IVP 130 mcg MoTh@0700 JULIETA Administration Lorazepam 1 mg 07/26/21 10:07/26/21 20:22 Lorazepam 2 Mg/Ml Vial IVP 1 mg Q6H PRN Administration Anxiety Lubiprostone 24 mcg 07/25/21 14:00 07/27/21 09:34 Lubiprostone 24 Mcg Capsule PO 24 mcg BID JULIETA Administration Metoclopramide HCl 5 mg 07/23/21 12:00 07/27/21 12:16 Metoclopramide 10 Mg/2 Ml Vial IVP 5 mg Q6HR JULIETA Administration Midodrine 2.5 mg 07/26/21 14:00 07/27/21 06:11 Midodrine 2.5 Mg Tablet PO 2.5 mg TID JULIETA Administration Mineral Oil 1 applic 07/01/21 01:24 07/06/21 20:24 Min Oil/Dimethicon/Coconut Oil 92 Gm Tube TOP 1 ea PRN PRN Administration Skin Care Pantoprazole Sodium 40 mg 06/27/21 07:00 07/27/21 06:10 Pantoprazole 40 Mg Vial IVP 40 mg QDAC JULIETA Administration Phenol/Menthol 2 sprays 07/05/21 21:24 07/07/21 11:03 Phenol Throat [place] 177 Ml MM 2 sprays Q2HR PRN Administration Throat Pain Scopolamine HBr 1 patch 07/25/21 23:00 07/25/21 23:42 Scopolamine Patch TOP 1 patch Q3D JULIETA Administration Sodium Chloride 10 ml 06/27/21 01:00 07/27/21 09:39 Sodium Chloride Flush 0.9% 10 Ml Syringe IVP 10 ml 0100,0900,1700 JULIETA Administration Sodium Chloride 10 ml 06/26/21 20:54 07/25/21 18:50 Sodium Chloride Flush 0.9% 10 Ml Syringe IVP 10 ml PRN PRN Administration NEEDED PER PROVIDER ORDERS Sodium Chloride 20 ml 06/26/21 23:03 07/26/21 03:40 Sodium Chloride Flush 0.9% 10 Ml Syringe IVP 20 ml PRN PRN Administration After Blood Draw - Physical Exam Wound/Incisions: positive: No drainage, Other (Healed.) General Appearance: positive: Other (Intubated sedated.) Eyes Bilateral: positive: No lid inflammation, No scleral icterus Respiratory: positive: Other (Coarse bilaterally anterolaterally.) Cardiovascular: positive: Regular rate & rhythm Abdomen: positive: No distention, Other (POSITIVE bowel sounds.) Skin: positive: Color nml Extremities: positive: Pedal edema Neurologic/Psychiatric: positive: Other (Intubated/sedated.) ABX Reporting Has patient been on IV antibiotics over the past 48 hours?: Yes Impression/Plan - Problem List Problem List: POD #31 s/p exploratory laparotomy with pyloroplasty and Grahm patch 1) FEN Review of the chart shows that patient's admission weight was 70 or 74 kg depending on what document you read and today it is 91 kg. This is undoubtedly increased interstitial water. Review of labs suggests that any IVF that are given should be NS and not hypotonic. Have stopped supplementing calcium as it was not necessary. Importantly the patient had 2 BMs and now should transition from TPN to enteral feeds. PROMOTE was suggested from dietary and this should work well. Patient has an NG tube and the most recent AXR showed it to be in the stomach. Will start TF and tolerate a residual of 200 mL. Patient's airway is currently protected with the ETT so want to move quickly on increasing TF to goal. Patient may require a feeding tube but this is a moot point if her bowels are not working. Must work on progressive loss of interstitial fluid. 2) ID No indication of infection. 3) Pulmonary Patient is NOT ventilator dependent. Her requirements are minimal but she may not be able to protect her airway and/or currently may not have enough strength to remain extubated. Discussions underway about possible tracheostomy. Suggest transitioning to SIMV if she is not currently there. SIMV may also make her calmer and she may require less sedation. 4) Cardiac Most recent ECHO showing decreased cardiac ejection fraction may have been due to response to surgery and infection and may not represent CHF. In fact looking at weight gain (see above) this is likely due to anasarca and not edema secondary to cardiac compromise. 5) Sedation Patient on Precedex and Versed. Dose of Versed should be 0.01-0.05 mg/kg/hr which her 70 kg admission weight would have her at 0.7 mg/hr - 3.5 mg/hr. I would not go much higher. As long as patient is not a threat to herself or others I would tolerate more motion on her part. 6) GI She has started having bowel movements and will start TF's as mentioned above. I do not think that the patient has gastric outlet obstruction (suggested by nursing) as the pyloroplasty should have handled that. Again I would tolerate residuals of 200 mL before temporarily holding TFs. It is unlikely that she would have a meaningful swallow study so depending on how she tolerates TF's it may dictate how she gets her nutrition. Again I appreciate the opportunity to be involved in her care.
[2021-07-27] MEDS: LORazepam 2 MG/ML VIAL IVP PRN (13:35)
--- NOTE | 2021-07-27 14:38 | PROVIDER PROGRESS NOTE ---
Assessment/Plan - Problem List (1) Acute respiratory failure requiring reintubation Assessment/Plan: Patient not restless on the vent today after iv Versed was added for sedation, to [id number] yesterday. She continues to be afebrile. Day #10 of third intubation Consulted Dr. Tobi Adrian for trach and J tube for feeds. Following his recommendations, the following changes were made: Pt off fentanyl for 2 days. Titrating Levophed to off but new scheduled Midodrine ordered for low BP, target MAP is 55. Only after gut motility is restored can a J-tube be placed. Dr Adrian can do a tracheostomy and j-tube at that time (2) On mechanically assisted ventilation Assessment/Plan: No significant change in patient's clinical status This is day #10 of the third intubation. Overall patient has been intubated for over 21 days. She is off fentanyl. Continuing precedex and Versed for thrashing. A tracheostomy is indicated. Dr. Liang is on-call for general surgery this weekend, and has agreed that Dr. Adrian may continue with plan for creating a tracheostomy. We will plan on changing her from assist control down to SIMV so that she starts to breathe over the vent somewhat, and check ABG after changes made. (3) Ileus following gastrointestinal surgery Assessment/Plan: She was weaned off fentanyl on 07/25/21, to help decrease narcotic-induced ileus. She had a BM yesterday and several after that today NG tube in place and today Dr Adrian initiated tube feeds to trickle in, using PROMOTE She was on Reglan 5 mg IV every 6 hours scheduled. We will stop this, since she has had several BMs Lubiprostone 24mcg po bid will also be stopped (4) Anasarca Assessment/Plan: Improvement in swelling in upper extremities. Continue with Lasix 60 mg IV twice daily. Will add daily iv Albumen at noon for 3 more days. (5) Chronic diastolic heart failure Assessment/Plan: Echo December 2019 had ejection fraction of 65 to 70%. Mild tricuspid r egurgitation. RVSP was 43 mmHg. Echo January 2020 had ejection fraction of 55 to 60%. Echocardiogram done June 27, 2021 has an ejection fraction of 40 to 45% with systolic function globally impaired. Right ventricular pacing evident. (Pacer was placed in September 2020?) Mild to moderate right ventricular enlargement. Moderate to severe mitral regurgitation. Moderate LAE, severe ORI. Continue giving Albumen and Lasix 60 mg iv bid. (6) Perforated duodenal ulcer Assessment/Plan: Postop day #31. Status post ex lap with repair of posterior duodenal ulcer that had perforated General surgery following. (7) Hypothyroidism Assessment/Plan: On Synthroid 130 mcg IV Mondays and . TSH on 07/25/21 was 3.87 (8) History of atrial fibrillation Assessment/Plan: Rate controlled. Not on any medication for rate control. (9) History of pulmonary embolism Assessment/Plan: On Lovenox 40 mg subcu daily and SCD's for DVT prophylaxis. (10) Schizophrenia Assessment/Plan: Seroquel discontinued when patient was receiving Reglan for ileus. (11) Iron deficiency anemia Assessment/Plan: Hemoglobin stable. We will continue to monitor. (12) Aspiration pneumonia Assessment/Plan: Flagyl, Levaquin and Diflucan discontinued on 07/25/21. Her pulm resistance on the vent is good, per report of RT . (13) Septic shock Assessment/Plan: Resolved. Secondary to aspiration pneumonia. Flagyl, Levaquin and Diflucan discontinued on 07/25/21 - Current Meds Current Meds: Current Medications Generic Name Dose Route Start Last Admin Trade Name Freq PRN Reason Stop Dose Admin Acetaminophen 650 mg 07/17/21 11:05 07/21/21 10:00 Acetaminophen 325 Mg Tablet PO 650 mg Q6HR PRN Administration Pain or Fever > 38C (100.4F) Chlorhexidine Gluconate 15 ml 06/27/21 21:00 07/27/21 09:33 Chlorhexidine Gluconate 15 Ml Udc PO 15 ml BID JULIETA Administration Enoxaparin Sodium 40 mg 06/28/21 09:00 07/27/21 09:33 Enoxaparin 40 Mg/0.4 Ml Syringe SUBQ 40 mg DAILY JULIETA Administration Furosemide 40 mg 07/26/21 06:00 07/27/21 06:10 Furosemide 40 Mg/4 Ml Vial IVP 40 mg BIDDIURETIC JULIETA Administration Glycopyrrolate 0.2 mg 06/28/21 21:17 07/26/21 16:14 Glycopyrrolate 1 Mg/5 Ml Vial SUBQ 0.2 mg Q6H PRN Administration Excessive Secretions Sodium Chloride 500 mls @ 20 mls/hr 06/26/21 23:03 07/27/21 03:55 Normal Saline 0.9% IV 20 mls/hr Q24H PRN Administration TKO RATE Dexmedetomidine HCl 1,000 mcg/ 250 mls @ 32.438 mls/hr 07/22/21 13:30 07/27/21 13:00 Sodium Chloride IV 0.9 mcg/kg/hr .Q7H43M PRN 19.463 mls/hr Agitation Titration Protocol 1.5 MCG/KG/HR Fat Emulsion-Soy/MCT/[place]/Fish Oil 50 gm in 250 mls @ 21 mls/hr 07/24/21 19:00 07/27/21 06:52 Smoflipid 20% Iv Fat Emulsion IV Infused 1900 JULIETA Infusion Multivitamins 10 ml/ TRACE 2,051 mls @ 42 mls/hr 07/25/21 19:00 07/26/21 18:30 ELEMENTS 1 ml/ Potassium IV 42 mls/hr Chloride 80 meq/ Amino Ac/ Q24H JULIETA Administration Electrol/Dextrose/Calcium Protocol Midazolam HCl 50 mg in 100 mls @ 7.08 mls/hr 07/26/21 14:00 07/27/21 11:39 Versed Drip IV 0.03 mg/kg/hr .Q14H8M JULIETA 5.31 mls/hr Titration Protocol 0.04 MG/KG/HR Albumin Human 12.5 gm in 50 mls @ 50 mls/hr 07/27/21 12:00 07/27/21 13:45 Albuminar-25 IV 07/30/21 00:01 Infused 1200 JULIETA Infusion Levothyroxine Sodium 130 mcg 07/12/21 12:00 07/25/21 06:34 Levothyroxine 100 Mcg Vial IVP 130 mcg MoTh@0700 JULIETA Administration Lorazepam 1 mg 07/26/21 10:07/27/21 13:35 Lorazepam 2 Mg/Ml Vial IVP 1 mg Q6H PRN Administration Anxiety Midodrine 2.5 mg 07/26/21 14:00 07/27/21 06:11 Midodrine 2.5 Mg Tablet PO 2.5 mg TID JULIETA Administration Mineral Oil 1 applic 07/01/21 01:24 07/06/21 20:24 Min Oil/Dimethicon/Coconut Oil 92 Gm Tube TOP 1 ea PRN PRN Administration Skin Care Pantoprazole Sodium 40 mg 06/27/21 07:00 07/27/21 06:10 Pantoprazole 40 Mg Vial IVP 40 mg QDAC JULIETA Administration Phenol/Menthol 2 sprays 07/05/21 21:24 07/07/21 11:03 Phenol Throat [place] 177 Ml MM 2 sprays Q2HR PRN Administration Throat Pain Scopolamine HBr 1 patch 07/25/21 23:00 07/25/21 23:42 Scopolamine Patch TOP 1 patch Q3D JULIETA Administration Sodium Chloride 10 ml 06/27/21 01:00 07/27/21 09:39 Sodium Chloride Flush 0.9% 10 Ml Syringe IVP 10 ml 0100,0900,1700 JULIETA Administration Sodium Chloride 10 ml 06/26/21 20:54 07/25/21 18:50 Sodium Chloride Flush 0.9% 10 Ml Syringe IVP 10 ml PRN PRN Administration NEEDED PER PROVIDER ORDERS Sodium Chloride 20 ml 06/26/21 23:03 07/26/21 03:40 Sodium Chloride Flush 0.9% 10 Ml Syringe IVP 20 ml PRN PRN Administration After Blood Draw - Lab Result Fish Bone Diagrams: 07/27/21 05:19 07/27/21 05:19 - Additional Planning My Orders: My Active Orders 07/26/21 14:00 Midazolam Drip [Versed Drip] 50 mg in 100 ml IV 0.04 mg/kg/hr Midodrine [ProAmatine] 2.5 mg PO TID 07/26/21 16:47 Initiate NonViolent Restraint [RC] .PerProtocol 07/27/21 12:00 Albumin 25% [Albuminar-25] 12.5 gm in 50 ml IV 1200 07/27/21 13:01 RT - Obtain Arterial Specimen [RC] .ONCE 07/27/21 14:30 ABG - ARTERIAL BLOOD GAS [BG] Timed 07/27/21 14:37 Initiate NonViolent Restraint [RC] .PerProtocol Subjective - Subjective Patient Reports: Other (sedated, on vent intubated) Objective Vital Signs: Vital Signs - 24 hr 07/26/21 07/26/21 07/26/21 15:00 15:20 15:35 Temperature Heart Rate Heart Rate [ 70 Monitoring electrodes] Respiratory 13 Rate Blood Pressure 55/40 L 72/43 L 79/53 L [Left Brachial artery] O2 Saturation 95 07/26/21 07/26/21 07/26/21 16:00 16:20 17:00 Temperature Heart Rate 70 Heart Rate [ 70 70 Monitoring electrodes] Respiratory 10 L 14 Rate Blood Pressure 84/53 L 77/48 L [Left Brachial artery] O2 Saturation 99 99 07/26/21 07/26/21 07/26/21 18:00 18:59 19:00 Temperature Heart Rate 70 Heart Rate [ 70 70 Monitoring electrodes] Respiratory 12 13 Rate Blood Pressure 78/49 L 85/52 L [Left Brachial artery] O2 Saturation 98 99 07/26/21 07/26/21 07/26/21 20:00 21:00 21:30 Temperature Heart Rate 71 Heart Rate [ 70 70 Monitoring electrodes] Respiratory 14 12 Rate Blood Pressure 65/50 L 80/47 L [Left Brachial artery] O2 Saturation 97 98 07/26/21 07/26/21 07/27/21 22:00 23:00 00:00 Temperature Heart Rate 70 Heart Rate [ 73 71 71 Monitoring electrodes] Respiratory 13 13 13 Rate Blood Pressure 87/55 L 91/58 L 93/57 L [Left Brachial artery] O2 Saturation 100 100 100 07/27/21 07/27/21 07/27/21 01:00 02:00 02:06 Temperature Heart Rate 70 Heart Rate [ 71 71 Monitoring electrodes] Respiratory 12 13 Rate Blood Pressure 97/60 98/61 [Left Brachial artery] O2 Saturation 100 100 07/27/21 07/27/21 07/27/21 03:00 04:00 05:00 Temperature Heart Rate Heart Rate [ 70 72 72 Monitoring electrodes] Respiratory 12 12 12 Rate Blood Pressure 96/62 89/59 L 91/58 L [Left Brachial artery] O2 Saturation 100 100 100 07/27/21 07/27/21 07/27/21 06:00 07:00 07:40 Temperature Heart Rate 71 Heart Rate [ 71 71 Monitoring electrodes] Respiratory 12 12 Rate Blood Pressure 87/60 L 88/59 L [Left Brachial artery] O2 Saturation 100 100 07/27/21 07/27/21 07/27/21 08:00 08:22 08:30 Temperature 36.1 C L Heart Rate Heart Rate [ 73 71 71 Monitoring electrodes] Respiratory 12 12 20 Rate Blood Pressure 92/59 L 87/59 L 81/49 L [Left Brachial artery] O2 Saturation 100 100 100 07/27/21 07/27/21 07/27/21 09:30 10:00 11:00 Temperature Heart Rate Heart Rate [ 71 25 L 71 Monitoring electrodes] Respiratory 12 12 12 Rate Blood Pressure 77/54 L 75/56 L 70/52 L [Left Brachial artery] O2 Saturation 99 98 07/27/21 07/27/21 07/27/21 11:30 11:40 12:00 Temperature 36.6 C Heart Rate 72 Heart Rate [ 73 74 Monitoring electrodes] Respiratory 13 14 Rate Blood Pressure 67/52 L 70/51 L [Left Brachial artery] O2 Saturation 99 98 07/27/21 07/27/21 07/27/21 13:00 13:13 14:00 Temperature Heart Rate 73 Heart Rate [ 74 77 Monitoring electrodes] Respiratory 13 12 Rate Blood Pressure 71/56 L 77/51 L [Left Brachial artery] O2 Saturation 98 96 Oxygen O2 Source Mechanical ventilator I&O (Last 24 Hrs): Intake and Output Totals x24h 07/25/21 07/26/21 07/27/21 23:59 23:59 23:59 Intake Total 4551.189 2453.617 1264.566 Output Total 2468 1566 920 Balance 2083.189 887.617 344.566 General: Other (seddated, intubated) HEENT: Mucous membr. moist/pink, Other (Thin white female) Neck: Supple Neuro: Other (sedated) Cardiovascular: Regular rate, No murmurs Respiratory: Other (clear lungs, on vent w/ ET tube) Abdomen: Soft Extremities: Other (2+ edema of extremities) - Results Results: Laboratory Results WBC 6.4 x10^3/uL (4.8-10.8) 07/27/21 05:19 RBC 3.06 10^6/uL (4.20-5.40) L 07/27/21 05:19 Hgb 9.0 g/dL (12.0-16.0) L 07/27/21 05:19 Hct 28.2 % (37.0-47.0) L 07/27/21 05:19 MCV 92.2 fL (81.0-99.0) 07/27/21 05:19 MCH 29.4 pg (27.0-31.0) 07/27/21 05:19 MCHC 31.9 g/dL (32.0-36.0) L 07/27/21 05:19 RDW 21.6 % (12.0-15.0) H 07/27/21 05:19 Plt Count 149 10^3/uL (130-450) 07/27/21 05:19 MPV 12.7 fL (7.9-10.8) H 07/27/21 05:19 Neut # (Auto) 4.6 10^3/uL (1.5-6.6) 07/27/21 05:19 Lymph # (Auto) 1.1 10^3/uL (1.5-3.5) L 07/27/21 05:19 [place] # (Auto) 0.4 10^3/uL (0.0-1.0) 07/27/21 05:19 Eos # (Auto) 0.3 10^3/uL (0.0-0.7) 07/27/21 05:19 Baso # (Auto) 0.0 10^3/uL (0.0-0.1) 07/27/21 05:19 Absolute Nucleated RBC 0.00 x10^3/uL 07/27/21 05:19 Total Counted 100 07/25/21 04:33 Band Neuts % (Manual) 2 % (0-10) 07/25/21 04:33 Abnorm Lymph % (Manual) 0 % 07/25/21 04:33 Metamyelocytes % 1 % (-0) H 07/24/21 04:12 Myelocytes % 1 % (-0) H 07/24/21 04:12 Nucleated RBC % 0.0 /100WBC 07/27/21 05:19 Neutrophils # (Manual) 4.0 10^3/uL (1.5-6.6) 07/25/21 04:33 Lymphocytes # (Manual) 1.0 10^3/uL (1.5-3.5) L 07/25/21 04:33 Monocytes # (Manual) 0.7 10^3/uL (0.0-1.0) 07/25/21 04:33 Eosinophils # (Manual) 0.4 10^3/uL (0-0.7) 07/25/21 04:33 Basophils # (Manual) 0.0 10^3/uL (0-0.1) 07/25/21 04:33 Differential Comment MANUAL DIFFERENTIAL 07/25/21 04:33 Manual Slide Review Indicated 07/27/21 05:19 WBC Morphology NORMAL APPEARANCE (NORMAL) 07/27/21 05:19 Platelet Estimate NORMAL (130-450,000) (NORMAL) 07/27/21 05:19 Platelet Morphology NORMAL APPEARANCE (NORMAL) 07/27/21 05:19 RBC Morph Micro Appear 2+ ANISOCYTOSIS (NORMAL) 07/27/21 05:19 Bld Gas Analysis Time 0808 07/20/21 08:08 Sample Site LEFT RADIAL 07/20/21 08:08 ABG pH 7.39 (7.35-7.45) 07/20/21 08:08 ABG pCO2 45 mmHg (34-45) 07/20/21 08:08 ABG pO2 62 mmHg (80-100) L 07/20/21 08:08 ABG HCO3 26.3 mmol/L (22.0-26.0) H 07/20/21 08:08 ABG Total CO2 27.7 MMOL/L (21.0-29.0) 07/20/21 08:08 ABG O2 Saturation 91 % (94-98) L 07/20/21 08:08 ABG Base Excess 1.1 mmol/L (-2.0-3.0) 07/20/21 08:08 Ruperto Test POSITIVE 07/20/21 08:08 VBG pH 7.454 (7.31-7.41) H 07/26/21 21:00 Ionized Calcium 1.05 mmol/L (1.15-1.33) L 07/26/21 21:00 Respiration Rate 12 b/min 07/20/21 08:08 O2 Delivery Device VENTILATOR 07/20/21 08:08 O2 Liters/Min 4.50 LPM 07/17/21 18:35 Vent Mode AC/VC 07/20/21 08:08 FiO2 25.00 07/20/21 08:08 Tidal Volume 420 mL 07/20/21 08:08 PEEP 5 cmH2O 07/20/21 08:08 Pressure Support Vent 12 cmH2O 07/05/21 11:00 IPAP Not Reportable 06/27/21 05:43 Sodium 133 mmol/L (135-145) L 07/27/21 05:19 Potassium 3.7 mmol/L (3.5-5.0) 07/27/21 05:19 Chloride 99 mmol/L (101-111) L 07/27/21 05:19 Carbon Dioxide 24 mmol/L (21-32) 07/27/21 05:19 Anion Gap 10.0 (6-13) 07/27/21 05:19 BUN 12 mg/dL (6-20) 07/27/21 05:19 Creatinine 0.5 mg/dL (0.4-1.0) 07/27/21 05:19 Estimated GFR (MDRD) 119 (>89) 07/27/21 05:19 Glucose 152 mg/dL (70-100) H 07/27/21 05:19 POC Whole Bld Glucose 141 mg/dL (70 - 100) H 07/27/21 12:27 Lactic Acid 1.0 mmol/L (0.5-2.2) 07/21/21 12:54 Calcium 7.2 mg/dL (8.5-10.3) L 07/27/21 05:19 Ionized Calcium YES 07/04/21 04:43 Phosphorus 2.8 mg/dL (2.5-4.6) 07/27/21 05:19 Magnesium 1.9 mg/dL (1.7-2.8) 07/27/21 05:19 Iron 11 ug/dL (28-170) L 07/04/21 04:43 TIBC 115 ug/dL (250-450) L 07/04/21 04:43 % Saturation 10 % (20-50) L 07/04/21 04:43 Transferrin 82 mg/dL (192-382) L 07/04/21 04:43 Total Bilirubin 0.2 mg/dL (0.2-1.0) 07/19/21 05:50 Direct Bilirubin 0.2 mg/dL (0.1-0.5) 07/19/21 05:50 AST 96 IU/L (10-42) H 07/19/21 05:50 ALT 54 IU/L (10-60) 07/19/21 05:50 Alkaline Phosphatase 137 IU/L (42-121) H 07/19/21 05:50 Troponin I High Sens 121.5 ng/L (2.3-14.8) H* 07/18/21 06:51 C-Reactive Protein 7.1 mg/dL (0-1.0) H 07/04/21 04:43 B-Natriuretic Peptide 364 pg/mL (5-100) H 07/25/21 16:05 Total Protein 4.6 g/dL (6.7-8.2) L 07/19/21 05:50 Albumin 1.7 g/dL (3.2-5.5) L 07/19/21 05:50 Globulin 2.9 g/dL (2.1-4.2) 07/19/21 05:50 Albumin/Globulin Ratio 0.6 (1.0-2.2) L 07/17/21 07:50 Prealbumin 5 mg/dL (18-45) L 07/22/21 04:54 Triglycerides 69 mg/dL (-149) 07/19/21 05:50 Cholesterol 78 mg/dL (-199) 07/19/21 05:50 LDL Cholesterol, Calc 45 mg/dL (-129) 07/19/21 05:50 VLDL Cholesterol 14 mg/dL 07/19/21 05:50 HDL Cholesterol 19 mg/dL (60-) L 07/19/21 05:50 LDL/HDL Ratio 2.4 (<4.4) 07/19/21 05:50 Cholesterol/HDL Ratio 4.1 (<4.4) 07/19/21 05:50 Lipase 42 U/L (22-51) 06/26/21 14:26 TSH 3.87 uIU/mL (0.34-5.60) 07/25/21 16:05 Free T4 0.97 ng/dL (0.58-1.64) 07/02/21 04:42 Cortisol AM Sample 6.1 ug/dL 07/05/21 05:31 Urine Color YELLOW 06/26/21 22:51 Urine Clarity CLEAR (CLEAR) 06/26/21 22:51 Urine pH 5.0 PH (5.0-7.5) 06/26/21 22:51 Ur Specific [place] 1.015 (1.002-1.030) 06/26/21 22:51 Urine Protein NEGATIVE mg/dL (NEGATIVE) 06/26/21 22:51 Urine Glucose (UA) NEGATIVE mg/dL (NEGATIVE) 06/26/21 22:51 Urine Ketones NEGATIVE mg/dL (NEGATIVE) 06/26/21 22:51 Urine Occult Blood NEGATIVE (NEGATIVE) 06/26/21 22:51 Urine Nitrite NEGATIVE (NEGATIVE) 06/26/21 22:51 Urine Bilirubin NEGATIVE (NEGATIVE) 06/26/21 22:51 Urine Urobilinogen 0.2 (NORMAL) E.U./dL (NORMAL) 06/26/21 22:51 Ur Leukocyte Esterase TRACE (NEGATIVE) H 06/26/21 22:51 Urine RBC 0-5 /HPF (0-5) 06/26/21 22:51 Urine WBC 4-5 /HPF (0-5) 06/26/21 22:51 Ur Squamous Epith Cells FEW Squamous (<= Few) 06/26/21 22:51 Urine Bacteria Few /HPF (None Seen) 06/26/21 22:51 Urine Casts 3-5 Hyaline Casts /LPF 06/26/21 22:51 Ur Microscopic Review INDICATED 06/26/21 22:51 Urine Culture Comments INDICATED 06/26/21 22:51 Nasal Adenovirus (PCR) NOT DETECTED 07/14/21 16:00 Nasal B. parapertussis DNA (PCR) NOT DETECTED 07/14/21 16:00 Nasal Coronavir 229E PCR NOT DETECTED 07/14/21 16:00 Nasal Coronavir HKU1 PCR NOT DETECTED 07/14/21 16:00 Nasal Coronavir NL63 PCR NOT DETECTED 07/14/21 16:00 Nasal Coronavir OC43 PCR NOT DETECTED 07/14/21 16:00 Nasal Enterovir/Rhinovir PCR NOT DETECTED 07/14/21 16:00 Nasal Influenza B PCR NOT DETECTED 07/14/21 16:00 Nasal Influenza A PCR NOT DETECTED 07/14/21 16:00 Nasal Parainfluen 1 PCR NOT DETECTED 07/14/21 16:00 Nasal Parainfluen 2 PCR NOT DETECTED 07/14/21 16:00 Nasal Parainfluen 3 PCR NOT DETECTED 07/14/21 16:00 Nasal Parainfluen 4 PCR NOT DETECTED 07/14/21 16:00 Nasal RSV (PCR) NOT DETECTED 07/14/21 16:00 Nasal Screen MRSA (PCR) NEGATIVE (NEGATIVE) 06/26/21 21:55 Nasal B.pertussis DNA PCR NOT DETECTED 07/14/21 16:00 Nasal C.pneumoniae (PCR) NOT DETECTED 07/14/21 16:00 Mk Human Metapneumo PCR NOT DETECTED 07/14/21 16:00 Nasal M.pneumoniae (PCR) NOT DETECTED 07/14/21 16:00 Nasal SARS-CoV-2 (PCR) NOT DETECTED 07/14/21 16:00 Last Dose Date 07/19/2021 07/19/21 05:50 Last Dose Time 0100 07/19/21 05:50 Vancomycin Trough 16.8 ug/mL (10.0-20.0) 07/15/21 15:30 Digoxin 1.4 ng/mL 07/19/21 05:50 - Procedures Procedures: Procedures RESPIRATORY VENTILATION, LESS THAN 24 CONSECUTIVE HOURS (01/11/20) Sepsis Event Note (H) - Evaluation Current Stage of Sepsis: Septic shock Possible source of Sepsis: positive: GI tract/intra-abdominal - Sepsis Criteria Sepsis Criteria: WBC count greater than 10% bands, SBP drop more than 40mHg, MAP less than 65 mmHg, SBP less than 90 mmHg, Renal: urine output less than 0.5ml/kg/hr for 2 hours or creatinine gr, Metabolic: lactate > 2 mmol/L
[2021-07-27 14:54] LABS: ABG PCO2 26 mmHg (34-45); ABG PH 7.59 (7.35-7.45)
[2021-07-27 14:55] LABS: ABG BASE EXCESS 2.5 mmol/L (-2.0-3.0); ABG HCO3 23.8 mmol/L (22.0-26.0); ABG MODE OF VENTILATION SIMV; ABG OXYGEN SATURATION 97 % (94-98); ABG PO2 86 mmHg (80-100); ABG TCO2 24.5 MMOL/L (21.0-29.0); ALLEN TEST POSITIVE
[2021-07-27 14:56] LABS: ABG RESPIRATORY RATE 12 b/min
[2021-07-27] MEDS ORDERED: POTASSIUM CHLOR 20 MEQ/100 ML 20 MEQ/100 ML BAG IV ONE (16:00)
[2021-07-27] MEDS: FAT EMUL/SOY/MCT/OLIV/FISH OIL 50 GM/250 ML BAG IV SCH (19:19)
[2021-07-27] MEDS: TPN (CLINIMIX E 5/15) 2,000 ML with MULTIVITAMIN 10 ML, TRACE ELEMENTS 1 ML, POTASSIUM ... IV SCH ×4 (19:20)
[2021-07-28] MEDS: DEXMEDETOMIDINE 1,000 MCG in SODIUM CHLORIDE 0.9% 240 ML IV PRN ×2 (00:03→10:39)
[2021-07-28] MEDS: SODIUM CHLORIDE FLUSH 0.9% 10 ML SYRINGE IVP SCH ×4 (00:06→23:47)
[2021-07-28] MEDS: SODIUM CHLORIDE 0.9% 500 ML IV PRN (03:17)
[2021-07-28 05:10] LABS: CALCIUM, IONIZED 1.02 mmol/L (1.15-1.33); VBG PH 7.401 (7.31-7.41)
[2021-07-28] MEDS: MIDODRINE 2.5 MG TABLET PO SCH ×3 (05:12→21:41)
[2021-07-28] MEDS: FUROSEMIDE 40 MG/4 ML VIAL IVP SCH ×2 (05:12→14:51)
[2021-07-28 05:14] LABS: BASOPHILS % (AUTO) 0.4 %; EOSINOPHILS # (AUTO) 0.1 10^3/uL (0.0-0.7); EOSINOPHILS % (AUTO) 0.9 %; HCT - HEMATOCRIT 30.6 % (37.0-47.0); HGB - HEMOGLOBIN 9.7 g/dL (12.0-16.0); LYMPHOCYTES # (AUTO) 0.5 10^3/uL (1.5-3.5); LYMPHOCYTES % (AUTO) 4.3 %; MEAN CORPUSCULAR HEMOGLOBIN 30.1 pg (27.0-31.0); MEAN CORPUSCULAR HGB CONC 31.7 g/dL (32.0-36.0); MEAN PLATELET VOLUME 13.5 fL (7.9-10.8); MONOCYTES # (AUTO) 0.3 10^3/uL (0.0-1.0); MONOCYTES % (AUTO) 2.7 %; NEUTROPHILS # (AUTO) 10.1 10^3/uL (1.5-6.6); NEUTROPHILS % (AUTO) 90.9 %; PLT - PLATELET COUNT 144 10^3/uL (130-450); RED BLOOD COUNT 3.22 10^6/uL (4.20-5.40); RED CELL DISTRIBUTION WIDTH 21.9 % (12.0-15.0); SLIDE REVIEW? Indicated; WHITE BLOOD COUNT 11.1 x10^3/uL (4.8-10.8)
[2021-07-28 05:22] LABS: CALCIUM 7.2 mg/dL (8.5-10.3); CREATININE 0.5 mg/dL (0.4-1.0); MAGNESIUM 1.7 mg/dL (1.7-2.8); PHOSPHORUS 2.7 mg/dL (2.5-4.6); POTASSIUM 3.9 mmol/L (3.5-5.0)
[2021-07-28 05:33] LABS: PLATELET ESTIMATE, MANUAL NORMAL (130-450,000) (NORMAL); PLATELET MORPHOLOGY NORMAL APPEARANCE (NORMAL); RBC MORPHOLOGY (MULTIPLE) 2+ ANISOCYTOSIS (NORMAL); WBC MORPHOLOGY (MULTIPLE) NORMAL APPEARANCE (NORMAL)
[2021-07-28] MEDS: PANTOPRAZOLE 40 MG VIAL IVP SCH (06:09)
[2021-07-28] MEDS ORDERED: CALCIUM GLUCONATE 1,000 MG in SODIUM CHLORIDE 0.9% 50 ML IV ONE (06:16)
[2021-07-28] MEDS: ENOXAPARIN 40 MG/0.4 ML SYRINGE SUBQ SCH (10:34)
[2021-07-28] MEDS: CHLORHEXIDINE GLUCONATE 15 ML UDC PO SCH ×2 (10:34→20:15)
[2021-07-28] MEDS ORDERED: POTASSIUM CHLOR 20 MEQ/100 ML 20 MEQ/100 ML BAG IV ONE (10:46)
[2021-07-28] MEDS: ALBUMIN 25% 12.5 GM/50 ML VIAL IV SCH (12:14)
--- NOTE | 2021-07-28 14:09 | PROVIDER PROGRESS NOTE ---
Subjective - General Admit Date: 06/26/21 Procedure Date: 06/26/21 Post Op Days: 32 Procedure Performed: Exploratory laparotomy with repair of posterior duodenal ulcer - Review of Systems Wound/Incisions: positive: No drainage, Other (Healed.) - Other Other Information/Narrative: Patient is intubated and sedated - impossible to obtain an accurate interpretation of status. Objective - Patient Data Reviewed Vital Signs: Yes Vital Signs: Vital Signs x48h Temp Pulse Pulse Resp BP Pulse Ox 07/28/21 13:25 77 07/28/21 13:00 36.2 C L 66 32 H 74/63 L 95 07/28/21 12:00 36.7 C 78 18 74/64 L 100 07/28/21 11:25 76 07/28/21 11:00 75 14 75/56 L 96 07/28/21 10:00 36.5 C 78 19 96/68 100 07/28/21 08:55 74 07/28/21 08:30 74 18 83/58 L 07/28/21 08:00 74 16 76/63 L 98 07/28/21 07:00 80 86 16 94/55 L 96 07/28/21 06:31 113/61 07/28/21 06:22 118/92 H 07/28/21 06:16 105/60 Weight: Weight 07/26/21 07/27/21 07/28/21 23:59 23:59 23:59 Weight (kg) 88.5 kg 91.1 kg 90.7 kg Intake & Output: Intake and Output Totals x24h 07/26/21 07/27/21 07/28/21 23:59 23:59 23:59 Intake Total 2453.617 3003.129 1436.520 Output Total 1566 1440 645 Balance 206.013 5886.129 791.520 - Lab Results Lab Results: 07/28/21 04:46 07/28/21 04:46 Other Lab Results: Lab Results x24hrs 07/28/21 07/28/21 07/28/21 Range/Units 12:45 04:46 04:46 WBC 11.1 H (4.8-10.8) x10^3/uL RBC 3.22 L (4.20-5.40) 10^6/uL Hgb 9.7 L (12.0-16.0) g/dL Hct 30.6 L (37.0-47.0) % MCV 95.0 (81.0-99.0) fL MCH 30.1 (27.0-31.0) pg MCHC 31.7 L (32.0-36.0) g/dL RDW 21.9 H (12.0-15.0) % Plt Count 144 (130-450) 10^3/uL MPV 13.5 H (7.9-10.8) fL Neut # (Auto) 10.1 H (1.5-6.6) 10^3/uL Lymph # (Auto) 0.5 L (1.5-3.5) 10^3/uL [place] # (Auto) 0.3 (0.0-1.0) 10^3/uL Eos # (Auto) 0.1 (0.0-0.7) 10^3/uL Baso # (Auto) 0.0 (0.0-0.1) 10^3/uL Absolute Nucleated RBC 0.00 x10^3/uL Nucleated RBC % 0.0 /100WBC Manual Slide Review Indicated WBC Morphology NORMAL APPEARANCE (NORMAL) Platelet Estimate NORMAL (130-450,000) (NORMAL) Platelet Morphology NORMAL APPEARANCE (NORMAL) RBC Morph Micro Appear 2+ ANISOCYTOSIS (NORMAL) Bld Gas Analysis Time Sample Site ABG pH (7.35-7.45) ABG pCO2 (34-45) mmHg ABG pO2 (80-100) mmHg ABG HCO3 (22.0-26.0) mmol/L ABG Total CO2 (21.0-29.0) MMOL/L ABG O2 Saturation (94-98) % ABG Base Excess (-2.0-3.0) mmol/L Ruperto Test VBG pH 7.401 (7.31-7.41) Ionized Calcium 1.02 L (1.15-1.33) mmol/L Respiration Rate b/min O2 Delivery Device Vent Mode FiO2 Tidal Volume mL PEEP cmH2O Pressure Support Vent cmH2O Sodium (135-145) mmol/L Potassium (3.5-5.0) mmol/L Chloride (101-111) mmol/L Carbon Dioxide (21-32) mmol/L Anion Gap (6-13) BUN (6-20) mg/dL Creatinine (0.4-1.0) mg/dL Estimated GFR (MDRD) (>89) Glucose (70-100) mg/dL POC Whole Bld Glucose 158 H (70 - 100) mg/dL Calcium (8.5-10.3) mg/dL Phosphorus (2.5-4.6) mg/dL Magnesium (1.7-2.8) mg/dL 07/28/21 07/27/21 07/27/21 Range/Units 04:46 23:01 18:37 WBC (4.8-10.8) x10^3/uL RBC (4.20-5.40) 10^6/uL Hgb (12.0-16.0) g/dL Hct (37.0-47.0) % MCV (81.0-99.0) fL MCH (27.0-31.0) pg MCHC (32.0-36.0) g/dL RDW (12.0-15.0) % Plt Count (130-450) 10^3/uL MPV (7.9-10.8) fL Neut # (Auto) (1.5-6.6) 10^3/uL Lymph # (Auto) (1.5-3.5) 10^3/uL [place] # (Auto) (0.0-1.0) 10^3/uL Eos # (Auto) (0.0-0.7) 10^3/uL Baso # (Auto) (0.0-0.1) 10^3/uL Absolute Nucleated RBC x10^3/uL Nucleated RBC % /100WBC Manual Slide Review WBC Morphology (NORMAL) Platelet Estimate (NORMAL) Platelet Morphology (NORMAL) RBC Morph Micro Appear (NORMAL) Bld Gas Analysis Time Sample Site ABG pH (7.35-7.45) ABG pCO2 (34-45) mmHg ABG pO2 (80-100) mmHg ABG HCO3 (22.0-26.0) mmol/L ABG Total CO2 (21.0-29.0) MMOL/L ABG O2 Saturation (94-98) % ABG Base Excess (-2.0-3.0) mmol/L Ruperto Test VBG pH (7.31-7.41) Ionized Calcium (1.15-1.33) mmol/L Respiration Rate b/min O2 Delivery Device Vent Mode FiO2 Tidal Volume mL PEEP cmH2O Pressure Support Vent cmH2O Sodium 132 L (135-145) mmol/L Potassium 3.9 (3.5-5.0) mmol/L Chloride 98 L (101-111) mmol/L Carbon Dioxide 25 (21-32) mmol/L Anion Gap 9.0 (6-13) BUN 14 (6-20) mg/dL Creatinine 0.5 (0.4-1.0) mg/dL Estimated GFR (MDRD) 119 (>89) Glucose 156 H (70-100) mg/dL POC Whole Bld Glucose 150 H 153 H (70 - 100) mg/dL Calcium 7.2 L (8.5-10.3) mg/dL Phosphorus 2.7 (2.5-4.6) mg/dL Magnesium 1.7 (1.7-2.8) mg/dL 07/27/21 Range/Units 14:47 WBC (4.8-10.8) x10^3/uL RBC (4.20-5.40) 10^6/uL Hgb (12.0-16.0) g/dL Hct (37.0-47.0) % MCV (81.0-99.0) fL MCH (27.0-31.0) pg MCHC (32.0-36.0) g/dL RDW (12.0-15.0) % Plt Count (130-450) 10^3/uL MPV (7.9-10.8) fL Neut # (Auto) (1.5-6.6) 10^3/uL Lymph # (Auto) (1.5-3.5) 10^3/uL [place] # (Auto) (0.0-1.0) 10^3/uL Eos # (Auto) (0.0-0.7) 10^3/uL Baso # (Auto) (0.0-0.1) 10^3/uL Absolute Nucleated RBC x10^3/uL Nucleated RBC % /100WBC Manual Slide Review WBC Morphology (NORMAL) Platelet Estimate (NORMAL) Platelet Morphology (NORMAL) RBC Morph Micro Appear (NORMAL) Bld Gas Analysis Time 1455 Sample Site RIGHT RADIAL ABG pH 7.59 H (7.35-7.45) ABG pCO2 26 L (34-45) mmHg ABG pO2 86 (80-100) mmHg ABG HCO3 23.8 (22.0-26.0) mmol/L ABG Total CO2 24.5 (21.0-29.0) MMOL/L ABG O2 Saturation 97 (94-98) % ABG Base Excess 2.5 (-2.0-3.0) mmol/L Ruperto Test POSITIVE VBG pH (7.31-7.41) Ionized Calcium (1.15-1.33) mmol/L Respiration Rate 12 b/min O2 Delivery Device VENTILATOR Vent Mode SIMV FiO2 25.00 Tidal Volume 420 mL PEEP 5 cmH2O Pressure Support Vent 10 cmH2O Sodium (135-145) mmol/L Potassium (3.5-5.0) mmol/L Chloride (101-111) mmol/L Carbon Dioxide (21-32) mmol/L Anion Gap (6-13) BUN (6-20) mg/dL Creatinine (0.4-1.0) mg/dL Estimated GFR (MDRD) (>89) Glucose (70-100) mg/dL POC Whole Bld Glucose (70 - 100) mg/dL Calcium (8.5-10.3) mg/dL Phosphorus (2.5-4.6) mg/dL Magnesium (1.7-2.8) mg/dL - Current Medications Current Medications: Current Medications Generic Name Dose Route Start Last Admin Trade Name Freq PRN Reason Stop Dose Admin Acetaminophen 650 mg 07/17/21 11:05 07/21/21 10:00 Acetaminophen 325 Mg Tablet PO 650 mg Q6HR PRN Administration Pain or Fever > 38C (100.4F) Chlorhexidine Gluconate 15 ml 06/27/21 21:00 07/28/21 10:34 Chlorhexidine Gluconate 15 Ml Udc PO 15 ml BID JULIETA Administration Enoxaparin Sodium 40 mg 06/28/21 09:00 07/28/21 10:34 Enoxaparin 40 Mg/0.4 Ml Syringe SUBQ 40 mg DAILY JULIETA Administration Furosemide 40 mg 07/26/21 06:00 07/28/21 05:12 Furosemide 40 Mg/4 Ml Vial IVP 40 mg BIDDIURETIC JULIETA Administration Glycopyrrolate 0.2 mg 06/28/21 21:17 07/26/21 16:14 Glycopyrrolate 1 Mg/5 Ml Vial SUBQ 0.2 mg Q6H PRN Administration Excessive Secretions Sodium Chloride 500 mls @ 20 mls/hr 06/26/21 23:03 07/28/21 03:17 Normal Saline 0.9% IV 20 mls/hr Q24H PRN Administration TKO RATE Dexmedetomidine HCl 1,000 mcg/ 250 mls @ 32.438 mls/hr 07/22/21 13:30 07/28/21 10:39 Sodium Chloride IV 1.1 mcg/kg/hr .Q7H43M PRN 23.788 mls/hr Agitation Administration Protocol 1.5 MCG/KG/HR Fat Emulsion-Soy/MCT/[place]/Fish Oil 50 gm in 250 mls @ 21 mls/hr 07/24/21 19:00 07/28/21 06:34 Smoflipid 20% Iv Fat Emulsion IV 07/28/21 18:00 Infused 1900 JULIETA Infusion Multivitamins 10 ml/ TRACE 2,051 mls @ 42 mls/hr 07/25/21 19:00 07/27/21 19:20 ELEMENTS 1 ml/ Potassium IV 07/28/21 18:59 42 mls/hr Chloride 80 meq/ Amino Ac/ Q24H JULIETA Administration Electrol/Dextrose/Calcium Protocol Midazolam HCl 50 mg in 100 mls @ 7.08 mls/hr 07/26/21 14:00 07/27/21 22:25 Versed Drip IV 0.04 mg/kg/hr .Q14H8M JULIETA 7.08 mls/hr Administration Protocol 0.04 MG/KG/HR Albumin Human 12.5 gm in 50 mls @ 50 mls/hr 07/27/21 12:00 07/28/21 12:14 Albuminar-25 IV 07/30/21 00:01 50 mls/hr 1200 JULIETA Administration Norepinephrine Bitartrate 8 mg 250 mls @ 15 mls/hr 07/27/21 16:00 07/28/21 06:22 / Dextrose IV 0 mcg/min .[id number] PRN 0 mls/hr HYPOTENSION Titration Protocol 8 MCG/MIN Levothyroxine Sodium 130 mcg 07/12/21 12:00 07/25/21 06:34 Levothyroxine 100 Mcg Vial IVP 130 mcg MoTh@0700 JULIETA Administration Lorazepam 1 mg 07/26/21 10:29 07/27/21 13:35 Lorazepam 2 Mg/Ml Vial IVP 1 mg Q6H PRN Administration Anxiety Mineral Oil 1 applic 07/01/21 01:24 07/06/21 20:24 Min Oil/Dimethicon/Coconut Oil 92 Gm Tube TOP 1 ea PRN PRN Administration Skin Care Pantoprazole Sodium 40 mg 06/27/21 07:00 07/28/21 06:09 Pantoprazole 40 Mg Vial IVP 40 mg QDAC JULIETA Administration Phenol/Menthol 2 sprays 07/05/21 21:24 07/07/21 11:03 Phenol Throat [place] 177 Ml MM 2 sprays Q2HR PRN Administration Throat Pain Scopolamine HBr 1 patch 07/25/21 23:00 07/25/21 23:42 Scopolamine Patch TOP 1 patch Q3D JULIETA Administration Sodium Chloride 10 ml 06/27/21 01:00 07/28/21 10:35 Sodium Chloride Flush 0.9% 10 Ml Syringe IVP Not Given 0100,0900,1700 JULIETA Sodium Chloride 10 ml 06/26/21 20:54 07/25/21 18:50 Sodium Chloride Flush 0.9% 10 Ml Syringe IVP 10 ml PRN PRN Administration NEEDED PER PROVIDER ORDERS Sodium Chloride 20 ml 06/26/21 23:03 07/26/21 03:40 Sodium Chloride Flush 0.9% 10 Ml Syringe IVP 20 ml PRN PRN Administration After Blood Draw - Physical Exam Wound/Incisions: positive: Other (Healed.) General Appearance: positive: Other (Intubated and sedated and appears less agitated.) Eyes Bilateral: positive: No scleral icterus ENT: positive: Dry mucous membranes Neck: positive: Trachea midline Respiratory: positive: Breath sounds nml (Anterolaterally.) Abdomen: positive: Nml bowel sounds, Other (Soft doughy.) Skin: positive: Color nml Neurologic/Psychiatric: positive: Other (Again intubated and sedated with a preprocedure background of developmental delay.) ABX Reporting Has patient been on IV antibiotics over the past 48 hours?: No Impression/Plan - Problem List Problem List: POD 32 s/p exploratory laparotomy with pyloroplasty and [place] patch 1) FEN Promote provides a high protein 1 martha/mL nutrition and this patient's requirement per day should be between 4230-4302 kcal/day. The goal for tube feeding should then be between 65-70 mL/hour. Despite order to run TF until they ran out this was not done and another bag was hung. Numerous bowel movements yesterday. Additional lipids not required. Expect that with enteral feeding anasarca will resolve. I am mindful of the fact that with the surgery she required a PEG is unlikely to be optimal. Can consider a PEG/PEJ but an open technique may be required. A swallow study does not make sense considering her clinical status/course. 2) ID WBC elevated today but so did all the values on the CBC. This is due to hemoconcentration and NOT infection. No fever. No tachycardia. Antibiotics not indicated. 3) Pulmonary Patient is not ventilator dependent rather she has not been able to handle her secretions the past two times that she has been extubated. The question remains that when the anasarca is resolved will she have the problem of increased secretions? Tracheostomy remains an option should the patient require it. Should the patient require a feeding tube it would make sense to do it in conjunction with the tracheostomy. I believe that the patient is doing much better on SIMV rather than on AC (calmer and she is doing much of the work of breathing). 4) Cardiac She has been weaned off the levophed. Blood pressure holding. 5) Psych Consider crushing pills (that can be safely crushed - coordinate with pharmacist) and start her on her regular meds through the NG tube. 6) Hypothyroid Same as #5 above - crush the pills and give them. I appreciate the opportunity to be involved in her care and when Dr. Dobson takes over her care I am more than willing to provide any support that is needed (if any).
[2021-07-28] MEDS: MIDAZOLAM DRIP 50 MG/100 ML BAG IV SCH (14:30)
[2021-07-28] MEDS: SODIUM CHLORIDE FLUSH 0.9% 10 ML SYRINGE IVP PRN (14:52)
--- NOTE | 2021-07-28 17:26 | PROVIDER PROGRESS NOTE ---
Assessment/Plan - Problem List (1) Acute respiratory failure requiring reintubation Assessment/Plan: (1) Acute respiratory failure requiring reintubation Assessment/Plan: Patient not restless on the vent today after iv Versed was added for sedation, to Precedex several days ago. She continues to be afebrile. Consulted Dr. Tobi Adrian for trach and J tube for feeds. Following his recommendations, the following changes were made: Pt off fentanyl Titrating Levophed to off and to stay off by increasing new scheduled Midodrine ordered for low BP, target MAP is 55. Dr Adrian can do a tracheostomy and j-tube at that time (2) On mechanically assisted ventilation Assessment/Plan: No significant change in patient's clinical status This is her third intubation; she was unable to handle secretions when extubated Overall patient has been intubated for over 21 days. She is off fentanyl. Continuing precedex and Versed added several days ago for head thrashing. A tracheostomy is indicated. Dr. Adrian may plan for creating the t racheostomy. Assist control was changed to SIMV so that she starts to breathe more on her own. She is tolerating this. After the trach is done, will start to decrease her sedatives. (3) Ileus following gastrointestinal surgery Assessment/Plan: Resolved, she has had 2 days making stool (4) Anasarca Assessment/Plan: Improvement in swelling in upper extremities. Continue with Lasix 60 mg IV twice daily. She is ordered to get daily iv Albumen at noon for a total of 4 days. (5) Chronic diastolic heart failure Assessment/Plan: Echo December 2019 had ejection fraction of 65 to 70%. Mild tricuspid regurgitation. RVSP was 43 mmHg. Echo January 2020 had ejection fraction of 55 to 60%. Echocardiogram done June 27, 2021 has an ejection fraction of 40 to 45% with systolic function globally impaired. Right ventricular pacing evident. (Pacer was placed in September 2020?) Mild to moderate right ventricular enlargement. Moderate to severe mitral regurgitation. Moderate LAE, severe ORI. Continue giving Albumen and Lasix 60 mg iv bid. (6) Perforated duodenal ulcer Assessment/Plan: Postop day #31. Status post ex lap with repair of posterior duodenal ulcer that had perforated General surgery following. (7) Hypothyroidism Assessment/Plan: On Synthroid 130 mcg IV Mondays and . TSH on 07/25/21 was 3.87 (8) History of atrial fibrillation Assessment/Plan: Rate controlled. Not on any medication for rate control. (9) History of pulmonary embolism Assessment/Plan: On Lovenox 40 mg subcu daily and SCD's for DVT prophylaxis. (10) Schizophrenia Assessment/Plan: Seroquel discontinued when patient sedated on vent (11) Iron deficiency anemia Assessment/Plan: Hemoglobin stable. We will continue to monitor. (12) Aspiration pneumonia Assessment/Plan: Flagyl, Levaquin and Diflucan discontinued on 07/25/21. Her pulm resistance on the vent is good, per report of RT . (13) Septic shock Assessment/Plan: Resolved. Secondary to aspiration pneumonia. Flagyl, Levaquin and Diflucan discontinued on 07/25/21 - Current Meds Current Meds: Current Medications Generic Name Dose Route Start Last Admin Trade Name Freq PRN Reason Stop Dose Admin Acetaminophen 650 mg 07/17/21 11:05 07/21/21 10:00 Acetaminophen 325 Mg Tablet PO 650 mg Q6HR PRN Administration Pain or Fever > 38C (100.4F) Chlorhexidine Gluconate 15 ml 06/27/21 21:00 07/28/21 10:34 Chlorhexidine Gluconate 15 Ml Udc PO 15 ml BID JULIETA Administration Enoxaparin Sodium 40 mg 06/28/21 09:00 07/28/21 10:34 Enoxaparin 40 Mg/0.4 Ml Syringe SUBQ 40 mg DAILY JULIETA Administration Furosemide 40 mg 07/26/21 06:00 07/28/21 14:51 Furosemide 40 Mg/4 Ml Vial IVP 40 mg BIDDIURETIC JULIETA Administration Glycopyrrolate 0.2 mg 06/28/21 21:17 07/26/21 16:14 Glycopyrrolate 1 Mg/5 Ml Vial SUBQ 0.2 mg Q6H PRN Administration Excessive Secretions Sodium Chloride 500 mls @ 20 mls/hr 06/26/21 23:03 07/28/21 03:17 Normal Saline 0.9% IV 20 mls/hr Q24H PRN Administration TKO RATE Dexmedetomidine HCl 1,000 mcg/ 250 mls @ 32.438 mls/hr 07/22/21 13:30 07/28/21 10:39 Sodium Chloride IV 1.1 mcg/kg/hr .Q7H43M PRN 23.788 mls/hr Agitation Administration Protocol 1.5 MCG/KG/HR Fat Emulsion-Soy/MCT/[place]/Fish Oil 50 gm in 250 mls @ 21 mls/hr 07/24/21 19:00 07/28/21 06:34 Smoflipid 20% Iv Fat Emulsion IV 07/28/21 18:00 Infused 1900 JULIETA Infusion Multivitamins 10 ml/ TRACE 2,051 mls @ 42 mls/hr 07/25/21 19:00 07/27/21 19:20 ELEMENTS 1 ml/ Potassium IV 07/28/21 18:59 42 mls/hr Chloride 80 meq/ Amino Ac/ Q24H JULIETA Administration Electrol/Dextrose/Calcium Protocol Midazolam HCl 50 mg in 100 mls @ 7.08 mls/hr 07/26/21 14:00 07/28/21 14:30 Versed Drip IV 0.03 mg/kg/hr .Q14H8M JULIETA 5.3 mls/hr Administration Protocol 0.04 MG/KG/HR Albumin Human 12.5 gm in 50 mls @ 50 mls/hr 07/27/21 12:00 07/28/21 12:14 Albuminar-25 IV 07/30/21 00:01 50 mls/hr 1200 JULIETA Administration Levothyroxine Sodium 130 mcg 07/12/21 12:00 07/25/21 06:34 Levothyroxine 100 Mcg Vial IVP 130 mcg MoTh@0700 JULIETA Administration Lorazepam 1 mg 07/26/21 10:29 07/27/21 13:35 Lorazepam 2 Mg/Ml Vial IVP 1 mg Q6H PRN Administration Anxiety Midodrine 5 mg 07/28/21 14:00 07/28/21 14:53 Midodrine 2.5 Mg Tablet PO 5 mg TID JULIETA Administration Mineral Oil 1 applic 07/01/21 01:24 07/06/21 20:24 Min Oil/Dimethicon/Coconut Oil 92 Gm Tube TOP 1 ea PRN PRN Administration Skin Care Pantoprazole Sodium 40 mg 06/27/21 07:00 07/28/21 06:09 Pantoprazole 40 Mg Vial IVP 40 mg QDAC JULIETA Administration Phenol/Menthol 2 sprays 07/05/21 21:24 07/07/21 11:03 Phenol Throat [place] 177 Ml MM 2 sprays Q2HR PRN Administration Throat Pain Scopolamine HBr 1 patch 07/25/21 23:00 07/25/21 23:42 Scopolamine Patch TOP 1 patch Q3D JULIETA Administration Sodium Chloride 10 ml 06/27/21 01:00 07/28/21 10:35 Sodium Chloride Flush 0.9% 10 Ml Syringe IVP Not Given 0100,0900,1700 JULIETA Sodium Chloride 10 ml 06/26/21 20:54 07/28/21 14:52 Sodium Chloride Flush 0.9% 10 Ml Syringe IVP 10 ml PRN PRN Administration NEEDED PER PROVIDER ORDERS Sodium Chloride 20 ml 06/26/21 23:03 07/26/21 03:40 Sodium Chloride Flush 0.9% 10 Ml Syringe IVP 20 ml PRN PRN Administration After Blood Draw - Lab Result Fish Bone Diagrams: 07/29/21 04:58 07/29/21 04:58 - Additional Planning My Orders: My Active Orders 07/28/21 14:00 Midodrine [ProAmatine] 5 mg PO TID 07/28/21 15:01 Initiate NonViolent Restraint [RC] .PerProtocol Subjective - Subjective Patient Reports: Other (sedated on vent) Objective Vital Signs: Vital Signs - 24 hr 07/27/21 07/27/21 07/27/21 17:39 18:00 18:30 Temperature Heart Rate 77 Heart Rate [77] Heart Rate [ 72 76 Monitoring electrodes] Respiratory 12 15 Rate Blood Pressure 84/49 L 89/61 L [Left Brachial artery] O2 Saturation 94 07/27/21 07/27/21 07/27/21 19:00 20:00 21:00 Temperature 36.0 C L Heart Rate 78 Heart Rate [77] Heart Rate [ 77 77 77 Monitoring electrodes] Respiratory 18 15 15 Rate Blood Pressure 85/58 L 89/60 L 90/55 L [Left Brachial artery] O2 Saturation 96 96 96 07/27/21 07/27/21 07/28/21 22:00 23:00 00:00 Temperature Heart Rate 78 Heart Rate [77] Heart Rate [ 73 74 76 Monitoring electrodes] Respiratory 14 17 15 Rate Blood Pressure 90/61 82/55 L 91/55 L [Left Brachial artery] O2 Saturation 95 95 94 07/28/21 07/28/21 07/28/21 01:00 02:00 02:34 Temperature Heart Rate 78 Heart Rate [77] Heart Rate [ 75 77 Monitoring electrodes] Respiratory 18 18 Rate Blood Pressure 86/58 L 87/63 L [Left Brachial artery] O2 Saturation 96 96 07/28/21 07/28/21 07/28/21 03:00 04:00 04:35 Temperature Heart Rate 80 Heart Rate [77] Heart Rate [ 77 77 Monitoring electrodes] Respiratory 18 16 Rate Blood Pressure 87/62 L 85/64 L [Left Brachial artery] O2 Saturation 94 96 07/28/21 07/28/21 07/28/21 05:00 06:00 06:16 Temperature 36.2 C L Heart Rate Heart Rate [77] Heart Rate [ 89 85 Monitoring electrodes] Respiratory 19 17 Rate Blood Pressure 89/73 L 101/60 105/60 [Left Brachial artery] O2 Saturation 91 L 92 07/28/21 07/28/21 07/28/21 06:22 06:31 07:00 Temperature Heart Rate 80 Heart Rate [77] Heart Rate [ 86 Monitoring electrodes] Respiratory 16 Rate Blood Pressure 118/92 H 113/61 94/55 L [Left Brachial artery] O2 Saturation 96 07/28/21 07/28/21 07/28/21 08:00 08:30 08:55 Temperature Heart Rate 74 Heart Rate [77] Heart Rate [ 74 74 Monitoring electrodes] Respiratory 16 18 Rate Blood Pressure 76/63 L 83/58 L [Left Brachial artery] O2 Saturation 98 07/28/21 07/28/21 07/28/21 10:00 11:00 11:25 Temperature 36.5 C Heart Rate 76 Heart Rate [77] Heart Rate [ 78 75 Monitoring electrodes] Respiratory 19 14 Rate Blood Pressure 96/68 75/56 L [Left Brachial artery] O2 Saturation 100 96 07/28/21 07/28/21 07/28/21 12:00 13:00 13:25 Temperature 36.7 C 36.2 C L Heart Rate 77 Heart Rate [77] Heart Rate [ 78 66 Monitoring electrodes] Respiratory 18 32 H Rate Blood Pressure 74/64 L 74/63 L [Left Brachial artery] O2 Saturation 100 95 07/28/21 07/28/21 07/28/21 14:00 15:00 16:00 Temperature 36.1 C L Heart Rate 79 Heart Rate [77] 77 73 72 Heart Rate [ 77 73 72 Monitoring electrodes] Respiratory 15 17 17 Rate Blood Pressure 103/62 85/56 L 73/57 L [Left Brachial artery] O2 Saturation 97 95 98 Oxygen O2 Source Mechanical ventilator I&O (Last 24 Hrs): Intake and Output Totals x24h 07/26/21 07/27/21 07/28/21 23:59 23:59 23:59 Intake Total 2453.617 3003.129 1766.520 Output Total 1566 1440 745 Balance 093.494 7795.129 1021.520 General: Other (sedated) HEENT: Mucous membr. moist/pink, Other (mouth open, ET tube and ng in place) Neck: No JVD Neuro: Other (sedated) Cardiovascular: Regular rate Respiratory: Breath sounds nml (on the ventilator) Abdomen: Soft Extremities: Other (2+ edema of extremities) - Results Results: Laboratory Results WBC 11.1 x10^3/uL (4.8-10.8) H 07/28/21 04:46 RBC 3.22 10^6/uL (4.20-5.40) L 07/28/21 04:46 Hgb 9.7 g/dL (12.0-16.0) L 07/28/21 04:46 Hct 30.6 % (37.0-47.0) L 07/28/21 04:46 MCV 95.0 fL (81.0-99.0) 07/28/21 04:46 MCH 30.1 pg (27.0-31.0) 07/28/21 04:46 MCHC 31.7 g/dL (32.0-36.0) L 07/28/21 04:46 RDW 21.9 % (12.0-15.0) H 07/28/21 04:46 Plt Count 144 10^3/uL (130-450) 07/28/21 04:46 MPV 13.5 fL (7.9-10.8) H 07/28/21 04:46 Neut # (Auto) 10.1 10^3/uL (1.5-6.6) H 07/28/21 04:46 Lymph # (Auto) 0.5 10^3/uL (1.5-3.5) L 07/28/21 04:46 [place] # (Auto) 0.3 10^3/uL (0.0-1.0) 07/28/21 04:46 Eos # (Auto) 0.1 10^3/uL (0.0-0.7) 07/28/21 04:46 Baso # (Auto) 0.0 10^3/uL (0.0-0.1) 07/28/21 04:46 Absolute Nucleated RBC 0.00 x10^3/uL 07/28/21 04:46 Total Counted 100 07/25/21 04:33 Band Neuts % (Manual) 2 % (0-10) 07/25/21 04:33 Abnorm Lymph % (Manual) 0 % 07/25/21 04:33 Metamyelocytes % 1 % (-0) H 07/24/21 04:12 Myelocytes % 1 % (-0) H 07/24/21 04:12 Nucleated RBC % 0.0 /100WBC 07/28/21 04:46 Neutrophils # (Manual) 4.0 10^3/uL (1.5-6.6) 07/25/21 04:33 Lymphocytes # (Manual) 1.0 10^3/uL (1.5-3.5) L 07/25/21 04:33 Monocytes # (Manual) 0.7 10^3/uL (0.0-1.0) 07/25/21 04:33 Eosinophils # (Manual) 0.4 10^3/uL (0-0.7) 07/25/21 04:33 Basophils # (Manual) 0.0 10^3/uL (0-0.1) 07/25/21 04:33 Differential Comment MANUAL DIFFERENTIAL 07/25/21 04:33 Manual Slide Review Indicated 07/28/21 04:46 WBC Morphology NORMAL APPEARANCE (NORMAL) 07/28/21 04:46 Platelet Estimate NORMAL (130-450,000) (NORMAL) 07/28/21 04:46 Platelet Morphology NORMAL APPEARANCE (NORMAL) 07/28/21 04:46 RBC Morph Micro Appear 2+ ANISOCYTOSIS (NORMAL) 07/28/21 04:46 Bld Gas Analysis Time 1455 07/27/21 14:47 Sample Site RIGHT RADIAL 07/27/21 14:47 ABG pH 7.59 (7.35-7.45) H 07/27/21 14:47 ABG pCO2 26 mmHg (34-45) L 07/27/21 14:47 ABG pO2 86 mmHg (80-100) 07/27/21 14:47 ABG HCO3 23.8 mmol/L (22.0-26.0) 07/27/21 14:47 ABG Total CO2 24.5 MMOL/L (21.0-29.0) 07/27/21 14:47 ABG O2 Saturation 97 % (94-98) 07/27/21 14:47 ABG Base Excess 2.5 mmol/L (-2.0-3.0) 07/27/21 14:47 Ruperto Test POSITIVE 07/27/21 14:47 VBG pH 7.401 (7.31-7.41) 07/28/21 04:46 Ionized Calcium 1.02 mmol/L (1.15-1.33) L 07/28/21 04:46 Respiration Rate 12 b/min 07/27/21 14:47 O2 Delivery Device VENTILATOR 07/27/21 14:47 O2 Liters/Min 4.50 LPM 07/17/21 18:35 Vent Mode SIMV 07/27/21 14:47 FiO2 25.00 07/27/21 14:47 Tidal Volume 420 mL 07/27/21 14:47 PEEP 5 cmH2O 07/27/21 14:47 Pressure Support Vent 10 cmH2O 07/27/21 14:47 IPAP Not Reportable 06/27/21 05:43 Sodium 132 mmol/L (135-145) L 07/28/21 04:46 Potassium 3.9 mmol/L (3.5-5.0) 07/28/21 04:46 Chloride 98 mmol/L (101-111) L 07/28/21 04:46 Carbon Dioxide 25 mmol/L (21-32) 07/28/21 04:46 Anion Gap 9.0 (6-13) 07/28/21 04:46 BUN 14 mg/dL (6-20) 07/28/21 04:46 Creatinine 0.5 mg/dL (0.4-1.0) 07/28/21 04:46 Estimated GFR (MDRD) 119 (>89) 07/28/21 04:46 Glucose 156 mg/dL (70-100) H 07/28/21 04:46 POC Whole Bld Glucose 158 mg/dL (70 - 100) H 07/28/21 12:45 Lactic Acid 1.0 mmol/L (0.5-2.2) 07/21/21 12:54 Calcium 7.2 mg/dL (8.5-10.3) L 07/28/21 04:46 Ionized Calcium YES 07/04/21 04:43 Phosphorus 2.7 mg/dL (2.5-4.6) 07/28/21 04:46 Magnesium 1.7 mg/dL (1.7-2.8) 07/28/21 04:46 Iron 11 ug/dL (28-170) L 07/04/21 04:43 TIBC 115 ug/dL (250-450) L 07/04/21 04:43 % Saturation 10 % (20-50) L 07/04/21 04:43 Transferrin 82 mg/dL (192-382) L 07/04/21 04:43 Total Bilirubin 0.2 mg/dL (0.2-1.0) 07/19/21 05:50 Direct Bilirubin 0.2 mg/dL (0.1-0.5) 07/19/21 05:50 AST 96 IU/L (10-42) H 07/19/21 05:50 ALT 54 IU/L (10-60) 07/19/21 05:50 Alkaline Phosphatase 137 IU/L (42-121) H 07/19/21 05:50 Troponin I High Sens 121.5 ng/L (2.3-14.8) H* 07/18/21 06:51 C-Reactive Protein 7.1 mg/dL (0-1.0) H 07/04/21 04:43 B-Natriuretic Peptide 364 pg/mL (5-100) H 07/25/21 16:05 Total Protein 4.6 g/dL (6.7-8.2) L 07/19/21 05:50 Albumin 1.7 g/dL (3.2-5.5) L 07/19/21 05:50 Globulin 2.9 g/dL (2.1-4.2) 07/19/21 05:50 Albumin/Globulin Ratio 0.6 (1.0-2.2) L 07/17/21 07:50 Prealbumin 5 mg/dL (18-45) L 07/22/21 04:54 Triglycerides 69 mg/dL (-149) 07/19/21 05:50 Cholesterol 78 mg/dL (-199) 07/19/21 05:50 LDL Cholesterol, Calc 45 mg/dL (-129) 07/19/21 05:50 VLDL Cholesterol 14 mg/dL 07/19/21 05:50 HDL Cholesterol 19 mg/dL (60-) L 07/19/21 05:50 LDL/HDL Ratio 2.4 (<4.4) 07/19/21 05:50 Cholesterol/HDL Ratio 4.1 (<4.4) 07/19/21 05:50 Lipase 42 U/L (22-51) 06/26/21 14:26 TSH 3.87 uIU/mL (0.34-5.60) 07/25/21 16:05 Free T4 0.97 ng/dL (0.58-1.64) 07/02/21 04:42 Cortisol AM Sample 6.1 ug/dL 07/05/21 05:31 Urine Color YELLOW 06/26/21 22:51 Urine Clarity CLEAR (CLEAR) 06/26/21 22:51 Urine pH 5.0 PH (5.0-7.5) 06/26/21 22:51 Ur Specific [place] 1.015 (1.002-1.030) 06/26/21 22:51 Urine Protein NEGATIVE mg/dL (NEGATIVE) 06/26/21 22:51 Urine Glucose (UA) NEGATIVE mg/dL (NEGATIVE) 06/26/21 22:51 Urine Ketones NEGATIVE mg/dL (NEGATIVE) 06/26/21 22:51 Urine Occult Blood NEGATIVE (NEGATIVE) 06/26/21 22:51 Urine Nitrite NEGATIVE (NEGATIVE) 06/26/21 22:51 Urine Bilirubin NEGATIVE (NEGATIVE) 06/26/21 22:51 Urine Urobilinogen 0.2 (NORMAL) E.U./dL (NORMAL) 06/26/21 22:51 Ur Leukocyte Esterase TRACE (NEGATIVE) H 06/26/21 22:51 Urine RBC 0-5 /HPF (0-5) 06/26/21 22:51 Urine WBC 4-5 /HPF (0-5) 06/26/21 22:51 Ur Squamous Epith Cells FEW Squamous (<= Few) 06/26/21 22:51 Urine Bacteria Few /HPF (None Seen) 06/26/21 22:51 Urine Casts 3-5 Hyaline Casts /LPF 06/26/21 22:51 Ur Microscopic Review INDICATED 06/26/21 22:51 Urine Culture Comments INDICATED 06/26/21 22:51 Nasal Adenovirus (PCR) NOT DETECTED 07/14/21 16:00 Nasal B. parapertussis DNA (PCR) NOT DETECTED 07/14/21 16:00 Nasal Coronavir 229E PCR NOT DETECTED 07/14/21 16:00 Nasal Coronavir HKU1 PCR NOT DETECTED 07/14/21 16:00 Nasal Coronavir NL63 PCR NOT DETECTED 07/14/21 16:00 Nasal Coronavir OC43 PCR NOT DETECTED 07/14/21 16:00 Nasal Enterovir/Rhinovir PCR NOT DETECTED 07/14/21 16:00 Nasal Influenza B PCR NOT DETECTED 07/14/21 16:00 Nasal Influenza A PCR NOT DETECTED 07/14/21 16:00 Nasal Parainfluen 1 PCR NOT DETECTED 07/14/21 16:00 Nasal Parainfluen 2 PCR NOT DETECTED 07/14/21 16:00 Nasal Parainfluen 3 PCR NOT DETECTED 07/14/21 16:00 Nasal Parainfluen 4 PCR NOT DETECTED 07/14/21 16:00 Nasal RSV (PCR) NOT DETECTED 07/14/21 16:00 Nasal Screen MRSA (PCR) NEGATIVE (NEGATIVE) 06/26/21 21:55 Nasal B.pertussis DNA PCR NOT DETECTED 07/14/21 16:00 Nasal C.pneumoniae (PCR) NOT DETECTED 07/14/21 16:00 Mk Human Metapneumo PCR NOT DETECTED 07/14/21 16:00 Nasal M.pneumoniae (PCR) NOT DETECTED 07/14/21 16:00 Nasal SARS-CoV-2 (PCR) NOT DETECTED 07/14/21 16:00 Last Dose Date 07/19/2021 07/19/21 05:50 Last Dose Time 0100 07/19/21 05:50 Vancomycin Trough 16.8 ug/mL (10.0-20.0) 07/15/21 15:30 Digoxin 1.4 ng/mL 07/19/21 05:50 - Procedures Procedures: Procedures RESPIRATORY VENTILATION, LESS THAN 24 CONSECUTIVE HOURS (01/11/20) Sepsis Event Note (H) - Evaluation Current Stage of Sepsis: Septic shock Possible source of Sepsis: positive: GI tract/intra-abdominal - Sepsis Criteria Sepsis Criteria: WBC count greater than 10% bands, SBP drop more than 40mHg, MAP less than 65 mmHg, SBP less than 90 mmHg, Renal: urine output less than 0.5ml/kg/hr for 2 hours or creatinine gr, Metabolic: lactate > 2 mmol/L
[2021-07-28] MEDS: LORazepam 2 MG/ML VIAL IVP PRN (22:29)
[2021-07-28] MEDS: SCOPOLAMINE PATCH TOP SCH (22:30)
[2021-07-28] MEDS: GLYCOPYRROLATE 1 MG/5 ML VIAL SUBQ PRN (23:34)
[2021-07-29] MEDS: DEXMEDETOMIDINE 1,000 MCG in SODIUM CHLORIDE 0.9% 240 ML IV PRN ×2 (01:06→13:32)
[2021-07-29] MEDS: LORazepam 2 MG/ML VIAL IVP PRN (03:28)
[2021-07-29] MEDS: SODIUM CHLORIDE 0.9% 500 ML IV PRN (04:43)
[2021-07-29 05:16] LABS: BASOPHILS % (AUTO) 0.4 %; EOSINOPHILS # (AUTO) 0.1 10^3/uL (0.0-0.7); EOSINOPHILS % (AUTO) 1.2 %; HCT - HEMATOCRIT 25.4 % (37.0-47.0); LYMPHOCYTES # (AUTO) 0.7 10^3/uL (1.5-3.5); LYMPHOCYTES % (AUTO) 14.3 %; MEAN CORPUSCULAR HEMOGLOBIN 29.6 pg (27.0-31.0); MEAN CORPUSCULAR HGB CONC 31.5 g/dL (32.0-36.0); MEAN CORPUSCULAR VOLUME 94.1 fL (81.0-99.0); MONOCYTES # (AUTO) 0.2 10^3/uL (0.0-1.0); MONOCYTES % (AUTO) 4.4 %; NEUTROPHILS # (AUTO) 4.1 10^3/uL (1.5-6.6); NEUTROPHILS % (AUTO) 78.9 %; PLT - PLATELET COUNT 120 10^3/uL (130-450); RED CELL DISTRIBUTION WIDTH 21.8 % (12.0-15.0); WHITE BLOOD COUNT 5.2 x10^3/uL (4.8-10.8)
[2021-07-29 05:21] LABS: SLIDE REVIEW? Indicated
[2021-07-29 05:25] LABS: CALCIUM 7.3 mg/dL (8.5-10.3); CREATININE 0.5 mg/dL (0.4-1.0); POTASSIUM 4.7 mmol/L (3.5-5.0)
[2021-07-29] MEDS: MIDODRINE 2.5 MG TABLET PO SCH ×3 (05:34→23:28)
[2021-07-29] MEDS: FUROSEMIDE 40 MG/4 ML VIAL IVP SCH ×2 (05:34→13:57)
[2021-07-29 05:39] LABS: PLATELET ESTIMATE, MANUAL DECREASED (<130,000) (NORMAL); PLATELET MORPHOLOGY NORMAL APPEARANCE (NORMAL); WBC MORPHOLOGY (MULTIPLE) NORMAL APPEARANCE (NORMAL)
[2021-07-29 05:47] LABS: CALCIUM, IONIZED 1.07 mmol/L (1.15-1.33); VBG PH 7.381 (7.31-7.41)
[2021-07-29] MEDS ORDERED: CALCIUM GLUCONATE 1,000 MG in SODIUM CHLORIDE 0.9% 50 ML IV ONE (05:55)
[2021-07-29] MEDS: LEVOTHYROXINE 100 MCG VIAL IVP SCH (06:04)
[2021-07-29] MEDS: PANTOPRAZOLE 40 MG VIAL IVP SCH (06:04)
[2021-07-29] MEDS: ENOXAPARIN 40 MG/0.4 ML SYRINGE SUBQ SCH (08:28)
[2021-07-29] MEDS: CHLORHEXIDINE GLUCONATE 15 ML UDC PO SCH ×2 (08:28→21:40)
[2021-07-29] MEDS: SODIUM CHLORIDE FLUSH 0.9% 10 ML SYRINGE IVP SCH (08:29)
[2021-07-29] MEDS: MIDAZOLAM DRIP 50 MG/100 ML BAG IV SCH (08:33)
[2021-07-29] MEDS: ALBUMIN 25% 12.5 GM/50 ML VIAL IV SCH (11:59)
--- NOTE | 2021-07-29 12:25 | MISCELLANEOUS PROVIDER NOTE ---
Miscellaneous Provider Note - - Note: Patient has made some significant progress since I first saw her for a second opinion. She is off fentanyl and levophed. Her bowel function has returned and she is tolerating tube feeds. She is clearly more comfortable on SIMV (as opposed to AC) and is doing much of the work of breathing. Her wound is healed. This patient faces significant challenges: She is NOT ventilator dependent but has required intubation to handle her secretions. Performing a tracheostomy for/on her will NOT improve the secretion issue. Normally a tracheostomy (for skilled nursing intubation) is done to protect the vocal cords and teeth. My understanding is that her vocal utterations preoperatively were grunts and not intelligible (I may be wrong on this). Additionally her teeth are unlikely going to be used in a meaningful way as she will likely end up enterally fed via tube. She will not be able to have a swallow study done so she will undoubtedly require enteral feeding. This will require that a tube be placed and there are pros and cons to gastrostomy versus jejunostomy versus PEG/J. Her anasarca will likely require months to fully resolve. She is up 20 kg (44 pounds) of water weight since she was admitted. Adequate nutrition will help this but it will takes many weeks and even months for her albumin to meaningfully improve. Her mobility is unlikely going to improve as patient would need to be cooperative with OT and PT and this is not investment representative of something that the patient can do. To summarize her ongoing care would need to be done at a facility that can perform tracheostomy care, feeding tube care, provide close care regarding her secretions-pulmonary toilet, and deal with a schizophrenic-developmentally delayed bed bound patient (risk for skin breakdown). It is my understanding that Dr. Dobson will be reaching out to the family and I am willing to help in any capacity to improve this patient's situation. I again am appreciative of the opportunity to be involved in this patient's care.
[2021-07-29] MEDS: SODIUM CHLORIDE FLUSH 0.9% 10 ML SYRINGE IVP PRN ×2 (13:13→14:00)
--- NOTE | 2021-07-29 18:15 | PROVIDER PROGRESS NOTE ---
Assessment/Plan - Problem List (1) Acute respiratory failure requiring reintubation Assessment/Plan: Patient not restless on the vent, on iv Versed and iv Precedex . Consulted Dr. Tobi Adrian for trach and J tube for feeds. Dr Dobson has returned as Gen Surgeon on the case. Levophed off and to stay off. On new scheduled Midodrine 5 tid ordered for low BP, target MAP is 55. Dr Dobson to discuss with xavier regarding proceeding with Trach and/or PEG. (2) On mechanically assisted ventilation Assessment/Plan: No significant change in patient's clinical status This is her third intubation; she was unable to handle secretions when extubated Overall patient has been intubated for over 21 days. Continuing precedex and Versed (Versed added several days ago for head thrashing despite Precedex). Assist control was changed to SIMV, so that she starts to breathe more on her own. She is tolerating this. Dr Dobson to discuss with niesme regarding proceeding with Trach and/or PEG. (3) Anasarca Assessment/Plan: Continue with Lasix 60 mg IV twice daily. She is ordered to get daily iv Albumen at noon for a total of 4 days. (4) Chronic diastolic heart failure Assessment/Plan: Echo December 2019 had ejection fraction of 65 to 70%. Mild tricuspid regurgitation. RVSP was 43 mmHg. Echo January 2020 had ejection fraction of 55 to 60%. Echocardiogram done June 27, 2021 has an ejection fraction of 40 to 45% with systolic function globally impaired. Right ventricular pacing evident. (Pacer was placed in September 2020?) Mild to moderate right ventricular enlargement. Moderate to severe mitral regurgitation. Moderate LAE, severe ORI. Continue giving Albumen and Lasix 60 mg iv bid. (5) Perforated duodenal ulcer Assessment/Plan: Postop. Status post ex lap with repair of posterior duodenal ulcer that had perforated General surgery following. (6) Hypothyroidism Assessment/Plan: On Synthroid 130 mcg IV Mondays and . TSH on 07/25/21 was 3.87 (7) History of atrial fibrillation Assessment/Plan: Rate controlled. Not on any medication for rate control. (8) History of pulmonary embolism Assessment/Plan: On Lovenox 40 mg subcu daily and SCD's for DVT prophylaxis. (9) Schizophrenia Assessment/Plan: Seroquel discontinued when patient sedated on vent (10) Iron deficiency anemia Assessment/Plan: Hemoglobin stable. We will continue to monitor. (11) Aspiration pneumonia Assessment/Plan: Flagyl, Levaquin and Diflucan discontinued on 07/25/21. Her pulm resistance on the vent is good, per report of RT . (12) Septic shock Assessment/Plan: Resolved. Secondary to aspiration pneumonia. Flagyl, Levaquin and Diflucan discontinued on 07/25/21 (13) Ileus following gastrointestinal surgery Assessment/Plan: Resolved, she has had 2 days making stool - Current Meds Current Meds: Current Medications Generic Name Dose Route Start Last Admin Trade Name Freq PRN Reason Stop Dose Admin Acetaminophen 650 mg 07/17/21 11:05 07/21/21 10:00 Acetaminophen 325 Mg Tablet PO 650 mg Q6HR PRN Administration Pain or Fever > 38C (100.4F) Chlorhexidine Gluconate 15 ml 06/27/21 21:00 07/29/21 08:28 Chlorhexidine Gluconate 15 Ml Udc PO 15 ml BID JULIETA Administration Enoxaparin Sodium 40 mg 06/28/21 09:00 07/29/21 08:28 Enoxaparin 40 Mg/0.4 Ml Syringe SUBQ 40 mg DAILY JULIETA Administration Furosemide 40 mg 07/26/21 06:00 07/29/21 13:57 Furosemide 40 Mg/4 Ml Vial IVP 40 mg BIDDIURETIC JULIETA Administration Glycopyrrolate 0.2 mg 06/28/21 21:17 07/28/21 23:34 Glycopyrrolate 1 Mg/5 Ml Vial SUBQ 0.2 mg Q6H PRN Administration Excessive Secretions Sodium Chloride 500 mls @ 20 mls/hr 06/26/21 23:03 07/29/21 04:43 Normal Saline 0.9% IV 20 mls/hr Q24H PRN Administration TKO RATE Dexmedetomidine HCl 1,000 mcg/ 250 mls @ 25.85 mls/hr 07/22/21 13:30 07/29/21 14:00 Sodium Chloride IV 1.1 mcg/kg/hr .Q9H41M PRN 25.85 mls/hr Agitation Titration Protocol 1.1 MCG/KG/HR Midazolam HCl 50 mg in 100 mls @ 7.08 mls/hr 07/26/21 14:00 07/29/21 14:00 Versed Drip IV 0.03 mg/kg/hr .Q14H8M JULIETA 5.3 mls/hr Titration Protocol 0.04 MG/KG/HR Albumin Human 12.5 gm in 50 mls @ 50 mls/hr 07/27/21 12:00 07/29/21 12:59 Albuminar-25 IV 07/30/21 00:01 Infused 1200 JULIETA Infusion Levothyroxine Sodium 130 mcg 07/12/21 12:00 07/29/21 06:04 Levothyroxine 100 Mcg Vial IVP 130 mcg MoTh@0700 JULIETA Administration Lorazepam 1 mg 07/26/21 10:29 07/29/21 03:28 Lorazepam 2 Mg/Ml Vial IVP 1 mg Q6H PRN Administration Anxiety Midodrine 5 mg 07/28/21 14:00 07/29/21 13:57 Midodrine 2.5 Mg Tablet PO 5 mg TID JULIETA Administration Mineral Oil 1 applic 07/01/21 01:24 07/06/21 20:24 Min Oil/Dimethicon/Coconut Oil 92 Gm Tube TOP 1 ea PRN PRN Administration Skin Care Pantoprazole Sodium 40 mg 06/27/21 07:00 07/29/21 06:04 Pantoprazole 40 Mg Vial IVP 40 mg QDAC JULIETA Administration Phenol/Menthol 2 sprays 07/05/21 21:24 07/07/21 11:03 Phenol Throat [place] 177 Ml MM 2 sprays Q2HR PRN Administration Throat Pain Scopolamine HBr 1 patch 07/25/21 23:00 07/28/21 22:30 Scopolamine Patch TOP 1 patch Q3D JULIETA Administration Sodium Chloride 10 ml 06/27/21 01:00 07/29/21 08:29 Sodium Chloride Flush 0.9% 10 Ml Syringe IVP 10 ml 0100,0900,1700 JULIETA Administration Sodium Chloride 10 ml 06/26/21 20:54 07/29/21 14:00 Sodium Chloride Flush 0.9% 10 Ml Syringe IVP 10 ml PRN PRN Administration NEEDED PER PROVIDER ORDERS Sodium Chloride 20 ml 06/26/21 23:03 07/26/21 03:40 Sodium Chloride Flush 0.9% 10 Ml Syringe IVP 20 ml PRN PRN Administration After Blood Draw - Lab Result Fish Bone Diagrams: 07/29/21 04:58 07/30/21 07:34 - Additional Planning My Orders: My Active Orders 07/29/21 17:39 Initiate NonViolent Restraint [RC] .PerProtocol 07/30/21 PREALBUMIN [CHEM] Routine 07/30/21 05:00 CALCIUM, IONIZED ([facility]) [BG] DAILYLAB PHOSPHORUS [CHEM] DAILYLAB 07/30/21 09:00 MAGNESIUM [CHEM] DAILY 07/31/21 05:00 CALCIUM, IONIZED ([facility]) [BG] DAILYLAB PHOSPHORUS [CHEM] DAILYLAB 07/31/21 09:00 MAGNESIUM [CHEM] DAILY Subjective - Subjective Nursing Reports: Other (sedated on vent) Objective Vital Signs: Vital Signs - 24 hr 07/28/21 07/28/21 07/28/21 19:00 20:00 21:00 Temperature Heart Rate 90 Heart Rate [ 76 79 82 Monitoring electrodes] Respiratory 21 21 27 H Rate Blood Pressure 79/53 L 84/60 L 119/75 [Left Brachial artery] O2 Saturation 99 99 100 07/28/21 07/28/21 07/29/21 22:00 23:00 00:00 Temperature 36.3 C L Heart Rate Heart Rate [ 91 91 94 Monitoring electrodes] Respiratory 24 16 26 H Rate Blood Pressure 83/52 L 122/32 L 102/64 [Left Brachial artery] O2 Saturation 96 100 98 07/29/21 07/29/21 07/29/21 00:37 01:00 02:00 Temperature Heart Rate 90 Heart Rate [ 84 77 Monitoring electrodes] Respiratory 11 L 16 Rate Blood Pressure 83/69 L 89/78 L [Left Brachial artery] O2 Saturation 99 100 07/29/21 07/29/21 07/29/21 03:00 03:28 04:00 Temperature 36.3 C L Heart Rate 74 Heart Rate [ 73 73 Monitoring electrodes] Respiratory 12 13 Rate Blood Pressure 78/52 L 81/64 L [Left Brachial artery] O2 Saturation 100 100 07/29/21 07/29/21 07/29/21 05:00 06:00 06:17 Temperature Heart Rate 74 Heart Rate [ 73 74 Monitoring electrodes] Respiratory 18 15 Rate Blood Pressure 83/69 L 131/84 H [Left Brachial artery] O2 Saturation 100 100 07/29/21 07/29/21 07/29/21 07:00 07:15 08:00 Temperature 36.5 C Heart Rate 73 Heart Rate [ 73 73 Monitoring electrodes] Respiratory 13 14 Rate Blood Pressure 96/74 85/68 L [Left Brachial artery] O2 Saturation 100 100 07/29/21 07/29/21 07/29/21 09:00 10:00 10:54 Temperature Heart Rate 73 Heart Rate [ 73 74 Monitoring electrodes] Respiratory 16 13 Rate Blood Pressure 85/71 L 88/58 L [Left Brachial artery] O2 Saturation 100 100 07/29/21 07/29/21 07/29/21 11:00 12:00 13:00 Temperature 36.5 C Heart Rate Heart Rate [ 72 73 75 Monitoring electrodes] Respiratory 12 16 16 Rate Blood Pressure 90/74 90/77 99/79 [Left Brachial artery] O2 Saturation 100 100 100 07/29/21 07/29/21 07/29/21 14:00 15:00 15:13 Temperature Heart Rate 73 Heart Rate [ 71 73 Monitoring electrodes] Respiratory 14 13 Rate Blood Pressure 93/77 92/73 [Left Brachial artery] O2 Saturation 100 100 07/29/21 07/29/21 16:00 17:00 Temperature 35.9 C L Heart Rate Heart Rate [ 73 73 Monitoring electrodes] Respiratory 13 14 Rate Blood Pressure 90/71 122/79 [Left Brachial artery] O2 Saturation 100 100 Oxygen O2 Source Mechanical ventilator I&O (Last 24 Hrs): Intake and Output Totals x24h 07/27/21 07/28/21 07/29/21 23:59 23:59 23:59 Intake Total 3003.129 3703.819 2351.352 Output Total 0663 143 0812 Balance 1162.086 7124.819 896.352 General: Other (sedated on vent, ET tube and ng tube in place) HEENT: Mucous membr. moist/pink Neck: No JVD Neuro: Other (sedated) Cardiovascular: Regular rate Respiratory: No respiratory distress (on vent), Breath sounds nml (anteriorly) Abdomen: Soft Extremities: Other (4+ edema to level of skin of upper abdomen, both upper extrem to elbows) - Results Results: Laboratory Results WBC 5.2 x10^3/uL (4.8-10.8) 07/29/21 04:58 RBC 2.70 10^6/uL (4.20-5.40) L 07/29/21 04:58 Hgb 8.0 g/dL (12.0-16.0) L 07/29/21 04:58 Hct 25.4 % (37.0-47.0) L 07/29/21 04:58 MCV 94.1 fL (81.0-99.0) 07/29/21 04:58 MCH 29.6 pg (27.0-31.0) 07/29/21 04:58 MCHC 31.5 g/dL (32.0-36.0) L 07/29/21 04:58 RDW 21.8 % (12.0-15.0) H 07/29/21 04:58 Plt Count 120 10^3/uL (130-450) L 07/29/21 04:58 MPV 13.5 fL (7.9-10.8) H 07/28/21 04:46 Neut # (Auto) 4.1 10^3/uL (1.5-6.6) 07/29/21 04:58 Lymph # (Auto) 0.7 10^3/uL (1.5-3.5) L 07/29/21 04:58 [place] # (Auto) 0.2 10^3/uL (0.0-1.0) 07/29/21 04:58 Eos # (Auto) 0.1 10^3/uL (0.0-0.7) 07/29/21 04:58 Baso # (Auto) 0.0 10^3/uL (0.0-0.1) 07/29/21 04:58 Absolute Nucleated RBC 0.00 x10^3/uL 07/29/21 04:58 Total Counted 100 07/25/21 04:33 Band Neuts % (Manual) 2 % (0-10) 07/25/21 04:33 Abnorm Lymph % (Manual) 0 % 07/25/21 04:33 Metamyelocytes % 1 % (-0) H 07/24/21 04:12 Myelocytes % 1 % (-0) H 07/24/21 04:12 Nucleated RBC % 0.0 /100WBC 07/29/21 04:58 Neutrophils # (Manual) 4.0 10^3/uL (1.5-6.6) 07/25/21 04:33 Lymphocytes # (Manual) 1.0 10^3/uL (1.5-3.5) L 07/25/21 04:33 Monocytes # (Manual) 0.7 10^3/uL (0.0-1.0) 07/25/21 04:33 Eosinophils # (Manual) 0.4 10^3/uL (0-0.7) 07/25/21 04:33 Basophils # (Manual) 0.0 10^3/uL (0-0.1) 07/25/21 04:33 Differential Comment MANUAL DIFFERENTIAL 07/25/21 04:33 Manual Slide Review Indicated 07/29/21 04:58 WBC Morphology NORMAL APPEARANCE (NORMAL) 07/29/21 04:58 Platelet Estimate DECREASED (<130,000) (NORMAL) 07/29/21 04:58 Platelet Morphology NORMAL APPEARANCE (NORMAL) 07/29/21 04:58 RBC Morph Micro Appear 2+ ANISOCYTOSIS (NORMAL) 1+ HYPOCHROMASIA (NORMAL) 07/29/21 04:58 RBC Morph Micro Appear 2+ ANISOCYTOSIS (NORMAL) 1+ HYPOCHROMASIA (NORMAL) 07/29/21 04:58 Bld Gas Analysis Time 1455 07/27/21 14:47 Sample Site RIGHT RADIAL 07/27/21 14:47 ABG pH 7.59 (7.35-7.45) H 07/27/21 14:47 ABG pCO2 26 mmHg (34-45) L 07/27/21 14:47 ABG pO2 86 mmHg (80-100) 07/27/21 14:47 ABG HCO3 23.8 mmol/L (22.0-26.0) 07/27/21 14:47 ABG Total CO2 24.5 MMOL/L (21.0-29.0) 07/27/21 14:47 ABG O2 Saturation 97 % (94-98) 07/27/21 14:47 ABG Base Excess 2.5 mmol/L (-2.0-3.0) 07/27/21 14:47 Ruperto Test POSITIVE 07/27/21 14:47 VBG pH 7.381 (7.31-7.41) 07/29/21 04:58 Ionized Calcium 1.07 mmol/L (1.15-1.33) L 07/29/21 04:58 Respiration Rate 12 b/min 07/27/21 14:47 O2 Delivery Device VENTILATOR 07/27/21 14:47 O2 Liters/Min 4.50 LPM 07/17/21 18:35 Vent Mode SIMV 07/27/21 14:47 FiO2 25.00 07/27/21 14:47 Tidal Volume 420 mL 07/27/21 14:47 PEEP 5 cmH2O 07/27/21 14:47 Pressure Support Vent 10 cmH2O 07/27/21 14:47 IPAP Not Reportable 06/27/21 05:43 Sodium 135 mmol/L (135-145) 07/29/21 04:58 Potassium 4.7 mmol/L (3.5-5.0) 07/29/21 04:58 Chloride 101 mmol/L (101-111) 07/29/21 04:58 Carbon Dioxide 27 mmol/L (21-32) 07/29/21 04:58 Anion Gap 7.0 (6-13) 07/29/21 04:58 BUN 23 mg/dL (6-20) H 07/29/21 04:58 Creatinine 0.5 mg/dL (0.4-1.0) 07/29/21 04:58 Estimated GFR (MDRD) 119 (>89) 07/29/21 04:58 Glucose 122 mg/dL (70-100) H 07/29/21 04:58 POC Whole Bld Glucose 142 mg/dL (70 - 100) H 07/29/21 17:45 Lactic Acid 1.0 mmol/L (0.5-2.2) 07/21/21 12:54 Calcium 7.3 mg/dL (8.5-10.3) L 07/29/21 04:58 Ionized Calcium YES 07/04/21 04:43 Phosphorus 3.3 mg/dL (2.5-4.6) 07/29/21 04:58 Magnesium 1.8 mg/dL (1.7-2.8) 07/29/21 04:58 Iron 11 ug/dL (28-170) L 07/04/21 04:43 TIBC 115 ug/dL (250-450) L 07/04/21 04:43 % Saturation 10 % (20-50) L 07/04/21 04:43 Transferrin 82 mg/dL (192-382) L 07/04/21 04:43 Total Bilirubin 0.2 mg/dL (0.2-1.0) 07/19/21 05:50 Direct Bilirubin 0.2 mg/dL (0.1-0.5) 07/19/21 05:50 AST 96 IU/L (10-42) H 07/19/21 05:50 ALT 54 IU/L (10-60) 07/19/21 05:50 Alkaline Phosphatase 137 IU/L (42-121) H 07/19/21 05:50 Troponin I High Sens 121.5 ng/L (2.3-14.8) H* 07/18/21 06:51 C-Reactive Protein 7.1 mg/dL (0-1.0) H 07/04/21 04:43 B-Natriuretic Peptide 364 pg/mL (5-100) H 07/25/21 16:05 Total Protein 4.6 g/dL (6.7-8.2) L 07/19/21 05:50 Albumin 1.7 g/dL (3.2-5.5) L 07/19/21 05:50 Globulin 2.9 g/dL (2.1-4.2) 07/19/21 05:50 Albumin/Globulin Ratio 0.6 (1.0-2.2) L 07/17/21 07:50 Prealbumin 5 mg/dL (18-45) L 07/22/21 04:54 Triglycerides 69 mg/dL (-149) 07/19/21 05:50 Cholesterol 78 mg/dL (-199) 07/19/21 05:50 LDL Cholesterol, Calc 45 mg/dL (-129) 07/19/21 05:50 VLDL Cholesterol 14 mg/dL 07/19/21 05:50 HDL Cholesterol 19 mg/dL (60-) L 07/19/21 05:50 LDL/HDL Ratio 2.4 (<4.4) 07/19/21 05:50 Cholesterol/HDL Ratio 4.1 (<4.4) 07/19/21 05:50 Lipase 42 U/L (22-51) 06/26/21 14:26 TSH 3.87 uIU/mL (0.34-5.60) 07/25/21 16:05 Free T4 0.97 ng/dL (0.58-1.64) 07/02/21 04:42 Cortisol AM Sample 6.1 ug/dL 07/05/21 05:31 Urine Color YELLOW 06/26/21 22:51 Urine Clarity CLEAR (CLEAR) 06/26/21 22:51 Urine pH 5.0 PH (5.0-7.5) 06/26/21 22:51 Ur Specific [place] 1.015 (1.002-1.030) 06/26/21 22:51 Urine Protein NEGATIVE mg/dL (NEGATIVE) 06/26/21 22:51 Urine Glucose (UA) NEGATIVE mg/dL (NEGATIVE) 06/26/21 22:51 Urine Ketones NEGATIVE mg/dL (NEGATIVE) 06/26/21 22:51 Urine Occult Blood NEGATIVE (NEGATIVE) 06/26/21 22:51 Urine Nitrite NEGATIVE (NEGATIVE) 06/26/21 22:51 Urine Bilirubin NEGATIVE (NEGATIVE) 06/26/21 22:51 Urine Urobilinogen 0.2 (NORMAL) E.U./dL (NORMAL) 06/26/21 22:51 Ur Leukocyte Esterase TRACE (NEGATIVE) H 06/26/21 22:51 Urine RBC 0-5 /HPF (0-5) 06/26/21 22:51 Urine WBC 4-5 /HPF (0-5) 06/26/21 22:51 Ur Squamous Epith Cells FEW Squamous (<= Few) 06/26/21 22:51 Urine Bacteria Few /HPF (None Seen) 06/26/21 22:51 Urine Casts 3-5 Hyaline Casts /LPF 06/26/21 22:51 Ur Microscopic Review INDICATED 06/26/21 22:51 Urine Culture Comments INDICATED 06/26/21 22:51 Nasal Adenovirus (PCR) NOT DETECTED 07/14/21 16:00 Nasal B. parapertussis DNA (PCR) NOT DETECTED 07/14/21 16:00 Nasal Coronavir 229E PCR NOT DETECTED 07/14/21 16:00 Nasal Coronavir HKU1 PCR NOT DETECTED 07/14/21 16:00 Nasal Coronavir NL63 PCR NOT DETECTED 07/14/21 16:00 Nasal Coronavir OC43 PCR NOT DETECTED 07/14/21 16:00 Nasal Enterovir/Rhinovir PCR NOT DETECTED 07/14/21 16:00 Nasal Influenza B PCR NOT DETECTED 07/14/21 16:00 Nasal Influenza A PCR NOT DETECTED 07/14/21 16:00 Nasal Parainfluen 1 PCR NOT DETECTED 07/14/21 16:00 Nasal Parainfluen 2 PCR NOT DETECTED 07/14/21 16:00 Nasal Parainfluen 3 PCR NOT DETECTED 07/14/21 16:00 Nasal Parainfluen 4 PCR NOT DETECTED 07/14/21 16:00 Nasal RSV (PCR) NOT DETECTED 07/14/21 16:00 Nasal Screen MRSA (PCR) NEGATIVE (NEGATIVE) 06/26/21 21:55 Nasal B.pertussis DNA PCR NOT DETECTED 07/14/21 16:00 Nasal C.pneumoniae (PCR) NOT DETECTED 07/14/21 16:00 Mk Human Metapneumo PCR NOT DETECTED 07/14/21 16:00 Nasal M.pneumoniae (PCR) NOT DETECTED 07/14/21 16:00 Nasal SARS-CoV-2 (PCR) NOT DETECTED 07/14/21 16:00 Last Dose Date 07/19/2021 07/19/21 05:50 Last Dose Time 0100 07/19/21 05:50 Vancomycin Trough 16.8 ug/mL (10.0-20.0) 07/15/21 15:30 Digoxin 1.4 ng/mL 07/19/21 05:50 - Procedures Procedures: Procedures RESPIRATORY VENTILATION, LESS THAN 24 CONSECUTIVE HOURS (01/11/20) Sepsis Event Note (H) - Evaluation Current Stage of Sepsis: Septic shock Possible source of Sepsis: positive: GI tract/intra-abdominal - Sepsis Criteria Sepsis Criteria: WBC count greater than 10% bands, SBP drop more than 40mHg, MAP less than 65 mmHg, SBP less than 90 mmHg, Renal: urine output less than 0.5ml/kg/hr for 2 hours or creatinine gr, Metabolic: lactate > 2 mmol/L
[2021-07-30] MEDS: SODIUM CHLORIDE FLUSH 0.9% 10 ML SYRINGE IVP SCH ×4 (00:55→18:38)
[2021-07-30] MEDS: DEXMEDETOMIDINE 1,000 MCG in SODIUM CHLORIDE 0.9% 240 ML IV PRN ×2 (00:55→12:46)
[2021-07-30 05:12] LABS: CALCIUM, IONIZED 1.06 mmol/L (1.15-1.33); VBG PH 7.383 (7.31-7.41)
[2021-07-30] MEDS: MIDAZOLAM DRIP 50 MG/100 ML BAG IV SCH (05:20)
[2021-07-30] MEDS: MIDODRINE 2.5 MG TABLET PO SCH ×2 (06:44→14:43)
[2021-07-30] MEDS: FUROSEMIDE 40 MG/4 ML VIAL IVP SCH ×2 (06:44→14:45)
[2021-07-30] MEDS: PANTOPRAZOLE 40 MG VIAL IVP SCH (06:44)
[2021-07-30 07:54] LABS: MAGNESIUM 1.8 mg/dL (1.7-2.8); PHOSPHORUS 3.6 mg/dL (2.5-4.6); POTASSIUM 4.4 mmol/L (3.5-5.0)
--- NOTE | 2021-07-30 08:53 | PROVIDER PROGRESS NOTE ---
Subjective - General Admit Date: 06/26/21 Procedure Date: 06/26/21 Post Op Days: 34 Procedure Performed: Exploratory laparotomy with repair of posterior duodenal ulcer - Review of Systems Wound/Incisions: positive: Other (Healed.) Drain Type: 19 Chinese Tanner Drain Output Description: Serosanguineous - Other Other Information/Narrative: This is another late entry from 07/29 due to Internet issues and inability to d ocumeI agree with all that Dr. Ventura is has expressed in his note. I had a couple of conversations with Larissa, the patient's niece per telephone yesterday. She has spoken with her mom aunt Katie and with her own mother. I explained the pathophysiology of malnutrition and anasarca. I explained that the patient is not ventilator dependent because of inability to breathe and that she is not truly ventilator dependent. She has a terrible problem with copious secretions. I can certainly place a tracheostomy, but this will not fix the secretion problem. Again we talked about anasarca and I expressed to her that this would be a 3 to 6-month recovery minimum. She had anasarca when she arrived and was chronically malnourished prior to the operation. This is documented in her admission H&P. She has difficulty communicating and very likely did not feel well for some time before her intra-abdominal catastrophe. Were she did get a tracheostomy, she would need to be suctioned very frequently and her risk of pneumonia would be quite significant.She will very likely need tube feeds for an extended period of time prior to being able to take enough orally to sustain herself. Larissa called me late in the day after discussion with her family and reported that they had decided they would like to pursue comfort measures.She is going to try to come to the hospital today at 10:00 to meet with the medicine staff and discuss the next step. Objective - Patient Data Vital Signs: Vital Signs x48h Temp Pulse Pulse Resp BP Pulse Ox 07/30/21 08:00 36.0 C L 73 11 L 90/62 100 07/30/21 07:49 71 07/30/21 07:00 74 19 95/78 100 07/30/21 06:00 72 11 L 92/70 100 07/30/21 05:30 73 07/30/21 05:00 36.2 C L 74 28 H 86/71 L 100 07/30/21 04:00 74 11 L 85/71 L 100 07/30/21 03:25 74 07/30/21 03:00 75 11 L 87/73 L 94 07/30/21 02:00 73 13 83/69 L 99 07/30/21 01:05 75 07/30/21 01:00 75 8 L 88/76 L 100 Weight: Weight 07/28/21 07/29/21 07/30/21 23:59 23:59 23:59 Weight (kg) 90.7 kg 94 kg 95 kg Intake & Output: Intake and Output Totals x24h 07/28/21 07/29/21 07/30/21 23:59 23:59 23:59 Intake Total 3703.819 2616.751 1429.864 Output Total 948 1805 895 Balance 2755.819 811.751 534.864 - Lab Results Lab Results: 07/29/21 04:58 07/30/21 07:34 Other Lab Results: Lab Results x24hrs 07/30/21 07/30/21 07/30/21 Range/Units 07:34 05:40 04:49 VBG pH (7.31-7.41) Ionized Calcium (1.15-1.33) mmol/L Potassium 4.4 (3.5-5.0) mmol/L POC Whole Bld Glucose 116 H (70 - 100) mg/dL Phosphorus 3.6 (2.5-4.6) mg/dL Magnesium 1.8 (1.7-2.8) mg/dL Prealbumin 7 L (18-45) mg/dL 07/30/21 07/30/21 07/29/21 Range/Units 04:49 04:49 23:50 VBG pH 7.383 (7.31-7.41) Ionized Calcium 1.06 L (1.15-1.33) mmol/L Potassium (3.5-5.0) mmol/L POC Whole Bld Glucose 136 H (70 - 100) mg/dL Phosphorus 3.6 (2.5-4.6) mg/dL Magnesium (1.7-2.8) mg/dL Prealbumin (18-45) mg/dL 07/29/21 07/29/21 07/29/21 Range/Units 17:45 12:51 04:58 VBG pH (7.31-7.41) Ionized Calcium (1.15-1.33) mmol/L Potassium (3.5-5.0) mmol/L POC Whole Bld Glucose 142 H 126 H (70 - 100) mg/dL Phosphorus (2.5-4.6) mg/dL Magnesium 1.8 (1.7-2.8) mg/dL Prealbumin (18-45) mg/dL - Current Medications Current Medications: Current Medications Generic Name Dose Route Start Last Admin Trade Name Freq PRN Reason Stop Dose Admin Acetaminophen 650 mg 07/17/21 11:05 07/21/21 10:00 Acetaminophen 325 Mg Tablet PO 650 mg Q6HR PRN Administration Pain or Fever > 38C (100.4F) Chlorhexidine Gluconate 15 ml 06/27/21 21:00 07/29/21 21:40 Chlorhexidine Gluconate 15 Ml Udc PO 15 ml BID JULIETA Administration Enoxaparin Sodium 40 mg 06/28/21 09:00 07/29/21 08:28 Enoxaparin 40 Mg/0.4 Ml Syringe SUBQ 40 mg DAILY JULIETA Administration Furosemide 40 mg 07/26/21 06:00 07/30/21 06:44 Furosemide 40 Mg/4 Ml Vial IVP 40 mg BIDDIURETIC JULIETA Administration Glycopyrrolate 0.2 mg 06/28/21 21:17 07/28/21 23:34 Glycopyrrolate 1 Mg/5 Ml Vial SUBQ 0.2 mg Q6H PRN Administration Excessive Secretions Sodium Chloride 500 mls @ 20 mls/hr 06/26/21 23:03 07/29/21 04:43 Normal Saline 0.9% IV 20 mls/hr Q24H PRN Administration TKO RATE Dexmedetomidine HCl 1,000 mcg/ 250 mls @ 25.85 mls/hr 07/22/21 13:30 07/30/21 01:42 Sodium Chloride IV 1.02 mcg/kg/hr .Q9H41M PRN 23.9 mls/hr Agitation Titration Protocol 1.1 MCG/KG/HR Midazolam HCl 50 mg in 100 mls @ 7.08 mls/hr 07/26/21 14:00 07/30/21 05:20 Versed Drip IV 0.03 mg/kg/hr .Q14H8M JULIETA 5.3 mls/hr Administration Protocol 0.04 MG/KG/HR Levothyroxine Sodium 130 mcg 07/12/21 12:00 07/29/21 06:04 Levothyroxine 100 Mcg Vial IVP 130 mcg MoTh@0700 JULIETA Administration Lorazepam 1 mg 07/26/21 10:29 07/29/21 03:28 Lorazepam 2 Mg/Ml Vial IVP 1 mg Q6H PRN Administration Anxiety Midodrine 5 mg 07/28/21 14:00 07/30/21 06:44 Midodrine 2.5 Mg Tablet PO 5 mg TID JULIETA Administration Mineral Oil 1 applic 07/01/21 01:24 07/06/21 20:24 Min Oil/Dimethicon/Coconut Oil 92 Gm Tube TOP 1 ea PRN PRN Administration Skin Care Pantoprazole Sodium 40 mg 06/27/21 07:00 07/30/21 06:44 Pantoprazole 40 Mg Vial IVP 40 mg QDAC JULIETA Administration Phenol/Menthol 2 sprays 07/05/21 21:24 07/07/21 11:03 Phenol Throat [place] 177 Ml MM 2 sprays Q2HR PRN Administration Throat Pain Scopolamine HBr 1 patch 07/25/21 23:00 07/28/21 22:30 Scopolamine Patch TOP 1 patch Q3D JULIETA Administration Sodium Chloride 10 ml 06/27/21 01:00 07/30/21 05:20 Sodium Chloride Flush 0.9% 10 Ml Syringe IVP Not Given 0100,0900,1700 JULIETA Sodium Chloride 10 ml 06/26/21 20:54 07/29/21 14:00 Sodium Chloride Flush 0.9% 10 Ml Syringe IVP 10 ml PRN PRN Administration NEEDED PER PROVIDER ORDERS Sodium Chloride 20 ml 06/26/21 23:03 07/26/21 03:40 Sodium Chloride Flush 0.9% 10 Ml Syringe IVP 20 ml PRN PRN Administration After Blood Draw
[2021-07-30] MEDS: ENOXAPARIN 40 MG/0.4 ML SYRINGE SUBQ SCH (09:44)
[2021-07-30] MEDS: CHLORHEXIDINE GLUCONATE 15 ML UDC PO SCH (09:44)
[2021-07-30] MEDS ORDERED: CALCIUM GLUCONATE 1,000 MG in SODIUM CHLORIDE 0.9% 50 ML IV ONE (09:45)
[2021-07-30] MEDS ORDERED: MAGNESIUM SULFATE 2 GRAM 2 GM/50 ML BAG IV ONE (10:08)
[2021-07-30] MEDS: SODIUM CHLORIDE 0.9% 500 ML IV PRN (10:35)
[2021-07-30] MEDS: SODIUM CHLORIDE FLUSH 0.9% 10 ML SYRINGE IVP PRN ×3 (11:06→15:58)
--- NOTE | 2021-07-30 12:43 | ADVANCE CARE PLANNING NOTE ---
Advance Care Planning - Planning Encounter Date: 07/30/21 Time: 12:45 Purpose: To learn family's wishes regarding her care, including surgeical placement of tracheostomy, PEG tube. Parties in Attendance: I spoke to both nieces, Larissa and Jada, outside of the patient's room. Then I spoke to the patient's sister Katie (her DPOA, in [place]) by phone. Decisional Capacity of the Patient: She is sedated and on the ventilator, not communicative. - Encounter Subjective/Patient's Story: She has developmental delay and schizophrenia, was living is assisted living or NH, developed a perforated bowel and had emergency bowel surgery over a month ago here. She had subsequent complications of PNA, was extubated twice and needed to be re-intubated (3 times). She needed iv pressors for BP supprt for weeks, developed anasarca and had a post-op ileus for weeks. There was discussion about transfering her for a trache and J tube for feeding then placing those by surgery here. Objective/Medical Story: She has developmental delay and schizophrenia, was living is assisted living or NH, developed a perforated bowel and had emergency bowel surgery over a month ago here. She had subsequent complications of PNA, was extubated twice and needed to be re-intubated (3 times). She needed iv pressors for BP supprt for weeks, developed anasarca and had a post-op ileus for weeks. There was discussion about transfering her for a trache and J tube for feeding then placing those by surgery here. Last evening the family discussed no surgery and comfort care with the surgeon and what dying with comfort would be like. Goals of Care: I spoke to her DPOA about what the DPOA wants and family agrees to and that is to make her comfortable, extubate her and remove ng tube and allow natural . Plan: No tracheostomy or feeding tube is desired nor planned. Allow the patient's sister to come to bedside today (to say karinae). If no visit or after her sister's visit, start Comfort Care packet, including giving morphine, robinul and extubate the patient. Reove ng tube. Family may be present in the room. Allow natural , with comfort as the goal. Code Status: Do Not Attempt Resuscitation Time spent on advance care plannin min
[2021-07-30] MEDS ORDERED: HALOPERIDOL 5 MG/ML VIAL IVP PRN (15:41)
[2021-07-30] MEDS: MORPHINE 2 MG/ML CARPUJECT IVP PRN ×3 (15:53→18:59)
[2021-07-30 17:16] VITALS: BP 113/76
[2021-07-30] MEDS ORDERED: CHLORHEXIDINE GLUCONATE 15 ML UDC PO PRN (17:36)
--- NOTE | 2021-07-30 20:40 | PROVIDER PROGRESS NOTE ---
Assessment/Plan - Problem List (1) Acute respiratory failure requiring reintubation Assessment/Plan: Patient not restless on the vent, is on iv Versed and iv Precedex . The family has decided against any intervention/surgery and want to transition to comfort and withdrawing the vent and all treatments and extubating her. (2) On mechanically assisted ventilation Assessment/Plan: This is her third intubation; she was unable to handle secretions when extubated. Overall patient has been intubated for over 21 days. The family has decided against any intervention/surgery and want to transition to comfort and withdrawing the vent and all treatments and extubating her. We will doo this by treating with iv Morphine and also giving meds for secretions and for restlessness. (3) Anasarca Assessment/Plan: We were treating with Albumen and iv Lasix and she has had minimal (-) fluid balance. She had come in malnourished, low protein. The management of anasarca was explaine to the family by Dr Dobson and myself today at length, and explained that it is not connected to the issues with her airway, respiratory status or secretions. (4) Chronic diastolic heart failure Assessment/Plan: Echo December 2019 had ejection fraction of 65 to 70%. Mild tricuspid regurgitation. RVSP was 43 mmHg. Echo January 2020 had ejection fraction of 55 to 60%. Echocardiogram done June 27, 2021 has an ejection fraction of 40 to 45% with systolic function globally impaired. Right ventricular pacing evident. (Pacer was placed in September 2020?) Mild to moderate right ventricular enlargement. Moderate to severe mitral regurgitation. Moderate LAE, severe ORI. (5) Perforated duodenal ulcer Assessment/Plan: Postop. Status post ex lap with repair of posterior duodenal ulcer that had perforated General surgery following. (6) Hypothyroidism Assessment/Plan: On Synthroid 130 mcg IV Mondays and . TSH on 07/25/21 was 3.87 (7) History of atrial fibrillation Assessment/Plan: Rate controlled. Not on any medication for rate control. (8) History of pulmonary embolism Assessment/Plan: On Lovenox 40 mg subcu daily and SCD's for DVT prophylaxis. (9) Schizophrenia Assessment/Plan: Seroquel discontinued when patient sedated on vent (10) Iron deficiency anemia Assessment/Plan: Hemoglobin stable. We will stop daily lab checks (11) Aspiration pneumonia Assessment/Plan: Flagyl, Levaquin and Diflucan discontinued on 07/25/21. Her pulm resistance on the vent is good, per report of RT . (12) Septic shock Assessment/Plan: Resolved. (13) Ileus following gastrointestinal surgery Assessment/Plan: Resolved - Current Meds Current Meds: Current Medications Generic Name Dose Route Start Last Admin Trade Name Freq PRN Reason Stop Dose Admin Glycopyrrolate 0.2 mg 06/28/21 21:17 07/28/21 23:34 Glycopyrrolate 1 Mg/5 Ml Vial SUBQ 0.2 mg Q6H PRN Administration Excessive Secretions Midazolam HCl 50 mg in 100 mls @ 7.08 mls/hr 07/26/21 14:00 07/30/21 20:00 Versed Drip IV 07/30/21 23:00 0.02 mg/kg/hr .[id number] JULIETA 3.54 mls/hr Titration Protocol 0.04 MG/KG/HR Lorazepam 1 mg 07/26/21 10:29 07/29/21 03:28 Lorazepam 2 Mg/Ml Vial IVP 1 mg Q6H PRN Administration Anxiety Mineral Oil 1 applic 07/01/21 01:24 07/06/21 20:24 Min Oil/Dimethicon/Coconut Oil 92 Gm Tube TOP 1 ea PRN PRN Administration Skin Care Morphine Sulfate 2 mg 07/30/21 15:41 07/30/21 18:59 Morphine 2 Mg/Ml Carpuject IVP 2 mg Q2HR PRN Administration Pain or Shortness of air Phenol/Menthol 2 sprays 07/05/21 21:24 07/07/21 11:03 Phenol Throat [place] 177 Ml MM 2 sprays Q2HR PRN Administration Throat Pain Scopolamine HBr 1 patch 07/25/21 23:00 07/28/21 22:30 Scopolamine Patch TOP 1 patch Q3D JULIETA Administration Sodium Chloride 10 ml 06/27/21 01:00 07/30/21 18:38 Sodium Chloride Flush 0.9% 10 Ml Syringe IVP Not Given 0100,0900,1700 JULIETA Sodium Chloride 10 ml 06/26/21 20:54 07/30/21 15:03 Sodium Chloride Flush 0.9% 10 Ml Syringe IVP 20 ml PRN PRN Administration NEEDED PER PROVIDER ORDERS - Lab Result Fish Bone Diagrams: 07/29/21 04:58 07/30/21 07:34 - Additional Planning My Orders: My Active Orders 07/30/21 15:41 Comfort Care [RC] QSHIFT Cooling Unit [RC] PRN Oral Care - Nursing [RC] BID Turn and Reposition [RC] PRN Warming Unit [RC] PRN Haloperidol Inj [Haldol Inj] 0.5 mg IVP Q2H PRN Morphine Inj (Carpuject) [Morphine (Carpuject)] 2 mg IVP Q2HR PRN 07/30/21 17:36 Chlorhexidine [Peridex] 15 ml PO BID PRN 07/30/21 18:49 Miscellaenous Nursing Order [RC] ONCE Subjective - Subjective Patient Reports: Other (Unchanged) Nursing Reports: Other (sedated and intubated on vent, ng tube) Objective Vital Signs: Vital Signs - 24 hr 07/29/21 07/29/21 07/29/21 21:00 22:00 22:30 Temperature Heart Rate 71 Heart Rate [ 71 73 Monitoring electrodes] Respiratory 22 12 Rate Blood Pressure 90/72 89/74 L [Left Brachial artery] Blood Pressure [Left Radial artery] O2 Saturation 100 100 07/29/21 07/30/21 07/30/21 23:00 00:00 01:00 Temperature 35.8 C L Heart Rate Heart Rate [ 73 72 75 Monitoring electrodes] Respiratory 12 10 L 8 L Rate Blood Pressure 88/72 L 87/68 L 88/76 L [Left Brachial artery] Blood Pressure [Left Radial artery] O2 Saturation 95 100 100 07/30/21 07/30/21 07/30/21 01:05 02:00 03:00 Temperature Heart Rate 75 Heart Rate [ 73 75 Monitoring electrodes] Respiratory 13 11 L Rate Blood Pressure 83/69 L 87/73 L [Left Brachial artery] Blood Pressure [Left Radial artery] O2 Saturation 99 94 07/30/21 07/30/21 07/30/21 03:25 04:00 05:00 Temperature 36.2 C L Heart Rate 74 Heart Rate [ 74 74 Monitoring electrodes] Respiratory 11 L 28 H Rate Blood Pressure 85/71 L 86/71 L [Left Brachial artery] Blood Pressure [Left Radial artery] O2 Saturation 100 100 07/30/21 07/30/21 07/30/21 05:30 06:00 07:00 Temperature Heart Rate 73 Heart Rate [ 72 74 Monitoring electrodes] Respiratory 11 L 19 Rate Blood Pressure 92/70 95/78 [Left Brachial artery] Blood Pressure [Left Radial artery] O2 Saturation 100 100 07/30/21 07/30/21 07/30/21 07:49 08:00 09:00 Temperature 36.0 C L Heart Rate 71 Heart Rate [ 73 74 Monitoring electrodes] Respiratory 11 L 15 Rate Blood Pressure 90/62 84/73 L [Left Brachial artery] Blood Pressure [Left Radial artery] O2 Saturation 100 100 07/30/21 07/30/21 07/30/21 10:00 11:00 11:02 Temperature Heart Rate 72 Heart Rate [ 74 84 Monitoring electrodes] Respiratory 12 25 H Rate Blood Pressure 82/60 L 91/77 [Left Brachial artery] Blood Pressure [Left Radial artery] O2 Saturation 100 100 07/30/21 07/30/21 07/30/21 12:00 13:00 14:00 Temperature 36.4 C L Heart Rate Heart Rate [ 73 73 72 Monitoring electrodes] Respiratory 18 15 14 Rate Blood Pressure [Left Brachial artery] Blood Pressure 91/71 75/57 L 81/54 L [Left Radial artery] O2 Saturation 100 100 100 07/30/21 07/30/21 07/30/21 15:00 16:00 17:00 Temperature Heart Rate Heart Rate [ 74 79 92 Monitoring electrodes] Respiratory 11 L 29 H 22 Rate Blood Pressure [Left Brachial artery] Blood Pressure 71/52 L 113/51 L 113/76 [Left Radial artery] O2 Saturation 100 94 84 L Oxygen O2 Source Room air I&O (Last 24 Hrs): Intake and Output Totals x24h 07/28/21 07/29/21 07/30/21 23:59 23:59 23:59 Intake Total 3703.819 2616.751 3063.584 Output Total 948 1805 2455 Balance 2755.819 811.751 608.584 General: Other (sedated) HEENT: Mucous membr. moist/pink Neck: No JVD Neuro: Other (sedated) Cardiovascular: Regular rate Respiratory: No respiratory distress (on the vent) Abdomen: Soft Extremities: Other (4+ edema/anasarca) - Results Results: Laboratory Results WBC 5.2 x10^3/uL (4.8-10.8) 07/29/21 04:58 RBC 2.70 10^6/uL (4.20-5.40) L 07/29/21 04:58 Hgb 8.0 g/dL (12.0-16.0) L 07/29/21 04:58 Hct 25.4 % (37.0-47.0) L 07/29/21 04:58 MCV 94.1 fL (81.0-99.0) 07/29/21 04:58 MCH 29.6 pg (27.0-31.0) 07/29/21 04:58 MCHC 31.5 g/dL (32.0-36.0) L 07/29/21 04:58 RDW 21.8 % (12.0-15.0) H 07/29/21 04:58 Plt Count 120 10^3/uL (130-450) L 07/29/21 04:58 MPV 13.5 fL (7.9-10.8) H 07/28/21 04:46 Neut # (Auto) 4.1 10^3/uL (1.5-6.6) 07/29/21 04:58 Lymph # (Auto) 0.7 10^3/uL (1.5-3.5) L 07/29/21 04:58 [place]yer # (Auto) 0.2 10^3/uL (0.0-1.0) 07/29/21 04:58 Eos # (Auto) 0.1 10^3/uL (0.0-0.7) 07/29/21 04:58 Baso # (Auto) 0.0 10^3/uL (0.0-0.1) 07/29/21 04:58 Absolute Nucleated RBC 0.00 x10^3/uL 07/29/21 04:58 Total Counted 100 07/25/21 04:33 Band Neuts % (Manual) 2 % (0-10) 07/25/21 04:33 Abnorm Lymph % (Manual) 0 % 07/25/21 04:33 Metamyelocytes % 1 % (-0) H 07/24/21 04:12 Myelocytes % 1 % (-0) H 07/24/21 04:12 Nucleated RBC % 0.0 /100WBC 07/29/21 04:58 Neutrophils # (Manual) 4.0 10^3/uL (1.5-6.6) 07/25/21 04:33 Lymphocytes # (Manual) 1.0 10^3/uL (1.5-3.5) L 07/25/21 04:33 Monocytes # (Manual) 0.7 10^3/uL (0.0-1.0) 07/25/21 04:33 Eosinophils # (Manual) 0.4 10^3/uL (0-0.7) 07/25/21 04:33 Basophils # (Manual) 0.0 10^3/uL (0-0.1) 07/25/21 04:33 Differential Comment MANUAL DIFFERENTIAL 07/25/21 04:33 Manual Slide Review Indicated 07/29/21 04:58 WBC Morphology NORMAL APPEARANCE (NORMAL) 07/29/21 04:58 Platelet Estimate DECREASED (<130,000) (NORMAL) 07/29/21 04:58 Platelet Morphology NORMAL APPEARANCE (NORMAL) 07/29/21 04:58 RBC Morph Micro Appear 2+ ANISOCYTOSIS (NORMAL) 1+ HYPOCHROMASIA (NORMAL) 07/29/21 04:58 RBC Morph Micro Appear 2+ ANISOCYTOSIS (NORMAL) 1+ HYPOCHROMASIA (NORMAL) 07/29/21 04:58 Bld Gas Analysis Time 1455 07/27/21 14:47 Sample Site RIGHT RADIAL 07/27/21 14:47 ABG pH 7.59 (7.35-7.45) H 07/27/21 14:47 ABG pCO2 26 mmHg (34-45) L 07/27/21 14:47 ABG pO2 86 mmHg (80-100) 07/27/21 14:47 ABG HCO3 23.8 mmol/L (22.0-26.0) 07/27/21 14:47 ABG Total CO2 24.5 MMOL/L (21.0-29.0) 07/27/21 14:47 ABG O2 Saturation 97 % (94-98) 07/27/21 14:47 ABG Base Excess 2.5 mmol/L (-2.0-3.0) 07/27/21 14:47 Ruperto Test POSITIVE 07/27/21 14:47 VBG pH 7.383 (7.31-7.41) 07/30/21 04:49 Ionized Calcium 1.06 mmol/L (1.15-1.33) L 07/30/21 04:49 Respiration Rate 12 b/min 07/27/21 14:47 O2 Delivery Device VENTILATOR 07/27/21 14:47 O2 Liters/Min 4.50 LPM 07/17/21 18:35 Vent Mode SIMV 07/27/21 14:47 FiO2 25.00 07/27/21 14:47 Tidal Volume 420 mL 07/27/21 14:47 PEEP 5 cmH2O 07/27/21 14:47 Pressure Support Vent 10 cmH2O 07/27/21 14:47 IPAP Not Reportable 06/27/21 05:43 Sodium 135 mmol/L (135-145) 07/29/21 04:58 Potassium 4.4 mmol/L (3.5-5.0) 07/30/21 07:34 Chloride 101 mmol/L (101-111) 07/29/21 04:58 Carbon Dioxide 27 mmol/L (21-32) 07/29/21 04:58 Anion Gap 7.0 (6-13) 07/29/21 04:58 BUN 23 mg/dL (6-20) H 07/29/21 04:58 Creatinine 0.5 mg/dL (0.4-1.0) 07/29/21 04:58 Estimated GFR (MDRD) 119 (>89) 07/29/21 04:58 Glucose 122 mg/dL (70-100) H 07/29/21 04:58 POC Whole Bld Glucose 136 mg/dL (70 - 100) H 07/30/21 11:32 Lactic Acid 1.0 mmol/L (0.5-2.2) 07/21/21 12:54 Calcium 7.3 mg/dL (8.5-10.3) L 07/29/21 04:58 Ionized Calcium YES 07/04/21 04:43 Phosphorus 3.6 mg/dL (2.5-4.6) 07/30/21 07:34 Magnesium 1.8 mg/dL (1.7-2.8) 07/30/21 07:34 Iron 11 ug/dL (28-170) L 07/04/21 04:43 TIBC 115 ug/dL (250-450) L 07/04/21 04:43 % Saturation 10 % (20-50) L 07/04/21 04:43 Transferrin 82 mg/dL (192-382) L 07/04/21 04:43 Total Bilirubin 0.2 mg/dL (0.2-1.0) 07/19/21 05:50 Direct Bilirubin 0.2 mg/dL (0.1-0.5) 07/19/21 05:50 AST 96 IU/L (10-42) H 07/19/21 05:50 ALT 54 IU/L (10-60) 07/19/21 05:50 Alkaline Phosphatase 137 IU/L (42-121) H 07/19/21 05:50 Troponin I High Sens 121.5 ng/L (2.3-14.8) H* 07/18/21 06:51 C-Reactive Protein 7.1 mg/dL (0-1.0) H 07/04/21 04:43 B-Natriuretic Peptide 364 pg/mL (5-100) H 07/25/21 16:05 Total Protein 4.6 g/dL (6.7-8.2) L 07/19/21 05:50 Albumin 1.7 g/dL (3.2-5.5) L 07/19/21 05:50 Globulin 2.9 g/dL (2.1-4.2) 07/19/21 05:50 Albumin/Globulin Ratio 0.6 (1.0-2.2) L 07/17/21 07:50 Prealbumin 7 mg/dL (18-45) L 07/30/21 04:49 Triglycerides 69 mg/dL (-149) 07/19/21 05:50 Cholesterol 78 mg/dL (-199) 07/19/21 05:50 LDL Cholesterol, Calc 45 mg/dL (-129) 07/19/21 05:50 VLDL Cholesterol 14 mg/dL 07/19/21 05:50 HDL Cholesterol 19 mg/dL (60-) L 07/19/21 05:50 LDL/HDL Ratio 2.4 (<4.4) 07/19/21 05:50 Cholesterol/HDL Ratio 4.1 (<4.4) 07/19/21 05:50 Lipase 42 U/L (22-51) 06/26/21 14:26 TSH 3.87 uIU/mL (0.34-5.60) 07/25/21 16:05 Free T4 0.97 ng/dL (0.58-1.64) 07/02/21 04:42 Cortisol AM Sample 6.1 ug/dL 07/05/21 05:31 Urine Color YELLOW 06/26/21 22:51 Urine Clarity CLEAR (CLEAR) 06/26/21 22:51 Urine pH 5.0 PH (5.0-7.5) 06/26/21 22:51 Ur Specific [place] 1.015 (1.002-1.030) 06/26/21 22:51 Urine Protein NEGATIVE mg/dL (NEGATIVE) 06/26/21 22:51 Urine Glucose (UA) NEGATIVE mg/dL (NEGATIVE) 06/26/21 22:51 Urine Ketones NEGATIVE mg/dL (NEGATIVE) 06/26/21 22:51 Urine Occult Blood NEGATIVE (NEGATIVE) 06/26/21 22:51 Urine Nitrite NEGATIVE (NEGATIVE) 06/26/21 22:51 Urine Bilirubin NEGATIVE (NEGATIVE) 06/26/21 22:51 Urine Urobilinogen 0.2 (NORMAL) E.U./dL (NORMAL) 06/26/21 22:51 Ur Leukocyte Esterase TRACE (NEGATIVE) H 06/26/21 22:51 Urine RBC 0-5 /HPF (0-5) 06/26/21 22:51 Urine WBC 4-5 /HPF (0-5) 06/26/21 22:51 Ur Squamous Epith Cells FEW Squamous (<= Few) 06/26/21 22:51 Urine Bacteria Few /HPF (None Seen) 06/26/21 22:51 Urine Casts 3-5 Hyaline Casts /LPF 06/26/21 22:51 Ur Microscopic Review INDICATED 06/26/21 22:51 Urine Culture Comments INDICATED 06/26/21 22:51 Nasal Adenovirus (PCR) NOT DETECTED 07/14/21 16:00 Nasal B. parapertussis DNA (PCR) NOT DETECTED 07/14/21 16:00 Nasal Coronavir 229E PCR NOT DETECTED 07/14/21 16:00 Nasal Coronavir HKU1 PCR NOT DETECTED 07/14/21 16:00 Nasal Coronavir NL63 PCR NOT DETECTED 07/14/21 16:00 Nasal Coronavir OC43 PCR NOT DETECTED 07/14/21 16:00 Nasal Enterovir/Rhinovir PCR NOT DETECTED 07/14/21 16:00 Nasal Influenza B PCR NOT DETECTED 07/14/21 16:00 Nasal Influenza A PCR NOT DETECTED 07/14/21 16:00 Nasal Parainfluen 1 PCR NOT DETECTED 07/14/21 16:00 Nasal Parainfluen 2 PCR NOT DETECTED 07/14/21 16:00 Nasal Parainfluen 3 PCR NOT DETECTED 07/14/21 16:00 Nasal Parainfluen 4 PCR NOT DETECTED 07/14/21 16:00 Nasal RSV (PCR) NOT DETECTED 07/14/21 16:00 Nasal Screen MRSA (PCR) NEGATIVE (NEGATIVE) 06/26/21 21:55 Nasal B.pertussis DNA PCR NOT DETECTED 07/14/21 16:00 Nasal C.pneumoniae (PCR) NOT DETECTED 07/14/21 16:00 Mk Human Metapneumo PCR NOT DETECTED 07/14/21 16:00 Nasal M.pneumoniae (PCR) NOT DETECTED 07/14/21 16:00 Nasal SARS-CoV-2 (PCR) NOT DETECTED 07/14/21 16:00 Last Dose Date 07/19/2021 07/19/21 05:50 Last Dose Time 0100 07/19/21 05:50 Vancomycin Trough 16.8 ug/mL (10.0-20.0) 07/15/21 15:30 Digoxin 1.4 ng/mL 07/19/21 05:50 - Procedures Procedures: Procedures RESPIRATORY VENTILATION, LESS THAN 24 CONSECUTIVE HOURS (01/11/20) Sepsis Event Note (H) - Evaluation Current Stage of Sepsis: Septic shock Possible source of Sepsis: positive: GI tract/intra-abdominal - Sepsis Criteria Sepsis Criteria: WBC count greater than 10% bands, SBP drop more than 40mHg, MAP less than 65 mmHg, SBP less than 90 mmHg, Renal: urine output less than 0.5ml/kg/hr for 2 hours or creatinine gr, Metabolic: lactate > 2 mmol/L
--- NOTE | 2021-07-31 00:18 | PROVIDER PROGRESS NOTE ---
Customer Service Trainer Note - Customer Service Trainer Note Customer Service Trainer Note: It was brought to my attention that the patient was unresponsive. Upon presentation at bedside patient was unresponsive to tactile or verbal stimuli. There were no spontaneous breath or heart sounds. Radial pulses were absent bilaterally. Pupils were fixed dilated and on responsive to light. There was no corneal reflex. Patient was pronounced at 20 3:44 PM on 07/30/2021. Next of kin sister Katie Massey was notified.
--- NOTE | 2021-07-31 00:18 | DISCHARGE SUMMARY ---
Discharge Summary Admit Date: 06/26/21 Discharge Date: 07/30/21 Discharging Provider: Shelia Mclean Primary Care Provider: Angelika Hines Condition at Discharge: Critical Discharge Disposition: 20 - DIAGNOSES Admission Diagnoses: Perforated duodenal ulcer Shock Lactic acidosis Acute renal insufficiency History of pulmonary embolism History of atrial fibrillation Anasarca Mild developmental delay Schizophrenia Hypothyroidism Discharge Diagnoses with Status of Each Condition: Acute respiratory failure requiring reintubation: Anasarca: Chronic. Patient Chronic diastolic heart failure: Chronic. Patient Perforated duodenal ulcer. Acute. s/p surgery/repair. Patient Hypothyroidism: Chronic. Stable. Patient History of atrial fibrillation: Chronic. Stable. Patient History of pulmonary embolism Schizophrenia: Chronic. Stable. Patient Iron deficiency anemia: Chronic. Stable. Patient Aspiration pneumonia: Acute. Patient Septic shock: Acute. Resolved. Patient Ileus following gastrointestinal surgery: Improved. Patient - HPI History of Present Illness: Per Dr Pang's HPI on consultation note of 06/27 This is a 81-year-old white female who lives in a halfway and has schizophrenia. She has a environmental monitoring technician named Henny. With her last admission in September 2020 the patient did not have a power of rotary peel oven tender. Social work had left a message with her behavioral health case manager Yfn Gil at that point in time to see if a power of rotary peel oven tender could be appointed. If not, the patient is considered independent with the ability to make her own medical decisions. She was brought in by EMS at 2:00 in the afternoon. She was diagnosed with a urinary tract infection on Thursday (today is Thursday) and is on antibiotics. She had abrupt onset of abdominal pain. In the ER temperature was 36.9. Heart rate 87. Blood pressure 142/120. Respirations 22 and she was 100% saturated on room air. The ER doctor found it difficult to get a history because of her cognitive deficits and her distress and pain. Pain seem to be in the epi gastrium. The abdomen was soft, nondistended. Diffuse moderate tenderness without rebound or guarding. She was in moderate distress, crying out in pain. The CT of the abdomen showed free air that was most likely perforated duodenal or gastric ulcer. Reactive colonic distention. Generalized third spacing of fluid indicated by ascites, effusions, anasarca. Chronic appearing left hip fracture. I am being asked to see her in the postoperative setting by Dr. Dobson who has taken this patient emergently to the operating room for a ruptured duodenal ulcer that ruptured posteriorly. She is undergone an exploratory laparotomy with mesh repair of a gastric perforation. Intraoperative blood loss was minimal. She was initially quite hypotensive but with fluid resuscitation they were able to bring her blood pressure up to that she made 60 cc an hour of urine. Dr. Dobson is keeping her on the ventilator overnight because of her serious condition. Plan is to reevaluate her in the morning with extubation planned. She will be started on TPN. She was admitted in January 2020 here for a UTI complicated by elevated troponins. Troponins peaked at over 400 and then went back down. EKG showed flattened T waves. Echocardiogram with January admit showed overall left ventricular systolic function that is normal with ejection fraction 55 to 60%. No regional wall motion abnormalities. Impaired relaxation consistent with grade 1 diastolic dysfunction. New biatrial enlargement seen. No significant valvular heart disease. Echocardiogram 1 month prior to her January admission was in December 2019. Her ejection fraction was 65 to 70%. No regional wall motion abnormalities. Right ventricle normal. RVSP was 43 mmHg. She was in sinus rhythm with the December 2019 echo, in the January 2020 echo. EKGs with the January 2020 admission were also sinus rhythm. At that time, she was seen in follow-up with cardiology. They felt that "she had the heart of a 80-year-old" and that there was no cause for worry or alarm. Coreg was stopped. She had already been on Lasix because of chronic leg edema. Subsequent to this, they evaluated the need for Lasix for leg edema. Also the evaluated the need for continuous anticoagulation in the face of a DVT and PE from 21 years ago. 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 They postulated that she developed a DVT with PE because of the new sedentary lifestyle. She been on Coumadin from that point on. However, she had significant knee pain that was really bothersome and was unable to take anything but Tylenol for pain control. They opted to take her off the Coumadin so that this would allow her to do nonsteroidal therapy to control her knee pain. She was not felt to need l ifelong anticoagulation. They were also hoping to help her recurrent UTIs. Because of the knee pain she was having less and less ambulation and she was becoming incontinent of urine or not wanting to go pee. So she was getting recurrent UTIs. It also does not help that she hates to drink water. All sorts of things to try to get her to drink water. She refuses so they have been giving her lots of Pedialyte. The leg edema was diagnosed as lymphedema and she underwent lymphedema therapy with leg wraps, compression hose. She ended up on chronic Velcro wraps. And because her legs were doing so well the Lasix was discontinued. Her care provider postulates that the leg wraps were compressing the fluid out of her legs into her upper legs and her lower abdominal wall. Her lower abdominal wall seems to be developing edema as well. The edema then progressed to her legs. She seemed to be having recurrence of leg edema. She was not feeling well. Lasix 20 mg was started. Then a few days prior to September 2020 admission, she was seen by her provider where a chest x-ray showed pulmonary edema and it was increased to 40 mg. In spite of that she did not have increased urine output. Usually she seems to be sensitive to diuretics and will pee quite a bit. With this she did not have improved output. Edema and shortness of breath finally got to the point that shortness of breath was getting worse and worse. With the admission in September she was felt to have acute on chronic diastolic heart failure with new onset atrial fibrillation. Duplex was obtained of her lower extremities to make sure she did not have DVTs. During that stay, she had bradycardia and hypothermia of unclear etiology. TSH was normal. She was not felt to be infected. She was not on any AV jill blocking agents. Pauses started increasing with more frequency and went up to 7 seconds. Patient was asymptomatic. During those episodes she was not hypothermic. Pacemaker was discussed. The patient makes her own medical decisions. No power of rotary peel oven tender. The patient's sister is Hortencia Massey who can be reached at [phone]. The patient was transferred to [place] for a pacemaker. We do not have any of those records, but on today's CAT scan, there is a pacemaker in place. - HOSPITAL COURSE Hospital Course: Patient underwent an exploratory laparotomy for repair of duodenal ulcer perforation on 06/26/[address] Aline Dobson. She had peritonitis as a result of the perforation and was placed on cefepime, Flagyl and Diflucan. The patient remained intubated and was transferred to the ICU. As a result the hospitalist service was consulted for medical management. The patient was also placed on a pressor Levophed for potential septic shock. Gram stain on peritoneal fluid obtained on the day of surgery 06/26/2021 initially showed gram-positive cocci however there was no growth on cultures by the final report. Patient was extubated for the first time on July 05, 2021 however she was reintubated again on July 10, 2021 due to significantly increased secretions and difficulty managing her secretions. She had an abdominal x-ray done on 07/09/2021. For this image she was administered Gastrografin contrast through an enteric tube. This was a Gastrografin challenge to assess for a leak. There was no evidence of extraluminal contrast material noted. On July 17, 2021 and July 18, 2021 patient had a couple of bowel movements. These were the first bowel movement since her admission. She was extubated for the second time on July 17, 2021. Tube feeds were also initiated on July 17, 2020 1 in the morning. However the patient aspirated by the evening of July 17, 2021 and required reintubation for the third time. Tube feeds were stopped and TPN was resumed. It appeared the patient was going into septic shock with systolic blood pressures as low as 80. As a result she was put back on a pressor Levophed. She was also placed on Flagyl for aspiration. Levaquin was subsequently added. The patient was febrile for 3 days with continuously dropping white blood cell counts to as low as 3.9. Blood cultures obtained on 07/19/21. These grew yeast. Consequently Diflucan was added to the regimen. The patient was maintained on the above antimicrobials until symptoms of infection specifically fever resolved and patient's white blood cell count normalized. The antimicrobials were discontinued on July 25, 2021. Significantly worsening anasarca. In an attempt to address this TPN was stopped from July 17 12/28/2020 2 July 24, 2021. This is because the patient was receiving almost 2 L of fluid in the form of TPN. During this time her Lasix was increased to 6 mg IV twice daily. It post a significant challenge balancing providing nutrition, managing patient's anasarca and maintaining intravascular volume/adequate blood pressure An abdominal x-ray done on July 23, 2021 showed Gastrografin contrast of July 09, 2021 still present Which was compatible with delayed transit. Through the cause of the patient's hospital stay her sister Katie Massey and her caregiver Henny were constantly updated on the patient's clinical condition/prognosis was thought to be poor. It was highlighted that given the patient's difficulty managing her secretions she was at risk of future/ongoing aspirations, consequently she was requiring ventilation support indefinitely. In order to continue her care she would need a tracheostomy. The above-mentioned parties wanted to explore every option and requested transf er to another facility for higher level of care, a second opinion and if indicated a trache and PEG. Attempts to transfer the patient over several days was unsuccessful. A second opinion was obtained from another surgeon Rj Adrian). He recommended discontinuing any opiates and starting the patient on gut motility agent. This was done and the patient was started on Amitiza while also being maintained on Reglan. Placement of a trach and PEG was conditional on adventism of got motility. In the subsequent days the patient had bowel movements. However at large, issues of concern were the question of rehabilitation, how much effort will be required for the process of recovery outside of the hospital and the feasibility of it. It was estimated that she will need a minimum of 3-6 months recovery. After a conversation by Dr. Aline Dobson with the patient's niece Larissa (a nurse) on 07/29/21, Larissa subsequently discussed with her family and they decided to pursue comfort measures. All active treatment and vent support was withdrawn on 07/30/2021 afternoon. At night on 07/30/2021 it was brought to my attention that the patient was unresponsive. Upon presentation at bedside patient was unresponsive to tactile or verbal stimuli. There were no spontaneous breath or heart sounds. Radial pulses were absent bilaterally. Pupils were fixed dilated and on responsive to light. There was no corneal reflex. Patient was pronounced at 23:44 PM on 07/30/2021. Next of kin sister Katie Massey was notified. - ALLERGIES Allergies/Adverse Reactions: Allergies Allergy/AdvReac Type Severity Reaction Status Date / Time Penicillins Allergy Unknown Verified 06/26/21 14:07 - MEDICATIONS Home Medications: Ambulatory Orders Medication Instructions Recorded Confirmed Levothyroxine [Synthroid] 75 mcg PO QDAC 07/22/19 06/27/21 Simvastatin [Zocor] 20 mg PO QPM 07/22/19 06/27/21 Torsemide 40 mg PO DAILY 07/22/19 06/27/21 Potassium Chloride 10 meq PO DAILY 01/11/20 06/27/21 EPINEPHrine [Epipen Jr] 0.3 mg IM ONCE PRN 04/12/20 06/27/21 traZODone [Desyrel] 200 mg PO QPM 04/12/20 06/27/21 Meloxicam [Mobic] 7.5 mg PO BID 10/21/20 06/27/21 QUEtiapine [SEROquel] 100 mg PO BID 10/21/20 06/27/21 - LABS Result Diagrams: 07/29/21 04:58 07/30/21 07:34 - SEPSIS Current Stage of Sepsis: Septic shock Possible source of Sepsis: GI tract/intra-abdominal Sepsis Criteria: WBC count greater than 10% bands, SBP drop more than 40mHg, MAP less than 65 mmHg, SBP less than 90 mmHg, Renal: urine output less than 0.5ml/kg/hr for 2 hours or creatinine gr, Metabolic: lactate > 2 mmol/L - TIME SPENT Time Spent in Discharge (Minutes): 35
--- NOTE | 2021-07-31 00:19 | Discharge Plan ---
Discharge Plan Problem Reviewed?: Yes Disposition: 20 Condition: Critical No Smoking: If you smoke, Please STOP! Call for help.
== END 2021-07-30 23:44 | disposition expired | DRG 326 ==
LOC: ED 13:52 → ICU 18:14
PROVIDERS: ADMIT Surgery; ATTEND Internal Medicine
PROC: 0DQ90ZZ Repair Duodenum, Open Approach (ICD-10-PCS; 2021-06-26)
PROC: 0DU907Z Supplement Duodenum with Autologous Tissue Substitute, Open Approach (ICD-10-PCS; 2021-06-26)
PROC: 0W9G00Z Drainage of Peritoneal Cavity with Drainage Device, Open Approach (ICD-10-PCS; 2021-06-26)
PROC: 0BH17EZ Insertion of Endotracheal Airway into Trachea, Via Natural or Artificial Opening (ICD-10-PCS; 2021-06-26)
PROC: 02HV33Z Insertion of Infusion Device into Superior Vena Cava, Percutaneous Approach (ICD-10-PCS; 2021-06-26)
PROC: 5A1955Z Respiratory Ventilation, Greater than 96 Consecutive Hours (ICD-10-PCS; principal; 2021-06-26 19:00)
PROC: 02HV33Z Insertion of Infusion Device into Superior Vena Cava, Percutaneous Approach (ICD-10-PCS; 2021-07-10)
DX: K26.5 Chronic or unspecified duodenal ulcer with perforation (principal); K26.1 Acute duodenal ulcer with perforation; I50.30 Unspecified diastolic (congestive) heart failure; K65.9 Peritonitis, unspecified; K65.1 Peritoneal abscess; J69.0 Pneumonitis due to inhalation of food and vomit; F20.9 Schizophrenia, unspecified; T81.12XA Postprocedural septic shock, initial encounter; I48.91 Unspecified atrial fibrillation; R62.50 Unspecified lack of expected normal physiological development in childhood; A41.9 Sepsis, unspecified organism; E43 Unspecified severe protein-calorie malnutrition; G93.41 Metabolic encephalopathy; J18.9 Pneumonia, unspecified organism; J96.02 Acute respiratory failure with hypercapnia; J96.01 Acute respiratory failure with hypoxia; U07.1 COVID-19; I50.32 Chronic diastolic (congestive) heart failure; I48.20 Chronic atrial fibrillation, unspecified; T81.44XA Sepsis following a procedure, initial encounter; K56.7 Ileus, unspecified; N39.0 Urinary tract infection, site not specified; J90 Pleural effusion, not elsewhere classified; E87.2 Acidosis; F20.81 Schizophreniform disorder; R60.1 Generalized edema; I11.0 Hypertensive heart disease with heart failure; E03.9 Hypothyroidism, unspecified; Z86.711 Personal history of pulmonary embolism; D50.9 Iron deficiency anemia, unspecified; F09 Unspecified mental disorder due to known physiological condition; F03.90 Unspecified dementia, unspecified severity, without behavioral disturbance, psychotic disturbance, mood disturbance, and anxiety; R32 Unspecified urinary incontinence; Z95.0 Presence of cardiac pacemaker; I89.0 Lymphedema, not elsewhere classified; Z79.899 Other long term (current) drug therapy; I25.2 Old myocardial infarction; N28.9 Disorder of kidney and ureter, unspecified; K59.09 Other constipation; E87.70 Fluid overload, unspecified; Z78.1 Physical restraint status; Y95 Nosocomial condition; Z86.718 Personal history of other venous thrombosis and embolism
CPT/HCPCS: 36415; 36600; 71045; 74018; 74177; 74250; 80048; 80053; 80061; 80076; 80162; 80202; 81001; 82310; 82330; 82533; 82803; 83540; 83605; 83690; 83735; 83880; 84100; 84132; 84134; 84439; 84443; 84466; 84478; 84484; 85025; 85027; 86140; 87040; 87070; 87075; 87086; 87150; 87205; 87631; 93005; 93306; 94002; 94003; 94640; 94660; 96374; 96376; 99285; A6250; A9270; J0131; J1170; J1650; J1750; J2060; J2765; J2997; J3010; J3370; J3490; J7040; J7120; J8499; P9047; Q9963; Q9967; 0202U; 81003; 83721; 94770